=== PATIENT | female | born 1940 | race Caucasian/White ===

== ENCOUNTER 2016-10-06 08:49 | Emergency (ER) | payer OTHER ==
[~2016-10-06] VITALS: Ht 172.7 cm; Wt 73.7 kg
[~2016-10-06 08:49] MED LIST: ASPI81TA28 PO; ATEN-173 PO; BACL1TAB PO; CALC-354 PO; CLOP1TAB15 PO; EZET10TA47 PO; MULTCHW PO; PRAV40TA2 PO; PRLSR20 PO; RAMI5CAP PO
[2016-10-06 08:54] VITALS: TEMP 36.5; Ht 172.7 cm; Wt 73.7 kg
--- NOTE | 2016-10-06 09:29 | DIAGNOSTIC IMAGING REPORT ---
LEFT FOOT 3 VIEWS. HISTORY: left toe and foot pain a04b COMPARISON: None. FINDINGS: Transverse fracture through the proximal shaft of the proximal phalanx at the fourth toe. This demonstrates mild lateral angulation. Soft tissue swelling within the fourth toe. 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 No radiopaque foreign bodies. Plantar heel spur. Dorsal soft tissue swelling within the forefoot. IMPRESSION: Left fourth toe fracture. Electronically signed by: Ty William M.D. 10/06/2016 9:27 AM Dictated Date/Time: 10/06/2016 9:25 AM
[2016-10-06] MEDS ORDERED: CYCL10TA7 PO (09:39)
--- NOTE | 2016-10-06 10:00 | EMERGENCY ROOM VISIT NOTE ---
ED Visit Note First contact with patient: 09:26 CHIEF COMPLAINT: Left fourth toe pain HISTORY OF PRESENT ILLNESS: Patient is a 76-year-old white female who presents to the emergency department for evaluation of left fourth toe pain. She states that she was walking down the stairs in socks yesterday when her foot slipped. She states that she hit her foot on the post on the stairs and the post went between her third and her fourth toes, and she notes pain, swelling and bruising in her fourth toe. She applied ice last evening. She is able to bear weight keeping most of her weight back in her heel. She did not note any bleeding. She rates her discomfort a 6/10. REVIEW OF SYSTEMS: Review of systems as per HPI. All other systems reviewed were negative. At least 6 systems reviewed. PMH: Electronic medical records are reviewed and summarized as above/below. See Problem List. SOCIAL HISTORY: Patient lives at home. Smoker. PHYSICAL EXAM: Vital Signs: Reviewed Nurse's notes. There was some dried blood in the web space between the third and the fourth toe which was cleansed with saline, there was no obvious skin injury or laceration noted. The fourth toe is tender to palpation, swollen and slightly ecchymotic. Foot is neurovascularly intact. EMERGENCY DEPARTMENT COURSE: An X-Ray of the toe shows a fracture of the proximal phalanx of the left fourth toe. Patient was educated on chandler taping but does not feel comfortable to do that at this time. She is placed in a postoperative shoe. She declined prescription analgesia. Differential diagnosis includes fracture, dislocation, laceration, contusion, sprain, among others. ] LEFT FOOT 3 VIEWS. HISTORY: left toe and foot pain a04b COMPARISON: None. FINDINGS: Transverse fracture through the proximal shaft of the proximal phalanx at the fourth toe. This demonstrates mild lateral angulation. Soft tissue swelling within the fourth toe. 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 No radiopaque foreign bodies. Plantar heel spur. Dorsal soft tissue swelling within the forefoot. IMPRESSION: Left fourth toe fracture. Problem List Medical Problems: (1) Acute constipation Status: Resolved (2) Chronic Obstructive Pulmonary Disease, Unspecified Status: Chronic (3) Essential (Primary) Hypertension Status: Chronic (4) Gastro-Esophageal Reflux Disease Without Esophagitis Status: Chronic (5) Heart attack Status: Resolved (6) Pure Hypercholesterolemia Status: Chronic Surgical Problems: (1) H/O heart artery stent Status: Resolved (2) History of hysterectomy Status: Resolved (3) Presence Of Aortocoronary Bypass Graft Status: Resolved Current/Historical Medications Scheduled Aspirin (Aspirin Ec), 81 MG PO Q2D Atenolol (Tenormin), 12.5 MG PO BID Calcium Carbonate-Cholecalcife (Caltrate 600+D), 1 TAB PO QAM Clopidogrel (Plavix), 75 MG PO QAM Ezetimibe (Zetia), 10 MG PO DAILY AT 1200 Multiple Vitamins W/ Minerals (Centrum Silver), 1 TAB PO QAM Omeprazole (Prilosec), 20 MG PO QAM Pravastatin Sodium (Pravastatin Sodium), 40 MG PO HS Ramipril (Ramipril), 5 MG PO QAM Scheduled PRN Cyclobenzaprine HCl (Cyclobenzaprine HCl), 10 MG PO TID PRN for Muscle Spasms Allergies Coded Allergies: No Known Allergies (Verified , `, 10/06/16) Vital Signs Date Time Temp Pulse Resp B/P Pulse Ox O2 Delivery O2 Flow Rate FiO2 10/06/16 10:20 70 18 143/78 98 Room Air 10/06/16 08:54 36.5 62 16 145/73 95 Room Air Departure Information Impression Primary Impression: Toe fracture, left Referrals Jasson Denney M.D. (PCP) Patient Instructions My [facility] Additional Instructions Acetaminophen(Tylenol) may be used for fever or pain. Use 1000mg every six hours as needed. Avoid using more than 3000mg in a 24 hour period. This medication can be taken if you need to drive, work, or perform activities which may be dangerous when taking narcotic pain medication. Ice compresses for 20 minutes at a time four times daily for 2-3 days. Use the postoperative shoe as instructed. Rest and elevate your injury. Continue current medications. Return to the ER immediately for any numbness, tingling, severe pain, extreme swelling in the extremity or as needed. Follow-up with your primary care provider or with orthopedic surgery for further care and management if you to not feel that your symptoms are improving.
[2016-10-06 10:20] VITALS: BP 143/78; PULSE 70; O2SAT 98
--- NOTE | 2016-10-06 10:20 | EMERGENCY ROOM VISIT NOTE ---
ED Visit Note First contact with patient: 09:26 76-year-old female with pain in her left foot was fully evaluated by Nava Gomez PA-C. Please see her note. I also independently evaluated the patient.
== END 2016-10-06 10:20 | disposition home or self-care (01) ==
LOC: C.EDB 08:50 → C.EDA 10:20
DX: S92.512A Displaced fracture of proximal phalanx of left lesser toe(s), initial encounter for closed fracture (principal); W22.8XXA Striking against or struck by other objects, initial encounter; I10 Essential (primary) hypertension; E78.00 Pure hypercholesterolemia, unspecified; J44.9 Chronic obstructive pulmonary disease, unspecified; K21.9 Gastro-esophageal reflux disease without esophagitis; F17.200 Nicotine dependence, unspecified, uncomplicated; Z98.61 Coronary angioplasty status; Z95.1 Presence of aortocoronary bypass graft; Z90.710 Acquired absence of both cervix and uterus; Z79.82 Long term (current) use of aspirin; Z79.899 Other long term (current) drug therapy

== ENCOUNTER 2019-07-07 10:30 | Inpatient (IN) ==
[2019-07-07] MEDS ORDERED: ONDANSETRON INJ 2 MG/ML 2 ML VIAL IV STA (10:41)
[2019-07-07] MEDS ORDERED: MoRPHine SULFATE 4 MG/ML 1 ML CARP\\VIAL IV STA (10:41)
[2019-07-07 10:49] LABS: Basophils # (auto) 0.04 K/uL (0-0.2); Basophils % (auto) 0.4 %; Eosinophils # (auto) 0.29 K/uL (0-0.5); Eosinophils % (auto) 2.9 %; Hematocrit (blood only) 39.7 % (37-47); Hemoglobin 13.2 g/dL (12.0-16.0); Immature Granulocytes # (auto) 0.03 K/uL (0.00-0.02); Immature Granulocytes % (auto) 0.3 %; Lymphocytes # (auto) 1.67 K/uL (1.2-3.4); Lymphocytes % (auto) 16.7 %; Mean Corpuscular Hemoglobin 30.1 pg (25-34); Mean Corpuscular Hgb Conc 33.2 g/dL (32-36); Mean Corpuscular Volume 90.6 fL (80-100); Mean Platelet Volume 10.4 fL (7.4-10.4); Monocytes # (auto) 0.66 K/uL (0.11-0.59); Monocytes % (auto) 6.6 %; Neutrophils # (auto) 7.32 K/uL (1.4-6.5); Neutrophils % (auto) 73.1 %; Platelet Count 227 K/uL (130-400); RDW Coefficient of Variation 14.2 % (11.5-14.5); Red Blood Count 4.38 M/uL (4.2-5.4); White Blood Count 10.01 K/uL (4.8-10.8)
[2019-07-07 11:06] LABS: Albumin Level 3.7 gm/dl (3.4-5.0); BUN Creatinine Ratio 18.6 (10-20); Calcium 9.6 mg/dl (8.5-10.1); Creatinine Clr Calc Pharmacy 37.6 ml/min; Est GFR (African American) 50.8; Est GFR (Non-African American) 43.8; Potassium 4.2 mmol/L (3.5-5.1)
[2019-07-07 11:08] LABS: Bilirubin,Total 0.3 mg/dl (0.2-1); Globulin 3.8 gm/dl (2.5-4.0); Total Protein 7.5 gm/dl (6.4-8.2)
[2019-07-07] MEDS ORDERED: SODIUM CHLORIDE 0.9% 1000ML 1,000 ML IV ONE (11:09)
[2019-07-07] MEDS ORDERED: MoRPHine SULFATE 4 MG/ML 1 ML CARP\\VIAL IV PRN (11:09)
[2019-07-07] MEDS ORDERED: OPTIRAY 320 125ml IV PRN (11:50)
[2019-07-07] MEDS ORDERED: ESMOLOL / NSS 2,500 MG/250 ML BAG IV SCH (11:53)
[2019-07-07] MEDS ORDERED: SODIUM CHLORIDE 0.9% 250 ML IV PRN ×2 (12:01→12:09)
--- NOTE | 2019-07-07 12:10 | CT Scan Report ---
CT ANGIOGRAPHY CHEST WITHOUT AND WITH CONTRAST CLINICAL HISTORY: Chest and abdominal pain. Possible aortic dissection. COMPARISON STUDY: No previous studies for comparison. TECHNIQUE: Unenhanced images were obtained to the thorax. CT angiography was then performed a dynamic helical fashion during intravenous administration of 120 cc of Optiray 320. MIP images were acquired A dose lowering technique was utilized adhering to the principles of ALARA. CT DOSE: FINDINGS: Thyroid: Imaged portions of the thyroid gland are normal in appearance. Thoracic aorta: There is no evidence of acute thoracic aortic hematoma. There are no intimal flaps to indicate thoracic aortic dissection. Pulmonary vasculature: The pulmonary trunk is normal in caliber. There are no central filling defects identified to suggest pulmonary embolus. Note that this examination was not protocoled for the evalu ation of pulmonary emboli. HEART: There are coronary artery calcifications. There is no significant pericardial effusion. Lungs and pleural spaces: There is no evidence of pneumothorax. There is evidence for pulmonary emphy sema. There is minimal dependent atelectasis. There are no suspicious pulmonary masses. There are a f ew scattered pulmonary micronodules. In addition there is a solid 3 mm left lower lobe pulmonary nodu le. In a low-risk patient, no further follow-up is indicated Mediastinum: There is no evidence of mediastinal lymphadenopathy Evelin: There is no evidence of pathologic hilar adenopathy Axilla: There is no evidence of pathologic axillary lymphadenopathy Upper abdomen: There is a large left-sided retroperitoneal hemorrhage. This is secondary to a ruptur ed abdominal aortic aneurysm which will be discussed in a separate CT scan report of the abdomen and pelvis. Skeletal structures: There are no lytic or blastic osseous lesions. IMPRESSION: 1. Large left-sided retroperitoneal hematoma. This is secondary to a ruptured abdominal aortic aneury sm. This finding will be discussed in a separate CT scan report of the abdomen and pelvis. 2. No evidence of thoracic aortic aneurysm or dissection 3. Hiatal hernia 4. No evidence of acute pulmonary embolism. 5. Pulmonary emphysema ACT 112: Negative or not required by law. Electronically signed by: Santosh Myles M.D. 07/07/2019 12:09 PM
[2019-07-07] MEDS ORDERED: HEPARIN (PORCINE) 1000 UNIT/ML 10 ML (CATH LAB USE ONLY) ONE (12:15)
[2019-07-07] MEDS ORDERED: GELATIN SPONGE SZ 100 ONE (12:15)
[2019-07-07] MEDS ORDERED: THROMBIN 5000 UNITS KIT ONE (12:15)
[2019-07-07] MEDS ORDERED: CEFAZOLIN 250 MG/ML 1 GM VIAL ONE ×2 (12:15→13:16)
--- NOTE | 2019-07-07 12:16 | CT Scan Report ---
CT ANGIOGRAPHY OF THE ABDOMEN AND PELVIS CLINICAL HISTORY: pain L sided worse than R,+smoker, LA>3 COMPARISON STUDY: No previous studies for comparison. TECHNIQUE: Helical axial images of the abdomen and pelvis were obtained during arterial phase followi ng intravenous injection 120 cc Optiray 320 IV. Sagittal and coronal reconstructions were viewed as w ell as maximal intensity projections on an independent 3-D workstation. Automated exposure control wa s utilized for the study. A dose lowering technique was utilized adhering to the principles of ALARA . FINDINGS: Please note that the CTA of the chest will be reported separately. Note is made of a large bilobed infrarenal abdominal aortic aneurysm with rupture. The largest component of the aneurysm analisa ures 7.7 x 6.6 cm. Aneurysmal dilatation involves the near entirety of the infrarenal abdominal aorta and begins 8 mm distal to the takeoff of an accessory right renal artery. 2 right and 2 left renal a rteries are present. Extensive plaque at the origin of several renal arteries make evaluation for frantz nosis difficult. A large left retroperitoneal hematoma is noted. There is no active extravasation. Th e hematoma displaces the left kidney and extends from the hemidiaphragms to the upper pelvis. A linea r tract of contrast within the left posterolateral aspect of the aneurysm sac may reflect the site fo r leak. There is tortuosity of the infrarenal abdominal aorta just distal to the takeoff of the renal arteries. There is moderate bilateral iliac plaque without significant stenosis. The caliber of the bilateral common iliac arteries is normal. The bilateral common femoral arteries are patent. Arterial phase images of the liver, spleen, adrenal glands and pancreas are unremarkable although the left adrenal gland is displaced by hemorrhage. There is a 5 mm right renal calculus. Sigmoid diverti culosis is noted without evidence for acute diverticulitis. There are no suspicious osseous lesions. IMPRESSION: Ruptured infrarenal abdominal aortic aneurysm, measuring 7.7 x 6.6 cm, with extensive le ft retroperitoneal hemorrhage. Aneurysmal dilatation involves the near entirety of the infrarenal abd ominal aorta and begins 8 mm distal to the takeoff of an accessory right renal artery. Tortuosity of the abdominal aorta at this level. Urgent Vascular surgery consultation is recommended. Findings disc ussed with Dr. Corral at time of dictation. ACT 112: Negative or not required by law. Electronically signed by: Lyndon Shah M.D. 07/07/2019 12:15 PM
--- NOTE | 2019-07-07 12:23 | Anesthesiology Consultation ---
Date of Service July 07, 2019 Assessment & Plan ASA [id number] Proposed Anesthesia Anesthesia Type: General Anesthesia Line Insertion: Arterial line and Central Venous Catheter Additional Comments: emergency case. pt unconcious. no time to contact famiy History Surgery Operation Date: 07/07/19 11:55 Proposed Procedures p Endovascular Aneurysm Repair - Richard Cabrera MD Height/Weight Height: 5 ft 7 in Weight: 71.1 kg Allergies Allergy/AdvReac Type Severity Reaction Status Date / Time No Known Allergies Allergy Unknown ` Verified 07/07/19 10:57 Medications Home Medications Medication Instructions Recorded Confirmed Last Taken alendronate 70 mg PO DAMON 07/07/19 07/07/19 Unknown aspirin 81 mg PO DAILY 07/07/19 07/07/19 Unknown atenolol 12.5 mg PO BID 07/07/19 07/07/19 Unknown clopidogrel 75 mg PO DAILY 07/07/19 07/07/19 Unknown cyclobenzaprine 10 mg PO TID PRN 07/07/19 07/07/19 Unknown duloxetine 30 mg PO DAILY 07/07/19 07/07/19 Unknown ezetimibe 10 mg PO DAILY 07/07/19 07/07/19 Unknown hcganftzofqx-nxbw-ccelb acid 1 tab PO DAILY 07/07/19 07/07/19 Unknown [Centrum Women] pantoprazole 20 mg PO DAILY 07/07/19 07/07/19 Unknown pravastatin 40 mg PO HS 07/07/19 07/07/19 Unknown ramipril 5 mg PO DAILY 07/07/19 07/07/19 Unknown Active Medications Generic Name Dose Route Start Last Admin Trade Name Freq PRN Reason Stop Dose Admin Esmolol HCl 2,500 mg in 250 mls @ 0 mls/hr 07/07/19 11:53 07/07/19 12:15 Brevibloc IV 08/06/19 11:52 0 mcg/kg/min .Q0M LEON 0 mls/hr Titration Protocol 0 MCG/KG/MIN Ioversol 120 ml 07/07/19 11:50 07/07/19 11:50 Optiray 320 125ml IV 07/11/19 11:49 120 ml ONCE PRN Administration Interaction Checking Past Medical History Medical History Heart attack (Resolved) Past Surgical History Surgical History H/O heart artery stent (Resolved) History of hysterectomy (Resolved) Social History Smoking Status: Current every day smoker Review of Systems unable to obtain. emergency. pt unconcious Physical Exam Vital Signs Last Vital Signs Temp 36.2 C L 07/07/19 10:38 Pulse 67 07/07/19 11:31 Resp 16 07/07/19 11:31 BP 94/58 L 07/07/19 11:30 Pulse Ox 97 07/07/19 11:31 Constitutional + acute distress and + altered mental status ENMT Mouth: + dentures Mallampati Class: Other (Unable to assess) Respiratory + respiratory distress Cardiovascular Rate/Rhythm: regular rate Testing Laboratory Results 07/07/19 10:00 07/07/19 10:00
[2019-07-07] MEDS ORDERED: LIDOCAINE HCL 1% 20 ML VIAL ONE (12:27)
[2019-07-07] MEDS ORDERED: fentaNYL citrate 100 MCG/2 ML VIAL ONE ×2 (12:28→14:16)
[2019-07-07] MEDS ORDERED: MIDAZOLAM HCL 1 MG/ML 2ML VIAL ONE ×2 (12:34→14:51)
--- NOTE | 2019-07-07 12:48 | Emergency Department Note ---
Entered by Markell Mcallister acting as a scribe for Nael Corral MD History of Present Illness General Chief complaint: Flank Pain Time Seen by Provider: 07/07/19 10:33 Source: patient Limitations: no limitations History of Present Illness Onset (ago): hour(s) 4 Location: back Radiation: extremity (bilateral lower) Pain Consistency: + constant Maximum Pain Intensity: 10 Quality: + sharp Associated symptoms: + denies other symptoms (blood in urine, blood in stool, falls, trauma) and + diaphoresis; no fever/chills Treatments prior to arrival: none The patient is a 79 year-old white female w/ PMHx heart attack, s/p stent placement, s/p hysterectomy, who presents to the ED w/ CC of constant and sharp low back pain beginning 4 hours ago. The patient states the pain radiates to her legs. She states she has had back pain before but states it has never been this severe. She notes she produced a bowel movement this morning. She states she has been sweating. She notes she did not take any pain medications. The patient denies recent falls, trauma, urinary symptoms, blood in urine, blood in stool, fevers, and chills. She notes she smokes. She states she takes blood thinners. Home Medications Home Medications Medication Instructions Recorded Confirmed Type alendronate 70 mg PO DAMON 07/07/19 07/07/19 History aspirin 81 mg PO DAILY 07/07/19 07/07/19 History atenolol 12.5 mg PO BID 07/07/19 07/07/19 History clopidogrel 75 mg PO DAILY 07/07/19 07/07/19 History cyclobenzaprine 10 mg PO TID PRN 07/07/19 07/07/19 History duloxetine 30 mg PO DAILY 07/07/19 07/07/19 History ezetimibe 10 mg PO DAILY 07/07/19 07/07/19 History rzqikzujrxlr-efbg-fsvrf acid 1 tab PO DAILY 07/07/19 07/07/19 History [Centrum Women] pantoprazole 20 mg PO DAILY 07/07/19 07/07/19 History pravastatin 40 mg PO HS 07/07/19 07/07/19 History ramipril 5 mg PO DAILY 07/07/19 07/07/19 History Allergies Allergy/AdvReac Type Severity Reaction Status Date / Time No Known Allergies Allergy Unknown ` Verified 07/07/19 10:57 Past Med/Surg History Medical History Heart attack (Resolved) Surgical History H/O heart artery stent (Resolved) History of hysterectomy (Resolved) Social History Feels Safe at Home: Yes Smoking Status: Current every day smoker Review of Systems See HPI for pertinent positives & negatives. and A total of 10 systems reviewed and were otherwise negative Physical Exam Vital Signs Vital Signs - 24 hr 07/07/19 10:34 07/07/19 10:38 07/07/19 10:40 Temperature 36.2 C L Temperature Source Oral Pulse Rate 68 69 68 Pulse Rate [Apical] Pulse Rate from SpO2 Sensor 68 69 Respiratory Rate 18 18 17 Blood Pressure 140/82 140/82 Blood Pressure [Right Arm] Blood Pressure Mean 97 101 Blood Pressure Mean [Right Arm] Pulse Oximetry 100 98 100 Oxygen Delivery Method Room Air Room Air Room Air Oxygen Flow Rate Fraction of Inspired Oxygen SaO2/FiO2 Ratio Sepsis Recent Fever Within 48 Hours No Sepsis New/Unexplained Change in Mental Status No Sepsis Action Taken by Nursing No Action Required 07/07/19 10:47 07/07/19 11:00 07/07/19 11:01 Temperature Temperature Source Pulse Rate 71 71 Pulse Rate [Apical] Pulse Rate from SpO2 Sensor 71 Respiratory Rate 18 16 Blood Pressure 100/72 Blood Pressure [Right Arm] Blood Pressure Mean 77 Blood Pressure Mean [Right Arm] Pulse Oximetry 98 91 Oxygen Delivery Method Room Air Room Air Oxygen Flow Rate Fraction of Inspired Oxygen SaO2/FiO2 Ratio Sepsis Recent Fever Within 48 Hours Sepsis New/Unexplained Change in Mental Status Sepsis Action Taken by Nursing 07/07/19 11:29 07/07/19 11:30 07/07/19 11:31 Temperature Temperature Source Pulse Rate 72 73 67 Pulse Rate [Apical] Pulse Rate from SpO2 Sensor 77 73 66 Respiratory Rate 19 17 16 Blood Pressure 94/56 L 94/58 L Blood Pressure [Right Arm] Blood Pressure Mean 61 63 Blood Pressure Mean [Right Arm] Pulse Oximetry 91 96 97 Oxygen Delivery Method Room Air Room Air Room Air Oxygen Flow Rate Fraction of Inspired Oxygen SaO2/FiO2 Ratio Sepsis Recent Fever Within 48 Hours Sepsis New/Unexplained Change in Mental Status Sepsis Action Taken by Nursing 07/07/19 11:53 07/07/19 12:00 07/07/19 12:01 Temperature Temperature Source Pulse Rate 67 68 68 Pulse Rate [Apical] Pulse Rate from SpO2 Sensor 68 69 68 Respiratory Rate 13 16 18 Blood Pressure 128/65 139/67 Blood Pressure [Right Arm] Blood Pressure Mean 86 97 Blood Pressure Mean [Right Arm] Pulse Oximetry 99 99 99 Oxygen Delivery Method Nasal Cannula Nasal Cannula Nasal Cannula Oxygen Flow Rate 2 2 2 Fraction of Inspired Oxygen SaO2/FiO2 Ratio Sepsis Recent Fever Within 48 Hours Sepsis New/Unexplained Change in Mental Status Sepsis Action Taken by Nursing 07/07/19 12:09 07/07/19 12:15 07/07/19 12:16 Temperature Temperature Source Pulse Rate 70 68 70 Pulse Rate [Apical] Pulse Rate from SpO2 Sensor 68 Respiratory Rate 21 19 21 Blood Pressure 114/57 L 57/36 L 51/36 L Blood Pressure [Right Arm] Blood Pressure Mean 73 42 41 Blood Pressure Mean [Right Arm] Pulse Oximetry 96 99 Oxygen Delivery Method Nasal Cannula Nasal Cannula Oxygen Flow Rate 2 2 Fraction of Inspired Oxygen SaO2/FiO2 Ratio Sepsis Recent Fever Within 48 Hours Sepsis New/Unexplained Change in Mental Status Sepsis Action Taken by Nursing 07/07/19 12:17 07/07/19 15:20 Temperature 33.6 C L Temperature Source Rectal Pulse Rate 72 Pulse Rate [Apical] 78 Pulse Rate from SpO2 Sensor 71 Respiratory Rate 18 14 Blood Pressure 62/30 L Blood Pressure [Right Arm] 180/99 H Blood Pressure Mean 36 Blood Pressure Mean [Right Arm] 126 Pulse Oximetry 100 92 Oxygen Delivery Method Nasal Cannula Mechanical Vent Oxygen Flow Rate 2 Fraction of Inspired Oxygen 40 SaO2/FiO2 Ratio 230 Sepsis Recent Fever Within 48 Hours Sepsis New/Unexplained Change in Mental Status Sepsis Action Taken by Nursing GENERAL: Well nourished, Uncomfortable in appearance, and pain. Moderate distress. EYE EXAM: Normal conjunctiva. PERRL, no anisocoria and EOM's grossly intact w/o pain. OROPHARYNX: Moist mucous membranes. Normal dentition. NECK: Supple, no nuchal rigidity, no adenopathy, non-tender. no signs of meningismus. LUNGS: Clear to auscultation. Normal chest wall mechanics. HEART: NSR, no MRG. ABDOMEN: Abdomen soft, normo-active bowel sounds, no masses. Moderate diffuse abdominal pain. Mild guarding. No rebound. BACK: Left sided flank pain. SKIN: No rashes and no bruising. UPPER EXTREMITIES: Upper extremities are grossly normal. LOWER EXTREMITIES: No pitting edema. No calf pain. NEURO EXAM: Cranial nerves II-XII grossly intact, normal speech. Moves all 4 extremities on command w/o issue. Course Course 1042: The patient was evaluated in room A2, and a complete history and physical examination were performed. 1045: Continuous Cardiac Monitoring: An order was placed for continuous cardiac monitoring. The monitor shows a rate of 71 with a sinus rhythm. 1152: Dr. Shah - Radiology informed me the patient has a ruptured aneurysm. 1200: I spoke to Dr. Cabrera - vascular surgery. He states he can take the patient to the OR. 1204: I reevaluated the patient. She consented for blood. I talked to her about the urgency for the surgery. The patient will get two units blood now. Esmolol drip is getting started. 1241: The patient has gone to the OR. 1247: I discussed the patient's case with Pamela Timmons. Dr. Little - [facility] Hospitalist will evaluate the patient for further management. Administered Medications Esmolol HCl (Brevibloc) 2,500 mg in 250 mls @ 0 mls/hr IV .Q0M LEON; Protocol Stop: 08/06/19 11:52 Last Titration: 07/07/19 12:15 Dose: 0 mcg/kg/min, 0 mls/hr Documented by: [id number] Admin: 07/07/19 12:12 Dose: 50 mcg/kg/min, 21.3 mls/hr Documented by: [id number] Cosigned by: [id number] Propofol (Diprivan) 1,000 mg in 100 mls @ 2.133 mls/hr IV .Q24H LEON; Protocol Stop: 07/10/19 15:50 Last Admin: 07/07/19 16:18 Dose: 5 mcg/kg/min, 2.1 mls/hr Documented by: [id number] Cosigned by: [id number] Iodixanol (Visipaque) 260 ml IV UD PRN PRN Reason: Radiology Use Stop: 07/11/19 14:36 Last Admin: 07/07/19 14:38 Dose: 260 ml Documented by: [id number] Ioversol (Optiray 320 125ml) 120 ml IV ONCE PRN PRN Reason: Interaction Checking Stop: 07/11/19 11:49 Last Admin: 07/07/19 11:50 Dose: 120 ml Documented by: [id number] Morphine Sulfate (Morphine Sulfate) 1 - 4 mg IV Q2H PRN PRN Reason: Severe Pain Stop: 07/21/19 15:31 Last Admin: 07/07/19 16:23 Dose: 2 mg Documented by: [id number] Discontinued Medications Cefazolin Sodium (Ancef) Confirm Administered Dose 1,000 mg .ROUTE .STK-MED ONE Stop: 07/07/19 12:16 Last Admin: 07/07/19 15:01 Dose: 1,000 mg Documented by: [id number] Gelatin (Surgifoam Sponge 100 (Large)) Confirm Administered Dose 2 ea .ROUTE .STK-MED ONE Stop: 07/07/19 12:16 Last Admin: 07/07/19 15:02 Dose: Not Given Documented by: [id number] Heparin Sodium (Porcine) (Heparin Iv Bolus (Abrading Machine Tender Use Only)) Confirm Administered Dose 10,000 units .ROUTE .STK-MED ONE Stop: 07/07/19 12:16 Last Admin: 07/07/19 15:03 Dose: Not Given Documented by: [id number] Heparin Sodium/Sodium Chloride (Heparin/Nss 1000 Unit/500ml Flush Bag) Confirm Administered Dose 3,000 units IV .STK-MED ONE Stop: 07/07/19 13:50 Last Admin: 07/07/19 14:36 Dose: 200 units Documented by: [id number] Heparin Sodium/Sodium Chloride (Heparin/Nss 1000 Unit/500ml Flush Bag) Confirm Administered Dose 1,000 units IV .STK-MED ONE Stop: 07/07/19 15:00 Last Admin: 07/07/19 15:02 Dose: 1,000 units Documented by: [id number] Sodium Chloride (Nss 1000ml) 1,000 mls @ 999 mls/hr IV .Q1H1M ONE Stop: 07/07/19 12:09 Last Infusion: 07/07/19 16:19 Dose: 0 mls/hr Documented by: [id number] Admin: 07/07/19 11:33 Dose: 999 mls/hr Documented by: [id number] Morphine Sulfate (Morphine Sulfate) 4 mg IV NOW STA Stop: 07/07/19 10:42 Last Admin: 07/07/19 10:51 Dose: 4 mg Documented by: [id number] Ondansetron HCl (Zofran) 4 mg IV NOW STA Stop: 07/07/19 10:42 Last Admin: 07/07/19 10:51 Dose: 4 mg Documented by: [id number] Thrombin (Recothrom Kit) Confirm Administered Dose 10,000 units .ROUTE .STK-MED ONE Stop: 07/07/19 12:16 Last Admin: 07/07/19 15:02 Dose: Not Given Documented by: [id number] Critical Care Time Critical Care Time: Yes Total Critical Care Time: 95 I have personally spent 95 minutes of critical care time in the direct management of this patient. This includes bedside care, interpretation of diagnostic studies, and testing, discussion with consultants, patient, and family members, and other required patient management activities. This 95 minutes is in excess of all separately billable procedures. Medical Decision Making Differential Diagnosis Differential diagnoses includes but is not limited to gastritis, peptic ulcer disease, GERD, gallbladder disease, pancreatitis, small bowel obstruction, acute coronary syndrome, pericarditis, ischemic bowel, irritable bowel disease, irritable bowel syndrome, appendicitis, diverticulitis, malignancy, hernia, urinary tract infection, torsion, perforation, trauma, infectious. Medical Records Attestation: I reviewed the patient's medical records. Home Medications Current Medication List: was personally reviewed by me Laboratory Data Attestation: I reviewed the patient's lab results. Result diagrams: 07/07/19 15:57 07/07/19 15:57 Lab Results 07/07/19 07/07/19 07/07/19 Range/Units 10:00 10:00 10:00 WBC 10.01 (4.8-10.8) K/uL RBC 4.38 (4.2-5.4) M/uL Hgb 13.2 (12.0-16.0) g/dL POC Hgb (12.0-16.0) g/dl Hct 39.7 (37-47) % POC Hct (37-47) % MCV 90.6 (80-100) fL MCH 30.1 (25-34) pg MCHC 33.2 (32-36) g/dL RDW Std Deviation 47.0 H (36.4-46.3) fL RDW Coeff of Adalid 14.2 (11.5-14.5) % Plt Count 227 (130-400) K/uL MPV 10.4 (7.4-10.4) fL Immature Gran % (Auto) 0.3 % Neut % (Auto) 73.1 % Lymph % (Auto) 16.7 % [place] % (Auto) 6.6 % Eos % (Auto) 2.9 % Baso % (Auto) 0.4 % Immature Gran # (Auto) 0.03 H (0.00-0.02) K/uL Neut # (Auto) 7.32 H (1.4-6.5) K/uL Lymph # (Auto) 1.67 (1.2-3.4) K/uL [place] # (Auto) 0.66 H (0.11-0.59) K/uL Eos # (Auto) 0.29 (0-0.5) K/uL Baso # (Auto) 0.04 (0-0.2) K/uL POC pH (7.35-7.45) POC pCO2 (35-46) mmHg POC pO2 (80-95) mmHg POC HCO3 (19-24) vinod/L POC Total CO2 (24-31) mmol/L POC Base Excess (-9-1.8) vinod/L POC Sodium (135-144) mmol/L Sodium 141 (136-145) mmol/L POC Potassium (3.3-5.0) mmol/L Potassium 4.2 (3.5-5.1) mmol/L Chloride 111 H (98-107) mmol/L Carbon Dioxide 26 (21-32) mmol/L Anion Gap 4.0 (3-11) BUN 22 H (7-18) mg/dl Creatinine 1.18 (0.6-1.2) mg/dl Est Cr Clr Drug Dosing 37.6 ml/min Est GFR ( Amer) 50.8 Est GFR (Non-Af Amer) 43.8 BUN/Creatinine Ratio 18.6 (10-20) Glucose 179 H (70-99) mg/dl Lactate (0.4-2.0) mmol/L Calcium 9.6 (8.5-10.1) mg/dl Total Bilirubin 0.3 (0.2-1) mg/dl AST 14 L (15-37) U/L ALT 19 (12-78) U/L Alkaline Phosphatase 72 (45-117) U/L Troponin I < 0.015 (0-0.045) ng/ml Total Protein 7.5 (6.4-8.2) gm/dl Albumin 3.7 (3.4-5.0) gm/dl Globulin 3.8 (2.5-4.0) gm/dl Albumin/Globulin Ratio 1.0 (0.9-2) Lipase 152 (73-393) U/L Blood Type Blood Type Recheck Antibody Screen Crossmatch 07/07/19 07/07/19 07/07/19 Range/Units 10:52 12:24 12:55 WBC (4.8-10.8) K/uL RBC (4.2-5.4) M/uL Hgb (12.0-16.0) g/dL POC Hgb (12.0-16.0) g/dl Hct (37-47) % POC Hct (37-47) % MCV (80-100) fL MCH (25-34) pg MCHC (32-36) g/dL RDW Std Deviation (36.4-46.3) fL RDW Coeff of Adalid (11.5-14.5) % Plt Count (130-400) K/uL MPV (7.4-10.4) fL Immature Gran % (Auto) % Neut % (Auto) % Lymph % (Auto) % [place] % (Auto) % Eos % (Auto) % Baso % (Auto) % Immature Gran # (Auto) (0.00-0.02) K/uL Neut # (Auto) (1.4-6.5) K/uL Lymph # (Auto) (1.2-3.4) K/uL [place] # (Auto) (0.11-0.59) K/uL Eos # (Auto) (0-0.5) K/uL Baso # (Auto) (0-0.2) K/uL POC pH (7.35-7.45) POC pCO2 (35-46) mmHg POC pO2 (80-95) mmHg POC HCO3 (19-24) vinod/L POC Total CO2 (24-31) mmol/L POC Base Excess (-9-1.8) vinod/L POC Sodium (135-144) mmol/L Sodium (136-145) mmol/L POC Potassium (3.3-5.0) mmol/L Potassium (3.5-5.1) mmol/L Chloride (98-107) mmol/L Carbon Dioxide (21-32) mmol/L Anion Gap (3-11) BUN (7-18) mg/dl Creatinine (0.6-1.2) mg/dl Est Cr Clr Drug Dosing ml/min Est GFR ( Amer) Est GFR (Non-Af Amer) BUN/Creatinine Ratio (10-20) Glucose (70-99) mg/dl Lactate 3.3 H* (0.4-2.0) mmol/L Calcium (8.5-10.1) mg/dl Total Bilirubin (0.2-1) mg/dl AST (15-37) U/L ALT (12-78) U/L Alkaline Phosphatase (45-117) U/L Troponin I (0-0.045) ng/ml Total Protein (6.4-8.2) gm/dl Albumin (3.4-5.0) gm/dl Globulin (2.5-4.0) gm/dl Albumin/Globulin Ratio (0.9-2) Lipase (73-393) U/L Blood Type A Negative Blood Type Recheck A Negative Antibody Screen NEGATIVE Crossmatch See Detail 07/07/19 07/07/19 Range/Units 13:17 14:37 WBC (4.8-10.8) K/uL RBC (4.2-5.4) M/uL Hgb (12.0-16.0) g/dL POC Hgb 6.8 L* 8.8 L (12.0-16.0) g/dl Hct (37-47) % POC Hct 20 L* 26 L (37-47) % MCV (80-100) fL MCH (25-34) pg MCHC (32-36) g/dL RDW Std Deviation (36.4-46.3) fL RDW Coeff of Adalid (11.5-14.5) % Plt Count (130-400) K/uL MPV (7.4-10.4) fL Immature Gran % (Auto) % Neut % (Auto) % Lymph % (Auto) % [place] % (Auto) % Eos % (Auto) % Baso % (Auto) % Immature Gran # (Auto) (0.00-0.02) K/uL Neut # (Auto) (1.4-6.5) K/uL Lymph # (Auto) (1.2-3.4) K/uL [place] # (Auto) (0.11-0.59) K/uL Eos # (Auto) (0-0.5) K/uL Baso # (Auto) (0-0.2) K/uL POC pH 7.23 L 7.20 L (7.35-7.45) POC pCO2 45 53 H (35-46) mmHg POC pO2 > 420 H 401 H (80-95) mmHg POC HCO3 19 21 (19-24) vinod/L POC Total CO2 20 L 22 L (24-31) mmol/L POC Base Excess -9.0 -7.0 (-9-1.8) vinod/L POC Sodium 141 139 (135-144) mmol/L Sodium (136-145) mmol/L POC Potassium 3.8 4.4 (3.3-5.0) mmol/L Potassium (3.5-5.1) mmol/L Chloride (98-107) mmol/L Carbon Dioxide (21-32) mmol/L Anion Gap (3-11) BUN (7-18) mg/dl Creatinine (0.6-1.2) mg/dl Est Cr Clr Drug Dosing ml/min Est GFR ( Amer) Est GFR (Non-Af Amer) BUN/Creatinine Ratio (10-20) Glucose (70-99) mg/dl Lactate (0.4-2.0) mmol/L Calcium (8.5-10.1) mg/dl Total Bilirubin (0.2-1) mg/dl AST (15-37) U/L ALT (12-78) U/L Alkaline Phosphatase (45-117) U/L Troponin I (0-0.045) ng/ml Total Protein (6.4-8.2) gm/dl Albumin (3.4-5.0) gm/dl Globulin (2.5-4.0) gm/dl Albumin/Globulin Ratio (0.9-2) Lipase (73-393) U/L Blood Type Blood Type Recheck Antibody Screen Crossmatch Imaging Data Radiologist's Impression: Radiology results as stated below per my review and the radiologist's interpretation: CT ANGIOGRAPHY OF THE ABDOMEN AND PELVIS CLINICAL HISTORY: pain L sided worse than R,+smoker, LA>3 COMPARISON STUDY: No previous studies for comparison. TECHNIQUE: Helical axial images of the abdomen and pelvis were obtained during arterial phase following intravenous injection 120 cc Optiray 320 IV. Sagittal and coronal reconstructions were viewed as well as maximal intensity projections on an independent 3-D workstation. Automated exposure control was utilized for the study. A dose lowering technique was utilized adhering to the principles of ALARA. FINDINGS: Please note that the CTA of the chest will be reported separately. Note is made of a large bilobed infrarenal abdominal aortic aneurysm with rupture. The largest component of the aneurysm measures 7.7 x 6.6 cm. Aneurysmal dilatation involves the near entirety of the infrarenal abdominal aorta and begins 8 mm distal to the takeoff of an accessory right renal artery. 2 right and 2 left renal arteries are present. Extensive plaque at the origin of several renal arteries make evaluation for stenosis difficult. A large left retroperitoneal hematoma is noted. There is no active extravasation. The hematoma displaces the left kidney and extends from the hemidiaphragms to the upper pelvis. A linear tract of contrast within the left posterolateral aspect of the aneurysm sac may reflect the site for leak. There is tortuosity of the infrarenal abdominal aorta just distal to the takeoff of the renal arteries. There is moderate bilateral iliac plaque without significant stenosis. The caliber of the bilateral common iliac arteries is normal. The bilateral common femoral arteries are patent. Arterial phase images of the liver, spleen, adrenal glands and pancreas are unremarkable although the left adrenal gland is displaced by hemorrhage. There is a 5 mm right renal calculus. Sigmoid diverticulosis is noted without evidence for acute diverticulitis. There are no suspicious osseous lesions. IMPRESSION: Ruptured infrarenal abdominal aortic aneurysm, measuring 7.7 x 6.6 cm, with extensive left retroperitoneal hemorrhage. Aneurysmal dilatation involves the near entirety of the infrarenal abdominal aorta and begins 8 mm distal to the takeoff of an accessory right renal artery. Tortuosity of the abdominal aorta at this level. Urgent Vascular surgery consultation is shannon mmended. Findings discussed with Dr. Corral at time of dictation. ACT 112: Negative or not required by law. Electronically signed by: Lyndon Shah M.D. 07/07/2019 12:[address] ANGIOGRAPHY CHEST WITHOUT AND WITH CONTRAST CLINICAL HISTORY: Chest and abdominal pain. Possible aortic dissection. COMPARISON STUDY: No previous studies for comparison. TECHNIQUE: Unenhanced images were obtained to the thorax. CT angiography was then performed a dynamic helical fashion during intravenous administration of 120 cc of Optiray 320. MIP images were acquired A dose lowering technique was utilized adhering to the principles of ALARA. CT DOSE: FINDINGS: Thyroid: Imaged portions of the thyroid gland are normal in appearance. Thoracic aorta: There is no evidence of acute thoracic aortic hematoma. There are no intimal flaps to indicate thoracic aortic dissection. Pulmonary vasculature: The pulmonary trunk is normal in caliber. There are no central filling defects identified to suggest pulmonary embolus. Note that this examination was not protocoled for the evaluation of pulmonary emboli. HEART: There are coronary artery calcifications. There is no significant pericardial effusion. Lungs and pleural spaces: There is no evidence of pneumothorax. There is evidence for pulmonary emphysema. There is minimal dependent atelectasis. There are no suspicious pulmonary masses. There are a few scattered pulmonary micronodules. In addition there is a solid 3 mm left lower lobe pulmonary nodule. In a low-risk patient, no further follow-up is indicated Mediastinum: There is no evidence of mediastinal lymphadenopathy Evelin: There is no evidence of pathologic hilar adenopathy Axilla: There is no evidence of pathologic axillary lymphadenopathy Upper abdomen: There is a large left-sided retroperitoneal hemorrhage. This is secondary to a ruptured abdominal aortic aneurysm which will be discussed in a separate CT scan report of the abdomen and pelvis. Skeletal structures: There are no lytic or blastic osseous lesions. IMPRESSION: 1. Large left-sided retroperitoneal hematoma. This is secondary to a ruptured abdominal aortic aneurysm. This finding will be discussed in a separate CT scan report of the abdomen and pelvis. 2. No evidence of thoracic aortic aneurysm or dissection 3. Hiatal hernia 4. No evidence of acute pulmonary embolism. 5. Pulmonary emphysema ACT 112: Negative or not required by law. Electronically signed by: Santosh Myles M.D. 07/07/2019 12:09 PM ECG Data Attestation: I personally reviewed and interpreted this ECG as follows: Rate (beats per minute): 71 ECG Intervals/blocks: + Normal QRS, + Normal QT, + Normal [place] and + Normal QT-c ECG [place]: + Left axis deviation ECG ST segments: + ST depression (subtle depression in lateral leads) and + T- wave inversions (anterior and high lateral leads) Comparison ECG Date: no prior available Blood Pressure Blood Pressure Findings: Elevated blood pressure Blood Pressure Disposition: further management by hospitalist JOSE Narrative The patient is a 79 year-old white female w/ PMHx heart attack, s/p stent placement, s/p hysterectomy, who presents to the ED w/ CC of constant and sharp low back pain beginning 4 hours ago. Patient was seen and evaluated the bedside. The patient did present with concern for some left-sided abdominal flank pain. Began sudden onset this morning. The patient is a prior history of smoking. Given the patient's acute onset smoking history as well as her pain out of proportion to exam I was concerned about the possibility of dissection versus mesenteric ischemia. No prior history of A. fib. The patient is currently on aspirin and Plavix due to a prior history of CAD status post stents. The patient did have blood work completed which was fairly unremarkable with exception of an elevated lactate. The patient did have CT angiography of the chest abdomen pelvis. I was called with concern that the patient does have a left-sided retroperitoneal hematoma and associated with ruptured AAA. I did speak immediately with the charge nurse in order to get the patient blood as well as an esmolol drip as needed for blood pressure and heart rate control. Patient was consented for blood uncrossed to be given immediately and I did discuss the gravity of the situation with the p atient as well as the patient's family member and stated that if this was not repaired right now the patient it would likely not be survivable. They understood.I did speak with the on-call vascular surgeon who currently looked at the CT imaging and agreed to take the patient to the OR. I did update the patient and explained the severity of the patient's situation. They are agreeable to the current plan of care. The patient was emergently taken to the operating room pending repair of her ruptured AAA. I did speak the on-call hospitalist agreed to further evaluate treat the patient and the patient would be admitted. Impression & Plan AAA (abdominal aortic aneurysm, ruptured), Abdominal pain, Retroperitoneal hematoma, Acidosis, lactic Discharge Plan Visit Data *Final* Discharge Date/Time: 07/07/19 12:20 Chief Complaint: Flank Pain ED Provider: Nael oCrral Discharge Problem: AAA (abdominal aortic aneurysm, ruptured), Abdominal pain, Retroperitoneal hematoma, Acidosis, lactic Patient Disposition: Still a Patient Discharge Instructions Interventions: ED Discharge Assessment Last Done: 07/07/19 12:20 Discharge Problem: Abdominal pain Qualifiers: Abdominal location: unspecified location Qualified Code(s): R10.9 - Unspecified abdominal pain The scribe's documentation has been prepared under my direction and personally reviewed by me in its entirety. I confirm that the note above accurately refl ects all work, treatment, procedures, and medical decision making performed by me.
[2019-07-07] MEDS ORDERED: PROPOFOL IV EMULSION 10 MG/ML 20 ML VIAL IV ONE (13:03)
[2019-07-07] MEDS ORDERED: ROCURONIUM BROMIDE 10 MG/ML 5 ML VIAL ONE (13:03)
[2019-07-07] MEDS ORDERED: SUCCINYLCHOLINE CHLORIDE 20 MG/ML 10 ML VIAL ONE (13:03)
[2019-07-07] MEDS ORDERED: ePHEDrine sulfate 50 MG/ML SYR ONE (13:03)
[2019-07-07] MEDS ORDERED: PHENYLEPHRINE HCL 10 MG/ML VIAL ONE ×2 (13:04→15:24)
[2019-07-07] MEDS ORDERED: HEPARIN SOD (PORCINE) 1000 UNIT/ML 10 ML VIAL ONE (13:17)
[2019-07-07] MEDS ORDERED: CALCIUM CHLORIDE 10% 10 ML SYR IV ONE (13:20)
[2019-07-07] MEDS ORDERED: VISIPAQUE IV PRN (14:37)
[2019-07-07 14:52] LABS: iSTAT Arterial Blood Gas HCO3 19 meg/L (19-24); iSTAT Arterial Blood Gas pCO2 45 mmHg (35-46); iSTAT Arterial Blood Gas pH 7.23 (7.35-7.45); iSTAT Arterial Blood Gas pO2 > 420 mmHg (80-95); iSTAT Carbon Dioxide 20 mmol/L (24-31); iSTAT Hematocrit 20 % (37-47); iSTAT Hemoglobin 6.8 g/dl (12.0-16.0); iSTAT Potassium 3.8 mmol/L (3.3-5.0); iSTAT Sodium 141 mmol/L (135-144)
[2019-07-07 14:52] LABS: iSTAT Arterial Blood Gas HCO3 21 meg/L (19-24); iSTAT Arterial Blood Gas pCO2 53 mmHg (35-46); iSTAT Arterial Blood Gas pO2 401 mmHg (80-95); iSTAT Carbon Dioxide 22 mmol/L (24-31); iSTAT Hematocrit 26 % (37-47); iSTAT Hemoglobin 8.8 g/dl (12.0-16.0); iSTAT Potassium 4.4 mmol/L (3.3-5.0); iSTAT Sodium 139 mmol/L (135-144)
[2019-07-07] MEDS ORDERED: ePHEDrine sulfate 50 MG/ML AMP ONE (15:24)
--- NOTE | 2019-07-07 15:30 | Anesthesiology Progress Note ---
Date of Service July 07, 2019 Anesthesia Post Procedure Vital Signs Vital Signs: Temp Pulse Resp BP Pulse Ox 07/07/19 12:17 72 18 62/30 L 100 07/07/19 12:16 70 21 51/36 L 99 07/07/19 12:15 68 19 57/36 L 07/07/19 12:09 70 21 114/57 L 96 07/07/19 12:01 68 18 99 07/07/19 12:00 68 16 139/67 99 07/07/19 11:53 67 13 128/65 99 07/07/19 11:31 67 16 97 07/07/19 11:30 73 17 94/58 L 96 07/07/19 11:29 72 19 94/56 L 91 07/07/19 11:01 71 16 100/72 91 07/07/19 11:00 71 18 07/07/19 10:47 98 07/07/19 10:40 68 17 100 07/07/19 10:38 36.2 C L 69 18 140/82 98 07/07/19 10:34 68 18 140/82 100 Pain Intensity Left Flank: Pain Intensity: 8 Transfer of Care Handoff Completed per policy Notes Mental Status: alert / awake / arousable and participated in evaluation Patient Amnestic to Procedure: Yes Nausea / Vomiting: adequately controlled Pain: adequately controlled Airway Patency, RR, SpO2: stable & adequate BP & HR: stable & adequate Hydration State: stable & adequate Anesthetic Complications: no major complications apparent and Pt Satisfied with anesthetic care
--- NOTE | 2019-07-07 15:44 | Post Operative Brief Note ---
Immediate Post Op Note v1 Date of Surgery July 07, 2019 Pre & Post Diagnosis Operation Date: 07/07/19 11:55 Pre-Op Diagnosis: abdominal aortic aneurysm Post-Op Diagnosis: abdominal aortic aneurysm I identified the patient and participated in the time-out.: Yes Procedure Operation Date: 07/07/19 11:55 Actual Procedures p Endovascular Aneurysm Repair, Bilateral Cut Down(Bilateral) - Richard Cabrera MD Surgeon Richard Cabrera MD Supervisor Body Assembly MD Corazon Estimated Blood Loss 200 Findings Consistent with Post-Op Diagnosis Drains Malave Catheter Anesthesia Type General Complications none Disposition Accompanied Patient To Recovery: No Disposition: Surgical ICU
[2019-07-07] MEDS ORDERED: MIDAZOLAM HCL 1 MG/ML 2ML VIAL IV PRN (15:51)
--- NOTE | 2019-07-07 15:54 | History & Physical Report ---
Date of Service July 07, 2019 Assessment & Plan (1) AAA (abdominal aortic aneurysm, ruptured): Patient unresponsive. Discussed need of repair with son. I have discussed the risks options and benefits of the procedure with the patient. The patient understands the risks options and benefits and agrees to the procedure. Neck very angulated on CT. May not be an endocandidate. BP dropped to 60's. Patient taken directly to Room 12 in the OR Verbal consent was obtained from her son. History of Present Illness Chief Complaint: Back pain Primary Care Provider: Jasson Deneny MD Patient is a 79yo female who presented with acute flank and back pain today. Found to have a large ruptured AAA on CTA today. Allergies Allergy/AdvReac Type Severity Reaction Status Date / Time No Known Allergies Allergy Unknown ` Verified 07/07/19 10:57 Home Medications Home Medications Medication Instructions Recorded Confirmed Type alendronate 70 mg PO DAMON 07/07/19 07/07/19 History aspirin 81 mg PO DAILY 07/07/19 07/07/19 History atenolol 12.5 mg PO BID 07/07/19 07/07/19 History clopidogrel 75 mg PO DAILY 07/07/19 07/07/19 History cyclobenzaprine 10 mg PO TID PRN 07/07/19 07/07/19 History duloxetine 30 mg PO DAILY 07/07/19 07/07/19 History ezetimibe 10 mg PO DAILY 07/07/19 07/07/19 History mczgrguvrdgc-bcpx-umjab acid 1 tab PO DAILY 07/07/19 07/07/19 History [Centrum Women] pantoprazole 20 mg PO DAILY 07/07/19 07/07/19 History pravastatin 40 mg PO HS 07/07/19 07/07/19 History ramipril 5 mg PO DAILY 07/07/19 07/07/19 History Past Med/Surg History Medical History Heart attack (Resolved) Surgical History H/O heart artery stent (Resolved) History of hysterectomy (Resolved) Social History Feels Safe at Home: Yes Smoking Status: Current every day smoker Review of Systems unobtainable Physical Exam Constitutional: well nourished, + acute distress and + altered mental status Respiratory: + labored breathing Auscultation: + diminished lung sounds Cardiovascular: Rate/Rhythm: regular rate and regular rhythm Vessels: + femoral pulses abnormal, + posterior tibial pulses abnormal, + dorsalis pedis pulses abnormal and + radial pulses abnormal Gastrointestinal (Abdomen): Inspection/Auscultation: + abdomen distended; + abnormal bowel sounds Percussion/Palpation: + abdomen tender and + pulsatile mass Psychiatric: Orientation: + not alert and + not oriented x 3 Results & Data Vital Signs (Past 12 Hours) Vital Signs Temp Pulse Resp BP Pulse Ox 07/07/19 12:17 72 18 62/30 L 100 07/07/19 12:16 70 21 51/36 L 99 07/07/19 12:15 68 19 57/36 L 07/07/19 12:09 70 21 114/57 L 96 07/07/19 12:01 68 18 99 07/07/19 12:00 68 16 139/67 99 07/07/19 11:53 67 13 128/65 99 07/07/19 11:31 67 16 97 07/07/19 11:30 73 17 94/58 L 96 07/07/19 11:29 72 19 94/56 L 91 07/07/19 11:01 71 16 100/72 91 07/07/19 11:00 71 18 07/07/19 10:47 98 07/07/19 10:40 68 17 100 07/07/19 10:38 36.2 C L 69 18 140/82 98 07/07/19 10:34 68 18 140/82 100
[2019-07-07 16:18] LABS: Hematocrit (blood only) 40.6 % (37-47); Hemoglobin 13.4 g/dL (12.0-16.0); Mean Corpuscular Hemoglobin 29.3 pg (25-34); Mean Corpuscular Volume 88.8 fL (80-100); RDW Coefficient of Variation 14.6 % (11.5-14.5); RDW Standard Deviation 47.3 fL (36.4-46.3); Red Blood Count 4.57 M/uL (4.2-5.4); White Blood Count 10.23 K/uL (4.8-10.8)
[2019-07-07] MEDS: propofoL 1,000 MG/100 ML VIAL IV SCH (16:18)
[2019-07-07 16:19] LABS: INR 1.3 (0.9-1.1)
[2019-07-07] MEDS: MoRPHine SULFATE 4 MG/ML 1 ML CARP\\VIAL IV PRN (16:23)
[2019-07-07 16:30] LABS: BUN Creatinine Ratio 19.7 (10-20); Calcium 9.7 mg/dl (8.5-10.1); Creatinine Clr Calc Pharmacy 40.3 ml/min; Est GFR (African American) 55.3; Est GFR (Non-African American) 47.7; Magnesium 1.7 mg/dl (1.8-2.4); Potassium 4.6 mmol/L (3.5-5.1)
--- NOTE | 2019-07-07 16:30 | Procedure Note ---
Procedure Note Date of Service July 07, 2019 Note CENTRAL LINE PROCEDURE NOTE: Procedure: Central Line Placement Provider: Miguel Croft MD Indication: Central Drug Administration, Poor Venous Access, Multiple Lab Draws Necessary, etc. Anesthesia: xNone Site: Left internal jugular Procedure was emergent as the patient is intubated in the. No family immediately available. Patient unable to provide consent due to being on the ventilator A time-out was completed verifying correct patient, procedure, site, positioning, and implants(s) or special equipment if applicable. Patients left neck was cleansed and draped in the typical sterile fashion using Chloraprep. The Internal Jugular Vein and Carotid Artery were identified using ultrasound. The Internal Jugular vein was cannulated under direct ultrasound guidance using an introducer needle on a syringe. Good venous blood return was maintained prior to removal of syringe from introducer needle. Using Seldinger Technique, a guide wire was advanced through the introducer needle without resistance. The introducer needle was removed and ultrasound images were obtained of the guide wire within the Internal Jugular Vein and saved to the patients medical record. A small incision was made in penetrating fashion at the guide wire insertion site utilizing an 11 blade scalpel. The dilator was advanced to the vessel without resistance. The dilator was exchanged for the triple lumen catheter which was advanced into the vessel without resistance. The guide wire was removed intact from the catheter without issue. Claves were placed on each catheter tip with confirmation of good blood flow from each lumen. Each port was easily flushed with sterile saline. The catheter was placed at 20 cm and sutured in place. BioPatch was applied to the catheter and a sterile Tegaderm dressing was applied over the catheter with careful attention to sterility. Patient tolerated procedure well. No immediate complications were met. Post procedure x-ray is pending Images obtained are saved for permanent record Coding CPT Codes Tubes, Drains, and Vasc Access - Tubes, Drains, and Vasc Access: [id number] Place catheter in vein superior or inferior vena cava ([id number])
[2019-07-07 16:35] LABS: Troponin I 0.032 ng/ml (0-0.045)
[2019-07-07 16:36] LABS: Fibrinogen 162 mg/dl (184-400)
--- NOTE | 2019-07-07 16:39 | Critical Care Consultation ---
Date of Consultation July 07, 2019 Assessment & Plan (1) AAA (abdominal aortic aneurysm, ruptured): Impression: 79-year-old female with acute aortic aneurysm rupture status post emergent endovascular repair. She is intubated in the ICU and currently hemodynamics daily stable. Recommendations: 1. Ruptured aortic aneurysm: Endovascular repair. Management per vascular surgery. 2. Acidosis: Combined metabolic and respiratory with elevated lactate. Repeat blood gas is pending. Ventilator was adjusted for normalization of acid-base status. Await repeat blood gas and will adjust ventilator accordingly. Will trend lactate over time. 3. Hypothermia: Secondary to shock. Passive external warming currently in place. Trend temperature. 4. Hypoxemic and hypercarbic respiratory failure: Discussed with vascular surgery. Will keep intubated today due to the large potential for fluid shifts given massive transfusion. Chest x-ray pending. Will have repeat chest x-ray in the morning. If she remains hemodynamically stable, SBT and extubation may be appropriate. 5. Acute blood loss anemia: CBC appears to be improving. Await coagulation panel. The patient is at risk for coagulopathy associated with large volume transfusion. Acute lung injury related to massive transfusion also possible as well as transfusion associated circulatory overload. May require diuretics. Continue to follow closely. 6. Nutrition: N.p.o. for now. H2 kristin in place. Will reassess if unable to extubate in the next 12 hours. 7. Coronary artery disease with hypertension hyperlipidemia: May need to restart the patient's oral antihypertensive regimen at some point. Plavix will also need to be restarted. We will also restart oral lipid-lowering agents. 8. History depression. Hold duloxetine for now. Will reassess when taking oral. Patient remains critically ill at this point time with significant possibility of deterioration and complications related to her ruptured aneurysm. A total of 47 minutes critical care time exclusive of procedures was spent in evaluating managing and stabilizing this patient (2) Acidosis: (3) Hypothermia: (4) Acute blood loss anemia: History of Present Illness Attending Physician: Richard Cabrera MD History of Present Illness Asked by vascular surgery to assist with critical care management in patient status post emergent repair of a leaking infrarenal aortic aneurysm. Patient is intubated and sedated and unable to 3. No family is immediately available. Please refer to Dr. Cabrera's H&P for full details. Patient is a 79-year-old female with a history of coronary artery disease on Plavix status post stent placement. She apparently developed acute flank and back pain today. She was brought emergently to the emergency room. She was assessed there with a CT of the abdomen which was found to have an 8 cm ruptured aortic aneurysm. The patient was taken urgently to the OR by Dr. Cabrera. Endovascular repair was conducted. The patient received 6 units of packed cells in the emergency room. Central line and arterial lines were placed in an urgent fashion by the anesthesia team. She was brought back to the ICU hemodynamically stable off pressors. She had received paralytics. She was on minimal vent settings. She was not requiring vasopressor agents. Allergies Allergy/AdvReac Type Severity Reaction Status Date / Time No Known Allergies Allergy Unknown ` Verified 07/07/19 10:57 Home Medications Home Medications Medication Instructions Recorded Confirmed Type alendronate 70 mg PO DAMON 07/07/19 07/07/19 History aspirin 81 mg PO DAILY 07/07/19 07/07/19 History atenolol 12.5 mg PO BID 07/07/19 07/07/19 History clopidogrel 75 mg PO DAILY 07/07/19 07/07/19 History cyclobenzaprine 10 mg PO TID PRN 07/07/19 07/07/19 History duloxetine 30 mg PO DAILY 07/07/19 07/07/19 History ezetimibe 10 mg PO DAILY 07/07/19 07/07/19 History bindubjxztzo-uigq-pvjdp acid 1 tab PO DAILY 07/07/19 07/07/19 History [Centrum Women] pantoprazole 20 mg PO DAILY 07/07/19 07/07/19 History pravastatin 40 mg PO HS 07/07/19 07/07/19 History ramipril 5 mg PO DAILY 07/07/19 07/07/19 History Patient History Medical History Heart attack (Resolved) Surgical History H/O heart artery stent (Resolved) History of hysterectomy (Resolved) Social History Feels Safe at Home: Yes Smoking Status: Current every day smoker Results & Data Vital Signs (Past 12 Hours) Vital Signs Temp Pulse Pulse Resp BP BP BP 07/07/19 16:02 33.9 C L 80 20 158/65 H 136/87 07/07/19 15:50 33.8 C L 78 14 144/83 H 121/77 07/07/19 15:40 33.8 C L 76 14 151/82 H 07/07/19 15:30 33.7 C L 79 14 179/86 H 07/07/19 15:20 33.6 C L 78 14 180/99 H 07/07/19 12:17 72 18 62/30 L 07/07/19 12:16 70 21 51/36 L 07/07/19 12:15 68 19 57/36 L 07/07/19 12:09 70 21 114/57 L 07/07/19 12:01 68 18 07/07/19 12:00 68 16 139/67 07/07/19 11:53 67 13 128/65 07/07/19 11:31 67 16 07/07/19 11:30 73 17 94/58 L 07/07/19 11:29 72 19 94/56 L 07/07/19 11:01 71 16 100/72 07/07/19 11:00 71 18 07/07/19 10:47 07/07/19 10:40 68 17 07/07/19 10:38 36.2 C L 69 18 140/82 07/07/19 10:34 68 18 140/82 Pulse Ox 07/07/19 16:02 98 07/07/19 15:50 100 07/07/19 15:40 96 07/07/19 15:30 96 07/07/19 15:20 92 07/07/19 12:17 100 07/07/19 12:16 99 07/07/19 12:15 07/07/19 12:09 96 07/07/19 12:01 99 07/07/19 12:00 99 07/07/19 11:53 99 07/07/19 11:31 97 07/07/19 11:30 96 07/07/19 11:29 91 07/07/19 11:01 91 07/07/19 11:00 07/07/19 10:47 98 07/07/19 10:40 100 07/07/19 10:38 98 07/07/19 10:34 100 Laboratory Results 07/07/19 15:57 07/07/19 15:57 Updated labs including coagulation panel and fibrinogen currently pending Diagnostic Findings CT of the abdomen was independently reviewed with Dr. Cabrera. Demonstrates a large fusiform aneurysm with evidence of leak. A large amount of retroperitoneal blood. CTA of the chest was independently reviewed. The lung parenchyma is relatively unremarkable. No filling defects concerning for PE. Coding Level of Care Code Critical Care 1st 30-74 mins Diagnoses AAA (abdominal aortic aneurysm, ruptured) I71.3 Acidosis E87.2 Hypothermia T68.XXXA Acute blood loss anemia D62 Time Spent (min) 47 Comment 47 minutes critical care time exclusive of procedures
[2019-07-07] MEDS ORDERED: ICU ELECTROLYTE REPLACEMENT PROTOCOL PRN (16:44)
[2019-07-07] MEDS ORDERED: SODIUM BICARB 8.4% INJ 50 MEQ/50 ML SYR IV STA (16:44)
[2019-07-07] MEDS ORDERED: SODIUM BICARB 8.4% INJ 50 MEQ/50 ML SYR ONE (16:44)
[2019-07-07] MEDS: D5W AND 1/2NSS 1,000 ML IV SCH (16:48)
--- NOTE | 2019-07-07 16:49 | XRay Report ---
XR chest 1V portable CLINICAL HISTORY: intubation tube position COMPARISON STUDY: No previous studies for comparison. FINDINGS: Endotracheal tube positioned 3 cm above the lala. Lungs are grossly clear. Diaphragms are smooth. IMPRESSION: Endotracheal tube positioned 3 cm above the lala. Central catheter remains in superior vena cava. Endotracheal tube remains in the stomach. ACT 112: Negative or not required by law. The above report was generated using voice recognition software. It may contain grammatical, syntax or spelling errors. Electronically signed by: Roque Huynh M.D. 07/07/2019 4:48 PM
[2019-07-07 16:59] LABS: Platelet Count 109 K/uL (130-400)
[2019-07-07 17:00] LABS: Basophils # (auto) 0.02 K/uL (0-0.2); Basophils % (auto) 0.2 %; Echinocytes 2+; Eosinophils # (auto) 0.01 K/uL (0-0.5); Eosinophils % (auto) 0.1 %; Immature Granulocytes # (auto) 0.04 K/uL (0.00-0.02); Immature Granulocytes % (auto) 0.4 %; Lymphocytes # (auto) 0.62 K/uL (1.2-3.4); Lymphocytes % (auto) 6.1 %; Monocytes # (auto) 0.65 K/uL (0.11-0.59); Monocytes % (auto) 6.4 %; Neutrophils # (auto) 8.89 K/uL (1.4-6.5); Neutrophils % (auto) 86.8 %; Platelet Estimate Decreased (Normal)
--- NOTE | 2019-07-07 17:16 | Consultation ---
Date of Consultation July 07, 2019 Assessment & Plan (1) AAA (abdominal aortic aneurysm, ruptured): (2) Retroperitoneal hematoma: (3) Acute respiratory failure with hypoxia and hypercapnia: (4) Acidosis, lactic: (5) Hypothermia: (6) Acute blood loss anemia: 79 yr old F with AAA rupture Large infra renal 7.7 x 6.6cm with extensive L retroperitoneal hemorrhage s/p endovascular repair POD #[address] Cabrera. Pt currently intubated on mechanical ventilation in ICU and hemodynamically stable. Please refer to Manager Coding consultation regarding further assessment and plan per ICU team. (7) CAD (coronary artery disease): hx of stenting in past On ASA, Plavix, atenolol, statin, ramipril as outpatient Hold ASA and Plavix given ruptured AAA (8) HTN (hypertension): On atenolol and ramipril as outpatient Blood pressure management as per pastry cook (9) HLD (hyperlipidemia): On zetia and statin as outpt hold while NPO (10) Tobacco abuse: Patient with current tobacco abuse monitor (11) CKD (chronic kidney disease) stage 3, GFR 30-59 ml/min: Baseline creatinine 1.1 Monitor renal function (12) DVT prophylaxis: Per pastry cook Disposition: admitted to ICU Follow up: PCP Dr. Denney upon discharge Patient was seen and examined in collaboration with Dr. Little, please see addendum Thank you for this consultation. We will follow the patient with you during their hospital stay. You can reach a member of the [facility] Hospitalist Team 06/01 via pager @ [phone]. Supervising Physician Co-Signing Physician Notes 79-year-old female who has significant PMH of CAD, HTN, HLD, CKD stage III, prediabetes, tobacco use disorder, depression who presents to ED with left flank pain and abdominal pain. History and ROS unable to be obtained from patient as she is currently sedated and mechanically intubated in ICU Patient was reported to have presented to the ER with left-sided flank and abdominal pain. CT abdomen pelvis showed ruptured infrarenal abdominal aortic aneurysm with left retroperitoneal hemorrhage. Patient was taken to the OR and had endovascular aneurysm repair. On exam, General: Intubated and sedated Eyes: Conjunctivae normal, mild pallor , anicteric sclerae ENMT: External ear and nose normal, oropharynx normal, ETT in situ, central line on right side of neck in situ Respiratory: On ventilatory support, Equal air entry bilaterally Cardiovascular: Pulse is RRR. S1 S2. Faint pedal pulses noted on marked legs bilaterally Chest (Breasts): Chest: normal inspection of chest Gastrointestinal (Abdomen): Abdomen is not distended, soft, non-tender to palpation, no guarding, no palpable hepatosplenomegaly, normal bowel sounds, clean dressing over bilateral groin Musculoskeletal: No pedal edema Neurologic: Sedated and intubated Currently on propofol for sedation S/p endovascular aneurysm repair Monitor BP Antihypertensive management per Manager Coding Hold all antiplatelets for now History of Present Illness Requesting Physician: Dr. Cabrera Reason for Consultation: Post operative medical management Attending Physician: Richard Cabrera MD History of Present Illness This is a 79-year-old female who has significant PMH of CAD, HTN, HLD, CKD stage III, prediabetes, tobacco use disorder, depression who presents to ED with left flank pain and abdominal pain. History and ROS unable to be obtained from patient as she is currently sedated and mechanically intubated in ICU. History obtained from [facility] outpatient records, ED provider and critical care consultation. When patient presented to ER she was found to have significant left flank and abdominal pain. Revealed a large left-sided retroperitoneal hematoma secondary to ruptured abdominal aortic aneurysm, measuring 7.7 x 6.6 cm with aneurysmal dilatation involving the near entirety of infrarenal abdominal aorta. She underwent emergent percutaneous endovascular aneurysmal repair, bilateral cutdown by . She received 6 units of PRBCs preoperatively. Appropriate central and arterial lines have been placed. Currently she is admitted to the ICU on mechanical ventilation, hemodynamically stable off pressors. Allergies Allergy/AdvReac Type Severity Reaction Status Date / Time No Known Allergies Allergy Unknown ` Verified 07/07/19 10:57 Home Medications Home Medications Medication Instructions Recorded Confirmed Type alendronate 70 mg PO DAMON 07/07/19 07/07/19 History aspirin 81 mg PO DAILY 07/07/19 07/07/19 History atenolol 12.5 mg PO BID 07/07/19 07/07/19 History clopidogrel 75 mg PO DAILY 07/07/19 07/07/19 History cyclobenzaprine 10 mg PO TID PRN 07/07/19 07/07/19 History duloxetine 30 mg PO DAILY 07/07/19 07/07/19 History ezetimibe 10 mg PO DAILY 07/07/19 07/07/19 History nforbeflurrk-xfsy-qgsyk acid 1 tab PO DAILY 07/07/19 07/07/19 History [Centrum Women] pantoprazole 20 mg PO DAILY 07/07/19 07/07/19 History pravastatin 40 mg PO HS 07/07/19 07/07/19 History ramipril 5 mg PO DAILY 07/07/19 07/07/19 History Patient History Medical History CAD (coronary artery disease) CKD (chronic kidney disease) stage 3, GFR 30-59 ml/min COPD (chronic obstructive pulmonary disease) Depression Heart attack (Resolved) HLD (hyperlipidemia) HTN (hypertension) Prediabetes Tobacco abuse Surgical History H/O heart artery stent (Resolved) History of cataract removal with insertion of prosthetic lens History of hysterectomy (Resolved) Family History (Updated 07/07/19 @ 17:37 by Pamela Timmons PA-C) Mother CHF (congestive heart failure) Father Emphysema of lung Social History (Updated 07/07/19 @ 17:36 by Pamela Timmons PA-C) Communication Ability: Unable Smoking Status: Current every day smoker Review of Systems Review of Systems: Unobtainable due to endotracheal tube and Unobtainable due to reduced consciousness Physical Exam Physical Exam: Constitutional: Appears WD/WN, vitals as above, sedated, intubated on mechanical ventilation Head: Normocephalic, Atraumatic Eyes: PERRL, conjunctivae normal, anicteric sclerae ENMT: external ear and nose normal, oropharynx unable to assess due to ET tube, dry membranes Neck: normal visual inspection Respiratory: Positive ET tube, mechanical ventilation, normal respiratory effort, lungs clear to auscultation, no wheeze, rales, rhonchi. Normal insp/exp effort, no accessory muscle use Cardiovascular: RRR, no murmur, no edema, bilateral pedal PT pulses +1 and equal, bilateral inguinal dressing CDI, central line in place Chest: normal inspection of chest Abdomen: +BS, soft, nontender,ND Musculoskeletal: no cyanosis or clubbing, unable to assess mobility or strength Skin: no rashes, warm and dry mild turgor Neurologic: unable to assess Psychiatric: sedated : +Malave cath with yellow urine output Results & Data Vital Signs (Past 12 Hours) Vital Signs Temp Pulse Pulse Resp BP BP BP 07/07/19 16:02 33.9 C L 80 20 158/65 H 136/87 07/07/19 15:51 20 07/07/19 15:50 33.8 C L 78 14 144/83 H 121/77 07/07/19 15:40 33.8 C L 76 14 151/82 H 07/07/19 15:30 33.7 C L 79 14 179/86 H 07/07/19 15:20 33.6 C L 78 14 180/99 H 07/07/19 12:17 72 18 62/30 L 07/07/19 12:16 70 21 51/36 L 07/07/19 12:15 68 19 57/36 L 07/07/19 12:09 70 21 114/57 L 07/07/19 12:01 68 18 07/07/19 12:00 68 16 139/67 07/07/19 11:53 67 13 128/65 07/07/19 11:31 67 16 07/07/19 11:30 73 17 94/58 L 07/07/19 11:29 72 19 94/56 L 07/07/19 11:01 71 16 100/72 07/07/19 11:00 71 18 07/07/19 10:47 07/07/19 10:40 68 17 07/07/19 10:38 36.2 C L 69 18 140/82 07/07/19 10:34 68 18 140/82 Pulse Ox 07/07/19 16:02 98 07/07/19 15:51 07/07/19 15:50 100 07/07/19 15:40 96 07/07/19 15:30 96 07/07/19 15:20 92 07/07/19 12:17 100 07/07/19 12:16 99 07/07/19 12:15 07/07/19 12:09 96 07/07/19 12:01 99 07/07/19 12:00 99 07/07/19 11:53 99 07/07/19 11:31 97 07/07/19 11:30 96 07/07/19 11:29 91 07/07/19 11:01 91 07/07/19 11:00 07/07/19 10:47 98 07/07/19 10:40 100 07/07/19 10:38 98 07/07/19 10:34 100 Laboratory Results Short CBC 07/07/19 07/07/19 Range/Units 10:00 15:57 WBC 10.01 10.23 (4.8-10.8) K/uL Hgb 13.2 13.4 (12.0-16.0) g/dL Hct 39.7 40.6 (37-47) % Plt Count 227 109 L D (130-400) K/uL BMP 07/07/19 07/07/19 10:00 15:57 Sodium 141 143 Potassium 4.2 4.6 Chloride 111 H 115 H Carbon Dioxide 26 23 BUN 22 H 22 H Creatinine 1.18 1.10 Glucose 179 H 165 H Calcium 9.6 9.7 Cardiac Enzymes 07/07/19 07/07/19 Range/Units 10:00 15:57 Troponin I < 0.015 0.032 (0-0.045) ng/ml Liver Function 07/07/19 Range/Units 10:00 Total Bilirubin 0.3 (0.2-1) mg/dl AST 14 L (15-37) U/L ALT 19 (12-78) U/L Alkaline Phosphatase 72 (45-117) U/L Albumin 3.7 (3.4-5.0) gm/dl Diagnostic Findings Chest CTA: IMPRESSION: 1. Large left-sided retroperitoneal hematoma. This is secondary to a ruptured abdominal aortic aneurysm. This finding will be discussed in a separate CT scan report of the abdomen and pelvis. 2. No evidence of thoracic aortic aneurysm or dissection 3. Hiatal hernia 4. No evidence of acute pulmonary embolism. 5. Pulmonary emphysema Abd/Pelvis CT: IMPRESSION: Ruptured infrarenal abdominal aortic aneurysm, measuring 7.7 x 6.6 cm, with extensive left retroperitoneal hemorrhage. Aneurysmal dilatation involves the near entirety of the infrarenal abdominal aorta and begins 8 mm distal to the takeoff of an accessory right renal artery. Tortuosity of the abdominal aorta at this level. Urgent Vascular surgery consultation is recommended. Findings discussed with Dr. Corral at time of dictation. Medications Administered Esmolol HCl (Brevibloc) 2,500 mg in 250 mls @ 0 mls/hr IV .Q0M [facility]; Protocol Stop: 08/06/19 11:52 Last Titration: 07/07/19 16:50 Dose: 0 mcg/kg/min, 0 mls/hr Documented by: [id number] Titration: 07/07/19 12:15 Dose: 0 mcg/kg/min, 0 mls/hr Documented by: [id number] Admin: 07/07/19 12:12 Dose: 50 mcg/kg/min, 21.3 mls/hr Documented by: [id number] Cosigned by: [id number] Dextrose/Sodium Chloride (D5w And 1/2nss) 1,000 mls @ 125 mls/hr IV .Q8H [facility] Stop: 08/06/19 15:44 Last Admin: 07/07/19 16:48 Dose: 125 mls/hr Documented by: [id number] Propofol (Diprivan) 1,000 mg in 100 mls @ 2.133 mls/hr IV .Q24H [facility]; Protocol Stop: 07/10/19 15:50 Last Admin: 07/07/19 16:18 Dose: 5 mcg/kg/min, 2.1 mls/hr Documented by: [id number] Cosigned by: [id number] Iodixanol (Visipaque) 260 ml IV UD PRN PRN Reason: Radiology Use Stop: 07/11/19 14:36 Last Admin: 07/07/19 14:38 Dose: 260 ml Documented by: [id number] Ioversol (Optiray 320 125ml) 120 ml IV ONCE PRN PRN Reason: Interaction Checking Stop: 07/11/19 11:49 Last Admin: 07/07/19 11:50 Dose: 120 ml Documented by: [id number] Morphine Sulfate (Morphine Sulfate) 1 - 4 mg IV Q2H PRN PRN Reason: Severe Pain Stop: 07/21/19 15:31 Last Admin: 07/07/19 16:23 Dose: 2 mg Documented by: [id number] Discontinued Medications Cefazolin Sodium (Ancef) Confirm Administered Dose 1,000 mg .ROUTE .STK-MED ONE Stop: 07/07/19 12:16 Last Admin: 07/07/19 15:01 Dose: 1,000 mg Documented by: [id number] Gelatin (Surgifoam Sponge 100 (Large)) Confirm Administered Dose 2 ea .ROUTE .STK-MED ONE Stop: 07/07/19 12:16 Last Admin: 07/07/19 15:02 Dose: Not Given Documented by: [id number] Heparin Sodium (Porcine) (Heparin Iv Bolus (Tank Car Cleaner Use Only)) Confirm Administered Dose 10,000 units .ROUTE .STK-MED ONE Stop: 07/07/19 12:16 Last Admin: 07/07/19 15:03 Dose: Not Given Documented by: [id number] Heparin Sodium/Sodium Chloride (Heparin/Nss 1000 Unit/500ml Flush Bag) Confirm Administered Dose 3,000 units IV .STK-MED ONE Stop: 07/07/19 13:50 Last Admin: 07/07/19 14:36 Dose: 200 units Documented by: [id number] Heparin Sodium/Sodium Chloride (Heparin/Nss 1000 Unit/500ml Flush Bag) Confirm Administered Dose 1,000 units IV .STK-MED ONE Stop: 07/07/19 15:00 Last Admin: 07/07/19 15:02 Dose: 1,000 units Documented by: [id number] Sodium Chloride (Nss 1000ml) 1,000 mls @ 999 mls/hr IV .Q1H1M ONE Stop: 07/07/19 12:09 Last Infusion: 07/07/19 16:19 Dose: 0 mls/hr Documented by: [id number] Admin: 07/07/19 11:33 Dose: 999 mls/hr Documented by: [id number] Morphine Sulfate (Morphine Sulfate) 4 mg IV NOW STA Stop: 07/07/19 10:42 Last Admin: 07/07/19 10:51 Dose: 4 mg Documented by: [id number] Ondansetron HCl (Zofran) 4 mg IV NOW STA Stop: 07/07/19 10:42 Last Admin: 07/07/19 10:51 Dose: 4 mg Documented by: [id number] Sodium Bicarbonate (Sodium Bicarbonate 8.4%) Confirm Administered Dose 50 meq .ROUTE .STK-MED ONE Stop: 07/07/19 16:45 Last Admin: 07/07/19 16:46 Dose: 50 meq Documented by: [id number] Sodium Bicarbonate (Sodium Bicarbonate 8.4%) 50 meq IV NOW STA Stop: 07/07/19 16:45 Last Admin: 07/07/19 17:12 Dose: Not Given Documented by: [id number] Thrombin (Recothrom Kit) Confirm Administered Dose 10,000 units .ROUTE .K-MED ONE Stop: 07/07/19 12:16 Last Admin: 07/07/19 15:02 Dose: Not Given Documented by: [id number] ECG Rate (beats per minute): 71 Rhythm: normal sinus Findings: + nonspecific-ST abn and + PVC Additional Comments: Peaked T wave inferiorly with T wave inversion lead I, V2 and ST depression V5-6
[2019-07-07] MEDS: METOPROLOL TARTRATE 1 MG/ML VIAL IV SCH ×2 (17:49→23:07)
[2019-07-07] MEDS ORDERED: NOREPINEPHRINE BIT INJ 8 MG in DEXTROSE 5% 500 ML IV SCH (18:00)
[2019-07-07] MEDS ORDERED: LACTATED RINGER'S 500 ML IV ONE (18:47)
[2019-07-07] MEDS ORDERED: MAGNESIUM SULFATE / D5W 1 GM/100 ML BAG IV ONE (20:27)
[2019-07-07] MEDS: CEFAZOLIN 1000MG 1,000 MG/7.5 ML SYR IV SCH (20:28)
[2019-07-07] MEDS: FAMOTIDINE 20 MG in SYRINGE 3 ML IV SCH (20:28)
[2019-07-07 21:52] LABS: Hematocrit (blood only) 30.1 % (37-47); Hemoglobin 10.2 g/dL (12.0-16.0)
[2019-07-07 22:01] LABS: Base Excess ABG -3.9 mEq/L (-9-1.8); HCO3 ABG 21 mmol/L (19-24); Oxygen Saturation ABG 97.9 % (90-95); PCO2 ABG 34 mmHg (35-46); PO2 ABG 102 mmHg (80-95); pH ABG 7.39 (7.35-7.45)
[2019-07-07 22:03] LABS: Allen Test Pos (Pos)
[2019-07-07 22:13] LABS: Appearance Urine Clear (Clear); Bacteria Urine Automated Negative (Negative); Bilirubin Urine Negative (Negative); Blood Urine 2+ (Negative); Color Urine Yellow; Epithelial Cell Urine Auto >30 /lpf (0-5); Glucose Urine UA Negative (Negative); Ketones Urine Negative (Negative); Leukocyte Esterase Urine Negative (Negative); Nitrite Urine Negative (Negative); Protein Urine 1+ (Negative); RBC Urine Automated >30 /hpf (0-4); Urobilinogen Urine Negative (Negative)
[2019-07-07 22:14] LABS: Specific Gravity Urine > 1.035 (1.000-1.030)
[2019-07-07 22:25] LABS: Renal Epithelial Cells Urine 0-5 /lpf (0-5)
--- NOTE | 2019-07-07 23:36 | Electrocardiogram Report ---
Test Reason : Blood Pressure : / mmHG Vent. Rate : 071 BPM Atrial Rate : 071 BPM P-R Int : 138 ms QRS Dur : 082 ms QT Int : 420 ms P-R-T Axes : 074 035 021 degrees QTc Int : 456 ms Sinus rhythm with intermittent Idioventricular rhythm Possible Left atrial enlargement Nonspecific ST and T wave abnormality Abnormal ECG No previous ECGs available Confirmed by Pablo Townsend ([id number]) on 07/07/2019 11:35:56 PM Referred By: REFERRED SELF Confirmed By:Pablo Townsend
[2019-07-08] MEDS: NORMOSOL-R 1,000 ML IV SCH ×3 (00:04→23:59)
[2019-07-08] MEDS: D5W AND 1/2NSS 1,000 ML IV SCH (00:05)
[2019-07-08] MEDS ORDERED: SURGICEL FIBRILLAR HEMOSTAT 1 X 2IN TOP ONE (01:15)
[2019-07-08 01:36] LABS: Hematocrit (blood only) 30.1 % (37-47); Hemoglobin 10.4 g/dL (12.0-16.0); Mean Corpuscular Hemoglobin 29.5 pg (25-34); Mean Corpuscular Hgb Conc 34.6 g/dL (32-36); Mean Corpuscular Volume 85.5 fL (80-100); Mean Platelet Volume 9.2 fL (7.4-10.4); Platelet Count 107 K/uL (130-400); RDW Coefficient of Variation 14.8 % (11.5-14.5); RDW Standard Deviation 46.4 fL (36.4-46.3); Red Blood Count 3.52 M/uL (4.2-5.4); White Blood Count 9.96 K/uL (4.8-10.8)
[2019-07-08 01:47] LABS: INR 1.1 (0.9-1.1); Partial Thromboplastin Ratio 0.9; Partial Thromboplastin Time 24.8 Seconds (21.0-31.0)
[2019-07-08 01:54] LABS: BUN Creatinine Ratio 18.4 (10-20); Calcium 8.7 mg/dl (8.5-10.1); Creatinine Clr Calc Pharmacy 36.4 ml/min; Est GFR (African American) 48.8; Est GFR (Non-African American) 42.1; Magnesium 1.9 mg/dl (1.8-2.4); Phosphorus 4.7 mg/dl (2.5-4.9); Potassium 4.1 mmol/L (3.5-5.1)
[2019-07-08 01:55] LABS: Basophils # (auto) 0.01 K/uL (0-0.2); Basophils % (auto) 0.1 %; Eosinophils # (auto) 0.02 K/uL (0-0.5); Eosinophils % (auto) 0.2 %; Immature Granulocytes # (auto) 0.04 K/uL (0.00-0.02); Immature Granulocytes % (auto) 0.4 %; Lymphocytes # (auto) 1.08 K/uL (1.2-3.4); Lymphocytes % (auto) 10.8 %; Monocytes # (auto) 1.02 K/uL (0.11-0.59); Monocytes % (auto) 10.2 %; Neutrophils # (auto) 7.79 K/uL (1.4-6.5); Neutrophils % (auto) 78.3 %
[2019-07-08] MEDS ORDERED: METOPROLOL TARTRATE 1 MG/ML VIAL IV STA (01:58)
[2019-07-08] MEDS ORDERED: GELATIN SPONGE 12-7MM ONE (02:08)
[2019-07-08] MEDS: CEFAZOLIN 1000MG 1,000 MG/7.5 ML SYR IV SCH (03:47)
[2019-07-08] MEDS ORDERED: HydrALAZINE HCL 20 MG/ML VIAL IV ONE ×2 (04:37→05:31)
[2019-07-08] MEDS ORDERED: HydrALAZINE HCL 20 MG/ML VIAL ONE (04:50)
[2019-07-08 04:56] LABS: Base Excess ABG -0.8 mEq/L (-9-1.8); HCO3 ABG 23 mmol/L (19-24); PCO2 ABG 33 mmHg (35-46); PO2 ABG 73 mmHg (80-95); pH ABG 7.45 (7.35-7.45)
[2019-07-08 04:59] LABS: Allen Test POS (Pos)
[2019-07-08] MEDS: MoRPHine SULFATE 4 MG/ML 1 ML CARP\\VIAL IV PRN ×2 (05:28→07:57)
[2019-07-08] MEDS: METOPROLOL TARTRATE 1 MG/ML VIAL IV SCH (05:34)
[2019-07-08] MEDS: propofoL 1,000 MG/100 ML VIAL IV SCH (05:44)
[2019-07-08] MEDS ORDERED: LABETALOL HCL IV 5 MG/ML 20ML IV STA ×2 (06:31→07:07)
[2019-07-08] MEDS ORDERED: MAGNESIUM SULFATE / D5W 1 GM/100 ML BAG IV SCH (07:00)
--- NOTE | 2019-07-08 07:06 | XRay Report ---
XR chest 1V portable CLINICAL HISTORY: resp failure tube position COMPARISON STUDY: 07/07/2019 FINDINGS: Slight persistent prominence of pulmonary vasculature. Underlying emphysematous change. IMPRESSION: Endotracheal tube 3.5 cm above the lala. Lungs remain clear. Central catheter is in shields perior vena cava. ACT 112: Negative or not required by law. The above report was generated using voice recognition software. It may contain grammatical, syntax or spelling errors. Electronically signed by: Roque Huynh M.D. 07/08/2019 7:05 AM
--- NOTE | 2019-07-08 07:54 | Surgery Progress Note ---
Date of Service July 08, 2019 Assessment & Plan (1) AAA (abdominal aortic aneurysm, ruptured): This patient is 1 day after a endograft repair of a ruptured abdominal aortic aneurysm. She is doing extremely well. Plans by the sales marketing director to have her extubated this morning. We will closely continue to monitor her creatinine due to partially covering the right renal artery. Also closely monitor her hemoglobin. Would like to keep her blood pressures in the 140 range. Subjective This patient is intubated at this time. She is awake however and appears to be answering appropriately. Physical Exam Physical Exam: Patient's blood pressure 120/59. Abdominal exam shows slight distended abdomen but no pulsatile mass appreciated. She has good perfusion of the lower extremity with good Doppler signals. She is making good urine output. Her hemoglobin is stable in the low tens and her creatinine is 1.2 during the night. Groin dressings are intact. Constitutional: WD/WN, vitals as above Results & Data Vital Signs (Past 12 Hours) Vital Signs Temp Pulse Resp BP Pulse Ox 07/08/19 06:00 79 128/59 L 95 07/08/19 05:34 83 152/89 H 07/08/19 05:05 86 21 96 07/08/19 05:00 86 137/62 96 07/08/19 04:00 80 96 07/08/19 03:00 77 132/75 97 07/08/19 02:10 83 167/70 H 07/08/19 02:00 83 135/74 96 07/08/19 01:33 83 20 97 07/08/19 01:01 82 20 98 07/08/19 01:00 85 133/76 99 07/08/19 00:00 80 142/74 H 98 07/07/19 23:07 93 H 141/70 H 07/07/19 23:00 98 H 21 98 07/07/19 22:00 90 98 07/07/19 21:45 90 20 98 07/07/19 21:25 37.1 C 89 20 142/67 H 98 07/07/19 20:29 37 C 93 H 20 135/74 98 07/07/19 20:00 94 H 129/67 97 07/07/19 19:59 37 C 95 H 20 97
[2019-07-08] MEDS: FAMOTIDINE 20 MG in SYRINGE 3 ML IV SCH (07:57)
--- NOTE | 2019-07-08 08:35 | Critical Care Progress Note ---
Date of Service July 08, 2019 Assessment & Plan (1) AAA (abdominal aortic aneurysm, ruptured): Impression: 79-year-old female with acute aortic aneurysm rupture status post emergent endovascular repair. She is intubated in the ICU and currently hemodynamics daily stable. 24-hour events: The patient was brought to the ICU after going emergent endov ascular repair of her aortic aneurysm. Her central line which was placed under crash conditions was replaced with 1 placed under full barrier precautions. She remained hemodynamically stable but did have some episodes of hypertension requiring intermittent hydralazine and labetalol. She was put on SBT this morning and after discussion with vascular surgery extubated and is doing quite well clinically. Recommendations: 1. Ruptured aortic aneurysm: Endovascular repair. Management per vascular surgery. Try and maintain systolic blood pressure less than 140. Can restart oral atenolol. May need TRAY inhibitor restarted at some point 2. Acidosis: Resolved. 3. Hypothermia: Now resolved 4. Hypoxemic and hypercarbic respiratory failure: Doing well clinically off the ventilator right now. Incentive spirometry and out of bed to chair. Wean oxygen as tolerated. 5. Acute blood loss anemia with thrombocytopenia: CBC stable. No evidence of ongoing bleeding. Continue to trend serial hemoglobin hematocrit and platelet count. 6. Nutrition: N.p.o. for now. H2 kristin in place. If she does well extubated can likely advance diet to clears this afternoon 7. Coronary artery disease with hypertension hyperlipidemia: Restart Plavix when okay with vascular surgery. Lipid-lowering agent will also be reinitiated. 8. History depression. Hold duloxetine for now. Will reassess when taking oral. Patient is responding favorably to interventions. Out of bed up to a chair, discontinue her Malave, and get physical therapy and Occupational Therapy consul ts working with her today. Ultimate disposition deferred to vascular surgery. (2) Acidosis: (3) Hypothermia: (4) Acute blood loss anemia: Review of Systems Review of Systems: Unobtainable due to endotracheal tube Physical Exam Constitutional: WD/WN, vitals as above Neck: trachea midline, no thyromegaly Respiratory: normal respiratory effort, lungs clear to auscultation Cardiovascular: RRR, no murmur, no edema Gastrointestinal (Abdomen): normal bowel sounds, soft, nontender, no hepatosplenomegaly Musculoskeletal: Extremities: extremities normal to inspection Skin: no rashes, warm and dry Neurologic: Nonfocal exam Lymphatic: no cervical lymphadenopathy Results & Data Vital Signs (Past 12 Hours) Vital Signs Temp Pulse Resp BP Pulse Ox 07/08/19 07:56 85 24 125/64 94 07/08/19 07:26 86 127/60 92 07/08/19 07:18 84 15 97 07/08/19 06:00 79 128/59 L 95 07/08/19 05:34 83 152/89 H 07/08/19 05:05 86 21 96 07/08/19 05:00 86 137/62 96 07/08/19 04:00 80 96 07/08/19 03:00 77 132/75 97 07/08/19 02:10 83 167/70 H 07/08/19 02:00 83 135/74 96 07/08/19 01:33 83 20 97 07/08/19 01:01 82 20 98 07/08/19 01:00 85 133/76 99 07/08/19 00:00 80 142/74 H 98 07/07/19 23:07 93 H 141/70 H 07/07/19 23:00 98 H 21 98 07/07/19 22:00 90 98 07/07/19 21:45 90 20 98 07/07/19 21:25 37.1 C 89 20 142/67 H 98 07/07/19 20:29 37 C 93 H 20 135/74 98 Laboratory Results 07/08/19 01:24 07/08/19 01:24 Diagnostic Findings Chest x-ray from today was independently reviewed. The endotracheal tube is in good position. The lungs are free of infiltrate with the exception of a small degree of platelike atelectasis at the left lung base Coding Level of Care Code 26893 Subseq Hosp Care Lvl 3 Diagnoses AAA (abdominal aortic aneurysm, ruptured) I71.3 Acidosis E87.2 Hypothermia T68.XXXA Acute blood loss anemia D62 Time Spent (min) 36 Comment Discussed with ROLL CLEANER and Sr. Cabrera.
[2019-07-08 09:15] LABS: Hematocrit (blood only) 26.4 % (37-47); Hemoglobin 9.3 g/dL (12.0-16.0)
[2019-07-08 10:35] LABS: iSTAT Potassium 4.8 mmol/L (3.3-5.0); iSTAT Sodium 143 mmol/L (135-144)
[2019-07-08 10:36] LABS: iSTAT Art Bld Gas pCO2 Correct 35 mmHg (35-46); iSTAT Art Bld Gas pH Corrected 7.326 (7.35-7.45); iSTAT Arterial Blood Gas pCO2 40 mmHg (35-46); iSTAT Arterial Blood Gas pH 7.29 (7.35-7.45); iSTAT Hematocrit 37 % (37-47); iSTAT Hemoglobin 12.6 g/dl (12.0-16.0)
[2019-07-08 10:37] LABS: Patient Temperature 34.2; iSTAT Arterial Blood Gas HCO3 19 meg/L (19-24); iSTAT Arterial Blood Gas pO2 79 mmHg (80-95); iSTAT Arterial Blood Gas pO2 C 66; iSTAT Carbon Dioxide 20 mmol/L (24-31); iSTAT FiO2 40 %
[2019-07-08 10:38] LABS: iSTAT Sample Type Arterial; iSTAT Site Art Line
[2019-07-08 10:46] LABS: iSTAT SpO2 98
[2019-07-08] MEDS: METOPROLOL TARTRATE 25 MG TAB PO SCH ×3 (11:23→21:04)
[2019-07-08] MEDS: DULOXETINE HCL 30 MG CAP PO SCH (11:38)
--- NOTE | 2019-07-08 12:32 | Anesthesiology Progress Note ---
Date of Service July 08, 2019 Anesthesia Post Procedure Vital Signs Vital Signs: Temp Pulse Pulse Resp BP BP BP 07/08/19 07:56 85 24 125/64 07/08/19 07:26 86 127/60 07/08/19 07:18 84 15 07/08/19 06:00 79 128/59 L 07/08/19 05:34 83 152/89 H 07/08/19 05:05 86 21 07/08/19 05:00 86 137/62 07/08/19 04:00 80 07/08/19 03:00 77 132/75 07/08/19 02:10 83 167/70 H 07/08/19 02:00 83 135/74 07/08/19 01:33 83 20 07/08/19 01:01 82 20 07/08/19 01:00 85 133/76 07/08/19 00:00 80 142/74 H 07/07/19 23:07 93 H 141/70 H 07/07/19 23:00 98 H 21 07/07/19 22:00 90 07/07/19 21:45 90 20 07/07/19 21:25 37.1 C 89 20 142/67 H 07/07/19 21:15 90 20 150/72 H 07/07/19 20:29 37 C 93 H 20 135/74 07/07/19 20:00 94 H 129/67 07/07/19 19:59 37 C 95 H 20 07/07/19 19:44 36.9 C 96 H 20 110/60 07/07/19 19:14 36.5 C 92 H 20 112/56 L 07/07/19 19:00 36.5 C 82 20 110/55 L 07/07/19 18:59 36.5 C 20 115/64 07/07/19 18:29 36.0 C L 90 20 111/61 07/07/19 18:14 36.0 C L 91 H 20 93/58 L 07/07/19 18:07 20 07/07/19 17:58 35.1 C L 91 H 20 106/62 07/07/19 17:49 83 91/57 L 07/07/19 17:36 35.8 C L 81 20 91/57 L 07/07/19 17:34 81 91/57 L 07/07/19 17:17 36.4 C L 78 20 133/74 07/07/19 17:06 76 115/71 07/07/19 16:02 33.9 C L 80 20 158/65 H 136/87 07/07/19 15:51 20 07/07/19 15:50 33.8 C L 78 14 144/83 H 121/77 07/07/19 15:40 33.8 C L 76 14 151/82 H 07/07/19 15:30 33.7 C L 79 14 179/86 H 07/07/19 15:20 33.6 C L 78 14 180/99 H Pulse Ox 07/08/19 07:56 94 07/08/19 07:26 92 07/08/19 07:18 97 07/08/19 06:00 95 07/08/19 05:34 07/08/19 05:05 96 07/08/19 05:00 96 07/08/19 04:00 96 07/08/19 03:00 97 07/08/19 02:10 07/08/19 02:00 96 07/08/19 01:33 97 07/08/19 01:01 98 07/08/19 01:00 99 07/08/19 00:00 98 07/07/19 23:07 07/07/19 23:00 98 07/07/19 22:00 98 07/07/19 21:45 98 07/07/19 21:25 98 07/07/19 21:15 98 07/07/19 20:29 98 07/07/19 20:00 97 07/07/19 19:59 97 07/07/19 19:44 97 07/07/19 19:14 97 07/07/19 19:00 98 07/07/19 18:59 97 07/07/19 18:29 97 07/07/19 18:14 97 07/07/19 18:07 07/07/19 17:58 96 07/07/19 17:49 07/07/19 17:36 96 07/07/19 17:34 99 07/07/19 17:17 98 07/07/19 17:06 98 07/07/19 16:02 98 07/07/19 15:51 07/07/19 15:50 100 07/07/19 15:40 96 07/07/19 15:30 96 07/07/19 15:20 92 Pain Intensity Left Flank: Pain Intensity: 0 Notes Mental Status: alert / awake / arousable and participated in evaluation Patient Amnestic to Procedure: Yes Nausea / Vomiting: adequately controlled Pain: adequately controlled Airway Patency, RR, SpO2: stable & adequate BP & HR: stable & adequate Hydration State: stable & adequate Anesthetic Complications: no major complications apparent and Pt Satisfied with anesthetic care Notes: Patient looks very well this afternoon, was extubated this morning and VSS with O2 sats ~95-96% on 4LNC. Patient sitting up in bed and started on clear liquids. Patient amnestic to OR procedure, has no anesthesia related complaints and is in good spirits at this time.
[2019-07-08] MEDS: HydrALAZINE HCL 20 MG/ML VIAL IV PRN (12:35)
[2019-07-08] MEDS ORDERED: METOPROLOL TARTRATE 25 MG TAB PO STA (15:32)
[2019-07-08] MEDS: lisinopriL 5 MG TAB PO SCH (16:56)
[2019-07-08] MEDS: PRAVASTATIN SOD 40 MG TAB PO SCH (21:04)
--- NOTE | 2019-07-08 21:19 | Hospitalist Progress Note ---
Date of Service July 08, 2019 Assessment & Plan (1) AAA (abdominal aortic aneurysm, ruptured): Status post endovascular repair. Received 6 units of pRBC's as well as platelets, FFP, cryoprecipitate. (2) Acute blood loss anemia: Hgb as low as 6.8. Acute blood loss anemia secondary to ruptured AAA. Received 6 units pRBC's. Hgb today = 9.3. (3) CAD (coronary artery disease): No anginal symptoms. Resume aspirin and clopidogrel when deemed safe from vascular perspective. Beta kristin changed from atenolol to metoprolol. Continue statin. (4) HTN (hypertension): Receiving metoprolol and lisinopril. Follow and titrate Rx. (5) COPD (chronic obstructive pulmonary disease): Pulmonary status stable post extubation. Incentive spirometry. (6) CKD (chronic kidney disease) stage 3, GFR 30-59 ml/min: Creatinine stable at 1.22. (7) Prediabetes: FBS 111. (8) DVT prophylaxis: SCD's. Ambulate as able. (9) Discharge planning issues: To be determined. May need skilled care or inpt rehab. Family Medicine follow-up with Dr. Denney. Subjective Recheck for multiple problems. Patient seen in their room around 1910. Son visiting. Presented to ED yesterday with ruptured AAA. Endovascular repair performed emergently. Extubated this morning. Having some persistent lower abdominal/back pain. Review of Systems: Constitutional- no fever. Cardiac- no chest pain. Pulmonary- occasional cough; no SOB. GI- no nausea, vomiting, diarrhea, melena, hematochezia. - Malave cath. Otherwise, as noted above. Physical Exam Constitutional: no acute distress Respiratory: no respiratory distress Auscultation: lungs clear to auscultation bilaterally Cardiovascular: Rate/Rhythm: regular rate and regular rhythm Heart Sounds: no gallop Vessels: no JVD Extremities: + edema (trace pretibial); no calf tenderness Gastrointestinal (Abdomen): Inspection/Auscultation: + abdomen distended Percussion/Palpation: + abdomen tender and abdomen soft Musculoskeletal: SCD's appliet Skin: no rashes, warm and dry Psychiatric: Orientation: alert and oriented x 3 Genitourinary: + bladder abnormality (Malave cath) Results & Data Vital Signs (Past 12 Hours) Vital Signs Pulse Pulse Resp BP Pulse Ox 01/23/20 18:40 88 29 H 120/71 94 07/08/19 17:41 88 27 H 106/72 96 07/08/19 16:41 90 07/08/19 16:27 90 35 H 131/86 96 07/08/19 16:00 87 07/08/19 15:48 87 22 137/43 L 98 07/08/19 15:26 90 25 H 137/43 L 96 07/08/19 14:58 89 27 H 119/56 L 07/08/19 14:26 87 22 145/59 H 100 07/08/19 14:00 88 24 100 07/08/19 13:56 88 23 141/63 H 100 07/08/19 13:26 92 H 24 123/62 93 07/08/19 12:56 88 29 H 130/59 L 99 07/08/19 12:26 82 25 H 142/74 H 97 07/08/19 11:56 89 28 H 124/65 97 07/08/19 11:26 91 H 30 H 133/65 96 07/08/19 10:56 87 23 154/71 H 97 07/08/19 10:26 87 23 152/72 H 96 07/08/19 09:56 88 21 145/70 H 93 07/08/19 09:26 86 24 142/66 H 94 Laboratory Results 07/08/19 09:06 07/08/19 01:24
[2019-07-09 04:09] LABS: Basophils # (auto) 0.01 K/uL (0-0.2); Basophils % (auto) 0.1 %; Eosinophils # (auto) 0.11 K/uL (0-0.5); Immature Granulocytes # (auto) 0.02 K/uL (0.00-0.02); Immature Granulocytes % (auto) 0.2 %; Lymphocytes # (auto) 0.85 K/uL (1.2-3.4); Lymphocytes % (auto) 7.5 %; Mean Corpuscular Hemoglobin 29.4 pg (25-34); Mean Corpuscular Hgb Conc 33.3 g/dL (32-36); Mean Corpuscular Volume 88.2 fL (80-100); Monocytes # (auto) 1.27 K/uL (0.11-0.59); Monocytes % (auto) 11.2 %; Neutrophils # (auto) 9.07 K/uL (1.4-6.5); Platelet Count 115 K/uL (130-400); RDW Coefficient of Variation 15.1 % (11.5-14.5); RDW Standard Deviation 48.7 fL (36.4-46.3); Red Blood Count 2.72 M/uL (4.2-5.4); White Blood Count 11.33 K/uL (4.8-10.8)
[2019-07-09 04:27] LABS: BUN Creatinine Ratio 22.3 (10-20); Calcium 7.9 mg/dl (8.5-10.1); Creatinine Clr Calc Pharmacy 51.2 ml/min; Est GFR (African American) 54.7; Est GFR (Non-African American) 47.2; Magnesium 2.1 mg/dl (1.8-2.4); Potassium 3.8 mmol/L (3.5-5.1)
[2019-07-09 04:34] LABS: Phosphorus 2.7 mg/dl (2.5-4.9)
[2019-07-09] MEDS: POTASSIUM CHLORIDE / WTR 20 MEQ/100 ML PLCT IV SCH ×2 (06:07→07:56)
[2019-07-09] MEDS ORDERED: SODIUM CHLORIDE 0.9% 250 ML IV PRN (06:12)
[2019-07-09] MEDS: FAMOTIDINE 20 MG TAB PO SCH (07:58)
[2019-07-09] MEDS: METOPROLOL TARTRATE 25 MG TAB PO SCH (07:58)
[2019-07-09] MEDS: lisinopriL 5 MG TAB PO SCH (07:58)
[2019-07-09] MEDS: DULOXETINE HCL 30 MG CAP PO SCH (07:58)
--- NOTE | 2019-07-09 09:09 | Critical Care Progress Note ---
Date of Service July 09, 2019 Assessment & Plan (1) AAA (abdominal aortic aneurysm, ruptured): Impression: 79-year-old female with acute aortic aneurysm rupture status post emergent endovascular repair. 24-hour events: Patient extubated yesterday morning. She is tolerating clear liquid diet. Pain control is adequate. Blood pressure has been adequately maintained. No acute events overnight Recommendations: 1. Ruptured aortic aneurysm: Endovascular repair. Management per vascular surgery. Try and maintain systolic blood pressure less than 140. Restarted TRAY inhibitor and beta-kristin 2. Acidosis: Resolved. 3. Hypothermia: Now resolved 4. Hypoxemic and hypercarbic respiratory failure: Wean oxygen as tolerated. Incentive spirometry and out of bed to chair. 5. Acute blood loss anemia with thrombocytopenia. Significant retroperitoneal hematoma: Transfusing 2 units packed cells today per vascular surgery. Platelet count is recovering. 6. Nutrition: Clear liquids. H2 kristin in place. Diet per vascular surgery 7. Coronary artery disease with hypertension hyperlipidemia: Restart Plavix wh en okay with vascular surgery. Lipid-lowering agent restarted 8. History depression. Restarted duloxetine Remove Malave catheter. Continue to advance activity as tolerated. Disposition per vascular surgery. Okay to go to the floor from a critical care perspective (2) Acidosis: (3) Hypothermia: (4) Acute blood loss anemia: Subjective Patient seen and examined. EMR reviewed. She is been extubated and doing well. Her pain is adequately controlled billiard she is at been out of bed. Blood pressure has been adequately controlled. No acute events overnight Review of Systems Review of Systems: Unchanged from prior Physical Exam Constitutional: WD/WN, vitals as above Neck: trachea midline, no thyromegaly Respiratory: normal respiratory effort, lungs clear to auscultation Cardiovascular: RRR, no murmur, no edema Gastrointestinal (Abdomen): normal bowel sounds, soft, nontender, no hepatosplenomegaly Musculoskeletal: Extremities: extremities normal to inspection Skin: no rashes, warm and dry Lymphatic: no cervical lymphadenopathy Results & Data Vital Signs (Past 12 Hours) Vital Signs Temp Pulse Pulse Resp BP BP Pulse Ox 07/09/19 08:24 36.9 C 89 31 H 142/58 H 95 07/09/19 08:15 92 H 28 H 94 07/09/19 08:08 36.9 C 94 H 38 H 138/62 94 07/09/19 08:07 36.9 C 94 H 38 H 138/62 94 07/09/19 08:00 89 07/09/19 07:50 36.9 C 91 H 36 H 139/66 94 07/09/19 06:00 86 24 133/64 93 07/09/19 04:00 37.4 C 85 24 123/54 L 94 07/09/19 02:00 84 24 139/63 95 07/09/19 01:00 86 24 141/56 H 96 07/09/19 00:00 37.5 C 85 24 127/53 L 95 07/08/19 23:00 84 24 122/51 L 94 07/08/19 22:00 86 20 126/64 95 Laboratory Results 07/09/19 03:46 07/09/19 03:46 Diagnostic Findings No new films Coding Level of Care Code 55375 Subseq Hosp Care Lvl 3 Diagnoses AAA (abdominal aortic aneurysm, ruptured) I71.3 Acidosis E87.2 Hypothermia T68.XXXA Acute blood loss anemia D62
[2019-07-09] MEDS ORDERED: FUROSEMIDE 20 MG in SYRINGE 0 ML IV ONE (09:59)
[2019-07-09] MEDS ORDERED: FUROSEMIDE 40 MG/4 ML VIAL IV ONE (10:15)
--- NOTE | 2019-07-09 10:39 | Surgery Progress Note ---
Date of Service July 09, 2019 Assessment & Plan (1) AAA (abdominal aortic aneurysm, ruptured): This patient is POD#2 after a endograft repair of a ruptured abdominal aortic aneurysm. She is doing extremely well. We will closely continue to monitor her creatinine due to partially covering the right renal artery. Also closely monitor her hemoglobin, getting 2 U PRBC today, as hgb was 8.0 this AM. Would like to keep her blood pressures in the 140 range. Subjective 79 yo F admitted after EVAR with BL groin cutdown after acute AAA rupture, seen in f/u today. Pt currenlty undergoing administration of 2 U PRBC. Pt states she is fatigued, and having some back pain, but is controlled with medication. No BM yet, but is passing flatus. Taking CLD without problems. Denies leg/foot pain or other concerns. Review of Systems Review of Systems: All systems reviewed & are unremarkable except as noted in HPI & below Physical Exam Constitutional: WD/WN, vitals as above no acute distress Respiratory: normal respiratory effort, lungs clear to auscultation Cardiovascular: RRR, no murmur, no edema Gastrointestinal (Abdomen): Inspection/Auscultation: + abdomen distended (mildly) Percussion/Palpation: abdomen nontender Musculoskeletal: no cyanosis or clubbing, extremities motor strength 5/5 Skin: + incision (BL groin incisions C/D/I with urvashi. +local tender) Neurologic: moves all extremities; no focal motor deficits Psychiatric: A+Ox3, euthymic affect Results & Data Vital Signs (Past 12 Hours) Vital Signs Temp Pulse Pulse Resp BP BP Pulse Ox 07/09/19 09:53 36.9 C 78 28 H 137/75 96 07/09/19 08:53 36.7 C 83 30 H 129/66 93 07/09/19 08:24 36.9 C 89 31 H 142/58 H 95 07/09/19 08:15 92 H 28 H 94 07/09/19 08:08 36.9 C 94 H 38 H 138/62 94 07/09/19 08:07 36.9 C 94 H 38 H 138/62 94 07/09/19 08:00 89 07/09/19 07:50 36.9 C 91 H 36 H 139/66 94 07/09/19 06:00 86 24 133/64 93 07/09/19 04:00 37.4 C 85 24 123/54 L 94 07/09/19 02:00 84 24 139/63 95 07/09/19 01:00 86 24 141/56 H 96 07/09/19 00:00 37.5 C 85 24 127/53 L 95 07/08/19 23:00 84 24 122/51 L 94
[2019-07-09] MEDS: HydrALAZINE HCL 20 MG/ML VIAL IV PRN ×2 (12:10→23:30)
[2019-07-09 13:55] LABS: Hematocrit (blood only) 29.6 % (37-47); Hemoglobin 9.9 g/dL (12.0-16.0)
[2019-07-09] MEDS: METOPROLOL TARTRATE 50 MG TAB PO SCH ×2 (14:18→20:12)
[2019-07-09] MEDS: PRAVASTATIN SOD 40 MG TAB PO SCH (20:12)
--- NOTE | 2019-07-09 21:50 | Hospitalist Progress Note ---
Date of Service July 09, 2019 Assessment & Plan (1) AAA (abdominal aortic aneurysm, ruptured): Status post endovascular repair, POD # 2. Received 6 units of pRBC's as well as platelets, FFP, cryoprecipitate. Hgb 8.0 this morning. Additional pRBC's ordered. (2) Hypovolemic shock: BP as low as 51/36. Hypovolemic / hemorrhagic shock secondary to ruptured AAA. Hemodynamics improved with fluid / blood resuscitation. (3) Acute blood loss anemia: Hgb as low as 6.8. Acute blood loss anemia secondary to ruptured AAA. Received 6 units pRBC's. Hgb 8.0 this morning. Additional pRBC's ordered. (4) CAD (coronary artery disease): No anginal symptoms. Resume aspirin and clopidogrel when deemed safe from vascular perspective. Beta kristin changed from atenolol to metoprolol. Continue statin. (5) HTN (hypertension): Receiving metoprolol and lisinopril. Follow and titrate Rx. (6) COPD (chronic obstructive pulmonary disease): Pulmonary status stable post extubation. Incentive spirometry. (7) CKD (chronic kidney disease) stage 3, GFR 30-59 ml/min: Creatinine stable at 1.11. (8) Prediabetes: FBS 117. (9) DVT prophylaxis: SCD's. Ambulate as able. (10) Discharge planning issues: To be determined. May need skilled care or inpt rehab. Family Medicine follow-up with Dr. Denney. Subjective Recheck for multiple problems. Patient seen in their room around 0850. Doing fairly well. No significant problems last night. Still having some persistent lower abdominal/back pain. Receiving another unit of pRBC's this morning. Review of Systems: Constitutional- no fever. Cardiac- no chest pain. Pulmonary- occasional cough; no SOB. GI- no nausea, vomiting, diarrhea, melena, hematochezia. - Malave cath. Otherwise, as noted above. Physical Exam Constitutional: no acute distress Respiratory: no respiratory distress Auscultation: lungs clear to auscultation bilaterally Cardiovascular: Rate/Rhythm: regular rate and regular rhythm Heart Sounds: no gallop Vessels: no JVD Extremities: + edema (trace pretibial); no calf tenderness Gastrointestinal (Abdomen): Inspection/Auscultation: + abdomen distended Percussion/Palpation: + abdomen tender and abdomen soft Skin: no rashes, warm and dry Psychiatric: Orientation: alert and oriented x 3 Genitourinary: + bladder abnormality (Malave cath) Results & Data Vital Signs (Past 12 Hours) Vital Signs Temp Pulse Pulse Resp BP BP Pulse Ox 07/09/19 21:00 78 27 H 129/54 L 93 07/09/19 20:00 36.8 C 88 19 102/66 90 07/09/19 19:00 82 20 120/60 90 07/09/19 17:01 84 28 H 117/60 91 07/09/19 16:30 81 31 H 92 07/09/19 16:01 79 27 H 133/67 95 07/09/19 16:00 36.8 C 79 79 32 H 133/67 94 07/09/19 15:30 83 27 H 07/09/19 14:16 84 37 H 138/70 90 07/09/19 14:00 86 30 H 92 07/09/19 13:38 86 31 H 135/58 L 90 07/09/19 13:16 91 H 07/09/19 13:13 36.8 C 89 27 H 139/64 91 07/09/19 13:07 89 30 H 138/81 92 07/09/19 12:49 36.7 C 89 28 H 139/93 92 07/09/19 12:09 36.6 C 84 24 150/63 H 93 07/09/19 12:00 85 21 90 07/09/19 11:46 36.6 C 85 32 H 155/75 H 91 07/09/19 11:02 36.8 C 83 32 H 142/74 H 93 07/09/19 11:00 84 30 H 94 07/09/19 10:46 36.9 C 83 19 152/63 H 96 07/09/19 10:37 36.9 C 81 27 H 152/63 H 94 07/09/19 09:53 36.9 C 78 28 H 137/75 96 Laboratory Results Laboratory Results - last 24 hr 07/07/19 07/08/19 07/09/19 12:24 21:53 03:46 WBC RBC Hgb Hct MCV MCH MCHC RDW Std Deviation RDW Coeff of Adalid Plt Count MPV Immature Gran % (Auto) Neut % (Auto) Lymph % (Auto) Branch % (Auto) Eos % (Auto) Baso % (Auto) Immature Gran # (Auto) Neut # (Auto) Lymph # (Auto) Branch # (Auto) Eos # (Auto) Baso # (Auto) Sodium 143 Potassium 3.8 Chloride 111 H Carbon Dioxide 28 Anion Gap 4.0 BUN 25 H Creatinine 1.11 Est Cr Clr Drug Dosing 51.2 Est GFR ( Amer) 54.7 Est GFR (Non-Af Amer) 47.2 BUN/Creatinine Ratio 22.3 H Glucose 117 H POC Glucose 126 H Calcium 7.9 L Phosphorus 2.7 D Magnesium 2.1 Blood Type A Negative Antibody Screen NEGATIVE Crossmatch See Detail 07/09/19 07/09/19 03:46 13:48 WBC 11.33 H RBC 2.72 L Hgb 8.0 L 9.9 L Hct 24.0 L 29.6 L MCV 88.2 MCH 29.4 MCHC 33.3 RDW Std Deviation 48.7 H RDW Coeff of Adalid 15.1 H Plt Count 115 L MPV 10.0 Immature Gran % (Auto) 0.2 Neut % (Auto) 80.0 Lymph % (Auto) 7.5 Branch % (Auto) 11.2 Eos % (Auto) 1.0 Baso % (Auto) 0.1 Immature Gran # (Auto) 0.02 Neut # (Auto) 9.07 H Lymph # (Auto) 0.85 L Branch # (Auto) 1.27 H Eos # (Auto) 0.11 Baso # (Auto) 0.01 Sodium Potassium Chloride Carbon Dioxide Anion Gap BUN Creatinine Est Cr Clr Drug Dosing Est GFR ( Amer) Est GFR (Non-Af Amer) BUN/Creatinine Ratio Glucose POC Glucose Calcium Phosphorus Magnesium Blood Type Antibody Screen Crossmatch
[2019-07-09] MEDS ORDERED: ALBUT/IPRATROP 3MG/0.5MG NEB 3 ML VIAL NEB PRN (23:25)
[2019-07-10 00:38] LABS: Hematocrit (blood only) 29.1 % (37-47); Hemoglobin 10.3 g/dL (12.0-16.0)
[2019-07-10] MEDS ORDERED: FUROSEMIDE 20 MG in SYRINGE 0 ML IV ONE (02:33)
[2019-07-10] MEDS ORDERED: methylPREDNISolone 40 MG in SYRINGE 0 ML IV SCH (03:00)
[2019-07-10 04:47] LABS: Hematocrit (blood only) 28.4 % (37-47); Hemoglobin 9.8 g/dL (12.0-16.0); Mean Corpuscular Hemoglobin 30.2 pg (25-34); Mean Corpuscular Hgb Conc 34.5 g/dL (32-36); Mean Corpuscular Volume 87.7 fL (80-100); RDW Coefficient of Variation 14.7 % (11.5-14.5); RDW Standard Deviation 47.6 fL (36.4-46.3); Red Blood Count 3.24 M/uL (4.2-5.4); White Blood Count 11.14 K/uL (4.8-10.8)
[2019-07-10 05:05] LABS: BUN Creatinine Ratio 21.8 (10-20); Calcium 8.3 mg/dl (8.5-10.1); Est GFR (African American) 54.7; Est GFR (Non-African American) 47.2; Magnesium 1.9 mg/dl (1.8-2.4); Potassium 3.9 mmol/L (3.5-5.1)
[2019-07-10 05:23] LABS: Phosphorus 0.8 mg/dl (2.5-4.9)
[2019-07-10] MEDS ORDERED: POTASSIUM PHOS 3 MMOL/1 ML INFUSION IV STA (05:31)
[2019-07-10 06:02] LABS: Mean Platelet Volume 9.7 fL (7.4-10.4); Platelet Count 92 K/uL (130-400)
[2019-07-10 06:03] LABS: Basophils # (auto) 0.01 K/uL (0-0.2); Basophils % (auto) 0.1 %; Eosinophils # (auto) 0.05 K/uL (0-0.5); Eosinophils % (auto) 0.4 %; Immature Granulocytes # (auto) 0.04 K/uL (0.00-0.02); Immature Granulocytes % (auto) 0.4 %; Lymphocytes # (auto) 0.56 K/uL (1.2-3.4); Monocytes # (auto) 0.78 K/uL (0.11-0.59); Neutrophils % (auto) 87.1 %; Platelet Estimate Decreased (Normal)
[2019-07-10] MEDS: POTASSIUM PHOSPHATE 21 MMOL in SODIUM CHLORIDE 0.9% 500 ML IV ONE ×2 (06:33→06:39)
[2019-07-10] MEDS: FAMOTIDINE 20 MG TAB PO SCH (07:17)
[2019-07-10] MEDS: METOPROLOL TARTRATE 50 MG TAB PO SCH (07:17)
[2019-07-10] MEDS: DULOXETINE HCL 30 MG CAP PO SCH (07:18)
[2019-07-10] MEDS: lisinopriL 5 MG TAB PO SCH (07:18)
--- NOTE | 2019-07-10 07:56 | Hospitalist Progress Note ---
Date of Service July 10, 2019 Assessment & Plan (1) AAA (abdominal aortic aneurysm, ruptured): Status post endovascular repair, POD # 3. Received 8 units of pRBC's as well as platelets, FFP, cryoprecipitate. Hgb 9.8 this morning. (2) Hypovolemic shock: BP as low as 51/36 day of admission. Hypovolemic / hemorrhagic shock secondary to ruptured AAA. Hemodynamics improved with fluid / blood resuscitation. (3) Acute blood loss anemia: Hgb as low as 6.8. Acute blood loss anemia secondary to ruptured AAA. Received 8 units pRBC's. Hgb 9.8 this morning. (4) CAD (coronary artery disease): No anginal symptoms. Resume aspirin and clopidogrel when deemed safe from vascular perspective. Beta kristin changed from atenolol to metoprolol. Continue statin. (5) HTN (hypertension): Receiving metoprolol and lisinopril. Follow and titrate Rx. (6) COPD (chronic obstructive pulmonary disease): Pulmonary status stable post extubation. Incentive spirometry. (7) CKD (chronic kidney disease) stage 3, GFR 30-59 ml/min: Creatinine stable at 1.11. (8) Hypophosphatemia: Serum phosphorus 0.8. Replace. Follow. (9) Prediabetes: FBS 116. (10) DVT prophylaxis: SCD's. Ambulate as able. (11) Discharge planning issues: To be determined. May need skilled care or inpt rehab. Family Medicine follow-up with Dr. Denney. Subjective Recheck for multiple problems. Patient seen in their room around 0730. Doing fairly well. Upset about hospitalization and associated aggravations. Didn't sleep well last night. Restless, wants to get out of bed. Received IV furosemide last night for fluid overload with good diuresis. Abdominal / back pain improved. Declined chest x-ray this morning. Review of Systems: Constitutional- no fever. Cardiac- no chest pain. Pulmonary- occasional cough; no SOB. GI- no nausea, vomiting, diarrhea, melena, hematochezia. - Malave cath removed. Otherwise, as noted above. Physical Exam Constitutional: no acute distress Respiratory: no respiratory distress Auscultation: lungs clear to auscultation bilaterally Cardiovascular: Rate/Rhythm: regular rate and regular rhythm Heart Sounds: no gallop Vessels: no JVD Extremities: + edema (trace pretibial); no calf tenderness Gastrointestinal (Abdomen): Inspection/Auscultation: + abdomen distended Percussion/Palpation: abdomen soft; abdomen nontender Skin: no rashes, warm and dry Psychiatric: Orientation: alert and oriented x 3 (can name current, but not past, president) Results & Data Vital Signs (Past 12 Hours) Vital Signs Temp Pulse Pulse Resp BP Pulse Ox 07/10/19 07:02 81 07/10/19 06:00 83 26 H 141/84 H 91 07/10/19 05:00 78 24 127/91 91 07/10/19 04:00 68 24 141/53 H 92 07/10/19 03:00 74 29 H 152/59 H 91 07/10/19 02:00 66 23 137/61 92 07/10/19 01:00 67 26 H 119/56 L 92 07/10/19 00:00 77 31 H 121/56 L 91 07/09/19 23:48 76 28 H 130/58 L 94 07/09/19 23:46 76 24 91 07/09/19 23:22 76 33 H 151/70 H 91 07/09/19 23:03 78 42 H 147/86 H 92 07/09/19 22:04 79 24 131/60 91 07/09/19 21:00 78 27 H 129/54 L 93 07/09/19 20:00 36.8 C 88 19 102/66 90 Laboratory Results 07/10/19 04:38 07/10/19 04:38
--- NOTE | 2019-07-10 08:17 | Critical Care Progress Note ---
Date of Service July 10, 2019 Assessment & Plan (1) AAA (abdominal aortic aneurysm, ruptured): Impression: 79-year-old female with acute aortic aneurysm rupture status post emergent endovascular repair. 24-hour events: Blood pressure acceptable without need for parenteral agents. Recommendations: 1. Ruptured aortic aneurysm: Endovascular repair. Management per vascular surgery. Try and maintain systolic blood pressure less than 140. Increase TRAY inhibitor and beta-kristin. Add Norvasc 2. Acidosis: Resolved. 3. Hypothermia: Now resolved 4. Possible COPD: Patient with extensive history of tobacco abuse. Will place on a trial of Anoro and continue duo nebs as needed. No indication for steroids. Diuretics given mild fluid congestion on x-ray. 5. Acute blood loss anemia with thrombocytopenia. Significant retroperitoneal hematoma: Transfusing 2 units packed cells today per vascular surgery. Platelet count is recovering. 6. Nutrition: Clear liquids. H2 kristin in place. Diet per vascular surgery 7. Coronary artery disease with hypertension hyperlipidemia: Restart Plavix when okay with vascular surgery. Lipid-lowering agent restarted 8. History depression. Restarted duloxetine 9. Delirium: Suspect multifactorial etiology including sundowning, sleep-wake cycle disruption, and medications. Try and keep awake today. Up and around as tolerated. Transfer out of ICU to the regular floor if okay with vascular surgery. Low-dose antipsychotics should the patient develop agitated delirium Continue to advance activity as tolerated. Disposition per vascular surgery. Okay to go to the floor from a critical care perspective. Will sign off once patient leaves ICU (2) Acidosis: (3) Hypothermia: (4) Acute blood loss anemia: Subjective No complaints this morning. Per nursing did have some agitation and delirium overnight. Review of Systems Review of Systems: All systems reviewed & are unremarkable except as noted in HPI & below Physical Exam Constitutional: WD/WN, vitals as above Neck: trachea midline, no thyromegaly Respiratory: normal respiratory effort, lungs clear to auscultation Cardiovascular: RRR, no murmur, no edema Gastrointestinal (Abdomen): normal bowel sounds, soft, nontender, no hepatosplenomegaly Musculoskeletal: Extremities: extremities normal to inspection Skin: no rashes, warm and dry Lymphatic: no cervical lymphadenopathy Results & Data Vital Signs (Past 12 Hours) Vital Signs Pulse Pulse Resp BP Pulse Ox 07/10/19 07:02 81 07/10/19 06:00 83 26 H 141/84 H 91 01/25/20 05:00 78 24 127/91 91 07/10/19 04:00 68 24 141/53 H 92 07/10/19 03:00 74 29 H 152/59 H 91 07/10/19 02:00 66 23 137/61 92 07/10/19 01:00 67 26 H 119/56 L 92 07/10/19 00:00 77 31 H 121/56 L 91 07/09/19 23:48 76 28 H 130/58 L 94 07/09/19 23:46 76 24 91 07/09/19 23:22 76 33 H 151/70 H 91 07/09/19 23:03 78 42 H 147/86 H 92 07/09/19 22:04 79 24 131/60 91 07/09/19 21:00 78 27 H 129/54 L 93 Laboratory Results 07/10/19 04:38 07/10/19 04:38 Diagnostic Findings No new films Coding Level of Care Code 23602 Subseq Hosp Care Lvl 3 Diagnoses AAA (abdominal aortic aneurysm, ruptured) I71.3 Acidosis E87.2 Hypothermia T68.XXXA Acute blood loss anemia D62
[2019-07-10] MEDS ORDERED: Nursing to Pharmacy Communication ONE (08:56)
[2019-07-10] MEDS ORDERED: AMLODIPINE BESYLATE 5 MG TAB PO SCH (09:00)
[2019-07-10] MEDS ORDERED: lisinopriL 10 MG TAB PO SCH (09:00)
[2019-07-10] MEDS ORDERED: POTASSIUM PHOSPHATE 21 MMOL in SODIUM CHLORIDE 0.9% 500 ML IV ONE (09:15)
[2019-07-10] MEDS: FUROSEMIDE 20 MG TAB PO SCH (09:18)
[2019-07-10] MEDS: UMECLIDINIUM/VILANTEROL 62.5/25MCG 7 PUFFS/INHALER INH SCH (09:18)
--- NOTE | 2019-07-10 09:43 | Surgery Progress Note ---
Date of Service July 10, 2019 Assessment & Plan (1) AAA (abdominal aortic aneurysm, ruptured): This patient is POD#3 after a endograft repair of a ruptured abdominal aortic aneurysm. She is doing extremely well. Will transfer to floor today. She did have acute blood loss anemia from her surgery which responded to transfusions. No active bleeding at this time. Subjective No complaints this morning. Per nursing did have some agitation and delirium overnight. Fairly clear this am. Does have mild back discomfort Physical Exam Constitutional: WD/WN, vitals as above Respiratory: Auscultation: + diminished lung sounds Cardiovascular: Rate/Rhythm: regular rate and regular rhythm Vessels: femoral pulses present, posterior tibial pulses present, dorsalis pedis pulses present and radial pulses present Gastrointestinal (Abdomen): Inspection/Auscultation: abdomen normal to inspection Percussion/Palpation: abdomen nontender and no pulsatile mass Psychiatric: Orientation: alert and oriented x 3 Genitourinary: good urine output Results & Data Vital Signs (Past 12 Hours) Vital Signs Temp Pulse Pulse Resp BP Pulse Ox 07/10/19 08:54 75 25 H 123/57 L 93 07/10/19 08:08 36.9 C 73 35 H 150/63 H 94 07/10/19 07:08 76 35 H 153/73 H 07/10/19 07:02 81 07/10/19 06:00 83 26 H 141/84 H 91 07/10/19 05:00 78 24 127/91 91 07/10/19 04:00 68 24 141/53 H 92 07/10/19 03:00 74 29 H 152/59 H 91 07/10/19 02:00 66 23 137/61 92 07/10/19 01:00 67 26 H 119/56 L 92 07/10/19 00:00 77 31 H 121/56 L 91 07/09/19 23:48 76 28 H 130/58 L 94 07/09/19 23:46 76 24 91 07/09/19 23:22 76 33 H 151/70 H 91 07/09/19 23:03 78 42 H 147/86 H 92 07/09/19 22:04 79 24 131/60 91
--- NOTE | 2019-07-10 12:10 | XRay Report ---
SINGLE VIEW CHEST CLINICAL HISTORY: Dyspnea and wheezing. FINDINGS: An AP, portable, upright chest radiograph is compared to study dated 07/08/2019. Correlation is made with chest CT dated 07/07/2019. An endotracheal tube, and enteric tube, and a left internal j ugular central venous catheter have been removed. The heart is mildly enlarged noting atherosclerotic calcification of the thoracic aorta. There is pulmonary vascular congestion. There are small pleural effusions with left basilar consolidation. No pneumothorax is seen. The skeletal structures are oste openic. The bony thorax is grossly intact. IMPRESSION: 1. Lines and tubes have been removed as above. 2. The heart is mildly enlarged, and mild pulmonary vascular congestion is new from yesterday. 3. Small pleural effusions and left basilar consolidation. ACT 112: Negative or not required by law. Electronically signed by: Jacques Lugo M.D. 07/10/2019 12:09 PM
[2019-07-10] MEDS ORDERED: ACETAMINOPHEN 500 MG TAB PO PRN (17:34)
[2019-07-10] MEDS: DOCUSATE SODIUM 100 MG CAP PO SCH (20:01)
[2019-07-10] MEDS: PRAVASTATIN SOD 40 MG TAB PO SCH (20:01)
[2019-07-10] MEDS: ATENOLOL 25 MG TABLET PO SCH (20:02)
[2019-07-11] MEDS ORDERED: ALENDRONATE SODIUM 70 MG TAB PO SCH (06:30)
[2019-07-11] MEDS: CLOPIDOGREL BISULFATE 75 MG TAB PO SCH (08:02)
[2019-07-11] MEDS: PANTOprazole 40 MG TAB PO SCH (08:02)
[2019-07-11] MEDS: ASPIRIN 81 MG ECTAB PO SCH (08:02)
[2019-07-11] MEDS: DULOXETINE HCL 30 MG CAP PO SCH (08:02)
[2019-07-11] MEDS: CEROVITE ADV FORMULA TAB PO SCH (08:02)
[2019-07-11] MEDS: DOCUSATE SODIUM 100 MG CAP PO SCH ×2 (08:02→20:22)
[2019-07-11] MEDS: FUROSEMIDE 20 MG TAB PO SCH (08:02)
[2019-07-11] MEDS: ATENOLOL 25 MG TABLET PO SCH ×2 (08:03→20:23)
[2019-07-11] MEDS: ENALAPRIL MALEATE 5 MG TAB PO SCH (08:04)
[2019-07-11] MEDS: EZETIMIBE 10 MG TABLET PO SCH (08:04)
[2019-07-11] MEDS: UMECLIDINIUM/VILANTEROL 62.5/25MCG 7 PUFFS/INHALER INH SCH (08:05)
[2019-07-11] MEDS: FAMOTIDINE 20 MG TAB PO SCH (08:06)
[2019-07-11 08:10] LABS: Eosinophils # (auto) 0.08 K/uL (0-0.5); Eosinophils % (auto) 0.7 %; Hematocrit (blood only) 28.4 % (37-47); Hemoglobin 9.5 g/dL (12.0-16.0); Immature Granulocytes # (auto) 0.03 K/uL (0.00-0.02); Immature Granulocytes % (auto) 0.3 %; Lymphocytes # (auto) 1.12 K/uL (1.2-3.4); Lymphocytes % (auto) 10.1 %; Mean Corpuscular Hemoglobin 29.9 pg (25-34); Mean Corpuscular Hgb Conc 33.5 g/dL (32-36); Mean Corpuscular Volume 89.3 fL (80-100); Mean Platelet Volume 10.6 fL (7.4-10.4); Monocytes # (auto) 1.21 K/uL (0.11-0.59); Monocytes % (auto) 10.9 %; Neutrophils # (auto) 8.62 K/uL (1.4-6.5); Platelet Count 132 K/uL (130-400); RDW Coefficient of Variation 14.8 % (11.5-14.5); RDW Standard Deviation 48.6 fL (36.4-46.3); Red Blood Count 3.18 M/uL (4.2-5.4); White Blood Count 11.06 K/uL (4.8-10.8)
[2019-07-11] MEDS ORDERED: DULOXETINE HCL 30 MG CAP PO SCH (09:00)
[2019-07-11 09:11] LABS: BUN Creatinine Ratio 30.6 (10-20); Calcium 8.3 mg/dl (8.5-10.1); Creatinine Clr Calc Pharmacy 55.1 ml/min; Est GFR (African American) 72.4; Est GFR (Non-African American) 62.5; Magnesium 1.9 mg/dl (1.8-2.4); Potassium 4.3 mmol/L (3.5-5.1)
[2019-07-11 09:26] LABS: Phosphorus 1.4 mg/dl (2.5-4.9)
--- NOTE | 2019-07-11 09:47 | Surgery Progress Note ---
Date of Service July 11, 2019 Assessment & Plan (1) AAA (abdominal aortic aneurysm, ruptured): This patient is POD#4 after a endograft repair of a ruptured abdominal aortic aneurysm. She is doing extremely well. We will start physical therapy occupational therapy. If she does well lalitha saran hopefully we get her home by Friday or Friday of this week. Subjective No complaints this morning. Her only complaint from her incisions is some burning pain in the medial thigh. She has no pain in her feet. She has no abdominal discomfort. She is tolerating a regular diet. Physical Exam Constitutional: WD/WN, vitals as above well nourished, + acute distress and + altered mental status Respiratory: normal respiratory effort Auscultation: lungs clear to auscultation bilaterally Cardiovascular: Rate/Rhythm: regular rate and regular rhythm Vessels: femoral pulses present, posterior tibial pulses present, dorsalis pedis pulses present and radial pulses present Gastrointestinal (Abdomen): Inspection/Auscultation: abdomen normal to inspection Percussion/Palpation: abdomen nontender and no pulsatile mass Psychiatric: Orientation: alert and oriented x 3 Results & Data Vital Signs (Past 12 Hours) Vital Signs Temp Pulse Resp BP Pulse Ox 07/11/19 07:47 36.4 C L 72 18 176/75 H 91 07/10/19 23:35 37.4 C 66 20 124/66 94
[2019-07-11] MEDS: POT PHOSPHATE MONOBASIC W/ SOD TAB PO SCH ×3 (13:32→20:22)
--- NOTE | 2019-07-11 17:18 | Hospitalist Progress Note ---
Date of Service July 11, 2019 Assessment & Plan (1) AAA (abdominal aortic aneurysm, ruptured): Status post endovascular repair, POD # 4. Received 8 units of pRBC's as well as 1 bag platelets, 3 units FFP, cryoprecipitate. Hgb 9.5 this morning. (2) Hypovolemic shock: BP as low as 51/36 day of admission. Hypovolemic / hemorrhagic shock secondary to ruptured AAA. Hemodynamics improved with fluid / blood resuscitation. (3) Acute blood loss anemia: Hgb as low as 6.8. Acute blood loss anemia secondary to ruptured AAA. Received 8 units pRBC's. Hgb 9.5 this morning. (4) CAD (coronary artery disease): No anginal symptoms. Resume aspirin and clopidogrel when deemed safe from vascular perspective. Beta kristin changed from atenolol to metoprolol. Continue statin. (5) HTN (hypertension): Receiving metoprolol and lisinopril. Follow and titrate Rx. (6) COPD (chronic obstructive pulmonary disease): Pulmonary status stable post extubation. Incentive spirometry. (7) CKD (chronic kidney disease) stage 3, GFR 30-59 ml/min: Creatinine stable at 0.88. (8) Hypophosphatemia: Serum phosphorus as low as 0.8. Replace. Phos today = 1.4. Follow. (9) Prediabetes: FBS 98. (10) DVT prophylaxis: SCD's. Ambulate as able. (11) Discharge planning issues: Spoke with son. He is hoping that pt can be discharged to his home during her recovery period rather than go to another facility. Family Medicine follow-up with Dr. Denney. Subjective Recheck for multiple problems. Patient seen in their room around 1200. Son visiting. Doing fairly well. Confusion improved. Occasional cough. Intermittent lower abdominal pain. No bowel movements yet. Review of Systems: Constitutional- no fever. Cardiac- no chest pain. Pulmonary- occasional cough; no SOB. GI- no nausea, vomiting, diarrhea, melena, hematochezia. - Malave cath removed. Otherwise, as noted above. Physical Exam Constitutional: no acute distress Respiratory: no respiratory distress Auscultation: lungs clear to auscultation bilaterally Cardiovascular: Rate/Rhythm: regular rate and regular rhythm Heart Sounds: no gallop Vessels: no JVD Extremities: + edema (trace pretibial); no calf tenderness Gastrointestinal (Abdomen): Inspection/Auscultation: + abdomen distended Percussion/Palpation: abdomen soft; abdomen nontender Skin: no rashes, warm and dry Psychiatric: Orientation: alert and oriented x 3 (can name current, but not past, president) Genitourinary: + bladder abnormality (Malave cath) Results & Data Vital Signs (Past 12 Hours) Vital Signs Temp Pulse Resp BP Pulse Ox Pulse Ox Pulse Ox 07/11/19 15:42 37 C 72 16 165/75 H 91 07/11/19 12:47 97 91 07/11/19 11:31 93 07/11/19 10:55 16 93 07/11/19 09:47 16 96 07/11/19 07:47 36.4 C L 72 18 176/75 H 91 Pulse Ox 07/11/19 15:42 07/11/19 12:47 92 07/11/19 11:31 07/11/19 10:55 07/11/19 09:47 07/11/19 07:47 Laboratory Results Laboratory Results - last 24 hr 07/11/19 07/11/19 05:21 08:34 WBC 11.06 H RBC 3.18 L Hgb 9.5 L Hct 28.4 L MCV 89.3 MCH 29.9 MCHC 33.5 RDW Std Deviation 48.6 H RDW Coeff of Adalid 14.8 H Plt Count 132 MPV 10.6 H Immature Gran % (Auto) 0.3 Neut % (Auto) 78.0 Lymph % (Auto) 10.1 Gregory % (Auto) 10.9 Eos % (Auto) 0.7 Baso % (Auto) 0.0 Immature Gran # (Auto) 0.03 H Neut # (Auto) 8.62 H Lymph # (Auto) 1.12 L Gregory # (Auto) 1.21 H Eos # (Auto) 0.08 Baso # (Auto) 0.00 Sodium 141 Potassium 4.3 Chloride 110 H Carbon Dioxide 27 Anion Gap 3.0 BUN 27 H Creatinine 0.88 Est Cr Clr Drug Dosing 55.1 Est GFR ( Amer) 72.4 Est GFR (Non-Af Amer) 62.5 BUN/Creatinine Ratio 30.6 H Glucose 98 Calcium 8.3 L Phosphorus 1.4 L* Magnesium 1.9
[2019-07-11] MEDS ORDERED: bisacodyL 5 MG TABEC PO ONE (19:39)
[2019-07-11] MEDS: PRAVASTATIN SOD 40 MG TAB PO SCH (20:22)
[2019-07-11 23:31] VITALS: O2SAT 92
[2019-07-12 06:07] LABS: BUN Creatinine Ratio 24.4 (10-20); Calcium 8.4 mg/dl (8.5-10.1); Creatinine Clr Calc Pharmacy 57.7 ml/min; Est GFR (African American) 76.6; Est GFR (Non-African American) 66.1
[2019-07-12 08:05] VITALS: BP 171/70; TEMP 99.5
[2019-07-12] MEDS: UMECLIDINIUM/VILANTEROL 62.5/25MCG 7 PUFFS/INHALER INH SCH (08:26)
[2019-07-12] MEDS: DOCUSATE SODIUM 100 MG CAP PO SCH (08:27)
[2019-07-12] MEDS: FUROSEMIDE 20 MG TAB PO SCH (08:27)
[2019-07-12] MEDS: DULOXETINE HCL 30 MG CAP PO SCH (08:27)
[2019-07-12] MEDS: ASPIRIN 81 MG ECTAB PO SCH (08:28)
[2019-07-12] MEDS: CEROVITE ADV FORMULA TAB PO SCH (08:28)
[2019-07-12] MEDS: PANTOprazole 40 MG TAB PO SCH (08:29)
[2019-07-12] MEDS: CLOPIDOGREL BISULFATE 75 MG TAB PO SCH (08:29)
[2019-07-12] MEDS: POT PHOSPHATE MONOBASIC W/ SOD TAB PO SCH (08:29)
[2019-07-12] MEDS: ATENOLOL 25 MG TABLET PO SCH (08:30)
[2019-07-12] MEDS: ENALAPRIL MALEATE 5 MG TAB PO SCH (08:30)
[2019-07-12] MEDS: EZETIMIBE 10 MG TABLET PO SCH (08:30)
[2019-07-12] MEDS: FAMOTIDINE 20 MG TAB PO SCH (09:28)
--- NOTE | 2019-07-12 09:39 | Surgery Progress Note ---
Date of Service July 12, 2019 Assessment & Plan (1) AAA (abdominal aortic aneurysm, ruptured): This patient is POD#5 after a endograft repair of a ruptured abdominal aortic aneurysm. She is doing extremely well. Pt discussed with Dr Cabrera, pt ok for d/c to home with her family. PLans to stay with her son for a few days/week. Present on Admission?: Yes Subjective 79 yo f POD #5 after emergent EVAR d/t ruptured AAA, seen in f/u today. Pt doing very well. Ambulating without assistance. Has had BM, mild occasional abd pain. Denies dizziness, chest pain, SOB, N/V, other concerns. States she plans to live with her son for a few days at least. Review of Systems Review of Systems: All systems reviewed & are unremarkable except as noted in HPI & below Physical Exam Constitutional: WD/WN, vitals as above no acute distress Respiratory: normal respiratory effort, lungs clear to auscultation Cardiovascular: RRR, no murmur, no edema Gastrointestinal (Abdomen): Inspection/Auscultation: + abdomen distended (mildly) Percussion/Palpation: abdomen nontender Musculoskeletal: no cyanosis or clubbing, extremities motor strength 5/5 Skin: + incision (BL groin incisions C/D/I with urvashi. +local tender) Neurologic: moves all extremities; no focal motor deficits Psychiatric: A+Ox3, euthymic affect Results & Data Vital Signs (Past 12 Hours) Vital Signs Temp Pulse Resp BP BP Pulse Ox 07/12/19 07:37 37.5 C 85 18 170/99 H 171/70 H 92 07/11/19 22:55 37.4 C 80 18 166/73 H 92
[2019-07-12 09:43] VITALS: PULSE 73
--- NOTE | 2019-07-12 11:01 | Discharge Summary ---
Date of Service July 12, 2019 Admission HPI Per Admitting Provider Patient is a 79yo female who presented with acute flank and back pain today. Found to have a large ruptured AAA on CTA today. Admission Exam Per Admitting Provider Constitutional: well nourished, + acute distress and + altered mental status Respiratory: + labored breathing Auscultation: + diminished lung sounds Cardiovascular: Rate/Rhythm: regular rate and regular rhythm Vessels: + femoral pulses abnormal, + posterior tibial pulses abnormal, + dorsalis pedis pulses abnormal and + radial pulses abnormal Gastrointestinal (Abdomen): Inspection/Auscultation: + abdomen distended; + abnormal bowel sounds Percussion/Palpation: + abdomen tender and + pulsatile mass Psychiatric: Orientation: + not alert and + not oriented x 3 Principal Diagnosis 1. s/p Emergent EVAR with BL groin cutdown 2. Ruptured AAA Discharge Exam Constitutional WD/WN, vitals as above no acute distress Respiratory normal respiratory effort, lungs clear to auscultation Cardiovascular RRR, no murmur, no edema Gastrointestinal (Abdomen) Inspection/Auscultation: + abdomen distended (mildly) Percussion/Palpation: abdomen nontender Musculoskeletal no cyanosis or clubbing, extremities motor strength 5/5 Skin + incision (BL groin incisions C/D/I with urvashi. +local tender) Neurologic moves all extremities; no focal motor deficits Psychiatric A+Ox3, euthymic affect Discharge Data Allergies Allergy/AdvReac Type Severity Reaction Status Date / Time No Known Allergies Allergy Unknown ` Verified 07/07/19 10:57 Consultations 07/07/19 12:48 ED Decision to Admit Stat 07/07/19 15:30 Consult Filling Layer Up Routine Procedures Performed Operation Date: 07/07/19 11:55 Actual Procedures p Endovascular Aneurysm Repair, Bilateral Cut Down(Bilateral) - Richard Cabrera MD Ordered Studies 07/07/19 11:28 CT angio abdomen pelvis w con Stat 07/07/19 11:41 CT angio chest dissec wo/w con Stat 07/07/19 12:22 EV aneurysm iliac rupture Stat US guide vascular access Stat 07/07/19 15:49 US point of care ultrasound Stat Hospital Course (1) AAA (abdominal aortic aneurysm, ruptured): This patient is POD#5 after a endograft repair of a ruptured abdominal aortic aneurysm. She is doing extremely well. Pt discussed with Dr Cabrera, pt ok for d/c to home with her family. PLans to stay with her son for a few days/week. Total Time Total Time Spent Total Time Spent (In Minutes): 0 Discharge Plan Discharge Items Patient Disposition: Home - Self-Care Reason For Visit: RUPTURED AAA Discharge Diagnosis: 1. s/p Emergent Endovascular Abdominal Aortic Aneurysm Repair with Bilateral Groin Cutdowns 2. Ruptured AAA Condition on Discharge: Good Activity: Per Instructions section Non-emergency contact: Primary Care Provider and Surgeon Call non-emergency contact if: you have any medication questions, your pain is not controlled, your pain is concerning for you, your temperature is above 101, your wound has increased redness and your wound has increased drainage Follow-up/Referrals: Jasson Denney MD [Primary Care Provider] - Richard Cabrera MD [Physician] - (Follow up Appt in [address] Cabrera or Paty Gonzales PA-C) Diet: Heart Healthy Addtl Attending Provider Instructions: 1. May shower, cleanse wounds gently, and dry thoroughly. 2. No lifting more than 15 lbs 3. No driving x 2 weeks 4. No dressings required to groins. 5. You need a follow up appt with Dr Cabrera or Paty Gonzales PA-C, in 2 weeks. Call [phone] for appt and if you have any other questions. Pending Studies at Discharge: No Stand-Alone Forms: My [facility], Smoking Cessation Medications and DC Order Prescriptions: New docusate sodium 100 mg Capsule 100 mg PO BID PRN (Reason: Constipation) Qty: 60 RF: 0 Anoro Ellipta 62.5-25 mcg/actuation Blister With Device 1 puff inhalation DAILY Qty: 1 RF: 0 oxycodone-acetaminophen [Percocet] 5-325 mg tablet 1 tab PO TID PRN (Reason: pain) Qty: 20 RF: 0 Continued cyclobenzaprine 10 mg Tablet 10 mg PO TID PRN (Reason: Muscle Spasm) RF: 0 pravastatin 40 mg tablet 40 mg PO HS RF: 0 alendronate 70 mg tablet 70 mg PO DAMON RF: 0 atenolol 25 mg tablet 12.5 mg PO BID RF: 0 clopidogrel 75 mg tablet 75 mg PO DAILY RF: 0 aspirin 81 mg Tablet,Delayed Release (Dr/Ec) 81 mg PO DAILY RF: 0 pantoprazole 20 mg tablet,delayed release (DR/EC) 20 mg PO DAILY RF: 0 ramipril 5 mg capsule 5 mg PO DAILY RF: 0 ezetimibe 10 mg tablet 10 mg PO DAILY RF: 0 duloxetine 30 mg capsule,delayed release(DR/EC) 30 mg PO DAILY RF: 0 Centrum Women 18-400 mg-mcg Tablet 1 tab PO DAILY RF: 0 Discharge Orders: Discharge Order (Routine); Ordered 07/12/19 Ordered By: Paty Gonzales Admission Data Admit Date/Time: 07/07/19 15:29 Attending Provider: Richard Cabrera Admit Provider: Richard Cabrera Primary Care Provider: Jasson Denney Other Providers: Sarmad Valladares ; Veniec Little I. ; Jacques Wahl ; Eben Javier Seth D. ; Moses Martinez ; Spencer Thompson ; Miguel Croft ; Jd Pope Other Interventions: Discharge Summary Assessment (RN) Last Done: 07/12/19 10:03
--- NOTE | 2019-07-12 12:24 | Hospitalist Progress Note ---
Date of Service July 12, 2019 Results & Data Vital Signs (Past 12 Hours) Vital Signs Temp Pulse Pulse Resp BP BP Pulse Ox 07/12/19 10:03 37.5 C 73 85 18 170/99 H 171/70 H 92 07/12/19 09:41 37.5 C 73 85 18 171/70 H 92 07/12/19 07:37 37.5 C 85 18 170/99 H 171/70 H 92
--- NOTE | 2019-07-12 12:44 | Hospitalist Progress Note ---
Date of Service July 12, 2019 Assessment & Plan (1) AAA (abdominal aortic aneurysm, ruptured): Status post endovascular repair, POD # 5. Received 8 units of pRBC's as well as 1 bag platelets, 3 units FFP, cryoprecipitate. Hgb 9.5 07/11. (2) Hypovolemic shock: BP as low as 51/36 day of admission. Hypovolemic / hemorrhagic shock secondary to ruptured AAA. Hemodynamics improved with fluid / blood resuscitation. (3) Acute blood loss anemia: Hgb as low as 6.8. Acute blood loss anemia secondary to ruptured AAA. Received 8 units pRBC's. Hgb 9.5 07/11. (4) CAD (coronary artery disease): No anginal symptoms. Resume aspirin and clopidogrel when deemed safe from vascular perspective. Beta kristin changed from atenolol to metoprolol. Continue statin. (5) HTN (hypertension): Receiving metoprolol and lisinopril. Follow and titrate Rx. (6) COPD (chronic obstructive pulmonary disease): Pulmonary status stable post extubation. Incentive spirometry. (7) CKD (chronic kidney disease) stage 3, GFR 30-59 ml/min: Creatinine stable at 0.84. (8) Hypophosphatemia: Serum phosphorus as low as 0.8. Replaced. Phos today = 2.0. Follow. (9) Prediabetes: FBS 102. (10) DVT prophylaxis: SCD's. Ambulate as able. (11) Discharge planning issues: Discharge today to son's home. Family Medicine follow-up with Dr. Denney. Subjective Recheck for multiple problems. Patient seen in their room around 0950. Son visiting. Excited to be going home today. Abdominal / back pain much better. Passing flatus and stool. Review of Systems: Constitutional- no fever. Cardiac- no chest pain. Pulmonary- no cough; no SOB. GI- no nausea, vomiting, diarrhea, melena, hematochezia. - voiding without difficulty. Otherwise, as noted above. Physical Exam Constitutional: no acute distress Respiratory: no respiratory distress Auscultation: lungs clear to auscultation bilaterally Cardiovascular: Rate/Rhythm: regular rate and regular rhythm Heart Sounds: no gallop Vessels: no JVD Extremities: no calf tenderness and no edema Gastrointestinal (Abdomen): Inspection/Auscultation: + abdomen distended Percussion/Palpation: abdomen soft; abdomen nontender Skin: no rashes, warm and dry Psychiatric: Orientation: alert and oriented x 3 Results & Data Vital Signs (Past 12 Hours) Vital Signs Temp Pulse Pulse Resp BP BP Pulse Ox 07/12/19 10:03 37.5 C 73 85 18 170/99 H 171/70 H 92 07/12/19 09:41 37.5 C 73 85 18 171/70 H 92 07/12/19 07:37 37.5 C 85 18 170/99 H 171/70 H 92
--- NOTE | 2019-07-15 15:20 | Operative Report ---
Post Operative Report Pre & Post Diagnosis Operation Date: 07/07/19 11:55 Pre-Op Diagnosis: abdominal aortic aneurysm,ruptured Post-Op Diagnosis: abdominal aortic aneurysm, ruptured I identified the patient and participated in the time-out.: Yes Procedure Operation Date: 07/07/19 11:55 Actual Procedures p Endovascular Aneurysm Repair, Bilateral Cut Down(Bilateral) - Richard Cabrera MD Surgeon Richard Cabrera MD Farmworker Animal MD Corazon Estimated Blood Loss 200 Findings Consistent with Post-Op Diagnosis Specimens none Anesthesia Type General Complications none Disposition Accompanied Patient To Recovery: No Disposition: Surgical ICU Indications Patient is a 79yo female who presented to the ED with flank pain. CT scan showed a rupture of a large 8cm AAA. When seen in the ED she had a BP in the 60's and markedly lethargic. Surgery was quickly discussed with her family and she was taken directly to the operating room. Description of Procedure Patient was taken to the operating room and placed in the supine position. No timeout was done due to patients condition. The abdomen and groins were prepped and draped in the usual fashion. A right groin cutdown was down while lines were being placed and the patient intubated. the right femoral artery was identified. It was puntured and an 8FR sheath inserted. Using an 035 guidewire and a Kumpe catheter the supra renal aorta was wired. The glidewire was then exchanged to a lunderquist wire. The 8FR sheath was then exchanged to an 18FR dry seal sheath. An occlusion balloon was inserted and inflated in the suprarenal aorta. This was kept up for approximately 5 minutes while anesthesia resuscitated her with fluids and blood. During this time the left femoral artery was exposed. This was then cannulated again with an 8 Fr sheath. Using the kumpe catheter and an 035 glidewire the supra renal aorta was cannulated. this wire was also exchanged for a lunderquist wire. the sheath was then exchanged to a 16 Fr dry seal sheath. We were able to deflate the balloon at this time and she remained stable. A 26x14.5x16 mainbody excluder was insertd up the left femoral artery. A chandler wire was inserted up the left side with a pigtail and placed in the suprarenal aorta. An aortogram was then done and the graft placed just below the renals. due to the extensive tortuosity of the aorta exact placement was difficult. We the deployed the graft. Arteriography showed the graft just below the renals. The restraining wire was then removed after pulling the pigtail into the anuerysm sac. We attempted to cannulae the gate but this could not be done. I then deployed the ipsi limb of the graft. Using a de luna's hook catheter we were able to pass a wire out the contralat eral gate and snare it from the left groin. Kumpke catheters were then inserted from both groins on this wire and the wire removed when the catheters were above the main body. The stiff wires were reinserted. A marking pig tail was placed up the left side. the sheath was pulled down into the pelvis and an arteriogram was done. It was decided to use a 18x11.5 contralateral limb. A stiff wire was reinserted and the pig removed. The 16 Fr dilator was reinserted and the sheath passed into the gate. The dilator was removed and the contralateral limb inserted to the appropriate overlap. The sheath was then pulled back and the limb deployed. This landed short of the left iliac bifurcation so we then inserted an 18x9.5 extension to bring it to the iliac bifurcation. We then did a hand injection of the right which showed the right limb into the right iliac only a short distance. We then used a 20x11.5 extension in the right iliac to bring the endograft to the right iliac bifurcation. All overlaps and apposition points were dilated with the Q50 balloon. Once this was done we reinserted the pigtail and did an aortogram. This showed patency of the graft but did have a Type I leak proximally. A 28.5x3.3 cuff was then used to cuff the proximal attachment site and ballooned. Due to the severe angulation of the aorta, I believe the extension piece did partially cover the right renal artery. On arteriography, there was no more Type I leak, left renal artery filled nicely, the right renal had delay fill but did have a quick nephrogram effect. The sheaths in the groins werer then pulled and the common femoral arteries repaired with 5--0 prolene sutures. the incisions were closed with 2-0 vicryl for the femoral sheath, 3-0 Vicryl for the subcutaneous tissue and urvashi for the skin. The patient left the operation room in critical condition but tolerated the procedure well and was stable on her transfer to the ICU. All needle and sponge counts were correct at the end of the procedure. I attest to the content of the Intraoperative Record and any orders documented therein. Any exceptions are noted below.
== END 2019-07-12 11:50 | disposition home or self-care (01) | DRG 268 ==
LOC: ED 10:30 → ASU 12:20 → 1E 15:29 → 3N 07-10 10:49
PROC: EV.EVAR (2019-07-07 11:55)

== ENCOUNTER 2020-11-09 11:49 | Observation (INO) ==
[2020-11-09] MEDS ORDERED: ASPIRIN CHEW 324 MG PO STA (12:12)
[2020-11-09 12:25] LABS: Basophils # (auto) 0.02 K/uL (0-0.2); Basophils % (auto) 0.3 %; Eosinophils # (auto) 0.21 K/uL (0-0.5); Eosinophils % (auto) 3.2 %; Hematocrit (blood only) 36.3 % (37-47); Hemoglobin 12.2 g/dL (12.0-16.0); Immature Granulocytes # (auto) 0.01 K/uL (0.00-0.02); Immature Granulocytes % (auto) 0.2 %; Lymphocytes # (auto) 0.94 K/uL (1.2-3.4); Lymphocytes % (auto) 14.4 %; Mean Corpuscular Hgb Conc 33.6 g/dL (32-36); Mean Corpuscular Volume 89.2 fL (80-100); Mean Platelet Volume 9.6 fL (7.4-10.4); Monocytes # (auto) 0.69 K/uL (0.11-0.59); Monocytes % (auto) 10.5 %; Neutrophils # (auto) 4.68 K/uL (1.4-6.5); Neutrophils % (auto) 71.4 %; Platelet Count 201 K/uL (130-400); RDW Coefficient of Variation 14.2 % (11.5-14.5); RDW Standard Deviation 46.5 fL (36.4-46.3); Red Blood Count 4.07 M/uL (4.2-5.4); White Blood Count 6.55 K/uL (4.8-10.8)
[2020-11-09 12:33] LABS: Partial Thromboplastin Time 25.8 Seconds (21.0-31.0); Prothrombin Time 10.1 Seconds (9.0-12.0)
[2020-11-09 12:35] LABS: iSTAT Creatinine 1.4 mg/dl (0.6-1.3); iSTAT Hemoglobin 11.9 g/dl (12.0-16.0); iSTAT Ionized Calcium 1.35 mmol/l (1.12-1.32); iSTAT Potassium 4.1 mmol/L (3.3-5.0)
[2020-11-09 12:42] LABS: Albumin Level 3.6 gm/dl (3.4-5.0); Aspartate Aminotransferase 11 U/L (15-37); Blood Urea Nitrogen 23 mg/dl (7-18); Calcium 9.8 mg/dl (8.5-10.1); Carbon Dioxide 26 mmol/L (21-32); Chloride 109 mmol/L (98-107); Est GFR (African American) 45.3 ml/min; Est GFR (Non-African American) 39.1 ml/min; Glucose 107 mg/dl (70-99); Lipase 163 U/L (73-393); Sodium 139 mmol/L (136-145)
[2020-11-09 12:46] LABS: D Dimer 2570 ug/L FEU (0-500)
[2020-11-09 12:48] LABS: Alanine Aminotransferase 16 U/L (12-78); Albumin Globulin Ratio 0.9 (0.9-2); Alkaline Phosphatase 78 U/L (45-117); Bilirubin,Total 0.4 mg/dl (0.2-1); Globulin 3.9 gm/dl (2.5-4.0); Total Protein 7.5 gm/dl (6.4-8.2); Troponin I < 0.015 ng/ml (0-0.045)
--- NOTE | 2020-11-09 13:20 | XRay Report ---
XR chest 2V PA/lateral HISTORY: Atypical Chest Pain COMPARISON: Chest 07/09/2019. FINDINGS: The lungs are hyperexpanded with mild apical predominant emphysematous changes. The heart r emains mildly enlarged. Retrocardiac density likely represents a moderate hiatus hernia. Partially vi sualized aortobiiliac stent graft is noted. There are few left basilar linear densities suggestive of scarring or atelectasis. No new focal lung consolidations to suggest pneumonia. No evidence for pulm onary edema. Dextroscoliosis of the thoracolumbar spine. No pleural effusions. No pneumothorax. IMPRESSION: 1. No acute process within the chest. 2. Stable mild cardiomegaly. 3. Emphysema. 4. Moderate hiatus hernia. ACT 112: Negative or not required by law. Electronically signed by: Ty William M.D. 11/09/2020 1:18 PM
[2020-11-09] MEDS ORDERED: OPTIRAY 350 500ml IV ONE (14:00)
--- NOTE | 2020-11-09 14:18 | CT Scan Report ---
CT ANGIOGRAM OF THE CHEST CLINICAL HISTORY: Chest pain and shortness of breath. Left leg pain. Possible acute pulmonary embolis m COMPARISON STUDY: CT scan dated 07/07/2019 TECHNIQUE: Following the IV administration of 105 mL of Optiray, CT angiogram of the thorax was perfo rmed from the thoracic inlet to the lung bases utilizing the pulmonary embolus protocol. Images are r eviewed in the axial, sagittal, and coronal planes. IV contrast was administered without complication . MIP imaging was performed. A dose lowering technique was utilized adhering to the principles of AL KRISTIN. CT DOSE: 465.82 mGycm FINDINGS: No pathologically enlarged axillary mediastinal or hilar lymph nodes were visualized. There was no evidence of thoracic aortic dilatation. There were no pulmonary artery filling defects to indicate acute pulmonary embolism. No pleural effusions are visualized. There is mild basilar atelectasis. There is no focal pulmonary consolidation. There is mild pulmonary emphysema. There is no pneumothorax. There is a 2.5 mm right upper lobe pulmonary nodule. This remai ns unchanged. In addition there are a few scattered pulmonary micronodules. In an average risk patien t, no further follow-up is indicated. There is a hiatal hernia. IMPRESSION: 1. No evidence of acute pulmonary embolism 2. No evidence of acute parenchymal consolidation 3. Mild emphysema 4. Dependent atelectasis 5. Persistent hiatal hernia ACT 112: Negative or not required by law. Electronically signed by: Santosh Myles M.D. 11/09/2020 2:17 PM
--- NOTE | 2020-11-09 14:29 | Ultrasound Report ---
LEFT LOWER EXTREMITY VENOUS DOPPLER HISTORY: Left calf discomfort. COMPARISON STUDY: None. FINDINGS: There is normal compressibility, flow, and augmentation within the left lower extremity maya p venous system. Complex cyst within the posterior/medial knee extending into the proximal calf which measures 9.3 x 6.3 x 2.4 cm. This favors a complex popliteal cyst. This contains internal echoes and septations. No associated color flow to suggest a soft tissue lesion. IMPRESSION: No DVT within the left lower extremity. Complex left popliteal cyst. ACT 112: Negative or not required by law. Electronically signed by: Ty William M.D. 11/09/2020 2:27 PM
--- NOTE | 2020-11-09 14:53 | History & Physical Report ---
Date of Service November 09, 2020 Assessment & Plan (1) Chest pain: This is a 80-year-old female who has significant past medical history of CAD, HTN, HLD, COPD, CKD stage III baseline creatinine 1.5, depression, history of ruptured AAA status post endovascular repair who presents to ED secondary to chest pain x 3 days. She had chest pain for the past 2-3 days. Atypical Chest Pain in setting of risk factors of prior CAD with stenting, HTN, HLD, Pre DM CP currently absent, stated it improved with belching and tums/pepcid. She is already on pantoprazole. Chest pain is not reproducible. CTA negative for PE/pneumonia. admit to [employer] [facility] [employer] [facility] obtain echo consult cardiology ? stress in a.m. Continue PPI - will start pepcid bid monitor BP had lipid panel/a1c done recently, as documented below npo after midnight (2) CAD (coronary artery disease): History of UT with stenting in 2001 in 2002 Follows with cardiology in [place] Dr. Lau on asa, statin, plavix, ramipril and atenolol plan as above (3) HTN (hypertension): Pt modestly hypertensive in ED on atenolol and ramipril as outpt monitor (4) HLD (hyperlipidemia): Continue statin and zetia Fasting lipid panel on 11/01/2020 total cholesterol 170, LDL 74, HDL 65, triglyceride 153 (5) COPD (chronic obstructive pulmonary disease): No acute exacerbation Continue Anoro (6) CKD (chronic kidney disease) stage 3, GFR 30-59 ml/min: Baseline creatinine 1.5 BUN/creatinine 23 and 1.29 today Monitor renal function avoid nephrotoxic agents (7) Prediabetes: A1c 6.1 on 11/01/2020 Diet controlled (8) DVT prophylaxis: SQ Heparin Dispo: [employer] PCP: Dr. Denney FULL CODE Pt was seen and examined in collaboration with Dr. Mclain, please see addendum History of Present Illness Chief Complaint: Chest pain of and on x 3 days. Primary Care Provider: Jasson Denney MD This is a 80-year-old female who has significant past medical history of CAD, HTN, HLD, COPD, CKD stage III baseline creatinine 1.5, depression, history of ruptured AAA status post endovascular repair who presents to ED secondary to chest pain x 3 days. She had chest pain for the past 2-3 days. She was seen in clinic today by department store door greeter who recommended she come to ED for evaluation. Her department store door greeter is Dr. Lau. She has hx of UT in past requiring 2 stents. She has been compliant with her meds. She also c/o L calf pain. Her chest pain is substernal and radiates to back. Pain is rated as a 7/10. She denies radiation to neck and arm. She has never had similar chest pain before. Pain is described as, "ache." She tried pepcid AC and tums. She had belching which eased the pain and pain finally went away. She feels burping for 10 minutes helped. She does take a PPI daily. She is unsure if any food triggered her yesterday as only thing she ate was a bowl or cereal. Pain started yesterday at lunch time and she was watching tv. It lasted approx 30 min and left. She also had this pain a few days ago. Pain is off and on. She does have chronic SOB from COPD but her baseline. She denies any associated nausea or diaphoresis with sx. She denies f/c/s, dizziness, lightheaded, fall, palpitations, n/v/d, abdominal pain, change in bowel or urinary habits. Allergies Allergy/AdvReac Type Severity Reaction Status Date / Time No Known Allergies Allergy Unknown ` Verified 11/09/20 14:17 Home Medications Medication Instructions Recorded Confirmed Type Centrum Women 1 tab PO QAM 07/07/19 11/09/20 History aspirin 81 mg PO Q2D 07/07/19 11/09/20 History atenolol 12.5 mg PO PM 07/07/19 11/09/20 History clopidogrel 75 mg PO QAM 07/07/19 11/09/20 History cyclobenzaprine 10 mg PO TID PRN 07/07/19 11/09/20 History duloxetine 30 mg PO QAM 07/07/19 11/09/20 History ezetimibe 10 mg PO DAILY@1200 07/07/19 11/09/20 History pantoprazole 20 mg PO QAM 07/07/19 11/09/20 History pravastatin 40 mg PO HS 07/07/19 11/09/20 History meclizine 25 mg PO TID PRN #21 tab 11/27/19 11/09/20 Rx ramipril 10 mg capsule 5 mg PO DAILY 02/22/20 11/09/20 History albuterol sulfate [Ventolin HFA] 2 puff INHALATION Q4H PRN 11/09/20 11/09/20 History calcium carbonate-vitamin D3 1 tab PO DAILY 11/09/20 11/09/20 History [Os-Parvez 500 + D3] docusate sodium [Colace] 100 mg PO BID 11/09/20 11/09/20 History polyethylene glycol 3350 17 g PO DAILY 11/09/20 11/09/20 History umeclidinium-vilanterol 1 inh INHALATION DAILY 11/09/20 11/09/20 History Past Med/Surg History Medical History CAD (coronary artery disease) CKD (chronic kidney disease) stage 3, GFR 30-59 ml/min COPD (chronic obstructive pulmonary disease) Depression Heart attack HLD (hyperlipidemia) HTN (hypertension) Prediabetes Retroperitoneal bleed Tobacco abuse Surgical History H/O heart artery stent History of cataract removal with insertion of prosthetic lens History of hysterectomy 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 stent graft Family History Mother CHF (congestive heart failure) Father Emphysema of lung Sister Brain tumor Social History Smoking Status: Former smoker Tobacco Type: Cigarettes Smoking End Date: 07/07/2019; Second Hand Exposure: No; Do You Dip or Chew Tobacco: No; Tobacco Cessation Education Requested by Patient: No Hx Alcohol Use: Yes Alcohol type: wine Hx Substance Use: No Preferred Language: Citizen Of [place] Communication Ability: Effective Corporate Tax Preparer Required: No Beliefs That Will Affect Care: None marital status: / Current Living Situation: Alone current occupational status: retired Other Information That Helps Us Care for You: No Feels Safe at Home: Yes Safety Concerns: Feels Safe At This Time Assistive Devices: None Review of Systems Review of Systems: All systems reviewed & are unremarkable except as noted in HPI & below Physical Exam Physical Exam: Constitutional: WD/WN, F, vitals as above, NAD, sitting up in bed, pleasant, conversing easily Head: Normocephalic, Atraumatic Eyes: PERRL, conjunctivae normal, anicteric sclerae ENMT: external ear and nose normal, oropharynx normal Neck: trachea midline, no thyromegaly normal visual inspection Respiratory: normal respiratory effort, lungs clear to auscultation, no wheeze, rales, rhonchi. Normal insp/exp effort, no accessory muscle use Cardiovascular: RRR, no murmur, LLE Edema, L popliteal cyst noted, no erythema, negative homans Vessels: no JVD or carotid bruit Chest: normal inspection of chest Abdomen: normal bowel sounds, soft, nontender, no hepatosplenomegaly Musculoskeletal: no cyanosis or clubbing, extremities motor strength 5/5 Skin: no rashes, warm and dry normal turgor Neurologic: PERRL, EOMI, accommodation nl, no face palsy, no dysarthria CN's II-XI intact bilaterally and moves all extremities Psychiatric: A+Ox3, euthymic affect : deferred Results & Data Results & Data ([facility]) Vital Signs (Past 12 Hours) Vital Signs Temp Pulse Resp BP Pulse Ox 11/09/20 12:50 68 23 94 11/09/20 12:45 69 20 150/78 H 94 11/09/20 12:40 72 23 93 11/09/20 12:31 71 17 95 11/09/20 12:30 70 13 143/68 H 93 11/09/20 12:21 74 17 94 11/09/20 12:20 73 21 133/97 94 11/09/20 12:11 72 22 96 11/09/20 12:07 72 18 155/71 H 95 11/09/20 11:52 36.5 C 88 20 165/80 H 93 Diagnostic Findings Chest X-Ray 11/09/20 12:12 XR chest 2V PA/lateral HISTORY: Atypical Chest Pain COMPARISON: Chest 07/09/2019. FINDINGS: The lungs are hyperexpanded with mild apical predominant emphysematous changes. The heart remains mildly enlarged. Retrocardiac density likely represents a moderate hiatus hernia. Partially visualized aortobiiliac stent graft is noted. There are few left basilar linear densities suggestive of scarring or atelectasis. No new focal lung consolidations to suggest pneumonia. No evidence for pulmonary edema. Dextroscoliosis of the thoracolumbar spine. No pleural effusions. No pneumothorax. IMPRESSION: 1. No acute process within the chest. 2. Stable mild cardiomegaly. 3. Emphysema. 4. Moderate hiatus hernia. ACT 112: Negative or not required by law. Electronically signed by: Ty William M.D. 11/09/2020 1:18 PM Venous Doppler Study 11/09/20 12:26 LEFT LOWER EXTREMITY VENOUS DOPPLER HISTORY: Left calf discomfort. COMPARISON STUDY: None. FINDINGS: There is normal compressibility, flow, and augmentation within the left lower extremity deep venous system. Complex cyst within the posterior/medial knee extending into the proximal calf which measures 9.3 x 6.3 x 2.4 cm. This favors a complex popliteal cyst. This contains internal echoes and septations. No associated color flow to suggest a soft tissue lesion. IMPRESSION: No DVT within the left lower extremity. Complex left popliteal cyst. ACT 112: Negative or not required by law. Electronically signed by: Ty William M.D. 11/09/2020 2:27 PM Chest CTA 11/09/20 13:35 CT ANGIOGRAM OF THE CHEST CLINICAL HISTORY: Chest pain and shortness of breath. Left leg pain. Possible acute pulmonary embolism COMPARISON STUDY: CT scan dated 07/07/2019 TECHNIQUE: Following the IV administration of 105 mL of Optiray, CT angiogram of the thorax was performed from the thoracic inlet to the lung bases utilizing the pulmonary embolus protocol. Images are reviewed in the axial, sagittal, and coronal planes. IV contrast was administered without complication. MIP imaging was performed. A dose lowering technique was utilized adhering to the principles of ALARA. CT DOSE: 465.82 mGycm FINDINGS: No pathologically enlarged axillary mediastinal or hilar lymph nodes were visualized. There was no evidence of thoracic aortic dilatation. There were no pulmonary artery filling defects to indicate acute pulmonary embolism. No pleural effusions are visualized. There is mild basilar atelectasis. There is no focal pulmonary consolidation. There is mild pulmonary emphysema. There is no pneumothorax. There is a 2.5 mm right upper lobe pulmonary nodule. This remains unchanged. In addition there are a few scattered pulmonary micronodules. In an average risk patient, no further follow-up is indicated. There is a hiatal hernia. IMPRESSION: 1. No evidence of acute pulmonary embolism 2. No evidence of acute parenchymal consolidation 3. Mild emphysema 4. Dependent atelectasis 5. Persistent hiatal hernia ACT 112: Negative or not required by law. Electronically signed by: Santosh Myles M.D. 11/09/2020 2:17 PM Medications Administered Medication List Discontinued Medications Aspirin (Aspirin Chew 324 Mg) 324 mg PO NOW STA Stop: 11/09/20 12:13 Last Admin: 11/09/20 12:17 Dose: 324 mg Documented by: [id number] Ioversol (Optiray 350 500ml) 105 ml IV ONCE ONE Stop: 11/09/20 14:01 Last Admin: 11/09/20 14:00 Dose: 105 ml Documented by: [id number] ECG Rate (beats per minute): 73 Comparison ECG Date: from (11/27/19) Change: the following changes noted Additional Comments: inferior inverted T waves COVID-19 Results Results COVID-19 Adm Lab Results: RBC 4.07 M/uL (4.2-5.4) L 11/09/20 WBC 6.55 K/uL (4.8-10.8) 11/09/20 Hgb 12.2 g/dL (12.0-16.0) 11/09/20 Hct 36.3 % (37-47) L 11/09/20 Plt Count 201 K/uL (130-400) 11/09/20 Neutrophils (%) (Auto) 71.4 % 11/09/20 Lymphocytes (%) (Auto) 14.4 % 11/09/20 Monocytes # (Auto) 0.69 K/uL (0.11-0.59) H 11/09/20 Eosinophils # (Auto) 0.21 K/uL (0-0.5) 11/09/20 Immature Granulocyte % (Auto) 0.2 % 11/09/20 Neutrophils # (Auto) 4.68 K/uL (1.4-6.5) 11/09/20 Lymphocytes # (Auto) 0.94 K/uL (1.2-3.4) L 11/09/20 Monocytes # (Auto) 0.69 K/uL (0.11-0.59) H 11/09/20 Eosinophils # (Auto) 0.21 K/uL (0-0.5) 11/09/20 Basophils # (Auto) 0.02 K/uL (0-0.2) 11/09/20 Immature Granulocyte # (Auto) 0.01 K/uL (0.00-0.02) 11/09/20 Na 139 mmol/L (136-145) 11/09/20 K 4.0 mmol/L (3.5-5.1) 11/09/20 Cl 109 mmol/L (98-107) H 11/09/20 CO2 26 mmol/L (21-32) 11/09/20 Anion Gap 4.0 (3-11) 11/09/20 BUN 23 mg/dl (7-18) H 11/09/20 Creatinine 1.29 mg/dl (0.6-1.2) H 11/09/20 BUN/Creatinine Ratio 18.0 (10-20) 11/09/20 Glucose Level 107 mg/dl (70-99) H 11/09/20 Ca 9.8 mg/dl (8.5-10.1) 11/09/20 Total Bilirubin 0.4 mg/dl (0.2-1) 11/09/20 AST/SGOT 11 U/L (15-37) L 11/09/20 ALT/SGPT 16 U/L (12-78) 11/09/20 Alkaline Phosphatase 78 U/L (45-117) 11/09/20 Total Protein 7.5 gm/dl (6.4-8.2) 11/09/20 Albumin 3.6 gm/dl (3.4-5.0) 11/09/20 Globulin 3.9 gm/dl (2.5-4.0) 11/09/20 Albumin/Globulin Ratio 0.9 (0.9-2) 11/09/20 Troponin I < 0.015 ng/ml (0-0.045) 11/09/20 D-Dimer 2570 ug/L FEU (0-500) H* 11/09/20 PTT 25.8 Seconds (21.0-31.0) 11/09/20 INR 1.0 (0.9-1.1) 11/09/20 COVID-19 PCR NEGATIVE (Negative) 11/09/20 Chest X-Ray 11/09/20 Code Status & VTE Plan Code Status Full Code VTE Prophylaxis Plan VTE Prophylaxis will be ordered: Yes Supervising Physician Co-Signing Physician Notes Patient is an 80-year-old female with multiple comorbidities presents with history of retrosternal chest pain since 3 days duration. She admits to having chest pain radiating to her back which lasted for approximately 30 minutes. Chest pain is associated with multiple episodes of burping. Patient was evaluated by her primary department store door greeter today who recommended to be evaluated in ED. Please review HPI for complete details of presentation. Her initial troponin is negative. EKG showed inverted T waves in the inferior leads. On exam patient is moderately built and nourished, no apparent distress, normocephalic atraumatic, lungs-normal breath sounds, clear to auscultation, S1- S2, no murmur, +B/L LE edema left greater than right, abdomen soft, nontender, normal bowel sounds, alert, awake, oriented, grossly no focal deficits. Patient is admitted for management of atypical chest pain, rule out ACS. Given history of CAD with prior stenting, will consult cardiology for further evaluation. Will trend cardiac enzymes, check resting echo and repeat EKG in the morning. CTA showed no evidence of acute pulmonary embolism, consolidation. Continue a spirin, atenolol, Plavix, statin. I personally reviewed the record. Patient is interviewed and examined at bedside. Patient's care is coordinated with Pamela Timmons PA-C. Please refer to the documentation above for details of patient's presentation and for discussion of other issues.
--- NOTE | 2020-11-09 15:48 | Electrocardiogram Report ---
Test Reason : Blood Pressure : / mmHG Vent. Rate : 073 BPM Atrial Rate : 073 BPM P-R Int : 162 ms QRS Dur : 080 ms QT Int : 402 ms P-R-T Axes : 059 005 -05 degrees QTc Int : 442 ms Normal sinus rhythm Abnormal ECG When compared with ECG of 27-NOV-2019 12:51, Inverted T waves have replaced nonspecific T wave abnormality in Inferior leads Confirmed by Connor Solares ([id number]) on 11/09/2020 3:47:54 PM Referred By: REFERRED SELF Confirmed By:Connor Solares
--- NOTE | 2020-11-09 17:20 | Emergency Department Note ---
History of Present Illness General Chief Complaint: Chest Pain Stated Complaint: CHEST PAIN,LEFT LEG SWELLING Time Seen by Provider: 11/09/20 12:09 History of Present Illness Provider Complaint: chest pain Onset (ago): day(s) 2 Duration: intermittent and improved Onset: during rest Pain Location: substernal Pain Radiation: none Severity: mild Quality: + dull Relieved By: + nothing Exacerbated By: + nothing Context: no recent illness, no recent surgery, no recent travel and no trauma/injury Associated symptoms: + leg swelling; no nausea, no vomiting, no diaphoresis, no dyspnea, no syncope, no palpitations, no fever and no cough Sent in by outpatient cardiology Home Medications Medication Instructions Recorded Confirmed Type Centrum Women 1 tab PO QAM 07/07/19 11/09/20 History aspirin 81 mg PO Q2D 07/07/19 11/09/20 History atenolol 12.5 mg PO PM 07/07/19 11/09/20 History clopidogrel 75 mg PO QAM 07/07/19 11/09/20 History cyclobenzaprine 10 mg PO TID PRN 07/07/19 11/09/20 History duloxetine 30 mg PO QAM 07/07/19 11/09/20 History ezetimibe 10 mg PO DAILY@1200 07/07/19 11/09/20 History pantoprazole 20 mg PO QAM 07/07/19 11/09/20 History pravastatin 40 mg PO HS 07/07/19 11/09/20 History meclizine 25 mg PO TID PRN #21 tab 11/27/19 11/09/20 Rx ramipril 10 mg capsule 5 mg PO DAILY 02/22/20 11/09/20 History albuterol sulfate [Ventolin HFA] 2 puff INHALATION Q4H PRN 11/09/20 11/09/20 History calcium carbonate-vitamin D3 1 tab PO DAILY 11/09/20 11/09/20 History [Os-Parvez 500 + D3] docusate sodium [Colace] 100 mg PO BID 11/09/20 11/09/20 History polyethylene glycol 3350 17 g PO DAILY 11/09/20 11/09/20 History umeclidinium-vilanterol 1 inh INHALATION DAILY 11/09/20 11/09/20 History Allergies Allergy/AdvReac Type Severity Reaction Status Date / Time No Known Allergies Allergy Unknown ` Verified 11/09/20 14:17 Past Med/Surg History Medical History CAD (coronary artery disease) CKD (chronic kidney disease) stage 3, GFR 30-59 ml/min COPD (chronic obstructive pulmonary disease) Depression Heart attack HLD (hyperlipidemia) HTN (hypertension) Prediabetes Retroperitoneal bleed Tobacco abuse Surgical History H/O heart artery stent History of cataract removal with insertion of prosthetic lens History of hysterectomy 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 stent graft Family History Mother CHF (congestive heart failure) Father Emphysema of lung Sister Brain tumor Social History Smoking Status: Former smoker Tobacco Type: Cigarettes Smoking End Date: 07/07/2019; Hx Alcohol Use: Yes Hx Substance Use: No Preferred Language: Moroccan Communication Ability: Effective marital status: / Current Living Situation: Spouse current occupational status: retired Feels Safe at Home: Yes Assistive Devices: None Review of Systems A total of 10 systems reviewed and were otherwise negative Physical Exam Vital Signs Vital Signs - 24 hr 11/09/20 11:52 11/09/20 12:07 11/09/20 12:11 Temperature 36.5 C Temperature Source Skin Pulse Rate 88 72 72 Pulse Rate from SpO2 Sensor 73 75 Pulse Rhythm Respiratory Rate 20 18 22 Respiratory Effort / Characteristics Non-Labored Spontaneous Respiratory Depth Normal Respiratory Pattern Regular Blood Pressure 165/80 H 155/71 H Blood Pressure Mean 108 99 Pulse Oximetry 93 95 96 Oxygen Delivery Method Room Air Sepsis Recent Fever Within 48 Hours No Sepsis New/Unexplained Change in Mental Status N/A Sepsis Action Taken by Nursing No Action Required 11/09/20 12:18 11/09/20 12:20 11/09/20 12:21 Temperature Temperature Source Pulse Rate 73 74 Pulse Rate from SpO2 Sensor 74 73 Pulse Rhythm Regular Respiratory Rate 21 17 Respiratory Effort / Characteristics Respiratory Depth Respiratory Pattern Blood Pressure 133/97 Blood Pressure Mean 109 Pulse Oximetry 94 94 Oxygen Delivery Method Sepsis Recent Fever Within 48 Hours Sepsis New/Unexplained Change in Mental Status Sepsis Action Taken by Nursing 11/09/20 12:30 11/09/20 12:31 11/09/20 12:40 Temperature Temperature Source Pulse Rate 70 71 72 Pulse Rate from SpO2 Sensor 70 70 72 Pulse Rhythm Respiratory Rate 13 17 23 Respiratory Effort / Characteristics Respiratory Depth Respiratory Pattern Blood Pressure 143/68 H Blood Pressure Mean 93 Pulse Oximetry 93 95 93 Oxygen Delivery Method Sepsis Recent Fever Within 48 Hours Sepsis New/Unexplained Change in Mental Status Sepsis Action Taken by Nursing 11/09/20 12:45 11/09/20 12:50 11/09/20 13:59 Temperature Temperature Source Pulse Rate 69 68 75 Pulse Rate from SpO2 Sensor 69 69 Pulse Rhythm Respiratory Rate 20 23 15 Respiratory Effort / Characteristics Respiratory Depth Respiratory Pattern Blood Pressure 150/78 H Blood Pressure Mean 102 Pulse Oximetry 94 94 Oxygen Delivery Method Sepsis Recent Fever Within 48 Hours Sepsis New/Unexplained Change in Mental Status Sepsis Action Taken by Nursing 11/09/20 14:00 11/09/20 14:43 11/09/20 14:46 Temperature Temperature Source Pulse Rate 75 73 73 Pulse Rate from SpO2 Sensor 74 Pulse Rhythm Respiratory Rate 19 22 25 H Respiratory Effort / Characteristics Respiratory Depth Respiratory Pattern Blood Pressure 128/94 Blood Pressure Mean 105 Pulse Oximetry 96 Oxygen Delivery Method Sepsis Recent Fever Within 48 Hours Sepsis New/Unexplained Change in Mental Status Sepsis Action Taken by Nursing 11/09/20 14:50 11/09/20 15:00 11/09/20 15:05 Temperature Temperature Source Pulse Rate 74 74 76 Pulse Rate from SpO2 Sensor 73 75 74 Pulse Rhythm Respiratory Rate 21 17 26 H Respiratory Effort / Characteristics Respiratory Depth Respiratory Pattern Blood Pressure 153/125 H 160/85 H Blood Pressure Mean 134 110 Pulse Oximetry 97 94 96 Oxygen Delivery Method Sepsis Recent Fever Within 48 Hours Sepsis New/Unexplained Change in Mental Status Sepsis Action Taken by Nursing 11/09/20 15:10 11/09/20 15:15 11/09/20 15:20 Temperature Temperature Source Pulse Rate 73 71 73 Pulse Rate from SpO2 Sensor 72 72 Pulse Rhythm Respiratory Rate 20 16 18 Respiratory Effort / Characteristics Respiratory Depth Respiratory Pattern Blood Pressure 167/100 H Blood Pressure Mean 122 Pulse Oximetry 96 95 Oxygen Delivery Method Sepsis Recent Fever Within 48 Hours Sepsis New/Unexplained Change in Mental Status Sepsis Action Taken by Nursing 11/09/20 15:30 11/09/20 15:40 11/09/20 15:45 Temperature Temperature Source Pulse Rate 76 73 77 Pulse Rate from SpO2 Sensor 75 73 78 Pulse Rhythm Respiratory Rate 21 24 17 Respiratory Effort / Characteristics Respiratory Depth Respiratory Pattern Blood Pressure 180/64 H 173/89 H Blood Pressure Mean 102 117 Pulse Oximetry 96 95 97 Oxygen Delivery Method Sepsis Recent Fever Within 48 Hours Sepsis New/Unexplained Change in Mental Status Sepsis Action Taken by Nursing 11/09/20 15:50 11/09/20 16:00 11/09/20 16:01 Temperature Temperature Source Pulse Rate 72 73 73 Pulse Rate from SpO2 Sensor 72 73 75 Pulse Rhythm Respiratory Rate 25 H 32 H 27 H Respiratory Effort / Characteristics Respiratory Depth Respiratory Pattern Blood Pressure 174/104 H Blood Pressure Mean 127 Pulse Oximetry 95 94 95 Oxygen Delivery Method Sepsis Recent Fever Within 48 Hours Sepsis New/Unexplained Change in Mental Status Sepsis Action Taken by Nursing 11/09/20 16:10 11/09/20 16:15 11/09/20 16:20 Temperature Temperature Source Pulse Rate 72 71 72 Pulse Rate from SpO2 Sensor 72 71 74 Pulse Rhythm Respiratory Rate 22 16 28 H Respiratory Effort / Characteristics Respiratory Depth Respiratory Pattern Blood Pressure 165/91 H Blood Pressure Mean 115 Pulse Oximetry 94 96 94 Oxygen Delivery Method Sepsis Recent Fever Within 48 Hours Sepsis New/Unexplained Change in Mental Status Sepsis Action Taken by Nursing 11/09/20 16:30 11/09/20 16:31 11/09/20 16:40 Temperature Temperature Source Pulse Rate 74 71 77 Pulse Rate from SpO2 Sensor 75 71 75 Pulse Rhythm Respiratory Rate 23 20 21 Respiratory Effort / Characteristics Respiratory Depth Respiratory Pattern Blood Pressure 151/113 H Blood Pressure Mean 125 Pulse Oximetry 94 95 96 Oxygen Delivery Method Sepsis Recent Fever Within 48 Hours Sepsis New/Unexplained Change in Mental Status Sepsis Action Taken by Nursing 11/09/20 16:46 11/09/20 16:50 11/09/20 17:00 Temperature Temperature Source Pulse Rate 68 74 73 Pulse Rate from SpO2 Sensor 70 75 73 Pulse Rhythm Respiratory Rate 21 25 H 16 Respiratory Effort / Characteristics Respiratory Depth Respiratory Pattern Blood Pressure 165/84 H 176/76 H Blood Pressure Mean 111 109 Pulse Oximetry 96 96 96 Oxygen Delivery Method Sepsis Recent Fever Within 48 Hours Sepsis New/Unexplained Change in Mental Status Sepsis Action Taken by Nursing 11/09/20 17:01 Temperature Temperature Source Pulse Rate 73 Pulse Rate from SpO2 Sensor 73 Pulse Rhythm Respiratory Rate 15 Respiratory Effort / Characteristics Respiratory Depth Respiratory Pattern Blood Pressure Blood Pressure Mean Pulse Oximetry 97 Oxygen Delivery Method Sepsis Recent Fever Within 48 Hours Sepsis New/Unexplained Change in Mental Status Sepsis Action Taken by Nursing Physical Exam GENERAL: She is oriented to person, place, and time. She appears well-developed and well-nourished. She does not appear distressed. HENT: Exam performed. -Head: Normocephalic and atraumatic. -Right Ear: External ear normal. No mastoid tenderness. -Left Ear: External ear normal. No mastoid tenderness. -Mouth/Throat: The oropharynx is clear and moist. No trismus in the jaw. No dental abscesses or uvula swelling. No oropharyngeal exudate or tonsillar abscesses. EYES: Conjunctivae and EOM are normal. Pupils are equal, round, and reactive to light. Right eye exhibits no discharge. Left eye exhibits no discharge. No scleral icterus. NECK: Normal range of motion. Neck supple. No JVD present. No spinous process tenderness present. No carotid bruit present. No rigidity. No tracheal deviation and normal range of motion present. No Brudzinski's sign and no Kernig's sign noted. CV: Normal rate, regular rhythm, normal heart sounds and intact distal pulses. There is no peripheral edema. Palpable radial pulses bue. PULM/CHEST: Effort normal and breath sounds normal. No respiratory distress. No stridor. She has no wheezes. She has no rales. -Chest Wall: She exhibits no tenderness. ABD: The abdomen is soft. Bowel sounds are normal. She has no distension. No mass is present. There is no tenderness. There is no rebound, no guarding, no Bazzi's sign and no tenderness at McBurney's point. Rovsig negative MUSC/SKEL: Normal range of motion. There is no peripheral edema, tenderness or deformity. LYMPH: No cervical adenopathy. NEURO: She is alert and oriented to person, place, and time. She has normal strength. No cranial nerve deficit or sensory deficit. Coordination and gait normal. GCS eye subscore is 4. GCS verbal subscore is 5. GCS motor subscore is 6. Cerebellar tests wnl. SKIN: Skin is warm and dry. She is not diaphoretic. PSYCH: She has a normal mood and affect. Behavior is normal. Judgment and thought content normal. Course Course 1209: The patient was evaluated in room B7. A complete history and physical exam was performed Cardiac monitoring: An order was placed for continuous cardiac monitoring. The monitor shows a rate of 80 with paced rhythm 1445: Vital signs stable. Labs within normal limits with exception of elevated D-dimer. Imaging within normal limits. Patient has a moderate to high heart score, patient will be admitted to the [facility] hospitalist team Dr. Mills service notified. Administered Medications Discontinued Medications Aspirin (Aspirin Chew 324 Mg) 324 mg PO NOW STA Stop: 11/09/20 12:13 Last Admin: 11/09/20 12:17 Dose: 324 mg Documented by: [id number] Ioversol (Optiray 350 500ml) 105 ml IV ONCE ONE Stop: 11/09/20 14:01 Last Admin: 11/09/20 14:00 Dose: 105 ml Documented by: [id number] Medical Decision Making Laboratory Data Result diagrams: 11/09/20 12:10 11/09/20 12:10 Labs: Lab Results 11/09/20 11/09/20 11/09/20 Range/Units 12:10 12:10 12:10 WBC 6.55 (4.8-10.8) K/uL RBC 4.07 L (4.2-5.4) M/uL Hgb 12.2 (12.0-16.0) g/dL POC Hgb (12.0-16.0) g/dl Hct 36.3 L (37-47) % POC Hct (37-47) % MCV 89.2 (80-100) fL MCH 30.0 (25-34) pg MCHC 33.6 (32-36) g/dL RDW Std Deviation 46.5 H (36.4-46.3) fL RDW Coeff of Adalid 14.2 (11.5-14.5) % Plt Count 201 (130-400) K/uL MPV 9.6 (7.4-10.4) fL Immature Gran % (Auto) 0.2 % Neut % (Auto) 71.4 % Lymph % (Auto) 14.4 % Spencer % (Auto) 10.5 % Eos % (Auto) 3.2 % Baso % (Auto) 0.3 % Neut # (Auto) 4.68 (1.4-6.5) K/uL Lymph # (Auto) 0.94 L (1.2-3.4) K/uL Spencer # (Auto) 0.69 H (0.11-0.59) K/uL Eos # (Auto) 0.21 (0-0.5) K/uL Baso # (Auto) 0.02 (0-0.2) K/uL Immature Gran # (Auto) 0.01 (0.00-0.02) K/uL PT 10.1 (9.0-12.0) Seconds INR 1.0 (0.9-1.1) APTT 25.8 (21.0-31.0) Seconds PTT Ratio 1.0 D-Dimer (0-500) ug/L FEU POC Sodium (135-144) mmol/L Sodium 139 (136-145) mmol/L POC Potassium (3.3-5.0) mmol/L Potassium 4.0 (3.5-5.1) mmol/L POC Chloride (101-112) mmol/L Chloride 109 H (98-107) mmol/L Carbon Dioxide 26 (21-32) mmol/L POC Total CO2 (24-31) mmol/L Anion Gap 4.0 (3-11) POC Anion Gap (16-25) mmol/L POC BUN (7-18) mg/dl BUN 23 H (7-18) mg/dl Creatinine 1.29 H (0.6-1.2) mg/dl POC Creatinine (0.6-1.3) mg/dl Est Cr Clr Drug Dosing 38.0 ml/min Est GFR ( Amer) 45.3 ml/min Est GFR (Non-Af Amer) 39.1 ml/min BUN/Creatinine Ratio 18.0 (10-20) Glucose 107 H (70-99) mg/dl POC Glucose (other) (70-99) mg/dl Calcium 9.8 (8.5-10.1) mg/dl POC Ioniz Calcium Jett (1.12-1.32) mmol/l Total Bilirubin 0.4 (0.2-1) mg/dl AST 11 L (15-37) U/L ALT 16 (12-78) U/L Alkaline Phosphatase 78 (45-117) U/L Troponin I < 0.015 (0-0.045) ng/ml Total Protein 7.5 (6.4-8.2) gm/dl Albumin 3.6 (3.4-5.0) gm/dl Globulin 3.9 (2.5-4.0) gm/dl Albumin/Globulin Ratio 0.9 (0.9-2) Lipase 163 (73-393) U/L COVID-19 Eval Order SARS-CoV-2 (PCR) (Negative) 11/09/20 11/09/20 11/09/20 Range/Units 12:10 12:22 14:48 WBC (4.8-10.8) K/uL RBC (4.2-5.4) M/uL Hgb (12.0-16.0) g/dL POC Hgb 11.9 L (12.0-16.0) g/dl Hct (37-47) % POC Hct 35 L (37-47) % MCV (80-100) fL MCH (25-34) pg MCHC (32-36) g/dL RDW Std Deviation (36.4-46.3) fL RDW Coeff of Adalid (11.5-14.5) % Plt Count (130-400) K/uL MPV (7.4-10.4) fL Immature Gran % (Auto) % Neut % (Auto) % Lymph % (Auto) % Spencer % (Auto) % Eos % (Auto) % Baso % (Auto) % Neut # (Auto) (1.4-6.5) K/uL Lymph # (Auto) (1.2-3.4) K/uL Spencer # (Auto) (0.11-0.59) K/uL Eos # (Auto) (0-0.5) K/uL Baso # (Auto) (0-0.2) K/uL Immature Gran # (Auto) (0.00-0.02) K/uL PT (9.0-12.0) Seconds INR (0.9-1.1) APTT (21.0-31.0) Seconds PTT Ratio D-Dimer 2570 H* (0-500) ug/L FEU POC Sodium 141 (135-144) mmol/L Sodium (136-145) mmol/L POC Potassium 4.1 (3.3-5.0) mmol/L Potassium (3.5-5.1) mmol/L POC Chloride 105 (101-112) mmol/L Chloride (98-107) mmol/L Carbon Dioxide (21-32) mmol/L POC Total CO2 27 (24-31) mmol/L Anion Gap (3-11) POC Anion Gap 13.0 L (16-25) mmol/L POC BUN 23 H (7-18) mg/dl BUN (7-18) mg/dl Creatinine (0.6-1.2) mg/dl POC Creatinine 1.4 H (0.6-1.3) mg/dl Est Cr Clr Drug Dosing ml/min Est GFR ( Amer) ml/min Est GFR (Non-Af Amer) ml/min BUN/Creatinine Ratio (10-20) Glucose (70-99) mg/dl POC Glucose (other) 106 H (70-99) mg/dl Calcium (8.5-10.1) mg/dl POC Ioniz Calcium Jett 1.35 H (1.12-1.32) mmol/l Total Bilirubin (0.2-1) mg/dl AST (15-37) U/L ALT (12-78) U/L Alkaline Phosphatase (45-117) U/L Troponin I (0-0.045) ng/ml Total Protein (6.4-8.2) gm/dl Albumin (3.4-5.0) gm/dl Globulin (2.5-4.0) gm/dl Albumin/Globulin Ratio (0.9-2) Lipase (73-393) U/L COVID-19 Eval Order Covid19 at [facility] SARS-CoV-2 (PCR) (Negative) 11/09/20 Range/Units 14:48 WBC (4.8-10.8) K/uL RBC (4.2-5.4) M/uL Hgb (12.0-16.0) g/dL POC Hgb (12.0-16.0) g/dl Hct (37-47) % POC Hct (37-47) % MCV (80-100) fL MCH (25-34) pg MCHC (32-36) g/dL RDW Std Deviation (36.4-46.3) fL RDW Coeff of Adalid (11.5-14.5) % Plt Count (130-400) K/uL MPV (7.4-10.4) fL Immature Gran % (Auto) % Neut % (Auto) % Lymph % (Auto) % Spencer % (Auto) % Eos % (Auto) % Baso % (Auto) % Neut # (Auto) (1.4-6.5) K/uL Lymph # (Auto) (1.2-3.4) K/uL Spencer # (Auto) (0.11-0.59) K/uL Eos # (Auto) (0-0.5) K/uL Baso # (Auto) (0-0.2) K/uL Immature Gran # (Auto) (0.00-0.02) K/uL PT (9.0-12.0) Seconds INR (0.9-1.1) APTT (21.0-31.0) Seconds PTT Ratio D-Dimer (0-500) ug/L FEU POC Sodium (135-144) mmol/L Sodium (136-145) mmol/L POC Potassium (3.3-5.0) mmol/L Potassium (3.5-5.1) mmol/L POC Chloride (101-112) mmol/L Chloride (98-107) mmol/L Carbon Dioxide (21-32) mmol/L POC Total CO2 (24-31) mmol/L Anion Gap (3-11) POC Anion Gap (16-25) mmol/L POC BUN (7-18) mg/dl BUN (7-18) mg/dl Creatinine (0.6-1.2) mg/dl POC Creatinine (0.6-1.3) mg/dl Est Cr Clr Drug Dosing ml/min Est GFR ( Amer) ml/min Est GFR (Non-Af Amer) ml/min BUN/Creatinine Ratio (10-20) Glucose (70-99) mg/dl POC Glucose (other) (70-99) mg/dl Calcium (8.5-10.1) mg/dl POC Ioniz Calcium Jett (1.12-1.32) mmol/l Total Bilirubin (0.2-1) mg/dl AST (15-37) U/L ALT (12-78) U/L Alkaline Phosphatase (45-117) U/L Troponin I (0-0.045) ng/ml Total Protein (6.4-8.2) gm/dl Albumin (3.4-5.0) gm/dl Globulin (2.5-4.0) gm/dl Albumin/Globulin Ratio (0.9-2) Lipase (73-393) U/L COVID-19 Eval Order SARS-CoV-2 (PCR) NEGATIVE (Negative) Imaging Data Chest x-ray: Radiologist's impression: XR chest 2V PA/lateral HISTORY: Atypical Chest Pain COMPARISON: Chest 07/09/2019. FINDINGS: The lungs are hyperexpanded with mild apical predominant emphysematous changes. The heart remains mildly enlarged. Retrocardiac density likely represents a moderate hiatus hernia. Partially visualized aortobiiliac stent graft is noted. There are few left basilar linear densities suggestive of scarring or atelectasis. No new focal lung consolidations to suggest pneumonia. No evidence for pulmonary edema. Dextroscoliosis of the thoracolumbar spine. No pleural effusions. No pneumothorax. IMPRESSION: 1. No acute process within the chest. 2. Stable mild cardiomegaly. 3. Emphysema. 4. Moderate hiatus hernia. ACT 112: Negative or not required by law. Electronically signed by: Ty William M.D. 11/09/2020 1:18 PM Dictated: 11/09/20 1317 Transcribed: 11/09/[address] scan - chest: Radiologist's impression: CT ANGIOGRAM OF THE CHEST CLINICAL HISTORY: Chest pain and shortness of breath. Left leg pain. Possible acute pulmonary embolism COMPARISON STUDY: CT scan dated 07/07/2019 TECHNIQUE: Following the IV administration of 105 mL of Optiray, CT angiogram of the thorax was performed from the thoracic inlet to the lung bases utilizing the pulmonary embolus protocol. Images are reviewed in the axial, sagittal, and coronal planes. IV contrast was administered without complication. MIP imaging was performed. A dose lowering technique was utilized adhering to the principles of ALARA. CT DOSE: 465.82 mGycm FINDINGS: No pathologically enlarged axillary mediastinal or hilar lymph nodes were visualized. There was no evidence of thoracic aortic dilatation. There were no pulmonary artery filling defects to indicate acute pulmonary embolism. No pleural effusions are visualized. There is mild basilar atelectasis. There is no focal pulmonary consolidation. There is mild pulmonary emphysema. There is no pneumothorax. There is a 2.5 mm right upper lobe pulmonary nodule. This remains unchanged. In addition there are a few scattered pulmonary micronodules. In an average risk patient, no further follow-up is indicated. There is a hiatal hernia. IMPRESSION: 1. No evidence of acute pulmonary embolism 2. No evidence of acute parenchymal consolidation 3. Mild emphysema 4. Dependent atelectasis 5. Persistent hiatal hernia ACT 112: Negative or not required by law. Electronically signed by: Santosh Myles M.D. 11/09/2020 2:17 PM Dictated: 11/09/20 1404 Transcribed: 11/09/20 1411 Venous US: Radiologist's impression: LEFT LOWER EXTREMITY VENOUS DOPPLER HISTORY: Left calf discomfort. COMPARISON STUDY: None. FINDINGS: There is normal compressibility, flow, and augmentation within the left lower extremity deep venous system. Complex cyst within the posterior/medial knee extending into the proximal calf which measures 9.3 x 6.3 x 2.4 cm. This favors a complex popliteal cyst. This contains internal echoes and septations. No associated color flow to suggest a soft tissue lesion. IMPRESSION: No DVT within the left lower extremity. Complex left popliteal cyst. ACT 112: Negative or not required by law. Electronically signed by: Ty William M.D. 11/09/2020 2:27 PM Dictated: 11/09/20 1426 Transcribed: 11/09/20 1426 ECG Data Additional Comments: Paced rhythm with a rate of 76. CT QRS and QTc intervals within normal limits. No ST elevation or ST depression. MDM Narrative Vital signs stable. Labs within normal limits with exception of elevated D- dimer. Imaging within normal limits. Patient has a moderate to high heart score, patient will be admitted to the [facility] hospitalist team Dr. Mills service notified. Impression & Plan Chest pain Discharge Plan Visit Data Chief Complaint: Chest Pain Stated Complaint: CHEST PAIN,LEFT LEG SWELLING ED Provider: Laureano Marrero Discharge Problem: Chest pain Patient Disposition: Being Evaluated by Hospitalist Forms Stand Alone Forms: [facility] [employer] Prescriptions Prescriptions: No Action ramipril 10 mg capsule 5 mg PO DAILY RF: 0 cyclobenzaprine 10 mg Tablet 10 mg PO TID PRN (Reason: Muscle Spasm) RF: 0 pravastatin 40 mg tablet 40 mg PO HS RF: 0 atenolol 25 mg tablet 12.5 mg PO PM RF: 0 clopidogrel 75 mg tablet 75 mg PO QAM RF: 0 aspirin 81 mg Tablet,Delayed Release (Dr/Ec) 81 mg PO Q2D RF: 0 pantoprazole 20 mg tablet,delayed release (DR/EC) 20 mg PO QAM RF: 0 ezetimibe 10 mg tablet 10 mg PO DAILY@1200 RF: 0 duloxetine 30 mg capsule,delayed release(DR/EC) 30 mg PO QAM RF: 0 Centrum Women 18-400 mg-mcg Tablet 1 tab PO QAM RF: 0 meclizine 25 mg tablet 25 mg PO TID PRN (Reason: dizziness) Qty: 21 RF: 0 polyethylene glycol 3350 17 gram Powder In Packet 17 g PO DAILY RF: 0 docusate sodium [Colace] 100 mg Capsule 100 mg PO BID RF: 0 albuterol sulfate [Ventolin HFA] 90 mcg/actuation Hfa Aerosol Inhaler 2 puff INHALATION Q4H PRN (Reason: Cough) RF: 0 calcium carbonate-vitamin D3 [Os-Parvez 500 + D3] 500 mg(1,250mg) -200 unit Tablet 1 tab PO DAILY RF: 0 umeclidinium-vilanterol 62.5-25 mcg/actuation Blister With Device 1 inh INHALATION DAILY RF: 0 Referrals Referrals: Jasson Denney MD [Primary Care Provider] - Discharge Problem: Chest pain Qualifiers: Chest pain type: unspecified Qualified Code(s): R07.9 - Chest pain, unspecified
[2020-11-09] MEDS ORDERED: MAGNESIUM HYDROXIDE SUSP 30 ML UDC PO PRN (18:19)
[2020-11-09] MEDS ORDERED: ALUMINUM/MAGNESIUM SUSP 30 ML UDC PO PRN (18:19)
[2020-11-09] MEDS ORDERED: NITROGLYCERIN SL 0.4 MG/TAB TAB SL PRN (18:19)
[2020-11-09] MEDS ORDERED: POLYETHYLENE (MIRALAX) 17 GM PACK PO PRN (18:19)
[2020-11-09] MEDS ORDERED: ONDANSETRON INJ 2 MG/ML 2 ML VIAL IV PRN (18:19)
[2020-11-09] MEDS ORDERED: ACETAMINOPHEN 325 MG TAB PO PRN (18:19)
[2020-11-09] MEDS ORDERED: ALBUTEROL HFA 8 GM INHALER INH PRN (18:19)
[2020-11-09] MEDS ORDERED: CYCLOBENZAPRINE HCL 10 MG TAB PO PRN (18:54)
[2020-11-09] MEDS ORDERED: MECLIZINE HCL 25 MG TAB PO PRN (18:55)
[2020-11-09] MEDS: DOCUSATE SODIUM 100 MG CAP PO SCH (20:19)
[2020-11-09] MEDS: FAMOTIDINE 10 MG TABLET PO SCH (20:19)
[2020-11-09] MEDS: HEPARIN SOD 5,000 UNIT/0.5 ML VIAL SQ SCH (20:22)
[2020-11-09] MEDS ORDERED: ATENOLOL 25 MG TABLET PO SCH (21:00)
[2020-11-09] MEDS ORDERED: PRAVASTATIN SOD 40 MG TAB PO SCH (21:00)
[2020-11-10] MEDS: HEPARIN SOD 5,000 UNIT/0.5 ML VIAL SQ SCH ×2 (05:52→13:51)
[2020-11-10 07:15] LABS: Hematocrit (blood only) 38.5 % (37-47); Hemoglobin 12.7 g/dL (12.0-16.0); Mean Corpuscular Volume 90.8 fL (80-100); Platelet Count 245 K/uL (130-400); RDW Coefficient of Variation 14.3 % (11.5-14.5); Red Blood Count 4.24 M/uL (4.2-5.4); White Blood Count 6.24 K/uL (4.8-10.8)
[2020-11-10 07:40] LABS: BUN Creatinine Ratio 16.7 (10-20); Calcium 9.3 mg/dl (8.5-10.1); Est GFR (Non-African American) 35.4 ml/min; Magnesium 2.3 mg/dl (1.8-2.4); Potassium 4.2 mmol/L (3.5-5.1)
[2020-11-10] MEDS: DOCUSATE SODIUM 100 MG CAP PO SCH (08:37)
[2020-11-10] MEDS: FAMOTIDINE 10 MG TABLET PO SCH (08:39)
[2020-11-10] MEDS ORDERED: ENALAPRIL MALEATE 10 MG TAB PO SCH (09:00)
[2020-11-10] MEDS ORDERED: CLOPIDOGREL BISULFATE 75 MG TAB PO SCH (09:00)
[2020-11-10] MEDS ORDERED: UMECLIDINIUM/VILANTEROL 62.5/25MCG 7 PUFFS/INHALER INH SCH (09:00)
[2020-11-10] MEDS ORDERED: PANTOprazole 40 MG TAB PO SCH (09:00)
[2020-11-10] MEDS ORDERED: DULoxetine HCL 30 MG CAP PO SCH (09:00)
[2020-11-10] MEDS ORDERED: CEROVITE ADV FORMULA TAB PO SCH (09:00)
[2020-11-10] MEDS ORDERED: POLYETHYLENE (MIRALAX) 17 GM PACK PO SCH (09:00)
[2020-11-10] MEDS ORDERED: CALCIUM 600MG + VIT D 400 IU TAB PO SCH (09:00)
[2020-11-10 09:05] LABS: Estimated Average Glucose 128 mg/dl; Hemoglobin A1C 6.1 % (4.5-5.6)
--- NOTE | 2020-11-10 09:15 | Hospitalist Progress Note ---
Date of Service November 10, 2020 Assessment & Plan (1) Chest pain: This is a 80-year-old female who has significant past medical history of CAD, HTN, HLD, COPD, CKD stage III baseline creatinine 1.5, depression, history of ruptured AAA status post endovascular repair who presents to ED secondary to chest pain x 3 days. She had chest pain for the past 2-3 days. Atypical Chest Pain in setting of risk factors of prior CAD with stenting, HTN, HLD, Pre DM CP currently absent, stated it improved with belching and tums/pepcid. She is already on pantoprazole. Chest pain is not reproducible. CTA negative for PE/pneumonia. trops negative echo cardiology DC later today if cards w/u negative Continue PPI - will start pepcid bid monitor BP had lipid panel/a1c done recently, as documented below (2) CAD (coronary artery disease): History of GA with stenting in 2001 in 2002 Follows with cardiology in [place] Dr. Lau on asa, statin, plavix, ramipril and atenolol plan as above (3) HTN (hypertension): Pt modestly hypertensive in ED on atenolol and ramipril as outpt monitor (4) HLD (hyperlipidemia): Continue statin and zetia Fasting lipid panel on 11/01/2020 total cholesterol 170, LDL 74, HDL 65, triglyceride 153 (5) COPD (chronic obstructive pulmonary disease): No acute exacerbation Continue Anoro (6) CKD (chronic kidney disease) stage 3, GFR 30-59 ml/min: Baseline creatinine 1.5 BUN/creatinine 23 and 1.29 today Monitor renal function avoid nephrotoxic agents (7) Prediabetes: A1c 6.1 on 11/01/2020 Diet controlled (8) DVT prophylaxis: SQ Heparin Dispo: Med tele PCP: Dr. Denney FULL CODE Labs checked ROS-No Headache, No Visual Changes, No Nausea, No Vomiting, No Fever, No Chills, No Neck Pain or Stiffness, No Chest Pain, No Palpitations, No SOB, No KRUGER, No Cough, No Sputum, No Wheezing, No Abdominal Pain, No Diarrhea, No Hematemesis, No Hemoptysis, No Unexpected Weight Loss, No Flank pain, No Melena, No Hematochezia, No Frequency, No Urgency, No Burning, No Hematuria, No Rashes, No Diaphoresis. Appetite is Normal Physical Exam Gen-AAO x 3, NAD, Afebrile Head-NCAT, EOMI, PERRLA, Anicteric Sclera, No Posterior Pharyngeal Erythema Neck-Supple, No JVD, No Thyromegaly, No Masses, No LAD, No Bruits Lungs-Clear to Auscultation Bilaterally, No Rales, No Rhonchi, No Wheezing, No Crepitus Chest-No S4, +S1, +S2, No S3, No Murmurs, No Rubs, No Gallops, No Ectopy Abdomen-Soft, Bowel Sounds Present, Non Tender, Non Distended, No Hepatomegaly, No Splenomegaly, No Palpable Masses, No Rebound, No Rigidity, No Guarding Musculoskeletal-Full Range of Motion Bilaterally, No CVAT Extremities-No Cyanosis, No Clubbing, No Edema Nuero-Cranial Nerves II-XII grossly intact, Motor WNL, DTRs WNL, Strength WNL, Non Focal Psych-Normal Mood Admission and Anticipated Discharge Date Admission Date: November 09, 2020 Results & Data Results & Data ([facility]) Vital Signs (Past 12 Hours) Vital Signs Temp Pulse Pulse Resp BP Pulse Ox 11/10/20 08:10 36.8 C 66 13 160/96 H 93 11/10/20 03:57 37.1 C 68 16 164/76 H 95 11/10/20 03:17 71 11/09/20 22:40 36.9 C 68 18 154/78 H 93
--- NOTE | 2020-11-10 09:18 | Cardiology Consultation ---
Date of Consultation November 10, 2020 Assessment & Plan (1) Chest pain: (2) CAD (coronary artery disease): (3) HTN (hypertension): (4) Abnormal EKG: Patient admitted after 2 episodes of chest pain earlier this week. She has history of CAD s/p remote stent to the LAD in 2001 and remote stent to RCA in 2002 per review of records. Initial EKG demonstrated possible ischemic changes to the inferior leads, resolved on repeat EKG. Her troponin has been negative x3. D.dimer was elevated, but negative work up for PE/DVT. Recommend proceeding with dobutamine stress echo to r/o inducible ischemia prior to discharge. Patient is agreeable. Due to orthopedic limitations, she will not be able to ambulate on a treadmill. Her BP has been elevated since admission, improving after AM meds. She reports elevated readings at home and at recent office visits. Pending stress test results, consider addition of amlodipine 2.5 mg on discharge. Case discussed with Dr. Arrington. Supervising Physician Co-Signing Physician Notes Patient seen and examined with Inge Garcia PA-C. Agree with findings and assessment as above. Patient without further discomfort overnight. Stress testing was equivocal with no inducible wall motion abnormalities on imaging but dynamic ST segment depressions and reproduction of chest discomfort at peak heart rate. Discussed cardiac catheterization versus medical management and shayne avendañomaura states that she would prefer to avoid catheterization at all cost right now. To that end, I will start her on Imdur 30 mg daily and amlodipine 2.5 mg daily. Would also consider changing beta-kristin to metoprolol in the near future. Patient will follow up with her primary property administrator next week. She is return to the emergency room with any recurrence of chest discomfort. She is in agreement with the above plan. History of Present Illness Reason for Consultation: Chest pain; History of CAD; Abnormal EKG Requesting Physician: Ms. Shanelle PA-C Attending Physician: Dr. Arrington History of Present Illness Patient is an 80-year-old female who follows with property administrator, Dr. Lau for history of coronary artery disease status post WI in 2001 with coronary intervention to the LAD at that time. She reports repeat catheterization in 2002 with additional stent to the RCA per review of outpatient records. She denies repeat cardiac catheterization since that time. She has undergone several outpatient stress test including a nuclear stress test in 2017 which was negative for inducible ischemia, per records. Patient believes she had a nuclear stress test last year which was also negative for inducible ischemia. Last echo on file in 2016 revealed normal LV systolic function with mild aortic sclerosis without stenosis, and MAC with mild MR. Other history includes hypertension, dyslipidemia, chronic kidney disease, COPD with prior tobacco abuse, and history of abdominal aortic aneurysm with rupture status post repair in June 2019. Patient reports an episode of chest pain on Friday of this week described as a substernal burning sensation. Symptoms occurred while watching TV. Symptoms lasted approximately 30 minutes. She did not try sublingual nitro. No radiation. No associated symptoms of shortness of breath, diaphoresis, nausea, palpitations. She had a recurrent episode on Friday, similar in nature. Symptoms were nonexertional. Patient admits to poor functional capacity due to orthopedic limitations. She saw her primary property administrator, Dr. Lau on and reported these 2 episodes of chest pain. she was referred to ER for evaluation. We do not have these outpatient records from her property administrator. Upon arrival to ER, she was chest pain free, EKG demonstrated T wave inversions in inferior leads, new compared to prior EKG several years ago. Troponin negative x3. chest xray was unremrakable. She was found to have an elevated D- dimer and underwent chest CT which was negative for acute PE, venous duplex was also negative. Her blood pressure has been elevated since admission. She reports elevated blood pressure readings at home as well. She reports compliance with all medications. Repeat EKG this morning demonstrated normal sinus rhythm with improved T wave inversions in the inferior leads. At time of consult, patient was resting comfortably in bed. She denies recurrent chest pain since admission. No unusual shortness of breath. She is anxious to go home. She admits to left lower extremity edema which is chronic. She has a left popliteal cyst. Blood pressure trending down this morning but remains borderline elevated. She denies headache or vision changes. No dizziness, lightheadedness, syncope or near syncope. No orthopnea, PND. No fever, cough, chills Allergies Allergy/AdvReac Type Severity Reaction Status Date / Time No Known Allergies Allergy Unknown ` Verified 11/09/20 14:17 Home Medications Medication Instructions Recorded Confirmed Type Centrum Women 1 tab PO QAM 07/07/19 11/09/20 History aspirin 81 mg PO Q2D 07/07/19 11/09/20 History atenolol 12.5 mg PO PM 07/07/19 11/09/20 History clopidogrel 75 mg PO QAM 07/07/19 11/09/20 History cyclobenzaprine 10 mg PO TID PRN 07/07/19 11/09/20 History duloxetine 30 mg PO QAM 07/07/19 11/09/20 History ezetimibe 10 mg PO DAILY@1200 07/07/19 11/09/20 History pantoprazole 20 mg PO QAM 07/07/19 11/09/20 History pravastatin 40 mg PO HS 07/07/19 11/09/20 History meclizine 25 mg PO TID PRN #21 tab 11/27/19 11/09/20 Rx ramipril 10 mg capsule 5 mg PO DAILY 02/22/20 11/09/20 History albuterol sulfate [Ventolin HFA] 2 puff INHALATION Q4H PRN 11/09/20 11/09/20 History calcium carbonate-vitamin D3 1 tab PO DAILY 11/09/20 11/09/20 History [Os-Parvez 500 + D3] docusate sodium [Colace] 100 mg PO BID 11/09/20 11/09/20 History polyethylene glycol 3350 17 g PO DAILY 11/09/20 11/09/20 History umeclidinium-vilanterol 1 inh INHALATION DAILY 11/09/20 11/09/20 History amlodipine [Norvasc] 2.5 mg PO QAM #30 tab 11/10/20 Rx enalapril maleate 20 mg PO DAILY #30 tab 11/10/20 Rx isosorbide mononitrate 30 mg PO QAM #30 tab 11/10/20 Rx nitroglycerin [Nitrostat] 0.4 mg SUBLINGUAL UD PRN #30 tab 11/10/20 Rx Patient History Medical History CAD (coronary artery disease) CKD (chronic kidney disease) stage 3, GFR 30-59 ml/min COPD (chronic obstructive pulmonary disease) Depression Heart attack HLD (hyperlipidemia) HTN (hypertension) Prediabetes Retroperitoneal bleed Tobacco abuse Surgical History H/O heart artery stent History of cataract removal with insertion of prosthetic lens History of hysterectomy 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 stent graft Family History Mother CHF (congestive heart failure) Father Emphysema of lung Sister Brain tumor Social History Smoking Status: Former smoker Tobacco Type: Cigarettes Smoking End Date: 07/07/2019; Second Hand Exposure: No; Do You Dip or Chew Tobacco: No; Tobacco Cessation Education Requested by Patient: No Hx Alcohol Use: Yes Alcohol type: wine Hx Substance Use: No Preferred Language: [place]ankan Communication Ability: Effective Plant Anatomy Teacher Required: No Beliefs That Will Affect Care: None marital status: / Current Living Situation: Alone current occupational status: retired Other Information That Helps Us Care for You: No Feels Safe at Home: Yes Safety Concerns: Feels Safe At This Time Assistive Devices: Denture - Upper, Denture - Lower, Glasses and Walker Review of Systems Review of Systems: All systems reviewed & are unremarkable except as noted in HPI & below Physical Exam Constitutional: WD/WN, vitals as above well developed and well nourished; no acute distress Eyes: PERRL, conjunctivae normal, anicteric sclerae ENMT: external ear and nose normal, oropharynx normal Neck: trachea midline, no thyromegaly normal visual inspection Respiratory: normal respiratory effort, lungs clear to auscultation Cardiovascular: Rate/Rhythm: regular rate and regular rhythm Heart Sounds: normal S1 and normal S2; no murmur Vessels: no JVD Extremities: + edema (1+ left lower extremity edema) Gastrointestinal (Abdomen): normal bowel sounds, soft, nontender, no hepatosplenomegaly Musculoskeletal: no cyanosis or clubbing, extremities motor strength 5/5 Neurologic: PERRL, EOMI, accommodation nl, no face palsy, no dysarthria Psychiatric: A+Ox3, euthymic affect Results & Data ([facility]) Vital Signs (Past 12 Hours) Vital Signs Temp Pulse Pulse Resp BP Pulse Ox 11/10/20 08:10 36.8 C 66 13 160/96 H 93 11/10/20 03:57 37.1 C 68 16 164/76 H 95 11/10/20 03:17 71 11/09/20 22:40 36.9 C 68 18 154/78 H 93 Laboratory Results 11/10/20 11/10/20 11/10/20 Range/Units 06:40 06:40 06:40 WBC 6.24 (4.8-10.8) K/uL RBC 4.24 (4.2-5.4) M/uL Hgb 12.7 (12.0-16.0) g/dL POC Hgb (12.0-16.0) g/dl Hct 38.5 (37-47) % POC Hct (37-47) % MCV 90.8 (80-100) fL MCH 30.0 (25-34) pg MCHC 33.0 (32-36) g/dL RDW Std Deviation 48.0 H (36.4-46.3) fL RDW Coeff of Adalid 14.3 (11.5-14.5) % Plt Count 245 (130-400) K/uL MPV 10.0 (7.4-10.4) fL Immature Gran % (Auto) % Neut % (Auto) % Lymph % (Auto) % Vilas % (Auto) % Eos % (Auto) % Baso % (Auto) % Neut # (Auto) (1.4-6.5) K/uL Lymph # (Auto) (1.2-3.4) K/uL Vilas # (Auto) (0.11-0.59) K/uL Eos # (Auto) (0-0.5) K/uL Baso # (Auto) (0-0.2) K/uL Immature Gran # (Auto) (0.00-0.02) K/uL PT (9.0-12.0) Seconds INR (0.9-1.1) APTT (21.0-31.0) Seconds PTT Ratio D-Dimer (0-500) ug/L FEU POC Sodium (135-144) mmol/L Sodium 141 (136-145) mmol/L POC Potassium (3.3-5.0) mmol/L Potassium 4.2 (3.5-5.1) mmol/L POC Chloride (101-112) mmol/L Chloride 111 H (98-107) mmol/L Carbon Dioxide 28 (21-32) mmol/L POC Total CO2 (24-31) mmol/L Anion Gap 2.0 L (3-11) POC Anion Gap (16-25) mmol/L POC BUN (7-18) mg/dl BUN 23 H (7-18) mg/dl Creatinine 1.40 H (0.6-1.2) mg/dl POC Creatinine (0.6-1.3) mg/dl Est Cr Clr Drug Dosing 35.0 ml/min Est GFR ( Amer) 41.0 ml/min Est GFR (Non-Af Amer) 35.4 ml/min BUN/Creatinine Ratio 16.7 (10-20) Glucose 99 (70-99) mg/dl POC Glucose (other) (70-99) mg/dl Estimat Average Glucose 128 mg/dl Hemoglobin A1c 6.1 H (4.5-5.6) % Calcium 9.3 (8.5-10.1) mg/dl POC Ioniz Calcium Jett (1.12-1.32) mmol/l Magnesium 2.3 (1.8-2.4) mg/dl Total Bilirubin (0.2-1) mg/dl AST (15-37) U/L ALT (12-78) U/L Alkaline Phosphatase (45-117) U/L Troponin I (0-0.045) ng/ml Total Protein (6.4-8.2) gm/dl Albumin (3.4-5.0) gm/dl Globulin (2.5-4.0) gm/dl Albumin/Globulin Ratio (0.9-2) Lipase (73-393) U/L COVID-19 Eval Order SARS-CoV-2 (PCR) (Negative) 11/10/20 11/09/20 11/09/20 Range/Units 00:28 19:03 14:48 WBC (4.8-10.8) K/uL RBC (4.2-5.4) M/uL Hgb (12.0-16.0) g/dL POC Hgb (12.0-16.0) g/dl Hct (37-47) % POC Hct (37-47) % MCV (80-100) fL MCH (25-34) pg MCHC (32-36) g/dL RDW Std Deviation (36.4-46.3) fL RDW Coeff of Adalid (11.5-14.5) % Plt Count (130-400) K/uL MPV (7.4-10.4) fL Immature Gran % (Auto) % Neut % (Auto) % Lymph % (Auto) % Vilas % (Auto) % Eos % (Auto) % Baso % (Auto) % Neut # (Auto) (1.4-6.5) K/uL Lymph # (Auto) (1.2-3.4) K/uL Vilas # (Auto) (0.11-0.59) K/uL Eos # (Auto) (0-0.5) K/uL Baso # (Auto) (0-0.2) K/uL Immature Gran # (Auto) (0.00-0.02) K/uL PT (9.0-12.0) Seconds INR (0.9-1.1) APTT (21.0-31.0) Seconds PTT Ratio D-Dimer (0-500) ug/L FEU POC Sodium (135-144) mmol/L Sodium (136-145) mmol/L POC Potassium (3.3-5.0) mmol/L Potassium (3.5-5.1) mmol/L POC Chloride (101-112) mmol/L Chloride (98-107) mmol/L Carbon Dioxide (21-32) mmol/L POC Total CO2 (24-31) mmol/L Anion Gap (3-11) POC Anion Gap (16-25) mmol/L POC BUN (7-18) mg/dl BUN (7-18) mg/dl Creatinine (0.6-1.2) mg/dl POC Creatinine (0.6-1.3) mg/dl Est Cr Clr Drug Dosing ml/min Est GFR ( Amer) ml/min Est GFR (Non-Af Amer) ml/min BUN/Creatinine Ratio (10-20) Glucose (70-99) mg/dl POC Glucose (other) (70-99) mg/dl Estimat Average Glucose mg/dl Hemoglobin A1c (4.5-5.6) % Calcium (8.5-10.1) mg/dl POC Ioniz Calcium Jett (1.12-1.32) mmol/l Magnesium (1.8-2.4) mg/dl Total Bilirubin (0.2-1) mg/dl AST (15-37) U/L ALT (12-78) U/L Alkaline Phosphatase (45-117) U/L Troponin I < 0.015 < 0.015 (0-0.045) ng/ml Total Protein (6.4-8.2) gm/dl Albumin (3.4-5.0) gm/dl Globulin (2.5-4.0) gm/dl Albumin/Globulin Ratio (0.9-2) Lipase (73-393) U/L COVID-19 Eval Order SARS-CoV-2 (PCR) NEGATIVE (Negative) 11/09/20 11/09/20 11/09/20 Range/Units 14:48 12:22 12:10 WBC (4.8-10.8) K/uL RBC (4.2-5.4) M/uL Hgb (12.0-16.0) g/dL POC Hgb 11.9 L (12.0-16.0) g/dl Hct (37-47) % POC Hct 35 L (37-47) % MCV (80-100) fL MCH (25-34) pg MCHC (32-36) g/dL RDW Std Deviation (36.4-46.3) fL RDW Coeff of Adalid (11.5-14.5) % Plt Count (130-400) K/uL MPV (7.4-10.4) fL Immature Gran % (Auto) % Neut % (Auto) % Lymph % (Auto) % Vilas % (Auto) % Eos % (Auto) % Baso % (Auto) % Neut # (Auto) (1.4-6.5) K/uL Lymph # (Auto) (1.2-3.4) K/uL Vilas # (Auto) (0.11-0.59) K/uL Eos # (Auto) (0-0.5) K/uL Baso # (Auto) (0-0.2) K/uL Immature Gran # (Auto) (0.00-0.02) K/uL PT (9.0-12.0) Seconds INR (0.9-1.1) APTT (21.0-31.0) Seconds PTT Ratio D-Dimer 2570 H* (0-500) ug/L FEU POC Sodium 141 (135-144) mmol/L Sodium (136-145) mmol/L POC Potassium 4.1 (3.3-5.0) mmol/L Potassium (3.5-5.1) mmol/L POC Chloride 105 (101-112) mmol/L Chloride (98-107) mmol/L Carbon Dioxide (21-32) mmol/L POC Total CO2 27 (24-31) mmol/L Anion Gap (3-11) POC Anion Gap 13.0 L (16-25) mmol/L POC BUN 23 H (7-18) mg/dl BUN (7-18) mg/dl Creatinine (0.6-1.2) mg/dl POC Creatinine 1.4 H (0.6-1.3) mg/dl Est Cr Clr Drug Dosing ml/min Est GFR ( Amer) ml/min Est GFR (Non-Af Amer) ml/min BUN/Creatinine Ratio (10-20) Glucose (70-99) mg/dl POC Glucose (other) 106 H (70-99) mg/dl Estimat Average Glucose mg/dl Hemoglobin A1c (4.5-5.6) % Calcium (8.5-10.1) mg/dl POC Ioniz Calcium Jett 1.35 H (1.12-1.32) mmol/l Magnesium (1.8-2.4) mg/dl Total Bilirubin (0.2-1) mg/dl AST (15-37) U/L ALT (12-78) U/L Alkaline Phosphatase (45-117) U/L Troponin I (0-0.045) ng/ml Total Protein (6.4-8.2) gm/dl Albumin (3.4-5.0) gm/dl Globulin (2.5-4.0) gm/dl Albumin/Globulin Ratio (0.9-2) Lipase (73-393) U/L COVID-19 Eval Order Covid19 at [facility] SARS-CoV-2 (PCR) (Negative) 11/09/20 11/09/20 11/09/20 Range/Units 12:10 12:10 12:10 WBC 6.55 (4.8-10.8) K/uL RBC 4.07 L (4.2-5.4) M/uL Hgb 12.2 (12.0-16.0) g/dL POC Hgb (12.0-16.0) g/dl Hct 36.3 L (37-47) % POC Hct (37-47) % MCV 89.2 (80-100) fL MCH 30.0 (25-34) pg MCHC 33.6 (32-36) g/dL RDW Std Deviation 46.5 H (36.4-46.3) fL RDW Coeff of Adalid 14.2 (11.5-14.5) % Plt Count 201 (130-400) K/uL MPV 9.6 (7.4-10.4) fL Immature Gran % (Auto) 0.2 % Neut % (Auto) 71.4 % Lymph % (Auto) 14.4 % Vilas % (Auto) 10.5 % Eos % (Auto) 3.2 % Baso % (Auto) 0.3 % Neut # (Auto) 4.68 (1.4-6.5) K/uL Lymph # (Auto) 0.94 L (1.2-3.4) K/uL Vilas # (Auto) 0.69 H (0.11-0.59) K/uL Eos # (Auto) 0.21 (0-0.5) K/uL Baso # (Auto) 0.02 (0-0.2) K/uL Immature Gran # (Auto) 0.01 (0.00-0.02) K/uL PT 10.1 (9.0-12.0) Seconds INR 1.0 (0.9-1.1) APTT 25.8 (21.0-31.0) Seconds PTT Ratio 1.0 D-Dimer (0-500) ug/L FEU POC Sodium (135-144) mmol/L Sodium 139 (136-145) mmol/L POC Potassium (3.3-5.0) mmol/L Potassium 4.0 (3.5-5.1) mmol/L POC Chloride (101-112) mmol/L Chloride 109 H (98-107) mmol/L Carbon Dioxide 26 (21-32) mmol/L POC Total CO2 (24-31) mmol/L Anion Gap 4.0 (3-11) POC Anion Gap (16-25) mmol/L POC BUN (7-18) mg/dl BUN 23 H (7-18) mg/dl Creatinine 1.29 H (0.6-1.2) mg/dl POC Creatinine (0.6-1.3) mg/dl Est Cr Clr Drug Dosing 38.0 ml/min Est GFR ( Amer) 45.3 ml/min Est GFR (Non-Af Amer) 39.1 ml/min BUN/Creatinine Ratio 18.0 (10-20) Glucose 107 H (70-99) mg/dl POC Glucose (other) (70-99) mg/dl Estimat Average Glucose mg/dl Hemoglobin A1c (4.5-5.6) % Calcium 9.8 (8.5-10.1) mg/dl POC Ioniz Calcium Jett (1.12-1.32) mmol/l Magnesium (1.8-2.4) mg/dl Total Bilirubin 0.4 (0.2-1) mg/dl AST 11 L (15-37) U/L ALT 16 (12-78) U/L Alkaline Phosphatase 78 (45-117) U/L Troponin I < 0.015 (0-0.045) ng/ml Total Protein 7.5 (6.4-8.2) gm/dl Albumin 3.6 (3.4-5.0) gm/dl Globulin 3.9 (2.5-4.0) gm/dl Albumin/Globulin Ratio 0.9 (0.9-2) Lipase 163 (73-393) U/L COVID-19 Eval Order SARS-CoV-2 (PCR) (Negative) Diagnostic Findings Repeat EKG this morning, 11/10 reviewed: Normal sinus rhythm Inferior T wave inversions have improved from prior EKG EKG on 11/[address] & T wave abnormality, consider inferior ischemia Inverted T waves have replaced nonspecific T wave abnormality in Inferior leads engine monitor reviewed - NSR, no arrhythmias Chest CTA on admission, report reviewed: IMPRESSION: 1. No evidence of acute pulmonary embolism 2. No evidence of acute parenchymal consolidation 3. Mild emphysema 4. Dependent atelectasis 5. Persistent hiatal hernia Venous duplex report reviewed on admission: IMPRESSION: No DVT within the left lower extremity. Complex left popliteal Chest xray on admission: IMPRESSION: 1. No acute process within the chest. 2. Stable mild cardiomegaly. 3. Emphysema. 4. Moderate hiatus hernia. (1) Chest pain Chest pain type: unspecified Qualified Code(s): R07.9 - Chest pain, unspecified
[2020-11-10] MEDS ORDERED: EZETIMIBE 10 MG TABLET PO SCH (12:00)
[2020-11-10] MEDS ORDERED: DOBUTamine HCL 12.5 MG/ML 20 ML VIAL IV ONE (12:20)
[2020-11-10] MEDS ORDERED: METOPROLOL TARTRATE 1 MG/ML VIAL IV ONE (12:20)
[2020-11-10] MEDS ORDERED: ATROPINE SULFATE 0.1 MG/ML 10ML SYR IV ONE (12:20)
[2020-11-10] MEDS ORDERED: ISOSORBIDE MONO EXTENDED REL 30 MG TABCR PO SCH (15:15)
[2020-11-10] MEDS ORDERED: ISOSORBIDE MONO EXTENDED REL 30 MG TABCR PO ONE (15:15)
[2020-11-10] MEDS ORDERED: amLODIPine BESYLATE 5 MG TAB PO ONE (15:15)
--- NOTE | 2020-11-10 15:30 | Discharge Summary ---
Date of Service November 10, 2020 Admission HPI Per Admitting Provider This is a 80-year-old female who has significant past medical history of CAD, HTN, HLD, COPD, CKD stage III baseline creatinine 1.5, depression, history of ruptured AAA status post endovascular repair who presents to ED secondary to chest pain x 3 days. She had chest pain for the past 2-3 days. She was seen in clinic today by quality systems specialist who recommended she come to ED for evaluation. Her quality systems specialist is Dr. Lau. She has hx of VA in past requiring 2 stents. She has been compliant with her meds. She also c/o L calf pain. Her chest pain is substernal and radiates to back. Pain is rated as a 7/10. She denies radiation to neck and arm. She has never had similar chest pain before. Pain is described as, "ache." She tried pepcid AC and tums. She had belching which eased the pain and pain finally went away. She feels burping for 10 minutes helped. She does take a PPI daily. She is unsure if any food triggered her yesterday as only thing she ate was a bowl or cereal. Pain started yesterday at lunch time and she was watching tv. It lasted approx 30 min and left. She also had this pain a few days ago. Pain is off and on. She does have chronic SOB from COPD but her baseline. She denies any associated nausea or diaphoresis with sx. She denies f/c/s, dizziness, lightheaded, fall, palpitations, n/v/d, abdominal pain, change in bowel or urinary habits. Admission Exam Per Admitting Provider Constitutional: WD/WN, F, vitals as above, NAD, sitting up in bed, pleasant, conversing easily Head: Normocephalic, Atraumatic Eyes: PERRL, conjunctivae normal, anicteric sclerae ENMT: external ear and nose normal, oropharynx normal Neck: trachea midline, no thyromegaly normal visual inspection Respiratory: normal respiratory effort, lungs clear to auscultation, no wheeze, rales, rhonchi. Normal insp/exp effort, no accessory muscle use Cardiovascular: RRR, no murmur, LLE Edema, L popliteal cyst noted, no erythema, negative homans Vessels: no JVD or carotid bruit Chest: normal inspection of chest Abdomen: normal bowel sounds, soft, nontender, no hepatosplenomegaly Musculoskeletal: no cyanosis or clubbing, extremities motor strength 5/5 Skin: no rashes, warm and dry normal turgor Neurologic: PERRL, EOMI, accommodation nl, no face palsy, no dysarthria CN's II-XI intact bilaterally and moves all extremities Psychiatric: A+Ox3, euthymic affect : deferred Principal Diagnosis (1) Chest pain: (2) CAD (coronary artery disease): (3) HTN (hypertension): (4) HLD (hyperlipidemia): (5) COPD (chronic obstructive pulmonary disease): (6) CKD (chronic kidney disease) stage 3, GFR 30-59 ml/min: (7) Prediabetes: Discharge Exam ROS-No Headache, No Visual Changes, No Nausea, No Vomiting, No Fever, No Chills, No Neck Pain or Stiffness, No Chest Pain, No Palpitations, No SOB, No KRUGER, No Cough, No Sputum, No Wheezing, No Abdominal Pain, No Diarrhea, No Hematemesis, No Hemoptysis, No Unexpected Weight Loss, No Flank pain, No Melena, No Hematochezia, No Frequency, No Urgency, No Burning, No Hematuria, No Rashes, No Diaphoresis. Appetite is Normal Physical Exam Gen-AAO x 3, NAD, Afebrile Head-NCAT, EOMI, PERRLA, Anicteric Sclera, No Posterior Pharyngeal Erythema Neck-Supple, No JVD, No Thyromegaly, No Masses, No LAD, No Bruits Lungs-Clear to Auscultation Bilaterally, No Rales, No Rhonchi, No Wheezing, No Crepitus Chest-No S4, +S1, +S2, No S3, No Murmurs, No Rubs, No Gallops, No Ectopy Abdomen-Soft, Bowel Sounds Present, Non Tender, Non Distended, No Hepatomegaly, No Splenomegaly, No Palpable Masses, No Rebound, No Rigidity, No Guarding Musculoskeletal-Full Range of Motion Bilaterally, No CVAT Extremities-No Cyanosis, No Clubbing, No Edema Nuero-Cranial Nerves II-XII grossly intact, Motor WNL, DTRs WNL, Strength WNL, Non Focal Psych-Normal Mood Discharge Data Allergies Allergy/AdvReac Type Severity Reaction Status Date / Time No Known Allergies Allergy Unknown ` Verified 11/09/20 14:17 Consultations 11/09/20 14:44 ED Decision to Admit Stat 11/09/20 14:51 Consult Cardiology Routine Ordered Studies 11/09/20 12:26 US venous doppler LE LT Stat 11/09/20 13:35 CT angio chest PE protocol Stat Sress test equivocal-elects for medical management Hospital Course (1) Chest pain: This is a 80-year-old female who has significant past medical history of CAD, HTN, HLD, COPD, CKD stage III baseline creatinine 1.5, depression, history of ruptured AAA status post endovascular repair who presents to ED secondary to chest pain x 3 days. She had chest pain for the past 2-3 days. Atypical Chest Pain in setting of risk factors of prior CAD with stenting, HTN, HLD, Pre DM CP currently absent, stated it improved with belching and tums/pepcid. She is already on pantoprazole. Chest pain is not reproducible. CTA negative for PE/pneumonia. trops negative Stress test equivocal cardiology DC today Imdur and Norvasc monitor BP (2) CAD (coronary artery disease): History of VA with stenting in 2001 in 2002 Follows with cardiology in [place] Dr. Lau on asa, statin, plavix, ramipril and atenolol plan as above (3) HTN (hypertension): Pt modestly hypertensive in ED on atenolol and ramipril as outpt monitor (4) HLD (hyperlipidemia): Continue statin and zetia Fasting lipid panel on 11/01/2020 total cholesterol 170, LDL 74, HDL 65, triglyceride 153 (5) COPD (chronic obstructive pulmonary disease): No acute exacerbation Continue Anoro (6) CKD (chronic kidney disease) stage 3, GFR 30-59 ml/min: Baseline creatinine 1.5 BUN/creatinine 23 and 1.29 today Monitor renal function avoid nephrotoxic agents (7) Prediabetes: A1c 6.1 on 11/01/2020 Diet controlled (8) DVT prophylaxis: SQ Heparin Dispo: DC home PCP: Dr. Denney FULL CODE Labs checked Total Time Total Time Spent Total Time Spent (In Minutes): 45 mins Total Time Includes: Examination of the Patient, Discharge Planning, Medication Reconciliation and Communication With Other Providers Discharge Plan Discharge Items Patient Disposition: Home - Self-Care Reason For Visit: CHEST PAIN Discharge Diagnosis: (1) Chest pain: (2) CAD (coronary artery disease): (3) HTN (hypertension): (4) HLD (hyperlipidemia): (5) COPD (chronic obstructive pulmonary disease): (6) CKD (chronic kidney disease) stage 3, GFR 30-59 ml/min: (7) Prediabetes: Condition on Discharge: Good Activity: Resume your previous activity Lifting: Gradually increase as tolerated Bathing: No limitations Sexual Activity: When tolerated Exercise/Sports: Gradually increase as tolerated Driving/Machine Use: No limitations Weightbearing: Full weightbearing Non-emergency contact: Primary Care Provider Call non-emergency contact if: you have any medication questions Follow-up/Referrals: Jasson Denney MD [Primary Care Provider] - (Date & Time 11/15/2020 10:00 AM Provider Kerry Lam MD Department Family Medicine [facility] ) Diet: Carb Consistent or DM2 and Heart Healthy Addtl Attending Provider Instructions: none Pending Studies at Discharge: No Stand-Alone Forms: [employer], Smoking Cessation Medications and DC Order Prescriptions: New enalapril maleate 10 mg Tablet 20 mg PO DAILY Qty: 30 RF: 0 amlodipine [Norvasc] 5 mg Tablet 2.5 mg PO QAM Qty: 30 RF: 0 isosorbide mononitrate 30 mg Tablet Extended Release 24 Hr 30 mg PO QAM Qty: 30 RF: 0 nitroglycerin [Nitrostat] 0.4 mg Tablet, Sublingual 0.4 mg sublingual UD PRN (Reason: chest pain) Qty: 30 RF: 0 Continued ramipril 10 mg capsule 5 mg PO DAILY RF: 0 cyclobenzaprine 10 mg Tablet 10 mg PO TID PRN (Reason: Muscle Spasm) RF: 0 pravastatin 40 mg tablet 40 mg PO HS RF: 0 atenolol 25 mg tablet 12.5 mg PO PM RF: 0 clopidogrel 75 mg tablet 75 mg PO QAM RF: 0 aspirin 81 mg Tablet,Delayed Release (Dr/Ec) 81 mg PO Q2D RF: 0 pantoprazole 20 mg tablet,delayed release (DR/EC) 20 mg PO QAM RF: 0 ezetimibe 10 mg tablet 10 mg PO DAILY@1200 RF: 0 duloxetine 30 mg capsule,delayed release(DR/EC) 30 mg PO QAM RF: 0 Centrum Women 18-400 mg-mcg Tablet 1 tab PO QAM RF: 0 meclizine 25 mg tablet 25 mg PO TID PRN (Reason: dizziness) Qty: 21 RF: 0 polyethylene glycol 3350 17 gram Powder In Packet 17 g PO DAILY RF: 0 docusate sodium [Colace] 100 mg Capsule 100 mg PO BID RF: 0 albuterol sulfate [Ventolin HFA] 90 mcg/actuation Hfa Aerosol Inhaler 2 puff INHALATION Q4H PRN (Reason: Cough) RF: 0 calcium carbonate-vitamin D3 [Os-Parvez 500 + D3] 500 mg(1,250mg) -200 unit Tablet 1 tab PO DAILY RF: 0 umeclidinium-vilanterol 62.5-25 mcg/actuation Blister With Device 1 inh INHALATION DAILY RF: 0 Discharge Orders: Discharge Order (Routine); Ordered 11/10/20 Ordered By: Balta Mckinnon/Other Patient Handouts: A1C Admission Data Admit Date/Time: 11/09/20 14:51 Attending Provider: Balta Hough Admit Provider: Abraham Mclain Primary Care Provider: Jasson Denney Other Providers: Abraham Mclain ; Dilan Arrington
--- NOTE | 2020-11-10 15:41 | Electrocardiogram Report ---
Test Reason : Blood Pressure : / mmHG Vent. Rate : 062 BPM Atrial Rate : 062 BPM P-R Int : 176 ms QRS Dur : 080 ms QT Int : 438 ms P-R-T Axes : 064 033 025 degrees QTc Int : 444 ms Normal sinus rhythm Normal ECG When compared with ECG of 09-NOV-2020 12:01, No significant change was found Confirmed by Connor Solaers ([id number]) on 11/10/2020 3:40:52 PM Referred By: REFERRED SELF Confirmed By:Connor Solares
[2020-11-11] MEDS ORDERED: ASPIRIN 81 MG ECTAB PO SCH (09:00)
[2020-11-11] MEDS ORDERED: amLODIPine BESYLATE 5 MG TAB PO SCH (09:00)
== END 2020-11-10 17:49 | disposition home or self-care (01) ==
LOC: 2W 11:49 → ED 11:49 → SUATTDRO 14:51 → 2W 18:01

== ENCOUNTER 2022-06-06 15:37 | Inpatient (IN) ==
--- NOTE | 2022-06-06 15:53 | Emergency Department Note ---
History of Present Illness General Chief complaint: Fall Stated complaint: FALLS, DIZZINESS Time Seen by Provider: 06/06/22 15:40 History of Present Illness 82-year-old female presents via EMS reportedly had fallen multiple times today. Patient was complaining of dizziness. Patient was seen recently and was di agnosed with herpes zoster on her abdomen. She did fall last evening striking her head. She is currently on aspirin and Plavix. Patient denies headache slurred speech blurred vision denies nausea vomiting denies specific abdominal pain currently does state a skin rash in the abdomen. Patient denies chest pain or shortness of breath. Reportedly the patient's blood pressure per EMS was 90 and they gave 750 mL of saline prior to hospital arrival. Patient has no other complaints. No rectal bleeding. No vomiting no blood no decreased p.o. intake. Home Medications Medication Instructions Recorded Confirmed Type Oscal 500/200 D3 1 tab PO DAILY 06/06/22 06/06/22 History acetaminophen 325 mg tablet 650 mg PO Q6 PRN Pain 06/06/22 06/06/22 History (Tylenol) albuterol sulfate 90 mcg/actuation 2 puff inhalation Q4 PRN Shortness 06/06/22 06/06/22 History aerosol inhaler (Ventolin HFA) Of Breath Or Wheezing amlodipine 2.5 mg tablet 2.5 mg PO QAM 06/06/22 06/06/22 History aspirin 81 mg tablet,delayed 81 mg PO Q OTHER DAY 06/06/22 06/06/22 History release atenolol 25 mg tablet 25 mg PO DAILY 06/06/22 06/06/22 History clopidogrel 75 mg tablet 75 mg PO DAILY 06/06/22 06/06/22 History cocoa butter-shark liver oil 1 supp MI DIRECTED PRN 06/06/22 06/06/22 History rectal suppository Hemorrhoids cyclobenzaprine 10 mg tablet 10 mg PO TID PRN Muscle Pain 06/06/22 06/06/22 History docusate sodium 100 mg capsule 100 mg PO HS 06/06/22 06/06/22 History duloxetine 30 mg capsule,delayed 30 mg PO DAILY 06/06/22 06/06/22 History release enalapril maleate 10 mg tablet 20 mg PO DAILY 06/06/22 06/06/22 History ezetimibe 10 mg tablet 10 mg PO DAILY 06/06/22 06/06/22 History isosorbide mononitrate 30 mg 30 mg PO DAILY 06/06/22 06/06/22 History tablet,extended release 24 hr hxkmepqhsaxo-owisqbju-grccjt tablet 1 tab PO DAILY 06/06/22 06/06/22 History nitroglycerin 0.4 mg sublingual 0.4 mg sublingual DIRECTED PRN 06/06/22 06/06/22 History tablet (Nitrostat) Chest Pain pantoprazole 20 mg tablet,delayed 20 mg PO DAILY 06/06/22 06/06/22 History release polyethylene glycol 3350 17 gram 17 g PO DAILY 06/06/22 06/06/22 History oral powder packet (Miralax) rosuvastatin 20 mg tablet 20 mg PO QPM 06/06/22 06/06/22 History Allergies Allergy/AdvReac Type Severity Reaction Status Date / Time adhesive tape Allergy rash/itchy Verified 06/06/22 16:52 latex Allergy rash/itchy Verified 06/06/22 16:52 Past Med/Surg History Medical History CAD (coronary artery disease) CKD (chronic kidney disease) stage 3, GFR 30-59 ml/min COPD (chronic obstructive pulmonary disease) Depression Heart attack HLD (hyperlipidemia) HTN (hypertension) Prediabetes Retroperitoneal bleed Tobacco abuse Surgical History H/O heart artery stent History of cataract removal with insertion of prosthetic lens History of hysterectomy 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 stent graft Family History Mother CHF (congestive heart failure) Father Emphysema of lung Sister Brain tumor Social History Smoking Status: Never smoker Tobacco Type: Cigarettes Second Hand Exposure: No; Hx Alcohol Use: Yes Alcohol type: wine Hx Substance Use: No Preferred Language: [place]an Communication Ability: Effective Dough Mixer Required: No Beliefs That Will Affect Care: None marital status: / Current Living Situation: Alone current occupational status: retired Feels Safe at Home: Yes Assistive Devices: Denture - Upper, Denture - Lower, Glasses and Walker Review of Systems A total of 10 systems reviewed and were otherwise negative Constitutional: no fever Ear, Nose, Mouth, Throat: no ear pain Respiratory: no cough Cardiovascular: no chest pain Gastrointestinal: no abdominal pain Neurologic: + dizziness Physical Exam Vital Signs Vital Signs - 24 hr 06/06/22 15:15 06/06/22 15:45 Temperature 36.8 C Temperature Source Oral Pulse Rate 86 Respiratory Rate 15 Respiratory Effort / Characteristics Non-Labored Respiratory Depth Normal Respiratory Pattern Regular Blood Pressure 146/85 H Blood Pressure Mean 105 Blood Pressure Position Lying Pulse Oximetry 98 Oxygen Delivery Method Room Air Room Air Sepsis Recent Fever Within 48 Hours No Sepsis New/Unexplained Change in Mental Status No Sepsis Action Taken by Nursing No Action Required GENERAL: Patient is awake alert in no acute distress patient is resting comfortably and showing no signs of anxiety EYES: The conjunctivae are clear. The pupils are round and reactive. Patient has periorbital ecchymosis present of the right orbit there is no obvious proptosis there is no subconjunctival hemorrhage EARS, NOSE, MOUTH AND THROAT: The nose is without any evidence of any deformity. Mucous membranes are moist. Tongue is midline. Head exam reveals no obvious contusions or hematomas NECK: The neck is nontender and supple. RESPIRATORY: Normal respiratory effort is noted there is no evidence of wheezing rhonchi or rales CARDIOVASCULAR: Regular rate and rhythm noted there no murmurs rubs or gallops normal S1 normal S2. GASTROINTESTINAL: The abdomen is soft. Abdomen is nontender. There is a zoster rash present along a dermatome in the left abdomen PELVIS: The Pelvis is stable. No tenderness to palpation is noted. BACK: No midline tenderness or or step-off noted range of motion in flexion extension as well as rotation no signs of muscle spasm noted MUSCULOSKELETAL/EXTREMITIES: There is no evidence of gross deformity full range of motion is noted in the hips and shoulders. Patient does have mild tenderness with no obvious ecchymosis or deformity to the left shoulder. Patient is neurovascularly intact distally. SKIN: There is no obvious evidence of any rash. There are no petechiae, pallor or cyanosis noted. NEUROLOGIC: Patient is awake alert and oriented x3 strength is symmetric; GCS of 15, NIH is 0 Medical Decision Making Medical Records Attestation: I reviewed the patient's medical records. Home Medications Current Medication List: was personally reviewed by me Laboratory Data Attestation: I reviewed the patient's lab results. Result diagrams: 06/06/22 Unknown 06/06/22 Unknown Lab Results 06/06/22 06/06/22 06/06/22 Range/Units Unknown Unknown Unknown WBC 11.76 H (4.8-10.8) K/ul RBC 3.77 L (3.93-5.22) M/uL Hgb 10.3 L (12.0-16.0) g/dl Hct 31.7 L (34.1-44.9) % MCV 84.1 (80.0-100.0) fL MCH 27.3 (25.0-34.0) pg MCHC 32.5 (32.0-36.0) g/dL RDW Std Deviation 49.9 H (36.4-46.3) fL RDW Coeff of Adalid 16.2 H (11.5-14.5) % Plt Count 247 (130-400) K/uL MPV 9.8 (9.4-12.3) fL Immature Gran % (Auto) 0.4 % Neut % (Auto) 78.2 % Lymph % (Auto) 10.2 % [place] % (Auto) 10.3 % Eos % (Auto) 0.5 % Baso % (Auto) 0.4 % Neut # (Auto) 9.19 H (1.4-6.5) K/uL Lymph # (Auto) 1.20 (1.2-3.4) K/uL [place] # (Auto) 1.21 H (0.24-0.82) K/uL Eos # (Auto) 0.06 (0-0.50) K/uL Baso # (Auto) 0.05 (0-0.2) K/uL Immature Gran # (Auto) 0.05 H (0.00-0.02) K/uL PT 11.1 (9.0-12.0) Seconds INR 1.0 (0.9-1.1) APTT 25.1 (21.0-31.0) Seconds PTT Ratio 0.9 Sodium 139 (136-145) mmol/L Potassium 4.5 (3.5-5.1) mmol/L Chloride 108 H (98-107) mmol/L Carbon Dioxide 25 (21-32) mmol/L Anion Gap 6 (3-11) BUN 34 H (6-23) mg/dl Creatinine 1.86 H (0.6-1.2) mg/dl Est Cr Clr Drug Dosing 24.3 ml/min Est GFR ( Amer) 28.7 ml/min Est GFR (Non-Af Amer) 24.8 ml/min BUN/Creatinine Ratio 18.3 (10-20) Glucose 90 (70-99(Fasting)) mg/dl Calcium 8.5 (8.5-10.1) mg/dl Magnesium 1.8 (1.7-2.4) mg/dl Total Bilirubin 0.4 (0.2-1.0) mg/dl AST 12 L (13-39) U/L ALT 11 (7-52) U/L Alkaline Phosphatase 56 (34-104) U/L Troponin I High Sens 10.0 (0-14) pg/ml Total Protein 6.7 (6.0-8.3) gm/dl Albumin 3.8 (3.4-5.0) gm/dl Globulin 2.9 (2.5-4.0) gm/dl Albumin/Globulin Ratio 1.3 (0.9-2) SARS-CoV-2, RNA, NAAT (NEGATIVE) 06/06/22 Range/Units Unknown WBC (4.8-10.8) K/ul RBC (3.93-5.22) M/uL Hgb (12.0-16.0) g/dl Hct (34.1-44.9) % MCV (80.0-100.0) fL MCH (25.0-34.0) pg MCHC (32.0-36.0) g/dL RDW Std Deviation (36.4-46.3) fL RDW Coeff of Adalid (11.5-14.5) % Plt Count (130-400) K/uL MPV (9.4-12.3) fL Immature Gran % (Auto) % Neut % (Auto) % Lymph % (Auto) % [place] % (Auto) % Eos % (Auto) % Baso % (Auto) % Neut # (Auto) (1.4-6.5) K/uL Lymph # (Auto) (1.2-3.4) K/uL [place] # (Auto) (0.24-0.82) K/uL Eos # (Auto) (0-0.50) K/uL Baso # (Auto) (0-0.2) K/uL Immature Gran # (Auto) (0.00-0.02) K/uL PT (9.0-12.0) Seconds INR (0.9-1.1) APTT (21.0-31.0) Seconds PTT Ratio Sodium (136-145) mmol/L Potassium (3.5-5.1) mmol/L Chloride (98-107) mmol/L Carbon Dioxide (21-32) mmol/L Anion Gap (3-11) BUN (6-23) mg/dl Creatinine (0.6-1.2) mg/dl Est Cr Clr Drug Dosing ml/min Est GFR ( Amer) ml/min Est GFR (Non-Af Amer) ml/min BUN/Creatinine Ratio (10-20) Glucose (70-99(Fasting)) mg/dl Calcium (8.5-10.1) mg/dl Magnesium (1.7-2.4) mg/dl Total Bilirubin (0.2-1.0) mg/dl AST (13-39) U/L ALT (7-52) U/L Alkaline Phosphatase (34-104) U/L Troponin I High Sens (0-14) pg/ml Total Protein (6.0-8.3) gm/dl Albumin (3.4-5.0) gm/dl Globulin (2.5-4.0) gm/dl Albumin/Globulin Ratio (0.9-2) SARS-CoV-2, RNA, NAAT NEGATIVE (NEGATIVE) Imaging Data Radiologist's Impression: Cervical Spine CT 06/06/22 15:45 CT cervical spine wo con CLINICAL HISTORY: trauma after fall TECHNIQUE: Multidetector row helical CT of the cervical spine was performed without administration of intravenous contrast. Coronal and sagittal reforma tions were obtained. Automated dose lowering techniques and/or adjustment according to patient size were utilized for this exam. Comparison: None available at the time of this dictation. FINDINGS: No acute fractures or subluxations are identified. Degenerative changes are seen in the visualized spine. The alignment is normal. Soft tissues are unremarkable. IMPRESSION: Degenerative changes without evidence of acute bony injury. ACT 112: Negative or not required by law. Electronically signed by: Wilfredo Ramos M.D. 06/06/2022 4:[address] 06/06/22 15:[address] DOSE: HISTORY: Fall. syncope TECHNIQUE: Multiaxial CT images of the head were performed without the use of intravenous contrast. Automated exposure control was utilized for this study. A dose lowering technique was utilized adhering to the principles of ALARA. Comparison: Head CT 11/27/2019. Findings: A few partially opacified right ethmoid air cells. The calvarium and skull base are intact. The ventricles and sulci are within normal limits. There is no mass, hematoma, midline shift, or acute infarct. The mastoid air cells are clear. Impression: No acute intracranial abnormality. ACT 112: Negative or not required by law. Electronically signed by: Ty William M.D. 06/06/2022 4:[address] 06/06/22 15:45 CT orbit BI wo con CLINICAL HISTORY: fall trauma TECHNIQUE: Multidetector axial CT images through the orbits were obtained. Coronal and sagittal reformations were also obtained. Automated dose lowering techniques and/or adjustment according to patient size were utilized for this examination. This exam was performed without intravenous contrast. Comparison: None available at the time of this dictation. FINDINGS: The globes are normal and symmetric, without proptosis, obvious disruption or lens dislocation. There is no orbital radiopaque foreign body. The orbital josue are intact. Retrobulbar fat is normal, without hematoma. Extraocular muscles are normal and symmetric. Optic nerve sheath complexes are normal in course and caliber. The visualized osseous structures appear intact. Soft tissue swelling is seen about the right orbit. IMPRESSION: Soft tissue swelling without evidence of underlying bony abnor mality. ACT 112: Negative or not required by law. Electronically signed by: Wilfredo Ramos M.D. 06/06/2022 4:34 PM Shoulder X-Ray 06/06/22 15:45 XR shoulder LT min 2V routine CLINICAL HISTORY: pain TECHNIQUE: 3 views of the left shoulder were obtained. Comparison: Comparison is made to CT chest 08/02/2021 FINDINGS: There is no evidence of an acute fracture. Degenerative changes are seen in the glenohumeral joint. There is elevation of the humerus above the glenoid. The overlying soft tissues are unremarkable. The visualized portions of the lungs are clear. IMPRESSION: Degenerative changes without evidence of acute abnormality. Elevation of the humerus with the glenoid which can be seen in rotator cuff injury. ACT 112: Negative or not required by law. Electronically signed by: Wilfredo Ramos M.D. 06/06/2022 4:00 PM ECG Data Attestation: I personally reviewed and interpreted this ECG as follows: Additional Comments: EKG interpreted by me normal sinus rhythm poor baseline rate of 82 occasional PVC versus poor baseline nonspecific T abnormality no obvious ST segment elevation normal axis normal intervals MDM Narrative Medical decision making differential diagnosis includes closed head injury intracranial hemorrhage subdural hemorrhage skull fracture, orbital fracture cervical spine injury, left shoulder injury, near syncope, cardiac dysrhythmia, dehydration. Plan is to check labs, EKG, CTs, observe Evaluated for closed head injury multiple falls likely dehydration. Patient does not have any intracranial hemorrhage or fracture. Patient's creatinine is elevated she does have a history of CKD I suspect that she could be dehydrated. Patient responded nicely to IV saline. The case was discussed with the [facility] hospitalist for admission Impression & Plan Fall, Acute dehydration, Contusion of eyeball and orbital tissues, right eye, initial encounter Discharge Plan Visit Data Chief Complaint: Fall Stated Complaint: FALLS, DIZZINESS ED Provider: Dilan Henley Discharge Problem: Fall, Acute dehydration, Contusion of eyeball and orbital tissues, right eye, initial encounter Patient Disposition: Admitted As Inpatient Forms Stand Alone Forms: My [facility] Prescriptions Prescriptions: No Action cyclobenzaprine 10 mg Tablet 10 mg PO TID PRN (Reason: Muscle Pain) acetaminophen [Tylenol] 325 mg Tablet 650 mg PO Q6 PRN (Reason: Pain) enalapril maleate 10 mg tablet 20 mg PO DAILY polyethylene glycol 3350 [Miralax] 17 gram Powder In Packet 17 g PO DAILY isosorbide mononitrate 30 mg tablet extended release 24 hr 30 mg PO DAILY atenolol 25 mg tablet 25 mg PO DAILY amlodipine 2.5 mg tablet 2.5 mg PO QAM clopidogrel 75 mg tablet 75 mg PO DAILY aspirin [Aspir-Low] 81 mg Tablet,Delayed Release (Dr/Ec) 81 mg PO Q OTHER DAY pantoprazole 20 mg tablet,delayed release (DR/EC) 20 mg PO DAILY nitroglycerin [Nitrostat] 0.4 mg Tablet, Sublingual 0.4 mg sublingual DIRECTED PRN (Reason: Chest Pain) docusate sodium 100 mg Capsule 100 mg PO HS Preparation H Suppository 1 supp MI DIRECTED PRN (Reason: Hemorrhoids) albuterol sulfate [Ventolin HFA] 90 mcg/actuation Hfa Aerosol Inhaler 2 puff INHALATION Q4 PRN (Reason: Shortness Of Breath Or Wheezing) Centrum Silver Tablet 1 tab PO DAILY ezetimibe 10 mg tablet 10 mg PO DAILY rosuvastatin 20 mg tablet 20 mg PO QPM duloxetine 30 mg capsule,delayed release(DR/EC) 30 mg PO DAILY Oscal 500/200 D3 1 tab PO DAILY Referrals Referrals: Jasson Denney MD [Primary Care Provider] -
--- NOTE | 2022-06-06 16:02 | XRay Report ---
XR shoulder LT min 2V routine CLINICAL HISTORY: pain TECHNIQUE: 3 views of the left shoulder were obtained. Comparison: Comparison is made to CT chest 08/02/2021 FINDINGS: There is no evidence of an acute fracture. Degenerative changes are seen in the glenohumeral joint. T here is elevation of the humerus above the glenoid. The overlying soft tissues are unremarkable. The visualized portions of the lungs are clear. IMPRESSION: Degenerative changes without evidence of acute abnormality. Elevation of the humerus with the glenoid which can be seen in rotator cuff injury. ACT 112: Negative or not required by law. Electronically signed by: Wilfredo Ramos M.D. 06/06/2022 4:00 PM
[2022-06-06 16:05] LABS: Basophils # (auto) 0.05 K/uL (0-0.2); Basophils % (auto) 0.4 %; Eosinophils # (auto) 0.06 K/uL (0-0.50); Eosinophils % (auto) 0.5 %; Hematocrit (blood only) 31.7 % (34.1-44.9); Hemoglobin 10.3 g/dl (12.0-16.0); Immature Granulocytes # (auto) 0.05 K/uL (0.00-0.02); Immature Granulocytes % (auto) 0.4 %; Lymphocytes % (auto) 10.2 %; Mean Corpuscular Hemoglobin 27.3 pg (25.0-34.0); Mean Corpuscular Hgb Conc 32.5 g/dL (32.0-36.0); Mean Corpuscular Volume 84.1 fL (80.0-100.0); Mean Platelet Volume 9.8 fL (9.4-12.3); Monocytes # (auto) 1.21 K/uL (0.24-0.82); Monocytes % (auto) 10.3 %; Neutrophils # (auto) 9.19 K/uL (1.4-6.5); Neutrophils % (auto) 78.2 %; Platelet Count 247 K/uL (130-400); RDW Coefficient of Variation 16.2 % (11.5-14.5); RDW Standard Deviation 49.9 fL (36.4-46.3); Red Blood Count 3.77 M/uL (3.93-5.22); White Blood Count 11.76 K/ul (4.8-10.8)
[2022-06-06 16:36] LABS: Partial Thromboplastin Ratio 0.9; Partial Thromboplastin Time 25.1 Seconds (21.0-31.0); Prothrombin Time 11.1 Seconds (9.0-12.0)
--- NOTE | 2022-06-06 16:36 | CT Scan Report ---
HEAD CT NONCONTRAST CT DOSE: HISTORY: Fall. syncope TECHNIQUE: Multiaxial CT images of the head were performed without the use of intravenous contrast. A utomated exposure control was utilized for this study. A dose lowering technique was utilized adheri ng to the principles of ALARA. Comparison: Head CT 11/27/2019. Findings: A few partially opacified right ethmoid air cells. The calvarium and skull base are intact. The ventricles and sulci are within normal limits. There is no mass, hematoma, midline shift, or acu te infarct. The mastoid air cells are clear. Impression: No acute intracranial abnormality. ACT 112: Negative or not required by law. Electronically signed by: yT William M.D. 06/06/2022 4:34 PM
--- NOTE | 2022-06-06 16:36 | CT Scan Report ---
CT orbit BI wo con CLINICAL HISTORY: fall trauma TECHNIQUE: Multidetector axial CT images through the orbits were obtained. Coronal and sagittal refor mations were also obtained. Automated dose lowering techniques and/or adjustment according to patient size were utilized for this examination. This exam was performed without intravenous contrast. Comparison: None available at the time of this dictation. FINDINGS: The globes are normal and symmetric, without proptosis, obvious disruption or lens dislocation. There is no orbital radiopaque foreign body. The orbital josue are intact. Retrobulbar fat is normal, with out hematoma. Extraocular muscles are normal and symmetric. Optic nerve sheath complexes are normal i n course and caliber. The visualized osseous structures appear intact. Soft tissue swelling is seen about the right orbit. IMPRESSION: Soft tissue swelling without evidence of underlying bony abnormality. ACT 112: Negative or not required by law. Electronically signed by: Wilfredo Ramos M.D. 06/06/2022 4:34 PM
[2022-06-06 16:39] LABS: Albumin Globulin Ratio 1.3 (0.9-2); Albumin Level 3.8 gm/dl (3.4-5.0); BUN Creatinine Ratio 18.3 (10-20); Bilirubin,Total 0.4 mg/dl (0.2-1.0); Calcium 8.5 mg/dl (8.5-10.1); Creatinine Clr Calc Pharmacy 24.3 ml/min; Est GFR (African American) 28.7 ml/min; Est GFR (Non-African American) 24.8 ml/min; Globulin 2.9 gm/dl (2.5-4.0); Magnesium 1.8 mg/dl (1.7-2.4); Potassium 4.5 mmol/L (3.5-5.1); Total Protein 6.7 gm/dl (6.0-8.3)
--- NOTE | 2022-06-06 16:40 | CT Scan Report ---
CT cervical spine wo con CLINICAL HISTORY: trauma after fall TECHNIQUE: Multidetector row helical CT of the cervical spine was performed without administration of intravenous contrast. Coronal and sagittal reformations were obtained. Automated dose lowering techn iques and/or adjustment according to patient size were utilized for this exam. Comparison: None available at the time of this dictation. FINDINGS: No acute fractures or subluxations are identified. Degenerative changes are seen in the visualized sp ine. The alignment is normal. Soft tissues are unremarkable. IMPRESSION: Degenerative changes without evidence of acute bony injury. ACT 112: Negative or not required by law. Electronically signed by: Wilfredo Ramos M.D. 06/06/2022 4:39 PM
--- NOTE | 2022-06-06 17:42 | History & Physical Report ---
Date of Service June 06, 2022 Assessment & Plan (1) Lightheadedness: Plan: Lightheadedness may be precipitated by ongoing herpes zoster infection over the last 3 weeks with poor oral intake from low appetite versus medication side effect versus abnormal blood pressure with reports of BP low of 90 systolic versus high of 200 systolic over 3 days time. Continue to monitor blood pressure regularly over night on telemetry. (2) Fall: Plan: PT/OT evaluation. (3) HTN (hypertension): Plan: Fluctuation of blood pressure over the last 3 to 4 days. It is unclear why this is the case. She was taking atenolol 25 which was reduced to 12.5 by her hand winder of while ago. Blood pressure has recently been elevated, possible zoster infection affect? And she was placed on 2 additional agents including Imdur 30 mg daily and enalapril at 20 mg daily. She had hypotension prior to arrival. For now will stop indoor and continue with enalapril per her PCP recommendation. Also will continue atenolol at 25 daily and Norvasc 2.5 daily. (4) Herpes zoster: Plan: Rash still present in the left mid abdominal dermatomes. She reports her symptoms are improving. No Valtrex indicated giving timing of infection. Cover rash and placed on isolation precautions. (5) CKD (chronic kidney disease) stage 3, GFR 30-59 ml/min: Plan: Chronic with a baseline creatinine around 1.5. She is monitored by nephrology as outpatient. Her creatinine today is 1.86 reflective of possible dehydration which may be contributing to symptoms above. Continue to monitor BMP in a.m. oral rehydration recommended. (6) Hiatal hernia: Plan: Hiatal hernia found on imaging and she was given an increase Protonix to 40 mg daily. Continue this. Conservative management. (7) Depression: Plan: Chronic, stable. Continue Cymbalta per home regimen. (8) CAD (coronary artery disease): Plan: Chronic, stable. We will hold aspirin and Plavix for now given the recent head injury and reports of dizziness. There is no evidence of intracranial bleed on imaging and she clinically is improved. May probably restart tomorrow or the next day. Continue rosuvastatin. DVT prophylaxis-SCDs for now given trauma to the head and holding dual antiplatelet therapy. Full code as discussed with patient and her son on admission Disposition-to home in next 1 to 2 days pending PT/OT evaluations and clinical improvement. Nita Hurt DO [facility] Hospitalist History of Present Illness Chief Complaint: dizziness, multiple falls Primary Care Provider: Jasson Denney MD 82-year-old female presents to the ER with dizziness after multiple falls today. She was reporting dizziness. She was recently diagnosed with herpes zoster on her abdomen, but did not take Valtrex as this was already healing. She is on aspirin and Plavix. She denies any headache, slurred speech, blurred vision, nausea, or vomiting. Prehospital her blood pressure was 90 systolic per EMS and she received 750 mL of saline prior to arrival. Current blood pressure is 146/85. Her creatinine today is elevated to 1.86. Per records review she has a baseline creatinine of 1.5-1.8. She was recently seen in the ER for abdominal pain 4-5 days ago and creatinine at that time was 1.52. A CT scan revealed an incidental breast lesion which follow-up was recommended. GI outpatient follow-up was recommended for a hiatal hernia. Patient reported at that time she did not ever wish to undergo surgery for this. They doubled her pantoprazole from 20 to 40 mg daily. Since Friday ER visit, she has had significant reported fluctuations in blood pressure at home, and has had orthostatic symptoms with changes in a position. This has precipitated her multiple falls over the past 3 days. She saw her PCP this am who put her on Imdur 30mg daily and enalapril 20mg daily which she took both this am. She continues on atenolol and amlodipine from before per her report. +constipation, no respiratory symptoms, no cough or runny nose, reports taking laxatives. +severe back pain and legs ache when she walks-chronic, no changes. Uses Aspercreme, Icy Hot. Takes Tylenol every night because of her back. Can't sleep. +diaphoresis episode this morning, weight loss (+10lb) reported but she hasn't been feeling well or eating. 2.5 weeks she started not eating well--appetite went down. +Left shoulder pain and difficulty moving it since the fall. XR did not reveal a fracture. At the bedside orthostatics are negative and she did not become symptomatic with standing up. 150/74 75 (lying) 146/75 81 (sitting) 132/68 84 (standing) Allergies Allergy/AdvReac Type Severity Reaction Status Date / Time adhesive tape Allergy rash/itchy Verified 06/06/22 16:52 latex Allergy rash/itchy Verified 06/06/22 16:52 Home Medications Medication Instructions Recorded Confirmed Type Oscal 500/200 D3 1 tab PO DAILY 06/06/22 06/06/22 History acetaminophen 325 mg tablet 650 mg PO Q6 PRN Pain 06/06/22 06/06/22 History (Tylenol) albuterol sulfate 90 mcg/actuation 2 puff inhalation Q4 PRN Shortness 06/06/22 06/06/22 History aerosol inhaler (Ventolin HFA) Of Breath Or Wheezing aspirin 81 mg tablet,delayed 81 mg PO Q OTHER DAY 06/06/22 06/06/22 History release atenolol 25 mg tablet 25 mg PO DAILY 06/06/22 06/06/22 History clopidogrel 75 mg tablet 75 mg PO DAILY 06/06/22 06/06/22 History docusate sodium 100 mg capsule 100 mg PO HS 06/06/22 06/06/22 History duloxetine 30 mg capsule,delayed 30 mg PO DAILY 06/06/22 06/06/22 History release enalapril maleate 10 mg tablet 20 mg PO DAILY 06/06/22 06/06/22 History ezetimibe 10 mg tablet 10 mg PO DAILY 06/06/22 06/06/22 History isosorbide mononitrate 30 mg 30 mg PO DAILY 06/06/22 06/06/22 History tablet,extended release 24 hr knzhewibghml-oruuuipp-xgtcea tablet 1 tab PO DAILY 06/06/22 06/06/22 History nitroglycerin 0.4 mg sublingual 0.4 mg sublingual DIRECTED PRN 06/06/22 06/06/22 History tablet (Nitrostat) Chest Pain pantoprazole 20 mg tablet,delayed 40 mg PO DAILY 06/06/22 06/06/22 History release polyethylene glycol 3350 17 gram 17 g PO DAILY PRN Constipation 06/06/22 06/06/22 History oral powder packet (Miralax) rosuvastatin 20 mg tablet 20 mg PO QPM 06/06/22 06/06/22 History Past Med/Surg History Medical History CAD (coronary artery disease) CKD (chronic kidney disease) stage 3, GFR 30-59 ml/min COPD (chronic obstructive pulmonary disease) Depression Heart attack HLD (hyperlipidemia) HTN (hypertension) Prediabetes Retroperitoneal bleed Tobacco abuse Surgical History H/O heart artery stent History of cataract removal with insertion of prosthetic lens History of hysterectomy 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 stent graft Family History Mother CHF (congestive heart failure) Father Emphysema of lung Sister Brain tumor Social History Smoking Status: Never smoker Tobacco Type: Cigarettes Smoking End Date: 3 yrs ago; Second Hand Exposure: No; Hx Alcohol Use: No Hx Substance Use: No Preferred Language: Portuguese Communication Ability: Effective Religious Ritual Slaughterer Required: No Beliefs That Will Affect Care: None marital status: / Current Living Situation: Alone current occupational status: retired Other Information That Helps Us Care for You: No Feels Safe at Home: No Is there a partner from a previous relationship who is making you feel unsafe now?: No Any Concerns about Your Family Situation: No Would You Like to Speak to Someone About Your Situation: No Safety Concerns: Afraid for Self Assistive Devices: Cane Review of Systems Review of Systems: All systems were reviewed and negative except as indicated on HPI above. Physical Exam Physical Exam: CONSTITUTIONAL: WNWD, vitals as above, generally well- appearing, NAD EYES: EOMI bilaterally, PERRL, normal conjunctivae, no scleral icterus, no funduscopic abnormalitym she has some medial periorbital eccymosis around her right eye from trauma of falling. ENT: external ear and nose normal, oropharynx clear, MMM NECK: trachea midline RESPIRATORY: clear to auscultation bilaterally, no crackles, rales or wheezes, normal respiratory effort CARDIOVASCULAR: regular rate and rhythm, S1 and 2 heard without murmurs, gallops or rubs, no JVD, no peripheral edema CHEST: inspection of chest was normal GASTROINTESTINAL: soft, nontender, ND, no guarding MUSCULOSKELETAL: strength 5/5 throughout except she has very restricted ROM in the right shoulder. SKIN: warm and dry with a large shingles rash along mid abdominal dermatome that extends from mid-back and around to the front. Blisters are crusting over and there is still significant redness. NEUROLOGIC: CN 2-12 grossly intact, no sensory deficit, normal cognition, normal speech, no tremor PSYCHIATRIC: alert cooperative and oriented to person, place and time. Euthymic mood, makes good eye contact, language grossly intact, recent and remote memory grossly intact. Results & Data Results & Data ([facility]) Vital Signs (Past 12 Hours) Vital Signs Temp Pulse Resp BP Pulse Ox O2 Del Method 06/06/22 15:45 Room Air 06/06/22 15:15 36.8 C 86 15 146/85 H 98 Room Air Laboratory Results Short CBC 06/06/22 Range/Units Unknown WBC 11.76 H (4.8-10.8) K/ul Hgb 10.3 L (12.0-16.0) g/dl Hct 31.7 L (34.1-44.9) % Plt Count 247 (130-400) K/uL BMP 06/06/22 Unknown Sodium 139 Potassium 4.5 Chloride 108 H Carbon Dioxide 25 BUN 34 H Creatinine 1.86 H Glucose 90 Calcium 8.5 Liver Function 06/06/22 Range/Units Unknown Total Bilirubin 0.4 (0.2-1.0) mg/dl AST 12 L (13-39) U/L ALT 11 (7-52) U/L Alkaline Phosphatase 56 (34-104) U/L Albumin 3.8 (3.4-5.0) gm/dl Diagnostic Findings Cervical Spine CT 06/06/22 15:45 CT cervical spine wo con CLINICAL HISTORY: trauma after fall TECHNIQUE: Multidetector row helical CT of the cervical spine was performed wit hout administration of intravenous contrast. Coronal and sagittal reformations were obtained. Automated dose lowering techniques and/or adjustment according to patient size were utilized for this exam. Comparison: None available at the time of this dictation. FINDINGS: No acute fractures or subluxations are identified. Degenerative changes are seen in the visualized spine. The alignment is normal. Soft tissues are unremarkable. IMPRESSION: Degenerative changes without evidence of acute bony injury. ACT 112: Negative or not required by law. Electronically signed by: Wilfredo Ramos M.D. 06/06/2022 4:[address] 06/06/22 15:[address] DOSE: HISTORY: Fall. syncope TECHNIQUE: Multiaxial CT images of the head were performed without the use of intravenous contrast. Automated exposure control was utilized for this study. A dose lowering technique was utilized adhering to the principles of ALARA. Comparison: Head CT 11/27/2019. Findings: A few partially opacified right ethmoid air cells. The calvarium and skull base are intact. The ventricles and sulci are within normal limits. There is no mass, hematoma, midline shift, or acute infarct. The mastoid air cells are clear. Impression: No acute intracranial abnormality. ACT 112: Negative or not required by law. Electronically signed by: Ty William M.D. 06/06/2022 4:[address] 06/06/22 15:45 CT orbit BI wo con CLINICAL HISTORY: fall trauma TECHNIQUE: Multidetector axial CT images through the orbits were obtained. Coronal and sagittal reformations were also obtained. Automated dose lowering techniques and/or adjustment according to patient size were utilized for this examination. This exam was performed without intravenous contrast. Comparison: None available at the time of this dictation. FINDINGS: The globes are normal and symmetric, without proptosis, obvious disruption or lens dislocation. There is no orbital radiopaque foreign body. The orbital josue are intact. Retrobulbar fat is normal, without hematoma. Extraocular muscles are normal and symmetric. Optic nerve sheath complexes are normal in course and caliber. The visualized osseous structures appear intact. Soft tissue swelling is seen about the right orbit. IMPRESSION: Soft tissue swelling without evidence of underlying bony abnormality. ACT 112: Negative or not required by law. Electronically signed by: Wilfredo Ramos M.D. 06/06/2022 4:34 PM Shoulder X-Ray 06/06/22 15:45 XR shoulder LT min 2V routine CLINICAL HISTORY: pain TECHNIQUE: 3 views of the left shoulder were obtained. Comparison: Comparison is made to CT chest 08/02/2021 FINDINGS: There is no evidence of an acute fracture. Degenerative changes are seen in the glenohumeral joint. There is elevation of the humerus above the glenoid. The overlying soft tissues are unremarkable. The visualized portions of the lungs are clear. IMPRESSION: Degenerative changes without evidence of acute abnormality. Elevation of the humerus with the glenoid which can be seen in rotator cuff injury. ACT 112: Negative or not required by law. Electronically signed by: Wilfredo Ramos M.D. 06/06/2022 4:00 PM Code Status & VTE Plan VTE Prophylaxis Plan VTE Prophylaxis will be ordered: Yes
[2022-06-06] MEDS ORDERED: ACETAMINOPHEN 500 MG TAB PO STA (18:36)
[2022-06-06] MEDS ORDERED: POLYETHYLENE (MIRALAX) 17 GM PACK PO PRN ×2 (20:47)
[2022-06-06] MEDS: DOCUSATE SODIUM 100 MG CAP PO SCH (21:18)
[2022-06-07] MEDS: ROSUVASTATIN CALCIUM 20 MG TAB PO SCH ×2 (03:51→19:36)
[2022-06-07] MEDS: ACETAMINOPHEN 325 MG TAB PO PRN (06:02)
[2022-06-07 06:54] LABS: Hematocrit (blood only) 31.7 % (34.1-44.9); Hemoglobin 10.2 g/dl (12.0-16.0); Mean Corpuscular Hemoglobin 26.8 pg (25.0-34.0); Mean Corpuscular Hgb Conc 32.2 g/dL (32.0-36.0); Mean Corpuscular Volume 83.4 fL (80.0-100.0); Mean Platelet Volume 9.8 fL (9.4-12.3); Platelet Count 222 K/uL (130-400); RDW Standard Deviation 48.7 fL (36.4-46.3)
[2022-06-07 07:17] LABS: Calcium 8.7 mg/dl (8.5-10.1); Creatinine Clr Calc Pharmacy 30.1 ml/min; Est GFR (African American) 37.2 ml/min; Est GFR (Non-African American) 32.1 ml/min; Magnesium 1.7 mg/dl (1.7-2.4); Phosphorus 2.9 mg/dl (2.5-4.9); Potassium 3.9 mmol/L (3.5-5.1)
--- NOTE | 2022-06-07 09:41 | Hospitalist Progress Note ---
Date of Service June 07, 2022 Assessment & Plan (1) Lightheadedness: Plan: Lightheadedness may be precipitated by ongoing herpes zoster infection over the last 3 weeks with poor oral intake from low appetite versus medication side effect versus abnormal blood pressure with reports of BP low of 90 systolic versus high of 200 systolic over 3 days time. Continue to monitor blood pressure regularly on telemetry. (2) Fall: Plan: PT/OT evaluation. (3) HTN (hypertension): Plan: Fluctuation of blood pressure over the last 3 to 4 days. It is unclear why this is the case. She was taking atenolol 25 which was reduced to 12.5 by her keno writer/runner of while ago. Blood pressure has recently been elevated, possible zoster infection affect? And she was placed on 2 additional agents including Imdur 30 mg daily and enalapril at 20 mg daily. She had hypotension prior to arrival. For now stop Imdur and continue with raquel lapril per her PCP recommendation. Also will continue atenolol at 25 daily - and possibly Norvasc 2.5 daily. (4) Herpes zoster: Plan: Rash still present in the left mid abdominal dermatomes. However mostly crusted over. She reports her symptoms are improving. No Valtrex indicated giving timing of infection. Cover rash and placed on isolation precautions. (5) CKD (chronic kidney disease) stage 3, GFR 30-59 ml/min: Plan: Chronic with a baseline creatinine around 1.5. She is monitored by nephrology as outpatient. Her creatinine on admission 1.86 reflective of possible dehydration which may be contributing to symptoms above. Current Cr back to 1.5 oral rehydration recommended. (6) Hiatal hernia: Plan: Hiatal hernia found on imaging and she was given an increase Protonix to 40 mg daily. Continue this. Conservative management. (7) Depression: Plan: Chronic, stable. Continue Cymbalta per home regimen. (8) CAD (coronary artery disease): Plan: Chronic, stable. We will hold aspirin and Plavix for now given the recent head injury and reports of dizziness. There is no evidence of intracranial bleed on imaging and she clinically is improved. May probably restart tomorrow or the next day. Continue rosuvastatin. DVT prophylaxis-SCDs for now given trauma to the head and holding dual antiplatelet therapy. Full code as discussed with patient and her son on admission Disposition-to home in next 1 to 2 days pending PT/OT evaluations and clinical improvement. Admission and Anticipated Discharge Date Admission Date: June 06, 2022 Subjective Pt seen in follow up of fall Currently patient is feeling well, and is eager to go home She says she is no longer dizzy or lightheaded Reports she has been ambulating in the room without any difficulty Also denies any fevers chills chest pain shortness of breath palpitations Update: when preparing for Dc pt dizzy again - will continue to monitor pt Review of Systems Review of Systems: All systems reviewed & are unremarkable except as noted in Subjective Physical Exam Physical Exam: CONSTITUTIONAL: WNWD, generally well-appearing, NAD EYES: EOMI, PERRL, normal conjunctivae, no scleral icterus, + medial periorbital ecchymosis around her right eye ENT: external ear and nose normal, oropharynx clear, MMM NECK: supple RESPIRATORY: clear to auscultation bilaterally, no crackles, rales or wheezes, normal respiratory effort CARDIOVASCULAR: regular rate and rhythm, S1 and 2 heard CHEST: inspection of chest was normal GASTROINTESTINAL: soft, nontender, ND, no guarding MUSCULOSKELETAL: moves extremities SKIN: warm and dry with a large shingles rash (mostly dry and crusted over) along mid abdominal dermatome that extends from mid-back and around to the front. NEURO/PSYCH: alert cooperative and oriented to person, place and time. Euthymic mood, normal speech, moves extremities Results & Data Results & Data ([facility]) Vital Signs (Past 12 Hours) Vital Signs Pulse Resp BP Pulse Ox O2 Del Method 06/07/22 04:00 79 16 94 Room Air 06/07/22 04:00 185/89 H 06/07/22 04:57 Room Air 06/07/22 03:00 72 23 167/71 H 06/07/22 02:00 68 18 142/65 H 06/07/22 01:00 68 17 129/68 96 06/07/22 00:00 76 18 135/64 95 06/06/22 23:00 74 22 131/59 L 95 06/06/22 22:00 71 17 155/83 H 95 06/06/22 22:00 155/83 H Laboratory Results 06/07/22 06/07/22 06/06/22 Range/Units 06:27 06:27 Unknown WBC 9.10 (4.8-10.8) K/ul RBC 3.80 L (3.93-5.22) M/uL Hgb 10.2 L (12.0-16.0) g/dl Hct 31.7 L (34.1-44.9) % MCV 83.4 (80.0-100.0) fL MCH 26.8 (25.0-34.0) pg MCHC 32.2 (32.0-36.0) g/dL RDW Std Deviation 48.7 H (36.4-46.3) fL RDW Coeff of Adalid 16.0 H (11.5-14.5) % Plt Count 222 (130-400) K/uL MPV 9.8 (9.4-12.3) fL Immature Gran % (Auto) % Neut % (Auto) % Lymph % (Auto) % [place] % (Auto) % Eos % (Auto) % Baso % (Auto) % Neut # (Auto) (1.4-6.5) K/uL Lymph # (Auto) (1.2-3.4) K/uL [place] # (Auto) (0.24-0.82) K/uL Eos # (Auto) (0-0.50) K/uL Baso # (Auto) (0-0.2) K/uL Immature Gran # (Auto) (0.00-0.02) K/uL PT (9.0-12.0) Seconds INR (0.9-1.1) APTT (21.0-31.0) Seconds PTT Ratio Sodium 140 (136-145) mmol/L Potassium 3.9 (3.5-5.1) mmol/L Chloride 108 H (98-107) mmol/L Carbon Dioxide 25 (21-32) mmol/L Anion Gap 7 (3-11) BUN 33 H (6-23) mg/dl Creatinine 1.50 H D (0.6-1.2) mg/dl Est Cr Clr Drug Dosing 30.1 ml/min Est GFR ( Amer) 37.2 ml/min Est GFR (Non-Af Amer) 32.1 ml/min BUN/Creatinine Ratio 22.0 H (10-20) Glucose 99 (70-99(Fasting)) mg/dl Calcium 8.7 (8.5-10.1) mg/dl Phosphorus 2.9 (2.5-4.9) mg/dl Magnesium 1.7 (1.7-2.4) mg/dl Total Bilirubin (0.2-1.0) mg/dl AST (13-39) U/L ALT (7-52) U/L Alkaline Phosphatase (34-104) U/L Troponin I High Sens (0-14) pg/ml Total Protein (6.0-8.3) gm/dl Albumin (3.4-5.0) gm/dl Globulin (2.5-4.0) gm/dl Albumin/Globulin Ratio (0.9-2) SARS-CoV-2, RNA, NAAT NEGATIVE (NEGATIVE) 06/06/22 06/06/22 06/06/22 Range/Units Unknown Unknown Unknown WBC 11.76 H (4.8-10.8) K/ul RBC 3.77 L (3.93-5.22) M/uL Hgb 10.3 L (12.0-16.0) g/dl Hct 31.7 L (34.1-44.9) % MCV 84.1 (80.0-100.0) fL MCH 27.3 (25.0-34.0) pg MCHC 32.5 (32.0-36.0) g/dL RDW Std Deviation 49.9 H (36.4-46.3) fL RDW Coeff of Adalid 16.2 H (11.5-14.5) % Plt Count 247 (130-400) K/uL MPV 9.8 (9.4-12.3) fL Immature Gran % (Auto) 0.4 % Neut % (Auto) 78.2 % Lymph % (Auto) 10.2 % [place] % (Auto) 10.3 % Eos % (Auto) 0.5 % Baso % (Auto) 0.4 % Neut # (Auto) 9.19 H (1.4-6.5) K/uL Lymph # (Auto) 1.20 (1.2-3.4) K/uL [place] # (Auto) 1.21 H (0.24-0.82) K/uL Eos # (Auto) 0.06 (0-0.50) K/uL Baso # (Auto) 0.05 (0-0.2) K/uL Immature Gran # (Auto) 0.05 H (0.00-0.02) K/uL PT 11.1 (9.0-12.0) Seconds INR 1.0 (0.9-1.1) APTT 25.1 (21.0-31.0) Seconds PTT Ratio 0.9 Sodium 139 (136-145) mmol/L Potassium 4.5 (3.5-5.1) mmol/L Chloride 108 H (98-107) mmol/L Carbon Dioxide 25 (21-32) mmol/L Anion Gap 6 (3-11) BUN 34 H (6-23) mg/dl Creatinine 1.86 H (0.6-1.2) mg/dl Est Cr Clr Drug Dosing 24.3 ml/min Est GFR ( Amer) 28.7 ml/min Est GFR (Non-Af Amer) 24.8 ml/min BUN/Creatinine Ratio 18.3 (10-20) Glucose 90 (70-99(Fasting)) mg/dl Calcium 8.5 (8.5-10.1) mg/dl Phosphorus (2.5-4.9) mg/dl Magnesium 1.8 (1.7-2.4) mg/dl Total Bilirubin 0.4 (0.2-1.0) mg/dl AST 12 L (13-39) U/L ALT 11 (7-52) U/L Alkaline Phosphatase 56 (34-104) U/L Troponin I High Sens 10.0 (0-14) pg/ml Total Protein 6.7 (6.0-8.3) gm/dl Albumin 3.8 (3.4-5.0) gm/dl Globulin 2.9 (2.5-4.0) gm/dl Albumin/Globulin Ratio 1.3 (0.9-2) SARS-CoV-2, RNA, NAAT (NEGATIVE) Medications Administered Current Inpatient Medications Acetaminophen (Acetaminophen 325 Mg Tab) 650 mg PO Q4H PRN PRN Reason: Pain or Fever Stop: 07/06/22 20:46 Last Admin: 06/07/22 06:02 Dose: 650 mg Atenolol (Atenolol 25 Mg Tablet) 25 mg PO DAILY [facility] Stop: 07/07/22 08:59 Docusate Sodium (Docusate Sodium 100 Mg Cap) 100 mg PO HS [facility] Stop: 07/06/22 20:59 Last Admin: 06/06/22 21:18 Dose: 100 mg Duloxetine HCl (Duloxetine Hcl 30 Mg Cap) 30 mg PO DAILY [facility] Stop: 07/07/22 08:59 Ezetimibe (Ezetimibe 10 Mg Tablet) 10 mg PO DAILY [facility] Stop: 07/07/22 08:59 Enalapril Maleate (Enalapril Maleate 10 Mg Tab) 20 mg PO DAILY [facility] Stop: 07/07/22 08:59 Pantoprazole Sodium (Pantoprazole 40 Mg Tab) 40 mg PO DAILY [facility] Stop: 07/07/22 08:59 Polyethylene Glycol (Polyethylene (Miralax) 17 Gm Pack) 17 gm PO DAILY PRN PRN Reason: Constipation Stop: 07/06/22 20:46 Polyethylene Glycol (Polyethylene (Miralax) 17 Gm Pack) 17 gm PO DAILY PRN PRN Reason: Constipation Stop: 07/06/22 20:46 Rosuvastatin Calcium (Rosuvastatin Calcium 20 Mg Tab) 20 mg PO QPM [facility] Stop: 07/06/22 20:59 Last Admin: 06/07/22 03:51 Dose: Not Given
[2022-06-07] MEDS: DULoxetine HCL 30 MG CAP PO SCH (10:23)
[2022-06-07] MEDS: ATENOLOL 25 MG TABLET PO SCH (10:23)
[2022-06-07] MEDS: ENALAPRIL MALEATE 10 MG TAB PO SCH (10:24)
[2022-06-07] MEDS: EZETIMIBE 10 MG TABLET PO SCH (10:24)
[2022-06-07] MEDS: PANTOprazole 40 MG TAB PO SCH (10:24)
[2022-06-07 10:57] LABS: Appearance Urine Clear (Clear); Bacteria Urine Automated Negative (Negative); Bilirubin Urine Negative (Negative); Blood Urine Negative (Negative); Cast Urine Automated 0 /lpf (0-5); Color Urine Yellow; Epithelial Cell Urine Auto 20-30 /lpf (0-5); Glucose Urine UA Negative (Negative); Ketones Urine Negative (Negative); Leukocyte Esterase Urine 1+ (Negative); Nitrite Urine Negative (Negative); Protein Urine Negative (Negative); RBC Urine Automated 0-4 /hpf (0-4); Specific Gravity Urine 1.014 (1.000-1.030); Urobilinogen Urine Negative (Negative); pH Urine 5.5 (4.5-7.5)
[2022-06-07] MEDS ORDERED: amLODIPine BESYLATE 5 MG TAB PO ONE (17:31)
[2022-06-07] MEDS: DOCUSATE SODIUM 100 MG CAP PO SCH (19:36)
[2022-06-08] MEDS: ACETAMINOPHEN 325 MG TAB PO PRN (03:42)
[2022-06-08] MEDS ORDERED: hydrALAZINE HCL 20 MG/ML VIAL IV STA (04:08)
--- NOTE | 2022-06-08 06:31 | Electrocardiogram Report ---
Test Reason : Blood Pressure : / mmHG Vent. Rate : 073 BPM Atrial Rate : 073 BPM P-R Int : 188 ms QRS Dur : 082 ms QT Int : 430 ms P-R-T Axes : 065 013 -17 degrees QTc Int : 473 ms Poor data quality, interpretation may be adversely affected Normal sinus rhythm T wave abnormality, consider inferior ischemia T wave abnormality, consider anterolateral ischemia Abnormal ECG When compared with ECG of 01-JUN-2022 12:36, T wave inversion more evident in Inferior leads T wave inversion now evident in Anterolateral leads Confirmed by Pablo Townsend ([id number] on 06/08/2022 6:30:28 AM Referred By: REFERRED SELF Confirmed By:Pablo Townsend
[2022-06-08 07:47] LABS: Hemoglobin 11.9 g/dl (12.0-16.0); Mean Corpuscular Hemoglobin 27.7 pg (25.0-34.0); Mean Corpuscular Hgb Conc 33.1 g/dL (32.0-36.0); Mean Corpuscular Volume 83.7 fL (80.0-100.0); Platelet Count 275 K/uL (130-400); RDW Standard Deviation 49.1 fL (36.4-46.3); White Blood Count 8.36 K/ul (4.8-10.8)
[2022-06-08] MEDS: EZETIMIBE 10 MG TABLET PO SCH (08:06)
[2022-06-08] MEDS: ATENOLOL 25 MG TABLET PO SCH (08:06)
[2022-06-08] MEDS: DULoxetine HCL 30 MG CAP PO SCH (08:06)
[2022-06-08] MEDS: PANTOprazole 40 MG TAB PO SCH (08:06)
[2022-06-08] MEDS: ENALAPRIL MALEATE 10 MG TAB PO SCH (08:06)
[2022-06-08 08:18] LABS: Anion Gap 9 (3-11); BUN Creatinine Ratio 20.6 (10-20); Blood Urea Nitrogen 26 mg/dl (6-23); Calcium 9.4 mg/dl (8.5-10.1); Carbon Dioxide 25 mmol/L (21-32); Chloride 105 mmol/L (98-107); Creatinine Clr Calc Pharmacy 35.4 ml/min; Est GFR (African American) 45.9 ml/min; Est GFR (Non-African American) 39.6 ml/min; Glucose 124 mg/dl (70-99(Fasting)); Magnesium 1.6 mg/dl (1.7-2.4); Phosphorus 2.6 mg/dl (2.5-4.9); Sodium 139 mmol/L (136-145)
[2022-06-08] MEDS ORDERED: MAGNESIUM SULFATE / D5W 1 GM/100 ML BAG IV ONE (08:29)
--- NOTE | 2022-06-08 08:30 | Hospitalist Progress Note ---
Date of Service June 08, 2022 Assessment & Plan (1) Lightheadedness: Plan: Lightheadedness may be precipitated by ongoing herpes zoster infection over the last 3 weeks with poor oral intake from low appetite versus medication side effect versus abnormal blood pressure with reports of BP low of 90 systolic versus high of 200 systolic over 3 days time. Continued to monitor blood pressure regularly on telemetry. Blood pressure checked several times today, and much improved. No more dizziness or lightheadedness. Patient also worked with PT, and it was recommended that patient can return home (2) Fall: Plan: PT/OT evaluation. PT recommends return home. (3) HTN (hypertension): Plan: Fluctuation of blood pressure over the last 3 to 4 days. It is unclear why this is the case. She was taking atenolol 25 which was reduced to 12.5 by her contact lens fitter a while ago. Blood pressure has recently been elevated, possible zoster infection affect? And she was placed on 2 additional agents including Imdur 30 mg daily and enalapril at 20 mg daily. She had hypotension prior to arrival. For now stop Imdur and continue with enalapril per her PCP recommendation. Also will continue atenolol at 25 daily. Discussed with the patient to monitor blood pressure at home. Blood pressure in the hospital much improved. Stopped Imdur. Patient to continue with atenolol and enalapril and follow-up closely with PCP. (4) Herpes zoster: Plan: Rash still present in the left mid abdominal dermatomes. However mostly crusted over. She reports her symptoms are improving. No Valtrex indicated giving timing of infection. Covered rash and placed on isolation precautions while in hospital. (5) CKD (chronic kidney disease) stage 3, GFR 30-59 ml/min: Plan: Chronic with a baseline creatinine around 1.5. She is monitored by nephrology as outpatient. Her creatinine on admission 1.86 reflective of possible dehydration which may be contributing to symptoms above. Current Cr down to 1.3 oral rehydration recommended. (6) Hiatal hernia: Plan: Hiatal hernia found on imaging and she was given an increase Protonix to 40 mg daily. Continue this. Conservative management. (7) Depression: Plan: Chronic, stable. Continue Cymbalta per home regimen. (8) CAD (coronary artery disease): Plan: Chronic, stable. We will hold aspirin and Plavix for now given the recent head injury and reports of dizziness. There is no evidence of intracranial bleed on imaging and she clinically is improved. May restart on discharge. Continue rosuvastatin. DVT prophylaxis-SCDs Full code as discussed with patient and her son on admission Disposition-plan to discharge home with her son. Admission and Anticipated Discharge Date Admission Date: June 06, 2022 Subjective Pt seen in follow up of fall, hypotension, dizziness Currently patient is feeling well, and is eager to go home She says she is no longer dizzy or lightheaded Reports she has been ambulating in the room without any difficulty Also denies any fevers chills chest pain shortness of breath palpitations Patient also seen by PT today, and PT recommends return home, patient had no issues with PT evaluation Discussed with patient's RN, report no issues with blood pressure or dizziness Checked blood pressure more frequently today, and blood pressures been mostly normal Son present at the bedside, and so we had a long discussion about how to monitor blood pressure at home, and close follow-up with PCP. The son and patient feel comfortable with discharge. Son reports that patient has blood pressure cuff at home and she can monitor her blood pressure at home. They understand that they will need close follow-up with PCP and medication regiment may be adjusted depending on her numbers. They plan for the patient to stay with the son for next several days to make sure that patient feels well and prevent any falls. Patient lives alone. Also discussed adequate p.o. intake, and especially fluid intake. Review of Systems Review of Systems: All systems reviewed & are unremarkable except as noted in Subjective Physical Exam Physical Exam: CONSTITUTIONAL: WNWD, generally well-appearing, NAD EYES: EOMI, PERRL, normal conjunctivae, no scleral icterus, + medial periorbital ecchymosis around her right eye ENT: external ear and nose normal, oropharynx clear, MMM NECK: supple RESPIRATORY: clear to auscultation bilaterally, no crackles, rales or wheezes, normal respiratory effort CARDIOVASCULAR: regular rate and rhythm, S1 and 2 heard CHEST: inspection of chest was normal GASTROINTESTINAL: soft, nontender, ND, no guarding MUSCULOSKELETAL: moves extremities SKIN: warm and dry with a large shingles rash (mostly dry and crusted over) along mid abdominal dermatome that extends from mid-back and around to the front. NEURO/PSYCH: alert cooperative and oriented to person, place and time. Euthymic mood, normal speech, moves extremities Results & Data Results & Data ([facility]) Vital Signs (Past 12 Hours) Vital Signs Temp Pulse Pulse Resp BP BP Pulse Ox 06/08/22 07:55 36.5 C 85 18 193/95 H 186/75 H 97 06/08/22 07:50 78 06/08/22 06:44 36.7 C 82 16 177/74 H 97 06/08/22 03:42 36.8 C 81 18 214/98 H 96 06/08/22 01:43 67 06/07/22 23:35 76 18 160/72 H 95 O2 Del Method 06/08/22 07:55 Room Air 06/08/22 07:50 06/08/22 06:44 Room Air 06/08/22 03:42 Room Air 06/08/22 01:43 06/07/22 23:35 Room Air Laboratory Results 06/08/22 06/08/22 06/07/22 Range/Units 07:13 07:13 10:30 WBC 8.36 (4.8-10.8) K/ul RBC 4.30 (3.93-5.22) M/uL Hgb 11.9 L (12.0-16.0) g/dl Hct 36.0 (34.1-44.9) % MCV 83.7 (80.0-100.0) fL MCH 27.7 (25.0-34.0) pg MCHC 33.1 (32.0-36.0) g/dL RDW Std Deviation 49.1 H (36.4-46.3) fL RDW Coeff of Adalid 16.0 H (11.5-14.5) % Plt Count 275 (130-400) K/uL MPV 10.0 (9.4-12.3) fL Sodium 139 (136-145) mmol/L Potassium TNP Chloride 105 (98-107) mmol/L Carbon Dioxide 25 (21-32) mmol/L Anion Gap 9 (3-11) BUN 26 H (6-23) mg/dl Creatinine 1.26 H (0.6-1.2) mg/dl Est Cr Clr Drug Dosing 35.4 ml/min Est GFR ( Amer) 45.9 ml/min Est GFR (Non-Af Amer) 39.6 ml/min BUN/Creatinine Ratio 20.6 H (10-20) Glucose 124 H (70-99(Fasting)) mg/dl Calcium 9.4 (8.5-10.1) mg/dl Phosphorus 2.6 (2.5-4.9) mg/dl Magnesium 1.6 L (1.7-2.4) mg/dl Urine Color Yellow Urine Appearance Clear (Clear) Urine pH 5.5 (4.5-7.5) Ur Specific [place] 1.014 (1.000-1.030) Urine Protein Negative (Negative) Urine Glucose (UA) Negative (Negative) Urine Ketones Negative (Negative) Urine Blood Negative (Negative) Urine Nitrite Negative (Negative) Urine Bilirubin Negative (Negative) Urine Urobilinogen Negative (Negative) Ur Leukocyte Esterase 1+ H (Negative) Urine WBC (Auto) 10-30 H (0-5) /hpf Urine RBC (Auto) 0-4 (0-4) /hpf U Hyaline Cast (Auto) 0 (0-5) /lpf U Epithel Cells (Auto) 20-30 H (0-5) /lpf Urine Bacteria (Auto) Negative (Negative) Medications Administered Current Inpatient Medications Acetaminophen (Acetaminophen 325 Mg Tab) 650 mg PO Q4H PRN PRN Reason: Pain or Fever Stop: 07/06/22 20:46 Last Admin: 06/08/22 03:42 Dose: 650 mg Atenolol (Atenolol 25 Mg Tablet) 25 mg PO DAILY [facility] Stop: 07/07/22 08:59 Last Admin: 06/08/22 08:06 Dose: 25 mg Docusate Sodium (Docusate Sodium 100 Mg Cap) 100 mg PO [facility] Stop: 07/06/22 20:59 Last Admin: 06/07/22 19:36 Dose: 100 mg Duloxetine HCl (Duloxetine Hcl 30 Mg Cap) 30 mg PO DAILY [facility] Stop: 07/07/22 08:59 Last Admin: 06/08/22 08:06 Dose: 30 mg Ezetimibe (Ezetimibe 10 Mg Tablet) 10 mg PO DAILY [facility] Stop: 07/07/22 08:59 Last Admin: 06/08/22 08:06 Dose: 10 mg Enalapril Maleate (Enalapril Maleate 10 Mg Tab) 20 mg PO DAILY [facility] Stop: 07/07/22 08:59 Last Admin: 06/08/22 08:06 Dose: 20 mg Magnesium Sulfate/Dextrose (Magnesium Sulfate / D5w) 1 gm in 100 mls @ 50 mls/hr IV ONE ONE Stop: 06/08/22 10:28 Pantoprazole Sodium (Pantoprazole 40 Mg Tab) 40 mg PO DAILY [facility] Stop: 07/07/22 08:59 Last Admin: 06/08/22 08:06 Dose: 40 mg Polyethylene Glycol (Polyethylene (Miralax) 17 Gm Pack) 17 gm PO DAILY PRN PRN Reason: Constipation Stop: 07/06/22 20:46 Polyethylene Glycol (Polyethylene (Miralax) 17 Gm Pack) 17 gm PO DAILY PRN PRN Reason: Constipation Stop: 07/06/22 20:46 Rosuvastatin Calcium (Rosuvastatin Calcium 20 Mg Tab) 20 mg PO QPM [facility] Stop: 07/06/22 20:59 Last Admin: 06/07/22 19:36 Dose: 20 mg
--- NOTE | 2022-06-08 11:02 | Electrocardiogram Report ---
Test Reason : Blood Pressure : / mmHG Vent. Rate : 082 BPM Atrial Rate : 082 BPM P-R Int : 166 ms QRS Dur : 082 ms QT Int : 400 ms P-R-T Axes : 075 049 -02 degrees QTc Int : 467 ms Normal sinus rhythm Abnormal ECG When compared with ECG of 06-JUN-2022 15:42, (unconfirmed) T wave inversion no longer evident in Anterolateral leads ST depression is worse in the anterolateral leads Confirmed by Luis Angel Meza ([id number]) on 06/08/2022 11:02:10 AM Referred By: REFERRED SELF Confirmed By:Luis Angel Meza
--- NOTE | 2022-06-08 17:43 | Discharge Summary ---
Date of Service June 08, 2022 Admission HPI Per Admitting Provider 82-year-old female presents to the ER with dizziness after multiple falls today. She was reporting dizziness. She was recently diagnosed with herpes zoster on her abdomen, but did not take Valtrex as this was already healing. She is on aspirin and Plavix. She denies any headache, slurred speech, blurred vision, nausea, or vomiting. Prehospital her blood pressure was 90 systolic per EMS and she received 750 mL of saline prior to arrival. Current blood pressure is 146/85. Her creatinine today is elevated to 1.86. Per records review she has a baseline creatinine of 1.5-1.8. She was recently seen in the ER for abdominal pain 4-5 days ago and creatinine at that time was 1.52. A CT scan revealed an incidental breast lesion which follow-up was recommended. GI outpatient follow-up was recommended for a hiatal hernia. Patient reported at that time she did not ever wish to undergo surgery for this. They doubled her pantoprazole from 20 to 40 mg daily. Since Friday ER visit, she has had significant reported fluctuations in blood pressure at home, and has had orthostatic symptoms with changes in a position. This has precipitated her multiple falls over the past 3 days. She saw her PCP this am who put her on Imdur 30mg daily and enalapril 20mg daily which she took both this am. She continues on atenolol and amlodipine from before per her report. +constipation, no respiratory symptoms, no cough or runny nose, reports taking laxatives. +severe back pain and legs ache when she walks-chronic, no changes. Uses Aspercreme, Icy Hot. Takes Tylenol every night because of her back. Can't sleep. +diaphoresis episode this morning, weight loss (+10lb) reported but she hasn't been feeling well or eating. 2.5 weeks she started not eating well--appetite went down. +Left shoulder pain and difficulty moving it since the fall. XR did not reveal a fracture. At the bedside orthostatics are negative and she did not become symptomatic with standing up. 150/74 75 (lying) 146/75 81 (sitting) 132/68 84 (standing) Admission Exam Per Admitting Provider CONSTITUTIONAL: WNWD, vitals as above, generally well-appearing, NAD EYES: EOMI bilaterally, PERRL, normal conjunctivae, no scleral icterus, no funduscopic abnormalitym she has some medial periorbital eccymosis around her right eye from trauma of falling. ENT: external ear and nose normal, oropharynx clear, MMM NECK: trachea midline RESPIRATORY: clear to auscultation bilaterally, no crackles, rales or wheezes, normal respiratory effort CARDIOVASCULAR: regular rate and rhythm, S1 and 2 heard without murmurs, gallops or rubs, no JVD, no peripheral edema CHEST: inspection of chest was normal GASTROINTESTINAL: soft, nontender, ND, no guarding MUSCULOSKELETAL: strength 5/5 throughout except she has very restricted ROM in the right shoulder. SKIN: warm and dry with a large shingles rash along mid abdominal dermatome that extends from mid-back and around to the front. Blisters are crusting over and there is still significant redness. NEUROLOGIC: CN 2-12 grossly intact, no sensory deficit, normal cognition, normal speech, no tremor PSYCHIATRIC: alert cooperative and oriented to person, place and time. Euthymic mood, makes good eye contact, language grossly intact, recent and remote memory grossly intact. Principal Diagnosis Fall hypotension Discharge Exam CONSTITUTIONAL: WNWD, generally well-appearing, NAD EYES: EOMI, PERRL, normal conjunctivae, no scleral icterus, + medial periorbital ecchymosis around her right eye ENT: external ear and nose normal, oropharynx clear, MMM NECK: supple RESPIRATORY: clear to auscultation bilaterally, no crackles, rales or wheezes, normal respiratory effort CARDIOVASCULAR: regular rate and rhythm, S1 and 2 heard CHEST: inspection of chest was normal GASTROINTESTINAL: soft, nontender, ND, no guarding MUSCULOSKELETAL: moves extremities SKIN: warm and dry with a large shingles rash (mostly dry and crusted over) along mid abdominal dermatome that extends from mid-back and around to the front. NEURO/PSYCH: alert cooperative and oriented to person, place and time. Euthymic mood, normal speech, moves extremities Discharge Data Allergies Allergy/AdvReac Type Severity Reaction Status Date / Time adhesive tape Allergy rash/itchy Verified 06/06/22 16:52 latex Allergy rash/itchy Verified 06/06/22 16:52 Consultations 06/06/22 17:02 ED Decision to Admit Stat Ordered Studies 06/06/22 15:45 CT cervical spine wo con Stat FINDINGS: No acute fractures or subluxations are identified. Degenerative changes are seen in the visualized spine. The alignment is normal. Soft tissues are unremarkable. IMPRESSION: Degenerative changes without evidence of acute bony injury. CT head/brain wo con Stat Findings: A few partially opacified right ethmoid air cells. The calvarium and skull base are intact. The ventricles and sulci are within normal limits. There is no mass, hematoma, midline shift, or acute infarct. The mastoid air cells are clear. Impression: No acute intracranial abnormality. CT orbit BI wo con Stat FINDINGS: The globes are normal and symmetric, without proptosis, obvious disruption or lens dislocation. There is no orbital radiopaque foreign body. The orbital josue are intact. Retrobulbar fat is normal, without hematoma. Extraocular muscles are normal and symmetric. Optic nerve sheath complexes are normal in course and caliber. The visualized osseous structures appear intact. Soft tissue swelling is seen about the right orbit. IMPRESSION: Soft tissue swelling without evidence of underlying bony abnormality. Hospital Course (1) Lightheadedness: Lightheadedness may be precipitated by ongoing herpes zoster infection over the last 3 weeks with poor oral intake from low appetite versus medication side effect versus abnormal blood pressure with reports of BP low of 90 systolic versus high of 200 systolic over 3 days time. Continued to monitor blood pressure regularly on telemetry. Blood pressure checked several times today, and much improved. No more dizziness or lightheadedness. Patient also worked with PT, and it was recommended that patient can return home (2) Fall: PT/OT evaluation. PT recommends return home. (3) HTN (hypertension): Fluctuation of blood pressure over the last 3 to 4 days. It is unclear why this is the case. She was taking atenolol 25 which was reduced to 12.5 by her polysomnograph tech a while ago. Blood pressure has recently been elevated, possible zoster infection affect? And she was placed on 2 additional agents including Imdur 30 mg daily and enalapril at 20 mg daily. She had hypotension prior to arrival. For now stop Imdur and continue with enalapril per her PCP recommendation. Also will continue atenolol at 25 daily. Discussed with the patient to monitor blood pressure at home. Blood pressure in the hospital much improved. Stopped Imdur. Patient to continue with atenolol and enalapril and follow-up closely with PCP. (4) Herpes zoster: Rash still present in the left mid abdominal dermatomes. However mostly crusted over. She reports her symptoms are improving. No Valtrex indicated giving timing of infection. Covered rash and placed on isolation precautions while in hospital. (5) CKD (chronic kidney disease) stage 3, GFR 30-59 ml/min: Chronic with a baseline creatinine around 1.5. She is monitored by nephrology as outpatient. Her creatinine on admission 1.86 reflective of possible dehydration which may be contributing to symptoms above. Current Cr down to 1.3 oral rehydration recommended. (6) Hiatal hernia: Hiatal hernia found on imaging and she was given an increase Protonix to 40 mg daily. Continue this. Conservative management. (7) Depression: Chronic, stable. Continue Cymbalta per home regimen. (8) CAD (coronary artery disease): Chronic, stable. Held aspirin and Plavix for given the recent head injury and reports of dizziness. There is no evidence of intracranial bleed on imaging and she clinically is improved. May restart on discharge. Continue rosuvastatin. Total Time Total Time Spent Total Time Spent (In Minutes): 40 Discharge Plan Discharge Items Patient Disposition: Home - Self-Care Reason For Visit: DIZZINESS, HYPOTENSION Discharge Diagnosis: Fall hypotension Activity: Per Instructions section Non-emergency contact: Primary Care Provider Call non-emergency contact if: you have any medication questions and your symptoms worsen Follow-up/Referrals: Jasson Denney MD [Primary Care Provider] - Diet: Heart Healthy Addtl Attending Provider Instructions: Follow-up with your primary care doctor within 1 week. Monitor your blood pressure at home and write down your numbers. Discuss your numbers with your primary care provider at your next appointment. For now, do not take Imdur (isosorbide mononitrate). Discuss further with your primary care doctor or polysomnograph tech, what blood pressure medications you should be on. Take atenolol 25 mg daily and enalapril 20 mg daily. Make sure you are eating well, and drinking plenty of fluids at home as well. Pending Studies at Discharge: No Stand-Alone Forms: [facility] [place], Smoking Cessation Medications and DC Order Prescriptions: Continued acetaminophen [Tylenol] 325 mg Tablet 650 mg PO Q6 PRN (Reason: Pain) enalapril maleate 10 mg tablet 20 mg PO DAILY polyethylene glycol 3350 [Miralax] 17 gram Powder In Packet 17 g PO DAILY PRN (Reason: Constipation) atenolol 25 mg tablet 25 mg PO DAILY clopidogrel 75 mg tablet 75 mg PO DAILY aspirin 81 mg Tablet,Delayed Release (Dr/Ec) 81 mg PO Q OTHER DAY pantoprazole 20 mg tablet,delayed release (DR/EC) 40 mg PO DAILY nitroglycerin [Nitrostat] 0.4 mg Tablet, Sublingual 0.4 mg sublingual DIRECTED PRN (Reason: Chest Pain) docusate sodium 100 mg Capsule 100 mg PO HS albuterol sulfate [Ventolin HFA] 90 mcg/actuation Hfa Aerosol Inhaler 2 puff INHALATION Q4 PRN (Reason: Shortness Of Breath Or Wheezing) [id number] Tablet 1 tab PO DAILY ezetimibe 10 mg tablet 10 mg PO DAILY rosuvastatin 20 mg tablet 20 mg PO QPM duloxetine 30 mg capsule,delayed release(DR/EC) 30 mg PO DAILY Oscal 500/200 D3 1 tab PO DAILY Discontinued isosorbide mononitrate 30 mg tablet extended release 24 hr 30 mg PO DAILY Discharge Orders: Discharge Order (Routine); Ordered 06/08/22 Ordered By: Trevon Stahl Admission Data Admit Date/Time: 06/06/22 17:39 Attending Provider: Trevon Stahl Admit Provider: Nita Hurt Primary Care Provider: Jasson Denney Other Providers: Nita Hurt Other Interventions: Discharge Summary Assessment (RN) Last Done: 06/08/22 16:20
== END 2022-06-08 16:41 | disposition home or self-care (01) | DRG 866 ==
LOC: ED 15:37 → SUATTDRO 17:39 → EDINP 17:39 → 2W 23:00
DX: Z79.02 Long term (current) use of antithrombotics/antiplatelets; K44.9 Diaphragmatic hernia without obstruction or gangrene; W19.XXXA Unspecified fall, initial encounter; Z79.82 Long term (current) use of aspirin; S05.11XA Contusion of eyeball and orbital tissues, right eye, initial encounter; Z79.1 Long term (current) use of non-steroidal anti-inflammatories (NSAID); Z95.5 Presence of coronary angioplasty implant and graft; N18.30 Chronic kidney disease, stage 3 unspecified; E86.0 Dehydration; I95.89 Other hypotension; F32.9 Major depressive disorder, single episode, unspecified; I25.10 Atherosclerotic heart disease of native coronary artery without angina pectoris; B02.8 Zoster with other complications; Z91.040 Latex allergy status; K59.00 Constipation, unspecified; Z91.048 Other nonmedicinal substance allergy status; M25.512 Pain in left shoulder; R29.6 Repeated falls; I12.9 Hypertensive chronic kidney disease with stage 1 through stage 4 chronic kidney disease, or unspecified chronic kidney disease; Z79.899 Other long term (current) drug therapy

== ENCOUNTER 2023-06-24 05:22 | Inpatient (IN) ==
--- OUTSIDE RECORDS SUMMARY | 2023-06-24 05:39 | External Medical Summary | Summary of Care ---
Author Name Unknown Organization [facility] Address [address] [address] Phone [phone] Care Team Providers Care Furnace Attendant Name Role Phone Jasson Denney MD Primary Care Provide r Reason for Visit * Reason Comments Suture Removal Pt presents today fo r 3 week recheck s/p Mohs surgery on L dorsal hand. Pt has no concerns at this time Encounter Details Date Type Department Care Team (Late st Contact Info) Description 04/28/2023 11:30 AM EST Office Visit [facility] [address] [place] [address] Walter Sr MD [address] [place] [address] Visit for wound check* Allergies Active Allergy Reactions Criticality Noted Date Comments Adhesive Tape 04/11/2006 Latex 06/06/2022 Other reaction(s): rash/itchy documented as of this encounter (statuses as of 04/28/2023) Medications Medication Sig Dispensed Refills Start Date End Date Status OSCAL 500/200 D-3 500-200 MG-UNIT PO TABS Take 1 Tablet by mouth in the morning. 0 08/11/2007 Active CENTRUM SILVER PO TABS one a day 0 08/11/2007 Active Polyethylene Glycol 3350 17 GM/SCOOP Oral Powder Take 17 g by mouth daily as needed for Constipation. 0 Active cyclobenzaprine (FLEXERIL) 10 MG TabletIndications:S pasm of back muscles Take 1 Tab by mouth 3 times a day as needed for Muscle spasms. 30 Tab 1 09/30/2017 Active VENTOLIN HFA 108 (90 Base) MCG/ACT inhaler INHALE 2 PUFFS BY MOUTH EVERY 4 HOURS NEEDED FOR COUGH, SHORTNESS OF BREATH OR WHEEZING. 36 g 1 03/25/2018 Active Acetaminophen 325 MG Oral Tablet Take 2 Tablets by mouth every 6 hours as needed for Pain. 0 Active docusate sodium (COLACE) 100 MG Capsule Take 1 Capsule by mouth every night at bedtime. 0 07/12/2019 Active Phenylephrine-[place] Butter 0.25-88.44 % Rectal Suppository Administer into the rectum as needed for Hemorrhoids. 0 Active Nitroglycerin 0.4 MG Sublingual Tablet Sublingual (Nitrostat) Place 1 Tablet under the tongue as needed. 0 11/10/2020 Active Atenolol 25 MG Oral Tablet (Tenormin)Indicatio ns:HTN, goal below 140/90 TAKE 1 TABLET BY MOUTH DAILY IN AM 90 Tablet 2 06/06/2022 Active Rosuvastatin Calcium 20 MG Oral Tablet (Crestor)Indication s:Dyslipidemia, goal LDL below 100 TAKE 1 TABLET BY MOUTH DAILY 90 Tablet 3 07/22/2022 Active Isosorbide Mononitrate ER 30 MG Oral Tablet Extended Release 24 Hour (Imdur)Indications: Coronary artery disease involving confederated coos coronary artery of confederated coos heart without angina pectoris TAKE 1 TABLET BY MOUTH EVERY DAY IN THE MORNING 90 Tablet 1 11/26/2022 Active Ezetimibe 10 MG Oral Tablet (Zetia)Indications: Dyslipidemia, goal to be determined TAKE 1 TABLET BY MOUTH DAILY 90 Tablet 1 12/27/2022 Active Enalapril Maleate 10 MG Oral Tablet (Vasotec) TAKE 2 TABLETS BY MOUTH EVERY DAY 180 Tablet 1 01/20/2023 Active DULoxetine HCl 30 MG Oral Capsule Delayed Release Particles (Cymbalta)Indicatio ns:Moderate episode of recurrent major depressive disorder (HCC),Chronic bilateral low back pain without sciatica TAKE 1 CAPSULE BY MOUTH EVERY DAY 90 Capsule 1 01/31/2023 Active Pantoprazole Sodium 20 MG Oral Tablet Delayed Release (Protonix) TAKE 1 TABLET BY MOUTH DAILY 1/2 HOUR BEFORE THE FIRST MEAL OF THE DAY. DO NOT CRUSH, SPLIT OR CHEW THE TABLET 90 Tablet 1 2023 Active Gabapentin 100 MG Oral Capsule (Neurontin)Indicati ons:Chronic bilateral low back pain with bilateral sciatica Take 1 Capsule by mouth in the morning and 1 Capsule before bedtime. 180 Capsule 1 03/20/2023 Active Clopidogrel Bisulfate 75 MG Oral Tablet (pLAVix)Indications :HTN, goal below 140/90 TAKE 1 TABLET BY MOUTH DAILY 90 Tablet 1 04/02/2023 Active documented as of this encounter (statuses as of 04/28/2023) Active Problems Problem Noted Date Diagnosed Date Encounter for antineoplastic chemotherapy 2022 Malignant neoplasm of left b reast in female, estrogen receptor positive 06/28/2022 Postherpetic neuralgia 06/28/2022 Hiatal hernia 08/07/2021 Schatzki's ring 08/07/2021 S/P angioplasty with stent 11/15/2020 Coronary artery disease invo lving confederated coos heart without angina pectoris 11/15/2020 Cardiac murmur 11/15/2020 Chronic kidney disease, stage 3b 10/24/2020 Overview: Per CKD protocol Hypertensive kidney disease with stage 3b chronic kidney disease 04/24/2020 Overview: Per CKD protocol S/P AAA repair 10/21/2019 Prediabetes 05/24/2019 Overview: Per Prediabetes protocol Moderate episode of recurrent major depressive d isorder 07/14/2018 COPD, mild 12/30/2017 Postmenopausal atrophic vaginitis 03/03/2017 Hx of nonmelanoma skin cancer 10/28/2016 Overview: 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 HTN, goal below 130/80 04/21/2009 Overview: Modified per HTN Taxonomy. Chronic ischemic heart disease Overview: with 2 stents documented as of this encounter (statuses as of 04/28/2023) Resolved Problems Problem Noted Date Diagnosed Date Resolved Date AAA (abdominal aortic aneurysm) 09/01/2019 04/25/2020 Overview: S/p repair Hypertensive kidney disease with chronic kidney disease stage III 01/07/2019 04/27/2020 Overview: Per CKD protocol Kidney disease, chronic, sta ge III (GFR 30-59 ml/min) 11/23/2018 01/28/2019 Overview: Per CKD protocol Major depressive disorder Overview: ICD-10 update of inactive term Dyslipidemia, goal to be determined 05/25/2009 Overview: Per Lipid Taxonomy. HTN, goal below 140/90 04/21 Overview: Modified per HTN Taxonomy. Solitary cyst of breast 12/14 Overview: Breast Cyst Impaired glucose tolerance 0 07/19/2019 documented as of this encounter (statuses as of 04/28/2023) Immunizations Name Administration Dates Next Due COVID-19 mRNA, LNP-s, No Pre serve, 2-Dose Series ([employer]) 08/11/2020,07/21/2020 COVID-19, LNP-s, No Preserve , Dusty-sucrose, Ages 12+ (Pfizer) 02/05/2022,08/07/2021 Covid-19, Mrna, Lnp-s, Pf, B ivalent, 30 Mcg, IM, 12 yrs and above (Pfizer) 06/11/2022 Pneumococcal Conjugate Vacc, 13 Valent (Prevnar) 08/19/2016 Pneumococcal Polysaccharide PPV23 (Pneumovax) 07/18/2015,04/11/2006 SEASONAL INFLUENZA, PF, 6 M & Above, IM , (FLULAVAL or FLUZONE) 03/18/2018 Season Influenza, Quad, PF, Adjuvanted, 65+ Yrs, IM (FLUAD) 04/06/2020 Seasonal Influenza Virus Vac cine, Unspecified Formulation 04/06/2020,03/25/2019,03/18/2018,03/03,03/22/2016,04/09/2007,04/11/2006 Seasonal Influenza, Quadriva lent Hd (Fluzone Hd) 03/20/2023,04/04/2022,03/19/2021 Seasonal Influenza, Quadriva lent, No Preserve, IM 03/03/2017,03/22/2016 Seasonal Influenza, Split, I IV3, With Preserve, Inj 03/28/2014,04/09/2007,04/11/2006 Seasonal Influenza, Trivalen t, Adjuvanted, 65+ yrs 03/25/2019 documented as of this encounter Social History Tobacco Use Types Packs/Day Years Used Date Smoking Tobacco: Former Cigarettes 0.5 40 Smokeless Tobacco: Never Alcohol Use Standard Drinks/Week Comments Yes 0 (1 standard drink = 0.6 oz pur e alcohol) a glass or wine on holidays PHQ-2 Answer Date Recorded PHQ Adult Total Score 0 08/07/2021 Hunger Vital Sign Answer Date Recorded Within the past 12 months, y ou worried that your food would run out before you got the money to buy more. Never true 04/25/20 20 Within the past 12 months, t he food you bought just didn't last and you didn't have money to get more. Never true 04/25/2020 Sex and Gender Information Value Date Recorded Sex Assigned at Not on file Gender Identity Not on file Sexual Orientation Not on file Job Start Date Occupation Industry Not on file Not on file Not on file documented as of this encounter Progress Notes * Walter Sr MD - 04/28/2023 11:57 AM EST Patient returns 3 weeks after Mohs for recheck on healing. Denies drainage, pain, infection, difficulty healing. Otherwise is well. Exam: Limited examination preformed today to left hand. Well healed surgical site.. Plan: Vicryl suture removed No further wound care needed Chase Sr MD documented in this encounter Nursing Notes * Laquita Hein LPN - 04/28/2023 11:25 AM EST Chief Complaint Patient presents with Suture Removal Pt presents today for 3 week recheck s/p Mohs surgery on L dorsal hand. Pt has no concerns at this time documented in this encounter Plan of Treatment Upcoming Encounters Date Type Department Care Team (Late st Contact Info) Description 05/13/2023 2:00 PM EST Office Visit Nephrology [address] [place] [address] Valery Urena PA-C [address] [place] [address] 06/06/2023 11:30 AM EST Office Visit Cardiology, [facility] [address] [facility] [place] [address] Guillermo Mejia DO [address] [facility] [place] [address] 06/12/2023 1:00 PM EST Imaging Radiology [facility] [address] [facility] [place] [address] 06/12/2023 1:30 PM EST Imaging Radiology [facility] [address] [facility] [place] [address] 07/07/2023 11:00 AM EST Laboratory Laboratory [address] [place] [phone] [place] [address] 07/14/2023 2:30 PM EST Office Visit Hematology/Oncology [employer] [address] [place] [address] Gay Lu MD [address] [place] [address] 08/04/2023 1:00 PM EST Imaging Radiology [facility] [place] [address] [place] [address] 08/12/2023 1:40 PM EST Office Visit Family Medicine [address] [place] [phone] Jasson Denney MD [address] [place] [address] [place] [address] 04/05/2024 1:20 PM EDT Office Visit Dermatology [address] [place] [address] Melanie Frank PA-C [address] [place] [address] [place] [phone] Health Maintenance Due Date Last Done Comments Alpha-1 Antitrypsin 1958 DTaP,Tdap,and Td Vaccines (1 - Tdap) 1959 Zoster Vaccines (1 of 2) 1990 *COPD SEVERITY VERIFIED BY PFT 01/02/2018 Depression Screening 08/07/2022 08/07/2021 COVID-19 Vaccine ( season) 2023 06/11/2022, 02/05/2022, 08/07/2021, Additional history exists Albumin/Creatinine Ratio 07/25/2023 023, 08/07/2021, 01/12/2021, Additional history exists CKD PHOS USE SMARTSET 73342 07/25/2023 02/02/2023, 01/10/2022, 01/11/2021, Additional history exists O2 ASSESSMENT COMPLETED IN PAST YEAR FOR COPD 08/15/2023 08/14/2022 GFR 09/19/2023 03/20/2023, 11/14, 11/04/2022, Additional history exists CKD HGB USE SMARTSET 08332 03/20/202403/20, 03/20/2023, 11/25/2022, Additional history exists HbA1c 03/20/2024 03/20/2023, 100 10/2021, 11/01/2020, Additional history exists DXA Scan 05/31/2026 05/31/2019, 12/09/2006 Pneumococcal Vaccine: 65+ Years Completed 08/19/2016, 07/18/2015, 04/11/2006 Influenza Vaccine (FLU shot) Completed 10/2022, 04/04/2022, 03/19/2021, Additional history exists GARDASIL-HPV IMMUNIZATION SERIES Aged Out No longer eligible based on patient's age to complete this topic Hepatitis B Aged Out No longer eligi ble based on patient's age to complete this topic MENINGOCOCCAL (MENACTRA/MENVEO) Aged Out No longer eligible based on patient's age to complete this topic documented as of this encounter Medical Devices Implanted Type Area Front Desk Clerk Device Identifier Shelf Expiration Date Model / Serial / Lot Reyno Excluder Aaa [employer]opro[employer] System-07/07/2019 Implanted:07/07/19 20 (Quantity not on file) Graft Description:Multiple implant s from system on same day [id number] Cordis Bx Velocity Cardiac Stent-06/02/2002 Implanted:06/02/20 02 (Quantity not on file) Stent CORDIS LEXA BX VELOCITY [id number] / / [id number] Cordis Bx Velocity Cardiac Stent-01/03/2003 Implanted:01/04/20 03 (Quantity not on file) Stent CORDIS LEXA VELOCITY [id number] / / [id number] documented as of this encounter Visit Diagnoses Diagnosis Visit for wound check- Primary Encounter for other specified aftercare documented in this encounter Advance Directives Latest Code Status on File Code Status Date Activated Date Inactivated Comments Full Code 08/14/2022 7:04 AM 08/14/2022 5:34 PM This or kt reflects the patients wishes and were consensually agreed upon. Question Answer Comments Discussion of Advance Directives occurred with: Patient Does the patient have a Living Will? No Does the patient have Health Care Power of Rn Hedis? No Healthcare Agents on File Name Relationship Healthcare Agent Relationship Communication Gus Roesnbaum Jr. Adult Child Health Care R epresentative (appointed verbally by patient or by statute hierarchy) Care Teams Furnace Attendant Relationship Specialty Start Date End Date Jasson Denney MD [address] [place] [address] [place] [phone] PCP - General Family Medicine 03/22/16 documented as of this encounter
--- OUTSIDE RECORDS SUMMARY | 2023-06-24 05:39 | External Medical Summary | Summary of Care ---
Author Name Unknown Organization [facility] Address [address] [facility] [place] [address] Phone [phone] Care Team Providers Care Oracle Developer Name Role Phone Jasson Denney MD Primary Care Provide r Reason for Visit * Reason Comments Follow Up Encounter Details Date Type Department Care Team (Late st Contact Info) Description 06/06/2023 11:30 AM EST Office Visit Cardiology, [facility] [address] [place] [address] Guillermo Mejia DO [address] [place] [address] S/P angioplasty with stent*; Chronic ischemic heart disease; S/P AAA repair Allergies Active Allergy Reactions Criticality Noted Date Comments Adhesive Tape 04/11/2006 Latex 06/06/2022 Other reaction(s): rash/itchy documented as of this encounter (statuses as of 06/06/2023) Medications Medication Sig Dispensed Refills Start Date End Date Status OSCAL 500/200 D-3 500-200 MG-UNIT PO TABS Take 1 Tablet by mouth in the morning. 0 08/11/2007 Active CENTRUM SILVER PO TABS one a day 0 08/11/2007 Active Polyethylene Glycol 3350 17 GM/SCOOP Oral Powder Take 17 g by mouth daily as needed for Constipation. 0 Active cyclobenzaprine (FLEXERIL) 10 MG TabletIndications: Spasm of back muscles Take 1 Tab by [...] every night at bedtime. 0 07/12/2019 Active Phenylephrine-Parvin a Butter 0.25-88.44 % Rectal Suppository Administer into the rectum as needed for Hemorrhoids. 0 Active Nitroglycerin 0.4 MG Sublingual Tablet Sublingual (Nitrostat) Place 1 Tablet under the tongue as needed. 0 11/10/2020 Active Rosuvastatin Calcium 20 MG Oral Tablet (Crestor)Indicatio ns:Dyslipidemia, goal LDL below 100 TAKE 1 TABLET BY MOUTH DAILY 90 Tablet 3 07/22/2022 Active Ezetimibe 10 MG Oral Tablet (Zetia)Indications :Dyslipidemia, goal to be determined TAKE 1 TABLET BY MOUTH DAILY 90 Tablet 1 12/27/2022 Active Enalapril Maleate 10 MG Oral Tablet (Vasotec) TAKE 2 TABLETS BY MOUTH EVERY DAY 180 Tablet 1 01/20/2023 Active DULoxetine HCl 30 MG Oral Capsule Delayed Release Particles (Cymbalta)Indicati ons:Moderate episode of recurrent major depressive disorder (HCC),Chronic [...] 2023 Active Gabapentin 100 MG Oral Capsule (Neurontin)Indicat ions:Chronic bilateral low back pain with bilateral sciatica Take 1 Capsule by mouth in the morning and 1 Capsule before bedtime. 180 Capsule 1 03/20/2023 Active Additional Information Patient not taking.Reported on 06/06/2023 Clopidogrel Bisulfate 75 MG Oral Tablet (pLAVix)Indication s:HTN, goal below 140/90 TAKE 1 TABLET BY MOUTH DAILY 90 Tablet 1 04/02/2023 Active Isosorbide Mononitrate ER 30 MG Oral Tablet Extended Release 24 Hour (Imdur)Indications :Coronary artery disease involving [place]ene coronary artery of [place] heart without angina pectoris TAKE 1 TABLET BY MOUTH EVERY DAY IN THE MORNING 90 Tablet 1 05/30/2023 Active Atenolol 25 MG Oral Tablet (Tenormin)Indicati ons:HTN, goal below 140/90 TAKE 1 TABLET BY MOUTH DAILY IN THE MORNING 90 Tablet 1 05/30/2023 Active documented as of this encounter (statuses as of 06/06/2023) Active Problems Problem Noted Date Diagnosed Date Encounter for antineoplastic chemotherapy 2022 Malignant neoplasm of left b reast in female, estrogen receptor positive 06/28/2022 Postherpetic neuralgia 06/28/2022 Hiatal hernia 08/07/2021 Schatzki's ring 08/07/2021 S/P angioplasty with stent 11/15/2020 Coronary artery disease invo lving [place] heart without angina pectoris 11/15/2020 Cardiac murmur [...] as of this encounter (statuses as of 06/06/2023) Resolved Problems Problem Noted Date Diagnosed Date [...] as of this encounter (statuses as of 06/06/2023) Immunizations Name Administration Dates Next Due COVID-19 mRNA, LNP-s, No Pre serve, 2-Dose Series (BenchPrep) 08/11/2020,07/21/2020 COVID-19, LNP-s, No Preserve , Dusty-sucrose, Ages 12+ (BenchPrep) 02/05/2022,08/07/2021 COVID-19, MRNA-LNP, 23-24, P F, 30 MCG/0.3 mL, 12 YRS AND ABOVE, IM (Spotplex-Comirnaty) 05/13/2023 Covid-19, Mrna, Lnp-s, Pf, B ivalent, 30 Mcg, IM, 12 yrs and above (BenchPrep) 06/11/2022 Pneumococcal Conjugate Vacc, 13 Valent (Prevnar) 08/19/2016 Pneumococcal Polysaccharide PPV23 (Pneumovax) 07/18/2015,04/11/2006 Season Influenza, Quad, PF, Adjuvanted, 65+ Yrs, IM (FLUAD) 04/06/2020 Seasonal Influenza Virus Vac cine, Unspecified Formulation 04/06/2020,03/25/2019,03/18/2018,03/03,03/22/2016,04/09/2007,04/11/2006 Seasonal Influenza, PF, 6 M & above, IM , (FluLaval or Fluzone) 03/18/2018 Seasonal Influenza, Quadriva lent Hd (Fluzone Hd) [...] the money to buy more. Never true 06/11/20 22 Within the past 12 months, t he food you bought just didn't last and you didn't have money to get more. Never true 06/11/2022 Sex and Gender Information Value Date Recorded Sex Assigned at Not on file Gender Identity Not on file Sexual Orientation Not on file Job Start Date Occupation Industry Not on file Not on file Not on file documented as of this encounter Last Filed Vital Signs Vital Sign Reading Time Taken Comments Blood Pressure 126/64 06/06/2023 11:29 AM EST Pulse 66 06/06/2023 11:29 AM EST Temperature - - Respiratory Rate - - Oxygen Saturation - - Inhaled Oxygen Concentration - - Weight 73.9 kg (163 lb) 06/06/2023 11:29 AM EST Height - - Body Mass Index 26.31 03/20/2023 11:24 AM EDT documented in this encounter Progress Notes * Guillermo Mejia, DO - 06/06/2023 12:14 PM EST Cardiology Outpatient Follow-up Afua Rosenbaum is a 83 year old female who is seen for follow-up of coronary artery disease. HPI: This is an 83-year-old female who has a history of coronary stents placed in the LAD in 2001 and right coronary artery in 2002. In 2019 she had abdominal aortic aneurysm rupture was taken emergently to the OR received an endovascular stent. She had a prolonged hospital stay but was eventually able to recover. She was a dedicated smoker until that event and then she stopped. More recently, the olvin ent has been treated for breast cancer and underwent surgery and has completed 4 rounds of chemotherapy. She has an upcoming follow-up appointment with her oncologist in the near future. The patient has no ongoing cardiac complaints today. Past Medical History: Diagnosis Date Chronic ischemic heart disease 2001,2002 with 2 stents Depressive disorder, not elsewhere classified Dyslipidemia, goal to be determined HTN, goal below 140/90 Impaired glucose tolerance Other constipation Solitary cyst of breast Breast Cyst Patient Active Problem List Diagnosis Code Chronic ischemic heart disease I25.9 HTN, goal below 130/80 I10 Dyslipidemia, goal LDL below 70 E78.5 Hemorrhoids, external without complications K64.4 Venous insufficiency I87.2 History of tobacco use Z87.891 Hx of nonmelanoma skin cancer Z85.828 Postmenopausal atrophic vaginitis N95.2 COPD, mild (HCC) J44.9 Moderate episode of recurrent major depressive disorder (HCC) F33.1 Prediabetes R73.03 S/P AAA repair Z98.890, Z86.79 Hypertensive kidney disease with stage 3b chronic kidney disease I12.9, N18.32 Chronic kidney disease, stage 3b (HCC) N18.32 S/P angioplasty with stent Z95.820 Coronary artery disease involving [place] heart without angina pectoris I25.10 Cardiac murmur R01.1 Hiatal hernia K44.9 Schatzki's ring K22.2 Malignant neoplasm of left breast in female, estrogen receptor positive C50.912, Z17.0 Postherpetic neuralgia B02.29 Encounter for antineoplastic chemotherapy Z51.11 Past Surgical History: Procedure Laterality Date BX LYMPH NODE DEEP AXIL Left 08/14/2022 BIOPSY LYMPH NODE DEEP AXILLARY OPEN performed by Yasmine Austin MD at OR [facility] COLONOSCOPY 07/17/2008 patient states she had a polyp removed and internal hemorrhoids COLONOSCOPY, DIAGNOSTIC (RECTUM) 07/11/2015 hyperplastic polyp, diverticulosis/[facility] EGD, FLEXIBLE, DIAGNOSTIC 07/11/2015 reflux esophagitis, Schatzki ring, HH/[facility] IDENTIFY SENTINEL NODE, RADIOACTIVE TRACER Left 08/14/2022 INJECTION PROCEDURE FOR IDENTIFICATION SENTINEL NODE performed by Yasmine Austin MD at OR [facility] INSERTION OF LENS PROSTHESIS 05/03/2015 right INSERTION OF LENS PROSTHESIS 04/19/2015 left MASTECTOMY, SIMPLE, COMPLETE Left 08/14/2022 MASTECTOMY SIMPLE COMPLETE performed by Yasmine Austin MD at [facility] MISCELLANEOUS ORDER (HS ONLY) May 2002 and December 2002 heart stents TOTAL ABD HYSTERECTOMY W/WO REMOVAL OF TUBE(S) US GUIDED BREAST BIOPSY BILATERAL around 2010 benign US GUIDED BREAST BIOPSY LEFT Left 06/20/2022 VENOUS PTCA-TECH ONLY Family History Problem Relation Age of Onset Other (Cancer liver) Grandfather (Maternal) Breast Cancer Niece Cancer Niece Social History Tobacco Use Smoking status: Former Packs/day: 0.50 Years: 40.00 Additional pack years: 0.00 Total pack years: 20.00 Types: Cigarettes Smokeless tobacco: Never Vaping Use Vaping Use: Never used Substance Use Topics Alcohol use: Yes Comment: a glass or wine on holidays Drug use: No Review of patient's allergies indicates: Allergen Reactions Adhesive Tape Latex Other reaction(s): rash/itchy Current Outpatient Medications Medication Sig Dispense Refill OSCAL 500/200 D-3 500-200 MG-UNIT PO TABS Take 1 Tablet by mouth in the morning. 0 CENTRUM SILVER PO TABS one a day 0 Polyethylene Glycol 3350 17 GM/SCOOP Oral Powder Take 17 g by mouth daily as needed for Constipation. Acetaminophen 325 MG Oral Tablet Take 2 Tablets by mouth every 6 hours as needed for Pain. docusate sodium (COLACE) 100 MG Capsule Take 1 Capsule by mouth every night at bedtime. Rosuvastatin Calcium 20 MG Oral Tablet (Crestor) TAKE 1 TABLET BY MOUTH DAILY 90 Tablet 3 Ezetimibe 10 MG Oral Tablet (Zetia) TAKE 1 TABLET BY MOUTH DAILY 90 Tablet 1 Enalapril Maleate 10 MG Oral Tablet (Vasotec) TAKE 2 TABLETS BY MOUTH EVERY DAY 180 Tablet 1 DULoxetine HCl 30 MG Oral Capsule Delayed Release Particles (Cymbalta) TAKE 1 CAPSULE BY MOUTH EVERY DAY 90 Capsule 1 Pantoprazole Sodium 20 MG Oral Tablet Delayed Release (Protonix) TAKE 1 TABLET BY MOUTH DAILY 1/2 HOUR BEFORE THE FIRST MEAL OF THE DAY. DO NOT CRUSH, SPLIT OR CHEW THE TABLET 90 Tablet 1 Clopidogrel Bisulfate 75 MG Oral Tablet (pLAVix) TAKE 1 TABLET BY MOUTH DAILY 90 Tablet 1 Isosorbide Mononitrate ER 30 MG Oral Tablet Extended Release 24 Hour (Imdur) TAKE 1 TABLET BY MOUTHEVERY DAY IN THE MORNING 90 Tablet 1 Atenolol 25 MG Oral Tablet (Tenormin) TAKE 1 TABLET BY MOUTH DAILY IN THE MORNING 90 Tablet 1 cyclobenzaprine (FLEXERIL) 10 MG Tablet Take 1 Tab by mouth 3 times a day as needed for Muscle spasms. 30 Tab 1 VENTOLIN HFA 108 (90 Base) MCG/ACT inhaler INHALE 2 PUFFS BY MOUTH EVERY 4 HOURS NEEDED FOR COUGH, SHORTNESS OF BREATH OR WHEEZING. 36 g 1 Phenylephrine-[place]th[place] Butter 0.25-88.44 % Rectal Suppository Administer into the rectum as needed forHemorrhoids. (Patient not taking: Reported on 06/06/2023) Nitroglycerin 0.4 MG Sublingual Tablet Sublingual (Nitrostat) Place 1 Tablet under the tongue as needed. (Patient not taking: Reported on 06/06/2023) Gabapentin 100 MG Oral Capsule (Neurontin) Take 1 Capsule by mouth in the morning and 1 Capsule before bedtime. (Patient not taking: Reported on 06/06/2023) 180 Capsule 1 No current facility-administered medications for this visit. ROS: Review of Systems: See HPI for pertinent positives. All other review of systems is negative. PHYSICAL EXAMINATION BP 126/64 | Pulse 66 | Wt 73.9 kg (163 lb) | BMI 26.31 kg/m | BSA 1.85 m Body mass index is 26.31 kg/m. General: no acute distress and stated age Head: normocephalic, no masses, lesions, tenderness or abnormalities Eyes: conjunctiva are pink and non-injected, sclera clear Neck: supple, no adenopathy, no bruits, normal jugular venous pulse, no hepatojugular reflux Chest: normal shape and normal respiratory effort Lungs: clear to auscultation and percussion Cardiac Exam: - regular rate & rhythm, no murmurs gallops or rubs - normal S1, normal S2 Pulses: 2(+) throughout Abdomen: abdomen soft, non-tender, no abnormal masses and no hepatosplenomegaly Musculoskeletal: no gait disturbance, no joint inflammation, no deforming arthritis Extremities: no edema and no cyanosis Neuro: grossly normal exam Laboratory Data Review: EKG today reveals a sinus rhythm and is within normal limits. Impression: 1. Stable coronary artery disease with prior LAD stents in 2001 and right coronary stents in 2002 2. Peripheral vascular disease with a ruptured abdominal aortic aneurysm June 2019 with an endovascular stent 3. Probable claudication due to PVD 4. Cigarette smoker until June 2019 5. Breast cancer status post left mastectomy Plan: As mentioned above, the patient has completed chemotherapy and will have follow- up with her oncologist for breast cancer. From a cardiac standpoint she is stable. Of note, is that she would like to have knee and hip replacement surgery completed by Orthopedics due to severe degenerative joint disease. She has not seen a surgeon yet. I recommended that when she sees surgeon and and surgery is definite then she should see us prior to that procedure for preoperative evaluation. Otherwise we will see her again in 6 months. This chart was completed in part utilizing 2C2P Speech Voice Recognition Software. Grammatical errors, random word insertions, prounoun errors, and incomplete sentences are an occasional consequence of this system due to software limitations, ambient noise, and hardware issues. Any formal questions or concerns about the content, text, or information contained within the body of this dictation should be directly addressed to the provider for clarification. I spent a total of 30-39 minutes (exact time 38 mins) on the date of service in preparation, delivery, and documentation of the care provided to Afua Rosenbaum excluding any time spent in the performance of separately billed services. Guillermo Mejia DO Cardiology, [address] [address] 06/06/2023 documented in this encounter Nursing Notes * Miguel Acuna, RN - 06/06/2023 11:28 AM EST Examination Room: room 17 Name: Afua Rosenbaum Date of : (1940). Reason for Visit: for follow up Interim Hospitalization(s): denies Problems/Concerns: denies Chest Pain/SOB: denies [facility] Discussed: Not applicable [facility] is a way you can talk to your provider online through e-mail. Would you like to sign up? I can activate it for you? NO INTERNET ACCESS Patient was instructed to not get up on the exam table until directed and assisted by their provider; patient is to remain seated in the chair/ wheelchair/ exam table for fall prevention and safety reasons. Patient is aware to have assistance to step down off exam table with personnel. Patient voiced full comprehension of instructions. documented in this encounter Plan of Treatment Upcoming Encounters Date Type Department Care Team (Late st Contact Info) Description 06/12/2023 1:00 PM EST [address] [address] 06/12/2023 1:30 PM EST Imaging Radiology [address] [place] [address] 07/07/2023 11:00 AM EST Laboratory Laboratory [address] [place] [phone] [place] [address] 07/14/2023 2:30 PM EST Office Visit Hematology/Oncology [facility] Vickey Brandt [address] [place] [address] Gay Lu MD [address] [place] [address] 08/04/2023 1:00 PM EST Imaging Radiology [address] [place] [address] 08/12/2023 1:40 PM EST Office Visit Family Medicine [address] [place] [phone] Jasson Denney MD [address] [place] [address] [place] [address] 03/31/2024 3:00 PM EDT Office Visit Nephrology [address] [place] [address] Maritza Parrish MD [address] [place] [address] 04/05/2024 1:20 PM EDT Office Visit Dermatology [address] [place] [address] Melanie Frank PA-C [address] [place] [address] [place] [address] Scheduled Orders Name Type Priority Associated Diagnoses Orde r Schedule EKG COMPLETE (TRACING AND INTERP) EKG Routine S/P angioplasty with stent Chronic ischemic heart disease S/P AAA repair Ordered: 06/06/2023 Health Maintenance Due Date Last Done Comments Alpha-1 Antitrypsin 1958 DTaP,Tdap,and Td Vaccines (1 - Tdap) 1959 Zoster Vaccines (1 of 2) 1990 *COPD SEVERITY VERIFIED BY PFT 01/02/2018 Depression Screening 08/07/2022 08/07/2021 Albumin/Creatinine Ratio 07/25/2023 023, 08/07/2021, 01/12/2021, Additional history exists CKD PHOS USE SMARTSET 68260 07/25/2023 02/0 02/2023, 01/10/2022, 01/11/2021, Additional history exists O2 ASSESSMENT COMPLETED IN PAST YEAR FOR COPD 08/15/2023 08/14/2022 GFR 09/19/2023 03/20/2023, 11/14, 11/04/2022, Additional history exists CKD HGB USE SMARTSET 98319 03/20/202403/20, 03/20/2023, 11/25/2022, Additional history exists HbA1c 03/20/2024 03/20/2023, 1010/2021, 11/01/2020, Additional history exists DXA Scan 05/31/2026 05/31/2019, 12/09/2006 Pneumococcal Vaccine: 65+ Years Completed 08/19/2016, 07/18/2015, 04/11/2006 Influenza Vaccine (FLU shot) Completed 10/2022, 04/04/2022, 03/19/2021, Additional history exists COVID-19 Vaccine Completed 05/13/2023, , 02/05/2022, Additional history exists GARDASIL-HPV IMMUNIZATION SERIES Aged Out No longer eligible based on patient's age to complete this topic Hepatitis B Aged Out No longer eligi ble based on patient's age to complete this topic MENINGOCOCCAL (MENACTRA/MENVEO) Aged Out No longer eligible based on patient's age to complete this topic documented as of this encounter Medical Devices Implanted Type Area Public Health Physician Device Identifier Shelf Expiration Date Model / Serial / Lot [place] Excluder Aaa Endoprothesis System-07/07/2019 Implanted:07/07/19 20 (Quantity not on file) Graft Description:Multiple implant s from system on same day [id number] Cordis Bx Velocity Cardiac Stent-06/02/2002 Implanted:06/02/20 02 (Quantity not on file) Stent CORDIS LEXA BX VELOCITY [id number] / / [id number] Cordis Bx Velocity Cardiac Stent-01/03/2003 Implanted:01/04/20 03 (Quantity not on file) Stent CORDIS LEXA VELOCITY [id number] / / [id number] documented as of this encounter Visit Diagnoses Diagnosis S/P angioplasty with stent- Primary Postsurgical percutaneous transluminal coronary angioplasty status Chronic ischemic heart disease Chronic ischemic heart disease, unspecified S/P AAA repair Other postprocedural status documented in this encounter Advance Directives Latest [...] the patient have Health Care Power of Carton Stenciler? No Healthcare Agents on File Name Relationship Healthcare Agent Relationship Communication Gus Rosenbaum Jr. Adult Child Health Care R epresentative (appointed verbally by patient or by statute hierarchy) Care Teams Oracle Developer Relationship Specialty Start Date End Date Jasson Denney MD [address] [place] [address] [place] [address] PCP - General Family Medicine 03/22/16 documented as of this encounter"
--- OUTSIDE RECORDS SUMMARY | 2023-06-24 05:39 | External Medical Summary | Summary of Care ---
Author Name Unknown Organization [facility] Address [address] [place] [facility] [place] [place] [address] Phone [phone] Care Team Providers Care Inspector Type Name Role Phone Jonathan Valdivia MD Primary Care Provide r Reason for Visit * Reason Comments eRx-Medication Refill Encounter Details Date Type Department Care Team Description 04/02/2023 Refill Family Medicine [address] [phone] Jonathan Valdivia MD [address] [place] [address] [place] [id number] HTN, goal below 140/90 Allergies Active Allergy Reactions Severity Noted Date Comments Adhesive Tape 04/11/2006 Latex 06/06/2022 Other reaction(s): rash/itchy documented as of this encounter (statuses as of 04/02/2023) Medications Medication Sig Dispensed Refills Start Date End Date Status OSCAL 500/200 D-3 500-200 MG-UNIT PO TABS Take 1 Tablet by mouth in the morning. 0 08/11/2007 Active CENTRUM SILVER PO TABS one a day 0 08/11/2007 Active Polyethylene Glycol 3350 17 GM/SCOOP Oral Powder Take 17 g by mouth daily as needed for Constipation. 0 Active cyclobenzaprine (FLEXERIL) 10 MG TabletIndication s:Spasm of back muscles Take 1 Tab by [...] every night at bedtime. 0 07/12/2019 Active Phenylephrine-Co coa Butter 0.25-88.44 % Rectal Suppository Administer into the rectum as needed for Hemorrhoids. 0 Active Nitroglycerin 0.4 MG Sublingual Tablet Sublingual (Nitrostat) Place 1 Tablet under the tongue as needed. 0 11/10/2020 Active Atenolol 25 MG Oral Tablet (Tenormin)Indica tions:HTN, goal below 140/90 TAKE 1 TABLET BY MOUTH DAILY IN AM 90 Tablet 2 06/06/2022 Active Rosuvastatin Calcium 20 MG Oral Tablet (Crestor)Indicat ions:Dyslipidemi a, goal LDL below 100 TAKE 1 TABLET BY MOUTH DAILY 90 Tablet 3 07/22/2022 Active Isosorbide Mononitrate ER 30 MG Oral Tablet Extended Release 24 Hour (Imdur)Indicatio ns:Coronary artery disease involving havasupai coronary artery of havasupai heart without angina pectoris TAKE 1 TABLET BY MOUTH EVERY DAY IN THE MORNING 90 Tablet 1 11/26/2022 Active Ezetimibe 10 MG Oral Tablet (Zetia)Indicatio ns:Dyslipidemia, goal to be determined TAKE 1 TABLET BY MOUTH DAILY 90 Tablet 1 12/27/2022 Active Enalapril Maleate 10 MG Oral Tablet (Vasotec) TAKE 2 TABLETS BY MOUTH EVERY DAY 180 Tablet 1 01/20/2023 Active DULoxetine HCl 30 MG Oral Capsule Delayed Release Particles (Cymbalta)Indica tions:Moderate episode of recurrent major depressive disorder (HCC),Chronic [...] 2023 Active Gabapentin 100 MG Oral Capsule (Neurontin)Indic ations:Chronic bilateral low back pain with bilateral sciatica Take 1 Capsule by mouth in the morning and 1 Capsule before bedtime. 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, estrogen receptor positive 06/28/2022 Postherpetic neuralgia 06/28/2022 Hiatal hernia 08/07/2021 Schatzki's ring 08/07/2021 S/P angioplasty with stent 11/15/2020 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 11/15/2020 Cardiac murmur 11/15/2020 Chronic kidney disease, stage 3b 021 Overview: Per CKD protocol Hypertensive kidney disease with stage 3 b chronic kidney disease 04/24/2020 Overview: Per CKD protocol S/P AAA repair 10/21/2019 Prediabetes 05/24/2019 Overview: Per Prediabetes protocol Moderate episode of recurrent major depr essive disorder 07/14/2018 COPD, mild 12/30/2017 Postmenopausal atrophic vaginitis 2016 Hx of nonmelanoma skin cancer 10/28/2016 Overview: squamous cell carcinoma (L dorsal hand 03/08), basal cell carcinoma (R infraorbital region 2017, 09/2018), nonmelanoma skin cancer-names unknown (on central chest and chin, was many years ago) Hemorrhoids, external without complicati ons 02/05/2016 Venous insufficiency 02/05/2016 History of tobacco use 02/05/2016 Overview: 2019 Dyslipidemia, goal LDL below 70 05/25/20 09 Overview: Per Lipid Taxonomy. HTN, goal below 130/80 04/21/2009 Overview: Modified per HTN Taxonomy. Chronic ischemic heart disease Overview: with 2 stents documented as of this encounter (statuses as of 04/02/2023) Resolved Problems Problem Noted Date Resolved Date AAA (abdominal aortic aneurysm) 09/01/2019 04/25/2020 Overview: S/p repair Hypertensive kidney disease with chronic kidney disease stage III 01/07/2019 04/27/2020 Overview: Per CKD protocol Kidney disease, chronic, stage III (GFR 30-59 ml /min) 11/23/2018 01/28/2019 Overview: Per CKD protocol Major depressive disorder 2019 Overview: ICD-10 update of inactive term Dyslipidemia, goal to be determined 05/25/2009 Overview: Per Lipid Taxonomy. HTN, goal below 140/90 9 Overview: Modified per HTN Taxonomy. Solitary cyst of breast 12/31/19 18 Overview: Breast Cyst Impaired glucose tolerance 07/19 documented as of this encounter (statuses as of 04/02/2023) Immunizations Name Administration Dates Next Due COVID-19 mRNA, LNP-s, No Pre serve, 2-Dose Series (Welocalize) 08/11/2020,07/21/2020 COVID-19, LNP-s, No Preserve , Dusty-sucrose, Ages 12+ (Welocalize) 02/05/2022,08/07/2021 Covid-19, Mrna, Lnp-s, Pf, B ivalent, 30 Mcg, IM, 12 yrs and above (Welocalize) 06/11/2022 Pneumococcal Conjugate Vacc, 13 Valent (Prevnar) [...] alcohol) a glass or wine on holidays Food Insecurity Answer Date Recorded Within the past 12 months, y ou worried that your food would run out before you got money to buy more. Never true 04/25/2020 Within the past 12 months, t he food you bought just didn't last and you didn't have money to get more. Never true 04/25/2020 Sex Assigned at Date Recorded Not on file Job Start Date Occupation Industry Not on file Not on file Not on file documented as of this encounter Miscellaneous Notes * Telephone Encounter - Guillermo Bronson RPh - 04/02/2023 3:27 PM EDTSigned Prescriptions: Disp Refills Clopidogrel Bisulfate 75 MG Oral Tablet (p*90 Tab*1 Sig: TAKE 1 TABLET BY MOUTH DAILYAuthorizing Provider: JONATHAN VALDIVIA User: GUILLERMO ALVARADO-- documented in this encounter Plan of Treatment Upcoming Encounters Date Type Specialty Care Team Description 04/07/2023 Office Visit Dermatology Walter Sr [place] [address] [place] [address] 05/07/2023 Office Visit Nephrology Valery Urena PA-C [address] [place] [address] 06/06/2023 Office Visit Cardiology Guillermo Mejia DO [address] [place] [address] 06/12/2023 Imaging Radiology 06/12/2023 Imaging Radiology 07/07/2023 Laboratory Laboratory [address] [place] [address] 07/14/2023 Office Visit Hematology Oncology Gay Lu MD [address] [place] [address] 08/04/2023 Imaging Radiology 08/12/2023 Office Visit Family Medicine Jonathan Valdivia MD [address] [place] [address] [place] [address] 04/05/2024 Office Visit Dermatology Melanie Frank PA-C [address] [place] [address] [place] [address] Health Maintenance Due Date Last Done Comments Alpha-1 Antitrypsin 1958 DTaP,Tdap,and Td Vaccines (1 - Tdap) 1959 Zoster Vaccines (1 of 2) 1990 *COPD SEVERITY VERIFIED BY PFT 01/02/2018 Depression Screening 08/07/2022 08/07/2021 COVID-19 Vaccine (2022- season) 2023 06/11/2022, 02/05/2022, 08/07/2021, Additional history exists Albumin/Creatinine Ratio 07/25/2023 023, 08/07/2021, 01/12/2021, Additional history exists CKD PHOS USE SMARTSET 25397 07/25/2023 02/0 02/2023, 01/10/2022, 01/11/2021, Additional history exists O2 ASSESSMENT COMPLETED IN PAST YEAR FOR COPD 08/15/2023 08/14/2022 GFR 09/19/2023 03/20/2023, 11/14, 11/04/2022, Additional history exists CKD HGB USE SMARTSET 09368 03/20/202403/20, 03/20/2023, 11/25/2022, Additional history exists HbA1c 03/20/2024 03/20/2023, 10/2021, 11/01/2020, Additional history exists DXA Scan [...] this encounter Medical Devices Implanted Type Area Hoister Device Identifier Shelf Expiration Date Model / Serial / Lot [place] Excluder Aaa Endoprothesis System-07/07/2019 Implanted:07/07/19 20 (Quantity not on file) Graft Description:Multiple implant s from system on same day [id number] Cordis Bx Velocity Cardiac Stent-06/02/2002 Implanted:06/02/20 02 (Quantity not on file) Stent Inception SciencesIS LEXA BX VELOCITY [id number] / / [id number] Cordis Bx Velocity Cardiac Stent-01/03/2003 Implanted:01/04/20 03 (Quantity not on file) Stent CORDIS LEXA VELOCITY [id number] / / [id number] documented as of this encounter Visit Diagnoses Diagnosis HTN, goal below 140/90 Unspecified essential hypertension documented in this encounter Advance Directives Latest [...] the patient have Health Care Power of Billet Assembler? No Healthcare Agents on File Name Relationship Healthcare Agent Relationship Communication Gus Rosenbaum Jr. Adult Child Health Care R epresentative (appointed verbally by patient or by statute hierarchy) Care Teams Inspector Type Relationship Specialty Start Date End Date Jonathan Valdivia MD [address] [place] [address] [place] Ramachandran [phone] PCP - General Family Medicine 03/22/16 documented as of this encounter
--- OUTSIDE RECORDS SUMMARY | 2023-06-24 05:39 | External Medical Summary | Summary of Care ---
Author Name Unknown Organization [facility] Address [address] [facility] [place] [address] Phone [phone] Care Team Providers Care Ward Attendant Name Role Phone Jasson Denney MD Primary Care Provide r Reason for Visit * Reason Comments Mohs Surgery Patient here for moh s on left dorsal hand. * Evaluate & Treat - Unlimited Visits (Within 10 days (routine)) - Closed Specialty Diagnoses / Procedures Referred By Radha romero Referred To Contact Dermatology Diagnoses Squamous cell cancer of skin of left hand Melanie Frank PA-C [address] [place] [address] [place] [address] Referral ID Status Reason Start Date Expiration Date V isits Requested Visits Authorized [id number] Closed Specialty Services Required 03/18/2023 1 1 Encounter Details Date Type Department Care Team (Late st Contact Info) Description 04/07/2023 1:00 PM EDT Office Visit [facility] Surgery [address] [address] Walter Sr MD [address] [place] [phone] Squamous cell cancer of skin of left hand* Allergies Active Allergy Reactions Criticality Noted Date Comments Adhesive Tape 04/11/2006 Latex 06/06/2022 Other reaction(s): rash/itchy documented as of this encounter (statuses as of 04/07/2023) Medications Medication Sig Dispensed Refills Start Date [...] every night at bedtime. 0 07/12/2019 Active Phenylephrine-Cougar Butter 0.25-88.44 % Rectal Suppository Administer into [...] 24 Hour (Imdur)Indications: Coronary artery disease involving habematolel coronary artery of habematolel heart without angina pectoris TAKE 1 TABLET [...] as of this encounter (statuses as of 04/07/2023) Active Problems Problem Noted Date Diagnosed Date Encounter for antineoplastic chemotherapy 2022 Malignant neoplasm of left b reast in female, estrogen receptor positive 06/28/2022 Postherpetic neuralgia 06/28/2022 Hiatal hernia 08/07/2021 Schatzki's ring 08/07/2021 S/P angioplasty with stent 11/15/2020 Coronary artery disease invo lving habematolel heart without angina pectoris 11/15/2020 Cardiac murmur [...] 02/05/2016 History of tobacco use 02/05/2016 Overview: Quit 2019 Dyslipidemia, goal LDL below 70 05/25/2009 Overview: Per Lipid Taxonomy. HTN, goal below 130/80 04/21/2009 Overview: Modified per HTN Taxonomy. Chronic ischemic heart disease Overview: with 2 stents documented as of this encounter (statuses as of 04/07/2023) Resolved Problems Problem Noted Date Diagnosed Date [...] as of this encounter (statuses as of 04/07/2023) Immunizations Name Administration Dates Next Due COVID-19 mRNA, LNP-s, No Pre serve, 2-Dose Series (Earth [employer]) 08/11/2020,07/21/2020 COVID-19, LNP-s, No Preserve , Dusty-sucrose, Ages 12+ (Earth [employer]) 02/05/2022,08/07/2021 Covid-19, Mrna, Lnp-s, Pf, B ivalent, [...] Progress Notes * Walter Sr MD - 04/07/2023 1:35 PM EDT History: Afua Rosenbaum is a 83 year old year old patient seen at the request for consultation by PAUL Junior for evaluation and management of SCC, left dorsal hand. . This lesion has been present for several months--was not healing. She has a pink plaque on her left 5th knuckle-- present x years. She feels it is some sort of eczema. Outpatient Medications Marked as Taking for the 04/07/23 encounter (Office Visit) with Walter Sr MD Medication Sig Clopidogrel Bisulfate 75 MG Oral Tablet (pLAVix) TAKE 1 TABLET BY MOUTH DAILY Gabapentin 100 MG Oral Capsule (Neurontin) Take 1 Capsule by mouth in the morning and 1 Capsule before bedtime. Pantoprazole Sodium 20 MG Oral Tablet Delayed Release (Protonix) TAKE 1 TABLET BY MOUTH DAILY 1/2 HOUR BEFORE THE FIRST MEAL OF THE DAY. DO NOT CRUSH, SPLIT OR CHEW THE TABLET DULoxetine HCl 30 MG Oral Capsule Delayed Release Particles (Cymbalta) TAKE 1 CAPSULE BY MOUTH EVERY DAY Enalapril Maleate 10 MG Oral Tablet (Vasotec) TAKE 2 TABLETS BY MOUTH EVERY DAY Ezetimibe 10 MG Oral Tablet (Zetia) TAKE 1 TABLET BY MOUTH DAILY Isosorbide Mononitrate ER 30 MG Oral Tablet Extended Release 24 Hour (Imdur) TAKE 1 TABLET BY MOUTHEVERY DAY IN THE MORNING Rosuvastatin Calcium 20 MG Oral Tablet (Crestor) TAKE 1 TABLET BY MOUTH DAILY Atenolol 25 MG Oral Tablet (Tenormin) TAKE 1 TABLET BY MOUTH DAILY IN AM Nitroglycerin 0.4 MG Sublingual Tablet Sublingual (Nitrostat) Place 1 Tablet under the tongue as needed. Acetaminophen 325 MG Oral Tablet Take 2 Tablets by mouth every 6 hours as needed for Pain. docusate sodium (COLACE) 100 MG Capsule Take 1 Capsule by mouth every night at bedtime. Phenylephrine-Cougar Butter 0.25-88.44 % Rectal Suppository Administer into the rectum as needed forHemorrhoids. VENTOLIN HFA 108 (90 Base) MCG/ACT inhaler INHALE 2 PUFFS BY MOUTH EVERY 4 HOURS NEEDED FOR COUGH, SHORTNESS OF BREATH OR WHEEZING. cyclobenzaprine (FLEXERIL) 10 MG Tablet Take 1 Tab by mouth 3 times a day as needed for Muscle spasms. Polyethylene Glycol 3350 17 GM/SCOOP Oral Powder Take 17 g by mouth daily as needed for Constipation. CENTRUM SILVER PO TABS one a day OSCAL 500/200 D-3 500-200 MG-UNIT PO TABS Take 1 Tablet by mouth in the morning. Review of patient's allergies indicates: Allergen Reactions Adhesive Tape Latex Other reaction(s): rash/itchy ROS: The patient feels generally well and has no other skin complaints. Exam: Patient is alert, oriented and in no distress. Exam is of the skin and mucosa of left hand. The patient is alert and oriented and appears generally well. The patient's skin is remarkable for an atrophic healing biopsy site measuring 1.5 cm. (siteconfirmed with photo taken at time of biopsy). Mentor plaque, left 5th knuckle. Impression: 1. SCC, left dorsal hand 2. 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 Plan for Mohs surgery today. Risks, benefits and alternatives discussed with patient. Risks suchas (but not limited to) scar, infection, bleeding, hematoma, and recurrence disussed. Questions answered. Informed consent form discussed and signed. Photograph obtained of lesion for medical record. Patient identified, procedure verified, site identified and verified. Time out completed. Surgical removal of the lesion discussed with the patient (risks and benefits, including possibility of scarring, infection, recurrence or potential for further treatment). I have specifically identified the site with the patient. I have discussed the fact that the patient will have a scar after the procedure regardless of granulation or repair with sutures. I have discussed that the repair options can range from granulation in some cases to linear or curvilinear closures to larger flaps or grafts. There are sometimes flaps or grafts used that require multiple stages of surgery and will not be completed today , rather be completed over a series of appointments. I have discussed that occasionally due to location , size or depth of the lesion I may recommend consultation with and transfer of care for further removal or the the reconstruction to another provider such as ophthalmology surgery , plastic surgery, ENT surgery or surgical oncology. There are cases in which other testing such as imaging with MRI or CT scan or testing of lymph nodes is recommended because of the nature/ depth/ location of tumor seen during the removal. There is a risk of injury tonerves causing temporary or permanent numbness or the inability to move muscles fully such as the inability to lift eyebrows. Questions answered and verbal and written consent was obtained. Mohs resection today. Tumor cleared in 1 stage . Repaired with purse string and granulation. See operative report for complete details. 2. Patient declines biopsy or treatment. Photo obtained, Chase Sr MD Associate, Department of Dermatology documented in this encounter Nursing Notes * Pamela Padilla LPN - 04/07/2023 12:55 PM EDT Chief Complaint Patient presents with Mohs Surgery Patient here for mohs on left dorsal hand. Referral Doctor: Zac Hypertension History: Yes, refer to medication information for treatment. Diabetes History: No Thyroid History: No Bleeding Tendency: Yes, refer to medication information for treatment. Artificial Valve or Joint: No Pacemaker: no Defibrillator: no Hepatitis/HIV Exposure: No Smoking: no Consent signed yes documented in this encounter Plan of Treatment Upcoming Encounters Date Type Department Care Team (Late st Contact Info) Description 04/28/2023 11:30 AM EST Office Visit [facility] Surgery [facility] [address] [place] [address] Walter Sr MD [address] [place] [address] 06/06/2023 11:30 AM EST Office Visit Cardiology, [facility] [address] [facility] [place] [address] Guillermo Mejia, [address] [facility] [place] [address] 06/12/2023 1:00 PM EST Imaging Radiology [facility] [address] [facility] [address] [place] [address] 06/12/2023 1:30 PM EST Imaging Radiology [address] [place] [address] 07/07/2023 11:00 AM EST Laboratory Laboratory [address] [place] [phone] [place] [address] 07/14/2023 2:30 PM EST Office Visit Hematology/Oncology [facility] [address] [place] [address] Gay Lu MD [address] [place] [address] 08/04/2023 1:00 PM EST Imaging Radiology [address] [place] [address] 08/12/2023 1:40 PM EST Office Visit Family Medicine [address] [place] [phone] Jasson Denney MD [address] [place] [address] [place] [address] 04/05/2024 1:20 PM EDT Office Visit Dermatology [address] [place] [address] Melanie Frank PA-C [address] [place] [address] [place] [address] Scheduled Referrals Name Type Priority Associated Diagnoses Orde r Schedule [facility] SURGERY REFERRAL OP Referral Within 10 days (routine) Squamous cell cancer of skin of left hand Ordered: 03/18/2023 Health Maintenance Due Date Last Done Comments Alpha-1 Antitrypsin 1958 DTaP,Tdap,and Td Vaccines (1 - Tdap) 1959 Zoster Vaccines (1 of 2) 1990 *COPD SEVERITY VERIFIED BY PFT 01/02/2018 Depression Screening 08/07/2022 08/07/2021 COVID-19 Vaccine (24 season) 2023 06/11/2022, 02/05/2022, 08/07/2021, Additional history exists Albumin/Creatinine Ratio 07/25/2023 023, 08/07/2021, 01/12/2021, Additional history exists CKD PHOS USE SMARTSET 20427 07/25/202302/2023, 01/10/2022, 01/11/2021, Additional history exists O2 ASSESSMENT COMPLETED IN PAST YEAR FOR COPD 08/15/2023 08/14/2022 GFR 09/19/2023 03/20/2023, 11/14, 11/04/2022, Additional history exists CKD HGB USE SMARTSET 48230 03/20/202403/20, 03/20/2023, 11/25/2022, Additional history exists HbA1c [...] this encounter Medical Devices Implanted Type Area Driving Instructor Device Identifier Shelf Expiration Date Model / Serial / Lot [place] Excluder Aaa Endoprothesis System-07/07/2019 Implanted:07/07/19 20 (Quantity not on file) Graft Description:Multiple implant s from system on same day [id number] Cordis Bx Velocity Cardiac Stent-06/02/2002 Implanted:06/02/20 02 (Quantity not on file) Stent CORDIS LEXA BX VELOCITY [id number] / / [id number] Cordis Bx Velocity Cardiac Stent-01/03/2003 Implanted:01/04/20 03 (Quantity not on file) Stent CORDIS LEXA VELOCITY [id number] / / [id number] documented as of this encounter Visit Diagnoses Diagnosis Squamous cell cancer of skin of left hand- Primary documented in this encounter Advance Directives Latest [...] the patient have Health Care Power of Tractor Mechanic Helper? No Healthcare Agents on File Name Relationship Healthcare Agent Relationship Communication Gus Rosenbaum Jr. Adult Child Health Care R epresentative (appointed verbally by patient or by statute hierarchy) Care Teams Ward Attendant Relationship Specialty Start Date End Date Jasson Denney MD [address] [place] [address] [place] [address] PCP - General Family Medicine 03/22/16 documented as of this encounter
--- OUTSIDE RECORDS SUMMARY | 2023-06-24 05:39 | External Medical Summary | Summary of Care ---
Author Name Unknown Organization [facility] [address] [facility] [address] Phone [phone] Care Team Providers Care Event Coordinator Name Role Phone Jonathan Denney MD Primary Care Provide r Reason for Visit * Reason Comments eRx-Medication Refill Encounter Details Date Type Department Care Team (Late st Contact Info) Description 06/16/2023 Refill Family Medicine [address] [phone] Jonathan Denney MD [address] [place] [address] [place] [address] Dyslipidemia, goal to be determined Allergies Active Allergy Reactions Criticality Noted Date Comments Adhesive Tape 04/11/2006 Latex 06/06/2022 Other reaction(s): rash/itchy documented as of this encounter (statuses as of 06/17/2023) Medications Medication Sig Dispensed Refills Start Date [...] MOUTH DAILY 90 Tablet 3 07/22/2022 Active Enalapril Maleate 10 MG Oral Tablet [...] 06/06/2023 Clopidogrel Bisulfate 75 MG Oral Tablet (pLAVix)Indicati ons:HTN, goal below 140/90 TAKE 1 TABLET BY MOUTH DAILY 90 Tablet 1 04/02/2023 Active Isosorbide Mononitrate ER 30 MG Oral Tablet Extended Release 24 Hour (Imdur)Indicatio ns: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 TAKE 1 TABLET BY MOUTH EVERY DAY IN THE MORNING 90 Tablet 1 05/30/2023 Active Atenolol 25 MG Oral Tablet (Tenormin)Indica tions:HTN, goal below 140/90 TAKE 1 TABLET BY MOUTH DAILY IN THE MORNING 90 Tablet 1 05/30/2023 Active Ezetimibe 10 MG Oral Tablet (Zetia)Indicatio ns:Dyslipidemia, goal to be determined TAKE 1 TABLET BY MOUTH DAILY 90 Tablet 0 06/17/2023 Active Ezetimibe 10 MG Oral Tablet (Zetia)Indicatio ns:Dyslipidemia, goal to be determined TAKE 1 TABLET BY MOUTH DAILY 90 Tablet 1 12/27/2022 06/17/19 24 Discontinued documented as of this encounter (statuses as of 06/17/2023) Active Problems Problem Noted Date Diagnosed Date Encounter for antineoplastic chemotherapy 2022 Malignant neoplasm of left b reast in female, estrogen receptor positive 06/28/2022 Postherpetic neuralgia 06/28/2022 Hiatal hernia 08/07/2021 Schatzki's ring 08/07/2021 S/P angioplasty with stent 11/15/2020 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 11/15/2020 Cardiac murmur [...] as of this encounter (statuses as of 06/17/2023) Resolved Problems Problem Noted Date Diagnosed Date [...] as of this encounter (statuses as of 06/17/2023) Immunizations Name Administration Dates Next Due COVID-19 mRNA, LNP-s, No Pre serve, 2-Dose Series (How do you roll?) 08/11/2020,07/21/2020 COVID-19, LNP-s, No Preserve , Dusty-sucrose, Ages 12+ (How do you roll?) 02/05/2022,08/07/2021 COVID-19, MRNA-LNP, 23-24, P F, 30 MCG/0.3 mL, 12 YRS AND ABOVE, IM ([facility]) 05/13/2023 Covid-19, Mrna, Lnp-s, Pf, B ivalent, [...] encounter Miscellaneous Notes * Telephone Encounter - David Saucedo, [facility] - 06/17/2023 2:44 PM ESTSigned Prescriptions: Disp Refills Ezetimibe 10 MG Oral Tablet (Zetia) 90 Tab*0 Sig: TAKE 1 TABLET BY MOUTH DAILYAuthorizing Provider: JONATHAN DENNEYOrderuzair User: DAVID SAUCEDO------ * Telephone Encounter - David Saucedo [facility] - 06/17/2023 2:43 PM EST RX authorized. Zero refills given until upcoming lab appointment. Thank you, David Saucedo, PharmD Clinical Pharmacist [facility] (Former[facility]) [phone] 06/17/2023, 2:44 PM documented in this encounter Plan of Treatment Upcoming Encounters Date Type Department Care Team (Late st Contact Info) Description 07/07/2023 11:00 AM EST Laboratory Laboratory [address] [place] [phone] [place] [address] 07/14/2023 2:30 PM EST Office Visit Hematology/Oncology [facility] [place] [address] Gya Lu MD 200 [facility] [place] [address] 08/04/2023 1:00 PM EST Imaging Radiology [address], [place] 132 [facility] [place] [address] 08/12/2023 1:40 PM EST Office Visit Family Medicine [address] [place] [phone] Jonathan Denney MD [address] [place] [address] [place] [address] 03/31/2024 3:00 PM EDT Office Visit Nephrology [address] [place] [address] Maritza Parrish MD 200 [place] [address] 04/05/2024 1:20 PM EDT Office Visit Dermatology [address] [place] [address] Melanie Frank PA-C [address] [place] [address] [place] [address] Scheduled Orders Name Type Priority Associated Diagnoses Orde r Schedule LIPID PANEL WITH DIRECT LDL IF TG IS HIGH Lab Routine Dyslipidemia, goal to be determined Expected: 06/17/2023 (Approximate), Expires: 06/17/2024 Health Maintenance Due Date Last Done Comments Alpha-1 Antitrypsin 1958 DTaP,Tdap,and Td Vaccines (1 - Tdap) 1959 Zoster Vaccines (1 of 2) 1990 *COPD SEVERITY VERIFIED BY PFT 01/02/2018 Depression Screening 08/07/2022 08/07/2021 Albumin/Creatinine Ratio 07/25/2023 023, 08/07/2021, 01/12/2021, Additional history exists CKD PHOS USE SMARTSET 86261 07/25/2023 02/0 02/2023, 01/10/2022, 01/11/2021, Additional history exists O2 ASSESSMENT COMPLETED IN PAST YEAR FOR COPD 08/15/2023 08/14/2022 GFR 09/19/2023 03/20/2023, 11/14, 11/04/2022, Additional history exists CKD HGB USE SMARTSET 51841 03/20/202403/20, 03/20/2023, 11/25/2022, Additional history exists HbA1c [...] this encounter Medical Devices Implanted Type Area Transferrer Device Identifier Shelf Expiration Date Model / Serial / Lot [place] Excluder Aaa Endoprothesis System-07/07/2019 Implanted:07/07/19 20 (Quantity not on file) Graft Description:Multiple implant s from system on same day [id number] Cordis Bx Velocity Cardiac Stent-06/02/2002 Implanted:06/02/20 02 (Quantity not on file) Stent CORDIS LEXA BX VELOCITY [id number] / / [id number] Cordis Bx Velocity Cardiac Stent-01/03/2003 Implanted:01/04/20 03 (Quantity not on file) Stent CORDIS LEXA VELOCITY [id number] / / [id number] documented as of this encounter Visit Diagnoses Diagnosis Dyslipidemia, goal to be determined Other and unspecified hyperlipidemia documented in this encounter Advance Directives Latest [...] the patient have Health Care Power of Workers' Compensation Mediator? No Healthcare Agents on File Name Relationship Healthcare Agent Relationship Communication Gus Rosenbaum Jr. Adult Child Health Care R epresentative (appointed verbally by patient or by statute hierarchy) Care Teams Event Coordinator Relationship Specialty Start Date End Date Jonathan Denney MD [address] [place] [address] [place] [address] PCP - General Family Medicine 03/22/16 documented as of this encounter
--- OUTSIDE RECORDS SUMMARY | 2023-06-24 05:39 | External Medical Summary | Summary of Care ---
Author Name Unknown Organization [facility] Address [address] [facility] [place] [address] Phone [phone] Care Team Providers Care Supply Technician Name Role Phone Jasson Denney MD Primary Care Provide r Reason for Visit * Reason Comments eRx-Medication Refill Encounter Details Date Type Department Care Team (Late st Contact Info) Description 06/16/2023 Refill Cardiology [address] [place] [address] Guillermo Mejia, DO [address] [place] [address] Dyslipidemia, goal LDL below 100 Allergies Active Allergy Reactions Criticality Noted Date Comments Adhesive Tape 04/11/2006 Latex 06/06/2022 Other reaction(s): rash/itchy documented as of this encounter (statuses as of 06/19/2023) Medications Medication Sig Dispensed Refills Start Date [...] the tongue as needed. 0 11/10/2020 Active Enalapril Maleate 10 MG Oral Tablet [...] 24 Hour (Imdur)Indicatio ns:Coronary artery disease involving hoonah coronary artery of hoonah heart without angina pectoris TAKE 1 TABLET BY MOUTH EVERY DAY IN THE MORNING 90 Tablet 1 05/30/2023 Active Atenolol 25 MG Oral Tablet (Tenormin)Indica tions:HTN, goal below 140/90 TAKE 1 TABLET BY MOUTH DAILY IN THE MORNING 90 Tablet 1 05/30/2023 Active Rosuvastatin Calcium 20 MG Oral Tablet (Crestor)Indicat ions:Dyslipidemi a, goal LDL below 100 TAKE 1 TABLET BY MOUTH DAILY 90 Tablet 3 06/19/2023 Active Ezetimibe 10 MG Oral Tablet (Zetia)Indicatio ns:Dyslipidemia, goal to be determined TAKE 1 TABLET BY MOUTH DAILY 90 Tablet 0 06/17/2023 Active Rosuvastatin Calcium 20 MG Oral Tablet (Crestor)Indicat ions:Dyslipidemi a, goal LDL below 100 TAKE 1 TABLET BY MOUTH DAILY 90 Tablet 3 07/22/2022 06/19/19 24 Discontinued documented as of this encounter (statuses as of 06/19/2023) Active Problems Problem Noted Date Diagnosed Date Encounter for antineoplastic chemotherapy 2022 Malignant neoplasm of left b reast in female, estrogen receptor positive 06/28/2022 Postherpetic neuralgia 06/28/2022 Hiatal hernia 08/07/2021 Schatzki's ring 08/07/2021 S/P angioplasty with stent 11/15/2020 Coronary artery disease invo lving hoonah heart without angina pectoris 11/15/2020 Cardiac murmur [...] as of this encounter (statuses as of 06/19/2023) Resolved Problems Problem Noted Date Diagnosed Date [...] as of this encounter (statuses as of 06/19/2023) Immunizations Name Administration Dates Next Due COVID-19 mRNA, LNP-s, No Pre serve, 2-Dose Series ([employer]) 08/11/2020,07/21/2020 COVID-19, LNP-s, No Preserve , Dusty-sucrose, Ages 12+ ([employer]) 02/05/2022,08/07/2021 COVID-19, MRNA-LNP, 23-24, P F, 30 MCG/0.3 mL, 12 YRS AND ABOVE, IM ([facility]) 05/13/2023 Covid-19, Mrna, Lnp-s, Pf, B [...] Miscellaneous Notes * Telephone Encounter - Guillermo Mejia DO - 06/19/2023 9:43 AM ESTSigned Prescriptions: Disp Refills Rosuvastatin Calcium 20 MG Oral Tablet (Cr*90 Tab*3 Sig: TAKE 1 TABLET BY MOUTH DAILY Authorizing Provider: GUILLERMO MEJIA * Telephone Encounter - Josselin Mai LPN - 06/18/2023 10:27 AM ESTPending Prescriptions: Disp Refills Rosuvastatin Calcium 20 MG Oral Tablet 90 Tab*3 Sig: TAKE 1 TABLET BY MOUTH DAILY * Telephone Encounter - Josselin Mai LPN - 06/18/2023 10:27 AM EST Pending Prescriptions: Disp Refills Rosuvastatin Calcium 20 MG Oral Tablet (C*90 Tab*3 Sig: TAKE 1 TABLET BY MOUTH DAILY * Telephone Encounter - Interface, [facility] Inbound - 06/18/2023 6:30 AM EST Pending Prescriptions: Disp Refills Rosuvastatin Calcium 20 MG Oral Tablet 90 Tab*3 Sig: TAKE 1 TABLET BY MOUTH DAILY documented in this encounter Plan of Treatment Upcoming Encounters Date Type Department Care Team (Late st Contact Info) Description 07/07/2023 11:00 AM EST Laboratory Laboratory [address] [place] [phone] [address] [place] [address] 07/14/2023 2:30 PM EST Office Visit Hematology/Oncology [facility] 200 [facility] [place] [address] Gay Lu MD [address] [place] [address] 08/04/2023 1:00 PM EST Imaging Radiology [address] 132 [facility] [place] [address] 08/12/2023 1:40 PM EST Office Visit Family Medicine [address] [place] [phone] Jasson Denney MD [address] [place] [address] [place] [address] 03/31/2024 3:00 PM EDT Office Visit Nephrology [address] [place] [address] Maritza Parrish MD 200 [facility] [place] [address] 04/05/2024 1:20 PM EDT Office Visit Dermatology [address] [place] [address] Melanie Frank PA-C [address] [place] [address] [place] [address] Health Maintenance Due Date Last Done Comments Alpha-1 Antitrypsin 1958 DTaP,Tdap,and Td Vaccines (1 - Tdap) 1959 Zoster Vaccines (1 of 2) 1990 *COPD SEVERITY VERIFIED BY PFT 01/02/2018 Depression Screening 08/07/2022 08/07/2021 Albumin/Creatinine Ratio 07/25/2023 023, 08/07/2021, 01/12/2021, Additional history exists CKD PHOS USE SMARTSET 51318 07/25/2023 02/0 02/2023, 01/10/2022, 01/11/2021, Additional history exists O2 ASSESSMENT COMPLETED IN PAST YEAR FOR COPD 08/15/2023 08/14/2022 GFR 09/19/2023 03/20/2023, 11/14, 11/04/2022, Additional history exists CKD HGB USE SMARTSET 08426 03/20/202403/20, 03/20/2023, 11/25/2022, Additional history exists HbA1c [...] this encounter Medical Devices Implanted Type Area Cracking Machine Operator Device Identifier Shelf Expiration Date Model / Serial / Lot [place] Excluder Aaa Endoprothesis System-07/07/2019 Implanted:07/07/19 20 (Quantity not on file) Graft Description:Multiple implant s from system on same day [id number] CordLogi-Serve Bx Velocity Cardiac Stent-06/02/2002 Implanted:06/02/20 02 (Quantity not on file) Stent CORDIS LEXA BX VELOCITY [id number] / / [id number] Cordis Bx Velocity Cardiac Stent-01/03/2003 Implanted:01/04/20 03 (Quantity not on file) Stent CORDIS LEXA VELOCITY [id number] / / [id number] documented as of this encounter Visit Diagnoses Diagnosis Dyslipidemia, goal LDL below 100 Other and unspecified hyperlipidemia documented in this [...] the patient have Health Care Power of Decker Operator? No Healthcare Agents on File Name Relationship Healthcare Agent Relationship Communication Gus Rosenbaum Jr. Adult Child Health Care R epresentative (appointed verbally by patient or by statute hierarchy) Care Teams Supply Technician Relationship Specialty Start Date End Date Jasson Denney MD [address] [place] [address] [place] [address] PCP - General Family Medicine 03/22/16 documented as of this encounter
--- OUTSIDE RECORDS SUMMARY | 2023-06-24 05:39 | External Medical Summary | Summary of Care ---
Author Name Unknown Organization [facility] Address [address] [facility] [place] [address] Phone [phone] Care Team Providers Care Director Of Professional Services Name Role Phone Jasson Denney MD Primary Care Provide r Reason for Visit * Reason Comments Chronic Kidney Disease (CKD) Encounter Details Date Type Department Care Team (Late st Contact Info) Description 05/13/2023 2:00 PM EST Office Visit Nephrology [address] [place] [address] ZeValery kurtz PA-C [address] [place] [address] Stage 3b chronic kidney disease (HCC)*; HTN, goal below 130/80 Allergies Active Allergy Reactions Criticality Noted Date Comments Adhesive Tape 04/11/2006 Latex 06/06/2022 Other reaction(s): rash/itchy documented as of this encounter (statuses as of 05/14/2023) Medications Medication Sig Dispensed Refills Start Date [...] every night at bedtime. 0 07/12/2019 Active Phenylephrine-[place] Butter 0.25-88.44 % Rectal Suppository Administer into [...] 24 Hour (Imdur)Indications: Coronary artery disease involving [place] coronary artery of [place] heart without angina pectoris TAKE 1 TABLET [...] as of this encounter (statuses as of 05/14/2023) Active Problems Problem Noted Date Diagnosed Date Encounter for antineoplastic chemotherapy 2022 Malignant neoplasm of left b reast in female, estrogen receptor positive 06/28/2022 Postherpetic neuralgia 06/28/2022 Hiatal hernia 08/07/2021 Schatzki's ring 08/07/2021 S/P angioplasty with stent 11/15/2020 Coronary artery disease invo lving [place] heart without angina pectoris 11/15/2020 Cardiac murmur [...] as of this encounter (statuses as of 05/14/2023) Resolved Problems Problem Noted Date Diagnosed Date [...] as of this encounter (statuses as of 05/14/2023) Immunizations Name Administration Dates Next Due COVID-19 mRNA, LNP-s, No Pre serve, 2-Dose Series (vidCoin) 08/11/2020,07/21/2020 COVID-19, LNP-s, No Preserve , Dusty-sucrose, Ages 12+ (Pfizer) 02/05/2022,08/07/2021 COVID-19, MRNA-LNP, 23-24, P F, 30 MCG/0.3 mL, 12 YRS AND ABOVE, IM (Eltechs-Comirnaty) 05/13/2023 Covid-19, Mrna, Lnp-s, Pf, B ivalent, [...] Former Cigarettes 0.5 40 Smokeless Tobacco: Never Tobacco Cessation:Counseling Given: Not Answered Alcohol Use Standard Drinks/Week Comments Yes 0 [...] Sign Reading Time Taken Comments Blood Pressure 124/52 05/13/2023 1:50 PM EST Pulse 70 05/13/2023 1:50 PM EST Temperature 35.6 C (96 F) 05/13/2023 1:50 PM EST Respiratory Rate 18 05/13/2023 1:50 PM EST Oxygen Saturation 98% 05/13/2023 1:50 PM EST Inhaled Oxygen Concentration - - Weight 74.4 kg (164 lb) 05/13/2023 1:50 PM EST Height - - Body Mass Index 26.47 03/20/2023 11:24 AM EDT documented in this encounter Progress Notes * Valery Urena PA-C - 05/13/2023 2:00 PM EST NEPHROLOGY CLINIC NOTE Nephrology [address] [place] [address] Patient Name: Afua Rosenbaum Patient Active Problem List Diagnosis Code Chronic [...] with stent Z95.820 Coronary artery disease involving [place] heart without angina pectoris I25.10 Cardiac murmur R01.1 Hiatal hernia K44.9 Schatzki's ring K22.2 Malignant neoplasm of left breast in female, estrogen receptor positive C50.912, Z17.0 Postherpetic neuralgia B02.29 Encounter for antineoplastic chemotherapy Z51.11 BACKGROUND: 83 year old female presents for f/u of non proteinuric CKD STAGE 3b worse since 2019 inthe [facility] of care for ruptured AAA. Past Medical history includes CAD s/p CABG and 2 stents 2001, COPD, reformed tobacco abuse since AAA rupture early 2019, osteoporosis, HTN, HL, depression. Long hx of back problems/leg aches she attributes to statin, present since 2002-- uses cane out of house d/t this. Pt had ruptured AAA 07/05/19 s/p emergent endovascular repair [facility] and w/ L retroperitoneal hemorrhage and moderate L hydronephrosis, proximal hydroureter on 08/13 u/s. She needed 2 units pRBC that admission. D/c creatinine 1.0 on 07/16. Her baseline creatinine had been 0.9 in 2017, then 1.0 in 2018. 04/2019 creat was 1.1. Then mid 1.5 w/ peak at 1.8 08/09 and ; down to 1.5 on 08/22. History of R side chest pains intermittently that radiates to her back between her shoulder blades - pain is similar to what she had w/ LA in 2001 in past; Pain can be relieved by pepcid. Admits she often does not tell providers about her symptoms like those above. States was checked many years ago for PAD by Dr Lau and was negative. 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 Left sided Masectomy 08/14/22. Walking also limited by back and knee pain. Using back patches. No nsaids w/ this Home blood pressure checks: yes with cuff NSAID use: No Herbals/supplements: MV, Calcium/Vit D History of stones: No Family history of CKD or ESRD: No Today 05/13/23 Denies any recent hospitalizations, or infections. Reports skin cancer removed from the left hand few wks ago. No longer with chemo tx had 4 sessions last session- November 26 . Continues fu with oncology appt in upcoming month Reports taking gabapentin which she reports has been helpful when inc to twice daily no improvementso went back to once daily. Reports ongoing back pain and is restricting movement and results in her sitting more Patient reports drinking 18 oz of water daily. Does drink some juice throughout the day REVIEW OF SYSTEMS General: + fatigue, Respiratory: No cough,No wheezing, + shortness of breath Cardiovascular:No chest pain, No palpitations, and No syncope, No falls Gastrointestinal: No nausea, vomiting, diarrhea + occasion constipation No blood in stools Urinary: No dysuira, No hematuria. No flank pain Musculoskeletal: + muscle/joint pains-back and leg pain, + left leg edema Skin: No itching All other systems were reviewed and were negative. Current Outpatient Medications Medication Sig Dispense Refill OSCAL 500/200 D-3 500-200 MG-UNIT PO TABS Take 1 Tablet by mouth in the morning. 0 CENTRUM SILVER PO TABS one a day 0 Polyethylene Glycol 3350 17 GM/SCOOP Oral Powder Take 17 g by mouth daily as needed for Constipation. cyclobenzaprine (FLEXERIL) 10 MG Tablet Take 1 Tab by mouth 3 times a day as needed for Muscle spasms. 30 Tab 1 VENTOLIN HFA 108 (90 Base) MCG/ACT inhaler INHALE 2 PUFFS BY MOUTH EVERY 4 HOURS NEEDED FOR COUGH, SHORTNESS OF BREATH OR WHEEZING. 36 g 1 Acetaminophen 325 MG Oral Tablet Take 2 Tablets by mouth every 6 hours as needed for Pain. docusate sodium (COLACE) 100 MG Capsule Take 1 Capsule by mouth every night at bedtime. Phenylephrine-Jackson Butter 0.25-88.44 % Rectal Suppository Administer into the rectum as needed forHemorrhoids. Atenolol 25 MG Oral Tablet (Tenormin) TAKE 1 TABLET BY MOUTH DAILY IN AM 90 Tablet 2 Rosuvastatin Calcium 20 MG Oral Tablet (Crestor) TAKE 1 TABLET BY MOUTH DAILY 90 Tablet 3 Isosorbide Mononitrate ER 30 MG Oral Tablet Extended Release 24 Hour (Imdur) TAKE 1 TABLET BY MOUTHEVERY DAY IN THE MORNING 90 Tablet 1 Ezetimibe 10 MG Oral Tablet (Zetia) TAKE [...] OR CHEW THE TABLET 90 Tablet 1 Gabapentin 100 MG Oral Capsule (Neurontin) Take 1 Capsule by mouth in the morning and 1 Capsule before bedtime. 180 Capsule 1 Clopidogrel Bisulfate 75 MG Oral Tablet (pLAVix) TAKE 1 TABLET BY MOUTH DAILY 90 Tablet 1 Nitroglycerin 0.4 MG Sublingual Tablet Sublingual (Nitrostat) Place 1 Tablet under the tongue as needed. No current facility-administered medications for this visit. PHYSICAL EXAMINATION Last 4 BP Readings: BP Readings from Last 4 Encounters: 05/13/23 124/52 03/31/23 106/55 03/20/23 112/62 02/18/23 106/54 Last 3 Weights: Wt Readings from Last 3 Encounters: 05/13/23 74.4 kg (164 lb) 03/31/23 73.6 kg (162 lb 3.2 oz) 03/20/23 73.5 kg (162 lb) BP 124/52 (BP Site: Right Arm, BP Position: Sitting, BP Cuff Size: Regular) | Pulse 70 | Temp 35.6 C (96 F) | Resp 18 | Wt 74.4 kg (164 lb) | SpO2 98% | BMI 26.47 kg/m | BSA 1.86 m Wt Readings from Last 1 Encounters: 05/13/23 74.4 kg (164 lb) General appearance: alert, no apparent distress. Ambulatory without assistance HEAD: Normocephalic, No masses, lesions, tenderness Respiratory: clear to auscultation, no rhonchi, no wheezes, and no crackles Heart: regular rate and regular rhythm Abdomen: abdomen soft, non-tender, and no CVA tenderness EXTREMITIES: No edema, No cyanosis or clubbing Skin: skin color, texture, turgor are normal NEURO: alert & oriented x 3 with fluent speech, no focal motor/sensory deficits No tremor Patient is a reliable historian of events LABS: Latest Reference Range & Units 09/16/22 13:35 09/23/22 09:25 10/14/22 10:48 11/04/22 11:13 11/25/22 12:20 03/20/23 12:02 Sodium 135 - 146 mmol/L 140 143 143 141 141 143 Potassium 3.5 - 5.1 mmol/L 4.4 4.8 4.4 4.9 4.8 4.6 Chloride 98 - 107 mmol/L 105 107 105 106 106 106 CO2 22 - 32 mmol/L 25 25 26 24 23 27 BUN 6 - 20 mg/dL 23 (H) 20 23 (H) 24 (H) 20 24 (H) Creatinine 0.5 - 1.0 mg/dL 1.4 (H) 1.5 (H) 1.3 (H) 1.4 (H) 1.3 (H) 1.6 (H) Estimated Glomerular Filtration Rate >=60 mL/min 38 (L) 36 (L) 40 (L) 37 (L) 42 (L) 32 (L) Anion Gap 7 - 15 mmol/L 10 11 12 11 12 10 Glucose 70 - 120 mg/dL 121 (H) 135 (H) 134 (H) 131 (H) 156 (H) 94 Calcium 8.4 - 10.2 mg/dL 10.3 (H) 9.5 9.9 10.0 9.2 9.6 Magnesium 1.5 - 2.6 mg/dL 2.1 (H): Data is abnormally high (L): Data is abnormally low Latest Reference Range & Units 08/07/21 08:47 01/10/22 13:13 07/25/22 15:53 Albumin / Creatinine Ratio, Urine <30 mg/g Creat 11 8 ALBUMIN / CREATININE RATIO, URINE Rpt Rpt Protein/ Creatinine Ratio, Urine <150 mg/g 83 66 92 Rpt: View report in Results Review for more information ASSESSMENT/PLAN: The patient's most recent labs (from 1 months ago) were reviewed and the assessment/plan is as follows: Ckd 3B w/ acceptable chemistries and volume status. Renal function with recent decline- no longer with chemo tx- will need to monitor closely Stage 3b chronic kidney disease (HCC) (Primary) - BASIC METABOLIC PANEL; Future; Expected date: 05/13/2023 - URINALYSIS WITH MICROSCOPIC EXAM; Future; Expected date: 05/13/2023 - ALBUMIN / CREATININE RATIO, URINE; Future; Expected date: 05/13/2023 HTN, goal below 130/80 At goal - On acei cont with current dosage Labs placed to repeat renal function given dec range No changes to meds Stressed need to push fluids Avoid medicines like aleve, advil, ibuprofen, aspirin more than 81 mg daily and other NSAIDS which are not good for kidney patients. Take only tylenol (acetaminophen) up to 2000 mg daily as needed for pain or as directed by your primary care provider. Reviewed previous status of kidney function and goals of care. All questions were answered. Check-out note: Fu with With Shivani in 4months Valery Urena PA-C Nephrology [address] [place] [address] documented in this encounter Nursing Notes * Charity Bearden RN - 05/13/2023 1:52 PM EST Follow up visit today. Has finished Chemo for breast CA in November 2022. States she is feeling well but is having a lot of back and leg pain. No recent illness or hospital stays. documented in this encounter Plan of Treatment Upcoming Encounters Date Type Department Care Team (Late st Contact Info) Description 06/06/2023 11:30 AM EST Office Visit Cardiology, [facility] [address] [facility] [place] [address] Guillermo Mejia, [address] [place] [address] 06/12/2023 1:00 PM EST Imaging Radiology [facility] 1st Floor, [place] [address] [place] [address] 06/12/2023 1:30 PM EST Imaging Radiology [facility] [address] [facility] [place] [address] 07/07/2023 11:00 AM EST Laboratory Laboratory [address] [place] [phone] [place] [address] 07/14/2023 2:30 PM EST Office Visit Hematology/Oncology [facility] [address] [facility] [place] [address] Gay Lu MD [address] [place] [address] 08/04/2023 1:00 PM EST Imaging Radiology [address], [place] [address] [place] [address] 08/12/2023 1:40 PM EST Office Visit Family Medicine [address] [place] [phone] Jasson Denney MD [address] [place] [address] [place] [address] 03/31/2024 3:00 PM EDT Office Visit Nephrology [address] [place] [address] Maritza Parrish MD [address] [place] [address] 04/05/2024 1:20 PM EDT Office Visit Dermatology [address] [place] [address] Melanie Frank PA-C [address] [place] [address] [place] [address] Scheduled Orders Name Type Priority Associated Diagnoses Orde r Schedule BASIC METABOLIC PANEL Lab Routine Stage 3b chronic kidney disease (HCC) Expected: 05/13/2023, Expires: 05/13/2024 URINALYSIS WITH MICROSCOPIC EXAM Lab Routine Stage 3b chronic kidney disease (HCC) Expected: 05/13/2023, Expires: 05/13/2024 ALBUMIN / CREATININE RATIO, URINE Lab Routine Stage 3b chronic kidney disease (HCC) Expected: 05/13/2023, Expires: 05/13/2024 Health Maintenance Due Date Last Done Comments Alpha-1 Antitrypsin 1958 DTaP,Tdap,and Td Vaccines (1 - Tdap) 1959 Zoster Vaccines (1 of 2) 1990 *COPD SEVERITY VERIFIED BY PFT 01/02/2018 Depression Screening 08/07/2022 08/07/2021 Albumin/Creatinine Ratio 07/25/2023 023, 08/07/2021, 01/12/2021, Additional history exists CKD PHOS USE SMARTSET 68097 07/25/2023 02/0 02/2023, 01/10/2022, 01/11/2021, Additional history exists O2 ASSESSMENT COMPLETED IN PAST YEAR FOR COPD 08/15/2023 08/14/2022 GFR 09/19/2023 03/20/2023, 11/14, 11/04/2022, Additional history exists CKD HGB USE SMARTSET 21207 03/20/202403/20, 03/20/2023, 11/25/2022, Additional history exists HbA1c [...] this encounter Medical Devices Implanted Type Area Finance Manager Device Identifier Shelf Expiration Date Model / Serial / Lot [place] Excluder Aaa Endoprothesis System-07/07/2019 Implanted:07/07/19 (Quantity not on file) Graft Description:Multiple implant s from system on same day [id number] Cordis Bx Velocity Cardiac Stent-06/02/2002 Implanted:06/02/20 02 (Quantity not on file) Stent Intelomed BX VELOCITY [id number] / / [id number] Cordis Bx Velocity Cardiac Stent-01/03/2003 Implanted:01/04/20 03 (Quantity not on file) Stent CORDIS LEXA VELOCITY [id number] / / [id number] documented as of this encounter Visit Diagnoses Diagnosis Stage 3b chronic kidney disease (HCC)- Primary HTN, goal below 130/80 Unspecified essential hypertension documented in this encounter [...] the patient have Health Care Power of Handbag Operator? No Healthcare Agents on File Name Relationship Healthcare Agent Relationship Communication Gus Rosenbaum Jr. Adult Child Health Care R epresentative (appointed verbally by patient or by statute hierarchy) Care Teams Director Of Professional Services Relationship Specialty Start Date End Date Jasson Denney MD [address] [place] [address] [place] [phone] PCP - General Family Medicine 03/22/16 documented as of this encounter"
--- OUTSIDE RECORDS SUMMARY | 2023-06-24 05:39 | External Medical Summary | Summary of Care ---
Author Name Unknown Organization [facility] Address [address] [facility] [place] [address] Phone [phone] Care Team Providers Care Chain Repairer Name Role Phone Jasson Denney MD Primary Care Provide r Encounter Details Date Type Department Care Team (Late st Contact Info) Description 05/13/2023 3:10 PM EST Immunization Ancillary [place] [place] [address] [facility] Covid19 Vaccine [address] [place] [address] Arrived Allergies Active Allergy Reactions Criticality Noted Date Comments Adhesive Tape 04/11/2006 Latex 06/06/2022 Other reaction(s): rash/itchy documented as of this encounter (statuses as of 05/13/2023) Medications Medication Sig Dispensed Refills Start Date [...] every night at bedtime. 0 07/12/2019 Active Phenylephrine-[place] Butter 0.25-88.44 % Rectal Suppository Administer into [...] 24 Hour (Imdur)Indications: Coronary artery disease involving [place] coronary artery [...] as of this encounter (statuses as of 05/13/2023) Active Problems Problem Noted Date Diagnosed Date [...] as of this encounter (statuses as of 05/13/2023) Resolved Problems Problem Noted Date Diagnosed Date [...] as of this encounter (statuses as of 05/13/2023) Immunizations Name Administration Dates Next Due COVID-19 mRNA, LNP-s, No Pre serve, 2-Dose Series ([employer] Interaction) 08/11/2020,07/21/2020 COVID-19, LNP-s, No Preserve , Dusty-sucrose, Ages 12+ (Pfizer) 02/05/2022,08/07/2021 COVID-19, MRNA-LNP, 23-24, P F, 30 MCG/0.3 mL, 12 YRS AND ABOVE, IM ([facility]) 05/13/2023 Covid-19, Mrna, Lnp-s, Pf, B ivalent, 30 Mcg, IM, 12 yrs and above (Network Game Interaction) 06/11/2022 Pneumococcal Conjugate Vacc, 13 Valent (Prevnar) [...] on file documented as of this encounter Plan of Treatment Upcoming Encounters Date Type Department Care Team (Late st Contact Info) Description 06/06/2023 11:30 AM EST Office Visit Cardiology, [facility] [address] [place] [address] Guillermo Mejia, [address] [place] [address] 06/12/2023 1:00 PM EST Imaging Radiology [facility] 1st [facility] [address] [place] [address] 06/12/2023 1:30 PM EST Imaging Radiology [facility] [address] [facility] [place] [address] 07/07/2023 11:00 AM EST Laboratory Laboratory [address] [place] [phone] [address] [place] [address] 07/14/2023 2:30 PM EST Office Visit Hematology/Oncology [facility] [address] [place] [address] Gay Lu MD [address] [place] [address] 08/04/2023 1:00 PM EST Imaging Radiology [facility]st [facility] [address] [place] [address] 08/12/2023 1:40 PM EST Office Visit Family Medicine [address] [place] [phone] Jasson Denney MD [address] [place] [address] [place] [address] 03/31/2024 3:00 PM EDT Office Visit Nephrology [address] [place] [address] Maritza Parrish MD [address] [place] [address] 04/05/2024 1:20 PM EDT Office Visit Dermatology [address] [place] [address] Melanie Frank PA-C [address] [place] [address] [place] [address] Health Maintenance Due Date Last Done Comments Alpha-1 Antitrypsin 1958 DTaP,Tdap,and Td Vaccines (1 - Tdap) 1959 Zoster Vaccines (1 of 2) 1990 *COPD SEVERITY VERIFIED BY PFT 01/02/2018 Depression Screening 08/07/2022 08/07/2021 Albumin/Creatinine Ratio 07/25/2023 023, 08/07/2021, 01/12/2021, Additional history exists CKD PHOS USE SMARTSET 32566 07/25/20230 02/2023, 01/10/2022, 01/11/2021, Additional history exists O2 ASSESSMENT COMPLETED IN PAST YEAR FOR COPD 08/15/2023 08/14/2022 GFR 09/19/2023 03/20/2023, 11/14, 11/04/2022, Additional history exists CKD HGB USE SMARTSET 54005 03/20/202403/20, 03/20/2023, 11/25/2022, Additional history exists HbA1c [...] this encounter Medical Devices Implanted Type Area Lung Gun Operator Device Identifier Shelf Expiration Date Model / Serial / Lot [place] Excluder Aaa Endoprothesis System-07/07/2019 Implanted:07/07/19 20 (Quantity not on file) Graft Description:Multiple implant s from system on same day [id number] Cordis Bx Velocity Cardiac Stent-06/02/2002 Implanted:06/02/20 02 (Quantity not on file) Stent CORDIS LEXA BX VELOCITY [id number] / / [id number] Cordis Bx Velocity Cardiac Stent-01/03/2003 Implanted:01/04/20 03 (Quantity not on file) Stent CORDIS LEXA VELOCITY [id number] / / [id number] documented as of this encounter Advance Directives Latest Code Status on File Code Status Date Activated Date Inactivated Comments Full Code 08/14/2022 7:04 AM 08/14/2022 5:34 PM This or kt reflects the patients wishes and were consensually agreed upon. Question Answer Comments Discussion of Advance Directives occurred with: Patient Does the patient have a Living Will? No Does the patient have Health Care Power of Handle Bender? No Healthcare Agents on File Name Relationship Healthcare Agent Relationship Communication Gus Rosenbaum Jr. Adult Child Health Care R epresentative (appointed verbally by patient or by statute hierarchy) Care Teams Chain Repairer Relationship Specialty Start Date End Date Jasson Denney MD [address] [place] [address] [place] [phone] PCP - General Family Medicine 03/22/16 documented as of this encounter
--- OUTSIDE RECORDS SUMMARY | 2023-06-24 05:39 | External Medical Summary | Summary of Care ---
Author Name Unknown Organization [facility] Address [address] [facility] [place] [place] [address] Phone [phone] Care Team Providers Care Senior Teller Name Role Phone Jonathan Denney MD Primary Care Provide r Reason for Visit * Reason Comments eRx-Medication Refill Encounter Details Date Type Department Care Team (Late st Contact Info) Description 05/30/2023 Refill Family Medicine [address] [phone] Jonathan Denney MD [address] [place] [address] [place] [address] Coronary artery disease involving [place] coronary artery of [place] heart without angina pectoris; Moderate episode of recurrent major depressive disorder (HCC); Chronic bilateral low back pain without sciatica; HTN, goal below 140/90 Allergies Active Allergy Reactions Criticality Noted Date Comments Adhesive Tape 04/11/2006 Latex 06/06/2022 Other reaction(s): rash/itchy documented as of this encounter (statuses as of 05/30/2023) Medications Medication Sig Dispensed Refills Start Date [...] 07/22/2022 Active Ezetimibe 10 MG Oral Tablet (Zetia)Indicatio [...] 24 Hour (Imdur)Indicatio ns:Coronary artery disease involving [place] coronary artery of [place] heart without angina pectoris TAKE 1 TABLET [...] DAILY IN AM 90 Tablet 2 06/06/2022 3 Discontinued Isosorbide Mononitrate ER 30 MG Oral Tablet Extended Release 24 Hour (Imdur)Indicatio ns:Coronary artery disease involving [place] coronary artery of [place] heart without angina pectoris TAKE 1 TABLET BY MOUTH EVERY DAY IN THE MORNING 90 Tablet 1 11/26/2022 3 Discontinued documented as of this encounter (statuses as of 05/30/2023) Active Problems Problem Noted Date Diagnosed Date Encounter for antineoplastic chemotherapy 2022 Malignant neoplasm of left b reast in female, estrogen receptor positive 06/28/2022 Postherpetic neuralgia 06/28/2022 Hiatal hernia 08/07/2021 Schatzki's ring 08/07/2021 S/P angioplasty with stent 11/15/2020 Coronary artery disease invo lving [place] heart without angina pectoris 11/15/2020 Cardiac murmur [...] as of this encounter (statuses as of 05/30/2023) Resolved Problems Problem Noted Date Diagnosed Date [...] as of this encounter (statuses as of 05/30/2023) Immunizations Name Administration Dates Next Due COVID-19 mRNA, LNP-s, No Pre serve, 2-Dose Series (Trovix) 08/11/2020,07/21/2020 COVID-19, LNP-s, No Preserve , Dusty-sucrose, Ages 12+ (Pfizer) 02/05/2022,08/07/2021 COVID-19, MRNA-LNP, 23-24, P F, 30 MCG/0.3 mL, 12 YRS AND ABOVE, IM (PFIZER-Comirnaty) 05/13/2023 Covid-19, Mrna, Lnp-s, Pf, B ivalent, [...] encounter Miscellaneous Notes * Telephone Encounter - Eben Albright RPh - 05/30/2023 3:19 PM ESTSigned Prescriptions: Disp Refills Isosorbide Mononitrate ER 30 MG Oral Table*90 Tab*1 Sig: TAKE 1 TABLET BY MOUTH EVERY DAY IN THE MORNINGAuthorizing Provider: JONATHAN DENNEY User:EBEN ALBRIGHT Atenolol 25 MG Oral Tablet (Tenormin) 90 Tab*1 Sig: TAKE 1 TABLET BY MOUTH DAILYIN THE MORNINGAuthorizing Provider: JONATHAN DENNEY User: EBEN ALBRIGHT Prescriptions: Disp Refills DULoxetine HCl 30 MG Oral Capsule Delayed *90 Cap*1 Sig: TAKE 1 CAPSULE BY MOUTH EVERY DAYRefused By: EBEN ALBRIGHT for Refusal: Too soon Enalapril Maleate 10 MG Oral Tablet (Vasot*180 Ta*1 Sig: TAKE 2 TABLETS BY MOUTH EVERY DAYRefused By: Russ ALBRIGHT for Refusal: Too soon documented in this encounter Plan of Treatment Upcoming Encounters Date Type Department Care Team (Late st Contact Info) Description 06/06/2023 11:30 AM EST Office Visit Cardiology, [facility] [address] [facility] [place] [address] Guillermo Mejia [address] [place] [address] 06/12/2023 1:00 PM EST Imaging Radiology [address] [place] [address] 06/12/2023 1:30 PM EST Imaging Radiology [address] [place] [address] 07/07/2023 11:00 AM EST Laboratory Laboratory [address] [place] [phone] [place], Lab [address] [place] [address] 07/14/2023 2:30 PM EST Office Visit Hematology/Oncology [facility] [address] [place] [address] Gay Lu MD [address] [place] [address] 08/04/2023 1:00 PM EST Imaging Radiology [address] [place] [address] 08/12/2023 1:40 PM EST Office Visit Family Medicine [address] [place] [phone] Jonathan Denney MD [address] [place] [address] [place] [address] 03/31/2024 3:00 PM EDT Office Visit Nephrology [address] [place] [address] Maritza Parrish MD [address] [place] [address] 04/05/2024 1:20 PM EDT Office Visit Dermatology [address] [place] [address] Melanie Frank PA-C [address] [place] [address] [place] [address] Health Maintenance Due Date Last Done Comments Alpha-1 Antitrypsin 1958 DTaP,Tdap,and Td Vaccines (1 - Tdap) 1959 Zoster Vaccines (1 of 2) 1990 *COPD SEVERITY VERIFIED BY PFT 01/02/2018 Depression Screening 08/07/2022 08/07/2021 Albumin/Creatinine Ratio 07/25/2023 023, 08/07/2021, 01/12/2021, Additional history exists CKD PHOS USE SMARTSET 98648 07/25/2023 02/0 02/2023, 01/10/2022, 01/11/2021, Additional history exists O2 ASSESSMENT COMPLETED IN PAST YEAR FOR COPD 08/15/2023 08/14/2022 GFR 09/19/2023 03/20/2023, 11/14, 11/04/2022, Additional history exists CKD HGB USE SMARTSET 41930 03/20/202403/20, 03/20/2023, 11/25/2022, Additional history exists HbA1c [...] this encounter Medical Devices Implanted Type Area Rn Sane Device Identifier Shelf Expiration Date Model / Serial / Lot [place] Excluder Aaa Endoprothesis System-07/07/2019 Implanted:07/07/19 20 (Quantity not on file) Graft Description:Multiple implant s from system on same day [id number] Cordis Bx Velocity Cardiac Stent-06/02/2002 Implanted:06/02/20 02 (Quantity not on file) Stent CORDIS LEXA BX VELOCITY [id number] / / [id number] Cordis Bx Velocity Cardiac Stent-01/03/2003 Implanted:01/04/20 03 (Quantity not on file) Stent CORDIS LEXA VELOCITY [id number] / / [id number] documented as of this encounter Visit Diagnoses Diagnosis 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 No Healthcare Agents on File Name Relationship Healthcare Agent Relationship Communication Gus Rosenbaum Jr. Adult Child Health Care R epresentative (appointed verbally by patient or by statute hierarchy) Care Teams Senior Teller Relationship Specialty Start Date End Date Jonathan Denney MD [address] [place] [address] [place] [address] PCP - General Family Medicine 03/22/16 documented as of this encounter
--- OUTSIDE RECORDS SUMMARY | 2023-06-24 05:39 | External Medical Summary | Summary of Care ---
Author Name Unknown Organization [facility] Address [address] [facility] [place] [address] Phone [phone] Care Team Providers Care Materials Management Manager Name Role Phone Jasson Denney MD Primary Care Provide r Reason for Visit * Reason Comments eRx-Medication Refill Encounter Details Date Type Department Care Team (Late st Contact Info) Description 02/21/2023 Telephone Hematology/Oncology [facility] DE[facility]OS[facility] - 04/29/23 [facility] [place] [address] Gay Lu MD [address] [facility] [place] [address] eRx-Medication Refill Allergies Active Allergy Reactions Criticality Noted Date Comments Adhesive Tape 04/11/2006 Latex 06/06/2022 Other reaction(s): rash/itchy documented as of this encounter (statuses as of 05/23/2023) Medications Medication Sig Dispensed Refills Start Date End Date Status OSCAL 500/200 D-3 500-200 MG-UNIT PO TABS Take 1 Tablet by mouth in the morning. 0 8 Active CENTRUM SILVER PO TABS one a day 0 8 Active Polyethylene Glycol 3350 17 GM/SCOOP Oral Powder Take 17 g by mouth daily as needed for Constipation. 0 Active cyclobenzaprine (FLEXERIL) 10 MG TabletIndication s:Spasm of back muscles Take 1 Tab by mouth 3 times a day as needed for Muscle spasms. 30 Tab 1 8 Active VENTOLIN HFA 108 (90 Base) MCG/ACT inhaler INHALE 2 PUFFS BY MOUTH EVERY 4 HOURS NEEDED FOR COUGH, SHORTNESS OF BREATH OR WHEEZING. 36 g 1 8 Active Acetaminophen 325 MG Oral Tablet Take 2 Tablets by mouth every 6 hours as needed for Pain. 0 Active docusate sodium (COLACE) 100 MG Capsule Take 1 Capsule by mouth every night at bedtime. 0 0 Active Phenylephrine-[place] Butter 0.25-88.44 % Rectal Suppository Administer into the rectum as needed for Hemorrhoids. 0 Active Nitroglycerin 0.4 MG Sublingual Tablet Sublingual (Nitrostat) Place 1 Tablet under the tongue as needed. 0 1 Active Atenolol 25 MG Oral Tablet (Tenormin)Indica tions:HTN, goal below 140/90 TAKE 1 TABLET BY MOUTH DAILY IN AM 90 Tablet 2 2 Active Rosuvastatin Calcium 20 MG Oral Tablet (Crestor)Indicat ions:Dyslipidemi a, goal LDL below 100 TAKE 1 TABLET BY MOUTH DAILY 90 Tablet 3 3 Active Isosorbide Mononitrate ER 30 MG Oral Tablet Extended Release 24 Hour (Imdur)Indicatio ns:Coronary artery disease involving [place] coronary artery of [place] heart without angina pectoris TAKE 1 TABLET BY MOUTH EVERY DAY IN THE MORNING 90 Tablet 1 3 Active Ezetimibe 10 MG Oral Tablet (Zetia)Indicatio ns:Dyslipidemia, goal to be determined TAKE 1 TABLET BY MOUTH DAILY 90 Tablet 1 3 Active Enalapril Maleate 10 MG Oral Tablet (Vasotec) TAKE 2 TABLETS BY MOUTH EVERY DAY 180 Tablet 1 3 Active DULoxetine HCl 30 MG Oral Capsule Delayed Release Particles (Cymbalta)Indica tions:Moderate episode of recurrent major depressive disorder (HCC),Chronic bilateral low back pain without sciatica TAKE 1 CAPSULE BY MOUTH EVERY DAY 90 Capsule 1 3 Active Pantoprazole Sodium 20 MG Oral Tablet Delayed Release (Protonix) TAKE 1 TABLET BY MOUTH DAILY 1/2 HOUR BEFORE THE FIRST MEAL OF THE DAY. DO NOT CRUSH, SPLIT OR CHEW THE TABLET 90 Tablet 2 3 03/11/20 23 Discontinued Clopidogrel Bisulfate 75 MG Oral Tablet (pLAVix)Indicati ons:HTN, goal below 140/90 TAKE 1 TABLET BY MOUTH DAILY 90 Tablet 2 3 04/02/20 23 Discontinued Dexamethasone 4 MG Oral TabletIndication s:Malignant neoplasm of left breast in female, estrogen receptor positive, unspecified site of breast Take 8 mg (2 tablets) twice for 3 days (starting day before, on the day and day after chemo) 72 Tablet 0 3 03/20/20 23 Discontinued Gabapentin 100 MG Oral Capsule (Neurontin) Take 1 Capsule by mouth at bedtime. 30 Capsule 1 3 03/04/20 23 Discontinued(Ref ill) Azithromycin 250 MG Oral Tablet (Zithromax) Take 2 tabs by mouth on the first day, then 1 tab daily on days two through five 6 Tablet 0 3 02/26/20 23 documented as of this encounter (statuses as of 05/23/2023) Active Problems Problem Noted Date Diagnosed Date Encounter for antineoplastic chemotherapy 2022 Malignant neoplasm of left b reast in female, estrogen receptor positive 06/28/2022 Postherpetic neuralgia 06/28/2022 Hiatal hernia 08/07/2021 Schatzki's ring 08/07/2021 S/P angioplasty with stent 11/15/2020 Coronary artery disease invo lving [place] heart without angina pectoris 11/15/2020 Cardiac murmur [...] as of this encounter (statuses as of 05/23/2023) Resolved Problems Problem Noted Date Diagnosed Date [...] as of this encounter (statuses as of 05/23/2023) Immunizations Name Administration Dates Next Due COVID-19 mRNA, LNP-s, No Pre serve, 2-Dose Series (Fitbit) 08/11/2020,07/21/2020 COVID-19, LNP-s, No Preserve , Dusty-sucrose, Ages 12+ (Fitbit) 02/05/2022,08/07/2021 Covid-19, Mrna, Lnp-s, Pf, B ivalent, [...] Seasonal Influenza, Quadriva lent Hd (Fluzone Hd) 04/04/2022,03/19/2021 Seasonal Influenza, Quadriva lent, No Preserve, IM [...] encounter Miscellaneous Notes * Telephone Encounter - Pranay Peng RN - 02/24/2023 2:21 PM EDTRefused Prescriptions: Disp Refills Dexamethasone 4 MG Oral Tablet (Decadron) 72 Tab*0 Sig: TAKE 2 TABLETS (8MG) BY MOUTH TWICE DAILY FOR 2 DAYS. START THE DAY BEFORE CHEMO AND STOP DAY AFTER Refused By: PRANAY PENG Reason for Refusal: Not indicated * Telephone Encounter - Pranay Peng RN - 02/24/2023 2:20 PM EDT Patient is not on chemotherapy. She does not require decadron at this time. * Telephone Encounter - Maren Davis LPN - 02/24/2023 10:[address] Lu: No remaining days for chemotherapy, you next see patient on 03/31/23. Please advise, kasiawe not refill at this time. documented in this encounter Plan of Treatment Upcoming Encounters Date Type Department Care Team (Late st Contact Info) Description 06/06/2023 11:30 AM EST Office Visit Cardiology, [facility] [address] [facility] [place] [address] Guillermo Mejia, [address] [place] [address] 06/12/2023 1:00 PM EST Imaging Radiology [place] [address] [address] [place] [address] 06/12/2023 1:30 PM EST Imaging Radiology [address] [place] [address] 07/07/2023 11:00 AM EST Laboratory Laboratory [address] [place] [phone] [place], [address] [place] [address] 07/14/2023 2:30 PM EST Office Visit Hematology/Oncology [facility] [address] [facility] [place] [address] Gay Lu MD [address] [place] [address] 08/04/2023 1:00 PM EST Imaging Radiology [address] [place] [address] 08/12/2023 1:40 PM EST Office Visit Family Medicine [address] [place] [phone] Jasson Denney MD [address] [place] [address] [place] [address] 03/31/2024 3:00 PM EDT Office Visit Nephrology [address] [place] [address] Maritza Parrish MD [address] [facility] [place] [address] 04/05/2024 1:20 PM EDT Office Visit Dermatology [address] [place] [address] Melanie Frank PA-C [address] [place] [address] [place] [address] Health Maintenance Due Date Last Done Comments Alpha-1 Antitrypsin 1958 DTaP,Tdap,and Td Vaccines (1 - Tdap) 1959 Zoster Vaccines (1 of 2) 1990 *COPD SEVERITY VERIFIED BY PFT 01/02/2018 Depression Screening 08/07/2022 08/07/2021 Albumin/Creatinine Ratio 07/25/2023 023, 08/07/2021, 01/12/2021, Additional history exists CKD PHOS USE SMARTSET 22042 07/25/2023 020 02/2023, 01/10/2022, 01/11/2021, Additional history exists O2 ASSESSMENT COMPLETED IN PAST YEAR FOR COPD 08/15/2023 08/14/2022 GFR 09/19/2023 03/20/2023, 11/14, 11/04/2022, Additional history exists CKD HGB USE SMARTSET 58565 03/20/202403/20, 03/20/2023, 11/25/2022, Additional history exists HbA1c [...] this encounter Medical Devices Implanted Type Area Computer Hardware Technician Device Identifier Shelf Expiration Date Model / Serial / Lot [place] Excluder Aaa Endoprothesis System-07/07/2019 Implanted:07/07/19 20 (Quantity not on file) Graft Description:Multiple implant s from system on same day [id number] Cordis Bx Velocity Cardiac Stent-06/02/2002 Implanted:06/02/20 02 (Quantity not on file) Stent CORDIS LEXA BX VELOCITY [id number] / / [id number] Cordis Bx Velocity Cardiac Stent-01/03/2003 Implanted:01/04/20 03 (Quantity not on file) Stent CORDIS LEXA VELOCITY [id number] / / [id number] documented as of this encounter Visit Diagnoses Diagnosis Malignant neoplasm of left breast in female, estrogen receptor positive, unspecified site of breast documented in this encounter Advance Directives Latest [...] the patient have Health Care Power of Switchbox Assembler? No Healthcare Agents on File Name Relationship Healthcare Agent Relationship Communication Gus Rosenbaum Jr. Adult Child Health Care R epresentative (appointed verbally by patient or by statute hierarchy) Care Teams Materials Management Manager Relationship Specialty Start Date End Date Jasson Denney MD [address] [place] [address] [place] [phone] PCP - General Family Medicine 03/22/16 documented as of this encounter
--- OUTSIDE RECORDS SUMMARY | 2023-06-24 05:40 | External Medical Summary ---
Author Name Unknown Address Unknown Organization K01:[facility] - [address] [place] [address] Laboratory Report Ordering Provider Test Date Status LYNN VELIZ 03/20/2023 12:02:32 Final Observation Date Value Abnormality Reference (Units ) Status Vitamin B12 03/20/2023 12:02:32 [phone] (pg/mL) Final Performing Location [facility] - [address] [place] [address]
--- OUTSIDE RECORDS SUMMARY | 2023-06-24 05:40 | External Medical Summary | Summary of Care ---
Author Name Unknown Organization [facility] Address [address] [facility] [place] [address] Phone [phone] Care Team Providers Care Forder Operator Name Role Phone Jasson Denney MD Primary Care Provide r Reason for Referral * Evaluate & Treat - Unlimited Visits (Within 10 days (routine)) - Authorized Specialty Diagnoses / Procedures Referred By Radha romero Referred To Contact Dermatology Diagnoses Squamous cell cancer of skin of left hand Melanie Frank PA-C [address] [place] [address] [place] [address] Referral ID Status Reason Start Date Expiration Date Visits Requested Visits Authorized [id number] Authorized Specialty Services Required 03/18/2023 1 1 Question Answer Referral Priority Within 10 days (routine) Are you referring the patient for Mohs Surgery and have a current positive skin cancer biopsy result? Yes Type of Procedure MOHS Surgery Comments A. Skin, L dorsal hand, shave: Invasive well-differentiated squamous cell carcinoma Reason for Visit * Reason Onset Date Comments Appointment 03/18/2023 Encounter Details Date Type Department Care Team Description 03/18/2023 Telephone Dermatology Yair Garcia [address] [place] [address] [place] [address] Melanie Frank PA-C [address] [place] [address] [place] [address] Appointment Allergies Active Allergy Reactions Severity Noted Date Comments Adhesive Tape 04/11/2006 Latex 06/06/2022 Other reaction(s): rash/itchy documented as of this encounter (statuses as of 03/18/2023) Medications Medication Sig Dispensed Refills Start Date [...] every night at bedtime. 0 07/12/2019 Active Phenylephrine-[place] Butter 0.25-88.44 % Rectal Suppository Administer into [...] MOUTH DAILY 90 Tablet 3 07/22/2022 Active Clopidogrel Bisulfate 75 MG Oral Tablet (pLAVix)Indications :HTN, goal below 140/90 TAKE 1 TABLET BY MOUTH DAILY 90 Tablet 2 07/22/2022 Active Dexamethasone 4 MG Oral TabletIndications:M alignant neoplasm of left breast in female, estrogen receptor positive, unspecified site of breast Take 8 mg (2 tablets) twice for 3 days (starting day before, on the day and day after chemo) 72 Tablet 0 09/09/2022 Active Isosorbide Mononitrate ER 30 MG Oral Tablet Extended Release 24 Hour (Imdur)Indications: Coronary artery disease involving [place] coronary artery of [place] heart without angina pectoris TAKE 1 TABLET [...] EVERY DAY 90 Capsule 1 01/31/2023 Active Gabapentin 100 MG Oral Capsule (Neurontin) Take 1 Capsule by mouth at bedtime. 90 Capsule 1 03/04/2023 Active Pantoprazole Sodium 20 MG Oral Tablet Delayed Release (Protonix) TAKE 1 TABLET BY MOUTH DAILY 1/2 HOUR BEFORE THE FIRST MEAL OF THE DAY. DO NOT CRUSH, SPLIT OR CHEW THE TABLET 90 Tablet 1 2023 Active documented as of this encounter (statuses as of 03/18/2023) Active Problems Problem Noted Date Encounter for antineoplastic chemotherap y 09/10/2022 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, estrogen receptor positive 06/28/2022 Postherpetic neuralgia 06/28/2022 Hiatal hernia 08/07/2021 Schatzki's ring 08/07/2021 S/P angioplasty with stent 11/15/2020 Coronary artery disease involving [place] heart without angina pectoris 11/15/2020 Cardiac murmur [...] Quit 2019 Dyslipidemia, goal LDL below 70 05/25/20 09 Overview: Per Lipid Taxonomy. HTN, goal below 130/80 04/21/2009 Overview: Modified per HTN Taxonomy. 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 Solitary cyst of breast 12/31/19 Overview: Breast Cyst Impaired glucose tolerance 07/19 documented as of this encounter (statuses as of 03/18/2023) Immunizations Name Administration Dates Next Due COVID-19 mRNA, LNP-s, No Pre serve, 2-Dose Series (Kromatid) 08/11/2020,07/21/2020 COVID-19, LNP-s, No Preserve , Dusty-sucrose, [...] encounter Miscellaneous Notes * Telephone Encounter - Melanie Frank PA-C - 03/18/2023 12:15 PM EDT Spoke to pt regarding bx result. SCC, plan on Mohs in [place]. Pt is aware she will be calledto schedule the appt. Melanie Frank S, SURAJ A. Skin, L dorsal hand, shave: Invasive well-differentiated squamous cell carcinoma documented in this encounter Plan of Treatment Upcoming Encounters Date Type Specialty Care Team Description 03/20/2023 Office Visit Family Medicine Imani Hart PA-C [address] [place] [address] [place] [address] 03/31/2023 Office Visit Hematology Oncology Gay Lu MD [address] [place] [address] 04/29/2023 Office Visit Cardiology Guillermo Mejia, [address] [place] [address] 05/07/2023 Office Visit Nephrology Valery Urena PA-C [address] [place] [address] 06/12/2023 Imaging Radiology 08/04/2023 Imaging Radiology 08/12/2023 Office Visit Family Medicine Jasson Denney MD [address] [place] [address] [place] [address] 04/05/2024 Office Visit Dermatology Melanie Frank PA-C [address] [place] [address] [place] [address] Scheduled Referrals Name Type Priority Associated Diagnoses [...] 2023 06/11/2022, 02/05/2022, 08/07/2021, Additional history exists Influenza Vaccine (FLU shot) (#1) 2023 04/04/2022, 03/19/2021, 04/06/2020, Additional history exists HbA1c 03/20/2023 03/20/2022, 10/14, 05/02/2020, Additional history exists GFR 05/27/2023 11/25/2022, 10/15, 10/14/2022, Additional history exists Albumin/Creatinine Ratio 07/25/2023 023, 08/07/2021, 01/12/2021, Additional history exists CKD PHOS USE SMARTSET 23693 07/25/2023 02/0 02/2023, 01/10/2022, 01/11/2021, Additional history exists O2 ASSESSMENT COMPLETED IN PAST YEAR FOR COPD 08/15/2023 08/14/2022 CKD HGB USE SMARTSET 60083 11/26/202311/25, 11/25/2022, 11/04/2022, Additional history exists DXA Scan 05/31/2026 05/31/2019, 12/09/2006 Pneumococcal Vaccine: 65+ Years Completed 08/19/2016, 07/18/2015, 04/11/2006 GARDASIL-HPV IMMUNIZATION SERIES Aged Out No longer eligible based on patient's age to complete this topic Hepatitis B Aged Out No longer eligi ble based on patient's age to complete this topic MENINGOCOCCAL (MENACTRA/MENVEO) Aged Out No longer eligible based on patient's age to complete this topic documented as of this encounter Medical Devices Implanted Type Area Receiving Associate Device Identifier Shelf Expiration Date Model / Serial / Lot [place] Excluder Aaa Endoprothesis System-07/07/2019 Implanted:07/07/19 20 (Quantity not on file) Graft Description:Multiple implant s from system on same day [id number] Cordis Bx Velocity Cardiac Stent-06/02/2002 Implanted:06/02/20 02 (Quantity not on file) Stent CORDIS LEXA BX VELOCITY [id number] / / [id number] Cordis Bx Velocity Cardiac Stent-01/03/2003 Implanted:01/04/20 03 (Quantity not on file) Stent CORDIS LEXA VELOCITY [id number] / / [id number] documented as of this encounter Visit Diagnoses [...] the patient have Health Care Power of Master Printer? No Healthcare Agents on File Name Relationship Healthcare Agent Relationship Communication Gus Rosenbaum Jr. Adult Child Health Care R epresentative (appointed verbally by patient or by statute hierarchy) Care Teams Forder Operator Relationship Specialty Start Date End Date Jasson Denney MD [address] [place] [address] [place] [address] PCP - General Family Medicine 03/22/16 documented as of this encounter
--- OUTSIDE RECORDS SUMMARY | 2023-06-24 05:40 | External Medical Summary | Summary of Care ---
Author Name Unknown Organization [facility] Address [address] [facility] [place] [address] Phone [phone] Care Team Providers Care Surgical Aide Name Role Phone Jasson Denney MD Primary Care Provide r Reason for Visit * Reason Comments Follow Up Lesion left hand x m onths, denies pain Encounter Details Date Type Department Care Team Description 03/12/2023 Office Visit Dermatology [address] [place] [id number] Melanie Frank PA-C [address] [place] [address] [place] [address] Hx of nonmelanoma skin cancer*; Neoplasm of uncertain behavior of skin Allergies Active Allergy Reactions Severity Noted Date Comments Adhesive Tape 04/11/2006 Latex 06/06/2022 Other reaction(s): rash/itchy documented as of this encounter (statuses as of 03/13/2023) Medications Medication Sig Dispensed Refills Start Date [...] every night at bedtime. 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 HTN, goal below 130/80 04/21/2009 Overview: Modified per HTN Taxonomy. Chronic ischemic heart disease Overview: with 2 stents documented as of this encounter (statuses as of 03/13/2023) Resolved Problems Problem Noted Date Resolved Date [...] as of this encounter (statuses as of 03/13/2023) Immunizations Name Administration Dates Next Due COVID-19 mRNA, LNP-s, No Pre serve, 2-Dose Series (Osmopure) 08/11/2020,07/21/2020 COVID-19, LNP-s, No Preserve , Dusty-sucrose, Ages 12+ (Pfizer) 02/05/2022,08/07/2021 Covid-19, Mrna, Lnp-s, Pf, B ivalent, 30 Mcg, IM, 12 yrs and above (Osmopure) 06/11/2022 Pneumococcal Conjugate Vacc, 13 Valent (Prevnar) 08/19/2016 Pneumococcal Polysaccharide PPV23 (Pneumovax) 07/18/2015,04/11/2006 Season Influenza, Quad, PF, Adjuvanted, 65+ Yrs, IM (FLUAD) 04/06/2020 Seasonal Influenza Virus Vac cine, Unspecified Formulation 04/06/2020,03/25/2019,03/18/2018,03/03,03/22/2016,04/09/2007,04/11/2006 Seasonal Influenza, PF, 6 mo ns & Above, IM , (Flulaval) 03/18/2018 Seasonal Influenza, Quadriva lent Hd (Fluzone [...] on file documented as of this encounter Patient Instructions * Patient Instructions* Melanie Frank PA-C - 03/12/2023 1:41 PM EDT SUNSCREEN USE AND SUN PROTECTION: 1. The best protection is sun avoidance. Seek shade if you can, especially between 10am to 4pm (peak sun hours). 2. Use sunscreen with an SPF (Sun Protection Factor - the number on most sunscreen bottles) of 30 or more that protects from Ultraviolet A (UVA) and Ultraviolet B (UVB) wavelength light (strongly recommend SPF 50). This is referred to as broad spectrum sun protection because it protects from most wa velengths in both spectrums of UVA and UVB light. Unfortunately, even though the protection is broad it is not complete, therefore making sun avoidance the best protection. UVB and UVA have both beenimplicated in causing skin cancers. Older sunscreens only protected from UVB and sunscreens with added UVA protection should contain Titanium dioxide, Zinc oxide, or Avobenzone. Other oil free, non-comedogenic lotion with SPF 30 or greater is fine. 3. Use sun protection if outside for 15 minutes or more. Apply 20-30 minutes before going out and reapply every 1-2 hours. No sunscreen is truly water ''proof'' and it will wash away with sweat, swimming and rubbing. 4. Wear tightly woven, loose fitting (cooler) long sleeved clothing, UV-blocking sun glasses (eyes need protection as well) and wide-brimmed hatwear (no straw hats with holes because light still getsthrough). Strongly recommended *Neutrogena Pure and Free Baby SPF 60 (have separate face and body lotions) orCeraVe AM facial lotion (with SPF 30). If looking for non toxic alternatives-look for non-hollie particle zinc. Product examples; Think sport, Think baby, Boy, [employer], Viveve, [place] baby. "Baby" products can be used for all ages. documented in this encounter Progress Notes * David Hoffman MD - 03/13/2023 3:37 PM EDT I have seen and examined the patient via teledermatology review of chart note and photos with Melanie Frank PA-C. I have reviewed and agree with the assessment and plan. * Melanie Frank PA-C - 03/12/2023 1:39 PM EDT SUBJECTIVE: History of Present Illness: Afua Rosenbaum is a 83 year old female seen today for follow up of lesion. Previous office visit: 03/20/2022 Last attempted treatments include: NONE Lesion on L hand, present for months. Seems to be improving, not painful anymore. Initially it was red and there was purulent drainage expressed after picking central scab off. REVIEW OF SYSTEMS: SKIN: No other new or changing moles. HEME/LYMPH: No new or enlarging lumps or bumps. CONSTITUTIONAL: No nausea, vomiting, fevers, chills, diarrhea. No recent unintended weight loss, night sweats, appetite or malaise. RESP: negative MSK/EXT: Negative or as per HPI GI: negative CV: Negative or as per HPI Rest of systems are negative or as per HPI SKIN CANCER HX: basal cell carcinoma (R infraorbital region 09/2018), nonmelanoma skin cancer-names unknown (on central chest and chin, was many years ago) Reviewed, same day as visit, 0 [facility] Dermatology lab work(s)/pathology report(s) as well as those sent by referring provider prior to seeing pt. MEDICA TIONS: Current Outpatient Medications Medication Sig Dispense Refill [...] Capsule by mouth every night at bedtime. Phenylephrine-Agency Butter 0.25-88.44 % Rectal Suppository Administer into the rectum as needed forHemorrhoids. Nitroglycerin 0.4 MG Sublingual Tablet Sublingual (Nitrostat) Place 1 Tablet under the tongue as needed. Atenolol 25 MG Oral Tablet (Tenormin) TAKE 1 TABLET BY MOUTH DAILY IN AM 90 Tablet 2 Rosuvastatin Calcium 20 MG Oral Tablet (Crestor) TAKE 1 TABLET BY MOUTH DAILY 90 Tablet 3 Clopidogrel Bisulfate 75 MG Oral Tablet (pLAVix) TAKE 1 TABLET BY MOUTH DAILY 90 Tablet 2 Dexamethasone 4 MG Oral Tablet Take 8 mg (2 tablets) twice for 3 days (starting day before, on the day and day after chemo) 72 Tablet 0 Isosorbide Mononitrate ER 30 MG Oral Tablet [...] BY MOUTH EVERY DAY 90 Capsule 1 Gabapentin 100 MG Oral Capsule (Neurontin) Take 1 Capsule by mouth at bedtime. 90 Capsule 1 Pantoprazole Sodium 20 MG Oral Tablet Delayed Release (Protonix) TAKE 1 TABLET BY MOUTH DAILY 1/2 HOUR BEFORE THE FIRST MEAL OF THE DAY. DO NOT CRUSH, SPLIT OR CHEW THE TABLET 90 Tablet 1 No current facility-administered medications for this visit. ALLERG IES: Adhesive tape and Latex OBJECT VIKASH: GEN: alert, no distress, appears oriented, pleasant, and cooperative. SKIN: Detailed exam of bilateral hand and fingernails completed: 1A. L dorsal hand-1.4x1.0cm pink firm centrally depressed nodular plaque. ASSESS MENT/PLAN: 1A. KA on L dorsal hand-Tangential biopsy of the lesion noted above to confirm diagnosis. The procedure, risks (to include but not limited to pain, bleeding, infection and scarring), benefits, alternatives and expected outcomes were discussed with the patient and verbal consent was obtained. Time out called. Patient identified, procedure verified, site identified and verified. Patient and staff present in agreement. Area prepped with alcohol and anesthetized using 3cc of Ropivicaine 0.2% concentration. Tangential biopsy of lesion performed. 20% AlCl and bandaging applied. Specimen sent to pathology. Patient instructed in routine post-op care and given a wound care pamphlet. Patient alone today. Photo(s) of #1 taken, pt verbally consented to having photo(s) taken. Follow-up: 04/08 for full skin exam Contact patient at home Ok to leave results on message: Yes Able to speak to none Patient Phone Numbers Applicable photos (if any) and chart reviewed by Dr. David Hoffman. Presumed diagnoses, expected natural histories, and management options discussed with the patient at length. Questions were addressed and anticipatory guidance provided. They were instructed to contact me if additional questions, concerns, or problems develop in the interim. -There were no barriers to learning and no other pain was related to today's visit. The patient and/or person accompanying patient demonstrates understanding of the visit and treatment. Melanie Frank PA-C 03/12/2023 1:39 PM Ref: IMANI BAILEY[[id number]] [address] [place] [address] [place] [address] (office) [phone] (fax) PCP: JASSON DENNEY [address] [place] [address] [place] [address] [phone] documented in this encounter Nursing Notes * Sondra Silva LPN - 03/12/2023 1:38 PM EDT Patient identified by full name and date of . Chief Complaint Patient presents with Follow Up Lesion left hand x months, denies pain documented in this encounter Plan of Treatment Upcoming Encounters Date Type Specialty Care Team Description 03/20/2023 Office Visit Family Medicine Imani Bailey PA-C [address] [place] [address] [place] [phone] 03/31/2023 Office Visit Hematology Oncology Gay Lu MD [address] [place] [address] 04/29/2023 Office Visit Cardiology Guillermo Mejia, [address] [place] [address] 05/07/2023 Office Visit Nephrology Valery Urena PA-C [address] [place] [address] 06/12/2023 Imaging Radiology 08/04/2023 Imaging Radiology 08/12/2023 Office Visit Family Medicine Jasson Denney MD [address] [place] [address] [place] [address] 04/05/2024 Office Visit Dermatology Melanie Frank PA-C [address] [place] [address] [place] [address] Pending Results Name Type Priority Associated Diagnoses Date /Time SURGICAL PATHOLOGY Pathology Routine Neoplasm of uncertain behavior of skin 03/12/2023 1:46 PM EDT Health Maintenance Due Date Last Done Comments Alpha-1 Antitrypsin 1958 DTaP,Tdap,and Td Vaccines (1 - Tdap) 1959 Zoster Vaccines (1 of 2) 1990 *COPD SEVERITY VERIFIED BY PFT 01/02/2018 Depression Screening 08/07/2022 08/07/2021 Influenza Vaccine (FLU shot) (#1) 2023 04/04/2022, 03/19/2021, 04/06/2020, Additional history exists HbA1c 03/20/2023 03/20/2022, 10/14, 05/02/2020, Additional history exists GFR 05/27/2023 11/25/2022, 10/15, 10/14/2022, Additional history exists Albumin/Creatinine Ratio 07/25/2023 023, 08/07/2021, 01/12/2021, Additional history exists CKD PHOS USE SMARTSET 58124 07/25/2023 02/0 02/2023, 01/10/2022, 01/11/2021, Additional history exists O2 ASSESSMENT COMPLETED IN PAST YEAR FOR COPD 08/15/2023 08/14/2022 CKD HGB USE SMARTSET 04818 11/26/202311/25, 11/25/2022, 11/04/2022, Additional history exists DXA Scan 05/31/2026 05/31/2019, 12/09/2006 Pneumococcal Vaccine: 65+ Years Completed 08/19/2016, 07/18/2015, 04/11/2006 COVID-19 Vaccine Completed 06/11/2022, , 08/07/2021, Additional history exists GARDASIL-HPV IMMUNIZATION SERIES Aged Out No longer eligible based on patient's age to complete this topic Hepatitis B Aged Out No longer eligi ble based on patient's age to complete this topic MENINGOCOCCAL (MENACTRA/MENVEO) Aged Out No longer eligible based on patient's age to complete this topic documented as of this encounter Medical Devices Implanted Type Area Quality Control Industrial Engineer Device Identifier Shelf Expiration Date Model / Serial / Lot [place] Excluder Aaa Endoprothesis System-07/07/2019 Implanted:07/07/19 20 (Quantity not on file) Graft Description:Multiple implant s from system on same day [id number] Cordis Bx Velocity Cardiac Stent-06/02/2002 Implanted:06/02/20 02 (Quantity not on file) Stent CORDIS LEXA BX VELOCITY [id number] / / [id number] Cordis Bx Velocity Cardiac Stent-01/03/2003 Implanted:01/04/20 03 (Quantity not on file) Stent CORDIS LEXA VELOCITY [id number] / / [id number] documented as of this encounter Procedures Procedure Name Priority Date/Time Associated Diagnosis Comments DERM IMAGE (SITE) Routine 03/12/2023 Hx of nonmelanoma skin cancer Neoplasm of uncertain behavior of skin documented in this encounter Results * DERM IMAGE (SITE) (03/12/2023) 03/12/2023 Melanie Frank PA-C DIGITAL PHOTOG ANAND documented in this encounter Visit Diagnoses Diagnosis Hx of nonmelanoma skin cancer- Primary Personal history of other malignant neoplasm of skin Neoplasm of uncertain behavior of skin documented in this encounter Advance Directives Latest [...] the patient have Health Care Power of Physical Fitness Teacher? No Healthcare Agents on File Name Relationship Healthcare Agent Relationship Communication Gus Rosenbaum Jr. Adult Child Health Care R epresentative (appointed verbally by patient or by statute hierarchy) Care Teams Surgical Aide Relationship Specialty Start Date End Date Jasson Denney MD [address] [place] [address] [place] [id number] PCP - General Family Medicine 03/22/16 documented as of this encounter
--- OUTSIDE RECORDS SUMMARY | 2023-06-24 05:40 | External Medical Summary | Summary of Care ---
Author Name Unknown Organization [facility] Address [address] [facility] [place] [address] Phone [phone] Care Team Providers Care Juice Bar Team Member Name Role Phone Jasson Denney MD Primary Care Provide r Reason for Visit * Reason Onset Date Comments Re-Check Medication Administration 03/20/2023 Flu an d/or Pneumo Inj Encounter Details Date Type Department Care Team Description 03/20/2023 Office Visit Family Medicine [address] [phone] Imani Hart PA-C [address] [place] [address] [place] [address] Chronic bilateral low back pain with bilateral sciatica*; Need for prophylactic vaccination and inoculation against influenza; Prediabetes; Encounter for long-term (current) use of medications Allergies Active Allergy Reactions Severity Noted Date Comments Adhesive Tape 04/11/2006 Latex 06/06/2022 Other reaction(s): rash/itchy documented as of this encounter (statuses as of 03/20/2023) Medications Medication Sig Dispensed Refills Start Date [...] MOUTH DAILY 90 Tablet 3 3 Active Clopidogrel Bisulfate 75 MG Oral Tablet (pLAVix)Indicati ons:HTN, goal below 140/90 TAKE 1 TABLET BY MOUTH DAILY 90 Tablet 2 3 Active Isosorbide Mononitrate ER 30 MG Oral Tablet Extended Release 24 Hour (Imdur)Indicatio ns:Coronary artery disease involving [place] coronary artery of [place] heart without angina pectoris TAKE 1 TABLET [...] OR CHEW THE TABLET 90 Tablet 1 3 Active Gabapentin 100 MG Oral Capsule (Neurontin)Indic ations:Chronic bilateral low back pain with bilateral sciatica Take 1 Capsule by mouth in the morning and 1 Capsule before bedtime. 180 Capsule 1 3 Active Dexamethasone 4 MG Oral TabletIndication s:Malignant neoplasm of left breast in female, estrogen receptor positive, unspecified site of breast Take 8 mg (2 tablets) twice for 3 days (starting day before, on the day and day after chemo) 72 Tablet 0 3 03/20/20 23 Discontinued Gabapentin 100 MG Oral Capsule (Neurontin) Take 1 Capsule by mouth at bedtime. 90 Capsule 1 3 03/20/20 23 Discontinued(Med ication/Dose Changed) documented as of this encounter (statuses as of 03/20/2023) Active Problems Problem Noted Date Encounter for antineoplastic chemotherap y 09/10/2022 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, estrogen receptor positive 06/28/2022 Postherpetic neuralgia 06/28/2022 Hiatal hernia 08/07/2021 Schatzki's ring 08/07/2021 S/P angioplasty with stent 11/15/2020 Coronary artery disease involving [place] heart without angina pectoris 11/15/2020 Cardiac murmur [...] as of this encounter (statuses as of 03/20/2023) Resolved Problems Problem Noted Date Resolved Date [...] as of this encounter (statuses as of 03/20/2023) Immunizations Name Administration Dates Next Due COVID-19 mRNA, LNP-s, No Pre serve, 2-Dose Series ([employer]) 08/11/2020,07/21/2020 COVID-19, LNP-s, No Preserve , Dusty-sucrose, Ages 12+ (Our[employer]) 02/05/2022,08/07/2021 Covid-19, Mrna, Lnp-s, Pf, B ivalent, [...] Sign Reading Time Taken Comments Blood Pressure 112/62 03/20/2023 11:24 AM EDT Pulse 73 03/20/2023 11:24 AM EDT Temperature 36.1 C (97 F) 03/20/2023 11:24 AM EDT Respiratory Rate - - Oxygen Saturation 95% 03/20/2023 11:24 AM EDT Inhaled Oxygen Concentration - - Weight 73.5 kg (162 lb) 03/20/2023 11:24 AM EDT Height 167.6 cm (5' 6") 03/20/2023 11:24 AM EDT Body Mass Index 26.15 03/20/2023 11:24 AM EDT documented in this encounter Progress Notes * Imani Hart PA-C - 03/20/2023 11:33 AM EDT Images from the original note were not included. History of Present Illness Afua Rosenbaum is a 83 year old female that presents for Re-Check and Medication Administration (Flu and/or Pneumo Inj) Nursing Notes: Pamela Gann LPN 03/20/23 1128 Signed Recheck of Gabapentin- was working for the first 2 weeks Now doesn't help so much anymore. HPI: Afua Rosenbaum is a 83 year old female presenting to the office today for recheck on gabapentin. She was feeling really well initially on the gabapentin. She was cutting grass and baking cookies. She has had some increased pain again with her back and standing for a long time. She doesn't feel as bad as previously, but not as good as the initial couple weeks. She has not had any side effects. She has lots of follow up appointment coming up otherwise. Current Outpatient Medications Medication Instructions Acetaminophen (TYLENOL) 650 mg, Oral, Q6H PRN Atenolol 25 MG Oral Tablet (Tenormin) TAKE 1 TABLET BY MOUTH DAILY IN AM CENTRUM SILVER PO TABS one a day Clopidogrel Bisulfate 75 MG Oral Tablet (pLAVix) TAKE 1 TABLET BY MOUTH DAILY cyclobenzaprine (FLEXERIL) 10 mg, Oral, TID PRN Docusate Sodium (COLACE) 100 mg, Oral, QHS DULoxetine HCl 30 MG Oral Capsule Delayed Release Particles (Cymbalta) TAKE 1 CAPSULE BY MOUTH EVERY DAY Enalapril Maleate 10 MG Oral Tablet (Vasotec) TAKE 2 TABLETS BY MOUTH EVERY DAY Ezetimibe 10 MG Oral Tablet (Zetia) TAKE 1 TABLET BY MOUTH DAILY Gabapentin (NEURONTIN) 100 mg, Oral, HS Isosorbide Mononitrate ER 30 MG Oral Tablet Extended Release 24 Hour (Imdur) TAKE 1 TABLET BY MOUTHEVERY DAY IN THE MORNING Nitroglycerin (NITROSTAT) 0.4 mg, Sublingual, PRN OSCAL 500/200 D-3 500-200 MG-UNIT PO TABS Take 1 Tablet by mouth in the morning. Pantoprazole Sodium 20 MG Oral Tablet Delayed Release (Protonix) TAKE 1 TABLET BY MOUTH DAILY 1/2 HOUR BEFORE THE FIRST MEAL OF THE DAY. DO NOT CRUSH, SPLIT OR CHEW THE TABLET Phenylephrine-Tilly Butter 0.25-88.44 % Rectal Suppository Rectal, PRN Polyethylene Glycol 3350 (MIRALAX) 17 g, Oral, DAILY PRN rosuvastatin (CRESTOR) 20 mg, Oral, Daily(AM) VENTOLIN HFA 108 (90 Base) MCG/ACT inhaler INHALE 2 PUFFS BY MOUTH EVERY 4 HOURS NEEDED FOR COUGH, SHORTNESS OF BREATH OR WHEEZING. Med list reviewed by me today. Physical Exam Vitals: 03/20/23 1124 Temp: 36.1 C (97 F) Pulse: 73 SpO2: 95% BP: 112/62 BMI: 26.16 BP Readings from Last 3 Encounters: 03/20/23 112/62 02/18/23 106/54 12/11/22 109/61 Physical exam: General: Well-Developed. Well appearing. No acute distress. HENT: Normocephalic. Atraumatic. Hearing normal. Psych: Mood and affect normal. I have reviewed the following results: CMP, Lipid Panel, and CBC Assessment and Plan Chronic bilateral low back pain with bilateral sciatica Increase to twice daily, but if she becomes tired, can switch both capsules to bedtime. She agreed. - Gabapentin 100 MG Oral Capsule (Neurontin); Take 1 Capsule by mouth in the morning and 1 Capsule before bedtime. Need for prophylactic vaccination and inoculation against influenza - INFLUENZA VACC, QUAD, HIGH DOSE (FLUZONE HD) Prediabetes - HEMOGLOBIN A1C; Future Encounter for long-term (current) use of medications - VITAMIN B12; Future Wrap-Up F/U as scheduled or sooner PRN documented in this encounter Nursing Notes * Pamela Gann LPN - 03/20/2023 11:24 AM EDT Recheck of Gabapentin- was working for the first 2 weeks Now doesn't help so much anymore. documented in this encounter Plan of Treatment Upcoming Encounters Date Type Specialty Care Team Description 03/31/2023 Office Visit Hematology Oncology Gay Lu MD [address] [place] [address] 04/07/2023 Office Visit Dermatology Walter Sr MD [address] [place] [address] 04/29/2023 Office Visit Cardiology Guillermo Mejia, DO [address] [place] [address] 05/07/2023 Office Visit Nephrology Valery Urena PA-C [address] [place] [address] 06/12/2023 Imaging Radiology 06/12/2023 Imaging Radiology 08/04/2023 Imaging Radiology 08/12/2023 Office Visit Family Medicine Jasson Denney MD [address] [place] [address] [place] [address] 04/05/2024 Office Visit Dermatology Melanie Frank PA-C [address] [place] [address] [place] [address] Pending Results Name Type Priority Associated Diagnoses Date /Time HEMOGLOBIN A1C Lab Routine Prediabetes 03/20/2023 12:02 PM EDT VITAMIN B12 Lab Routine Encounter for long-term (current) use of medications 03/20/2023 12:02 PM EDT Scheduled Orders Name Type Priority Associated Diagnoses Orde r Schedule HEMOGLOBIN A1C Lab Routine Prediabetes Expected: 03/20/2023 (Approximate), Expires: 03/19/2024 VITAMIN B12 Lab Routine Encounter for long-term (current) use of medications Expected: 03/20/2023 (Approximate), Expires: 03/19/2024 Health Maintenance Due Date Last Done Comments Alpha-1 Antitrypsin 1958 DTaP,Tdap,and Td Vaccines (1 - Tdap) 1959 Zoster Vaccines (1 of 2) 1990 *COPD SEVERITY VERIFIED BY PFT 01/02/2018 Depression Screening 08/07/2022 08/07/2021 COVID-19 Vaccine ( season) 2023 06/11/2022, 02/05/2022, 08/07/2021, Additional history exists HbA1c 03/20/2023 03/20/2022, 10/14, 05/02/2020, Additional history exists GFR 05/27/2023 11/25/2022, 10/15, 10/14/2022, Additional history exists Albumin/Creatinine Ratio 07/25/2023 023, 08/07/2021, 01/12/2021, Additional history exists CKD PHOS USE SMARTSET 93023 07/25/2023 02/0 02/2023, 01/10/2022, 01/11/2021, Additional history exists O2 ASSESSMENT COMPLETED IN PAST YEAR FOR COPD 08/15/2023 08/14/2022 CKD HGB USE SMARTSET 95968 11/26/202311/25, 11/25/2022, 11/04/2022, Additional history exists DXA [...] this encounter Medical Devices Implanted Type Area Church Musician Device Identifier Shelf Expiration Date Model / Serial / Lot [place] Excluder Aaa Endoprothesis System-07/07/2019 Implanted:07/07/19 20 (Quantity not on file) Graft Description:Multiple implant s from system on same day [id number] Cordis Bx Velocity Cardiac Stent-06/02/2002 Implanted:06/02/20 02 (Quantity not on file) Stent CORDIS LEXA BX VELOCITY [id number] / / [id number] Cordis Bx Velocity Cardiac Stent-01/03/2003 Implanted:01/04/20 03 (Quantity not on file) Stent CORDIS LEXA VELOCITY [id number] / / [id number] documented as of this encounter Visit Diagnoses Diagnosis Chronic bilateral low back pain with bilateral sciatica- Primary Need for prophylactic vaccination and inoculation against influenza Prediabetes Other abnormal glucose Encounter for long-term (current) use of medications Encounter for long-term (current) use of other medications documented in this encounter Advance Directives Latest [...] the patient have Health Care Power of Robotics Testing Technician? No Healthcare Agents on File Name Relationship Healthcare Agent Relationship Communication Gus Rosenbaum Jr. Adult Child Health Care R epresentative (appointed verbally by patient or by statute hierarchy) Care Teams Juice Bar Team Member Relationship Specialty Start Date End Date Jasson Denney MD [address] [place] [address] [place] [address] PCP - General Family Medicine 03/22/16 documented as of this encounter
--- OUTSIDE RECORDS SUMMARY | 2023-06-24 05:40 | External Medical Summary | Summary of Care ---
Author Name Unknown Organization [facility] Address [address] [place] [facility] [place] [address] Phone [phone] Care Team Providers Care Medical Information Specialist Name Role Phone Jasson Denney MD Primary Care Provide r Reason for Visit * Reason Comments eRx-Medication Refill Encounter Details Date Type Department Care Team Description 03/10/2023 Refill Family Medicine [address] [phone] Jasson Denney MD [address] [place], [place] [address] [address] Encounter for long-term (current) use of medications* Allergies Active Allergy Reactions Severity Noted Date Comments Adhesive Tape 04/11/2006 Latex 06/06/2022 Other reaction(s): rash/itchy documented as of this encounter (statuses as of 2023) Medications Medication Sig Dispensed Refills Start Date End Date Status OSCAL 500/200 D-3 500-200 MG-UNIT PO TABS Take 1 Tablet by mouth in the morning. 0 08/11/2007 Active CENTRUM SILVER PO TABS one a day 0 08/11/2007 Active Polyethylene Glycol 3350 17 GM/SCOOP Oral Powder Take 17 g by mouth daily as needed for Constipation. 0 Active cyclobenzaprine (FLEXERIL) 10 MG TabletIndications :Spasm of back muscles Take 1 Tab by [...] every night at bedtime. 0 07/12/2019 Active Phenylephrine-Martinez oa Butter 0.25-88.44 % Rectal Suppository Administer into the rectum as needed for Hemorrhoids. 0 Active Nitroglycerin 0.4 MG Sublingual Tablet Sublingual (Nitrostat) Place 1 Tablet under the tongue as needed. 0 11/10/2020 Active Atenolol 25 MG Oral Tablet (Tenormin)Indicat ions:HTN, goal below 140/90 TAKE 1 TABLET BY MOUTH DAILY IN AM 90 Tablet 2 06/06/2022 Active Rosuvastatin Calcium 20 MG Oral Tablet (Crestor)Indicati ons:Dyslipidemia, goal LDL below 100 TAKE 1 TABLET BY MOUTH DAILY 90 Tablet 3 07/22/2022 Active Clopidogrel Bisulfate 75 MG Oral Tablet (pLAVix)Indicatio ns:HTN, goal below 140/90 TAKE 1 TABLET BY MOUTH DAILY 90 Tablet 2 07/22/2022 Active Dexamethasone 4 MG Oral TabletIndications :Malignant neoplasm of left breast in female, estrogen receptor positive, unspecified site of breast Take 8 mg (2 tablets) twice for 3 days (starting day before, on the day and day after chemo) 72 Tablet 0 09/09/2022 Active Isosorbide Mononitrate ER 30 MG Oral Tablet Extended Release 24 Hour (Imdur)Indication s:Coronary artery disease involving [place] coronary artery of [place] heart without angina pectoris TAKE 1 TABLET BY MOUTH EVERY DAY IN THE MORNING 90 Tablet 1 11/26/2022 Active Ezetimibe 10 MG Oral Tablet (Zetia)Indication s:Dyslipidemia, goal to be determined TAKE 1 TABLET BY MOUTH DAILY 90 Tablet 1 12/27/2022 Active Enalapril Maleate 10 MG Oral Tablet (Vasotec) TAKE 2 TABLETS BY MOUTH EVERY DAY 180 Tablet 1 01/20/2023 Active DULoxetine HCl 30 MG Oral Capsule Delayed Release Particles (Cymbalta)Indicat ions:Moderate episode of recurrent major depressive disorder (HCC),Chronic [...] THE TABLET 90 Tablet 1 2023 Active Pantoprazole Sodium 20 MG Oral Tablet Delayed Release (Protonix) TAKE 1 TABLET BY MOUTH DAILY 1/2 HOUR BEFORE THE FIRST MEAL OF THE DAY. 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, estrogen receptor positive 06/28/2022 Postherpetic neuralgia 06/28/2022 Hiatal hernia 08/07/2021 Schatzki's ring 08/07/2021 S/P angioplasty with stent 11/15/2020 Coronary artery disease involving [place] heart without angina pectoris 11/15/2020 Cardiac murmur [...] as of this encounter (statuses as of 2023) Resolved Problems Problem Noted Date Resolved Date [...] as of this encounter (statuses as of 2023) Immunizations Name Administration Dates Next Due COVID-19 mRNA, LNP-s, No Pre serve, 2-Dose Series ([employer]) 08/11/2020,07/21/2020 COVID-19, LNP-s, No Preserve , Dusty-sucrose, Ages 12+ (Pfizer) 02/05/2022,08/07/2021 Covid-19, Mrna, Lnp-s, Pf, B ivalent, 30 Mcg, IM, 12 yrs and above ([employer]) 06/11/2022 Pneumococcal Conjugate Vacc, 13 Valent (Prevnar) [...] Miscellaneous Notes * Telephone Encounter - Pranay Nicolas [facility] - 2023 5:18 AM EDTSigned Prescriptions: Disp Refills Pantoprazole Sodium 20 MG Oral Tablet Jesica*90 Tab*1 Sig: TAKE 1 TABLET BY MOUTH DAILY 1/2 HOUR BEFORE THE FIRST MEAL OF THE DAY. DO NOT CRUSH, SPLIT OR CHEW THE TABLETAuthorizing Provider: JASSON DENNEY User: PRANAY NICOLAS * Telephone Encounter - Pranay Nicolas RPh - 2023 5:17 AM EDT Per refill protocol patient needs magnesium lab on file within the past 2 years while using PPIs. Lab work ordered. Patient may obtain with next routine labs. Thanks, Pranay Nicolas Clinical Pharmacist [facility] ([facility]) (Formerly [facility]) [phone] 2023, 5:17 AM documented in this encounter Plan of Treatment Upcoming Encounters Date Type Specialty Care Team Description 03/12/2023 Office Visit Dermatology Melanie Frank PA-C [address] [place] [address] [place] [address] 03/20/2023 Office Visit Family Medicine Imani Hart PA-C [address] [place] [address] [place] [address] 03/31/2023 Office Visit Hematology Oncology Gay Lu MD [address] [facility] [place] [address] 04/29/2023 Office Visit Cardiology Guillermo Mejia, [address] [place] [address] 05/07/2023 Office Visit Nephrology Valery Urena PA-C [address] [facility] [place] [address] 06/12/2023 Imaging Radiology 08/04/2023 Imaging Radiology 08/12/2023 Office Visit Family Medicine Jasson Denney MD [address] [place] [address] [place] [address] Scheduled Orders Name Type Priority Associated Diagnoses Orde r Schedule MAGNESIUM Lab Routine Encounter for long-term (current) use of medications Expected: 03/18/2023 (Approximate), Expires: 2024 Health Maintenance Due Date Last Done Comments [...] Additional history exists CKD PHOS USE SMARTSET 19356 07/25/2023 02/0 02/2023, 01/10/2022, 01/11/2021, Additional history exists O2 ASSESSMENT COMPLETED IN PAST YEAR FOR COPD 08/15/2023 08/14/2022 CKD HGB USE SMARTSET 67625 11/26/202311/25, 11/25/2022, 11/04/2022, Additional history exists DXA [...] this encounter Medical Devices Implanted Type Area Vice President Of Advertising Device Identifier Shelf Expiration Date Model / Serial / Lot [place] Excluder Aaa Endoprothesis System-07/07/2019 Implanted:07/07/19 20 (Quantity not on file) Graft Description:Multiple implant s from system on same day [id number] Cordis Bx Velocity Cardiac Stent-06/02/2002 Implanted:06/02/20 02 (Quantity not on file) Stent CORDIS LEXA BX VELOCITY [id number] / / [id number] Cordis Bx Velocity Cardiac Stent-01/03/2003 Implanted:01/04/20 03 (Quantity not on file) Stent CORDIS LEXA VELOCITY [id number] / / [id number] documented as of this encounter Visit Diagnoses Diagnosis Encounter for long-term (current) use of medications- Primary Encounter for long-term (current) use of other [...] the patient have Health Care Power of Summons Server? No Healthcare Agents on File Name Relationship Healthcare Agent Relationship Communication Gus Rosenbaum Jr. Adult Child Health Care R epresentative (appointed verbally by patient or by statute hierarchy) Care Teams Medical Information Specialist Relationship Specialty Start Date End Date Jasson Denney MD [address] [place] [address] [place] [address] PCP - General Family Medicine 03/22/16 documented as of this encounter
--- OUTSIDE RECORDS SUMMARY | 2023-06-24 05:40 | External Medical Summary | Summary of Care ---
Author Name Unknown Organization [facility] Address [address] [facility] [address] Phone [phone] Care Team Providers Care Hooker Machine Tender Name Role Phone Jasson Denney MD Primary Care Provide r Reason for Referral * Evaluate & Treat - Unlimited Visits (Within 10 days (routine)) - Authorized Specialty Diagnoses / Procedures Referred By Radha romero Referred To Contact Dermatology Diagnoses Squamous cell cancer of skin of left hand Melanie Frank PA-C [address] [place] [address] [place] [phone] Referral ID Status Reason Start Date Expiration Date Visits Requested Visits Authorized [id number] Authorized Specialty Services Required 03/18/2023 1 1 [...] Team Description 03/18/2023 Telephone Dermatology Yair Garcia [address] [place] [address] [place] [phone] Melanie Frank PA-C [address] [place] [address] [place] [address] Appointment Allergies Active Allergy Reactions Severity Noted Date Comments Adhesive Tape 04/11/2006 Latex 06/06/2022 Other reaction(s): rash/itchy documented as of this encounter (statuses as of 03/19/2023) Medications Medication Sig Dispensed Refills Start Date [...] every night at bedtime. 0 07/12/2019 Active Phenylephrine-[place] Butter 0.25-88.44 % Rectal Suppository Administer into [...] 24 Hour (Imdur)Indications: Coronary artery disease involving [place] coronary artery of [place] heart without angina pectoris TAKE 1 TABLET [...] as of this encounter (statuses as of 03/19/2023) Active Problems Problem Noted Date Encounter for antineoplastic chemotherap y 09/10/2022 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, estrogen receptor positive 06/28/2022 Postherpetic neuralgia 06/28/2022 Hiatal hernia 08/07/2021 Schatzki's ring 08/07/2021 S/P angioplasty with stent 11/15/2020 Coronary artery disease involving [place] heart without angina pectoris 11/15/2020 Cardiac murmur [...] as of this encounter (statuses as of 03/19/2023) Resolved Problems Problem Noted Date Resolved Date [...] as of this encounter (statuses as of 03/19/2023) Immunizations Name Administration Dates Next Due COVID-19 mRNA, LNP-s, No Pre serve, 2-Dose Series ([employer]) 08/11/2020,07/21/2020 COVID-19, LNP-s, No Preserve , Dusty-sucrose, [...] encounter Miscellaneous Notes * Telephone Encounter - CORY Garcia - 03/19/2023 8:14 AM EDT 03/19 Ubaldo Sr/Baldev- please review photo, to large for a 1pm mohs spot? * Telephone Encounter - Melanie Frank PA-C - 03/18/2023 12:15 PM EDT Spoke to pt regarding bx result. SCC, plan on Mohs in [place]. Pt is aware she will be calledto schedule the appt. Melanie Frank SSURAJ. Skin, L dorsal hand, shave: Invasive well-differentiated squamous cell carcinoma documented in this encounter Plan of Treatment Upcoming Encounters Date Type Specialty Care Team Description 03/20/2023 Office Visit Family Medicine Imani Hart PA-C [address] [place] [address] [place] [address] 03/31/2023 Office Visit Hematology Oncology Gay Lu MD [address] [place] [address] 04/29/2023 Office Visit Cardiology Guillermo Mejia, [address] [place] [address] 05/07/2023 Office Visit Nephrology Valery Urena PA-C [address] [place] [address] 06/12/2023 Imaging Radiology 08/04/2023 Imaging Radiology 08/12/2023 Office Visit Family Medicine Jasson Denney MD [address] [place] [address] [place] [address] 04/05/2024 Office Visit Dermatology Melanie Frank PA-C [address] [place] [address] [place] [address] Scheduled Referrals Name Type Priority Associated Diagnoses [...] Additional history exists CKD PHOS USE SMARTSET 64937 07/25/2023 02/0 02/2023, 01/10/2022, 01/11/2021, Additional history exists O2 ASSESSMENT COMPLETED IN PAST YEAR FOR COPD 08/15/2023 08/14/2022 CKD HGB USE SMARTSET 98553 11/26/202311/25, 11/25/2022, 11/04/2022, Additional history exists DXA [...] this encounter Medical Devices Implanted Type Area Kelp Or Seagrass Gatherer Device Identifier Shelf Expiration Date Model / Serial / Lot [place] Excluder Aaa Endoprothesis System-07/07/2019 Implanted:07/07/19 20 (Quantity not on file) Graft Description:Multiple implant s from system on same day [id number] Cordis Bx Velocity Cardiac Stent-06/02/2002 Implanted:06/02/20 02 (Quantity not on file) Stent CORDIS LEXA BX VELOCITY [id number] / / [id number] Cordis Bx Velocity Cardiac Stent-01/03/2003 Implanted:01/04/20 03 (Quantity not on file) Stent CORDIS LEXA VELOCITY [id number] / / [id number] documented as of this encounter Visit Diagnoses [...] the patient have Health Care Power of Catheter Finisher And Inspector? No Healthcare Agents on File Name Relationship Healthcare Agent Relationship Communication Gus Rosenbaum Jr. Adult Child Health Care R epresentative (appointed verbally by patient or by statute hierarchy) Care Teams Hooker Machine Tender Relationship Specialty Start Date End Date Jasson Denney MD [address] [place] [address] [place] [address] PCP - General Family Medicine 03/22/16 documented as of this encounter
--- OUTSIDE RECORDS SUMMARY | 2023-06-24 05:40 | External Medical Summary ---
Author Name Unknown Address Unknown Organization K01:[facility] [place] [address] [place] [address] Laboratory Report Ordering Provider Test Date Status MARIAN DAVIS 03/20/2023 12:02:32 Final Observation Date Value Abnormality Reference (Units ) Status WBC, Total 03/20/2023 12:02:32 7.60 4.00-10.80 (K/uL) Final RBC 03/20/2023 12:02:32 3.88 3.85-5.15 (M/uL) Final Hemoglobin 03/20/2023 12:02:32 11.1 Below low normal 12.0-15.3 (g/dL) Final HCT 03/20/2023 12:02:32 35.7 Below low normal 36.0-45.2 (%) Final MCV 03/20/2023 12:02:32 92.0 81.5-97.5 (fL) Final MCH 03/20/2023 12:02:32 28.6 27.0-34.0 (pg) Final MCHC 03/20/2023 12:02:32 31.1 32.0-36.0 (g/dL) Final RDW 03/20/2023 12:02:32 14.4 11.5-15.5 (%) Final Platelets 03/20/2023 12:02:32 197 140-400 (K/uL) Final MPV 03/20/2023 12:02:32 10.2 6.6-11.1 (fL) Final Nucleated erythrocytes/100 leukocytes [Ratio] in Blood by Automated count 03/20/2023 12:02:32 0 <=0 (/100 WBCs) Final Performing Location [facility] [place] - [address] [place] [address]
--- OUTSIDE RECORDS SUMMARY | 2023-06-24 05:40 | External Medical Summary | Summary of Care ---
Author Name Unknown Organization [facility] Address [address] [facility] [place] [address] Phone [phone] Care Team Providers Care Train Planner Name Role Phone Jasson Denney MD Primary Care Provide r Reason for Visit * Reason Comments Outpatient Testing Encounter Details Date Type Department Care Team Description 03/20/2023 Laboratory Laboratory [address] [place] [id number] [place] [address] Malignant neoplasm of left breast in female, estrogen receptor positive, unspecified site of breast ; Encounter for long-term (current) use of medications; Prediabetes Allergies Active Allergy Reactions Severity Noted Date [...] every night at bedtime. 0 07/12/2019 Active Phenylephrine-[place] Butter 0.25-88.44 % Rectal Suppository Administer into [...] MOUTH DAILY 90 Tablet 2 07/22/2022 Active Isosorbide Mononitrate ER 30 MG Oral Tablet Extended Release 24 Hour (Imdur)Indications: Coronary artery disease involving circle coronary artery of circle heart without angina pectoris TAKE 1 TABLET [...] before bedtime. 180 Capsule 1 03/20/2023 Active documented as of this encounter (statuses as of 03/20/2023) Active Problems Problem Noted Date Encounter for antineoplastic chemotherap y 09/10/2022 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, estrogen receptor positive 06/28/2022 Postherpetic neuralgia 06/28/2022 Hiatal hernia 08/07/2021 Schatzki's ring 08/07/2021 S/P angioplasty with stent 11/15/2020 Coronary artery disease involving circle heart without angina pectoris 11/15/2020 Cardiac murmur [...] mRNA, LNP-s, No Pre serve, 2-Dose Series ([employer]) 08/11/2020,07/21/2020 COVID-19, LNP-s, No Preserve , Dusty-sucrose, [...] Visit Hematology Oncology Gay Lu MD [address] [place] [address] [address] 04/07/2023 Office Visit Dermatology Walter Sr MD [address] [place] [address] [address] 04/29/2023 Office Visit Cardiology Guillermo Mejia DO [address] [place] [address] 05/07/2023 Office Visit Nephrology Valery Urena PA-C [address] [place] [address] [address] 06/12/2023 Imaging Radiology 06/12/2023 Imaging Radiology 08/04/2023 Imaging Radiology 08/12/2023 Office Visit Family Medicine Jasson Denney MD [address] [place] [address] [place] [address] 04/05/2024 Office Visit Dermatology Melanie Frank PA-C [address] [place] [address] [place] [id number] Pending Results Name Type Priority Associated Diagnoses Date /Time CBC WITH WBC DIFFERENTIAL Lab Routine Malignant neoplasm of left breast in female, estrogen receptor positive, unspecified site of breast 03/20/2023 12:02 PM EDT COMPREHENSIVE METABOLIC PANEL Lab Routine Malignant neoplasm of left breast in female, estrogen receptor positive, unspecified site of breast 03/20/2023 12:02 PM EDT MAGNESIUM Lab Routine Encounter for long-term (current) use of medications 03/20/2023 12:02 PM EDT HEMOGLOBIN A1C Lab Routine Prediabetes 03/20/2023 12:02 PM EDT VITAMIN B12 Lab Routine Encounter for long-term (current) use of medications 03/20/2023 12:02 PM EDT CBC Lab Routine Malignant neoplasm of left breast in female, estrogen receptor positive, unspecified site of breast 03/20/2023 12:02 PM EDT DIFFERENTIAL, AUTOMATED Lab Routine Malignant neoplasm of left breast in female, estrogen receptor positive, unspecified site of breast 03/20/2023 12:02 PM EDT Health Maintenance Due Date Last [...] Additional history exists CKD PHOS USE SMARTSET 41198 07/25/2023 02/0 02/2023, 01/10/2022, 01/11/2021, Additional history exists O2 ASSESSMENT COMPLETED IN PAST YEAR FOR COPD 08/15/2023 08/14/2022 CKD HGB USE SMARTSET 04910 11/26/202311/25, 11/25/2022, 11/04/2022, Additional history exists DXA [...] this encounter Medical Devices Implanted Type Area Chemical Processing Laborer Device Identifier Shelf Expiration Date Model / Serial / Lot Mills Excluder Aaa Endoprothesis System-07/07/2019 Implanted:07/07/19 20 (Quantity not on file) Graft Description:Multiple implant s from system on same day [id number] Cordis Bx Velocity Cardiac Stent-06/02/2002 Implanted:06/02/20 02 (Quantity not on file) Stent CORDIS LEXA BX VELOCITY [id number] / / [id number] Cordis Bx Velocity Cardiac Stent-01/03/2003 Implanted:01/04/20 03 (Quantity not on file) Stent CORDIS LEXA VELOCITY [id number] / / [id number] documented as of this encounter Visit Diagnoses Diagnosis Malignant neoplasm of left breast in female, estrogen receptor positive, unspecified site of breast Encounter for long-term (current) use of medications Encounter for long-term (current) use of other medications Prediabetes Other abnormal glucose documented in this encounter Advance Directives Latest [...] the patient have Health Care Power of Body Painter? No Healthcare Agents on File Name Relationship Healthcare Agent Relationship Communication Gus Rosenbaum Jr. Adult Child Health Care R epresentative (appointed verbally by patient or by statute hierarchy) Care Teams Train Planner Relationship Specialty Start Date End Date Jasson Denney MD [address] [place] [address] [place] [address] PCP - General Family Medicine 03/22/16 documented as of this encounter
--- OUTSIDE RECORDS SUMMARY | 2023-06-24 05:40 | External Medical Summary | Summary of Care ---
Author Name Unknown Organization [facility] Address [address] [facility] [place] [address] Phone [phone] Care Team Providers Care Cissp Name Role Phone Jasson Denney MD Primary Care Provide r Reason for Visit * Reason Comments Follow Up Lesion left hand x m onths, denies pain Encounter Details Date Type Department Care Team Description 03/12/2023 Office Visit Dermatology [address] [place] [address] Melanie Frank PA-C [address] [place] [address] [place] [address] Hx of nonmelanoma skin cancer*; Neoplasm of uncertain behavior of skin Allergies Active Allergy Reactions Severity Noted Date Comments Adhesive Tape 04/11/2006 Latex 06/06/2022 Other reaction(s): rash/itchy documented as of this encounter (statuses as of 03/12/2023) Medications Medication Sig Dispensed Refills Start Date [...] every night at bedtime. 0 07/12/2019 Active Phenylephrine-[place] Butter 0.25-88.44 % Rectal Suppository Administer into [...] 24 Hour (Imdur)Indications: Coronary artery disease involving [place] coronary artery of [place] heart without angina pectoris TAKE 1 TABLET [...] as of this encounter (statuses as of 03/12/2023) Active Problems Problem Noted Date Encounter for antineoplastic chemotherap y 09/10/2022 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, estrogen receptor positive 06/28/2022 Postherpetic neuralgia 06/28/2022 Hiatal hernia 08/07/2021 Schatzki's ring 08/07/2021 S/P angioplasty with stent 11/15/2020 Coronary artery disease involving [place] heart without angina pectoris 11/15/2020 Cardiac murmur [...] as of this encounter (statuses as of 03/12/2023) Resolved Problems Problem Noted Date Resolved Date [...] as of this encounter (statuses as of 03/12/2023) Immunizations Name Administration Dates Next Due COVID-19 mRNA, LNP-s, No Pre serve, 2-Dose Series ([facility]) 08/11/2020,07/21/2020 COVID-19, LNP-s, No Preserve , Dusty-sucrose, Ages 12+ (Pfizer) 02/05/2022,08/07/2021 Covid-19, Mrna, Lnp-s, Pf, B ivalent, 30 Mcg, IM, 12 yrs and above ([facility]) 06/11/2022 Pneumococcal Conjugate Vacc, 13 Valent (Prevnar) [...] Product examples; Think sport, Think baby, Boy, [employer], [employer], [place] baby. "Baby" products can be used for all ages. documented in this encounter Progress Notes * Melanie Frank PA-C - 03/12/2023 1:39 [...] ago) Reviewed, same day as visit, 0 [facility] Dermatology lab work(s)/pathology report(s) as well as [...] Capsule by mouth every night at bedtime. Phenylephrine-[place] Butter 0.25-88.44 % Rectal Suppository Administer into [...] Frank PA-C 03/12/2023 1:39 PM Ref: IMANI BAILEY[[id number]] [address] [place] [address] [place] [address] (office) [phone] (fax) PCP: JASSON DENNEY [address] [place] [address] [place] [address] [phone] documented in this encounter Nursing Notes * Sondra Silva LPN - 03/12/2023 1:38 PM EDT Patient identified by full name and date of . Chief Complaint Patient presents with Follow Up Lesion left hand x months, denies pain documented in this encounter Plan of Treatment Upcoming Encounters Date Type Specialty Care Team Description 03/20/2023 Office Visit Family Medicine Imani Bailey PA-C [address] [place] [address] [place] [address] 03/31/2023 Office Visit Hematology Oncology Gay Lu MD [address] [place] [address] 04/29/2023 Office Visit Cardiology Guillermo Mejia, DO [address] [place] [address] 05/07/2023 Office Visit Nephrology Valery Urena PA-C [address] [place] [address] 06/12/2023 Imaging Radiology 08/04/2023 Imaging Radiology 08/12/2023 Office Visit Family Medicine Jasson Denney MD [address] [place] [address] [place] [address] 04/05/2024 Office Visit Dermatology Melanie Frank PA-C [address] [place] [address] [place] [address] Pending Results Name Type Priority Associated Diagnoses [...] Additional history exists CKD PHOS USE SMARTSET 15615 07/25/2023 02/0 02/2023, 01/10/2022, 01/11/2021, Additional history exists O2 ASSESSMENT COMPLETED IN PAST YEAR FOR COPD 08/15/2023 08/14/2022 CKD HGB USE SMARTSET 68847 11/26/202311/25, 11/25/2022, 11/04/2022, Additional history exists DXA [...] this encounter Medical Devices Implanted Type Area Assistant Film Editor Device Identifier Shelf Expiration Date Model / Serial / Lot [place] Excluder Aaa Endoprothesis System-07/07/2019 Implanted:07/07/19 20 (Quantity not on file) Graft Description:Multiple implant s from system on same day [id number] Cordis Bx Velocity Cardiac Stent-06/02/2002 Implanted:06/02/20 02 (Quantity not on file) Stent CORDIS LEXA BX VELOCITY [id number] / / [id number] Cordis Bx Velocity Cardiac Stent-01/03/2003 Implanted:01/04/20 03 (Quantity not on file) Stent CORDIS LEXA VELOCITY [id number] / / [id number] documented as of this encounter Visit Diagnoses Diagnosis Hx of [...] the patient have Health Care Power of Labeling Specialist? No Healthcare Agents on File Name Relationship Healthcare Agent Relationship Communication Gus Rosenbaum Jr. Adult Child Health Care R epresentative (appointed verbally by patient or by statute hierarchy) Care Teams Cissp Relationship Specialty Start Date End Date Jasson Denney MD [address] [place] [address] [place] [phone] PCP - General Family Medicine 03/22/16 documented as of this encounter
--- OUTSIDE RECORDS SUMMARY | 2023-06-24 05:40 | External Medical Summary | Summary of Care ---
Author Name Unknown Organization [facility] Address [address] [facility] [place] [address] Phone [phone] Care Team Providers Care Correctional Cook Name Role Phone Jasson Denney MD Primary Care Provide r Reason for Visit * Reason Comments Follow Up 3m Encounter Details Date Type Department Care Team Description 03/31/2023 Office Visit [facility]ology[facility] [address] [facility] [place] [address] Gay Lu MD [address] [facility] [place] [address] Malignant neoplasm of left breast in female, estrogen receptor positive, unspecified site of breast * Allergies Active Allergy Reactions Severity Noted Date Comments Adhesive Tape 04/11/2006 Latex 06/06/2022 Other reaction(s): rash/itchy documented as of this encounter (statuses as of 03/31/2023) Medications Medication Sig Dispensed Refills Start Date [...] every night at bedtime. 0 07/12/2019 Active Phenylephrine-Lawndale Butter 0.25-88.44 % Rectal Suppository Administer into [...] 24 Hour (Imdur)Indications: Coronary artery disease involving tonkawa coronary artery of tonkawa heart without angina pectoris TAKE 1 TABLET [...] as of this encounter (statuses as of 03/31/2023) Active Problems Problem Noted Date Encounter for antineoplastic chemotherap y 09/10/2022 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, estrogen receptor positive 06/28/2022 Postherpetic neuralgia 06/28/2022 Hiatal hernia 08/07/2021 Schatzki's ring 08/07/2021 S/P angioplasty with stent 11/15/2020 Coronary artery disease involving tonkawa heart without angina pectoris 11/15/2020 Cardiac murmur [...] as of this encounter (statuses as of 03/31/2023) Resolved Problems Problem Noted Date Resolved Date [...] as of this encounter (statuses as of 03/31/2023) Immunizations Name Administration Dates Next Due COVID-19 mRNA, LNP-s, No Pre serve, 2-Dose Series ([employer]) 08/11/2020,07/21/2020 COVID-19, LNP-s, No Preserve , Dusty-sucrose, [...] Sign Reading Time Taken Comments Blood Pressure 106/55 03/31/2023 2:09 PM EDT Pulse 71 03/31/2023 2:09 PM EDT Temperature - - Respiratory Rate 16 03/31/2023 2:09 PM EDT Oxygen Saturation 90% 03/31/2023 2:09 PM EDT Inhaled Oxygen Concentration - - Weight 73.6 kg (162 lb 3.2 oz) 03/31/2023 2:09 P M EDT Height - - Body Mass Index 26.18 03/20/2023 11:24 AM EDT documented in this encounter Progress Notes * Gay Lu MD - 03/31/2023 2:34 PM EDT Images from the original note were not included. Outpatient Consult Note Data Source: Patient, [facility] record. Data Source: Patient, Epic record. 03/31/2023 2:34 PM Afua Rosenbaum [id number] 83 year old Patient Encounter: HEMATOLOGY/ONCOLOGY [facility] Cancer Diagnosis: Left breast cancer, ER low positive with 5% nuclear positivity and WY/HER2 Ludivina negative. She is stage pT2 pN0 disease. Oncotype DX score is 58 Current Treatment: She received 4 cycles of adjuvant chemotherapy including combination of docetaxel and cyclophosphamide, 09/24/22 to 11/26/2022 Previous Treatment: Status post left mastectomy Oncologic History : 82-year-old female with a past medical history significant for coronary artery disease s/p CABG and2 stents 2001, COPD, HTN, HL, depression, long history of back problems/leg aches, ruptured AAA 07/05/19 s/p emergent endovascular repair [facility] and w/ L retroperitoneal hemorrhage and moderate L hydronephrosis was recently diagnosed of left breast cancer which was initially found on the CT scan of the chest which was done on 06/01/2022 when she presented with chest pain. The CT scan revealed 1.7 cmenhancing mass in the left breast. Subsequently she had diagnostic mammogram and US which revealed a 1.2 x 2.0 x 1.2 cm lobulated taller than wide hypoechoic solid mass at 2/3 o'clock 3 cm from nipple correlate to nodule seen on recent CT chest 06/01/2022 from outside facility. Also noted is an adjacent 5 x 3 x 4 mm hypoechoic solid mass. Core biopsy of the mass was done on 06/20/2022 and pathology is consistent with invasive ductal carcinoma, grade 3 with necrosis, ER low positive with 5% nuclear positivity, cancer in this sample hasa low level (1%-10%) of ER expression by IHC, WY/HER2 Ludivina were negative. Final Diagnosis A. Breast, Left, 2-3:00 3cm FN, core biopsy: Invasive ductal carcinoma, grade 3 with necrosis. Estrogen Receptor (ER) protein expression is LOW POSITIVE 5% nuclear positivity 1+ average intensity score (range 0 to 3+) COMMENT: The cancer in this sample has a low level (1%-10%) of ER expression by IHC Progesterone Receptor (WY) protein expression is NEGATIVE HER2 oncoprotein expression is NEGATIVE She is scheduled for the surgery on 08/14/2022. She is complaining of generalized weakness. She denies smoking or drinking. Family history significant for sister was diagnosed of brain tumor. Maternal grandfather was diagnosed of stomach cancer. She underwent left mastectomy on 08/14/2022 with sentinel lymph biopsy. Pathology was consistent with to focus of invasive mammary carcinoma of no special type, grade 3, the size of the 1 tumor was 22 mm in greatest dimension. There was also high-grade ductal carcinoma in Situ. Surgical margin of the lymph nodes were negative. . Breast, left, simple mastectomy: Multifocal invasive mammary carcinoma of no special type (ductal), grade 3, 22 mm in greatest dimension. Ductal carcinoma in situ (DCIS), high-grade. Biopsy site changes and biopsy clip identified. Surgical margins negative. Pathologic stage (AJCC 8th edition): mpT2 Comment: There are two foci of invasive carcinoma (22 mm and 6 mm in greatest dimension, respectively) located in the outer breast at approximately the 4:00 position. Ductal carcinoma in situ (DCIS) involves the upper inner and upper outer quadrants. B. Lymph node, left sentinel node #1-count 592, excision: One benign lymph node, negative for metastatic carcinoma (0/1). An immunostain for CK-AE1/AE3 is negative. C. Lymph node, left sentinel node #2-count 137, excision: One benign lymph node, negative for metastatic carcinoma (0/1). Immunostains for CK-AE1/AE3 are negative. D. Lymph node, left sentinel node #3-count 361, excision: One benign lymph node, negative for metastatic carcinoma (0/1). An immunostain for CK-AE1/AE3 is negative. TNM Descriptors m (multiple foci of invasive carcinoma) pT Category pT2 Regional Lymph Nodes Modifier (sn): Dunbar node(s) evaluated. pN Category pN0 Size (Extent) of DCIS Estimated size (extent) of DCIS is at least (Millimeters): 80 mm Architectural Patterns Comedo Solid Nuclear Grade Grade III (high) Necrosis Present, central (expansive "comedo" necrosis) Oncotype DX score is 58. ER/WY also negative on DCIS component of the tumor. ER/WY This addendum is being issued to report the results of ER/WY testing on the DCIS component, per request of Dr. Lu. Estrogen Receptor (ER) protein expression is NEGATIVE <1% nuclear positivity COMMENT: Assay internal and external control immunoreactivity is appropriate. Progesterone Receptor (WY) protein expression is NEGATIVE <1% nuclear positivity Interval History: She continues to have issues with chronic back pain for last 50 years. Otherwise clinically she is doing well without any other new symptoms. She is in excellent performance status. Patient denies any headache, dizziness, blurred vision, chest pain, shortness breath palpitation abdominal pain or distention, bleeding, bruising, nausea, vomiting, fever, night sweats, weight loss, hematuria, hematochezia. Her weight is stable LABS/IMAGING: Results for orders placed or performed in visit on 03/20/23 COMPREHENSIVE METABOLIC PANEL Result Value Ref Range BUN 24 (H) 6 - 20 mg/dL Creatinine 1.6 (H) 0.5 - 1.0 mg/dL Estimated Glomerular Filtration Rate 32 (L) >=60 mL/min Sodium 143 135 - 146 mmol/L Potassium 4.6 3.5 - 5.1 mmol/L Chloride 106 98 - 107 mmol/L CO2 27 22 - 32 mmol/L Anion Gap 10 7 - 15 mmol/L Glucose 94 70 - 120 mg/dL Albumin 4.2 3.8 - 5.0 g/dL AST 21 10 - 35 U/L Alkaline Phosphatase 70 35 - 130 U/L Bilirubin, Total 0.2 <=1.2 mg/dL Calcium 9.6 8.4 - 10.2 mg/dL Protein 6.3 6.0 - 8.3 g/dL ALT 15 10 - 35 U/L MAGNESIUM Result Value Ref Range Magnesium 2.1 1.5 - 2.6 mg/dL HEMOGLOBIN A1C Result Value Ref Range Hemoglobin A1C 6.1 (H) 4.0 - 5.6 % Estimated Average Glucose 128 (H) <126 mg/dL VITAMIN B12 Result Value Ref Range Vitamin B12 880 232 - 1,245 pg/mL CBC Result Value Ref Range WBC 7.60 4.00 - 10.80 K/uL RBC 3.88 3.85 - 5.15 M/uL HGB 11.1 (L) 12.0 - 15.3 g/dL HCT 35.7 (L) 36.0 - 45.2 % MCV 92.0 81.5 - 97.5 fL MCH 28.6 27.0 - 34.0 pg MCHC 31.1 32.0 - 36.0 g/dL RDW 14.4 11.5 - 15.5 % PLT 197 140 - 400 K/uL MPV 10.2 6.6 - 11.1 fL nRBCs 0 <=0 /100 WBCs DIFFERENTIAL, AUTOMATED Result Value Ref Range WBC 7.60 4.00 - 10.80 K/uL Neutrophils % 75.7 (H) 40.0 - 75.0 % Lymphocytes % 10.8 (L) 18.0 - 42.0 % Monocytes % 8.4 1.0 - 11.0 % Eosinophils % 3.9 0.0 - 6.0 % Basophils % 0.8 0.0 - 2.0 % Immature Granulocytes % 0.4 0.0 - 2.0 % Absolute Neutrophils 5.75 1.80 - 7.70 K/uL Absolute Lymphocytes 0.82 (L) 1.00 - 4.80 K/ul Absolute Monocytes 0.64 0.00 - 1.10 K/uL Absolute Eosinophils 0.30 0.00 - 0.70 K/uL Absolute Basophils 0.06 0.00 - 0.20 K/uL Absolute Immature Granulocytes 0.03 0.00 - 0.20 K/uL Creatinine and hemoglobin stable and the rest of the blood tests are in acceptable range. REVIEW OF SYSTEMS: General: No Fever, chills, night sweats, or weight loss. HEENT: No change in visual acuity, blurred or double vision. No epistaxis, facial pain, nasal discharge or change in hearing. Denies dysphagia, no muscosal ulceration, or sores noted. Cardiovascular: No chest pain, KRUGER, or palpitations Respiratory: No shortness of breath, cough, hemoptysis, or pleuritic chest pain Gastrointestinal: No abdominal pain, nausea, vomiting, diarrhea, rectal pain or bleeding Genitourinary: Denies Hematuria or dysuria Musculoskeletal: Chronic back pain Skin: No skin rash or lesions noted Neurologic: No numbness, weakness, neuropathic pain or change in cognitive function Psychiatric: No vegetative signs of depression Endocrine: No symptoms of hypothyroidism or hyperglycemia Hematologic: No bleeding or lymph nodes noted As mentioned above, all of the systems were reviewed in full and are unremarkable. Past Medical History: Diagnosis Date Chronic ischemic heart disease 2001,2002 with 2 stents Depressive disorder, not elsewhere classified Dyslipidemia, goal to be determined HTN, goal below 140/90 Impaired glucose tolerance Other constipation Solitary cyst of breast Breast Cyst Current Outpatient Medications Medication Sig Dispense Refill [...] Capsule by mouth every night at bedtime. Phenylephrine-Lawndale Butter 0.25-88.44 % Rectal Suppository Administer into [...] TABLET BY MOUTH DAILY 90 Tablet 2 Isosorbide Mononitrate ER 30 MG Oral Tablet [...] 1 Capsule before bedtime. 180 Capsule 1 No current facility-administered medications for this visit. Social History Tobacco Use Smoking status: Former Packs/day: 0.50 Years: 40.00 Pack years: 20.00 Types: Cigarettes Smokeless tobacco: Never Vaping Use Vaping Use: Never used Substance Use Topics Alcohol use: Yes Comment: a glass or wine on holidays Drug use: No Review of patient's allergies indicates: Allergen Reactions Adhesive Tape Latex Other reaction(s): rash/itchy PHYSICAL EXAMINATION: General Appearance: Healthy appearing patient in no acute distress BP 106/55 (BP Site: Right Arm, BP Position: Sitting, BP Cuff Size: Regular) | Pulse 71 | Resp 16 | Wt 73.6 kg (162 lb 3.2 oz) | SpO2 90% | BMI 26.18 kg/m | BSA 1.85 m Vitals reviewed. HEENT: No oral or pharyngeal masses, ulceration or thrush noted, no sinus tenderness. Neck is supple with no thyromegaly or JVD noted. Lymph Nodes: No lymphadenopathy noted in the occipital, pre and post auricular, cervical, supra andinfraclavicular, axillary, epitrochlear, inguinal, and popliteal region. Lungs/Thorax: Clear to auscultation, no accessory muscles of respiration being used. Heart: Regular rate and rhythm, normal S1, S2 Abdomen: Soft, nontender, bowel sounds present, no appreciable hepatosplenomegaly, no palpable masses Extremeties: Good pulses bilaterally, no peripheral edema. Skin: Normal skin tone with no rash, petechiae, ecchymosis noted. Musculoskeletal: No pain on palpation over bony prominence, no edema, no evidence of gout, no jointor bony deformity ASSESSMENT: 83-year-old female with a past medical history significant for coronary artery disease s/p CABG and2 stents 2001, COPD, HTN, HL, depression, long history of back problems/leg aches, ruptured AAA 07/05/19 s/p emergent endovascular repair [facility] and w/ L retroperitoneal hemorrhage and moderate L hydronephrosis was recently diagnosed of left breast cancer which was found initially on the CT scan. Mammogram revealed 1.2 x 2 x 1.2 centimeter lobulated hypoechoic mass in the left breast. Biopsies consistent with invasive ductal carcinoma, grade 3 low ER positivity and negative for progesterone receptor and HER2 Ludivina. She underwent mastectomy and sentinel lymph biopsy. She had multifocal disease in the largest was 2.2 cm and the other lesion was 6 mm with negative lymph nodes. Histopathology is consistent with invasive mammary carcinoma of no special type, grade 3. ER was weakly positive (5%). She also has high-grade DCIS She had bone density scan done in 2019 and shows risk of fracture was high. There is significant controversy in using the hormone treatment in the low/week positive ER or WY. Oncotype DX score is 58. ER/WY on DCIS is also negative. ER/WY/HER2 Lduivina were negative on the Oncotype DX result also. She received 4 cycles of adjuvant chemotherapy including docetaxel and cyclophosphamide and received last last cycle on 11/26/2022. Clinically she is doing well without any new symptoms and physical examination is unremarkable. Allher blood tests are in acceptable range. Discussed with the patient and son about diagnosis reviewed all the available blood test result with them. PLAN: Return to clinic in 3 months with CBC and CMP. The patient voiced understanding of all of the above. All questions and concerns were addressed in an apparently satisfactory manner. Gay Lu MD (This note was completed using the dictation program Fluency Direct. As such, there may be misspellings, word substitutions, or other variations that should not change the essence of the clinical content of this encounter note. If there is need for further clarification, please direct questions to me.) documented in this encounter Nursing Notes * Clara Cardenas CMA - 03/31/2023 2:10 PM EDT Patient identifed by name and birthdate Do you have any concerns about pain management for today's visit? No Living Will or Advance Directive for Health Care as noted on the problem list. [facility] is a way you can talk to your provider on line through e-mail. Would you like to sign up? I can activate it for you? NO Filed Vitals: 03/31/23 1409 BP: 106/55 Pulse: 71 Resp: 16 SpO2: 90% Weight: 73.6 kg (162 lb 3.2 oz) Patient was instructed to not get up on the exam table/exam chair until directed and assisted by their provider; patient is to remain seated in the chair/ wheelchair/ exam table/ exam chair for fall prevention and safety reasons. Patient is aware to have assistance to step down off exam table/exam chair with personnel. Patient voiced full comprehension of instructions. documented in this encounter Plan of Treatment Upcoming Encounters Date Type Specialty Care Team Description 04/07/2023 Office Visit Dermatology Walter Sr MD [address] [place] [id number] 05/07/2023 Office Visit Nephrology Valery Urena PA-C [address] [place] [address] 06/06/2023 Office Visit Cardiology Guillermo Mejia DO [address] [place] [address] 06/12/2023 Imaging Radiology 06/12/2023 Imaging Radiology 07/07/2023 Laboratory Laboratory [address] [place] [address] 07/14/2023 Office Visit Hematology Oncology Gay Lu MD [address] [place] [address] 08/04/2023 Imaging Radiology 08/12/2023 Office Visit Family Medicine Jasson Denney MD [address] [place] [address] [place] [id number] 04/05/2024 Office Visit Dermatology Melanie Frank PA-C [address] [place] [address] [place] [id number] Scheduled Orders Name Type Priority Associated Diagnoses Orde r Schedule CBC WITH WBC DIFFERENTIAL Lab Routine Malignant neoplasm of left breast in female, estrogen receptor positive, unspecified site of breast Expected: 06/30/2023, Expires: 12/01/2023 COMPREHENSIVE METABOLIC PANEL Lab Routine Malignant neoplasm of left breast in female, estrogen receptor positive, unspecified site of breast Expected: 06/30/2023, Expires: 12/01/2023 Health Maintenance Due Date Last Done Comments Alpha-1 Antitrypsin 1958 DTaP,Tdap,and Td Vaccines (1 - Tdap) 1959 Zoster Vaccines (1 of 2) 1990 *COPD SEVERITY VERIFIED BY PFT 01/02/2018 Depression Screening 08/07/2022 08/07/2021 COVID-19 Vaccine ( season) 2023 06/11/2022, 02/05/2022, 08/07/2021, Additional history exists Albumin/Creatinine Ratio 07/25/2023 023, 08/07/2021, 01/12/2021, Additional history exists CKD PHOS USE SMARTSET 00293 07/25/202302/2023, 01/10/2022, 01/11/2021, Additional history exists O2 ASSESSMENT COMPLETED IN PAST YEAR FOR COPD 08/15/2023 08/14/2022 GFR 09/19/2023 03/20/2023, 11/14, 11/04/2022, Additional history exists CKD HGB USE SMARTSET 62515 03/20/202403/20, 03/20/2023, 11/25/2022, Additional history exists HbA1c [...] this encounter Medical Devices Implanted Type Area Sales Department Clerk Device Identifier Shelf Expiration Date Model / Serial / Lot Anderson Excluder Aaa Endoprothesis System-07/07/2019 Implanted:07/07/19 20 (Quantity not on file) Graft Description:Multiple implant s from system on same day [id number] Cordis Bx Velocity Cardiac Stent-06/02/2002 Implanted:06/02/20 02 (Quantity not on file) Stent CORDIS LEXA BX VELOCITY [id number] / / [id number] Cordis Bx Velocity Cardiac Stent-01/03/2003 Implanted:01/04/20 03 (Quantity not on file) Stent CORDIS LEXA VELOCITY [id number] / / [id number] documented as of this encounter Visit Diagnoses Diagnosis Malignant neoplasm of left breast in female, estrogen receptor positive, unspecified site of breast- Primary documented in this encounter Advance Directives [...] the patient have Health Care Power of Advertising Campaign Manager? No Healthcare Agents on File Name Relationship Healthcare Agent Relationship Communication Gus Rosenbaum Jr. Adult Child Health Care R epresentative (appointed verbally by patient or by statute hierarchy) Care Teams Correctional Cook Relationship Specialty Start Date End Date Jasson Denney MD [address] [place] [address] [place] [id number] PCP - General Family Medicine 03/22/16 documented as of this encounter
--- OUTSIDE RECORDS SUMMARY | 2023-06-24 05:40 | External Medical Summary | Summary of Care ---
Author Name Unknown Organization [facility] Address [address] [facility] [address] Phone [phone] Care Team Providers Care Defect Repairer Glassware Name Role Phone Jasson Denney MD Primary Care Provide r Reason for Visit * Reason Onset Date Comments Nurse Documentation 03/04/2023 Encounter Details Date Type Department Care Team Description 03/04/2023 Scheduled Telephone Ancillary Ronnie Garcia[address] [place] [address] Nurse Felipe Follow Up Phone Call Schedule [address] [place] [address] Arrived Allergies Active Allergy Reactions Severity Noted Date Comments Adhesive Tape 04/11/2006 Latex 06/06/2022 Other reaction(s): rash/itchy documented as of this encounter (statuses as of 03/04/2023) Medications Medication Sig Dispensed Refills Start Date [...] every night at bedtime. 0 07/12/2019 Active Phenylephrine-[place] Butter 0.25-88.44 % Rectal Suppository Administer into [...] MOUTH DAILY 90 Tablet 3 07/22/2022 Active Pantoprazole Sodium 20 MG Oral Tablet Delayed Release (Protonix) TAKE 1 TABLET BY MOUTH DAILY 1/2 HOUR BEFORE THE FIRST MEAL OF THE DAY. DO NOT CRUSH, SPLIT OR CHEW THE TABLET 90 Tablet 2 07/22/2022 Active Clopidogrel Bisulfate 75 MG Oral Tablet (pLAVix)Indications :HTN, goal below 140/90 TAKE 1 TABLET BY MOUTH DAILY 90 Tablet 2 07/22/2022 Active Dexamethasone 4 MG Oral TabletIndications:M alignant neoplasm of left breast in female, estrogen receptor positive, unspecified site of breast (HCC) Take 8 mg (2 tablets) twice for 3 days (starting day before, on the day and day after chemo) 72 Tablet 0 09/09/2022 Active Isosorbide Mononitrate ER 30 MG Oral Tablet Extended Release 24 Hour (Imdur)Indications: Coronary artery disease involving [place] coronary artery of [place] heart without angina pectoris TAKE 1 TABLET [...] by mouth at bedtime. 30 Capsule 1 02/18/2023 Active documented as of this encounter (statuses as of 03/04/2023) Active Problems Problem Noted Date Encounter for antineoplastic chemotherap y 09/10/2022 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, estrogen receptor positive 06/28/2022 Postherpetic neuralgia 06/28/2022 Hiatal hernia 08/07/2021 Schatzki's ring 08/07/2021 S/P angioplasty with stent 11/15/2020 Coronary artery disease involving [place] heart without angina pectoris 11/15/2020 Cardiac murmur [...] as of this encounter (statuses as of 03/04/2023) Resolved Problems Problem Noted Date Resolved Date [...] as of this encounter (statuses as of 03/04/2023) Immunizations Name Administration Dates Next Due COVID-19 mRNA, LNP-s, No Pre serve, 2-Dose Series (Trans[employer]is) 08/11/2020,07/21/2020 COVID-19, LNP-s, No Preserve , Dusty-sucrose, [...] encounter Miscellaneous Notes * Telephone Encounter - Ankita Cardenas LPN - 03/04/2023 11:08 AM EDT Nurse phone call in 2 weeks to check on gabapentin ? Helping Pt states she does think the gabapentin is helping with her back pain, she states she was even ableto cut grass the other day. documented in this encounter Plan of Treatment Upcoming Encounters Date Type Specialty Care Team Description 03/12/2023 Office Visit Dermatology Melanie Frank PA-C [address] [place] [address] [place] [phone] 03/20/2023 Office Visit Family Medicine Imani Hart PA-C [address] [place] [place] [address] [place] [address] 03/31/2023 Office Visit Hematology Oncology Gay Lu MD [address] [place] [address] 04/24/2023 Office Visit Cardiology Guillermo Mejia, DO [address] [place] [address] 05/07/2023 Office Visit Nephrology Valery Urena PA-C [address] [place] [address] 06/12/2023 Imaging Radiology 08/04/2023 Imaging Radiology 08/12/2023 Office Visit Family Medicine Jasson Denney MD [address] [place] [address] [place] [address] Health Maintenance Due Date Last Done Comments [...] Additional history exists CKD PHOS USE SMARTSET 97525 07/25/2023 02/0 02/2023, 01/10/2022, 01/11/2021, Additional history exists O2 ASSESSMENT COMPLETED IN PAST YEAR FOR COPD 08/15/2023 08/14/2022 CKD HGB USE SMARTSET 83070 11/26/202311/25, 11/25/2022, 11/04/2022, Additional history exists DXA [...] this encounter Medical Devices Implanted Type Area Manager Care Device Identifier Shelf Expiration Date Model / Serial / Lot Center Cross Excluder Aaa Endoprothesis System-07/07/2019 Implanted:07/07/19 20 (Quantity not on file) Graft Description:Multiple implant s from system on same day [id number] Cordis Bx Velocity Cardiac Stent-06/02/2002 Implanted:06/02/20 02 (Quantity not on file) Stent CORDIS LEXA BX VELOCITY [id number] / / [id number] Cordis Bx Velocity Cardiac Stent-01/03/2003 Implanted:01/04/20 03 (Quantity not on file) Stent CORDIS LEXA VELOCITY [id number] / / [id number] documented as of this encounter Advance Directives [...] the patient have Health Care Power of Supervisor Crack Off? No Healthcare Agents on File Name Relationship Healthcare Agent Relationship Communication Gus Rosenbaum Jr. Adult Child Health Care R epresentative (appointed verbally by patient or by statute hierarchy) Care Teams Defect Repairer Glassware Relationship Specialty Start Date End Date Jasson Denney MD [address] [place] [address] [place] [address] PCP - General Family Medicine 03/22/16 documented as of this encounter
--- OUTSIDE RECORDS SUMMARY | 2023-06-24 05:40 | External Medical Summary ---
Author Name Unknown Address Unknown Organization K01:LABORATORY [facility] [place] - [address] [facility] [address] Laboratory Report Ordering Provider Test Date Status JOSE ALFREDOLYNN 03/20/2023 12:02:32 Final Observation Date Value Abnormality Reference (Units ) Status HbA1C 03/20/2023 12:02:32 6.1 Above high normal 4. 0-5.6 (%) Final The use of HbA1c to monitor glycemic status is based on normal hemoglobin and HbA composition. This test should not be used in patients with abnormal hemoglobin that affects the half life of the red blood cell or the in vivo glycation rates. Glucose, estimated average 03/20/2023 12:02:32 128 Above high normal <126 (mg/dL) Fritz zhang Performing Location LABORATORY [facility] [place] - [address] [facility] [address]
--- OUTSIDE RECORDS SUMMARY | 2023-06-24 05:40 | External Medical Summary ---
Author Name Unknown Address Unknown Organization K01[place] [place] [address] [place] [address] Laboratory Report Ordering Provider Test Date Status MARIAN DAVIS 03/20/2023 12:02:32 Final Observation Date Value Abnormality Reference (Units ) Status BUN 03/20/2023 12:02:32 24 Above high normal 6-20 (mg/dL) Final Creatinine 03/20/2023 12:02:32 1.6 Above high normal 0.5-1.0 (mg/dL) Final Glomerular filtration rate/1.73 sq M.predicted [Volume Rate/Area] in Serum, Plasma or Blood by Creatinine-based formula (CKD-EPI) 03/20/2023 12:02:32 32 Below low normal >=60 (mL/min) Final eGFR is calculated based on the CKD-EPI 2020 equation SODIUM 03/20/2023 12:02:32 143 135-146 (m mol/L) Final Potassium 03/20/2023 12:02:32 4.6 3.5-5.1 (m mol/L) Final Cl 03/20/2023 12:02:32 106 98-107 (mm ol/L) Final CO2 03/20/2023 12:02:32 27 22-32 (mmo l/L) Final Anion gap 03/20/2023 12:02:32 10 7-15 (mmol /L) Final Glucose 03/20/2023 12:02:32 94 70-120 (mg /dL) Final Albumin 03/20/2023 12:02:32 4.2 3.8-5.0 (g /dL) Final AST (Aspartate aminotransferase) 03/20/2023 12:02:32 21 10-35 (U/L) Final Alk Phos 03/20/2023 12:02:32 70 35-130 (U/ L) Final Bilirubin, Total 03/20/2023 12:02:32 0.2 <=1 .2 (mg/dL) Final Calcium 03/20/2023 12:02:32 9.6 8.4-10.2 ( mg/dL) Final Protein 03/20/2023 12:02:32 6.3 6.0-8.3 (g /dL) Final ALT (Alanine aminotransferase) 03/20/2023 12:02:32 15 10-35 (U/L) Final Performing Location [facility] [place] [address] [facility] [address]
--- OUTSIDE RECORDS SUMMARY | 2023-06-24 05:40 | External Medical Summary ---
Author Name Unknown Address Unknown Organization K01:LABORATORY [facility] [place] - [address] [facility] [place] [address] Laboratory Report Ordering Provider Test Date Status MARIAN DAVIS 03/20/2023 12:02:32 Final Observation Date Value Abnormality Reference (Units ) Status SYNC LEUKOCYTES IN BLOOD BY AUTOMATED COUNT 03/20/2023 12:02:32 7.60 4.00-10.80 (K/uL) Final Segs 03/20/2023 12:02:32 75.7 Above high normal 40.0-75.0 (%) Final Lymphs % 03/20/2023 12:02:32 10.8 Below low normal 18.0-42.0 (%) Final Monos 03/20/2023 12:02:32 8.4 1.0-11.0 (%) Final Eosinophils 03/20/2023 12:02:32 3.9 0.0-6.0 (%) Final Basos 03/20/2023 12:02:32 0.8 0.0-2.0 (%) Final Immature Granulocyte, Percent 03/20/2023 12:02:32 0.4 0.0-2.0 (%) Final Absolute Segs 03/20/2023 12:02:32 5.75 1.80-7.70 (K/uL) Final Lymphs, absolute 03/20/2023 12:02:32 0.82 Below low normal 1.00-4.80 (K/ul) Final Monos, Abs 03/20/2023 12:02:32 0.64 0.00-1.10 (K/uL) Final Eos, Abs 03/20/2023 12:02:32 0.30 0.00-0.70 (K/uL) Final Basos, Abs 03/20/2023 12:02:32 0.06 0.00-0.20 (K/uL) Final Immature Granulocytes, Number 03/20/2023 12:02:32 0.03 0.00-0.20 (K/uL) Final Performing Location LAB[facility]ATORY [facility] [place] - [facility] [address] [facility] [address]
--- OUTSIDE RECORDS SUMMARY | 2023-06-24 05:40 | External Medical Summary ---
Author Name Unknown Address Unknown Organization K01:[facility]ATORY [facility] - [address] [place] [address] Laboratory Report Ordering Provider Test Date Status KING PIRES 03/20/2023 12:02:32 Final Observation Date Value Abnormality Reference (Units ) Status Magnesium 03/20/2023 12:02:32 2.1 1.5-2.6 (m g/dL) Final Performing Location LABORATORY [facility] - [address] [place] [address]
--- OUTSIDE RECORDS SUMMARY | 2023-06-24 05:40 | External Medical Summary | Summary of Care ---
Author Name Unknown Organization [facility] Address [address] [facility] [place] [address] Phone [phone] Care Team Providers Care Cotton Ball Machine Tender Name Role Phone Jasson Denney MD Primary Care Provide r Reason for Referral * Evaluate & Treat - Unlimited Visits (Within 10 days (routine)) - Authorized Specialty Diagnoses / Procedures Referred By Radha romero Referred To Contact Dermatology Diagnoses Squamous cell cancer of skin of left hand Melanie Frank PA-C [address] [place] [address] [place] [id number] Referral ID Status Reason Start Date Expiration Date Visits Requested Visits Authorized [id number] Authorized Specialty Services Required 03/18/2023 1 1 [...] Team Description 03/18/2023 Telephone Dermatology Yair Garcia [address] [place] [address] [place] [phone] Melanie Frank PA-C [address] [place] [address] [place] [address] Appointment Allergies Active Allergy Reactions Severity Noted [...] every night at bedtime. 0 07/12/2019 Active Phenylephrine-[place] Butter 0.25-88.44 % Rectal Suppository Administer into [...] 24 Hour (Imdur)Indications: Coronary artery disease involving [place] coronary artery of [place] heart without angina pectoris TAKE 1 TABLET [...] with stent 11/15/2020 Coronary artery disease involving [place] heart without angina pectoris 11/15/2020 Cardiac murmur [...] mRNA, LNP-s, No Pre serve, 2-Dose Series ([employer]) 08/11/2020,07/21/2020 COVID-19, LNP-s, No Preserve , Dusty-sucrose, [...] Telephone Encounter - CORY Garcia - 03/19/2023 11:33 AM EDT Spoke to patient and scheduled for mohs with DR Sr for 04/07 at 1pm. Will mail a mohs packet * Telephone Encounter - CORY Garcia - 03/19/2023 8:14 AM EDT 03/19 Ubaldo Sr/Baldev- please review photo, to large for a 1pm mohs spot? * Telephone Encounter - Melanie Frank PA-C - 03/18/2023 12:15 PM EDT Spoke to pt regarding bx result. SCC, plan on Mohs in [place]. Pt is aware she will be calledto schedule the appt. Melanie Frank S, SURAJ A. Skin, L dorsal hand, shave: Invasive well-differentiated squamous cell carcinoma documented in this encounter Plan of Treatment Upcoming Encounters Date Type Specialty Care Team Description 03/20/2023 Office Visit Family Medicine Imani Hart PA-C [address] [place] [address] [place] [address] 03/31/2023 Office Visit Hematology Oncology Gay Lu MD [address] [place] [address] 04/07/2023 Office Visit Dermatology Walter Sr MD [address] [place] [address] 04/29/2023 Office Visit Cardiology Guillermo Mejia, DO [address] [place] [address] 05/07/2023 Office Visit Nephrology Valery Urena PA-C [address] [place] [address] 06/12/2023 Imaging Radiology 08/04/2023 Imaging Radiology 08/12/2023 Office Visit Family Medicine Jasson Denney MD [address] [place] [address] [place] [address] 04/05/2024 Office Visit Dermatology Melanie Frank PA-C [address] [place] [address] [place] [address] Scheduled Referrals Name Type Priority Associated Diagnoses [...] Additional history exists CKD PHOS USE SMARTSET 74476 07/25/2023 02/0 02/2023, 01/10/2022, 01/11/2021, Additional history exists O2 ASSESSMENT COMPLETED IN PAST YEAR FOR COPD 08/15/2023 08/14/2022 CKD HGB USE SMARTSET 49889 11/26/202311/25, 11/25/2022, 11/04/2022, Additional history exists DXA [...] this encounter Medical Devices Implanted Type Area Turfgrass Technician Device Identifier Shelf Expiration Date Model / Serial / Lot Hye Excluder Aaa Endoprothesis System-07/07/2019 Implanted:07/07/19 20 (Quantity not on file) Graft Description:Multiple implant s from system on same day [id number] Cordis Bx Velocity Cardiac Stent-06/02/2002 Implanted:06/02/20 02 (Quantity not on file) Stent CORDIS LEXA BX VELOCITY [id number] / / [id number] Cordis Bx Velocity Cardiac Stent-01/03/2003 Implanted:01/04/20 03 (Quantity not on file) Stent CORDIS LEXA VELOCITY [id number] / / [id number] documented as of this encounter Visit Diagnoses [...] the patient have Health Care Power of Turner Machine Operator? No Healthcare Agents on File Name Relationship Healthcare Agent Relationship Communication Gus Rosenbaum Jr. Adult Child Health Care R epresentative (appointed verbally by patient or by statute hierarchy) Care Teams Cotton Ball Machine Tender Relationship Specialty Start Date End Date Jasson Denney MD [address] [place] [address] [place] [address] PCP - General Family Medicine 03/22/16 documented as of this encounter
--- OUTSIDE RECORDS SUMMARY | 2023-06-24 05:40 | External Medical Summary | Summary of Care ---
Author Name Unknown Organization [facility] Address [address] [facility] [address] Phone [phone] Care Team Providers Care Senior Software Engineer Name Role Phone Jasson Denney MD Primary Care Provide r Reason for Visit * Reason Onset Date Comments Nurse Documentation 03/04/2023 Encounter Details Date Type Department Care Team Description 03/04/2023 Scheduled Telephone Ancillary Ronnie Garcia[address] [place] [address] Nurse Felipe Follow Up Phone Call Schedule [address] [place] [address] Arrived Allergies Active Allergy Reactions Severity Noted [...] 24 Hour (Imdur)Indication s:Coronary artery disease involving [place] coronary artery of [place] heart without angina pectoris TAKE 1 TABLET [...] at bedtime. 90 Capsule 1 03/04/2023 Active Gabapentin 100 MG Oral Capsule (Neurontin) Take 1 Capsule by mouth at bedtime. 30 Capsule 1 02/18/2023 3 Discontinue d(Refill) documented as of this encounter (statuses as of 03/04/2023) Active Problems Problem Noted Date Encounter for antineoplastic chemotherap y 09/10/2022 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, estrogen receptor positive 06/28/2022 Postherpetic neuralgia 06/28/2022 Hiatal hernia 08/07/2021 Schatzki's ring 08/07/2021 S/P angioplasty with stent 11/15/2020 Coronary artery disease involving [place] heart without angina pectoris 11/15/2020 Cardiac murmur [...] mRNA, LNP-s, No Pre serve, 2-Dose Series (Bib [employer]uck) 08/11/2020,07/21/2020 COVID-19, LNP-s, No Preserve , Dusty-sucrose, Ages 12+ (Bib + Tuck) 02/05/2022,08/07/2021 Covid-19, Mrna, Lnp-s, Pf, B ivalent, 30 Mcg, IM, 12 yrs and above (Bib + Tuck) 06/11/2022 Pneumococcal Conjugate Vacc, 13 Valent (Prevnar) [...] as of this encounter Miscellaneous Notes * Addendum Note - Imani Bailey PA-C - 03/04/2023 12:11 PM EDTAddended by: IMANI BAILEY on: 03/04/2023 12:11 PM Modules accepted: Orders * Telephone Encounter - Imani Bailey PA-C - 03/04/2023 12:11 PM EDT Wonderful. Continue same * Telephone Encounter - Ankita Cardenas LPN [...] 03/12/2023 Office Visit Dermatology Melanie Frank PA-C [address] [place] [address] [place] [address] 03/20/2023 Office Visit Family Medicine Imani Bailey PA-C [address] [place] [address] [place] [address] 03/31/2023 Office Visit Hematology Oncology Gay Lu MD [address] [place] [address] 04/24/2023 Office Visit Cardiology Guillermo Mejia, [address] [place] [address] 05/07/2023 Office Visit Nephrology Valery Urena PA-C [address] [place] [address] 06/12/2023 Imaging Radiology 08/04/2023 Imaging Radiology 08/12/2023 Office Visit Family Medicine Jasson Denney MD [address] [place] [address] [place] [address] Health Maintenance Due Date Last Done Comments [...] Additional history exists CKD PHOS USE SMARTSET 87418 07/25/2023 0202/2023, 01/10/2022, 01/11/2021, Additional history exists O2 ASSESSMENT COMPLETED IN PAST YEAR FOR COPD 08/15/2023 08/14/2022 CKD HGB USE SMARTSET 54152 11/26/202311/25, 11/25/2022, 11/04/2022, Additional history exists DXA [...] this encounter Medical Devices Implanted Type Area Intraoperative Neuro Tech Device Identifier Shelf Expiration Date Model / Serial / Lot [place] Excluder Aaa Endoprothesis System-07/07/2019 Implanted:07/07/19 20 (Quantity not on file) Graft Description:Multiple implant s from system on same day [id number] Cordis Bx Velocity Cardiac Stent-06/02/2002 Implanted:06/02/20 02 (Quantity not on file) Stent apomio BX VELOCITY [id number] / / [id number] Cordis Bx Velocity Cardiac Stent-01/03/2003 Implanted:01/04/20 03 (Quantity not on file) Stent CORDIS LEXA VELOCITY [id number] / / [id number] documented as of this encounter Advance Directives [...] the patient have Health Care Power of Bar Pilot? No Healthcare Agents on File Name Relationship Healthcare Agent Relationship Communication Gus Rosenbaum Jr. Adult Child Health Care R epresentative (appointed verbally by patient or by statute hierarchy) Care Teams Senior Software Engineer Relationship Specialty Start Date End Date Jasson Denney MD [address] [place] [address] [place] [address] PCP - General Family Medicine 03/22/16 documented as of this encounter
--- OUTSIDE RECORDS SUMMARY | 2023-06-24 05:41 | External Medical Summary | Summary of Care ---
Author Name Unknown Organization [facility] [address] [facility] [address] Phone [phone] Care Team Providers Care Tilt Tray Driver Name Role Phone Jasson Denney MD Primary Care Provide r Reason for Visit * Reason Onset Date Comments Test Results 02/24/2023 Encounter Details Date Type Department Care Team Description 02/24/2023 Telephone Family Medicine [address] [phone] Jasson Denney MD [address] [place] [address] [place] [phone] Test Results Allergies Active Allergy Reactions Severity Noted Date Comments Adhesive Tape 04/11/2006 Latex 06/06/2022 Other reaction(s): rash/itchy documented as of this encounter (statuses as of 02/26/2023) Medications Medication Sig Dispensed Refills Start Date [...] every night at bedtime. 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, estrogen receptor positive 06/28/2022 Postherpetic neuralgia 06/28/2022 Hiatal hernia 08/07/2021 Schatzki's ring 08/07/2021 S/P angioplasty with stent 11/15/2020 Coronary artery disease involving inupiat heart without angina pectoris 11/15/2020 Cardiac murmur [...] as of this encounter (statuses as of 02/26/2023) Resolved Problems Problem Noted Date Resolved Date [...] as of this encounter (statuses as of 02/26/2023) Immunizations Name Administration Dates Next Due COVID-19 mRNA, LNP-s, No Pre serve, 2-Dose Series ([employer]) 08/11/2020,07/21/2020 COVID-19, LNP-s, No Preserve , Dusty-sucrose, Ages 12+ (Pfizer) 02/05/2022,08/07/2021 Covid-19, Mrna, Lnp-s, Pf, B ivalent, 30 Mcg, IM, 12 yrs and above ([employer]) 06/11/2022 Pneumococcal Conjugate Vacc, 13 Valent (Prevnar) [...] Miscellaneous Notes * Telephone Encounter - CORY Mckoy - 02/26/2023 3:54 PM EDT Patient has been notified of the message. Patient stated that she would like to discuss her optionsin more detail at her next appt with Imani Hart on 03/20/23. * Telephone Encounter - Tameka Johnson RN - 02/26/2023 3:17 PM EDT Images from the original note were not included. Left message for pt to call us back, does she want an MRI? Reading Physician Reading Date Result Priority Jared Boswell MD [phone] 02/20/2023 Narrative & Impression EXAM XR L SPINE AP AND LATERAL-02/18/2023 3:18 pm HISTORY Low back pain, radiculopathy B/L LE TECHNIQUE Three views of the lumbar spine COMPARISON None. FINDINGS Dextroconvex curvature of the lower thoracic spine and moderate levoscoliosis of the lumbar spine. Minimal anterolisthesis of L4 on L5, slight retrolisthesis of L3 on L4, moderate retrolisthesis of L2 on L3 and mild retrolisthesis of L1 on L2. Degenerative changes of the lumbar spine which are fairly severe at upper lumbar levels with marked disc space loss and osteophytes. There is significant posterior facet disease at mid to lower lumbar levels, also with degenerative change seen some of thespinous processes. Vascular stents are present at the aortoiliac regions. Vascular calcifications. IMPRESSION IMPRESSION Scoliotic curvature of the thoracolumbar spine with multilevel listhesis and severe degenerative changes. Recommend MRI if no contraindication for substantially improved assessment. 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 They recommended considering MRI if she would be willing and is interested in something like injections. We could also have her see Dr. Horton (interventional pain) first if she'd like Thanks documented in this encounter Plan of Treatment Upcoming Encounters Date Type Specialty Care Team Description 03/04/2023 Scheduled Telephone [place], Nurse Follow Up Phone Call Schedule [address] [place] [phone] 03/12/2023 Office Visit Dermatology Melanie Frank PA-C [address] [place] [address] [place] [phone] 03/20/2023 Office Visit Family Medicine Imani Hart PA-C [address] [place] [address] [place] [phone] 03/31/2023 Office Visit Hematology Oncology Gay Lu MD [address] [place] [address] 04/24/2023 Office Visit Cardiology Guillermo Mejia, DO [address] [place] [address] 05/07/2023 Office Visit Nephrology Valery Urena PA-C [address] [place] [address] 06/12/2023 Imaging Radiology 08/04/2023 Imaging Radiology 08/12/2023 Office Visit Family Medicine Jasson Denney MD [address] [place] [address] [place] [phone] Health Maintenance Due Date Last Done Comments [...] Additional history exists CKD PHOS USE SMARTSET 76853 07/25/2023 02/02/2023, 01/10/2022, 01/11/2021, Additional history exists O2 ASSESSMENT COMPLETED IN PAST YEAR FOR COPD 08/15/2023 08/14/2022 CKD HGB USE SMARTSET 81249 11/26/202311/25, 11/25/2022, 11/04/2022, Additional history exists DXA [...] this encounter Medical Devices Implanted Type Area Glass Bender Device Identifier Shelf Expiration Date Model / Serial / Lot [place] Excluder Aaa Endoprothesis System-07/07/2019 Implanted:07/07/19 20 (Quantity not on file) Graft Description:Multiple implant s from system on same day [id number] Cordis Bx Velocity Cardiac Stent-06/02/2002 Implanted:06/02/20 02 (Quantity not on file) Stent CORDIS LEXA BX VELOCITY [id number] / / [id number] Cordis Bx Velocity Cardiac Stent-01/03/2003 Implanted:01/04/20 03 (Quantity not on file) Stent CORDIS LEXA VELOCITY [id number] / / [id number] documented as of this encounter Advance Directives [...] the patient have Health Care Power of Chlorine Cell Tender? No Healthcare Agents on File Name Relationship Healthcare Agent Relationship Communication Gus Rosenbaum Jr. Adult Child Health Care R epresentative (appointed verbally by patient or by statute hierarchy) Care Teams Tilt Tray Driver Relationship Specialty Start Date End Date Jasson Denney MD [address] [place] [address] [place] [phone] PCP - General Family Medicine 03/22/16 documented as of this encounter
--- OUTSIDE RECORDS SUMMARY | 2023-06-24 05:41 | External Medical Summary | Summary of Care ---
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; Dyslipidemia, goal LDL below 70; COPD, mild ([facility]); Chronic kidney disease, stage 3b ([facility]); Hypertensive kidney disease with stage 3b chronic kidney disease; Malignant neoplasm of left breast in female, estrogen receptor positive, unspecified site of breast ([facility]); Moderate episode of recurrent major depressive disorder ([facility]); Skin lesion Allergies Active Allergy Reactions Severity Noted Date Comments Adhesive Tape 04/11/2006 Latex 06/06/2022 Other reaction(s): rash/itchy documented as of this encounter (statuses as of 02/18/2023) Medications Medication Sig Dispensed Refills Start Date [...] 24 Hour (Imdur)Indication s: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 30 Capsule 1 02/18/2023 Active Lidocaine 5 % External Patch (Lidoderm)Indicat ions:Postherpetic neuralgia Place 1 Patch topically on the skin daily. 30 Patch 0 06/24/2022 3 Discontinue d(Medicatio n List Clean Up) Ondansetron HCl 8 MG Oral TabletIndications :Malignant neoplasm of left breast in female, estrogen receptor positive, unspecified site of breast (HCC) Take 1 Tablet by mouth every 8 hours as needed for Nausea. 30 Tablet 0 09/09/2022 3 Discontinue d(Medicatio n List Clean Up) Prochlorperazine Maleate 10 MG Oral Tablet (Compazine)Indica tions:Malignant neoplasm of left breast in female, estrogen receptor positive, unspecified site of breast (HCC) Take 1 Tablet by mouth every 6 hours as needed for Nausea. 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 11/15/2020 Cardiac murmur [...] as of this encounter (statuses as of 02/18/2023) Resolved Problems Problem Noted Date Resolved Date [...] as of this encounter (statuses as of 02/18/2023) Immunizations Name Administration Dates Next Due COVID-19 mRNA, LNP-s, No Pre serve, 2-Dose Series ([employer]) 08/11/2020,07/21/2020 COVID-19, LNP-s, No Preserve , Dusty-sucrose, Ages 12+ (Pfizer) 02/05/2022,08/07/2021 Covid-19, Mrna, Lnp-s, Pf, B ivalent, 30 Mcg, IM, 12 yrs and above ([employer]) 06/11/2022 Pneumococcal Conjugate Vacc, 13 Valent (Prevnar) [...] Sign Reading Time Taken Comments Blood Pressure 106/54 02/18/2023 1:40 PM EDT Pulse 70 02/18/2023 1:40 PM EDT Temperature 35.6 C (96 F) 02/18/2023 1:40 PM EDT Respiratory Rate - - Oxygen Saturation 94% 02/18/2023 1:40 PM EDT Inhaled Oxygen Concentration - - Weight 73 kg (160 lb 14.4 oz) 02/18/2023 1:40 PM EDT Height - - Body Mass Index 25.4 08/14/2022 7:10 AM EST documented in this encounter Progress Notes * Imani Hart PA-C - 02/18/2023 1:46 PM EDT Images from the original note were not included. History of Present Illness Afua Rosenbaum is a 82 year old female that presents for Re-Check Nursing Notes: Maren Lee, MAICO 02/18/23 1339 Sign at exiting of workspace She is here for a regular recheck today. She wants to talk about her back and leg pain. Brief Clinical History Ms. Rosenbaum is an 82 year old woman last seen in Family Medicine 6 months ago (08-12-22). She has h/obreast, prostate, or other cancer, Chronic kidney disease, stage 3b (HCC), CKD stage 3, COPD, COPD,mild (HCC), depression, Hypertensive kidney disease with stage 3b chronic kidney disease (HCC), Malignant neoplasm of left breast in female, estrogen receptor positive (HCC), and Moderate episode of recurrent major depressive disorder (HCC). HPI: Afua Rosenbaum is a 82 year old female presenting to the office today for routine recheck. She has pain in the B/L low back and into her hips that goes down her legs. She isn't interested in surgery, but she would like other options. She tries lidocaine patches without much improvement. She has done PT in the past that didn't help, but it was years ago. She can't stand very long because her back starts to hurt and wants to give out. Her knees also seem to hurt around the same time. Her legs feel 'sore' and she gets burning in both legs. Both legs are equally painful. The pain in her back is 'just pain' but no burning. She does have some pain into the right side of her spine as well. She has been having some fine itchy rash on her arms. She isn't seeing Derm until next year again in follow up. She has a lesion on the posterior left hand which is raised and crusted. It isn't healing. She had some pus from the area a week or 2 ago, but now it doesn't hurt as much. She has been evaluated in the past for left knee surgery, but that was postponed because of her AAARupture. That was back in 2019. She doesn't feel that her knee hurts as much as her hips/back. Reviewed record/notes including: Derm, Oncology, MRI breast, XRay knee. Current Outpatient Medications Medication Instructions Acetaminophen (TYLENOL) 650 mg, Oral, Q6H PRN Atenolol 25 MG Oral Tablet (Tenormin) TAKE 1 TABLET BY MOUTH DAILY IN AM CENTRUM SILVER PO TABS one a day Clopidogrel Bisulfate 75 MG Oral Tablet (pLAVix) TAKE 1 TABLET BY MOUTH DAILY cyclobenzaprine (FLEXERIL) 10 mg, Oral, TID PRN Dexamethasone 4 MG Oral Tablet Take 8 mg (2 tablets) twice for 3 days (starting day before, on the day and day after chemo) Docusate Sodium (COLACE) 100 mg, Oral, QHS [...] TABLET BY MOUTHEVERY DAY IN THE MORNING Lidocaine 5 % External Patch (Lidoderm) 1 Patch, Transdermal, Q24H Nitroglycerin (NITROSTAT) 0.4 mg, Sublingual, PRN ondansetron (ZOFRAN) 8 mg, Oral, Q8H PRN OSCAL 500/200 D-3 500-200 MG-UNIT PO TABS Take 1 Tablet by mouth in the morning. Pantoprazole Sodium 20 MG Oral Tablet Delayed Release (Protonix) TAKE 1 TABLET BY MOUTH DAILY 1/2 HOUR BEFORE THE FIRST MEAL OF THE DAY. DO NOT CRUSH, SPLIT OR CHEW THE TABLET Phenylephrine-[place] Butter 0.25-88.44 % Rectal Suppository Rectal, PRN Polyethylene Glycol 3350 (MIRALAX) 17 g, Oral, DAILY PRN prochlorperazine (COMPAZINE) 10 mg, Oral, Q6H PRN rosuvastatin (CRESTOR) 20 mg, Oral, Daily(AM) VENTOLIN HFA 108 (90 Base) MCG/ACT inhaler INHALE 2 PUFFS BY MOUTH EVERY 4 HOURS NEEDED FOR COUGH, SHORTNESS OF BREATH OR WHEEZING. Med list reviewed by me today. Physical Exam Vitals: 02/18/23 1340 Temp: 35.6 C (96 F) Pulse: 70 SpO2: 94% BP: 106/54 BP Readings from Last 3 Encounters: 02/18/23 106/54 12/11/22 109/61 11/26/22 126/63 Physical exam: General: Well-Developed. Well appearing. No acute distress. HENT: Normocephalic. Atraumatic. Hearing normal. Neck: No tracheal deviation. ROM intact. Cardiovascular: RRR. Normal S1/S2 noted. No murmur, rub or gallop appreciated. Pulmonary: No respiratory distress. No accessory muscle use. Faint rales in the LLL. Musculoskeletal: ROM intact and appears normal. No gait disturbance. No edema or cyanosis. No calf tenderness. Neurologic: Alert. Oriented x 3. Appears stated age. CN 2-12 grossly intact. Skin: Warm and dry. Note skin lesion on the left posterior hand. Raised borders. Crusted center. Psych: Mood and affect normal. I have reviewed the following results: CMP, Lipid Panel, and CBC Assessment and Plan Chronic bilateral low back pain with bilateral sciatica Recommend trial of gabapentin. Consider PT. She agreed. Side effects explained in detail. Xrays today - XR L SPINE AP AND LATERAL SOB (shortness of breath) Lung crackles With faint rales, recommend XR of the chest to assess. - XR CHEST 2 VIEWS HTN, goal below 130/80 Stable. Continue the same. 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 COPD, mild (HCC) Overall stable though she has some mild SOB x 3-4 weeks. CXR as above Chronic kidney disease, stage 3b (HCC) Hypertensive kidney disease with stage 3b chronic kidney disease Keep f/u with Nephrology Malignant neoplasm of left breast in female, estrogen receptor positive, unspecified site of breast(HCC) Continue f/u with Hematology/Oncology Moderate episode of recurrent major depressive disorder (HCC) Continue duloxetine. Skin Lesion Recommended that I will reach out to Derm. Likely needs appt for bx. Feel that this may be keratoacanthoma, SCC, or similar. No signs of infection today. Wrap-Up Check-out note: Nurse phone call in 2 weeks to check on gabapentin ? Helping 1 month with me Time: I spent a total of 40-54 minutes (exact time 45 mins) on the date of service in preparation, delivery, and documentation of the care provided to Afua Rosenbaum excluding any time spent in the performance of separately billed services. documented in this encounter Nursing Notes * Maren Lee CMA - 02/18/2023 1:38 PM EDT She is here for a regular recheck today. She wants to talk about her back and leg pain. documented in this encounter Plan of Treatment Upcoming Encounters Date Type Specialty Care Team Description 03/31/2023 Office Visit Hematology Oncology Tabitha, Gay Vitale MD [address] [place] [address] 04/24/2023 Office Visit Cardiology Guillermo Mejia, [address] [place] [address] 05/07/2023 Office Visit Nephrology Valery Urena PA-C [address] [place] [address] 06/12/2023 Imaging Radiology 08/04/2023 Imaging Radiology 08/12/2023 Office Visit Family Medicine JumanaJasson clayton MD [address] [place] [address] [place] [phone] Pending Results Name Type Priority Associated Diagnoses Date /Time XR L SPINE AP AND LATERAL Medical Imaging Routine Chronic bilateral low back pain with bilateral sciatica 02/18/2023 2:41 PM EDT XR CHEST 2 VIEWS Medical Imaging Routine SOB (shortness of breath) Lung crackles 02/18/2023 2:41 PM EDT Health Maintenance Due Date Last Done Comments Alpha-1 Antitrypsin 1958 DTaP,Tdap,and Td Vaccines (1 - Tdap) 1959 Zoster Vaccines (1 of 2) 1990 *COPD SEVERITY VERIFIED BY PFT 01/02/2018 Depression Screening, Annual for Pts 12 and Over 08/07/2022 08/07/2021 Influenza Vaccine (FLU shot) (#1) 2023 04/04/2022, 03/19/2021, 04/06/2020, Additional history exists HbA1c 03/20/2023 03/20/2022, 10/14, 05/02/2020, Additional history exists GFR 05/27/2023 11/25/2022, 10/15, 10/14/2022, Additional history exists Albumin/Creatinine Ratio 07/25/2023 023, 08/07/2021, 01/12/2021, Additional history exists CKD PHOS USE SMARTSET 89515 07/25/2023 02/0 02/2023, 01/10/2022, 01/11/2021, Additional history exists O2 ASSESSMENT COMPLETED IN PAST YEAR FOR COPD 08/15/2023 08/14/2022 CKD HGB USE SMARTSET 29357 11/26/202311/25, 11/25/2022, 11/04/2022, Additional history exists DXA [...] this encounter Medical Devices Implanted Type Area Train Operations Manager Device Identifier Shelf Expiration Date Model / Serial / Lot [place] Excluder Aaa Endoprothesis System-07/07/2019 Implanted:07/07/19 20 (Quantity not on file) Graft Description:Multiple implant s from system on same day [id number] Cordis Bx Velocity Cardiac Stent-06/02/2002 Implanted:06/02/20 02 (Quantity not on file) Stent CORDIS LEXA BX VELOCITY [id number] / / [id number] Cordis Bx Velocity Cardiac Stent-01/03/2003 Implanted:01/04/20 03 (Quantity not on file) Stent CORDIS LEXA VELOCITY [id number] / / [id number] documented as of this encounter Visit Diagnoses Diagnosis Chronic bilateral low back pain with bilateral sciatica- Primary SOB (shortness of breath) Shortness of breath Lung crackles Abnormal chest sounds HTN, goal below 130/80 Unspecified essential hypertension 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 No Healthcare Agents on File Name Relationship Healthcare Agent Relationship Communication Gus Rosenbaum Jr. Adult Child Health Care R epresentative (appointed verbally by patient or by statute hierarchy) Care Teams Battery Container Tester Aluminum Relationship Specialty Start Date End Date Jasson Denney MD [address] [place] [address] [place] [id number] PCP - General Family Medicine 03/22/16 documented as of this encounter
--- OUTSIDE RECORDS SUMMARY | 2023-06-24 05:41 | External Medical Summary | Summary of Care ---
Author Name Unknown Organization [facility] Address [address] [facility] [address] Phone [phone] Care Team Providers Care Scrum Coach Name Role Phone Jasson Denney MD Primary Care Provide r Reason for Visit * Reason Onset Date Comments Advice 01/31/2023 Encounter Details Date Type Department Care Team Description 01/31/2023 Telephone General Surgery, [facility] [address] [place] [address] Yasmine Austin MD [address] [place] [address] Advice Allergies Active Allergy Reactions Severity Noted Date Comments Adhesive Tape 04/11/2006 Latex 06/06/2022 Other reaction(s): rash/itchy documented as of this encounter (statuses as of 01/31/2023) Medications Medication Sig Dispensed Refills Start Date [...] every night at bedtime. 0 07/12/2019 Active Phenylephrine-[place] Butter 0.25-88.44 % Rectal Suppository Administer into the rectum as needed for Hemorrhoids. 0 Active Nitroglycerin 0.4 MG Sublingual Tablet Sublingual (Nitrostat) Place 1 Tablet under the tongue as needed. 0 11/10/2020 Active Atenolol 25 MG Oral Tablet (Tenormin)Indicatio ns:HTN, goal below 140/90 TAKE 1 TABLET BY MOUTH DAILY IN AM 90 Tablet 2 06/06/2022 Active Lidocaine 5 % External Patch (Lidoderm)Indicatio ns:Postherpetic neuralgia Place 1 Patch topically on the skin daily. 30 Patch 0 06/24/2022 Active Rosuvastatin Calcium 20 MG Oral Tablet [...] MOUTH DAILY 90 Tablet 2 07/22/2022 Active Ondansetron HCl 8 MG Oral TabletIndications:M alignant neoplasm of left breast in female, estrogen receptor positive, unspecified site of breast (HCC) Take 1 Tablet by mouth every 8 hours as needed for Nausea. 30 Tablet 0 09/09/2022 Active Additional Information Patient not taking.Reported on 12/11/2022 Prochlorperazine Maleate 10 MG Oral Tablet (Compazine)Indicati ons:Malignant neoplasm of left breast in female, estrogen receptor positive, unspecified site of breast (HCC) Take 1 Tablet by mouth every 6 hours as needed for Nausea. 30 Tablet 0 09/09/2022 Active Additional Information Patient not taking.Reported on 12/11/2022 Dexamethasone 4 MG Oral TabletIndications:M alignant neoplasm of left breast in female, estrogen receptor positive, unspecified site of breast (HCC) Take 8 mg (2 tablets) twice for 3 days (starting day before, on the day and day after chemo) 72 Tablet 0 09/09/2022 Active Isosorbide Mononitrate ER 30 MG Oral Tablet Extended Release 24 Hour (Imdur)Indications: Coronary artery disease involving [place] coronary artery of [place] heart without angina pectoris TAKE 1 TABLET [...] EVERY DAY 90 Capsule 1 01/31/2023 Active documented as of this encounter (statuses as of 01/31/2023) Active Problems Problem Noted Date Encounter for antineoplastic chemotherap y 09/10/2022 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, estrogen receptor positive 06/28/2022 Postherpetic neuralgia 06/28/2022 Hiatal hernia 08/07/2021 Schatzki's ring 08/07/2021 S/P angioplasty with stent 11/15/2020 Coronary artery disease involving [place] heart without angina pectoris 11/15/2020 Cardiac murmur [...] of tobacco use 02/05/2016 Overview: Quit 2019 DYSLIPIDEMIA, GOAL LDL BELOW 100 009 Overview: Per Lipid Taxonomy. HTN, goal below 130/80 04/21/2009 Overview: Modified per HTN Taxonomy. Chronic ischemic heart disease Overview: with 2 stents documented as of this encounter (statuses as of 01/31/2023) Resolved Problems Problem Noted Date Resolved Date [...] as of this encounter (statuses as of 01/31/2023) Immunizations Name Administration Dates Next Due COVID-19 mRNA, LNP-s, No Pre serve, 2-Dose Series (Sorbisense) 08/11/2020,07/21/2020 COVID-19, LNP-s, No Preserve , Dusty-sucrose, [...] Encounters Date Type Specialty Care Team Description 02/18/2023 Office Visit Family Medicine Imani Hart PA-C [address] [place] [address] [place] [address] 03/31/2023 Office Visit Hematology Oncology Gay Lu MD [address] [place] [address] 04/24/2023 Office Visit Cardiology Guillermo Mejia, [address] [place] [address] 05/07/2023 Office Visit Nephrology Valery Urena PA-C [address] [place] [address] 06/12/2023 Imaging Radiology 08/04/2023 Imaging Radiology 08/12/2023 Office Visit Family Medicine Jasson Denney MD [address] [place] [address] [place] [address] Health Maintenance Due Date Last Done Comments [...] Additional history exists CKD PHOS USE SMARTSET 36985 07/25/2023 02/0 02/2023, 01/10/2022, 01/11/2021, Additional history exists O2 ASSESSMENT COMPLETED IN PAST YEAR FOR COPD 08/15/2023 08/14/2022 CKD HGB USE SMARTSET 89785 11/26/202311/25, 11/25/2022, 11/04/2022, Additional history exists DXA [...] this encounter Medical Devices Implanted Type Area Director Of Strategic Marketing Device Identifier Shelf Expiration Date Model / Serial / Lot [place] Excluder Aaa Endoprothesis System-07/07/2019 Implanted:07/07/19 20 (Quantity not on file) Graft Description:Multiple implant s from system on same day [id number] Cordis Bx Velocity Cardiac Stent-06/02/2002 Implanted:06/02/20 02 (Quantity not on file) Stent CORDIS LEXA BX VELOCITY [id number] / / [id number] Cordis Bx Velocity Cardiac Stent-01/03/2003 Implanted:01/04/20 03 (Quantity not on file) Stent CORDIS LEXA VELOCITY [id number] / / [id number] documented as of this encounter Advance Directives [...] the patient have Health Care Power of Asset Management Lead? No Healthcare Agents on File Name Relationship Healthcare Agent Relationship Communication Gus Rosenbaum Jr. Adult Child Health Care R epresentative (appointed verbally by patient or by statute hierarchy) Care Teams Scrum Coach Relationship Specialty Start Date End Date Jasson Denney MD [address] [place] [address] [place] [address] PCP - General Family Medicine 03/22/16 documented as of this encounter
--- OUTSIDE RECORDS SUMMARY | 2023-06-24 05:41 | External Medical Summary | Summary of Care ---
Author Name Unknown Organization [facility] Address [address] [place] [facility] [place] [address] Phone [phone] Care Team Providers Care Litigation Legal Assistant Name Role Phone Jonathan Denney MD Primary Care Provide r Reason for Visit * Reason Comments eRx-Medication Refill Encounter Details Date Type Department Care Team Description 12/26/2022 Refill Family Medicine [address] [phone] Jonathan Denney MD [address] [place] [address] [place] [address] HTN, goal below 140/90; Dyslipidemia, goal to be determined Allergies Active Allergy Reactions Severity Noted Date Comments Adhesive Tape 04/11/2006 Latex 06/06/2022 Other reaction(s): rash/itchy documented as of this encounter (statuses as of 12/27/2022) Medications Medication Sig Dispensed Refills Start Date [...] the tongue as needed. 0 11/10/2020 Active DULoxetine HCl 30 MG Oral Capsule Delayed Release Particles (Cymbalta)Indica tions:Moderate episode of recurrent major depressive disorder (HCC),Chronic bilateral low back pain without sciatica TAKE 1 CAPSULE BY MOUTH EVERY DAY 90 Capsule 3 02/07/2022 Active Enalapril Maleate 10 MG Oral Tablet (Vasotec) TAKE 2 TABLETS BY MOUTH EVERY DAY 180 Tablet 2 04/29/2022 Active Atenolol 25 MG Oral Tablet (Tenormin)Indica tions:HTN, goal below 140/90 TAKE 1 TABLET BY MOUTH DAILY IN AM 90 Tablet 2 06/06/2022 Active Lidocaine 5 % External Patch (Lidoderm)Indica tions:Postherpet ic neuralgia Place 1 Patch topically on the [...] 07/22/2022 Active Ondansetron HCl 8 MG Oral TabletIndication s:Malignant neoplasm of left breast in female, estrogen receptor positive, unspecified site of breast (HCC) Take 1 Tablet by mouth every 8 hours as needed for Nausea. 30 Tablet 0 09/09/2022 Active Additional Information Patient not taking.Reported on 12/11/2022 Prochlorperazine Maleate 10 MG Oral Tablet (Compazine)Indic ations:Malignant neoplasm of left breast in female, estrogen receptor positive, unspecified site of breast (HCC) Take 1 Tablet by mouth every 6 hours as needed for Nausea. 30 Tablet 0 09/09/2022 Active Additional Information Patient not taking.Reported on 12/11/2022 Dexamethasone 4 MG Oral TabletIndication s:Malignant neoplasm of left breast in female, estrogen receptor positive, unspecified site of breast (HCC) Take 8 mg (2 tablets) twice for 3 days (starting day before, on the day and day after chemo) 72 Tablet 0 09/09/2022 Active Isosorbide Mononitrate ER 30 MG Oral Tablet Extended Release 24 Hour (Imdur)Indicatio ns:Coronary artery disease involving [place] coronary artery of [place] heart without angina pectoris TAKE 1 TABLET BY MOUTH EVERY DAY IN THE MORNING 90 Tablet 1 11/26/2022 Active Ezetimibe 10 MG Oral Tablet (Zetia)Indicatio ns:Dyslipidemia, goal to be determined TAKE 1 TABLET BY MOUTH DAILY 90 Tablet 1 12/27/2022 Active Ezetimibe 10 MG Oral Tablet (Zetia)Indicatio ns:Dyslipidemia, goal to be determined TAKE 1 TABLET BY MOUTH DAILY 90 Tablet 1 07/22/2022 3 Discontinued documented as of this encounter (statuses as of 12/27/2022) Active Problems Problem Noted Date Encounter for antineoplastic chemotherap y 09/10/2022 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, estrogen receptor positive 06/28/2022 Postherpetic neuralgia 06/28/2022 Hiatal hernia 08/07/2021 Schatzki's ring 08/07/2021 S/P angioplasty with stent 11/15/2020 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 pectoris 11/15/2020 Cardiac murmur [...] as of this encounter (statuses as of 12/27/2022) Resolved Problems Problem Noted Date Resolved Date [...] as of this encounter (statuses as of 12/27/2022) Immunizations Name Administration Dates Next Due COVID-19 mRNA, LNP-s, No Pre serve, 2-Dose Series (Intelipost) 08/11/2020,07/21/2020 COVID-19, LNP-s, No Preserve , Dusty-sucrose, Ages 12+ (Intelipost) 02/05/2022,08/07/2021 Covid-19, Mrna, Lnp-s, Pf, B ivalent, 30 Mcg, IM, 12 yrs and above (Intelipost) 06/11/2022 Pneumococcal Conjugate Vacc, 13 Valent (Prevnar) 08/19/2016 Pneumococcal Polysaccharide PPV23 (Pneumovax) 07/18/2015,04/11/2006 Seasonal Influenza Virus Vac cine, Unspecified Formulation 04/06/2020,03/25/2019,03/18/2018,03/03,03/22/2016,04/09/2007,04/11/2006 Seasonal Influenza, Quadriva lent Hd (Fluzone Hd) 04/04/2022,03/19/2021 Seasonal Influenza, Quadriva lent, No Preserve, 6 Mons & Above, IM 03/18/2018 Seasonal Influenza, Quadriva lent, No Preserve, Adjuvanted, 65+ Yrs, IM 04/06/2020 Seasonal Influenza, Quadriva lent, No Preserve, IM [...] encounter Miscellaneous Notes * Telephone Encounter - Lloyd Trujillo [facility] - 12/27/2022 9:00 PM EDT Signed Prescriptions: Disp Refills Ezetimibe 10 MG Oral Tablet (Zetia) 90 Tab*1 Sig: TAKE 1 TABLETBY MOUTH DAILYAuthorizing Provider: JONATHAN DENNEY User: LLOYD TRUJILLO Prescriptions: Disp Refills Atenolol 25 MG Oral Tablet (Tenormin) 90 Tab*2 Sig: TAKE 1 TABLET BY MOUTH DAILY IN THE MORNINGRefused By: LLOYD TRUJILLO forRefusal: Too soon documented in this encounter Plan of Treatment Upcoming Encounters Date Type Specialty Care Team Description 01/30/2023 Imaging Radiology 02/11/2023 Office Visit Family Medicine Imani Hart PA-C [address] [place] [address] [place] [phone] 03/31/2023 Office Visit Hematology Oncology Gay Lu MD [address] [place] [address] 04/24/2023 Office Visit Cardiology Guillermo Mejia DO [address] [place] [address] 05/07/2023 Office Visit Nephrology Valery Urena PA-C [address] [place] [address] 06/12/2023 Imaging Radiology 08/12/2023 Office Visit Family Medicine [facility], Jonathan Singh MD [address] [place] [address] [place] [address] Health Maintenance Due Date Last Done Comments AAA ULTRASOUND YEARLY 1958 Alpha-1 Antitrypsin 1958 DTaP,Tdap,and Td Vaccines (1 [...] Additional history exists CKD PHOS USE SMARTSET 13185 07/25/2023 02/02/2023, 01/10/2022, 01/11/2021, Additional history exists O2 ASSESSMENT COMPLETED IN PAST YEAR FOR COPD 08/15/2023 08/14/2022 CKD HGB USE SMARTSET 26166 11/26/202311/25, 11/25/2022, 11/04/2022, Additional history exists DXA [...] encounter Medical Devices Implanted Type Area Director Cpg Device Identifier Shelf Expiration Date Model / Serial / Lot [place] Excluder Aaa Endoprothesis System-07/07/2019 Implanted:07/07/19 20 (Quantity not on file) Graft Description:Multiple implant s from system on same day [id number] Cordis Bx Velocity Cardiac Stent-06/02/2002 Implanted:06/02/20 02 (Quantity not on file) Stent CORDIS LEXA BX VELOCITY [id number] / / [id number] Cordis Bx Velocity Cardiac Stent-01/03/2003 Implanted:01/04/20 03 (Quantity not on file) Stent CORDIS LEXA VELOCITY [id number] / / [id number] documented as of this encounter Visit Diagnoses Diagnosis HTN, goal below 140/90 Unspecified essential hypertension Dyslipidemia, goal to be determined Other and [...] the patient have Health Care Power of Human Machine Interface Engineer? No Healthcare Agents on File Name Relationship Healthcare Agent Relationship Communication Gus Rosenbaum Jr. Adult Child Health Care R epresentative (appointed verbally by patient or by statute hierarchy) Care Teams Litigation Legal Assistant Relationship Specialty Start Date End Date Jonathan Denney MD [address] [place] [address] [place] [phone] PCP - General Family Medicine 03/22/16 documented as of this encounter
--- OUTSIDE RECORDS SUMMARY | 2023-06-24 05:41 | External Medical Summary | Summary of Care ---
Author Name Unknown Organization [facility] Address [address] [facility] [address] Phone [phone] Care Team Providers Care Telephone Installer Name Role Phone Jasson Denney MD Primary Care Provide r Reason for Referral * Precert (Within 10 days (routine)) - Authorized Specialty Diagnoses / Procedures Referred By Contac t Referred To Contact Radiology Diagnoses Abnormal MRI, breast Procedures MRI BREAST BILATERAL W WO CONTRAST Yasmine Austin MD [address] [place] [address] Referral ID Status Reason Start Date Expiration Date V isits Requested Visits Authorized [id number] Authorized 08/03/2023 999 999 Encounter Details Date Type Department Care Team Description 01/31/2023 Telephone General Surgery, [facility] [address] [place] [address] Yasmine Austin MD [address] [place] [address] Allergies Active Allergy Reactions Severity Noted Date [...] 24 Hour (Imdur)Indicatio ns:Coronary artery disease involving three affiliated coronary artery of three affiliated heart without angina pectoris TAKE 1 TABLET [...] MOUTH EVERY DAY 90 Capsule 3 02/07/2022 3 Discontinued documented as of this encounter (statuses as of 01/31/2023) Active Problems Problem Noted Date Encounter for antineoplastic chemotherap y 09/10/2022 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, estrogen receptor positive 06/28/2022 Postherpetic neuralgia 06/28/2022 Hiatal hernia 08/07/2021 Schatzki's ring 08/07/2021 S/P angioplasty with stent 11/15/2020 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 Phone call transferred to nurse to give information about her results. * Telephone Encounter - Yasmine Autsin MD - 01/31/2023 11:06 AM EDT MRI scan is back. Message left asking pt to call back. If calls back, OK to read the following to her: MRI scan overall looks OK. The area seen on the right side looks less prominent so they just want to keep an eye on it with another MRI in 6 months. MRI for 6 months ordered - could you help her schedule please? FINDINGS There is scattered fibroglandular tissue. There is mild background parenchymal enhancement within the right breast. Left:Interval left mastectomy peer Right:Prior questioned middle depth central 5 x 8 mm enhancing mass just above the nipple plane nowresolves to 2 adjacent less than 5 mm enhancing foci. Prior anterior depth retroareolar enhancing focus is unchanged. Additional scattered enhancing foci are present in the breast. No unique enhancing lesion is seen. No lymphadenopathy. No skin thickening or nipple retraction. Extramammary findings: Tiny right pleural effusion. IMPRESSION IMPRESSION Left: Left mastectomy changes. No lymphadenopathy. No MRI evidence of recurrent malignancy. Right: Prior enhancing middle depth central mass is no longer discretely masslike. Scattered enhancing foci are present without unique suspicious lesion appreciated. No lymphadenopathy. An additionalsix-month follow-up is suggested. BI-RADS 3. Overall:BI-RADS 3. documented in this encounter Plan of Treatment Upcoming Encounters Date Type Specialty Care Team Description 02/18/2023 Office Visit Family Medicine Imani Hart PA-C [address] [place] [address] [place] [address] 03/31/2023 Office Visit Hematology Oncology Gay Lu MD [address] [place] [address] 04/24/2023 Office Visit Cardiology Guillermo Mejia, DO [address] [place] [address] 05/07/2023 Office Visit Nephrology Valery Urena PA-C [address] [place] [address] 06/12/2023 Imaging Radiology 08/04/2023 Imaging Radiology 08/12/2023 Office Visit Family Medicine Jasson Denney MD [address] [place] [address] [place] [address] Scheduled Orders Name Type Priority Associated Diagnoses Orde r Schedule MRI BREAST BILATERAL W WO CONTRAST Medical Imaging Routine Abnormal MRI, breast Expected: 08/03/2023 (Approximate), Expires: 03/03/2024 Health Maintenance Due Date Last Done Comments [...] Additional history exists CKD PHOS USE SMARTSET 28784 07/25/2023 02/0 02/2023, 01/10/2022, 01/11/2021, Additional history exists O2 ASSESSMENT COMPLETED IN PAST YEAR FOR COPD 08/15/2023 08/14/2022 CKD HGB USE SMARTSET 53490 11/26/202311/25, 11/25/2022, 11/04/2022, Additional history exists DXA [...] this encounter Medical Devices Implanted Type Area Commodities Clerk Device Identifier Shelf Expiration Date Model / Serial / Lot [place] Excluder Aaa Endoprothesis System-07/07/2019 Implanted:07/07/19 20 (Quantity not on file) Graft Description:Multiple implant s from system on same day [id number] Cordis Bx Velocity Cardiac Stent-06/02/2002 Implanted:06/02/20 02 (Quantity not on file) Stent CORDIS LEXA BX VELOCITY [id number] / / [id number] Cordis Bx Velocity Cardiac Stent-01/03/2003 Implanted:01/04/20 03 (Quantity not on file) Stent CORDIS LEXA VELOCITY [id number] / / [id number] documented as of this encounter Visit Diagnoses Diagnosis Abnormal MRI, breast- Primary Other (abnormal) findings on radiological examination of breast documented in this encounter Advance [...] the patient have Health Care Power of [place] Stocker? No Healthcare Agents on File Name Relationship Healthcare Agent Relationship Communication Gus Rosenbaum Jr. Adult Child Health Care R epresentative (appointed verbally by patient or by statute hierarchy) Care Teams Telephone Installer Relationship Specialty Start Date End Date Jasson Denney MD [address] [place] [address] [place] [address] PCP - General Family Medicine 03/22/16 documented as of this encounter
--- OUTSIDE RECORDS SUMMARY | 2023-06-24 05:41 | External Medical Summary | Summary of Care ---
Author Name Unknown Organization [facility] Address [address] [facility] [place] [address] Phone [phone] Care Team Providers Care Repatcher Name Role Phone Jasson Denney MD Primary Care Provide r Reason for Referral * Precert (Within 10 days (routine)) - Authorized Specialty Diagnoses / Procedures Referred By Contac t Referred To Contact Radiology Diagnoses Abnormal MRI, breast Procedures MRI BREAST BILATERAL W WO CONTRAST Yasmine Austin MD [address] [place] [address] Referral ID Status Reason Start Date Expiration Date V isits Requested Visits Authorized [id number] Authorized 08/03/2023 999 999 Encounter Details Date Type Department Care Team Description 01/31/2023 Telephone General Surgery, [facility] [address] [place] [address] Yasmine Austin MD [address] [place] [address] Allergies Active Allergy Reactions Severity Noted Date [...] 24 Hour (Imdur)Indicatio ns:Coronary artery disease involving [place] coronary artery of [place] heart without angina pectoris TAKE 1 TABLET [...] with stent 11/15/2020 Coronary artery disease involving [place] heart without angina pectoris 11/15/2020 Cardiac murmur [...] mRNA, LNP-s, No Pre serve, 2-Dose Series (Mobile Experience) 08/11/2020,07/21/2020 COVID-19, LNP-s, No Preserve , Dusty-sucrose, [...] her results. * Telephone Encounter - Yasmine Austin MD - 01/31/2023 11:06 AM EDT MRI [...] Office Visit Family Medicine Imani Hart PA-C [address] [place] [address] [place] [address] 03/31/2023 Office Visit Hematology Oncology Gay Lu MD [address] [place] [address] 04/24/2023 Office Visit Cardiology Guillermo Mejia, DO [address] [place] [address] 05/07/2023 Office Visit Nephrology Valery Urena PA-C [address] [place] [address] 06/12/2023 Imaging Radiology 08/04/2023 Imaging Radiology 08/12/2023 Office Visit Family Medicine Jasson Denney MD [address] [place] [address] [place] [address] Scheduled Orders Name Type Priority Associated Diagnoses [...] Additional history exists CKD PHOS USE SMARTSET 90732 07/25/2023 02/0 02/2023, 01/10/2022, 01/11/2021, Additional history exists O2 ASSESSMENT COMPLETED IN PAST YEAR FOR COPD 08/15/2023 08/14/2022 CKD HGB USE SMARTSET 99617 11/26/202311/25, 11/25/2022, 11/04/2022, Additional history exists DXA [...] this encounter Medical Devices Implanted Type Area Cotton Ball Machine Tender Device Identifier Shelf Expiration Date Model / Serial / Lot [place] Excluder Aaa Endoprothesis System-07/07/2019 Implanted:07/07/19 20 (Quantity not on file) Graft Description:Multiple implant s from system on same day [id number] Cordis Bx Velocity Cardiac Stent-06/02/2002 Implanted:06/02/20 02 (Quantity not on file) Stent CORDIS LEXA BX VELOCITY [id number] / / [id number] Cordis Bx Velocity Cardiac Stent-01/03/2003 Implanted:01/04/20 03 (Quantity not on file) Stent CORDIS LEXA VELOCITY [id number] / / [id number] documented as of this encounter Visit Diagnoses [...] the patient have Health Care Power of Broom Stitcher? No Healthcare Agents on File Name Relationship Healthcare Agent Relationship Communication Gus Rosenbaum Jr. Adult Child Health Care R epresentative (appointed verbally by patient or by statute hierarchy) Care Teams Repatcher Relationship Specialty Start Date End Date Jasson Denney MD [address] [place] [address] [place] [address] PCP - General Family Medicine 03/22/16 documented as of this encounter
--- OUTSIDE RECORDS SUMMARY | 2023-06-24 05:41 | External Medical Summary | Summary of Care ---
Author Name Unknown Organization [facility] Address [address] [facility] [place] [address] Phone [phone] Care Team Providers Care Booking Prizer Name Role Phone Jonathan Denney MD Primary Care Provide r Reason for Visit * Reason Comments eRx-Medication Refill Encounter Details Date Type Department Care Team Description 01/31/2023 Refill Family Medicine [address] [address] Jonathan Denney MD [address] [place] [address] [place] [address] Moderate episode of recurrent major depressive disorder (HCC); Chronic bilateral low back pain without sciatica Allergies Active Allergy Reactions Severity Noted Date [...] 24 Hour (Imdur)Indicatio ns:Coronary artery disease involving [place] coronary artery of [place] heart without angina pectoris TAKE 1 TABLET [...] EVERY DAY 90 Capsule 1 01/31/2023 Active DULoxetine HCl 30 MG Oral Capsule [...] with stent 11/15/2020 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 angina pectoris 11/15/2020 Cardiac murmur [...] mRNA, LNP-s, No Pre serve, 2-Dose Series ([facility]) 08/11/2020,07/21/2020 COVID-19, LNP-s, No Preserve , Dusty-sucrose, [...] encounter Miscellaneous Notes * Telephone Encounter - Allan Franco RPh - 01/31/2023 12:14 PM EDT Signed Prescriptions: Disp Refills DULoxetine HCl 30 MG Oral Capsule Delayed *90 Cap*1 Sig: TAKE 1 CAPSULE BY MOUTH EVERY DAYAuthorizing Provider: JONATHAN DENNEYOrderuzair User: ALLAN FRANCO documented in this encounter Plan of Treatment Upcoming Encounters Date Type Specialty Care Team Description 02/18/2023 Office Visit Family Medicine Imani Hart PA-C [address] [place] [address] [place] [address] 03/31/2023 Office Visit Hematology Oncology Gay Lu MD [address] [place] [address] 04/24/2023 Office Visit Cardiology Guillermo Mejia, [address] [place] [address] 05/07/2023 Office Visit Nephrology Valery Urena PA-C [address] [place] [address] 06/12/2023 Imaging Radiology 08/12/2023 Office Visit Family Medicine Jonathan Denney MD [address] [place] [address] [place] [address] Health Maintenance Due Date Last Done Comments [...] Additional history exists CKD PHOS USE SMARTSET 60443 07/25/2023 02/0 02/2023, 01/10/2022, 01/11/2021, Additional history exists O2 ASSESSMENT COMPLETED IN PAST YEAR FOR COPD 08/15/2023 08/14/2022 CKD HGB USE SMARTSET 18320 11/26/202311/25, 11/25/2022, 11/04/2022, Additional history exists DXA [...] this encounter Medical Devices Implanted Type Area Historian Dramatic Arts Device Identifier Shelf Expiration Date Model / Serial / Lot [place] Excluder Aaa Endoprothesis System-07/07/2019 Implanted:07/07/19 20 (Quantity not on file) Graft Description:Multiple implant s from system on same day [id number] Cordis Bx Velocity Cardiac Stent-06/02/2002 Implanted:06/02/20 02 (Quantity not on file) Stent CORDIS LEXA BX VELOCITY [id number] / / [id number] Cordis Bx Velocity Cardiac Stent-01/03/2003 Implanted:01/04/20 03 (Quantity not on file) Stent CORDIS LEXA VELOCITY [id number] / / [id number] documented as of this encounter Visit Diagnoses Diagnosis Moderate episode of recurrent major depressive disorder (HCC) Chronic bilateral low back pain without sciatica documented in this encounter Advance Directives Latest [...] the patient have Health Care Power of Cardiopulmonary Technologist? No Healthcare Agents on File Name Relationship Healthcare Agent Relationship Communication Gus Rosenbaum Jr. Adult Child Health Care R epresentative (appointed verbally by patient or by statute hierarchy) Care Teams Booking Prizer Relationship Specialty Start Date End Date Jonathan Denney MD [address] [place] [address] [place] [address] PCP - General Family Medicine 03/22/16 documented as of this encounter
--- OUTSIDE RECORDS SUMMARY | 2023-06-24 05:41 | External Medical Summary | Summary of Care ---
Author Name Unknown Organization [facility] Address [address] [facility] [address] Phone [phone] Care Team Providers Care Membership Assistant Name Role Phone Jasson Denney MD Primary Care Provide r Reason for Visit * Reason Onset Date Comments Appointment 01/25/2023 Encounter Details Date Type Department Care Team Description 01/25/2023 Telephone Rad[address] [place] [address] Linda Moreno TECH Appointment Allergies Active Allergy Reactions Severity Noted Date Comments Adhesive Tape 04/11/2006 Latex 06/06/2022 Other reaction(s): rash/itchy documented as of this encounter (statuses as of 01/25/2023) Medications Medication Sig Dispensed Refills Start Date [...] every night at bedtime. 0 07/12/2019 Active Phenylephrine-[place] Butter 0.25-88.44 % Rectal Suppository Administer into [...] EVERY DAY 90 Capsule 3 02/07/2022 Active Atenolol 25 MG Oral Tablet (Tenormin)Indicatio [...] 24 Hour (Imdur)Indications: Coronary artery disease involving [place] coronary artery of [place] heart without angina pectoris TAKE 1 TABLET BY MOUTH EVERY DAY IN THE MORNING 90 Tablet 1 11/26/2022 Active Ezetimibe 10 MG Oral Tablet (Zetia)Indications: Dyslipidemia, goal to be determined TAKE 1 TABLET BY MOUTH DAILY 90 Tablet 1 12/27/2022 Active Enalapril Maleate 10 MG Oral Tablet (Vasotec) TAKE 2 TABLETS BY MOUTH EVERY DAY 180 Tablet 1 01/20/2023 Active documented as of this encounter (statuses as of 01/25/2023) Active Problems Problem Noted Date Encounter for antineoplastic chemotherap y 09/10/2022 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, estrogen receptor positive 06/28/2022 Postherpetic neuralgia 06/28/2022 Hiatal hernia 08/07/2021 Schatzki's ring 08/07/2021 S/P angioplasty with stent 11/15/2020 Coronary artery disease involving [place] heart without angina pectoris 11/15/2020 Cardiac murmur [...] Overview: basal cell carcinoma (R infraorbital region 2018, 09/2018), nonmelanoma skin cancer-names unknown (on central [...] as of this encounter (statuses as of 01/25/2023) Resolved Problems Problem Noted Date Resolved Date [...] as of this encounter (statuses as of 01/25/2023) Immunizations Name Administration Dates Next Due COVID-19 mRNA, LNP-s, No Pre serve, 2-Dose Series ([facility]) 08/11/2020,07/21/2020 COVID-19, LNP-s, No Preserve , Dusty-sucrose, Ages 12+ ([facility]) 02/05/2022,08/07/2021 Covid-19, Mrna, Lnp-s, Pf, B ivalent, [...] encounter Miscellaneous Notes * Telephone Encounter - RAKAN Evans - 01/25/2023 4:25 PM EDT Name: Afua Rosenbaum Do you have any of the following: Pacemaker, stents, heart valves, aneurysm clips? No Have you ever worked with metal or have you ever gotten metal in your eyes? No Have you had a colonoscopy in the last 30 days? No On dialysis? No Do you have any dermals or body piercing's? No or ? Do you wear an insulin pump or diabetic monitor? no RAKAN Evans documented in this encounter Plan of Treatment Upcoming Encounters Date Type Specialty Care Team Description 01/30/2023 Imaging Radiology 02/18/2023 Office Visit Family Medicine Imani Hart PA-C [address] [place] [address] [place] [address] 03/31/2023 Office Visit Hematology Oncology Gay Lu MD [address] [place] [address] 04/24/2023 Office Visit Cardiology Guillermo Mejia, [address] [place] [address] 05/07/2023 Office Visit Nephrology Valery Urena PA-C [address] [place] [address] 06/12/2023 Imaging Radiology 08/12/2023 Office Visit Family Medicine Jasson Denney MD [address] [place] [address] [place] [address] Health Maintenance Due Date Last Done Comments [...] Additional history exists CKD PHOS USE SMARTSET 62973 07/25/2023 02/0 02/2023, 01/10/2022, 01/11/2021, Additional history exists O2 ASSESSMENT COMPLETED IN PAST YEAR FOR COPD 08/15/2023 08/14/2022 CKD HGB USE SMARTSET 12257 11/26/202311/25, 11/25/2022, 11/04/2022, Additional history exists DXA [...] this encounter Medical Devices Implanted Type Area Design Tech Device Identifier Shelf Expiration Date Model / Serial / Lot [place] Excluder Aaa Endoprothesis System-07/07/2019 Implanted:07/07/19 20 (Quantity not on file) Graft Description:Multiple implant s from system on same day [id number] Cordis Bx Velocity Cardiac Stent-06/02/2002 Implanted:06/02/20 02 (Quantity not on file) Stent CORDIS LEXA BX VELOCITY [id number] / / [id number] Cordis Bx Velocity Cardiac Stent-01/03/2003 Implanted:01/04/20 03 (Quantity not on file) Stent CORDIS LEXA VELOCITY [id number] / / [id number] documented as of this encounter Advance Directives [...] the patient have Health Care Power of Salt Grinder? No Healthcare Agents on File Name Relationship Healthcare Agent Relationship Communication Gus Rosenbaum Jr. Adult Child Health Care R epresentative (appointed verbally by patient or by statute hierarchy) Care Teams Membership Assistant Relationship Specialty Start Date End Date Jasson Denney MD [address] [place] [address] [place] [address] PCP - General Family Medicine 03/22/16 documented as of this encounter
--- OUTSIDE RECORDS SUMMARY | 2023-06-24 05:41 | External Medical Summary | Summary of Care ---
Author Name Unknown Organization [facility] Address [address] [facility] [address] Phone [phone] Care Team Providers Care Sales Forecast Analyst Name Role Phone Jasson Denney MD Primary Care Provide r Reason for Referral * Precert (Within 10 days (routine)) - Authorized Specialty Diagnoses / Procedures Referred By Contac t Referred To Contact Radiology Diagnoses Abnormal MRI, breast Procedures MRI BREAST BILATERAL W WO CONTRAST Yasmine Austin MD [address] [facility] [place] [address] Referral ID Status Reason Start Date Expiration Date V isits Requested Visits Authorized [id number] Authorized 08/03/2023 999 999 Reason for Visit * Reason Onset Date Comments Advice 01/31/2023 Encounter Details Date Type Department Care Team Description 01/31/2023 Telephone General Surgery, [facility] [address] [place] [address] Yasmine Austin MD [address] [facility] [place] [address] Advice Allergies Active Allergy Reactions Severity Noted [...] 24 Hour (Imdur)Indicatio ns:Coronary artery disease involving [place] coronary artery of [place] heart without angina pectoris TAKE 1 TABLET [...] with stent 11/15/2020 Coronary artery disease involving [place] heart without angina pectoris 11/15/2020 Cardiac murmur [...] mRNA, LNP-s, No Pre serve, 2-Dose Series ([facility]) 08/11/2020,07/21/2020 COVID-19, LNP-s, No Preserve , Dusty-sucrose, Ages 12+ ([facility]) 02/05/2022,08/07/2021 Covid-19, Mrna, Lnp-s, Pf, B ivalent, 30 Mcg, IM, 12 yrs and above ([facility]) 06/11/2022 Pneumococcal Conjugate Vacc, 13 Valent (Prevnar) [...] encounter Miscellaneous Notes * Telephone Encounter - Sushila Gimenez LPN - 01/31/2023 1:09 PM EDT Patient called back and told her MRI results and she is scheduled for next MRI * Telephone Encounter - CORY Leiva - [...] Visit Family Medicine Imani Hart PA-C [address] [place] [address] [place] [address] 03/31/2023 Office Visit Hematology Oncology Gay Lu MD [address] [place] [address] 04/24/2023 Office Visit Cardiology Guillermo Mejia, DO [address] [place] [address] 05/07/2023 Office Visit Nephrology Valery Uerna PA-C [address] [place] [address] 06/12/2023 Imaging Radiology 08/04/2023 Imaging Radiology 08/12/2023 Office Visit Family Medicine Jasson Denney MD [address] [place] [address] [place] [address] Scheduled Orders Name Type Priority Associated Diagnoses [...] Additional history exists CKD PHOS USE SMARTSET 88532 07/25/2023 02/02/2023, 01/10/2022, 01/11/2021, Additional history exists O2 ASSESSMENT COMPLETED IN PAST YEAR FOR COPD 08/15/2023 08/14/2022 CKD HGB USE SMARTSET 18003 11/26/202311/25, 11/25/2022, 11/04/2022, Additional history exists DXA [...] this encounter Medical Devices Implanted Type Area Retail Parts Pro Device Identifier Shelf Expiration Date Model / Serial / Lot [place] Excluder Aaa Endoprothesis System-07/07/2019 Implanted:07/07/19 20 (Quantity not on file) Graft Description:Multiple implant s from system on same day [id number] Cordis Bx Velocity Cardiac Stent-06/02/2002 Implanted:06/02/20 02 (Quantity not on file) Stent CORDIS LEXA BX VELOCITY [id number] / / [id number] Cordis Bx Velocity Cardiac Stent-01/03/2003 Implanted:01/04/20 03 (Quantity not on file) Stent CORDIS LEXA VELOCITY [id number] / / [id number] documented as of this encounter Visit Diagnoses [...] the patient have Health Care Power of Car Sales Representative? No Healthcare Agents on File Name Relationship Healthcare Agent Relationship Communication Gus Rosenbaum Jr. Adult Child Health Care R epresentative (appointed verbally by patient or by statute hierarchy) Care Teams Sales Forecast Analyst Relationship Specialty Start Date End Date Jasson Denney MD [address] [place] [address] [place] [phone] PCP - General Family Medicine 03/22/16 documented as of this encounter
--- OUTSIDE RECORDS SUMMARY | 2023-06-24 05:41 | External Medical Summary | Summary of Care ---
Author Name Unknown Organization [facility] Address [address] [facility] [address] Phone [phone] Care Team Providers Care Ict Analyst Name Role Phone Jasson Denney MD Primary Care Provide r Reason for Visit * Reason Comments Re-Check Encounter Details Date Type Department Care Team Description 02/18/2023 Office Visit Family Medicine [address] [address] Imani Bailey PA-C [address] [place] [address] [place] [phone] Chronic bilateral low back pain with bilateral sciatica*; SOB (shortness of breath); Lung crackles; HTN, goal below 130/80; Coronary artery disease involving [place] coronary artery of [place] heart without angina pectoris; Dyslipidemia, goal LDL below 70; COPD, mild ([facility]); Chronic kidney disease, stage 3b ([facility]); Hypertensive kidney disease with stage 3b chronic kidney disease; Malignant neoplasm of left breast in female, estrogen receptor positive, unspecified site of breast ([facility]); Moderate episode of recurrent major depressive disorder ([facility]); Skin lesion Allergies Active Allergy Reactions Severity Noted Date Comments Adhesive Tape 04/11/2006 Latex 06/06/2022 Other reaction(s): rash/itchy documented as of this encounter (statuses as of 02/20/2023) Medications Medication Sig Dispensed Refills Start Date [...] 24 Hour (Imdur)Indication s:Coronary artery disease involving [place] coronary artery of [...] at bedtime. 30 Capsule 1 02/18/2023 Active Azithromycin 250 MG Oral Tablet (Zithromax) Take 2 tabs by mouth on the first day, then 1 tab daily on days two through five 6 Tablet 0 02/20/2023 3 Active Lidocaine 5 % External Patch (Lidoderm)Indicat [...] as of this encounter (statuses as of 02/20/2023) Active Problems Problem Noted Date Encounter for [...] as of this encounter (statuses as of 02/20/2023) Resolved Problems Problem Noted Date Resolved Date [...] as of this encounter (statuses as of 02/20/2023) Immunizations Name Administration Dates Next Due COVID-19 mRNA, LNP-s, No Pre serve, 2-Dose Series ([facility]) 08/11/2020,07/21/2020 COVID-19, LNP-s, No Preserve , Dusty-sucrose, [...] kg (160 lb 14.4 oz) 02/18/2023 1:40 P M EDT Height - - Body Mass Index 25.4 08/14/2022 7:10 AM EST documented in this encounter Progress Notes * Imani Bailey PA-C - 02/18/2023 1:46 PM EDT Images from the original note were not included. History of Present Illness Afua Rosenbaum is a 82 year old female that presents for Re-Check Nursing Notes: Maren Lee, DISTRIBUTION SYSTEM OPERATOR 02/18/23 1339 Sign at exiting of workspace [...] NOT CRUSH, SPLIT OR CHEW THE TABLET Phenylephrine-[place] Butter 0.25-88.44 % Rectal Suppository Rectal, PRN [...] Continue the same. Coronary artery disease involving [place] coronary artery of [place] heart without angina pectoris Continue f/u with [...] and leg pain. documented in this encounter Miscellaneous Notes * Addendum Note - Imani Bailey PA-C - 02/20/2023 7:09 AM EDTAddended by: IMANI BAILEY on: 02/20/2023 07:09 AM Modules accepted: Orders * Result Encounter Note - Imani Bailey PA-C - 02/20/2023 7:08 AM EDT Please let patient know: She does have a little bit of haziness on her XRay where I am hearing crackles. I'd like to treat her with antibiotics to see if this is a walking pneumonia developing. Thanks documented in this encounter Plan of Treatment Upcoming Encounters Date Type Specialty Care Team Description 03/04/2023 Scheduled Telephone [place], Nurse Follow Up Phone Call Schedule [address] [place] [address] 03/20/2023 Office Visit Family Medicine Imani Bailey PA-C [address] [place] [address] [place] [address] 03/31/2023 Office Visit Hematology Oncology Gay Lu MD [address] [place] [address] 04/24/2023 Office Visit Cardiology Guillermo Mejia, DO [address] [place] [address] 05/07/2023 Office Visit Nephrology Valery Urena PA-C [address] [place] [address] 06/12/2023 Imaging Radiology 08/04/2023 Imaging Radiology 08/12/2023 Office Visit Family Medicine Jasson Denney MD [address] [place] [address] [place] [address] Pending Results Name Type Priority Associated Diagnoses Date /Time XR L SPINE AP AND LATERAL Medical Imaging Routine Chronic bilateral low back pain with bilateral sciatica 02/18/2023 3:18 PM EDT Health Maintenance Due Date Last [...] Additional history exists CKD PHOS USE SMARTSET 34186 07/25/2023 02/0 02/2023, 01/10/2022, 01/11/2021, Additional history exists O2 ASSESSMENT COMPLETED IN PAST YEAR FOR COPD 08/15/2023 08/14/2022 CKD HGB USE SMARTSET 44408 11/26/202311/25, 11/25/2022, 11/04/2022, Additional history exists DXA [...] this encounter Medical Devices Implanted Type Area Vehicle Glass Technician Device Identifier Shelf Expiration Date Model / Serial / Lot [place] Excluder Aaa Endoprothesis System-07/07/2019 Implanted:07/07/19 20 (Quantity not on file) Graft Description:Multiple implant s from system on same day [id number] Cordis Bx Velocity Cardiac Stent-06/02/2002 Implanted:06/02/20 02 (Quantity not on file) Stent CORDIS LEXA BX VELOCITY [id number] / / [id number] Cordis Bx Velocity Cardiac Stent-01/03/2003 Implanted:01/04/20 03 (Quantity not on file) Stent CORDIS LEXA VELOCITY [id number] / / [id number] documented as of this encounter Procedures Procedure Name Priority Date/Time Associated Diagnosis Comments XR CHEST 2 VIEWS Routine 02/18/2023 3:18 PM EDT SOB (shortness of breath) Lung crackles documented in this encounter Results * XR CHEST 2 VIEWS (02/18/2023 3:18 PM EDT) Anatomical Region Laterality Modality Chest Computed Radiogr aphy 02/19/2023 12:2 0 PM EDT Impressions 02/19/2023 12:17 PM EDT IMPRESSION 1. Minimal left basilar atelectasis. Narrative 02/19/2023 12:17 PM EDT EXAM XR CHEST 2 VIEWS-02/18/2023 3:18 pm HISTORY SOB, LLL rales faint COMPARISON 04/06/2020 x-ray. TECHNIQUE Frontal and lateral chest radiographs obtained. FINDINGS The heart size is within normal limits. Moderate hiatal hernia. No focal consolidation. Minimal left basilar atelectasis. No pleural effusions or pneumothorax. Degenerative osseous changes. Scoliosis. Procedure Note Stone Soto MD - 02/19/2023 EXAM XR CHEST 2 VIEWS-02/18/2023 3:18 pm HISTORY SOB, LLL rales faint COMPARISON 04/06/2020 x-ray. TECHNIQUE Frontal and lateral chest radiographs obtained. FINDINGS The heart size is within normal limits. Moderate hiatal hernia. No focal consolidation. Minimal left basilar atelectasis. No pleural effusions or pneumothorax. Degenerative osseous changes. Scoliosis. IMPRESSION IMPRESSION 1. Minimal left basilar atelectasis. Imani Bailey PA-C RADIOLOGY ([facility]) documented in this encounter Visit Diagnoses Diagnosis Chronic bilateral low back pain with bilateral sciatica- Primary SOB (shortness of breath) Shortness of breath Lung crackles Abnormal chest sounds HTN, goal below 130/80 Unspecified essential hypertension Coronary artery disease involving [place] coronary artery of [place] heart without angina pectoris Dyslipidemia, goal LDL [...] the patient have Health Care Power of Stockroom Attendant? No Healthcare Agents on File Name Relationship Healthcare Agent Relationship Communication Gus Rosenbaum Jr. Adult Child Health Care R epresentative (appointed verbally by patient or by statute hierarchy) Care Teams Ict Analyst Relationship Specialty Start Date End Date Jasson Denney MD [address] [place] [address] [place] [address] PCP - General Family Medicine 03/22/16 documented as of this encounter
--- OUTSIDE RECORDS SUMMARY | 2023-06-24 05:41 | External Medical Summary | Summary of Care ---
Author Name Unknown Organization [facility] Address [address] [facility] [place] [address] Phone [phone] Care Team Providers Care Program Eligibility Specialist Name Role Phone Jasson Denney MD Primary Care Provide r Reason for Visit * Reason Onset Date Comments Test Results 02/21/2023 Encounter Details Date Type Department Care Team Description 02/21/2023 Telephone Family Medicine [address] [phone] Jasson Denney MD [address] [place] [address] [place] [id number] Test Results Allergies Active Allergy Reactions Severity Noted Date Comments Adhesive Tape 04/11/2006 Latex 06/06/2022 Other reaction(s): rash/itchy documented as of this encounter (statuses as of 02/21/2023) Medications Medication Sig Dispensed Refills Start Date [...] 11/10/2020 Active Atenolol 25 MG Oral Tablet (Tenormin)Indicati [...] Active Clopidogrel Bisulfate 75 MG Oral Tablet (pLAVix)Indication s:HTN, goal below 140/90 TAKE 1 TABLET BY MOUTH DAILY 90 Tablet 2 07/22/2022 Active Dexamethasone 4 MG Oral TabletIndications: Malignant neoplasm of left breast in female, estrogen receptor positive, unspecified site of breast (HCC) Take 8 mg (2 tablets) twice for 3 days (starting day before, on the day and day after chemo) 72 Tablet 0 09/09/2022 Active Isosorbide Mononitrate ER 30 MG Oral Tablet Extended Release 24 Hour (Imdur)Indications :Coronary artery disease involving [place] coronary artery of [place] heart without angina pectoris TAKE 1 TABLET BY MOUTH EVERY DAY IN THE MORNING 90 Tablet 1 11/26/2022 Active Ezetimibe 10 MG Oral Tablet (Zetia)Indications [...] two through five 6 Tablet 0 02/20/2023 02/25/2023 Active documented as of this encounter (statuses as of 02/21/2023) Active Problems Problem Noted Date Encounter for antineoplastic chemotherap y 09/10/2022 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 HTN, goal below 130/80 04/21/2009 Overview: Modified per HTN Taxonomy. Chronic ischemic heart disease Overview: with 2 stents documented as of this encounter (statuses as of 02/21/2023) Resolved Problems Problem Noted Date Resolved Date [...] as of this encounter (statuses as of 02/21/2023) Immunizations Name Administration Dates Next Due COVID-19 mRNA, LNP-s, No Pre serve, 2-Dose Series (4Blox) 08/11/2020,07/21/2020 COVID-19, LNP-s, No Preserve , Dusty-sucrose, Ages 12+ (4Blox) 02/05/2022,08/07/2021 Covid-19, Mrna, Lnp-s, Pf, B ivalent, 30 Mcg, IM, 12 yrs and above (4Blox) 06/11/2022 Pneumococcal Conjugate Vacc, 13 Valent (Prevnar) [...] encounter Miscellaneous Notes * Telephone Encounter - Yolanda Nguyen LPN - 02/21/2023 3:03 PM EDT Pt informed of message below and verbalized understanding Provider to address: N/A Reason for Call: Test Results Contact: Telephone Call Contact Type: Test Results Outcome: see above Total Time including non face to face (minutes): 10 * Telephone Encounter - Yolanda Nguyen LPN - 02/21/2023 3:00 PM EDT ----- Message from Imani Hart PA-C sent at 02/20/2023 7:08 AM EDT ----- Please let patient know: [...] [place], Nurse Follow Up Phone Call Schedule [address] [place] [phone] 03/12/2023 Office Visit Dermatology Melanie Frank PA-C [address] [place] [address] [place] [address] 03/20/2023 Office Visit Family Medicine Imani Hart PA-C [address] [place] [address] [place] [address] 03/31/2023 Office Visit Hematology Oncology Gay Lu MD [address] [place] [address] 04/24/2023 Office Visit Cardiology Guillermo Mejia, DO [address] [place] [address] 05/07/2023 Office Visit Nephrology Valery Urena PA-C [address] [place] [address] 06/12/2023 Imaging Radiology 08/04/2023 Imaging Radiology 08/12/2023 Office Visit Family Medicine Jasson Denney MD [address] [place] [address] [place] [phone] Health Maintenance Due Date Last Done Comments [...] Additional history exists CKD PHOS USE SMARTSET 68485 07/25/2023 02/0 02/2023, 01/10/2022, 01/11/2021, Additional history exists O2 ASSESSMENT COMPLETED IN PAST YEAR FOR COPD 08/15/2023 08/14/2022 CKD HGB USE SMARTSET 91268 11/26/202311/25, 11/25/2022, 11/04/2022, Additional history exists DXA [...] this encounter Medical Devices Implanted Type Area Technical Translator Device Identifier Shelf Expiration Date Model / Serial / Lot [place] Excluder Aaa Endoprothesis System-07/07/2019 Implanted:07/07/19 20 (Quantity not on file) Graft Description:Multiple implant s from system on same day [id number] Cordis Bx Velocity Cardiac Stent-06/02/2002 Implanted:06/02/20 02 (Quantity not on file) Stent CORDIS LEXA BX VELOCITY [id number] / / [id number] Cordis Bx Velocity Cardiac Stent-01/03/2003 Implanted:01/04/20 03 (Quantity not on file) Stent CORDIS LEXA VELOCITY [id number] / / [id number] documented as of this encounter Advance Directives [...] the patient have Health Care Power of Monorail Helper? No Healthcare Agents on File Name Relationship Healthcare Agent Relationship Communication Gus Rosenbaum Jr. Adult Child Health Care R epresentative (appointed verbally by patient or by statute hierarchy) Care Teams Program Eligibility Specialist Relationship Specialty Start Date End Date Jasson Denney MD [address] [place] [address] [place] [address] PCP - General Family Medicine 03/22/16 documented as of this encounter
--- OUTSIDE RECORDS SUMMARY | 2023-06-24 05:41 | External Medical Summary | Summary of Care ---
Author Name Unknown Organization [facility] [address] [facility] [address] Phone [phone] Care Team Providers Care Quilter Fixer Name Role Phone Jasson Denney MD Primary Care Provide r Reason for Referral * Precert (Within 10 days (routine)) - Authorized Specialty Diagnoses / Procedures Referred By Contac t Referred To Contact Radiology Diagnoses Abnormal MRI, breast Procedures MRI BREAST BILATERAL W WO CONTRAST Yasmine Austin MD [address] [place] [address] Referral ID Status Reason Start Date Expiration Date V isits Requested Visits Authorized [id number] Authorized 08/03/2023 999 999 Encounter Details Date Type Department Care Team Description 01/31/2023 Telephone General Surgery, [facility] [address] [place] [address] Yasmine Austin MD [address] [place] [address] Allergies Active Allergy Reactions Severity Noted Date [...] every night at bedtime. 0 07/12/2019 Active Phenylephrine-[place] Butter 0.25-88.44 % Rectal Suppository Administer into [...] 24 Hour (Imdur)Indications: Coronary artery disease involving [place] coronary artery of [place] heart without angina pectoris TAKE 1 TABLET [...] with stent 11/15/2020 Coronary artery disease involving [place] heart without angina pectoris 11/15/2020 Cardiac murmur [...] mRNA, LNP-s, No Pre serve, 2-Dose Series (Level Chef) 08/11/2020,07/21/2020 COVID-19, LNP-s, No Preserve , Dusty-sucrose, [...] encounter Miscellaneous Notes * Telephone Encounter - Yasmine Austin MD [...] Office Visit Family Medicine Imani Hart PA-C [address] [place] [address] [place] [address] 03/31/2023 Office Visit Hematology Oncology Gay Lu MD [address] [facility] [place] [address] 04/24/2023 Office Visit Cardiology Guillermo Mejia, [address] [place] [address] 05/07/2023 Office Visit Nephrology Valery Urena PA-C [address] [place] [address] 06/12/2023 Imaging Radiology 08/12/2023 Office Visit Family Medicine Jasson Denney MD [address] [place] [address] [place] [address] Scheduled Orders Name Type Priority Associated Diagnoses [...] Additional history exists CKD PHOS USE SMARTSET 48106 07/25/2023 02/0 02/2023, 01/10/2022, 01/11/2021, Additional history exists O2 ASSESSMENT COMPLETED IN PAST YEAR FOR COPD 08/15/2023 08/14/2022 CKD HGB USE SMARTSET 90737 11/26/202311/25, 11/25/2022, 11/04/2022, Additional history exists DXA [...] this encounter Medical Devices Implanted Type Area Campground Attendant Device Identifier Shelf Expiration Date Model / Serial / Lot [place] Excluder Aaa Endoprothesis System-07/07/2019 Implanted:07/07/19 20 (Quantity not on file) Graft Description:Multiple implant s from system on same day [id number] Cordis Bx Velocity Cardiac Stent-06/02/2002 Implanted:06/02/20 02 (Quantity not on file) Stent CORDIS LEXA BX VELOCITY [id number] / / [id number] Cordis Bx Velocity Cardiac Stent-01/03/2003 Implanted:01/04/20 03 (Quantity not on file) Stent CORDIS LEXA VELOCITY [id number] / / [id number] documented as of this encounter Visit Diagnoses [...] the patient have Health Care Power of Cytology Teacher? No Healthcare Agents on File Name Relationship Healthcare Agent Relationship Communication Gus Rosenbaum Jr. Adult Child Health Care R epresentative (appointed verbally by patient or by statute hierarchy) Care Teams Quilter Fixer Relationship Specialty Start Date End Date Jasson Denney MD [address] [place] [address] [place] [address] PCP - General Family Medicine 03/22/16 documented as of this encounter
[2023-06-24 05:58] LABS: Basophils # (auto) 0.04 K/uL (0.00-0.20); Basophils % (auto) 0.6 %; Eosinophils # (auto) 0.22 K/uL (0.00-0.50); Eosinophils % (auto) 3.5 %; Hematocrit (blood only) 30.5 % (37.0-47.0); Hemoglobin 9.6 g/dl (12.0-16.0); Immature Granulocytes # (auto) 0.04 K/uL (0.01-0.20); Immature Granulocytes % (auto) 0.6 %; Lymphocytes # (auto) 0.88 K/uL (1.20-3.40); Mean Corpuscular Hemoglobin 27.5 pg (25.0-34.0); Mean Corpuscular Hgb Conc 31.5 g/dL (32.0-36.0); Mean Corpuscular Volume 87.4 fL (80.0-100.0); Mean Platelet Volume 9.5 fL (9.4-12.4); Neutrophils # (auto) 4.59 K/uL (1.40-6.50); Neutrophils % (auto) 73.3 %; Platelet Count 211 K/uL (130-400); RDW Coefficient of Variation 15.3 % (11.5-14.5); RDW Standard Deviation 49.1 fL (36.4-46.3); Red Blood Count 3.49 M/uL (4.20-5.40); White Blood Count 6.27 K/ul (4.8-10.8)
[2023-06-24] MEDS ORDERED: MECLIZINE HCL 25 MG TAB PO STA (06:01)
[2023-06-24] MEDS ORDERED: ONDANSETRON INJ 2 MG/ML 2 ML VIAL IV STA (06:01)
[2023-06-24 06:12] LABS: Albumin Globulin Ratio 1.3 (0.9-2); Albumin Level 3.9 gm/dl (3.4-5.0); BUN Creatinine Ratio 20.9 (10-20); Bilirubin,Total 0.3 mg/dl (0.2-1.0); Calcium 9.6 mg/dl (8.6-10.3); Creatinine Clr Calc Pharmacy 31.4 ml/min; Est GFR (African American) 37.6 ml/min; Est GFR (Non-African American) 32.4 ml/min; Globulin 2.9 gm/dl (2.5-4.0); Potassium 4.2 mmol/L (3.5-5.1); Total Protein 6.8 gm/dl (6.0-8.3)
[2023-06-24 06:32] LABS: Partial Thromboplastin Ratio 0.9; Partial Thromboplastin Time 25 Seconds (21-31); Prothrombin Time 10.5 Seconds (9.0-12.0)
[2023-06-24 06:38] LABS: Troponin I High Sensitivity 20.5 pg/ml (0-14)
[2023-06-24] MEDS ORDERED: SODIUM CHLORIDE 0.9% 500 ML IV ONE (06:39)
--- NOTE | 2023-06-24 06:44 | CT Scan Report ---
HEAD CT NONCONTRAST CT DOSE: 547.75 mGy.cm HISTORY: vertiginous symptoms TECHNIQUE: Multiaxial CT images of the head were performed without the use of intravenous contrast. A utomated exposure control was utilized for this study. A dose lowering technique was utilized adheri ng to the principles of ALARA. Comparison: Head CT 06/06/2022. Findings: The paranasal sinuses and mastoid air cells are clear. The calvarium and skull base are int act. The ventricles and sulci are within normal limits. There is no mass, hematoma, midline shift, or acute infarct. Impression: No acute intracranial abnormality. ACT 112: Negative or not required by law. Electronically signed by: Ty William M.D. 06/24/2023 6:41 AM
--- NOTE | 2023-06-24 06:47 | Emergency Department Note ---
Impression & Plan Dizziness, HTN (hypertension) ED Provider Note Provider: Jaime Nguyen MD DATE OF SERVICE: 06/24/2023 CHIEF COMPLAINT: Dizziness, nausea HISTORY OF PRESENT ILLNESS: Patient is a 83-year-old female history of hypertension, CAD, CKD, and COPD presenting here today reporting onset of dizziness and nausea when she woke this morning. Went to bed last evening around 10 PM. Was fine at that time and states that she has been well. No recent medication changes. Use of the bathroom generally a time or 2 overnight and woke around 4 AM and states she needed to do this. States she felt dizzy and nauseous. This was even while laying in bed. Was able to get up and feel her way down the stairs with her phone in her house. Lives by herself. Did not fall. Vomited. No abdominal pain or headache. Called son. EMS activated and brought here for evaluation. Symptoms not that much different with movement or position change. Denies again recent illness or URI symptoms. Denies respiratory symptoms. Denies abdominal pain. Denies urinary symptoms. Denies numbness or tingling or speech issues currently. Denies feeling things are moving. PAST MEDICAL HISTORY: As noted above MEDICATIONS: Reviewed home medication SOCIAL HISTORY: Lives by herself at home PHYSICAL EXAM: GENERAL: alert and oriented in no acute distress on stretcher Head: normocephalic and atraumatic EYES: No injection, discharge or icterus. PERRL, EOMI. NECK: Trachea midline. Supple. ENT: Mucous membranes pink and slightly moist. Pharynx without erythema or exudate. TMs clear bilaterally LUNGS: Airway patent. No retractions. Breath sounds clear with good air entry bilaterally. HEART: Regular bradycardic rate and rhythm. No chest wall tenderness ABDOMEN: Soft and non-tender, without guarding or rebound. SKIN: Acyanotic, warm, dry, without rashes EXTREMITIES: Without swelling, tenderness or deformity NEUROLOGICAL: No focal deficits. No aphasia. No facial droop or slurred speech. Tongue midline. Normal strength and tone in the extremities. Sensation to gross touch normal. EK bpm sinus bradycardia. No PVC or PAC. No acute ST segment elevation or depression with a QTc of 455. CONTINUOUS CARDIAC MONITORING: was ordered and showed a heart rate of 50s to 60s bpm in sinus bradycardia to normal sinus rhythm Patient's laboratory studies and imaging reviewed. Differential includes Benign positional vertigo, dehydration, hypovolemia, anemia, tumor, infection, hypoglycemia, electrolyte abnormalities, cardiac sources, intracerebral event, toxicologic, neurologic, as well as other pathologies. IMPRESSION/MEDICAL DECISION MAKING: Patient did receive Zofran and meclizine with slight improvement of nausea may be a little improvement of dizziness. Not only provoked by movement. No other speech issues or numbness or weakness or facial droop appreciated on exam. No headache. CT of the head completed without significant acute intracranial abnormality noted by my review. EKG without significant arrhythmia and patient denies palpitations. Denies URI symptoms however bio fire was completed. UA ordered. Will attempt ambulation and see how this goes. Benign abdomen doubt acute intracranial abnormality. No fever. No leukocytosis. 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 Basic blood work is obtained here again without leukocytosis with mild anemia 9.6 not that far off baseline in the tens however. No bleeding reported. No severe electrolyte abnormalities with what appears to be baseline CKD. Little bit dry given a small IV fluid bolus. No evidence of significant concerning findings for hepatitis. Is not consistent with pancreatitis and again with a benign abdomen doubt feel we need abdominal imaging. CKD precludes CT angiograms at this time and she is outside the window for thrombolytics and I doubt this represents large vessel occlusion although stroke is maintained on the differential. High sensitive troponin minimally elevated 20.5 from previous but not having active chest pain. EKG without acute evidence of ST segment elevation or depression. Is somewhat hypertensive here. I doubt this represents acute ACS/DE. Do question if she may have had an occult CVA. Persistent with dizziness symptoms. Given this discussed with her staying for further evaluation and does have significant difficulty with ambulation. Lives by herself in a believe is a fall risk at the current time. Difficulty with trial of ambulation at bedside. Quite unsteady on her feet. Patient is maintained already on aspirin and Plavix. DIAGNOSIS: Dizziness, hypertension DISPOSITION: Hospitalist will evaluate Patient was agreeable with this plan. Past Med/Surg History Medical History CAD (coronary artery disease) CKD (chronic kidney disease) stage 3, GFR 30-59 ml/min COPD (chronic obstructive pulmonary disease) Depression Heart attack HLD (hyperlipidemia) HTN (hypertension) Prediabetes Retroperitoneal bleed Tobacco abuse Surgical History H/O heart artery stent History of cataract removal with insertion of prosthetic lens History of hysterectomy 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 stent graft Family History Mother CHF (congestive heart failure) Father Emphysema of lung Sister Brain tumor Social History Smoking Status: Former smoker Tobacco Type: Cigarettes Second Hand Exposure: No; Do You Dip or Chew Tobacco: No; Hx Alcohol Use: No Hx Substance Use: No Preferred Language: Chinese Communication Ability: Effective Communication Ability Comment: unable to assess since patient is intubated Portrait 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 Photographer Required: No Beliefs That Will Affect Care: None marital status: / Current Living Situation: Alone current occupational status: retired Feels Safe at Home: Yes Assistive Devices: Cane Allergies Allergies Allergy/AdvReac Type Severity Reaction Status Date / Time adhesive tape Allergy rash/itchy Verified 06/06/22 16:52 latex Allergy rash/itchy Verified 06/06/22 16:52 Home Meds Home Medications Medication Instructions Recorded Confirmed Oscal 500/200 D3 1 tab PO DAILY 06/06/22 06/24/23 acetaminophen 325 mg tablet 650 mg PO Q6 PRN Pain 06/06/22 06/24/23 (Tylenol) albuterol sulfate 90 mcg/actuation 2 puff inhalation Q4 PRN Shortness 06/06/22 06/24/23 aerosol inhaler (Ventolin HFA) Of Breath Or Wheezing atenolol 25 mg tablet 25 mg PO DAILY 06/06/22 06/24/23 clopidogrel 75 mg tablet 75 mg PO DAILY 06/06/22 06/24/23 docusate sodium 100 mg capsule 100 mg PO HS 06/06/22 06/24/23 duloxetine 30 mg capsule,delayed 30 mg PO DAILY 06/06/22 06/24/23 release enalapril maleate 10 mg tablet 20 mg PO DAILY 06/06/22 06/24/23 ezetimibe 10 mg tablet 10 mg PO DAILY 06/06/22 06/24/23 nwpkhfjrpsnj-ijlugxkn-egvibx tablet 1 tab PO DAILY 06/06/22 06/24/23 nitroglycerin 0.4 mg sublingual 0.4 mg sublingual DIRECTED PRN 06/06/22 06/24/23 tablet (Nitrostat) Chest Pain pantoprazole 20 mg tablet,delayed 40 mg PO DAILY 06/06/22 06/24/23 release polyethylene glycol 3350 17 gram 17 g PO DAILY PRN Constipation 06/06/22 06/24/23 oral powder packet (Miralax) rosuvastatin 20 mg tablet 20 mg PO QPM 06/06/22 06/24/23 isosorbide mononitrate 30 mg 30 mg PO QAM 06/24/23 06/24/23 tablet,extended release 24 hr Results & Data (ED) Vital Signs Vital Signs - 24 hr 06/24/23 05:26 06/24/23 05:28 06/24/23 05:30 Temperature 36.7 C Temperature Source Oral Pulse Rate 58 L 58 L 56 L Pulse Rate [Apical] Pulse Rate from SpO2 Sensor 58 L Pulse Rhythm Regular Pulse Rhythm [Apical] Pulse Strength Normal Pulse Strength [Apical] Respiratory Rate 13 16 Respiratory Effort / Characteristics Non-Labored Spontaneous Respiratory Depth Normal Respiratory Pattern Regular Blood Pressure 171/85 H Blood Pressure [Right Arm] Blood Pressure Mean 113 Blood Pressure Mean [Right Arm] Blood Pressure Position Lying Blood Pressure Position [Right Arm] Pulse Oximetry 95 95 Oxygen Delivery Method Room Air Sepsis Recent Fever Within 48 Hours No Sepsis New/Unexplained Change in Mental Status No Sepsis Action Taken by Nursing No Action Required 06/24/23 05:31 06/24/23 05:40 06/24/23 06:00 Temperature Temperature Source Pulse Rate 60 59 L Pulse Rate [Apical] 56 L Pulse Rate from SpO2 Sensor 60 58 L Pulse Rhythm Pulse Rhythm [Apical] Regular Pulse Strength Pulse Strength [Apical] Normal Respiratory Rate 14 20 18 Respiratory Effort / Characteristics Non-Labored Spontaneous Respiratory Depth Normal Respiratory Pattern Regular Blood Pressure Blood Pressure [Right Arm] 174/81 H Blood Pressure Mean Blood Pressure Mean [Right Arm] 112 Blood Pressure Position Blood Pressure Position [Right Arm] Semi-fowlers Pulse Oximetry 97 98 99 Oxygen Delivery Method Room Air Sepsis Recent Fever Within 48 Hours Sepsis New/Unexplained Change in Mental Status Sepsis Action Taken by Nursing 06/24/23 06:00 06/24/23 06:00 06/24/23 06:10 Temperature Temperature Source Pulse Rate 58 L 59 L Pulse Rate [Apical] Pulse Rate from SpO2 Sensor 57 L 59 L Pulse Rhythm Pulse Rhythm [Apical] Pulse Strength Pulse Strength [Apical] Respiratory Rate 16 24 Respiratory Effort / Characteristics Respiratory Depth Respiratory Pattern Blood Pressure 174/81 H Blood Pressure [Right Arm] Blood Pressure Mean 121 Blood Pressure Mean [Right Arm] Blood Pressure Position Blood Pressure Position [Right Arm] Pulse Oximetry 98 97 Oxygen Delivery Method Sepsis Recent Fever Within 48 Hours Sepsis New/Unexplained Change in Mental Status Sepsis Action Taken by Nursing 06/24/23 06:20 06/24/23 06:30 06/24/23 06:30 Temperature Temperature Source Pulse Rate 56 L 57 L Pulse Rate [Apical] Pulse Rate from SpO2 Sensor 56 L 58 L Pulse Rhythm Pulse Rhythm [Apical] Pulse Strength Pulse Strength [Apical] Respiratory Rate 21 13 Respiratory Effort / Characteristics Respiratory Depth Respiratory Pattern Blood Pressure 168/78 H Blood Pressure [Right Arm] Blood Pressure Mean 113 Blood Pressure Mean [Right Arm] Blood Pressure Position Blood Pressure Position [Right Arm] Pulse Oximetry 97 96 Oxygen Delivery Method Sepsis Recent Fever Within 48 Hours Sepsis New/Unexplained Change in Mental Status Sepsis Action Taken by Nursing 06/24/23 06:40 06/24/23 06:50 06/24/23 07:00 Temperature Temperature Source Pulse Rate 60 63 Pulse Rate [Apical] Pulse Rate from SpO2 Sensor 60 64 Pulse Rhythm Pulse Rhythm [Apical] Pulse Strength Pulse Strength [Apical] Respiratory Rate 17 17 Respiratory Effort / Characteristics Respiratory Depth Respiratory Pattern Blood Pressure 185/88 H Blood Pressure [Right Arm] Blood Pressure Mean 108 Blood Pressure Mean [Right Arm] Blood Pressure Position Blood Pressure Position [Right Arm] Pulse Oximetry 97 87 L Oxygen Delivery Method Sepsis Recent Fever Within 48 Hours Sepsis New/Unexplained Change in Mental Status Sepsis Action Taken by Nursing 06/24/23 07:00 06/24/23 07:10 06/24/23 07:20 Temperature Temperature Source Pulse Rate 65 67 63 Pulse Rate [Apical] Pulse Rate from SpO2 Sensor 65 66 63 Pulse Rhythm Pulse Rhythm [Apical] Pulse Strength Pulse Strength [Apical] Respiratory Rate 17 20 16 Respiratory Effort / Characteristics Respiratory Depth Respiratory Pattern Blood Pressure Blood Pressure [Right Arm] Blood Pressure Mean Blood Pressure Mean [Right Arm] Blood Pressure Position Blood Pressure Position [Right Arm] Pulse Oximetry 93 92 99 Oxygen Delivery Method Sepsis Recent Fever Within 48 Hours Sepsis New/Unexplained Change in Mental Status Sepsis Action Taken by Nursing 06/24/23 07:30 06/24/23 07:30 06/24/23 07:40 Temperature Temperature Source Pulse Rate 66 68 Pulse Rate [Apical] Pulse Rate from SpO2 Sensor 67 69 Pulse Rhythm Pulse Rhythm [Apical] Pulse Strength Pulse Strength [Apical] Respiratory Rate 13 17 Respiratory Effort / Characteristics Respiratory Depth Respiratory Pattern Blood Pressure 172/81 H Blood Pressure [Right Arm] Blood Pressure Mean 110 Blood Pressure Mean [Right Arm] Blood Pressure Position Blood Pressure Position [Right Arm] Pulse Oximetry 95 95 Oxygen Delivery Method Sepsis Recent Fever Within 48 Hours Sepsis New/Unexplained Change in Mental Status Sepsis Action Taken by Nursing 06/24/23 07:50 06/24/23 08:00 06/24/23 08:00 Temperature Temperature Source Pulse Rate 69 68 Pulse Rate [Apical] Pulse Rate from SpO2 Sensor 69 Pulse Rhythm Pulse Rhythm [Apical] Pulse Strength Pulse Strength [Apical] Respiratory Rate 20 15 Respiratory Effort / Characteristics Respiratory Depth Respiratory Pattern Blood Pressure 178/84 H Blood Pressure [Right Arm] Blood Pressure Mean 131 Blood Pressure Mean [Right Arm] Blood Pressure Position Blood Pressure Position [Right Arm] Pulse Oximetry 92 Oxygen Delivery Method Sepsis Recent Fever Within 48 Hours Sepsis New/Unexplained Change in Mental Status Sepsis Action Taken by Nursing 06/24/23 08:10 06/24/23 08:20 06/24/23 08:30 Temperature Temperature Source Pulse Rate 66 68 Pulse Rate [Apical] Pulse Rate from SpO2 Sensor Pulse Rhythm Pulse Rhythm [Apical] Pulse Strength Pulse Strength [Apical] Respiratory Rate 16 19 Respiratory Effort / Characteristics Respiratory Depth Respiratory Pattern Blood Pressure 180/86 H Blood Pressure [Right Arm] Blood Pressure Mean 129 Blood Pressure Mean [Right Arm] Blood Pressure Position Blood Pressure Position [Right Arm] Pulse Oximetry Oxygen Delivery Method Sepsis Recent Fever Within 48 Hours Sepsis New/Unexplained Change in Mental Status Sepsis Action Taken by Nursing 06/24/23 08:30 06/24/23 08:40 06/24/23 08:50 Temperature Temperature Source Pulse Rate 69 68 67 Pulse Rate [Apical] Pulse Rate from SpO2 Sensor Pulse Rhythm Pulse Rhythm [Apical] Pulse Strength Pulse Strength [Apical] Respiratory Rate 18 22 15 Respiratory Effort / Characteristics Respiratory Depth Respiratory Pattern Blood Pressure Blood Pressure [Right Arm] Blood Pressure Mean Blood Pressure Mean [Right Arm] Blood Pressure Position Blood Pressure Position [Right Arm] Pulse Oximetry Oxygen Delivery Method Sepsis Recent Fever Within 48 Hours Sepsis New/Unexplained Change in Mental Status Sepsis Action Taken by Nursing 06/24/23 09:00 06/24/23 09:00 Temperature Temperature Source Pulse Rate 74 Pulse Rate [Apical] Pulse Rate from SpO2 Sensor Pulse Rhythm Pulse Rhythm [Apical] Pulse Strength Pulse Strength [Apical] Respiratory Rate 26 H Respiratory Effort / Characteristics Respiratory Depth Respiratory Pattern Blood Pressure 179/81 H Blood Pressure [Right Arm] Blood Pressure Mean 129 Blood Pressure Mean [Right Arm] Blood Pressure Position Blood Pressure Position [Right Arm] Pulse Oximetry Oxygen Delivery Method Sepsis Recent Fever Within 48 Hours Sepsis New/Unexplained Change in Mental Status Sepsis Action Taken by Nursing Laboratory Data 06/24/23 05:37 06/24/23 05:37 Lab Results 06/24/23 Range/Units 05:37 WBC 6.27 (4.8-10.8) K/ul RBC 3.49 L (4.20-5.40) M/uL Hgb 9.6 L (12.0-16.0) g/dl Hct 30.5 L (37.0-47.0) % MCV 87.4 (80.0-100.0) fL MCH 27.5 (25.0-34.0) pg MCHC 31.5 L (32.0-36.0) g/dL RDW Std Deviation 49.1 H (36.4-46.3) fL RDW Coeff of Adalid 15.3 H (11.5-14.5) % Plt Count 211 (130-400) K/uL MPV 9.5 (9.4-12.4) fL Immature Gran % (Auto) 0.6 % Neut % (Auto) 73.3 % Lymph % (Auto) 14.0 % [place] % (Auto) 8.0 % Eos % (Auto) 3.5 % Baso % (Auto) 0.6 % Neut # (Auto) 4.59 (1.40-6.50) K/uL Lymph # (Auto) 0.88 L (1.20-3.40) K/uL [place] # (Auto) 0.50 (0.11-0.59) K/uL Eos # (Auto) 0.22 (0.00-0.50) K/uL Baso # (Auto) 0.04 (0.00-0.20) K/uL Immature Gran # (Auto) 0.04 (0.01-0.20) K/uL PT 10.5 (9.0-12.0) Seconds INR 1.0 (0.9-1.1) APTT 25 (21-31) Seconds PTT Ratio 0.9 Sodium 140 (136-145) mmol/L Potassium 4.2 (3.5-5.1) mmol/L Chloride 108 H (98-107) mmol/L Carbon Dioxide 23 (21-32) mmol/L Anion Gap 9 (3-11) BUN 31 H (6-23) mg/dl Creatinine 1.48 H (0.6-1.2) mg/dl Est Cr Clr Drug Dosing 31.4 ml/min Est GFR ( Amer) 37.6 ml/min Est GFR (Non-Af Amer) 32.4 ml/min BUN/Creatinine Ratio 20.9 H (10-20) Glucose 139 H (70-99(Fasting)) mg/dl Calcium 9.6 (8.6-10.3) mg/dl Magnesium 2.0 (1.7-2.4) mg/dl Total Bilirubin 0.3 (0.2-1.0) mg/dl AST 14 (13-39) U/L ALT 10 (7-52) U/L Alkaline Phosphatase 58 (34-104) U/L Troponin I High Sens 20.5 H (0-14) pg/ml Total Protein 6.8 (6.0-8.3) gm/dl Albumin 3.9 (3.4-5.0) gm/dl Globulin 2.9 (2.5-4.0) gm/dl Albumin/Globulin Ratio 1.3 (0.9-2) Adenovirus (PCR) Not Detected (NotDetected) B. pertussis DNA (PCR) Not Detected (NotDetected) B.parapertussis DNA PCR Not Detected (NotDetected) C. pneumoniae DNA (PCR) Not Detected (NotDetected) Coronavirus OC43 (PCR) Not Detected (NotDetected) Coronavirus HKU1 (PCR) Not Detected (NotDetected) Coronavirus 229E (PCR) Not Detected (NotDetected) SARS-CoV-2 (PCR) Not Detected (NotDetected) Coronavirus NL63 (PCR) Not Detected (NotDetected) Human Metapneumovir PCR Not Detected (NotDetected) Influenza Type A (PCR) Not Detected (NotDetected) Influenza Type B (PCR) Not Detected (NotDetected) M. pneumoniae (PCR) Not Detected (NotDetected) Parainfluenza 1 (PCR) Not Detected (NotDetected) Parainfluenza 2 (PCR) Not Detected (NotDetected) Parainfluenza 3 (PCR) Not Detected (NotDetected) Parainfluenza 4 (PCR) Not Detected (NotDetected) RSV (PCR) Not Detected (NotDetected) Entero/Rhino (PCR) Not Detected (NotDetected) Administered Medications Aspirin (Aspirin 81 Mg Ectab) 81 mg PO Q2D@0900 LEON Stop: 07/24/23 10:29 Last Admin: 06/24/23 11:00 Dose: 81 mg Documented By: ANNAMARIA Atenolol (Atenolol 25 Mg Tablet) 25 mg PO DAILY LEON Stop: 07/24/23 10:11 Last Admin: 06/24/23 10:59 Dose: 25 mg Documented By: ANNAMARIA Clopidogrel Bisulfate (Clopidogrel Bisulfate 75 Mg Tab) 75 mg PO DAILY [facility] Stop: 07/24/23 10:29 Last Admin: 06/24/23 11:00 Dose: 75 mg Documented By: ANNAMARIA Duloxetine HCl (Duloxetine Hcl 30 Mg Cap) 30 mg PO DAILY LEON Stop: 07/24/23 10:29 Last Admin: 06/24/23 10:59 Dose: 30 mg Documented By: ANNAMARIA Ezetimibe (Ezetimibe 10 Mg Tab) 10 mg PO DAILY LEON Stop: 07/24/23 10:29 Last Admin: 06/24/23 10:59 Dose: 10 mg Documented By: ANNAMARIA Enalapril Maleate (Enalapril Maleate 10 Mg Tab) 20 mg PO DAILY [facility] Stop: 07/24/23 10:29 Last Admin: 06/24/23 10:59 Dose: 20 mg Documented By: ANNAMARIA Sodium Chloride (Nss) 1,000 mls @ 80 mls/hr IV .[id number] LEON Stop: 06/24/23 22:41 Last Admin: 06/24/23 11:03 Dose: 80 mls/hr Documented By: ANNAMARIA Discontinued Medications Sodium Chloride (Nss) 500 mls @ 999 mls/hr IV .Q31M ONE Stop: 06/24/23 07:09 Last Infusion: 06/24/23 08:01 Dose: Infused Documented By: Admin: 06/24/23 07:21 Dose: 999 mls/hr Documented By: DESTINY Meclizine HCl (Meclizine Hcl 25 Mg Tab) 25 mg PO NOW STA Stop: 06/24/23 06:02 Last Admin: 06/24/23 06:09 Dose: 25 mg Documented By: KELLY Ondansetron HCl (Ondansetron Inj 2 Mg/Ml 2 Ml Vial) 4 mg IV NOW STA Stop: 06/24/23 06:02 Last Admin: 06/24/23 06:10 Dose: 4 mg Documented By: KELLY Imaging Data Radiologist's Impression: Chest X-Ray 06/24/23 05:34 SINGLE VIEW CHEST CLINICAL HISTORY: Dizziness FINDINGS: An AP, portable, upright chest radiograph is compared to study dated 11/09/2020 and correlated with chest CT dated 06/01/2022. A hiatal hernia is noted. The heart is enlarged noting atherosclerotic calcification of the thoracic aorta. The pulmonary vasculature is noncongested. The mitral annulus is densely calcified. Emphysema and chronic interstitial thickening is similar to previous. There is bibasilar scarring/atelectasis. The lungs and pleural spaces are otherwise clear. No pneumothorax is seen. The skeletal structures are osteopenic. The bony thorax is grossly intact. IMPRESSION: Cardiomegaly and emphysema with no active disease in the chest. ACT 112: Negative or not required by law. Electronically signed by: Jacques Lugo M.D. 06/24/2023 7:[address] 06/24/23 05:[address] DOSE: 547.75 mGy.cm HISTORY: vertiginous symptoms TECHNIQUE: Multiaxial CT images of the head were performed without the use of intravenous contrast. Automated exposure control was utilized for this study. A dose lowering technique was utilized adhering to the principles of ALARA. Comparison: Head CT 06/06/2022. Findings: The paranasal sinuses and mastoid air cells are clear. The calvarium and skull base are intact. The ventricles and sulci are within normal limits. There is no mass, hematoma, midline shift, or acute infarct. Impression: No acute intracranial abnormality. ACT 112: Negative or not required by law. Electronically signed by: Ty William M.D. 06/24/2023 6:41 AM Discharge Plan Visit Data Chief Complaint: Illness Stated Complaint: GENERALIZED ILLNESS, DIZZY, N/V ED Provider: Jaime Nguyen Discharge Problem: Dizziness, HTN (hypertension) Patient Disposition: Admitted As Inpatient Discharge Instructions Interventions: ED Discharge Assessment Last Done: 06/24/23 10:11
[2023-06-24 07:04] LABS: Adenovirus PCR Not Detected (NotDetected); Bordetella parapertussis PCR Not Detected (NotDetected); Bordetella pertussis PCR Not Detected (NotDetected); Chlamydia pneumoniae PCR Not Detected (NotDetected); Coronavirus 229E PCR Not Detected (NotDetected); Coronavirus CoV-2 (COVID19)PCR Not Detected (NotDetected); Coronavirus HKU1 PCR Not Detected (NotDetected); Coronavirus NL63 PCR Not Detected (NotDetected); Coronavirus OC43PCR Not Detected (NotDetected); Human Metapneumovirus PCR Not Detected (NotDetected); Influenza A PCR Not Detected (NotDetected); Influenza B PCR Not Detected (NotDetected); Mycoplasma pneumoniae PCR Not Detected (NotDetected); Parainfluenza Virus 1 PCR Not Detected (NotDetected); Parainfluenza Virus 2 PCR Not Detected (NotDetected); Parainfluenza Virus 3 PCR Not Detected (NotDetected); Parainfluenza Virus 4 PCR Not Detected (NotDetected); Respiratory Syncytial VirusPCR Not Detected (NotDetected); Rhinovirus/Enterovirus PCR Not Detected (NotDetected)
--- NOTE | 2023-06-24 07:49 | XRay Report ---
SINGLE VIEW CHEST CLINICAL HISTORY: Dizziness FINDINGS: An AP, portable, upright chest radiograph is compared to study dated 11/09/2020 and correlat ed with chest CT dated 06/01/2022. A hiatal hernia is noted. The heart is enlarged noting atheroscler otic calcification of the thoracic aorta. The pulmonary vasculature is noncongested. The mitral annul us is densely calcified. Emphysema and chronic interstitial thickening is similar to previous. There is bibasilar scarring/atelectasis. The lungs and pleural spaces are otherwise clear. No pneumothorax is seen. The skeletal structures are osteopenic. The bony thorax is grossly intact. IMPRESSION: Cardiomegaly and emphysema with no active disease in the chest. ACT 112: Negative or not required by law. Electronically signed by: Jacques Lugo M.D. 06/24/2023 7:46 AM
--- NOTE | 2023-06-24 08:24 | Electrocardiogram Report ---
Test Reason : Blood Pressure : / mmHG Vent. Rate : 057 BPM Atrial Rate : 057 BPM P-R Int : 188 ms QRS Dur : 084 ms QT Int : 468 ms P-R-T Axes : 070 033 023 degrees QTc Int : 455 ms Sinus bradycardia Otherwise normal ECG When compared with ECG of 08-JUN-2022 05:42, ST depression in Lateral leads no longer present Confirmed by Ralph Martinez ([id number]) on 06/24/2023 8:23:40 AM Referred By: Confirmed By:Ralph Martinez
--- NOTE | 2023-06-24 08:54 | History & Physical Report ---
Date of Service June 24, 2023 Assessment & Plan (1) Dizziness: Plan: -Admit to [facility] with telemetry -CT of the head is negative for any acute findings -MRI of the brain to rule out acute small CVA -Control nausea with Zofran as needed -Was given dose of meclizine in the ER which may possibly be helping -Sodium is okay, other electrolytes are within normal range -PT/OT consults, lives at home alone -No recent sick contacts, no infectious etiology, negative white count, afebrile (2) HTN (hypertension): Plan: -BP is noted to be 180 systolically upon admission, continue morning medications including atenolol 25 mg, enalapril 20 mg -Continue Plavix, patient is no longer on baby aspirin (3) CKD (chronic kidney disease) stage 3, GFR 30-59 ml/min: Plan: -CKD stage III is chronic -CR. 1.48, BUN 31 on admission -NS x 1 more bag and monitor (4) CAD (coronary artery disease): Plan: - History of such, continue Plavix, rosuvastatin - Check A1c and lipids with a.m. labs for completeness (5) HLD (hyperlipidemia): Plan: -Chronic, stable -Cont statin therapy DVT PPx: teds, scds Lines: 2 PIV FEN/GI: Allow heart healthy diet CODE: Full code Dispo: From home, likely to remain in the hospital x 1-2 days History of Present Illness Chief Complaint: Dizziness, nausea and vomiting Primary Care Provider: Jasson Denney MD This is an 83-year-old female with PMHx of HTN, CAD, HLD, COPD, CKD stage III, prediabetes with history of lightheadedness and dizziness who presents to the hospital with similar. She states that she had awoken last night around 4 AM to go to the bathroom as she normally does, but experienced dizziness and felt very unsteady, holding onto furniture and the josue that she mated to the bathroom. This morning when she woke up she mated down 1 flight of steps, still with persistent dizziness, developed nausea and vomited clear bilious fluid. She reports feeling in her normal state of health yesterday, no recent known sick contacts or upper respiratory illnesses, 8 well yesterday, denies any issues with tolerating fluids, and denies any recent medication changes or titrations. She denies any falls, loss of consciousness, presyncopal symptoms. Negative flu, COVID, RSV here. Negative CT head. Her blood pressure is elevated in the 170s upon presentation. She received dose of Zofran and meclizine here in the ER with minimal symptom improvement. She lives at home by herself, and due to this there is concern about falling, and we will monitor here in the hospital. Her son, Santos is present at bedside and supports the history. Allergies Allergy/AdvReac Type Severity Reaction Status Date / Time adhesive tape Allergy rash/itchy Verified 06/06/22 16:52 latex Allergy rash/itchy Verified 06/06/22 16:52 Home Medications Medication Instructions Recorded Confirmed Type Oscal 500/200 D3 1 tab PO DAILY 06/06/22 06/24/23 History acetaminophen 325 mg tablet 650 mg PO Q6 PRN Pain 06/06/22 06/24/23 History (Tylenol) albuterol sulfate 90 mcg/actuation 2 puff inhalation Q4 PRN Shortness 06/06/22 06/24/23 History aerosol inhaler (Ventolin HFA) Of Breath Or Wheezing atenolol 25 mg tablet 25 mg PO DAILY 06/06/22 06/24/23 History clopidogrel 75 mg tablet 75 mg PO DAILY 06/06/22 06/24/23 History docusate sodium 100 mg capsule 100 mg PO HS 06/06/22 06/24/23 History duloxetine 30 mg capsule,delayed 30 mg PO DAILY 06/06/22 06/24/23 History release enalapril maleate 10 mg tablet 20 mg PO DAILY 06/06/22 06/24/23 History ezetimibe 10 mg tablet 10 mg PO DAILY 06/06/22 06/24/23 History hazhmxepgzug-hmpappkq-skbdst tablet 1 tab PO DAILY 06/06/22 06/24/23 History nitroglycerin 0.4 mg sublingual 0.4 mg sublingual DIRECTED PRN 06/06/22 06/24/23 History tablet (Nitrostat) Chest Pain pantoprazole 20 mg tablet,delayed 40 mg PO DAILY 06/06/22 06/24/23 History release polyethylene glycol 3350 17 gram 17 g PO DAILY PRN Constipation 06/06/22 06/24/23 History oral powder packet (Miralax) rosuvastatin 20 mg tablet 20 mg PO QPM 06/06/22 06/24/23 History isosorbide mononitrate 30 mg 30 mg PO QAM 06/24/23 06/24/23 History tablet,extended release 24 hr Past Med/Surg History Medical History CAD (coronary artery disease) CKD (chronic kidney disease) stage 3, GFR 30-59 ml/min COPD (chronic obstructive pulmonary disease) Depression Heart attack HLD (hyperlipidemia) HTN (hypertension) Prediabetes Retroperitoneal bleed Tobacco abuse Surgical History H/O heart artery stent History of cataract removal with insertion of prosthetic lens History of hysterectomy 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 stent graft Family History Mother CHF (congestive heart failure) Father Emphysema of lung Sister Brain tumor Social History Smoking Status: Former smoker Tobacco Type: Cigarettes Second Hand Exposure: No; Do You Dip or Chew Tobacco: No; Tobacco Cessation Education Requested by Patient: No Hx Alcohol Use: No Hx Substance Use: No Preferred Language: Chilean Communication Ability: Effective Communication Ability Comment: unable to assess since patient is intubated Network Applications Specialist Required: No Beliefs That Will Affect Care: None marital status: / Current Living Situation: Alone current occupational status: retired Other Information That Helps Us Care for You: No Feels Safe at Home: Yes Safety Concerns: Feels Safe At This Time Assistive Devices: Cane Review of Systems Review of Systems: Constitutional: No fever, sweats or chills Eyes: No diplopia, no worsening or blurred vision ENT: normal hearing, no trouble swallowing Respiratory: No cough, sputum, dyspnea at rest or on exertion Cardiovascular: No chest pain, tightness or palpitations Abdomen: No pain, + nausea, + vomiting, no issues with diarrhea or constipation, reports internal and external hemorrhoids, occasional bright red blood on toilet paper, no increase in bleeding denies black tarry stools, no hematemesis no coffee-ground emesis Musculoskeletal: + Chronic back pain and uses Tylenol as needed, left knee joint pain, no calf pain, no swelling Neurologic: No weakness, numbness/tingling, or balance problems Psychiatric: No anxiety or depression Skin: No rash or itch Physical Exam Physical Exam: General: awake, alert, no apparent distress, + elderly white female Head: Normocephalic, atraumatic ENT: PERRL, EOMI, no pharyngeal exudate, mucous membranes moist Chest: Clear to auscultation, on room air, no adventitious breath sounds Cardiac: Regular rate and rhythm, + soft systolic murmur, no JVD, normal peripheral pulses, good capillary refill Abdominal: NABS x 4 quadrants, soft, nondistended, nontender to palpation, no rebound or guarding Extremities: Normal inspection, no peripheral edema or erythema, calfs nontender to palpation Psych: Normal mood and affect Neuro: AAO x 3, strength intact bilaterally and rated 5/5, no motor deficits, speech is clear, no peripheral sensory deficits Results & Data Results & Data Vital Signs (Past 12 Hours) Vital Signs Temp Pulse Pulse Resp BP BP Pulse Ox 06/24/23 06:00 56 L 18 174/81 H 99 06/24/23 05:30 56 L 06/24/23 05:28 36.7 C 58 L 16 171/85 H 95 O2 Del Method 06/24/23 06:00 Room Air 06/24/23 05:30 06/24/23 05:28 Room Air Laboratory Results 06/24/23 05:37 WBC 6.27 RBC 3.49 L Hgb 9.6 L Hct 30.5 L MCV 87.4 MCH 27.5 MCHC 31.5 L RDW Std Deviation 49.1 H RDW Coeff of Adalid 15.3 H Plt Count 211 MPV 9.5 Immature Gran % (Auto) 0.6 Neut % (Auto) 73.3 Lymph % (Auto) 14.0 Bracken % (Auto) 8.0 Eos % (Auto) 3.5 Baso % (Auto) 0.6 Neut # (Auto) 4.59 Lymph # (Auto) 0.88 L Bracken # (Auto) 0.50 Eos # (Auto) 0.22 Baso # (Auto) 0.04 Immature Gran # (Auto) 0.04 PT 10.5 INR 1.0 APTT 25 PTT Ratio 0.9 Sodium 140 Potassium 4.2 Chloride 108 H Carbon Dioxide 23 Anion Gap 9 BUN 31 H Creatinine 1.48 H Est Cr Clr Drug Dosing 31.4 Est GFR ( Amer) 37.6 Est GFR (Non-Af Amer) 32.4 BUN/Creatinine Ratio 20.9 H Glucose 139 H Calcium 9.6 Magnesium 2.0 Total Bilirubin 0.3 AST 14 ALT 10 Alkaline Phosphatase 58 Troponin I High Sens 20.5 H Total Protein 6.8 Albumin 3.9 Globulin 2.9 Albumin/Globulin Ratio 1.3 Adenovirus (PCR) Not Detected B. pertussis DNA (PCR) Not Detected B.parapertussis DNA PCR Not Detected C. pneumoniae DNA (PCR) Not Detected Coronavirus OC43 (PCR) Not Detected Coronavirus HKU1 (PCR) Not Detected Coronavirus 229E (PCR) Not Detected SARS-CoV-2 (PCR) Not Detected Coronavirus NL63 (PCR) Not Detected Human Metapneumovir PCR Not Detected Influenza Type A (PCR) Not Detected Influenza Type B (PCR) Not Detected M. pneumoniae (PCR) Not Detected Parainfluenza 1 (PCR) Not Detected Parainfluenza 2 (PCR) Not Detected Parainfluenza 3 (PCR) Not Detected Parainfluenza 4 (PCR) Not Detected RSV (PCR) Not Detected Entero/Rhino (PCR) Not Detected Diagnostic Findings Chest X-Ray 06/24/23 05:34 SINGLE VIEW CHEST CLINICAL HISTORY: Dizziness FINDINGS: An AP, portable, upright chest radiograph is compared to study dated 11/09/2020 and correlated with chest CT dated 06/01/2022. A hiatal hernia is noted. The heart is enlarged noting atherosclerotic calcification of the thoracic aorta. The pulmonary vasculature is noncongested. The mitral annulus is densely calcified. Emphysema and chronic interstitial thickening is similar to previous. There is bibasilar scarring/atelectasis. The lungs and pleural spaces are otherwise clear. No pneumothorax is seen. The skeletal structures are osteopenic. The bony thorax is grossly intact. IMPRESSION: Cardiomegaly and emphysema with no active disease in the chest. ACT 112: Negative or not required by law. Electronically signed by: Jacques Lugo M.D. 06/24/2023 7:[address] 06/24/23 05:[address] DOSE: 547.75 mGy.cm HISTORY: vertiginous symptoms TECHNIQUE: Multiaxial CT images of the head were performed without the use of intravenous contrast. Automated exposure control was utilized for this study. A dose lowering technique was utilized adhering to the principles of ALARA. Comparison: Head CT 06/06/2022. Findings: The paranasal sinuses and mastoid air cells are clear. The calvarium and skull base are intact. The ventricles and sulci are within normal limits. There is no mass, hematoma, midline shift, or acute infarct. Impression: No acute intracranial abnormality. ACT 112: Negative or not required by law. Electronically signed by: Ty William M.D. 06/24/2023 6:41 AM Code Status & VTE Plan Code Status Full code-discussed with patient and her son at bedside Supervising Physician Co-Signing Physician Notes Pt seen and examined by myself, Rae Reina MD on the day of service. Care was coordinated with Vale Kemp PA-C. 83yoF with PMHx significant for CAD on Plavix and aspirin presenting with severe episode of dizziness with ED requesting admission for concern for stroke. Notes that she woke up with the dizziness this morning, was very unsteady on her feet and associated with an episode of emesis. Son at bedside. States that at the time of exam, symptoms had improved but were still persistent. Notes that the gait unsteadiness was most worrisome. CT head with no acute changes. RRR Neuro exam with no gross abnormalities, CN II-XII grossly intact. Generalized decrease in strength bilaterally in lower extremities. MRI Brain, Neuro consult, PT/OT/speech and further stroke workup as detailed above. Continue Plavix and aspirin, statin. Otherwise as above.
[2023-06-24] MEDS ORDERED: ONDANSETRON INJ 2 MG/ML 2 ML VIAL IV PRN (10:12)
[2023-06-24] MEDS ORDERED: ACETAMINOPHEN 325 MG TAB PO PRN (10:12)
[2023-06-24] MEDS ORDERED: SODIUM CHLORIDE 0.9% 1,000 ML IV SCH (10:12)
[2023-06-24] MEDS: DULoxetine HCL 30 MG CAP PO SCH (10:59)
[2023-06-24] MEDS: ENALAPRIL MALEATE 10 MG TAB PO SCH (10:59)
[2023-06-24] MEDS: EZETIMIBE 10 MG TAB PO SCH (10:59)
[2023-06-24] MEDS: ATENOLOL 25 MG TABLET PO SCH (10:59)
[2023-06-24] MEDS: ASPIRIN 81 MG ECTAB PO SCH (11:00)
[2023-06-24] MEDS: CLOPIDOGREL BISULFATE 75 MG TAB PO SCH (11:00)
--- NOTE | 2023-06-24 12:27 | Magnetic Resonance Report ---
Brain MRI WITHOUT CONTRAST HISTORY: Dizziness. Eval for CVA TECHNIQUE: Multiplanar multisequence MRI of the brain was performed without the use of contrast. COMPARISON STUDY: Head CT 06/24/2023. FINDINGS: There is no mass, hematoma, midline shift, or acute infarct. The paranasal sinuses are jessica r. The mastoid air cells are clear. The ventricles and sulci demonstrate mild age-related involutiona l changes. Scattered foci of T2 hyperintensity seen within the periventricular and subcortical white matter are nonspecific but suggestive of mild microvascular ischemic changes. The major vascular flow voids at the skull base are well-maintained. IMPRESSION: No acute intracranial abnormality. ACT 112: Negative or not required by law. Electronically signed by: Ty William M.D. 06/24/2023 12:25 PM
[2023-06-24 16:02] LABS: Appearance Urine Clear (Clear); Bilirubin Urine Negative (Negative); Blood Urine Negative (Negative); Color Urine Yellow; Glucose Urine UA Negative (Negative); Ketones Urine Negative (Negative); Leukocyte Esterase Urine Negative (Negative); Nitrite Urine Negative (Negative); Protein Urine Negative (Negative); Specific Gravity Urine 1.011 (1.000-1.030); Urobilinogen Urine Negative (Negative)
[2023-06-24] MEDS: ROSUVASTATIN CALCIUM 20 MG TAB PO SCH (20:07)
[2023-06-25] MEDS ORDERED: MECLIZINE HCL 25 MG TAB PO PRN (00:56)
[2023-06-25 04:31] LABS: Albumin Globulin Ratio 1.4 (0.9-2); Albumin Level 3.6 gm/dl (3.4-5.0); BUN Creatinine Ratio 19.1 (10-20); Bilirubin,Total 0.3 mg/dl (0.2-1.0); Calcium 8.9 mg/dl (8.6-10.3); Chol HDL Ratio 1.8 (0-5); Creatinine Clr Calc Pharmacy 32.9 ml/min; Est GFR (African American) 39.8 ml/min; Est GFR (Non-African American) 34.4 ml/min; Globulin 2.6 gm/dl (2.5-4.0); Potassium 4.6 mmol/L (3.5-5.1); Total Protein 6.2 gm/dl (6.0-8.3)
[2023-06-25 07:38] LABS: Estimated Average Glucose 126 mg/dl
[2023-06-25] MEDS: ENALAPRIL MALEATE 10 MG TAB PO SCH (08:01)
[2023-06-25] MEDS: EZETIMIBE 10 MG TAB PO SCH (08:01)
[2023-06-25] MEDS: DULoxetine HCL 30 MG CAP PO SCH (08:01)
[2023-06-25] MEDS: CLOPIDOGREL BISULFATE 75 MG TAB PO SCH (08:02)
[2023-06-25] MEDS: ATENOLOL 25 MG TABLET PO SCH (08:02)
--- NOTE | 2023-06-25 08:02 | Neurology Consultation ---
Date of Consultation June 25, 2023 Assessment & Plan (1) Vertigo: 83F with a PMH of HTN, HLD and CAD who presents with acute onset vertigo and headache. Her exam is currently normal but she does report still feeling slightly unsteady. MRI was negative for stroke. The cause of the vertigo is most likely vestibulits but she is feeling considerably better today so i don't recommend steroids. A secondary reaction to the HTN or migraine with aura are also considerations (2) Dizziness: Plan - no further neurologic work up in patient - continue Plavix - PT evaluation Telehealth Consultation Telehealth Information Telehealth Information: I performed this visit using a real-time telehealth connection between my location and the patients location ([facility]). After connecting through interactive tele-video, patient was identified by name and date of and/or wristband check.Patient (or authorized healthcare guest experience representative) was informed that this was a telemedicine visit and it was being conducted confidentially over secure lines. My office door was closed and no one else was present in the room with me.Patient (or authorized healthcare guest experience representative) provided consent to proceed with the visit, expressed an understanding of privacy and security of the telemedicine visit, and gave permission to have a hospital guest experience representative in the room in order to assist with the visit and to conduct portions of the visit, as needed. I informed the patient (or authorized healthcare guest experience representative) that I reviewed their record and presented the opportunity for them to ask any questions regarding the visit today. The patient agreed to participate. History of Present Illness Reason for Consultation: Dizziness Requesting Physician: Dr Reina Attending Physician: Rae Reina MD History of Present Illness She reports that she was in bed and had to get up to go to the bathroom and when she rolled over in bed she felt very dizzy. Then when she went to get up she felt very dizzy and vomited . Currently she continues to feel dizzy. She describes the dizziness as a terrible headache and then she loses her balance. She says that she is still concerned about walking because she is intermittently dizzy. She has had symptoms like this before and has a history of migraine with aura. She continues to have migraine with aura and this occurs about once a month. She denies hearing changes She does endorse intermittent SOB. She denies, weakness, headache, chest pain, numbness, vision loss, fevers, Allergies Allergy/AdvReac Type Severity Reaction Status Date / Time adhesive tape Allergy rash/itchy Verified 06/06/22 16:52 latex Allergy rash/itchy Verified 06/06/22 16:52 Home Medications Medication Instructions Recorded Confirmed Type Oscal 500/200 D3 1 tab PO DAILY 06/06/22 06/24/23 History acetaminophen 325 mg tablet 650 mg PO Q6 PRN Pain 06/06/22 06/24/23 History (Tylenol) albuterol sulfate 90 mcg/actuation 2 puff inhalation Q4 PRN Shortness 06/06/22 06/24/23 History aerosol inhaler (Ventolin HFA) Of Breath Or Wheezing atenolol 25 mg tablet 25 mg PO DAILY 06/06/22 06/24/23 History clopidogrel 75 mg tablet 75 mg PO DAILY 06/06/22 06/24/23 History docusate sodium 100 mg capsule 100 mg PO HS 06/06/22 06/24/23 History duloxetine 30 mg capsule,delayed 30 mg PO DAILY 06/06/22 06/24/23 History release enalapril maleate 10 mg tablet 20 mg PO DAILY 06/06/22 06/24/23 History ezetimibe 10 mg tablet 10 mg PO DAILY 06/06/22 06/24/23 History llcbyitkjmie-fbulbdrv-pwgcua tablet 1 tab PO DAILY 06/06/22 06/24/23 History nitroglycerin 0.4 mg sublingual 0.4 mg sublingual DIRECTED PRN 06/06/22 06/24/23 History tablet (Nitrostat) Chest Pain pantoprazole 20 mg tablet,delayed 40 mg PO DAILY 06/06/22 06/24/23 History release polyethylene glycol 3350 17 gram 17 g PO DAILY PRN Constipation 06/06/22 06/24/23 History oral powder packet (Miralax) rosuvastatin 20 mg tablet 20 mg PO QPM 06/06/22 06/24/23 History isosorbide mononitrate 30 mg 30 mg PO QAM 06/24/23 06/24/23 History tablet,extended release 24 hr Patient History Medical History CAD (coronary artery disease) CKD (chronic kidney disease) stage 3, GFR 30-59 ml/min COPD (chronic obstructive pulmonary disease) Depression Heart attack HLD (hyperlipidemia) HTN (hypertension) Prediabetes Retroperitoneal bleed Tobacco abuse Surgical History H/O heart artery stent History of cataract removal with insertion of prosthetic lens History of hysterectomy 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 stent graft Family History Mother CHF (congestive heart failure) Father Emphysema of lung Sister Brain tumor Social History Smoking Status: Former smoker Tobacco Type: Cigarettes Second Hand Exposure: No; Do You Dip or Chew Tobacco: No; Tobacco Cessation Education Requested by Patient: No Hx Alcohol Use: No Hx Substance Use: No Preferred Language: Mexican Communication Ability: Effective Communication Ability Comment: unable to assess since patient is intubated Stem Maker Required: No Beliefs That Will Affect Care: None marital status: / Current Living Situation: Alone current occupational status: retired Other Information That Helps Us Care for You: No Feels Safe at Home: Yes Safety Concerns: Feels Safe At This Time Assistive Devices: Cane Physical Exam Exam: Constitutional: Appearance normally developed Head and face: normocephalic and atraumatic Eyes: no ptosis, no anisocoria, and no dysconjugate gaze Respiratory: normal effort Cardiovascular: regular rhythm and regular rate Abdomen: non distended Skin: no rashes, lesions, or ulcers noted Psychiatric: normal judgement and insight, normal mood, and normal affect NEUROLOGIC EXAMINATION: Mental Status:alert, oriented to time, place, person, normal recent memory, normal remote memory, normal attention span, normal concentration, normal language, and normal fund of knowledge Cranial Nerves: CN 2 - no visual defect on confrontation and pupils round, equal, reactive to light CN 3, 4, 6 - extra-ocular movements intact and no nystagmus CN 5 - facial sensation intact CN 7 - no facial asymmetry CN 8 - intact hearing CN 9, 10 - palate symmetric, normal gag CN 11 - good shoulder shrug CN 12 - tongue midline MOTOR: Strength was at least antigravity throughout, Pronator drift was absent, and There were no abnormal movements SENSATION: intact to light touch GAIT: COORDINATION: no ataxia with finger to nose testing and heel to lora testing REFLEXES: cannot assess over telemedicine Results & Data Vital Signs (Past 12 Hours) Vital Signs Temp Pulse Pulse Resp BP Pulse Ox Pulse Ox 06/25/23 07:04 63 06/25/23 04:00 65 22 145/70 H 90 06/25/23 00:00 67 17 134/74 94 06/25/23 00:00 98 06/24/23 23:36 70 06/24/23 20:08 36.9 C 68 16 94 O2 Del Method O2 Del Method 06/25/23 07:04 06/25/23 04:00 Room Air 06/25/23 00:00 Room Air 06/25/23 00:00 Room Air 06/24/23 23:36 06/24/23 20:08 Room Air Laboratory Results Abnormal Lab Results 06/24/23 06/24/23 06/24/23 09:09 12:18 15:35 Sodium Potassium Chloride Carbon Dioxide Anion Gap BUN Creatinine Est Cr Clr Drug Dosing Est GFR ( Amer) Est GFR (Non-Af Amer) BUN/Creatinine Ratio Glucose Estimat Average Glucose Hemoglobin A1c Calcium Total Bilirubin AST ALT Alkaline Phosphatase Troponin I High Sens 16.5 H D 19.1 H Total Protein Albumin Globulin Albumin/Globulin Ratio Triglycerides Cholesterol LDL Cholesterol, Calc VLDL Cholesterol, Calc HDL Cholesterol Cholesterol/HDL Ratio Urine Color Yellow Urine Appearance Clear Urine pH 6.0 Ur Specific [place] 1.011 Urine Protein Negative Urine Glucose (UA) Negative Urine Ketones Negative Urine Blood Negative Urine Nitrite Negative Urine Bilirubin Negative Urine Urobilinogen Negative Ur Leukocyte Esterase Negative 06/24/23 06/25/23 17:26 03:16 Sodium 141 Potassium 4.6 Chloride 112 H Carbon Dioxide 23 Anion Gap 6 BUN 27 H Creatinine 1.41 H Est Cr Clr Drug Dosing 32.9 Est GFR ( Amer) 39.8 Est GFR (Non-Af Amer) 34.4 BUN/Creatinine Ratio 19.1 Glucose 83 Estimat Average Glucose 126 Hemoglobin A1c 6.0 H Calcium 8.9 Total Bilirubin 0.3 AST 13 ALT 9 Alkaline Phosphatase 53 Troponin I High Sens 20.6 H Total Protein 6.2 Albumin 3.6 Globulin 2.6 Albumin/Globulin Ratio 1.4 Triglycerides 86 Cholesterol 109 LDL Cholesterol, Calc 31 VLDL Cholesterol, Calc 17 HDL Cholesterol 61 Cholesterol/HDL Ratio 1.8 Urine Color Urine Appearance Urine pH Ur Specific [place] Urine Protein Urine Glucose (UA) Urine Ketones Urine Blood Urine Nitrite Urine Bilirubin Urine Urobilinogen Ur Leukocyte Esterase Diagnostic Findings Brain MRI 06/24/23 09:20 Brain MRI WITHOUT CONTRAST HISTORY: Dizziness. Eval for CVA TECHNIQUE: Multiplanar multisequence MRI of the brain was performed without the use of contrast. COMPARISON STUDY: Head CT 06/24/2023. FINDINGS: There is no mass, hematoma, midline shift, or acute infarct. The paranasal sinuses are clear. The mastoid air cells are clear. The ventricles and sulci demonstrate mild age-related involutional changes. Scattered foci of T2 hyperintensity seen within the periventricular and subcortical white matter are nonspecific but suggestive of mild microvascular ischemic changes. The major vascular flow voids at the skull base are well-maintained. IMPRESSION: No acute intracranial abnormality. ACT 112: Negative or not required by law. Electronically signed by: Ty William M.D. 06/24/2023 12:25 PM
--- NOTE | 2023-06-25 19:33 | Hospitalist Progress Note ---
Date of Service June 25, 2023 Assessment & Plan (1) Dizziness: Plan: -CT of the head is negative for any acute findings -MRI of the brain negative -Control nausea with Zofran as needed Neurology consult- vestibulitis, no steroids at this time, f/u with PT -PT/OT lives at home alone- recommending rehab -pt initially did not want to go -now asking for more info (2) HTN (hypertension): Plan: -BP is noted to be 180 systolically upon admission continue medications including atenolol 25 mg, enalapril 20 mg (3) CKD (chronic kidney disease) stage 3, GFR 30-59 ml/min: Plan: -CKD stage III is chronic -CR. 1.48, BUN 31 on admission Stable (4) CAD (coronary artery disease): Plan: - History of such, continue Plavix, rosuvastatin, aspirin (5) HLD (hyperlipidemia): Plan: -Chronic, stable -Cont statin therapy dvt prophylaxis: scds in setting of hgb of 9 FEN/GI: heart healthy diet CODE: Full code Admission and Anticipated Discharge Date Admission Date: June 24, 2023 Subjective Pt seen multiple times. States that she has does not want to go to rehab. Asking about going home. Dizziness still present, just not as severe. Review of Systems Review of Systems: All systems reviewed & are unremarkable except as noted in Subjective Physical Exam Physical Exam: General: Alert, oriented. No acute distress Skin: No noted rashes or bruises Psych: Appropriate mood and affect Neuro: No gross deficits while laying in the bed HEENT: NC/AT Chest: Nontender to palpation. CV: RRR Resp: Breath sounds clear bilaterally, no increased effort of breathing. Abdomen: Soft, nontender, nondistended. Extremities: No edema in lower extremities bilaterally. Results & Data Results & Data Vital Signs (Past 12 Hours) Vital Signs Pulse Pulse Resp BP Pulse Ox Pulse Ox O2 Del Method 06/25/23 08:00 66 18 163/73 H 95 Room Air 06/25/23 07:04 63 06/25/23 04:00 65 22 145/70 H 90 Room Air 06/25/23 00:00 67 17 134/74 94 Room Air 06/25/23 00:00 98 06/24/23 23:36 70 O2 Del Method 06/25/23 08:00 06/25/23 07:04 06/25/23 04:00 06/25/23 00:00 06/25/23 00:00 Room Air 06/24/23 23:36
[2023-06-25] MEDS: ROSUVASTATIN CALCIUM 20 MG TAB PO SCH (21:07)
[2023-06-26 06:17] LABS: BUN Creatinine Ratio 22.9 (10-20); Calcium 9.3 mg/dl (8.6-10.3); Creatinine Clr Calc Pharmacy 33.1 ml/min; Est GFR (African American) 40.2 ml/min; Est GFR (Non-African American) 34.7 ml/min; Magnesium 1.8 mg/dl (1.7-2.4); Phosphorus 3.7 mg/dl (2.5-4.9); Potassium 4.5 mmol/L (3.5-5.1)
[2023-06-26 06:18] LABS: Hematocrit (blood only) 30.6 % (37.0-47.0); Hemoglobin 9.5 g/dl (12.0-16.0); Mean Corpuscular Hemoglobin 27.1 pg (25.0-34.0); Mean Corpuscular Volume 87.4 fL (80.0-100.0); Platelet Count 206 K/uL (130-400); RDW Coefficient of Variation 15.1 % (11.5-14.5); RDW Standard Deviation 48.3 fL (36.4-46.3); White Blood Count 6.44 K/ul (4.8-10.8)
[2023-06-26] MEDS: EZETIMIBE 10 MG TAB PO SCH (09:24)
[2023-06-26] MEDS: DULoxetine HCL 30 MG CAP PO SCH (09:24)
[2023-06-26] MEDS: CLOPIDOGREL BISULFATE 75 MG TAB PO SCH (09:24)
[2023-06-26] MEDS: ATENOLOL 25 MG TABLET PO SCH (09:24)
[2023-06-26] MEDS: ENALAPRIL MALEATE 10 MG TAB PO SCH (09:24)
[2023-06-26] MEDS: ASPIRIN 81 MG ECTAB PO SCH (09:24)
[2023-06-26] MEDS ORDERED: PANTOprazole 40 MG TAB PO SCH (10:15)
--- NOTE | 2023-06-26 13:42 | Discharge Summary ---
Discharge Summary Date of Service June 26, 2023 Notes For Next Care Provider Please ensure pt follows up with home health services- declined rehab placement Medication Changes From Visit None Admission HPI Per Admitting Provider This is an 83-year-old female with PMHx of HTN, CAD, HLD, COPD, CKD stage III, prediabetes with history of lightheadedness and dizziness who presents to the hospital with similar. She states that she had awoken last night around 4 AM to go to the bathroom as she normally does, but experienced dizziness and felt very unsteady, holding onto furniture and the josue that she mated to the bathroom. This morning when she woke up she mated down 1 flight of steps, still with persistent dizziness, developed nausea and vomited clear bilious fluid. She reports feeling in her normal state of health yesterday, no recent known sick contacts or upper respiratory illnesses, 8 well yesterday, denies any issues with tolerating fluids, and denies any recent medication changes or titrations. She denies any falls, loss of consciousness, presyncopal symptoms. Negative flu, COVID, RSV here. Negative CT head. Her blood pressure is elevated in the 170s upon presentation. She received dose of Zofran and meclizine here in the ER with minimal symptom improvement. She lives at home by herself, and due to this there is concern about falling, and we will monitor here in the hospital. Her son, Santos is present at bedside and supports the history. Admission Exam Per Admitting Provider General: awake, alert, no apparent distress, + elderly white female Head: Normocephalic, atraumatic ENT: PERRL, EOMI, no pharyngeal exudate, mucous membranes moist Chest: Clear to auscultation, on room air, no adventitious breath sounds Cardiac: Regular rate and rhythm, + soft systolic murmur, no JVD, normal peripheral pulses, good capillary refill Abdominal: NABS x 4 quadrants, soft, nondistended, nontender to palpation, no rebound or guarding Extremities: Normal inspection, no peripheral edema or erythema, calfs nontender to palpation Psych: Normal mood and affect Neuro: AAO x 3, strength intact bilaterally and rated 5/5, no motor deficits, speech is clear, no peripheral sensory deficits Principal Dx & Hospital Course #1 = Principal Diagnosis (1) Labyrinthine vestibulitis: (2) Vertigo: (3) Dizziness: (4) HTN (hypertension): (5) Lightheadedness: (6) Fall: Plan Pt is an 83yoF with PMHx of HTN, CAD, HLD, COPD, CKD stage III, prediabetes presenting with episode of N/V and severe dizziness with concern for occult stroke. CT of the head was negative for any acute findings Follow up brain MRI was negative. Of note pt is on plavix and aspirin at home used in the setting of her known coronary artery disease. Neurology was consulted and thought that her symptoms were likely related to Vestibulitis. However since her symptoms had improved at the time she was seen, no steroid treatment was recommended. Her N/V was controlled with zofran and she was seen by physical therapy who recommended inpatient rehab. She declined inpatient rehab instead opting to go home with home health services. Pt lives alone but states she will be staying with her son for some time after discharge. Close PCP follow up after discharge. Discharge Exam General: Alert, oriented. No acute distress Skin: No noted rashes or bruises Psych: Appropriate mood and affect Neuro: difficulty with movements on her own HEENT: NC/AT Chest: Nontender to palpation. CV: RRR Resp: Breath sounds clear bilaterally, no increased effort of breathing. Abdomen: Soft, nontender, nondistended. Extremities: No edema in lower extremities bilaterally Updated Medication List Medication Instructions Recorded Confirmed Type Oscal 500/200 D3 1 tab PO DAILY 06/06/22 06/24/23 History acetaminophen 325 mg tablet 650 mg PO Q6 PRN Pain 06/06/22 06/24/23 History (Tylenol) albuterol sulfate 90 mcg/actuation 2 puff inhalation Q4 PRN Shortness 06/06/22 06/24/23 History aerosol inhaler (Ventolin HFA) Of Breath Or Wheezing atenolol 25 mg tablet 25 mg PO DAILY 06/06/22 06/24/23 History clopidogrel 75 mg tablet 75 mg PO DAILY 06/06/22 06/24/23 History docusate sodium 100 mg capsule 100 mg PO HS 06/06/22 06/24/23 History duloxetine 30 mg capsule,delayed 30 mg PO DAILY 06/06/22 06/24/23 History release enalapril maleate 10 mg tablet 20 mg PO DAILY 06/06/22 06/24/23 History ezetimibe 10 mg tablet 10 mg PO DAILY 06/06/22 06/24/23 History hlliynepvkft-qyiwvdin-vwzjce tablet 1 tab PO DAILY 06/06/22 06/24/23 History nitroglycerin 0.4 mg sublingual 0.4 mg sublingual DIRECTED PRN 06/06/22 06/24/23 History tablet (Nitrostat) Chest Pain pantoprazole 20 mg tablet,delayed 40 mg PO DAILY 06/06/22 06/24/23 History release polyethylene glycol 3350 17 gram 17 g PO DAILY PRN Constipation 06/06/22 06/24/23 History oral powder packet (Miralax) rosuvastatin 20 mg tablet 20 mg PO QPM 06/06/22 06/24/23 History isosorbide mononitrate 30 mg 30 mg PO QAM 06/24/23 06/24/23 History tablet,extended release 24 hr Hospital Stay Data Consultations 06/24/23 08:48 ED Decision to Admit Stat 06/24/23 17:59 Consult Neurology Routine Diagnostic Imagining Performed 06/24/23 05:44 CT head/brain wo con Stat 06/24/23 09:20 MRI Brain [MR brain wo con] Stat Chest X-Ray 06/24/23 05:34 SINGLE VIEW CHEST CLINICAL HISTORY: Dizziness FINDINGS: An AP, portable, upright chest radiograph is compared to study dated 11/09/2020 and correlated with chest CT dated 06/01/2022. A hiatal hernia is noted. The heart is enlarged noting atherosclerotic calcification of the thoracic aorta. The pulmonary vasculature is noncongested. The mitral annulus is densely calcified. Emphysema and chronic interstitial thickening is similar to previous. There is bibasilar scarring/atelectasis. The lungs and pleural spaces are otherwise clear. No pneumothorax is seen. The skeletal structures are osteopenic. The bony thorax is grossly intact. IMPRESSION: Cardiomegaly and emphysema with no active disease in the chest. ACT 112: Negative or not required by law. Electronically signed by: Jacques Lugo M.D. 06/24/2023 7:[address] 06/24/23 05:[address] DOSE: 547.75 mGy.cm HISTORY: vertiginous symptoms TECHNIQUE: Multiaxial CT images of the head were performed without the use of intravenous contrast. Automated exposure control was utilized for this study. A dose lowering technique was utilized adhering to the principles of ALARA. Comparison: Head CT 06/06/2022. Findings: The paranasal sinuses and mastoid air cells are clear. The calvarium and skull base are intact. The ventricles and sulci are within normal limits. There is no mass, hematoma, midline shift, or acute infarct. Impression: No acute intracranial abnormality. ACT 112: Negative or not required by law. Electronically signed by: Ty William M.D. 06/24/2023 6:41 AM Brain MRI 06/24/23 09:20 Brain MRI WITHOUT CONTRAST HISTORY: Dizziness. Eval for CVA TECHNIQUE: Multiplanar multisequence MRI of the brain was performed without the use of contrast. COMPARISON STUDY: Head CT 06/24/2023. FINDINGS: There is no mass, hematoma, midline shift, or acute infarct. The paranasal sinuses are clear. The mastoid air cells are clear. The ventricles and sulci demonstrate mild age-related involutional changes. Scattered foci of T2 hyperintensity seen within the periventricular and subcortical white matter are nonspecific but suggestive of mild microvascular ischemic changes. The major vascular flow voids at the skull base are well-maintained. IMPRESSION: No acute intracranial abnormality. ACT 112: Negative or not required by law. Electronically signed by: Ty William M.D. 06/24/2023 12:25 PM Discharge Instructions Given to Patient (Per Discharging Provider) Ms. Rosenbaum, Jamey were admitted with dizziness and concern that you were having an occult stroke. We ran tests and did imaging and determined that this was not the case. We had you follow up with a Neurologist who thought that your symptoms were related to a condition called Vestibulitis. He recommended that you follow up with physical therapy, which you did. Our physical therapists here thought that you would be a candidate for inpatient rehab but you declined. You instead opted to go home with home health services. Case Management has set that up for you and the home health service you selected will contact you to start services. You stated on the day of discharge that your dizziness had resolved. Please keep close follow up with your primary care provider after discharge. It was a pleasure taking care of you while you were here. Total Time Total Time Spent Total Time Spent (In Minutes): > 30 minutes Home Health Attestation I certify that this patient is under my care and that I, or a physicians assistant professor of dietetics working with me, had a face to-face encounter that meets the home health [id number] encounter requirements with this patient. The encounter with the patient was in whole, or in part, for the following medical condition, which is the primary reason for home health care (list medical condition): intractable dizziness; ambulatory dysfunction I certify that, based on my findings, the following services are medically necessary home health services: My clinical findings support the need for the above services because: Home Safety Assessment OT Assess ADL Status and Restore Function w ADLs PT Assessment for Endurance / Balance / Strength PT Eval for Safety and Mobility PT Eval for Safety, Gait Training, Assistive Devices PT Gait and Balance Training, Strengthening and Safety Vital Signs Further, I certify that my clinical findings support that this patient is homebound (i.e. absences from home require considerable and taxing effort and are for medical reasons or yarsanism services or infrequently or of short duration when for other reasons) because: Transportation Assistance/Unable to Leave Home Unassisted Certification for Home Health Services: Based on the above findings, I certify that this patient is confined to the home and needs intermittent long-term care, physical therapy and/or speech therapy or continues to need occupational therapy. The patient is under my care, and I have initiated the establishment of the plan of care. This patient will be followed by a physician who will periodically review the plan of care.
== END 2023-06-26 15:40 | disposition home health service (06) | DRG 149 ==
LOC: ED 05:22 → EDINP 09:01 → 2N 06-25 10:11

== ENCOUNTER 2023-12-22 05:41 | Inpatient (IN) ==
--- NOTE | 2023-12-12 12:26 | Anesthesiology Consultation ---
Date of Service December 12, 2023 Assessment & Plan (1) Encounter for pre-operative examination: Plan - check BMP STAT am DOS. Fluid orders to anesthesiologist review of BMP am DOS. - left arm restriction. - Per program services assistant on 12/12/23: No known infectious disease contacts, current infectious disease symptoms in past 10 days or COVID positive test result in the past 30 days. Chart Review Chart Review: Acceptable Risk for Surgery and Patient NOT seen in Pre Admission Testing History Surgery Operation Date: 12/22/23 10:05 Proposed Procedures p Laparoscopic Possible Open Extended Right Hemicolectomy - Pedro Peace MD Height/Weight Height: 5 ft 7 in Weight: 68.492 kg Allergies Allergy/AdvReac Type Severity Reaction Status Date / Time adhesive tape Allergy rash/itchy Verified 12/12/23 11:07 latex Allergy rash/itchy Verified 12/12/23 11:07 Medications Home Medications Medication Instructions Recorded Confirmed Last Taken acetaminophen 325 mg tablet 650 mg PO Q6H PRN Pain 06/06/22 12/12/23 Unknown (Tylenol) albuterol sulfate 90 mcg/actuation 2 puff inhalation Q4 PRN Shortness 06/06/22 12/12/23 Unknown aerosol inhaler (Ventolin HFA) Of Breath Or Wheezing clopidogrel 75 mg tablet 75 mg PO QAM 06/06/22 12/12/23 06/23/23 docusate sodium 100 mg capsule 100 mg PO HS 06/06/22 12/12/23 06/23/23 enalapril maleate 10 mg tablet 10 mg PO QAM 06/06/22 12/12/23 06/23/23 ezetimibe 10 mg tablet 10 mg PO QAM 06/06/22 12/12/23 06/23/23 xjeaorukgxti-mqittjvt-lbutqv tablet 1 tab PO DAILY 06/06/22 12/12/23 06/23/23 nitroglycerin 0.4 mg sublingual 0.4 mg sublingual DIRECTED PRN 06/06/22 12/12/23 Unknown tablet (Nitrostat) Chest Pain pantoprazole 20 mg tablet,delayed 20 mg PO QAM 06/06/22 12/12/23 06/06/22 09:00 release polyethylene glycol 3350 17 gram 17 g PO DAILY PRN Constipation 06/06/22 12/12/23 Unknown oral powder packet (Miralax) rosuvastatin 20 mg tablet 20 mg PO QPM 06/06/22 12/12/23 06/23/23 isosorbide mononitrate 30 mg 30 mg PO QAM 06/24/23 12/12/23 06/23/23 tablet,extended release 24 hr duloxetine 60 mg capsule,delayed 60 mg PO QAM 12/12/23 12/12/23 Unknown release sprinkle iron,carbonyl 65 mg-vitamin C 125 1 tab PO Q2D 12/12/23 12/12/23 Unknown mg tablet,delayed release (Vitron-C) metoprolol tartrate 25 mg tablet 25 mg PO QAM 12/12/23 12/12/23 Unknown metronidazole 500 mg tablet 500 mg PO BID 12/12/23 12/12/23 Unknown neomycin 500 mg tablet 500 mg PO UD 12/12/23 12/12/23 Unknown ondansetron 8 mg disintegrating 8 mg PO UD 12/12/23 12/12/23 Unknown tablet Past Medical History Medical History (Updated 12/12/23 @ 12:27 by Nisha Ballard PA-C) 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 shields, [facility] COPD (chronic obstructive pulmonary disease) "used to be heavy smoker, quit in 2019" Depression Heart attack 05/31/2002 History of colon cancer dx early october 2023 History of degenerative joint disease left knee History of skin cancer Hx of breast cancer dx 2022, sx and chemo Hx of iron deficiency anemia has had iron infusions Hx of migraines Hyperlipidemia Hypertension Limb alert care status left arm Prediabetes diet SOB (shortness of breath) on exertion ongoing due to her COPD Tobacco abuse hx Vertigo occasionally Past Family History Family History Mother CHF (congestive heart failure) Father Emphysema of lung Sister Brain tumor Past Surgical History Surgical History H/O heart artery stent 06/02/02, [facility] [place], x1 stent ([facility]) 01/03/03, "routine procedure that they knew would need to be done," [facility] in [place], x1 stent (Cordis); f/u trice brown History of cataract removal with insertion of prosthetic lens right/left History of esophagogastroduodenoscopy (EGD) History of hysterectomy 1983 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 stent graft 07/05/19, [facility], "thinks it had actually ruptured right when she got to the hospital"; excluder clips placed x6; has been monitored by dr. pope since this occurred. Hx of cardiac cath 06/02/02, [facility], [facility] in [place], x1 stent 12/2002, "routine procedure that they knew would need to be done," [facility] [place], x1 stent; f/u trice brown Hx of colonoscopy Hx of left mastectomy Hx of local excision of skin lesion skin cancer Social History Smoking Status: Former smoker Do You Dip or Chew Tobacco: No Smoking End Date: 06/2019 Hx Alcohol Use: Yes Alcohol type: wine alcohol intake frequency: holidays/special occasions only Hx Substance Use: No substance use type: does not use Testing Laboratory Results 12/01/23 WBC: 6.1 H/H: PLATELETS: 298,000 Electrocardiogram Date: 12/11/23 Sinus bradycardia, rate 58 bpm Possible LA enlargement Chest X-Ray Date: 06/24/23 *1view* Cardiomegaly and emphysema with no active disease in the chest. Echocardiogram Date: 11/10/20 EF 60-65% No segmental LV wall motion abnormalities Grade I diastolic dysfunction Aortic valve sclerosis moderate without significant aortic valvular stenosis Severe mitral annular calcifications with calcified mitral leaflets. Mild mitral regurgitation Mild tricuspid regurgitation Moderate aortic root dilatation Ascending aorta of normal dimension Stress Test Date: 11/10/20 Equivocal dobutamine stress echo No inducible wall motion abnormalities Dynamic ST segment depressions at peak HR with reproduction of her chest discomfort MPHR 90% Other Testing Brain MRI 06/24/23 No acute intracranial abnormality. Head CT 06/24/23 No acute intracranial abnormality.
--- OUTSIDE RECORDS SUMMARY | 2023-12-22 05:47 | External Medical Summary | Summary of Care ---
Author Name Unknown Organization [facility] Address [address] [facility] [place] [address] Phone [phone] Care Team Providers Care Aerial Crop Duster Name Role Phone Jasson Denney MD Primary Care Provide r Reason for Visit * Reason Onset Date Comments Test Results Imaging Study 12/12/2023 Encounter Details Date Type Department Care Team (Late st Contact Info) Description 12/12/2023 Telephone Gastroenterology, [facility] [address] [place] [address] Nitin Austin DO [address] [place] [address] Test Results Imaging Study Allergies Active Allergy Reactions Criticality Noted Date Comments Adhesive Tape 04/11/2006 Latex 06/06/2022 Other reaction(s): rash/itchy documented as of this encounter (statuses as of 12/12/2023) Medications Medication Sig Dispensed Refills Start Date End Date Status CENTRUM SILVER PO TABS one a day 0 08/11/2007 Active Polyethylene Glycol 3350 17 GM/SCOOP Oral Powder Take 17 g by mouth daily as needed for Constipation. Active cyclobenzaprine (FLEXERIL) 10 MG TabletIndications:S pasm of back muscles Take 1 Tab by mouth 3 times a day as needed for Muscle spasms. 30 Tab 1 09/30/2017 Active Additional Information Patient not taking.Reported on 09/24/2023 VENTOLIN HFA 108 (90 Base) MCG/ACT inhaler INHALE 2 PUFFS BY MOUTH EVERY 4 HOURS NEEDED FOR COUGH, SHORTNESS OF BREATH OR WHEEZING. 36 g 1 03/25/2018 Active Acetaminophen 325 MG Oral Tablet Take 2 Tablets by mouth every 6 hours as needed for Pain. Active docusate sodium (COLACE) 100 MG Capsule Take 1 Capsule by mouth every night at bedtime. 07/12/2019 Active Phenylephrine-[place] Butter 0.25-88.44 % Rectal Suppository Administer into the rectum as needed for Hemorrhoids. Active Nitroglycerin 0.4 MG Sublingual Tablet Sublingual (Nitrostat) Place 1 Tablet under the tongue as needed. 11/10/2020 Active Rosuvastatin Calcium 20 MG Oral Tablet (Crestor)Indication s:Dyslipidemia, goal LDL below 100 TAKE 1 TABLET BY MOUTH DAILY 90 Tablet 3 06/19/2023 Active Additional Information Patient taking differently:20 mg Oral Daily(AM), Takes at night, Reported on 11/18/2023 Iron-Vitamin C 65-125 MG Oral Tablet (Vitron C)Indications:Iron deficiency anemia, unspecified iron deficiency anemia type Take 1 Tablet by mouth in the morning. 90 Tablet 1 07/21/2023 Active Ezetimibe 10 MG Oral Tablet (Zetia)Indications: Dyslipidemia, goal to be determined TAKE 1 TABLET BY MOUTH DAILY 90 Tablet 3 09/04/2023 Active Clopidogrel Bisulfate 75 MG Oral Tablet (pLAVix)Indications :HTN, goal below 140/90 TAKE 1 TABLET BY MOUTH DAILY 90 Tablet 3 09/04/2023 Active DULoxetine HCl 60 MG Oral Capsule Delayed Release Particles (Cymbalta)Indicatio ns:Moderate episode of recurrent major depressive disorder (HCC),Chronic bilateral low back pain without sciatica Take 1 Capsule by mouth in the morning. 90 Capsule 1 09/30/2023 Active Metoprolol Tartrate 25 MG Oral Tablet (Lopressor) Take 1 Tablet by mouth in the morning and 1 Tablet before bedtime. 60 Tablet 5 10/13/2023 Active Pantoprazole Sodium 20 MG Oral Tablet Delayed Release (Protonix) Take 1 Tablet by mouth in the morning. 30 minutes before the first meal of the day. Do not crush, split or chew the tablet. 90 Tablet 3 10/14/2023 Active Isosorbide Mononitrate ER 30 MG Oral Tablet Extended Release 24 Hour (Imdur)Indications: Coronary artery disease involving [place] coronary artery of [place] heart without angina pectoris TAKE 1 TABLET BY MOUTH EVERY DAY IN THE MORNING 90 Tablet 1 11/13/2023 Active Enalapril Maleate 10 MG Oral Tablet (Vasotec) TAKE 2 TABLETS BY MOUTH EVERY DAY 180 Tablet 1 12/11/2023 Active Neomycin Sulfate 500 MG Oral Tablet (Neomycin Sulfate) Take 2 tabs at 4:00 p.m., 2 tabs at 5:00 p.m., and 2 tabs at 11:00 p.m. the day prior to surgery 6 Tablet 12/11/2023 Active metroNIDAZOLE 500 MG Oral Tablet (Flagyl) Take 2 tabs at 4:00 p.m., 2 tabs at 5:00 p.m., and 2 tabs at 11:00 p.m. the day prior to surgery 6 Tablet 12/11/2023 Active Ondansetron HCl 8 MG Oral Tablet (Zofran) Take 1 tab at 11:00 a.m. the day before surgery 5 Tablet 12/11/2023 Active documented as of this encounter (statuses as of 12/12/2023) Active Problems Problem Noted Date Diagnosed Date Colonic mass 11/25/2023 Iron deficiency anemia 08/12/2023 Encounter for antineoplastic chemotherapy 2022 Malignant neoplasm of left b reast in female, estrogen receptor positive 06/28/2022 Postherpetic neuralgia 06/28/2022 Hiatal hernia 08/07/2021 Schatzki's ring 08/07/2021 S/P angioplasty with stent 11/15/2020 Coronary artery disease invo lving [place] heart without angina pectoris 11/15/2020 Cardiac murmur [...] as of this encounter (statuses as of 12/12/2023) Resolved Problems Problem Noted Date Diagnosed Date [...] as of this encounter (statuses as of 12/12/2023) Immunizations Name Administration Dates Next Due COVID-19 mRNA, LNP-s, No Pre serve, 2-Dose Series ([employer]) 08/11/2020,07/21/2020 COVID-19, LNP-s, No Preserve , Dusty-sucrose, [...] the money to buy more. Never true 08/18/19 24 Within the past 12 months, t he food you bought just didn't last and you didn't have money to get more. Never true 08/18/2023 Childcare Answer Date Recorded Do you feel overwhelmed with taking care of a child, family member or friend? No 08/18/2023 Does your family need help f inding childcare? (Household - for ages 0-17 years) Not on file 08/18/2023 Clothing Answer Date Recorded Have you been unable to get clothing when it was really needed? No 08/18/2023 Is your family able to get c lothes or diapers when needed? (Household - for ages 0-17 years) Not on file 08/18/2023 Personal Safety Answer Date Recorded Do you feel unsafe or have concerns for your saf ety? No 08/18/2023 Do you have concerns for you r family's safety? (Household - for ages 0-17 years) Not on file 08/18/2023 Utilities Answer Date Recorded Do you have trouble paying y our heating, water, or electric bill? No 08/18/2023 Is your family able to pay t he heat, water, or electric bill? (Household - for ages 0-17 years) Not on file 08/18/2023 Does your family have access to good internet? (Household - for ages 0-17 years) Not on file 08/18/2023 Employment Status Answer Date Recorded Are you unemployed or without regular income? No 08/18/2023 Does the household have a re gular source of income? (Household - for ages 0-17 years) Not on file 08/18/2023 Social Connections Answer Date Recorded How often do you feel lonely or isolated from th ose around you? Never 08/18/2023 Financial Resource Strain Answer Date R ecorded Do you have any trouble payi ng for your medications, or do you think you might in the future? No 08/18/2023 Does your family have troubl e paying for medicine? (Household - for ages 0-17 years) Not on file 08/18/2023 Transportation Needs Answer Date Record ed READ ONLY Do you have troubl e getting a ride to medical visits or work? Never True 08/18/2023 Does your family have a hard time getting a ride to doctors visits? (Household - for ages 0-17 years) Not on file 08/18/2023 Has lack of transportation k ept you from medical appointments, meetings, work, or from getting things needed for daily living? Check all that apply. (Adult - for ages 18 years and over) Not on file 08/18/2023 Do you (or your family) have trouble finding or paying for a ride (transportation)? (Household - for ages 0-17 years) Not on file 08/18/2023 Housing Stability Answer Date Recorded Do you currently live in a s helter or have no steady place to sleep at night? No 08/18/2023 READ ONLY Do you think you a re at risk of becoming homeless? No 08/18/2023 Does your family worry about paying for your home or becoming homeless? (Household - for ages 0-17 years) Not on file 0 08/18/2023 Are you homeless or worried that you might be in the future? (Adult - for ages 18 years and over) Not on file Are you (or your family) stefan eless or worried that you might be in the future? (Household - for ages 0-17 years) Not on file Food Insecurity Answer Date Recorded Do you need food for this week? No 08/18/2023 Are you able to get enough f ood for your family? (Household - for ages 0-17 years) Not on file 08/18/2023 Does your family need food t his week? (Household - for ages 0-17 years) Not on file 08/18/2023 Do you always have enough fo od for your family? (Household - for ages 0-17 years) Not on file 08/18/2023 Sex and Gender Information Value Date Recorded Sex Assigned at Not on file Gender Identity Not on file Sexual Orientation Not on file Job Start Date Occupation Industry Not on file Not on file Not on file documented as of this encounter Miscellaneous Notes * Telephone Encounter - Nitin Austin DO - 12/12/2023 12:43 PM EDT I was able to contact the patient to review the CT results with her. The CT does confirm the presence of the mass that was identified during your recent colonoscopy. She was also found to have a enlarged lymph node in the local region. This will likely be part of the resection bed. The patient is being followed by Dr. Peace with our General Surgery Service who is planning to do a colon resection in the next few weeks. The patient will likely need to be seen by medical Oncology as well as an outpatient documented in this encounter Plan of Treatment Upcoming Encounters Date Type Department Care Team (Late st Contact Info) Description 12/22/2023 7:30 AM EDT Office Visit Non [facility], Operating Room, [facility] [address] [facility], [place] [address] Pdero Peace MD [address] [place] [address] 12/31/2023 1:00 PM EDT Office Visit Hematology/Oncology [facility] [address] [place] [phone] Gay Lu MD [address] [place] [address] 01/02/2024 9:30 AM EDT Office Visit General Surgery, [facility] [address] [place] [address] Pedro Peace MD [address] [place] [address] 02/10/2024 1:00 PM EDT Office Visit Family Medicine [address] [place] [phone] Kahlil Mooney CRNP [address] [place] [address] [place] [address] 04/05/2024 1:20 PM EDT Office Visit Dermatology [address] [place] [address] Melanie Frank PA-C [address] [place] [address] [place] [address] 07/23/2024 3:30 PM EST Office Visit Nephrology [address] [place] [address] Valery Urena PA-C [address] [place] [address] 08/17/2024 1:40 PM EST Office Visit Family Medicine [address] [place] [phone] Jasson Denney MD [address] [place] [address] [place] [address] Scheduled Procedures Name Priority Associated Diagnoses Date/Ti me COLONOSCOPY FLEXIBLE PROXIMAL DIAGNOSTIC Recall Colon cancer (HCC) Health Maintenance Due Date Last Done Comments Alpha-1 Antitrypsin 1958 DTaP,Tdap,and Td Vaccines (1 - Tdap) 1959 Zoster Vaccines (1 of 2) 1990 *COPD SEVERITY VERIFIED BY PFT 01/02/2018 Depression Monitoring 08/07/2022 08/07/2021 COVID-19 Vaccine ( season) 2023 05/13/2023, 06/11/2022, 02/05/2022, Additional history exists HbA1c 03/20/2024 03/20/2023, 100 10/2021, 11/01/2020, Additional history exists GFR 03/31/2024 09/30/2023, 02/0 06/2023, 06/30/2023, Additional history exists CKD PHOS USE SMARTSET 23031 09/29/2024 04/1 11/2023, 09/01/2023, 07/25/2022, Additional history exists Albumin/Creatinine Ratio 09/30/20242 024, 06/30/2023, 07/25/2022, Additional history exists O2 ASSESSMENT COMPLETED IN PAST YEAR FOR COPD 11/24/2024 11/25/2023 CKD HGB USE SMARTSET 67025 11/30/202411/30, 12/01/2023, 10/13/2023, Additional history exists DXA Scan 05/31/2026 05/31/2019, [...] this encounter Medical Devices Implanted Type Area Mechanical Engineering Draftsperson Device Identifier Shelf Expiration Date Model / Serial / Lot [place] Excluder Aaa Endoprothesis System-07/07/2019 Implanted:07/07/19 20 (Quantity not on file) Graft Description:Multiple implant s from system on same day [id number] Cordis Bx Velocity Cardiac Stent-06/02/2002 Implanted:06/02/20 02 (Quantity not on file) Stent CORDIS LEXA BX VELOCITY [id number] / / [id number] Cordis Bx Velocity Cardiac Stent-01/03/2003 Implanted:01/04/20 03 (Quantity not on file) Stent CORDIS LEXA VELOCITY [id number] / / [id number] documented as of this encounter Advance Directives * Full Code (Latest Code Status on File) Date Activated Date Inactivated Comments 08/14/2022 7:04 AM 08/14/2022 5:34 PM This order ref lects the patients wishes and were consensually agreed upon. Question Answer Comments Discussion of Advance Directives occurred with: Patient Does the patient have a Living Will? No Does the patient have Health Care Power of Attor maureen? No Healthcare Agents on File Name Relationship Healthcare Agent Relationship Communication Gus Rosenbaum Jr. Adult Child Health Care R epresentative (appointed verbally by patient or by statute hierarchy) Care Teams Aerial Crop Duster Relationship Specialty Start Date End Date Jasson Denney MD NPI: [id number] [place] [address] [place] [address] PCP - General Family Medicine 03/22/16 documented as of this encounter
--- OUTSIDE RECORDS SUMMARY | 2023-12-22 05:47 | External Medical Summary ---
Author Name Unknown Address Unknown Organization K01:[facility] - [address] [place] [address] Laboratory Report Ordering Provider Test Date Status CALEB VALERA 12/01/2023 11:09:01 Final Observation Date Value Abnormality Reference (Units ) Status CEA 12/01/2023 11:09:01 2.2 <=5.2 (ng/ mL) Final Performing Location [facility] - [address] [place] [address]
--- OUTSIDE RECORDS SUMMARY | 2023-12-22 05:47 | External Medical Summary ---
Author Name Unknown Address Unknown Organization K01:[facility] - [address] [place] [address] Laboratory Report Ordering Provider Test Date Status LIONEL GILL 12/01/2023 11:09:01 Final Observation Date Value Abnormality Reference (Units ) Status Iron 12/01/2023 11:09:01 35 33-151 (ug/dL) Final Iron-binding capacity 12/01/2023 11:09:01 211 Below low normal 250-425 (ug/dL) Final Transferrin Sat % 12/01/2023 11:09:01 17 15-55 (%) Final Performing Location [facility] - [address] [place] [address]
--- OUTSIDE RECORDS SUMMARY | 2023-12-22 05:47 | External Medical Summary | Summary of Care ---
Author Name Unknown Organization [facility] Address [address] [facility] [place] [address] Phone [phone] Care Team Providers Care Barrel Endshaker Adjuster Name Role Phone Jasson Denney MD Primary Care Provide r Reason for Visit * Reason Onset Date Comments Advice 12/17/2023 Jose Encounter Details Date Type Department Care Team (Late st Contact Info) Description 12/17/2023 Telephone Cardiology, [facility] [address] [place] [address] Inge Garcia PA-C [address] [place] [address] Advice (Jose) Allergies Active Allergy Reactions Criticality Noted Date Comments Adhesive Tape 04/11/2006 Latex 06/06/2022 Other reaction(s): rash/itchy documented as of this encounter (statuses as of 12/19/2023) Medications Medication Sig Dispensed Refills Start Date [...] mouth every night at bedtime. 07/12/2019 Active Phenylephrine-[place] Butter 0.25-88.44 % Rectal Suppository Administer into [...] 24 Hour (Imdur)Indications: Coronary artery disease involving [place] coronary artery of [place] heart without angina pectoris TAKE 1 TABLET [...] prior to surgery 6 Tablet 12/11/2023 Active Additional Information Patient not taking.Reported on 12/16/2023 metroNIDAZOLE 500 MG Oral Tablet (Flagyl) Take 2 tabs at 4:00 p.m., 2 tabs at 5:00 p.m., and 2 tabs at 11:00 p.m. the day prior to surgery 6 Tablet 12/11/2023 Active Additional Information Patient not taking.Reported on 12/16/2023 Ondansetron HCl 8 MG Oral Tablet (Zofran) Take 1 tab at 11:00 a.m. the day before surgery 5 Tablet 12/11/2023 Active Additional Information Patient not taking.Reported on 12/16/2023 documented as of this encounter (statuses as of 12/19/2023) Active Problems Problem Noted Date Diagnosed Date Colonic mass 11/25/2023 Iron deficiency anemia 08/12/2023 Encounter for antineoplastic chemotherapy 2022 Malignant neoplasm of left b reast in female, estrogen receptor positive 06/28/2022 Postherpetic neuralgia 06/28/2022 Hiatal hernia 08/07/2021 Schatzki's ring 08/07/2021 S/P angioplasty with stent 11/15/2020 Coronary artery disease invo lving picayune heart without angina pectoris 11/15/2020 Cardiac murmur [...] as of this encounter (statuses as of 12/19/2023) Resolved Problems Problem Noted Date Diagnosed Date [...] as of this encounter (statuses as of 12/19/2023) Immunizations Name Administration Dates Next Due COVID-19 mRNA, LNP-s, No Pre serve, 2-Dose Series (Armetheon) 08/11/2020,07/21/2020 COVID-19, LNP-s, No Preserve , Dusty-sucrose, Ages 12+ (Armetheon) 02/05/2022,08/07/2021 COVID-19, MRNA-LNP, 23-24, P F, 30 MCG/0.3 mL, 12 YRS AND ABOVE, IM (ubigrate-[facility]) 05/13/2023 Covid-19, Mrna, Lnp-s, Pf, B ivalent, 30 Mcg, IM, 12 yrs and above (Armetheon) 06/11/2022 Pneumococcal Conjugate Vacc, 13 Valent (Prevnar) [...] No 08/18/2023 Does the household have a [facility] source of income? (Household - for ages [...] encounter Miscellaneous Notes * Telephone Encounter - Dayna Lagunas CMA - 12/19/2023 2:42 PM EDT Faxed to [facility] * Telephone Encounter - Inge Garcia PA-C - 12/19/2023 9:36 AM EDT Note is complete/signed. * Telephone Encounter - Ty Carlin OSA - 12/19/2023 9:15 AM EDT Surgery called and is requesting the clearance be signed-off for patients surgery on Friday, .Thank you. * Telephone Encounter - Ankita Cardenas OSA - 12/17/2023 11:13 AM EDT Person calling: [facility] Relationship to patient: provider Number to return call: [phone] Reason for call(brief): pre op clearance Pharmacy: Provider Name:Jose Detailed message to office:Lizbeth is calling for cardiac clearance for pt. She was seen yesterday byInge. Surgery is Friday. Please advise at your earliest convenience. Thank you documented in this encounter Plan of Treatment Upcoming Encounters Date Type Department Care Team (Late st Contact Info) Description 12/22/2023 7:30 AM EDT Office Visit [facility], Operating Room, [facility] [address] [place] [address] Pedro Peace MD [address] [place] [address] 12/31/2023 1:00 PM EDT Office Visit Hematology/Oncology [facility] [address] [place] [phone] Gay Lu MD [address] [place] [address] 01/02/2024 9:30 AM EDT Office Visit General Surgery, [facility] [address] [place] [address] Pedro Peace MD [address] [place] [address] 02/10/2024 1:00 PM EDT Office Visit Family Medicine [address] [place] [phone] Kahlil Mooney CRNP [address] [place] [address] [place] [address] 04/05/2024 1:20 PM EDT Office Visit Dermatology [address] [place] [address] Melanie Frank PA-C [address] [place] [address] [place] [address] 06/17/2024 3:30 PM EST Office Visit Cardiology [address] [place] [address] Inge Garcia PA-C [address] [place] [address] 07/23/2024 3:30 PM EST Office Visit Nephrology [address] [place] [address] Valery Urena PA-C [address] [place] [address] 08/17/2024 1:40 PM EST Office Visit Family Medicine [address] [place] [phone] Jasson Denney MD [address] [place] [address] [place] [address] Scheduled Procedures Name Priority Associated Diagnoses Date/Ti me COLONOSCOPY FLEXIBLE PROXIMAL DIAGNOSTIC Recall Colon cancer (HCC) Health Maintenance Due Date Last Done Comments Alpha-1 Antitrypsin 1958 DTaP,Tdap,and Td Vaccines (1 - Tdap) 1959 Zoster Vaccines (1 of 2) 1990 *COPD SEVERITY VERIFIED BY PFT 01/02/2018 Depression Monitoring 08/07/2022 08/07/2021 COVID-19 Vaccine ( season) 2023 05/13/2023, 06/11/2022, 02/05/2022, Additional history exists Influenza Vaccine (FLU shot) (#1) 2024 03/20/2023, 04/04/2022, 03/19/2021, Additional history exists HbA1c 03/20/2024 03/20/2023, 100 10/2021, 11/01/2020, Additional history exists GFR 03/31/2024 09/30/2023, 020 06/2023, 06/30/2023, Additional history exists CKD PHOS USE SMARTSET 44803 09/29/202409/14, 09/01/2023, 07/25/2022, Additional history exists Albumin/Creatinine Ratio 09/30/202409/30/2 024, 06/30/2023, 07/25/2022, Additional history exists O2 ASSESSMENT COMPLETED IN PAST YEAR FOR COPD 11/24/2024 11/25/2023 CKD HGB USE SMARTSET 76429 11/30/202411/30, 12/01/2023, 10/13/2023, Additional history exists DXA Scan 05/31/2026 05/31/2019, 12/09/2006 Pneumococcal Vaccine: 65+ Years Completed 08/19/2016, 07/18/2015, 04/11/2006 HPV (Gardasil) Vaccine Aged Out No lo nger eligible based on patient's age to complete this topic Hepatitis B Vaccine Aged Out No longe r eligible based on patient's age to complete this topic MENINGOCOCCAL (MENACTRA/MENVEO) Aged Out No longer eligible based on patient's age to complete this topic documented as of this encounter Medical Devices Implanted Type Area Childbirth Educator Device Identifier Shelf Expiration Date Model / Serial / Lot [place] Excluder Aaa Endoprothesis System-07/07/2019 Implanted:07/07/19 20 (Quantity not on file) Graft Description:Multiple implant s from system on same day [id number] Cordis Bx Velocity Cardiac Stent-06/02/2002 Implanted:06/02/20 02 (Quantity not on file) Stent CORDIS LEXA BX VELOCITY [id number] / / [id number] Cordis Bx Velocity Cardiac Stent-01/03/2003 Implanted:01/04/20 03 (Quantity not on file) Stent CORDIS LEXA VELOCITY [id number] / / [id number] documented as of this encounter Advance Directives [...] patient or by statute hierarchy) Care Teams Barrel Endshaker Adjuster Relationship Specialty Start Date End Date Jasson Denney MD [address] [place] [address] [place] [address] PCP - General Family Medicine 03/22/16 documented as of this encounter
--- OUTSIDE RECORDS SUMMARY | 2023-12-22 05:47 | External Medical Summary | Summary of Care ---
Author Name Unknown Organization [facility] Address [address] [facility] [place] [address] Phone [phone] Care Team Providers Care Business Analysis Professional Name Role Phone Jasson Denney MD Primary Care Provide r Reason for Visit * Reason Comments Outpatient Testing Encounter Details Date Type Department Care Team (Late st Contact Info) Description 12/01/2023 11:10 AM EDT Laboratory Laboratory [address] [place] [phone] [facility] [address] [place] [address] Iron deficiency anemia, unspecified iron deficiency anemia type; Colonic mass; Malignant neoplasm of ascending colon (HCC) Allergies Active Allergy Reactions Criticality Noted Date Comments Adhesive Tape 04/11/2006 Latex 06/06/2022 Other reaction(s): rash/itchy documented as of this encounter (statuses as of 12/01/2023) Medications Medication Sig Dispensed Refills Start Date [...] mouth every night at bedtime. 07/12/2019 Active Phenylephrine-Longs Butter 0.25-88.44 % Rectal Suppository Administer into [...] the morning. 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 TAKE 1 TABLET BY MOUTH EVERY DAY IN THE MORNING 90 Tablet 1 11/13/2023 Active documented as of this encounter (statuses as of 12/01/2023) Active Problems Problem Noted Date Diagnosed Date Colonic mass 11/25/2023 Iron deficiency anemia 08/12/2023 Encounter for antineoplastic chemotherapy 2022 Malignant neoplasm of left b reast in female, estrogen receptor positive 06/28/2022 Postherpetic neuralgia 06/28/2022 Hiatal hernia 08/07/2021 Schatzki's ring 08/07/2021 S/P angioplasty with stent 11/15/2020 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 11/15/2020 Cardiac murmur [...] as of this encounter (statuses as of 12/01/2023) Resolved Problems Problem Noted Date Diagnosed Date [...] as of this encounter (statuses as of 12/01/2023) Immunizations Name Administration Dates Next Due COVID-19 mRNA, LNP-s, No Pre serve, 2-Dose Series (Molecular Detection) 08/11/2020,07/21/2020 COVID-19, LNP-s, No Preserve , Dusty-sucrose, Ages 12+ (Molecular Detection) 02/05/2022,08/07/2021 COVID-19, MRNA-LNP, 23-24, P F, 30 MCG/0.3 mL, 12 YRS AND ABOVE, IM ([employer]) 05/13/2023 Covid-19, Mrna, Lnp-s, Pf, B ivalent, 30 Mcg, IM, 12 yrs and above (Molecular Detection) 06/11/2022 Pneumococcal Conjugate Vacc, 13 Valent (Prevnar) [...] money to get more. Never true 08/18/2023 Sex and Gender Information Value Date Recorded Sex Assigned at Not on file Gender Identity Not on file Sexual Orientation Not on file Job Start Date Occupation Industry Not on file Not on file Not on file documented as of this encounter Plan of Treatment Upcoming Encounters Date Type Department Care Team (Late st Contact Info) Description 12/05/2023 11:00 AM EDT Office Visit Hematology/Oncology [place] Vickey Brandt [address] [place] [phone] Abena Xiong CRNP [address] [place] [address] [place] [address] 12/11/2023 9:00 AM EDT Office Visit General Surgery, [facility] [address] [place] [address] Pedro Peace MD [address] [place] [address] 02/10/2024 1:00 PM EDT Office Visit Family Medicine [address] [place] [phone] Kahlil Mooney [address] [place] [address] 04/05/2024 1:20 PM EDT Office Visit Dermatology [address] [place] [address] Melanie Frank PA-C [address] [place] [address] [place] [address] 07/23/2024 3:30 PM EST Office Visit Nephrology [address] [place] [address] Valery Urena PA-C [address] [place] [address] 08/17/2024 1:40 PM EST Office Visit Family Medicine [address] [place] [phone] Jasson Denney MD [address] [place] [address] [place] [phone] Pending Results Name Type Priority Associated Diagnoses Date /Time CBC WITH WBC DIFFERENTIAL Lab STAT Iron deficiency anemia, unspecified iron deficiency anemia type 12/01/2023 11:09 AM EDT FERRITIN Lab STAT Iron deficiency anemia, unspecified iron deficiency anemia type 12/01/2023 11:09 AM EDT IRON SCREEN, INCLUDING TIBC Lab STAT Iron deficiency anemia, unspecified iron deficiency anemia type 12/01/2023 11:09 AM EDT CEA Lab Routine Colonic mass Malignant neoplasm of ascending colon (HCC) 12/01/2023 11:09 AM EDT CBC Lab STAT Iron deficiency anemia, unspecified iron deficiency anemia type 12/01/2023 11:09 AM EDT DIFFERENTIAL, AUTOMATED Lab STAT Iron deficiency anemia, unspecified iron deficiency anemia type 12/01/2023 11:09 AM EDT Health Maintenance Due Date Last Done [...] Additional history exists CKD PHOS USE SMARTSET 86001 09/29/202409/14, 09/01/2023, 07/25/2022, Additional history exists Albumin/Creatinine Ratio 09/30/202409/30/2 024, 06/30/2023, 07/25/2022, Additional history exists CKD HGB USE SMARTSET 56349 10/12/202410/12, 09/30/2023, 09/30/2023, Additional history exists O2 ASSESSMENT COMPLETED IN PAST YEAR FOR COPD 11/24/2024 11/25/2023 DXA Scan 05/31/2026 05/31/2019, 12/09/2006 Pneumococcal Vaccine: [...] this encounter Medical Devices Implanted Type Area [employer] Device Identifier Shelf Expiration Date Model / Serial / Lot [place] Excluder [employer]aa [employer] System-07/07/2019 Implanted:07/07/19 20 (Quantity not on file) Graft Description:Multiple implant s from system on same day [id number] Cordis Bx Velocity Cardiac Stent-06/02/2002 Implanted:06/02/20 02 (Quantity not on file) Stent CORDIS LEXA BX VELOCITY [id number] / / [id number] Cordis Bx Velocity Cardiac Stent-01/03/2003 Implanted:01/04/20 03 (Quantity not on file) Stent CORDIS LEXA VELOCITY [id number] / / [id number] documented as of this encounter Visit Diagnoses Diagnosis Iron deficiency anemia, unspecified iron deficiency anemia type Colonic mass Other specified disorder of intestines Malignant neoplasm of ascending colon (HCC) Malignant neoplasm of ascending colon documented in this encounter Advance Directives * Full Code [...] patient or by statute hierarchy) Care Teams Business Analysis Professional Relationship Specialty Start Date End Date Jasson Denney MD [address] [place] [address] [place] [id number] PCP - General Family Medicine 03/22/16 documented as of this encounter
--- OUTSIDE RECORDS SUMMARY | 2023-12-22 05:47 | External Medical Summary | Summary of Care ---
Author Name Unknown Organization [facility] Address [address] [place] [address] Phone [phone] Care Team Providers Care Tipple Mechanic Name Role Phone Jasson Denney MD Primary Care Provide r Reason for Referral * Evaluate & Treat - Unlimited Visits (Within 10 days (routine)) - Authorized Specialty Diagnoses / Procedures Referred By Contac t Referred To Contact Hematology/Oncology / Hematology Oncology Diagnoses Malignant neoplasm of hepatic flexure (HCC) Abena Xiong CRNP [address] [place] [address] Referral ID Status Reason Start Date Expiration Date Visits Requested Visits Authorized [id number] Authorized Specialty Services Required 12/05/[phone] Question Answer Referral Priority Within 10 days (routine) Where should this appointment be scheduled? ising Reason for Referral Malignant Oncology (Solid Organ Cancer) Comments Colonoscopy 11/25/23 significant for right sided colon mass 1 in the cecum and 1 in the hepatic flexure. Biopsy showing Invasive adenocarcinoma, moderately differentiated. CT A/P ordered Scheduled with Dr. Peace 12/11/23. Reason for Visit * Reason Comments Follow Up Return Encounter Details Date Type Department Care Team (Late st Contact Info) Description 12/05/2023 11:00 AM EDT Office Visit Hematology/Oncology [facility]t [address] [place] [phone] Abena Xiong CRNP [address] [place] [address] Malignant neoplasm of hepatic flexure (HCC)*; Iron deficiency anemia, unspecified iron deficiency anemia type; History of breast cancer Allergies Active Allergy Reactions Criticality Noted Date Comments Adhesive Tape 04/11/2006 Latex 06/06/2022 Other reaction(s): rash/itchy documented as of this encounter (statuses as of 12/16/2023) Medications Medication Sig Dispensed Refills Start Date End Date Status CENTRUM SILVER PO TABS one a day 0 08/11/2007 Active Polyethylene Glycol 3350 17 GM/SCOOP Oral Powder Take 17 g by mouth daily as needed for Constipation. Active cyclobenzaprine (FLEXERIL) 10 MG TabletIndication s:Spasm [...] mouth every night at bedtime. 07/12/2019 Active Phenylephrine-[place] Butter 0.25-88.44 % [...] Iron-Vitamin C 65-125 MG Oral Tablet (Vitron C)Indications:Ir on deficiency anemia, unspecified iron deficiency anemia type Take 1 Tablet by mouth in the morning. 90 Tablet 1 07/21/2023 Active Ezetimibe 10 MG Oral Tablet (Zetia)Indicatio ns:Dyslipidemia, goal to be determined TAKE 1 TABLET BY MOUTH DAILY 90 Tablet 3 09/04/2023 Active Clopidogrel Bisulfate 75 MG Oral Tablet (pLAVix)Indicati ons:HTN, goal below 140/90 TAKE 1 TABLET BY MOUTH DAILY 90 Tablet 3 09/04/2023 Active DULoxetine HCl 60 MG Oral Capsule Delayed Release Particles (Cymbalta)Indica [...] 24 Hour (Imdur)Indicatio ns:Coronary artery disease involving [place] coronary artery of guid[place] heart without angina pectoris TAKE 1 TABLET BY MOUTH EVERY DAY IN THE MORNING 90 Tablet 1 11/13/2023 Active Enalapril Maleate 10 MG Oral Tablet (Vasotec) TAKE 2 TABLETS BY MOUTH EVERY DAY 180 Tablet 1 09/01/2023 Discontinued documented as of this encounter (statuses as of 12/16/2023) Active Problems Problem Noted Date Diagnosed Date Colonic mass 11/25/2023 Iron deficiency anemia 08/12/2023 Encounter for antineoplastic chemotherapy 2022 Malignant neoplasm of left b reast in female, estrogen receptor positive 06/28/2022 Postherpetic neuralgia 06/28/2022 Hiatal hernia 08/07/2021 Schatzki's ring 08/07/2021 S/P angioplasty with stent 11/15/2020 Coronary artery disease invo lving guidiville heart without angina pectoris 11/15/2020 Cardiac murmur [...] as of this encounter (statuses as of 12/16/2023) Resolved Problems Problem Noted Date Diagnosed Date [...] as of this encounter (statuses as of 12/16/2023) Immunizations Name Administration Dates Next Due COVID-19 mRNA, LNP-s, No Pre serve, 2-Dose Series ([employer]) 08/11/2020,07/21/2020 COVID-19, LNP-s, No Preserve , Dusty-sucrose, Ages 12+ ([employer]) 02/05/2022,08/07/2021 COVID-19, MRNA-LNP, 23-24, P F, 30 MCG/0.3 mL, 12 YRS AND ABOVE, IM ([employer]) 05/13/2023 Covid-19, Mrna, Lnp-s, Pf, B ivalent, 30 Mcg, IM, 12 yrs and above ([employer]) 06/11/2022 Pneumococcal Conjugate Vacc, 13 Valent (Prevnar) [...] Sign Reading Time Taken Comments Blood Pressure 104/48 12/05/2023 11:01 AM EDT Pulse 77 12/05/2023 11:01 AM EDT Temperature 36.6 C (97.9 F) 12/05/2023 11:01 AM E DT Respiratory Rate - - Oxygen Saturation 90% 12/05/2023 11:01 AM EDT Inhaled Oxygen Concentration - - Weight 69.2 kg (152 lb 8 oz) 12/05/2023 11:01 AM EDT Height - - Body Mass Index 23.88 11/25/2023 11:17 AM EDT documented in this encounter Progress Notes * Abena Xiong CRNP - 12/05/2023 11:07 AM EDT Images from the original note were not included. Hematology/Oncology Outpatient Clinic note [address] [place] [address] Name: Afua Rosenbaum Date: 12/05/2023 CHIEF COMPLAINT: Afua Rosenbaum is a 83 year old female patient of Dr. Rashid Tabitha here today for f/u visit today. From Patient chart confirmed with patient. HEMATOLOGY/ONCOLOGY DIAGNOSIS: Left breast cancer, ER low positive with 5% nuclear positivity and ID/HER2 Ludivina negative. Cancer Staging stage pT2 pN0 disease. 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 The CT scan revealed 1.7 cm enhancing mass in the left breast. Subsequently she [...] level (1%-10%) of ER expression by IHC, ID/HER2 Ludivina were negative. Final Diagnosis A. Breast, Left, 2-3:00 3cm FN, core biopsy: Invasive ductal carcinoma, grade 3 with necrosis. Estrogen Receptor (ER) protein expression is LOW POSITIVE 5% nuclear positivity 1+ average intensity score (range 0 to 3+) COMMENT: The cancer in this sample has a low level (1%-10%) of ER expression by IHC Progesterone Receptor (ID) protein expression is NEGATIVE HER2 oncoprotein expression [...] Category pT2 Regional Lymph Nodes Modifier (sn): [place] node(s) evaluated. pN Category pN0 Size (Extent) of DCIS Estimated size (extent) of DCIS is at least (Millimeters): 80 mm Architectural Patterns [place] Solid Nuclear Grade Grade III (high) Necrosis Present, central (expansive "comedo" necrosis) Clinically she is doing well without any new symptoms of complain. Oncotype DX score is 58. ER/ID also negative on DCIS component of the tumor. ER/ID This addendum is being issued to report the results of ER/ID testing on the DCIS component, per request of Dr. Lu. Estrogen Receptor (ER) protein expression is NEGATIVE <1% nuclear positivity COMMENT: Assay internal and external control immunoreactivity is appropriate. Progesterone Receptor (ID) protein expression is NEGATIVE <1% nuclear positivity Interval History: Colonoscopy 11/25/23: Impression: - Hemorrhoids found on perianal exam. - Internal hemorrhoids. - Moderate diverticulosis in the sigmoid colon and in the descending colon. - Likely malignant partially obstructing tumor in the cecum. Biopsied. Tattooed. - Likely malignant partially obstructing tumor at the hepatic flexure. Biopsied. Tattooed. - One 5 mm polyp in the descending colon, removed with a cold snare. Resected and retrieved. Recommendation: - The patient will be observed post-procedure, until all discharge criteria are met. - Advance diet as tolerated today. - Await pathology results. - Perform CT scan (computed tomography) of the abdomen with contrast at appointment to be scheduled. - Refer to a surgeon at appointment to be scheduled. Pathology results A. Duodenum, random, biopsy: Duodenal mucosa with no significant pathologic abnormalities B. Stomach, random, biopsy: Oxyntic type mucosa with no significant pathologic abnormalities C. Cecum, mass, biopsy: Invasive adenocarcinoma, moderately differentiated. See Comment D. Hepatic flexure, mass, biopsy: Invasive adenocarcinoma, well to moderately differentiated. See comment E. Colon, descending, polyp, polypectomy: Two fragments of tubular adenoma Separate fragments of adenocarcinoma, likely contamination/carryover HISTORY OF PRESENT ILLNESS: Afua Rosenbaum is a 83 year old female with a history as outlined above. Currently here for f/u visit today. Patient not feeling much improved yet since receiving iron infusions. Has chronic issueswith lower back and leg pain. Lower extremities feels weak. Ambulates with cane. Does report SOB with exertion such as walking to her mailbox and back. Denies melena or hematochezia or other forms ofabnormal bleeding. Does have hemorrhoids but these do not bleed often. Denies changes in bowel habits. Has lost a little weight. Past Medical History: Diagnosis Date Breast cancer (HCC) 06/2022 left breast Chronic ischemic heart disease 2001,2002 with 2 stents Depressive disorder, not elsewhere classified Dyslipidemia, goal to be determined HTN, goal below 140/90 Impaired glucose tolerance Other constipation Solitary cyst of breast Breast Cyst Past Surgical History: Procedure Laterality Date BX LYMPH NODE DEEP AXIL Left 08/14/2022 BIOPSY LYMPH NODE DEEP AXILLARY OPEN performed by Yasmine Austin MD at OR [facility] COLONOSCOPY 07/17/2008 patient states she had a polyp removed and internal hemorrhoids COLONOSCOPY, DIAGNOSTIC (RECTUM) 07/11/2015 hyperplastic polyp, diverticulosis/[facility] COLONOSCOPY, DIAGNOSTIC (RECTUM) 11/25/2023 COLONOSCOPY FLEXIBLE PROXIMAL DIAGNOSTIC performed by Nitin Austin DO at ENDOSCOPY [facility] EGD, FLEXIBLE, DIAGNOSTIC 07/11/2015 reflux esophagitis, Schatzki ring, HH/[facility] EGD, FLEXIBLE, DIAGNOSTIC 11/25/2023 ESOPHAGOGASTRODUODENOSCOPY (EGD), FLEXIBLE, TRANSORAL, DIAGNOSTIC performed by Nitin Austin DOat ENDOSCOPY [facility] IDENTIFY SENTINEL NODE, RADIOACTIVE TRACER Left 08/14/2022 INJECTION PROCEDURE FOR IDENTIFICATION SENTINEL NODE performed by Yasmine Austin MD at OR [facility] INSERTION OF LENS PROSTHESIS 05/03/2015 right INSERTION OF LENS PROSTHESIS 04/19/2015 left MASTECTOMY, SIMPLE, COMPLETE Left 08/14/2022 MASTECTOMY SIMPLE COMPLETE performed by Yasmine Austin MD at OR [facility] MISCELLANEOUS ORDER ([facility] ONLY) May 2002 and December 2002 heart stents TOTAL ABD HYSTERECTOMY W/WO REMOVAL OF TUBE(S) US GUIDED BREAST BIOPSY BILATERAL around 2010 benign US GUIDED BREAST BIOPSY LEFT Left 06/20/2022 Invasive ductal carcinoma, grade 3 with necrosis VENOUS PTCA-TECH ONLY Social History Socioeconomic History Marital status: Spouse name: Not on file Number of children: Not on file Years of education: Not on file Highest education level: Not on file Occupational History Not on file Tobacco Use Smoking status: Former Current packs/day: 0.50 Average packs/day: 0.5 packs/day for 40.0 years (20.0 ttl pk-yrs) Types: Cigarettes Smokeless tobacco: Never Vaping Use Vaping status: Never Used Substance and Sexual Activity Alcohol use: Yes Comment: a glass or wine on holidays Drug use: No Sexual activity: Not on file Other Topics Concern Not on file Social History Narrative Not on file Social Determinants of Health Financial Resource Strain: Low Risk (08/18/2023) Financial Resource Strain Do you have any trouble paying for your medications, or do you think you might in the future? (Adult - for ages 18 years and over): No Does your family have trouble paying for medicine? (Household - for ages 0-17 years): Not on file Food Insecurity: No Food Insecurity (08/18/2023) Food Insecurity Do you need food for this week? (Adult - for ages 18 years and over): No Are you able to get enough food for your family? (Household - for ages 0-17 years): Not on file Does your family need food this week? (Household - for ages 0-17 years): Not on file Do you always have enough food for your family? (Household - for ages 0-17 years): Not on file Transportation Needs: No Transportation Needs (08/18/2023) Transportation Needs Do you have trouble getting a ride to medical visits or work? (Adult - for ages 18 years and over):Never True Does your family have a hard time getting a ride to doctors visits? (Household - for ages 0-17 years): Not on file Has lack of transportation kept you from medical appointments, meetings, work, or from getting things needed for daily living? Check all that apply. (Adult - for ages 18 years and over): Not on file Do you (or your family) have trouble finding or paying for a ride (transportation)? (Household - for ages 0-17 years): Not on file Social Connections: Socially Integrated (08/18/2023) Social Connections How often do you feel lonely or isolated from those around you? (Adult - for ages 18 years and over): Never Housing Stability: Low Risk (08/18/2023) Housing Stability Do you currently live in a half-way or have no steady place to sleep at night? (Adult - for ages 18 years and over): No Do you think you are at risk of becoming homeless? (Adult - for ages 18 years and over): No Does your family worry about paying for your home or becoming homeless? (Household - for ages 0-17 years): Not on file Are you homeless or worried that you might be in the future? (Adult - for ages 18 years and over): Not on file Are you (or your family) homeless or worried that you might be in the future? (Household - for ages0-17 years): Not on file Review of patient's allergies indicates: Allergen Reactions Adhesive Tape Latex Other reaction(s): rash/itchy Current Outpatient Medications Medication Sig Dispense Refill CENTRUM SILVER PO TABS one a day 0 Polyethylene Glycol 3350 17 GM/SCOOP Oral Powder Take 17 g by mouth daily as needed for Constipation. cyclobenzaprine (FLEXERIL) 10 MG Tablet Take 1 Tab by mouth 3 times a day as needed for Muscle spasms. (Patient not taking: Reported on 09/24/2023) 30 Tab 1 VENTOLIN HFA 108 (90 Base) MCG/ACT inhaler INHALE 2 PUFFS BY MOUTH EVERY 4 HOURS NEEDED FOR COUGH, SHORTNESS OF BREATH OR WHEEZING. 36 g 1 Acetaminophen 325 MG Oral Tablet Take 2 Tablets by mouth every 6 hours as needed for Pain. docusate sodium (COLACE) 100 MG Capsule Take 1 Capsule by mouth every night at bedtime. Phenylephrine-[place] Butter 0.25-88.44 % Rectal Suppository Administer into the rectum as needed forHemorrhoids. Nitroglycerin 0.4 MG Sublingual Tablet Sublingual (Nitrostat) Place 1 Tablet under the tongue as needed. (Patient not taking: Reported on 11/18/2023) Rosuvastatin Calcium 20 MG Oral Tablet (Crestor) TAKE 1 TABLET BY MOUTH DAILY (Patient taking differently: Take 1 Tablet by mouth in the morning. Takes at night .) 90 Tablet 3 Iron-Vitamin C 65-125 MG Oral Tablet (Vitron C) Take 1 Tablet by mouth in the morning. 90 Tablet 1 Enalapril Maleate 10 MG Oral Tablet (Vasotec) TAKE 2 TABLETS BY MOUTH EVERY DAY 180 Tablet 1 Ezetimibe 10 MG Oral Tablet (Zetia) TAKE 1 TABLET BY MOUTH DAILY 90 Tablet 3 Clopidogrel Bisulfate 75 MG Oral Tablet (pLAVix) TAKE 1 TABLET BY MOUTH DAILY 90 Tablet 3 DULoxetine HCl 60 MG Oral Capsule Delayed Release Particles (Cymbalta) Take 1 Capsule by mouth in the morning. 90 Capsule 1 Metoprolol Tartrate 25 MG Oral Tablet (Lopressor) Take 1 Tablet by mouth in the morning and 1 Tablet before bedtime. 60 Tablet 5 Pantoprazole Sodium 20 MG Oral Tablet Delayed Release (Protonix) Take 1 Tablet by mouth in the morning. 30 minutes before the first meal of the day. Do not crush, split or chew the tablet. 90 Tablet 3 Isosorbide Mononitrate ER 30 MG Oral Tablet Extended Release 24 Hour (Imdur) TAKE 1 TABLET BY MOUTHEVERY DAY IN THE MORNING 90 Tablet 1 No current facility-administered medications for this visit. REVIEW OF SYSTEMS: See HPI - otherwise negative OBJECTIVE: Filed Vitals: 12/05/23 1101 BP: 104/48 Pulse: 77 Temp: 36.6 C (97.9 F) TempSrc: Tympanic SpO2: 90% Weight: 69.2 kg (152 lb 8 oz) Wt Readings from Last 5 Encounters: 12/05/23 69.2 kg (152 lb 8 oz) 11/25/23 72.6 kg (160 lb) 10/13/23 71.5 kg (157 lb 11.2 oz) 08/12/23 73.5 kg (162 lb) 07/24/23 73.7 kg (162 lb 8 oz) PHYSICAL EXAM: ECOG: Performance Status 1 = 80-90% Symptoms but nearly ambulatory General Appearance: No acute distress Lymph Nodes: Normal - No palpable lymph nodes in the neck, supraclavicular or axillary areas Lungs/Thorax: Normal - Clear to auscultation Heart: Normal - Regular rate and rhythm, normal S1, S2, no appreciable murmurs Pulses/Extremities: Normal - 2+ throughout and symmetrical, no edema Neurologic: Normal - Grossly intact LABS: Results for orders placed or performed in visit on 12/01/23 FERRITIN Result Value Ref Range Ferritin 350 (H) 13 - 150 ng/mL IRON SCREEN, INCLUDING TIBC Result Value Ref Range Iron 35 33 - 151 ug/dL Iron Binding Capacity 211 (L) 250 - 425 ug/dL Transferrin Saturation Percent 17 15 - 55 % CEA Result Value Ref Range CEA 2.2 <=5.2 ng/mL CBC Result Value Ref Range WBC 6.17 4.00 - 10.80 K/uL RBC 3.51 3.85 - 5.15 M/uL HGB 9.4 (L) 12.0 - 15.3 g/dL HCT 31.4 (L) 36.0 - 45.2 % MCV 89.5 81.5 - 97.5 fL MCH 26.8 27.0 - 34.0 pg MCHC 29.9 32.0 - 36.0 g/dL RDW 16.4 11.5 - 15.5 % PLT 298 140 - 400 K/uL MPV 9.3 6.6 - 11.1 fL nRBCs 0 <=0 /100 WBCs DIFFERENTIAL, AUTOMATED Result Value Ref Range WBC 6.17 4.00 - 10.80 K/uL Neutrophils % 72.3 40.0 - 75.0 % Lymphocytes % 11.8 (L) 18.0 - 42.0 % Monocytes % 10.4 1.0 - 11.0 % Eosinophils % 4.1 0.0 - 6.0 % Basophils % 0.8 0.0 - 2.0 % Immature Granulocytes % 0.6 0.0 - 2.0 % Absolute Neutrophils 4.46 1.80 - 7.70 K/uL Absolute Lymphocytes 0.73 (L) 1.00 - 4.80 K/ul Absolute Monocytes 0.64 0.00 - 1.10 K/uL Absolute Eosinophils 0.25 0.00 - 0.70 K/uL Absolute Basophils 0.05 0.00 - 0.20 K/uL Absolute Immature Granulocytes 0.04 0.00 - 0.20 K/uL IMPRESSION/PLAN: Colon adenocarcinoma Iron deficiency anemia Patient had colonoscopy completed 11/25/23 for further evaluation of iron deficiency anemia. Unfortunately it revealed a right sided colon mass 1 in the cecum and 1 in the hepatic flexure. Pathology consistent with adenocarcinoma. This was reviewed with patient who verbalized understanding. Patient was referred to general surgery, apt scheduled 12/11/23. CT A/P also ordered. Will assist with scheduling. Referral placed today for patient to return with physician as a new Oncology patient. Patient completed IV Venofer 300 mg x 4 doses 10/29/23 Lab results reviewed with patient: Hgb has improved slightly to 9.4 Iron studies improved with ferritin 350 and TSAT 17% CEA is not elevated D/T adverse GI side effects ok to discontinue oral iron supplement or decrease frequency to every other day All questions answered to patient's satisfaction History of left breast cancer Under observation since November 2022 Mammogram annually - next due May 2024 Right breast MRI next due July 2024 RTC with physician as new oncology patient MING Cisneros documented in this encounter Nursing Notes * Hansa Marcial, MED ASSIST - 12/05/2023 11:02 AM EDT Patient identifed by name and birthdate Do you have any concerns about pain management for today's visit? Yes. Patient instructed to discuss pain concerns with provider during the visit today Living Will or Advance Directive for Health Care as noted on the problem list. [facility] is a way you can talk to your provider on line through e-mail. Would you like to sign up? I can activate it for you? NO Filed Vitals: 12/05/23 1101 BP: 104/48 Pulse: 77 Temp: 36.6 C (97.9 F) TempSrc: Tympanic SpO2: 90% Weight: 69.2 kg (152 lb 8 oz) Patient was instructed to not get [...] Office Visit Non [facility], Operating Room, [facility] [address] [facility] [place] [address] Pedro Peace MD [address] [place] [address] 12/31/2023 1:00 PM EDT Office Visit Hematology/Oncology [facility] [address] [facility] [place] [phone] Gay Lu MD [address] [facility] [place] [address] 01/02/2024 9:30 AM EDT Office Visit General Surgery, [facility] [address] [place] [address] Pedro Peace MD [address] [place] [id number] 02/10/2024 1:00 PM EDT Office Visit Family Medicine [address] [place] [phone] Kahlil Mooney CRNP [address] [place] [address] [place] [address] 04/05/2024 1:20 PM EDT Office Visit Dermatology [address] [place] [address] Melanie Frank PA-C [address] [place] [address] [place] [address] 07/23/2024 3:30 PM EST Office Visit Nephrology [address] [place] [address] Valery Urena PA-C [address] [place] [address] 08/17/2024 1:40 PM EST Office Visit Family Medicine [address] [place] [phone] Jasson Denney MD [address] [place] [address] [place] [address] Scheduled Procedures Name Priority Associated Diagnoses Date/Ti me COLONOSCOPY FLEXIBLE PROXIMAL DIAGNOSTIC Recall Colon cancer (HCC) Scheduled Referrals Name Type Priority Associated Diagnoses Orde r Schedule HEMATOLOGY/ONCOLOGY REFERRAL OP Referral Within 10 days (routine) Malignant neoplasm of hepatic flexure (HCC) Ordered: 12/05/2023 Health Maintenance Due Date Last Done Comments Alpha-1 Antitrypsin 1958 DTaP,Tdap,and Td Vaccines (1 - Tdap) 1959 Zoster Vaccines (1 of 2) 1990 *COPD SEVERITY VERIFIED BY PFT 01/02/2018 Depression Monitoring 08/07/2022 08/07/2021 COVID-19 Vaccine ( season) 2023 05/13/2023, 06/11/2022, 02/05/2022, Additional history exists Influenza Vaccine (FLU shot) (#1) 2024 03/20/2023, 04/04/2022, 03/19/2021, Additional history exists HbA1c 03/20/2024 03/20/2023, 10/2021, 11/01/2020, Additional history exists GFR 03/31/2024 09/30/2023, 06/2023, 06/30/2023, Additional history exists CKD PHOS USE SMARTSET 69105 09/29/202409/14, 09/01/2023, 07/25/2022, Additional history exists Albumin/Creatinine Ratio 09/30/2024 024, 06/30/2023, 07/25/2022, Additional history exists O2 ASSESSMENT COMPLETED IN PAST YEAR FOR COPD 11/24/2024 11/25/2023 CKD HGB USE SMARTSET 69687 11/30/202411/30, 12/01/2023, 10/13/2023, Additional history exists DXA [...] this encounter Medical Devices Implanted Type Area French Teacher Device Identifier Shelf Expiration Date Model / Serial / Lot [employer]ning Excluder Aaa Endoprothesis System-07/07/2019 Implanted:07/07/19 20 (Quantity not on file) Graft Description:Multiple implant s from system on same day [id number] Cordis Bx Velocity Cardiac Stent-06/02/2002 Implanted:06/02/20 02 (Quantity not on file) Stent CORDIS LEXA BX VELOCITY [id number] / / [id number] Cordis Bx Velocity Cardiac Stent-01/03/2003 Implanted:01/04/20 03 (Quantity not on file) Stent CORDIS LEXA VELOCITY [id number] / / [id number] documented as of this encounter Visit Diagnoses Diagnosis Malignant neoplasm of hepatic flexure (HCC)- Primary Malignant neoplasm of hepatic flexure Iron deficiency anemia, unspecified iron deficiency anemia type History of breast cancer Personal history of malignant neoplasm of breast documented in this encounter Advance Directives * [...] Name Relationship Healthcare Agent Relationship Communication Gus Rsoenbaum Jr. Adult Child Health Care R epresentative (appointed verbally by patient or by statute hierarchy) Care Teams Tipple Mechanic Relationship Specialty Start Date End Date Jasson Denney MD [address] [place] [address] [place] [id number] PCP - General Family Medicine 03/22/16 documented as of this encounter
--- OUTSIDE RECORDS SUMMARY | 2023-12-22 05:47 | External Medical Summary | Summary of Care ---
Author Name Unknown Organization [facility] Address [address] [facility] [address] Phone [phone] Care Team Providers Care Seasoner Name Role Phone Jasson Denney MD Primary Care Provide r Reason for Visit * Reason Comments NEW PATIENT Pt had a colonoscopy on 11/24 and they discovered a colon mass- 1 in cecum and 1 in hepatic flexure. * Evaluate & Treat - Unlimited Visits (Within 10 days (routine)) - Authorized Specialty Diagnoses / Procedures Referred By Radha romero Referred To Contact Colon and Rectal Surgery / General Surgery Diagnoses Colonic mass Nitin Austin DO [address] [place] [address] Referral ID Status Reason Start Date Expiration Date Visits Requested Visits Authorized [id number] Authorized Specialty Services Required 11/25/[phone] Encounter Details Date Type Department Care Team (Late st Contact Info) Description 12/11/2023 9:00 AM EDT Office Visit General Surgery, [facility] [address] [place] [address] Pedro Peace MD [address] [place] [address] Pre-op testing*; Overlapping malignant neoplasm of colon (HCC) Allergies Active Allergy Reactions Criticality Noted Date Comments Adhesive Tape 04/11/2006 Latex 06/06/2022 Other reaction(s): rash/itchy documented as of this encounter (statuses as of 12/11/2023) Medications Medication Sig Dispensed Refills Start Date [...] mouth every night at bedtime. 07/12/2019 Active Phenylephrine-[place] Butter 0.25-88.44 % Rectal Suppository Administer into [...] 24 Hour (Imdur)Indications: Coronary artery disease involving [place] coronary artery of [place] heart without angina pectoris TAKE 1 TABLET [...] as of this encounter (statuses as of 12/11/2023) Active Problems Problem Noted Date Diagnosed Date Colonic mass 11/25/2023 Iron deficiency anemia 08/12/2023 Encounter for antineoplastic chemotherapy 2022 Malignant neoplasm of left b reast in female, estrogen receptor positive 06/28/2022 Postherpetic neuralgia 06/28/2022 Hiatal hernia 08/07/2021 Schatzki's ring 08/07/2021 S/P angioplasty with stent 11/15/2020 Coronary artery disease invo lving [place] heart without angina pectoris 11/15/2020 Cardiac murmur [...] as of this encounter (statuses as of 12/11/2023) Resolved Problems Problem Noted Date Diagnosed Date [...] as of this encounter (statuses as of 12/11/2023) Immunizations Name Administration Dates Next Due COVID-19 mRNA, LNP-s, No Pre serve, 2-Dose Series ([employer]) 08/11/2020,07/21/2020 COVID-19, LNP-s, No Preserve , Dusty-sucrose, Ages 12+ ([employer]) 02/05/2022,08/07/2021 COVID-19, MRNA-LNP, 23-24, P F, 30 MCG/0.3 mL, 12 YRS AND ABOVE, IM ([facility]) 05/13/2023 Covid-19, Mrna, Lnp-s, Pf, B ivalent, 30 Mcg, IM, 12 yrs and above ([employer]) 06/11/2022 Pneumococcal Conjugate Vacc, 13 Valent (Prevnar) [...] Sign Reading Time Taken Comments Blood Pressure 94/45 12/11/2023 8:49 AM EDT Pulse 73 12/11/2023 8:49 AM EDT Temperature 36.5 C (97.7 F) 12/11/2023 8:49 AM ED T Respiratory Rate - - Oxygen Saturation - - Inhaled Oxygen Concentration - - Weight 68.5 kg (151 lb) 12/11/2023 8:49 AM EDT Height - - Body Mass Index 23.65 11/25/2023 11:17 AM EDT documented in this encounter Progress Notes * Pedro Peace MD - 12/11/2023 11:31 AM EDT SUBJECTIVE: Afua Rosenbaum is a 83 year old female. Chief Complaint Patient presents with NEW PATIENT Pt had a colonoscopy on 11/24 and they discovered a colon mass- 1 in cecum and 1 in hepatic flexure. HPI: 83-year-old woman presents after colonoscopy. She was having abdominal pain and hemorrhoidal bleeding. She was also having anemia. Colonoscopy demonstrated 2 separate sites of colon cancer 1 in the cecum and 1 at the hepatic flexure. These were circumferentially nearly obstructing masses. Theywere biopsied and noted to be adenocarcinoma. She is CT pending today. She does endorse some abdominal pain. She denies fevers or chills. She is having normal bowel movements. She denies nausea or vomiting. She has a history of breast cancer. 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 She has an extensive cardiac history. She has had a hysterectomy. Past Medical History: Diagnosis Date Breast cancer [...] COLONOSCOPY, DIAGNOSTIC (RECTUM) 07/11/2015 hyperplastic polyp, diverticulosis/[facility] COLONOSCOPY, DIAGNOSTIC (RECTUM) 11/25/2023 COLONOSCOPY FLEXIBLE PROXIMAL DIAGNOSTIC performed by Nitin Austin DO at ENDOSCOPY [facility] EGD, FLEXIBLE, DIAGNOSTIC 07/11/2015 reflux esophagitis, Schatzki ring, HH/[facility] EGD, FLEXIBLE, DIAGNOSTIC 11/25/2023 ESOPHAGOGASTRODUODENOSCOPY (EGD), FLEXIBLE, TRANSORAL, DIAGNOSTIC performed by Nitin Austin DOat ENDOSCOPY [facility] IDENTIFY SENTINEL NODE, RADIOACTIVE TRACER Left 08/14/2022 INJECTION PROCEDURE FOR IDENTIFICATION SENTINEL NODE performed by Yasmine Austin MD at OR [facility] INSERTION OF LENS PROSTHESIS 05/03/2015 right INSERTION OF LENS PROSTHESIS 04/19/2015 left MASTECTOMY, SIMPLE, COMPLETE Left 08/14/2022 MASTECTOMY SIMPLE COMPLETE performed by Yasmine Austin MD at [facility] MISCELLANEOUS ORDER ([facility] ONLY) May 2002 and December 2002 heart stents TOTAL ABD HYSTERECTOMY W/WO REMOVAL OF TUBE(S) US GUIDED BREAST BIOPSY BILATERAL around 2010 benign US GUIDED BREAST BIOPSY LEFT Left 06/20/2022 Invasive ductal carcinoma, grade 3 with necrosis VENOUS PTCA-TECH ONLY Current Outpatient Medications Medication Sig Dispense Refill CENTRUM SILVER PO TABS one a day 0 Polyethylene Glycol 3350 17 GM/SCOOP Oral Powder Take 17 g by mouth daily as needed for Constipation. VENTOLIN HFA 108 (90 Base) MCG/ACT inhaler INHALE 2 PUFFS BY MOUTH EVERY 4 HOURS NEEDED FOR COUGH, SHORTNESS OF BREATH OR WHEEZING. 36 g 1 Acetaminophen 325 MG Oral Tablet Take 2 Tablets by mouth every 6 hours as needed for Pain. docusate sodium (COLACE) 100 MG Capsule Take 1 Capsule by mouth every night at bedtime. Phenylephrine-[place] Butter 0.25-88.44 % Rectal Suppository Administer into the rectum as needed forHemorrhoids. Rosuvastatin Calcium 20 MG Oral Tablet (Crestor) TAKE 1 TABLET BY MOUTH DAILY (Patient taking differently: Take 1 Tablet by mouth in the morning. Takes at night .) 90 Tablet 3 Iron-Vitamin C 65-125 MG Oral Tablet (Vitron C) Take 1 Tablet by mouth in the morning. 90 Tablet 1 Ezetimibe 10 MG Oral [...] DAY IN THE MORNING 90 Tablet 1 Enalapril Maleate 10 MG Oral Tablet (Vasotec) TAKE 2 TABLETS BY MOUTH EVERY DAY 180 Tablet 1 cyclobenzaprine (FLEXERIL) 10 MG Tablet Take 1 Tab by mouth 3 times a day as needed for Muscle spasms. (Patient not taking: Reported on 09/24/2023) 30 Tab 1 Nitroglycerin 0.4 MG Sublingual Tablet Sublingual (Nitrostat) Place 1 Tablet under the tongue as needed. (Patient not taking: Reported on 11/18/2023) No current facility-administered medications for this visit. Review of patient's allergies indicates: Allergen Reactions Adhesive Tape Latex Other reaction(s): rash/itchy Social History: Social History Tobacco Use Smoking status: Former Current packs/day: 0.50 Average packs/day: 0.5 packs/day for 40.0 years (20.0 ttl pk-yrs) Types: Cigarettes Smokeless tobacco: Never Substance Use Topics Alcohol use: Yes Comment: a glass or wine on holidays Vaping/E-Cigarette Use Vaping/E-Cigarette Use Never User Vaping/E-Cigarette Substances Vaping/E-Cigarette Devices ROS As per HPI, otherwise negative OBJECTIVE: PHYSICAL EXAM: BP 94/45 | Pulse 73 | Temp 36.5 C (97.7 F) | Wt 68.5 kg (151 lb) | BMI 23.65 kg/m | BSA 1.8 m General: alert, healthy, and no distress Head: Normocephalic, No masses, lesions, tenderness or abnormalities Eye Exam: conjunctiva are pink and non-injected, sclera clear Neck: supple, no adenopathy, no bruits Heart: regular rate & rhythm, no murmur, and no gallops Lungs: chest symmetric with normal AP diameter, no chest deformities noted, lungs clear to auscultation Abdomen: abdomen soft, no masses or organomegaly, and tenderness to palpation lower abdomen Extremities: no edema, no skin discoloration, no clubbing, no cyanosis Skin: skin color, texture, turgor are normal, no rashes or significant lesions ASSESSMENT: Z01.818 Pre-op testing (primary encounter diagnosis) C18.8 Overlapping malignant neoplasm of colon (HCC) PLAN: 83-year-old woman presents with colon cancer of 2 sites the cecum and the hepatic flexure. Both of these have been tattooed endoscopically. She has a CT pending for metastatic disease. I had a long discussion with her concerning surgery for colon cancer. We discussed the need for an extended right h emicolectomy. I discussed laparoscopic, possible open extended right hemicolectomy, risks, benefits, postoperative course and restrictions. She has a prior history of endograft for a ruptured aortic aneurysm and has an extensive cardiac history. We will have her undergo cardiac clearance prior to surgery. All her questions were answered, and she has agreeable with the plan. We will schedule her at the hospital at the earliest convenience. Consent has been obtained. I spent a total of 40-54 minutes (exact time 45 mins) on the date of service in preparation, delivery, and documentation of the care provided to Afua Rosenbaum excluding any time spent in the performance of separately billed services. Pedro Peace MD 12/11/2023 * Justina Root LPN - 12/11/2023 9:50 AM EDT Patient identified by name and date of . Chief Complaint Patient presents with NEW PATIENT Pt had a colonoscopy on 11/24 and they discovered a colon mass- 1 in cecum and 1 in hepatic flexure. Patient scheduled at [facility] for dr peace with 12/22/2023 for a lap possible open extended right hemicolectomy . Date of Test12/22/2023 Medications reviewed. EKG obtained today Labs: not obtained, pt has a cbc on file from 12/01/2023 but does need a Cmp done Permit signed. Patient verbalizes understanding of pre- and post op instructions. Written instructions given for review at later date. Justina Root LPN 12/11/2023 documented in this encounter Nursing Notes * Justina Root LPN - 12/11/2023 8:49 AM EDT Patient identified by name and date of . Chief Complaint Patient presents with NEW PATIENT Pt had a colonoscopy on 11/24 and they discovered a colon mass- 1 in cecum and 1 in hepatic flexure. Pt stating that this was scheduled colonoscopy due to having her left breast removed due to cancer,they were trying to see if it has metastasized and trying to see why her iron was so low. Pt stating that she keeps losing weight - unintentionally. Denies night sweats fever or chills, presents heretoday with her son, deepak. Pt does also have back and occasional lower abdomen pain. documented in this encounter Plan of Treatment Upcoming Encounters Date Type Department Care Team (Late st Contact Info) Description 12/31/2023 1:00 PM EDT Office Visit Hematology/Oncology [facility] [address] [facility] [place] [place] [phone] Gay Lu MD [address] [facility] [place] [address] 01/02/2024 9:30 AM EDT Office Visit General Surgery, [facility] [address] [address] Pedro Peace MD [address] [place] [address] 02/10/2024 1:00 PM EDT Office Visit [place] Medicine [place] [phone] Kahlil Mooney CRNP [address] [place] [address] [place] [address] 04/05/2024 1:20 PM EDT Office Visit Dermatology [address] [place] [address] Melanie Frank PA-C [address] [place] [address] [place] [address] 07/23/2024 3:30 PM EST Office Visit Nephrology [address] [place] [address] Valery Urena PA-C [address] [place] [address] 08/17/2024 1:40 PM EST Office Visit Family Medicine [address] [place] [phone] Jasson Denney MD [address] [place] [address] [place] [id number] Scheduled Orders Name Type Priority Associated Diagnoses Orde r Schedule COMPREHENSIVE METABOLIC PANEL Lab Routine Pre-op testing Expected: 12/11/2023, Expires: 12/10/2024 Scheduled Procedures Name Priority Associated Diagnoses Date/Ti me COLONOSCOPY FLEXIBLE PROXIMAL DIAGNOSTIC Recall Colon cancer (HCC) Health Maintenance Due Date Last Done Comments Alpha-1 Antitrypsin 1958 DTaP,Tdap,and Td Vaccines (1 - Tdap) 1959 Zoster Vaccines (1 of 2) 1990 *COPD SEVERITY VERIFIED BY PFT 01/02/2018 Depression Monitoring 08/07/2022 08/07/2021 COVID-19 Vaccine ( season) 2023 05/13/2023, 06/11/2022, 02/05/2022, Additional history exists HbA1c 03/20/2024 03/20/2023, 10/2021, 11/01/2020, Additional history exists GFR 03/31/2024 09/30/2023, 06/2023, 06/30/2023, Additional history exists CKD PHOS USE SMARTSET 56962 09/29/202409/14, 09/01/2023, 07/25/2022, Additional history exists Albumin/Creatinine Ratio 09/30/2024 024, 06/30/2023, 07/25/2022, Additional history exists O2 ASSESSMENT COMPLETED IN PAST YEAR FOR COPD 11/24/2024 11/25/2023 CKD HGB USE SMARTSET 15437 11/30/202411/30, 12/01/2023, 10/13/2023, Additional history exists DXA [...] this encounter Medical Devices Implanted Type Area Parking Lot Signaler Device Identifier Shelf Expiration Date Model / Serial / Lot [place] Excluder [employer] System-07/07/2019 Implanted:07/07/19 20 (Quantity not on file) Graft Description:Multiple implant s from system on same day [id number] Cordis Bx Velocity Cardiac Stent-06/02/2002 Implanted:06/02/20 02 (Quantity not on file) Stent CORDIS LEXA BX VELOCITY [id number] / / [id number] Cordis Bx Velocity Cardiac Stent-01/03/2003 Implanted:01/04/20 03 (Quantity not on file) Stent CORDIS [place]EXA VELOCITY [id number] / / [id number] documented as of this encounter Results * EKG (12/11/2023 9:51 AM EDT) 12/11/2023 9:51 AM EDT Narrative Procedure Note Esteban Salcedo MD - 12/11/2023 9:51 AM EDT REASON FOR STUDY: pre op;pre op CONCLUSIONS: Sinus bradycardia Possible Left atrial enlargement Borderline ECG No significant change Prior study of June 06, 2023 Ventricular Rate: 58 Atrial Rate: 58 FL Interval: 170 QRS Duration: 84 QT/QTc: 452/443 ms P-R-T [place]: 60 : 42 : 30 degrees Pedro Peace MD EKG [facility] documented in this encounter Visit Diagnoses Diagnosis Pre-op testing- Primary Preoperative examination, unspecified Overlapping malignant neoplasm of colon (HCC) Pre-op testing Preoperative examination, unspecified documented in this encounter Advance Directives * [...] patient or by statute hierarchy) Care Teams Seasoner Relationship Specialty Start Date End Date Jasson Denney MD [address] [place] [address] [place] [address] PCP - General Family Medicine 03/22/16 documented as of this encounter"
--- OUTSIDE RECORDS SUMMARY | 2023-12-22 05:47 | External Medical Summary | Summary of Care ---
Author Name Unknown Organization [facility] Address [address] [facility] [address] Phone [phone] Care Team Providers Care Wax Pourer Name Role Phone Jasson Denney MD Primary [...] Nitin Austin DO [address] [place] [address] Referral ID Status Reason Start Date Expiration Date Visits Requested Visits Authorized [id number] Authorized Specialty Services Required 11/25/[phone] Encounter Details Date Type Department Care Team (Late st Contact Info) Description 12/11/2023 9:00 AM EDT Office Visit General Surgery, [facility] [address] [place] [address] Pedro Peace MD [address] [place] [address] Pre-op testing*; Overlapping malignant neoplasm of colon [...] mouth every night at bedtime. 07/12/2019 Active Phenylephrine-[place] Butter 0.25-88.44 % Rectal Suppository Administer into [...] 24 Hour (Imdur)Indications: Coronary artery disease involving [place] coronary artery of [place] heart without angina pectoris TAKE 1 TABLET [...] stent 11/15/2020 Coronary artery disease invo lving [place] heart without angina pectoris 11/15/2020 Cardiac murmur [...] mRNA, LNP-s, No Pre serve, 2-Dose Series ([employer]) 08/11/2020,07/21/2020 COVID-19, LNP-s, No Preserve , Dusty-sucrose, Ages 12+ ([employer]) 02/05/2022,08/07/2021 COVID-19, MRNA-LNP, 23-24, P F, 30 MCG/0.3 mL, 12 YRS AND ABOVE, IM ([facility]) 05/13/2023 Covid-19, Mrna, Lnp-s, Pf, B ivalent, 30 Mcg, IM, 12 yrs and above ([employer]) 06/11/2022 Pneumococcal Conjugate Vacc, 13 Valent (Prevnar) [...] performed by Yasmine Austin MD at OR [facility] COLONOSCOPY 07/17/2008 patient states she had a polyp removed and internal hemorrhoids COLONOSCOPY, DIAGNOSTIC (RECTUM) 07/11/2015 hyperplastic polyp, diverticulosis/[facility] COLONOSCOPY, DIAGNOSTIC (RECTUM) 11/25/2023 COLONOSCOPY FLEXIBLE PROXIMAL DIAGNOSTIC performed by Nitin Austin DO at ENDOSCOPY [facility] EGD, FLEXIBLE, DIAGNOSTIC 07/11/2015 reflux esophagitis, Schatzki ring, HH/[facility] EGD, FLEXIBLE, DIAGNOSTIC 11/25/2023 ESOPHAGOGASTRODUODENOSCOPY (EGD), FLEXIBLE, TRANSORAL, DIAGNOSTIC performed by Nitin Austin DOat ENDOSCOPY [facility] IDENTIFY SENTINEL NODE, RADIOACTIVE TRACER Left 08/14/2022 INJECTION PROCEDURE FOR IDENTIFICATION SENTINEL NODE performed by Yasmine Austin MD at OR [facility] INSERTION OF LENS PROSTHESIS 05/03/2015 right INSERTION OF LENS PROSTHESIS 04/19/2015 left MASTECTOMY, SIMPLE, COMPLETE Left 08/14/2022 MASTECTOMY SIMPLE COMPLETE performed by Yasmine Austin MD at [facility] MISCELLANEOUS ORDER ([facility] ONLY) May 2002 [...] Capsule by mouth every night at bedtime. Phenylephrine-[place] Butter 0.25-88.44 % Rectal Suppository Administer into [...] 1 in hepatic flexure. Patient scheduled at [facility] for dr peace with 12/22/2023 for a [...] 12/31/2023 1:00 PM EDT Office Visit Hematology/Oncology [facility] [address] [facility] [address] [place] [phone] Gay Lu MD [address] [facility] [place] [address] 01/02/2024 9:30 AM EDT Office Visit General Surgery, [facility] [address] [address] Pedro Peace MD [address] [place] [address] 02/10/2024 1:00 PM EDT Office Visit Family Medicine [place] [phone] Kahlil Mooney CRNP [address] [place] [address] [place] [address] 04/05/2024 1:20 PM EDT Office Visit Dermatology [address] [place] [address] Melanie Frank PA-C [address] [place] [address] [place] [address] 07/23/2024 3:30 PM EST Office Visit Nephrology [address] [place] [address] Valery Urena PA-C [address] [place] [address] 08/17/2024 1:40 PM EST Office Visit Family Medicine [address] [place] [phone] Jasson Denney MD [address] [place] [address] [place] [address] Scheduled Orders Name Type Priority Associated Diagnoses [...] Additional history exists CKD PHOS USE SMARTSET 47582 09/29/202409/14, 09/01/2023, 07/25/2022, Additional history exists Albumin/Creatinine Ratio 09/30/2024 024, 06/30/2023, 07/25/2022, Additional history exists O2 ASSESSMENT COMPLETED IN PAST YEAR FOR COPD 11/24/2024 11/25/2023 CKD HGB USE SMARTSET 37432 11/30/202411/30, 12/01/2023, 10/13/2023, Additional history exists DXA [...] this encounter Medical Devices Implanted Type Area Plastic Bubble Packer Device Identifier Shelf Expiration Date Model / Serial / Lot [place] Excluder [employer] Endoprothe[employer] System-07/07/2019 Implanted:07/07/19 20 (Quantity not on file) Graft Description:Multiple implant s from system on same day [id number] Cordis Bx Velocity Cardiac Stent-06/02/2002 Implanted:06/02/20 02 (Quantity not on file) Stent CORDIS [place] BX VELOCITY [id number] / / [id number] Cordis Bx Velocity Cardiac Stent-01/03/2003 Implanted:01/04/20 03 (Quantity not on file) Stent CORDIS [place] VELOCITY [id number] / / [id number] documented as of this encounter Results * EKG (12/11/2023 9:51 AM EDT) 12/11/2023 9:51 AM EDT Narrative Procedure Note Esteban Salcedo MD - 12/11/2023 9:51 AM EDT REASON FOR STUDY: pre op;pre op CONCLUSIONS: Sinus bradycardia Possible Left atrial enlargement Borderline ECG No significant change Prior study of June 06, 2023 Ventricular Rate: 58 Atrial Rate: 58 [place] Interval: 170 QRS Duration: 84 QT/QTc: 452/443 ms P-R-T [place]: 60 : 42 : 30 degrees Pedro Peace MD EKG [facility] documented in this encounter Visit [...] patient or by statute hierarchy) Care Teams Wax Pourer Relationship Specialty Start Date End Date Jasson Denney MD [address] [place] [address] [place] [address] PCP - General Family Medicine 03/22/16 documented as of this encounter"
--- OUTSIDE RECORDS SUMMARY | 2023-12-22 05:47 | External Medical Summary | Summary of Care ---
Author Name Unknown Organization [facility] Address [address] [facility] [place] [address] Phone [phone] Care Team Providers Care Lead Developer Name Role Phone Jasson Denney MD Primary Care Provide r Reason for Visit * Reason Comments Pre-op Clearance Hemicolectomy with Anthony Peace at [facility] December 21. SOB ongoing but no worse then prior. Denies chest pain, palpitations, dizziness and edema. Encounter Details Date Type Department Care Team (Latest Contact Info) Description 12/16/2023 3:00 PM EDT Office Visit Cardiology, [facility] [address] [place] [address] Inge Garcia PA-C [address] [place] [address] Preoperative cardiovascular examination*; S/P AAA repair; Coronary artery disease involving [place] coronary artery of [place] heart without angina pectoris; S/P angioplasty with stent; Chronic ischemic heart disease; Dyslipidemia, goal LDL below 70 Allergies Active Allergy Reactions Criticality Noted Date [...] mouth every night at bedtime. 07/12/2019 Active Phenylephrine-[place] Butter 0.25-88.44 % Rectal Suppository Administer into [...] 24 Hour (Imdur)Indications: Coronary artery disease involving [place] coronary artery of [place] heart without angina pectoris TAKE 1 TABLET [...] stent 11/15/2020 Coronary artery disease invo lving [place] heart without angina pectoris 11/15/2020 Cardiac murmur [...] mRNA, LNP-s, No Pre serve, 2-Dose Series ([employer]) 08/11/2020,07/21/2020 COVID-19, LNP-s, No Preserve , Dusty-sucrose, Ages 12+ ([employer]) 02/05/2022,08/07/2021 COVID-19, MRNA-LNP, 23-24, P F, 30 MCG/0.3 mL, 12 YRS AND ABOVE, IM ([facility]) 05/13/2023 Covid-19, Mrna, Lnp-s, Pf, B ivalent, 30 Mcg, IM, 12 yrs and above ([employer]) 06/11/2022 Pneumococcal Conjugate Vacc, 13 Valent (Prevnar) [...] Sign Reading Time Taken Comments Blood Pressure 128/64 12/16/2023 2:57 PM EDT Pulse 72 12/16/2023 2:57 PM EDT Temperature - - Respiratory Rate 16 12/16/2023 2:57 PM EDT Oxygen Saturation - - Inhaled Oxygen Concentration - - Weight 69.6 kg (153 lb 8 oz) 12/16/2023 2:57 PM EDT Height - - Body Mass Index 24.04 11/25/2023 11:17 AM EDT documented in this encounter Patient Instructions * Patient Instructions* Inge Garcia PA-C - 12/16/2023 3:20 PM EDT Take Aspirin 81 mg - 1 tablet daily while holding the plavix. After surgery, when acceptable to resume Plavix, stop the Aspirin 81 mg and restart Plavix (clopidogrel) 75 mg - 1 tablet daily documented in this encounter Progress Notes * Inge Garcia PA-C - 12/16/2023 3:01 PM EDT Cardiology Preop Evaluation and Risk Assessment: HPI: The patient is an 83-year-old female here today for preoperative cardiology evaluation and risk assessment prior to undergoing colon resection at [facility] due to recent diagnosis of colon mass scheduled with Dr. Peace on December 22, 2023 Last clinic evaluation approximately [address] Mejia. 1. coronary artery disease with prior LAD stents in 2001 and right coronary stents in 2002 2. Peripheral vascular disease with a ruptured abdominal aortic aneurysm June 2019 with an endovascular stent - followed yearly by [facility] vascular in [place]. 3. Cigarette smoker until June 2019 4. History of Breast cancer status post left mastectomy 5. Hypertension 6. Dyslipidemia 7. Dilated aortic root. Normal sized ascending aorta. Patient presents today feeling fairly well from a cardiac standpoint. She is anxious for her upcoming surgery. Her blood pressure has been well controlled. She notes chronic stable shortness of breath with exertion. No recent exertional chest pain. No need for sublingual nitro. She held Plavix for 7 days last week due to colonoscopy. She resumed therapy but needs to stop once again for her upcoming surgery. No palpitations, dizziness, syncope or near syncope. No orthopnea, PND, or increased lower extremity edema. No fever, chills, cough, hematochezia, melena, or hemoptysis. No prior issues with anesthesia or other surgical procedures in the past. Review of Systems: See HPI for pertinent positives. All others negative, other than those noted in HPI. Patient Active Problem List Diagnosis Chronic ischemic heart disease HTN, goal below 130/80 Dyslipidemia, goal LDL below 70 Hemorrhoids, external without complications Venous insufficiency History of tobacco use Hx of nonmelanoma skin cancer Postmenopausal atrophic vaginitis COPD, mild (HCC) Moderate episode of recurrent major depressive disorder (HCC) Prediabetes S/P AAA repair Hypertensive kidney disease with stage 3b chronic kidney disease Chronic kidney disease, stage 3b (HCC) S/P angioplasty with stent Coronary artery disease involving [place] heart without angina pectoris Cardiac murmur Hiatal hernia Schatzki's ring Malignant neoplasm of left breast in female, estrogen receptor positive (HCC) Postherpetic neuralgia Encounter for antineoplastic chemotherapy Iron deficiency anemia Colonic mass Past Surgical History: Procedure Laterality Date BX LYMPH NODE DEEP AXIL Left 08/14/2022 BIOPSY LYMPH NODE DEEP AXILLARY OPEN performed by Yasmine Austin MD at OR [facility] COLONOSCOPY 07/17/2008 patient states she had a polyp removed and internal hemorrhoids COLONOSCOPY, DIAGNOSTIC (RECTUM) 07/11/2015 hyperplastic polyp, diverticulosis/[facility] COLONOSCOPY, DIAGNOSTIC (RECTUM) 11/25/2023 COLONOSCOPY FLEXIBLE PROXIMAL DIAGNOSTIC performed by Nitin Austin DO at ENDOSCOPY [facility] EGD, FLEXIBLE, DIAGNOSTIC 07/11/2015 reflux esophagitis, Schatzki ring, HH/[facility] EGD, FLEXIBLE, DIAGNOSTIC 11/25/2023 ESOPHAGOGASTRODUODENOSCOPY (EGD), FLEXIBLE, TRANSORAL, DIAGNOSTIC performed by Nitin Austin DOat ENDOSCOPY [facility] IDENTIFY SENTINEL NODE, RADIOACTIVE TRACER Left 08/14/2022 INJECTION PROCEDURE FOR IDENTIFICATION SENTINEL NODE performed by Yasmine Austin MD at [facility] INSERTION OF LENS PROSTHESIS 05/03/2015 right INSERTION OF LENS PROSTHESIS 04/19/2015 left MASTECTOMY, SIMPLE, COMPLETE Left 08/14/2022 MASTECTOMY SIMPLE COMPLETE performed by Yasmine Austin MD at [facility] MISCELLANEOUS ORDER ([facility] ONLY) May 2002 and December 2002 heart stents TOTAL ABD HYSTERECTOMY W/WO REMOVAL OF TUBE(S) US GUIDED BREAST BIOPSY BILATERAL around 2010 benign US GUIDED BREAST BIOPSY LEFT Left 06/20/2022 Invasive ductal carcinoma, grade 3 with necrosis VENOUS PTCA-TECH ONLY Family History Problem Relation Name Age of Onset Other (Cancer liver) Grandfather (Maternal) Breast Cancer Niece Cancer Niece Social History Tobacco Use Smoking status: Former Current packs/day: 0.50 Average packs/day: 0.5 packs/day for 40.0 years (20.0 ttl pk-yrs) Types: Cigarettes Smokeless tobacco: Never Vaping Use Vaping status: Never Used Substance Use Topics Alcohol use: Yes Comment: [...] OF BREATH OR WHEEZING. 36 g 1 Phenylephrine-[place] Butter 0.25-88.44 % Rectal Suppository Administer into the rectum as needed forHemorrhoids. Nitroglycerin 0.4 MG Sublingual Tablet Sublingual (Nitrostat) Place 1 Tablet under the tongue as needed. (Patient not taking: Reported on 11/18/2023) Neomycin Sulfate 500 MG Oral Tablet (Neomycin Sulfate) Take 2 tabs at 4:00 p.m., 2 tabs at 5:00 p.m., and 2 tabs at 11:00 p.m. the day prior to surgery (Patient not taking: Reported on 12/16/2023) 6 Tablet 0 metroNIDAZOLE 500 MG Oral Tablet (Flagyl) Take 2 tabs at 4:00 p.m., 2 tabs at 5:00 p.m., and 2 tabsat 11:00 p.m. the day prior to surgery (Patient not taking: Reported on 12/16/2023) 6 Tablet 0 Ondansetron HCl 8 MG Oral Tablet (Zofran) Take 1 tab at 11:00 a.m. the day before surgery (Patient not taking: Reported on 12/16/2023) 5 Tablet 0 No current facility-administered medications for this visit. PHYSICAL EXAMINATION BP 128/64 | Pulse 72 | Resp 16 | Wt 69.6 kg (153 lb 8 oz) | BMI 24.04 kg/m | BSA 1.81 m Body mass index is 24.04 kg/m. General: no acute distress and stated [...] and no cyanosis Neuro: grossly normal exam Cardiac studies/labs: EKG reviewed from 12/11/23: Sinus bradycardia Possible Left atrial enlargement Borderline ECG No significant change Prior study of June 06, 2023 Nuclear stress test report reviewed from Feb 2021: Interpretation Summary Lexiscan nuclear cardiac stress test negative for ischemia. Gated SPECT images reveals normal myocardial thickening and wall motion. The LV ejection fraction is calculated at >70%. Echo report reviewed from October 2020 at [facility]: Normal LVEF at 60-65% No wall motion abnormalities Grade I diastolic dysfunction Aortic valve sclerosis without stenosis Mitral calcification. No mitral stenosis. mild MR Mild TR Moderate aortic root dilatation at 4.5 cm normal sized ascending aorta Assessment: 83 year old female ICD-10-CM 1. Preoperative cardiovascular examination Z01.810 2. S/P AAA repair Z98.890 Z86.79 3. Coronary artery disease involving [place] coronary artery of [place] heart without angina xioiuftiR20.10 4. S/P angioplasty with stent Z95.820 5. Chronic ischemic heart disease I25.9 6. Dyslipidemia, goal LDL below 70 E78.5 PLAN: Patient to undergo colon resection next week due to recently diagnosed colon mass, concerning for colon CA. She is currently stable from a cardiac perspective without recent decompensation. No CHF symptoms. No crescendo anginal symptoms. EKG with stable findings last week. Her cardiac status has been controlled and optimized for quite some time. She is on chronic plavix therapy and I'm uncertain if this is due to past remote coronary stents, or she has been maintained on plavix due to her endovascular repair AAA graft. Will need to clarify with vascular. Her recent scan 1 year ago was stable and she has f/u later this summer with vascular. Either way, plavix needs held prior to surgery, but I'm concerned with her being off all antiplatelet therapy for prolonged periods of time. Will hold plavix for 5 days prior to surgery and while holding plavix she must take ASA 81 mg daily. She is in agreement. After surgery, she may stop ASA and resume plavix. In the future, should she not need the plavix from a vascular standpoint, we may be able to transition her to only ASA 81 mg daily from cardiac and vascular standpoint. Otherwise, we discussed her cardiovascular risks in the perioperative period. Given her history, she is considered moderate risk for cardiac complications. She is understanding of these risks and surgery is necessary. Further cardiac testing is not warranted at this time. Instructions provided to the patient. The patient is to continue all current medications as listed above. No changes were made at today'is. Patient is being evaluated in the cardiology office for ongoing care/risk management for CAD; HTN; dyslipidemia; AAA repair. I spent a total of 45 minutes on the date of service in preparation, delivery, and documentation ofthe care provided to Afua Rosenbaum excluding any time spent in the performance of separately billed services. The patient agrees to the above plan and will call with additional questions or concerns. ER with all emergencies advised. Follow-up: Return in about 6 months (around 06/17/2024). | Check-out note: 6 month here with (previously cecilia patient) OR me in [place] Inge Garcia PA-C Department of Cardiology This chart was completed in part utilizing [employer] Speech Voice Recognition Software. Grammatical errors, random word insertions, prounoun errors, and incomplete sentences are an occasional consequence of this system due to software limitations, ambient noise, and hardware issues. Any formal questions or concerns about the content, text, or information contained within the body of this dictation should be directly addressed to the provider for clarification. documented in this encounter Nursing Notes * Jared Shanks LPN - 12/16/2023 2:55 PM EDT Patient identified by full name and date of Chief Complaint Patient presents with Pre-op Clearance Hemicolectomy with Dr. Peace at [facility] December 21. SOB ongoing but no worse then prior. Denies chest pain, palpitations, dizziness and edema. Examination Room: 6 Name: Afua Rosenbaum Date of : (1940). Reason for Visit: Pre-Op Interim Hospitalization(s): Denies Problems/Concerns: See chief complaint Chest Pain/SOB: See chief complaint [facility] Discussed: Not applicable [facility] is a way you can talk to your provider online through e-mail. Would you like to sign up? I can activate it for you? DECLINES Patient was instructed to not get up on the exam table until directed and assisted by their provider; patient is to remain seated in the chair/ wheelchair/ exam table for fall prevention and safety reasons. Patient is aware to have assistance to step down off exam table with personnel. Patient voiced full comprehension of instructions. 6 documented in this encounter Plan of Treatment Upcoming Encounters Date Type Department Care Team (Late st Contact Info) Description 12/22/2023 7:30 AM EDT Office Visit [facility], Operating Room, [facility] [address] [place] [address] Pedro Peace MD [address] [place] [address] 12/31/2023 1:00 PM EDT Office Visit Hematology/Oncology [facility] [address] [facility] [place] [phone] Gay Lu MD [address] [facility] [address] 01/02/2024 9:30 AM EDT Office Visit General Surgery, [facility] [address] [place] [address] Pedro Peace MD [address] [place] [address] 02/10/2024 1:00 PM EDT Office Visit Family Medicine [address] [phone] Kahlil Mooney CRNP [address] [place] [address] [place] [address] 04/05/2024 1:20 PM EDT Office Visit Dermatology [address] [place] [address] Melanie Frank PA-C [address] [place] [address] [place] [address] 06/17/2024 3:30 PM EST Office Visit Cardiology [address] [place] [address] Inge Garcia PA-C [address] [place] [address] 07/23/2024 3:30 PM EST Office Visit Nephrology [address] [place] [address] ZemaitisValery PA-C [address] [facility] [address] 08/17/2024 1:40 PM EST Office Visit Family Medicine [address] [place] [phone] Jasson Denney MD [address] [place] [address] [place] [address] Scheduled Procedures Name Priority Associated Diagnoses Date/Ti [...] Additional history exists CKD PHOS USE SMARTSET 58236 09/29/202409/14, 09/01/2023, 07/25/2022, Additional history exists Albumin/Creatinine Ratio 09/30/2024 024, 06/30/2023, 07/25/2022, Additional history exists O2 ASSESSMENT COMPLETED IN PAST YEAR FOR COPD 11/24/2024 11/25/2023 CKD HGB USE SMARTSET 20880 11/30/202411/30, 12/01/2023, 10/13/2023, Additional history exists DXA [...] this encounter Medical Devices Implanted Type Area Ship/Rec/Doc Control Device Identifier Shelf Expiration Date Model / Serial / Lot [place] Excluder Aaa Endoprothesis System-07/07/2019 Implanted:07/07/19 20 (Quantity not on file) Graft Description:Multiple implant s from system on same day [id number] Cordis Bx Velocity Cardiac Stent-06/02/2002 Implanted:06/02/20 02 (Quantity not on file) Stent [employer] LEXA BX VELOCITY [id number] / / [id number] Cordis Bx Velocity Cardiac Stent-01/03/2003 Implanted:01/04/20 03 (Quantity not on file) Stent CORDIS LEXA VELOCITY [id number] / / [id number] documented as of this encounter Visit Diagnoses Diagnosis Preoperative cardiovascular examination- Primary Pre-operative cardiovascular examination S/P AAA repair Other postprocedural status Coronary artery disease involving [place] coronary artery of [place] heart without angina pectoris S/P angioplasty with stent Postsurgical percutaneous transluminal coronary angioplasty status Chronic ischemic heart disease Chronic ischemic heart disease, unspecified Dyslipidemia, goal LDL below 70 Other and unspecified hyperlipidemia documented in this encounter Advance Directives * [...] patient or by statute hierarchy) Care Teams Lead Developer Relationship Specialty Start Date End Date Jasson Denney MD [address] [place] [address] [place] [address] PCP - General Family Medicine 03/22/16 documented as of this encounter"
--- OUTSIDE RECORDS SUMMARY | 2023-12-22 05:47 | External Medical Summary ---
Author Name Unknown Address Unknown Organization K01:[facility] [place] - [address] [place] [address] Laboratory Report Ordering Provider Test Date Status LIONEL GILL 12/01/2023 11:09:01 Final Observation Date Value Abnormality Reference (Units ) Status Ferritin 12/01/2023 11:09:01 350 Above high normal 13 -150 (ng/mL) Final Postmenopausal women have hi gher ferritin levels than pre-menopausal women. The above reference interval is based on pre-menopausal women. Performing Location LAB[facility]AT[facility] - [address] [place] [address]
--- OUTSIDE RECORDS SUMMARY | 2023-12-22 05:47 | External Medical Summary | Summary of Care ---
Author Name Unknown Organization [facility] Address [address] [facility] [place] [address] Phone [phone] Care Team Providers Care Hostess Host Name Role Phone Jasson Denney MD Primary Care Provide r Reason for Visit * Reason Onset Date Comments Test Results Biopsy 12/08/2023 Encounter Details Date Type Department Care Team (Late st Contact Info) Description 12/08/2023 Telephone Gastroenterology, [facility] [address] [place] [address] Nitin Austin DO [address] [place] [address] Test Results Biopsy Allergies Active Allergy Reactions Criticality Noted Date Comments Adhesive Tape 04/11/2006 Latex 06/06/2022 Other reaction(s): rash/itchy documented as of this encounter (statuses as of 12/09/2023) Medications Medication Sig Dispensed Refills Start Date [...] mouth every night at bedtime. 07/12/2019 Active Phenylephrine-[place] Butter 0.25-88.44 % Rectal Suppository Administer into [...] 24 Hour (Imdur)Indications: Coronary artery disease involving [place] coronary artery of [place] heart without angina pectoris TAKE 1 TABLET BY MOUTH EVERY DAY IN THE MORNING 90 Tablet 1 11/13/2023 Active documented as of this encounter (statuses as of 12/09/2023) Active Problems Problem Noted Date Diagnosed Date Colonic mass 11/25/2023 Iron deficiency anemia 08/12/2023 Encounter for antineoplastic chemotherapy 2022 Malignant neoplasm of left b reast in female, estrogen receptor positive 06/28/2022 Postherpetic neuralgia 06/28/2022 Hiatal hernia 08/07/2021 Schatzki's ring 08/07/2021 S/P angioplasty with stent 11/15/2020 Coronary artery disease invo lving [place] heart without angina pectoris 11/15/2020 Cardiac murmur [...] as of this encounter (statuses as of 12/09/2023) Resolved Problems Problem Noted Date Diagnosed Date [...] as of this encounter (statuses as of 12/09/2023) Immunizations Name Administration Dates Next Due COVID-19 mRNA, LNP-s, No Pre serve, 2-Dose Series ([employer]) 08/11/2020,07/21/2020 COVID-19, LNP-s, No Preserve , Dusty-sucrose, Ages 12+ ([employer]) 02/05/2022,08/07/2021 COVID-19, MRNA-LNP, 23-24, P F, 30 MCG/0.3 mL, 12 YRS AND ABOVE, IM ([facility]) 05/13/2023 Covid-19, Mrna, Lnp-s, Pf, B ivalent, 30 Mcg, IM, 12 yrs and above ([employer]) 06/11/2022 Pneumococcal Conjugate Vacc, 13 Valent (Prevnar) [...] encounter Miscellaneous Notes * Telephone Encounter - Sofía Ovalle OSA - 12/09/2023 9:27 AM EDT Pt placed on 1 year recall. Appts with Surgery and Medical Oncology zoe'd. * Telephone Encounter - Nitin Austin DO - 12/08/2023 10:52 AM EDT I called the patient with her pathology results this morning. 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 Plan Surgical input pending Medical oncology referral needed CT Pending Repeat colonoscopy in 1 year Pathology results A. Duodenum, random, biopsy: Duodenal [...] adenoma Separate fragments of adenocarcinoma, likely contamination/carryover documented in this encounter Plan of Treatment Upcoming Encounters Date Type Department Care Team (Late st Contact Info) Description 12/11/2023 9:00 AM EDT Office Visit General Surgery, [facility] [address] [place] [address] Pedro Peace MD [address] [place] [address] 12/31/2023 1:00 PM EDT Office Visit Hematology/Oncology [facility] [place] [address] [place] [phone] Gay Lu MD [address] [facility] [place] [address] 02/10/2024 1:00 PM EDT Office Visit Family Medicine [address] [place] [phone] Kahlil Mooney [address] [place] [address] 04/05/2024 1:20 PM EDT Office Visit Dermatology [address] [place] [address] Melanie Frank PA-C [address] [place] [address] [place] [address] 07/23/2024 3:30 PM EST Office Visit Nephrology [address] [place] [address] Valery Urena PA-C [address] [facility] [place] [address] 08/17/2024 1:40 PM EST Office Visit Family Medicine [address] [place] [phone] Jasson Denney MD [address] [place] [address] [place] [address] Scheduled Procedures Name Priority Associated Diagnoses Date/Ti [...] Additional history exists CKD PHOS USE SMARTSET 36256 09/29/202409/14, 09/01/2023, 07/25/2022, Additional history exists Albumin/Creatinine Ratio 09/30/2024 024, 06/30/2023, 07/25/2022, Additional history exists O2 ASSESSMENT COMPLETED IN PAST YEAR FOR COPD 11/24/2024 11/25/2023 CKD HGB USE SMARTSET 29315 11/30/202411/30, 12/01/2023, 10/13/2023, Additional history exists DXA [...] this encounter Medical Devices Implanted Type Area Indian Blanket Weaver Device Identifier Shelf Expiration Date Model / Serial / Lot [place] Excluder Aaa Endoprothesis System-07/07/2019 Implanted:07/07/19 20 (Quantity not on file) Graft Description:Multiple implant s from system on same day [id number] Cordis Bx Velocity Cardiac Stent-06/02/2002 Implanted:06/02/20 02 (Quantity not on file) Stent CORDIS LEXA BX VELOCITY [id number] / / [id number] Cordis Bx Velocity Cardiac Stent-01/03/2003 Implanted:01/04/20 03 (Quantity not on file) Stent CORDIS LEXA VELOCITY [id number] / / [id number] documented as of this encounter Advance Directives [...] patient or by statute hierarchy) Care Teams Hostess Host Relationship Specialty Start Date End Date Jasson Denney MD [address] [place] [address] [place] [address] PCP - General Family Medicine 03/22/16 documented as of this encounter
--- OUTSIDE RECORDS SUMMARY | 2023-12-22 05:47 | External Medical Summary | Summary of Care ---
Author Name Unknown Organization [facility] Address [address] [place] [address] Phone [phone] Care Team Providers Care Automatic Fancy Machine Operator Name Role Phone Jonathan Denney MD Primary Care Provide r Reason for Visit * Reason Comments eRx-Medication Refill Encounter Details Date Type Department Care Team (Late st Contact Info) Description 12/10/2023 Refill Family Medicine [address] [phone] Jonathan Denney MD [address] [place] [address] [place] [address] Allergies Active Allergy Reactions Criticality Noted Date [...] 24 Hour (Imdur)Indicatio ns:Coronary artery disease involving [place] coronary artery of [place] heart without angina pectoris TAKE 1 TABLET BY MOUTH EVERY DAY IN THE MORNING 90 Tablet 1 11/13/2023 Active Enalapril Maleate 10 MG Oral Tablet (Vasotec) TAKE 2 TABLETS BY MOUTH EVERY DAY 180 Tablet 1 12/11/2023 Active Enalapril Maleate 10 MG Oral Tablet [...] stent 11/15/2020 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 (Household - for ages [...] Notes * Telephone Encounter - Guillermo Bronson [facility] - 12/11/2023 8:09 AM EDTSigned Prescriptions: Disp Refills Enalapril Maleate 10 MG Oral Tablet (Vasot*180 Ta*1 Sig: TAKE 2 TABLETS BY MOUTH EVERY DAYAuthorizing Provider: JONATHAN DENNEY User: GUILLERMO ALVARADO documented in this encounter Plan of Treatment Upcoming Encounters Date Type Department Care Team (Late st Contact Info) Description 12/11/2023 9:00 AM EDT Office Visit General Surgery, [facility] [address] [place] [address] Pedro Peace MD [address] [place] [address] 12/31/2023 1:00 PM EDT Office Visit [facility] [address] [place] [phone] Gay Lu MD [address] [place] [address] 02/10/2024 1:00 PM EDT Office Visit Family Medicine [address] [place] [phone] Kahlil Mooney [address] [place] [address] 04/05/2024 1:20 PM EDT Office Visit Dermatology [address] [place] [address] Melanie Frank PA-C [address] [place] [address] [place] [address] 07/23/2024 3:30 PM EST Office Visit Nephrology [address] [place] [address] ZeValery kurtz PA-C 200 [facility] [place] [address] 08/17/2024 1:40 PM EST Office Visit Family Medicine [address] [place] [phone] Jonathan Denney MD [address] [place] [address] [place] [address] Scheduled Procedures Name Priority Associated Diagnoses Date/Ti [...] Additional history exists CKD PHOS USE SMARTSET 76323 09/29/202409/14, 09/01/2023, 07/25/2022, Additional history exists Albumin/Creatinine Ratio 09/30/20242 024, 06/30/2023, 07/25/2022, Additional history exists O2 ASSESSMENT COMPLETED IN PAST YEAR FOR COPD 11/24/2024 11/25/2023 CKD HGB USE SMARTSET 57135 11/30/202411/30, 12/01/2023, 10/13/2023, Additional history exists DXA [...] this encounter Medical Devices Implanted Type Area [place]ver Installer Device Identifier Shelf Expiration Date Model / Serial / Lot [place] Excluder Aaa Endoprothesis System-07/07/2019 Implanted:07/07/19 20 (Quantity not on file) Graft Description:Multiple implant s from system on same day [id number] Cordis Bx Velocity Cardiac Stent-06/02/2002 Implanted:06/02/20 02 (Quantity not on file) Stent CORDIS LEXA BX VELOCITY [id number] / / [id number] Cordis Bx Velocity Cardiac Stent-01/03/2003 Implanted:01/04/20 03 (Quantity not on file) Stent CORDIS LEXA VELOCITY [id number] / / [id number] documented as of this encounter Advance Directives [...] patient or by statute hierarchy) Care Teams Automatic Fancy Machine Operator Relationship Specialty Start Date End Date Jonathan Denney MD [address] [place] [address] [place] [address] PCP - General Family Medicine 03/22/16 documented as of this encounter
--- OUTSIDE RECORDS SUMMARY | 2023-12-22 05:47 | External Medical Summary ---
Author Name Unknown Address Unknown Organization K01:[facility] [place] [facility] [address] [facility] [address] [place] [address] Laboratory Report Ordering Provider Test Date Status LIONEL GILL 12/01/2023 11:09:01 Final Observation Date Value Abnormality Reference (Units ) Status WBC, Total 12/01/2023 11:09:01 6.17 4.00-10.80 (K/uL) Final RBC 12/01/2023 11:09:01 3.51 3.85-5.15 (M/uL) Final Hemoglobin 12/01/2023 11:09:01 9.4 Below low normal 12.0-15.3 (g/dL) Final HCT 12/01/2023 11:09:01 31.4 Below low normal 36.0-45.2 (%) Final MCV 12/01/2023 11:09:01 89.5 81.5-97.5 (fL) Final MCH 12/01/2023 11:09:01 26.8 27.0-34.0 (pg) Final MCHC 12/01/2023 11:09:01 29.9 32.0-36.0 (g/dL) Final RDW 12/01/2023 11:09:01 16.4 11.5-15.5 (%) Final Platelets 12/01/2023 11:09:01 298 140-400 (K/uL) Final MPV 12/01/2023 11:09:01 9.3 6.6-11.1 (fL) Final Nucleated erythrocytes/100 leukocytes [Ratio] in Blood by Automated count 12/01/2023 11:09:01 0 <=0 (/100 WBCs) Final Performing Location [facility] [place] [address] [place] [address]
--- OUTSIDE RECORDS SUMMARY | 2023-12-22 05:48 | External Medical Summary | Summary of Care ---
Author Name Unknown Organization [facility] Address [address] [facility] [place] [address] Phone [phone] Care Team Providers Care Senior Manager Asset Protection Name Role Phone Jasson Denney MD Primary Care Provide r Reason for Visit * Reason Comments IV Therapy Venofer. Encounter Details Date Type Department Care Team (Latest Contact Info) Description 10/23/2023 2:30 PM EDT Hem/Onc Treatment Hematology/Oncology Treatment, [address] [phone] Daria, Chair [address] Hem On[address] [place] [address] Iron deficiency anemia, unspecified iron deficiency anemia type* Allergies Active Allergy Reactions Criticality Noted Date Comments Adhesive Tape 04/11/2006 Latex 06/06/2022 Other reaction(s): rash/itchy documented as of this encounter (statuses as of 10/23/2023) Medications Medication Sig Dispensed Refills Start Date [...] every night at bedtime. 0 07/12/2019 Active Phenylephrine-[place] Butter 0.25-88.44 % Rectal Suppository Administer into the rectum as needed for Hemorrhoids. 0 Active Nitroglycerin 0.4 MG Sublingual Tablet Sublingual (Nitrostat) Place 1 Tablet under the tongue as needed. 0 11/10/2020 Active Isosorbide Mononitrate ER 30 MG Oral Tablet Extended Release 24 Hour (Imdur)Indications: Coronary artery disease involving [place] coronary artery of [place] heart without angina pectoris TAKE 1 TABLET BY MOUTH EVERY DAY IN THE MORNING 90 Tablet 1 05/30/2023 Active Rosuvastatin Calcium 20 MG Oral Tablet (Crestor)Indication s:Dyslipidemia, goal LDL below 100 TAKE 1 TABLET BY MOUTH DAILY 90 Tablet 3 06/19/2023 Active Iron-Vitamin C 65-125 MG Oral Tablet (Vitron [...] the tablet. 90 Tablet 3 10/14/2023 Active documented as of this encounter (statuses as of 10/23/2023) Active Problems Problem Noted Date Diagnosed Date Iron deficiency anemia 08/12/2023 Encounter for antineoplastic chemotherapy 2022 Malignant neoplasm of left b reast in female, estrogen receptor positive 06/28/2022 Postherpetic neuralgia 06/28/2022 Hiatal hernia 08/07/2021 Schatzki's ring 08/07/2021 S/P angioplasty with stent 11/15/2020 Coronary artery disease invo lving [place] heart without angina pectoris 11/15/2020 Cardiac murmur [...] as of this encounter (statuses as of 10/23/2023) Resolved Problems Problem Noted Date Diagnosed Date [...] as of this encounter (statuses as of 10/23/2023) Immunizations Name Administration Dates Next Due COVID-19 mRNA, LNP-s, No Pre serve, 2-Dose Series ([employer]) 08/11/2020,07/21/2020 COVID-19, LNP-s, No Preserve , Dusty-sucrose, [...] Sign Reading Time Taken Comments Blood Pressure 96/56 10/23/2023 2:30 PM EDT Pulse 66 10/23/2023 2:30 PM EDT Temperature 36.9 C (98.4 F) 10/23/2023 2:30 PM ED T Respiratory Rate 18 10/23/2023 2:30 PM EDT Oxygen Saturation 92% 10/23/2023 2:30 PM EDT Inhaled Oxygen Concentration - - Weight - - Height - - Body Mass Index - - documented in this encounter Nursing Notes * Kim Freedman RN - 10/23/2023 4:26 PM EDT Goals: Patient will remain free from injury. Possible barriers to meeting goals: ambulating with IV pole Stability of the patient: Moderately stable - low risk of patient condition declining or worsening Summary regarding today's goals: Met: pt remained free of harm today Patient tolerated treatment well without any acute issues or problems. Patient left facility in stable condition and denied any further needs. * Ana Byrnes RN - 10/23/2023 2:48 PM EDT Chair 11. Patient arrived for 3/ venofer infusion with no acute complaints. PIV established. Safety and Risk for Injury Patient will remain free from injury. Ensure appropriate safety devices are available. Provide and maintain safe environment. documented in this encounter Plan of Treatment Upcoming Encounters Date Type Department Care Team (Latest Contact Info) Description 10/30/2023 2:30 PM EDT Hem/Onc Treatment Hematology/Oncolog y Treatment, [place] [address] [place], [place] [phone] 11/25/2023 2:15 PM EDT Hospital Encounter ENDO OSSC, Endoscopy Room [facility] [address] [place] [phone] Nitin Austin, [address] [place] [address] 11/25/2023 2:15 PM EDT - 11/25/2023 3:00 PM EDT Surgery ENDO OSSC, Endoscopy Room [facility] [address] [place] [phone] Nitin Austin, [address] [place] [address] COLONOSCOPY FLEXIBLE PROXIMAL DIAGNOSTIC 11/26/2023 2:00 PM EDT Telemedicine Interventional Pain Center, [facility] [address] [place] [address] Sarah Richardson PA-C [address] [place] [address] 12/01/2023 11:10 AM EDT Laboratory Laboratory [address] [place] [phone] [facility] [address] [place] [address] 12/05/2023 11:00 AM EDT Office Visit Hematology/Oncolog y [facility] [place] [address] [place] [phone] Abena Xiong [address] [place] [address] 02/10/2024 1:00 PM EDT Office Visit Family Medicine [address] [place] [phone] Kahlil Mooney [address] [place] [address] 04/05/2024 1:20 PM EDT Office Visit Dermatology [address] [place] [address] Melanie Frank PA-C [address] [place] [address] [place] [address] 07/23/2024 3:30 PM EST Office Visit Nephrology [address] [place] [address] Valery Urena PA-C 200 [facility] [place] [address] 08/17/2024 1:40 PM EST Office Visit Family Medicine [address] [place] [phone] Jasson Denney MD [address] [place] [address] [place] [address] Scheduled Procedures Name Priority Associated Diagnoses Date/Ti me COLONOSCOPY FLEXIBLE PROXIMA L DIAGNOSTIC Iron deficiency anemia 11/25/2023 2:15 PM EDT ESOPHAGOGASTRODUODENOSCOPY ( EGD), FLEXIBLE, TRANSORAL, DIAGNOSTIC Iron deficiency anemia 11/25/2023 2:15 PM EDT Health Maintenance Due Date Last Done Comments Alpha-1 Antitrypsin 1958 DTaP,Tdap,and Td Vaccines (1 - Tdap) 1959 Zoster Vaccines (1 of 2) 1990 *COPD SEVERITY VERIFIED BY PFT 01/02/2018 HbA1c 03/20/2024 03/20/2023, 10/2021, 11/01/2020, Additional history exists GFR 03/31/2024 09/30/2023, 06/2023, 06/30/2023, Additional history exists CKD PHOS USE SMARTSET 38144 09/29/202409/14, 09/01/2023, 07/25/2022, Additional history exists Albumin/Creatinine Ratio 09/30/202409/30/2 024, 06/30/2023, 07/25/2022, Additional history exists CKD HGB USE SMARTSET 63651 10/12/202410/12, 09/30/2023, 09/30/2023, Additional history exists O2 ASSESSMENT COMPLETED IN PAST YEAR FOR COPD 10/22/2024 10/23/2023 DXA Scan 05/31/2026 05/31/2019, 12/09/2006 Pneumococcal Vaccine: [...] this encounter Medical Devices Implanted Type Area Plater Barrel Device Identifier Shelf Expiration Date Model / Serial / Lot [place] Excluder Aaa Endoprothesis System-07/07/2019 Implanted:07/07/19 20 (Quantity not on file) Graft Description:Multiple implant s from system on same day [id number] Cordis Bx Velocity Cardiac Stent-06/02/2002 Implanted:06/02/20 02 (Quantity not on file) Stent CORDIS LEXA BX VELOCITY [id number] / / [id number] Cordis Bx Velocity Cardiac Stent-01/03/2003 Implanted:01/04/20 03 (Quantity not on file) Stent CORDIS LEXA VELOCITY [id number] / / [id number] documented as of this encounter Visit Diagnoses Diagnosis Iron deficiency anemia, unspecified iron deficiency anemia type- Primary Iron deficiency anemia Iron deficiency anemia, unspecified documented in this encounter Administered Medications Active Administered Medications - up to 3 most recent administrations Medication Order MAR Action Action Date Dose Rate Site diphenhydrAMINE (Benadryl) inj 50 mg 50 mg, IV Push, ONCE PRN Other, Hypersensitivity Reaction, Starting on Fri10/23/23 at 1431, Until Fri10/24/23 at 1430, For 24 hours EPINEPHrine 1 MG/ML inj 0.3 mg 0.3 mg, Intramuscular, ONCE PRN Other, Hypersensitivity Reaction or Anaphylaxis, Starting on Fri10/23/23 at 1431, Until Fri10/24/23 at 1430, For 24 hours hEParin 100 UNIT/ML Lock Flush inj 500 Units 500 Units (5 mL), IV Lock, PRN Other, IV Flush, Starting on Fri10/23/23 at 1431, Until Fri10/24/23 at 1430, For 24 hours, Do not flush if lock, PICC, or central line not in place; IV infusing or unable to flush. Hydrocortisone Sod Suc (PF) (Solu-Cortef) inj 100 mg 100 mg, IV Push, ONCE PRN Other, Hypersensitivity Reaction, Starting on Fri10/23/23 at 1431, Until Fri10/24/23 at 1430, For 24 hours NSS infusion 500 mL, Intravenous, at 50 mL/hr, CONTINUOUS, Starting on Fri10/23/23 at 1545, Until Fri10/24/23 at 0144 Start Infusion 10/23/2023 2:40 PM EDT 500 mL 50 mL/hr oxygen GAS Inhalation, OXYGEN, First dose on Radha 10/23/23 at 1600, Until Discontinued, Device/Managed by: Low Flow Device, Goal SPO2 (%): 91-95, Starting Device: Nasal Cannula, Initial Flow Rate (LPM): 2, Lowest Support: Nasal Cannula: Flow 0-6 LPM. Titrate up/down by 1 LPM., Higher Support: Non-Rebreather (NRB) Mask: Minimum of 10 LPM. Titrate to maintain bag inflation., Titration Interval: Q2 minutes and as needed., Notify Provider: For sudden DECREASE in resting SPO2 to less than 85% and when escalating delivery device., Wean patient off Oxygen when the oxygen saturation is greater than or equal to 93% sodium chloride 0.9 % flush central line 10 mL 10 mL, IV Push, PRN Other, IV Flush, Starting on Fri10/23/23 at 1431, Until Fri10/24/23 at 1430, For 24 hours, Do not flush if lock, PICC, or central line not in place; IV infusing or unable to flush. Inactive Administered Medications - up to 3 most recent administrations Medication Order MAR Action Action Date Dose Rate Site Iron Sucrose (Venofer) 300 mg in NSS 250 mL ivpb 300 mg, IV Piggyback, ONCE, 1 dose, On Fri10/23/23 at 1615, Administer over 90 Minutes Start Infusion 10/23/2023 2:40 PM EDT 300 mg 193.33 mL/hr documented in this encounter Advance Directives Latest [...] the patient have Health Care Power of Sealer Operator? No Healthcare Agents on File Name Relationship Healthcare Agent Relationship Communication Gus Rosenbaum Jr. Adult Child Health Care R epresentative (appointed verbally by patient or by statute hierarchy) Care Teams Senior Manager Asset Protection Relationship Specialty Start Date End Date Jasson Denney MD [address] [place] [address] [place] [address] PCP - General Family Medicine 03/22/16 documented as of this encounter
--- OUTSIDE RECORDS SUMMARY | 2023-12-22 05:48 | External Medical Summary | Summary of Care ---
Author Name Unknown Organization [facility] Address [address] [place] [facility] [place] [place] [address] Phone [phone] Care Team Providers Care Machine Farmworker Name Role Phone Jasson Denney MD Primary Care Provide r Reason for Visit * Reason Comments IV Therapy Venofer 06/19 Encounter Details Date Type Department Care Team (Latest Contact Info) Description 10/09/2023 2:30 PM EDT Hem/Onc Treatment Hematology/Oncology Treatment, [place] [address] [place] [address] Iron deficiency anemia, unspecified iron deficiency anemia type* Allergies Active Allergy Reactions Criticality Noted Date Comments Adhesive Tape 04/11/2006 Latex 06/06/2022 Other reaction(s): rash/itchy documented as of this encounter (statuses as of 10/24/2023) Medications Medication Sig Dispensed Refills Start Date [...] 24 Hour (Imdur)Indicatio ns:Coronary artery disease involving [place] coronary artery of [place] heart without angina pectoris TAKE 1 TABLET [...] 09/01/2023 Active Ezetimibe 10 MG Oral Tablet (Zetia)Indicatio [...] the morning. 90 Capsule 1 09/30/2023 Active Atenolol 25 MG Oral Tablet (Tenormin)Indica tions:HTN, goal below 140/90 TAKE 1 TABLET BY MOUTH DAILY IN THE MORNING 90 Tablet 1 05/30/2023 4 Discontinued documented as of this encounter (statuses as of 10/24/2023) Active Problems Problem Noted Date Diagnosed Date Iron deficiency anemia 08/12/2023 Encounter for antineoplastic chemotherapy 2022 Malignant neoplasm of left b reast in female, estrogen receptor positive 06/28/2022 Postherpetic neuralgia 06/28/2022 Hiatal hernia 08/07/2021 Schatzki's ring 08/07/2021 S/P angioplasty with stent 11/15/2020 Coronary artery disease invo lving [place] heart without angina pectoris 11/15/2020 Cardiac murmur [...] as of this encounter (statuses as of 10/24/2023) Resolved Problems Problem Noted Date Diagnosed Date [...] as of this encounter (statuses as of 10/24/2023) Immunizations Name Administration Dates Next Due COVID-19 mRNA, LNP-s, No Pre serve, 2-Dose Series ([employer]) 08/11/2020,07/21/2020 COVID-19, LNP-s, No Preserve , Dusty-sucrose, Ages 12+ ([employer]) 02/05/2022,08/07/2021 COVID-19, MRNA-LNP, 23-24, P F, 30 MCG/0.3 mL, 12 YRS AND ABOVE, IM (Oligasis-Comirnat) 05/13/2023 Covid-19, Mrna, Lnp-s, Pf, B ivalent, 30 Mcg, IM, 12 yrs and above ([employer]) 06/11/2022 Pneumococcal Conjugate Vacc, 13 Valent (Prevnar) [...] Sign Reading Time Taken Comments Blood Pressure 93/47 10/09/2023 2:30 PM EDT Pulse 62 10/09/2023 2:30 PM EDT Temperature 36.3 C (97.3 F) 10/09/2023 2:30 PM ED T Respiratory Rate 16 10/09/2023 2:30 PM EDT Oxygen Saturation 94% 10/09/2023 2:30 PM EDT Inhaled Oxygen Concentration - - Weight - - Height - - Body Mass Index - - documented in this encounter Nursing Notes * Kim Freedman RN - 10/09/2023 4:10 PM EDT Goals: Patient will remain free [...] condition and denied any further needs. * Kim Freedman RN - 10/09/2023 2:49 PM EDT Chair 6. IV inserted. Patient here today for IV Venofer. She has never had IV iron before. Patient educated about infusion and process of receiving infusion here at facility. She has been here before for chemo treatment which she completed. Her son brought her in today and will return after infusion is completed to drive her back home. Patient is comfortable and denies further needs at this time. Safety and Risk for Injury Patient will remain free from injury. Ensure appropriate safety devices are available. Provide and maintain safe environment. documented in this encounter Plan of Treatment Upcoming Encounters Date Type Department Care Team (Latest Contact Info) Description 10/30/2023 2:30 PM EDT Hem/Onc Treatment Hematology/Oncolog y Treatment, [place] [address] [place] [phone] 11/25/2023 2:15 PM EDT Hospital Encounter ENDO OSSC, Endoscopy Room [facility] [address] [place] [address] Nitin Austin, [address] [place] [address] 11/25/2023 2:15 PM EDT - 11/25/2023 3:00 PM EDT Surgery ENDO OSSC, Endoscopy Room [facility] [address] [place] [phone] Nitin Austin, [address] [place] [address] COLONOSCOPY FLEXIBLE PROXIMAL DIAGNOSTIC 11/26/2023 2:00 PM EDT Telemedicine Interventional Pain Center, [facility] [address] [place] [address] Sarah Richardson PA-C [address] [place] [address] 12/01/2023 11:10 AM EDT Laboratory Laboratory [address] [place] [phone] [facility] [address] [place] [address] 12/05/2023 11:00 AM EDT Office Visit Hematology/Oncolog y [facility] [place] [address] [place] [phone] Abena Xiong CRNP [address] [facility] [place] [address] 02/10/2024 1:00 PM EDT Office Visit Family Medicine [address] [place] [phone] Kahlil Mooney CRNP [address] [place] [address] [place] [address] 04/05/2024 1:20 PM EDT Office Visit Dermatology [address] [place] [address] Melanie Frank PA-C [address] [place] [address] [place] [address] 07/23/2024 3:30 PM EST Office Visit Nephrology [address] [place] [address] Valery Urena PA-C [address] [place] [address] 08/17/2024 1:40 PM EST Office Visit Family Medicine [address] [place] [phone] Jasson Denney MD [address] [place] [address] [place] [address] Scheduled Procedures Name Priority [...] Additional history exists CKD PHOS USE SMARTSET 12802 09/29/202409/14, 09/01/2023, 07/25/2022, Additional history exists Albumin/Creatinine Ratio 09/30/2024 024, 06/30/2023, 07/25/2022, Additional history exists CKD HGB USE SMARTSET 81950 10/12/202410/12, 09/30/2023, 09/30/2023, Additional history exists O2 [...] this encounter Medical Devices Implanted Type Area Compound Filler Device Identifier Shelf Expiration Date Model / Serial / Lot [place] Excluder Aaa Endoprothesis System-07/07/2019 Implanted:07/07/19 20 (Quantity not on file) Graft Description:Multiple implant s from system on same day [id number] Cordis Bx Velocity Cardiac Stent-06/02/2002 Implanted:06/02/20 02 (Quantity not on file) Stent CORDIS LEXA BX VELOCITY [id number] / / [id number] Cordis Bx Velocity Cardiac Stent-01/03/2003 Implanted:01/04/20 03 (Quantity not on file) Stent CORDIS LEXA VELOCITY [id number] / / [id number] documented as of this encounter Visit Diagnoses Diagnosis Iron deficiency anemia, unspecified iron deficiency anemia type- Primary Iron deficiency anemia Iron deficiency anemia, unspecified documented in this encounter Administered Medications Inactive Administered Medications - up to 3 most recent administrations Medication Order MAR Action Action Date Dose Rate Site Iron Sucrose (Venofer) 300 mg in NSS 250 mL ivpb 300 mg, IV Piggyback, ONCE, 1 dose, On Radha 10/09/23 at 1615, Administer over 90 Minutes Start Infusion 10/09/2023 2:38 PM EDT 300 mg 193.33 mL/hr NSS infusion 500 mL, Intravenous, at 50 mL/hr, CONTINUOUS, Starting on Radha 10/09/23 at 1545, Until Radha 10/09/23 at 2010 Start Infusion 10/09/2023 2:38 PM EDT 500 mL 50 mL/hr documented in this encounter Advance Directives [...] the patient have Health Care Power of Refurbish Technician? No Healthcare Agents on File Name Relationship Healthcare Agent Relationship Communication Gus Rosenbaum Jr. Adult Child Health Care R epresentative (appointed verbally by patient or by statute hierarchy) Care Teams Machine Farmworker Relationship Specialty Start Date End Date Jasson Denney MD [address] [place] [address] [place] [address] PCP - General Family Medicine 03/22/16 documented as of this encounter
--- OUTSIDE RECORDS SUMMARY | 2023-12-22 05:48 | External Medical Summary | Summary of Care ---
Author Name Unknown Organization [facility] Address [address] [place] [facility] [place] [address] Phone [phone] Care Team Providers Care Net Development Manager Name Role Phone Jasson Denney MD Primary Care Provide r Reason for Visit * Reason Comments IV Therapy Venofer Encounter Details Date Type Department Care Team (Latest Contact Info) Description 10/29/2023 1:00 PM EDT Hem/Onc Treatment Hematology/Oncology Treatment, [address] [phone] [place], Chair [address] Hem Onc Scen[address] [place] [address] Iron deficiency anemia, unspecified iron deficiency anemia type* Allergies Active Allergy Reactions Criticality Noted Date Comments Adhesive Tape 04/11/2006 Latex 06/06/2022 Other reaction(s): rash/itchy documented as of this encounter (statuses as of 11/22/2023) Medications Medication Sig Dispensed Refills Start Date [...] 24 Hour (Imdur)Indicatio ns: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 TAKE 1 TABLET BY MOUTH EVERY DAY IN THE MORNING 90 Tablet 1 05/30/2023 4 Discontinued documented as of this encounter (statuses as of 11/22/2023) Active Problems Problem Noted Date Diagnosed Date Iron deficiency anemia 08/12/2023 Encounter for antineoplastic chemotherapy 2022 Malignant neoplasm of left b reast in female, estrogen receptor positive 06/28/2022 Postherpetic neuralgia 06/28/2022 Hiatal hernia 08/07/2021 Schatzki's ring 08/07/2021 S/P angioplasty with stent 11/15/2020 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 11/15/2020 Cardiac murmur [...] as of this encounter (statuses as of 11/22/2023) Resolved Problems Problem Noted Date Diagnosed Date [...] as of this encounter (statuses as of 11/22/2023) Immunizations Name Administration Dates Next Due COVID-19 mRNA, LNP-s, No Pre serve, 2-Dose Series ([employer]) 08/11/2020,07/21/2020 COVID-19, LNP-s, No Preserve , Dusty-sucrose, Ages 12+ (Pfizer) 02/05/2022,08/07/2021 COVID-19, MRNA-LNP, 23-24, P F, 30 MCG/0.3 mL, 12 YRS AND ABOVE, IM ([employer]) 05/13/2023 Covid-19, Mrna, Lnp-s, Pf, B ivalent, [...] Sign Reading Time Taken Comments Blood Pressure 102/44 10/29/2023 1:17 PM EDT Pulse 74 10/29/2023 1:17 PM EDT Temperature 36.3 C (97.4 F) 10/29/2023 1:17 PM ED T Respiratory Rate 16 10/29/2023 1:17 PM EDT Oxygen Saturation 92% 10/29/2023 1:17 PM EDT Inhaled Oxygen Concentration - - Weight - - Height - - Body Mass Index - - documented in this encounter Nursing Notes * Clara Cardenas LPN - 10/29/2023 3:01 PM EDT Patient completed IV therapy Venofer. IV access disconnected; site cleaned and bandaged. Patient will have labs 11/30. Patient discharged in stable condition. * Clara Cardenas LPN - 10/29/2023 1:17 PM EDT Patient arrived Chair 4 for IV therapy Venofer. Vital signs are stable. IV access successful at theright forearm vein. IV line flushed with ease, IV fluids hydrating. Call tanner within reach. documented in this encounter Plan of Treatment Upcoming Encounters Date Type Department Care Team (Latest Contact Info) Description 11/25/2023 2:00 PM EDT Hospital Encounter ENDO [facility], Endoscopy Room [facility] [address] [place] [address] Nitin Austin, [address] [place] [address] 11/25/2023 2:00 PM EDT - 11/25/2023 3:00 PM EDT Surgery ENDO [facility], Endoscopy Room [facility] [address] [place] [address] Nitin Austin DO [address] [place] [address] COLONOSCOPY FLEXIBLE PROXIMAL DIAGNOSTIC 11/26/2023 2:00 PM EDT Telemedicine Interventional Pain Center, [facility] [address] [place] [address] Sarah Richardson PA-C [address] [place] [address] 12/01/2023 11:10 AM EDT Laboratory Laboratory [address] [place] [phone] [place], Lab [address] [place] [address] 12/05/2023 11:00 AM EDT Office Visit Hematology/Oncolog y [facility] [place] [address] [facility] [address] [place] [phone] Abena Xiong CRNP [address] [place] [address] 02/10/2024 1:00 PM EDT Office Visit Family Medicine [address] [place] [phone] Kahlil Mooney CRNP [address] [place] [address] [place] [address] 04/05/2024 1:20 PM EDT Office Visit Dermatology [address] [place] [address] Melanie Frank PA-C [address] [place] [address] [place] [address] 07/23/2024 3:30 PM EST Office Visit Nephrology [address] [place] [address] ZeValery kurtz PA-C [address] [facility] [address] 08/17/2024 1:40 PM EST Office Visit Family Medicine [address] [place] [phone] Jasson Denney MD [address] [place] [address] [place] [address] Scheduled Procedures Name Priority Associated Diagnoses Date/Ti me COLONOSCOPY FLEXIBLE PROXIMA L DIAGNOSTIC Iron deficiency anemia 11/25/2023 2:00 PM EDT ESOPHAGOGASTRODUODENOSCOPY ( EGD), FLEXIBLE, TRANSORAL, DIAGNOSTIC Iron deficiency anemia 11/25/2023 2:00 PM EDT Health Maintenance Due Date Last Done Comments Alpha-1 Antitrypsin 1958 DTaP,Tdap,and Td Vaccines (1 - Tdap) 1959 Zoster Vaccines (1 of 2) 1990 *COPD SEVERITY VERIFIED BY PFT 01/02/2018 COVID-19 Vaccine ( season) 2023 05/13/2023, 06/11/2022, 02/05/2022, Additional history exists HbA1c 03/20/2024 03/20/2023, 10/2021, 11/01/2020, Additional history exists GFR 03/31/2024 09/30/2023, 06/2023, 06/30/2023, Additional history exists CKD PHOS USE SMARTSET 64298 09/29/202409/14, 09/01/2023, 07/25/2022, Additional history exists Albumin/Creatinine Ratio 09/30/202409/30/ 024, 06/30/2023, 07/25/2022, Additional history exists CKD HGB USE SMARTSET 70364 10/12/202410/12, 09/30/2023, 09/30/2023, Additional history exists O2 ASSESSMENT COMPLETED IN PAST YEAR FOR COPD 10/28/2024 10/29/2023 DXA Scan 05/31/2026 05/31/2019, 12/09/2006 Pneumococcal Vaccine: [...] this encounter Medical Devices Implanted Type Area Photoengraving Proofer Device Identifier Shelf Expiration Date Model / Serial / Lot [place] Excluder Aaa Endoprothesis System-07/07/2019 Implanted:07/07/19 20 (Quantity not on file) Graft Description:Multiple implant s from system on same day [id number] Cordis Bx Velocity Cardiac Stent-06/02/2002 Implanted:06/02/20 02 (Quantity not on file) Stent CORDIS LEXA BX VELOCITY [id number] / / [id number] Cordis Bx Velocity Cardiac Stent-01/03/2003 Implanted:01/04/20 03 (Quantity not on file) Stent CORDIS LEXA VELOCITY [id number] / / [id number] documented as of this encounter Visit Diagnoses [...] mg, IV Piggyback, ONCE, 1 dose, On Fri10/29/23 at 1445, Administer over 90 Minutes Start Infusion 10/29/2023 1:09 PM EDT 300 mg 193.33 mL/hr NSS infusion 500 mL, Intravenous, at 50 mL/hr, CONTINUOUS, Starting on Fri10/29/23 at 1415, Until Fri10/29/23 at 1903 Start Infusion 10/29/2023 1:09 PM EDT 500 mL 50 mL/hr documented in this encounter Advance Directives * [...] patient or by statute hierarchy) Care Teams Net Development Manager Relationship Specialty Start Date End Date Jumana, Doriann Singh, MD [address] [place] [address] [place] [phone] PCP - General Family Medicine 03/22/16 documented as of this encounter
--- OUTSIDE RECORDS SUMMARY | 2023-12-22 05:48 | External Medical Summary | Summary of Care ---
Author Name Unknown Organization [facility] Address [address] [facility] [address] Phone [phone] Care Team Providers Care Chucking Machine Set Up Operator Name Role Phone Jasson Denney MD Primary Care Provide r Reason for Referral * Evaluate & Treat - Unlimited Visits (Within 10 days (routine)) - Authorized Specialty Diagnoses / Procedures Referred By Contac t Referred To Contact Colon and Rectal Surgery / General Surgery Diagnoses Colonic mass Nitin Austin DO [address] [place] [address] Referral ID Status Reason Start Date Expiration Date Visits Requested Visits Authorized [id number] Authorized Specialty Services Required 11/25/2023 999 999 Question Answer What condition is the patient being seen for? Cancer Referral Priority Within 10 days (routine) Where should this appointment be scheduled? [facility] Comments Patient with a cecal and a mass at the hepatic flexure. Evaluation for colon resection * Precert (Within 10 days (routine)) - Authorized Specialty Diagnoses / Procedures Referred By Contac t Referred To Contact Radiology Diagnoses Colonic mass Procedures CT ABD/PELVIS WO IV CONTRAST - W ORAL CONTRAST Nitin Austin DO [address] [place] [address] Referral ID Status Reason Start Date Expiration Date V isits Requested Visits Authorized [id number] Authorized 11/25/2023 999 999 Reason for Visit * Reason Onset Date Comments Follow Up 11/25/2023 Encounter Details Date Type Department Care Team (Late st Contact Info) Description 11/25/2023 Telephone Gastroenterology, [facility] [address] [place] [address] Nitin Austin DO [address] [place] [address] Follow Up Allergies Active Allergy Reactions Criticality Noted Date Comments Adhesive Tape 04/11/2006 Latex 06/06/2022 Other reaction(s): rash/itchy documented as of this encounter (statuses as of 11/26/2023) Medications Medication Sig Dispensed Refills Start Date [...] mouth every night at bedtime. 07/12/2019 Active Phenylephrine-Ector Butter 0.25-88.44 % Rectal Suppository Administer into [...] Hour (Imdur)Indications: Coronary artery disease involving [place] coronary artery of [place] heart without angina pectoris TAKE 1 TABLET BY MOUTH EVERY DAY IN THE MORNING 90 Tablet 1 11/13/2023 Active documented as of this encounter (statuses as of 11/26/2023) Active Problems Problem Noted Date Diagnosed Date Colonic mass 11/25/2023 Iron deficiency anemia 08/12/2023 Encounter for antineoplastic chemotherapy 2022 Malignant neoplasm of left b reast in female, estrogen receptor positive 06/28/2022 Postherpetic neuralgia 06/28/2022 Hiatal hernia 08/07/2021 Schatzki's ring 08/07/2021 S/P angioplasty with stent 11/15/2020 Coronary artery disease invo lving [place] heart without angina pectoris 11/15/2020 Cardiac murmur [...] as of this encounter (statuses as of 11/26/2023) Resolved Problems Problem Noted Date Diagnosed Date [...] as of this encounter (statuses as of 11/26/2023) Immunizations Name Administration Dates Next Due COVID-19 mRNA, LNP-s, No Pre serve, 2-Dose Series ([facility]) 08/11/2020,07/21/2020 COVID-19, LNP-s, No Preserve , Dusty-sucrose, Ages 12+ ([facility]) 02/05/2022,08/07/2021 COVID-19, MRNA-LNP, 23-24, P F, 30 MCG/0.3 mL, 12 YRS AND ABOVE, IM ([facility]) 05/13/2023 Covid-19, Mrna, Lnp-s, Pf, B ivalent, 30 Mcg, IM, 12 yrs and above ([facility]) 06/11/2022 Pneumococcal Conjugate Vacc, 13 Valent (Prevnar) [...] encounter Miscellaneous Notes * Telephone Encounter - Marla Middleton OSA - 11/26/2023 1:17 PM EDT Lmm to get CT scan zoe'd. * Telephone Encounter - Carleen Kendall CMA - 11/25/2023 2:15 PM EDT Attempted to call pt to f/u from Dr Austin's post procedure note and let pt know if she would like to schedule her CT she can call [facility] at [phone], if not they will reach out to her to schedule and if she don't hear from colorectal in a few days to please let us know. MAICO Durant * Telephone Encounter - Nitin Austin DO - 11/25/2023 12:25 PM EDT Patient with a right sided colon mass 1 in the cecum and 1 in the hepatic flexure, patient will need to see Colorectal surgery to discuss treatment options. I placed an order for a noncontrast CT of the abdomen and pelvis due to the patient's history of renal insufficiency. Plan CEA ordered CT abd/pelvis Colorectal surgery referral. documented in this encounter Plan of Treatment Upcoming Encounters Date Type Department Care Team (Late st Contact Info) Description 12/01/2023 11:10 AM EDT Laboratory Laboratory [address] [place] [phone] [place] [address] 12/05/2023 11:00 AM EDT Office Visit Hematology/Oncology [facility] [phone] Abena Xiong CRNP [address] [facility] [place] [address] 12/11/2023 9:00 AM EDT Office Visit General Surgery, [facility] [address] [place] [address] Pedro Peace MD [address] [place] [address] 02/10/2024 1:00 PM EDT Office Visit Family Medicine [address] [place] [phone] Kahlil Mooney CRNP [address] [place] [address] [place] [address] 04/05/2024 1:20 PM EDT Office Visit Dermatology [address] [place] [address] Melanie Frank PA-C [address] [place] [address] [place] [address] 07/23/2024 3:30 PM EST Office Visit Nephrology [address] [place] [address] Valery Urena PA-C [address] [place] [address] 08/17/2024 1:40 PM EST Office Visit Family Medicine [address] [place] [phone] Jasson Denney MD [address] [place] [address] [place] [address] Scheduled Orders Name Type Priority Associated Diagnoses Orde r Schedule CEA Lab Routine Colonic mass Malignant neoplasm of ascending colon (HCC) Expected: 11/25/2023, Expires: 11/24/2024 CT ABD/PELVIS WO IV CONTRAST - W ORAL CONTRAST Medical Imaging Routine Colonic mass Expected: 11/25/2023, Expires: 12/24/2024 Scheduled Referrals Name Type Priority Associated Diagnoses Orde r Schedule COLORECTAL SURGERY REFERRAL OP Referral Within 10 days (routine) Colonic mass Ordered: 11/25/2023 Health Maintenance Due Date Last Done Comments [...] Additional history exists CKD PHOS USE SMARTSET 79872 09/29/2024 04/1 11/2023, 09/01/2023, 07/25/2022, Additional history exists Albumin/Creatinine Ratio 09/30/202409/30/2 024, 06/30/2023, 07/25/2022, Additional history exists CKD HGB USE SMARTSET 43315 10/12/202410/12, 09/30/2023, 09/30/2023, Additional history exists O2 [...] encounter Medical Devices Implanted Type Area Technical Project Manager Device Identifier Shelf Expiration Date Model / Serial / Lot [place] Excluder Aaa Endoprothesis System-07/07/2019 Implanted:07/07/19 20 (Quantity not on file) Graft Description:Multiple implant s from system on same day [id number] Cordis Bx Velocity Cardiac Stent-06/02/2002 Implanted:06/02/20 02 (Quantity not on file) Stent CORDIS LEXA BX VELOCITY [id number] / / [id number] Cordis Bx Velocity Cardiac Stent-01/03/2003 Implanted:01/04/20 03 (Quantity not on file) Stent CORDIS LEXA VELOCITY [id number] / / [id number] documented as of this encounter Visit Diagnoses Diagnosis Colonic mass- Primary Other specified disorder of intestines Malignant neoplasm [...] patient or by statute hierarchy) Care Teams Chucking Machine Set Up Operator Relationship Specialty Start Date End Date Jasson Denney MD [address] [place] [address] [place] [phone] PCP - General Family Medicine 03/22/16 documented as of this encounter
--- OUTSIDE RECORDS SUMMARY | 2023-12-22 05:48 | External Medical Summary | Summary of Care ---
Author Name Unknown Organization [facility] Address [address] [facility] [address] Phone [phone] Care Team Providers Care Secretarial Stenographer Name Role Phone Jasson Denney MD Primary Care Provide r Reason for Referral * Evaluate & Treat - Unlimited Visits (Within 10 days (routine)) - Authorized Specialty Diagnoses / Procedures Referred By Contac t Referred To Contact Colon and Rectal Surgery / General Surgery Diagnoses Colonic mass Nitin Austin DO [address] [place] [address] Referral ID Status Reason Start Date Expiration Date Visits Requested Visits Authorized [id number] Authorized Specialty Services Required 11/25/2023 999 999 [...] Austin DO [address] [place] [address] Referral ID Status Reason Start Date Expiration Date V isits Requested Visits Authorized [id number] Authorized 11/25/2023 999 999 Reason for Visit * Reason Onset Date Comments Follow Up 11/25/2023 Encounter Details Date Type Department Care Team (Late st Contact Info) Description 11/25/2023 Telephone Gastroenterology, [facility] [address] [place] [address] Nitin Austin DO [address] [place] [address] Follow Up Allergies Active Allergy Reactions Criticality Noted Date Comments Adhesive Tape 04/11/2006 Latex 06/06/2022 Other reaction(s): rash/itchy documented as of this encounter (statuses as of 11/25/2023) Medications Medication Sig Dispensed Refills Start Date [...] mouth every night at bedtime. 07/12/2019 Active Phenylephrine-Leon Butter 0.25-88.44 % Rectal Suppository Administer into [...] 24 Hour (Imdur)Indications: Coronary artery disease involving [place] coronary artery of [place] heart without angina pectoris TAKE 1 TABLET BY MOUTH EVERY DAY IN THE MORNING 90 Tablet 1 11/13/2023 Active documented as of this encounter (statuses as of 11/25/2023) Active Problems Problem Noted Date Diagnosed Date Colonic mass 11/25/2023 Iron deficiency anemia 08/12/2023 Encounter for antineoplastic chemotherapy 2022 Malignant neoplasm of left b reast in female, estrogen receptor positive 06/28/2022 Postherpetic neuralgia 06/28/2022 Hiatal hernia 08/07/2021 Schatzki's ring 08/07/2021 S/P angioplasty with stent 11/15/2020 Coronary artery disease invo lving [place] heart without angina pectoris 11/15/2020 Cardiac murmur [...] as of this encounter (statuses as of 11/25/2023) Resolved Problems Problem Noted Date Diagnosed Date [...] as of this encounter (statuses as of 11/25/2023) Immunizations Name Administration Dates Next Due COVID-19 mRNA, LNP-s, No Pre serve, 2-Dose Series ([facility]) 08/11/2020,07/21/2020 COVID-19, LNP-s, No Preserve , Dusty-sucrose, Ages 12+ ([facility]) 02/05/2022,08/07/2021 COVID-19, MRNA-LNP, 23-24, P F, 30 MCG/0.3 mL, 12 YRS AND ABOVE, IM ([facility]) 05/13/2023 Covid-19, Mrna, Lnp-s, Pf, B ivalent, 30 Mcg, IM, 12 yrs and above ([facility]) 06/11/2022 Pneumococcal Conjugate Vacc, 13 Valent (Prevnar) [...] encounter Miscellaneous Notes * Telephone Encounter - Carleen Kendall CMA - 11/25/2023 2:15 PM EDT Attempted to call pt to f/u from Dr Austin's post procedure note and let pt know if she would like to schedule her CT she can call [facility] at [phone], if not they will reach out to [...] Care Team (Late st Contact Info) Description 11/26/2023 2:00 PM EDT Telemedicine Interventional Pain Center, [facility] [address] [place] [address] Sraah Richardson PA-C [address] [place] [address] 12/01/2023 11:10 AM EDT Laboratory Laboratory [address] [place] [phone] [address] [place] [address] 12/05/2023 11:00 AM EDT Office Visit Hematology/Oncology [facility] [address] [facility] [place] [phone] Abena Xiong [address] [place] [address] 02/10/2024 1:00 PM EDT Office Visit Family Medicine [address] [place] [phone] Kahlil Mooney [address] [place] [address] 04/05/2024 1:20 PM EDT Office Visit Dermatology [address] [place] [address] Melanie Frank PA-C [address] [place] [address] [place] [address] 07/23/2024 3:30 PM EST Office Visit Nephrology [address] [place] [address] Valery Urena PA-C [address] [place] [address] 08/17/2024 1:40 PM EST Office Visit Family Medicine [address] [place] [phone] Jasson Denney MD [address] [place] [address] [place] [address] Scheduled Orders Name Type Priority Associated Diagnoses Orde r Schedule CEA Lab Routine Colonic mass Malignant neoplasm of ascending colon (HCC) Expected: 11/25/2023, Expires: 11/24/2024 CT ABD/PELVIS WO IV CONTRAST - W ORAL CONTRAST Medical Imaging Routine Colonic mass Expected: 11/25/2023, Expires: 12/24/2024 Scheduled Procedures Name Priority Associated Diagnoses Date/Ti me COLONOSCOPY FLEXIBLE PROXIMA L DIAGNOSTIC Iron deficiency anemia 11/25/2023 11:28 AM EDT ESOPHAGOGASTRODUODENOSCOPY ( EGD), FLEXIBLE, TRANSORAL, DIAGNOSTIC Iron deficiency anemia 11/25/2023 11:28 AM EDT Scheduled Referrals Name Type Priority Associated Diagnoses [...] Additional history exists CKD PHOS USE SMARTSET 91329 09/29/202409/14, 09/01/2023, 07/25/2022, Additional history exists Albumin/Creatinine Ratio 09/30/202409/30/2 024, 06/30/2023, 07/25/2022, Additional history exists CKD HGB USE SMARTSET 94082 10/12/202410/12, 09/30/2023, 09/30/2023, Additional history exists O2 [...] this encounter Medical Devices Implanted Type Area Shale Planer Operator Helper Device Identifier Shelf Expiration Date Model / Serial / Lot [place] Excluder Aaa Endoprothesis System-07/07/2019 Implanted:07/07/19 20 (Quantity not on file) Graft Description:Multiple implant s from system on same day [id number] Cordis Bx Velocity Cardiac Stent-06/02/2002 Implanted:06/02/20 02 (Quantity not on file) Stent CORDIS LEXA BX VELOCITY [id number] / / [id number] Cordis Bx Velocity Cardiac Stent-01/03/2003 Implanted:01/04/20 03 (Quantity not on file) Stent CORDIS LEXA VELOCITY [id number] / / [id number] documented as of this encounter Visit Diagnoses [...] patient or by statute hierarchy) Care Teams Secretarial Stenographer Relationship Specialty Start Date End Date Jasson Denney MD [address] [place] [address] [place] [phone] PCP - General Family Medicine 03/22/16 documented as of this encounter
--- OUTSIDE RECORDS SUMMARY | 2023-12-22 05:48 | External Medical Summary | Summary of Care ---
Author Name Unknown Organization [facility] Address [address] [place] [address] Phone [phone] Care Team Providers Care Therapy Manager Name Role Phone Jasson Denney MD Primary Care Provide r Reason for Referral * Evaluate & Treat - Unlimited Visits (Within 10 days (routine)) - Authorized Specialty Diagnoses / Procedures Referred By Contac t Referred To Contact Colon and Rectal Surgery / General Surgery Diagnoses Colonic mass Nitin Austin DO [address] [place] [address] Referral ID Status Reason Start Date Expiration Date Visits Requested Visits Authorized [id number] Authorized Specialty Services Required 11/25/2023 999 999 Question Answer What condition is the patient being seen for? Cancer Referral Priority Within 10 days (routine) Where should this appointment be scheduled? [facility] Comments Patient with a cecal and a mass at the hepatic flexure. Evaluation for colon resection * Precert (Within 10 days (routine)) - Authorized Specialty Diagnoses / Procedures Referred By Contac t Referred To Contact Radiology Diagnoses Colonic mass Procedures CT ABD/PELVIS WO IV CONTRAST - W ORAL CONTRAST Nitin Austin DO [address] [place] [address] Referral ID Status Reason Start Date Expiration Date V isits Requested Visits Authorized [id number] Authorized 11/25/2023 999 999 Encounter Details Date Type Department Care Team (Late st Contact Info) Description 11/25/2023 Telephone Gastroenterology, [facility] [address] [place] [address] Nitin Austin DO [address] [place] [address] Allergies Active Allergy Reactions Criticality Noted Date Comments Adhesive Tape 04/11/2006 Latex 06/06/2022 Other reaction(s): rash/itchy documented as of this encounter (statuses as of 11/25/2023) Medications Medication Sig Dispensed Refills Start Date End Date Status CENTRUM SILVER PO TABS one a day 0 08/11/2007 Suspended Polyethylene Glycol 3350 17 GM/SCOOP Oral Powder Take 17 g by mouth daily as needed for Constipation. Suspended cyclobenzaprine (FLEXERIL) 10 MG TabletIndications :Spasm of back muscles Take 1 Tab by mouth 3 times a day as needed for Muscle spasms. 30 Tab 1 09/30/2017 Suspended Additional Information Patient not taking.Reported on 09/24/2023 VENTOLIN HFA 108 (90 Base) MCG/ACT inhaler INHALE 2 PUFFS BY MOUTH EVERY 4 HOURS NEEDED FOR COUGH, SHORTNESS OF BREATH OR WHEEZING. 36 g 1 03/25/2018 Suspended Additional Information Acetaminophen 325 MG Oral Tablet Take 2 Tablets by mouth every 6 hours as needed for Pain. Suspended docusate sodium (COLACE) 100 MG Capsule Take 1 Capsule by mouth every night at bedtime. 07/12/2019 Suspended Phenylephrine-Martinez oa Butter 0.25-88.44 % Rectal Suppository Administer into the rectum as needed for Hemorrhoids. Suspended Nitroglycerin 0.4 MG Sublingual Tablet Sublingual (Nitrostat) Place 1 Tablet under the tongue as needed. 11/10/2020 Suspended Rosuvastatin Calcium 20 MG Oral Tablet (Crestor)Indicati ons:Dyslipidemia, goal LDL below 100 TAKE 1 TABLET BY MOUTH DAILY 90 Tablet 3 06/19/2023 Suspended Additional Information Patient taking differently:20 mg Oral Daily(AM), Takes at night, Reported on 11/18/2023 Iron-Vitamin C 65-125 MG Oral Tablet (Vitron C)Indications:Iro n deficiency anemia, unspecified iron deficiency anemia type Take 1 Tablet by mouth in the morning. 90 Tablet 1 07/21/2023 Suspended Additional Information Enalapril Maleate 10 MG Oral Tablet (Vasotec) TAKE 2 TABLETS BY MOUTH EVERY DAY 180 Tablet 1 09/01/2023 Suspended Additional Information Ezetimibe 10 MG Oral Tablet (Zetia)Indication s:Dyslipidemia, goal to be determined TAKE 1 TABLET BY MOUTH DAILY 90 Tablet 3 09/04/2023 Suspended Additional Information Clopidogrel Bisulfate 75 MG Oral Tablet (pLAVix)Indicatio ns:HTN, goal below 140/90 TAKE 1 TABLET BY MOUTH DAILY 90 Tablet 3 09/04/2023 Suspended Additional Information DULoxetine HCl 60 MG Oral Capsule Delayed Release Particles (Cymbalta)Indicat ions:Moderate episode of recurrent major depressive disorder (HCC),Chronic bilateral low back pain without sciatica Take 1 Capsule by mouth in the morning. 90 Capsule 1 09/30/2023 Suspended Additional Information Metoprolol Tartrate 25 MG Oral Tablet (Lopressor) Take 1 Tablet by mouth in the morning and 1 Tablet before bedtime. 60 Tablet 5 10/13/2023 Suspended Additional Information Pantoprazole Sodium 20 MG Oral Tablet Delayed Release (Protonix) Take 1 Tablet by mouth in the morning. 30 minutes before the first meal of the day. Do not crush, split or chew the tablet. 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 TAKE 1 TABLET BY MOUTH EVERY DAY IN THE MORNING 90 Tablet 1 11/13/2023 Suspended Additional Information documented as of this encounter (statuses as of 11/25/2023) Active Problems Problem Noted Date Diagnosed Date Colonic mass 11/25/2023 Iron deficiency anemia 08/12/2023 Encounter for antineoplastic chemotherapy 2022 Malignant neoplasm of left b reast in female, estrogen receptor positive 06/28/2022 Postherpetic neuralgia 06/28/2022 Hiatal hernia 08/07/2021 Schatzki's ring 08/07/2021 S/P angioplasty with stent 11/15/2020 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 11/15/2020 Cardiac murmur [...] mRNA, LNP-s, No Pre serve, 2-Dose Series ([employer]) 08/11/2020,07/21/2020 COVID-19, LNP-s, No Preserve , Dusty-sucrose, Ages 12+ (Pfizer) 02/05/2022,08/07/2021 COVID-19, MRNA-LNP, 23-24, P F, 30 MCG/0.3 mL, 12 YRS AND ABOVE, IM ([employer]) 05/13/2023 Covid-19, Mrna, Lnp-s, Pf, B ivalent, 30 Mcg, IM, 12 yrs and above ([employer]) 06/11/2022 Pneumococcal Conjugate Vacc, 13 Valent (Prevnar) [...] 2:00 PM EDT Telemedicine Interventional Pain Center, [facility] [address] [place] [address] [address] Sarah Richardson PA-C [address] [place] [address] 12/01/2023 11:10 AM EDT Laboratory Laboratory [facility]og[facility] Wang [address] [place] [phone] [place] [address] 12/05/2023 11:00 AM EDT [facility] [address] [place] [phone] Abena Xiong CRNP [address] [place] [address] 02/10/2024 1:00 PM EDT Office Visit Family Medicine [address] [place] [phone] Kahlil Mooney [address] [place] [address] 04/05/2024 1:20 PM EDT Office Visit Dermatology [address] [place] [address] Melanie Frank PA-C [address] [place] [address] [place] [address] 07/23/2024 3:30 PM EST Office Visit Nephrology [address] [place] [address] ZemaitisValery PA-C [address] [facility] [place] [address] 08/17/2024 1:40 PM EST Office Visit Family Medicine [address] [place] [phone] Jasson Denney MD [address] [place] [address] [place] [address] Scheduled Orders Name Type Priority Associated Diagnoses [...] 02/05/2022, Additional history exists HbA1c 03/20/2024 03/20/2023, 1010/2021, 11/01/2020, Additional history exists GFR 03/31/2024 09/30/2023, 020 06/2023, 06/30/2023, Additional history exists CKD PHOS USE SMARTSET 01764 09/29/2024 04/11/2023, 09/01/2023, 07/25/2022, Additional history exists Albumin/Creatinine Ratio 09/30/20242 024, 06/30/2023, 07/25/2022, Additional history exists CKD HGB USE SMARTSET 82754 10/12/202410/12, 09/30/2023, 09/30/2023, Additional history exists O2 [...] this encounter Medical Devices Implanted Type Area Home Supervisor Device Identifier Shelf Expiration Date Model / Serial / Lot [place] Excluder Aaa Endoprothesis System-07/07/2019 Implanted:07/07/19 20 (Quantity not on file) Graft Description:Multiple implant s from system on same day [id number] Cordis Bx Velocity Cardiac Stent-06/02/2002 Implanted:06/02/20 02 (Quantity not on file) Stent CORDIS [employer] BX VELOCITY [id number] / / [id number] Cordis Bx Velocity Cardiac Stent-01/03/2003 Implanted:01/04/20 03 (Quantity not on file) Stent CORDIS [employer] VELOCITY [id number] / / [id number] documented as of this encounter Visit Diagnoses [...] patient or by statute hierarchy) Care Teams Therapy Manager Relationship Specialty Start Date End Date Jasson Denney MD [address] [place] [address] [place] [address] PCP - General Family Medicine 03/22/16 documented as of this encounter
--- OUTSIDE RECORDS SUMMARY | 2023-12-22 05:48 | External Medical Summary | Summary of Care ---
Author Name Unknown Organization [facility] [address] [address] Phone [phone] Care Team Providers Care Monogram Machine Operator Name Role Phone Jasson Denney MD Primary Care Provide r Reason for Visit * Auth/Cert Specialty Diagnoses / Procedures Referred By Radha t Referred To Contact Diagnoses Iron deficiency anemia Iron deficiency anemia [D50.9] Procedures COLONOSCOPY, DIAGNOSTIC (RECTUM) EGD, FLEXIBLE, DIAGNOSTIC COLONOSCOPY FLEXIBLE PROXIMAL DIAGNOSTIC ESOPHAGOGASTRODUODENOSCOPY (EGD), FLEXIBLE, TRANSORAL, DIAGNOSTIC Nitin Austin DO [address] [place] [address] [facility] [address] [place] [phone] Referral ID Status Reason Start Date Expiration Date Visits Re quested Visits Authorized [id number] Encounter Details Date Type Department Care Team (Latest Contact Info) Description 11/25/2023 10:44 AM EDT - 11/25/2023 1:11 PM EDT Hospital Encounter [facility], Endoscopy [facility] [address] [place] [phone] Nitin Austin DO [address] [place] [address] Various: GICOLON,UGI Discharge Disposition: Home - Self Care Allergies Active Allergy Reactions Criticality Noted Date [...] mouth every night at bedtime. 07/12/2019 Active Phenylephrine-[place] Butter 0.25-88.44 % Rectal Suppository Administer into [...] 24 Hour (Imdur)Indications: Coronary artery disease involving lower el[place]a coronary artery of lower [place]a heart without angina pectoris TAKE 1 TABLET [...] stent 11/15/2020 Coronary artery disease invo lving lower [place]a heart without angina pectoris 11/15/2020 Cardiac murmur [...] mRNA, LNP-s, No Pre serve, 2-Dose Series (SOLEM Electronique) 08/11/2020,07/21/2020 COVID-19, LNP-s, No Preserve , Dusty-sucrose, Ages 12+ (Pfizer) 02/05/2022,08/07/2021 COVID-19, MRNA-LNP, 23-24, P F, 30 MCG/0.3 mL, 12 YRS AND ABOVE, IM ([facility]) 05/13/2023 Covid-19, Mrna, Lnp-s, Pf, B ivalent, [...] Sign Reading Time Taken Comments Blood Pressure 128/61 11/25/2023 12:23 PM EDT Pulse 78 11/25/2023 12:23 PM EDT Temperature 36.1 C (97 F) 11/25/2023 12:23 PM EDT Respiratory Rate 16 11/25/2023 12:23 PM EDT Oxygen Saturation 95% 11/25/2023 12:08 PM EDT Inhaled Oxygen Concentration - - Weight 72.6 kg (160 lb) 11/25/2023 11:17 AM EDT Height 170.2 cm (5' 7") 11/25/2023 11:17 AM EDT Body Mass Index 25.06 11/25/2023 11:17 AM EDT documented in this encounter H&P Notes * Nitin Austin, - 11/25/2023 11:09 AM EDT Endoscopy Pre-Procedure Assessment Name: Afua Rosenbaum Date: 11/25/2023 Time: 11:09 AM Procedure(s): Colonoscopy; with Indication(s) of evaluation of GI blood loss or iron- deficiency anemia Upper GI Endoscopy; with Indication(s) of evaluation and management of GI bleeding and/or iron-deficiency anemia Endoscopy Pre-Procedure Assessment: Prior to the procedure, the patient is identified. The patient's history, medications and allergieshave been reviewed. The patient is competent. The risks and benefits of the proposed procedure and the planned sedation have been discussed with the patient. All questions have been answered and informed consent for the procedure has been obtained. Prior to Admission medications Medication Sig Last Dose Discont. Isosorbide Mononitrate ER 30 MG Oral Tablet Extended Release 24 Hour (Imdur) TAKE 1 TABLET BY MOUTHEVERY DAY IN THE MORNING Past Week Pantoprazole Sodium 20 MG Oral Tablet Delayed Release (Protonix) Take 1 Tablet by mouth in the morning. 30 minutes before the first meal of the day. Do not crush, split or chew the tablet. 11/24/2023 Metoprolol Tartrate 25 MG Oral Tablet (Lopressor) Take 1 Tablet by mouth in the morning and 1 Tablet before bedtime. 11/24/2023 DULoxetine HCl 60 MG Oral Capsule Delayed Release Particles (Cymbalta) Take 1 Capsule by mouth in the morning. Past Week Clopidogrel Bisulfate 75 MG Oral Tablet (pLAVix) TAKE 1 TABLET BY MOUTH DAILY Past Week Ezetimibe 10 MG Oral Tablet (Zetia) TAKE 1 TABLET BY MOUTH DAILY Past Week Enalapril Maleate 10 MG Oral Tablet (Vasotec) TAKE 2 TABLETS BY MOUTH EVERY DAY 11/24/2023 Iron-Vitamin C 65-125 MG Oral Tablet (Vitron C) Take 1 Tablet by mouth in the morning. Past Month Rosuvastatin Calcium 20 MG Oral Tablet (Crestor) TAKE 1 TABLET BY MOUTH DAILY Patient taking differently: Take 1 Tablet by mouth in the morning. Takes at night . 11/24/2023 Acetaminophen 325 MG Oral Tablet Take 2 Tablets by mouth every 6 hours as needed for Pain. Past Week docusate sodium (COLACE) 100 MG Capsule Take 1 Capsule by mouth every night at bedtime. Past Week CENTRUM SILVER PO TABS one a day Past Week Nitroglycerin 0.4 MG Sublingual Tablet Sublingual (Nitrostat) Place 1 Tablet under the tongue as needed. Patient not taking: Reported on 11/18/2023 Not Taking Phenylephrine-[place]im[place]um Butter 0.25-88.44 % Rectal Suppository Administer into the rectum as needed forHemorrhoids. Over 30 Days VENTOLIN HFA 108 (90 Base) MCG/ACT inhaler INHALE 2 PUFFS BY MOUTH EVERY 4 HOURS NEEDED FOR COUGH, SHORTNESS OF BREATH OR WHEEZING. Over 30 Days cyclobenzaprine (FLEXERIL) 10 MG Tablet Take 1 Tab by mouth 3 times a day as needed for Muscle spasms. Patient not taking: Reported on 09/24/2023 Not Taking Polyethylene Glycol 3350 17 GM/SCOOP Oral Powder Take 17 g by mouth daily as needed for Constipation. Review of patient's allergies indicates: Allergen Reactions Adhesive Tape Latex Other reaction(s): rash/itchy Ht 1.702 m (5' 7") | Wt 72.6 kg (160 lb) | BMI 25.06 kg/m | BSA 1.85 m Physical Exam: Mental Status Examination: alert and oriented. Airway Examination: normal oropharyngeal airway and neck mobility. Respiratory Examination: clear to auscultation. CV Examination: systolic murmur. ASA Grade: III - A patient with severe systemic disease. Abdomen: soft Latest Reference Range & Units 09/30/23 09:59 Sodium 135 - 146 mmol/L 141 Potassium 3.5 - 5.1 mmol/L 4.5 Chloride 98 - 107 mmol/L 105 CO2 22 - 32 mmol/L 23 BUN 6 - 20 mg/dL 17 Creatinine 0.5 - 1.0 mg/dL 1.4 (H) Estimated Glomerular Filtration Rate >=60 mL/min 38 (L) Anion Gap 7 - 15 mmol/L 13 Glucose 70 - 120 mg/dL 124 (H) Calcium 8.4 - 10.2 mg/dL 9.5 Phosphorus 2.5 - 4.8 mg/dL 3.3 PTH 15 - 65 pg/mL 74 (H) PTH Rpt ! 25-Hydroxy Vitamin D >19 ng/mL 40 25-HYDROXY VITAMIN D Rpt CBC Rpt ! WBC 4.00 - 10.80 K/uL 7.04 RBC 3.85 - 5.15 M/uL 3.09 HGB 12.0 - 15.3 g/dL 8.5 (L) HCT 36.0 - 45.2 % 29.0 (L) MCV 81.5 - 97.5 fL 93.9 MCH 27.0 - 34.0 pg 27.5 MCHC 32.0 - 36.0 g/dL 29.3 RDW 11.5 - 15.5 % 16.4 PLT 140 - 400 K/uL 375 MPV 6.6 - 11.1 fL 9.8 CBC WITH WBC DIFFERENTIAL Rpt ! Absolute Neutrophils 1.80 - 7.70 K/uL 5.74 Absolute Lymphocytes 1.00 - 4.80 K/ul 0.66 (L) Absolute Monocytes 0.00 - 1.10 K/uL 0.34 Absolute Eosinophils 0.00 - 0.70 K/uL 0.21 Absolute Basophils 0.00 - 0.20 K/uL 0.06 IRON SCREEN, INCLUDING TIBC Rpt ! Iron 33 - 151 ug/dL 23 (L) Iron Binding Capacity 250 - 425 ug/dL 286 Transferrin Saturation Percent 15 - 55 % 8 (L) Ferritin 13 - 150 ng/mL 41 (H): Data is abnormally high (L): Data is abnormally low !: Data is abnormal Rpt: View report in Results Review for more information This patient has undergone a preprocedural evaluation. A determination has been made to proceed with the planned procedure under [facility] procedural guidelines and the [facility] Non-Emergent, Elective Medical Services and Treatment Recommendations (published on 09-21-19). The community and hospital prevalence of COVID-19 has been discussed as well as this patient's specific risks associated with SARS-CoV-19 infection. Based upon the clinical acuity and patient-specific care considerations, this procedure is deemed a Tier II - Intermediate acuity treatment or service with either progression or the threat of progressive disease related to the delay in treatment. Not providing the service has the potential for increasing morbidity or mortality. After reviewing the risks and benefits, the patient is deemed in satisfactory condition to undergo the procedure. The anesthesia plan is to use general anesthesia. We have discussed the risks and benefits of upper endoscopy to include bleeding, infection, perforation, discomfort, aspiration and need for follow-up studies. I have discussed the risks of colonoscopy to include bleeding, infection, perforation, pain, missedpolyps, and need for follow-up studies. Nitin Austin DO 11/25/2023 documented in this encounter Procedure Notes * Jasson Denney MD - 11/25/2023 11:17 AM EDTAssociated Order(s): UPPER GI ENDOSCOPY [facility] Patient Name: Afua Rosenbaum Procedure Date: 11/25/2023 11:17 AM Date of : 1940 Admit Type: Outpatient Note Status: Finalized Date of : 1940 Admit Type: Outpatient Age: 83 Room: Advanced Endo Gender: Female Note Status: Finalized Procedure: Upper GI endoscopy Indications: Iron deficiency anemia Providers: Nitin Austin DO (Doctor) Referring MD: Jasson Denney MD (Referring MD) Medicines: General Anesthesia Complications: No immediate complications. Estimated blood loss: Minimal. Procedure: Pre-Anesthesia Assessment: - Prior to the procedure, a History and Physical was performed, and patient medications, allergies and sensitivities were reviewed. The patient's tolerance of previous anesthesia was reviewed. - The risks and benefits of the procedure and the sedation options and risks were discussed with the patient. All questions were answered and informed consent was obtained. - Patient identification and proposed procedure were verified prior to the procedure by the physician, the nurse and the software engineer. The procedure was verified in the pre-procedure area in the procedure room. - Pre-procedure physical examination revealed no contraindications to sedation. - ASA Grade Assessment: III - A patient with severe systemic disease. - After reviewing the risks and benefits, the patient was deemed in satisfactory condition to undergo the procedure. - The anesthesia plan was to use general anesthesia. - Immediately prior to administration of medications, the patient was re- assessed for adequacy to receive sedatives. - The heart rate, respiratory rate, oxygen saturations, blood pressure, adequacy of pulmonary ventilation, and response to care were monitored throughout the procedure. - The physical status of the patient was re-assessed after the procedure. After obtaining informed consent, the endoscope was passed under direct vision. All instruments were visually inspected immediately before and after removal from the patient to ensure they are fully intact. Throughout the procedure, the patient's blood pressure, pulse, and oxygen saturations were monitored continuously. The [id number] Colonoscope ([id number]) was introduced through the mouth, and advanced to the third part of duodenum. The upper GI endoscopy was accomplished without difficulty. The patient tolerated the procedure well. Findings & Specimens: The lower third of the esophagus was moderately tortuous. A large hiatal hernia was found. The proximal extent of the gastric folds (end of tubular esophagus) was 31 cm from the incisors. The hiatal narrowing was 38 cm from the incisors. The Z-line was 31 cm from the incisors. Diffuse mild inflammation characterized by erythema and granularity was found in the entire examined stomach. Biopsies were taken with a cold forceps for histology. The pathology specimen was placed into Bottle Number 2. Estimated blood loss was minimal. The examined duodenum was normal. Biopsies were taken with a cold forceps for histology. The pathology specimen was placed into Bottle Number 1. Estimated blood loss was minimal. Impression: - Tortuous esophagus. - Large hiatal hernia. - Gastritis. Biopsied. - Normal examined duodenum. Biopsied. Recommendation: - Perform a colonoscopy today. - Await pathology results. Nitin Austin DO 11/25/2023 12:15:22 PM This report has been signed electronically. * Jasson Denney MD - 11/25/2023 11:15 AM EDTAssociated Order(s): COLONOSCOPY [facility] Patient Name: Afua Rosenbaum Procedure Date: 11/25/2023 11:15 AM Date of : 1940 Admit Type: Outpatient Note Status: Finalized Date of : 1940 Admit Type: Outpatient Age: 83 Room: Advanced [facility] Gender: Female Note Status: Finalized Procedure: Colonoscopy Indications: High risk colon cancer surveillance: Personal history of colonic polyps Providers: Nitin Austin DO (Doctor) Referring MD: Jasson Denney MD (Referring MD) Medicines: General Anesthesia Complications: No immediate complications. Estimated blood loss: Minimal. Procedure: Pre-Anesthesia Assessment: - Prior to the procedure, a History and Physical was performed, and patient medications, allergies and sensitivities were reviewed. The patient's tolerance of previous anesthesia was reviewed. - The risks and benefits of the procedure and the sedation options and risks were discussed with the patient. All questions were answered and informed consent was obtained. - Patient identification and proposed procedure were verified prior to the procedure by the physician, the nurse and the software engineer. The procedure was verified in the pre-procedure area in the procedure room. - Pre-procedure physical examination revealed no contraindications to sedation. - ASA Grade Assessment: III - A patient with severe systemic disease. - After reviewing the risks and benefits, the patient was deemed in satisfactory condition to undergo the procedure. - The anesthesia plan was to use general anesthesia. - Immediately prior to administration of medications, the patient was re- assessed for adequacy to receive sedatives. - The heart rate, respiratory rate, oxygen saturations, blood pressure, adequacy of pulmonary ventilation, and response to care were monitored throughout the procedure. - The physical status of the patient was re-assessed after the procedure. After I obtained informed consent, the scope was passed under direct vision. All instruments were visually inspected immediately before and after removal from the patient to ensure they are fully intact. Throughout the procedure, the patient's blood pressure, pulse, and oxygen saturations were monitored continuously. The patient tolerated the procedure well. The quality of the bowel preparation was good. The Colonoscope was introduced through the anus and advanced to the cecum, identified by palpation. The colonoscopy was extremely difficult due to multiple diverticula in the colon, significant looping, a tortuous colon and the patient's body habitus. Successful completion of the procedure was aided by using manual pressure, withdrawing and reinserting the scope and withdrawing the scope and replacing with the pediatric colonoscope. Findings & Specimens: Hemorrhoids were found on perianal exam. Internal hemorrhoids were found during retroflexion. The hemorrhoids were large. Multiple small and large-mouthed diverticula were found in the sigmoid colon and descending colon. A frond-like/villous and infiltrative partially obstructing large mass was found in the cecum. The mass was circumferential and the size diffcult to estimate (likely 5 cm). Biopsies were taken with a cold forceps for histology. The pathology specimen was placed into Bottle Number 3. Estimated blood losswas minimal. Area was tattooed with an injection of 3 mL of Spot (carbon black). An ulcerated partially obstructing large mass was found at the hepatic flexure (3 to 4 cm). The mass was circumferential. The mass measured three cm in length. No bleeding was present. Biopsies were taken with a cold forceps for histology. The pathology specimen was placed into Bottle Number 4. Area was tattooed with an injection of 3 mL of Alena ink. A 5 mm polyp was found in the descending colon. The polyp was sessile. The polyp was removed with a cold snare. Resection and retrieval were complete. The pathology specimen was placed into Bottle Number 5. Estimated blood loss was minimal. Impression: - Hemorrhoids found on perianal exam. [...] a surgeon at appointment to be scheduled. Nitin Austin DO 11/25/2023 12:13:21 PM This report has been signed electronically. documented in this encounter Nursing Notes * Ruma Miranda RN - 11/25/2023 12:40 PM EDT D/c criteria met, pt/son in post endo room waiting to speak to Dr. Austin. * Ruma Miranda RN - 11/25/2023 12:08 PM EDT Patient transferred to post endo s/p egd/colonoscopy. Patient awake/drowsy Respirations are even and unlabored on room air. NSR in the 70s on the monitor. Abdomen soft and non distended. Vital signs stable. * David Richard RN - 11/25/2023 12:07 PM EDT See anesthesia record for medication administered during procedure. David Richard RN Specimen(s) and location(s) verified with physician post procedure 12:07 PM David Richard RN Pre cleaning of scope at the bedside started by robotics technician. Mid abdominal pressure given per Dr. Nitin Austin to assist with scope advancement. Pt tolerated well * Elizabeth Hua RN - 11/25/2023 11:20 AM EDT Patient prepped and ready for procedure. Call tanner in reach. * Elizabeth Hua RN - 11/25/2023 10:48 AM EDT The following pt discharge instructions reviewed with pt prior to prodedure: No driving today. No alcohol today. No signing of legal documents. Rest as much as possible today and can return to normal activities tomorrow. No operating any heavy equipment today. Diet as tolerated. Pt verbalized understanding. documented in this encounter Plan of Treatment Upcoming Encounters Date Type Department Care Team (Late st Contact Info) Description 11/26/2023 2:00 PM EDT Telemedicine [facility] [address] [place] [phone] Sarah Richardson PA-C [address] [place] [address] 12/01/2023 11:10 AM EDT Laboratory Laboratory [address] [place] [phone] [place] [address] 12/05/2023 11:00 AM EDT Office Visit Hematology/Oncology [facility] [address] [facility] [address] [place] [phone] Abena Xiong CRNP [address] [place], [place] [address] [address] 02/10/2024 1:00 PM EDT Office Visit Family Medicine [address] [place] [phone] Kahlil Mooney CRNP [address] [place] [address] [place] [address] 04/05/2024 1:20 PM EDT Office Visit Dermatology [address] [place] [address] Melanie Frank PA-C [address] [place] [address] [place] [address] 07/23/2024 3:30 PM EST Office Visit Nephrology [address] [place] [address] Valery Urena PA-C [address] [place] [address] 08/17/2024 1:40 PM EST Office Visit Family Medicine [address] [place] [phone] Jasson Denney MD [address] [place] [address] [place] [phone] Pending Results Name Type Priority Associated Diagnoses Date /Time SURGICAL PATHOLOGY Pathology Routine Iron deficiency anemia 11/25/2023 12:08 PM EDT Scheduled Orders Name Type Priority Associated Diagnoses Orde r Schedule SURGICAL PATHOLOGY Pathology Routine Iron deficiency anemia Release Upon Ordering for 1 Occurrences starting 11/25/2023, 1 completed Health Maintenance Due Date Last Done Comments [...] Additional history exists CKD PHOS USE SMARTSET 17503 09/29/202409/14, 09/01/2023, 07/25/2022, Additional history exists Albumin/Creatinine Ratio 09/30/20242 024, 06/30/2023, 07/25/2022, Additional history exists CKD HGB USE SMARTSET 77090 10/12/202410/12, 09/30/2023, 09/30/2023, Additional history exists O2 [...] this encounter Medical Devices Implanted Type Area Wastewater Treatment Plant Operator Device Identifier Shelf Expiration Date Model / Serial / Lot Ariton Excluder Aaa Endoprothesis System-07/07/2019 Implanted:07/07/19 20 (Quantity not on file) Graft Description:Multiple implant s from system on same day [id number] Cordis Bx Velocity Cardiac Stent-06/02/2002 Implanted:06/02/20 02 (Quantity not on file) Stent CORDIS LEXA BX VELOCITY [id number] / / [id number] Cordis Bx Velocity Cardiac Stent-01/03/2003 Implanted:01/04/20 03 (Quantity not on file) Stent CORDIS LEXA VELOCITY [id number] / / [id number] documented as of this encounter Procedures Procedure Name Priority Date/Time Associated Diagnosis Comments UPPER GI ENDOSCOPY 11/25/2023 11 :17 AM EDT COLONOSCOPY 11/25/2023 11:15 AM EDT documented in this encounter Results * UPPER GI ENDOSCOPY (11/25/2023 11:17 AM EDT) 11/25/2023 11:1 7 AM EDT Narrative Procedure Note Jasson Denney MD - 11/25/2023 11:17 AM EDT [facility] Patient Name: Afua Rosenbaum Procedure Date: 11/25/2023 11:17 AM Date of : 1940 Admit Type: Outpatient Note Status:Finalized Date of : 1940 Admit Type: Outpatient Age: 83 Room: Advanced Endo Gender: Female Note Status: Finalized Procedure: Upper GI endoscopy Indications: Iron deficiency anemia Providers: Nitin Austin DO (Doctor) Referring MD: Jasson Denney MD (Referring MD) Medicines: General Anesthesia Complications: No immediate complications. Estimated blood loss:Minimal. Procedure: Pre-Anesthesia Assessment: - Prior to the procedure, a History and Physicalwas performed, and patient medications, allergies and sensitivities werereviewed. The patient's tolerance of previous anesthesia was reviewed. - The risks and benefits of the procedure and thesedation options and risks were discussed with the patient. All questions wereanswered and informed consent was obtained. - Patient identification and proposed procedurewere verified prior to the procedure by the physician, the nurse and the software engineer.The procedure was verified in the pre-procedure area in the procedure room. - Pre-procedure physical examination revealed nocontraindications to sedation. - ASA Grade Assessment: III - A patient with severesystemic disease. - After reviewing the risks and benefits, thepatient was deemed in satisfactory condition to undergo the procedure. - The anesthesia plan was to use generalanesthesia. - Immediately prior to administration ofmedications, the patient was re-assessed for adequacy to receive sedatives. - The heart rate, respiratory rate, oxygensaturations, blood pressure, adequacy of pulmonary ventilation, and response to care weremonitored throughout the procedure. - The physical status of the patient wasre-assessed after the procedure. After obtaining informed consent, the endoscope waspassed under direct vision. All instruments were visually inspected immediatelybefore and after removal from the patient to ensure they are fully intact. Throughout the procedure, the patient's bloodpressure, pulse, and oxygen saturations were monitored continuously. The [facility]-[id number] ([id number]) was introduced through the mouth, and advanced to the third partof duodenum. The upper GI endoscopy was accomplished without difficulty. The patienttolerated the procedure well. Findings & Specimens: The lower third of the esophagus was moderately tortuous. A large hiatal hernia was found. The proximal extent of the gastricfolds (end of tubular esophagus) was 31 cm from the incisors. The hiatal narrowing was 38 cm from theincisors. The Z-line was 31 cm from the incisors. Diffuse mild inflammation characterized by erythema and granularitywas found in the entire examined stomach. Biopsies were taken with a cold forceps for histology. Thepathology specimen was placed into Bottle Number 2. Estimated blood loss was minimal. The examined duodenum was normal. Biopsies were taken with a coldforceps for histology. The pathology specimen was placed into Bottle Number 1. Estimated blood loss wasminimal. Impression: - Tortuous esophagus. - Large hiatal hernia. - Gastritis. Biopsied. - Normal examined duodenum. Biopsied. Recommendation: - Perform a colonoscopy today. - Await pathology results. Nitin Austin DO 11/25/2023 12:15:22 PM This report has been signed electronically. Jasson Denney MD GASTRO UPPER * COLONOSCOPY (11/25/2023 11:15 AM EDT) 11/25/2023 11:1 5 AM EDT Narrative Procedure Note Jasson Denney MD - 11/25/2023 11:15 AM EDT [facility] Patient Name: Afua Rosenbaum Procedure Date: 11/25/2023 11:15 AM Date of : 1940 Admit Type: Outpatient Note Status:Finalized Date of : 1940 Admit Type: Outpatient Age: 83 Room: Advanced Endo Gender: Female Note Status: Finalized Procedure: Colonoscopy Indications: High risk colon cancer surveillance: Personalhistory of colonic polyps Providers: Nitin Austin DO (Doctor) Referring MD: Jasson Denney MD (Referring MD) Medicines: General Anesthesia Complications: No immediate complications. Estimated blood loss:Minimal. Procedure: Pre-Anesthesia Assessment: - Prior to the procedure, a History and Physicalwas performed, and patient medications, allergies and sensitivities werereviewed. The patient's tolerance of previous anesthesia was reviewed. - The risks and benefits of the procedure and thesedation options and risks were discussed with the patient. All questions wereanswered and informed consent was obtained. - Patient identification and proposed procedurewere verified prior to the procedure by the physician, the nurse and the software engineer.The procedure was verified in the pre-procedure area in the procedure room. - Pre-procedure physical examination revealed nocontraindications to sedation. - ASA Grade Assessment: III - A patient with severesystemic disease. - After reviewing the risks and benefits, thepatient was deemed in satisfactory condition to undergo the procedure. - The anesthesia plan was to use generalanesthesia. - Immediately prior to administration ofmedications, the patient was re-assessed for adequacy to receive sedatives. - The heart rate, respiratory rate, oxygensaturations, blood pressure, adequacy of pulmonary ventilation, and response to care weremonitored throughout the procedure. - The physical status of the patient wasre-assessed after the procedure. After I obtained informed consent, the scope waspassed under direct vision. All instruments were visually inspected immediatelybefore and after removal from the patient to ensure they are fully intact. Throughout the procedure, the patient's bloodpressure, pulse, and oxygen saturations were monitored continuously. The patient toleratedthe procedure well. The quality of the bowel preparation was good. The Colonoscope wasintroduced through the anus and advanced to the cecum, identified by palpation. Thecolonoscopy was extremely difficult due to multiple diverticula in the colon,significant looping, a tortuous colon and the patient's body habitus. Successfulcompletion of the procedure was aided by using manual pressure, withdrawing andreinserting the scope and withdrawing the scope and replacing with the pediatriccolonoscope. Findings & Specimens: Hemorrhoids were found on perianal exam. Internal hemorrhoids were found during retroflexion. The hemorrhoidswere large. Multiple small and large-mouthed diverticula were found in thesigmoid colon and descending colon. A frond-like/villous and infiltrative partially obstructing largemass was found in the cecum. The mass was circumferential and the size diffcult to estimate (likely 5 cm).Biopsies were taken with a cold forceps for histology. The pathology specimen was placed into BottleNumber 3. Estimated blood loss was minimal. Area was tattooed with an injection of 3 mL of Spot (carbonblack). An ulcerated partially obstructing large mass was found at thehepatic flexure (3 to 4 cm). The mass was circumferential. The mass measured three cm in length. Nobleeding was present. Biopsies were taken with a cold forceps for histology. The pathology specimen was placedinto Bottle Number 4. Area was tattooed with an injection of 3 mL of Alena ink. A 5 mm polyp was found in the descending colon. The polyp wassessile. The polyp was removed with a cold snare. Resection and retrieval were complete. The pathologyspecimen was placed into Bottle Number 5. Estimated blood loss was minimal. Impression: - Hemorrhoids found on perianal exam. - Internal hemorrhoids. - Moderate diverticulosis in the sigmoid colon andin the descending colon. 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 Biopsied. Tattooed. - Likely malignant partially obstructing tumor atthe hepatic flexure. Biopsied. Tattooed. - One 5 mm polyp in the descending colon, removedwith a cold snare. Resected and retrieved. Recommendation: - The patient will be observed post-procedure,until all discharge criteria are met. - Advance diet as tolerated today. - Await pathology results. - Perform CT scan (computed tomography) of theabdomen with contrast at appointment to be scheduled. - Refer to a surgeon at appointment to bescheduled. Nitin Austin DO 11/25/2023 12:13:21 PM This report has been signed electronically. Jasson Denney MD GASTRO LOWER documented in this encounter Visit Diagnoses Diagnosis Iron deficiency anemia Iron deficiency anemia, unspecified documented in this encounter Administered Medications Inactive Administered Medications - up to 3 most recent administrations Medication Order MAR Action Action Date Dose Rate Site Acetaminophen (Tylenol) tab 650 mg 650 mg, Oral, PRN Pain, Mild, Starting on Fri11/25/23 at 1216, Until Fri11/25/23 at 1711, For 1 dose, Maximum of 4 grams (4000 mg) per day., Post-op isolyte-S pH 7.4 infusion Intravenous, at 100 mL/hr, Plasma-LYTE 148, isolyte-S, and isolyte-S pH 7.4 are considered equivalent - including for MAR barcode scanning., CONTINUOUS, Starting on Fri11/25/23 at 1130, Until Fri11/25/23 at 1711, Pre-Op Continue from Pre-Op 11/25/2023 12:06 PM EDT documented in this encounter Active and Recently Administered Medications Times are shown in EDT. Continuous Medication Order 11/23/2023 11/24/2023 11/25/2023 isolyte-S pH 7.4 infusion Intravenous, at 100 mL/hr, Plasma-LYTE 148, isolyte-S, and isolyte-S pH 7.4 are considered equivalent - including for MAR barcode scanning., CONTINUOUS, Starting on Fri11/25/23 at 1130, Until Fri11/25/23 at 1711, Pre-Op 1119 (Incomplete - P rovider: Elizabeth Hua RN)1206 (Continue from Pre-Op - Provider: Abena Laughlin CRNA) PRN Medication Order 11/23/2023 11/24/2023 11/25/2023 Acetaminophen (Tylenol) tab 650 mg 650 mg, Oral, PRN Pain, Mild, Starting on Fri11/25/23 at 1216, Until Fri11/25/23 at 1711, For 1 dose, Maximum of 4 grams (4000 mg) per day., Post-op documented in this encounter Advance Directives * [...] patient or by statute hierarchy) Care Teams Monogram Machine Operator Relationship Specialty Start Date End Date Jasson Denney MD [address] [place] [address] [place] [phone] PCP - General Family Medicine 03/22/16 documented as of this encounter
--- OUTSIDE RECORDS SUMMARY | 2023-12-22 05:48 | External Medical Summary | Summary of Care ---
Author Name Unknown Organization [facility] Address [address] [facility] [address] Phone [phone] Care Team Providers Care Delinquent Tax Collector Name Role Phone Jasson Denney MD Primary Care Provide r Reason for Visit * Reason Comments IV Therapy Venofer. 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 TAKE 1 TABLET BY MOUTH EVERY DAY IN THE MORNING 90 Tablet 1 05/30/2023 4 Discontinued documented as of this encounter (statuses as of 11/23/2023) Active Problems Problem Noted Date Diagnosed Date Iron deficiency anemia 08/12/2023 Encounter for antineoplastic chemotherapy 2022 Malignant neoplasm of left b reast in female, estrogen receptor positive 06/28/2022 Postherpetic neuralgia 06/28/2022 Hiatal hernia 08/07/2021 Schatzki's ring 08/07/2021 S/P angioplasty with stent 11/15/2020 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 Patient arrived for 3/4 venofer infusion with no acute complaints. PIV established. Safety and Risk for Injury Patient will remain free from injury. Ensure appropriate safety devices are available. Provide and maintain safe environment. documented in this encounter Plan of Treatment Upcoming Encounters Date Type Department Care Team (Latest Contact Info) Description 11/25/2023 2:00 PM EDT Hospital Encounter ENDO [facility], Endoscopy Room [facility] [address] [place] [phone] Nitin Austin, [address] [place] [address] 11/25/2023 2:00 PM EDT - 11/25/2023 3:00 PM EDT Surgery ENDO [facility], Endoscopy Room [facility] [address] [place] [phone] Nitin Austin, [address] [place] [address] COLONOSCOPY FLEXIBLE PROXIMAL DIAGNOSTIC 11/26/2023 2:00 PM EDT Telemedicine Interventional Pain Center, [facility] [address] [place] [address] Sarah Richardson PA-C [address] [place] [address] 12/01/2023 11:10 AM EDT Laboratory Laboratory [address] [place] [phone] [facility] [address] [place] [address] 12/05/2023 11:00 AM EDT Office Visit Hematology/Oncolog y [facility] Daria [place] [place] [phone] Abena Xiong CRNP [address] [facility] [place] [address] 02/10/2024 1:00 PM EDT Office Visit Family Medicine [address] [place] [phone] Kahlil Mooney CRNP [address] [place] [address] [place] [address] 04/05/2024 1:20 PM EDT Office Visit Dermatology [address] [place] [address] Melanie Frank PA-C [address] [place] [address] [place] [address] 07/23/2024 3:30 PM EST Office Visit Nephrology [address] [place] [address] Valery Urena PA-C [address] [place] [address] 08/17/2024 1:40 PM EST Office Visit Family Medicine [address] [place] [phone] Jasson Denney MD [address] [place] [address] [place] [address] Scheduled Procedures Name Priority Associated Diagnoses Date/Ti [...] Additional history exists CKD PHOS USE SMARTSET 17584 09/29/202409/14, 09/01/2023, 07/25/2022, Additional history exists Albumin/Creatinine Ratio 09/30/202409/30/2 024, 06/30/2023, 07/25/2022, Additional history exists CKD HGB USE SMARTSET 24593 10/12/202410/12, 09/30/2023, 09/30/2023, Additional history exists O2 [...] this encounter Medical Devices Implanted Type Area Box Stacker Device Identifier Shelf Expiration Date Model / Serial / Lot [place] Excluder Aaa Endoprothesis System-07/07/2019 Implanted:07/07/19 20 (Quantity not on file) Graft Description:Multiple implant s from system on same day [id number] Cordis Bx Velocity Cardiac Stent-06/02/2002 Implanted:06/02/20 02 (Quantity not on file) Stent CORDIS LEXA BX VELOCITY [id number] / / [id number] Cordis Bx Velocity Cardiac Stent-01/03/2003 Implanted:01/04/20 03 (Quantity not on file) Stent CORDIS LEXA VELOCITY [id number] / / [id number] documented as of this encounter Visit Diagnoses [...] IV Piggyback, ONCE, 1 dose, On Radha 10/23/23 at 1615, Administer over 90 Minutes Start Infusion 10/23/2023 2:40 PM EDT 300 mg 193.33 mL/hr NSS infusion 500 mL, Intravenous, at 50 mL/hr, CONTINUOUS, Starting on Radha 10/23/23 at 1545, Until Radha 10/23/23 at 2027 Start Infusion 10/23/2023 2:40 PM EDT 500 mL 50 mL/hr documented [...] patient or by statute hierarchy) Care Teams Delinquent Tax Collector Relationship Specialty Start Date End Date Jasson Denney MD [address] [place] [address] [place] [address] PCP - General Family Medicine 03/22/16 documented as of this encounter
--- OUTSIDE RECORDS SUMMARY | 2023-12-22 05:48 | External Medical Summary | Summary of Care ---
Author Name Unknown Organization [facility] Address [address] [facility] [address] Phone [phone] Care Team Providers Care Medical Assembly Name Role Phone Jasson Denney MD Primary Care Provide r Reason for Visit * Reason Comments IV Therapy Venofer Encounter Details Date Type Department Care Team (Latest Contact Info) Description 10/29/2023 1:00 PM EDT Hem/Onc Treatment Hematology/Oncology Treatment, [address] [phone] Daria, Chair [address] [place] [address] Iron deficiency anemia, unspecified iron deficiency anemia type* Allergies Active Allergy Reactions Criticality Noted Date Comments Adhesive Tape 04/11/2006 Latex 06/06/2022 Other reaction(s): rash/itchy documented as of this encounter (statuses as of 10/29/2023) Medications Medication Sig Dispensed Refills Start Date [...] every night at bedtime. 0 07/12/2019 Active Phenylephrine-Browns Butter 0.25-88.44 % Rectal Suppository Administer into the rectum as needed for Hemorrhoids. 0 Active Nitroglycerin 0.4 MG Sublingual Tablet Sublingual (Nitrostat) Place 1 Tablet under the tongue as needed. 0 11/10/2020 Active Isosorbide Mononitrate ER 30 MG Oral Tablet Extended Release 24 Hour (Imdur)Indications: Coronary artery disease involving nikolski coronary artery of nikolski heart without angina pectoris TAKE 1 TABLET [...] as of this encounter (statuses as of 10/29/2023) Active Problems Problem Noted Date Diagnosed Date Iron deficiency anemia 08/12/2023 Encounter for antineoplastic chemotherapy 2022 Malignant neoplasm of left b reast in female, estrogen receptor positive 06/28/2022 Postherpetic neuralgia 06/28/2022 Hiatal hernia 08/07/2021 Schatzki's ring 08/07/2021 S/P angioplasty with stent 11/15/2020 Coronary artery disease invo lving nikolski heart without angina pectoris 11/15/2020 Cardiac murmur [...] as of this encounter (statuses as of 10/29/2023) Resolved Problems Problem Noted Date Diagnosed Date [...] as of this encounter (statuses as of 10/29/2023) Immunizations Name Administration Dates Next Due COVID-19 mRNA, LNP-s, No Pre serve, 2-Dose Series ([place]asuni) 08/11/2020,07/21/2020 COVID-19, LNP-s, No Preserve , Dusty-sucrose, [...] Care Team (Latest Contact Info) Description 11/25/2023 2:15 PM EDT Hospital Encounter ENDO [facility], Endoscopy Room [facility] [address] [place] [phone] Nitin Austin, DO [address] [place] [address] 11/25/2023 2:15 PM EDT - 11/25/2023 3:00 PM EDT Surgery ENDO [facility], Endoscopy Room [facility] [address] [place] [phone] Nitin Austin DO [address] [place] [address] COLONOSCOPY FLEXIBLE PROXIMAL DIAGNOSTIC 11/26/2023 2:00 PM EDT Telemedicine Interventional Pain Center, [facility] [address] [place] [address] Sarah Richardson PA-C [address] [place] [address] 12/01/2023 11:10 AM EDT Laboratory Laboratory [address] [place] [phone] [facility] [address] [place] [address] 12/05/2023 11:00 AM EDT Office Visit Hematology/Oncolog y [facility] [place] [address] [facility] [place] [phone] Abena Xiong [address] [place] [address] 02/10/2024 1:00 PM EDT Office Visit Family Medicine [address] [place] [phone] Kahlil Mooney [address] [place] [address] 04/05/2024 1:20 PM EDT Office Visit Dermatology [address] [place] [address] Melanie Frank PA-C [address] [place] [address] [place] [address] 07/23/2024 3:30 PM EST Office Visit Nephrology [address] [place] [address] ZemaValery sanchez PA-C [address] [facility] [place] [address] 08/17/2024 1:40 PM EST Office Visit Family Medicine [address] [place] [phone] Jasson Denney MD [address] [place] [address] [place] [address] Scheduled Procedures Name Priority Associated Diagnoses Date/Ti [...] Additional history exists CKD PHOS USE SMARTSET 55828 09/29/202409/14, 09/01/2023, 07/25/2022, Additional history exists Albumin/Creatinine Ratio 09/30/2024 024, 06/30/2023, 07/25/2022, Additional history exists CKD HGB USE SMARTSET 61561 10/12/202410/12, 09/30/2023, 09/30/2023, Additional history exists O2 [...] this encounter Medical Devices Implanted Type Area Certified Forklift Operator Device Identifier Shelf Expiration Date Model / Serial / Lot [place] Excluder Aaa Endoprothesis System-07/07/2019 Implanted:07/07/19 20 (Quantity not on file) Graft Description:Multiple implant s from system on same day [id number] Cordis Bx Velocity Cardiac Stent-06/02/2002 Implanted:06/02/20 02 (Quantity not on file) Stent CORDIS LEXA BX VELOCITY [id number] / / [id number] Cordis Bx Velocity Cardiac Stent-01/03/2003 Implanted:01/04/20 03 (Quantity not on file) Stent CORDIS LEXA VELOCITY [id number] / / [id number] documented as of this encounter Visit Diagnoses [...] ONCE PRN Other, Hypersensitivity Reaction, Starting on Fri10/29/23 at 1308, Until Radha 10/30/23 at 1307, For 24 hours EPINEPHrine 1 MG/ML inj 0.3 mg 0.3 mg, Intramuscular, ONCE PRN Other, Hypersensitivity Reaction or Anaphylaxis, Starting on Fri10/29/23 at 1308, Until Radha 10/30/23 at 1307, For 24 hours hEParin 100 UNIT/ML Lock Flush inj 500 Units 500 Units (5 mL), IV Lock, PRN Other, IV Flush, Starting on Fri10/29/23 at 1308, Until Radha 10/30/23 at 1307, For 24 hours, Do not flush if lock, PICC, or central line not in place; IV infusing or unable to flush. Hydrocortisone Sod Suc (PF) (Solu-Cortef) inj 100 mg 100 mg, IV Push, ONCE PRN Other, Hypersensitivity Reaction, Starting on Fri10/29/23 at 1308, Until Radha 10/30/23 at 1307, For 24 hours NSS infusion 500 mL, Intravenous, at 50 mL/hr, CONTINUOUS, Starting on Fri10/29/23 at 1415, Until Radha 10/30/23 at 0014 Start Infusion 10/29/2023 1:09 PM EDT 500 mL 50 mL/hr oxygen GAS Inhalation, OXYGEN, First dose on Fri10/29/23 at 1600, Until Discontinued, Device/Managed by: Low [...] Push, PRN Other, IV Flush, Starting on Fri10/29/23 at 1308, Until Radha 10/30/23 at 1307, For 24 hours, Do not flush if [...] 1:09 PM EDT 300 mg 193.33 mL/hr documented [...] the patient have Health Care Power of Patient Information Coordinator? No Healthcare Agents on File Name Relationship Healthcare Agent Relationship Communication Gus Rosenbaum Jr. Adult Child Health Care R epresentative (appointed verbally by patient or by statute hierarchy) Care Teams Medical Assembly Relationship Specialty Start Date End Date Jasson Denney MD [address] [place] [address] [place] [address] PCP - General Family Medicine 03/22/16 documented as of this encounter
--- OUTSIDE RECORDS SUMMARY | 2023-12-22 05:48 | External Medical Summary | Summary of Care ---
Author Name Unknown Organization [facility] Address [address] [facility] [place] [address] Phone [phone] Care Team Providers Care Nurse Supervisor Name Role Phone Jasson Denney MD Primary Care Provide r Reason for Visit * Reason Comments Infusion Venofer 07/20 Encounter Details Date Type Department Care Team (Latest Contact Info) Description 10/16/2023 1:30 PM EDT Hem/Onc Treatment Hematology/Oncology Treatment, [address] [phone] Daria, Chair 8 Hem Onc Scene [address] [place] [address] Iron deficiency anemia, unspecified iron deficiency anemia type* Allergies Active Allergy Reactions Criticality Noted Date Comments Adhesive Tape 04/11/2006 Latex 06/06/2022 Other reaction(s): rash/itchy documented as of this encounter (statuses as of 10/16/2023) Medications Medication Sig Dispensed Refills Start Date [...] every night at bedtime. 0 07/12/2019 Active Phenylephrine-[place] Butter 0.25-88.44 % Rectal Suppository Administer into the rectum as needed for Hemorrhoids. 0 Active Nitroglycerin 0.4 MG Sublingual Tablet Sublingual (Nitrostat) Place 1 Tablet under the tongue as needed. 0 11/10/2020 Active Isosorbide Mononitrate ER 30 MG Oral Tablet Extended Release 24 Hour (Imdur)Indications: Coronary artery disease involving [place] coronary artery of [place] heart without angina pectoris TAKE 1 TABLET [...] as of this encounter (statuses as of 10/16/2023) Active Problems Problem Noted Date Diagnosed Date Iron deficiency anemia 08/12/2023 Encounter for antineoplastic chemotherapy 2022 Malignant neoplasm of left b reast in female, estrogen receptor positive 06/28/2022 Postherpetic neuralgia 06/28/2022 Hiatal hernia 08/07/2021 Schatzki's ring 08/07/2021 S/P angioplasty with stent 11/15/2020 Coronary artery disease invo lving [place] heart without angina pectoris 11/15/2020 Cardiac murmur [...] as of this encounter (statuses as of 10/16/2023) Resolved Problems Problem Noted Date Diagnosed Date [...] as of this encounter (statuses as of 10/16/2023) Immunizations Name Administration Dates Next Due COVID-19 mRNA, LNP-s, No Pre serve, 2-Dose Series ([email or web address]) 08/11/2020,07/21/2020 COVID-19, LNP-s, No Preserve , Dusty-sucrose, Ages 12+ (Pfizer) 02/05/2022,08/07/2021 COVID-19, MRNA-LNP, 23-24, P F, 30 MCG/0.3 mL, 12 YRS AND ABOVE, IM ([employer]-Comirnaty) 05/13/2023 Covid-19, Mrna, Lnp-s, Pf, B ivalent, [...] Sign Reading Time Taken Comments Blood Pressure 118/52 10/16/2023 1:03 PM EDT Pulse 72 10/16/2023 1:03 PM EDT Temperature 36.6 C (97.9 F) 10/16/2023 1:03 PM ED T Respiratory Rate 18 10/16/2023 1:03 PM EDT Oxygen Saturation 94% 10/16/2023 1:03 PM EDT Inhaled Oxygen Concentration - - Weight - - Height - - Body Mass Index - - documented in this encounter Nursing Notes * Clara Cardenas LPN - 10/16/2023 2:46 PM EDT Patient completed IV therapy. IV access was disconnected, site was cleaned and bandaged. Patient was discharged in stable condition. * Lynnette Joaquin LPN - 10/16/2023 1:04 PM EDT 1240: Pt arrived for Venofer 07/20. PIV in RFA. Pt tolerated well. VSS. No complaints at this time. documented in this encounter Plan of Treatment Upcoming Encounters Date Type Department Care Team (Latest Contact Info) Description 10/23/2023 2:30 PM EDT Hem/Onc Treatment Hematology/Oncolog y Treatment, [address] [place] [phone] Daria, Chair [address] [place] [address] 10/30/2023 2:30 PM EDT Hem/Onc Treatment Hematology/Oncolog y Treatment, [address] [place] [phone] 11/25/2023 2:15 PM EDT Hospital Encounter ENDO [facility], Endoscopy Room [facility] [address] [place] [phone] Nitin Austin, DO [address] [place] [address] 11/25/2023 2:15 PM EDT - 11/25/2023 3:00 PM EDT Surgery ENDO [facility], Endoscopy Room [facility] [address] [place] [phone] Nitin Austin, DO [address] [place] [address] COLONOSCOPY FLEXIBLE PROXIMAL DIAGNOSTIC 11/26/2023 2:00 PM EDT Telemedicine Interventional Pain Center, [facility] [address] [place] [address] Sarah Richardson PA-C [address] [place] [address] 12/01/2023 11:10 AM EDT Laboratory Laboratory [address] [place] [phone] [facility] [address] [place] [address] 12/05/2023 11:00 AM EDT Office Visit Hematology/Oncolog y [facility] [place] [address] [place] [phone] Abena Xiong CRNP [address] [place] [address] [place] [address] 02/10/2024 1:00 PM EDT Office Visit Family Medicine [address] [place] [phone] Kahlil Mooney [address] [place] [address] 04/05/2024 1:20 PM EDT Office Visit Dermatology [address] [place] [address] Melanie Frank PA-C [address] [place] [address] [place] [address] 07/23/2024 3:30 PM EST Office Visit Nephrology [address] [place] [address] Valery Urena PA-C [address] [place] [address] 08/17/2024 1:40 PM EST Office Visit Family [address] [place] [phone] Jasson Denney MD [address] [place] [address] [place] [address] Scheduled Procedures Name Priority Associated Diagnoses Date/Ti [...] VERIFIED BY PFT 01/02/2018 HbA1c 03/20/2024 03/20/2023, 1010/2021, 11/01/2020, Additional history exists GFR 03/31/2024 09/30/2023, 020 06/2023, 06/30/2023, Additional history exists CKD PHOS USE SMARTSET 63860 09/29/202409/14, 09/01/2023, 07/25/2022, Additional history exists Albumin/Creatinine Ratio 09/30/202409/30/2 024, 06/30/2023, 07/25/2022, Additional history exists CKD HGB USE SMARTSET 62604 10/12/202410/12, 09/30/2023, 09/30/2023, Additional history exists O2 ASSESSMENT COMPLETED IN PAST YEAR FOR COPD 10/12/2024 10/13/2023 DXA Scan 05/31/2026 05/31/2019, 12/09/2006 Pneumococcal Vaccine: [...] encounter Medical Devices Implanted Type Area Certified Pest Control Technician Device Identifier Shelf Expiration Date Model / Serial / Lot [place] Excluder Aaa Endoprothesis System-07/07/2019 Implanted:07/07/19 20 (Quantity not on file) Graft Description:Multiple implant s from system on same day [id number] Cordis Bx Velocity Cardiac Stent-06/02/2002 Implanted:06/02/20 02 (Quantity not on file) Stent CORDIS LEXA BX VELOCITY [id number] / / [id number] Cordis Bx Velocity Cardiac Stent-01/03/2003 Implanted:01/04/20 03 (Quantity not on file) Stent CORDIS LEXA VELOCITY [id number] / / [id number] documented as of this encounter Visit Diagnoses [...] ONCE PRN Other, Hypersensitivity Reaction, Starting on Radha 10/16/23 at 1246, Until Fri10/17/23 at 1245, For 24 hours EPINEPHrine 1 MG/ML inj 0.3 mg 0.3 mg, Intramuscular, ONCE PRN Other, Hypersensitivity Reaction or Anaphylaxis, Starting on Radha 10/16/23 at 1246, Until Fri10/17/23 at 1245, For 24 hours hEParin 100 UNIT/ML Lock Flush inj 500 Units 500 Units (5 mL), IV Lock, PRN Other, IV Flush, Starting on Radha 10/16/23 at 1246, Until Fri10/17/23 at 1245, For 24 hours, Do not flush if lock, PICC, or central line not in place; IV infusing or unable to flush. Hydrocortisone Sod Suc (PF) (Solu-Cortef) inj 100 mg 100 mg, IV Push, ONCE PRN Other, Hypersensitivity Reaction, Starting on Fri10/16/23 at 1246, Until Fri10/17/23 at 1245, For 24 hours NSS infusion 500 mL, Intravenous, at 50 mL/hr, CONTINUOUS, Starting on Radha 10/16/23 at 1400, Until Fri10/16/23 at 2359 Start Infusion 10/16/2023 12:46 PM EDT 500 mL 50 mL/hr oxygen GAS Inhalation, OXYGEN, First dose on Radha 10/16/23 at 1600, Until Discontinued, Device/Managed by: Low [...] Push, PRN Other, IV Flush, Starting on Fri10/16/23 at 1246, Until Fri10/17/23 at 1245, For 24 hours, Do not flush if lock, PICC, or central line not in place; IV infusing or unable to flush. Inactive Administered Medications - up to 3 most recent administrations Medication Order MAR Action Action Date Dose Rate Site Iron Sucrose (Venofer) 300 mg in NSS 250 mL ivpb 300 mg, IV Piggyback, ONCE, 1 dose, On Fri10/16/23 at 1430, Administer over 90 Minutes Start Infusion 10/16/2023 12:46 PM EDT 300 mg 193.33 mL/hr documented [...] the patient have Health Care Power of Bevel Gear Generator Operator? No Healthcare Agents on File Name Relationship Healthcare Agent Relationship Communication Gus Rosenbaum Jr. Adult Child Health Care R epresentative (appointed verbally by patient or by statute hierarchy) Care Teams Nurse Supervisor Relationship Specialty Start Date End Date Jasson Denney MD [address] [place] [address] [place] [id number] PCP - General Family Medicine 03/22/16 documented as of this encounter
--- OUTSIDE RECORDS SUMMARY | 2023-12-22 05:48 | External Medical Summary | Summary of Care ---
Author Name Unknown Organization [facility] Address [address] [facility] [address] Phone [phone] Care Team Providers Care Railway Traction Line Worker Name Role Phone Jasson Denney MD Primary Care Provide r Reason for Visit * Reason Comments Infusion Venofer 07/20 Encounter Details Date Type Department Care Team (Latest Contact Info) Description 10/16/2023 1:30 PM EDT Hem/Onc Treatment Hematology/Oncology Treatment, [address] [phone] Daria, Chair 8 Hem Onc Scene [address] [place] [address] Iron deficiency anemia, unspecified iron deficiency anemia type* Allergies Active Allergy Reactions Criticality Noted Date Comments Adhesive Tape 04/11/2006 Latex 06/06/2022 Other reaction(s): rash/itchy documented as of this encounter (statuses as of 11/24/2023) Medications Medication Sig Dispensed Refills Start Date [...] 24 Hour (Imdur)Indicatio ns:Coronary artery disease involving ven[place] ira coronary artery of [place] heart without angina pectoris TAKE 1 TABLET BY MOUTH EVERY DAY IN THE MORNING 90 Tablet 1 05/30/2023 4 Discontinued documented as of this encounter (statuses as of 11/24/2023) Active Problems Problem Noted Date Diagnosed Date Iron deficiency anemia 08/12/2023 Encounter for antineoplastic chemotherapy 2022 Malignant neoplasm of left b reast in female, estrogen receptor positive 06/28/2022 Postherpetic neuralgia 06/28/2022 Hiatal hernia 08/07/2021 Schatzki's ring 08/07/2021 S/P angioplasty with stent 11/15/2020 Coronary artery disease invo lving venetie ira heart without angina pectoris 11/15/2020 Cardiac [...] as of this encounter (statuses as of 11/24/2023) Resolved Problems Problem Noted Date Diagnosed Date [...] as of this encounter (statuses as of 11/24/2023) Immunizations Name Administration Dates Next Due COVID-19 mRNA, LNP-s, No Pre serve, 2-Dose Series ([employer]) 08/11/2020,07/21/2020 COVID-19, LNP-s, No Preserve , Dusty-sucrose, Ages 12+ (Pfizer) 02/05/2022,08/07/2021 COVID-19, MRNA-LNP, 23-24, P F, 30 MCG/0.3 mL, 12 YRS AND ABOVE, IM ([employer]-Comirnaty) 05/13/2023 Covid-19, Mrna, Lnp-s, Pf, B ivalent, [...] EDT Hospital Encounter ENDO [facility], Endoscopy Room [facility] [address] [address] [place] [phone] Nitin Austin, DO [address] [place] [address] 11/25/2023 2:00 PM EDT - 11/25/2023 3:00 PM EDT Surgery ENDO OSS, Endoscopy Room [facility] [address] [address] [place] [phone] Nitin Austin, DO [address] [place] [address] COLONOSCOPY FLEXIBLE PROXIMAL DIAGNOSTIC 11/26/2023 2:00 PM EDT Telemedicine Interventional Pain Center, [facility] [address] [place] [address] Sarah Richardson PA-C [address] [place] [address] 12/01/2023 11:10 AM EDT Laboratory Laboratory [address] [place] [phone] [facility] [address] [place] [address] 12/05/2023 11:00 AM EDT [facility] [employer] [facility] [address] [facility] [place] [phone] Abena Xiong CRNP [address] [place] [address] [place] [address] 02/10/2024 1:00 PM EDT Office Visit Family Medicine [address] [place] [phone] Kahlil Mooney [address] [place] [address] 04/05/2024 1:20 PM EDT Office Visit Dermatology [address] [place] [address] Melanie Frank PA-C [address] [place] [address] [place] [address] 07/23/2024 3:30 PM EST Office Visit Nephrology [address] [place] [address] ZemaValery sanchez PA-C [address] [facility] [place] [address] 08/17/2024 1:40 PM EST Office Visit Family [address] [place] [phone] Jasson Denney MD [address] [place] [address] [place] [address] Scheduled Procedures Name Priority Associated Diagnoses Date/Ti [...] Additional history exists CKD PHOS USE SMARTSET 90655 09/29/202409/14, 09/01/2023, 07/25/2022, Additional history exists Albumin/Creatinine Ratio 09/30/20242 024, 06/30/2023, 07/25/2022, Additional history exists CKD HGB USE SMARTSET 21592 10/12/202410/12, 09/30/2023, 09/30/2023, Additional history exists O2 [...] this encounter Medical Devices Implanted Type Area Target Man Device Identifier Shelf Expiration Date Model / Serial / Lot [place] Excluder Aaa Endoprothesis System-07/07/2019 Implanted:07/07/19 20 (Quantity not on file) Graft Description:Multiple implant s from system on same day [id number] Cordis Bx Velocity Cardiac Stent-06/02/2002 Implanted:06/02/20 02 (Quantity not on file) Stent CORDIS LEXA BX VELOCITY [id number] / / [id number] Cordis Bx Velocity Cardiac Stent-01/03/2003 Implanted:01/04/20 03 (Quantity not on file) Stent CORDIS LEXA VELOCITY [id number] / / [id number] documented as of this encounter Visit Diagnoses [...] IV Piggyback, ONCE, 1 dose, On Radha 10/16/23 at 1430, Administer over 90 Minutes Start Infusion 10/16/2023 12:46 PM EDT 300 mg 193.33 mL/hr NSS infusion 500 mL, Intravenous, at 50 mL/hr, CONTINUOUS, Starting on Radha 10/16/23 at 1400, Until Radha 10/16/23 at 1847 Start Infusion 10/16/2023 12:46 PM EDT 500 mL 50 mL/hr documented [...] patient or by statute hierarchy) Care Teams Railway Traction Line Worker Relationship Specialty Start Date End Date Jasson Denney MD [address] [place] [address] [place] [address] PCP - General Family Medicine 03/22/16 documented as of this encounter
--- OUTSIDE RECORDS SUMMARY | 2023-12-22 05:48 | External Medical Summary | Summary of Care ---
Author Name Unknown Organization [facility] Address [address] [facility] [place] [address] Phone [phone] Care Team Providers Care Application Operations Engineer Name Role Phone Jasson Denney MD Primary Care Provide r Reason for Visit * Reason Comments eRx-Medication Refill Encounter Details Date Type Department Care Team (Late st Contact Info) Description 11/11/2023 Refill Family Medicine [address] [phone] Jasson Denney MD [address] [place] [address] [place] [phone] Coronary artery disease involving mary's igloo coronary artery of mary's ig[place] heart without angina pectoris Allergies Active Allergy Reactions Criticality Noted Date Comments Adhesive Tape 04/11/2006 Latex 06/06/2022 Other reaction(s): rash/itchy documented as of this encounter (statuses as of 11/13/2023) Medications Medication Sig Dispensed Refills Start Date [...] 24 Hour (Imdur)Indicatio ns:Coronary artery disease involving [place]ary[place] coronary artery of mary[place] heart without angina pectoris TAKE 1 TABLET BY MOUTH EVERY DAY IN THE MORNING 90 Tablet 1 11/13/2023 Active Isosorbide Mononitrate ER 30 MG Oral Tablet Extended Release 24 Hour (Imdur)Indicatio ns:Coronary artery disease involving mary[place] ig[place] coronary artery of mary[place] ig[place] heart without angina pectoris TAKE 1 TABLET BY MOUTH EVERY DAY IN THE MORNING 90 Tablet 1 05/30/2023 4 Discontinued documented as of this encounter (statuses as of 11/13/2023) Active Problems Problem Noted Date Diagnosed Date Iron deficiency anemia 08/12/2023 Encounter for antineoplastic chemotherapy 2022 Malignant neoplasm of left b reast in female, estrogen receptor positive 06/28/2022 Postherpetic neuralgia 06/28/2022 Hiatal hernia 08/07/2021 Schatzki's ring 08/07/2021 S/P angioplasty with stent 11/15/2020 Coronary artery disease invo lving mary's igloo heart without angina pectoris 11/15/2020 Cardiac murmur [...] Quit 2020 Dyslipidemia, goal LDL below 70 05/25/2009 Overview: Per Lipid Taxonomy. HTN, goal below 130/80 04/21/2009 Overview: Modified per HTN Taxonomy. Chronic ischemic heart disease Overview: with 2 stents documented as of this encounter (statuses as of 11/13/2023) Resolved Problems Problem Noted Date Diagnosed Date [...] as of this encounter (statuses as of 11/13/2023) Immunizations Name Administration Dates Next Due COVID-19 mRNA, LNP-s, No Pre serve, 2-Dose Series ([employer]) 08/11/2020,07/21/2020 COVID-19, LNP-s, No Preserve , Dusty-sucrose, Ages 12+ ([employer]) 02/05/2022,08/07/2021 COVID-19, MRNA-LNP, 23-24, P F, 30 MCG/0.3 mL, 12 YRS AND ABOVE, IM ([facility]) 05/13/2023 Covid-19, Mrna, Lnp-s, Pf, B ivalent, 30 Mcg, IM, 12 yrs and above ([employer] Group) 06/11/2022 Pneumococcal Conjugate Vacc, 13 Valent (Prevnar) [...] encounter Miscellaneous Notes * Telephone Encounter - Esperanza Ha, [facility] - 11/13/2023 7:42 AM EDTSigned Prescriptions: Disp Refills Isosorbide Mononitrate ER 30 MG Oral Table*90 Tab*1 Sig: TAKE 1 TABLET BY MOUTH EVERY DAY IN THE MORNINGAuthorizing Provider: JASSON DENNEY User:ESPERANZA HA documented in this encounter Plan of Treatment Upcoming Encounters Date Type Department Care Team (Latest Contact Info) Description 11/25/2023 2:00 PM EDT Hospital Encounter ENDO [facility], Endoscopy Room [facility] [address] [place] [phone] Nitin Austin, DO [address] [place] [address] 11/25/2023 2:00 PM EDT - 11/25/2023 3:00 PM EDT Surgery ENDO [facility], Endoscopy Room [facility] [address] [place] [phone] Nitin Austin, DO [address] [place] [address] COLONOSCOPY FLEXIBLE PROXIMAL DIAGNOSTIC 11/26/2023 2:00 PM EDT Telemedicine Interventional Pain Center, [facility] [address] [place] [address] Sarah Richardson PA-C [address] [place] [address] 12/01/2023 11:10 AM EDT Laboratory Laboratory [address] [place] [phone] [address] [place] [address] 12/05/2023 11:00 AM EDT Office Visit Hematology/Oncolog y [facility] [place] [address] [place] [phone] Abena Xiong CRNP [address] [place] [address] 02/10/2024 1:00 PM EDT Office Visit Family Medicine [address] [place] [phone] Kahlil Mooney CRNP [address] [place] [address] [place] [address] 04/05/2024 1:20 PM EDT Office Visit Dermatology [address] [place] [address] Melanie Frank PA-C [address] [place] [address] [place] [address] 07/23/2024 3:30 PM EST Office Visit Nephrology [address] [place] [address] ZemaValery sanchez PA-C [address] [place] [address] 08/17/2024 1:40 PM EST Office Visit Family Medicine [address] [place] [phone] Jasson Denney MD [address] [place] [address] [place] [address] Scheduled Procedures Name Priority Associated Diagnoses Date/Ti [...] Additional history exists CKD PHOS USE SMARTSET 83844 09/29/202409/14, 09/01/2023, 07/25/2022, Additional history exists Albumin/Creatinine Ratio 09/30/2024 024, 06/30/2023, 07/25/2022, Additional history exists CKD HGB USE SMARTSET 55420 10/12/202410/12, 09/30/2023, 09/30/2023, Additional history exists O2 [...] this encounter Medical Devices Implanted Type Area [place] Device Identifier Shelf Expiration Date Model / Serial / Lot [place] Excluder Aaa Endoprothesis System-07/07/2019 Implanted:07/07/19 20 (Quantity not on file) Graft Description:Multiple implant s from system on same day [id number] Cordis Bx Velocity Cardiac Stent-06/02/2002 Implanted:06/02/20 02 (Quantity not on file) Stent CORDIS LEXA BX VELOCITY [id number] / / [id number] Cordis Bx Velocity Cardiac Stent-01/03/2003 Implanted:01/04/20 03 (Quantity not on file) Stent CORDIS LEXA VELOCITY [id number] / / [id number] documented as of this encounter Visit Diagnoses Diagnosis Coronary artery disease involving mary's igloo coronary artery of mary's igloo heart without angina pectoris Iron deficiency anemia Iron deficiency anemia, unspecified documented in this encounter Advance Directives [...] patient or by statute hierarchy) Care Teams Application Operations Engineer Relationship Specialty Start Date End Date Jasson Denney MD [address] [place] [address] [place] [address] PCP - General Family Medicine 03/22/16 documented as of this encounter
--- OUTSIDE RECORDS SUMMARY | 2023-12-22 05:49 | External Medical Summary | Summary of Care ---
Author Name Unknown Organization [facility] Address [address] [facility] [address] Phone [phone] Care Team Providers Care Revenue Cycle Analyst Name Role Phone Jasson Denney MD Primary Care Provide r Reason for Visit * Reason Onset Date Comments Test Results Lab 10/01/2023 Encounter Details Date Type Department Care Team (Late st Contact Info) Description 10/01/2023 Telephone Hematology/Oncology [facility] [place] [address] [facility] [address] Abena Xiong CRNP [address] [place] [address] Test Results Lab Allergies Active Allergy Reactions Criticality Noted Date Comments Adhesive Tape 04/11/2006 Latex 06/06/2022 Other reaction(s): rash/itchy documented as of this encounter (statuses as of 10/01/2023) Medications Medication Sig Dispensed Refills Start Date [...] every night at bedtime. 0 07/12/2019 Active Phenylephrine-[place] Butter 0.25-88.44 % Rectal Suppository Administer into the rectum as needed for Hemorrhoids. 0 Active Nitroglycerin 0.4 MG Sublingual Tablet Sublingual (Nitrostat) Place 1 Tablet under the tongue as needed. 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 11/15/2020 Cardiac murmur [...] as of this encounter (statuses as of 10/01/2023) Resolved Problems Problem Noted Date Diagnosed Date [...] as of this encounter (statuses as of 10/01/2023) Immunizations Name Administration Dates Next Due COVID-19 mRNA, LNP-s, No Pre serve, 2-Dose Series (Phybridge) 08/11/2020,07/21/2020 COVID-19, LNP-s, No Preserve , Dusty-sucrose, Ages 12+ (Phybridge) 02/05/2022,08/07/2021 COVID-19, MRNA-LNP, 23-24, P F, 30 MCG/0.3 mL, 12 YRS AND ABOVE, IM ([facility]) 05/13/2023 Covid-19, Mrna, Lnp-s, Pf, B ivalent, 30 Mcg, IM, 12 yrs and above (Phybridge) 06/11/2022 Pneumococcal Conjugate Vacc, 13 Valent (Prevnar) [...] encounter Miscellaneous Notes * Addendum Note - Abena Xiong CRNP - 10/01/2023 2:47 PM EDTAddended by: ABENA XIONG on: 10/01/2023 02:47 PM Modules accepted: Orders * Telephone Encounter - Abena Xiong CRNP - 10/01/2023 2:47 PM EDT SCP placed for Venofer. Colonoscopy currently scheduled 11/25/23. * Telephone Encounter - Ty Alonso RN - 10/01/2023 9:23 AM EDT I called and spoke with the patient, she isn't thrilled by the idea but is willing to have the infusions if she must. She states that she has bright red blood in her toilette after having a bowel movement, states thisis intermittent and does have a history of internal/external hemorrhoids. Abena- please advise/place orders. * Telephone Encounter - Abena Xiong CRNP - 10/01/2023 8:48 AM EDT Results for orders placed or performed in visit on 09/30/23 IRON SCREEN, INCLUDING TIBC Result Value Ref Range Iron 23 (L) 33 - 151 ug/dL Iron Binding Capacity 286 250 - 425 ug/dL Transferrin Saturation Percent 8 (L) 15 - 55 % FERRITIN Result Value Ref Range Ferritin 41 13 - 150 ng/mL 25-HYDROXY VITAMIN D Result Value Ref Range 25-Hydroxy Vitamin D 40 >19 ng/mL PTH Result Value Ref Range PTH 74 (H) 15 - 65 pg/mL RENAL FUNCTION PANEL Result Value Ref Range BUN 17 6 - 20 mg/dL Creatinine 1.4 (H) 0.5 - 1.0 mg/dL Estimated Glomerular Filtration Rate 38 (L) >=60 mL/min Sodium 141 135 - 146 mmol/L Potassium 4.5 3.5 - 5.1 mmol/L Chloride 105 98 - 107 mmol/L CO2 23 22 - 32 mmol/L Anion Gap 13 7 - 15 mmol/L Glucose 124 (H) 70 - 120 mg/dL Calcium 9.5 8.4 - 10.2 mg/dL Albumin 3.7 (L) 3.8 - 5.0 g/dL Phosphorus 3.3 2.5 - 4.8 mg/dL CBC Result Value Ref Range WBC 7.04 4.00 - 10.80 K/uL RBC 3.09 3.85 - 5.15 M/uL HGB 8.5 (L) 12.0 - 15.3 g/dL HCT 29.0 (L) 36.0 - 45.2 % MCV 93.9 81.5 - 97.5 fL MCH 27.5 27.0 - 34.0 pg MCHC 29.3 32.0 - 36.0 g/dL RDW 16.4 11.5 - 15.5 % PLT 375 140 - 400 K/uL MPV 9.8 6.6 - 11.1 fL nRBCs 0 <=0 /100 WBCs DIFFERENTIAL, AUTOMATED Result Value Ref Range WBC 7.04 4.00 - 10.80 K/uL Neutrophils % 81.5 (H) 40.0 - 75.0 % Lymphocytes % 9.4 (L) 18.0 - 42.0 % Monocytes % 4.8 1.0 - 11.0 % Eosinophils % 3.0 0.0 - 6.0 % Basophils % 0.9 0.0 - 2.0 % Immature Granulocytes % 0.4 0.0 - 2.0 % Absolute Neutrophils 5.74 1.80 - 7.70 K/uL Absolute Lymphocytes 0.66 (L) 1.00 - 4.80 K/ul Absolute Monocytes 0.34 0.00 - 1.10 K/uL Absolute Eosinophils 0.21 0.00 - 0.70 K/uL Absolute Basophils 0.06 0.00 - 0.20 K/uL Absolute Immature Granulocytes 0.03 0.00 - 0.20 K/uL Hgb has declined to 8.5 despite oral iron therapy. Would highly recommend moving forward with IV iron therapy at this point. Please discuss with patient. If agreeable will place order. documented in this encounter Plan of Treatment Upcoming Encounters Date Type Department Care Team (Latest Contact Info) Description 10/13/2023 2:20 PM EDT Office Visit Nephrology [address] [place] [address] Maritza Parrish MD [address] [place] [address] 10/16/2023 11:00 AM EDT Imaging Radiology [address] [place] [address] 10/16/2023 3:30 PM EDT Office Visit Hematology/Oncolog y State Vickey Brandt [address] [place] [address] Abena Xiong CRNP [address] [place] [address] 11/25/2023 2:15 PM EDT Hospital Encounter ENDO [facility], Endoscopy Room [facility] [address] [place], [place] [address] Nitin Austin, DO [address] [place] [address] 11/25/2023 2:15 PM EDT - 11/25/2023 3:00 PM EDT Surgery ENDO [facility], Endoscopy Room [facility] [address] [place] [address] Nitin Austin, DO [address] [place] [address] COLONOSCOPY FLEXIBLE PROXIMAL DIAGNOSTIC 11/26/2023 2:00 PM EDT Telemedicine Interventional Pain Center, [facility] [address] [place] [address] Sarah Richardson PA-C [address] [place] [address] 02/10/2024 1:00 PM EDT Office Visit Family Medicine [address] [place] [phone] Kahlil Mooney CRNP [address] [place] [address] [place] [address] 04/05/2024 1:20 PM EDT Office Visit Dermatology [address] [place] [address] Melanie Frank PA-C [address] [place] [address] [place] [address] 08/17/2024 1:40 PM EST Office Visit Family Medicine [address] [place] [phone] Jasson Denney MD [address] [place] [address] [place] [address] Scheduled Procedures Name Priority Associated Diagnoses Date/Ti [...] 03/31/2024 09/30/2023, 06/2023, 06/30/2023, Additional history exists Albumin/Creatinine Ratio 06/30/2024 024, 07/25/2022, 08/07/2021, Additional history exists O2 ASSESSMENT COMPLETED IN PAST YEAR FOR COPD 08/12/2024 08/12/2023 CKD HGB USE SMARTSET 19034 09/29/202409/29, 09/30/2023, 09/01/2023, Additional history exists CKD PHOS USE SMARTSET 79237 09/29/2024 0411/2023, 09/01/2023, 07/25/2022, Additional history exists DXA Scan 05/31/2026 05/31/2019, [...] this encounter Medical Devices Implanted Type Area Squad Leader Device Identifier Shelf Expiration Date Model / Serial / Lot [place] Excluder Aaa Endoprothesis System-07/07/2019 Implanted:07/07/19 20 (Quantity not on file) Graft Description:Multiple implant s from system on same day [id number] Cordis Bx Velocity Cardiac Stent-06/02/2002 Implanted:06/02/20 02 (Quantity not on file) Stent CORDIS [place]EXA BX VELOCITY [id number] / / [id number] Cordis Bx Velocity Cardiac Stent-01/03/2003 Implanted:01/04/20 03 (Quantity not on file) Stent CORDIS [place]EXA VELOCITY [id number] / / [id number] documented as of this encounter Visit Diagnoses Diagnosis Iron deficiency anemia, unspecified iron deficiency anemia type- Primary Iron deficiency anemia Iron deficiency anemia, unspecified documented in this encounter Advance Directives Latest [...] the patient have Health Care Power of Leather Tooler? No Healthcare Agents on File Name Relationship Healthcare Agent Relationship Communication Gus Rosenbaum Jr. Adult Child Health Care R epresentative (appointed verbally by patient or by statute hierarchy) Care Teams Revenue Cycle Analyst Relationship Specialty Start Date End Date Jasson Denney MD [address] [place] [address] [place] [address] PCP - General Family Medicine 03/22/16 documented as of this encounter
--- OUTSIDE RECORDS SUMMARY | 2023-12-22 05:49 | External Medical Summary | Summary of Care ---
Author Name Unknown Organization [facility] Address [address] [facility] [place] [address] Phone [phone] Care Team Providers Care Mold Maker Name Role Phone Jasson Denney MD Primary Care Provide r Encounter Details Date Type Department Care Team (Late st Contact Info) Description 10/01/2023 Telephone Hematology/Oncology [facility] [place] [address] [facility] [address] Abena [facility]iong [facility] [address] [facility] [place] [address] Allergies Active Allergy Reactions Criticality Noted Date [...] every night at bedtime. 0 07/12/2019 Active Phenylephrine-[place] Butter 0.25-88.44 % Rectal Suppository Administer into the rectum as needed for Hemorrhoids. 0 Active Nitroglycerin 0.4 MG Sublingual Tablet Sublingual (Nitrostat) Place 1 Tablet under the tongue as needed. 0 11/10/2020 Active Isosorbide Mononitrate ER 30 MG Oral Tablet Extended Release 24 Hour (Imdur)Indications: Coronary artery disease involving oneida coronary artery of oneida heart without angina pectoris TAKE 1 TABLET [...] stent 11/15/2020 Coronary artery disease invo lving [place]ida heart without angina pectoris 11/15/2020 Cardiac murmur [...] mRNA, LNP-s, No Pre serve, 2-Dose Series (Get In) 08/11/2020,07/21/2020 COVID-19, LNP-s, No Preserve , Dusty-sucrose, Ages 12+ (Get In) 02/05/2022,08/07/2021 COVID-19, MRNA-LNP, 23-24, P F, 30 MCG/0.3 mL, 12 YRS AND ABOVE, IM ([employer]-Comirnaty) 05/13/2023 Covid-19, Mrna, Lnp-s, Pf, B ivalent, 30 Mcg, IM, 12 yrs and above (Get In) 06/11/2022 Pneumococcal Conjugate Vacc, 13 Valent (Prevnar) [...] encounter Miscellaneous Notes * Telephone Encounter - Tyrese Abena MING Newman - 10/01/2023 8:48 AM EDT Results for [...] 10/13/2023 2:20 PM EDT Office Visit Nephrology [address] [place] [address] Maritza Parrish MD [address] [place] [address] 10/16/2023 11:00 AM EDT Imaging Radiology [address] [place] [address] 10/16/2023 3:30 PM EDT Office Visit Hematology/Oncolog y [facility] [address] [place] [phone] Abena Xiong CRNP [address] [place] [address] 11/25/2023 2:15 PM EDT Hospital Encounter [facility]O [facility], Endoscopy Room [facility] [address] [place] [phone] Nitin Austin, DO [address] [place] [address] 11/25/2023 2:15 PM EDT - 11/25/2023 3:00 PM EDT Surgery [facility]O [facility], Endoscopy Room [facility] [address] [place] [address] Nitin Austin, DO [address] [place] [address] COLONOSCOPY FLEXIBLE PROXIMAL DIAGNOSTIC 11/26/2023 2:00 PM EDT Telemedicine Interventional Pain Center, [facility] [address] [place] [address] Sarah Richardosn PA-C [address] [place] [address] 02/10/2024 1:00 PM EDT Office Visit [address] [place] [phone] Kahlil Mooney CRNP [address] [place] [address] [place] [address] 04/05/2024 1:20 PM EDT Office Visit Dermatology [address] [place] [address] Melanie Frank PA-C [address] [place] [address] [place] [address] 08/17/2024 1:40 PM EST Office Visit [address] [place] [phone] Jasson Denney MD [address] [place] [address] [place] [address] Scheduled Procedures Name Priority Associated Diagnoses Date/Ti [...] 06/2023, 06/30/2023, Additional history exists Albumin/Creatinine Ratio 06/30/20242 024, 07/25/2022, 08/07/2021, Additional history exists O2 ASSESSMENT COMPLETED IN PAST YEAR FOR COPD 08/12/2024 08/12/2023 CKD HGB USE SMARTSET 93934 09/29/202409/29, 09/30/2023, 09/01/2023, Additional history exists CKD PHOS USE SMARTSET 64560 09/29/202409/14, 09/01/2023, 07/25/2022, Additional history exists DXA Scan [...] this encounter Medical Devices Implanted Type Area Lobby Attendant Device Identifier Shelf Expiration Date Model / Serial / Lot [place] Excluder Aaa Endoprothesis System-07/07/2019 Implanted:07/07/19 20 (Quantity not on file) Graft Description:Multiple implant s from system on same day [id number] Cordis Bx Velocity Cardiac Stent-06/02/2002 Implanted:06/02/20 02 (Quantity not on file) Stent CORDIS [place]EXA BX VELOCITY [id number] / / [id number] Cordis Bx Velocity Cardiac Stent-01/03/2003 Implanted:01/04/20 03 (Quantity not on file) Stent CORDIS [place]EX[place] VELOCITY [id number] / / [id number] documented as of this encounter Advance Directives [...] the patient have Health Care Power of Screening Representative? No Healthcare Agents on File Name Relationship Healthcare Agent Relationship Communication Gus Rosenbaum Jr. Adult Child Health Care R epresentative (appointed verbally by patient or by statute hierarchy) Care Teams Mold Maker Relationship Specialty Start Date End Date Jasson Denney MD [address] [place] [address] [place] [phone] PCP - General Family Medicine 03/22/16 documented as of this encounter
--- OUTSIDE RECORDS SUMMARY | 2023-12-22 05:49 | External Medical Summary | Summary of Care ---
Author Name Unknown Organization [facility] Address [address] [place] [address] Phone [phone] Care Team Providers Care Button Tufting Machine Operator Name Role Phone Jasson Denney MD Primary Care Provide r Encounter Details Date Type Department Care Team (Late st Contact Info) Description 10/01/2023 Orders Only Hematology/Oncology Treatment, [place] [address] [place] [address] Abena Xiong CRNP [address] [place] [address] Allergies Active Allergy Reactions Criticality Noted [...] every night at bedtime. 0 07/12/2019 Active Phenylephrine-[place] Butter 0.25-88.44 % Rectal Suppository Administer into the rectum as needed for Hemorrhoids. 0 Active Nitroglycerin 0.4 MG Sublingual Tablet Sublingual (Nitrostat) Place 1 Tablet under the tongue as needed. 0 11/10/2020 Active Isosorbide Mononitrate ER 30 MG Oral Tablet Extended Release 24 Hour (Imdur)Indications: Coronary artery disease involving paiute-shoshone coronary artery of paiute-shoshone heart without angina pectoris TAKE 1 TABLET BY MOUTH EVERY DAY IN THE MORNING 90 Tablet 1 05/30/2023 Active Atenolol 25 MG Oral Tablet (Tenormin)Jyotitio ns:HTN, goal below 140/90 TAKE 1 TABLET [...] stent 11/15/2020 Coronary artery disease invo lving paiute-shoshone heart without angina pectoris 11/15/2020 Cardiac murmur [...] mRNA, LNP-s, No Pre serve, 2-Dose Series (G[employer]) 08/11/2020,07/21/2020 COVID-19, LNP-s, No Preserve , Dusty-sucrose, Ages 12+ (Gimado) 02/05/2022,08/07/2021 COVID-19, MRNA-LNP, 23-24, P F, 30 MCG/0.3 mL, 12 YRS AND ABOVE, IM ([employer]-Comirnat) 05/13/2023 Covid-19, Mrna, Lnp-s, Pf, B ivalent, 30 Mcg, IM, 12 yrs and above (Gimado) 06/11/2022 Pneumococcal Conjugate Vacc, 13 Valent (Prevnar) [...] 10/13/2023 2:20 PM EDT Office Visit Nephrology [address] [place] [address] Maritza Parrish MD [address] [facility] [place] [address] 10/16/2023 11:00 AM EDT Imaging Radiology [address] [place] [address] 10/16/2023 3:30 PM EDT Office Visit Hematology/Oncolog y State Vickey Brandt [address] [place] [address] Abena Xiong CRNP [address] [place] [address] [place] [address] 11/25/2023 2:15 PM EDT Hospital Encounter [facility]O [facility], Endoscopy Room [facility] [address] [place] [phone] Nitin Austin, DO [address] [place] [address] 11/25/2023 2:15 PM EDT - 11/25/2023 3:00 PM EDT Surgery ENDO [facility], Endoscopy Room [facility] [address] [place] [phone] Nitin Austin, DO [address] [place] [address] COLONOSCOPY FLEXIBLE PROXIMAL DIAGNOSTIC 11/26/2023 2:00 PM EDT Telemedicine Interventional Pain Center, [facility] [address] [place] [address] Sarah Richardson PA-C [address] [place] [address] 02/10/2024 1:00 PM EDT Office Visit Family [address] [place] [phone] Kahlil Mooney [address] [place] [address] 04/05/2024 1:20 PM EDT Office Visit Dermatology [address] [place] [address] Melanie Frank PA-C [address] [place] [address] [place] [address] 08/17/2024 1:40 PM EST Office Visit Family [address] [place] [phone] Jasson Denney MD [address] [place] [address] [place] [address] Scheduled Procedures Name Priority [...] COPD 08/12/2024 08/12/2023 CKD HGB USE SMARTSET 64730 09/29/202409/29, 09/30/2023, 09/01/2023, Additional history exists CKD PHOS USE SMARTSET 36172 09/29/202409/14, 09/01/2023, 07/25/2022, Additional history exists DXA [...] this encounter Medical Devices Implanted Type Area Facility Maintenance Helper Device Identifier Shelf Expiration Date Model / Serial / Lot [place] Excluder Aaa Endoprothesis System-07/07/2019 Implanted:07/07/19 20 (Quantity not on file) Graft Description:Multiple implant s from system on same day [id number] Cordis Bx Velocity Cardiac Stent-06/02/2002 Implanted:06/02/20 02 (Quantity not on file) Stent CORDIS [place]EX[place] BX VELOCITY [id number] / / [id number] Cordis Bx Velocity Cardiac Stent-01/03/2003 Implanted:01/04/20 03 (Quantity not on file) Stent CORDIS [place]EX[place] VELOCITY [id number] / / [id number] documented as of this encounter Advance Directives [...] the patient have Health Care Power of Client Manager Large Law? No Healthcare Agents on File Name Relationship Healthcare Agent Relationship Communication Gus Rosenbaum Jr. Adult Child Health Care R epresentative (appointed verbally by patient or by statute hierarchy) Care Teams Button Tufting Machine Operator Relationship Specialty Start Date End Date Jasson Denney MD [address] [place] [address] [place] [phone] PCP - General Family Medicine 03/22/16 documented as of this encounter
--- OUTSIDE RECORDS SUMMARY | 2023-12-22 05:49 | External Medical Summary | Summary of Care ---
Author Name Unknown Organization [facility] Address [address] [facility] [place] [address] Phone [phone] Care Team Providers Care Client Application Support Engineer Name Role Phone Jasson Denney MD Primary Care Provide r Reason for Visit * Reason Comments Outpatient Testing Encounter Details Date Type Department Care Team (Late st Contact Info) Description 10/01/2023 1:00 PM EDT Laboratory Laboratory [address] [place] [phone] , Specimen Drop Off [address] [place] [address] Arrived Allergies Active Allergy Reactions Criticality Noted [...] every night at bedtime. 0 07/12/2019 Active Phenylephrine-[place] Butter 0.25-88.44 % Rectal Suppository Administer into the rectum as needed for Hemorrhoids. 0 Active Nitroglycerin 0.4 MG Sublingual Tablet Sublingual (Nitrostat) Place 1 Tablet under the tongue as needed. 0 11/10/2020 Active Isosorbide Mononitrate ER 30 MG Oral Tablet Extended Release 24 Hour (Imdur)Indications: Coronary artery disease involving ambler coronary artery of ambler heart without angina pectoris TAKE 1 TABLET [...] stent 11/15/2020 Coronary artery disease invo lving ambler heart without angina pectoris 11/15/2020 Cardiac murmur [...] mRNA, LNP-s, No Pre serve, 2-Dose Series ([place] [employer]) 08/11/2020,07/21/2020 COVID-19, LNP-s, No Preserve , Dusty-sucrose, Ages 12+ ([place]) 02/05/2022,08/07/2021 COVID-19, MRNA-LNP, 23-24, P F, 30 MCG/0.3 mL, 12 YRS AND ABOVE, IM ([facility]) 05/13/2023 Covid-19, Mrna, Lnp-s, Pf, B ivalent, 30 Mcg, IM, 12 yrs and above ([place]) 06/11/2022 Pneumococcal Conjugate Vacc, 13 Valent (Prevnar) [...] 10/13/2023 2:20 PM EDT Office Visit Nephrology [address] [place] [address] Maritza Parrish MD [address] [place] [address] 10/16/2023 11:00 AM EDT Imaging Radiology [address] [place] [address] 10/16/2023 3:30 PM EDT Office Visit Hematology/Oncolog y [place] Vickey Brandt [address] [place] [address] Abena Xiong CRNP [address] [place] [address] [place] [address] 11/25/2023 2:15 PM EDT Hospital Encounter ENDO [facility], Endoscopy Room [facility] [address] [place] [address] Nitin Austin, DO [address] [place] [address] 11/25/2023 2:15 PM EDT - 11/25/2023 3:00 PM EDT Surgery ENDO [facility], Endoscopy Room [facility] [address] [place] [phone] Nitin Austin, DO [address] [place] [address] COLONOSCOPY FLEXIBLE PROXIMAL DIAGNOSTIC 11/26/2023 2:00 PM EDT Telemedicine Interventional Pain Center, [facility] [address] [place] [address] Sarah Richardson PA-C [address] [place] [address] 02/10/2024 1:00 PM EDT [address] [phone] Kahlil Mooney CRNP [address] [place] [address] [place] [address] 04/05/2024 1:20 PM EDT Office Visit Dermatology [address] [place] [address] Melanie Frank PA-C [address] [place] [address] [place] [address] 08/17/2024 1:40 PM EST Office Visit Family [address] [place] [phone] Jasson Denney MD [address] [place] [address] [place] [address] Scheduled Procedures Name Priority Associated Diagnoses Date/Ti [...] COPD 08/12/2024 08/12/2023 CKD HGB USE SMARTSET 04766 09/29/202409/29, 09/30/2023, 09/01/2023, Additional history exists CKD PHOS USE SMARTSET 00884 09/29/202409/14, 09/01/2023, 07/25/2022, Additional history exists DXA [...] this encounter Medical Devices Implanted Type Area Account Development Associate Device Identifier Shelf Expiration Date Model / Serial / Lot [place] Excluder Aaa Endoprothesis System-07/07/2019 Implanted:07/07/19 20 (Quantity not on file) Graft Description:Multiple implant s from system on same day [id number] Cordis Bx Velocity Cardiac Stent-06/02/2002 Implanted:06/02/20 02 (Quantity not on file) Stent CORDIS LEXA BX VELOCITY [id number] / / [id number] Cordis Bx Velocity Cardiac Stent-01/03/2003 Implanted:01/04/20 03 (Quantity not on file) Stent CORDIS [place]EXA VELOCITY [id number] / / [id number] documented as of this encounter Advance Directives [...] the patient have Health Care Power of Poem Writer? No Healthcare Agents on File Name Relationship Healthcare Agent Relationship Communication Gus Rosenbaum Jr. Adult Child Health Care R epresentative (appointed verbally by patient or by statute hierarchy) Care Teams Client Application Support Engineer Relationship Specialty Start Date End Date Jasson Denney MD [address] [place] [address] [place] [phone] PCP - General Family Medicine 03/22/16 documented as of this encounter
--- OUTSIDE RECORDS SUMMARY | 2023-12-22 05:49 | External Medical Summary | Summary of Care ---
Author Name Unknown Organization [facility] Address [address] [place] [address] Phone [phone] Care Team Providers Care Chemical Inspector Name Role Phone Jasson Denney MD Primary Care Provide r Reason for Visit * Reason Onset Date Comments Scheduling 10/01/2023 Venofer Encounter Details Date Type Department Care Team (Late st Contact Info) Description 10/01/2023 Telephone Hematology/Oncology Treatment, [place] [address] [place] [address] Abena Xiong CRNP [address] [place] [address] Scheduling (Venofer) Allergies Active Allergy Reactions Criticality Noted Date Comments Adhesive Tape 04/11/2006 Latex 06/06/2022 Other reaction(s): rash/itchy documented as of this encounter (statuses as of 10/02/2023) Medications Medication Sig Dispensed Refills Start Date [...] every night at bedtime. 0 07/12/2019 Active Phenylephrine-[place] Butter 0.25-88.44 % Rectal Suppository Administer into the rectum as needed for Hemorrhoids. 0 Active Nitroglycerin 0.4 MG Sublingual Tablet Sublingual (Nitrostat) Place 1 Tablet under the tongue as needed. 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 TAKE 1 TABLET [...] as of this encounter (statuses as of 10/02/2023) Active Problems Problem Noted Date Diagnosed Date Iron deficiency anemia 08/12/2023 Encounter for antineoplastic chemotherapy 2022 Malignant neoplasm of left b reast in female, estrogen receptor positive 06/28/2022 Postherpetic neuralgia 06/28/2022 Hiatal hernia 08/07/2021 Schatzki's ring 08/07/2021 S/P angioplasty with stent 11/15/2020 Coronary artery disease invo lving inaja heart without angina pectoris 11/15/2020 Cardiac murmur [...] as of this encounter (statuses as of 10/02/2023) Resolved Problems Problem Noted Date Diagnosed Date [...] as of this encounter (statuses as of 10/02/2023) Immunizations Name Administration Dates Next Due COVID-19 mRNA, LNP-s, No Pre serve, 2-Dose Series (Satarii) 08/11/2020,07/21/2020 COVID-19, LNP-s, No Preserve , Dusty-sucrose, Ages 12+ (Pfizer) 02/05/2022,08/07/2021 COVID-19, MRNA-LNP, 23-24, P F, 30 MCG/0.3 mL, 12 YRS AND ABOVE, [facility] 05/13/2023 Covid-19, Mrna, Lnp-s, Pf, B ivalent, 30 Mcg, IM, 12 yrs and above (Satarii) 06/11/2022 Pneumococcal Conjugate Vacc, 13 Valent (Prevnar) [...] encounter Miscellaneous Notes * Telephone Encounter - Leni Salazar OSA - 10/02/2023 9:11 AM EDT Called pt and scheduled appts all 4 along with labs and it is aware * Telephone Encounter - Kriss Montalvo LPN - 10/01/2023 3:34 PM EDT Please schedule Venofer - 2 hour Weekly x 4 MING Altman please repeat cbc/diff, iron screen and ferritin one month after last infusion documented in this encounter Plan of Treatment Upcoming Encounters Date Type Department Care Team (Latest Contact Info) Description 10/09/2023 2:30 PM EDT Hem/Onc Treatment Hematology/Oncolog y Treatment, [place] [address] [facility] [place] [phone] 10/13/2023 2:20 PM EDT Office Visit Nephrology [address] [place] [address] Maritza Parrish MD 200 [facility] [place] [address] 10/16/2023 11:00 AM EDT Imaging Radiology [address] [place] [address] 10/16/2023 1:30 PM EDT Hem/Onc Treatment Hematology/Oncolog y Treatment, [address] [place] [phone] Daria, Chair 8 Hem Onc Scenery 200 [facility] [place] [address] 10/16/2023 3:30 PM EDT Office Visit Hematology/Oncolog y [place] Vickey Huff 200 [facility] [place] [phone] Abena Xiong, SITE FOREMAN [facility] [place] [address] 10/23/2023 2:30 PM EDT Hem/Onc Treatment Hematology/Oncolog y Treatment, [address] [place] [phone] Daria, Chair 2 Hem Onc Scenery [facility] [place] [address] 10/30/2023 2:30 PM EDT Hem/Onc Treatment Hematology/Oncolog y Treatment, [place] 200 [facility] [place] [phone] Daria, Chair 7 Hem Onc Scenery [address] [place] [address] 11/25/2023 2:15 PM EDT Hospital Encounter ENDO OSSC, Endoscopy Room [facility] [address] [place] [phone] Nitin Austin, DO [address] [place] [address] 11/25/2023 2:15 PM EDT - 11/25/2023 3:00 PM EDT Surgery ENDO OSSC, Endoscopy Room [facility] [address] [place] [phone] Nitin Austin, DO [address] [place] [address] COLONOSCOPY FLEXIBLE PROXIMAL DIAGNOSTIC 11/26/2023 2:00 PM EDT [facility] [address] [place] [address] Sarah Richardson PA-C [address] [place] [address] 12/01/2023 10:00 AM EDT Laboratory Laboratory [address] [place] [phone] [place], Lab [address] [place] [address] 02/10/2024 1:00 PM EDT Office Visit Family Medicine [address] [place] [phone] Kahlil Mooney CRNP [address] [place] [address] [place] [address] 04/05/2024 1:20 PM EDT Office Visit Dermatology [address] [place] [address] Melanie Frank PA-C [address] [place] [address] [place] [address] 08/17/2024 1:40 PM EST Office Visit Family Medicine [address] [place] [phone] Jasson Denney MD [address] [place] [address] [place] [address] Scheduled Orders Name Type Priority Associated Diagnoses Orde r Schedule CBC WITH WBC DIFFERENTIAL Lab STAT Iron deficiency anemia, unspecified iron deficiency anemia type Expected: 12/03/2023 (Approximate), Expires: 09/30/2024 FERRITIN Lab STAT Iron deficiency anemia, unspecified iron deficiency anemia type Expected: 12/03/2023 (Approximate), Expires: 09/30/2024 IRON SCREEN, INCLUDING TIBC Lab STAT Iron deficiency anemia, unspecified iron deficiency anemia type Expected: 12/03/2023 (Approximate), Expires: 09/30/2024 Scheduled Procedures Name Priority Associated Diagnoses Date/Ti [...] 03/31/2024 09/30/2023, 06/2023, 06/30/2023, Additional history exists O2 ASSESSMENT COMPLETED IN PAST YEAR FOR COPD 08/12/2024 08/12/2023 CKD HGB USE SMARTSET 50503 09/29/202409/29, 09/30/2023, 09/01/2023, Additional history exists CKD PHOS USE SMARTSET 26876 09/29/202409/14, 09/01/2023, 07/25/2022, Additional history exists Albumin/Creatinine Ratio 09/30/2024 024, 06/30/2023, 07/25/2022, Additional history exists DXA Scan 05/31/2026 [...] this encounter Medical Devices Implanted Type Area Kiss Mixer Device Identifier Shelf Expiration Date Model / Serial / Lot [place] Excluder Aaa Endoprothesis System-07/07/2019 Implanted:07/07/19 20 (Quantity not on file) Graft Description:Multiple implant s from system on same day [id number] Cordis Bx Velocity Cardiac Stent-06/02/2002 Implanted:06/02/20 02 (Quantity not on file) Stent CORDIS LEXA BX VELOCITY [id number] / / [id number] Cordis Bx Velocity Cardiac Stent-01/03/2003 Implanted:01/04/20 03 (Quantity not on file) Stent CORDIS LEXA VELOCITY [id number] / / [id number] documented as of this encounter Visit Diagnoses [...] the patient have Health Care Power of Health Management Consultant? No Healthcare Agents on File Name Relationship Healthcare Agent Relationship Communication Gus Rosenbaum Jr. Adult Child Health Care R epresentative (appointed verbally by patient or by statute hierarchy) Care Teams Chemical Inspector Relationship Specialty Start Date End Date Jasson Denney MD [address] [place] [address] [place] [phone] PCP - General Family Medicine 03/22/16 documented as of this encounter
--- OUTSIDE RECORDS SUMMARY | 2023-12-22 05:49 | External Medical Summary | Summary of Care ---
Author Name Unknown Organization [facility] [address] [facility] [address] Phone [phone] Care Team Providers Care Journey Lineman Name Role Phone Jasson Denney MD Primary Care Provide r Reason for Visit * Reason Comments Outpatient Testing Encounter Details Date Type Department Care Team (Late st Contact Info) Description 10/13/2023 3:40 PM EDT Laboratory Laboratory [address] [place] [phone] [place] [address] Arrived Allergies Active Allergy Reactions Criticality Noted Date Comments Adhesive Tape 04/11/2006 Latex 06/06/2022 Other reaction(s): rash/itchy documented as of this encounter (statuses as of 10/13/2023) Medications Medication Sig Dispensed Refills Start Date [...] every night at bedtime. 0 07/12/2019 Active Phenylephrine-[place] Butter 0.25-88.44 % Rectal Suppository Administer into the rectum as needed for Hemorrhoids. 0 Active Nitroglycerin 0.4 MG Sublingual Tablet Sublingual (Nitrostat) Place 1 Tablet under the tongue as needed. 0 11/10/2020 Active Isosorbide Mononitrate ER 30 MG Oral Tablet Extended Release 24 Hour (Imdur)Indications: Coronary artery disease involving kaibab coronary artery of kaibab heart without angina pectoris TAKE 1 TABLET [...] before bedtime. 60 Tablet 5 10/13/2023 Active documented as of this encounter (statuses as of 10/13/2023) Active Problems Problem Noted Date Diagnosed Date Iron deficiency anemia 08/12/2023 Encounter for antineoplastic chemotherapy 2022 Malignant neoplasm of left b reast in female, estrogen receptor positive 06/28/2022 Postherpetic neuralgia 06/28/2022 Hiatal hernia 08/07/2021 Schatzki's ring 08/07/2021 S/P angioplasty with stent 11/15/2020 Coronary artery disease invo lving kaibab heart without angina pectoris 11/15/2020 Cardiac murmur [...] as of this encounter (statuses as of 10/13/2023) Resolved Problems Problem Noted Date Diagnosed Date [...] as of this encounter (statuses as of 10/13/2023) Immunizations Name Administration Dates Next Due COVID-19 mRNA, LNP-s, No Pre serve, 2-Dose Series (Serveron) 08/11/2020,07/21/2020 COVID-19, LNP-s, No Preserve , Dusty-sucrose, Ages 12+ (Serveron) 02/05/2022,08/07/2021 COVID-19, MRNA-LNP, 23-24, P F, 30 MCG/0.3 mL, 12 YRS AND ABOVE, IM ([facility]) 05/13/2023 Covid-19, Mrna, Lnp-s, Pf, B ivalent, 30 Mcg, IM, 12 yrs and above (Serveron) 06/11/2022 Pneumococcal Conjugate Vacc, 13 Valent (Prevnar) [...] Care Team (Latest Contact Info) Description 10/16/2023 11:00 AM EDT Imaging Radiology [address] [place] [address] 10/16/2023 1:30 PM EDT Hem/Onc Treatment Hematology/Oncolog y Treatment, [place] [address] [place] [phone] Daria, Chair 8 Hem Onc Scene [address] [place] [address] 10/16/2023 3:30 PM EDT Office Visit Hematology/Oncolog y [place] Vickey Huff [address] [place] [phone] Abena Xiong CRNP [address] [place] [address] 10/23/2023 2:30 PM EDT Hem/Onc Treatment Hematology/Oncolog y Treatment, [place] 200 [facility] [place] [phone] Park, Chair 1 Hem Onc Scenery [facility] [place] [address] 10/30/2023 2:30 PM EDT Hem/Onc Treatment Hematology/Oncolog y Treatment, [place] 200 [facility], [place] [phone] 11/25/2023 2:15 PM EDT Hospital Encounter ENDO OSSC, Endoscopy Room [facility] [address] [place] [phone] Nitin Austin, DO [address] [place] [address] 11/25/2023 2:15 PM EDT - 11/25/2023 3:00 PM EDT Surgery ENDO OSSC, Endoscopy Room [facility] [address] [place] [phone] Nitin Austin, DO [address] [place] [address] COLONOSCOPY FLEXIBLE PROXIMAL DIAGNOSTIC 11/26/2023 2:00 PM EDT Telemedicine Interventional Pain Center, [facility] [address] [place] [address] Sarah Richardson PA-C [address] [place] [address] 12/01/2023 10:00 AM EDT Laboratory Laboratory [address] [place] [phone] [address] [place] [address] 02/10/2024 1:00 PM EDT Office Visit Family Medicine [address] [place] [phone] Kahlil Mooney CRNP [address] [place] [address] [place] [address] 04/05/2024 1:20 PM EDT Office Visit Dermatology [address] [place] [address] Melanie Frank PA-C [address] [place] [address] [place] [address] 07/23/2024 3:30 PM EST Office Visit Nephrology [address] [place] [address] ZemaValery sanchez PA-C [address] [facility] [address] 08/17/2024 1:40 PM EST Office Visit Family Medicine [address] [place] [phone] Jasson Denney MD [address] [place] [address] [place] [address] Scheduled Procedures Name Priority Associated Diagnoses Date/Ti [...] VERIFIED BY PFT 01/02/2018 HbA1c 03/20/2024 03/20/2023, 10/0 10/2021, 11/01/2020, Additional history exists GFR 03/31/2024 09/30/2023, 02/0 06/2023, 06/30/2023, Additional history exists CKD HGB USE SMARTSET 92181 09/29/202409/29, 09/30/2023, 09/01/2023, Additional history exists CKD PHOS USE SMARTSET 36700 09/29/2024 04/1 11/2023, 09/01/2023, 07/25/2022, Additional history [...] this encounter Medical Devices Implanted Type Area Cardiac Rehabilitation Specialist Device Identifier Shelf Expiration Date Model / Serial / Lot [place] Excluder Aaa Endoprothesis System-07/07/2019 Implanted:07/07/19 20 (Quantity not on file) Graft Description:Multiple implant s from system on same day [id number] Cordis Bx Velocity Cardiac Stent-06/02/2002 Implanted:06/02/20 02 (Quantity not on file) Stent CORDIS LEXA BX VELOCITY [id number] / / [id number] Cordis Bx Velocity Cardiac Stent-01/03/2003 Implanted:01/04/20 03 (Quantity not on file) Stent CORDIS LEXA VELOCITY [id number] / / [id number] documented as of this encounter Advance Directives [...] the patient have Health Care Power of Delicatessen Manager? No Healthcare Agents on File Name Relationship Healthcare Agent Relationship Communication Gus Rosenbaum Jr. Adult Child Health Care R epresentative (appointed verbally by patient or by statute hierarchy) Care Teams Journey Lineman Relationship Specialty Start Date End Date Jasson Denney MD [address] [place] [address] [place] [id number] PCP - General Family Medicine 03/22/16 documented as of this encounter
--- OUTSIDE RECORDS SUMMARY | 2023-12-22 05:49 | External Medical Summary | Summary of Care ---
Author Name Unknown Organization [facility] Address [address] [facility] [place] [address] Phone [phone] Care Team Providers Care Sports Coordinator Name Role Phone Jasson Denney MD Primary Care Provide r Reason for Visit * Reason Onset Date Comments Test Results 10/02/2023 Encounter Details Date Type Department Care Team (Late st Contact Info) Description 10/02/2023 Telephone NephrologyEdy 200 [place] [address] Maritza Parrish MD 200 [facility] [place] [place] [address] Test Results (/) Allergies Active Allergy Reactions Criticality Noted Date [...] every night at bedtime. 0 07/12/2019 Active Phenylephrine-Zirconia Butter 0.25-88.44 % Rectal Suppository Administer into the rectum as needed for Hemorrhoids. 0 Active Nitroglycerin 0.4 MG Sublingual Tablet Sublingual (Nitrostat) Place 1 Tablet under the tongue as needed. 0 11/10/2020 Active Isosorbide Mononitrate ER 30 MG Oral Tablet Extended Release 24 Hour (Imdur)Indications: Coronary artery disease involving [place] coronary artery of [place] heart without angina pectoris TAKE 1 TABLET [...] stent 11/15/2020 Coronary artery disease invo lving [place] heart without angina pectoris 11/15/2020 Cardiac murmur [...] mRNA, LNP-s, No Pre serve, 2-Dose Series (Nexgence) 08/11/2020,07/21/2020 COVID-19, LNP-s, No Preserve , Dusty-sucrose, Ages 12+ (Nexgence) 02/05/2022,08/07/2021 COVID-19, MRNA-LNP, 23-24, P F, 30 MCG/0.3 mL, 12 YRS AND ABOVE, [facility] 05/13/2023 Covid-19, Mrna, Lnp-s, Pf, B ivalent, 30 Mcg, IM, 12 yrs and above (Nexgence) 06/11/2022 Pneumococcal Conjugate Vacc, 13 Valent (Prevnar) [...] encounter Miscellaneous Notes * Telephone Encounter - Charity Bearden RN - 10/02/2023 11:06 AM EDT TE with pt regarding lab results. She is scheduled for Iron transfusions at Hem/Onc clinic . Will have follow up appointment with them on 10/16/23. * Telephone Encounter - Charity Bearden RN - 10/02/2023 11:04 AM EDT ----- Message from Maritza Parrish MD sent at 10/01/2023 4:27 PM EDT ----- Kidney labs stable; Other labs show iron-deficiency anemia which is a bit worse than 1 month back: She still on chemotherapy? If so defer to Hematology-Oncology to manage iron- deficiency anemia. If not recommend consideration of anemia Clinic so please let me know documented in this encounter Plan of Treatment Upcoming Encounters Date Type Department Care Team (Latest Contact Info) Description 10/09/2023 2:30 PM EDT Hem/Onc Treatment Hematology/Oncolog y Treatment, [address] [place] [phone] 10/13/2023 2:20 PM EDT Office Visit Nephrology [address] [place] [address] Maritza Parrish MD 200 [facility] [place] [address] 10/16/2023 11:00 AM EDT Imaging Radiology [address] [place] [address] 10/16/2023 1:30 PM EDT Hem/Onc Treatment Hematology/Oncolog y Treatment, [address] [phone] Daria, Chair [address] [place] [address] 10/16/2023 3:30 PM EDT Office Visit Hematology/Oncolog y [facility] Daria [place] [address] [place] [address] [place] [phone] Abena Xiong CRNP 400 [facility] [place] [address] 10/23/2023 2:30 PM EDT Hem/Onc Treatment Hematology/Oncolog y Treatment, [address] [place] [phone] Daria, Chair [address] [facility] [address] [place] [address] [place] [address] 10/30/2023 2:30 PM EDT Hem/Onc Treatment Hematology/Oncolog y Treatment, [place] [address] [place] [phone] Daria, Chair 7 Hem Onc Scenery [address] [place] [address] 11/25/2023 2:15 PM EDT Hospital Encounter ENDO OSSC, Endoscopy Room [facility] [address] [place] [phone] Nitin Austin, DO [address] [place] [address] 11/25/2023 2:15 PM EDT - 11/25/2023 3:00 PM EDT Surgery ENDO OSSC, Endoscopy Room [facility] [address] [place] [phone] Nitin Austin, DO [address] [place] [address] COLONOSCOPY FLEXIBLE PROXIMAL DIAGNOSTIC 11/26/2023 2:00 PM EDT Telemedicine Interventional Pain Center, [facility] [address] [place] [address] Sarah Richardson PA-C [address] [place] [address] 12/01/2023 10:00 AM EDT Laboratory Laboratory [address] [place] [phone] [place], Lab [address] [place] [address] 02/10/2024 1:00 PM EDT Office Visit Family Medicine [address] [place] [phone] Kahlil Mooney [address] [place] [address] 04/05/2024 1:20 PM EDT Office Visit Dermatology [address] [place] [address] Melanie Frank PA-C [address] [place] [address] [place] [address] 08/17/2024 1:40 PM EST Office Visit Family Medicine [address] [place] [phone] Jasson Denney MD [address] [place] [address] [place] [address] Scheduled Procedures Name Priority Associated Diagnoses Date/Ti [...] COPD 08/12/2024 08/12/2023 CKD HGB USE SMARTSET 97821 09/29/202409/29, 09/30/2023, 09/01/2023, Additional history exists CKD PHOS USE SMARTSET 67875 09/29/202409/14, 09/01/2023, 07/25/2022, Additional history exists Albumin/Creatinine Ratio 09/30/202409/30/2 024, 06/30/2023, 07/25/2022, Additional history exists DXA [...] Medical Devices Implanted Type Area Director Of Event Management Device Identifier Shelf Expiration Date Model / Serial / Lot [place] Excluder Aaa Endoprothesis System-07/07/2019 Implanted:07/07/19 20 (Quantity not on file) Graft Description:Multiple implant s from system on same day [id number] Cordis Bx Velocity Cardiac Stent-06/02/2002 Implanted:06/02/20 02 (Quantity not on file) Stent CORDIS LEXA BX VELOCITY [id number] / / [id number] Cordis Bx Velocity Cardiac Stent-01/03/2003 Implanted:01/04/20 03 (Quantity not on file) Stent CORDIS LEXA VELOCITY [id number] / / [id number] documented as of this encounter Advance Directives [...] the patient have Health Care Power of Floral Designer? No Healthcare Agents on File Name Relationship Healthcare Agent Relationship Communication Gus Rosenbaum Jr. Adult Child Health Care R epresentative (appointed verbally by patient or by statute hierarchy) Care Teams Sports Coordinator Relationship Specialty Start Date End Date Jasson Denney MD [address] [place] [address] [place] [address] PCP - General Family Medicine 03/22/16 documented as of this encounter
--- OUTSIDE RECORDS SUMMARY | 2023-12-22 05:49 | External Medical Summary | Summary of Care ---
Author Name Unknown Organization [facility] Address [address] [facility] [place] [address] Phone [phone] Care Team Providers Care Cap Cutter Name Role Phone Jasson Denney MD Primary Care Provide r Reason for Visit * Reason Onset Date Comments Test Results 10/15/2023 Encounter Details Date Type Department Care Team (Late st Contact Info) Description 10/15/2023 Telephone NephrologyEdy [address] [place] [address] Maritza Parrish MD [address] [facility] [place] [address] Test Results Allergies Active Allergy Reactions Criticality Noted Date Comments Adhesive Tape 04/11/2006 Latex 06/06/2022 Other reaction(s): rash/itchy documented as of this encounter (statuses as of 10/15/2023) Medications Medication Sig Dispensed Refills Start Date [...] every night at bedtime. 0 07/12/2019 Active Phenylephrine-[place] Butter 0.25-88.44 % Rectal Suppository Administer into the rectum as needed for Hemorrhoids. 0 Active Nitroglycerin 0.4 MG Sublingual Tablet Sublingual (Nitrostat) Place 1 Tablet under the tongue as needed. 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 TAKE 1 TABLET [...] as of this encounter (statuses as of 10/15/2023) Active Problems Problem Noted Date Diagnosed Date Iron deficiency anemia 08/12/2023 Encounter for antineoplastic chemotherapy 2022 Malignant neoplasm of left b reast in female, estrogen receptor positive 06/28/2022 Postherpetic neuralgia 06/28/2022 Hiatal hernia 08/07/2021 Schatzki's ring 08/07/2021 S/P angioplasty with stent 11/15/2020 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 11/15/2020 Cardiac murmur [...] as of this encounter (statuses as of 10/15/2023) Resolved Problems Problem Noted Date Diagnosed Date [...] as of this encounter (statuses as of 10/15/2023) Immunizations Name Administration Dates Next Due COVID-19 mRNA, LNP-s, No Pre serve, 2-Dose Series ([employer]) 08/11/2020,07/21/2020 COVID-19, LNP-s, No Preserve , Dusty-sucrose, Ages 12+ (Pfizer) 02/05/2022,08/07/2021 COVID-19, MRNA-LNP, 23-24, P F, 30 MCG/0.3 mL, 12 YRS AND ABOVE, IM ([employer]) 05/13/2023 Covid-19, Mrna, Lnp-s, Pf, B ivalent, 30 Mcg, IM, 12 yrs and above ([employer]) 06/11/2022 Pneumococcal Conjugate Vacc, 13 Valent [...] Telephone Encounter - Charity Bearden RN - 10/15/2023 3:08 PM EDT Te with pt regarding Cxr and lab results. She is aware that her low blood count is contributing to her feeling fatigued. Note was sent to hematology and she will see them tomorrow. * Telephone Encounter - Charity Bearden RN - 10/15/2023 3:07 PM EDT ----- Message from Maritza Parrish MD sent at 10/15/2023 12:29 PM EDT ----- No sudden changes to her CXR to explain her worsened fatigue and sob which I thnk are coming from slowly worsening anemia. See separate message on lab results. Renal nurse pls also check on how she's feeling >> if unable to do ADL's if new/worse sx as reviewed in my OV note, needs ER eval Copying heme whom she sees tomorrow >> pls see my 10/12 note * Telephone Encounter - Charity Bearden RN - 10/15/2023 3:04 PM EDT ----- Message from Maritza Parrish MD sent at 10/15/2023 12:31 PM EDT ----- Slow decline in her hgb, likely a bit part along w/ low bp in why so tired and OOBreath. Made med changes at OV that should help w/ low BP; defer to heme on next steps w/ slowly worsening anemia Plsupdate pt; see separate CXR note Copying heme onc documented in this encounter Plan of Treatment Upcoming Encounters Date Type Department Care Team (Latest Contact Info) Description 10/16/2023 11:00 AM EDT Imaging Radiology [address] [place] [address] 10/16/2023 1:30 PM EDT Hem/Onc Treatment Hematology/Oncolog y Treatment, [place] [address] [place] [phone] Daria, Chair 8 Hem Onc [facility] [address] [facility] [place] [address] 10/16/2023 3:30 PM EDT Office Visit Hematology/Oncolog y [facility] [place] [address] [place] [phone] Abena Xiong CRNP [address] [place] [address] 10/23/2023 2:30 PM EDT Hem/Onc Treatment Hematology/Oncolog y Treatment, [place] [address] [facility], [place] [phone] Park, Chair 1 [facility] [address] 10/30/2023 2:30 PM EDT Hem/Onc Treatment Hematology/Oncolog y Treatment, [place] [address] [facility], [place] [phone] 11/25/2023 2:15 PM EDT Hospital Encounter ENDO [facility], Endoscopy Room [facility] [address] [place] [phone] Nitin Austin, DO [address] [place] [address] 11/25/2023 2:15 PM EDT - 11/25/2023 3:00 PM EDT Surgery ENDO [facility], Endoscopy Room [facility] [address] [place] [phone] Nitin Austin, DO [address] [place] [address] COLONOSCOPY FLEXIBLE PROXIMAL DIAGNOSTIC 11/26/2023 2:00 PM EDT Telemedicine Interventional Pain Center, [facility] [address] [place] [address] Sarah Richardson PA-C [address] [place] [address] 12/01/2023 10:00 AM EDT Laboratory Laboratory [address] [place] [phone] [place] [address] 02/10/2024 1:00 PM EDT Office Visit Family Medicine [address] [place] [phone] Kahlil Mooney [address] [place] [address] 04/05/2024 1:20 PM EDT Office Visit Dermatology [address] [place] [address] Melanie Frank PA-C [address] [place] [address] [place] [address] 07/23/2024 3:30 PM EST Office Visit Nephrology [address] [place] [address] ZemaValery sanchez PA-C [address] [facility] [address] 08/17/2024 1:40 PM EST Office Visit Family Medicine [address] [place] [phone] Jasson Denney MD [address] [place] [address] [place] [address] Scheduled Procedures Name Priority Associated Diagnoses Date/Ti [...] Additional history exists CKD PHOS USE SMARTSET 66079 09/29/2024 04/1 11/2023, 09/01/2023, 07/25/2022, Additional history exists Albumin/Creatinine Ratio 09/30/202409/30/2 024, 06/30/2023, 07/25/2022, Additional history exists CKD HGB USE SMARTSET 07659 10/12/202410/12, 09/30/2023, 09/30/2023, Additional history exists O2 [...] this encounter Medical Devices Implanted Type Area Grooming Salon Manager Device Identifier Shelf Expiration Date Model / Serial / Lot [place] Excluder Aaa Endoprothesis System-07/07/2019 Implanted:07/07/19 20 (Quantity not on file) Graft Description:Multiple implant s from system on same day [id number] Cordis Bx Velocity Cardiac Stent-06/02/2002 Implanted:06/02/20 02 (Quantity not on file) Stent CORDIS [employer]EXA BX VELOCITY [id number] / / [id number] Cordis Bx Velocity Cardiac Stent-01/03/2003 Implanted:01/04/20 03 (Quantity not on file) Stent CORDIS [place] VELOCITY [id number] / / [id number] documented as of this encounter Advance Directives [...] the patient have Health Care Power of Drama Teacher? No Healthcare Agents on File Name Relationship Healthcare Agent Relationship Communication Gus Rosenbaum Jr. Adult Child Health Care R epresentative (appointed verbally by patient or by statute hierarchy) Care Teams Cap Cutter Relationship Specialty Start Date End Date Jasson Denney MD [address] [place] [address] [place] [address] PCP - General Family Medicine 03/22/16 documented as of this encounter
--- OUTSIDE RECORDS SUMMARY | 2023-12-22 05:49 | External Medical Summary ---
Author Name Unknown Address Unknown Organization K01:[facility] [place] [address] [place] [address] Laboratory Report Ordering Provider Test Date Status JACKIE ERICKSON 10/13/2023 15:49:51 Final Observation Date Value Abnormality Reference (Units ) Status Hemoglobin 10/13/2023 15:49:51 8.3 Below low normal 12 .0-15.3 (g/dL) Final Performing Location [facility] - [address] [place] [address]
--- OUTSIDE RECORDS SUMMARY | 2023-12-22 05:49 | External Medical Summary | Summary of Care ---
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 Designer Name Role Phone Jasson Denney MD Primary Care Provide r Reason for Visit * Reason Comments Chronic Kidney Disease (CKD) Encounter Details Date Type Department Care Team (Late st Contact Info) Description 10/13/2023 2:20 PM EDT Office Visit Nephrology [address] [place] [address] Maritza Parrish MD [address] [facility] [place] [address] Stage 3b chronic kidney disease (HCC)*; HTN, goal below 130/80; Anemia due to stage 3b chronic kidney disease (HCC); Hypotension, unspecified hypotension type; Shortness of breath Allergies Active Allergy Reactions Criticality Noted Date [...] 24 Hour (Imdur)Indicatio ns: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 60 Tablet 5 10/13/2023 Active Atenolol 25 MG Oral Tablet (Tenormin)Indica [...] stent 11/15/2020 Coronary artery disease invo lving miami heart without angina pectoris 11/15/2020 Cardiac murmur [...] mRNA, LNP-s, No Pre serve, 2-Dose Series (Jobspot) 08/11/2020,07/21/2020 COVID-19, LNP-s, No Preserve , Dusty-sucrose, Ages 12+ (Jobspot) 02/05/2022,08/07/2021 COVID-19, MRNA-LNP, 23-24, P F, 30 MCG/0.3 mL, 12 YRS AND ABOVE, IM (Scifiniti-Comirnaty) 05/13/2023 Covid-19, Mrna, Lnp-s, Pf, B ivalent, 30 Mcg, IM, 12 yrs and above (Jobspot) 06/11/2022 Pneumococcal Conjugate Vacc, 13 Valent (Prevnar) [...] Sign Reading Time Taken Comments Blood Pressure 99/42 10/13/2023 3:43 PM EDT Pulse 71 10/13/2023 3:43 PM EDT Temperature 36.7 C (98 F) 10/13/2023 2:24 PM EDT Respiratory Rate 18 10/13/2023 2:24 PM EDT Oxygen Saturation 95% 10/13/2023 2:24 PM EDT Inhaled Oxygen Concentration - - Weight 71.5 kg (157 lb 11.2 oz) 10/13/2023 2:24 PM EDT Height - - Body Mass Index 25.45 03/20/2023 11:24 AM EDT documented in this encounter Patient Instructions * Patient Instructions* Maritza Parrish MD - 10/13/2023 3:15 PM EDT -stop atenolol -start metoprolol 25 mg twice daily instead -check Xray and blood test today -no change to other meds -after about a week on new medicine, do a 3 day BP log >> 2X in AM, 2X in PM 3 days in a row and send results to us -avoid medicines like aleve, advil, ibuprofen, aspirin more than 81 mg daily and other NSAIDS whichare not good for kidney patients. Take only tylenol (acetaminophen) up to 2000 mg daily as needed for pain or as directed by your primary care provider. -recheck labs as per oncology -avoid medicines like aleve, advil, ibuprofen, aspirin more than 81 mg daily and other NSAIDS whichare not good for kidney patients. Take only tylenol (acetaminophen) up to 2000 mg daily as needed for pain or as directed by your primary care provider. documented in this encounter Progress Notes * Maritza Parrish MD - 10/13/2023 2:58 PM EDT NEPHROLOGY CLINIC NOTE Nephrology [address] [place] [address] 10/13/2023, 2:58 PM Patient Name: Afua Rosenbaum BACKGROUND: 83 year old female presents for [...] AAA 07/05/19 s/p emergent endovascular repair [facility] and w/ L retroperitoneal hemorrhage and moderate L hydronephrosis, proximal hydroureter on 08/13 u/s. She needed 2 units pRBC that admission. D/c creatinine 1.0 on 07/16. Follows w/ Dr Cabrera for vascula rissues. Her baseline creatinine had been 0.9 in 2017, then 1.0 in 2018. 04/2019 creat was 1.1. Then mid 1.5 w/ peak at 1.8 08/09 and ; down to 1.5 on 08/22. History of R side chest pains intermittently that radiates to her back between her shoulder blades - pain is similar to what she had w/ CA in 2001 in past; Pain can be relieved by pepcid. Admits she often does not tell providers about her symptoms like those above. States was checked many years ago for PAD by Dr Lau and was negative. 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 Left sided Masectomy 08/14/22. Ended CTX in 11/2022. Walking also limited by back and knee pain. Using back patches. No nsaids w/ this Home blood pressure checks: yes with cuff NSAID use: No Herbals/supplements: MV, Calcium/Vit D History of stones: No Family history of CKD or ESRD: No Patient reports Apr 2023 drinking 18 oz of water daily. Does drink some juice throughout the day TODAY 10/13/2023: Not feeling good, not eating well. Cymbalta upped to hlep w/ pain > helps some but very sleepy/tired. For upcoming MRI for back which is "my biggest problem." Really struggles to get up and move in AM w/ this. Working w/ pain mgt Taking IV iron x 4; anemia has worsened >> hgb last one in 8s from 9s. Hgb was already declining in Jul when she last saw onc > attrib to CKD and sees them back later week; also has EGD/colo set up for November. Feeling really wiped out and tired. No chest pain or palpitations. Does get some heartburn. Gets up and goes from LR to kitchen and back and is exhausted and w/ legs burning; got a chair liftfor stairs BP at home other day was 121/65; hasn't taken bp much lately b/c feeling ok. Lost a few lb since last visit > about 5. Minimal LLE edema other day. REVIEW OF SYSTEMS General: + fatigue which is significant. Wt loss+ Respiratory: No cough,No wheezing, + shortness of breath Cardiovascular:No chest pain, No palpitations, and No syncope, No falls Gastrointestinal: No nausea, vomiting, occasional diarrhea + occasion constipation No blood in stools Urinary: No dysuira, No hematuria. No flank pain Musculoskeletal: + muscle/joint pains-back and leg pain, + left leg edema Skin: No itching No presyncopal or orthostatic symptoms; no falls Current Outpatient Medications Medication Sig Dispense Refill [...] Capsule by mouth every night at bedtime. Phenylephrine-[place] Butter 0.25-88.44 % Rectal Suppository Administer into the rectum as needed forHemorrhoids. Isosorbide Mononitrate ER 30 MG Oral Tablet Extended Release 24 Hour (Imdur) TAKE 1 TABLET BY MOUTHEVERY DAY IN THE MORNING 90 Tablet 1 Rosuvastatin Calcium 20 MG Oral Tablet (Crestor) TAKE 1 TABLET BY MOUTH DAILY 90 Tablet 3 Iron-Vitamin C 65-125 MG [...] 1 Tablet before bedtime. 60 Tablet 5 cyclobenzaprine (FLEXERIL) 10 MG Tablet Take 1 Tab by mouth 3 times a day as needed for Muscle spasms. (Patient not taking: Reported on 09/24/2023) 30 Tab 1 Nitroglycerin 0.4 MG Sublingual Tablet Sublingual (Nitrostat) Place 1 Tablet under the tongue as needed. Pantoprazole Sodium 20 MG Oral Tablet Delayed Release (Protonix) Take 1 Tablet by mouth in the morning. 30 minutes before the first meal of the day. Do not crush, split or chew the tablet. 90 Tablet 3 No current facility-administered medications for this visit. Review of patient's allergies indicates: Allergen Reactions Adhesive Tape Latex Other reaction(s): rash/itchy PHYSICAL EXAMINATION: BP Readings from Last 6 Encounters: 10/13/23 99/42 10/09/23 93/47 08/12/23 124/48 07/24/23 128/50 07/17/23 130/64 06/06/23 126/64 Wt Readings from Last 6 Encounters: 10/13/23 71.5 kg (157 lb 11.2 oz) 08/12/23 73.5 kg (162 lb) 07/24/23 73.7 kg (162 lb 8 oz) 07/17/23 73.3 kg (161 lb 8 oz) 06/06/23 73.9 kg (163 lb) 05/13/23 74.4 kg (164 lb) Pulse Readings from Last 6 Encounters: 10/13/23 71 10/09/23 62 08/12/23 82 07/24/23 69 07/17/23 68 06/06/23 66 10/13/2023 10/13/2023 10/13/2023 BP: 99/42 92/37 109/42 BP Site: Right Arm Right Arm Right Arm BP Position: Standing Sitting Sitting BP Cuff Size: Regular Regular Regular Pulse: 71 65 64 Resp: -- -- 18 Temp: -- -- 36.7 C (98 F) SpO2: -- -- 95 % Weight: -- -- 71.5 kg (157 lb 11.2 oz) NAD, oriented x 3, ambulatory w/ cane, does appear tired Normocephalic, atraumatic, eomi nonicteric sclerae Dry MM Supple neck RRR w/o m/g/r; no edema Bibasilar Crackles NT abd, +BS, soft No cyanosis or clubbing No rash; slight pallor No tremor, focal or global weakness; fluent speech, good historian LABS: Recent Labs Units 09/30/23 0959 07/17/23 1511 06/30/23 1106 03/20/23 1202 SODIUM - [facility] mmol/L 141 142 139 143 POTASSIUM - [facility] mmol/L 4.5 5.0 4.3 4.6 CHLORIDE - [facility] mmol/L 105 107 108* 106 CO2 - [facility] mmol/L 23 23 21* 27 BUN - [facility] mg/dL 17 23* 30* 24* CREATININE - [facility] mg/dL 1.4* 1.4* 1.6* 1.6* ESTIMATED GLOMERULAR FILTRATION RATE - [facility] mL/min 38* 38* 32* 32* Recent Labs Units 10/13/23 1549 09/30/23 0959 09/01/23 0917 07/17/23 1511 HGB g/dL 8.3* 8.5* 9.2* 9.2* FERRITIN - [facility] ng/mL -- 41 33 24 TRANSFERRIN SATURATION PERCENT - [facility] % -- 8* 9* 10* Recent Labs Units 09/30/23 0959 09/01/23 0917 07/17/23 1511 06/30/23 1106 03/20/23 1202 09/16/22 1335 07/25/22 1553 01/10/22 1313 CALCIUM - [facility] mg/dL 9.5 -- 10.2 9.7 9.6 < > 10.0 9.7 PHOSPHORUS - [facility] mg/dL 3.3 3.7 -- -- -- -- 3.5 2.9 25-HYDROXY VITAMIN D - [facility] ng/mL 40 -- -- -- -- -- 47 46 PTH - [facility] pg/mL 74* -- -- -- -- -- 46 60 < > = values in this interval not displayed. Recent Labs Units 03/20/23 1202 03/20/22 1339 HEMOGLOBIN A1C - [facility] % 6.1* 6.0* Recent Labs Units 10/01/23 1256 06/30/23 1106 07/25/22 1553 01/10/22 1313 ALBUMIN / CREATININE RATIO, URINE - [facility] mg/g Creat 32* 29 8 -- PROTEIN/ CREATININE RATIO, URINE - [facility] mg/g -- -- 92 66 Recent Labs Units 06/30/23 1106 07/25/22 1553 02/05/22 0951 01/10/22 1313 CLARITY, URINE - [facility] Slightly Cloudy* Clear Clear Clear GLUCOSE, URINE - [facility] mg/dL 100* Negative Negative Negative BILIRUBIN, URINE - [facility] Negative Negative Negative Negative KETONE, URINE - [facility] mg/dL Negative Negative Negative Negative SPECIFIC GRAVITY, URINE - [facility] 1.028 1.027 1.015 1.027 BLOOD, URINE - [facility] Negative Negative Negative Negative PH, URINE - [facility] Units 5.5 6.0 6.0 5.5 PROTEIN, URINE - [facility] mg/dL 100* Trace* Trace* Trace* PROTEIN, RANDOM URINE - [facility] mg/dL -- 17 -- 13 UROBILINOGEN, URINE - [facility] mg/dL 0.2 Normal Normal Normal NITRITE, URINE - [facility] Negative Negative Negative Negative ESTERASE, URINE - [facility] Negative Negative Negative Moderate* BACTERIA, URINE - [facility] /HPF 26-50* 0-25 -- 26-50* WBC, URINE - [facility] /HPF 3-5* 3-5* -- 10-19* RBC, URINE - [facility] /HPF 0-2 0-2 -- 0-2 Cxr feb 2023 The heart size is within normal limits. Moderate hiatal hernia. No focal consolidation. Minimal left basilar atelectasis. No pleural effusions or pneumothorax. Degenerative osseous changes. Scoliosis. IMPRESSION 1. Minimal left basilar atelectasis. ASSESSMENT AND PLAN: Stage 3b chronic kidney disease (HCC) (Primary) HTN, goal below 130/80 - 3 POSITIONAL BLOOD PRESSURE Anemia due to stage 3b chronic kidney disease (HCC) - HGB Hypotension, unspecified hypotension type - 3 POSITIONAL BLOOD PRESSURE - XR CHEST 2 VIEWS Shortness of breath - XR CHEST 2 VIEWS - HGB Other orders - Metoprolol Tartrate 25 MG Oral Tablet (Lopressor); Take 1 Tablet by mouth in the morning and 1 Tablet before bedtime. Follow Up: Return in about 3 months (around 01/12/2024) for clinic visit w/ , clinic visit w/ [place]. | For: clinic visit w/ , clinic visit w/ [place] | Check-out note: waitlist Hypotensive today in clinc and w/ severe fatigue, mild sob > could be from anemia, from low BP, from other, or multifactorial. 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 w/ lower BP and/or ER visit; she declines; did review alarm sx to prompt ER eval such as marli bleeding, worsening dyspnea, inability to complete ADLs, chest pain, focal numbness/weakness, fall, other worrisome sx Bp controlled/too low today -cont enalapril, change BB as below -f/u bp log Anemia has been slowly progressive w/ last hgb down to 8's from 2021 through 03/2023 then Jun-August 2023 in 9's Follows closely w/ heme onc and w/ upcoming appt -labs as above; defer to them to manage given active CA dx' past 12 mos; will eval for need for urgent trnasfusion CKD 3B w/ no albuminuria -cont acei; monitor for need to lower dose Patient Instructions -stop atenolol -start metoprolol 25 mg twice daily instead -check Xray and blood test today -no change to other meds -after about a week on new medicine, do a 3 day BP log >> 2X in AM, 2X in PM 3 days in a row and send results to us -avoid medicines like aleve, advil, ibuprofen, aspirin more than 81 mg daily and other NSAIDS whichare not good for kidney patients. Take only tylenol (acetaminophen) up to 2000 mg daily as needed for pain or as directed by your primary care provider. -recheck labs as per oncology -avoid medicines like aleve, advil, ibuprofen, aspirin more than 81 mg daily and other NSAIDS whichare not good for kidney patients. Take only tylenol (acetaminophen) up to 2000 mg daily as needed for pain or as directed by your primary care provider. High risk patient w/ complex medical decision making as above. Maritza Parrish MD Nephrology [address] [place] [address] CC: Ref: SELF[[id number]] NO STREET ADDRESS AVAILABLE None (office) None (fax) PCP: JASSON DENNEY [address] [place] [address] [place] [address] [phone] This chart was completed in part utilizing NCR Speech Voice Recognition Software. Randomword insertions, pronoun errors, and incomplete sentences are an occasional consequence of this system due to software limitations, and ambient noise. Any questions or concerns about the content, text, or information contained within the body of this dictation should be directly addressed to the provider for clarification. documented in this encounter Nursing Notes * Charity Bearden RN - 10/13/2023 2:26 PM EDT Follow up visit today. Monitors bps at home at times but states they have been good. States she hasbeen having some diarrhea off and on. Scheduled for Colonoscpoy/EGD in November. States her appetite isnot the best. documented in this encounter Miscellaneous Notes * Result Encounter Note - Maritza Parrish MD - 10/15/2023 12:31 PM EDT Slow decline in her hgb, likely a bit part along w/ low bp in why so tired and OOBreath. Made med changes at that should help w/ low BP; defer to heme on next steps w/ slowly worsening anemia Plsupdate pt; see separate CXR note Copying heme onc * Result Encounter Note - Maritza Parrish MD - 10/15/2023 12:29 PM EDT No sudden changes to her CXR to [...] tomorrow >> pls see my 10/12 note documented in this encounter Plan of Treatment Upcoming Encounters Date Type Department Care Team (Latest Contact Info) Description 10/16/2023 11:00 AM EDT Imaging Radiology [address] [place] [address] 10/16/2023 1:30 PM EDT Hem/Onc Treatment Hematology/Oncolog y [address] [phone] Daria, Chair 8 Hem Onc [address] [place] [address] 10/16/2023 3:30 PM EDT Office Visit Hematology/Oncolog y [facility] [place] [address] [place] [phone] Abena Xiong CRNP [address] [place], [place] [address] [address] 10/23/2023 2:30 PM EDT Hem/Onc Treatment Hematology/Oncolog y [facility], [address] [phone] Daria, Chair 1 Hem Onc [address] [place] [address] 10/30/2023 2:30 PM EDT Hem/Onc Treatment Hematology/Oncolog y Treatment, [place] [address] [place] [phone] 11/25/2023 2:15 PM EDT Hospital Encounter ENDO [facility], Endoscopy Room [facility] [address] [place] [phone] Nitin Austin, DO [address] [place] [address] 11/25/2023 2:15 PM EDT - 11/25/2023 3:00 PM EDT Surgery ENDO [facility], Endoscopy Room [facility] [address] [place] [phone] Nitin Austin, DO [address] [place] [address] COLONOSCOPY FLEXIBLE PROXIMAL DIAGNOSTIC 11/26/2023 2:00 PM EDT Telemedicine Interventional [facility], [facility] [address] [place] [address] Sarah Richardson PA-C [address] [place] [address] 12/01/2023 10:00 AM EDT Laboratory Laboratory [address] [place] [phone] [place], Lab [address] [place] [address] 02/10/2024 1:00 PM EDT Office Visit Family Medicine [address] [place] [phone] [place] [address] 04/05/2024 1:20 PM EDT Office Visit Dermatology [address] [place] [address] Melanie Frank PA-C [address] [place] [address] [place] [address] 07/23/2024 3:30 PM EST Office Visit Nephrology [address] [place] [address] ZeValery kurtz PA-C [address] [place] [address] 08/17/2024 1:40 PM EST Office Visit Family Medicine [address] [place] [phone] Jasson Denney MD [address] [place] [address] [place] [address] Scheduled Orders Name Type Priority Associated Diagnoses Orde r Schedule 3 POSITIONAL BLOOD PRESSURE Procedures Routine HTN, goal below 130/80 Hypotension, unspecified hypotension type Ordered: 10/13/2023 Scheduled Procedures Name Priority Associated Diagnoses Date/Ti [...] Additional history exists CKD PHOS USE SMARTSET 06456 09/29/202409/14, 09/01/2023, 07/25/2022, Additional history exists Albumin/Creatinine Ratio 09/30/2024 024, 06/30/2023, 07/25/2022, Additional history exists CKD HGB USE SMARTSET 10615 10/12/202410/12, 09/30/2023, 09/30/2023, Additional history exists O2 [...] this encounter Medical Devices Implanted Type Area Donor Services Manager Device Identifier Shelf Expiration Date Model / Serial / Lot Timpson Excluder Aaa Endoprothesis System-07/07/2019 Implanted:07/07/19 20 (Quantity not on file) Graft Description:Multiple implant s from system on same day [id number] Cordis Bx Velocity Cardiac Stent-06/02/2002 Implanted:06/02/20 02 (Quantity not on file) Stent CORDIS LEXA BX VELOCITY [id number] / / [id number] Cordis Bx Velocity Cardiac Stent-01/03/2003 Implanted:01/04/20 03 (Quantity not on file) Stent CORDIS LEXA VELOCITY [id number] / / [id number] documented as of this encounter Procedures Procedure Name Priority Date/Time Associated Diagnosis Comments HGB Routine 10/13/2023 3:49 PM EDT Anemia due to stage 3b chronic kidney disease (HCC) Shortness of breath XR CHEST 2 VIEWS Routine 10/13/2023 3:47 PM EDT Hypotension, unspecified hypotension type Shortness of breath documented in this encounter Results * (ABNORMAL) HGB (10/13/2023 3:49 PM EDT) HGB 8.3(L) 12.0 - 15.3 g/dL 10/14/2023 12:04 AM EDT LAB[facility]ATORY [facility] Blood Venous blood specimen / Unknown Venipuncture / Unknown 10/13/2023 3:49 PM EDT 10/13/2023 3:49 PM EDT Maritza Parrish MD LAB BLOOD ORDERAB LES LAB[facility]ATORY [facility] [address] [place] [address] * XR CHEST 2 VIEWS (10/13/2023 3:47 PM EDT) Anatomical Region Laterality Modality Chest Computed Radiogr aphy 10/14/2023 7:55 AM EDT Impressions 10/14/2023 7:53 AM EDT IMPRESSION 1. No evidence of acute cardiopulmonary disease. 2. Large hiatal hernia. Narrative 10/14/2023 7:53 AM EDT EXAM XR CHEST 2 VIEWS-10/13/2023 3:47 pm HISTORY low BP, shortness of breath, crackles bibasilar COMPARISON Chest radiographs 02/18/2023. TECHNIQUE PA and lateral views of the chest are examined. FINDINGS The cardiomediastinal silhouette is unchanged. Large hiatal hernia. Normal vascularity. Minimal left basilar atelectasis. No focal consolidation, pleural effusion, or pneumothorax. Scoliosis and degenerative changes in the spine. Partially imaged aortic stent graft. Procedure Note Keven Walter DO - 10/14/2023 EXAM XR CHEST 2 VIEWS-10/13/2023 3:47 pm HISTORY low BP, shortness of breath, crackles bibasilar COMPARISON Chest radiographs 02/18/2023. TECHNIQUE PA and lateral views of the chest are examined. FINDINGS The cardiomediastinal silhouette is unchanged. Large hiatal hernia.Normal vascularity. Minimal left basilar atelectasis. No focalconsolidation, pleural effusion, or pneumothorax. Scoliosis anddegenerative changes in the spine. Partially imaged aortic stent graft. IMPRESSION IMPRESSION 1. No evidence of acute cardiopulmonary disease. 2. Large hiatal hernia. Maritza Parrish MD RADIOLOGY (RAD [facility]) documented in this encounter Visit Diagnoses Diagnosis Stage 3b chronic kidney disease (HCC)- Primary HTN, goal below 130/80 Unspecified essential hypertension Anemia due to stage 3b chronic kidney disease (HCC) Hypotension, unspecified hypotension type Shortness of breath Iron deficiency anemia Iron deficiency anemia, unspecified [...] the patient have Health Care Power of Cluster Bore Operator? No Healthcare Agents on File Name Relationship Healthcare Agent Relationship Communication Gus Rosenbaum Jr. Adult Child Health Care R epresentative (appointed verbally by patient or by statute hierarchy) Care Teams Ornamental Metalwork Designer Relationship Specialty Start Date End Date Jasson Denney MD [address] [place] [address] [place] [address] PCP - General Family Medicine 03/22/16 documented as of this encounter
--- OUTSIDE RECORDS SUMMARY | 2023-12-22 05:49 | External Medical Summary ---
Author Name Unknown Address Unknown Organization K01:LABORATORY [facility] - [address] [place] [address] Laboratory Report Ordering Provider Test Date Status LIONEL GILL 10/01/2023 12:56:48 Final Normal: <30 mg/g creatinine< br/>High: 30-300 mg/g creatinine
Very High: >300 mg/g creatinine
Nephrotic: >2200 mg/g creatinine Observation Date Value Abnormality Reference (Units ) Status Albumin, Urine 10/01/2023 12:56:48 8.47 (mg/dL) Final Creatinine, Urine 10/01/2023 12:56:48 266 (mg/dL) Final Albumin/Creatinine [Mass Ratio] in Urine 10/01/2023 12:56:48 32 Above high normal <30 (mg/g Creat) Final Performing Location LABORATORY [facility] - [address] [place] [address]
--- OUTSIDE RECORDS SUMMARY | 2023-12-22 05:49 | External Medical Summary | Summary of Care ---
Author Name Unknown Organization [facility] Address [address] [place] [place] [address] Phone [phone] Care Team Providers Care Sewing Machine Bobbin Winder Name Role Phone Jasson Denney MD Primary Care Provide r Reason for Visit * Reason Onset Date Comments Test Results Lab 10/01/2023 Encounter Details Date Type Department Care Team (Late st Contact Info) Description 10/01/2023 Telephone Hematology/Oncology [facility] [address] Abena Xiong CRNP [address] [place] [address] Test Results Lab Allergies Active [...] every night at bedtime. 0 07/12/2019 Active Phenylephrine-[place] Butter 0.25-88.44 % Rectal Suppository Administer into the rectum as needed for Hemorrhoids. 0 Active Nitroglycerin 0.4 MG Sublingual Tablet Sublingual (Nitrostat) Place 1 Tablet under the tongue as needed. 0 11/10/2020 Active Isosorbide Mononitrate ER 30 MG Oral Tablet Extended Release 24 Hour (Imdur)Indications: Coronary artery disease involving [place] coronary artery of [place] heart without angina pectoris TAKE 1 TABLET [...] stent 11/15/2020 Coronary artery disease invo lving [place] heart without angina pectoris 11/15/2020 Cardiac murmur [...] mRNA, LNP-s, No Pre serve, 2-Dose Series ([employer]) 08/11/2020,07/21/2020 COVID-19, LNP-s, No Preserve , Dusty-sucrose, Ages 12+ ([employer]) 02/05/2022,08/07/2021 COVID-19, MRNA-LNP, 23-24, P F, 30 MCG/0.3 mL, 12 YRS AND ABOVE, IM ([facility]) 05/13/2023 Covid-19, Mrna, Lnp-s, Pf, B ivalent, 30 Mcg, IM, 12 yrs and above ([employer]) 06/11/2022 Pneumococcal Conjugate Vacc, 13 Valent (Prevnar) [...] encounter Miscellaneous Notes * Telephone Encounter - Ty Alonso RN [...] 10/13/2023 2:20 PM EDT Office Visit Nephrology [address] [place] [address] Maritza Parrish MD [address] [facility] [place] [address] 10/16/2023 11:00 AM EDT Imaging Radiology [address] [place] [address] 10/16/2023 3:30 PM EDT Office Visit Hematology/Oncolog y [facility] Muse [address] [facility] [place] [phone] Abena Xiong CRNP [address] [place] [address] [place] [address] 11/25/2023 2:15 PM EDT Hospital Encounter ENDO [facility], Endoscopy Room [facility] [address] [place] [address] Nitin Austin DO [address] [place] [address] 11/25/2023 2:15 PM EDT - 11/25/2023 3:00 PM EDT Surgery ENDO [facility], Endoscopy Room [facility] [address] [place] [address] Nitin Austin DO [address] [place] [address] COLONOSCOPY FLEXIBLE PROXIMAL DIAGNOSTIC 11/26/2023 2:00 PM EDT Telemedicine Interventional [facility] Center, [facility] [address] [place] [address] Sarah Richardson PA-C [address] [place] [address] 02/10/2024 1:00 PM EDT Office Visit Family [address] [place] [phone] Kahlil Mooney CRNP [address] [place] [address] [place] [address] 04/05/2024 1:20 PM EDT Office Visit Dermatology [address] [place] [address] Melanie Frank PA-C [address] [place] [address] [place] [address] 08/17/2024 1:40 PM EST Office Visit [address] [place] [phone] Jasson Denney MD [address] [place] [address] [place] [address] Scheduled Procedures Name Priority Associated Diagnoses Date/Ti [...] COPD 08/12/2024 08/12/2023 CKD HGB USE SMARTSET 70254 09/29/202409/29, 09/30/2023, 09/01/2023, Additional history exists CKD PHOS USE SMARTSET 64025 09/29/202409/14, 09/01/2023, 07/25/2022, Additional history exists DXA [...] this encounter Medical Devices Implanted Type Area Derrick Helper Device Identifier Shelf Expiration Date Model / Serial / Lot [place] Excluder Aaa Endoprothesis System-07/07/2019 Implanted:07/07/19 20 (Quantity not on file) Graft Description:Multiple implant s from system on same day [id number] Cordis Bx Velocity Cardiac Stent-06/02/2002 Implanted:06/02/20 02 (Quantity not on file) Stent CORDIS LEXA BX VELOCITY [id number] / / [id number] Cordis Bx Velocity Cardiac Stent-01/03/2003 Implanted:01/04/20 03 (Quantity not on file) Stent CORDIS LEXA VELOCITY [id number] / / [id number] documented as of this encounter Advance Directives [...] the patient have Health Care Power of Analysis Consultant? No Healthcare Agents on File Name Relationship Healthcare Agent Relationship Communication Gus Rosenbaum Jr. Adult Child Health Care R epresentative (appointed verbally by patient or by statute hierarchy) Care Teams Sewing Machine Bobbin Winder Relationship Specialty Start Date End Date Jasson Denney MD [address] [place] [address] [place] [address] PCP - General Family Medicine 03/22/16 documented as of this encounter
--- OUTSIDE RECORDS SUMMARY | 2023-12-22 05:49 | External Medical Summary | Summary of Care ---
Author Name Unknown Organization [facility] Address [address] [facility] [place] [address] Phone [phone] Care Team Providers Care Hospital Fellow Name Role Phone Jasson Denney MD Primary Care Provide r Reason for Visit * Reason Comments Outpatient Testing Encounter Details Date Type Department Care Team (Late st Contact Info) Description 09/30/2023 10:00 AM EDT Laboratory Laboratory [address] [place] [phone] [facility] [address] [place] [address] Iron deficiency anemia, unspecified iron deficiency anemia type; Chronic kidney disease, stage 3b (HCC); Vitamin D deficiency Allergies Active Allergy Reactions Criticality Noted Date Comments Adhesive Tape 04/11/2006 Latex 06/06/2022 Other reaction(s): rash/itchy documented as of this encounter (statuses as of 09/30/2023) Medications Medication Sig Dispensed Refills Start Date [...] every night at bedtime. 0 07/12/2019 Active Phenylephrine-[place] Butter 0.25-88.44 % Rectal Suppository Administer into the rectum as needed for Hemorrhoids. 0 Active Nitroglycerin 0.4 MG Sublingual Tablet Sublingual (Nitrostat) Place 1 Tablet under the tongue as needed. 0 11/10/2020 Active Isosorbide Mononitrate ER 30 MG Oral Tablet Extended Release 24 Hour (Imdur)Indications: Coronary artery disease involving [place] coronary artery of [place] heart without angina pectoris TAKE 1 TABLET [...] EVERY DAY 180 Tablet 1 09/01/2023 Active DULoxetine HCl 30 MG Oral Capsule Delayed Release Particles (Cymbalta)Indicatio ns:Moderate episode of recurrent major depressive disorder (HCC),Chronic bilateral low back pain without sciatica TAKE 1 CAPSULE BY MOUTH EVERY DAY 90 Capsule 1 09/01/2023 Active Ezetimibe 10 MG Oral Tablet (Zetia)Indications: Dyslipidemia, goal to be determined TAKE 1 TABLET BY MOUTH DAILY 90 Tablet 3 09/04/2023 Active Clopidogrel Bisulfate 75 MG Oral Tablet (pLAVix)Indications :HTN, goal below 140/90 TAKE 1 TABLET BY MOUTH DAILY 90 Tablet 3 09/04/2023 Active documented as of this encounter (statuses as of 09/30/2023) Active Problems Problem Noted Date Diagnosed Date Iron deficiency anemia 08/12/2023 Encounter for antineoplastic chemotherapy 2022 Malignant neoplasm of left b reast in female, estrogen receptor positive 06/28/2022 Postherpetic neuralgia 06/28/2022 Hiatal hernia 08/07/2021 Schatzki's ring 08/07/2021 S/P angioplasty with stent 11/15/2020 Coronary artery disease invo lving [place] heart without angina pectoris 11/15/2020 Cardiac murmur [...] as of this encounter (statuses as of 09/30/2023) Resolved Problems Problem Noted Date Diagnosed Date [...] as of this encounter (statuses as of 09/30/2023) Immunizations Name Administration Dates Next Due COVID-19 mRNA, LNP-s, No Pre serve, 2-Dose Series ([employer]) 08/11/2020,07/21/2020 COVID-19, LNP-s, No Preserve , Dusty-sucrose, Ages 12+ ([employer]) 02/05/2022,08/07/2021 COVID-19, MRNA-LNP, 23-24, P F, 30 MCG/0.3 mL, 12 YRS AND ABOVE, IM ([facility]) 05/13/2023 Covid-19, Mrna, Lnp-s, Pf, B ivalent, 30 Mcg, IM, 12 yrs and above ([employer]) 06/11/2022 Pneumococcal Conjugate Vacc, 13 Valent (Prevnar) [...] 10/13/2023 2:20 PM EDT Office Visit Nephrology [address] [place] [address] Maritza Parrish MD [address] [place] [address] 10/16/2023 11:00 AM EDT Imaging Radiology [address] [place] [address] 10/16/2023 3:30 PM EDT Office Visit Hematology/Oncolog y [facility] [place] [address] [place] [phone] Abena Xiong CRNP [address] [place] [address] 11/25/2023 2:15 PM EDT Hospital Encounter ENDO [facility], Endoscopy Room [facility] [address] [place] [address] Nitin Austin, DO [address] [place] [address] 11/25/2023 2:15 PM EDT - 11/25/2023 3:00 PM EDT Surgery ENDO [facility], Endoscopy Room [facility] [address] [place] [phone] Nitin Austin, DO [address] [place] [address] COLONOSCOPY FLEXIBLE PROXIMAL DIAGNOSTIC 11/26/2023 2:00 PM EDT Telemedicine Interventional Pain Center, [facility] [address] [place] [address] Sarah Richardson PA-C [address] [place] [address] 02/10/2024 1:00 PM EDT Office Visit Family Medicine [address] [place] [phone] Kahlil Mooney CRNP [address] [place] [address] [place] [address] 04/05/2024 1:20 PM EDT Office Visit Dermatology [address] [place] [address] Melanie Frank PA-C [address] [place] [address] [place] [address] 08/17/2024 1:40 PM EST Office Visit Family Medicine [address] [place] [phone] Jasson Denney MD [address] [place] [address] [place] [address] Pending Results Name Type Priority Associated Diagnoses Date /Time CBC WITH WBC DIFFERENTIAL Lab STAT Iron deficiency anemia, unspecified iron deficiency anemia type 09/30/2023 9:59 AM EDT IRON SCREEN, INCLUDING TIBC Lab STAT Iron deficiency anemia, unspecified iron deficiency anemia type 09/30/2023 9:59 AM EDT FERRITIN Lab STAT Iron deficiency anemia, unspecified iron deficiency anemia type 09/30/2023 9:59 AM EDT 25-HYDROXY VITAMIN D Lab STAT Chronic kidney disease, stage 3b (HCC) Vitamin D deficiency 09/30/2023 9:59 AM EDT PTH Lab STAT Chronic kidney disease, stage 3b (HCC) 09/30/2023 9:59 AM EDT RENAL FUNCTION PANEL Lab STAT Chronic kidney disease, stage 3b (HCC) 09/30/2023 9:59 AM EDT CBC Lab STAT Iron deficiency anemia, unspecified iron deficiency anemia type 09/30/2023 9:59 AM EDT DIFFERENTIAL, AUTOMATED Lab STAT Iron deficiency anemia, unspecified iron deficiency anemia type 09/30/2023 9:59 AM EDT Scheduled Procedures Name Priority Associated Diagnoses Date/Ti me COLONOSCOPY FLEXIBLE PROXIMA L DIAGNOSTIC Iron deficiency anemia 11/25/2023 2:15 PM EDT ESOPHAGOGASTRODUODENOSCOPY ( EGD), FLEXIBLE, TRANSORAL, DIAGNOSTIC Iron deficiency anemia 11/25/2023 2:15 PM EDT Health Maintenance Due Date Last Done Comments Alpha-1 Antitrypsin 1958 DTaP,Tdap,and Td Vaccines (1 - Tdap) 1959 Zoster Vaccines (1 of 2) 1990 *COPD SEVERITY VERIFIED BY PFT 01/02/2018 GFR 01/15/2024 07/17/2023, 06/16, 03/20/2023, Additional history exists HbA1c 03/20/2024 03/20/2023, 10/2021, 11/01/2020, Additional history exists Albumin/Creatinine Ratio 06/30/2024 024, 07/25/2022, 08/07/2021, Additional history exists O2 ASSESSMENT COMPLETED IN PAST YEAR FOR COPD 08/12/2024 08/12/2023 CKD HGB USE SMARTSET 38270 08/31/202408/31, 09/01/2023, 07/17/2023, Additional history exists CKD PHOS USE SMARTSET 46831 08/31/202408/14, 07/25/2022, 01/10/2022, Additional history exists DXA Scan 05/31/2026 05/31/2019, [...] this encounter Medical Devices Implanted Type Area Provider Relations Rep Device Identifier Shelf Expiration Date Model / Serial / Lot [place] Excluder Aaa Endoprothesis System-07/07/2019 Implanted:07/07/19 20 (Quantity not on file) Graft Description:Multiple implant s from system on same day [id number] Cordis Bx Velocity Cardiac Stent-06/02/2002 Implanted:06/02/20 02 (Quantity not on file) Stent CORDIS LEXA BX VELOCITY [id number] / / [id number] Cordis Bx Velocity Cardiac Stent-01/03/2003 Implanted:01/04/20 03 (Quantity not on file) Stent CORDIS LEXA VELOCITY [id number] / / [id number] documented as of this encounter Visit Diagnoses Diagnosis Iron deficiency anemia, unspecified iron deficiency anemia type Chronic kidney disease, stage 3b (HCC) Vitamin D deficiency Unspecified vitamin D deficiency Iron deficiency anemia Iron deficiency anemia, unspecified [...] the patient have Health Care Power of Performance Test Engineer? No Healthcare Agents on File Name Relationship Healthcare Agent Relationship Communication Gus Rosenbaum Jr. Adult Child Health Care R epresentative (appointed verbally by patient or by statute hierarchy) Care Teams Hospital Fellow Relationship Specialty Start Date End Date Jasson Denney MD [address] [place] [address] [place] [address] PCP - General Family Medicine 03/22/16 documented as of this encounter
--- OUTSIDE RECORDS SUMMARY | 2023-12-22 05:49 | External Medical Summary | Summary of Care ---
Author Name Unknown Organization [facility] Address [address] [place] [place] [address] Phone [phone] Care Team Providers Care Lunchroom Worker Name Role Phone Jasson Denney MD Primary Care Provide r Reason for Visit * Reason Comments IV Therapy Venofer 06/19 Encounter Details Date Type Department Care Team (Latest Contact Info) Description 10/09/2023 2:30 PM EDT Hem/Onc Treatment Hematology/Oncology Treatment, [facility] [address] [place] [address] Iron deficiency anemia, unspecified iron deficiency anemia type* Allergies Active Allergy Reactions Criticality Noted Date Comments Adhesive Tape 04/11/2006 Latex 06/06/2022 Other reaction(s): rash/itchy documented as of this encounter (statuses as of 10/09/2023) Medications Medication Sig Dispensed Refills Start Date [...] every night at bedtime. 0 07/12/2019 Active Phenylephrine-[place] Butter 0.25-88.44 % Rectal Suppository Administer into the rectum as needed for Hemorrhoids. 0 Active Nitroglycerin 0.4 MG Sublingual Tablet Sublingual (Nitrostat) Place 1 Tablet under the tongue as needed. 0 11/10/2020 Active Isosorbide Mononitrate ER 30 MG Oral Tablet Extended Release 24 Hour (Imdur)Indications: Coronary artery disease involving [place] coronary artery of [place] heart without angina pectoris TAKE 1 TABLET [...] as of this encounter (statuses as of 10/09/2023) Active Problems Problem Noted Date Diagnosed Date Iron deficiency anemia 08/12/2023 Encounter for antineoplastic chemotherapy 2022 Malignant neoplasm of left b reast in female, estrogen receptor positive 06/28/2022 Postherpetic neuralgia 06/28/2022 Hiatal hernia 08/07/2021 Schatzki's ring 08/07/2021 S/P angioplasty with stent 11/15/2020 Coronary artery disease invo lving [place] heart without angina pectoris 11/15/2020 Cardiac murmur [...] as of this encounter (statuses as of 10/09/2023) Resolved Problems Problem Noted Date Diagnosed Date [...] as of this encounter (statuses as of 10/09/2023) Immunizations Name Administration Dates Next Due COVID-19 mRNA, LNP-s, No Pre serve, 2-Dose Series ([employer]) 08/11/2020,07/21/2020 COVID-19, LNP-s, No Preserve , Dusty-sucrose, Ages 12+ ([employer]) 02/05/2022,08/07/2021 COVID-19, MRNA-LNP, 23-24, P F, 30 MCG/0.3 mL, 12 YRS AND ABOVE, IM ([employer]) 05/13/2023 Covid-19, Mrna, Lnp-s, Pf, B ivalent, 30 Mcg, IM, 12 yrs and above ([employer]) 06/11/2022 Pneumococcal Conjugate Vacc, 13 Valent [...] 10/13/2023 2:20 PM EDT Office Visit Nephrology [address] [place] [address] Maritza Parrish MD [address] [facility] [place] [address] 10/16/2023 11:00 AM EDT Imaging Radiology [address] [place] [address] 10/16/2023 1:30 PM EDT Hem/Onc Treatment Hematology/Oncolog y Treatment, [facility] [address] [facility] [address] [place] [phone] Daria, Chair 8 Hem Onc [facility] [address] [facility] [place] [address] 10/16/2023 3:30 PM EDT Office Visit Hematology/Oncolog y [facility] [address] [facility] [place] [phone] Abena Xiong CRNP [address] [place] [address] [place] [address] 10/23/2023 2:30 PM EDT Hem/Onc Treatment Hematology/Oncolog y Treatment, [facility] 200 [facility], [place] [phone] Daria, Chair 2 Hem Onc [facility] [address] [facility] [place] [address] 10/30/2023 2:30 PM EDT Hem/Onc Treatment Hematology/Oncolog y Treatment, [facility] [place] [phone] 11/25/2023 2:15 PM EDT Hospital Encounter [facility]O [facility], Endoscopy Room [facility] [address] [place] [phone] Nitin Austin, [address] [place] [address] 11/25/2023 2:15 PM EDT - 11/25/2023 3:00 PM EDT Surgery [facility]O [facility], Endoscopy Room [facility] [address] [place] [phone] Nitin Austin, [address] [place] [address] COLONOSCOPY FLEXIBLE PROXIMAL DIAGNOSTIC 11/26/2023 2:00 PM EDT Telemedicine Interventional Pain Center, [facility] [address] [place] [address] Sarah Richardson PA-C [address] [place] [address] 12/01/2023 10:00 AM EDT Laboratory Laboratory [address] [place] [phone] [address] [place] [address] 02/10/2024 1:00 PM EDT [address] [phone] Kahlil Mooney CRNP [address] [place] [address] [place] [address] 04/05/2024 1:20 PM EDT Office Visit Dermatology [address] [place] [address] Melanie Frank PA-C [address] [place] [address] [place] [address] 08/17/2024 1:40 PM EST Office Visit [address] [place] [phone] Jasson Denney MD [address] [place] [address] [place] [address] Scheduled Procedures Name Priority Associated Diagnoses Date/Ti [...] COPD 08/12/2024 08/12/2023 CKD HGB USE SMARTSET 45111 09/29/202409/29, 09/30/2023, 09/01/2023, Additional history exists CKD PHOS USE SMARTSET 22005 09/29/202409/14, 09/01/2023, 07/25/2022, Additional history exists Albumin/Creatinine [...] this encounter Medical Devices Implanted Type Area Medical Office Supervisor Device Identifier Shelf Expiration Date Model / Serial / Lot [place] Excluder Aaa Endoprothesis System-07/07/2019 Implanted:07/07/19 20 (Quantity not on file) Graft Description:Multiple implant s from system on same day [id number] Cordis Bx Velocity Cardiac Stent-06/02/2002 Implanted:06/02/20 02 (Quantity not on file) Stent CORDIS LEXA BX VELOCITY [id number] / / [id number] Cordis Bx Velocity Cardiac Stent-01/03/2003 Implanted:01/04/20 03 (Quantity not on file) Stent CORDIS LEXA VELOCITY [id number] / / [id number] documented as of this encounter Visit Diagnoses [...] ONCE PRN Other, Hypersensitivity Reaction, Starting on Fri10/09/23 at 1441, Until Fri10/10/23 at 1440, For 24 hours EPINEPHrine 1 MG/ML inj 0.3 mg 0.3 mg, Intramuscular, ONCE PRN Other, Hypersensitivity Reaction or Anaphylaxis, Starting on Fri10/09/23 at 1441, Until Fri10/10/23 at 1440, For 24 hours hEParin 100 UNIT/ML Lock Flush inj 500 Units 500 Units (5 mL), IV Lock, PRN Other, IV Flush, Starting on Fri10/09/23 at 1441, Until Fri10/10/23 at 1440, For 24 hours, Do not flush if lock, PICC, or central line not in place; IV infusing or unable to flush. Hydrocortisone Sod Suc (PF) (Solu-Cortef) inj 100 mg 100 mg, IV Push, ONCE PRN Other, Hypersensitivity Reaction, Starting on Fri10/09/23 at 1441, Until Fri10/10/23 at 1440, For 24 hours NSS infusion 500 mL, Intravenous, at 50 mL/hr, CONTINUOUS, Starting on Fri10/09/23 at 1545, Until Fri10/10/23 at 0144 Start Infusion 10/09/2023 2:38 PM EDT 500 mL 50 mL/hr oxygen GAS Inhalation, OXYGEN, First dose on Fri10/09/23 at 1600, Until Discontinued, Device/Managed by: Low [...] Push, PRN Other, IV Flush, Starting on Fri10/09/23 at 1441, Until Fri10/10/23 at 1440, For 24 hours, Do not flush if [...] 2:38 PM EDT 300 mg 193.33 mL/hr documented [...] the patient have Health Care Power of Assurance Services Manager Health Care? No Healthcare Agents on File Name Relationship Healthcare Agent Relationship Communication Gus Rosenbaum Jr. Adult Child Health Care R epresentative (appointed verbally by patient or by statute hierarchy) Care Teams Lunchroom Worker Relationship Specialty Start Date End Date Jasson Denney MD [address] [place] [address] [place] [address] PCP - General Family Medicine 03/22/16 documented as of this encounter
--- OUTSIDE RECORDS SUMMARY | 2023-12-22 05:50 | External Medical Summary | Summary of Care ---
Author Name Unknown Organization [facility] Address [address] [facility] [place] [address] Phone [phone] Care Team Providers Care Peer Counselor Name Role Phone Jasson Denney MD Primary Care Provide r Reason for Visit * Reason Comments Outpatient Testing Encounter Details Date Type Department Care Team (Late st Contact Info) Description 09/30/2023 10:00 AM EDT Laboratory Laboratory [address] [place] [phone] [facility] [address] [place] [address] Iron deficiency anemia, unspecified iron deficiency anemia [...] every night at bedtime. 0 07/12/2019 Active Phenylephrine-[place] Butter 0.25-88.44 % Rectal Suppository Administer into the rectum as needed for Hemorrhoids. 0 Active Nitroglycerin 0.4 MG Sublingual Tablet Sublingual (Nitrostat) Place 1 Tablet under the tongue as needed. 0 11/10/2020 Active Isosorbide Mononitrate ER 30 MG Oral Tablet Extended Release 24 Hour (Imdur)Indications: Coronary artery disease involving enterprise coronary artery of enterprise heart without angina pectoris TAKE 1 TABLET [...] stent 11/15/2020 Coronary artery disease invo lving enterprise heart without angina pectoris 11/15/2020 Cardiac murmur [...] mRNA, LNP-s, No Pre serve, 2-Dose Series ([employer]) 08/11/2020,07/21/2020 COVID-19, LNP-s, No Preserve , Dusty-sucrose, Ages 12+ (Pfizer) 02/05/2022,08/07/2021 COVID-19, MRNA-LNP, 23-24, P F, 30 MCG/0.3 mL, 12 YRS AND ABOVE, IM ([employer]) 05/13/2023 Covid-19, Mrna, Lnp-s, Pf, B ivalent, 30 Mcg, IM, 12 yrs and above ([employer]) 06/11/2022 Pneumococcal Conjugate Vacc, 13 Valent (Prevnar) [...] 2:20 PM EDT Office Visit Nephrology [address] [place] [address] Maritza Parrish MD [address] [place] [address] 10/16/2023 11:00 AM EDT Imaging Radiology [address] [place] [address] 10/16/2023 3:30 PM EDT Office Visit Hematology/Oncolog y [place] Vickey [place] [address] [place] [phone] Abena Xiong CRNP [address] [place] [address] 11/25/2023 2:15 PM EDT Hospital Encounter ENDO [facility], Endoscopy Room [facility] [address] [place] [address] Nitin Austin, DO [address] [place] [address] 11/25/2023 2:15 PM EDT - 11/25/2023 3:00 PM EDT Surgery ENDO [facility], Endoscopy Room [facility] [address] [place] [address] Nitin Austin, DO [address] [place] [address] COLONOSCOPY FLEXIBLE PROXIMAL DIAGNOSTIC 11/26/2023 2:00 PM EDT Telemedicine Interventional Pain Center, [facility] [address] [place] [address] Sarah Richardson PA-C [address] [place] [address] 02/10/2024 1:00 PM EDT Office Visit Family Medicine [address] [place] [phone] Kahlil Mooney CRNP [address] [place] [address] [place] [address] 04/05/2024 1:20 PM EDT Office Visit Dermatology [address] [place] [address] Melanie Frank PA-C [address] [place] [address] [place] [address] 08/17/2024 1:40 PM EST Office Visit Family Medicine [address] [place] [phone] Jasson Denney MD [address] [place] [address] [place] [address] Pending Results Name Type Priority Associated Diagnoses [...] COPD 08/12/2024 08/12/2023 CKD HGB USE SMARTSET 64090 08/31/202408/31, 09/01/2023, 07/17/2023, Additional history exists CKD PHOS USE SMARTSET 87653 08/31/202408/14, 07/25/2022, 01/10/2022, Additional history exists DXA [...] this encounter Medical Devices Implanted Type Area Repair Operator Device Identifier Shelf Expiration Date Model / Serial / Lot [place] Excluder Aaa Endoprothesis System-07/07/2019 Implanted:07/07/19 20 (Quantity not on file) Graft Description:Multiple implant s from system on same day [id number] Cordis Bx Velocity Cardiac Stent-06/02/2002 Implanted:06/02/20 02 (Quantity not on file) Stent CORDIS LEXA BX VELOCITY [id number] / / [id number] Cordis Bx Velocity Cardiac Stent-01/03/2003 Implanted:01/04/20 03 (Quantity not on file) Stent CORDIS LEXA VELOCITY [id number] / / [id number] documented as of this encounter Visit Diagnoses [...] the patient have Health Care Power of Broadcast Field Supervisor? No Healthcare Agents on File Name Relationship Healthcare Agent Relationship Communication Gus Rosenbaum Jr. Adult Child Health Care R epresentative (appointed verbally by patient or by statute hierarchy) Care Teams Peer Counselor Relationship Specialty Start Date End Date Jasson Denney MD [address] [place] [address] [place] [address] PCP - General Family Medicine 03/22/16 documented as of this encounter
--- OUTSIDE RECORDS SUMMARY | 2023-12-22 05:50 | External Medical Summary ---
Author Name Unknown Address Unknown Organization K01:[facility] [place] [address] [place] [address] Laboratory Report Ordering Provider Test Date Status LIONEL GILL 09/30/2023 09:59:41 Final Observation Date Value Abnormality Reference (Units ) Status Parathyrin.intact [Mass/volume] in Serum or Plasma 09/30/2023 09:59:41 74 Above high normal 15-65 (pg/mL) Final Performing Location [facility] [place] [address] [place] [address]
--- OUTSIDE RECORDS SUMMARY | 2023-12-22 05:50 | External Medical Summary | Summary of Care ---
Author Name Unknown Organization [facility] Address [address] [facility] [place] [address] Phone [phone] Care Team Providers Care Neurodiagnostic Technician Name Role Phone Jasson Denney MD Primary Care Provide r Reason for Visit * Reason Onset Date Comments Follow Up 09/09/2023 Encounter Details Date Type Department Care Team (Late st Contact Info) Description 09/09/2023 Telephone Hematology/Oncology [facility] [place] [facility] [phone] Abena Xiong CRNP [address] [place] [address] Follow Up Allergies Active Allergy Reactions Criticality Noted Date Comments Adhesive Tape 04/11/2006 Latex 06/06/2022 Other reaction(s): rash/itchy documented as of this encounter (statuses as of 09/12/2023) Medications Medication Sig Dispensed Refills Start Date [...] every night at bedtime. 0 07/12/2019 Active Phenylephrine-[place] Butter 0.25-88.44 % Rectal Suppository Administer into the rectum as needed for Hemorrhoids. 0 Active Nitroglycerin 0.4 MG Sublingual Tablet Sublingual (Nitrostat) Place 1 Tablet under the tongue as needed. 0 11/10/2020 Active Isosorbide Mononitrate ER 30 MG Oral Tablet Extended Release 24 Hour (Imdur)Indications: Coronary artery disease involving shoshone-bannock coronary artery of shoshone-bannock heart without angina pectoris TAKE 1 TABLET [...] as of this encounter (statuses as of 09/12/2023) Active Problems Problem Noted Date Diagnosed Date Iron deficiency anemia 08/12/2023 Encounter for antineoplastic chemotherapy 2022 Malignant neoplasm of left b reast in female, estrogen receptor positive 06/28/2022 Postherpetic neuralgia 06/28/2022 Hiatal hernia 08/07/2021 Schatzki's ring 08/07/2021 S/P angioplasty with stent 11/15/2020 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 11/15/2020 Cardiac murmur [...] as of this encounter (statuses as of 09/12/2023) Resolved Problems Problem Noted Date Diagnosed Date [...] as of this encounter (statuses as of 09/12/2023) Immunizations Name Administration Dates Next Due COVID-19 mRNA, LNP-s, No Pre serve, 2-Dose Series ([employer] [place]) 08/11/2020,07/21/2020 COVID-19, LNP-s, No Preserve , Dusty-sucrose, Ages 12+ ([employer] [place]) 02/05/2022,08/07/2021 COVID-19, MRNA-LNP, 23-24, P F, 30 MCG/0.3 mL, 12 YRS AND ABOVE, IM ([employer]) 05/13/2023 Covid-19, Mrna, Lnp-s, Pf, B ivalent, 30 Mcg, IM, 12 yrs and above ([employer] [place]) 06/11/2022 Pneumococcal Conjugate Vacc, 13 Valent (Prevnar) [...] encounter Miscellaneous Notes * Addendum Note - Charity Guallpa RN - 09/12/2023 9:54 AM EDTAddended by: CHARITY GUALLPA on: 09/12/2023 09:54 AM Modules accepted: Orders * Telephone Encounter - Charity Guallpa RN - 09/12/2023 9:53 AM EDT Ckd labs ordered and will be done on 09/30/23 with Hem/onc labs as ordered. * Telephone Encounter - Leni Salazar OSA - 09/09/2023 10:16 AM EDT Scheduled the labs per note below * Telephone Encounter - Ty Alonso RN - 09/09/2023 9:48 AM EDT Called patient, she is aware. Scheduling- please add lab appt on 09/29 @ [facility] "Ferritin, Iron, CBCD" Dr. Parrish- Patient has lab work scheduled for you on 10/12, ok to do this lab work when patient does her labs with us? Can add CMP to current schedule. Thanks. * Telephone Encounter - Ty Alonso RN - 09/09/2023 8:59 AM EDT Called patient to follow up in regards to oral iron. She is tolerating this better, is taking medications to help with her bowels which is working well and has been taking it around meal time to helpdecrease stomach discomfort. Abena- deandra, when would you like her to re-check labs? She has been taking Vitron C daily x 1 week. documented in this encounter Plan of Treatment Upcoming Encounters Date Type Department Care Team (Latest Contact Info) Description 09/24/2023 2:30 PM EDT Office Visit Interventional Pain Center, [facility] [address] [place] [address] Sarah Richardson PA-C [address] [place] [address] 09/30/2023 10:00 AM EDT Laboratory Laboratory [address] [place] [phone] [address] [place] [address] 10/13/2023 2:20 PM EDT Office Visit Nephrology [address] [place] [address] Maritza Parrish MD [address] [place] [address] 10/16/2023 3:30 PM EDT Office [facility] [employer] [address] [place], [place] [phone] Abnea Xiong CRNP [address] [place] [address] 11/25/2023 2:15 PM EDT Hospital Encounter ENDO [facility], Endoscopy Room [facility] [address] [place] [phone] Nitin Austin, DO [address] [place] [address] 11/25/2023 2:15 PM EDT - 11/25/2023 3:00 PM EDT Surgery ENDO [facility], Endoscopy Room [facility] [address] [place] [phone] Nitin Austin, DO [address] [place] [address] COLONOSCOPY FLEXIBLE PROXIMAL DIAGNOSTIC 02/10/2024 1:00 PM EDT Office Visit Family Medicine [address] [place] [phone] Kahlil Mooney CRNP [address] [place] [address] [place] [address] 04/05/2024 1:20 PM EDT Office Visit Dermatology [address] [place] [address] Melanie Frank PA-C [address] [place] [address] [place] [address] 08/17/2024 1:40 PM EST Office Visit Family Medicine [address] [place] [phone] Jasson Denney MD [address] [place] [address] [place] [address] Scheduled Orders Name Type Priority Associated Diagnoses Orde r Schedule 25-HYDROXY VITAMIN D Lab STAT Chronic kidney disease, stage 3b (HCC) Vitamin D deficiency Expected: 09/12/2023, Expires: 09/11/2024 ALBUMIN / CREATININE RATIO, URINE Lab STAT Chronic kidney disease, stage 3b (HCC) Expected: 09/12/2023, Expires: 09/11/2024 PTH Lab STAT Chronic kidney disease, stage 3b (HCC) Expected: 09/12/2023, Expires: 09/11/2024 RENAL FUNCTION PANEL Lab STAT Chronic kidney disease, stage 3b (HCC) Expected: 09/12/2023, Expires: 09/11/2024 Scheduled Procedures Name Priority Associated Diagnoses Date/Ti [...] BY PFT 01/02/2018 Depression Screening 08/07/2022 08/07/2021 GFR 01/15/2024 07/17/2023, 06/16, 03/20/2023, Additional history exists HbA1c 03/20/2024 03/20/2023, 10/2021, 11/01/2020, Additional history exists Albumin/Creatinine Ratio 06/30/2024 024, 07/25/2022, 08/07/2021, Additional history exists O2 ASSESSMENT COMPLETED IN PAST YEAR FOR COPD 08/12/2024 08/12/2023 CKD HGB USE SMARTSET 45462 08/31/202408/31, 09/01/2023, 07/17/2023, Additional history exists CKD PHOS USE SMARTSET 07246 08/31/202408/14, 07/25/2022, 01/10/2022, Additional history exists DXA [...] this encounter Medical Devices Implanted Type Area Stripper Preliminary Device Identifier Shelf Expiration Date Model / Serial / Lot [place] Excluder Aaa Endoprothesis System-07/07/2019 Implanted:07/07/19 20 (Quantity not on file) Graft Description:Multiple implant s from system on same day [id number] Cordis Bx Velocity Cardiac Stent-06/02/2002 Implanted:06/02/20 02 (Quantity not on file) Stent CORDIS LEXA BX VELOCITY [id number] / / [id number] Cordis Bx Velocity Cardiac Stent-01/03/2003 Implanted:01/04/20 03 (Quantity not on file) Stent CORDIS LEXA VELOCITY [id number] / / [id number] documented as of this encounter Visit Diagnoses Diagnosis Chronic kidney disease, stage 3b (HCC)- Primary Vitamin D deficiency Unspecified vitamin D deficiency [...] the patient have Health Care Power of Microwave Engineer? No Healthcare Agents on File Name Relationship Healthcare Agent Relationship Communication Gus Rosenbaum Jr. Adult Child Health Care R epresentative (appointed verbally by patient or by statute hierarchy) Care Teams Neurodiagnostic Technician Relationship Specialty Start Date End Date Jasson Denney MD [address] [place] [address] [place] [address] PCP - General Family Medicine 03/22/16 documented as of this encounter
--- OUTSIDE RECORDS SUMMARY | 2023-12-22 05:50 | External Medical Summary | Summary of Care ---
Author Name Unknown Organization [facility] Address [address] [place] [address] Phone [phone] Care Team Providers Care [employer] Principal Name Role Phone Jasson Denney MD Primary Care Provide r Reason for Visit * Reason Onset Date Comments case management 08/04/2023 Encounter Details Date Type Department Care Team (Late st Contact Info) Description 08/04/2023 Telephone Care Coordination and Integration [address], [place] [phone] Leigh Gmoez RN [address], [place] [phone] case management Allergies Active Allergy Reactions Criticality Noted Date Comments Adhesive Tape 04/11/2006 Latex 06/06/2022 Other reaction(s): rash/itchy documented as of this encounter (statuses as of 09/29/2023) Medications Medication Sig Dispensed Refills Start Date [...] every night at bedtime. 0 07/12/2019 Active Phenylephrine-[place] Butter 0.25-88.44 % Rectal Suppository Administer into the rectum as needed for Hemorrhoids. 0 Active Nitroglycerin 0.4 MG Sublingual Tablet Sublingual (Nitrostat) Place 1 Tablet under the tongue as needed. 0 11/10/2020 Active Isosorbide Mononitrate ER 30 MG Oral Tablet Extended Release 24 Hour (Imdur)Indications: Coronary artery disease involving [place] coronary artery of [place] heart without angina pectoris TAKE 1 TABLET [...] the morning. 90 Tablet 1 07/21/2023 Active documented as of this encounter (statuses as of 09/29/2023) Active Problems Problem Noted Date Diagnosed Date Iron deficiency anemia 08/12/2023 Encounter for antineoplastic chemotherapy 2022 Malignant neoplasm of left b reast in female, estrogen receptor positive 06/28/2022 Postherpetic neuralgia 06/28/2022 Hiatal hernia 08/07/2021 Schatzki's ring 08/07/2021 S/P angioplasty with stent 11/15/2020 Coronary artery disease invo lving [place] heart without angina pectoris 11/15/2020 Cardiac murmur [...] as of this encounter (statuses as of 09/29/2023) Resolved Problems Problem Noted Date Diagnosed Date [...] as of this encounter (statuses as of 09/29/2023) Immunizations Name Administration Dates Next Due COVID-19 mRNA, LNP-s, No Pre serve, 2-Dose Series ([employer]) 08/11/2020,07/21/2020 COVID-19, LNP-s, No Preserve , Dusty-sucrose, Ages 12+ ([employer]) 02/05/2022,08/07/2021 COVID-19, MRNA-LNP, 23-24, P F, 30 MCG/0.3 mL, 12 YRS AND ABOVE, IM ([employer]) 05/13/2023 Covid-19, Mrna, Lnp-s, Pf, B ivalent, 30 Mcg, IM, 12 yrs and above ([employer]) 06/11/2022 Pneumococcal Conjugate Vacc, 13 Valent (Prevnar) [...] encounter Miscellaneous Notes * Telephone Encounter - Leigh Gomez RN - 08/04/2023 7:43 AM EST Please discharge the patient from [facility] ([facility] Device(s)/IVR to be discontinued: 08/03/23 due to ROMY period being over. Thank you. documented in this encounter Plan of Treatment Upcoming Encounters Date Type Department Care Team (Latest Contact Info) Description 09/30/2023 10:00 AM EDT Laboratory Laboratory [address] [place] [phone] [place] [address] 10/13/2023 2:20 PM EDT Office Visit Nephrology [address] [place] [address] Maritza Parrish MD [address] [place] [address] 10/16/2023 11:00 AM EDT Imaging Radiology [address] [place] [address] 10/16/2023 3:30 PM EDT Office Visit Hematology/Oncolog y [place] Vickey Brandt [address] [place] [phone] Abena Xiong CRNP [address] [place] [address] 11/25/2023 2:15 PM EDT Hospital Encounter ENDO [facility], Endoscopy Room [facility] [address] [place], [place] [phone] Nitin Austin, DO [address] [place] [address] 11/25/2023 2:15 PM EDT - 11/25/2023 3:00 PM EDT Surgery [facility]O [facility], Endoscopy Room [facility] [address] [place] [address] Nitin Austin, DO [address] [place] [address] COLONOSCOPY FLEXIBLE PROXIMAL DIAGNOSTIC 11/26/2023 2:00 PM EDT Telemedicine Interventional Pain Center, [facility] [address] [place] [address] Sarah Richardson PA-C [address] [place] [address] 02/10/2024 1:00 PM EDT Office Visit Family Medicine [address] [place] [phone] Kahlil Mooney CRNP [address] [place] [address] [place] [address] 04/05/2024 1:20 PM EDT Office Visit Dermatology [address] [place] [address] Melanie Frank PA-C [address] [place] [address] [place] [address] 08/17/2024 1:40 PM EST Office Visit Family Medicine [address] [place] [phone] Jasson Denney MD [address] [place] [address] [place] [address] Scheduled Procedures Name Priority Associated Diagnoses Date/Ti [...] COPD 08/12/2024 08/12/2023 CKD HGB USE SMARTSET 48887 08/31/202408/31, 09/01/2023, 07/17/2023, Additional history exists CKD PHOS USE SMARTSET 15512 08/31/202408/14, 07/25/2022, 01/10/2022, Additional history exists DXA [...] this encounter Medical Devices Implanted Type Area Crm Functional Analyst Device Identifier Shelf Expiration Date Model / Serial / Lot [place] Excluder Aaa Endoprothesis System-07/07/2019 Implanted:07/07/19 20 (Quantity not on file) Graft Description:Multiple implant s from system on same day [id number] Cordis Bx Velocity Cardiac Stent-06/02/2002 Implanted:06/02/20 02 (Quantity not on file) Stent CORDIS LEXA BX VELOCITY [id number] / / [id number] Cordis Bx Velocity Cardiac Stent-01/03/2003 Implanted:01/04/20 03 (Quantity not on file) Stent CORDIS LEXA VELOCITY [id number] / / [id number] documented as of this encounter Advance Directives [...] the patient have Health Care Power of Transfusion Nurse? No Healthcare Agents on File Name Relationship Healthcare Agent Relationship Communication Gus Rosenbaum Jr. Adult Child Health Care R epresentative (appointed verbally by patient or by statute hierarchy) Care Teams High School Principal Relationship Specialty Start Date End Date Jasson Denney MD [address] [place] [address] [place] [address] PCP - General Family Medicine 03/22/16 documented as of this encounter
--- OUTSIDE RECORDS SUMMARY | 2023-12-22 05:50 | External Medical Summary ---
Author Name Unknown Address Unknown Organization K01:[facility] [place] [address] [place] [address] Laboratory Report Ordering Provider Test Date Status LIONEL GILL 09/30/2023 09:59:41 Final Observation Date Value Abnormality Reference (Units ) Status WBC, Total 09/30/2023 09:59:41 7.04 4.00-10.80 (K/uL) Final RBC 09/30/2023 09:59:41 3.09 3.85-5.15 (M/uL) Final Hemoglobin 09/30/2023 09:59:41 8.5 Below low normal 12.0-15.3 (g/dL) Final HCT 09/30/2023 09:59:41 29.0 Below low normal 36.0-45.2 (%) Final MCV 09/30/2023 09:59:41 93.9 81.5-97.5 (fL) Final MCH 09/30/2023 09:59:41 27.5 27.0-34.0 (pg) Final MCHC 09/30/2023 09:59:41 29.3 32.0-36.0 (g/dL) Final RDW 09/30/2023 09:59:41 16.4 11.5-15.5 (%) Final Platelets 09/30/2023 09:59:41 375 140-400 (K/uL) Final MPV 09/30/2023 09:59:41 9.8 6.6-11.1 (fL) Final Nucleated erythrocytes/100 leukocytes [Ratio] in Blood by Automated count 09/30/2023 09:59:41 0 <=0 (/100 WBCs) Final Performing Location [facility] [place] [address] [place] [address]
--- OUTSIDE RECORDS SUMMARY | 2023-12-22 05:50 | External Medical Summary ---
Author Name Unknown Address Unknown Organization K01:[facility] [place] [address] [facility] [place] [address] Laboratory Report Ordering Provider Test Date Status LIONEL GILL 09/30/2023 09:59:41 Final Observation Date Value Abnormality Reference (Units ) Status SYNC LEUKOCYTES IN BLOOD BY AUTOMATED COUNT 09/30/2023 09:59:41 7.04 4.00-10.80 (K/uL) Final Segs 09/30/2023 09:59:41 81.5 Above high normal 40.0-75.0 (%) Final Lymphs % 09/30/2023 09:59:41 9.4 Below low normal 18.0-42.0 (%) Final Monos 09/30/2023 09:59:41 4.8 1.0-11.0 (%) Final Eosinophils 09/30/2023 09:59:41 3.0 0.0-6.0 (%) Final Basos 09/30/2023 09:59:41 0.9 0.0-2.0 (%) Final Immature Granulocyte, Percent 09/30/2023 09:59:41 0.4 0.0-2.0 (%) Final Absolute Segs 09/30/2023 09:59:41 5.74 1.80-7.70 (K/uL) Final Lymphs, absolute 09/30/2023 09:59:41 0.66 Below low normal 1.00-4.80 (K/ul) Final Monos, Abs 09/30/2023 09:59:41 0.34 0.00-1.10 (K/uL) Final Eos, Abs 09/30/2023 09:59:41 0.21 0.00-0.70 (K/uL) Final Basos, Abs 09/30/2023 09:59:41 0.06 0.00-0.20 (K/uL) Final Immature Granulocytes, Number 09/30/2023 09:59:41 0.03 0.00-0.20 (K/uL) Final Performing Location [facility] [place] [facility] [place] [address]
--- OUTSIDE RECORDS SUMMARY | 2023-12-22 05:50 | External Medical Summary | Summary of Care ---
Author Name Unknown Organization [facility] Address [address] [place] [facility] [place] [address] Phone [phone] Care Team Providers Care Service Station Cashier Name Role Phone Jasson Denney MD Primary Care Provide r Reason for Visit * Reason Onset Date Comments Follow Up 09/09/2023 Encounter Details Date Type Department Care Team (Late st Contact Info) Description 09/09/2023 Telephone Hematology/Oncology [facility] [place] [address] [facility] [phone] Abena Xiong CRNP [address] [place] [address] Follow Up Allergies Active Allergy Reactions [...] every night at bedtime. 0 07/12/2019 Active Phenylephrine-[place] Butter 0.25-88.44 % Rectal Suppository Administer into the rectum as needed for Hemorrhoids. 0 Active Nitroglycerin 0.4 MG Sublingual Tablet Sublingual (Nitrostat) Place 1 Tablet under the tongue as needed. 0 11/10/2020 Active Isosorbide Mononitrate ER 30 MG Oral Tablet Extended Release 24 Hour (Imdur)Indications: Coronary artery disease involving sioux coronary artery of sioux heart without angina pectoris TAKE 1 TABLET [...] stent 11/15/2020 Coronary artery disease invo lving sioux heart without angina pectoris 11/15/2020 Cardiac murmur [...] mRNA, LNP-s, No Pre serve, 2-Dose Series ([employer]) 08/11/2020,07/21/2020 COVID-19, LNP-s, No Preserve , Dusty-sucrose, Ages 12+ ([employer]iragiu) 02/05/2022,08/07/2021 COVID-19, MRNA-LNP, 23-24, P F, 30 MCG/0.3 mL, 12 YRS AND ABOVE, IM (Diabetes America-Comirnat) 05/13/2023 Covid-19, Mrna, Lnp-s, Pf, B ivalent, 30 Mcg, IM, 12 yrs and above ([employer]iragiu) 06/11/2022 Pneumococcal Conjugate Vacc, 13 Valent (Prevnar) [...] please add lab appt on 09/29 @ [facility] "Ferritin, Iron, CBCD" Dr. Parrish- Patient [...] PM EDT Office Visit Interventional Pain Center, [facility] [address] [place] [address] Sarah Richardson PA-C [address] [place] [address] 09/30/2023 10:00 AM EDT Laboratory Laboratory [address] [place] [phone] [address] [place] [address] 10/13/2023 2:20 PM EDT Office Visit Nephrology [address] [place] [address] Maritza Parrish MD 200 [facility] [place] [address] 10/16/2023 3:30 PM EDT Office Visit Hematology/Oncolog y [facility] [place] 200 [facility] [place] [phone] Abena Xiong CRNP [address] [place] [address] 11/25/2023 2:15 PM EDT Hospital Encounter ENDO [facility], Endoscopy Room [facility] [address] [place], [place] [phone] Nitin Austin, DO [address] [place], [place] [address] 11/25/2023 2:15 PM EDT - 11/25/2023 3:00 PM EDT Surgery ENDO [facility], Endoscopy Room [facility] [address] [place], [place] [phone] Nitin Austin, DO [address] [place], [place] [address] COLONOSCOPY FLEXIBLE PROXIMAL DIAGNOSTIC 02/10/2024 1:00 PM EDT [address] [phone] Kahlil Mooney CRNP [address] [place] [address] [place] [address] 04/05/2024 1:20 PM EDT Office Visit Dermatology [address] [place] [address] Melanie Frank PA-C [address] [place] [address] [place] [address] 08/17/2024 1:40 PM EST Office Visit [address] [place] [phone] Jasson Denney MD [address] [place] [address] [place] [address] Scheduled Procedures Name Priority Associated Diagnoses Date/Ti [...] COPD 08/12/2024 08/12/2023 CKD HGB USE SMARTSET 18446 08/31/202408/31, 09/01/2023, 07/17/2023, Additional history exists CKD PHOS USE SMARTSET 16224 08/31/202408/14, 07/25/2022, 01/10/2022, Additional history exists DXA [...] this encounter Medical Devices Implanted Type Area Realtime Reporter Device Identifier Shelf Expiration Date Model / Serial / Lot [place] Excluder Aaa Endoprothesis System-07/07/2019 Implanted:07/07/19 20 (Quantity not on file) Graft Description:Multiple implant s from system on same day [id number] Cordis Bx Velocity Cardiac Stent-06/02/2002 Implanted:06/02/20 02 (Quantity not on file) Stent CORDIS LEXA BX VELOCITY [id number] / / [id number] Cordis Bx Velocity Cardiac Stent-01/03/2003 Implanted:01/04/20 03 (Quantity not on file) Stent CORDIS LEXA VELOCITY [id number] / / [id number] documented as of this encounter Advance Directives [...] the patient have Health Care Power of Filling Separator? No Healthcare Agents on File Name Relationship Healthcare Agent Relationship Communication Gus Rosenbaum Jr. Adult Child Health Care R epresentative (appointed verbally by patient or by statute hierarchy) Care Teams Service Station Cashier Relationship Specialty Start Date End Date Jasson Denney MD [address] [place] [address] [place] [address] PCP - General Family Medicine 03/22/16 documented as of this encounter
--- OUTSIDE RECORDS SUMMARY | 2023-12-22 05:50 | External Medical Summary ---
Author Name Unknown Address Unknown Organization K01:[facility] [place] [address] [place] [address] Laboratory Report Ordering Provider Test Date Status LIONEL GILL 09/30/2023 09:59:41 Final Observation Date Value Abnormality Reference (Units ) Status Iron 09/30/2023 09:59:41 23 Below low normal 33-151 (ug/dL) Final Iron-binding capacity 09/30/2023 09:59:41 286 250-425 (ug/dL) Final Transferrin Sat % 09/30/2023 09:59:41 8 Below low normal 15-55 (%) Final Performing Location LAB[facility]ATORY [facility] - [address] [place] [address]
--- OUTSIDE RECORDS SUMMARY | 2023-12-22 05:50 | External Medical Summary ---
Author Name Unknown Address Unknown Organization K01:[facility] [place] - [address] [facility] [address] [place] [address] Laboratory Report Ordering Provider Test Date Status LIONEL GILL 09/30/2023 09:59:41 Final Observation Date Value Abnormality Reference (Units ) Status Ferritin 09/30/2023 09:59:41 41 13-150 (ng /mL) Final Postmenopausal women have hi gher ferritin levels than pre-menopausal women. The above reference interval is based on pre-menopausal women. Performing Location LAB[facility]ATORY [facility] - [address] [place] [address]
--- OUTSIDE RECORDS SUMMARY | 2023-12-22 05:50 | External Medical Summary | Summary of Care ---
Author Name Unknown Organization [facility] Address [address] [facility] [place] [address] Phone [phone] Care Team Providers Care Mechanical Shovel Operator Name Role Phone Jasson Denney MD Primary Care Provide r Reason for Visit * Reason Onset Date Comments Follow Up 09/29/2023 Encounter Details Date Type Department Care Team (Late st Contact Info) Description 09/29/2023 Telephone Interventional Pain Center, [facility] [address] [place] [address] Sarah Richardson PA-C [address] [place] [address] Follow Up Allergies Active Allergy Reactions Criticality [...] every night at bedtime. 0 07/12/2019 Active Phenylephrine-[place] Butter 0.25-88.44 % Rectal Suppository Administer into the rectum as needed for Hemorrhoids. 0 Active Nitroglycerin 0.4 MG Sublingual Tablet Sublingual (Nitrostat) Place 1 Tablet under the tongue as needed. 0 11/10/2020 Active Isosorbide Mononitrate ER 30 MG Oral Tablet Extended Release 24 Hour (Imdur)Indications: Coronary artery disease involving [place] coronary artery of [place] heart without angina pectoris TAKE 1 TABLET [...] stent 11/15/2020 Coronary artery disease invo lving [place] heart without angina pectoris 11/15/2020 Cardiac murmur [...] mRNA, LNP-s, No Pre serve, 2-Dose Series ([employer]) 08/11/2020,07/21/2020 COVID-19, LNP-s, No Preserve , Dusty-sucrose, Ages 12+ (Pfizer) 02/05/2022,08/07/2021 COVID-19, MRNA-LNP, 23-24, P F, 30 MCG/0.3 mL, 12 YRS AND ABOVE, IM ([facility]) 05/13/2023 Covid-19, Mrna, Lnp-s, Pf, B ivalent, 30 Mcg, IM, 12 yrs and above ([employer]) 06/11/2022 Pneumococcal Conjugate Vacc, 13 Valent (Prevnar) [...] encounter Miscellaneous Notes * Telephone Encounter - Sarah Richardson PA-C - 09/29/2023 8:18 AM EDT Cardiology has approved of possible plavix hold for GARRISON. Will await MRI results. Can discuss possible GARRISON including risks/benefits during follow up 11/25. * Telephone Encounter - Sarah Richardson PA-C - 09/29/2023 8:17 AM EDT ----- Message from Guillermo Mejia DO sent at 09/29/2023 7:00 AM EDT ----- Sarah: It's always a risk vs benefit. The patient's vascular disease has been stable for serial years. I think if she really needs the injection for pain relief and quality of life then it's ok to stop her Plavix. Dr. Mejia ----- Message ----- From: Sarah Richardson PA-C Sent: 09/25/2023 7:48 AM EDT To: Guillermo Mejia, DO Morning Dr. Mejia, Seeking your opinion regarding appropriateness of possible seven day plavix hold prior to epidural steroid injection. yo know, this patient holds significant hx CAD with cardiac stents, peripheralvascular disease. Last evaluated by cardiology May 2023. Sarah Evans documented in this encounter Plan of Treatment Upcoming Encounters Date Type Department Care Team (Latest Contact Info) Description 09/30/2023 10:00 AM EDT Laboratory Laboratory [address] [place] [phone] [place] [address] 10/13/2023 2:20 PM EDT Office Visit Nephrology [address] [place] [address] Maritza Parrish MD [address] [place] [address] 10/16/2023 11:00 AM EDT Imaging Radiology [address] [place] [address] 10/16/2023 3:30 PM EDT Office Visit Hematology/Oncolog y [facility] [place] [address] [place] [phone] Abena Xiong CRNP [address] [place] [address] 11/25/2023 2:15 PM EDT Hospital Encounter ENDO [facility], Endoscopy Room [facility] [address] [facility] [place] [phone] Nitin Austin, DO [address] [place] [address] 11/25/2023 2:15 PM EDT - 11/25/2023 3:00 PM EDT Surgery ENDO [facility], Endoscopy Room [facility] [address] [place] [phone] Nitin Austin, DO [address] [place] [address] COLONOSCOPY FLEXIBLE PROXIMAL DIAGNOSTIC 11/26/2023 2:00 PM EDT Telemedicine Interventional Pain Center, [facility] [address] [place] [address] Sarah Richardson PA-C [address] [place] [address] 02/10/2024 1:00 PM EDT Office [address] [phone] Kahlil oMoney [address] [place] [address] 04/05/2024 1:20 PM EDT Office Visit Dermatology [address] [place] [address] Melanie Frank PA-C [address] [place] [address] [place] [address] 08/17/2024 1:40 PM EST Office Visit Family Medicine [address] [place] [phone] Jasson Denney MD [address] [place] [address] [place] [address] Scheduled Procedures Name Priority Associated Diagnoses Date/Ti [...] COPD 08/12/2024 08/12/2023 CKD HGB USE SMARTSET 85892 08/31/202408/31, 09/01/2023, 07/17/2023, Additional history exists CKD PHOS USE SMARTSET 25649 08/31/202408/14, 07/25/2022, 01/10/2022, Additional history exists DXA [...] this encounter Medical Devices Implanted Type Area Film And Video Editor Device Identifier Shelf Expiration Date Model / Serial / Lot [place] Excluder Aaa Endoprothesis System-07/07/2019 Implanted:07/07/19 20 (Quantity not on file) Graft Description:Multiple implant s from system on same day [id number] Cordis Bx Velocity Cardiac Stent-06/02/2002 Implanted:06/02/20 02 (Quantity not on file) Stent CORDIS [place]EXA BX VELOCITY [id number] / / [id number] Cordis Bx Velocity Cardiac Stent-01/03/2003 Implanted:01/04/20 03 (Quantity not on file) Stent CORDIS [place]EX[place] VELOCITY [id number] / / [id number] documented as of this encounter Advance Directives [...] the patient have Health Care Power of Multi Media Specialist? No Healthcare Agents on File Name Relationship Healthcare Agent Relationship Communication Gus Rosenbaum Jr. Adult Child Health Care R epresentative (appointed verbally by patient or by statute hierarchy) Care Teams Mechanical Shovel Operator Relationship Specialty Start Date End Date Jasson Denney MD [address] [place] [address] [place] [phone] PCP - General Family Medicine 03/22/16 documented as of this encounter
--- OUTSIDE RECORDS SUMMARY | 2023-12-22 05:50 | External Medical Summary | Summary of Care ---
Author Name Unknown Organization [facility] Address [address] [address] Phone [phone] Care Team Providers Care Climatology Professor Name Role Phone Jasson Denney MD Primary Care Provide r Reason for Referral * Precert (Within 10 days (routine)) - Authorized Specialty Diagnoses / Procedures Referred By Contac t Referred To Contact Radiology Diagnoses Lumbar radicular pain Spinal stenosis of lumbar region with neurogenic claudication Procedures MRI L SPINE WO CONTRAST Sarah Richardson PA-C [address] [place] [address] Referral ID Status Reason Start Date Expiration Date V isits Requested Visits Authorized [id number] Authorized 10/01/2023 999 999 Reason for Visit * Reason Comments Back Pain * Evaluate & Treat - Unlimited Visits (Within 10 days (routine)) - Authorized Specialty Diagnoses / Procedures Referred By Contac t Referred To Contact Pain Management / Pain Medicine Diagnoses DDD (degenerative disc disease), lumbar Jasson Denney MD [address] [place] [address] [place] [id number] Referral ID Status Reason Start Date Expiration Date Visits Requested Visits Authorized [id number] Authorized Specialty Services Required 08/12/2023 999 999 Encounter Details Date Type Department Care Team (Late st Contact Info) Description 09/24/2023 2:30 PM EDT Office Visit Interventional Pain Center, [facility] [address] [facility] [place] [address] Sarah Richardson PA-C [address] [place] [address] Lumbar radicular pain*; Spinal stenosis of lumbar region with neurogenic claudication Allergies Active Allergy Reactions Criticality Noted Date Comments Adhesive Tape 04/11/2006 Latex 06/06/2022 Other reaction(s): rash/itchy documented as of this encounter (statuses as of 09/25/2023) Medications Medication Sig Dispensed Refills Start Date [...] every night at bedtime. 0 07/12/2019 Active Phenylephrine-M[place]on Butter 0.25-88.44 % Rectal Suppository Administer into the rectum as needed for Hemorrhoids. 0 Active Nitroglycerin 0.4 MG Sublingual Tablet Sublingual (Nitrostat) Place 1 Tablet under the tongue as needed. 0 11/10/2020 Active Isosorbide Mononitrate ER 30 MG Oral Tablet Extended Release 24 Hour (Imdur)Indications: Coronary artery disease involving elem coronary artery of elem heart without angina pectoris TAKE 1 TABLET [...] as of this encounter (statuses as of 09/25/2023) Active Problems Problem Noted Date Diagnosed Date Iron deficiency anemia 08/12/2023 Encounter for antineoplastic chemotherapy 2022 Malignant neoplasm of left b reast in female, estrogen receptor positive 06/28/2022 Postherpetic neuralgia 06/28/2022 Hiatal hernia 08/07/2021 Schatzki's ring 08/07/2021 S/P angioplasty with stent 11/15/2020 Coronary artery disease invo lving elem heart without angina pectoris 11/15/2020 Cardiac murmur [...] as of this encounter (statuses as of 09/25/2023) Resolved Problems Problem Noted Date Diagnosed Date [...] as of this encounter (statuses as of 09/25/2023) Immunizations Name Administration Dates Next Due COVID-19 mRNA, LNP-s, No Pre serve, 2-Dose Series (Punchh) 08/11/2020,07/21/2020 COVID-19, LNP-s, No Preserve , Dusty-sucrose, Ages 12+ (Pfizer) 02/05/2022,08/07/2021 COVID-19, MRNA-LNP, 23-24, P F, 30 MCG/0.3 mL, 12 YRS AND ABOVE, IM ([facility]) 05/13/2023 Covid-19, Mrna, Lnp-s, Pf, B ivalent, 30 Mcg, IM, 12 yrs and above (Punchh) 06/11/2022 Pneumococcal Conjugate Vacc, 13 Valent (Prevnar) [...] as of this encounter Progress Notes * Sarah Richardson PA-C - 09/24/2023 2:22 PM EDT GENERAL HISTORY & PHYSICAL EXAMINATION - Anesthesia and Pain Service Name: Afua Rosenbaum Location: [facility], [facility] REFERRING PHYSICIAN: Jasson Denney MD Thank you for referring Afua Rosenbaum. CHIEF COMPLAINT: Low back and LE pain HPI: Afua Rosenbaum is a 83 year old female who complains of low back pain that radiates to B LE,anterior thigh and calf to foot, R = L. Low back pain started number of years ago without distinct injury but does remember a few mechanical falls. Progressively worse in the past year, no affecting her ability to ambulate. Evaluated by PCP 08/12, recommending consideration of injection. Reviewed L spine xray 02/18/23 - levoscoliosis, listhesis L4/5, diffuse facet arthropathy, severe DDD lower lumbar region with osteophytes, no acute compression change. Minimal relief with conservative care including physical therapy (in home therapy, twice weekly for two weeks then one weekly for three weeks,)daily home stretching based on PT, medication management. Symptoms occur daily. Describes pain as aching, burning. Pain is constant, rated 6/10. Aggravating factors include: walking, standing, transitional movement. Unable to provide alleviating factors. Admits associated LE weakness, using cane to ambulate - notes balance changes but also has pain in hips and knees. +++ shopping cart sign. Denies LE paresthesia. Denies groin pain bilaterally. Denies bowel or bladder incontinence. Denies hx spine surgery or injections. Significant past medical hx includes: breast CA, COPD, HTN, depression, CKD, CAD with angioplasty. Current medications used for pain: cymbalta, tylenol Past medications used for pain: flexeril, gabapentin, topical lidocaine, lidocaine patch. Anticoagulation therapy: plavix Diabetic: no Presents with son. 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 Depressive disorder, not elsewhere classified Dyslipidemia, goal to be determined HTN, goal below 140/90 Impaired glucose tolerance Other constipation Solitary cyst of breast Breast Cyst Past Medical History - Pertinent Findings: (-) clotting disorder PAST SURGICAL HISTORY: Past Surgical History: Procedure Laterality Date BX LYMPH NODE DEEP AXIL Left 08/14/2022 BIOPSY LYMPH NODE DEEP AXILLARY OPEN performed by Yasmine Austin MD at OR [facility] COLONOSCOPY 07/17/2008 patient states she had a polyp removed and internal hemorrhoids COLONOSCOPY, DIAGNOSTIC (RECTUM) 07/11/2015 hyperplastic polyp, diverticulosis/[facility] EGD, FLEXIBLE, DIAGNOSTIC 07/11/2015 reflux esophagitis, Schatzki ring, HH/[facility] IDENTIFY SENTINEL NODE, RADIOACTIVE TRACER Left 08/14/2022 INJECTION PROCEDURE FOR IDENTIFICATION SENTINEL NODE performed by Yasmine Austin MD at OR [facility] INSERTION OF LENS PROSTHESIS 05/03/2015 right INSERTION OF LENS PROSTHESIS 04/19/2015 left MASTECTOMY, SIMPLE, COMPLETE Left 08/14/2022 MASTECTOMY SIMPLE COMPLETE performed by Yasmine Austin MD at [facility] MISCELLANEOUS ORDER (HS ONLY) May 2002 and December 2002 heart stents TOTAL ABD HYSTERECTOMY W/WO REMOVAL OF TUBE(S) US GUIDED BREAST BIOPSY BILATERAL around 2010 benign US GUIDED BREAST BIOPSY LEFT Left 06/20/2022 Invasive ductal carcinoma, grade 3 with necrosis VENOUS PTCA-TECH ONLY FAMILY HISTORY: Family History Problem Relation Age of Onset Other (Cancer liver) Grandfather (Maternal) Breast Cancer Niece Cancer Niece Family History - Pertinent Findings: (-) clotting disorder SOCIAL HISTORY: Social History Tobacco Use Smoking status: Former Current packs/day: 0.50 Average packs/day: 0.5 packs/day for 40.0 years (20.0 ttl pk-yrs) Types: Cigarettes Smokeless tobacco: Never Vaping Use Vaping Use: Never used Substance Use Topics Alcohol use: Yes Comment: a glass or wine on holidays Drug use: No CURRENT MEDICATIONS: Note that discontinued and completed medications (per the MAR) continue to display for 24 hours. Ordered medications to be given in the future also display. Current Outpatient Medications Medication Sig Dispense Refill [...] Capsule by mouth every night at bedtime. Phenylephrine-Mendon Butter 0.25-88.44 % Rectal Suppository Administer into the rectum as needed forHemorrhoids. Nitroglycerin 0.4 MG Sublingual Tablet Sublingual (Nitrostat) Place 1 Tablet under the tongue as needed. Isosorbide Mononitrate ER 30 MG Oral Tablet Extended Release 24 Hour (Imdur) TAKE 1 TABLET BY MOUTHEVERY DAY IN THE MORNING 90 Tablet 1 Atenolol 25 MG Oral Tablet (Tenormin) TAKE 1 TABLET BY MOUTH DAILY IN THE MORNING 90 Tablet 1 Rosuvastatin [...] BY MOUTH EVERY DAY 90 Capsule 1 Ezetimibe 10 MG Oral Tablet (Zetia) TAKE 1 TABLET BY MOUTH DAILY 90 Tablet 3 Clopidogrel Bisulfate 75 MG Oral Tablet (pLAVix) TAKE 1 TABLET BY MOUTH DAILY 90 Tablet 3 No current facility-administered medications for this visit. ALLERGIES: Adhesive tape and Latex ROS: Constitutional: Negative for fatigue, fever, appetite change, unexplained weight loss. ENT: Negative for hearing loss, sore throat. Respiratory: Negative for cough, shortness of breath, dyspnea. Musculoskeletal: Negative for neck, mid-back pain. + low back and LE pain - see HPI Neurological: Negative for headaches, seizures. Genitourinary: Negative for dysuria, urinary frequency, hematuria. Hematologic/ Lymphatic: Negative for easy bleeding, bruising, lymphadenopathy. Gastrointestinal: Negative for abdominal pain, nausea, vomiting, constipation, diarrhea. Cardiovascular: Negative for chest pain, palpitations, ankle swelling, orthopnea. PHYSICAL EXAMINATION: Most Recent Vital Signs: There were no vitals filed for this visit. General Appearance: Patient appears to be about stated age, pleasant and cooperative with normal affect. HEENT: head normocephalic, pupils equal round and reactive to light and accommodation, EOMI, hearing intact and equal bilaterally, and nose clear, throat normal Chest: No gross abnormality. Nonlabored breathing. Lumbar Spine: Normal lumbar lordatic curvature is present. Skin is intact without gross abnormalities. No masses palpable. Midline and B paravertebral musculature nontender. B sacroiliac joint nontender. No evidence of myofascial trigger points. Limited active ROM with flexion and extension of the lumbar spine. Lower Extremity Strength: Hip Flexion 5/5 bilaterally. Hip Abductor 5/5 bilaterally. Hip Adductor 5/5 bilaterally. Extensor Hallicus Longus 5/5 bilaterally. Deep Tendon Reflex: Patellar: 2/4 bilaterally. Achilles: 1/4 bilaterally. Low Back Provocative Testing: LAUREN test: negative bilaterally. Straight Leg Raise Test: positive bilaterally. Lumbar Facet Loading: positive bilaterally. Sensation: Dermatomal sensation not formally tested. Grossly normal and symmetric unless otherwise specified. Gait: Intact, antalgic. Ambulates with assistance. IMAGING: XR L SPINE AP AND LATERAL 02/18/2023 3:18 pm Dextroconvex curvature of the lower thoracic spine [...] at the aortoiliac regions. Vascular calcifications. IMPRESSION Scoliotic curvature of the thoracolumbar spine with multilevel listhesis and severe degenerative changes. Recommend MRI if no contraindication for substantially improved assessment. ASSESSMENT: Chronic low back pain with radiculopathy ?spinal stenosis with neurogenic claudication PLAN: Chronic low back pain with progressive B LE pain and weakness. Describes significant neurogenic claudication. Mild relief with conservative care. Neurologically intact. Reviewed L spine xray 02/18/23 - levoscoliosis, listhesis L4/5, diffuse facet arthropathy, severe DDD lower lumbar region with osteo phytes. Discussed L spine MRI for further evaluation, suspect spinal stenosis. Consider GARRISON - will require seven day plavix holds - reviewed need to stop plavix prior to injection therapy to decreaserisk of bleeding or epidural hematoma. Reviewed increased risk of stroke or cardiac event while plavix is stopped. Patient stated understanding. Will contact cardiology in regards to D/C. Could consider further titration cymbalta, will leave to prescribing providers discretion. Follow up to review L spine MRI, discuss GARRISON (pending cardiology approval.) Sarah Richardson PA-C 09/24/2023 documented in this encounter Nursing Notes * Leni Boswell LPN - 09/24/2023 2:26 PM EDT Patient here for low back and b/l lower ext pain that's been worse the last few months-constant Not using flexeril as she doesn't have spasms Xray in chart from 2022, no MRI PT [id number] No hx of inj's/spine surgery Tylenol helps documented in this encounter Plan of Treatment Upcoming Encounters Date Type Department Care Team (Latest Contact Info) Description 09/30/2023 10:00 AM EDT Laboratory Laboratory [address] [place] [phone] [facility] Lab [address] [place] [address] 10/13/2023 2:20 PM EDT Office Visit Nephrology [address] [place] [address] Maritza Parrish MD [address] [place] [address] 10/16/2023 11:00 AM EDT Imaging Radiology [address] [place] [address] 10/16/2023 3:30 PM EDT Office Visit Hematology/Oncolog y [facility] [address] [place] [phone] Abena Xiong CRNP [address] [place] [address] 11/25/2023 2:15 PM EDT Hospital Encounter ENDO [facility], Endoscopy Room [facility] [address] [place] [phone] Nitin Austin, DO [address] [place] [address] 11/25/2023 2:15 PM EDT - 11/25/2023 3:00 PM EDT Surgery ENDO [facility], Endoscopy Room [facility] [address] [place] [phone] Nitin Austin, DO [address] [place] [address] COLONOSCOPY FLEXIBLE PROXIMAL DIAGNOSTIC 11/26/2023 2:00 PM EDT Telemedicine Interventional Pain Center, [facility] [address] [place] [address] Sarah Richardson PA-C [address] [place] [address] 02/10/2024 1:00 PM EDT Office Visit Family Medicine [address] [place] [phone] Kahlil Mooney CRNP [address] [place] [address] [place] [address] 04/05/2024 1:20 PM EDT Office Visit Dermatology [address] [place] [address] Melanie Frank PA-C [address] [place] [address] [place] [address] 08/17/2024 1:40 PM EST Office Visit Family Medicine [address] [place] [phone] Jasson Denney MD [address] [place] [address] [place] [address] Scheduled Orders Name Type Priority Associated Diagnoses Orde r Schedule MRI L SPINE WO CONTRAST Medical Imaging Routine Lumbar radicular pain Spinal stenosis of lumbar region with neurogenic claudication Expected: 10/01/2023, Expires: 10/23/2024 Scheduled Procedures Name Priority Associated Diagnoses Date/Ti [...] COPD 08/12/2024 08/12/2023 CKD HGB USE SMARTSET 16120 08/31/202408/31, 09/01/2023, 07/17/2023, Additional history exists CKD PHOS USE SMARTSET 36197 08/31/202408/14, 07/25/2022, 01/10/2022, Additional history exists DXA [...] this encounter Medical Devices Implanted Type Area Wood Casket Maker Device Identifier Shelf Expiration Date Model / Serial / Lot [place] Excluder Aaa Endoprothesis System-07/07/2019 Implanted:07/07/19 20 (Quantity not on file) Graft Description:Multiple implant s from system on same day [id number] Cordis Bx Velocity Cardiac Stent-06/02/2002 Implanted:06/02/20 02 (Quantity not on file) Stent CORDIS LEXA BX VELOCITY [id number] / / [id number] Cordis Bx Velocity Cardiac Stent-01/03/2003 Implanted:01/04/20 03 (Quantity not on file) Stent CORDIS LEXA VELOCITY [id number] / / [id number] documented as of this encounter Visit Diagnoses Diagnosis Lumbar radicular pain- Primary Thoracic or lumbosacral neuritis or radiculitis, unspecified Spinal stenosis of lumbar region with neurogenic claudication Spinal stenosis, lumbar region, with neurogenic claudication Iron deficiency anemia Iron deficiency anemia, unspecified documented in this encounter Advance Directives Latest Code Status on File Code Status Date Activated Date Inactivated Comments Full Code 08/14/2022 7:04 AM 08/14/2022 5:34 PM This o rder reflects the patients wishes and were consensually agreed upon. Question Answer Comments Discussion of Advance Directives occurred with: Patient Does the patient have a Living Will? No Does the patient have Health Care Power of Fourdrinier Machine Operator? No Healthcare Agents on File Name Relationship Healthcare Agent Relationship Communication Gus Rosenbaum Jr. Adult Child Health Care R epresentative (appointed verbally by patient or by statute hierarchy) Care Teams Climatology Professor Relationship Specialty Start Date End Date Jasson Denney MD [address] [place] [address] [place] [address] PCP - General Family Medicine 03/22/16 documented as of this encounter
--- OUTSIDE RECORDS SUMMARY | 2023-12-22 05:50 | External Medical Summary | Summary of Care ---
Author Name Unknown Organization [facility] Address [address] [place] [address] Phone [phone] Care Team Providers Care Pattern Chain Builder Name Role Phone Jasson Denney MD Primary Care Provide r Reason for Visit * Reason Onset Date Comments Follow Up 09/09/2023 Encounter Details Date Type Department Care Team (Late st Contact Info) Description 09/09/2023 Telephone Hematology/Oncology [facility] [place] [address] [facility] [phone] Abena Xiong CRNP 400 [place] [address] Follow Up Allergies Active Allergy Reactions Criticality Noted Date Comments Adhesive Tape 04/11/2006 Latex 06/06/2022 Other reaction(s): rash/itchy documented as of this encounter (statuses as of 09/11/2023) Medications Medication Sig Dispensed Refills Start Date [...] every night at bedtime. 0 07/12/2019 Active Phenylephrine-[place] Butter 0.25-88.44 % Rectal Suppository Administer into the rectum as needed for Hemorrhoids. 0 Active Nitroglycerin 0.4 MG Sublingual Tablet Sublingual (Nitrostat) Place 1 Tablet under the tongue as needed. 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 TAKE 1 TABLET [...] as of this encounter (statuses as of 09/11/2023) Active Problems Problem Noted Date Diagnosed Date Iron deficiency anemia 08/12/2023 Encounter for antineoplastic chemotherapy 2022 Malignant neoplasm of left b reast in female, estrogen receptor positive 06/28/2022 Postherpetic neuralgia 06/28/2022 Hiatal hernia 08/07/2021 Schatzki's ring 08/07/2021 S/P angioplasty with stent 11/15/2020 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 11/15/2020 Cardiac murmur [...] as of this encounter (statuses as of 09/11/2023) Resolved Problems Problem Noted Date Diagnosed Date [...] as of this encounter (statuses as of 09/11/2023) Immunizations Name Administration Dates Next Due COVID-19 mRNA, LNP-s, No Pre serve, 2-Dose Series (Tune) 08/11/2020,07/21/2020 COVID-19, LNP-s, No Preserve , Dusty-sucrose, Ages 12+ (Tune) 02/05/2022,08/07/2021 COVID-19, MRNA-LNP, 23-24, P F, 30 MCG/0.3 mL, 12 YRS AND ABOVE, IM ([employer]) 05/13/2023 Covid-19, Mrna, Lnp-s, Pf, B ivalent, 30 Mcg, IM, 12 yrs and above (Tune) 06/11/2022 Pneumococcal Conjugate Vacc, 13 Valent (Prevnar) [...] please add lab appt on 09/29 @ [facility] "Ferritin, Iron, CBCD" Dr. Parrish- Patient [...] PM EDT Office Visit Interventional Pain Center, [facility] [address] [place] [address] Sarah Richardson PA-C [address] [place] [address] 09/30/2023 10:00 AM EDT Laboratory Laboratory [address] [place] [phone] [address] [place] [address] 10/13/2023 2:20 PM EDT Office Visit Nephrology [address] [place] [address] Maritza Parrish MD [address] [facility] [place] [address] 10/16/2023 3:30 PM EDT Office Visit Hematology/Oncolog y [facility] [place] [address] [facility] [place] [phone] Abena Xiong CRNP [address] [place] [address] 11/25/2023 2:15 PM EDT Hospital Encounter ENDO [facility], Endoscopy Room [facility] [address] [place], [place] [phone] Nitin Austin, DO [address] [place], [place] [address] 11/25/2023 2:15 PM EDT - 11/25/2023 3:00 PM EDT Surgery ENDO [facility], Endoscopy Room [facility] [address] [place], [place] [phone] Nitin Austin, DO [address] [place], [place] [address] COLONOSCOPY FLEXIBLE PROXIMAL DIAGNOSTIC 02/10/2024 1:00 PM EDT [address] [phone] Kahlil Mooney CRNP [address] [place] [address] [place] [address] 04/05/2024 1:20 PM EDT Office Visit Dermatology [address] [place] [address] Melanie Frank PA-C [address] [place] [address] [place] [address] 08/17/2024 1:40 PM EST Office Visit [address] [place] [phone] Jasson Denney MD [address] [place] [address] [place] [address] Scheduled Procedures Name Priority Associated Diagnoses Date/Ti [...] COPD 08/12/2024 08/12/2023 CKD HGB USE SMARTSET 95993 08/31/202408/31, 09/01/2023, 07/17/2023, Additional history exists CKD PHOS USE SMARTSET 69571 08/31/202408/14, 07/25/2022, 01/10/2022, Additional history exists DXA [...] this encounter Medical Devices Implanted Type Area [facility] Worker Device Identifier Shelf Expiration Date Model / Serial / Lot [place] Excluder Aaa Endoprothesis System-07/07/2019 Implanted:07/07/19 20 (Quantity not on file) Graft Description:Multiple implant s from system on same day [id number] Cordis Bx Velocity Cardiac Stent-06/02/2002 Implanted:06/02/20 02 (Quantity not on file) Stent CORDIS LEXA BX VELOCITY [id number] / / [id number] Cordis Bx Velocity Cardiac Stent-01/03/2003 Implanted:01/04/20 03 (Quantity not on file) Stent CORDIS LEXA VELOCITY [id number] / / [id number] documented as of this encounter Advance Directives [...] the patient have Health Care Power of Automotive Fuel Systems Converter? No Healthcare Agents on File Name Relationship Healthcare Agent Relationship Communication Gus Rosenbaum Jr. Adult Child Health Care R epresentative (appointed verbally by patient or by statute hierarchy) Care Teams Pattern Chain Builder Relationship Specialty Start Date End Date Jasson Denney MD [address] [place] [address] [place] [address] PCP - General Family Medicine 03/22/16 documented as of this encounter
--- OUTSIDE RECORDS SUMMARY | 2023-12-22 05:50 | External Medical Summary | Summary of Care ---
Author Name Unknown Organization [facility] Address [address] [place] [place] [address] Phone [phone] Care Team Providers Care General Forecaster Name Role Phone Jasson Denney MD Primary Care Provide r Reason for Visit * Reason Onset Date Comments Follow Up 09/09/2023 Encounter Details Date Type Department Care Team (Late st Contact Info) Description 09/09/2023 Telephone Hematology/Oncology [facility] [place] [address] [facility] [phone] Abena Xiong CRNP [address] [place] [address] Follow Up Allergies Active Allergy Reactions [...] every night at bedtime. 0 07/12/2019 Active Phenylephrine-[place] Butter 0.25-88.44 % Rectal Suppository Administer into the rectum as needed for Hemorrhoids. 0 Active Nitroglycerin 0.4 MG Sublingual Tablet Sublingual (Nitrostat) Place 1 Tablet under the tongue as needed. 0 11/10/2020 Active Isosorbide Mononitrate ER 30 MG Oral Tablet Extended Release 24 Hour (Imdur)Indications: Coronary artery disease involving [place] coronary artery of [place] heart without angina pectoris TAKE 1 TABLET [...] stent 11/15/2020 Coronary artery disease invo lving [place] heart without angina pectoris 11/15/2020 Cardiac murmur [...] mRNA, LNP-s, No Pre serve, 2-Dose Series (Dot VN) 08/11/2020,07/21/2020 COVID-19, LNP-s, No Preserve , Dusty-sucrose, Ages 12+ (Dot VN) 02/05/2022,08/07/2021 COVID-19, MRNA-LNP, 23-24, P F, 30 MCG/0.3 mL, 12 YRS AND ABOVE, IM (Stockpulse-Comirnat) 05/13/2023 Covid-19, Mrna, Lnp-s, Pf, B ivalent, 30 Mcg, IM, 12 yrs and above (Dot VN) 06/11/2022 Pneumococcal Conjugate Vacc, 13 Valent (Prevnar) [...] please add lab appt on 09/29 @ [facility] "Ferritin, Iron, CBCD" Dr. Parrish- Patient has [...] PM EDT Office Visit Interventional Pain Center, [facility] [address] [place] [address] Sarah Richardson PA-C [address] [place] [address] 09/30/2023 10:00 AM EDT Laboratory Laboratory [address] [place] [phone] [address] [place] [address] 10/13/2023 2:20 PM EDT Office Visit Nephrology [address] [place] [address] Maritza Parrish MD [address] [place] [address] 10/16/2023 3:30 PM EDT [facility] [employer] [address] [place], [place] [phone] Abena Xiong CRNP [address] [place] [address] 11/25/2023 2:15 PM EDT Hospital Encounter ENDO OSSC, Endoscopy Room [facility] [address] [place] [phone] Nitin Austin, DO [address] [place] [address] 11/25/2023 2:15 PM EDT - 11/25/2023 3:00 PM EDT Surgery ENDO [facility], Endoscopy Room [facility] [address] [place] [phone] Nitin Austin, DO [address] [place] [address] COLONOSCOPY FLEXIBLE PROXIMAL DIAGNOSTIC 02/10/2024 1:00 PM EDT Office Visit Family Medicine [address] [place] [phone] Kahlil Mooney CRNP [address] [place] [address] [place] [address] 04/05/2024 1:20 PM EDT Office Visit Dermatology [address] [place] [address] Melanie Frank PA-C [address] [place] [address] [place] [address] 08/17/2024 1:40 PM EST Office Visit Family Medicine [address] [place] [phone] Jasson Denney MD [address] [place] [address] [place] [address] Scheduled Orders Name Type Priority Associated Diagnoses [...] COPD 08/12/2024 08/12/2023 CKD HGB USE SMARTSET 40375 08/31/202408/31, 09/01/2023, 07/17/2023, Additional history exists CKD PHOS USE SMARTSET 36860 08/31/202408/14, 07/25/2022, 01/10/2022, Additional history exists DXA [...] this encounter Medical Devices Implanted Type Area Road Sign Installer Device Identifier Shelf Expiration Date Model / Serial / Lot Melba Excluder Aaa Endoprothesis System-07/07/2019 Implanted:07/07/19 20 (Quantity not on file) Graft Description:Multiple implant s from system on same day [id number] Cordis Bx Velocity Cardiac Stent-06/02/2002 Implanted:06/02/20 02 (Quantity not on file) Stent CORDIS LEXA BX VELOCITY [id number] / / [id number] Cordis Bx Velocity Cardiac Stent-01/03/2003 Implanted:01/04/20 03 (Quantity not on file) Stent CORDIS LEXA VELOCITY [id number] / / [id number] documented as of this encounter Visit Diagnoses [...] the patient have Health Care Power of Science Editor? No Healthcare Agents on File Name Relationship Healthcare Agent Relationship Communication Gus Rosenbaum Jr. Adult Child Health Care R epresentative (appointed verbally by patient or by statute hierarchy) Care Teams General Forecaster Relationship Specialty Start Date End Date Jasson Denney MD [address] [place] [address] [place] [address] PCP - General Family Medicine 03/22/16 documented as of this encounter
--- OUTSIDE RECORDS SUMMARY | 2023-12-22 05:51 | External Medical Summary | Summary of Care ---
Author Name Unknown Organization [facility] Address [address] [facility] [place] [address] Phone [phone] Care Team Providers Care Logistics Project Manager Name Role Phone Jasson Denney MD Primary Care Provide r Reason for Visit * Reason Comments Outpatient Testing Encounter Details Date Type Department Care Team (Late st Contact Info) Description 09/01/2023 9:20 AM EDT Laboratory Laboratory [address] [place] [phone] [facility] [address] [place] [address] Iron deficiency anemia, unspecified iron deficiency anemia type Allergies Active Allergy Reactions Criticality Noted Date Comments Adhesive Tape 04/11/2006 Latex 06/06/2022 Other reaction(s): rash/itchy documented as of this encounter (statuses as of 09/01/2023) Medications Medication Sig Dispensed Refills Start Date [...] every night at bedtime. 0 07/12/2019 Active Phenylephrine-[place] Butter 0.25-88.44 % Rectal Suppository Administer into [...] EVERY DAY 90 Capsule 1 01/31/2023 Active Clopidogrel Bisulfate 75 MG Oral Tablet (pLAVix)Indications :HTN, goal below 140/90 TAKE 1 TABLET BY MOUTH DAILY 90 Tablet 1 04/02/2023 Active Isosorbide Mononitrate ER 30 MG Oral Tablet Extended Release 24 Hour (Imdur)Indications: Coronary artery disease involving [place] coronary artery of [place] heart without angina pectoris TAKE 1 TABLET [...] 06/19/2023 Active Ezetimibe 10 MG Oral Tablet (Zetia)Indications: Dyslipidemia, goal to be determined TAKE 1 TABLET BY MOUTH DAILY 90 Tablet 0 06/17/2023 Active Iron-Vitamin C 65-125 MG Oral Tablet (Vitron C)Indications:Iron deficiency anemia, unspecified iron deficiency anemia type Take 1 Tablet by mouth in the morning. 90 Tablet 1 07/21/2023 Active documented as of this encounter (statuses as of 09/01/2023) Active Problems Problem Noted Date Diagnosed Date Iron deficiency anemia 08/12/2023 Encounter for antineoplastic chemotherapy 2022 Malignant neoplasm of left b reast in female, estrogen receptor positive 06/28/2022 Postherpetic neuralgia 06/28/2022 Hiatal hernia 08/07/2021 Schatzki's ring 08/07/2021 S/P angioplasty with stent 11/15/2020 Coronary artery disease invo lving [place] heart without angina pectoris 11/15/2020 Cardiac murmur [...] as of this encounter (statuses as of 09/01/2023) Resolved Problems Problem Noted Date Diagnosed Date [...] as of this encounter (statuses as of 09/01/2023) Immunizations Name Administration Dates Next Due COVID-19 mRNA, LNP-s, No Pre serve, 2-Dose Series ([employer]) 08/11/2020,07/21/2020 COVID-19, LNP-s, No Preserve , Dusty-sucrose, Ages 12+ ([employer]) 02/05/2022,08/07/2021 COVID-19, MRNA-LNP, 23-24, P F, 30 MCG/0.3 mL, 12 YRS AND ABOVE, IM ([employer]-Comirnat) 05/13/2023 Covid-19, Mrna, Lnp-s, Pf, B ivalent, 30 Mcg, IM, 12 yrs and above ([employer]) 06/11/2022 Pneumococcal Conjugate Vacc, 13 Valent (Prevnar) [...] PM EDT Office Visit Interventional Pain Center, [facility] [address] [place] [address] Sarah Richardson PA-C [address] [place] [address] 10/13/2023 2:00 PM EDT Laboratory Laboratory [address] [place] [phone] [address] [place] [address] 10/13/2023 2:20 PM EDT Office Visit Nephrology [address] [place] [address] Maritza Parrish MD [address] [place] [address] 10/16/2023 3:30 PM EDT [facility] [employer] [address] [place] [phone] Abena Xiong CRNP [address] [place] [address] 11/25/2023 2:30 PM EDT Hospital Encounter ENDO OSSC, Endoscopy Room [facility] [address] [place] [phone] Nitin Austin, DO [address] [place] [address] 11/25/2023 2:30 PM EDT - 11/25/2023 3:00 PM EDT Surgery ENDO OSS[facility], Endoscopy Room [facility] [address] [place] [phone] Nitin Austin, DO [address] [place] [address] COLONOSCOPY FLEXIBLE PROXIMAL DIAGNOSTIC 02/10/2024 1:00 PM EDT Office Visit Family Medicine [address] [place] [phone] Kahlil Mooney CRNP [address] [place] [address] [place] [address] 04/05/2024 1:20 PM EDT Office Visit Dermatology [address] [place] [address] Melanie Frank PA-C [address] [place] [address] [place] [address] 08/17/2024 1:40 PM EST Office Visit Family Medicine [address] [place] [phone] Jasson Denney MD [address] [place] [address] [place] [address] Pending Results Name Type Priority Associated Diagnoses Date /Time CBC WITH WBC DIFFERENTIAL Lab STAT Iron deficiency anemia, unspecified iron deficiency anemia type 09/01/2023 9:17 AM EDT IRON SCREEN, INCLUDING TIBC Lab STAT Iron deficiency anemia, unspecified iron deficiency anemia type 09/01/2023 9:17 AM EDT FERRITIN Lab STAT Iron deficiency anemia, unspecified iron deficiency anemia type 09/01/2023 9:17 AM EDT CBC Lab STAT Iron deficiency anemia, unspecified iron deficiency anemia type 09/01/2023 9:17 AM EDT DIFFERENTIAL, AUTOMATED Lab STAT Iron deficiency anemia, unspecified iron deficiency anemia type 09/01/2023 9:17 AM EDT Scheduled Orders Name Type Priority Associated Diagnoses Orde r Schedule CBC Lab STAT Iron deficiency anemia, unspecified iron deficiency anemia type Ordered: 09/01/2023 DIFFERENTIAL, AUTOMATED Lab STAT Iron deficiency anemia, unspecified iron deficiency anemia type Ordered: 09/01/2023 Scheduled Procedures Name Priority Associated Diagnoses Date/Ti me COLONOSCOPY FLEXIBLE PROXIMAL DIAGNOSTIC Iron deficiency anemia 11/25/2023 2:30 PM EDT Health Maintenance Due Date Last Done Comments Alpha-1 Antitrypsin 1958 DTaP,Tdap,and Td Vaccines (1 - Tdap) 1959 Zoster Vaccines (1 of 2) 1990 *COPD SEVERITY VERIFIED BY PFT 01/02/2018 Depression Screening 08/07/2022 08/07/2021 CKD PHOS USE SMARTSET 89949 07/25/2023/02/2023, 01/10/2022, 01/11/2021, Additional history exists GFR 01/15/2024 07/17/2023, 06/16, 03/20/2023, Additional history exists HbA1c 03/20/2024 03/20/2023, 10/2021, 11/01/2020, Additional history exists Albumin/Creatinine Ratio 06/30/2024 024, 07/25/2022, 08/07/2021, Additional history exists CKD HGB USE SMARTSET 32781 07/17/202407/17, 07/17/2023, 06/30/2023, Additional history exists O2 ASSESSMENT COMPLETED IN PAST YEAR FOR COPD 08/12/2024 08/12/2023 DXA Scan 05/31/2026 05/31/2019, 12/09/2006 Pneumococcal Vaccine: [...] this encounter Medical Devices Implanted Type Area Surgical Consultant Device Identifier Shelf Expiration Date Model / Serial / Lot [place] Excluder Aaa Endoprothesis System-07/07/2019 Implanted:07/07/19 20 (Quantity not on file) Graft Description:Multiple implant s from system on same day [id number] Cordis Bx Velocity Cardiac Stent-06/02/2002 Implanted:06/02/20 02 (Quantity not on file) Stent CORDIS LEXA BX VELOCITY [id number] / / [id number] Cordis Bx Velocity Cardiac Stent-01/03/2003 Implanted:01/04/20 03 (Quantity not on file) Stent CORDIS LEXA VELOCITY [id number] / / [id number] documented as of this encounter Visit Diagnoses Diagnosis Iron deficiency anemia, unspecified iron deficiency anemia type Iron deficiency anemia Iron deficiency anemia, unspecified [...] patient have Health Care Power of Leather Production Artisan? No Healthcare Agents on File Name Relationship Healthcare Agent Relationship Communication Gus Rosenbaum Jr. Adult Child Health Care R epresentative (appointed verbally by patient or by statute hierarchy) Care Teams Logistics Project Manager Relationship Specialty Start Date End Date Jasson Denney MD [address] [place] [address] [place] [address] PCP - General Family Medicine 03/22/16 documented as of this encounter
--- OUTSIDE RECORDS SUMMARY | 2023-12-22 05:51 | External Medical Summary | Summary of Care ---
Author Name Unknown Organization [facility] Address [address] [facility] [place] [address] Phone [phone] Care Team Providers Care Medical Research Assistant Name Role Phone Jasson Denney MD Primary Care Provide r Reason for Visit * Reason Comments Outpatient Testing Encounter Details Date Type Department Care Team (Late st Contact Info) Description 09/01/2023 9:20 AM EDT Laboratory Laboratory [address] [place] [phone] [facility] [address] [place] [address] Iron deficiency anemia, unspecified iron deficiency anemia [...] every night at bedtime. 0 07/12/2019 Active Phenylephrine-[place] Butter 0.25-88.44 % Rectal Suppository Administer into [...] 24 Hour (Imdur)Indications: Coronary artery disease involving [place] coronary artery of [place] heart without angina pectoris TAKE 1 TABLET [...] stent 11/15/2020 Coronary artery disease invo lving [place] heart without angina pectoris 11/15/2020 Cardiac murmur [...] mRNA, LNP-s, No Pre serve, 2-Dose Series ([employer]) 08/11/2020,07/21/2020 COVID-19, LNP-s, No Preserve , Dusty-sucrose, Ages 12+ ([employer]) 02/05/2022,08/07/2021 COVID-19, MRNA-LNP, 23-24, P F, 30 MCG/0.3 mL, 12 YRS AND ABOVE, IM (Proxio-Comirnat) 05/13/2023 Covid-19, Mrna, Lnp-s, Pf, B ivalent, 30 Mcg, IM, 12 yrs and above ([employer]) 06/11/2022 Pneumococcal Conjugate Vacc, 13 Valent (Prevnar) [...] PM EDT Office Visit Interventional Pain Center, [facility] [address] [place] [address] Sarah Richardson PA-C [address] [place] [address] 10/13/2023 2:00 PM EDT Laboratory Laboratory [address] [place] [phone] [address] [place] [address] 10/13/2023 2:20 PM EDT Office Visit Nephrology [address] [place] [address] Maritza Parrish MD [address] [place] [address] 10/16/2023 3:30 PM EDT [facility] [employer] [address] [place] [phone] Abena Xiong CRNP [address] [place] [address] 11/25/2023 2:30 PM EDT Hospital Encounter ENDO OSSC, Endoscopy Room [facility] [address] [place] [phone] Nitin Austin, DO [address] [place] [address] 11/25/2023 2:30 PM EDT - 11/25/2023 3:00 PM EDT Surgery ENDO OSSC, Endoscopy Room [facility] [address] [place] [phone] Nitin Austin, DO [address] [place] [address] COLONOSCOPY FLEXIBLE PROXIMAL DIAGNOSTIC 02/10/2024 1:00 PM EDT Office Visit Family Medicine [address] [place] [phone] Kahlil Mooney CRNP [address] [place] [address] [place] [address] 04/05/2024 1:20 PM EDT Office Visit Dermatology [address] [place] [address] Melanie Frank PA-C [address] [place] [address] [place] [address] 08/17/2024 1:40 PM EST Office Visit Family Medicine [address] [place] [phone] Jasson Denney MD [address] [place] [address] [place] [address] Pending Results Name Type Priority Associated Diagnoses [...] Screening 08/07/2022 08/07/2021 CKD PHOS USE SMARTSET 85406 07/25/2023/02/2023, 01/10/2022, 01/11/2021, Additional history exists GFR 01/15/2024 07/17/2023, 06/16, 03/20/2023, Additional history exists HbA1c 03/20/2024 03/20/2023, 10/2021, 11/01/2020, Additional history exists Albumin/Creatinine Ratio 06/30/2024 024, 07/25/2022, 08/07/2021, Additional history exists CKD HGB USE SMARTSET 42891 07/17/202407/17, 07/17/2023, 06/30/2023, Additional history exists O2 [...] encounter Medical Devices Implanted Type Area Sales Operations Associate Device Identifier Shelf Expiration Date Model / Serial / Lot [place] Excluder Aaa Endoprothesis System-07/07/2019 Implanted:07/07/19 20 (Quantity not on file) Graft Description:Multiple implant s from system on same day [id number] Cordis Bx Velocity Cardiac Stent-06/02/2002 Implanted:06/02/20 02 (Quantity not on file) Stent CORDIS LEXA BX VELOCITY [id number] / / [id number] Cordis Bx Velocity Cardiac Stent-01/03/2003 Implanted:01/04/20 03 (Quantity not on file) Stent CORDIS LEXA VELOCITY [id number] / / [id number] documented as of this encounter Visit Diagnoses [...] the patient have Health Care Power of Procurement Agent? No Healthcare Agents on File Name Relationship Healthcare Agent Relationship Communication Gus Rosenbaum Jr. Adult Child Health Care R epresentative (appointed verbally by patient or by statute hierarchy) Care Teams Medical Research Assistant Relationship Specialty Start Date End Date Jasson Denney MD [address] [place] [address] [place] [address] PCP - General Family Medicine 03/22/16 documented as of this encounter
--- OUTSIDE RECORDS SUMMARY | 2023-12-22 05:51 | External Medical Summary ---
Author Name Unknown Address Unknown Organization K01:LABORATORY [facility] [address] [place] [address] Laboratory Report Ordering Provider Test Date Status SHEA CASTILLO 09/01/2023 09:17:03 Final Observation Date Value Abnormality Reference (Units ) Status Phosphate 09/01/2023 09:17:03 3.7 2.5-4.8 (m g/dL) Final Performing Location [facility] - [address] [place] [address]
--- OUTSIDE RECORDS SUMMARY | 2023-12-22 05:51 | External Medical Summary ---
Author Name Unknown Address Unknown Organization K01:[facility] [place] - [facility] [address] [place] [address] Laboratory Report Ordering Provider Test Date Status LIONEL GILL 09/01/2023 09:17:03 Final Observation Date Value Abnormality Reference (Units ) Status WBC, Total 09/01/2023 09:17:03 8.66 4.00-10.80 (K/uL) Final RBC 09/01/2023 09:17:03 3.28 3.85-5.15 (M/uL) Final Hemoglobin 09/01/2023 09:17:03 9.2 Below low normal 12.0-15.3 (g/dL) Final HCT 09/01/2023 09:17:03 30.5 Below low normal 36.0-45.2 (%) Final MCV 09/01/2023 09:17:03 93.0 81.5-97.5 (fL) Final MCH 09/01/2023 09:17:03 28.0 27.0-34.0 (pg) Final MCHC 09/01/2023 09:17:03 30.2 32.0-36.0 (g/dL) Final RDW 09/01/2023 09:17:03 15.9 11.5-15.5 (%) Final Platelets 09/01/2023 09:17:03 322 140-400 (K/uL) Final MPV 09/01/2023 09:17:03 9.8 6.6-11.1 (fL) Final Nucleated erythrocytes/100 leukocytes [Ratio] in Blood by Automated count 09/01/2023 09:17:03 0 <=0 (/100 WBCs) Final Performing Location LABORATORY [facility] [place] - [address] [place] [address]
--- OUTSIDE RECORDS SUMMARY | 2023-12-22 05:51 | External Medical Summary | Summary of Care ---
Author Name Unknown Organization [facility] Address [address] [place] [facility] [place] [address] Phone [phone] Care Team Providers Care Medical Services Coordinator Name Role Phone Jasson Denney MD Primary Care Provide r Reason for Visit * Reason Onset Date Comments Follow Up 09/09/2023 Encounter Details Date Type Department Care Team (Late st Contact Info) Description 09/09/2023 Telephone Hematology/Oncology [facility] [place] 200 [facility] [phone] Abena Xiong CRNP 400 [place] [address] Follow Up Allergies Active Allergy Reactions Criticality Noted Date Comments Adhesive Tape 04/11/2006 Latex 06/06/2022 Other reaction(s): rash/itchy documented as of this encounter (statuses as of 09/10/2023) Medications Medication Sig Dispensed Refills Start Date [...] every night at bedtime. 0 07/12/2019 Active Phenylephrine-[place] Butter 0.25-88.44 % Rectal Suppository Administer into the rectum as needed for Hemorrhoids. 0 Active Nitroglycerin 0.4 MG Sublingual Tablet Sublingual (Nitrostat) Place 1 Tablet under the tongue as needed. 0 11/10/2020 Active Isosorbide Mononitrate ER 30 MG Oral Tablet Extended Release 24 Hour (Imdur)Indications: Coronary artery disease involving [place] coronary artery of [place] heart without angina pectoris TAKE 1 TABLET [...] as of this encounter (statuses as of 09/10/2023) Active Problems Problem Noted Date Diagnosed Date Iron deficiency anemia 08/12/2023 Encounter for antineoplastic chemotherapy 2022 Malignant neoplasm of left b reast in female, estrogen receptor positive 06/28/2022 Postherpetic neuralgia 06/28/2022 Hiatal hernia 08/07/2021 Schatzki's ring 08/07/2021 S/P angioplasty with stent 11/15/2020 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 pectoris 11/15/2020 Cardiac murmur [...] as of this encounter (statuses as of 09/10/2023) Resolved Problems Problem Noted Date Diagnosed Date [...] as of this encounter (statuses as of 09/10/2023) Immunizations Name Administration Dates Next Due COVID-19 mRNA, LNP-s, No Pre serve, 2-Dose Series (Electron Database) 08/11/2020,07/21/2020 COVID-19, LNP-s, No Preserve , Dusty-sucrose, Ages 12+ (Electron Database) 02/05/2022,08/07/2021 COVID-19, MRNA-LNP, 23-24, P F, 30 MCG/0.3 mL, 12 YRS AND ABOVE, IM (Conversion Logic-Comirnat) 05/13/2023 Covid-19, Mrna, Lnp-s, Pf, B ivalent, 30 Mcg, IM, 12 yrs and above (Electron Database) 06/11/2022 Pneumococcal Conjugate Vacc, 13 Valent (Prevnar) [...] please add lab appt on 09/29 @ [facility] "Ferritin, Iron, CBCD" Dr. Parrish- Patient has [...] PM EDT Office Visit Interventional Pain Center, [facility] [address] [place] [address] Sarah Richardson PA-C [address] [place] [address] 09/30/2023 10:00 AM EDT Laboratory Laboratory [address] [place] [phone] [address] [place] [address] 10/13/2023 2:20 PM EDT Office Visit Nephrology [address] [place] [address] Maritza Parrish MD 200 [facility] [place] [address] 10/16/2023 3:30 PM EDT Office Visit Hematology/Oncolog y [facility] [place] 200 [facility] [place] [phone] Abena Xiong CRNP [address] [place] [address] 11/25/2023 2:30 PM EDT Hospital Encounter ENDO [facility], Endoscopy Room [facility] [address] [place], [place] [phone] Nitin Austin, DO [address] [place] [address] 11/25/2023 2:30 PM EDT - 11/25/2023 3:00 PM EDT Surgery ENDO [facility], Endoscopy Room [facility] [address] [place] [address] Nitin Austin, DO [address] [place] [address] COLONOSCOPY FLEXIBLE PROXIMAL DIAGNOSTIC 02/10/2024 1:00 PM EDT Office Visit [address] [place] [phone] Kahlil Mooney CRNP [address] [place] [address] [place] [address] 04/05/2024 1:20 PM EDT Office Visit Dermatology [address] [place] [address] Melanie Frank PA-C [address] [place] [address] [place] [address] 08/17/2024 1:40 PM EST Office Visit [address] [place] [phone] Jasson Denney MD [address] [place] [address] [place] [address] Scheduled Procedures Name Priority Associated Diagnoses Date/Ti [...] COPD 08/12/2024 08/12/2023 CKD HGB USE SMARTSET 78319 08/31/202408/31, 09/01/2023, 07/17/2023, Additional history exists CKD PHOS USE SMARTSET 61688 08/31/202408/14, 07/25/2022, 01/10/2022, Additional history exists DXA [...] this encounter Medical Devices Implanted Type Area Shipyard Painter Device Identifier Shelf Expiration Date Model / Serial / Lot [place] Excluder Aaa Endoprothesis System-07/07/2019 Implanted:07/07/19 20 (Quantity not on file) Graft Description:Multiple implant s from system on same day [id number] Cordis Bx Velocity Cardiac Stent-06/02/2002 Implanted:06/02/20 02 (Quantity not on file) Stent CORDIS LEXA BX VELOCITY [id number] / / [id number] Cordis Bx Velocity Cardiac Stent-01/03/2003 Implanted:01/04/20 03 (Quantity not on file) Stent CORDIS LEXA VELOCITY [id number] / / [id number] documented as of this encounter Advance Directives [...] the patient have Health Care Power of Tube Room Cashier? No Healthcare Agents on File Name Relationship Healthcare Agent Relationship Communication Gus Rosenbaum Jr. Adult Child Health Care R epresentative (appointed verbally by patient or by statute hierarchy) Care Teams Medical Services Coordinator Relationship Specialty Start Date End Date Jasson Denney MD [address] [place] [address] [place] [address] PCP - General Family Medicine 03/22/16 documented as of this encounter
--- OUTSIDE RECORDS SUMMARY | 2023-12-22 05:51 | External Medical Summary | Summary of Care ---
Author Name Unknown Organization [facility] Address [address] [place] [place] [place] [address] Phone [phone] Care Team Providers Care Road Passenger Firer Name Role Phone Jasson Denney MD Primary Care Provide r Encounter Details Date Type Department Care Team (Late st Contact Info) Description 09/02/2023 Telephone Hematology/Oncology [facility] [place] [address] [facility] [phone] Abena Xiong CRNP 400 [place] [address] Allergies Active Allergy Reactions Criticality Noted Date Comments Adhesive Tape 04/11/2006 Latex 06/06/2022 Other reaction(s): rash/itchy documented as of this encounter (statuses as of 09/02/2023) Medications Medication Sig Dispensed Refills Start Date [...] every night at bedtime. 0 07/12/2019 Active Phenylephrine-[place] Butter 0.25-88.44 % Rectal Suppository Administer into the rectum as needed for Hemorrhoids. 0 Active Nitroglycerin 0.4 MG Sublingual Tablet Sublingual (Nitrostat) Place 1 Tablet under the tongue as needed. 0 11/10/2020 Active Clopidogrel Bisulfate 75 MG Oral Tablet (pLAVix)Indications :HTN, goal below 140/90 TAKE 1 TABLET BY MOUTH DAILY 90 Tablet 1 04/02/2023 Active Isosorbide Mononitrate ER 30 MG Oral Tablet Extended Release 24 Hour (Imdur)Indications: Coronary artery disease involving [place] coronary artery of [...] EVERY DAY 90 Capsule 1 09/01/2023 Active documented as of this encounter (statuses as of 09/02/2023) Active Problems Problem Noted Date Diagnosed Date [...] as of this encounter (statuses as of 09/02/2023) Resolved Problems Problem Noted Date Diagnosed Date [...] as of this encounter (statuses as of 09/02/2023) Immunizations Name Administration Dates Next Due COVID-19 mRNA, LNP-s, No Pre serve, 2-Dose Series (ThingWorx) 08/11/2020,07/21/2020 COVID-19, LNP-s, No Preserve , Dusty-sucrose, Ages 12+ (ThingWorx) 02/05/2022,08/07/2021 COVID-19, MRNA-LNP, 23-24, P F, 30 MCG/0.3 mL, 12 YRS AND ABOVE, IM (Sighter-Comirnat) 05/13/2023 Covid-19, Mrna, Lnp-s, Pf, B ivalent, 30 Mcg, IM, 12 yrs and above (ThingWorx) 06/11/2022 Pneumococcal Conjugate Vacc, 13 Valent (Prevnar) [...] Telephone Encounter - Ty Alonso RN - 09/02/2023 2:54 PM EDT Pt states she had a lot of issues with stomach pain and constipation when she first started the medication. She switched to every other day, and has been taking either prior to lunch/dinner per Dr. Denney. Advised patient that we can try IV iron instead, she would like to try and do oral daily first. Spoke to ravindra Kraft with following up in 1 week to see how patient is tolerating daily iron, if not tolerating, can switch to IV iron. Called patient back, she is aware to take Vitron C daily x 1 week and we will call to follow up with her. * Telephone Encounter - Abena Xiong CRNP - 09/02/2023 2:27 PM EDT Results for orders placed or performed in visit on 09/01/23 IRON SCREEN, INCLUDING TIBC Result Value Ref Range Iron 28 (L) 33 - 151 ug/dL Iron Binding Capacity 317 250 - 425 ug/dL Transferrin Saturation Percent 9 (L) 15 - 55 % FERRITIN Result Value Ref Range Ferritin 33 13 - 150 ng/mL CBC Result Value Ref Range WBC 8.66 4.00 - 10.80 K/uL RBC 3.28 3.85 - 5.15 M/uL HGB 9.2 (L) 12.0 - 15.3 g/dL HCT 30.5 (L) 36.0 - 45.2 % MCV 93.0 81.5 - 97.5 fL MCH 28.0 27.0 - 34.0 pg MCHC 30.2 32.0 - 36.0 g/dL RDW 15.9 11.5 - 15.5 % PLT 322 140 - 400 K/uL MPV 9.8 6.6 - 11.1 fL nRBCs 0 <=0 /100 WBCs DIFFERENTIAL, AUTOMATED Result Value Ref Range WBC 8.66 4.00 - 10.80 K/uL Neutrophils % 75.9 (H) 40.0 - 75.0 % Lymphocytes % 10.0 (L) 18.0 - 42.0 % Monocytes % 8.8 1.0 - 11.0 % Eosinophils % 4.0 0.0 - 6.0 % Basophils % 0.7 0.0 - 2.0 % Immature Granulocytes % 0.6 0.0 - 2.0 % Absolute Neutrophils 6.57 1.80 - 7.70 K/uL Absolute Lymphocytes 0.87 (L) 1.00 - 4.80 K/ul Absolute Monocytes 0.76 0.00 - 1.10 K/uL Absolute Eosinophils 0.35 0.00 - 0.70 K/uL Absolute Basophils 0.06 0.00 - 0.20 K/uL Absolute Immature Granulocytes 0.05 0.00 - 0.20 K/uL No improvement in iron deficiency anemia after six weeks on Vitron C once daily. Please follow up with patient to see how she is tolerating Vitron C. May need to consider for IV iron therapy if unable to increase dose of oral iron. documented in this encounter Plan of Treatment Upcoming Encounters Date Type Department Care Team (Latest Contact Info) Description 09/24/2023 2:30 PM EDT Office Visit Interventional Pain Center, [facility] [address] [place] [address] Sarah Richardson PA-C [address] [place] [address] 10/13/2023 2:00 PM EDT Laboratory Laboratory [address] [place] [phone] [place] [address] 10/13/2023 2:20 PM EDT Office Visit Nephrology [address] [place] [address] Maritza Parrish MD [address] [place] [address] 10/16/2023 3:30 PM EDT Office Visit Hematology/Oncolog y [facility] [address] [place] [phone] Abena Xiong CRNP 400 [facility] [place] [id number] 11/25/2023 2:30 PM EDT Hospital Encounter ENDO [facility], Endoscopy Room [facility] [address] [place] [phone] Nitin Austin DO [address] [place] [address] 11/25/2023 2:30 PM EDT - 11/25/2023 3:00 PM EDT Surgery ENDO [facility], Endoscopy Room [facility] [address] [place] [address] Nitin Austin, DO [address] [place] [address] COLONOSCOPY FLEXIBLE PROXIMAL DIAGNOSTIC 02/10/2024 1:00 PM EDT Office Visit [address] [place] [phone] Kahlil Mooney CRNP [address] [place] [address] [place] [address] 04/05/2024 1:20 PM EDT Office Visit Dermatology [address] [place] [address] Melanie Frank PA-C [address] [place] [address] [place] [address] 08/17/2024 1:40 PM EST Office Visit [address] [place] [phone] Jasson Denney MD [address] [place] [address] [place] [address] Scheduled Procedures Name Priority Associated Diagnoses Date/Ti [...] 10/2021, 11/01/2020, Additional history exists Albumin/Creatinine Ratio 06/30/20242 024, 07/25/2022, 08/07/2021, Additional history exists O2 ASSESSMENT COMPLETED IN PAST YEAR FOR COPD 08/12/2024 08/12/2023 CKD HGB USE SMARTSET 87562 08/31/202408/31, 09/01/2023, 07/17/2023, Additional history exists CKD PHOS USE SMARTSET 92547 08/31/202408/14, 07/25/2022, 01/10/2022, Additional history exists DXA [...] this encounter Medical Devices Implanted Type Area Vp Analytics Device Identifier Shelf Expiration Date Model / Serial / Lot [place] Excluder Aaa Endoprothesis System-07/07/2019 Implanted:07/07/19 20 (Quantity not on file) Graft Description:Multiple implant s from system on same day [id number] Cordis Bx Velocity Cardiac Stent-06/02/2002 Implanted:06/02/20 02 (Quantity not on file) Stent CORDIS LEXA BX VELOCITY [id number] / / [id number] Cordis Bx Velocity Cardiac Stent-01/03/2003 Implanted:01/04/20 03 (Quantity not on file) Stent CORDIS LEXA VELOCITY [id number] / / [id number] documented as of this encounter Advance Directives [...] the patient have Health Care Power of Chief Operating Officer? No Healthcare Agents on File Name Relationship Healthcare Agent Relationship Communication Gus Rosenbaum Jr. Adult Child Health Care R epresentative (appointed verbally by patient or by statute hierarchy) Care Teams Road Passenger Firer Relationship Specialty Start Date End Date Jasson Denney MD [address] [place] [address] [place] [address] PCP - General Family Medicine 03/22/16 documented as of this encounter
--- OUTSIDE RECORDS SUMMARY | 2023-12-22 05:51 | External Medical Summary | Summary of Care ---
Author Name Unknown Organization [facility] Address [address] [facility] [place] [address] Phone [phone] Care Team Providers Care Palliative Care Nurse Practitioner Name Role Phone Jasson Denney MD Primary Care Provide r Reason for Visit * Reason Comments Outpatient Testing Encounter Details Date Type Department Care Team (Late st Contact Info) Description 09/01/2023 9:20 AM EDT Laboratory Laboratory [address] [place] [phone] [facility] [address] [place] [address] Iron deficiency anemia, unspecified iron deficiency anemia [...] every night at bedtime. 0 07/12/2019 Active Phenylephrine-[place] Butter 0.25-88.44 % Rectal Suppository Administer into [...] 24 Hour (Imdur)Indications: Coronary artery disease involving [place] coronary artery of [place] heart without angina pectoris TAKE 1 TABLET [...] stent 11/15/2020 Coronary artery disease invo lving [place] heart without angina pectoris 11/15/2020 Cardiac murmur [...] mRNA, LNP-s, No Pre serve, 2-Dose Series (Visible Technologies) 08/11/2020,07/21/2020 COVID-19, LNP-s, No Preserve , Dusty-sucrose, Ages 12+ (Visible Technologies) 02/05/2022,08/07/2021 COVID-19, MRNA-LNP, 23-24, P F, 30 MCG/0.3 mL, 12 YRS AND ABOVE, IM (GlassesGroupGlobal-Comirnat) 05/13/2023 Covid-19, Mrna, Lnp-s, Pf, B ivalent, 30 Mcg, IM, 12 yrs and above (Visible Technologies) 06/11/2022 Pneumococcal Conjugate Vacc, 13 Valent (Prevnar) [...] PM EDT Office Visit Interventional Pain Center, [facility] [address] [place] [address] Sarah Richardson PA-C [address] [place] [address] 10/13/2023 2:00 PM EDT Laboratory Laboratory [address] [place] [phone] [address] [place] [address] 10/13/2023 2:20 PM EDT Office Visit Nephrology [address] [place] [address] Maritza Parrish MD [address] [place] [address] 10/16/2023 3:30 PM EDT [facility] [employer] [address] [place] [phone] Abena Xiong CRNP [address] [place] [address] 11/25/2023 2:30 PM EDT Hospital Encounter ENDO [facility], Endoscopy Room [facility] [address] [place] [phone] Nitin Austin, DO [address] [place] [address] 11/25/2023 2:30 PM EDT - 11/25/2023 3:00 PM EDT Surgery ENDO [facility], Endoscopy Room [facility] [address] [place] [phone] Nitin Austin, DO [address] [place] [address] COLONOSCOPY FLEXIBLE PROXIMAL DIAGNOSTIC 02/10/2024 1:00 PM EDT Office Visit Family Medicine [address] [place] [phone] Kahlil Mooney CRNP [address] [place] [address] [place] [address] 04/05/2024 1:20 PM EDT Office Visit Dermatology [address] [place] [address] Melanie Frank PA-C [address] [place] [address] [place] [address] 08/17/2024 1:40 PM EST Office Visit Family Medicine [address] [place] [phone] Jasson Denney MD [address] [place] [address] [place] [address] Pending Results Name Type Priority Associated Diagnoses [...] anemia type 09/01/2023 9:17 AM EDT Scheduled Procedures Name Priority Associated Diagnoses Date/Ti me COLONOSCOPY FLEXIBLE PROXIMAL DIAGNOSTIC Iron deficiency anemia 11/25/2023 2:30 PM EDT Health Maintenance Due Date Last Done Comments Alpha-1 Antitrypsin 1958 DTaP,Tdap,and Td Vaccines (1 - Tdap) 1959 Zoster Vaccines (1 of 2) 1990 *COPD SEVERITY VERIFIED BY PFT 01/02/2018 Depression Screening 08/07/2022 08/07/2021 CKD PHOS USE SMARTSET 42843 07/25/2023 02/0 02/2023, 01/10/2022, 01/11/2021, Additional history exists GFR 01/15/2024 07/17/2023, 06/16, 03/20/2023, Additional history exists HbA1c 03/20/2024 03/20/2023, 10/2021, 11/01/2020, Additional history exists Albumin/Creatinine Ratio 06/30/2024 024, 07/25/2022, 08/07/2021, Additional history exists CKD HGB USE SMARTSET 68540 07/17/202407/17, 07/17/2023, 06/30/2023, Additional history exists O2 [...] this encounter Medical Devices Implanted Type Area Professor Of Literature Device Identifier Shelf Expiration Date Model / Serial / Lot [place] Excluder Aaa Endoprothesis System-07/07/2019 Implanted:07/07/19 20 (Quantity not on file) Graft Description:Multiple implant s from system on same day [id number] Cordis Bx Velocity Cardiac Stent-06/02/2002 Implanted:06/02/20 02 (Quantity not on file) Stent CORDIS LEXA BX VELOCITY [id number] / / [id number] Cordis Bx Velocity Cardiac Stent-01/03/2003 Implanted:01/04/20 03 (Quantity not on file) Stent CORDIS LEXA VELOCITY [id number] / / [id number] documented as of this encounter Visit Diagnoses [...] the patient have Health Care Power of Heavy Duty Press Operator? No Healthcare Agents on File Name Relationship Healthcare Agent Relationship Communication Gus Matier Jr. Adult Child Health Care R epresentative (appointed verbally by patient or by statute hierarchy) Care Teams Palliative Care Nurse Practitioner Relationship Specialty Start Date End Date Jasson Denney MD [address] [place] [address] [place] [address] PCP - General Family Medicine 03/22/16 documented as of this encounter
--- OUTSIDE RECORDS SUMMARY | 2023-12-22 05:51 | External Medical Summary ---
Author Name Unknown Address Unknown Organization K01:LABORATORY [facility] [place] - [address] [place] [address] Laboratory Report Ordering Provider Test Date Status LIONEL GILL 09/01/2023 09:17:03 Final Observation Date Value Abnormality Reference (Units ) Status Iron 09/01/2023 09:17:03 28 Below low normal 33-151 (ug/dL) Final Iron-binding capacity 09/01/2023 09:17:03 317 250-425 (ug/dL) Final Transferrin Sat % 09/01/2023 09:17:03 9 Below low normal 15-55 (%) Final Performing Location LABORATORY C - [address] [place] [address]
--- OUTSIDE RECORDS SUMMARY | 2023-12-22 05:51 | External Medical Summary ---
Author Name Unknown Address Unknown Organization K01:LABORATORY [facility] [place] - [address] [facility] [place] [address] Laboratory Report Ordering Provider Test Date Status LIONEL GILL 09/01/2023 09:17:03 Final Observation Date Value Abnormality Reference (Units ) Status SYNC LEUKOCYTES IN BLOOD BY AUTOMATED COUNT 09/01/2023 09:17:03 8.66 4.00-10.80 (K/uL) Final Segs 09/01/2023 09:17:03 75.9 Above high normal 40.0-75.0 (%) Final Lymphs % 09/01/2023 09:17:03 10.0 Below low normal 18.0-42.0 (%) Final Monos 09/01/2023 09:17:03 8.8 1.0-11.0 (%) Final Eosinophils 09/01/2023 09:17:03 4.0 0.0-6.0 (%) Final Basos 09/01/2023 09:17:03 0.7 0.0-2.0 (%) Final Immature Granulocyte, Percent 09/01/2023 09:17:03 0.6 0.0-2.0 (%) Final Absolute Segs 09/01/2023 09:17:03 6.57 1.80-7.70 (K/uL) Final Lymphs, absolute 09/01/2023 09:17:03 0.87 Below low normal 1.00-4.80 (K/ul) Final Monos, Abs 09/01/2023 09:17:03 0.76 0.00-1.10 (K/uL) Final Eos, Abs 09/01/2023 09:17:03 0.35 0.00-0.70 (K/uL) Final Basos, Abs 09/01/2023 09:17:03 0.06 0.00-0.20 (K/uL) Final Immature Granulocytes, Number 09/01/2023 09:17:03 0.05 0.00-0.20 (K/uL) Final Performing Location LABORATORY [facility] [place] - [facility] [place] [address]
--- OUTSIDE RECORDS SUMMARY | 2023-12-22 05:51 | External Medical Summary | Summary of Care ---
Author Name Unknown Organization [facility] Address [address] [place] [address] Phone [phone] Care Team Providers Care Customer Solutions Teammate Name Role Phone Jasson Denney MD Primary Care Provide r Reason for Visit * Reason Onset Date Comments Follow Up 09/09/2023 Encounter Details Date Type Department Care Team (Late st Contact Info) Description 09/09/2023 Telephone Hematology/Oncology [facility] [place] 200 [facility] [address] Abena Xiong CRNP 400 [place] [address] Follow Up Allergies Active Allergy Reactions Criticality Noted Date Comments Adhesive Tape 04/11/2006 Latex 06/06/2022 Other reaction(s): rash/itchy documented as of this encounter (statuses as of 09/09/2023) Medications Medication Sig Dispensed Refills Start Date [...] every night at bedtime. 0 07/12/2019 Active Phenylephrine-[place] Butter 0.25-88.44 % Rectal Suppository Administer into the rectum as needed for Hemorrhoids. 0 Active Nitroglycerin 0.4 MG Sublingual Tablet Sublingual (Nitrostat) Place 1 Tablet under the tongue as needed. 0 11/10/2020 Active Isosorbide Mononitrate ER 30 MG Oral Tablet Extended Release 24 Hour (Imdur)Indications: Coronary artery disease involving [place] coronary artery of [place] heart without angina pectoris TAKE 1 TABLET [...] as of this encounter (statuses as of 09/09/2023) Active Problems Problem Noted Date Diagnosed Date Iron deficiency anemia 08/12/2023 Encounter for antineoplastic chemotherapy 2022 Malignant neoplasm of left b reast in female, estrogen receptor positive 06/28/2022 Postherpetic neuralgia 06/28/2022 Hiatal hernia 08/07/2021 Schatzki's ring 08/07/2021 S/P angioplasty with stent 11/15/2020 Coronary artery disease invo lving [place] heart without angina pectoris 11/15/2020 Cardiac murmur [...] as of this encounter (statuses as of 09/09/2023) Resolved Problems Problem Noted Date Diagnosed Date [...] as of this encounter (statuses as of 09/09/2023) Immunizations Name Administration Dates Next Due COVID-19 mRNA, LNP-s, No Pre serve, 2-Dose Series ([employer]) 08/11/2020,07/21/2020 COVID-19, LNP-s, No Preserve , Dusty-sucrose, Ages 12+ ([employer]) 02/05/2022,08/07/2021 COVID-19, MRNA-LNP, 23-24, P F, 30 MCG/0.3 mL, 12 YRS AND ABOVE, IM ([employer] Sound-Comirnat) 05/13/2023 Covid-19, Mrna, Lnp-s, Pf, B ivalent, 30 Mcg, IM, 12 yrs and above ([employer]) 06/11/2022 Pneumococcal Conjugate Vacc, 13 Valent (Prevnar) [...] meal time to helpdecrease stomach discomfort. Abena- fyi, when would you like her to re-check labs? She has been taking Vitron C daily x 1 week. documented in this encounter Plan of Treatment Upcoming Encounters Date Type Department Care Team (Latest Contact Info) Description 09/24/2023 2:30 PM EDT Office Visit Interventional Pain Center, [facility] 132 [facility] [place] [address] Sarah Richardson PA-C [address] [place] [address] 10/13/2023 2:00 PM EDT Laboratory Laboratory [address] [place] [phone] [facility] [address] [place] [address] 10/13/2023 2:20 PM EDT Office Visit Nephrology [address] [place] [address] Maritza Parrish MD [address] [place] [address] 10/16/2023 3:30 PM EDT Office Visit Hematology/Oncolog y [facility] [place] [address] [place] [address] Abena Xiong CRNP 400 [facility] [place] [phone] 11/25/2023 2:30 PM EDT Hospital Encounter ENDO [facility], Endoscopy Room [facility] [address] [place] [phone] Nitin Austin, DO [address] [place] [address] 11/25/2023 2:30 PM EDT - 11/25/2023 3:00 PM EDT Surgery ENDO [facility], Endoscopy Room [facility] [address] [place] [phone] Nitin Austin, DO [address] [place] [address] COLONOSCOPY FLEXIBLE PROXIMAL DIAGNOSTIC 02/10/2024 1:00 PM EDT Office [address] [phone] Kahlil Mooney CRNP [address] [place] [address] [place] [address] 04/05/2024 1:20 PM EDT Office Visit Dermatology [address] [place] [address] Melanie Frank PA-C [address] [place] [address] [place] [address] 08/17/2024 1:40 PM EST Office Visit [address] [place] [phone] Jasson Denney MD [address] [place] [address] [place] [address] Scheduled Procedures Name Priority Associated Diagnoses Date/Ti [...] COPD 08/12/2024 08/12/2023 CKD HGB USE SMARTSET 52990 08/31/202408/31, 09/01/2023, 07/17/2023, Additional history exists CKD PHOS USE SMARTSET 36886 08/31/202408/14, 07/25/2022, 01/10/2022, Additional history exists DXA [...] this encounter Medical Devices Implanted Type Area Registry Nurse Device Identifier Shelf Expiration Date Model / Serial / Lot [place] Excluder Aaa Endoprothesis System-07/07/2019 Implanted:07/07/19 20 (Quantity not on file) Graft Description:Multiple implant s from system on same day [id number] Cordis Bx Velocity Cardiac Stent-06/02/2002 Implanted:06/02/20 02 (Quantity not on file) Stent CORDIS LEXA BX VELOCITY [id number] / / [id number] Cordis Bx Velocity Cardiac Stent-01/03/2003 Implanted:01/04/20 03 (Quantity not on file) Stent CORDIS LEXA VELOCITY [id number] / / [id number] documented as of this encounter Advance Directives [...] the patient have Health Care Power of Customer Solutions Teammate? No Healthcare Agents on File Name Relationship Healthcare Agent Relationship Communication Gus Rosenbaum Jr. Adult Child Health Care R epresentative (appointed verbally by patient or by statute hierarchy) Care Teams Customer Solutions Teammate Relationship Specialty Start Date End Date Jasson Denney MD [address] [place] [address] [place] [phone] PCP - General Family Medicine 03/22/16 documented as of this encounter
--- OUTSIDE RECORDS SUMMARY | 2023-12-22 05:51 | External Medical Summary | Summary of Care ---
Author Name Unknown Organization [facility] Address [address] [place] [address] Phone [phone] Care Team Providers Care Railway Engineer Name Role Phone Jasson Denney MD Primary Care Provide r Encounter Details Date Type Department Care Team (Late st Contact Info) Description 09/02/2023 Telephone Hematology/Oncology [facility] [place] [address] [facility] [address] Abena Xiong CRNP 400 [place] [address] Allergies Active Allergy Reactions Criticality Noted [...] 24 Hour (Imdur)Indications: Coronary artery disease involving tan[place] coronary artery of [place] heart without angina pectoris TAKE 1 TABLET [...] stent 11/15/2020 Coronary artery disease invo lving tanana heart without angina pectoris 11/15/2020 Cardiac murmur [...] mRNA, LNP-s, No Pre serve, 2-Dose Series ([employer]) 08/11/2020,07/21/2020 COVID-19, LNP-s, No Preserve , Dusty-sucrose, Ages 12+ ([employer]) 02/05/2022,08/07/2021 COVID-19, MRNA-LNP, 23-24, P F, 30 MCG/0.3 mL, 12 YRS AND ABOVE, IM ([employer]-Comirnat) 05/13/2023 Covid-19, Mrna, Lnp-s, Pf, B ivalent, 30 Mcg, IM, 12 yrs and above ([employer]) 06/11/2022 Pneumococcal Conjugate Vacc, 13 Valent (Prevnar) [...] encounter Miscellaneous Notes * Telephone Encounter - Abena Xiong CRNP [...] PM EDT Office Visit Interventional Pain Center, [facility] 132 [place] [address] Sarah Richardson PA-C [address] [address] 10/13/2023 2:00 PM EDT Laboratory Laboratory [address] [place] [phone] [address] [place] [address] 10/13/2023 2:20 PM EDT Office Visit Nephrology [address] [place] [address] Maritza Parrish MD [address] [place] [address] 10/16/2023 3:30 PM EDT Office Visit Hematology[facility]olog [facility] [address] [place] [phone] Abena Xiong CRNP [address] [place] [phone] 11/25/2023 2:30 PM EDT Hospital Encounter ENDO [facility], Endoscopy Room [facility] [address] [place] [phone] Nitin Austin, DO [address] [place] [address] 11/25/2023 2:30 PM EDT - 11/25/2023 3:00 PM EDT Surgery ENDO [facility], Endoscopy Room [facility] [address] [place] [phone] Nitin Austin, DO [address] [place] [address] COLONOSCOPY FLEXIBLE PROXIMAL DIAGNOSTIC 02/10/2024 1:00 PM EDT Office Visit Family Medicine [address] [place] [phone] Kahlil Mooney CRNP [address] [place] [address] [place] [address] 04/05/2024 1:20 PM EDT Office Visit Dermatology [address] [place] [address] Melanie Frank PA-C [address] [place] [address] [place] [address] 08/17/2024 1:40 PM EST Office Visit Family Medicine [address] [place] [phone] Jasson Denney MD [address] [place] [address] [place] [address] Scheduled Procedures Name Priority Associated Diagnoses Date/Ti me COLONOSCOPY FLEXIBLE PROXIMAL DIAGNOSTIC Iron deficiency anemia 11/25/2023 2:30 PM EDT Health Maintenance Due Date Last Done Comments Alpha-1 Antitrypsin 1958 DTaP,Tdap,and Td Vaccines (1 - Tdap) 1959 Zoster Vaccines (1 of 2) 1990 *COPD SEVERITY VERIFIED BY PFT 01/02/2018 Depression Screening 08/07/2022 08/07/2021 GFR 01/15/2024 07/17/2023, 06/16, 03/20/2023, Additional history exists HbA1c 03/20/2024 03/20/2023, 1010/2021, 11/01/2020, Additional history exists Albumin/Creatinine Ratio 06/30/2024 024, 07/25/2022, 08/07/2021, Additional history exists O2 ASSESSMENT COMPLETED IN PAST YEAR FOR COPD 08/12/2024 08/12/2023 CKD HGB USE SMARTSET 25695 08/31/202408/31, 09/01/2023, 07/17/2023, Additional history exists CKD PHOS USE SMARTSET 92225 08/31/202408/14, 07/25/2022, 01/10/2022, Additional history exists DXA [...] this encounter Medical Devices Implanted Type Area Mortgage Loan Counselor Device Identifier Shelf Expiration Date Model / Serial / Lot [place] Excluder Aaa Endoprothesis System-07/07/2019 Implanted:07/07/19 20 (Quantity not on file) Graft Description:Multiple implant s from system on same day [id number] Cordis Bx Velocity Cardiac Stent-06/02/2002 Implanted:06/02/20 02 (Quantity not on file) Stent CORDIS LEXA BX VELOCITY [id number] / / [id number] Cordis Bx Velocity Cardiac Stent-01/03/2003 Implanted:01/04/20 03 (Quantity not on file) Stent CORDIS LEXA VELOCITY [id number] / / [id number] documented as of this encounter Advance Directives [...] the patient have Health Care Power of Manufacturing Teacher? No Healthcare Agents on File Name Relationship Healthcare Agent Relationship Communication Gus Rosenbaum Jr. Adult Child Health Care R epresentative (appointed verbally by patient or by statute hierarchy) Care Teams Railway Engineer Relationship Specialty Start Date End Date Jasson Denney MD [address] [place] [address] [place] [address] PCP - General Family Medicine 03/22/16 documented as of this encounter
--- OUTSIDE RECORDS SUMMARY | 2023-12-22 05:51 | External Medical Summary ---
Author Name Unknown Address Unknown Organization K01:[facility] [place] - [address] [place] [address] [place] [address] Laboratory Report Ordering Provider Test Date Status LIONEL GILL 09/01/2023 09:17:03 Final Observation Date Value Abnormality Reference (Units ) Status Ferritin 09/01/2023 09:17:03 33 13-150 (ng /mL) Final Postmenopausal women have hi gher ferritin levels than pre-menopausal women. The above reference interval is based on pre-menopausal women. Performing Location [facility] - [address] [place] [address]
--- OUTSIDE RECORDS SUMMARY | 2023-12-22 05:51 | External Medical Summary | Summary of Care ---
Author Name Unknown Organization [facility] Address [address] [facility] [place] [place] [address] Phone [phone] Care Team Providers Care Database Marketing Specialist Name Role Phone Jasson Denney MD Primary Care Provide r Reason for Visit * Reason Comments eRx-Medication Refill Encounter Details Date Type Department Care Team (Late st Contact Info) Description 09/04/2023 Refill Family Medicine [address] [phone] Jasson Denney MD [address] [place] [address] [place] [address] Dyslipidemia, goal to be determined; HTN, goal below 140/90 Allergies Active Allergy Reactions Criticality Noted Date Comments Adhesive Tape 04/11/2006 Latex 06/06/2022 Other reaction(s): rash/itchy documented as of this encounter (statuses as of 09/04/2023) Medications Medication Sig Dispensed Refills Start Date [...] 24 Hour (Imdur)Indication s:Coronary artery disease involving [place] coronary artery of [place] heart without angina pectoris TAKE 1 TABLET BY MOUTH EVERY DAY IN THE MORNING 90 Tablet 1 05/30/2023 Active Atenolol 25 MG Oral Tablet (Tenormin)Indicat [...] 09/01/2023 Active Ezetimibe 10 MG Oral Tablet (Zetia)Indication [...] BY MOUTH DAILY 90 Tablet 1 04/02/2023 4 Discontinued Ezetimibe 10 MG Oral Tablet (Zetia)Indication s:Dyslipidemia, goal to be determined TAKE 1 TABLET BY MOUTH DAILY 90 Tablet 0 06/17/2023 4 Discontinued documented as of this encounter (statuses as of 09/04/2023) Active Problems Problem Noted Date Diagnosed Date Iron deficiency anemia 08/12/2023 Encounter for antineoplastic chemotherapy 2022 Malignant neoplasm of left b reast in female, estrogen receptor positive 06/28/2022 Postherpetic neuralgia 06/28/2022 Hiatal hernia 08/07/2021 Schatzki's ring 08/07/2021 S/P angioplasty with stent 11/15/2020 Coronary artery disease invo lving [place] heart without angina pectoris 11/15/2020 Cardiac [...] as of this encounter (statuses as of 09/04/2023) Resolved Problems Problem Noted Date Diagnosed Date [...] as of this encounter (statuses as of 09/04/2023) Immunizations Name Administration Dates Next Due COVID-19 mRNA, LNP-s, No Pre serve, 2-Dose Series ([employer] 08/11/2020,07/21/2020 COVID-19, LNP-s, No Preserve , Dusty-sucrose, Ages 12+ (Pfizer) 02/05/2022,08/07/2021 COVID-19, MRNA-LNP, 23-24, P F, 30 MCG/0.3 mL, 12 YRS AND ABOVE, IM ([facility] 05/13/2023 Covid-19, Mrna, Lnp-s, Pf, B ivalent, 30 Mcg, IM, 12 yrs and above ([employer] 06/11/2022 Pneumococcal Conjugate Vacc, 13 Valent (Prevnar) [...] encounter Miscellaneous Notes * Telephone Encounter - Selena Albright, [facility] - 09/04/2023 4:17 PM EDTSigned Prescriptions: Disp Refills Ezetimibe 10 MG Oral Tablet (Zetia) 90 Tab*3 Sig: TAKE 1 TABLET BY MOUTH DAILYAuthorizing Provider: JASSON DENNEYOrderuzair User: SELENA ALBRIGHT Clopidogrel Bisulfate 75 MG Oral Tablet (p*90 Tab*3 Sig: TAKE 1 TABLET BY MOUTH DAILYAuthorizing Provider: JASSON DENNEY User: SELENA ALBRIGHT documented in this encounter Plan of Treatment Upcoming Encounters Date Type Department Care Team (Latest Contact Info) Description 09/24/2023 2:30 PM EDT Office Visit Interventional Pain Center, [facility] [address] [place] [address] Sarah Richardson PA-C [address] [place] [address] 10/13/2023 2:00 PM EDT Laboratory Laboratory [address] [place] [phone] [place] [address] 10/13/2023 2:20 PM EDT Office Visit Nephrology [address] [place] [address] Maritza Parrish MD 200 [facility] [place] [address] 10/16/2023 3:30 PM EDT Office Visit Hematology/Oncolog y [facility] [place] 200 [facility] [place] [address] Abena Xiong CRNP 400 [facility] [place] [address] 11/25/2023 2:30 PM EDT Hospital Encounter ENDO [facility], Endoscopy Room [facility] [address] [place] [phone] Nitin Austin, DO [address] [place] [address] 11/25/2023 2:30 PM EDT - 11/25/2023 3:00 PM EDT Surgery ENDO [facility], Endoscopy Room [facility] [address] [place] [address] Nitin Austin, DO [address] [place] [address] COLONOSCOPY FLEXIBLE PROXIMAL DIAGNOSTIC 02/10/2024 1:00 PM EDT Office [address] [phone] Kahlil Mooney CRNP [address] [place] [address] [place] [address] 04/05/2024 1:20 PM EDT Office Visit Dermatology [address] [place] [address] Melanie Frank PA-C [address] [place] [address] [place] [address] 08/17/2024 1:40 PM EST Office Visit [address] [place] [phone] Jasson Denney MD [address] [place] [address] [place] [address] Scheduled Procedures Name Priority Associated Diagnoses Date/Ti [...] COPD 08/12/2024 08/12/2023 CKD HGB USE SMARTSET 71155 08/31/202408/31, 09/01/2023, 07/17/2023, Additional history exists CKD PHOS USE SMARTSET 49666 08/31/202408/14, 07/25/2022, 01/10/2022, Additional history exists DXA [...] this encounter Medical Devices Implanted Type Area Snow Removal/Plowing Device Identifier Shelf Expiration Date Model / Serial / Lot [place] Excluder Aaa Endoprothesis System-07/07/2019 Implanted:07/07/19 20 (Quantity not on file) Graft Description:Multiple implant s from system on same day [id number] Cordis Bx Velocity Cardiac Stent-06/02/2002 Implanted:06/02/20 02 (Quantity not on file) Stent CORDIS LEXA BX VELOCITY [id number] / / [id number] Cordis Bx Velocity Cardiac Stent-01/03/2003 Implanted:01/04/20 03 (Quantity not on file) Stent CORDIS LEXA VELOCITY [id number] / / [id number] documented as of this encounter Visit Diagnoses Diagnosis Dyslipidemia, goal to be determined Other and unspecified hyperlipidemia HTN, goal below 140/90 Unspecified essential hypertension Iron deficiency anemia Iron deficiency anemia, unspecified [...] the patient have Health Care Power of Consulting Systems Engineer? No Healthcare Agents on File Name Relationship Healthcare Agent Relationship Communication Gus Rosenbaum Jr. Adult Child Health Care R epresentative (appointed verbally by patient or by statute hierarchy) Care Teams Database Marketing Specialist Relationship Specialty Start Date End Date Jasson Denney MD [address] [place] [address] [place] [address] PCP - General Family Medicine 03/22/16 documented as of this encounter
--- OUTSIDE RECORDS SUMMARY | 2023-12-22 05:51 | External Medical Summary | Summary of Care ---
Author Name Unknown Organization [facility] Address [address] [place] [facility] [place] [address] Phone [phone] Care Team Providers Care Director Medicare Sales Name Role Phone Jasson Denney MD Primary Care Provide r Reason for Visit * Reason Onset Date Comments Follow Up 09/09/2023 Encounter Details Date Type Department Care Team (Late st Contact Info) Description 09/09/2023 Telephone Hematology/Oncology [facility] [place] 200 [facility] [phone] Abena Xiong CRNP 400 [place] [address] Follow Up Allergies Active Allergy Reactions [...] every night at bedtime. 0 07/12/2019 Active Phenylephrine-[place] Butter 0.25-88.44 % Rectal Suppository Administer into the rectum as needed for Hemorrhoids. 0 Active Nitroglycerin 0.4 MG Sublingual Tablet Sublingual (Nitrostat) Place 1 Tablet under the tongue as needed. 0 11/10/2020 Active Isosorbide Mononitrate ER 30 MG Oral Tablet Extended Release 24 Hour (Imdur)Indications: Coronary artery disease involving [place] coronary artery of [place] heart without angina pectoris TAKE 1 TABLET [...] stent 11/15/2020 Coronary artery disease invo lving [place] heart without angina pectoris 11/15/2020 Cardiac murmur [...] mRNA, LNP-s, No Pre serve, 2-Dose Series ([employer]) 08/11/2020,07/21/2020 COVID-19, LNP-s, No Preserve , Dusty-sucrose, Ages 12+ ([employer]) 02/05/2022,08/07/2021 COVID-19, MRNA-LNP, 23-24, P F, 30 MCG/0.3 mL, 12 YRS AND ABOVE, IM ([employer]-Comirnat) 05/13/2023 Covid-19, Mrna, Lnp-s, Pf, B ivalent, 30 Mcg, IM, 12 yrs and above ([employer]) 06/11/2022 Pneumococcal Conjugate Vacc, 13 Valent (Prevnar) [...] note below * Telephone Encounter - Ty Alnoso RN - 09/09/2023 9:48 AM EDT Called patient, she is aware. Scheduling- please add lab appt on 09/29 @ [facility] "Ferritin, Iron, CBCD" Dr. Parrish- [...] PM EDT Office Visit Interventional Pain Center, [facility] [address] [place] [address] Sarah Richardson PA-C [address] [place] [address] 09/30/2023 10:00 AM EDT Laboratory Laboratory [address] [place] [phone] [address] [place] [address] 10/13/2023 2:20 PM EDT Office Visit Nephrology [address] [place] [address] Maritza Parrish MD 200 [facility] [place] [address] 10/16/2023 3:30 PM EDT Office Visit Hematology/Oncolog y [facility] [place] 200 [facility] [place] [phone] Abena Xiong CRNP [address] [place] [address] 11/25/2023 2:30 PM EDT Hospital Encounter ENDO [facility], Endoscopy Room [facility] [address] [place], [place] [phone] Nitin Austin, DO [address] [place] [address] 11/25/2023 2:30 PM EDT - 11/25/2023 3:00 PM EDT Surgery ENDO [facility], Endoscopy Room [facility] [address] [place] [phone] Nitin Austin, DO [address] [place] [address] COLONOSCOPY FLEXIBLE PROXIMAL DIAGNOSTIC 02/10/2024 1:00 PM EDT Office Visit [address] [place] [phone] Kahlil Mooney CRNP [address] [place] [address] [place] [address] 04/05/2024 1:20 PM EDT Office Visit Dermatology [address] [place] [address] Melanie Frank PA-C [address] [place] [address] [place] [address] 08/17/2024 1:40 PM EST Office Visit [address] [place] [phone] Jasson Denney MD [address] [place] [address] [place] [address] Scheduled Procedures Name Priority Associated Diagnoses Date/Ti [...] COPD 08/12/2024 08/12/2023 CKD HGB USE SMARTSET 83577 08/31/202408/31, 09/01/2023, 07/17/2023, Additional history exists CKD PHOS USE SMARTSET 17341 08/31/202408/14, 07/25/2022, 01/10/2022, Additional history exists DXA [...] this encounter Medical Devices Implanted Type Area Pole Tester Device Identifier Shelf Expiration Date Model / Serial / Lot [place] Excluder Aaa Endoprothesis System-07/07/2019 Implanted:07/07/19 20 (Quantity not on file) Graft Description:Multiple implant s from system on same day [id number] Cordis Bx Velocity Cardiac Stent-06/02/2002 Implanted:06/02/20 02 (Quantity not on file) Stent CORDIS LEXA BX VELOCITY [id number] / / [id number] Cordis Bx Velocity Cardiac Stent-01/03/2003 Implanted:01/04/20 03 (Quantity not on file) Stent CORDIS LEXA VELOCITY [id number] / / [id number] documented as of this encounter Advance Directives [...] the patient have Health Care Power of Ice Cream Chef? No Healthcare Agents on File Name Relationship Healthcare Agent Relationship Communication Gus Rosenbaum Jr. Adult Child Health Care R epresentative (appointed verbally by patient or by statute hierarchy) Care Teams Director Medicare Sales Relationship Specialty Start Date End Date Jasson Denney MD [address] [place] [address] [place] [address] PCP - General Family Medicine 03/22/16 documented as of this encounter
--- OUTSIDE RECORDS SUMMARY | 2023-12-22 05:51 | External Medical Summary | Summary of Care ---
Author Name Unknown Organization [facility] [address] [facility] [facility] [address] Phone [phone] Care Team Providers Care Librarian Special Collections Name Role Phone Jasson Denney MD Primary Care Provide r Reason for Visit * Reason Comments eRx-Medication Refill Encounter Details Date Type Department Care Team (Late st Contact Info) Description 08/31/2023 Refill Family Medicine [address] [phone] Jasson Denney MD [address] [place] [address] [place] [id number] Moderate episode of recurrent major depressive disorder (HCC); Chronic bilateral low back pain without sciatica Allergies Active Allergy Reactions Criticality Noted Date [...] 24 Hour (Imdur)Indication s:Coronary artery disease involving lower [place] coronary artery [...] 06/19/2023 Active Ezetimibe 10 MG Oral Tablet (Zetia)Indication [...] EVERY DAY 90 Capsule 1 09/01/2023 Active Enalapril Maleate 10 MG Oral Tablet (Vasotec) TAKE 2 TABLETS BY MOUTH EVERY DAY 180 Tablet 1 01/20/2023 4 Discontinued DULoxetine HCl 30 MG Oral Capsule Delayed Release Particles (Cymbalta)Indicat ions:Moderate episode of recurrent major depressive disorder (HCC),Chronic bilateral low back pain without sciatica TAKE 1 CAPSULE BY MOUTH EVERY DAY 90 Capsule 1 01/31/2023 4 Discontinued documented as of this encounter [...] mRNA, LNP-s, No Pre serve, 2-Dose Series ([employer]) 08/11/2020,07/21/2020 COVID-19, LNP-s, No Preserve , Dusty-sucrose, Ages 12+ ([employer]) 02/05/2022,08/07/2021 COVID-19, MRNA-LNP, 23-24, P F, 30 MCG/0.3 mL, 12 YRS AND ABOVE, IM ([employer]-Comirnaty) 05/13/2023 Covid-19, Mrna, Lnp-s, Pf, B ivalent, 30 Mcg, IM, 12 yrs and above ([employer]) 06/11/2022 Pneumococcal Conjugate Vacc, 13 Valent (Prevnar) [...] encounter Miscellaneous Notes * Telephone Encounter - Viri Valverde, [facility] - 09/01/2023 4:56 PM EDT Signed Prescriptions: Disp Refills Enalapril Maleate 10 MG Oral Tablet (Vasot*180 Ta*1 Sig: TAKE 2TABLETS BY MOUTH EVERY DAYAuthorizing Provider: JASSON DENNEY User: VIRI VALVERDE DULoxetine HCl 30 MG Oral Capsule Delayed *90 Cap*1 Sig: TAKE 1 CAPSULE BY MOUTH EVERY DA YAuthorizing Provider: JASSON DENNEY User: VIRI VALVERDE documented in this encounter Plan of Treatment Upcoming Encounters Date Type Department Care Team (Latest Contact Info) Description 09/24/2023 2:30 PM EDT Office Visit [facility]ventional [facility], [facility] [place] [address] Sarah Richardson PA-C [address] [place] [address] 10/13/2023 2:00 PM EDT Laboratory Laboratory [address] [place] [phone] [place] [address] 10/13/2023 2:20 PM EDT Office Visit Nephrology [address] [place] [address] Maritza Parrish MD [address] [facility] [place], [place] [address] 10/16/2023 3:30 PM EDT Office Visit Hematology/Oncolog y [facility] [place] [address] [facility] [place] [phone] Abena Xiong CRNP [address] [facility] [place] [address] 11/25/2023 2:30 PM EDT Hospital Encounter ENDO [facility], Endoscopy Room [facility] [address] [place], [place] [phone] Nitin Austin, DO [address] [place] [address] 11/25/2023 2:30 PM EDT - 11/25/2023 3:00 PM EDT Surgery ENDO [facility], Endoscopy Room [facility] [address] [place] [phone] Nitin Austin, DO [address] [place] [address] COLONOSCOPY FLEXIBLE PROXIMAL DIAGNOSTIC 02/10/2024 1:00 PM EDT [address] [phone] Kahlil Mooney CRNP [address] [place] [address] [place] [address] 04/05/2024 1:20 PM EDT Office Visit Dermatology [address] [place] [address] Melanie Frank PA-C [address] [place] [address] [place] [address] 08/17/2024 1:40 PM EST Office Visit [address] [place] [phone] Jasson Denney MD [address] [place] [address] [place] [address] Scheduled Procedures Name Priority Associated Diagnoses Date/Ti me COLONOSCOPY FLEXIBLE PROXIMAL DIAGNOSTIC Iron deficiency anemia 11/25/2023 2:30 PM EDT Health Maintenance Due Date Last Done Comments Alpha-1 Antitrypsin 1958 DTaP,Tdap,and Td Vaccines (1 - Tdap) 1959 Zoster Vaccines (1 of 2) 1990 *COPD SEVERITY VERIFIED BY PFT 01/02/2018 Depression Screening 08/07/2022 08/07/2021 CKD PHOS USE SMARTSET 45933 07/25/2023 020 02/2023, 01/10/2022, 01/11/2021, Additional history exists GFR 01/15/2024 07/17/2023, 06/16, 03/20/2023, Additional history exists HbA1c 03/20/2024 03/20/2023, 10/2021, 11/01/2020, Additional history exists Albumin/Creatinine Ratio 06/30/2024 024, 07/25/2022, 08/07/2021, Additional history exists O2 ASSESSMENT COMPLETED IN PAST YEAR FOR COPD 08/12/2024 08/12/2023 CKD HGB USE SMARTSET 81375 08/31/202408/31, 09/01/2023, 07/17/2023, Additional history exists DXA Scan 05/31/2026 05/31/2019, [...] this encounter Medical Devices Implanted Type Area Embroidery Machine Operator Device Identifier Shelf Expiration Date Model / Serial / Lot [place] Excluder Aaa Endoprothesis System-07/07/2019 Implanted:07/07/19 20 (Quantity not on file) Graft Description:Multiple implant s from system on same day [id number] Cordis Bx Velocity Cardiac Stent-06/02/2002 Implanted:06/02/20 02 (Quantity not on file) Stent CORDIS LEXA BX VELOCITY [id number] / / [id number] Cordis Bx Velocity Cardiac Stent-01/03/2003 Implanted:01/04/20 03 (Quantity not on file) Stent CORDIS [place]EXA VELOCITY [id number] / / [id number] documented as of this encounter Visit Diagnoses Diagnosis Moderate episode of recurrent major depressive disorder (HCC) Chronic bilateral low back pain without sciatica Iron deficiency anemia Iron deficiency anemia, unspecified [...] the patient have Health Care Power of Truck Repair Supervisor? No Healthcare Agents on File Name Relationship Healthcare Agent Relationship Communication Gus Rosenbaum Jr. Adult Child Health Care R epresentative (appointed verbally by patient or by statute hierarchy) Care Teams Librarian Special Collections Relationship Specialty Start Date End Date Jasson Denney MD [address] [place] [address] [place] [phone] PCP - General Family Medicine 03/22/16 documented as of this encounter
--- OUTSIDE RECORDS SUMMARY | 2023-12-22 05:51 | External Medical Summary | Summary of Care ---
Author Name Unknown Organization [facility] Address [address] [place] [facility] [place] [place] [address] Phone [phone] Care Team Providers Care Android Developer Name Role Phone Jasson Denney MD Primary Care Provide r Reason for Visit * Reason Onset Date Comments Follow Up 09/09/2023 Encounter Details Date Type Department Care Team (Late st Contact Info) Description 09/09/2023 Telephone Hematology/Oncology [facility] [place] [facility] [phone] Abena Xiong CRNP [address] [place] [address] Follow Up Allergies Active Allergy Reactions [...] every night at bedtime. 0 07/12/2019 Active Phenylephrine-[place] Butter 0.25-88.44 % Rectal Suppository Administer into the rectum as needed for Hemorrhoids. 0 Active Nitroglycerin 0.4 MG Sublingual Tablet Sublingual (Nitrostat) Place 1 Tablet under the tongue as needed. 0 11/10/2020 Active Isosorbide Mononitrate ER 30 MG Oral Tablet Extended Release 24 Hour (Imdur)Indications: Coronary artery disease involving [place]ree coronary artery of [place]cree heart without angina pectoris TAKE 1 TABLET [...] stent 11/15/2020 Coronary artery disease invo lving [place]cree heart without angina pectoris 11/15/2020 Cardiac murmur [...] mRNA, LNP-s, No Pre serve, 2-Dose Series ([employer]) 08/11/2020,07/21/2020 COVID-19, LNP-s, No Preserve , Dusty-sucrose, Ages 12+ ([employer]) 02/05/2022,08/07/2021 COVID-19, MRNA-LNP, 23-24, P F, 30 MCG/0.3 mL, 12 YRS AND ABOVE, IM ([employer]Comirnat) 05/13/2023 Covid-19, Mrna, Lnp-s, Pf, B ivalent, 30 Mcg, IM, 12 yrs and above ([employer]) 06/11/2022 Pneumococcal Conjugate Vacc, 13 Valent (Prevnar) [...] please add lab appt on 09/29 @ [facility] "Ferritin, Iron, CBCD" Dr. Parrish- [...] around meal time to helpdecrease stomach discomfort. AbenaLia ellermoisés, when would you like her to re-check labs? She has been taking Vitron C daily x 1 week. documented in this encounter Plan of Treatment Upcoming Encounters Date Type Department Care Team (Latest Contact Info) Description 09/24/2023 2:30 PM EDT Office Visit Interventional Pain Center, [facility] [address] [place] [address] Sarah Richardson PA-C [address] [place] [address] 10/13/2023 2:00 PM EDT Laboratory Laboratory [address] [place] [phone] [facility] [address] [place] [address] 10/13/2023 2:20 PM EDT Office Visit Nephrology [address] [place] [address] Maritza Parrish MD [address] [place] [address] 10/16/2023 3:30 PM EDT Office Visit Hematology/Oncolog y [facility] [address] [place] [phone] Abena Xiong CRNP [address] [place] [address] 11/25/2023 2:30 PM EDT Hospital Encounter ENDO [facility], Endoscopy Room [facility] [address] [place] [phone] Nitin Austin DO [address] [place] [address] 11/25/2023 2:30 PM EDT - 11/25/2023 3:00 PM EDT Surgery [facility]O [facility], Endoscopy Room [facility] [address] [place] [phone] Nitin Austin DO [address] [place] [address] COLONOSCOPY FLEXIBLE PROXIMAL DIAGNOSTIC 02/10/2024 1:00 PM EDT [address] [phone] Kahlil Mooney CRNP [address] [place] [address] [place] [address] 04/05/2024 1:20 PM EDT Office Visit Dermatology [address] [place] [address] Melanie Frank PA-C [address] [place] [address] [place] [address] 08/17/2024 1:40 PM EST Office Visit [address] [place] [phone] Jasson Denney MD [address] [place] [address] [place] [address] Scheduled Procedures Name Priority Associated Diagnoses Date/Ti me COLONOSCOPY FLEXIBLE PROXIMAL DIAGNOSTIC Iron deficiency anemia 11/25/2023 2:30 PM EDT Health Maintenance Due Date Last Done Comments Alpha-1 Antitrypsin 1958 DTaP,Tdap,and Td Vaccines (1 - Tdap) 1959 Zoster Vaccines (1 of 2) 1990 *COPD SEVERITY VERIFIED BY PFT 01/02/2018 Depression Screening 08/07/2022 08/07/2021 GFR 01/15/2024 07/17/2023, 06/16, 03/20/2023, Additional history exists HbA1c 03/20/2024 03/20/2023, 10/0 10/2021, 11/01/2020, Additional history exists Albumin/Creatinine Ratio 06/30/2024 024, 07/25/2022, 08/07/2021, Additional history exists O2 ASSESSMENT COMPLETED IN PAST YEAR FOR COPD 08/12/2024 08/12/2023 CKD HGB USE SMARTSET 77016 08/31/202408/31, 09/01/2023, 07/17/2023, Additional history exists CKD PHOS USE SMARTSET 07721 08/31/202408/14, 07/25/2022, 01/10/2022, Additional history exists DXA [...] this encounter Medical Devices Implanted Type Area Rate Reviewer Device Identifier Shelf Expiration Date Model / Serial / Lot [place] Excluder Aaa Endoprothesis System-07/07/2019 Implanted:07/07/19 20 (Quantity not on file) Graft Description:Multiple implant s from system on same day [id number] Cordis Bx Velocity Cardiac Stent-06/02/2002 Implanted:06/02/20 02 (Quantity not on file) Stent CORDIS LEXA BX VELOCITY [id number] / / [id number] Cordis Bx Velocity Cardiac Stent-01/03/2003 Implanted:01/04/20 03 (Quantity not on file) Stent CORDIS LEXA VELOCITY [id number] / / [id number] documented as of this encounter Advance Directives [...] the patient have Health Care Power of Shingle Catcher? No Healthcare Agents on File Name Relationship Healthcare Agent Relationship Communication Gus Rosenbaum Jr. Adult Child Health Care R epresentative (appointed verbally by patient or by statute hierarchy) Care Teams Android Developer Relationship Specialty Start Date End Date Jasson Denney MD [address] [place] [address] [place] [address] PCP - General Family Medicine 03/22/16 documented as of this encounter
--- OUTSIDE RECORDS SUMMARY | 2023-12-22 05:52 | External Medical Summary | Summary of Care ---
Author Name Unknown Organization [facility] Address [address] [place] [address] Phone [phone] Care Team Providers Care Hardware Technician Name Role Phone Jasson Denney MD Primary Care Provide r Reason for Referral * Ancillary Services (Within 10 days (routine)) - Authorized Specialty Diagnoses / Procedures Referred By Contchristopher t Referred To Contact Gastroenterology Diagnoses Iron deficiency anemia, unspecified iron deficiency anemia type Jairo Flowers CRNP [address] [place] [address] Referral ID Status Reason Start Date Expiration Date Visits Requested Visits Authorized [id number] Authorized Ancillary Services Required 07/21/2023 999 999 Question Answer Referral Priority Within 10 days (routine) Where should this appointment be scheduled? Efraín Comments ALERT: Do not order for pediatric patients (18 years or younger). Cancel off screen and order PEDS GASTROENTEROLOGY CONSULT (Type: 1 visit only-Evaluate and Treat) The following Pt. Instructions are available: - Gastro Colonoscopy Prep Instructions [[id number]] - Gastro Colonoscopy Prep Instructions (Polish Version) [[id number]] Go to the Pt. Instructions section within the Visit Navigator to access. Colonoscopy ASGE Guidelines: Iron deficiency anemia ADDITIONAL INFORMATION 1. Is the patient on Coumadin? No 2. Is the patient on Pradaxa? No Reason for Visit * Reason Onset Date Comments Test Results Lab 07/20/2023 Encounter Details Date Type Department Care Team ([facility] st Contact Info) Description 07/20/2023 Telephone Hematology/Oncology [place] [address] [place], [place] [id number] [facility] [address] [facility] [address] Test Results Lab Allergies Active Allergy Reactions Criticality Noted Date Comments Adhesive Tape 04/11/2006 Latex 06/06/2022 Other reaction(s): rash/itchy documented as of this encounter (statuses as of 07/22/2023) Medications Medication Sig Dispensed Refills Start Date [...] 24 Hour (Imdur)Indications :Coronary artery disease involving otoe-missouria coronary artery of otoe-missouria heart without angina pectoris TAKE 1 TABLET [...] 06/19/2023 Active Ezetimibe 10 MG Oral Tablet (Zetia)Indications :Dyslipidemia, goal to be determined TAKE 1 TABLET BY MOUTH DAILY 90 Tablet 0 06/17/2023 Active Iron-Vitamin C 65-125 MG Oral Tablet (Vitron C)Indications:Iron deficiency anemia, unspecified iron deficiency anemia type Take 1 Tablet by mouth in the morning. 90 Tablet 1 07/21/2023 Active documented as of this encounter (statuses as of 07/22/2023) Active Problems Problem Noted Date Diagnosed Date Encounter for antineoplastic chemotherapy 2022 Malignant neoplasm of left b reast in female, estrogen receptor positive 06/28/2022 Postherpetic neuralgia 06/28/2022 Hiatal hernia 08/07/2021 Schatzki's ring 08/07/2021 S/P angioplasty with stent 11/15/2020 Coronary artery disease invo lving otoe-missouria heart without angina pectoris 11/15/2020 Cardiac murmur [...] as of this encounter (statuses as of 07/22/2023) Resolved Problems Problem Noted Date Diagnosed Date [...] as of this encounter (statuses as of 07/22/2023) Immunizations Name Administration Dates Next Due COVID-19 mRNA, LNP-s, No Pre serve, 2-Dose Series ([facility]) 08/11/2020,07/21/2020 COVID-19, LNP-s, No Preserve , Dusty-sucrose, Ages 12+ ([facility]) 02/05/2022,08/07/2021 COVID-19, MRNA-LNP, 23-24, P F, 30 MCG/0.3 mL, 12 YRS AND ABOVE, IM ([facility]) 05/13/2023 Covid-19, Mrna, Lnp-s, Pf, B ivalent, 30 Mcg, IM, 12 yrs and above ([facility]) 06/11/2022 Pneumococcal Conjugate Vacc, 13 Valent (Prevnar) [...] Telephone Encounter - Sofía Ovalle OSA - 07/22/2023 9:20 AM EST Spoke to pt, zoe'd colon 11/25/23. * Telephone Encounter - Leni Salazar OSA - 07/21/2023 10:51 AM EST Called and scheduled labs for 6wks pt is aware Gastro- Please contact pt to schedule referral for a colonoscopy * Addendum Note - Jairo Flowers CRNP - 07/21/2023 10:45 AM ESTAddended by: JAIRO FLOWERS on: 07/21/2023 10:45 AM Modules accepted: Orders * Telephone Encounter - Jairo Flowers CRNP - 07/21/2023 10:44 AM EST Prescription sent as requested. Order placed to repeat CBCd and iron studies in six weeks. Referralplaced for colonoscopy. * Telephone Encounter - Vonnie Herrera RN - 07/21/2023 9:35 AM EST Contacted [facility]. [facility] would like to proceed with the Vitron C. Would like the prescription sent to [facility] in [place]. Aware she cannot take her pantoprazole and Calcium supplements at the same time. Aware of the GI symptoms that can occur and voiced she will reach out should any of those symptoms occur. States she struggles with constipation at baseline. Also aware of the recommended colonoscopy in which she was agreeable to. * Telephone Encounter - Jairo Flowers CRNP - 07/20/2023 8:14 PM EST Results for orders placed or performed in visit on 07/17/23 COMPREHENSIVE METABOLIC PANEL Result Value Ref Range BUN 23 (H) 6 - 20 mg/dL Creatinine 1.4 (H) 0.5 - 1.0 mg/dL Estimated Glomerular Filtration Rate 38 (L) >=60 mL/min Sodium 142 135 - 146 mmol/L Potassium 5.0 3.5 - 5.1 mmol/L Chloride 107 98 - 107 mmol/L CO2 23 22 - 32 mmol/L Anion Gap 12 7 - 15 mmol/L Glucose 89 70 - 120 mg/dL Albumin 4.0 3.8 - 5.0 g/dL AST 14 10 - 35 U/L Alkaline Phosphatase 82 35 - 130 U/L Bilirubin, Total <0.2 <=1.2 mg/dL Calcium 10.2 8.4 - 10.2 mg/dL Protein 6.9 6.0 - 8.3 g/dL ALT 7 (L) 10 - 35 U/L FOLIC ACID Result Value Ref Range Folic Acid >20.0 >4.5 ng/mL LD Result Value Ref Range LD 167 <=250 U/L RETICULOCYTE PANEL Result Value Ref Range Reticulocyte Percent 1.90 0.80 - 1.90 % Absolute Reticulocyte 62.7 31.3 - 100.1 K/uL Immature Reticuloctye Fraction 25.1 (H) 2.5 - 20.6 % Reticulocyte Hemoglobin 26.2 (L) 29.7 - 37.4 pg HAPTOGLOBIN Result Value Ref Range Haptoglobin 306 (H) 30 - 200 mg/dL FERRITIN Result Value Ref Range Ferritin 24 13 - 150 ng/mL IRON SCREEN, INCLUDING TIBC Result Value Ref Range Iron 36 33 - 151 ug/dL Iron Binding Capacity 352 250 - 425 ug/dL Transferrin Saturation Percent 10 (L) 15 - 55 % CBC Result Value Ref Range WBC 8.90 4.00 - 10.80 K/uL RBC 3.40 3.85 - 5.15 M/uL HGB 9.2 (L) 12.0 - 15.3 g/dL HCT 30.4 (L) 36.0 - 45.2 % MCV 89.4 81.5 - 97.5 fL MCH 27.1 27.0 - 34.0 pg MCHC 30.3 32.0 - 36.0 g/dL RDW 15.3 11.5 - 15.5 % PLT 285 140 - 400 K/uL MPV 9.5 6.6 - 11.1 fL DIFFERENTIAL, AUTOMATED Result Value Ref Range WBC 8.90 4.00 - 10.80 K/uL Neutrophils % 76.0 (H) 40.0 - 75.0 % Lymphocytes % 11.1 (L) 18.0 - 42.0 % Monocytes % 9.9 1.0 - 11.0 % Eosinophils % 2.8 0.0 - 6.0 % Basophils % 0.2 0.0 - 2.0 % Absolute Neutrophils 6.76 1.80 - 7.70 K/uL Absolute Lymphocytes 0.99 (L) 1.00 - 4.80 K/ul Absolute Monocytes 0.88 0.00 - 1.10 K/uL Absolute Eosinophils 0.25 0.00 - 0.70 K/uL Absolute Basophils 0.02 0.00 - 0.20 K/uL Lab work consistent with iron deficiency anemia. Please follow up with patient. Please enquire if patient has ever taken an oral iron supplement. Would recommend starting with Vitron C one tablet daily and repeat lab work in six weeks. Please do not take at same time as pantoprazole or calcium supplement. Please review possible GI side effects with patient. If patient agreeable to starting oral iron supplement can send prescription and order repeat lab work. Also need to evaluate for cause of iron deficiency anemia. Would consider moving forward with colonoscopy. If patient agreeable will place referral. documented in this encounter Plan of Treatment Upcoming Encounters Date Type Department Care Team (Latest Contact Info) Description 07/24/2023 3:00 PM EST Office Visit Family [address] [place] [phone] Ruma Childers PA-C [address] [place] [address] [place] [address] 08/04/2023 1:00 PM EST Imaging Radiology [address] [facility] [place] [id number] 08/12/2023 1:40 PM EST Office Visit Family [address] [place] [phone] Jasson Denney MD [address] [place] [address] [place] [address] 09/01/2023 9:20 AM EDT Laboratory Laboratory [address] [place] [phone] [place] [address] 10/13/2023 2:00 PM EDT Laboratory Laboratory [address] [place] [phone] [place] [address] 10/13/2023 2:20 PM EDT Office Visit Nephrology [address] [place] [address] Maritza Parrish MD [address] [facility] [place] [address] 10/16/2023 3:30 PM EDT Office Visit [facility] [facility] [place] [address] [place] [address] Jairo Flowers CRNP [address] [place] [address] 11/25/2023 2:30 PM EDT Hospital Encounter ENDO [facility], Endoscopy Room [facility] [address] [place], [place] [phone] Nitin Austin, DO [address] [place] [address] 11/25/2023 2:30 PM EDT - 11/25/2023 3:00 PM EDT Surgery ENDO [facility], Endoscopy Room [facility] [address] [place] [phone] Nitin Austin, DO [address] [place], [place] [address] COLONOSCOPY FLEXIBLE PROXIMAL DIAGNOSTIC 04/05/2024 1:20 PM EDT Office Visit Dermatology [address] [place] [address] Melanie Frank PA-C [address] [place] [address] [place] [address] Scheduled Orders Name Type Priority Associated Diagnoses Orde r Schedule CBC WITH WBC DIFFERENTIAL Lab STAT Iron deficiency anemia, unspecified iron deficiency anemia type Every Month for 3 Occurrences starting 07/21/2023 until 01/19/2024 IRON SCREEN, INCLUDING TIBC Lab STAT Iron deficiency anemia, unspecified iron deficiency anemia type Every Month for 3 Occurrences starting 07/21/2023 until 01/19/2024 FERRITIN Lab STAT Iron deficiency anemia, unspecified iron deficiency anemia type Every Month for 3 Occurrences starting 07/21/2023 until 01/19/2024 Scheduled Procedures Name Priority Associated Diagnoses Date/Ti me COLONOSCOPY FLEXIBLE PROXIMAL DIAGNOSTIC Iron deficiency anemia 11/25/2023 2:30 PM EDT Scheduled Referrals Name Type Priority Associated Diagnoses Orde r Schedule COLONOSCOPY, GI REFERRAL OP Referral Within 10 days (routine) Iron deficiency anemia, unspecified iron deficiency anemia type Ordered: 07/21/2023 Health Maintenance Due Date Last Done Comments Alpha-1 Antitrypsin 1958 DTaP,Tdap,and Td Vaccines (1 - Tdap) 1959 Zoster Vaccines (1 of 2) 1990 *COPD SEVERITY VERIFIED BY PFT 01/02/2018 Depression Screening 08/07/2022 08/07/2021 CKD PHOS USE SMARTSET 50203 07/25/202302/2023, 01/10/2022, 01/11/2021, Additional history exists O2 ASSESSMENT COMPLETED IN PAST YEAR FOR COPD 08/15/2023 08/14/2022 GFR 01/15/2024 07/17/2023, 06/16, 03/20/2023, Additional history exists HbA1c 03/20/2024 03/20/2023, 10/2021, 11/01/2020, Additional history exists Albumin/Creatinine Ratio 06/30/2024 024, 07/25/2022, 08/07/2021, Additional history exists CKD HGB USE SMARTSET 04000 07/17/202407/17, 07/17/2023, 06/30/2023, Additional history exists DXA Scan 05/31/2026 05/31/2019, [...] this encounter Medical Devices Implanted Type Area Railroad Repairer Device Identifier Shelf Expiration Date Model / Serial / Lot [place] Excluder [employer]aa End[employer] System-07/07/2019 Implanted:07/07/19 20 (Quantity not on file) Graft Description:Multiple implant s from system on same day [id number] Cordis Bx Velocity Cardiac Stent-06/02/2002 Implanted:06/02/20 02 (Quantity not on file) Stent CORDIS LEXA BX VELOCITY [id number] / / [id number] Cordis Bx Velocity Cardiac Stent-01/03/2003 Implanted:01/04/20 03 (Quantity not on file) Stent CORDIS LEXA VELOCITY [id number] / / [id number] documented as of this encounter Visit Diagnoses [...] the patient have Health Care Power of Audiovisual Aids Technician? No Healthcare Agents on File Name Relationship Healthcare Agent Relationship Communication Gus Rosenbaum Jr. Adult Child Health Care R epresentative (appointed verbally by patient or by statute hierarchy) Care Teams Hardware Technician Relationship Specialty Start Date End Date Jasson Denney MD [address] [place] [address] [place] [address] PCP - General Family Medicine 03/22/16 documented as of this encounter
--- OUTSIDE RECORDS SUMMARY | 2023-12-22 05:52 | External Medical Summary | Summary of Care ---
Author Name Unknown Organization [facility] Address [address] [place] [address] Phone [phone] Care Team Providers Care Graduate Teaching Associate Name Role Phone Jasson Denney MD Primary Care Provide r Reason for Referral * Evaluate & Treat - Unlimited Visits (Within 10 days (routine)) - Authorized Specialty Diagnoses / Procedures Referred By Contac t Referred To Contact Pain Management / Pain Medicine Diagnoses DDD (degenerative disc disease), lumbar Jasson Denney MD [address] [place] [address] [place] [id number] Referral ID Status Reason Start Date Expiration Date Visits Requested Visits Authorized [id number] Authorized Specialty Services Required 08/12/2023 999 999 Question Answer Referral Priority Within 10 days (routine) Where should this appointment be scheduled? [facility] Reason for referral? Interventional Pain Management - (Injection) What condition is the patient being referred for? Lumbar Radiculopathy What is the preferred location to have this test performed? [facility] Comments Patient Name: Afua Rosenbaum Date of : 1940 Department Phone Number: MRI or CT (if unable to have a MRI) is recommended if any of the following apply: 1. Patient has neck or back pain with radiation to extremities. A previous MRI will be accepted if symptoms unchanged since prior MRI. 2. Spinal surgery since last MRI. If yes, order a MRI with and without contrast. 3. Hx or ongoing cancer treatment. Patient will need spine x-ray (Ap/Lat) for axial neck or back pain if not done previously. Fax No. [facility] [phone] or contact front desk specialist [phone] Fax No. [facility] [phone] or contact front desk specialist [phone] Fax No. 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; Prediabetes; Iron deficiency anemia, unspecified iron deficiency anemia type; COPD, mild (HCC); Moderate episode of recurrent major depressive disorder (HCC); Malignant neoplasm of left breast in female, estrogen receptor positive, unspecified site of breast (HCC); Stage 3b chronic kidney disease (HCC) Allergies Active Allergy Reactions Criticality Noted Date Comments Adhesive Tape 04/11/2006 Latex 06/06/2022 Other reaction(s): rash/itchy documented as of this encounter (statuses as of 08/12/2023) Medications Medication Sig Dispensed Refills Start Date [...] 24 Hour (Imdur)Indicatio ns:Coronary artery disease involving skull valley coronary artery [...] the morning. 90 Tablet 1 07/21/2023 Active Gabapentin 100 MG Oral Capsule (Neurontin)Indic ations:Chronic bilateral low back pain with bilateral sciatica Take 1 Capsule by mouth in the morning and 1 Capsule before bedtime. 180 Capsule 1 03/20/2023 4 Discontinued documented as of this encounter (statuses as of 08/12/2023) Active Problems Problem Noted Date Diagnosed Date [...] as of this encounter (statuses as of 08/12/2023) Resolved Problems Problem Noted Date Diagnosed Date [...] as of this encounter (statuses as of 08/12/2023) Immunizations Name Administration Dates Next Due COVID-19 mRNA, LNP-s, No Pre serve, 2-Dose Series (VertiFlex) 08/11/2020,07/21/2020 COVID-19, LNP-s, No Preserve , Dusty-sucrose, Ages 12+ (Pfizer) 02/05/2022,08/07/2021 COVID-19, MRNA-LNP, 23-24, P F, 30 MCG/0.3 mL, 12 YRS AND ABOVE, IM ([employer]-Comirnat) 05/13/2023 Covid-19, Mrna, Lnp-s, Pf, B ivalent, [...] Sign Reading Time Taken Comments Blood Pressure 124/48 08/12/2023 1:31 PM EST Pulse 82 08/12/2023 1:31 PM EST Temperature 36.4 C (97.5 F) 08/12/2023 1:31 PM ES T Respiratory Rate - - Oxygen Saturation 98% 08/12/2023 1:31 PM EST Inhaled Oxygen Concentration - - Weight 73.5 kg (162 lb) 08/12/2023 1:31 PM EST Height - - Body Mass Index 26.15 03/20/2023 11:24 AM EDT documented in this encounter Progress Notes * Jasson Denney MD - 08/12/2023 1:44 PM EST Subjective: Afua Rosenbaum is a 83 year old female. Chief Complaint Patient presents with Re-Check HPI: Brief Clinical History Ms. Rosenbaum is an 83 year old woman last seen in Family Medicine 2 weeks ago (07-24-23). She is due for eval of Malignant neoplasm of left breast in female, estrogen receptor positive (HCC). Following with hematology/oncology for the breast cancer and also anemia. Was found to be mildly iron deficient. Started on Vitron-C but it really upsets her stomach and causes a lot of stomach pain.Stopped Protonix briefly because was not to take them together but is now taking the Protonix and from when she takes the iron. Is taking it every other day right now because of how much it hurts her stomach. Makes her nauseated. Not really constipated because she takes Colace and Miralax as needed. Is scheduled for colonoscopy 11/25/23 for evaluation of iron deficiency. Is following with nephrology for stage 3b CKD. Had NARDA when she had a AAA rupture that was repairedemergently and never fully recovered. Just had breast MRI that was fine. To have repeat in 1 year and to have her right mammogram yearly. Gets short of breath if she gets up to do things but no changes at this time. Has home PT. Started for her balance but now is for strengthening and she thinks there will be another week or two left. Was in ED 06/24/23 with vertigo and vomiting felt to be labyrinthitis. Had extensive work up that wasnegative. Trying to drink more water. Is doing better than she was. Has been checking blood pressure. It was 120/64. Her therapist checked it and was 102/50. Has ongoing low back pain. Hurts all the time. Has a hard time walking very far or standing. Usually has to sit down when trying to do the dishes. Stopped taking gabapentin because it did not help. Is interested in injections. Had lumbar x-ray in February 2023. 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 Phenylephrine-[place] Butter 0.25-88.44 % Rectal Suppository Administer into the rectum as needed forHemorrhoids. Nitroglycerin 0.4 MG Sublingual Tablet Sublingual (Nitrostat) Place 1 Tablet under the tongue as needed. Enalapril Maleate 10 MG Oral Tablet (Vasotec) TAKE 2 TABLETS BY MOUTH EVERY DAY 180 Tablet 1 DULoxetine HCl 30 MG Oral Capsule Delayed Release Particles (Cymbalta) TAKE 1 CAPSULE BY MOUTH EVERY DAY 90 Capsule 1 Clopidogrel Bisulfate 75 MG Oral [...] TABLET BY MOUTH DAILY 90 Tablet 0 Iron-Vitamin C 65-125 MG Oral Tablet (Vitron C) Take 1 Tablet by mouth in the morning. 90 Tablet 1 No current facility-administered medications for this visit. Past Medical History: Diagnosis Date Breast cancer [...] OPEN performed by Yasmine Austin MD at [facility] COLONOSCOPY 07/17/2008 patient states she had a polyp removed and internal hemorrhoids COLONOSCOPY, DIAGNOSTIC (RECTUM) 07/11/2015 hyperplastic polyp, diverticulosis/[facility] EGD, FLEXIBLE, DIAGNOSTIC 07/11/2015 reflux esophagitis, Schatzki ring, HH/[facility] IDENTIFY SENTINEL NODE, RADIOACTIVE TRACER Left 08/14/2022 INJECTION PROCEDURE FOR IDENTIFICATION SENTINEL NODE performed by Yasmine Austin MD at OR [facility] INSERTION OF LENS PROSTHESIS 05/03/2015 right INSERTION OF LENS PROSTHESIS 04/19/2015 left MASTECTOMY, SIMPLE, COMPLETE Left 08/14/2022 MASTECTOMY SIMPLE COMPLETE performed by Yasmine Austin MD at [facility] MISCELLANEOUS ORDER ([facility] ONLY) May 2002 and [...] Vaping Use Vaping Use: Never used Substance and Sexual Activity Alcohol use: Yes Comment: a glass or wine on holidays Drug use: No Sexual activity: Not on file Other Topics Concern Not on file Social History Narrative Not on file Social Determinants of Health Financial Resource Strain: Not on file Food Insecurity: No Food Insecurity (06/11/2022) Hunger Vital Sign Worried About Running Out of Food in the Last Year: Never true Ran Out of Food in the Last Year: Never true Transportation Needs: Not on file Physical Activity: Not on file Stress: Not on file Social Connections: Not on file Intimate Partner Violence: Not on file Housing Stability: Not on file Review of patient's allergies indicates: Allergen Reactions Adhesive Tape Latex Other reaction(s): rash/itchy Objective: BP 124/48 | Pulse 82 | Temp 36.4 C (97.5 F) (Tympanic) | Wt 73.5 kg (162 lb) | SpO2 98% | BMI 26.15 kg/m | BSA 1.85 m Physical Exam: General: alert, healthy, no distress, well nourished, and well developed Head: Normocephalic, No masses, lesions, tenderness or abnormalities Eye Exam: PERRLA, extraocular movements intact, conjunctiva are pink and non- injected, sclera clear Ears: External ears normal, Canals clear, TM's Normal Nose: no mucosal erythema, no mucosal edema, no purulent discharge Oropharynx: no exudate, no erythema, lips, buccal mucosa, and tongue normal, and mucous membranes are moist Neck: supple, no adenopathy, no bruits Heart: regular rate & rhythm, no gallops, and systolic murmur Lungs: chest symmetric with normal AP diameter, no chest deformities noted, no chest wall tenderness, lungs clear to auscultation Extremities: no edema, no clubbing, no cyanosis Neuro Exam: alert & oriented x 3 with fluent speech, no focal motor/sensory deficits Extensive ROS Constitutional (f/c/wt/vision/hearing): Negative Resp (cough/sob/lewis): see above hpi CV (cp/palp/fluttering/diaphoresis/lewis/pnd):see above hpi GI (n/v/d/hrtburn): see above hpi Endo (hair/cold or heat intol/ 3 p's): Negative Neuro (shaking/weak/fatigu/parasthesi/): Negative Skin (rash/easy bruis/xerosis): Negative Psy (si/hi/halluc/): Negative (nocturia/hesit/drib/sexual review): Negative Lymph (swollen glands/b sx's/: Negative ASSESSMENT: Hypertensive kidney disease with stage 3b chronic kidney disease (Primary)--blood pressure well controlled with atenolol 25 mg daily and enalapril 20 mg daily. Follows with nephrology for CKD. - PHOSPHORUS DDD (degenerative disc disease), lumbar--Lumbar x-ray showed severe DDD and scoliosis. Refer to pain medicine for possible injections. Gabapentin did not help. Continue duloxetine. 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 Follows with cardiology. Continue Plavix 75 mg daily, rosuvastatin 20 mg daily, and Zetia 10 mg daily. Prediabetes--stable. Monitor A1C yearly. Iron deficiency anemia, unspecified iron deficiency anemia type--continue Vitron-C. Iron and ferritin low normal and hemoglobin running low 9-range. Iron is causing a lot of GI upset and taking it every other day. Check follow-up labs as ordered and follow-up with hematology. Scheduled for colonoscopy 11/25/23. COPD, mild (HCC)--stable. Continue albuterol PRN. Moderate episode of recurrent major depressive disorder (HCC)--continue duloxetine 30 mg daily. Malignant neoplasm of left breast in female, estrogen receptor positive, unspecified site of breast(HCC)--s/p left mastectomy and chemotherapy. Follow-up with hematology and surgery as scheduled. Just had breast MRI without concerning findings. Stage 3b chronic kidney disease (HCC)--as above. Following with nephrology. Follow Up: Return in about 6 months (around 02/10/2024) for Clinic Visit. | For: Clinic Visit PLAN: Continue present medication(s): Referral(s) to: Pain medicine for consideration of lumbar injections. Schedule labs: Phosphorus when she has her labs repeated for hematology to follow-up iron deficiency. Patient education: Not tolerating Vitron-C daily due to stomach pain and constipation. OK to changeto every day and have repeat labs in 6 weeks as ordered. Follow-up with hematology as scheduled. Isalso scheduled for colonoscopy 11/25/23 to evaluate the iron deficiency. Also likely has some element of CKD contributing to low hemoglobin. Follow-up with nephrology as scheduled. Discussed referral for injections. Follow up: in 6 month(s). Jasson Denney MD documented in this encounter Nursing Notes * Pamela Gann LPN - 08/12/2023 1:31 PM EST 6 month recheck Discuss Iron pill - makes sick to stomach, so only taking every other day now. Back issues documented in this encounter Plan of Treatment Upcoming Encounters Date Type Department Care Team (Latest Contact Info) Description 09/01/2023 9:20 AM EDT Laboratory Laboratory [address] [place] [phone] [address] [place] [address] 09/24/2023 2:30 PM EDT Office Visit Interventional Pain Center, [facility] [address] [place] [address] Sarah Richardson PA-C [address] [place] [address] 10/13/2023 2:00 PM EDT Laboratory Laboratory [address] [place] [phone] [place] [address] 10/13/2023 2:20 PM EDT Office Visit Nephrology [address] [place] [address] Maritza Parrish MD [address] [place] [address] 10/16/2023 3:30 PM EDT Office Visit Hematology/Oncolog y [facility] [place] [address] [place] [phone] Abena Xiong CRNP [address] [place] [address] [place] [address] 11/25/2023 2:30 PM EDT Hospital Encounter ENDO OSS[facility], Endoscopy Room [facility] [address] [place] [phone] Nitin Austin, DO [address] [place] [address] 11/25/2023 2:30 PM EDT - 11/25/2023 3:00 PM EDT Surgery ENDO [facility], Endoscopy Room [facility] [address] [place] [id number] Nitin Austin, DO [address] [place] [address] COLONOSCOPY FLEXIBLE PROXIMAL DIAGNOSTIC 02/10/2024 1:00 PM EDT Office Visit [address] [place] [phone] Kahlil Mooney CRNP [address] [place] [address] [place] [address] 04/05/2024 1:20 PM EDT Office Visit Dermatology [address] [place] [address] Melanie Frank PA-C [address] [place] [address] [place] [address] 08/17/2024 1:40 PM EST Office Visit [address] [place] [phone] Jasson Denney MD [address] [place] [address] [place] [address] Scheduled Orders Name Type Priority Associated Diagnoses Orde r Schedule PHOSPHORUS Lab Routine Hypertensive kidney disease with stage 3b chronic kidney disease Ordered: 08/12/2023 Scheduled Procedures Name Priority Associated Diagnoses Date/Ti me COLONOSCOPY FLEXIBLE PROXIMAL DIAGNOSTIC Iron deficiency anemia 11/25/2023 2:30 PM EDT Scheduled Referrals Name Type Priority Associated Diagnoses Orde r Schedule PAIN MEDICINE REFERRAL OP Referral Within 10 days (routine) DDD (degenerative disc disease), lumbar Ordered: 08/12/2023 Health Maintenance Due Date Last Done Comments Alpha-1 Antitrypsin 1958 DTaP,Tdap,and Td Vaccines (1 - Tdap) 1959 Zoster Vaccines (1 of 2) 1990 *COPD SEVERITY VERIFIED BY PFT 01/02/2018 Depression Screening 08/07/2022 08/07/2021 CKD PHOS USE SMARTSET [id number] 07/25/2023 02/0 02/2023, 01/10/2022, 01/11/2021, Additional history exists O2 ASSESSMENT COMPLETED IN PAST YEAR FOR COPD 08/15/2023 08/14/2022 GFR 01/15/2024 07/17/2023, 06/16, 03/20/2023, Additional history exists HbA1c 03/20/2024 03/20/2023, 10/2021, 11/01/2020, Additional history exists Albumin/Creatinine Ratio 06/30/2024 024, 07/25/2022, 08/07/2021, Additional history exists CKD HGB USE SMARTSET 55501 07/17/202407/17, 07/17/2023, 06/30/2023, Additional history exists DXA [...] encounter Medical Devices Implanted Type Area Certified Coder Device Identifier Shelf Expiration Date Model / Serial / Lot Bureau Excluder Aaa Endoprothesis System-07/07/2019 Implanted:07/07/19 20 (Quantity not on file) Graft Description:Multiple implant s from system on same day [id number] Cordis Bx Velocity Cardiac Stent-06/02/2002 Implanted:06/02/20 02 (Quantity not on file) Stent CORDIS LEXA BX VELOCITY [id number] / / [id number] Cordis Bx Velocity Cardiac Stent-01/03/2003 Implanted:01/04/20 03 (Quantity not on file) Stent CORDIS LEXA VELOCITY [id number] / / [id number] documented as of this encounter Visit Diagnoses Diagnosis Hypertensive kidney disease with stage 3b chronic kidney disease- Primary DDD (degenerative disc disease), lumbar Degeneration of lumbar or lumbosacral intervertebral disc HTN, goal below 130/80 Unspecified essential hypertension 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 No Healthcare Agents on File Name Relationship Healthcare Agent Relationship Communication Gus Rosenbaum Jr. Adult Child Health Care R epresentative (appointed verbally by patient or by statute hierarchy) Care Teams Graduate Teaching Associate Relationship Specialty Start Date End Date Jasson Denney MD [address] [place] [address] [place] [id number] PCP - General Family Medicine 03/22/16 documented as of this encounter"
--- OUTSIDE RECORDS SUMMARY | 2023-12-22 05:52 | External Medical Summary | Summary of Care ---
Author Name Unknown Organization [facility] Address [address] [facility] [place] [address] Phone [phone] Care Team Providers Care Pattern Chain Maker Supervisor Name Role Phone Jasson Denney MD Primary Care Provide r Reason for Visit * Reason Onset Date Comments Appointment 08/02/2023 Encounter Details Date Type Department Care Team (Late st Contact Info) Description 08/02/2023 Telephone Radiology [address] [place] [address] Francesca Sands, RT (R) Appointment Allergies Active Allergy Reactions Criticality Noted Date Comments Adhesive Tape 04/11/2006 Latex 06/06/2022 Other reaction(s): rash/itchy documented as of this encounter (statuses as of 08/02/2023) Medications Medication Sig Dispensed Refills Start Date [...] 01/31/2023 Active Gabapentin 100 MG Oral Capsule (Neurontin)Indicat [...] 24 Hour (Imdur)Indications :Coronary artery disease involving [place] coronary artery of [place] heart without angina pectoris TAKE 1 TABLET [...] as of this encounter (statuses as of 08/02/2023) Active Problems Problem Noted Date Diagnosed Date Encounter for antineoplastic chemotherapy 2022 Malignant neoplasm of left b reast in female, estrogen receptor positive 06/28/2022 Postherpetic neuralgia 06/28/2022 Hiatal hernia 08/07/2021 Schatzki's ring 08/07/2021 S/P angioplasty with stent 11/15/2020 Coronary artery disease invo lving [place] heart without angina pectoris 11/15/2020 Cardiac murmur [...] as of this encounter (statuses as of 08/02/2023) Resolved Problems Problem Noted Date Diagnosed Date [...] as of this encounter (statuses as of 08/02/2023) Immunizations Name Administration Dates Next Due COVID-19 mRNA, LNP-s, No Pre serve, 2-Dose Series ([employer]) 08/11/2020,07/21/2020 COVID-19, LNP-s, No Preserve , Dusty-sucrose, Ages 12+ ([employer]) 02/05/2022,08/07/2021 COVID-19, MRNA-LNP, 23-24, P F, 30 MCG/0.3 mL, 12 YRS AND ABOVE, IM ([employer]) 05/13/2023 Covid-19, Mrna, Lnp-s, Pf, B ivalent, 30 Mcg, IM, 12 yrs and above ([employer]) 06/11/2022 Pneumococcal Conjugate Vacc, 13 Valent (Prevnar) [...] encounter Miscellaneous Notes * Telephone Encounter - Francesca Sands RT (R) - 08/02/2023 12:03 PM EST Name: Afua Rosenbaum Do you have any [...] an insulin pump or diabetic monitor? no RT Yrn Luo) documented in this encounter Plan of Treatment Upcoming Encounters Date Type Department Care Team (Latest Contact Info) Description 08/04/2023 1:00 PM EST Imaging Radiology [address], [place] 132 [facility] [place] [address] 08/12/2023 1:40 PM EST Office Visit Family Medicine [address] [place] [phone] Jasson Denney MD [address] [place] [address] [place] [address] 09/01/2023 9:20 AM EDT Laboratory Laboratory [address] [place] [phone] [place] [address] 10/13/2023 2:00 PM EDT Laboratory Laboratory [address] [place] [phone] [place] [address] 10/13/2023 2:20 PM EDT Office Visit Nephrology [address] [place] [address] Maritza Parrish MD [address] [place] [address] 10/16/2023 3:30 PM EDT Office Visit Hematology/Oncolog y [facility] [place] [address] [place] [address] Abena Xiong CRNP [address] [place] [address] 11/25/2023 2:30 PM EDT Hospital Encounter ENDO [facility], Endoscopy Room [facility] [address] [place] [phone] Nitin Austin, DO [address] [place] [address] 11/25/2023 2:30 PM EDT - 11/25/2023 3:00 PM EDT Surgery ENDO [facility], Endoscopy Room [facility] [address] [place] [phone] Nitin Austin, DO [address] [place] [address] COLONOSCOPY FLEXIBLE PROXIMAL DIAGNOSTIC 04/05/2024 1:20 PM EDT Office Visit Dermatology [address] [place] [address] Melanie Frank PA-C [address] [place] [address] [place] [address] Scheduled Procedures Name Priority Associated Diagnoses Date/Ti me COLONOSCOPY FLEXIBLE PROXIMAL DIAGNOSTIC Iron deficiency anemia 11/25/2023 2:30 PM EDT Health Maintenance Due Date Last Done Comments Alpha-1 Antitrypsin 1958 DTaP,Tdap,and Td Vaccines (1 - Tdap) 1959 Zoster Vaccines (1 of 2) 1990 *COPD SEVERITY VERIFIED BY PFT 01/02/2018 Depression Screening 08/07/2022 08/07/2021 CKD PHOS USE SMARTSET 94638 07/25/202302/2023, 01/10/2022, 01/11/2021, Additional history exists O2 ASSESSMENT COMPLETED IN PAST YEAR FOR COPD 08/15/2023 08/14/2022 GFR 01/15/2024 07/17/2023, 06/16, 03/20/2023, Additional history exists HbA1c 03/20/2024 03/20/2023, 10/2021, 11/01/2020, Additional history exists Albumin/Creatinine Ratio 06/30/20242 024, 07/25/2022, 08/07/2021, Additional history exists CKD HGB USE SMARTSET 77456 07/17/202407/17, 07/17/2023, 06/30/2023, Additional history exists DXA [...] this encounter Medical Devices Implanted Type Area Inventory Administrator Device Identifier Shelf Expiration Date Model / Serial / Lot [place] Excluder Aaa Endoprothesis System-07/07/2019 Implanted:07/07/19 20 (Quantity not on file) Graft Description:Multiple implant s from system on same day [id number] Cordis Bx Velocity Cardiac Stent-06/02/2002 Implanted:06/02/20 02 (Quantity not on file) Stent CORDIS LEXA BX VELOCITY [id number] / / [id number] Cordis Bx Velocity Cardiac Stent-01/03/2003 Implanted:01/04/20 03 (Quantity not on file) Stent CORDIS LEXA VELOCITY [id number] / / [id number] documented as of this encounter Advance Directives [...] the patient have Health Care Power of Business Computers Teacher? No Healthcare Agents on File Name Relationship Healthcare Agent Relationship Communication Gus Rosenbaum Jr. Adult Child Health Care R epresentative (appointed verbally by patient or by statute hierarchy) Care Teams Pattern Chain Maker Supervisor Relationship Specialty Start Date End Date Jasson Denney MD [address] [place] [address] [place] [phone] PCP - General Family Medicine 03/22/16 documented as of this encounter
--- OUTSIDE RECORDS SUMMARY | 2023-12-22 05:52 | External Medical Summary | Summary of Care ---
Author Name Unknown Organization [facility] [address] [facility] [address] Phone [phone] Care Team Providers Care Plant Breeder Name Role Phone Jasson Denney MD Primary Care Provide r Encounter Details Date Type Department Care Team (Late st Contact Info) Description 08/07/2023 Telephone General Surgery, [facility] [address] [place] [address] Yasmine Austin MD [address] [place] [address] Allergies Active Allergy Reactions Criticality Noted Date Comments Adhesive Tape 04/11/2006 Latex 06/06/2022 Other reaction(s): rash/itchy documented as of this encounter (statuses as of 08/07/2023) Medications Medication Sig Dispensed Refills Start Date [...] 24 Hour (Imdur)Indications :Coronary artery disease involving [place] coronary artery of [...] as of this encounter (statuses as of 08/07/2023) Active Problems Problem Noted Date Diagnosed Date Encounter for antineoplastic chemotherapy 2022 Malignant neoplasm of left b reast in female, estrogen receptor positive 06/28/2022 Postherpetic neuralgia 06/28/2022 Hiatal hernia 08/07/2021 Schatzki's ring 08/07/2021 S/P angioplasty with stent 11/15/2020 Coronary artery disease invo lving [place] heart without angina pectoris 11/15/2020 Cardiac [...] as of this encounter (statuses as of 08/07/2023) Resolved Problems Problem Noted Date Diagnosed Date [...] as of this encounter (statuses as of 08/07/2023) Immunizations Name Administration Dates Next Due COVID-19 mRNA, LNP-s, No Pre serve, 2-Dose Series ([employer]) 08/11/2020,07/21/2020 COVID-19, LNP-s, No Preserve , Dusty-sucrose, Ages 12+ (Pfizer) 02/05/2022,08/07/2021 COVID-19, MRNA-LNP, 23-24, P F, 30 MCG/0.3 mL, 12 YRS AND ABOVE, IM ([employer]) 05/13/2023 Covid-19, Mrna, Lnp-s, Pf, B ivalent, 30 Mcg, IM, 12 yrs and above ([employer]) 06/11/2022 Pneumococcal Conjugate Vacc, 13 Valent (Prevnar) [...] Telephone Encounter - Sushila Gimenez LPN - 08/07/2023 1:56 PM EST Tried to call patient. No answer. * Telephone Encounter - Yasmine Austin MD - 08/07/2023 12:39 PM EST MRI scan looks OK. No answer at her number. Could you call her and read impression and recommendation below to her: MRI shows no changes, due for right mammogram in May. Thank you! Impression: Left: Prior mastectomy. No MRI evidence of recurrent malignancy. No lymphadenopathy. BI-RADS 2, benign finding. Right: No MRI evidence of malignancy. No lymphadenopathy. BI-RADS 2, benign finding. OVERALL BIRADS: 2, benign findings. Recommendation: Continue annual right mammogram due in May 2024 or sooner if warranted clinically. Bilateral screening breast MRI advised in 1 year. documented in this encounter Plan of Treatment Upcoming Encounters Date Type Department Care Team (Latest Contact Info) Description 08/12/2023 1:40 PM EST Office Visit Family Medicine [address] [place] [phone] Jasson Denney MD [address] [place] [address] [place] [address] 09/01/2023 9:20 AM EDT Laboratory Laboratory [address] [place] [phone] [place] [address] 10/13/2023 2:00 PM EDT Laboratory Laboratory [address] [place] [phone] [place] [address] 10/13/2023 2:20 PM EDT Office Visit Nephrology [address] [place] [address] Maritza Parrish MD [facility] [place] [address] 10/16/2023 3:30 PM EDT Office Visit Hematology/Oncolog y [facility] [place] [facility] [place] [phone] Abena Xiong CRNP [address] [place], [place] [address] [address] 11/25/2023 2:30 PM EDT Hospital Encounter ENDO [facility], Endoscopy Room [facility] [address] [place] [phone] Nitin Austin, DO [address] [place] [address] 11/25/2023 2:30 PM EDT - 11/25/2023 3:00 PM EDT [facility] [address] [place] [phone] Nitin Austin, DO [address] [place] [address] COLONOSCOPY FLEXIBLE PROXIMAL DIAGNOSTIC 04/05/2024 1:20 PM EDT Office Visit Dermatology [address] [place] [address] Melanie Frank PA-C [address] [place] [address] [place] [address] Scheduled Procedures Name Priority Associated Diagnoses Date/Ti me COLONOSCOPY FLEXIBLE PROXIMAL DIAGNOSTIC Iron deficiency anemia 11/25/2023 2:30 PM EDT Health Maintenance Due Date Last Done Comments Alpha-1 Antitrypsin 1958 DTaP,Tdap,and Td Vaccines (1 - Tdap) 1959 Zoster Vaccines (1 of 2) 1990 *COPD SEVERITY VERIFIED BY PFT 01/02/2018 Depression Screening 08/07/2022 08/07/2021 CKD PHOS USE SMARTSET 46041 07/25/202302/2023, 01/10/2022, 01/11/2021, Additional history exists O2 ASSESSMENT COMPLETED IN PAST YEAR FOR COPD 08/15/2023 08/14/2022 GFR 01/15/2024 07/17/2023, 06/16, 03/20/2023, Additional history exists HbA1c 03/20/2024 03/20/2023, 10/2021, 11/01/2020, Additional history exists Albumin/Creatinine Ratio 06/30/2024 024, 07/25/2022, 08/07/2021, Additional history exists CKD HGB USE SMARTSET 47700 07/17/202407/17, 07/17/2023, 06/30/2023, Additional history exists DXA [...] this encounter Medical Devices Implanted Type Area Client Solutions Manager Device Identifier Shelf Expiration Date Model / Serial / Lot [place] Excluder Aaa Endoprothesis System-07/07/2019 Implanted:07/07/19 20 (Quantity not on file) Graft Description:Multiple implant s from system on same day [id number] Cordis Bx Velocity Cardiac Stent-06/02/2002 Implanted:06/02/20 02 (Quantity not on file) Stent CORDIS LEXA BX VELOCITY [id number] / / [id number] Cordis Bx Velocity Cardiac Stent-01/03/2003 Implanted:01/04/20 03 (Quantity not on file) Stent CORDIS LEXA VELOCITY [id number] / / [id number] documented as of this encounter Advance Directives [...] the patient have Health Care Power of Photo Finish Photographer? No Healthcare Agents on File Name Relationship Healthcare Agent Relationship Communication Gus Rosenbaum Jr. Adult Child Health Care R epresentative (appointed verbally by patient or by statute hierarchy) Care Teams Plant Breeder Relationship Specialty Start Date End Date Jasson Denney MD [address] [place] [address] [place] [phone] PCP - General Family Medicine 03/22/16 documented as of this encounter
--- OUTSIDE RECORDS SUMMARY | 2023-12-22 05:52 | External Medical Summary | Summary of Care ---
Author Name Unknown Organization [facility] Address [address] [facility] [address] Phone [phone] Care Team Providers Care Tower Technician Name Role Phone Jasson Denney MD Primary Care Provide r Encounter Details Date Type Department Care Team (Late st Contact Info) Description 08/07/2023 Telephone General Surgery, [facility] [address] [place] [address] Yasmine Austin MD [address] [place] [address] Allergies Active Allergy Reactions Criticality Noted Date Comments Adhesive Tape 04/11/2006 Latex 06/06/2022 Other reaction(s): rash/itchy documented as of this encounter (statuses as of 08/11/2023) Medications Medication Sig Dispensed Refills Start Date [...] 24 Hour (Imdur)Indications :Coronary artery disease involving [place] coronary artery of [place] heart without angina pectoris TAKE 1 TABLET [...] as of this encounter (statuses as of 08/11/2023) Active Problems Problem Noted Date Diagnosed Date Encounter for antineoplastic chemotherapy 2022 Malignant neoplasm of left b reast in female, estrogen receptor positive 06/28/2022 Postherpetic neuralgia 06/28/2022 Hiatal hernia 08/07/2021 Schatzki's ring 08/07/2021 S/P angioplasty with stent 11/15/2020 Coronary artery disease invo lving [place] heart without angina pectoris 11/15/2020 Cardiac murmur [...] as of this encounter (statuses as of 08/11/2023) Resolved Problems Problem Noted Date Diagnosed Date [...] as of this encounter (statuses as of 08/11/2023) Immunizations Name Administration Dates Next Due COVID-19 mRNA, LNP-s, No Pre serve, 2-Dose Series ([employer]) 08/11/2020,07/21/2020 COVID-19, LNP-s, No Preserve , Dusty-sucrose, Ages 12+ (Pfizer) 02/05/2022,08/07/2021 COVID-19, MRNA-LNP, 23-24, P F, 30 MCG/0.3 mL, 12 YRS AND ABOVE, IM ([employer]) 05/13/2023 Covid-19, Mrna, Lnp-s, Pf, B ivalent, 30 Mcg, IM, 12 yrs and above ([employer]) 06/11/2022 Pneumococcal Conjugate Vacc, 13 Valent (Prevnar) [...] 1:40 PM EST Office Visit Family Medicine [address] [place] [phone] Jasson Denney MD [address] [place] [address] [place] [address] 09/01/2023 9:20 AM EDT Laboratory Laboratory [address] [place] [phone] [place] [address] 10/13/2023 2:00 PM EDT Laboratory Laboratory [address] [place] [phone] [place] [address] 10/13/2023 2:20 PM EDT Office Visit Nephrology [address] [place] [address] Maritza Parrish MD [address] [facility] [place] [address] 10/16/2023 3:30 PM EDT Office Visit Hematology/Oncolog y [facility] [place] [address] [facility] [place] [phone] Abena Xiong CRNP [address] [place], [place] [address] [address] 11/25/2023 2:30 PM EDT Hospital Encounter ENDO [facility], Endoscopy Room [facility] [address] [place] [phone] Nitin Austin, DO [address] [place] [address] 11/25/2023 2:30 PM EDT - 11/25/2023 3:00 PM EDT [facility] [address] [place] [phone] Nitin Austin, DO [address] [place] [address] COLONOSCOPY FLEXIBLE PROXIMAL DIAGNOSTIC 04/05/2024 1:20 PM EDT Office Visit Dermatology [address] [place] [address] Melanie Frank PA-C [address] [place] [address] [place] [address] Scheduled Procedures Name Priority Associated Diagnoses Date/Ti me COLONOSCOPY FLEXIBLE PROXIMAL DIAGNOSTIC Iron deficiency anemia 11/25/2023 2:30 PM EDT Health Maintenance Due Date Last Done Comments Alpha-1 Antitrypsin 1958 DTaP,Tdap,and Td Vaccines (1 - Tdap) 1959 Zoster Vaccines (1 of 2) 1990 *COPD SEVERITY VERIFIED BY PFT 01/02/2018 Depression Screening 08/07/2022 08/07/2021 CKD PHOS USE SMARTSET 97168 07/25/202302/2023, 01/10/2022, 01/11/2021, Additional history exists O2 ASSESSMENT COMPLETED IN PAST YEAR FOR COPD 08/15/2023 08/14/2022 GFR 01/15/2024 07/17/2023, 06/16, 03/20/2023, Additional history exists HbA1c 03/20/2024 03/20/2023, 10/2021, 11/01/2020, Additional history exists Albumin/Creatinine Ratio 06/30/2024 024, 07/25/2022, 08/07/2021, Additional history exists CKD HGB USE SMARTSET 72134 07/17/202407/17, 07/17/2023, 06/30/2023, Additional history exists DXA [...] this encounter Medical Devices Implanted Type Area Travel Journalist Device Identifier Shelf Expiration Date Model / Serial / Lot [place] Excluder Aaa Endoprothesis System-07/07/2019 Implanted:07/07/19 20 (Quantity not on file) Graft Description:Multiple implant s from system on same day [id number] Cordis Bx Velocity Cardiac Stent-06/02/2002 Implanted:06/02/20 02 (Quantity not on file) Stent CORDIS LEXA BX VELOCITY [id number] / / [id number] Cordis Bx Velocity Cardiac Stent-01/03/2003 Implanted:01/04/20 03 (Quantity not on file) Stent CORDIS LEXA VELOCITY [id number] / / [id number] documented as of this encounter Advance Directives [...] the patient have Health Care Power of Inspector Screen Printing? No Healthcare Agents on File Name Relationship Healthcare Agent Relationship Communication Gus Rosenbaum Jr. Adult Child Health Care R epresentative (appointed verbally by patient or by statute hierarchy) Care Teams Tower Technician Relationship Specialty Start Date End Date Jasson Denney MD [address] [place] [address] [place] [phone] PCP - General Family Medicine 03/22/16 documented as of this encounter
--- OUTSIDE RECORDS SUMMARY | 2023-12-22 05:52 | External Medical Summary | Summary of Care ---
Author Name Unknown Organization [facility] Address [address] [facility] [place] [address] Phone [phone] Care Team Providers Care Paper Bag Making Machinist Name Role Phone Jasson Denney MD Primary Care Provide r Reason for Visit * Reason Onset Date Comments Advice 08/07/2023 Encounter Details Date Type Department Care Team (Late st Contact Info) Description 08/07/2023 Telephone General Surgery, [facility] [address] [place] [address] Yasmine Austin MD [address] [place] [address] Advice Allergies Active Allergy Reactions Criticality Noted Date [...] 24 Hour (Imdur)Indications :Coronary artery disease involving [place] coronary artery of [place] heart without angina pectoris TAKE 1 TABLET [...] stent 11/15/2020 Coronary artery disease invo lving [place] heart without angina pectoris 11/15/2020 Cardiac murmur [...] mRNA, LNP-s, No Pre serve, 2-Dose Series ([employer]) 08/11/2020,07/21/2020 COVID-19, LNP-s, No Preserve , Dusty-sucrose, Ages 12+ (Pfizer) 02/05/2022,08/07/2021 COVID-19, MRNA-LNP, 23-24, P F, 30 MCG/0.3 mL, 12 YRS AND ABOVE, IM ([employer]) 05/13/2023 Covid-19, Mrna, Lnp-s, Pf, B ivalent, 30 Mcg, IM, 12 yrs and above ([employer]) 06/11/2022 Pneumococcal Conjugate Vacc, 13 Valent (Prevnar) [...] Telephone Encounter - Sushila Gimenez LPN - 08/11/2023 12:56 PM EST Called and told her the results. * Telephone Encounter - Sushila Gimenez LPN [...] PM EST Office Visit Family Medicine [address] [place] [phone] Jasson Denney MD [address] [place] [address] [place] [address] 09/01/2023 9:20 AM EDT Laboratory Laboratory [address] [place] [phone] [place] [address] 10/13/2023 2:00 PM EDT Laboratory Laboratory [address] [place] [phone] [place] [address] 10/13/2023 2:20 PM EDT Office Visit Nephrology [address] [place] [address] Maritza Parrish MD [address] [place] [address], [place] [address] 10/16/2023 3:30 PM EDT Office Visit Hematology/Oncolog y [facility] [place] [address] [place] [phone] Abena Xiong CRNP [address] [place] [address] 11/25/2023 2:30 PM EDT Hospital Encounter [facility], Endoscopy Room [facility] [address] [place] [phone] Nitin Austin, DO [address] [place] [address] 11/25/2023 2:30 PM EDT - 11/25/2023 3:00 PM EDT Surgery [facility], [facility] [address] [place] [phone] Nitin Austin, DO [address] [place] [address] COLONOSCOPY FLEXIBLE PROXIMAL DIAGNOSTIC 04/05/2024 1:20 PM EDT Office Visit Dermatology [address] [place] [address] Melanie Frank PA-C [address] [place] [address] [place] [address] Scheduled Procedures Name Priority Associated Diagnoses Date/Ti me COLONOSCOPY FLEXIBLE PROXIMAL DIAGNOSTIC Iron deficiency anemia 11/25/2023 2:30 PM EDT Health Maintenance Due Date Last Done Comments Alpha-1 Antitrypsin 1958 DTaP,Tdap,and Td Vaccines (1 - Tdap) 1959 Zoster Vaccines (1 of 2) 1990 *COPD SEVERITY VERIFIED BY PFT 01/02/2018 Depression Screening 08/07/2022 08/07/2021 CKD PHOS USE SMARTSET 88700 07/25/2023 02/0 02/2023, 01/10/2022, 01/11/2021, Additional history exists O2 ASSESSMENT COMPLETED IN PAST YEAR FOR COPD 08/15/2023 08/14/2022 GFR 01/15/2024 07/17/2023, 06/16, 03/20/2023, Additional history exists HbA1c 03/20/2024 03/20/2023, 10/2021, 11/01/2020, Additional history exists Albumin/Creatinine Ratio 06/30/2024 024, 07/25/2022, 08/07/2021, Additional history exists CKD HGB USE SMARTSET 91592 07/17/202407/17, 07/17/2023, 06/30/2023, Additional history exists DXA [...] this encounter Medical Devices Implanted Type Area Mental Health Nurse Practitioner Device Identifier Shelf Expiration Date Model / Serial / Lot [place] Excluder Aaa Endoprothesis System-07/07/2019 Implanted:07/07/19 20 (Quantity not on file) Graft Description:Multiple implant s from system on same day [id number] Cordis Bx Velocity Cardiac Stent-06/02/2002 Implanted:06/02/20 02 (Quantity not on file) Stent CORDIS LEXA BX VELOCITY [id number] / / [id number] Cordis Bx Velocity Cardiac Stent-01/03/2003 Implanted:01/04/20 03 (Quantity not on file) Stent CORDIS [place]EX[place] VELOCITY [id number] / / [id number] documented as of this encounter Advance Directives [...] the patient have Health Care Power of Engine Maintenance Mechanic? No Healthcare Agents on File Name Relationship Healthcare Agent Relationship Communication Gus Rosenbaum Jr. Adult Child Health Care R epresentative (appointed verbally by patient or by statute hierarchy) Care Teams Paper Bag Making Machinist Relationship Specialty Start Date End Date Jasson Denney MD [address] [place] [address] [place] [address] PCP - General Family Medicine 03/22/16 documented as of this encounter
--- OUTSIDE RECORDS SUMMARY | 2023-12-22 05:52 | External Medical Summary | Summary of Care ---
Author Name Unknown Organization [facility] Address [address] [place] [facility] [place] [address] Phone [phone] Care Team Providers Care Community Organization Worker Name Role Phone Jasson Denney MD Primary Care Provide r Encounter Details Date Type Department Care Team (Late st Contact Info) Description 07/20/2023 Telephone Hematology/Oncology [facility] Daria Sharon [address] [facility] [address] Abena Xiong CRNP [address] [place] [address] Allergies Active Allergy Reactions Criticality Noted Date Comments Adhesive Tape 04/11/2006 Latex 06/06/2022 Other reaction(s): rash/itchy documented as of this encounter (statuses as of 07/20/2023) Medications Medication Sig Dispensed Refills Start Date [...] 24 Hour (Imdur)Indications :Coronary artery disease involving [place] coronary artery of [place] heart without angina pectoris TAKE 1 TABLET [...] MOUTH DAILY 90 Tablet 0 06/17/2023 Active documented as of this encounter (statuses as of 07/20/2023) Active Problems Problem Noted Date Diagnosed Date Encounter for antineoplastic chemotherapy 2022 Malignant neoplasm of left b reast in female, estrogen receptor positive 06/28/2022 Postherpetic neuralgia 06/28/2022 Hiatal hernia 08/07/2021 Schatzki's ring 08/07/2021 S/P angioplasty with stent 11/15/2020 Coronary artery disease invo lving [place] heart without angina pectoris 11/15/2020 Cardiac murmur [...] as of this encounter (statuses as of 07/20/2023) Resolved Problems Problem Noted Date Diagnosed Date [...] as of this encounter (statuses as of 07/20/2023) Immunizations Name Administration Dates Next Due COVID-19 mRNA, LNP-s, No Pre serve, 2-Dose Series ([employer]) 08/11/2020,07/21/2020 COVID-19, LNP-s, No Preserve , Dusty-sucrose, Ages 12+ (Pfizer) 02/05/2022,08/07/2021 COVID-19, MRNA-LNP, 23-24, P F, 30 MCG/0.3 mL, 12 YRS AND ABOVE, IM (afterBOT-Comirnaty) 05/13/2023 Covid-19, Mrna, Lnp-s, Pf, B ivalent, [...] Telephone Encounter - Abena Xiong CRNP - 07/20/2023 8:14 PM EST Results [...] Care Team (Late st Contact Info) Description 07/24/2023 3:00 PM EST Office Visit Family [address] [place] [phone] Ruma Childers PA-C [address] [place] [address] [place] [address] 08/04/2023 1:00 PM EST Imaging Radiology [facility] 1st [facility], [address] [place] [address] 08/12/2023 1:40 PM EST Office Visit Family [address] [place] [phone] Jasson Denney MD [address] [place] [address] [place] [address] 10/13/2023 2:00 PM EDT Laboratory Laboratory [address] [place] [phone] [place] [address] 10/13/2023 2:20 PM EDT Office Visit Nephrology [address] [place] [address] Maritza Parrish MD 200 [facility] [place] [address] 10/16/2023 3:30 PM EDT Office Visit Hematology/Oncology [facility] 200 [facility] [place] [address] Abena Xiong CRNP 400 [facility] [place] [address] 04/05/2024 1:20 PM EDT Office Visit Dermatology [address] [place] [address] Melanie Frank PA-C [address] [place] [address] [place] [address] Health Maintenance Due Date Last Done Comments Alpha-1 Antitrypsin 1958 DTaP,Tdap,and Td Vaccines (1 - Tdap) 1959 Zoster Vaccines (1 of 2) 1990 *COPD SEVERITY VERIFIED BY PFT 01/02/2018 Depression Screening 08/07/2022 08/07/2021 CKD PHOS USE SMARTSET 23788 07/25/202302/2023, 01/10/2022, 01/11/2021, Additional history exists O2 ASSESSMENT COMPLETED IN PAST YEAR FOR COPD 08/15/2023 08/14/2022 GFR 01/15/2024 07/17/2023, 06/16, 03/20/2023, Additional history exists HbA1c 03/20/2024 03/20/2023, 10/2021, 11/01/2020, Additional history exists Albumin/Creatinine Ratio 06/30/2024 024, 07/25/2022, 08/07/2021, Additional history exists CKD HGB USE SMARTSET 48885 07/17/202407/17, 07/17/2023, 06/30/2023, Additional history exists DXA [...] this encounter Medical Devices Implanted Type Area Heel Slugger Device Identifier Shelf Expiration Date Model / Serial / Lot [place] Excluder Aaa Endoprothesis System-07/07/2019 Implanted:07/07/19 20 (Quantity not on file) Graft Description:Multiple implant s from system on same day [id number] Cordis Bx Velocity Cardiac Stent-06/02/2002 Implanted:06/02/20 02 (Quantity not on file) Stent CORDIS LEXA BX VELOCITY [id number] / / [id number] Cordis Bx Velocity Cardiac Stent-01/03/2003 Implanted:01/04/20 03 (Quantity not on file) Stent CORDIS LEXA VELOCITY [id number] / / [id number] documented as of this encounter Advance Directives [...] the patient have Health Care Power of Head Banquet Waitress? No Healthcare Agents on File Name Relationship Healthcare Agent Relationship Communication Gus Rosenbaum Jr. Adult Child Health Care R epresentative (appointed verbally by patient or by statute hierarchy) Care Teams Community Organization Worker Relationship Specialty Start Date End Date Jasson Denney MD [address] [place] [address] [place] [address] PCP - General Family Medicine 03/22/16 documented as of this encounter
--- OUTSIDE RECORDS SUMMARY | 2023-12-22 05:52 | External Medical Summary | Summary of Care ---
Author Name Unknown Organization [facility] Address [address] [facility] [address] Phone [phone] Care Team Providers Care Deckhand Clam Dredge Name Role Phone Jasson Denney MD Primary Care Provide r Reason for Visit * Reason Onset Date Comments Test Results Lab 07/20/2023 Encounter Details Date Type Department Care Team (Late st Contact Info) Description 07/20/2023 Telephone Hematology/Oncology [facility] 200 [facility] [place] [phone] Abena Xiong CRNP 400 [place] [address] Test Results Lab Allergies Active Allergy Reactions Criticality Noted Date Comments Adhesive Tape 04/11/2006 Latex 06/06/2022 Other reaction(s): rash/itchy documented as of this encounter (statuses as of 07/21/2023) Medications Medication Sig Dispensed Refills Start Date [...] 24 Hour (Imdur)Indications :Coronary artery disease involving [place] coronary artery of [place] heart without angina pectoris TAKE 1 TABLET [...] as of this encounter (statuses as of 07/21/2023) Active Problems Problem Noted Date Diagnosed Date Encounter for antineoplastic chemotherapy 2022 Malignant neoplasm of left b reast in female, estrogen receptor positive 06/28/2022 Postherpetic neuralgia 06/28/2022 Hiatal hernia 08/07/2021 Schatzki's ring 08/07/2021 S/P angioplasty with stent 11/15/2020 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 pectoris 11/15/2020 Cardiac murmur [...] as of this encounter (statuses as of 07/21/2023) Resolved Problems Problem Noted Date Diagnosed Date [...] as of this encounter (statuses as of 07/21/2023) Immunizations Name Administration Dates Next Due COVID-19 mRNA, LNP-s, No Pre serve, 2-Dose Series ([email or web address]) 08/11/2020,07/21/2020 COVID-19, LNP-s, No Preserve , Dusty-sucrose, Ages 12+ (Pfizer) 02/05/2022,08/07/2021 COVID-19, MRNA-LNP, 23-24, P F, 30 MCG/0.3 mL, 12 YRS AND ABOVE, IM (EmpowrNet-Comirnat) 05/13/2023 Covid-19, Mrna, Lnp-s, Pf, B ivalent, 30 Mcg, IM, 12 yrs and above ([email or web address].it) 06/11/2022 Pneumococcal Conjugate Vacc, 13 Valent (Prevnar) [...] encounter Miscellaneous Notes * Telephone Encounter - Vonnie Herrera RN - 07/21/2023 9:35 AM EST Contacted [facility]. [facility] would like to proceed with the Prabhjot C. Would like the prescription sent to [facility] in [place]. Aware she cannot take her pantoprazole and Calcium supplements at the same time. Aware of the GI symptoms that can occur and voiced she will reach out should any of those symptoms occur. States she struggles with constipation at baseline. Also aware of the recommended colonoscopy in which she was agreeable to. * Telephone Encounter - Abena Xiong, MING - 07/20/2023 8:14 PM EST Results for [...] 07/24/2023 3:00 PM EST Office Visit Family [address] [place] [phone] Ruma Childers PA-C [address] [place] [address] [place] [address] 08/04/2023 1:00 PM EST Imaging Radiology [facility] 1st [facility] [address] [facility] [place] [address] 08/12/2023 1:40 PM EST Office Visit Family Medicine [address] [place] [phone] Jasson Denney MD [address] [place] [address] [place] [address] 10/13/2023 2:00 PM EDT Laboratory Laboratory [address] [place] [phone] [place], Lab [address] [place] [address] 10/13/2023 2:20 PM EDT Office Visit Nephrology [address] [place] [address] Maritza Parrish MD 200 [facility] [place] [address] 10/16/2023 3:30 PM EDT Office Visit Hematology/Oncology [facility] 200 [facility] [place] [address] Abena Xiong CRNP [address] [place] [address] [place] [address] 04/05/2024 1:20 PM EDT Office Visit Dermatology [address] [place] [address] Melanie Frank PA-C [address] [place] [address] [place] [address] Health Maintenance Due Date Last Done Comments Alpha-1 Antitrypsin 1958 DTaP,Tdap,and Td Vaccines (1 - Tdap) 1959 Zoster Vaccines (1 of 2) 1990 *COPD SEVERITY VERIFIED BY PFT 01/02/2018 Depression Screening 08/07/2022 08/07/2021 CKD PHOS USE SMARTSET 95712 07/25/20230 02/2023, 01/10/2022, 01/11/2021, Additional history exists O2 ASSESSMENT COMPLETED IN PAST YEAR FOR COPD 08/15/2023 08/14/2022 GFR 01/15/2024 07/17/2023, 06/16, 03/20/2023, Additional history exists HbA1c 03/20/2024 03/20/2023, 10/2021, 11/01/2020, Additional history exists Albumin/Creatinine Ratio 06/30/2024 024, 07/25/2022, 08/07/2021, Additional history exists CKD HGB USE SMARTSET 58806 07/17/202407/17, 07/17/2023, 06/30/2023, Additional history exists DXA [...] this encounter Medical Devices Implanted Type Area Nuts And Bolts Assembler Device Identifier Shelf Expiration Date Model / Serial / Lot [place] Excluder Aaa Endoprothesis System-07/07/2019 Implanted:07/07/19 20 (Quantity not on file) Graft Description:Multiple implant s from system on same day [id number] Cordis Bx Velocity Cardiac Stent-06/02/2002 Implanted:06/02/20 02 (Quantity not on file) Stent CORDIS LEXA BX VELOCITY [id number] / / [id number] Cordis Bx Velocity Cardiac Stent-01/03/2003 Implanted:01/04/20 03 (Quantity not on file) Stent CORDIS LEXA VELOCITY [id number] / / [id number] documented as of this encounter Advance Directives [...] the patient have Health Care Power of Picking Table Worker? No Healthcare Agents on File Name Relationship Healthcare Agent Relationship Communication Gus Rosenbaum Jr. Adult Child Health Care R epresentative (appointed verbally by patient or by statute hierarchy) Care Teams Deckhand Clam Dredge Relationship Specialty Start Date End Date Jasson Denney MD [address] [place] [address] [place] [address] PCP - General Family Medicine 03/22/16 documented as of this encounter
--- OUTSIDE RECORDS SUMMARY | 2023-12-22 05:52 | External Medical Summary | Summary of Care ---
Author Name Unknown Organization [facility] Address [address] [facility] [address] Phone [phone] Care Team Providers Care Director Information Security Name Role Phone Jasson Denney MD Primary Care Provide r Reason for Visit * Reason Onset Date Comments Health Maintenance 08/12/2023 Encounter Details Date Type Department Care Team (Late st Contact Info) Description 08/12/2023 Telephone Family Medicine [address] [phone] Jasson Denney MD [address] [place] [address] [place] [address] Health Maintenance Allergies Active Allergy Reactions Criticality Noted Date [...] 24 Hour (Imdur)Indications :Coronary artery disease involving [place] coronary artery of [place] heart without angina pectoris TAKE 1 TABLET [...] stent 11/15/2020 Coronary artery disease invo lving [place] heart without angina pectoris 11/15/2020 Cardiac murmur [...] mRNA, LNP-s, No Pre serve, 2-Dose Series ([employer]) 08/11/2020,07/21/2020 COVID-19, LNP-s, No Preserve , Dusty-sucrose, Ages 12+ (Pfizer) 02/05/2022,08/07/2021 COVID-19, MRNA-LNP, 23-24, P F, 30 MCG/0.3 mL, 12 YRS AND ABOVE, IM (Zomazz-Comirnaty) 05/13/2023 Covid-19, Mrna, Lnp-s, Pf, B ivalent, 30 Mcg, IM, 12 yrs and above ([employer]) 06/11/2022 Pneumococcal Conjugate Vacc, 13 Valent (Prevnar) [...] encounter Miscellaneous Notes * Telephone Encounter - Pao Cesar CHARISSA - 08/12/2023 8:23 AM EST Care Gaps Comprehensive Care Outreach Last Office/Telemedicine Visit: 07/24/2023 (in office), Visit date not found (telemedicine) Next Office Visit: 08/12/2023 Hemoglobin AIC Results: Lab Results Component Value Date/Time HEMOGLOBIN A1C - [facility] 6.1 (H) 03/20/2023 12:02 PM HEMOGLOBIN A1C - [facility] 6.0 (H) 03/20/2022 01:39 PM HEMOGLOBIN A1C - [facility] 6.1 (H) 11/01/2020 08:04 AM HEMOGLOBIN A1C - [facility] 5.9 (H) 05/02/2020 08:25 AM HEMOGLOBIN A1C - [facility] 5.9 (H) 11/09/2019 08:42 AM HEMOGLOBIN A1C - [facility] 5.9 (H) 05/12/2019 07:56 AM BP Readings from Last 1 Encounters: 07/24/23 128/50 Reviewed Health Maintenance below: Health Maintenance Topic Date Due Alpha-1 Antitrypsin Never done DTaP,Tdap,and Td Vaccines (1 - Tdap) Never done Zoster Vaccines (1 of 2) Never done *COPD SEVERITY VERIFIED BY PFT Never done Depression Screening 08/07/2022 CKD PHOS USE SMARTSET 54411 07/25/2023 O2 ASSESSMENT COMPLETED IN PAST YEAR FOR COPD 08/15/2023 Pcp today Care Gap Outreach Action Taken: Outreach not indicated documented in this encounter Plan of Treatment Upcoming Encounters Date Type Department Care Team (Latest Contact Info) Description 08/12/2023 1:40 PM EST Office Visit Family Medicine [address] [place] [phone] Jasson Denney MD [address] [place] [address] [place] [address] 09/01/2023 9:20 AM EDT Laboratory Laboratory [address] [place] [phone] [place] [address] 10/13/2023 2:00 PM EDT Laboratory Laboratory [address] [place] [phone] [place] [address] 10/13/2023 2:20 PM EDT Office Visit Nephrology [address] [place] [address] Maritza Parrish MD [address] [place] [address] 10/16/2023 3:30 PM EDT Office Visit Hematology[facility]Oncolog [facility] [place] [address] [place], [place] [phone] Abena Xiong CRNP [address] [place] [address] 11/25/2023 2:30 PM EDT Hospital Encounter ENDO OSS[facility], Endoscopy Room [facility] [address] [place] [phone] Nitin Austin, DO [address] [place] [address] 11/25/2023 2:30 PM EDT - 11/25/2023 3:00 PM EDT Surgery ENDO OSSC, Endoscopy Room [facility] [address] [place] [phone] Nitin Austin, DO [address] [place] [address] COLONOSCOPY FLEXIBLE PROXIMAL DIAGNOSTIC 04/05/2024 1:20 PM EDT Office Visit Dermatology [address] [place] [address] Melanie Frank PA-C [address] [place] [address] [place] [address] Scheduled Procedures Name Priority Associated Diagnoses Date/Ti me COLONOSCOPY FLEXIBLE PROXIMAL DIAGNOSTIC Iron deficiency anemia 11/25/2023 2:30 PM EDT Health Maintenance Due Date Last Done Comments Alpha-1 Antitrypsin 1958 DTaP,Tdap,and Td Vaccines (1 - Tdap) 1959 Zoster Vaccines (1 of 2) 1990 *COPD SEVERITY VERIFIED BY PFT 01/02/2018 Depression Screening 08/07/2022 08/07/2021 CKD PHOS USE SMARTSET 13075 07/25/2023 020 02/2023, 01/10/2022, 01/11/2021, Additional history exists O2 ASSESSMENT COMPLETED IN PAST YEAR FOR COPD 08/15/2023 08/14/2022 GFR 01/15/2024 07/17/2023, 06/16, 03/20/2023, Additional history exists HbA1c 03/20/2024 03/20/2023, 10/2021, 11/01/2020, Additional history exists Albumin/Creatinine Ratio 06/30/2024 024, 07/25/2022, 08/07/2021, Additional history exists CKD HGB USE SMARTSET 00120 07/17/202407/17, 07/17/2023, 06/30/2023, Additional history exists DXA [...] this encounter Medical Devices Implanted Type Area Manufacturing Coordinator Device Identifier Shelf Expiration Date Model / Serial / Lot [place] Excluder Aaa Endoprothesis System-07/07/2019 Implanted:07/07/19 20 (Quantity not on file) Graft Description:Multiple implant s from system on same day [id number] Cordis Bx Velocity Cardiac Stent-06/02/2002 Implanted:06/02/20 02 (Quantity not on file) Stent Official[employer] LEXA BX VELOCITY [id number] / / [id number] Cordis Bx Velocity Cardiac Stent-01/03/2003 Implanted:01/04/20 03 (Quantity not on file) Stent CORDIS LEXA VELOCITY [id number] / / [id number] documented as of this encounter Advance Directives [...] the patient have Health Care Power of Lens Polisher Hand? No Healthcare Agents on File Name Relationship Healthcare Agent Relationship Communication Gus Rosenbaum Jr. Adult Child Health Care R epresentative (appointed verbally by patient or by statute hierarchy) Care Teams Director Information Security Relationship Specialty Start Date End Date Jasson Denney MD [address] [place] [address] [place] [address] PCP - General Family Medicine 03/22/16 documented as of this encounter
--- OUTSIDE RECORDS SUMMARY | 2023-12-22 05:52 | External Medical Summary | Summary of Care ---
Author Name Unknown Organization [facility] Address [address] [facility] [place] [address] Phone [phone] Care Team Providers Care Sample Distributor Name Role Phone Jasson Denney MD Primary Care Provide r Reason for Visit * Reason Comments Hospital Follow-Up Encounter Details Date Type Department Care Team (Late st Contact Info) Description 07/24/2023 3:00 PM EST Office Visit Family Medicine [address] [phone] Ruma Childers PA-C [address] [place] [address] [place] [address] Labyrinthitis, unspecified laterality* Allergies Active Allergy Reactions Criticality Noted Date Comments Adhesive Tape 04/11/2006 Latex 06/06/2022 Other reaction(s): rash/itchy documented as of this encounter (statuses as of 07/24/2023) Medications Medication Sig Dispensed Refills Start Date [...] 01/31/2023 Active Gabapentin 100 MG Oral Capsule (Neurontin)Indic [...] 24 Hour (Imdur)Indicatio ns:Coronary artery disease involving [place] coronary artery of [place] heart without angina pectoris TAKE 1 [...] the morning. 90 Tablet 1 07/21/2023 Active OSCAL 500/200 D-3 500-200 MG-UNIT PO TABS Take 1 Tablet by mouth in the morning. 0 08/11/2007 07/24/19 24 Discontinued Pantoprazole Sodium 20 MG Oral Tablet Delayed Release (Protonix) TAKE 1 TABLET BY MOUTH DAILY 1/2 HOUR BEFORE THE FIRST MEAL OF THE DAY. DO NOT CRUSH, SPLIT OR CHEW THE TABLET 90 Tablet 1 2023 07/24/19 24 Discontinued documented as of this encounter (statuses as of 07/24/2023) Active Problems Problem Noted Date Diagnosed Date Encounter for antineoplastic chemotherapy 2022 Malignant neoplasm of left b reast in female, estrogen receptor positive 06/28/2022 Postherpetic neuralgia 06/28/2022 Hiatal hernia 08/07/2021 Schatzki's ring 08/07/2021 S/P angioplasty with stent 11/15/2020 Coronary artery disease invo lving [place] heart without angina pectoris 11/15/2020 Cardiac [...] as of this encounter (statuses as of 07/24/2023) Resolved Problems Problem Noted Date Diagnosed Date [...] as of this encounter (statuses as of 07/24/2023) Immunizations Name Administration Dates Next Due COVID-19 mRNA, LNP-s, No Pre serve, 2-Dose Series (Get[employer]) 08/11/2020,07/21/2020 COVID-19, LNP-s, No Preserve , Dusty-sucrose, Ages 12+ (GetGlue) 02/05/2022,08/07/2021 COVID-19, MRNA-LNP, 23-24, P F, 30 MCG/0.3 mL, 12 YRS AND ABOVE, IM ([facility]) 05/13/2023 Covid-19, Mrna, Lnp-s, Pf, B [...] Sign Reading Time Taken Comments Blood Pressure 128/50 07/24/2023 2:45 PM EST Pulse 69 07/24/2023 2:45 PM EST Temperature 36.4 C (97.6 F) 07/24/2023 2:45 PM ES T Respiratory Rate - - Oxygen Saturation 98% 07/24/2023 2:45 PM EST Inhaled Oxygen Concentration - - Weight 73.7 kg (162 lb 8 oz) 07/24/2023 2:45 PM EST Height - - Body Mass Index 26.23 03/20/2023 11:24 AM EDT documented in this encounter Progress Notes * Ruma Childers PA-C - 07/24/2023 2:45 PM EST Nursing Notes: Jaydon Ring LPN 07/24/23 1451 Signed Chief Complaint Patient presents with Hospital Follow-Up [facility] ER follow up from 06/24/2023 Dx Dizziness She is getting PT (Brandon CAMPBELL) at home and they are working on Leg strengthening and vertigo The patient has been properly identified by confirmation of name and date of . Pt here today for ER FU on 06/24/23. Pt went to ER with dizziness. She had labs, CT, MRI - all ok. Neuro was consulted and thought sx were related to vestibulitis. PT was consulted and they rec inpt rehab but pt declined this and wanted to set up rehab through home health. Flu/covid all neg in ER. BPwas a little high in the ER. BP ok today. Looking back through chart, BP has always been ok. Pt is receiving home PT and it is really helping. Pt feels good. Has no issues at this time. Also follows with hematology for her anemia. Is scheduled for a colonoscopy. Review of patient's allergies indicates: Allergen Reactions [...] Capsule by mouth every night at bedtime. Enalapril Maleate 10 MG Oral Tablet (Vasotec) [...] mouth in the morning. 90 Tablet 1 Phenylephrine-[place] Butter 0.25-88.44 % Rectal Suppository Administer into [...] constipation Solitary cyst of breast Breast Cyst Social History Socioeconomic History Marital status: Spouse name: Not on file Number of children: Not on file Years of education: Not on file Highest education level: Not on file Occupational History Not on file Tobacco Use Smoking status: Former Packs/day: 0.50 [...] on file Housing Stability: Not on file O:Blood pressure 128/50, pulse 69, temperature 36.4 C (97.6 F), temperature source Tympanic, weight 73.7 kg (162 lb 8 oz), SpO2 98%. GENERAL: alert, healthy, and no distress HEART: regular rate & rhythm, no murmur, and no gallops LUNGS: chest symmetric with normal AP diameter, no chest deformities noted, no chest wall tenderness, lungs clear to auscultation A:Labyrinthitis, unspecified laterality (Primary) Continue PT. Has FU with PCP at the end of the month. Any questions/problems, please call. If anything changes, worsens, develops new sx, please call [facility]. Follow Up: Return if symptoms worsen or fail to improve. Ruma Childers PA-C documented in this encounter Nursing Notes * Jaydon Ring LPN - 07/24/2023 2:37 PM EST Chief Complaint Patient presents with Hospital Follow-Up [facility] ER follow up from 06/24/2023 Dx Dizziness She is getting PT (Brandon CAMPBELL) at home and they are working on Leg strengthening and vertigo The patient has been properly identified by confirmation of name and date of . documented in this encounter Plan of Treatment Upcoming Encounters Date Type Department Care Team (Latest Contact Info) Description 08/04/2023 1:00 PM EST Imaging Radiology [address] [place] [address] 08/12/2023 1:40 PM EST Office Visit Family Medicine [address] [place] [phone] Jasson Denney MD [address] [place] [address] [place] [address] 09/01/2023 9:20 AM EDT Laboratory Laboratory [address] [place] [phone] [place] [address] 10/13/2023 2:00 PM EDT Laboratory Laboratory [address] [place] [phone] [address] [place] [address] 10/13/2023 2:20 PM EDT Office Visit Nephrology [address] [place] [address] Maritza Parrish MD [address] [place] [address] 10/16/2023 3:30 PM EDT Office Visit Hematology/Oncolog y [facility] [address] [place], [place] [address] Abena Xiong CRNP [address] [place] [address] [place] [address] 11/25/2023 2:30 PM EDT Hospital Encounter ENDO [facility], Endoscopy Room [facility] [address] [place] [phone] Nitin Austin DO [address] [place] [address] 11/25/2023 2:30 PM EDT - 11/25/2023 3:00 PM EDT Surgery ENDO [facility], Endoscopy Room [facility] [address] [place] [phone] Nitin Austin, [address] [place] [address] COLONOSCOPY FLEXIBLE PROXIMAL DIAGNOSTIC 04/05/2024 1:20 PM EDT Office Visit Dermatology [address] [place] [address] Melanie Frank PA-C [address] [place] [address] [place] [address] Scheduled Procedures Name Priority Associated Diagnoses Date/Ti me COLONOSCOPY FLEXIBLE PROXIMAL DIAGNOSTIC Iron deficiency anemia 11/25/2023 2:30 PM EDT Health Maintenance Due Date Last Done Comments Alpha-1 Antitrypsin 1958 DTaP,Tdap,and Td Vaccines (1 - Tdap) 1959 Zoster Vaccines (1 of 2) 1990 *COPD SEVERITY VERIFIED BY PFT 01/02/2018 Depression Screening 08/07/2022 08/07/2021 CKD PHOS USE SMARTSET 12650 07/25/202302/2023, 01/10/2022, 01/11/2021, Additional history exists O2 ASSESSMENT COMPLETED IN PAST YEAR FOR COPD 08/15/2023 08/14/2022 GFR 01/15/2024 07/17/2023, 06/16, 03/20/2023, Additional history exists HbA1c 03/20/2024 03/20/2023, 10/2021, 11/01/2020, Additional history exists Albumin/Creatinine Ratio 06/30/2024 024, 07/25/2022, 08/07/2021, Additional history exists CKD HGB USE SMARTSET 57869 07/17/202407/17, 07/17/2023, 06/30/2023, Additional history exists DXA [...] encounter Medical Devices Implanted Type Area Director Medical Safety Device Identifier Shelf Expiration Date Model / Serial / Lot [place] Excluder Aaa Endoprothesis System-07/07/2019 Implanted:07/07/19 20 (Quantity not on file) Graft Description:Multiple implant s from system on same day [id number] Cordis Bx Velocity Cardiac Stent-06/02/2002 Implanted:06/02/20 02 (Quantity not on file) Stent CORDIS LEXA BX VELOCITY [id number] / / [id number] Cordis Bx Velocity Cardiac Stent-01/03/2003 Implanted:01/04/20 03 (Quantity not on file) Stent CORDIS LEXA VELOCITY [id number] / / [id number] documented as of this encounter Visit Diagnoses Diagnosis Labyrinthitis, unspecified laterality- Primary Iron deficiency anemia Iron deficiency anemia, [...] the patient have Health Care Power of Hr Operations Advisor? No Healthcare Agents on File Name Relationship Healthcare Agent Relationship Communication Gus Rosenbaum Jr. Adult Child Health Care R epresentative (appointed verbally by patient or by statute hierarchy) Care Teams Sample Distributor Relationship Specialty Start Date End Date Jasson Denney MD [address] [place] [address] [place] [address] PCP - General Family Medicine 03/22/16 documented as of this encounter
--- OUTSIDE RECORDS SUMMARY | 2023-12-22 05:52 | External Medical Summary | Summary of Care ---
Author Name Unknown Organization [facility] Address [address] [facility] [place] [address] Phone [phone] Care Team Providers Care Recovery Operator Name Role Phone Jasson Denney MD Primary Care Provide r Encounter Details Date Type Department Care Team (Late st Contact Info) Description 08/07/2023 Telephone General Surgery, [facility] [address] [place] [address] Yasmine Austin MD [address] [place] [address] Allergies Active Allergy Reactions Criticality Noted Date [...] 24 Hour (Imdur)Indications :Coronary artery disease involving [place] coronary artery of [place] heart without angina pectoris TAKE 1 TABLET [...] stent 11/15/2020 Coronary artery disease invo lving [place] heart without angina pectoris 11/15/2020 Cardiac murmur [...] mRNA, LNP-s, No Pre serve, 2-Dose Series ([employer]) 08/11/2020,07/21/2020 COVID-19, LNP-s, No Preserve , Dusty-sucrose, Ages 12+ (Pfizer) 02/05/2022,08/07/2021 COVID-19, MRNA-LNP, 23-24, P F, 30 MCG/0.3 mL, 12 YRS AND ABOVE, IM ([employer]) 05/13/2023 Covid-19, Mrna, Lnp-s, Pf, B ivalent, 30 Mcg, IM, 12 yrs and above ([employer]) 06/11/2022 Pneumococcal Conjugate Vacc, 13 Valent (Prevnar) [...] 1:40 PM EST Office Visit Family Medicine [address] [place] [phone] Jasson Denney MD [address] [place] [address] [place] [address] 09/01/2023 9:20 AM EDT Laboratory Laboratory [address] [place] [phone] [place] [address] 10/13/2023 2:00 PM EDT Laboratory Laboratory [address] [place] [phone] [place] [address] 10/13/2023 2:20 PM EDT Office Visit Nephrology [address] [place] [address] Maritza Parrish MD [address] [place] [address] 10/16/2023 3:30 PM EDT Office Visit Hematology/Oncolog y [facility] [place] [address] [place] [phone] Abena Xiong CRNP [address] [place] [address] Javier [place] [id number] 11/25/2023 2:30 PM EDT Hospital Encounter ENDO [facility], Endoscopy Room [facility] [address] [place] [phone] Nitin Austin DO [address] [place] [address] 11/25/2023 2:30 PM EDT - 11/25/2023 3:00 PM EDT Surgery ENDO [facility], Endoscopy Room [facility] [address] [place] [phone] Nitin Austin DO [address] [place] [address] COLONOSCOPY FLEXIBLE PROXIMAL DIAGNOSTIC 04/05/2024 1:20 PM EDT Office Visit Dermatology [address] [place] [address] Melanie Frank PA-C [address] [place] [address] [place] [address] Scheduled Procedures Name Priority Associated Diagnoses Date/Ti me COLONOSCOPY FLEXIBLE PROXIMAL DIAGNOSTIC Iron deficiency anemia 11/25/2023 2:30 PM EDT Health Maintenance Due Date Last Done Comments Alpha-1 Antitrypsin 1958 DTaP,Tdap,and Td Vaccines (1 - Tdap) 1959 Zoster Vaccines (1 of 2) 1990 *COPD SEVERITY VERIFIED BY PFT 01/02/2018 Depression Screening 08/07/2022 08/07/2021 CKD PHOS USE SMARTSET 48355 07/25/202302/2023, 01/10/2022, 01/11/2021, Additional history exists O2 ASSESSMENT COMPLETED IN PAST YEAR FOR COPD 08/15/2023 08/14/2022 GFR 01/15/2024 07/17/2023, 06/16, 03/20/2023, Additional history exists HbA1c 03/20/2024 03/20/2023, 10/2021, 11/01/2020, Additional history exists Albumin/Creatinine Ratio 06/30/20242 024, 07/25/2022, 08/07/2021, Additional history exists CKD HGB USE SMARTSET 32062 07/17/202407/17, 07/17/2023, 06/30/2023, Additional history exists DXA [...] this encounter Medical Devices Implanted Type Area Machine Cutter Device Identifier Shelf Expiration Date Model / Serial / Lot [place] Excluder Aaa Endoprothesis System-07/07/2019 Implanted:07/07/19 20 (Quantity not on file) Graft Description:Multiple implant s from system on same day [id number] Cordis Bx Velocity Cardiac Stent-06/02/2002 Implanted:06/02/20 02 (Quantity not on file) Stent CORDIS LEXA BX VELOCITY [id number] / / [id number] Cordis Bx Velocity Cardiac Stent-01/03/2003 Implanted:01/04/20 03 (Quantity not on file) Stent CORDIS LEXA VELOCITY [id number] / / [id number] documented as of this encounter Advance Directives [...] the patient have Health Care Power of Insurance Claims Analyst? No Healthcare Agents on File Name Relationship Healthcare Agent Relationship Communication Gus Rosenbaum Jr. Adult Child Health Care R epresentative (appointed verbally by patient or by statute hierarchy) Care Teams Recovery Operator Relationship Specialty Start Date End Date Jasson Denney MD [address] [place] [address] [place] [phone] PCP - General Family Medicine 03/22/16 documented as of this encounter
--- OUTSIDE RECORDS SUMMARY | 2023-12-22 05:52 | External Medical Summary | Summary of Care ---
Author Name Unknown Organization [facility] Address [address] [place] [address] Phone [phone] Care Team Providers Care Appliance Servicer Name Role Phone Jasson Denney MD Primary Care Provide r Reason for Referral * Ancillary Services (Within 10 days (routine)) - Authorized Specialty Diagnoses / Procedures Referred By Contchristopher t Referred To Contact Gastroenterology Diagnoses Iron deficiency anemia, unspecified iron deficiency anemia type Jairo Flowers CRNP [address] [place] [address] Referral ID Status Reason Start Date Expiration Date Visits Requested Visits Authorized [id number] Authorized Ancillary Services Required 07/21/2023 999 999 Question Answer Referral Priority Within 10 days (routine) Where should this appointment be scheduled? [facility] Comments ALERT: Do not order for pediatric patients (18 years or younger). Cancel off screen and order PEDS GASTROENTEROLOGY CONSULT (Type: 1 visit only-Evaluate and Treat) The following Pt. Instructions are available: - Gastro Colonoscopy Prep Instructions [84615] - Gastro Colonoscopy Prep Instructions (Armenian Version) [[id number]] Go to the Pt. Instructions section within the Visit Navigator to access. Colonoscopy ASGE Guidelines: Iron deficiency anemia ADDITIONAL INFORMATION 1. Is the patient on Coumadin? No 2. Is the patient on Pradaxa? No Reason for Visit * Reason Onset Date Comments Test Results Lab 07/20/2023 Encounter Details Date Type Department Care Team ([facility] st Contact Info) Description 07/20/2023 Telephone Hematology/Oncology [facility] [place] [address] [place], [place] [phone] Jairo Flowers CRNP [address] [facility] [place] [address] Test Results Lab Allergies Active [...] 24 Hour (Imdur)Indications :Coronary artery disease involving [place] coronary artery of [place] heart without angina pectoris TAKE 1 TABLET [...] stent 11/15/2020 Coronary artery disease invo lving [place] heart without angina pectoris 11/15/2020 Cardiac murmur [...] mRNA, LNP-s, No Pre serve, 2-Dose Series ([employer]) 08/11/2020,07/21/2020 COVID-19, LNP-s, No Preserve , Dusty-sucrose, Ages 12+ ([employer]) 02/05/2022,08/07/2021 COVID-19, MRNA-LNP, 23-24, P F, 30 MCG/0.3 mL, 12 YRS AND ABOVE, IM ([facility]) 05/13/2023 Covid-19, Mrna, Lnp-s, Pf, B ivalent, 30 Mcg, IM, 12 yrs and above (Aqua[employer]) 06/11/2022 Pneumococcal Conjugate Vacc, 13 Valent (Prevnar) [...] would like to proceed with the Prabhjot Engel Would like the prescription sent to [facility] in [place]. Aware she cannot take her pantoprazole and [...] 3:00 PM EST Office Visit Family Medicine [address] [place] [phone] Ruma Childers PA-C [address] [place] [address] [place] [address] 08/04/2023 1:00 PM EST Imaging Radiology [address] [facility] [place] [address] 08/12/2023 1:40 PM EST Office Visit Family Medicine [address] [place] [phone] Jasson Denney MD [address] [place] [address] [place] [address] 09/01/2023 9:20 AM EDT Laboratory Laboratory [address] [place] [phone] [place] [address] 10/13/2023 2:00 PM EDT Laboratory Laboratory [address] [place] [address] [place] [address] 10/13/2023 2:20 PM EDT Office Visit Nephrology [address] [place] [address] Maritza Parrish MD [address] [place] [address] 10/16/2023 3:30 PM EDT Office Visit Hematology/Oncology [facility] [address] [facility] [place] [address] Jairo Flowers CRNP [address] [place] [address] [place] [address] 04/05/2024 1:20 PM EDT Office Visit Dermatology [address] [place] [address] Melanie Frank PA-C [address] [place] [address] [place] [address] Scheduled Orders Name Type Priority Associated Diagnoses [...] 3 Occurrences starting 07/21/2023 until 01/19/2024 Scheduled Referrals Name Type Priority Associated Diagnoses [...] Screening 08/07/2022 08/07/2021 CKD PHOS USE SMARTSET 32062 07/25/202302/2023, 01/10/2022, 01/11/2021, Additional history exists O2 ASSESSMENT COMPLETED IN PAST YEAR FOR COPD 08/15/2023 08/14/2022 GFR 01/15/2024 07/17/2023, 06/16, 03/20/2023, Additional history exists HbA1c 03/20/2024 03/20/2023, 10/2021, 11/01/2020, Additional history exists Albumin/Creatinine Ratio 06/30/20242 024, 07/25/2022, 08/07/2021, Additional history exists CKD HGB USE SMARTSET 80679 07/17/202407/17, 07/17/2023, 06/30/2023, Additional history exists DXA [...] this encounter Medical Devices Implanted Type Area Automation Controls Expert Device Identifier Shelf Expiration Date Model / Serial / Lot [place] Excluder Aaa Endoprothesis System-07/07/2019 Implanted:07/07/19 20 (Quantity not on file) Graft Description:Multiple implant s from system on same day [id number] Cordis Bx Velocity Cardiac Stent-06/02/2002 Implanted:06/02/20 02 (Quantity not on file) Stent CORDIS LEXA BX VELOCITY [id number] / / [id number] Cordis Bx Velocity Cardiac Stent-01/03/2003 Implanted:01/04/20 03 (Quantity not on file) Stent CORDIS LEXA VELOCITY [id number] / / [id number] documented as of this encounter Visit Diagnoses Diagnosis Iron deficiency anemia, unspecified iron deficiency anemia type- Primary documented in this encounter Advance Directives [...] the patient have Health Care Power of Grain Manager? No Healthcare Agents on File Name Relationship Healthcare Agent Relationship Communication Gus Rosenbaum Jr. Adult Child Health Care R epresentative (appointed verbally by patient or by statute hierarchy) Care Teams Appliance Servicer Relationship Specialty Start Date End Date Jasson Denney MD [address] [place] [address] [place] [address] PCP - General Family Medicine 03/22/16 documented as of this encounter
--- OUTSIDE RECORDS SUMMARY | 2023-12-22 05:52 | External Medical Summary | Summary of Care ---
Author Name Unknown Organization [facility] Address [address] [place] [address] Phone [phone] Care Team Providers Care Justice Court Judge Name Role Phone Jasson Denney MD Primary Care Provide r Reason for Referral * Ancillary Services (Within 10 days (routine)) - Authorized Specialty Diagnoses / Procedures Referred By Contchristopher t Referred To Contact Gastroenterology Diagnoses Iron deficiency anemia, unspecified iron deficiency anemia type Jairo Flowers CRNP [address] [place] [address] Referral ID Status Reason Start Date Expiration Date Visits Requested Visits Authorized [id number] Authorized Ancillary Services Required 07/21/2023 999 999 Question Answer Referral Priority Within 10 days (routine) Where should this appointment be scheduled? Efraín Comments ALERT: Do not order for pediatric patients (18 years or younger). Cancel off screen and order PEDS GASTROENTEROLOGY CONSULT (Type: 1 visit only-Evaluate and Treat) The following Pt. Instructions are available: - Gastro Colonoscopy Prep Instructions [09653] - Gastro Colonoscopy Prep Instructions (Yi Version) [45156] Go to the Pt. Instructions section within the Visit Navigator to access. Colonoscopy ASGE Guidelines: Iron deficiency anemia ADDITIONAL INFORMATION 1. Is the patient on Coumadin? No 2. Is the patient on Pradaxa? No Reason for Visit * Reason Onset Date Comments Test Results Lab 07/20/2023 Encounter Details Date Type Department Care Team ([facility] st Contact Info) Description 07/20/2023 Telephone Hematology/Oncology [facility] [place] [address] [place], [place] [phone] [facility] [address] Test Results Lab [...] 24 Hour (Imdur)Indications :Coronary artery disease involving [place] coronary artery of [place] heart without angina pectoris TAKE 1 TABLET [...] stent 11/15/2020 Coronary artery disease invo lving [place] heart without angina pectoris 11/15/2020 Cardiac murmur [...] mRNA, LNP-s, No Pre serve, 2-Dose Series (GuardiCore) 08/11/2020,07/21/2020 COVID-19, LNP-s, No Preserve , Dusty-sucrose, Ages 12+ (GuardiCore) 02/05/2022,08/07/2021 COVID-19, MRNA-LNP, 23-24, P F, 30 MCG/0.3 mL, 12 YRS AND ABOVE, IM ([facility]) 05/13/2023 Covid-19, Mrna, Lnp-s, Pf, B ivalent, 30 Mcg, IM, 12 yrs and above (GuardiCore) 06/11/2022 Pneumococcal Conjugate Vacc, 13 Valent (Prevnar) [...] encounter Miscellaneous Notes * Addendum Note - Jairo Flowers CRNP [...] Engel Would like the prescription sent to [facility] in [place]. Aware she cannot take her pantoprazole and Calcium supplements at the same time. Aware of the GI symptoms that can occur and voiced she will reach out should any of those symptoms occur. States she struggles with constipation at baseline. Also aware of the recommended colonoscopy in which shewas agreeable to. * Telephone Encounter - Jairo FlowersMING - 07/20/2023 8:14 PM EST Results for [...] 07/24/2023 3:00 PM EST Office Visit Family [address] [place] [phone] Ruma Childers PA-C [address] [place] [address] [place] [address] 08/04/2023 1:00 PM EST Imaging Radiology [address] [place] [address] 08/12/2023 1:40 PM EST Office Visit Family Medicine [address] [place] [phone] Jasson Denney MD [address] [place] [address] [place] [address] 10/13/2023 2:00 PM EDT Laboratory Laboratory [address] [place] [phone] [facility] Lab [address] [place] [address] 10/13/2023 2:20 PM EDT Office Visit Nephrology [address] [place] [address] Maritza Parrish MD 200 [facility] [place] [address] 10/16/2023 3:30 PM EDT Office Visit Hematology/Oncology [facility] 200 [facility] [place] [address] Jairo Flowers CRNP 400 [facility] [place] [address] 04/05/2024 1:20 PM EDT Office Visit Dermatology [address] [place] [address] Melanie Frank PA-C [address] [place] [address] [place] [address] Scheduled Orders Name Type Priority Associated Diagnoses [...] Screening 08/07/2022 08/07/2021 CKD PHOS USE SMARTSET 24051 07/25/202302/2023, 01/10/2022, 01/11/2021, Additional history exists O2 ASSESSMENT COMPLETED IN PAST YEAR FOR COPD 08/15/2023 08/14/2022 GFR 01/15/2024 07/17/2023, 06/16, 03/20/2023, Additional history exists HbA1c 03/20/2024 03/20/2023, 10/2021, 11/01/2020, Additional history exists Albumin/Creatinine Ratio 06/30/2024 024, 07/25/2022, 08/07/2021, Additional history exists CKD HGB USE SMARTSET 43946 07/17/202407/17, 07/17/2023, 06/30/2023, Additional history exists DXA [...] this encounter Medical Devices Implanted Type Area Cryptoanalysis Teacher Device Identifier Shelf Expiration Date Model / Serial / Lot Grayson Excluder Aaa Endoprothesis System-07/07/2019 Implanted:07/07/19 20 (Quantity not on file) Graft Description:Multiple implant s from system on same day [id number] Cordis Bx Velocity Cardiac Stent-06/02/2002 Implanted:06/02/20 02 (Quantity not on file) Stent CORDIS LEXA BX VELOCITY [id number] / / [id number] Cordis Bx Velocity Cardiac Stent-01/03/2003 Implanted:01/04/20 03 (Quantity not on file) Stent CORDIS LEXA VELOCITY [id number] / / [id number] documented as of this encounter Visit Diagnoses [...] the patient have Health Care Power of Examination Proctor? No Healthcare Agents on File Name Relationship Healthcare Agent Relationship Communication Gus Rosenbaum Jr. Adult Child Health Care R epresentative (appointed verbally by patient or by statute hierarchy) Care Teams Justice Court Judge Relationship Specialty Start Date End Date Jasson Denney MD [address] [place] [address] [place] [phone] PCP - General Family Medicine 03/22/16 documented as of this encounter
--- OUTSIDE RECORDS SUMMARY | 2023-12-22 05:53 | External Medical Summary ---
Author Name Unknown Address Unknown Organization K01:[facility] [place] [facility] [address] [facility] [address] [place] [address] Laboratory Report Ordering Provider Test Date Status MARIAN DAVIS 06/30/2023 11:06:29 Final Observation Date Value Abnormality Reference (Units ) Status WBC, Total 06/30/2023 11:06:29 7.32 4.00-10.80 (K/uL) Final RBC 06/30/2023 11:06:29 3.27 3.85-5.15 (M/uL) Final Hemoglobin 06/30/2023 11:06:29 9.2 Below low normal 12.0-15.3 (g/dL) Final HCT 06/30/2023 11:06:29 30.6 Below low normal 36.0-45.2 (%) Final MCV 06/30/2023 11:06:29 93.6 81.5-97.5 (fL) Final MCH 06/30/2023 11:06:29 28.1 27.0-34.0 (pg) Final MCHC 06/30/2023 11:06:29 30.1 32.0-36.0 (g/dL) Final RDW 06/30/2023 11:06:29 15.2 11.5-15.5 (%) Final Platelets 06/30/2023 11:06:29 259 140-400 (K/uL) Final MPV 06/30/2023 11:06:29 10.3 6.6-11.1 (fL) Final Nucleated erythrocytes/100 leukocytes [Ratio] in Blood by Automated count 06/30/2023 11:06:29 0 <=0 (/100 WBCs) Final Performing Location [facility] [place] [address] [place] [address]
--- OUTSIDE RECORDS SUMMARY | 2023-12-22 05:53 | External Medical Summary | Summary of Care ---
Author Name Unknown Organization [facility] Address [address] [facility] [place] [address] Phone [phone] Care Team Providers Care Education Reporter Name Role Phone Jasson Denney MD Primary Care Provide r Reason for Visit * Reason Comments Follow Up F/U Encounter Details Date Type Department Care Team (Late st Contact Info) Description 07/17/2023 2:30 PM EST Office Visit Hematology/Oncology [facility] [place] 200 [facility] [place] [phone] Abena Xiong CRNP 400 [place] [address] History of breast cancer*; Anemia, unspecified type Allergies Active Allergy Reactions Criticality Noted [...] 24 Hour (Imdur)Indications :Coronary artery disease involving [place] coronary artery of [place] heart without angina pectoris TAKE 1 TABLET [...] Coronary artery disease invo lving [place] heart without angina pectoris 11/15/2020 Cardiac murmur [...] mRNA, LNP-s, No Pre serve, 2-Dose Series (Programmr) 08/11/2020,07/21/2020 COVID-19, LNP-s, No Preserve , Dusty-sucrose, Ages 12+ (Programmr) 02/05/2022,08/07/2021 COVID-19, MRNA-LNP, 23-24, P F, 30 MCG/0.3 mL, 12 YRS AND ABOVE, IM ([facility]) 05/13/2023 Covid-19, Mrna, Lnp-s, Pf, B ivalent, 30 Mcg, IM, 12 yrs and above (Programmr) 06/11/2022 Pneumococcal Conjugate Vacc, 13 Valent (Prevnar) [...] Sign Reading Time Taken Comments Blood Pressure 130/64 07/17/2023 2:27 PM EST Pulse 68 07/17/2023 2:25 PM EST Temperature 36.3 C (97.4 F) 07/17/2023 2:25 PM ES T Respiratory Rate 18 07/17/2023 2:25 PM EST Oxygen Saturation 95% 07/17/2023 2:25 PM EST Inhaled Oxygen Concentration - - Weight 73.3 kg (161 lb 8 oz) 07/17/2023 2:25 PM EST Height - - Body Mass Index 26.07 03/20/2023 11:24 AM EDT documented in this encounter Progress Notes * Tyrese Abena MING Newman - 07/17/2023 2:30 PM EST Images from the original note were not included. Hematology/Oncology Outpatient Clinic note [facility] [address] [place], [place] [address] Name: Afua Rosenbaum Date: 07/17/2023 CHIEF COMPLAINT: Afua Rosenbaum is a 83 year old female patient of Dr. Rashid Tabitha here today for f/u visit today. From Patient chart confirmed with patient. HEMATOLOGY/ONCOLOGY DIAGNOSIS: Left breast cancer, ER low positive with 5% nuclear positivity and WA/HER2 Ludivina negative. Cancer Staging stage pT2 pN0 disease. 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 Core biopsy of the mass was done on 06/20/2022 and pathology is consistent with invasive ductal carcinoma, grade 3 with necrosis, ER low positive with 5% nuclear positivity, cancer in this sample hasa low level (1%-10%) of ER expression by IHC, WA/HER2 Ludivina were negative. Final Diagnosis A. Breast, Left, 2-3:00 3cm FN, core biopsy: Invasive ductal carcinoma, grade 3 with necrosis. Estrogen Receptor (ER) protein expression is LOW POSITIVE 5% nuclear positivity 1+ average intensity score (range 0 to 3+) COMMENT: The cancer in this sample has a low level (1%-10%) of ER expression by IHC Progesterone Receptor (WA) protein expression is NEGATIVE HER2 oncoprotein expression [...] Category pT2 Regional Lymph Nodes Modifier (sn): [place] node(s) evaluated. pN Category pN0 Size (Extent) of DCIS Estimated size (extent) of DCIS is at least (Millimeters): 80 mm Architectural Patterns Comedo Solid Nuclear Grade Grade III (high) Necrosis Present, central (expansive "comedo" necrosis) Interval History: Clinically she is doing well without any new symptoms of complain. Oncotype DX score is 58. ER/WA also negative on DCIS component of the tumor. ER/WA This addendum is being issued to report the results of ER/WA testing on the DCIS component, per request of Dr. Lu. Estrogen Receptor (ER) protein expression is NEGATIVE <1% nuclear positivity COMMENT: Assay internal and external control immunoreactivity is appropriate. Progesterone Receptor (WA) protein expression is NEGATIVE <1% nuclear positivity HISTORY OF PRESENT ILLNESS: Afua Rosenbaum is a 83 year old female with a history as outlined above. Currently here for f/u visit today. Patient reporting increased dizziness for the last few months. BP has been running lowerthan normal for her. Has appointment with her PCP later this month. Has chronic issues with lower back and leg pain. Lower extremities feels weak. Currently doing PT. Denies falls. Ambulates with cane. Does report SOB with exertion such as walking to her mailbox and back. Denies melena or hematochezia or other forms of abnormal bleeding. Does have hemorrhoids but these do not bleed often. Denies changes in bowel habits. Weight is stable. Past Medical History: Diagnosis Date Breast cancer [...] performed by Yasmine Austin MD at [facility] COLONOSCOPY 07/17/2008 patient states she had a polyp removed and internal hemorrhoids COLONOSCOPY, DIAGNOSTIC (RECTUM) 07/11/2015 hyperplastic polyp, diverticulosis/[facility] EGD, FLEXIBLE, DIAGNOSTIC 07/11/2015 reflux esophagitis, Schatzki ring, HH/[facility] IDENTIFY SENTINEL NODE, RADIOACTIVE TRACER Left 08/14/2022 INJECTION PROCEDURE FOR IDENTIFICATION SENTINEL NODE performed by Yasmine Austin MD at [facility] INSERTION OF LENS PROSTHESIS 05/03/2015 right INSERTION OF LENS PROSTHESIS 04/19/2015 left MASTECTOMY, SIMPLE, COMPLETE Left 08/14/2022 MASTECTOMY SIMPLE COMPLETE performed by Yasmine Austin MD at [facility] MISCELLANEOUS ORDER ([facility] ONLY) May 2002 [...] Capsule by mouth every night at bedtime. Phenylephrine-[place] Butter 0.25-88.44 % Rectal Suppository Administer into the rectum as needed forHemorrhoids. (Patient not taking: Reported on 06/06/2023) Nitroglycerin 0.4 MG Sublingual Tablet Sublingual (Nitrostat) Place 1 Tablet under the tongue as needed. (Patient not taking: Reported on 06/06/2023) Enalapril Maleate 10 MG Oral Tablet (Vasotec) [...] taking: Reported on 06/06/2023) 180 Capsule 1 Clopidogrel Bisulfate 75 MG [...] TABLET BY MOUTH DAILY 90 Tablet 0 No current facility-administered medications for this visit. REVIEW OF SYSTEMS: See HPI - otherwise negative OBJECTIVE: Filed Vitals: 07/17/23 1425 07/17/23 1427 BP: 101/53 130/64 Pulse: 68 Resp: 18 Temp: 36.3 C (97.4 F) TempSrc: Tympanic SpO2: 95% Weight: 73.3 kg (161 lb 8 oz) Wt Readings from Last 5 Encounters: 07/17/23 73.3 kg (161 lb 8 oz) 06/06/23 73.9 kg (163 lb) 05/13/23 74.4 kg (164 lb) 03/31/23 73.6 kg (162 lb 3.2 oz) 03/20/23 73.5 kg (162 lb) PHYSICAL EXAM: ECOG: Performance Status 1 = [...] orders placed or performed in visit on 06/30/23 COMPREHENSIVE METABOLIC PANEL Result Value Ref Range BUN 30 (H) 6 - 20 mg/dL Creatinine 1.6 (H) 0.5 - 1.0 mg/dL Estimated Glomerular Filtration Rate 32 (L) >=60 mL/min Sodium 139 135 - 146 mmol/L Potassium 4.3 3.5 - 5.1 mmol/L Chloride 108 (H) 98 - 107 mmol/L CO2 21 (L) 22 - 32 mmol/L Anion Gap 10 7 - 15 mmol/L Glucose 115 70 - 120 mg/dL Albumin 4.0 3.8 - 5.0 g/dL AST 15 10 - 35 U/L Alkaline Phosphatase 72 35 - 130 U/L Bilirubin, Total 0.2 <=1.2 mg/dL Calcium 9.7 8.4 - 10.2 mg/dL Protein 6.3 6.0 - 8.3 g/dL ALT 20 10 - 35 U/L URINALYSIS WITH MICROSCOPIC EXAM Result Value Ref Range Color, Urine Yellow Light Yellow, Yellow, Dark Yellow Clarity, Urine Slightly Cloudy (A) Clear Glucose, Urine 100 (A) Negative mg/dL Bilirubin, Urine Negative Negative Ketone, Urine Negative Negative mg/dL Specific Dilley, Urine 1.028 1.003 - 1.030 Blood, Urine Negative Negative pH, Urine 5.5 5.0 - 7.5 Units Protein, Urine 100 (A) Negative mg/dL Urobilinogen, Urine 0.2 0.2, 1.0 mg/dL Nitrite, Urine Negative Negative Esterase, Urine Negative Negative RBC, Urine 0-2 0 - 2 /HPF WBC, Urine 3-5 (A) 0 - 2 /HPF Bacteria, Urine 26-50 (A) 0 - 25 /HPF Calcium Oxalate Crystal, Urine 20-29 (A) None /HPF Transitional Epithelial Cells, Urine 1-4 (A) None /HPF Comment, Urine ALBUMIN / CREATININE RATIO, URINE Result Value Ref Range Albumin, Random Urine 9.95 mg/dL Creatinine, Random Urine 349 mg/dL Albumin / Creatinine Ratio, Urine 29 <30 mg/g Creat LIPID PANEL WITH DIRECT LDL IF TG IS HIGH Result Value Ref Range Triglycerides 114 <=174 mg/dL Cholesterol 114 <200 mg/dL HDL Cholesterol 68 >49 mg/dL Non-HDL Cholesterol 46 <=159 mg/dL LDL Cholesterol 23 <=129 mg/dL CBC Result Value Ref Range WBC 7.32 4.00 - 10.80 K/uL RBC 3.27 3.85 - 5.15 M/uL HGB 9.2 (L) 12.0 - 15.3 g/dL HCT 30.6 (L) 36.0 - 45.2 % MCV 93.6 81.5 - 97.5 fL MCH 28.1 27.0 - 34.0 pg MCHC 30.1 32.0 - 36.0 g/dL RDW 15.2 11.5 - 15.5 % PLT 259 140 - 400 K/uL MPV 10.3 6.6 - 11.1 fL nRBCs 0 <=0 /100 WBCs DIFFERENTIAL, AUTOMATED Result Value Ref Range WBC 7.32 4.00 - 10.80 K/uL Neutrophils % 77.6 (H) 40.0 - 75.0 % Lymphocytes % 10.0 (L) 18.0 - 42.0 % Monocytes % 7.0 1.0 - 11.0 % Eosinophils % 3.0 0.0 - 6.0 % Basophils % 1.0 0.0 - 2.0 % Immature Granulocytes % 1.4 0.0 - 2.0 % Absolute Neutrophils 5.69 1.80 - 7.70 K/uL Absolute Lymphocytes 0.73 (L) 1.00 - 4.80 K/ul Absolute Monocytes 0.51 0.00 - 1.10 K/uL Absolute Eosinophils 0.22 0.00 - 0.70 K/uL Absolute Basophils 0.07 0.00 - 0.20 K/uL Absolute Immature Granulocytes 0.10 0.00 - 0.20 K/uL IMAGING: Right Mammogram 06/12/23: Findings The patient is status post left mastectomy. The right breast is heterogeneously dense, which may obscure small masses. There is no evidence of suspicious masses, calcifications, or other abnormal findings in the right breast. Impression No mammographic evidence of malignancy. BI-RADS Category: 2 - Benign. Recommendation Diagnostic mammogram in 1 year is recommended for the right breast. Follow up MRI as per report from 01/30/2023 due July 2023. IMPRESSION/PLAN: History of left breast cancer Acute on chronic anemia Disease Status: No Evidence of Disease (JOHN) Under observation since November 2022 Mammogram annually - next due May 2024 Right breast MRI scheduled 08/04/23 per general surgery Lab results reviewed: Hgb has declined to 9.2, normocytic indices Renal function stable with creatinine of 1.6 Patient with chronic mild anemia possibly related to renal insufficiency. Will have further lab work today as previously ordered by Dr. Lu to further evaluate acute worsening of anemia including iron screen, ferritin, retic panel, ldh, haptoglobin and folic acid. Will follow up with patient by telephone with results and further recommendations as indicated. RTC in three months with provider with cbc/diff and cmp MING Cisneros documented in this encounter Nursing Notes * Lynnette Joaquin LPN - 07/17/2023 2:28 PM EST Patient identifed by name and birthdate Do you have any concerns about pain management for today's visit? No Living Will or Advance Directive for Health Care as noted on the problem list. [facility] is a way you can talk to your provider on line through e-mail. Would you like to sign up? I can activate it for you? NO Filed Vitals: 07/17/23 1425 07/17/23 1427 BP: 101/53 130/64 Pulse: 68 Resp: 18 Temp: 36.3 C (97.4 F) TempSrc: Tympanic SpO2: 95% Weight: 73.3 kg (161 lb 8 oz) Patient was instructed to [...] 3:00 PM EST Office Visit Family Medicine [address] [phone] Ruma Childers PA-C [address] [place] [address] [place] [address] 08/04/2023 1:00 PM EST Imaging Radiology [address], [address] [place] [address] 08/12/2023 1:40 PM EST Office Visit Family Medicine [address] [place] [address] Jasson Denney MD [address] [place] [address] [place] [address] 10/13/2023 2:00 PM EDT Laboratory Laboratory [address] [place] [phone] [facility] [address] [place] [address] 10/13/2023 2:20 PM EDT Office Visit Nephrology [address] [place] [address] Maritza Parrish MD [address] [place] [address] 10/16/2023 3:30 PM EDT Office Visit Hematology/Oncology [facility] 200 [facility] [place] [address] Abena Xiong CRNP [address] [place] [address] 04/05/2024 1:20 PM EDT Office Visit Dermatology [address] [place] [address] Melanie Frank PA-C [address] [place] [address] [place] [address] Scheduled Orders Name Type Priority Associated Diagnoses Orde r Schedule CBC WITH WBC DIFFERENTIAL Lab STAT History of breast cancer Expected: 10/15/2023 (Approximate), Expires: 01/15/2024 COMPREHENSIVE METABOLIC PANEL Lab STAT History of breast cancer Expected: 10/15/2023 (Approximate), Expires: 01/15/2024 Health Maintenance Due Date Last Done Comments Alpha-1 Antitrypsin 1958 DTaP,Tdap,and Td Vaccines (1 - Tdap) 1959 Zoster Vaccines (1 of 2) 1990 *COPD SEVERITY VERIFIED BY PFT 01/02/2018 Depression Screening 08/07/2022 08/07/2021 CKD PHOS USE SMARTSET 06939 07/25/2023 02/0 02/2023, 01/10/2022, 01/11/2021, Additional history exists O2 ASSESSMENT COMPLETED IN PAST YEAR FOR COPD 08/15/2023 08/14/2022 GFR 01/15/2024 07/17/2023, 06/16, 03/20/2023, Additional history exists HbA1c 03/20/2024 03/20/2023, 100 10/2021, 11/01/2020, Additional history exists Albumin/Creatinine Ratio 06/30/2024 024, 07/25/2022, 08/07/2021, Additional history exists CKD HGB USE SMARTSET 84883 07/17/202407/17, 07/17/2023, 06/30/2023, Additional history exists DXA [...] this encounter Medical Devices Implanted Type Area Assisted Living Administrator Device Identifier Shelf Expiration Date Model / Serial / Lot Mclaughlin Excluder Aaa Endoprothesis System-07/07/2019 Implanted:07/07/19 20 (Quantity not on file) Graft Description:Multiple implant s from system on same day [id number] Cordis Bx Velocity Cardiac Stent-06/02/2002 Implanted:06/02/20 02 (Quantity not on file) Stent CORDIS LEXA BX VELOCITY [id number] / / [id number] Cordis Bx Velocity Cardiac Stent-01/03/2003 Implanted:01/04/20 03 (Quantity not on file) Stent CORDIS LEXA VELOCITY [id number] / / [id number] documented as of this encounter Visit Diagnoses Diagnosis History of breast cancer- Primary Personal history of malignant neoplasm of breast Anemia, unspecified type documented in this encounter Advance Directives Latest [...] the patient have Health Care Power of Planetarium Sky Show Technician? No Healthcare Agents on File Name Relationship Healthcare Agent Relationship Communication Gus Rosenbaum Jr. Adult Child Health Care R epresentative (appointed verbally by patient or by statute hierarchy) Care Teams Education Reporter Relationship Specialty Start Date End Date Jasson Denney MD [address] [place] [address] [place] [phone] PCP - General Family Medicine 03/22/16 documented as of this encounter
--- OUTSIDE RECORDS SUMMARY | 2023-12-22 05:53 | External Medical Summary ---
Author Name Unknown Address Unknown Organization K09:[facility] [place] [address] Laboratory Report Ordering Provider Test Date Status MARIAN DAVIS 07/17/2023 15:11:51 Final Observation Date Value Abnormality Reference (Units ) Status BUN 07/17/2023 15:11:51 23 Above high normal 6-20 (mg/dL) Final Creatinine 07/17/2023 15:11:51 1.4 Above high normal 0.5-1.0 (mg/dL) Final Glomerular filtration rate/1.73 sq M.predicted [Volume Rate/Area] in Serum, Plasma or Blood by Creatinine-based formula (CKD-EPI) 07/17/2023 15:11:51 38 Below low normal >=60 (mL/min) Final eGFR is calculated based on the CKD-EPI 2020 equation SODIUM 07/17/2023 15:11:51 142 135-146 (m mol/L) Final Potassium 07/17/2023 15:11:51 5.0 3.5-5.1 (m mol/L) Final Cl 07/17/2023 15:11:51 107 98-107 (mm ol/L) Final CO2 07/17/2023 15:11:51 23 22-32 (mmo l/L) Final Anion gap 07/17/2023 15:11:51 12 7-15 (mmol /L) Final Glucose 07/17/2023 15:11:51 89 70-120 (mg /dL) Final Albumin 07/17/2023 15:11:51 4.0 3.8-5.0 (g /dL) Final AST (Aspartate aminotransferase) 07/17/2023 15:11:51 14 10-35 (U/L) Fin al Alk Phos 07/17/2023 15:11:51 82 35-130 (U/ L) Final Bilirubin, Total 07/17/2023 15:11:51 <0.2 <=1 .2 (mg/dL) Final Calcium 07/17/2023 15:11:51 10.2 8.4-10.2 ( mg/dL) Final Protein 07/17/2023 15:11:51 6.9 6.0-8.3 (g /dL) Final ALT (Alanine aminotransferase) 07/17/2023 15:11:51 7 Below low normal 10-35 (U/L) Final Performing Location [facility] [address] [place] [address]
--- OUTSIDE RECORDS SUMMARY | 2023-12-22 05:53 | External Medical Summary ---
Author Name Unknown Address Unknown Organization [id number]:LAB[facility]ATORY [facility] [place] [address] [place] [address] Laboratory Report Ordering Provider Test Date Status MARIAN DAVIS 07/17/2023 15:11:51 Final Observation Date Value Abnormality Reference (Units ) Status Ferritin 07/17/2023 15:11:51 24 13-150 (ng /mL) Final Postmenopausal women have hi gher ferritin levels than pre-menopausal women. The above reference interval is based on pre-menopausal women. Performing Location LAB[facility]ATORY [facility] [place] - [address] [place] [address]
--- OUTSIDE RECORDS SUMMARY | 2023-12-22 05:53 | External Medical Summary ---
Author Name Unknown Address Unknown Organization [id number]:LAB[facility]ATORY [facility] [place] - [address] [place] [address] Laboratory Report Ordering Provider Test Date Status TYLER WRIGHT 06/30/2023 11:06:29 Final Normal: <30 mg/g creatinine< br/>High: 30-300 mg/g creatinine
Very High: >300 mg/g creatinine
Nephrotic: >2200 mg/g creatinine Observation Date Value Abnormality Reference (Units ) Status Albumin, Urine 06/30/2023 11:06:29 9.95 (mg/dL) Final Creatinine, Urine 06/30/2023 11:06:29 349 (mg/dL) Final Albumin/Creatinine [Mass Ratio] in Urine 06/30/2023 11:06:29 29 <30 (mg/g Creat) Final Performing Location LABORATORY [facility] [place] - [address] [place] [address]
--- OUTSIDE RECORDS SUMMARY | 2023-12-22 05:53 | External Medical Summary | Summary of Care ---
Author Name Unknown Organization [facility] Address [address] [place] [address] Phone [phone] Care Team Providers Care Checkout Supervisor Name Role Phone Jasson Denney MD Primary Care Provide r Reason for Visit * Reason Comments Outpatient Testing Encounter Details Date Type Department Care Team (Late st Contact Info) Description 07/17/2023 3:00 PM EST Laboratory Laboratory [facility] [address] [place] [phone] [facility] [place] [address] [place] [address] Malignant neoplasm of left breast in female, estrogen receptor positive (HCC); Anemia; Encounter for long-term (current) use of medications Allergies Active Allergy Reactions Criticality Noted Date Comments Adhesive Tape 04/11/2006 Latex 06/06/2022 Other reaction(s): rash/itchy documented as of this encounter (statuses as of 07/17/2023) Medications Medication Sig Dispensed Refills Start Date [...] 24 Hour (Imdur)Indications :Coronary artery disease involving [place] coronary artery of [place] heart without angina pectoris TAKE 1 TABLET [...] as of this encounter (statuses as of 07/17/2023) Active Problems Problem Noted Date Diagnosed Date Encounter for antineoplastic chemotherapy 2022 Malignant neoplasm of left b reast in female, estrogen receptor positive 06/28/2022 Postherpetic neuralgia 06/28/2022 Hiatal hernia 08/07/2021 Schatzki's ring 08/07/2021 S/P angioplasty with stent 11/15/2020 Coronary artery disease invo lving [place] heart without angina pectoris 11/15/2020 Cardiac murmur [...] as of this encounter (statuses as of 07/17/2023) Resolved Problems Problem Noted Date Diagnosed Date [...] as of this encounter (statuses as of 07/17/2023) Immunizations Name Administration Dates Next Due COVID-19 mRNA, LNP-s, No Pre serve, 2-Dose Series ([employer]) 08/11/2020,07/21/2020 COVID-19, LNP-s, No Preserve , Dusty-sucrose, Ages 12+ ([employer]) 02/05/2022,08/07/2021 COVID-19, MRNA-LNP, 23-24, P F, 30 MCG/0.3 mL, 12 YRS AND ABOVE, IM ([employer]-Comirnaty) 05/13/2023 Covid-19, Mrna, Lnp-s, Pf, B ivalent, 30 Mcg, IM, 12 yrs and above ([employer]) 06/11/2022 Pneumococcal Conjugate Vacc, 13 Valent (Prevnar) [...] 3:00 PM EST Office Visit Family Medicine [address] [place] [phone] Ruma Childers PA-C [address] [place] [address] [place] [address] 08/04/2023 1:00 PM EST Imaging Radiology [facility] [address] [place] [address] 08/12/2023 1:40 PM EST Office Visit Family Medicine [address] [place] [phone] Jasson Denney MD [address] [place] [address] [place] [address] 10/13/2023 2:00 PM EDT Laboratory Laboratory [address] [place] [phone] [place] [address] 10/13/2023 2:20 PM EDT Office Visit Nephrology [address] [place] [address] Maritza Parrish MD [address] [facility] [place] [address] 10/16/2023 3:30 PM EDT Office Visit Hematology/Oncology [facility] [address] [place] [address] Abena Xiong CRNP [address] [place] [address] [place] [address] 04/05/2024 1:20 PM EDT Office Visit Dermatology [address] [place] [address] Melanie Frank PA-C [address] [place] [address] [place] [address] Pending Results Name Type Priority Associated Diagnoses Date /Time COMPREHENSIVE METABOLIC PANEL Lab STAT Malignant neoplasm of left breast in female, estrogen receptor positive (HCC) 07/17/2023 3:11 PM EST FOLIC ACID Lab STAT Malignant neoplasm of left breast in female, estrogen receptor positive (HCC) Anemia Encounter for long-term (current) use of medications 07/17/2023 3:11 PM EST LD Lab STAT Malignant neoplasm of left breast in female, estrogen receptor positive (HCC) Anemia 07/17/2023 3:11 PM EST RETICULOCYTE PANEL Lab STAT Malignant neoplasm of left breast in female, estrogen receptor positive (HCC) Anemia 07/17/2023 3:11 PM EST HAPTOGLOBIN Lab STAT Malignant neoplasm of left breast in female, estrogen receptor positive (HCC) Anemia 07/17/2023 3:11 PM EST FERRITIN Lab STAT Malignant neoplasm of left breast in female, estrogen receptor positive (HCC) Anemia 07/17/2023 3:11 PM EST IRON SCREEN, INCLUDING TIBC Lab STAT Malignant neoplasm of left breast in female, estrogen receptor positive (HCC) Anemia 07/17/2023 3:11 PM EST Health Maintenance Due Date Last Done Comments Alpha-1 Antitrypsin 1958 DTaP,Tdap,and Td Vaccines (1 - Tdap) 1959 Zoster Vaccines (1 of 2) 1990 *COPD SEVERITY VERIFIED BY PFT 01/02/2018 Depression Screening 08/07/2022 08/07/2021 CKD PHOS USE SMARTSET 76188 07/25/2023 020 02/2023, 01/10/2022, 01/11/2021, Additional history exists O2 ASSESSMENT COMPLETED IN PAST YEAR FOR COPD 08/15/2023 08/14/2022 GFR 12/29/2023 06/30/2023, 100 10/2022, 11/25/2022, Additional history exists HbA1c 03/20/2024 03/20/2023, 10/0 10/2021, 11/01/2020, Additional history exists Albumin/Creatinine Ratio 06/30/2024 024, 07/25/2022, 08/07/2021, Additional history exists CKD HGB USE SMARTSET 40992 07/17/202407/17, 07/17/2023, 06/30/2023, Additional history exists DXA [...] this encounter Medical Devices Implanted Type Area Vocational Rehabilitation Supervisor Device Identifier Shelf Expiration Date Model / Serial / Lot [place] Excluder Aaa Endoprothesis System-07/07/2019 Implanted:07/07/19 20 (Quantity not on file) Graft Description:Multiple implant s from system on same day [id number] Cordis Bx Velocity Cardiac Stent-06/02/2002 Implanted:06/02/20 02 (Quantity not on file) Stent CORDIS LEXA BX VELOCITY [id number] / / [id number] Cordis Bx Velocity Cardiac Stent-01/03/2003 Implanted:01/04/20 03 (Quantity not on file) Stent CORDIS LEXA VELOCITY [id number] / / [id number] documented as of this encounter Procedures Procedure Name Priority Date/Time Associated Diagnosis Comments DIFFERENTIAL, AUTOMATED STAT 07/17/2023 3:11 PM EST Malignant neoplasm of left breast in female, estrogen receptor positive (HCC) CBC STAT 07/17/2023 3:11 PM EST Malignant neoplasm of left breast in female, estrogen receptor positive (HCC) CBC STAT 07/17/2023 3:11 PM EST Malignant neoplasm of left breast in female, estrogen receptor positive (HCC) documented in this encounter Results * (ABNORMAL) DIFFERENTIAL, AUTOMATED (07/17/2023 3:11 PM EST) WBC 8.90 4.00 - 10.80 K/uL 07/17/2023 3:20 PM EST [facility] [place] 56-02 Neutrophils % 76.0(H) 40.0 - 75.0 % 07/17/2023 3:20 PM EST [facility] 56-02 Lymphocytes % 11.1(L) 18.0 - 42.0 % 07/17/2023 3:20 PM EST [facility] 56-02 Monocytes % 9.9 1.0 - 11.0 % 07/17/2023 3:20 PM EST [facility] 56-02 Eosinophils % 2.8 0.0 - 6.0 % 07/17/2023 3:20 PM EST [facility] 56-02 Basophils % 0.2 0.0 - 2.0 % 07/17/2023 3:20 PM EST [facility] 56-02 Absolute Neutrophils 6.76 1.80 - 7.70 K/uL 07/17/2023 3:20 PM EST [facility] 56-02 Absolute Lymphocytes 0.99(L) 1.00 - 4.80 K/ul 07/17/2023 3:20 PM EST [facility] 56-02 Absolute Monocytes 0.88 0.00 - 1.10 K/uL 07/17/2023 3:20 PM EST [facility] 56-02 Absolute Eosinophils 0.25 0.00 - 0.70 K/uL 07/17/2023 3:20 PM EST [facility] 56-02 Absolute Basophils 0.02 0.00 - 0.20 K/uL 07/17/2023 3:20 PM [facility] 56-02 Blood Venous blood specimen / Unknown Venipuncture / Unknown 07/17/2023 3:11 PM EST 07/17/2023 3:11 PM EST Gay Lu MD LAB BLOOD ORDERA BLES [facility] 56-[address] [place] [address] * (ABNORMAL) CBC (07/17/2023 3:11 PM EST) [facility] WBC 8.90 4.00 - 10.80 K/uL 07/17/2023 3:20 PM EST [facility] 56-02 RBC 3.40 3.85 - 5.15 M/uL 07/17/2023 3:20 PM EST [facility] 56- HGB 9.2(L) 12.0 - 15.3 g/dL 07/17/2023 3:20 PM [facility] 56- HCT 30.4(L) 36.0 - 45.2 % 07/17/2023 3:20 PM [facility] 56- MCV 89.4 81.5 - 97.5 fL 07/17/2023 3:20 PM EST [facility] 56- MCH 27.1 27.0 - 34.0 pg 07/17/2023 3:20 PM EST [facility] 56- MCHC 30.3 32.0 - 36.0 g/dL 07/17/2023 3:20 PM [facility] 56- RDW 15.3 11.5 - 15.5 % 07/17/2023 3:20 PM [facility] 56- PLT 285 140 - 400 K/uL 07/17/2023 3:20 PM [facility] 56 MPV 9.5 6.6 - 11.1 fL 07/17/2023 3:20 PM [facility] 56- Blood Venous blood specimen / Unknown Venipuncture / Unknown 07/17/2023 3:11 PM EST 07/17/2023 3:11 PM EST Gay Lu MD LAB BLOOD ORDERA BLES [facility] [address] [place] [address] documented in this encounter Visit Diagnoses Diagnosis Malignant neoplasm of left breast in female, estrogen receptor positive (HCC) Anemia Anemia, unspecified Encounter for long-term (current) use of medications [...] the patient have Health Care Power of Medical Dermatologist? No Healthcare Agents on File Name Relationship Healthcare Agent Relationship Communication Gus Rosenbaum Jr. Adult Child Health Care R epresentative (appointed verbally by patient or by statute hierarchy) Care Teams Checkout Supervisor Relationship Specialty Start Date End Date Jasson Denney MD [address] [place] [address] [place] [phone] PCP - General Family Medicine 03/22/16 documented as of this encounter
--- OUTSIDE RECORDS SUMMARY | 2023-12-22 05:53 | External Medical Summary | Summary of Care ---
Author Name Unknown Organization [facility] Address [address] [facility] [address] Phone [phone] Care Team Providers Care Carpenter General Name Role Phone Jasson Denney MD Primary Care Provide r Reason for Visit * Reason Comments Outpatient Testing Encounter Details Date Type Department Care Team (Late st Contact Info) Description 06/30/2023 10:50 AM EST Laboratory Laboratory [address] [place] [phone] [place] [address] Stage 3b chronic kidney disease (HCC); Malignant neoplasm of left breast in female, estrogen receptor positive, unspecified site of breast ; Dyslipidemia, goal to be determined Allergies Active Allergy Reactions Criticality Noted Date Comments Adhesive Tape 04/11/2006 Latex 06/06/2022 Other reaction(s): rash/itchy documented as of this encounter (statuses as of 06/30/2023) Medications Medication Sig Dispensed Refills Start Date [...] 24 Hour (Imdur)Indications :Coronary artery disease involving [place] coronary artery of [...] as of this encounter (statuses as of 06/30/2023) Active Problems Problem Noted Date Diagnosed Date [...] as of this encounter (statuses as of 06/30/2023) Resolved Problems Problem Noted Date Diagnosed Date [...] as of this encounter (statuses as of 06/30/2023) Immunizations Name Administration Dates Next Due COVID-19 mRNA, LNP-s, No Pre serve, 2-Dose Series ([employer]) 08/11/2020,07/21/2020 COVID-19, LNP-s, No Preserve , Dusty-sucrose, Ages 12+ ([employer]) 02/05/2022,08/07/2021 COVID-19, MRNA-LNP, 23-24, P F, 30 MCG/0.3 mL, 12 YRS AND ABOVE, IM ([employer]-Comirnaty) 05/13/2023 Covid-19, Mrna, Lnp-s, Pf, B ivalent, 30 Mcg, IM, 12 yrs and above ([employer]) 06/11/2022 Pneumococcal Conjugate Vacc, 13 Valent (Prevnar) [...] Care Team (Late st Contact Info) Description 07/01/2023 1:00 PM EST Office Visit Family Medicine [address] [place] [phone] Ruma Childers PA-C [address] [place] [address] [place] [address] 07/07/2023 11:00 AM EST Laboratory Laboratory [address] [place] [phone] [address] [place] [address] 07/17/2023 2:30 PM EST Office Visit Hematology/Oncology [facility] 200 [facility] [place] [address] Abena Xiong CRNP 400 [facility] [place] [address] 08/04/2023 1:00 PM EST Imaging Radiology [address] 132 [facility] [place] [address] 08/12/2023 1:40 PM EST Office Visit Family Medicine [address] [place] [phone] Jasson Denney MD [address] [place] [address] [place] [address] 03/31/2024 3:00 PM EDT Office Visit Nephrology [address] [place] [address] Maritza Parrish MD 200 [facility] [place] [address] 04/05/2024 1:20 PM EDT Office Visit Dermatology [address] [place] [address] Melanie Frank PA-C [address] [place] [address] [place] [phone] Pending Results Name Type Priority Associated Diagnoses Date /Time CBC WITH WBC DIFFERENTIAL Lab Routine Malignant neoplasm of left breast in female, estrogen receptor positive, unspecified site of breast 06/30/2023 11:06 AM EST COMPREHENSIVE METABOLIC PANEL Lab Routine Malignant neoplasm of left breast in female, estrogen receptor positive, unspecified site of breast 06/30/2023 11:06 AM EST URINALYSIS WITH MICROSCOPIC EXAM Lab Routine Stage 3b chronic kidney disease (HCC) 06/30/2023 11:06 AM EST ALBUMIN / CREATININE RATIO, URINE Lab Routine Stage 3b chronic kidney disease (HCC) 06/30/2023 11:06 AM EST LIPID PANEL WITH DIRECT LDL IF TG IS HIGH Lab Routine Dyslipidemia, goal to be determined 06/30/2023 11:06 AM EST CBC Lab Routine Malignant neoplasm of left breast in female, estrogen receptor positive, unspecified site of breast 06/30/2023 11:06 AM EST DIFFERENTIAL, AUTOMATED Lab Routine Malignant neoplasm of left breast in female, estrogen receptor positive, unspecified site of breast 06/30/2023 11:06 AM EST Health Maintenance Due Date Last Done Comments Alpha-1 Antitrypsin 1958 DTaP,Tdap,and Td Vaccines (1 - Tdap) 1959 Zoster Vaccines (1 of 2) 1990 *COPD SEVERITY VERIFIED BY PFT 01/02/2018 Depression Screening 08/07/2022 08/07/2021 Albumin/Creatinine Ratio 07/25/2023 023, 08/07/2021, 01/12/2021, Additional history exists CKD PHOS USE SMARTSET 12759 07/25/202302/2023, 01/10/2022, 01/11/2021, Additional history exists O2 ASSESSMENT COMPLETED IN PAST YEAR FOR COPD 08/15/2023 08/14/2022 GFR 09/19/2023 03/20/2023, 11/14, 11/04/2022, Additional history exists CKD HGB USE SMARTSET 51097 03/20/202403/20, 03/20/2023, 11/25/2022, Additional history exists HbA1c [...] this encounter Medical Devices Implanted Type Area Data Entry Specialist Device Identifier Shelf Expiration Date Model / Serial / Lot [place] Excluder Aaa Endoprothesis System-07/07/2019 Implanted:07/07/19 20 (Quantity not on file) Graft Description:Multiple implant s from system on same day [id number] Cordis Bx Velocity Cardiac Stent-06/02/2002 Implanted:06/02/20 02 (Quantity not on file) Stent CORDIS LEXA BX VELOCITY [id number] / / [id number] Cordis Bx Velocity Cardiac Stent-01/03/2003 Implanted:01/04/20 03 (Quantity not on file) Stent CORDIS LEXA VELOCITY [id number] / / [id number] documented as of this encounter Visit Diagnoses Diagnosis Stage 3b chronic kidney disease (HCC) Malignant neoplasm of left breast in female, estrogen receptor positive, unspecified site of breast Dyslipidemia, goal to be determined Other and [...] the patient have Health Care Power of Explosive Ordnance Disposal Specialist? No Healthcare Agents on File Name Relationship Healthcare Agent Relationship Communication Gus Rosenbaum Jr. Adult Child Health Care R epresentative (appointed verbally by patient or by statute hierarchy) Care Teams Carpenter General Relationship Specialty Start Date End Date Jasson Denney MD [address] [place] [address] [place] [phone] PCP - General Family Medicine 03/22/16 documented as of this encounter
--- OUTSIDE RECORDS SUMMARY | 2023-12-22 05:53 | External Medical Summary | Summary of Care ---
Author Name Unknown Organization [facility] Address [address] [facility] [address] Phone [phone] Care Team Providers Care Irish Moss Gatherer Name Role Phone Jasson Denney MD Primary Care Provide r Reason for Visit * Reason Comments Outpatient Testing Encounter Details Date Type Department Care Team (Late st Contact Info) Description 06/30/2023 10:50 AM EST Laboratory Laboratory [address] [place] [phone] [place] [address] Stage 3b chronic kidney disease (HCC); Malignant [...] 24 Hour (Imdur)Indications :Coronary artery disease involving [place] coronary artery of [place] heart without angina pectoris TAKE 1 TABLET [...] stent 11/15/2020 Coronary artery disease invo lving [place] heart without angina pectoris 11/15/2020 Cardiac murmur [...] mRNA, LNP-s, No Pre serve, 2-Dose Series ([employer]) 08/11/2020,07/21/2020 COVID-19, LNP-s, No Preserve , Dusty-sucrose, Ages 12+ ([employer]) 02/05/2022,08/07/2021 COVID-19, MRNA-LNP, 23-24, P F, 30 MCG/0.3 mL, 12 YRS AND ABOVE, IM ([employer]-Comirnaty) 05/13/2023 Covid-19, Mrna, Lnp-s, Pf, B ivalent, 30 Mcg, IM, 12 yrs and above ([employer]) 06/11/2022 Pneumococcal Conjugate Vacc, 13 Valent (Prevnar) [...] 1:00 PM EST Office Visit Family Medicine [address] [place] [phone] Ruma Childers PA-C [address] [place] [address] [place] [address] 07/07/2023 11:00 AM EST Laboratory Laboratory [address] [place] [phone] [address] [place] [address] 07/17/2023 2:30 PM EST Office Visit Hematology/Oncology [facility] 200 [facility] [place] [address] Abena Xiong CRNP 400 [facility] [place] [address] 08/04/2023 1:00 PM EST Imaging Radiology [address] 132 [facility] [place] [address] 08/12/2023 1:40 PM EST Office Visit Family Medicine [address] [place] [phone] Jasson Denney MD [address] [place] [address] [place] [address] 03/31/2024 3:00 PM EDT Office Visit Nephrology [address] [place] [address] Maritza Parrish MD 200 [facility] [place] [address] 04/05/2024 1:20 PM EDT Office Visit Dermatology [address] [place] [address] Melanie Frank PA-C [address] [place] [address] [place] [phone] Pending Results Name Type Priority Associated Diagnoses [...] Additional history exists CKD PHOS USE SMARTSET 64258 07/25/202302/2023, 01/10/2022, 01/11/2021, Additional history exists O2 ASSESSMENT COMPLETED IN PAST YEAR FOR COPD 08/15/2023 08/14/2022 GFR 09/19/2023 03/20/2023, 11/14, 11/04/2022, Additional history exists CKD HGB USE SMARTSET 39260 03/20/202403/20, 03/20/2023, 11/25/2022, Additional history exists HbA1c [...] encounter Medical Devices Implanted Type Area Child Care Counselor Device Identifier Shelf Expiration Date Model / Serial / Lot [place] Excluder Aaa Endoprothesis System-07/07/2019 Implanted:07/07/19 20 (Quantity not on file) Graft Description:Multiple implant s from system on same day [id number] Cordis Bx Velocity Cardiac Stent-06/02/2002 Implanted:06/02/20 02 (Quantity not on file) Stent CORDIS LEXA BX VELOCITY [id number] / / [id number] Cordis Bx Velocity Cardiac Stent-01/03/2003 Implanted:01/04/20 03 (Quantity not on file) Stent CORDIS LEXA VELOCITY [id number] / / [id number] documented as of this encounter Visit Diagnoses [...] the patient have Health Care Power of Newswriter? No Healthcare Agents on File Name Relationship Healthcare Agent Relationship Communication Gus Rosenbaum Jr. Adult Child Health Care R epresentative (appointed verbally by patient or by statute hierarchy) Care Teams Irish Moss Gatherer Relationship Specialty Start Date End Date Jasson Denney MD [address] [place] [address] [place] [phone] PCP - General Family Medicine 03/22/16 documented as of this encounter
--- OUTSIDE RECORDS SUMMARY | 2023-12-22 05:53 | External Medical Summary | Summary of Care ---
Author Name Unknown Organization [facility] Address [address] [facility] [place] [address] Phone [phone] Care Team Providers Care Card Grinder Name Role Phone Jasson Denney MD Primary Care Provide r Reason for Visit * Reason Onset Date Comments Test Results 07/07/2023 Needs apppointme nt Encounter Details Date Type Department Care Team (Late st Contact Info) Description 07/07/2023 Telephone Nephrology, Edy [place] 200 [facility] [place] [address] ZemaitisValery PA-C [address] [facility] [place] [address] Test Results (Needs apppointment) Allergies Active Allergy Reactions Criticality Noted Date Comments Adhesive Tape 04/11/2006 Latex 06/06/2022 Other reaction(s): rash/itchy documented as of this encounter (statuses as of 07/07/2023) Medications Medication Sig Dispensed Refills Start Date [...] 24 Hour (Imdur)Indications :Coronary artery disease involving nez perce coronary artery of nez perce heart without angina pectoris TAKE 1 TABLET [...] as of this encounter (statuses as of 07/07/2023) Active Problems Problem Noted Date Diagnosed Date Encounter for antineoplastic chemotherapy 2022 Malignant neoplasm of left b reast in female, estrogen receptor positive 06/28/2022 Postherpetic neuralgia 06/28/2022 Hiatal hernia 08/07/2021 Schatzki's ring 08/07/2021 S/P angioplasty with stent 11/15/2020 Coronary artery disease invo lving nez perce heart without angina pectoris 11/15/2020 Cardiac murmur [...] as of this encounter (statuses as of 07/07/2023) Resolved Problems Problem Noted Date Diagnosed Date [...] as of this encounter (statuses as of 07/07/2023) Immunizations Name Administration Dates Next Due COVID-19 mRNA, LNP-s, No Pre serve, 2-Dose Series ([employer]) 08/11/2020,07/21/2020 COVID-19, LNP-s, No Preserve , Dusty-sucrose, Ages 12+ (Pfizer) 02/05/2022,08/07/2021 COVID-19, MRNA-LNP, 23-24, P F, 30 MCG/0.3 mL, 12 YRS AND ABOVE, IM (meets-Comirnat) 05/13/2023 Covid-19, Mrna, Lnp-s, Pf, B ivalent, 30 Mcg, IM, 12 yrs and above ([employer]) 06/11/2022 Pneumococcal Conjugate Vacc, 13 Valent (Prevnar) [...] Telephone Encounter - Charity Bearden RN - 07/07/2023 11:37 AM EST TE with pt regarding lab results. Keypunch Operator- please find follow up appointment with Dr Parrish at [facility] in August/September as requested by provider. Current appointment is scheduled for March. * Telephone Encounter - Charity Bearden RN - 07/07/2023 11:35 AM EST ----- Message from Valery Urena PA-C sent at 07/04/2023 12:23 PM EST ----- Renal function appears stable at 32. Albumin lvls normal but have tripled since last yr. Please assist patient with sooner appt -current appt set for 03/2024 and was advised 4 mon fu (approx August 2023) documented in this encounter Plan of Treatment Upcoming Encounters Date Type Department Care Team (Late st Contact Info) Description 07/17/2023 2:30 PM EST Office Visit Hematology/Oncology [facility] [address] [facility] [place] [address] Abena Xiong CRNP 400 [facility] [place] [address] 07/24/2023 3:00 PM EST Office Visit Family Medicine [address] [place] [phone] Ruma Childers PA-C [address] [place] [address] [place] [address] 08/04/2023 1:00 PM EST Imaging Radiology [address] 132 [facility] [place] [address] 08/12/2023 1:40 PM EST Office Visit Family Medicine [address] [place] [phone] Jasson Denney MD [address] [place] [address] [place] [address] 03/31/2024 3:00 PM EDT Office Visit Nephrology [address] [place] [address] Maritza Parrish MD [address] [place] [address] [place], [place] [address] 04/05/2024 1:20 PM EDT Office Visit Dermatology [address] [place] [address] Melanie Frank PA-C [address] [place] [address] [place] [address] Health Maintenance Due Date Last Done Comments Alpha-1 Antitrypsin 1958 DTaP,Tdap,and Td Vaccines (1 - Tdap) 1959 Zoster Vaccines (1 of 2) 1990 *COPD SEVERITY VERIFIED BY PFT 01/02/2018 Depression Screening 08/07/2022 08/07/2021 CKD PHOS USE SMARTSET 33825 07/25/202302/2023, 01/10/2022, 01/11/2021, Additional history exists O2 ASSESSMENT COMPLETED IN PAST YEAR FOR COPD 08/15/2023 08/14/2022 GFR 12/29/2023 06/30/2023, 10/2022, 11/25/2022, Additional history exists HbA1c 03/20/2024 03/20/2023, 10/2021, 11/01/2020, Additional history exists Albumin/Creatinine Ratio 06/30/2024 024, 07/25/2022, 08/07/2021, Additional history exists CKD HGB USE SMARTSET 32724 06/30/202406/30, 06/30/2023, 03/20/2023, Additional history exists DXA Scan 05/31/2026 05/31/2019, [...] this encounter Medical Devices Implanted Type Area Diagnostic Imaging Manager Device Identifier Shelf Expiration Date Model / Serial / Lot [place] Ari Excluder Aaa Endoprothesis System-07/07/2019 Implanted:07/07/19 20 (Quantity not on file) Graft Description:Multiple implant s from system on same day [id number] Cordis Bx Velocity Cardiac Stent-06/02/2002 Implanted:06/02/20 02 (Quantity not on file) Stent CORDIS LEXA BX VELOCITY [id number] / / [id number] Cordis Bx Velocity Cardiac Stent-01/03/2003 Implanted:01/04/20 03 (Quantity not on file) Stent CORDIS LEXA VELOCITY [id number] / / [id number] documented as of this encounter Advance Directives [...] the patient have Health Care Power of Electronics Repair Technician? No Healthcare Agents on File Name Relationship Healthcare Agent Relationship Communication Gus Rosenbaum Jr. Adult Child Health Care R epresentative (appointed verbally by patient or by statute hierarchy) Care Teams Card Grinder Relationship Specialty Start Date End Date Jasson Denney MD [address] [place] [address] [place] [phone] PCP - General Family Medicine 03/22/16 documented as of this encounter
--- OUTSIDE RECORDS SUMMARY | 2023-12-22 05:53 | External Medical Summary ---
Author Name Unknown Address Unknown Organization [id number]:LABORATORY [facility] [place] - [address] [place] [address] Laboratory Report Ordering Provider Test Date Status MARIAN DAVIS 07/17/2023 15:11:51 Final Observation Date Value Abnormality Reference (Units ) Status Iron 07/17/2023 15:11:51 36 33-151 (ug/dL) Final Iron-binding capacity 07/17/2023 15:11:51 352 250-425 (ug/dL) Final Transferrin Sat % 07/17/2023 15:11:51 10 Below low normal 15-55 (%) Final Performing Location LABORATORY C - [address] [place] [address]
--- OUTSIDE RECORDS SUMMARY | 2023-12-22 05:53 | External Medical Summary | Summary of Care ---
Author Name Unknown Organization [facility] Address [address] [place] [facility] [place] [place] [address] Phone [phone] Care Team Providers Care Corporate Account Executive Name Role Phone Jasson Denney MD Primary Care Provide r Reason for Visit * Reason Onset Date Comments Test Results Lab 07/03/2023 Encounter Details Date Type Department Care Team (Late st Contact Info) Description 07/03/2023 Telephone Hematology/Oncology Treatment, [address] [address] Gay Lu MD 200 [place] [address] Test Results Lab Allergies Active Allergy Reactions Criticality Noted Date Comments Adhesive Tape 04/11/2006 Latex 06/06/2022 Other reaction(s): rash/itchy documented as of this encounter (statuses as of 07/03/2023) Medications Medication Sig Dispensed Refills Start Date [...] 24 Hour (Imdur)Indications :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 TAKE 1 TABLET [...] as of this encounter (statuses as of 07/03/2023) Active Problems Problem Noted Date Diagnosed Date Encounter for antineoplastic chemotherapy 2022 Malignant neoplasm of left b reast in female, estrogen receptor positive 06/28/2022 Postherpetic neuralgia 06/28/2022 Hiatal hernia 08/07/2021 Schatzki's ring 08/07/2021 S/P angioplasty with stent 11/15/2020 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 11/15/2020 Cardiac murmur [...] as of this encounter (statuses as of 07/03/2023) Resolved Problems Problem Noted Date Diagnosed Date [...] as of this encounter (statuses as of 07/03/2023) Immunizations Name Administration Dates Next Due COVID-19 mRNA, LNP-s, No Pre serve, 2-Dose Series ([employer]) 08/11/2020,07/21/2020 COVID-19, LNP-s, No Preserve , Dusty-sucrose, Ages 12+ (Pfizer) 02/05/2022,08/07/2021 COVID-19, MRNA-LNP, 23-24, P F, 30 MCG/0.3 mL, 12 YRS AND ABOVE, IM ([employer]-Comirnaty) 05/13/2023 Covid-19, Mrna, Lnp-s, Pf, B ivalent, [...] encounter Miscellaneous Notes * Telephone Encounter - Hansa Marcial OSA - 07/03/2023 11:16 AM EST Updated appt note per nursing. Done. * Telephone Encounter - Reshma Bhat RN - 07/03/2023 11:09 AM EST Patient has lab appt 07/07. Lab orders placed. Scheduling: please update lab appt note 07/07 with lab work requested by Dr Lu in result note. Thanks! * Telephone Encounter - Reshma Bhat RN - 07/03/2023 11:09 AM EST ----- Message from Gay Lu MD sent at 07/01/2023 8:39 AM EST ----- She need anemia workup before next visit with Abena including CBCD, folic acid, retic count, LDH,ferritin iron screen and erythropoietin level. documented in this encounter Plan of Treatment Upcoming Encounters Date Type Department Care Team (Late st Contact Info) Description 07/07/2023 11:00 AM EST Laboratory Laboratory [address] [place] [phone] [place] [address] 07/17/2023 2:30 PM EST Office Visit Hematology/Oncology [facility] 200 [facility] [place] [address] Abena Xiong CRNP [address] [place] [address] [place] [address] 07/24/2023 3:00 PM EST Office Visit Family Medicine [address] [place] [phone] Ruma Childers PA-C [address] [place] [address] [place] [address] 08/04/2023 1:00 PM EST Imaging Radiology [address] 132 [facility] [place] [address] 08/12/2023 1:40 PM EST Office Visit Family Medicine [address] [place] [phone] Jasson Denney MD [address] [place] [address] [place] [address] 03/31/2024 3:00 PM EDT Office Visit Nephrology [address] [place] [address] Maritza Parrish MD 200 [facility] [place] [address] 04/05/2024 1:20 PM EDT Office Visit Dermatology [address] [place] [address] Melanie Frank PA-C [address] [place] [address] [place] [address] Scheduled Orders Name Type Priority Associated Diagnoses Orde r Schedule CBC WITH WBC DIFFERENTIAL Lab STAT Malignant neoplasm of left breast in female, estrogen receptor positive Anemia Expected: 07/08/2023 (Approximate), Expires: 07/03/2024 FOLIC ACID Lab STAT Malignant neoplasm of left breast in female, estrogen receptor positive Anemia Encounter for long-term (current) use of medications Expected: 07/08/2023 (Approximate), Expires: 07/03/2024 LD Lab STAT Malignant neoplasm of left breast in female, estrogen receptor positive Anemia Expected: 07/08/2023 (Approximate), Expires: 07/03/2024 RETICULOCYTE PANEL Lab STAT Malignant neoplasm of left breast in female, estrogen receptor positive Anemia Expected: 07/08/2023 (Approximate), Expires: 07/03/2024 HAPTOGLOBIN Lab STAT Malignant neoplasm of left breast in female, estrogen receptor positive Anemia Expected: 07/08/2023 (Approximate), Expires: 07/03/2024 FERRITIN Lab STAT Malignant neoplasm of left breast in female, estrogen receptor positive Anemia Expected: 07/08/2023 (Approximate), Expires: 07/03/2024 IRON SCREEN, INCLUDING TIBC Lab STAT Malignant neoplasm of left breast in female, estrogen receptor positive Anemia Expected: 07/08/2023 (Approximate), Expires: 07/03/2024 Health Maintenance Due Date Last Done Comments Alpha-1 Antitrypsin 1958 DTaP,Tdap,and Td Vaccines (1 - Tdap) 1959 Zoster Vaccines (1 of 2) 1990 *COPD SEVERITY VERIFIED BY PFT 01/02/2018 Depression Screening 08/07/2022 08/07/2021 CKD PHOS USE SMARTSET 37864 07/25/2023/0 02/2023, 01/10/2022, 01/11/2021, Additional history exists O2 ASSESSMENT COMPLETED IN PAST YEAR FOR COPD 08/15/2023 08/14/2022 GFR 12/29/2023 06/30/2023, 0 10/2022, 11/25/2022, Additional history exists HbA1c 03/20/2024 03/20/2023, 10/2021, 11/01/2020, Additional history exists Albumin/Creatinine Ratio 06/30/2024 024, 07/25/2022, 08/07/2021, Additional history exists CKD HGB USE SMARTSET 18040 06/30/202406/30, 06/30/2023, 03/20/2023, Additional history exists DXA [...] this encounter Medical Devices Implanted Type Area Sports Marketer Device Identifier Shelf Expiration Date Model / Serial / Lot [place] Excluder Aaa Endoprothesis System-07/07/2019 Implanted:07/07/19 20 (Quantity not on file) Graft Description:Multiple implant s from system on same day [id number] Cordis Bx Velocity Cardiac Stent-06/02/2002 Implanted:06/02/20 02 (Quantity not on file) Stent CORDIS LEXA BX VELOCITY [id number] / / [id number] Cordis Bx Velocity Cardiac Stent-01/03/2003 Implanted:01/04/20 03 (Quantity not on file) Stent CORDIS LEXA VELOCITY [id number] / / [id number] documented as of this encounter Visit Diagnoses Diagnosis Malignant neoplasm of left breast in female, estrogen receptor positive- Primary Anemia Anemia, unspecified Encounter for long-term (current) [...] the patient have Health Care Power of Radio Mechanic? No Healthcare Agents on File Name Relationship Healthcare Agent Relationship Communication Gus Rosenbaum Jr. Adult Child Health Care R epresentative (appointed verbally by patient or by statute hierarchy) Care Teams Corporate Account Executive Relationship Specialty Start Date End Date Jasson Denney MD [address] [place] [address] [place] [address] PCP - General Family Medicine 03/22/16 documented as of this encounter
--- OUTSIDE RECORDS SUMMARY | 2023-12-22 05:53 | External Medical Summary ---
Author Name Unknown Address Unknown Organization K01:LAB[facility]ATORY [facility] [place] - [address] [place] [address] Laboratory Report Ordering Provider Test Date Status MARIAN DAVIS 07/17/2023 15:11:51 Final Observation Date Value Abnormality Reference (Units ) Status Haptoglobin 07/17/2023 15:11:51 306 Above high normal 30-200 (mg/dL) Final Performing Location LABORATORY [facility] - [address] [place] [address]
--- OUTSIDE RECORDS SUMMARY | 2023-12-22 05:53 | External Medical Summary ---
Author Name Unknown Address Unknown Organization K01:LABORATORY [facility] [place] - [address] [facility] [place] [address] Laboratory Report Ordering Provider Test Date Status FRAN TYSON 06/30/2023 11:06:29 Final Observation Date Value Abnormality Reference (Units ) Status Triglyceride 06/30/2023 11:06:29 114 <=174 ( mg/dL) Final Triglyceride Reference Range s (mg/dL):
<150 Acceptable
150-174 Borderline high
175-499 High
>=500 Very high Cholesterol 06/30/2023 11:06:29 114 <200 (mg /dL) Final Total Cholesterol Reference Ranges (mg/dL):
<200 Desirable
200-239 Borderline high
>=240 High HDL 06/30/2023 11:06:29 68 >49 (mg/dL ) Final HDL Cholesterol Reference Ra nges (mg/dL):
>=60 High (Desirable)
<50 Low (Undesirable) For Females
<40 Low (Undesirable) For Males NON-HDL CHOLESTEROL 06/30/2023 11:06:29 46 <=159 (mg/dL) Final Non-HDL Cholesterol Referenc e Range (mg/dL):
<100 Target level for high risk ASCVD patient
<130 Optimal for general population
130-159 Near optimal for general population
160-189 Borderline High
190-219 High
>=220 Very High LDL, (calculated) 06/30/2023 11:06:29 23 <= 129 (mg/dL) Final LDL Cholesterol Reference Ra nges (mg/dL):
<70 Target level for high risk ASCVD patient
<100 Optimal for general population
100-129 Near optimal for general population
130-159 Borderline high
160-189 High
>=190 Very high Performing Location LABORATORY [facility] [place] - [address] [facility] [address]
--- OUTSIDE RECORDS SUMMARY | 2023-12-22 05:53 | External Medical Summary ---
Author Name Unknown Address Unknown Organization K01:[facility] [place] [address] [facility] [address] Laboratory Report Ordering Provider Test Date Status TYLER WRIGHT 06/30/2023 11:06:29 Final Observation Date Value Abnormality Reference (Units ) Status Color of Urine by Auto 06/30/2023 11:06:29 Yellow Light Yellow, Yellow, Dark Yellow Final Clarity, Urine 06/30/2023 11:06:29 Slightly Cloudy Abnormal Clear Final Glucose [Mass/volume] in Urine by Automated test strip 06/30/2023 11:06:29 100 Abnormal Negative (mg/dL) Final Bilirubin.total [Presence] in Urine by Automated test strip 06/30/2023 11:06:29 Negative Negative Final Ketones [Mass/volume] in Urine by Automated test strip 06/30/2023 11:06:29 Negative Negative (mg/dL) Final Specific gravity, Urine 06/30/2023 11:06:29 1.028 1.003-1.030 Final Hemoglobin [Presence] in Urine by Automated test strip 06/30/2023 11:06:29 Negative Negative Final pH, Urine 06/30/2023 11:06:29 5.5 5.0-7.5 (Units) Final Protein [Mass/volume] in Urine by Automated test strip 06/30/2023 11:06:29 100 Abnormal Negative (mg/dL) Final Urobilinogen [Mass/volume] in Urine by Automated test strip 06/30/2023 11:06:29 0.2 0.2, 1.0 (mg/dL) Final Nitrite [Presence] in Urine by Automated test strip 06/30/2023 11:06:29 Negative Negative Final Leukocyte esterase [Presence] in Urine by Automated test strip 06/30/2023 11:06:29 Negative Negative Final RBC, Urine 06/30/2023 11:06:29 0-2 0-2 (/HPF) Final WBC, Urine 06/30/2023 11:06:29 3-5 Abnormal 0-2 (/HPF) Final Bacteria [#/area] in Urine sediment by Microscopy high power field 06/30/2023 11:06:29 26-50 Abnormal 0-25 (/HPF) Final Calcium oxalate crystals [#/area] in Urine sediment by Microscopy high power field 06/30/2023 11:06:29 20-29 Abnormal None (/HPF) Final Transitional cells [#/area] in Urine sediment by Microscopy high power field 06/30/2023 11:06:29 1-4 Abnormal None (/HPF) Final Annotation Comment 06/30/2023 11:06:29 Final Microscopic results may be i naccurate due to inadequate urine volume.
Performing Location LAB[facility]ORY [facility] [place] [address] [facility] [address]
--- OUTSIDE RECORDS SUMMARY | 2023-12-22 05:53 | External Medical Summary ---
Author Name Unknown Address Unknown Organization K01:[facility]ATORY [facility] [place] - [address] [place] [address] Laboratory Report Ordering Provider Test Date Status MARIAN DAVIS 07/17/2023 15:11:51 Final Observation Date Value Abnormality Reference (Units ) Status Folic Acid 07/17/2023 15:11:51 >20.0 >4.5 (ng/ mL) Final Performing Location LABORATORY [facility] [place] - [address] [place] [address]
--- OUTSIDE RECORDS SUMMARY | 2023-12-22 05:53 | External Medical Summary ---
Author Name Unknown Address Unknown Organization K01:[place] [facility] [place] [facility] [address] [place] [address] Laboratory Report Ordering Provider Test Date Status MARIAN DAVIS 07/17/2023 15:11:51 Final Observation Date Value Abnormality Reference (Units ) Status Retic, % (auto) 07/17/2023 15:11:51 1.90 0.80-1.90 (%) Final Reticulocytes, Absolute 07/17/2023 15:11:51 62.7 31.3-100.1 (K/uL) Final Reticulocyte fraction, immature 07/17/2023 15:11:51 25.1 Above high normal 2.5-20.6 (%) Final Reticulocyte HGB 07/17/2023 15:11:51 26.2 Below low normal 29.7-37.4 (pg) Final Performing Location [place] [facility] [place] [facility] [place] [address]
--- OUTSIDE RECORDS SUMMARY | 2023-12-22 05:53 | External Medical Summary ---
Author Name Unknown Address Unknown Organization K01:[place] [facility] [place] [address] [facility] [place] [address] Laboratory Report Ordering Provider Test Date Status MARIAN DAVIS 06/30/2023 11:06:29 Final Observation Date Value Abnormality Reference (Units ) Status BUN 06/30/2023 11:06:29 30 Above high normal 6-20 (mg/dL) Final Creatinine 06/30/2023 11:06:29 1.6 Above high normal 0.5-1.0 (mg/dL) Final Glomerular filtration rate/1.73 sq M.predicted [Volume Rate/Area] in Serum, Plasma or Blood by Creatinine-based formula (CKD-EPI) 06/30/2023 11:06:29 32 Below low normal >=60 (mL/min) Final eGFR is calculated based on the CKD-EPI 2020 equation SODIUM 06/30/2023 11:06:29 139 135-146 (m mol/L) Final Potassium 06/30/2023 11:06:29 4.3 3.5-5.1 (m mol/L) Final Cl 06/30/2023 11:06:29 108 Above high normal 98 -107 (mmol/L) Final CO2 06/30/2023 11:06:29 21 Below low normal 22- 32 (mmol/L) Final Anion gap 06/30/2023 11:06:29 10 7-15 (mmol /L) Final Glucose 06/30/2023 11:06:29 115 70-120 (mg /dL) Final Albumin 06/30/2023 11:06:29 4.0 3.8-5.0 (g /dL) Final AST (Aspartate aminotransferase) 06/30/2023 11:06:29 15 10-35 (U/L) Fin al Alk Phos 06/30/2023 11:06:29 72 35-130 (U/ L) Final Bilirubin, Total 06/30/2023 11:06:29 0.2 <=1 .2 (mg/dL) Final Calcium 06/30/2023 11:06:29 9.7 8.4-10.2 ( mg/dL) Final Protein 06/30/2023 11:06:29 6.3 6.0-8.3 (g /dL) Final ALT (Alanine aminotransferase) 06/30/2023 11:06:29 20 10-35 (U/L) Fritz zhang Performing Location [facility] [facility] [place] [address] [facility] [address]
--- OUTSIDE RECORDS SUMMARY | 2023-12-22 05:53 | External Medical Summary | Summary of Care ---
Author Name Unknown Organization [facility] Address [address] [facility] [place] [address] Phone [phone] Care Team Providers Care Cpa Tax Name Role Phone Jasson Denney MD Primary Care Provide r Reason for Visit * Reason Onset Date Comments Test Results Lab 07/03/2023 Encounter Details Date Type Department Care Team (Late st Contact Info) Description 07/03/2023 Telephone Hematology/Oncology Treatment, [address] [address] Gay Lu MD [address] [place] [address] Test Results Lab Allergies Active Allergy Reactions [...] 24 Hour (Imdur)Indications :Coronary artery disease involving [place] coronary artery [...] mRNA, LNP-s, No Pre serve, 2-Dose Series (Greener Expressions) 08/11/2020,07/21/2020 COVID-19, LNP-s, No Preserve , Dusty-sucrose, Ages 12+ (Pfizer) 02/05/2022,08/07/2021 COVID-19, MRNA-LNP, 23-24, P F, 30 MCG/0.3 mL, 12 YRS AND ABOVE, IM (City Voice-Comirnaty) 05/13/2023 Covid-19, Mrna, Lnp-s, Pf, B ivalent, [...] Description 07/07/2023 11:00 AM EST Laboratory Laboratory [address] [place] [phone] [place] [address] 07/17/2023 2:30 PM EST Office Visit Hematology/Oncology [facility] [address] [facility] [place] [address] Abena Xiong CRNP [address] [place] [address] [place] [address] 07/24/2023 3:00 PM EST Office Visit Family Medicine [address] [place] [phone] Ruma Childers PA-C [address] [place] [address] [place] [address] 08/04/2023 1:00 PM EST Imaging Radiology [address] [facility] [place] [address] 08/12/2023 1:40 PM EST Office Visit Family Medicine [address] [place] [phone] Jasson Denney MD [address] [place] [address] [place] [address] 03/31/2024 3:00 PM EDT Office Visit Nephrology [address] [place] [address] Maritza Parrish MD 200 [facility] [place] [address] 04/05/2024 1:20 PM EDT Office Visit Dermatology [address] [place] [address] Melanie Frank PA-C [address] [place] [address] [place] [address] Scheduled Orders Name Type Priority Associated Diagnoses Orde r Schedule CBC WITH WBC DIFFERENTIAL Lab STAT Malignant neoplasm of left breast in female, estrogen receptor positive (HCC) Anemia Expected: 07/08/2023 (Approximate), Expires: 07/03/2024 FOLIC ACID Lab STAT Malignant neoplasm of left breast in female, estrogen receptor positive (HCC) Anemia Encounter for long-term (current) use of medications Expected: 07/08/2023 (Approximate), Expires: 07/03/2024 LD Lab STAT Malignant neoplasm of left breast in female, estrogen receptor positive (HCC) Anemia Expected: 07/08/2023 (Approximate), Expires: 07/03/2024 RETICULOCYTE PANEL Lab STAT Malignant neoplasm of left breast in female, estrogen receptor positive (HCC) Anemia Expected: 07/08/2023 (Approximate), Expires: 07/03/2024 HAPTOGLOBIN Lab STAT Malignant neoplasm of left breast in female, estrogen receptor positive (HCC) Anemia Expected: 07/08/2023 (Approximate), Expires: 07/03/2024 FERRITIN Lab STAT Malignant neoplasm of left breast in female, estrogen receptor positive (HCC) Anemia Expected: 07/08/2023 (Approximate), Expires: 07/03/2024 IRON SCREEN, INCLUDING TIBC Lab STAT Malignant neoplasm of left breast in female, estrogen receptor positive (HCC) Anemia Expected: 07/08/2023 (Approximate), Expires: 07/03/2024 Health Maintenance Due Date Last Done Comments Alpha-1 Antitrypsin 1958 DTaP,Tdap,and Td Vaccines (1 - Tdap) 1959 Zoster Vaccines (1 of 2) 1990 *COPD SEVERITY VERIFIED BY PFT 01/02/2018 Depression Screening 08/07/2022 08/07/2021 CKD PHOS USE SMARTSET 31113 07/25/2023 02/0 02/2023, 01/10/2022, 01/11/2021, Additional history exists O2 ASSESSMENT COMPLETED IN PAST YEAR FOR COPD 08/15/2023 08/14/2022 GFR 12/29/2023 06/30/2023, 100 10/2022, 11/25/2022, Additional history exists HbA1c 03/20/2024 03/20/2023, 100 10/2021, 11/01/2020, Additional history exists Albumin/Creatinine Ratio 06/30/2024 024, 07/25/2022, 08/07/2021, Additional history exists CKD HGB USE SMARTSET 33474 06/30/202406/30, 06/30/2023, 03/20/2023, Additional history exists DXA [...] this encounter Medical Devices Implanted Type Area Orchestra Leader Device Identifier Shelf Expiration Date Model / Serial / Lot [place] Excluder Aaa Endoprothesis System-07/07/2019 Implanted:07/07/19 20 (Quantity not on file) Graft Description:Multiple implant s from system on same day [id number] Cordis Bx Velocity Cardiac Stent-06/02/2002 Implanted:06/02/20 02 (Quantity not on file) Stent CORDIS LEXA BX VELOCITY [id number] / / [id number] Cordis Bx Velocity Cardiac Stent-01/03/2003 Implanted:01/04/20 03 (Quantity not on file) Stent CORDIS LEXA VELOCITY [id number] / / [id number] documented as of this encounter Visit Diagnoses Diagnosis Malignant neoplasm of left breast in female, estrogen receptor positive (HCC)- Primary Anemia Anemia, unspecified Encounter for long-term [...] the patient have Health Care Power of Program Mgr? No Healthcare Agents on File Name Relationship Healthcare Agent Relationship Communication Gus Rosenbaum Jr. Adult Child Health Care R epresentative (appointed verbally by patient or by statute hierarchy) Care Teams Cpa Tax Relationship Specialty Start Date End Date Jasson Denney MD [address] [place] [address] [place] [address] PCP - General Family Medicine 03/22/16 documented as of this encounter
--- OUTSIDE RECORDS SUMMARY | 2023-12-22 05:53 | External Medical Summary ---
Author Name Unknown Address Unknown Organization [id number][place] [facility] [place] [address] [facility] [place] [address] Laboratory Report Ordering Provider Test Date Status MARIAN DAVIS 06/30/2023 11:06:29 Final Observation Date Value Abnormality Reference (Units ) Status SYNC LEUKOCYTES IN BLOOD BY AUTOMATED COUNT 06/30/2023 11:06:29 7.32 4.00-10.80 (K/uL) Final Segs 06/30/2023 11:06:29 77.6 Above high normal 40.0-75.0 (%) Final Lymphs % 06/30/2023 11:06:29 10.0 Below low normal 18.0-42.0 (%) Final Monos 06/30/2023 11:06:29 7.0 1.0-11.0 (%) Final Eosinophils 06/30/2023 11:06:29 3.0 0.0-6.0 (%) Final Basos 06/30/2023 11:06:29 1.0 0.0-2.0 (%) Final Immature Granulocyte, Percent 06/30/2023 11:06:29 1.4 0.0-2.0 (%) Final Absolute Segs 06/30/2023 11:06:29 5.69 1.80-7.70 (K/uL) Final Lymphs, absolute 06/30/2023 11:06:29 0.73 Below low normal 1.00-4.80 (K/ul) Final Monos, Abs 06/30/2023 11:06:29 0.51 0.00-1.10 (K/uL) Final Eos, Abs 06/30/2023 11:06:29 0.22 0.00-0.70 (K/uL) Final Basos, Abs 06/30/2023 11:06:29 0.07 0.00-0.20 (K/uL) Final Immature Granulocytes, Number 06/30/2023 11:06:29 0.10 0.00-0.20 (K/uL) Final Performing Location [place] [facility] [facility] [address] [facility] [address]
--- OUTSIDE RECORDS SUMMARY | 2023-12-22 05:53 | External Medical Summary ---
Author Name Unknown Address Unknown Organization K01:LABORATORY [facility] - [address] [place] [address] Laboratory Report Ordering Provider Test Date Status MARIAN DAVIS 07/17/2023 15:11:51 Final Observation Date Value Abnormality Reference (Units ) Status LDH 07/17/2023 15:11:51 167 <=250 (U/L ) Final Performing Location LABORATORY [facility] - [address] [place] [address]
--- OUTSIDE RECORDS SUMMARY | 2023-12-22 05:53 | External Medical Summary ---
Author Name Unknown Address Unknown Organization K09:[facility]ATORY [facility] [place] [address] Laboratory Report Ordering Provider Test Date Status MARIAN DAVIS 07/17/2023 15:11:51 Final Observation Date Value Abnormality Reference (Units ) Status WBC, Total 07/17/2023 15:11:51 8.90 4.00-10.8 0 (K/uL) Final RBC 07/17/2023 15:11:51 3.40 3.85-5.15 (M/uL) Final Hemoglobin 07/17/2023 15:11:51 9.2 Below low normal 12 .0-15.3 (g/dL) Final HCT 07/17/2023 15:11:51 30.4 Below low normal 36. 0-45.2 (%) Final MCV 07/17/2023 15:11:51 89.4 81.5-97.5 (fL) Final MCH 07/17/2023 15:11:51 27.1 27.0-34.0 (pg) Final MCHC 07/17/2023 15:11:51 30.3 32.0-36.0 (g/dL) Final RDW 07/17/2023 15:11:51 15.3 11.5-15.5 (%) Final Platelets 07/17/2023 15:11:51 285 140-400 (K /uL) Final MPV 07/17/2023 15:11:51 9.5 6.6-11.1 ( fL) Final Performing Location [facility] [place] [address]
[2023-12-22] MEDS: LACTATED RINGER'S 1,000 ML IV SCH (06:27)
[2023-12-22] MEDS ORDERED: ROCURONIUM BROMIDE 10 MG/ML 5 ML VIAL IV ONE ×2 (06:28→08:26)
[2023-12-22] MEDS ORDERED: ONDANSETRON INJ 2 MG/ML 2 ML VIAL ONE (06:28)
[2023-12-22] MEDS ORDERED: fentaNYL citrate PF 100 MCG/2 ML VIAL ONE (06:28)
[2023-12-22] MEDS ORDERED: SUGAMMADEX SODIUM 200 MG/2 ML VIAL IV ONE (06:28)
[2023-12-22] MEDS ORDERED: DEXAMETHASONE SOD INJ 4 MG/ML VIAL ONE (06:28)
[2023-12-22] MEDS ORDERED: PROPOFOL IV EMULSION 10 MG/ML 20 ML VIAL IV ONE (06:28)
[2023-12-22 06:37] LABS: BUN Creatinine Ratio 8.7 (10-20); Creatinine Clr Calc Pharmacy 24.1 ml/min; Est GFR (African American) 31.3 ml/min; Potassium 3.7 mmol/L (3.5-5.1)
--- NOTE | 2023-12-22 06:55 | Anesthesiology Consultation ---
Date of Service December 22, 2023 History Surgery Operation Date: 12/22/23 07:15 Proposed Procedures p Laparoscopic Possible Open Extended Right Hemicolectomy - Pedro Peace MD Height/Weight Height: 5 ft 7 in Weight: 67.7 kg Allergies Allergy/AdvReac Type Severity Reaction Status Date / Time adhesive tape Allergy rash/itchy Verified 12/22/23 05:57 latex Allergy rash/itchy Verified 12/22/23 05:57 Medications Home Medications Medication Instructions Recorded Confirmed Last Taken acetaminophen 325 mg tablet 650 mg PO Q6H PRN Pain 06/06/22 12/22/23 Unknown (Tylenol) albuterol sulfate 90 mcg/actuation 2 puff inhalation Q4 PRN Shortness 06/06/22 12/22/23 Unknown aerosol inhaler (Ventolin HFA) Of Breath Or Wheezing clopidogrel 75 mg tablet 75 mg PO QAM 06/06/22 12/22/23 12/15/23 08:00 docusate sodium 100 mg capsule 100 mg PO HS 06/06/22 12/22/23 12/21/23 21:00 enalapril maleate 10 mg tablet 10 mg PO QAM 06/06/22 12/22/23 12/22/23 04:15 ezetimibe 10 mg tablet 10 mg PO QAM 06/06/22 12/22/23 12/22/23 04:15 jbytsjjojjcu-artjelfw-mmsgkv tablet 1 tab PO DAILY 06/06/22 12/22/23 12/21/23 08:00 nitroglycerin 0.4 mg sublingual 0.4 mg sublingual DIRECTED PRN 06/06/22 12/22/23 Unknown tablet (Nitrostat) Chest Pain pantoprazole 20 mg tablet,delayed 20 mg PO QAM 06/06/22 12/22/23 12/22/23 04:15 release polyethylene glycol 3350 17 gram 17 g PO DAILY PRN Constipation 06/06/22 12/22/23 12/21/23 08:00 oral powder packet (Miralax) rosuvastatin 20 mg tablet 20 mg PO QPM 06/06/22 12/22/23 12/21/23 21:00 isosorbide mononitrate 30 mg 30 mg PO QAM 06/24/23 12/22/23 12/21/23 08:00 tablet,extended release 24 hr duloxetine 60 mg capsule,delayed 60 mg PO QAM 12/12/23 12/22/23 12/21/23 08:00 release sprinkle iron,carbonyl 65 mg-vitamin C 125 1 tab PO Q2D 12/12/23 12/22/23 12/21/23 08:00 mg tablet,delayed release (Vitron-C) metoprolol tartrate 25 mg tablet 25 mg PO QAM 12/12/23 12/22/23 12/22/23 04:15 metronidazole 500 mg tablet 500 mg PO BID 12/12/23 12/22/23 12/22/23 04:15 neomycin 500 mg tablet 500 mg PO UD 12/12/23 12/22/23 12/21/23 08:00 ondansetron 8 mg disintegrating 8 mg PO UD 12/12/23 12/22/23 12/21/23 11:00 tablet Active Medications Generic Name Dose Route Start Last Admin Trade Name Freq PRN Reason Stop Dose Admin Lactated Ringer's 1,000 mls @ 15 mls/hr 12/22/23 05:30 12/22/23 06:27 Lr IV 01/21/24 05:29 15 mls/hr .Q24H LEON Administration NPO Date Last Intake of Fluids: 12/22/23 Time Last Intake of Fluids: 04:15 Date Last Intake of Solids: 12/20/23 Time Last Intake of Solids: 17:00 Past Medical History Medical History PVD (peripheral vascular disease) History of PVD with 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 shields, s CAD (coronary artery disease) stent in LAD in 2001 and RCA in 2002, follows with [facility]ology Tobacco abuse hx Heart attack 05/31/2002 Past Family History Family History Mother CHF (congestive heart failure) Father Emphysema of lung Sister Brain tumor Past Surgical History Surgical History Hx of left mastectomy History of esophagogastroduodenoscopy (EGD) Hx of colonoscopy Hx of local excision of skin lesion skin cancer Hx of cardiac cath 06/02/02, follmisbahg MD, [facility] in [place], x1 stent 12/2002, "routine procedure that they knew would need to be done," [facility] in [place], x1 stent; f/u dr. brooks, [facility] 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 stent graft 07/05/19, [facility], "thinks it had actually ruptured right when she got to the hospital"; excluder clips placed x6; has been monitored by dr. pope since this occurred. History of cataract removal with insertion of prosthetic lens right/left History of hysterectomy 1983 H/O heart artery stent 06/02/02, tyler MD, [facility] in [place], x1 stent (Cordis) 01/03/03, "routine procedure that they knew would need to be done," [facility] in [place], x1 stent (Cordis); f/u dr. brooks, [facility] Social History Smoking Status: Former smoker Do You Dip or Chew Tobacco: No Smoking End Date: 06/2019 Hx Alcohol Use: Yes Alcohol type: wine alcohol intake frequency: holidays/special occasions only Hx Substance Use: No substance use type: does not use Physical Exam Vital Signs Last Vital Signs Temp 36.7 C 12/22/23 06:06 Pulse 72 12/22/23 06:06 Resp 16 12/22/23 06:06 BP 110/55 L 12/22/23 06:06 Pulse Ox 96 12/22/23 06:06 O2 Del Method Room Air 12/22/23 06:06 Testing Laboratory Results 12/22/23 05:58 Electrocardiogram Date: 12/11/23 Sinus bradycardia, rate 58 bpm Possible LA enlargement Chest X-Ray Date: 06/24/23 *1view* Cardiomegaly and emphysema with no active disease in the chest. Echocardiogram Date: 11/10/20 EF 60-65% No segmental LV wall motion abnormalities Grade I diastolic dysfunction Aortic valve sclerosis moderate without significant aortic valvular stenosis Severe mitral annular calcifications with calcified mitral leaflets. Mild mitral regurgitation Mild tricuspid regurgitation Moderate aortic root dilatation Ascending aorta of normal dimension Stress Test Date: 11/10/20 Equivocal dobutamine stress echo No inducible wall motion abnormalities Dynamic ST segment depressions at peak HR with reproduction of her chest discomfort MPHR 90% Other Testing Brain MRI 06/24/23 No acute intracranial abnormality. Head CT 06/24/23 No acute intracranial abnormality.
--- NOTE | 2023-12-22 07:00 | History & Physical Bridge Note ---
Date of Service December 22, 2023 History & Physical Bridge Note I have examined the patient, reviewed the History & Physical and in the interval since the performance of the History & Physical I have noted the following changes of clinical significance: no changes noted
[2023-12-22] MEDS: cefOXitin 2,000 MG in DEXTROSE 5 % MINI-B 50 ML IV SCH (07:20)
[2023-12-22] MEDS: BUPIVACAINE 0.5 % 5 MG/1 ML MPF 30ML VIAL ONE (09:48)
--- NOTE | 2023-12-22 09:50 | Post Operative Brief Note ---
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
--- NOTE | 2023-12-22 09:58 | Operative Report ---
Post Operative Report Pre & Post Diagnosis Operation Date: 12/22/23 07:15 Pre-Op Diagnosis: Overlapping Malignant Neoplasm of Colon Post-Op Diagnosis: Overlapping Malignant Neoplasm of Colon I identified the patient and participated in the time-out.: Yes Procedure Operation Date: 12/22/23 07:15 Actual Procedures p Laparoscopic Extended Right Hemicolectomy(Right) - Pedro Peace MD Surgeon Pedro Peace MD Senior Business Process Analyst SURAJ Ledbetter assisted with tissue retraction, camera op, closure Estimated Blood Loss 20 Findings Consistent with Post-Op Diagnosis Specimens right and transverse colon including terminal ileum: Piece of omentum Drains none Anesthesia Type General Complications no immediate complication Description of Procedure patient was taken to the operating room, placed supine on the operating table. A timeout is performed, perioperative antibiotics were administered, SCD boots were placed. After adequate anesthesia and analgesia was obtained, a Malave catheter was placed, and she was prepped and draped in the normal sterile fashion. Incision was made with 15 blade scalpel in the midline above the umbilicus and carried down to the level of the fascia. The fascia was grasped with a Tracoe, and a Veress needle was used into the abdominal cavity. The abdomen was insufflated to pressure 15 mmHg, and a 12 mm trocars placed in the location. A 10 mm 30 degree laparoscope was placed in the abdominal cavity and the abdomen surveyed. We noted the tattoo ink in the cecum as well as in the surrounding tissues and the pelvic sidewall near the cecum. There appeared to be a darkish blue from underneath the omentum near the hepatic flexure. Two 5 mm trocars were placed under direct visualization in the right lower quadrant and left upper quadrant, and a 12 mm trocars placed in the left lower quadrant. The patient was placed in slight Trendelenburg and slightly to the left. the colon was elevated anteriorly and medially exposing the ileocolic vessel. In mobilizing the colon we noted that the second tattoo in the hepatic flexure was actually more distal than the hepatic flexure along the course of the transverse colon. We turned our attention to the ileocolic pedicle. The ileocolic pedicle was skeletonized with a harmonic scalpel. The ileocolic pedicle was then taken at the space with a vascular load of the Endo MARJAN stapler. Blunt dissection was then used to dissect the mesentery from underneath the colon. The duodenum was identified and swept down keeping it safe. This dissection was taken to the pelvic sidewall. At this point, we turned our attention to the lateral attachments of the colon. The colon was retracted medially exposing the white line of Toldt. This was taken down with the harmonic scalpel, completing the dissection of the mesentery. This was taken up into the hepatic flexure, and the hepatic flexure was taken down. The lesser sac was identified and entered along the transverse colon and the transverse colon was mobilized as well. Once this was completely mobilized, a small midline incision was made after the abdomen was desufflated. The incision was opened to its fullest extent and an Travis wound protector was placed. The right colon and transverse colon were then maneuvered out of the incision, bringing up the terminal ileum and the distal transverse colon past the level of the tumor. A few further mesenteric attachments were taken with the LigaSure were. Sites were selected on the terminal ileum and transverse colon distal to the second tumor. These areas were transected with the MARJAN stapler. The speci men, encompassing the terminal ileum, right colon, and proximal transverse colon, was sent off the field for specimen. A tail of omentum was then taken and sent off field with for specimen as well. A iike-no-oysr functional end-to-end anastomosis was created between the terminal ileum and the transverse colon with the MARJAN stapler. The common channel was then closed with a TA stapler. The base of the anastomosis was approximated with 3-0 silk suture. The mesenteric defect was then closed with a 2-0 Vicryl suture. Hemostasis was excellent. At this point the abdomen was copiously irrigated and suctioned free and again hemostasis was checked and attended to and was excellent. The fascia was closed with a running #1 looped PDS suture. The trocars were removed. The fascia and the 12 mm trocar site was closed with 0 Vicryl. The skin was closed with running 4-0 Monocryl subcuticular stitch. Dermabond was applied. Patient tolerated the procedure without complication, was transferred in stable condition to the PACU. All instrument, needle, and sponge counts were correct at the end of the case. My seed laboratory assistant was necessary throughout the procedure for tissue retraction, possible camera operation, and closure of the wounds. I understand that section 1842(b)(7)(D) of the Social Security act generally prohibits Medicare physician fee schedule payment for the services of assistants at surgery in teaching hospitals when qualified residents are available to furnish such services. I certify that the services for which payment is claimed were medically necessary and that no qualified resident was available to perform the services. I further understand that these services are subject to postpayment review by the Medicare carrier. I attest to the content of the Intraoperative Record and any orders documented therein. Any exceptions are noted below.
[2023-12-22] MEDS ORDERED: ePHEDrine sulfate 50 MG/ML AMP IV PRN (10:19)
[2023-12-22] MEDS ORDERED: ATROPINE SULFATE 0.1 MG/ML 10ML SYR IV PRN (10:19)
[2023-12-22] MEDS ORDERED: ONDANSETRON INJ 2 MG/ML 2 ML VIAL IV PRN ×2 (10:19→12:12)
[2023-12-22] MEDS: HYDROmorphone INJ 1 MG/ML SYRINGE IV PRN (10:27)
[2023-12-22] MEDS: ACETAMINOPHEN 1,000 MG/100 ML VIAL IV STA (10:41)
--- NOTE | 2023-12-22 11:29 | Anesthesiology Progress Note ---
Date of Service December 22, 2023 Anesthesia Post Procedure Vital Signs Vital Signs: Temp Pulse Pulse Resp BP Pulse Ox O2 Del Method 12/22/23 11:20 142/78 H 12/22/23 11:15 62 17 170/87 H 97 Nasal Cannula 12/22/23 11:11 163/88 H 12/22/23 11:05 63 21 168/86 H 95 Nasal Cannula 12/22/23 11:00 63 17 163/82 H 94 Nasal Cannula 12/22/23 10:55 63 15 180/90 H 93 Nasal Cannula 12/22/23 10:45 64 14 183/92 H 97 Oxymask 12/22/23 10:35 64 14 186/92 H 98 Oxymask 12/22/23 10:25 65 18 196/101 H 100 Oxymask 12/22/23 10:16 36.6 C 68 19 192/94 H 96 Oxymask 12/22/23 06:06 Room Air 12/22/23 06:06 36.7 C 72 16 110/55 L 96 Room Air O2 Flow Rate 12/22/23 11:20 12/22/23 11:15 2 12/22/23 11:11 12/22/23 11:05 2 12/22/23 11:00 2 12/22/23 10:55 2 12/22/23 10:45 4 12/22/23 10:35 4 12/22/23 10:25 13 12/22/23 10:16 13 12/22/23 06:06 12/22/23 06:06 Transfer of Care Handoff Completed per policy Notes Mental Status: alert / awake / arousable and participated in evaluation Nausea / Vomiting: adequately controlled Pain: adequately controlled Airway Patency, RR, SpO2: stable & adequate BP & HR: stable & adequate Hydration State: stable & adequate Anesthetic Complications: no major complications apparent and Pt Satisfied with anesthetic care
[2023-12-22] MEDS ORDERED: PROMETHAZINE HCL 12.5 MG in SODIUM CHLORIDE 0.9% 50 ML IV PRN (12:12)
[2023-12-22] MEDS ORDERED: MoRPHine SULFATE 2 MG/ML CARP IV PRN (12:12)
[2023-12-22] MEDS ORDERED: diphenhydrAMINE Capsule 25 MG CAP PO PRN (12:12)
[2023-12-22] MEDS: MoRPHine SULFATE 4 MG/ML 1 ML CARP\\VIAL IV PRN (12:28)
[2023-12-22] MEDS: SODIUM CHLORIDE 0.9% 1,000 ML IV SCH (12:39)
[2023-12-22] MEDS: ACETAMINOPHEN 1,000 MG/100 ML VIAL IV SCH (13:05)
--- NOTE | 2023-12-22 13:06 | Hospitalist Consultation ---
Date of Consultation December 22, 2023 Assessment & Plan (1) Status post right hemicolectomy: Recent diagnosis of adenocarcinoma of the colon following biopsy and colonoscopy on 11/25/2023 Underwent extended right hemicolectomy by Dr. Peace on 12/22/2023 Got cefoxitin preop Complains pain in the abdomen and has been getting intravenous and oral pain medications Has been getting intravenous fluid and also pain medications as mentioned Management will be as per surgeon (2) Adenocarcinoma of colon: As above (3) CAD (coronary artery disease): History of LAD and RCA stents in 2001 and 2002 Was medically cleared by the commuter pilot prior to surgery She has been on aspirin and Plavix-has been on hold except aspirin for the surgery Plan to discontinue aspirin after surgery and restart Plavix as soon as possible Patient remains free from any cardiac symptoms (4) HTN (hypertension): Blood pressure noted to be high following surgery In part due to the pain Will continue her current medications (5) COPD (chronic obstructive pulmonary disease): No acute exacerbation Has been on 2 L by nasal cannula to maintain saturation (6) CKD (chronic kidney disease) stage 3, GFR 30-59 ml/min: History of CKD stage III Creatinine is little bit up at 1.72 Has been getting cautious amount of intravenous fluid (7) HLD (hyperlipidemia): Will start rosuvastatin as soon as okay from the surgery Other medical conditions as documented in H&P remain stable DVT prophylaxis Has been started on Lovenox Plan to discontinue aspirin and start Plavix as per the commuter pilot CODE STATUS Full code History of Present Illness Reason for Consultation: Medical management following laparoscopic extended right hemicolectomy for colon cancer Requesting Physician: Dr. 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 She has had preop evaluation and cleared for surgery and underwent laparoscopic extended right hemicolectomy today at [facility]. The medicine service is consulted for medical management following the surgery. She remains reasonably stable following surgery and medical floor. Complains of pain in the abdomen and stomach area without nausea no vomiting. Denies any chest pain and/or palpitation and no shortness of breath at rest. Has been on 2 L nasal cannula to maintain saturation. She denies any numbness and or tingling in the extremities and she moves all the extremities. her blood pressure noted to be high at 174/91 Allergies Allergy/AdvReac Type Severity Reaction Status Date / Time adhesive tape Allergy rash/itchy Verified 12/22/23 05:57 latex Allergy rash/itchy Verified 12/22/23 05:57 Home Medications Medication Instructions Recorded Confirmed Type acetaminophen 325 mg tablet 650 mg PO Q6H PRN Pain 06/06/22 12/22/23 History (Tylenol) albuterol sulfate 90 mcg/actuation 2 puff inhalation Q4 PRN Shortness 06/06/22 12/22/23 History aerosol inhaler (Ventolin HFA) Of Breath Or Wheezing clopidogrel 75 mg tablet 75 mg PO QAM 06/06/22 12/22/23 History docusate sodium 100 mg capsule 100 mg PO HS 06/06/22 12/22/23 History enalapril maleate 10 mg tablet 10 mg PO QAM 06/06/22 12/22/23 History ezetimibe 10 mg tablet 10 mg PO QAM 06/06/22 12/22/23 History pluilmatwniy-zymtppvr-dsfkho tablet 1 tab PO DAILY 06/06/22 12/22/23 History nitroglycerin 0.4 mg sublingual 0.4 mg sublingual DIRECTED PRN 06/06/22 12/22/23 History tablet (Nitrostat) Chest Pain pantoprazole 20 mg tablet,delayed 20 mg PO QAM 06/06/22 12/22/23 History release polyethylene glycol 3350 17 gram 17 g PO DAILY PRN Constipation 06/06/22 12/22/23 History oral powder packet (Miralax) rosuvastatin 20 mg tablet 20 mg PO QPM 06/06/22 12/22/23 History isosorbide mononitrate 30 mg 30 mg PO QAM 06/24/23 12/22/23 History tablet,extended release 24 hr duloxetine 60 mg capsule,delayed 60 mg PO QAM 12/12/23 12/22/23 History release sprinkle iron,carbonyl 65 mg-vitamin C 125 1 tab PO Q2D 12/12/23 12/22/23 History mg tablet,delayed release (Vitron-C) metoprolol tartrate 25 mg tablet 25 mg PO QAM 12/12/23 12/22/23 History metronidazole 500 mg tablet 500 mg PO BID 12/12/23 12/22/23 History neomycin 500 mg tablet 500 mg PO UD 12/12/23 12/22/23 History ondansetron 8 mg disintegrating 8 mg PO UD 12/12/23 12/22/23 History tablet Patient History Medical History (Updated 12/22/23 @ 12:58 by Siobhan Rees MD) PVD (peripheral vascular disease) History of PVD with 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 shields, [facility] CAD (coronary artery disease) stent in LAD in 2001 and RCA in 2002, follows with [facility] cardiology Tobacco abuse hx Heart attack 05/31/2002 Surgical History (Updated 12/22/23 @ 12:58 by Siobhan Rees MD) Hx of left mastectomy History of esophagogastroduodenoscopy (EGD) Hx of colonoscopy Hx of local excision of skin lesion skin cancer Hx of cardiac cath 06/02/02, [facility] [place], x1 stent 12/2002, "routine procedure that they knew would need to be done," [facility] in [place], x1 stent; f/u dr. brooks, [facility] 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 stent graft 07/05/19, [facility], "thinks it had actually ruptured right when she got to the hospital"; excluder clips placed x6; has been monitored by dr. pope since this occurred. History of cataract removal with insertion of prosthetic lens right/left History of hysterectomy 1983 H/O heart artery stent 06/02/02, [place], [facility] in [place], x1 stent (Cordis) 01/03/03, "routine procedure that they knew would need to be done," [facility] in [place], x1 stent (Cordis); f/u dr. brooks [facility] Family History Mother CHF (congestive heart failure) Father Emphysema of lung Sister Brain tumor Social History Smoking Status: Former smoker Tobacco Type: Cigarettes Smoking End Date: 06/2019; Second Hand Exposure: Yes (hx as child); Do You Dip or Chew Tobacco: No; Tobacco Cessation Education Requested by Patient: No Hx Alcohol Use: Yes Alcohol type: wine Hx Substance Use: No Preferred Language: Greek Communication Ability: Effective Communication Ability Comment: unable to assess since patient is intubated Scaffolder Required: No Beliefs That Will Affect Care: None marital status: / Current Living Situation: Alone current occupational status: retired Other Information That Helps Us Care for You: No Feels Safe at Home: Yes Safety Concerns: Feels Safe At This Time Assistive Devices: Cane, Denture - Upper and Denture - Lower Review of Systems Review of Systems: All systems reviewed and are unremarkable except as noted below Physical Exam Physical Exam: Lying in bed with acute distress due to abdominal pain Constitutional: + ill appearing and average body habitus Eyes: PERRL, conjunctivae normal, anicteric sclerae ENMT: external ear and nose normal, oropharynx normal Neck: trachea midline, no thyromegaly Respiratory: no respiratory distress Auscultation: lungs clear to auscultation bilaterally Cardiovascular: Rate/Rhythm: regular rate and regular rhythm; not tachycardic Heart Sounds: normal S1 and normal S2; no murmur Extremities: no edema Gastrointestinal (Abdomen): Inspection/Auscultation: + abdomen distended and normal bowel sounds (Decreased) Percussion/Palpation: + abdomen tender (Tender all over status post right hemicolectomy) and abdomen soft Musculoskeletal: No acute arthritis involving any of the joint Neurologic: Alert and awake. Still under the influence of anesthetics and complains a lot of pain Lymphatic: no cervical or axillary lymphadenopathy Results & Data Results & Data Vital Signs (Past 12 Hours) Vital Signs Temp Pulse Pulse Resp BP Pulse Ox O2 Del Method 12/22/23 12:43 36.4 C L 65 20 174/91 H 98 Room Air, Nasal Cannula 12/22/23 12:12 35.9 C L 66 20 175/78 H 98 Nasal Cannula 12/22/23 11:45 64 20 169/90 H 98 Nasal Cannula 12/22/23 11:30 36.3 C L 61 21 170/81 H 97 Nasal Cannula 12/22/23 11:20 142/78 H 12/22/23 11:15 62 17 170/87 H 97 Nasal Cannula 12/22/23 11:11 163/88 H 12/22/23 11:05 63 21 168/86 H 95 Nasal Cannula 12/22/23 11:00 63 17 163/82 H 94 Nasal Cannula 12/22/23 10:55 63 15 180/90 H 93 Nasal Cannula 12/22/23 10:45 64 14 183/92 H 97 Oxymask 12/22/23 10:35 64 14 186/92 H 98 Oxymask 12/22/23 10:25 65 18 196/101 H 100 Oxymask 12/22/23 10:16 36.6 C 68 19 192/94 H 96 Oxymask 12/22/23 06:06 Room Air 12/22/23 06:06 36.7 C 72 16 110/55 L 96 Room Air O2 Flow Rate 12/22/23 12:43 2 12/22/23 12:12 2 12/22/23 11:45 2 12/22/23 11:30 2 12/22/23 11:20 12/22/23 11:15 2 12/22/23 11:11 12/22/23 11:05 2 12/22/23 11:00 2 12/22/23 10:55 2 12/22/23 10:45 4 12/22/23 10:35 4 12/22/23 10:25 13 12/22/23 10:16 13 12/22/23 06:06 12/22/23 06:06 Laboratory Results [facility] 12/22/23 05:58 Sodium 139 Potassium 3.7 Chloride 107 Carbon Dioxide 22 BUN 15 Creatinine 1.72 H Glucose 104 H Calcium 9.0 Medications Administered Current Inpatient Medications Atropine Sulfate (Atropine Sulfate 0.1 Mg/Ml 10ml Syr) 0.5 mg IV Q1M PRN PRN Reason: PACU Use-HR<40 &/or Bradycardi Stop: 12/22/23 18:19 Diphenhydramine HCl (Diphenhydramine Capsule 25 Mg Cap) 25 mg PO Q4H PRN PRN Reason: hives, itching or insomnia Stop: 01/21/24 12:11 Enoxaparin Sodium (Enoxaparin Inj 40 Mg/0.4 Ml Syr) 40 mg SQ Q24H LEON Stop: 01/22/24 08:59 Ephedrine Sulfate (Ephedrine Sulfate 50 Mg/Ml Amp) 5 mg IV Q5M PRN PRN Reason: PACU Use Only-SBP<90 mmHg Stop: 12/22/23 18:19 Hydromorphone HCl (Hydromorphone Inj 1 Mg/Ml Syringe) 0.25 mg IV Q5M PRN PRN Reason: PACU Use Only-Pain Stop: 12/22/23 18:19 Last Admin: 12/22/23 10:50 Dose: 0.25 mg Cefoxitin Sodium 2,000 mg/ (Dextrose) 50 mls @ 120 mls/hr IV PREOP LEON Stop: 12/22/23 18:00 Last Admin: 12/22/23 07:20 Dose: 120 mls/hr Lactated Ringer's (Lr) 1,000 mls @ 15 mls/hr IV .Q24H LEON Stop: 01/21/24 05:29 Last Infusion: 12/22/23 07:11 Dose: Infused Acetaminophen (Ofirmev) 1,000 mg in 100 mls @ 400 mls/hr IV Q8H LEON Stop: 12/25/23 12:11 Promethazine HCl 12.5 mg/ (Sodium Chloride) 50.5 mls @ 204 mls/hr IV Q6H PRN PRN Reason: Nausea And Vomiting Stop: 01/21/24 12:11 Sodium Chloride (Nss) 1,000 mls @ 75 mls/hr IV .[id number] LEON Stop: 01/21/24 12:11 Last Admin: 12/22/23 12:39 Dose: 75 mls/hr Morphine Sulfate (Morphine Sulfate 2 Mg/Ml Carp) 2 mg IV Q2H PRN PRN Reason: Pain (1,2,3,4,5) & Pre PT Stop: 01/05/24 12:11 Morphine Sulfate (Morphine Sulfate 4 Mg/Ml 1 Ml Carp\\Vial) 4 mg IV Q3H PRN PRN Reason: Pain (6,7,8,9,10) Stop: 01/05/24 12:11 Last Admin: 12/22/23 12:28 Dose: 4 mg Ondansetron HCl (Ondansetron Inj 2 Mg/Ml 2 Ml Vial) 4 mg IV ONCE PRN PRN Reason: PACU Use Only-Nausea/Vomiting Stop: 12/22/23 18:19 Ondansetron HCl (Ondansetron Inj 2 Mg/Ml 2 Ml Vial) 4 mg IV Q4H PRN PRN Reason: Nausea And Vomiting Stop: 01/21/24 12:11 Oxycodone HCl (Oxycodone Hcl Ir 5 Mg Tab (Immediate Release)) 5 mg PO Q4H PRN PRN Reason: MODERATE Pain (4,5,6) & Pre PT Stop: 01/05/24 12:11 Oxycodone HCl (Oxycodone Hcl Ir 5 Mg Tab (Immediate Release)) 10 mg PO Q4H PRN PRN Reason: SEVERE Pain (7,8,9,10) Stop: 01/05/24 12:11
[2023-12-22] MEDS ORDERED: NITROGLYCERIN SL 0.4 MG/TAB TAB SL PRN (13:10)
[2023-12-22] MEDS ORDERED: ALBUTEROL HFA 8 GM INHALER INH PRN (13:10)
[2023-12-22] MEDS: ACETAMINOPHEN 1000 MG/100 ML IV IV ONE (13:33)
[2023-12-22] MEDS: METOPROLOL TARTRATE 25 MG TAB PO SCH (13:47)
[2023-12-22] MEDS: NITROGLYCERIN 2% OINTMENT 30GM TUBE EXT STA (14:19)
[2023-12-22] MEDS: PANTOprazole 40 MG TAB PO SCH (14:21)
[2023-12-22] MEDS: oxyCODONE HCL IR 5 MG TAB (IMMEDIATE RELEASE) PO PRN (15:48)
[2023-12-23 08:01] LABS: Basophils # (auto) 0.04 K/uL (0.00-0.20); Basophils % (auto) 0.5 %; Eosinophils # (auto) 0.06 K/uL (0.00-0.50); Eosinophils % (auto) 0.7 %; Hematocrit (blood only) 23.8 % (37.0-47.0); Hemoglobin 7.2 g/dl (12.0-16.0); Immature Granulocytes # (auto) 0.04 K/uL (0.01-0.20); Immature Granulocytes % (auto) 0.5 %; Lymphocytes # (auto) 0.65 K/uL (1.20-3.40); Lymphocytes % (auto) 7.5 %; Mean Corpuscular Hemoglobin 26.1 pg (25.0-34.0); Mean Corpuscular Hgb Conc 30.3 g/dL (32.0-36.0); Mean Corpuscular Volume 86.2 fL (80.0-100.0); Mean Platelet Volume 9.3 fL (9.4-12.4); Monocytes # (auto) 0.77 K/uL (0.11-0.59); Monocytes % (auto) 8.9 %; Neutrophils # (auto) 7.13 K/uL (1.40-6.50); Neutrophils % (auto) 81.9 %; Platelet Count 245 K/uL (130-400); RDW Coefficient of Variation 16.9 % (11.5-14.5); RDW Standard Deviation 52.6 fL (36.4-46.3); Red Blood Count 2.76 M/uL (4.20-5.40); White Blood Count 8.69 K/ul (4.8-10.8)
[2023-12-23 08:28] LABS: BUN Creatinine Ratio 10.5 (10-20); Calcium 8.4 mg/dl (8.6-10.3); Creatinine Clr Calc Pharmacy 31.2 ml/min; Est GFR (African American) 42.7 ml/min; Est GFR (Non-African American) 36.9 ml/min; Magnesium 1.5 mg/dl (1.7-2.4); Phosphorus 3.4 mg/dl (2.5-4.9); Potassium 4.4 mmol/L (3.5-5.1)
[2023-12-23 08:30] LABS: Ovalocytes 1+; Polychromasia 1+
[2023-12-23] MEDS: DULoxetine HCL 60 MG CAP PO SCH (08:42)
[2023-12-23] MEDS: ISOSORBIDE MONO EXTENDED REL 30 MG TABCR PO SCH (08:42)
[2023-12-23] MEDS: ENOXAPARIN INJ 30 MG/0.3 ML SYR SQ SCH (08:43)
[2023-12-23] MEDS ORDERED: ENOXAPARIN INJ 40 MG/0.4 ML SYR SQ SCH (09:00)
--- NOTE | 2023-12-23 14:02 | Surgery Progress Note ---
Date of Service December 23, 2023 Assessment & Plan (1) Adenocarcinoma of colon: (2) Status post right hemicolectomy: Plan POD#1 s/p laparoscopic extended right hemicolectomy doing well continue clears OOB to chair and ambulate - PT/OT consult DVT prophylaxis - SCDs and Enoxaparin continue pain control recheck H/H tomorrow Admission and Anticipated Discharge Date Admission Date: December 22, 2023 Subjective POD#1 s/p laparoscopic extended right hemicolectomy doing fairly well; tolerating liquids without nausea; some overnight confusion; no fevers; no flatus yet. some pain in abdomen Physical Exam Physical Exam: NAD AFVSS NCAT Abd: soft; mild TTP incisions C/D/I with dermabond nondistended Results & Data Vital Signs (Past 12 Hours) Vital Signs Temp Pulse Resp BP Pulse Ox O2 Del Method O2 Flow Rate 12/23/23 09:46 94 Nasal Cannula 2 12/23/23 09:45 83 L Room Air 12/23/23 08:45 67 145/88 H 12/23/23 07:07 36.3 C L 69 16 163/77 H 95 Nasal Cannula 4 12/23/23 05:07 36.6 C 69 18 142/72 H 96 Nasal Cannula 2 12/23/23 02:00 36.4 C L 67 17 156/71 H 97 Nasal Cannula 2 Laboratory Results 12/23/23 Range/Units 06:55 WBC 8.69 (4.8-10.8) K/ul RBC 2.76 L (4.20-5.40) M/uL Hgb 7.2 L (12.0-16.0) g/dl Hct 23.8 L (37.0-47.0) % MCV 86.2 (80.0-100.0) fL MCH 26.1 (25.0-34.0) pg MCHC 30.3 L (32.0-36.0) g/dL RDW Std Deviation 52.6 H (36.4-46.3) fL RDW Coeff of Adalid 16.9 H (11.5-14.5) % Plt Count 245 (130-400) K/uL MPV 9.3 L (9.4-12.4) fL Immature Gran % (Auto) 0.5 % Neut % (Auto) 81.9 % Lymph % (Auto) 7.5 % Harnett % (Auto) 8.9 % Eos % (Auto) 0.7 % Baso % (Auto) 0.5 % Neut # (Auto) 7.13 H (1.40-6.50) K/uL Lymph # (Auto) 0.65 L (1.20-3.40) K/uL Harnett # (Auto) 0.77 H (0.11-0.59) K/uL Eos # (Auto) 0.06 (0.00-0.50) K/uL Baso # (Auto) 0.04 (0.00-0.20) K/uL Immature Gran # (Auto) 0.04 (0.01-0.20) K/uL Polychromasia 1+ Ovalocytes 1+ Sodium 138 (136-145) mmol/L Potassium 4.4 (3.5-5.1) mmol/L Chloride 108 H (98-107) mmol/L Carbon Dioxide 24 (21-32) mmol/L Anion Gap 6 (3-11) BUN 14 (6-23) mg/dl Creatinine 1.33 H D (0.6-1.2) mg/dl Est Cr Clr Drug Dosing 31.2 ml/min Est GFR ( Amer) 42.7 ml/min Est GFR (Non-Af Amer) 36.9 ml/min BUN/Creatinine Ratio 10.5 (10-20) Glucose 95 (70-99(Fasting)) mg/dl Calcium 8.4 L (8.6-10.3) mg/dl Phosphorus 3.4 (2.5-4.9) mg/dl Magnesium 1.5 L (1.7-2.4) mg/dl
[2023-12-23] MEDS: oxyCODONE HCL IR 5 MG TAB (IMMEDIATE RELEASE) PO PRN (15:50)
--- NOTE | 2023-12-23 15:51 | Hospitalist Progress Note ---
Date of Service December 23, 2023 Assessment & Plan (1) Status post right hemicolectomy: Plan: Recent diagnosis of adenocarcinoma of the colon following biopsy and colonoscopy on 11/25/2023 Underwent extended right hemicolectomy by Dr. Peace on 12/22/2023 on clear liquid diet Pain control Minimize IV fluids PT OT eval Started on Lovenox for DVT prophylaxis Acute blood loss anemia Hemoglobin dropped from 9.5-7.2 today; likely secondary to hemodilution/surgery Obtain CBC tomorrow a.m. Transfuse if hemoglobin is less than 7 (2) Adenocarcinoma of colon: Plan: As above (3) CAD (coronary artery disease): Plan: History of LAD and RCA stents in 2001 and 2002 Was medically cleared by the instructor of education prior to surgery She has been on aspirin and Plavix-has been on hold except aspirin for the surgery Plan to discontinue aspirin after surgery and restart Plavix as soon as possible Plavix ordered for tomorrow a.m. (4) HTN (hypertension): Plan: Blood pressure noted to be high following surgery In part due to the pain Will continue her home meds (5) COPD (chronic obstructive pulmonary disease): Plan: No acute exacerbation Has been on 2 L by nasal cannula to maintain saturation (6) CKD (chronic kidney disease) stage 3, GFR 30-59 ml/min: Plan: History of CKD stage III Creatinine at baseline Has been getting cautious amount of intravenous fluid (7) HLD (hyperlipidemia): Plan: on rosuvastatin, continue Other medical conditions as documented in H&P remain stable DVT prophylaxis Lovenox CODE STATUS Full code Time spent evaluating patient, direct bedside care, chart review, placing orders, interpretation of diagnostic studies, discussion with consultants, patient, and family members, as well as other required patient management activities is 50 minutes Please note the above document was generated using voice recognition software. It may contain grammatical, syntax or spelling errors. Any formal questions or concerns about the content, text or information contained within the body of this dictation should be directly addressed to the provider for clarification Admission and Anticipated Discharge Date Admission Date: December 22, 2023 Subjective Patient seen and examined at bedside. She out of the bed onto the chair; comfortable. Not in distress Reports pain is well-controlled on current medication Review of Systems Review of Systems: All systems reviewed & are unremarkable except as noted in Subjective Physical Exam Physical Exam: Constitutional: Alert oriented x 3; not in distress. Alert oriented x 3; not in distress. Respiratory: normal respiratory effort, lungs clear to auscultation, no wheeze, rales, rhonchi. Normal insp/exp effort, no accessory muscle use Cardiovascular: RRR, no murmur, no edema Vessels: no JVD or carotid bruit Chest: normal inspection of chest Abdomen: Dressing clean dry and intact; abdominal binder in place Musculoskeletal: no cyanosis or clubbing, extremities motor strength 5/5 Skin: no rashes, warm and dry normal turgor Neurologic: PERRL, EOMI, accommodation nl, no face palsy, no dysarthria CN's II- XI intact bilaterally and moves all extremities Psychiatric: A+Ox3, euthymic affect Results & Data Results & Data Vital Signs (Past 12 Hours) Vital Signs Temp Pulse Resp BP Pulse Ox O2 Del Method O2 Flow Rate 12/23/23 15:00 36.6 C 68 16 129/61 96 Room Air 12/23/23 09:46 94 Nasal Cannula 2 12/23/23 09:45 83 L Room Air 12/23/23 08:45 67 145/88 H 12/23/23 07:07 36.3 C L 69 16 163/77 H 95 Nasal Cannula 4 12/23/23 05:07 36.6 C 69 18 142/72 H 96 Nasal Cannula 2
[2023-12-23] MEDS: ROSUVASTATIN CALCIUM 20 MG TAB PO SCH (20:39)
[2023-12-24] MEDS: OLANZapine 10 MG/2.1 ML SDV IM STA ×2 (03:39→06:09)
[2023-12-24] MEDS: ENALAPRIL MALEATE 10 MG TAB PO SCH (08:10)
[2023-12-24] MEDS: EZETIMIBE 10 MG TAB PO SCH (08:11)
[2023-12-24 09:45] LABS: Hematocrit (blood only) 22.5 % (37.0-47.0); Hemoglobin 6.8 g/dl (12.0-16.0); Mean Corpuscular Hemoglobin 26.4 pg (25.0-34.0); Mean Corpuscular Hgb Conc 30.2 g/dL (32.0-36.0); Mean Corpuscular Volume 87.2 fL (80.0-100.0); Mean Platelet Volume 9.4 fL (9.4-12.4); Platelet Count 245 K/uL (130-400); RDW Coefficient of Variation 17.2 % (11.5-14.5); RDW Standard Deviation 53.4 fL (36.4-46.3); Red Blood Count 2.58 M/uL (4.20-5.40); White Blood Count 8.39 K/ul (4.8-10.8)
[2023-12-24 09:47] LABS: BUN Creatinine Ratio 9.3 (10-20); Calcium 8.4 mg/dl (8.6-10.3); Creatinine Clr Calc Pharmacy 38.7 ml/min; Est GFR (African American) 55.6 ml/min; Potassium 3.4 mmol/L (3.5-5.1)
[2023-12-24 09:49] LABS: Basophils # (auto) 0.04 K/uL (0.00-0.20); Basophils % (auto) 0.5 %; Eosinophils # (auto) 0.24 K/uL (0.00-0.50); Eosinophils % (auto) 2.9 %; Immature Granulocytes # (auto) 0.06 K/uL (0.01-0.20); Immature Granulocytes % (auto) 0.7 %; Monocytes % (auto) 7.2 %; Neutrophils # (auto) 6.95 K/uL (1.40-6.50); Neutrophils % (auto) 82.7 %; Poikilocytosis Present; Polychromasia 1+
[2023-12-24] MEDS: CLOPIDOGREL BISULFATE 75 MG TAB PO SCH (10:40)
[2023-12-24] MEDS: ENOXAPARIN INJ 40 MG/0.4 ML SYR SQ SCH (10:41)
[2023-12-24] MEDS ORDERED: ACETAMINOPHEN 325 MG TAB PO PRN (10:54)
[2023-12-24] MEDS ORDERED: SODIUM CHLORIDE 0.9% 250 ML IV PRN (10:59)
--- NOTE | 2023-12-24 11:05 | Hospitalist Progress Note ---
Date of Service December 24, 2023 Assessment & Plan (1) Status post right hemicolectomy: (2) Adenocarcinoma of colon: (3) Acute on chronic anemia: (4) Hypokalemia: (5) Acute hyperactive delirium due to another medical condition: (6) CKD (chronic kidney disease) stage 3, GFR 30-59 ml/min: (7) COPD (chronic obstructive pulmonary disease): (8) CAD (coronary artery disease): (9) HTN (hypertension): (10) HLD (hyperlipidemia): Plan Patient status post hemicolectomy with acute blood loss anemia on chronic anemia as expected postoperatively. No signs of acute active blood loss. Transfuse 1 unit PRBCs Replace potassium Patient with significant delirium postoperatively, suspect component of medications, anesthesia, hospital delirium. Discontinue narcotics, has been needing very few for pain control, discontinue Benadryl Tylenol as needed for pain control Encourage activity Trazodone at bedtime to help her get back on a better sleep-wake cycle. Suspect sleep deprivation as part of her confusion as well Advancing diet as recommended by surgery Updated son via phone, reports that patient can stay with him while she continues to recover after discharge Admission and Anticipated Discharge Date Admission Date: December 22, 2023 Subjective Patient extremely confused agitated overnight. Required Zyprexa. This morning on one-to-one. Sitting up in the chair. Has moved her bowels and diet is being advanced Physical Exam Physical Exam: Constitutional: Alert, confused, sitting in chair HEENT: Mucous membranes moist. Lungs: Clear to auscultation, decreased, no wheezes rales or rhonchi CV: S1-S2, regular Abdomen: Soft, mild incisional tenderness Extremities: No significant edema Neuro: No focal deficits Psych: Confused and labile Results & Data Results & Data Vital Signs (Past 12 Hours) Vital Signs Temp Pulse Resp BP Pulse Ox O2 Del Method O2 Flow Rate 12/24/23 08:10 77 181/77 H 94 Nasal Cannula 2 12/24/23 05:46 36.4 C L 82 17 135/64 94 Nasal Cannula 2 12/24/23 03:48 91 Nasal Cannula 2 12/24/23 03:45 85 L Room Air Diagnostic Findings Reviewed imaging, laboratory and diagnostic studies. Pertinent findings as below. Hemoglobin 6.8 Potassium 3.4
[2023-12-24] MEDS: OLANZapine 10 MG/2.1 ML SDV IM PRN (11:30)
[2023-12-24] MEDS: POTASSIUM CHLORIDE CRTAB 20 MEQ TABCR PO STA (12:20)
[2023-12-24] MEDS: LORazepam 1 MG in SYRINGE 0.5 ML IV STA (12:34)
--- NOTE | 2023-12-24 16:01 | Surgery Progress Note ---
Date of Service December 24, 2023 Assessment & Plan (1) Adenocarcinoma of colon: (2) Status post right hemicolectomy: Plan POD#2 s/p laparoscopic extended right hemicolectomy doing well continue advancing diet as tolerated OOB to chair and ambulate - PT/OT consult DVT prophylaxis - SCDs and Enoxaparin continue pain control awaiting H/H today Admission and Anticipated Discharge Date Admission Date: December 22, 2023 Subjective Patient extremely confused agitated overnight. Required Zyprexa. denies nausea. some pain. Has moved her bowels and diet is being advanced Physical Exam Physical Exam: NAD AFVSS NCAT Abd: soft; mild TTP incisions C/D/I with dermabond nondistended Results & Data Vital Signs (Past 12 Hours) Vital Signs Temp Pulse Pulse Resp BP BP Pulse Ox 12/24/23 14:13 37 C 92 H 20 188/66 H 93 12/24/23 13:46 37 C 87 20 188/66 H 93 12/24/23 13:21 36.5 C 86 18 173/77 H 94 12/24/23 12:46 36.7 C 83 18 183/76 H 89 L 12/24/23 12:16 36.9 C 76 20 176/76 H 93 12/24/23 12:00 36.4 C L 81 18 153/56 H 87 L 12/24/23 11:49 36.5 C 70 18 177/82 H 91 12/24/23 11:34 36.5 C 74 18 156/73 H 89 L 12/24/23 09:30 12/24/23 08:10 77 181/77 H 94 12/24/23 05:46 36.4 C L 82 17 135/64 94 O2 Del Method O2 Flow Rate 12/24/23 14:13 4.5 12/24/23 13:46 4.5 12/24/23 13:21 4.5 12/24/23 12:46 4 12/24/23 12:16 4 12/24/23 12:00 12/24/23 11:49 12/24/23 11:34 12/24/23 09:30 Nasal Cannula 1.5 12/24/23 08:10 Nasal Cannula 2 12/24/23 05:46 Nasal Cannula 2
[2023-12-24 17:03] LABS: Hematocrit (blood only) 29.3 % (37.0-47.0); Hemoglobin 8.9 g/dl (12.0-16.0)
[2023-12-24] MEDS: FUROSEMIDE 40 MG/4 ML VIAL IV ONE (17:40)
[2023-12-24 18:08] LABS: iSTAT Arterial Blood Gas HCO3 26 meg/L (19-24); iSTAT Arterial Blood Gas pCO2 101 mmHg (35-46); iSTAT Arterial Blood Gas pH 7.01 (7.35-7.45); iSTAT Arterial Blood Gas pO2 70 mmHg (80-95); iSTAT Carbon Dioxide 29 mmol/L (24-31); iSTAT Hematocrit 27 % (37-47); iSTAT Hemoglobin 9.2 g/dl (12.0-16.0); iSTAT Potassium 4.3 mmol/L (3.3-5.0); iSTAT Sodium 142 mmol/L (135-144)
--- NOTE | 2023-12-24 18:27 | Hospitalist Progress Note ---
Date of Service December 24, 2023 Assessment & Plan (1) Acute respiratory failure with hypoxia and hypercapnia: (2) Acute metabolic encephalopathy: (3) Acute heart failure with preserved ejection fraction: (4) Acute hyperactive delirium due to another medical condition: (5) Hypokalemia: (6) Adenocarcinoma of colon: (7) Status post right hemicolectomy: (8) COPD (chronic obstructive pulmonary disease): Plan Patient with acute hypoxic and hypercarbic respiratory failure in setting of COPD, medications including antipsychotics and benzodiazepines needed to control severe delirium and recent postoperative state. Stat ABG, chest x-ray ordered Patient started on BiPAP while still on the medical unit Patient is critically ill, transferred to the ICU Communication with event manager team Tomás and Dr. Javier-handoff performed at bedside IV Lasix x 1 for volume overload Sodium bicarb ordered for for stabilization until intubated Replace electrolytes as needed Patient intubated and placed on mechanical ventilation as per event manager team Phone call to patient's son, Santos, updated the patient being transferred to the unit and placed on the ventilator Follow ABG laboratory studies Patient chronically anemic, drop in hemoglobin expected postoperatively, may need to consider imaging of the abdomen to rule out more significant bleed Continue to coordinate and collaborate care with event manager team Admission and Anticipated Discharge Date Admission Date: December 22, 2023 Subjective Notified emergently by nursing this evening that patient is minimally responsive and hypoxic. Patient evaluated at the bedside immediately. Patient extremely lethargic and unarousable. Physical Exam Physical Exam: Constitutional: Somnolent and unarousable, moderate distress HEENT: Mucous membranes dry Neck: Soft, no adenopathy Lungs: Decreased breath sounds, coarse rhonchi, Rales at bases CV: S1-S2, tachycardic Abdomen: Soft, not distended, extensive bruising lower quadrants, surgical incision clean dry and intact Extremities: No significant edema Musculoskeletal: No swollen joints Neuro: Withdraws to vigorous stimulation Psych: Somnolent/lethargic/minimally responsive Results & Data Results & Data Vital Signs (Past 12 Hours) Vital Signs Temp Pulse Pulse Resp BP BP Pulse Ox 12/24/23 14:13 37 C 92 H 20 188/66 H 93 12/24/23 13:46 37 C 87 20 188/66 H 93 12/24/23 13:21 36.5 C 86 18 173/77 H 94 12/24/23 12:46 36.7 C 83 18 183/76 H 89 L 12/24/23 12:16 36.9 C 76 20 176/76 H 93 12/24/23 12:00 36.4 C L 81 18 153/56 H 87 L 12/24/23 11:49 36.5 C 70 18 177/82 H 91 12/24/23 11:34 36.5 C 74 18 156/73 H 89 L 12/24/23 09:30 12/24/23 08:10 77 181/77 H 94 O2 Del Method O2 Flow Rate 12/24/23 14:13 4.5 12/24/23 13:46 4.5 12/24/23 13:21 4.5 12/24/23 12:46 4 12/24/23 12:16 4 12/24/23 12:00 12/24/23 11:49 12/24/23 11:34 12/24/23 09:30 Nasal Cannula 1.5 12/24/23 08:10 Nasal Cannula 2 Diagnostic Findings Personally reviewed STAT chest x-ray, consistent with congestion, pulmonary edema Hemoglobin 8.9, posttransfusion ABG reviewed. pH 7.01, pCO2 101, pO2 70 Critical Care Time 69 minutes spent in bedside evaluation, immediate resuscitative services, coordination care, review of studies, communication with specialists, communication with family, transferring patient to higher level care
--- NOTE | 2023-12-24 18:37 | XRay Report ---
XR chest 1V portable HISTORY: 83 years-old Female low o2 acute hypoxia COMPARISON: 06/24/2023 TECHNIQUE: AP view of the chest FINDINGS: Cardiac silhouette is enlarged. Pulmonary vascular congestion. Interstitial coarsening with layering pleural effusions and mild bibasilar consolidation. No pneumothorax. Right paratracheal consolidative opacity measures 5 cm. Abdominal aortic endograft. Bones appear grossly intact. IMPRESSION: 1. Cardiomegaly with pulmonary edema and small pleural effusions. 2. 5 cm right paratracheal consolidative opacity is new from 06/24/2023 and favored to be artifactual. ACT 112: Negative or not required by law. The above report was generated using voice recognition software. It may contain grammatical, syntax o r spelling errors. Electronically signed by: Raúl Mcconnell M.D. 12/24/2023 6:36 PM
--- NOTE | 2023-12-24 18:37 | XRay Report ---
XR chest 1V portable HISTORY: 83 years-old Female intubation acute respiratory failure COMPARISON: Chest radiograph of same day TECHNIQUE: AP view of the chest FINDINGS: Cardiac silhouette is enlarged. Pulmonary vascular congestion with interstitial coarsening. Small ple ural effusions. No pneumothorax. The previously noted right paratracheal opacity is not seen. Endotra cheal tube overlies the midline, 3.4 cm superior to the lala. Enteric tube distal tip projects over the proximal stomach. A hiatal hernia. IMPRESSION: 1. Lines and tubes as above. 2. Cardiomegaly with pulmonary edema and small pleural effusions. 3. Previously noted right paratracheal opacity is not visualized, therefore was likely artifactual. ACT 112: Negative or not required by law. The above report was generated using voice recognition software. It may contain grammatical, syntax o r spelling errors. Electronically signed by: Raúl Mcconnell M.D. 12/24/2023 6:36 PM
[2023-12-24] MEDS ORDERED: STAT IV Infusion **Titration per Protocol STA (18:47)
--- NOTE | 2023-12-24 18:54 | Procedure Note ---
Procedure Note Date of Service December 24, 2023 Note ARTERIAL LINE PROCEDURE NOTE: Procedure: Arterial Line Placement Proceduralist: Jesus LAI ([facility] Attending: Dr. Javier Indication: Monitoring and frequent blood draws Anesthesia: Propofol infusion and IV fentanyl EMERGENT Consent was implied as patient is FULL CODE and just intubated for acute respiratory failure with severe respiratory acidosis. Frequent blood draws will be needed A time-out was completed verifying correct patient, procedure, site, positioning, and implant(s) or special equipment if applicable. Allens test was performed to ensure adequate perfusion. Patients RIOGHT wrist was prepped and draped in the usual sterile fashion. Under direct palpation, A 20g Arrow arterial line was introduced into the RIGHT RADIAL artery, brisk blood return was noted, the wire was advanced without resistance and the catheter was threaded. No immediate blood return noted, the catheter was then backed out until spurting blood was obtained, the wire was reintroduced without resistance and catheter was threaded. Appropriate blood return was noted and was connected to pressure tubing. Good waveform was observed. The patient tolerated the procedure well. The line was sutured in place and covered with steril dressing Blood Loss: Minimal Complications: None immediate Patient tolerated procedure: WELL Coding CPT Codes Tubes, Drains, and Vasc Access - Tubes, Drains, and Vasc Access: [id number] Arterial Cath/Cannulation Sampling/Monitoring/Transfusion ([id number]) [facility] [place] Procedure Codes (Charges) Tubes, Drains, and Vasc Access Procedure 1: Tubes, Drains, and Vasc Access: [id number] Arterial Cath/Cannulation Sampling/Monitoring/Transfusion
--- NOTE | 2023-12-24 18:54 | Critical Care Consultation ---
Date of Consultation December 24, 2023 Assessment & Plan (1) Acute metabolic encephalopathy: (2) Respiratory failure: (3) Required emergent intubation: (4) Acute hyperactive delirium due to another medical condition: (5) Adenocarcinoma of colon: (6) Status post right hemicolectomy: (7) COPD (chronic obstructive pulmonary disease): (8) CAD (coronary artery disease): Plan Reason Critically Ill: 83 YOF presents to the ICU emergently for hypercarbic respiratory failure resulting in stupor requiring emergent intubation. Neuro - Metabolic Encephalopathy, Sedation for mechanical ventilation CAM ICU: STEPHANY - Likely related at this time to elevation of CO2 > 100 and severe acidosis of 7.0 - Continue supportive care with correcting hypercarbia and acidosis - Propofol for sedation with goal DESHAUN -2 - Fentanyl PRN - Consider advanced imaging if no improvement or changes - Daily awakenings as well as SBT when appropriate Cardiac - CAD, HTN, HLD - chronic problems at this time with no acute needs - currently not requiring vasopressor agents Respiratory - Hypercarbic Respiratory failure requiring emergent intubation, COPD - At this time possibly related to sedative effects of medications- Trazadone, Narcotics, Zyprexa, Ativan - she is easy to ventilate and responding well to oxygen therapy so doubt PE at this time - Not overtly wheezing on exam so doubt COPD exacerbation- and CO2 rapidly corrected with mechanical ventilation - Mild pulmonary congestion- diurese following blood products- diurese - No opacities for infective cause and no evidence of TACO or TRALI - GI - S/p Colectomy - NPO for now - OGT placed to LIWS RENAL/LYTES - Respiratory acidosis, Hypokalemia - Acute respiratory acidosis as above - Replace electrolytes per ICU protocol - Malave placed while intubated and sedated ENDO - ICU hyperglycemia protocol HEME - Anemia, colon cancer - Anemia acute on chronic likely as normocytic/normochromic- OGT is without blood noted - Abdomen is soft and not distended- so doubt acute blood loss- HGB levels slowly trickled down over past few days- responded well to transfusion - Will trend HGB levels overnight consider imaging if trends back down or becomes hemodynamically unstable ID - No concern at this time for infectious etiology - follow pulmonary exam LINES/IV ACCESS - ETT, Arterial Line, Malave, OGT, Continue use of these lines DVT PROPHYLAXIS - SCDS, Lovenox DISPO: ICU while intubated and sedated I have personally spent 65f minutes of critical care time in the direct management of this patient. This is a life/limb threatening event. This includes time spent evaluating patient, direct bedside care, chart review, placing orders, interpretation of diagnostic studies, discussion with consultants, patient, and family members, as well as other required patient management activities. This time is exclusive of all separately billable procedures, and teaching time and separate from and in addition to any other critical care service time. Thank you for allowing us to participate in the care of this patient. Please refer to my attending physician's documentation for any further recommendations. History of Present Illness Reason for Consultation: Hypercarbic Respiratory Failure Requesting Physician: Artur Cunningham Attending Physician: Artur Cunningham DO History of Present Illness 83 YOF : with medical history of Breast cancer (left breast with mastectomy, CAD with 2 stents, Dpression, HLD, HTN. Patient presented to the hospital on December 21 for Laprascopic extended right hemicolectomy- secondary to overlapping malignant neoplasm. Per chart review appears she was recovering well, in regards to up out of bed as well as diet advancing. She however was experiencing delirium at night, for which she was receiving Zyprexa and received benzo today. At approx 1730 patient was found to be obtunded, requiring biPAP for support, she had an ABG performed that had PH at 7.01 and PaCO2 of 101. She was emergently brought down to the ICU, where she was immediately prepped for intubation as she remained somnolent and unarousable. She was with adequate HR, BP, and SPo2 with BiPAP support and appropriate Vt with head tilt and chin left. See separate procedure notes for intubation. Will place arterial line. CODE STATUS: FULL Allergies Allergy/AdvReac Type Severity Reaction Status Date / Time adhesive tape Allergy rash/itchy Verified 12/22/23 05:57 latex Allergy rash/itchy Verified 12/22/23 05:57 Home Medications Medication Instructions Recorded Confirmed Type acetaminophen 325 mg tablet 650 mg PO Q6H PRN Pain 06/06/22 12/22/23 History (Tylenol) albuterol sulfate 90 mcg/actuation 2 puff inhalation Q4 PRN Shortness 06/06/22 12/22/23 History aerosol inhaler (Ventolin HFA) Of Breath Or Wheezing clopidogrel 75 mg tablet 75 mg PO QAM 06/06/22 12/22/23 History docusate sodium 100 mg capsule 100 mg PO HS 06/06/22 12/22/23 History enalapril maleate 10 mg tablet 10 mg PO QAM 06/06/22 12/22/23 History ezetimibe 10 mg tablet 10 mg PO QAM 06/06/22 12/22/23 History bwegqtpsgubo-jcdenhjo-rarnnr tablet 1 tab PO DAILY 06/06/22 12/22/23 History nitroglycerin 0.4 mg sublingual 0.4 mg sublingual DIRECTED PRN 06/06/22 12/22/23 History tablet (Nitrostat) Chest Pain pantoprazole 20 mg tablet,delayed 20 mg PO QAM 06/06/22 12/22/23 History release polyethylene glycol 3350 17 gram 17 g PO DAILY PRN Constipation 06/06/22 12/22/23 History oral powder packet (Miralax) rosuvastatin 20 mg tablet 20 mg PO QPM 06/06/22 12/22/23 History isosorbide mononitrate 30 mg 30 mg PO QAM 06/24/23 12/22/23 History tablet,extended release 24 hr duloxetine 60 mg capsule,delayed 60 mg PO QAM 12/12/23 12/22/23 History release sprinkle iron,carbonyl 65 mg-vitamin C 125 1 tab PO Q2D 12/12/23 12/22/23 History mg tablet,delayed release (Vitron-C) metoprolol tartrate 25 mg tablet 25 mg PO QAM 12/12/23 12/22/23 History metronidazole 500 mg tablet 500 mg PO BID 12/12/23 12/22/23 History neomycin 500 mg tablet 500 mg PO UD 12/12/23 12/22/23 History ondansetron 8 mg disintegrating 8 mg PO UD 12/12/23 12/22/23 History tablet Patient History Medical History PVD (peripheral vascular disease) History of PVD with 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 shields, [facility] CAD (coronary artery disease) stent in LAD in 2001 and RCA in 2002, follows with [facility] cardiology Tobacco abuse hx Heart attack 05/31/2002 Surgical History Hx of left mastectomy History of esophagogastroduodenoscopy (EGD) Hx of colonoscopy Hx of local excision of skin lesion skin cancer Hx of cardiac cath 06/02/02, [facility], [facility] in [place], x1 stent 12/2002, "routine procedure that they knew would need to be done," [facility] in [place], x1 stent; f/u dr. brooks [facility] 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 stent graft 07/05/19, [facility], "thinks it had actually ruptured right when she got to the hospital"; excluder clips placed x6; has been monitored by dr. pope since this occurred. History of cataract removal with insertion of prosthetic lens right/left History of hysterectomy 1983 H/O heart artery stent 06/02/02, [facility] [place], [facility] in [place], x1 stent (Cordis) 01/03/03, "routine procedure that they knew would need to be done," [facility] in [place], x1 stent (Cordis); f/u dr. brooks [facility] Family History Mother CHF (congestive heart failure) Father Emphysema of lung Sister Brain tumor Social History Smoking Status: Former smoker Tobacco Type: Cigarettes Smoking End Date: 06/2019; Second Hand Exposure: Yes (hx as child); Do You Dip or Chew Tobacco: No; Tobacco Cessation Education Requested by Patient: No Hx Alcohol Use: Yes Alcohol type: wine Hx Substance Use: No Preferred Language: Cameroonian Communication Ability: Effective Communication Ability Comment: unable to assess since patient is intubated Artificial Limb Maker Required: No Beliefs That Will Affect Care: None marital status: / Current Living Situation: Alone current occupational status: retired Other Information That Helps Us Care for You: No Feels Safe at Home: Yes Safety Concerns: Feels Safe At This Time Assistive Devices: Cane Review of Systems Review of Systems: unable to be performed secondary to encephalopathy/stupor Physical Exam Physical Exam: PHYSICAL EXAM: General: stupor, not arousable to name, painful stimuli Head: Normocephalic, atraumatic ENT: PERRLA, EOMI, mucous membranes dry Neuro: AAO x 0, grimace to painful stimuli, no groaning or moaning, withdrawals to pain Chest: equal rise and fall of the chest, with accessory muscle use, riding the BiPAP backup rate, coarse breath sounds bilaterally Cardiac: Regular rate and rhythm, telemetry reviewed- NSR no ectopy, skin warm dry, cap refill <3 seconds, peripheral pulses +2 no JVD, no murmur, no JVD, no edema GI: NABS x 4 quadrants, soft, bruising noted to lower left quad and suprapubic as well as left flank- appears old and likely post surgical : Malave gravity placed Results & Data Results & Data Vital Signs (Past 12 Hours) Vital Signs Temp Pulse Pulse Resp BP BP Pulse Ox 12/24/23 18:10 115 H 20 97 12/24/23 17:45 189/102 H 83 L 12/24/23 17:45 95 H 20 85 L 12/24/23 17:40 185/93 H 85 L 12/24/23 17:30 143/65 H 40 L 12/24/23 14:13 37 C 92 H 20 188/66 H 93 12/24/23 13:46 37 C 87 20 188/66 H 93 12/24/23 13:21 36.5 C 86 18 173/77 H 94 12/24/23 12:46 36.7 C 83 18 183/76 H 89 L 12/24/23 12:16 36.9 C 76 20 176/76 H 93 12/24/23 12:00 36.4 C L 81 18 153/56 H 87 L 12/24/23 11:49 36.5 C 70 18 177/82 H 91 12/24/23 11:34 36.5 C 74 18 156/73 H 89 L 12/24/23 09:30 12/24/23 08:10 77 181/77 H 94 O2 Del Method O2 Flow Rate FiO2 12/24/23 18:10 100 12/24/23 17:45 Non-rebreather 15 12/24/23 17:45 100 12/24/23 17:40 Non-rebreather 15 12/24/23 17:30 Nasal Cannula 4.5 12/24/23 14:13 4.5 12/24/23 13:46 4.5 12/24/23 13:21 4.5 12/24/23 12:46 4 12/24/23 12:16 4 12/24/23 12:00 12/24/23 11:49 12/24/23 11:34 12/24/23 09:30 Nasal Cannula 1.5 12/24/23 08:10 Nasal Cannula 2 Laboratory Results Abnormal lab results 12/22/23 12/24/23 12/24/23 Range/Units 05:58 09:04 16:42 RBC 2.58 L (4.20-5.40) M/uL Hgb 6.8 L* 8.9 L (12.0-16.0) g/dl POC Hgb (12.0-16.0) g/dl Hct 22.5 L 29.3 L (37.0-47.0) % POC Hct (37-47) % MCHC 30.2 L (32.0-36.0) g/dL RDW Std Deviation 53.4 H (36.4-46.3) fL RDW Coeff of Adalid 17.2 H (11.5-14.5) % Neut # (Auto) 6.95 H (1.40-6.50) K/uL Lymph # (Auto) 0.50 L (1.20-3.40) K/uL Morrison # (Auto) 0.60 H (0.11-0.59) K/uL POC pH (7.35-7.45) POC pCO2 (35-46) mmHg POC pO2 (80-95) mmHg POC HCO3 (19-24) vinod/L POC ABG O2 Sat (90-95) % Potassium 3.4 L D (3.5-5.1) mmol/L Chloride 111 H (98-107) mmol/L BUN/Creatinine Ratio 9.3 L (10-20) Glucose 110 H (70-99(Fasting)) mg/dl Calcium 8.4 L (8.6-10.3) mg/dl Crossmatch See Detail 12/24/23 Range/Units 17:42 RBC (4.20-5.40) M/uL Hgb (12.0-16.0) g/dl POC Hgb 9.2 L (12.0-16.0) g/dl Hct (37.0-47.0) % POC Hct 27 L (37-47) % MCHC (32.0-36.0) g/dL RDW Std Deviation (36.4-46.3) fL RDW Coeff of Adalid (11.5-14.5) % Neut # (Auto) (1.40-6.50) K/uL Lymph # (Auto) (1.20-3.40) K/uL Morrison # (Auto) (0.11-0.59) K/uL POC pH 7.01 L* (7.35-7.45) POC pCO2 101 H (35-46) mmHg POC pO2 70 L (80-95) mmHg POC HCO3 26 H (19-24) vinod/L POC ABG O2 Sat 81.0 L (90-95) % Potassium (3.5-5.1) mmol/L Chloride (98-107) mmol/L BUN/Creatinine Ratio (10-20) Glucose (70-99(Fasting)) mg/dl Calcium (8.6-10.3) mg/dl Crossmatch Diagnostic Findings Chest X-Ray 12/24/23 17:33 XR chest 1V portable HISTORY: 83 years-old Female low o2 acute hypoxia COMPARISON: 06/24/2023 TECHNIQUE: AP view of the chest FINDINGS: Cardiac silhouette is enlarged. Pulmonary vascular congestion. Interstitial coarsening with layering pleural effusions and mild bibasilar consolidation. No pneumothorax. Right paratracheal consolidative opacity measures 5 cm. Abdominal aortic endograft. Bones appear grossly intact. IMPRESSION: 1. Cardiomegaly with pulmonary edema and small pleural effusions. 2. 5 cm right paratracheal consolidative opacity is new from 06/24/2023 and f avored to be artifactual. ACT 112: Negative or not required by law. The above report was generated using voice recognition software. It may contain grammatical, syntax or spelling errors. Electronically signed by: Raúl Mcconnell M.D. 12/24/2023 6:36 PM Chest X-Ray 12/24/23 18:09 XR chest 1V portable HISTORY: 83 years-old Female intubation acute respiratory failure COMPARISON: Chest radiograph of same day TECHNIQUE: AP view of the chest FINDINGS: Cardiac silhouette is enlarged. Pulmonary vascular congestion with interstitial coarsening. Small pleural effusions. No pneumothorax. The previously noted right paratracheal opacity is not seen. Endotracheal tube overlies the midline, 3.4 cm superior to the lala. Enteric tube distal tip projects over the proximal stomach. A hiatal hernia. IMPRESSION: 1. Lines and tubes as above. 2. Cardiomegaly with pulmonary edema and small pleural effusions. 3. Previously noted right paratracheal opacity is not visualized, therefore was likely artifactual. ACT 112: Negative or not required by law. The above report was generated using voice recognition software. It may contain grammatical, syntax or spelling errors. Electronically signed by: Raúl Mcconnell M.D. 12/24/2023 6:36 PM Coding Level of Care Code 01681 CRITICAL CARE 1ST 30-74M Diagnoses Acute metabolic encephalopathy G93.41 Respiratory failure J96.90 Required emergent intubation Z98.890 Acute hyperactive delirium due to another medical condition F05 Adenocarcinoma of colon C18.9 Status post right hemicolectomy Z90.49 COPD (chronic obstructive pulmonary disease) J44.9 CAD (coronary artery disease) I25.10
--- NOTE | 2023-12-24 18:54 | Procedure Note ---
Procedure Note Date of Service December 24, 2023 Note INTUBATION PROCEDURE NOTE: Proceduralist: Jesus LAI ([facility]) Attending: Dr. Javier Procedure was deemed emergent as patient was impending respiratory arrest and failing NIPPV Patient was evaluated and required intubation for Hypercarbic Respiratory failure, severe respiratory acidosis, and encephalopathy/sutpor Sedative agent used: Etomidate 20mg Paralysis agent used: Rocuronium 40mg Emergent consent was implied given patients rapidly declining clinical status and need for airway protection. The patient was prepared in the appropriate fashion. Sedation was achieved utilizing Etomidate and Rocuronium, per Dr. Pope's administration. The patient was easily ventilated using NIPVV, head tilt and chin lift. A 7.5 Setswana endotracheal tube was placed under 23 cm at the lip. The stylette was removed and balloon was inflated with 10mL of air. Appropriate Colorimetric change was appreciated. Bilateral breath sounds were heard without air sounds in the abdomen. Attempts x1 Dr. Pope was present for the entire procedure. Post Intubation Chest X-ray confirms placement without pneumothorax. Patient tolerated the procedure well and there were no immediate complications. Coding CPT Codes Resuscitation - Resuscitation: [id number] Endotracheal Intubation, emergency ([id number]) [facility] [place] Procedure Codes (Charges) Resuscitation Resuscitation: 84252 Endotracheal Intubation, emergency
[2023-12-24] MEDS: propofoL 1,000 MG/100 ML VIAL IV SCH (19:00)
[2023-12-24 19:31] LABS: iSTAT Art Bld Gas pCO2 Correct 43 mmHg (35-46); iSTAT Art Bld Gas pH Corrected 7.308 (7.35-7.45); iSTAT Arterial Blood Gas HCO3 22 meg/L (19-24); iSTAT Arterial Blood Gas pCO2 42 mmHg (35-46); iSTAT Arterial Blood Gas pH 7.31 (7.35-7.45); iSTAT Arterial Blood Gas pO2 123 mmHg (80-95); iSTAT Arterial Blood Gas pO2 C 125; iSTAT Carbon Dioxide 23 mmol/L (24-31); iSTAT FiO2 100 %; iSTAT Hematocrit 27 % (37-47); iSTAT Hemoglobin 9.2 g/dl (12.0-16.0); iSTAT Potassium 3.9 mmol/L (3.3-5.0); iSTAT Site Art Line; iSTAT Sodium 140 mmol/L (135-144)
[2023-12-24] MEDS: SODIUM BICARB 8.4% INJ 50 MEQ/50 ML SYR IV STA (19:38)
[2023-12-24 19:47] LABS: BUN Creatinine Ratio 9.7 (10-20); Calcium 9.1 mg/dl (8.6-10.3); Creatinine Clr Calc Pharmacy 40.2 ml/min; Est GFR (African American) 58.2 ml/min; Est GFR (Non-African American) 50.2 ml/min; Magnesium 1.4 mg/dl (1.7-2.4); Potassium 3.9 mmol/L (3.5-5.1)
[2023-12-24 19:56] LABS: Troponin I High Sensitivity 247.6 pg/ml (0-14)
[2023-12-24] MEDS: FUROSEMIDE INJ 20 MG/2 ML VIAL IV ONE (20:07)
[2023-12-24] MEDS: POTASSIUM CHLORIDE 20 MEQ/15 ML UDC PO STA (20:07)
[2023-12-24] MEDS: MAGNESIUM SULFATE / D5W 1 GM/100 ML BAG IV SCH (20:08)
[2023-12-24] MEDS ORDERED: traZODone HCL 50 MG TAB PO SCH (21:00)
[2023-12-24] MEDS: fentaNYL citrate PF 100 MCG/2 ML VIAL IV PRN (21:22)
[2023-12-24] MEDS: PROPOFOL BOLUS FROM BAG IV PRN (21:26)
[2023-12-24] MEDS ORDERED: ETOMIDATE 2 MG/ML 20 ML VIAL IV ONE (21:36)
[2023-12-24] MEDS ORDERED: fentaNYL citrate PF 100 MCG/2 ML VIAL IV ONE (21:36)
[2023-12-24] MEDS ORDERED: ROCURONIUM BROMIDE 10 MG/ML 5 ML VIAL IV ONE (21:36)
[2023-12-25 05:07] LABS: Basophils # (auto) 0.05 K/uL (0.00-0.20); Basophils % (auto) 0.6 %; Eosinophils # (auto) 0.14 K/uL (0.00-0.50); Eosinophils % (auto) 1.7 %; Hematocrit (blood only) 25.5 % (37.0-47.0); Hemoglobin 8.2 g/dl (12.0-16.0); Immature Granulocytes # (auto) 0.05 K/uL (0.01-0.20); Immature Granulocytes % (auto) 0.6 %; Lymphocytes % (auto) 11.2 %; Mean Corpuscular Hemoglobin 26.9 pg (25.0-34.0); Mean Corpuscular Hgb Conc 32.2 g/dL (32.0-36.0); Mean Corpuscular Volume 83.6 fL (80.0-100.0); Mean Platelet Volume 9.3 fL (9.4-12.4); Monocytes # (auto) 0.68 K/uL (0.11-0.59); Monocytes % (auto) 8.5 %; Neutrophils # (auto) 6.22 K/uL (1.40-6.50); Neutrophils % (auto) 77.4 %; Platelet Count 251 K/uL (130-400); RDW Coefficient of Variation 16.8 % (11.5-14.5); RDW Standard Deviation 51.3 fL (36.4-46.3); Red Blood Count 3.05 M/uL (4.20-5.40); White Blood Count 8.04 K/ul (4.8-10.8)
[2023-12-25 05:20] LABS: BUN Creatinine Ratio 8.8 (10-20); Calcium 8.7 mg/dl (8.6-10.3); Creatinine Clr Calc Pharmacy 36.7 ml/min; Est GFR (African American) 52.1 ml/min; Est GFR (Non-African American) 44.9 ml/min; Magnesium 2.2 mg/dl (1.7-2.4); Phosphorus 1.5 mg/dl (2.5-4.9); Potassium 3.7 mmol/L (3.5-5.1)
[2023-12-25] MEDS ORDERED: POTASSIUM PHOS 3 MMOL/1 ML INFUSION IV STA (05:40)
[2023-12-25] MEDS: ICU ELECTROLYTE REPLACEMENT PROTOCOL SCH (06:15)
[2023-12-25] MEDS: POTASSIUM PHOSPHATE 18 MMOL in SODIUM CHLORIDE 0.9% 500 ML IV ONE (06:16)
--- NOTE | 2023-12-25 07:27 | XRay Report ---
XR chest 1V portable HISTORY: 83 years-old Female eval lung machuca, ETT, OGT, acute respiratory failure COMPARISON: 12/24/2023 at 6:11 PM TECHNIQUE: AP view of the chest FINDINGS: Cardiac silhouette is enlarged. No pneumothorax. Trace right and small left pleural effusions with le ft basilar consolidation. Pulmonary vascular congestion with decreased interstitial coarsening. Endot jessie tube overlies the midline, 3.9 cm superior to the lala. An enteric tube distal tip projects over the stomach. Hiatal hernia. A vascular graft projects over the mid abdomen. IMPRESSION: 1. Lines and tubes as above. 2. Cardiomegaly with decreased pulmonary edema. 3. Left greater than right pleural effusions with left basilar consolidation. 4. Hiatal hernia. ACT 112: Negative or not required by law. The above report was generated using voice recognition software. It may contain grammatical, syntax o r spelling errors. Electronically signed by: Raúl Mcconnell M.D. 12/25/2023 7:25 AM
--- NOTE | 2023-12-25 07:53 | XRay Report ---
XR chest 1V portable HISTORY: 83 years-old Female eval lung machuca, ETT, OGT, acute respiratory failure COMPARISON: 12/24/2023 TECHNIQUE: AP view of the chest FINDINGS: Cardiac silhouette is enlarged. No pneumothorax. Trace right and small left pleural effusions with le ft basilar consolidation. Mild improved aeration of the left lung base. Pulmonary vascular congestion . Endotracheal tube overlies the midline, 3.9 cm superior to the lala. An enteric tube distal tip p rojects over the stomach. Hiatal hernia. A vascular graft projects over the mid abdomen. IMPRESSION: 1. Lines and tubes as above. 2. Mildly improved aeration of left lung base. 3. Trace pleural effusions. 4. Cardiomegaly with pulmonary vascular congestion. ACT 112: Negative or not required by law. The above report was generated using voice recognition software. It may contain grammatical, syntax o r spelling errors. Electronically signed by: Raúl Mcconnell M.D. 12/25/2023 7:52 AM
--- NOTE | 2023-12-25 08:08 | Communication Note ---
Date of Service: December 24, 2023 I was called by the nurse on the floor and approximately 5:15 December 24, 2023 and was informed that she was being sent to the ICU for respiratory distress. It went to see the patient at approximately 6:00 p.m. in the intensive care unit at which time she had been intubated. She had been found in her room asleep with a O2 saturation of 40%. She was emergently intubated and transferred to the ICU. At the time that I saw her, blood gas had normalized. Vitals were all stable and normal. Afebrile. Abdomen was soft and nondistended. I had discussion with her son and the ICU staff. She had received Ativan prior to the episode on the floor. Based on her clinical picture, her respiratory failure was most likely from a sedation due to the Ativan. We will keep her intubated in ventilated overnight an attempt to wean in the morning. In speaking with the son, all questions were answered. He has agreeable with the plan.
--- NOTE | 2023-12-25 08:10 | Surgery Progress Note ---
Date of Service December 25, 2023 Assessment & Plan (1) Respiratory failure: (2) Adenocarcinoma of colon: (3) Status post right hemicolectomy: Plan pod 3. S/p laparoscopic extended right hemicolectomy for colon cancer yesterday evening with respiratory distress requiring intubation. This was most likely from sedation due to Ativan for agitation. Attempt to wean vent this morning to switch her to pressure support if possible Replete electrolytes as necessary Continue monitoring hemoglobin and hematocrit ICU care appreciated Admission and Anticipated Discharge Date Admission Date: December 22, 2023 Subjective Intubated and sedated in the ICU. Afebrile. No apparent discomfort or pain. Physical Exam Physical Exam: Intubated and sedated No acute distress Abdomen: Soft, nondistended Incisions healing well without erythema or discharge Results & Data Vital Signs (Past 12 Hours) Vital Signs Temp Pulse Resp BP Pulse Ox O2 Del Method FiO2 12/25/23 07:48 37.4 C 76 19 96 Mechanical Vent 12/25/23 07:31 78 23 98 40 12/25/23 07:27 37.3 C 78 19 97 Mechanical Vent 12/25/23 07:00 37.2 C 78 19 99 Mechanical Vent 12/25/23 06:26 37.3 C 75 19 97 12/25/23 06:11 37.3 C 78 19 96 12/25/23 06:00 50 12/25/23 05:50 37.4 C 75 19 97 12/25/23 05:44 37.4 C 78 19 96 12/25/23 05:32 37.4 C 75 19 98 12/25/23 05:02 37.4 C 78 19 99 12/25/23 04:51 37.4 C 78 22 100 12/25/23 04:38 37.5 C 71 19 99 12/25/23 04:23 37.6 C H 76 19 98 12/25/23 04:00 37.6 C H 78 22 99 12/25/23 03:51 37.6 C H 72 22 99 12/25/23 03:21 37.6 C H 79 22 99 12/25/23 03:20 77 25 H 97 50 12/25/23 03:15 37.6 C H 81 22 100 12/25/23 02:51 37.7 C H 76 22 97 12/25/23 02:42 37.7 C H 77 22 97 12/25/23 02:36 50 12/25/23 02:30 37.8 C H 80 22 97 12/25/23 02:24 37.8 C H 83 22 97 12/25/23 02:12 37.8 C H 78 22 97 12/25/23 02:09 37.8 C H 80 22 97 12/25/23 01:54 37.9 C H 82 22 97 12/25/23 01:42 37.8 C H 77 22 99 12/25/23 01:33 37.9 C H 78 22 97 12/25/23 01:00 38.0 C H 86 22 96 12/25/23 00:54 38.0 C H 86 22 97 12/25/23 00:45 38.0 C H 78 22 98 12/25/23 00:30 38.0 C H 81 22 98 12/25/23 00:18 38.0 C H 79 22 96 12/25/23 00:00 38.1 C H 83 22 96 12/24/23 23:54 38.1 C H 79 22 97 12/24/23 23:45 38.1 C H 78 22 100 12/24/23 23:39 38.1 C H 80 22 93 12/24/23 23:03 38.0 C H 79 22 97 12/24/23 22:57 38.0 C H 79 22 95 12/24/23 22:45 38.0 C H 82 22 96 12/24/23 22:40 78 22 98 50 12/24/23 22:36 50 12/24/23 22:33 37.9 C H 78 22 99 12/24/23 22:33 137/72 12/24/23 22:33 137/72 12/24/23 22:25 185/104 H 12/24/23 22:21 38.0 C H 79 22 95 12/24/23 22:15 38.0 C H 77 22 98 12/24/23 22:00 37.9 C H 76 22 100 12/24/23 21:59 50 12/24/23 21:59 Mechanical Vent 12/24/23 21:51 38.0 C H 78 22 99 12/24/23 21:48 38.0 C H 74 22 97 12/24/23 21:21 37.9 C H 79 22 100 12/24/23 21:18 37.9 C H 84 22 99 12/24/23 21:00 37.7 C H 76 22 100 12/24/23 20:45 37.6 C H 74 22 100 12/24/23 20:33 37.6 C H 75 22 98 12/24/23 20:27 37.5 C 74 22 98 Laboratory Results 12/25/23 12/25/23 12/25/23 Range/Units 05:34 04:38 00:02 WBC 8.04 (4.8-10.8) K/ul RBC 3.05 L (4.20-5.40) M/uL Hgb 8.2 L (12.0-16.0) g/dl POC Hgb (12.0-16.0) g/dl Hct 25.5 L (37.0-47.0) % POC Hct (37-47) % MCV 83.6 (80.0-100.0) fL MCH 26.9 (25.0-34.0) pg MCHC 32.2 (32.0-36.0) g/dL RDW Std Deviation 51.3 H (36.4-46.3) fL RDW Coeff of Adalid 16.8 H (11.5-14.5) % Plt Count 251 (130-400) K/uL MPV 9.3 L (9.4-12.4) fL Immature Gran % (Auto) 0.6 % Neut % (Auto) 77.4 % Lymph % (Auto) 11.2 % [place] % (Auto) 8.5 % Eos % (Auto) 1.7 % Baso % (Auto) 0.6 % Neut # (Auto) 6.22 (1.40-6.50) K/uL Lymph # (Auto) 0.90 L (1.20-3.40) K/uL [place] # (Auto) 0.68 H (0.11-0.59) K/uL Eos # (Auto) 0.14 (0.00-0.50) K/uL Baso # (Auto) 0.05 (0.00-0.20) K/uL Immature Gran # (Auto) 0.05 (0.01-0.20) K/uL Polychromasia Poikilocytosis Sample Site POC pH (7.35-7.45) POC pCO2 (35-46) mmHg POC pO2 (80-95) mmHg POC HCO3 (19-24) vinod/L POC Total CO2 (24-31) mmol/L POC Base Excess (-9-1.8) vinod/L ABG pH (Temp Correct) (7.35-7.45) ABG pCO2 (Temp Corrct (35-46) mmHg POC ABG pO2 at Pt Temp POC ABG O2 Sat (90-95) % Jared Test O2 Delivery Device POC O2 Rate POC FiO2 % Tidal Volume PEEP POC Sodium (135-144) mmol/L Sodium 142 (136-145) mmol/L POC Potassium (3.3-5.0) mmol/L Potassium 3.7 (3.5-5.1) mmol/L Chloride 105 (98-107) mmol/L Carbon Dioxide 26 (21-32) mmol/L Anion Gap 11 (3-11) BUN 10 (6-23) mg/dl Creatinine 1.13 (0.6-1.2) mg/dl Est Cr Clr Drug Dosing 36.7 ml/min Est GFR ( Amer) 52.1 ml/min Est GFR (Non-Af Amer) 44.9 ml/min BUN/Creatinine Ratio 8.8 L (10-20) Glucose 84 (70-99(Fasting)) mg/dl POC Glucose 78 101 H (70-99) mg/dl Lactate (0.4-2.0) mmol/L Calcium 8.7 (8.6-10.3) mg/dl Phosphorus 1.5 L* D (2.5-4.9) mg/dl Magnesium 2.2 (1.7-2.4) mg/dl Troponin I High Sens (0-14) pg/ml Nasal Screen MRSA (PCR) (Negative) Blood Type Antibody Screen Crossmatch 12/24/23 12/24/23 12/24/23 Range/Units 20:15 19:18 19:06 WBC (4.8-10.8) K/ul RBC (4.20-5.40) M/uL Hgb (12.0-16.0) g/dl POC Hgb 9.2 L (12.0-16.0) g/dl Hct (37.0-47.0) % POC Hct 27 L (37-47) % MCV (80.0-100.0) fL MCH (25.0-34.0) pg MCHC (32.0-36.0) g/dL RDW Std Deviation (36.4-46.3) fL RDW Coeff of Adalid (11.5-14.5) % Plt Count (130-400) K/uL MPV (9.4-12.4) fL Immature Gran % (Auto) % Neut % (Auto) % Lymph % (Auto) % [place] % (Auto) % Eos % (Auto) % Baso % (Auto) % Neut # (Auto) (1.40-6.50) K/uL Lymph # (Auto) (1.20-3.40) K/uL [place] # (Auto) (0.11-0.59) K/uL Eos # (Auto) (0.00-0.50) K/uL Baso # (Auto) (0.00-0.20) K/uL Immature Gran # (Auto) (0.01-0.20) K/uL Polychromasia Poikilocytosis Sample Site Art Line POC pH 7.31 L (7.35-7.45) POC pCO2 42 (35-46) mmHg POC pO2 123 H (80-95) mmHg POC HCO3 22 (19-24) vinod/L POC Total CO2 23 L (24-31) mmol/L POC Base Excess -5.0 (-9-1.8) vinod/L ABG pH (Temp Correct) 7.308 L (7.35-7.45) ABG pCO2 (Temp Corrct 43 (35-46) mmHg POC ABG pO2 at Pt Temp 125 POC ABG O2 Sat 98.0 H (90-95) % Jared Test NA O2 Delivery Device Ventilator POC O2 Rate 22 POC FiO2 100 % Tidal Volume 380 PEEP 8 POC Sodium 140 (135-144) mmol/L Sodium 139 (136-145) mmol/L POC Potassium 3.9 (3.3-5.0) mmol/L Potassium 3.9 (3.5-5.1) mmol/L Chloride 109 H (98-107) mmol/L Carbon Dioxide 21 (21-32) mmol/L Anion Gap 9 (3-11) BUN 10 (6-23) mg/dl Creatinine 1.03 (0.6-1.2) mg/dl Est Cr Clr Drug Dosing 40.2 ml/min Est GFR ( Amer) 58.2 ml/min Est GFR (Non-Af Amer) 50.2 ml/min BUN/Creatinine Ratio 9.7 L (10-20) Glucose 144 H (70-99(Fasting)) mg/dl POC Glucose (70-99) mg/dl Lactate 0.8 (0.4-2.0) mmol/L Calcium 9.1 (8.6-10.3) mg/dl Phosphorus (2.5-4.9) mg/dl Magnesium 1.4 L (1.7-2.4) mg/dl Troponin I High Sens 247.6 H* (0-14) pg/ml Nasal Screen MRSA (PCR) Negative (Negative) Blood Type Antibody Screen Crossmatch 12/24/23 12/24/23 12/24/23 Range/Units 17:42 16:42 09:04 WBC 8.39 (4.8-10.8) K/ul RBC 2.58 L (4.20-5.40) M/uL Hgb 8.9 L 6.8 L* (12.0-16.0) g/dl POC Hgb 9.2 L (12.0-16.0) g/dl Hct 29.3 L 22.5 L (37.0-47.0) % POC Hct 27 L (37-47) % MCV 87.2 (80.0-100.0) fL MCH 26.4 (25.0-34.0) pg MCHC 30.2 L (32.0-36.0) g/dL RDW Std Deviation 53.4 H (36.4-46.3) fL RDW Coeff of Adalid 17.2 H (11.5-14.5) % Plt Count 245 (130-400) K/uL MPV 9.4 (9.4-12.4) fL Immature Gran % (Auto) 0.7 % Neut % (Auto) 82.7 % Lymph % (Auto) 6.0 % [place] % (Auto) 7.2 % Eos % (Auto) 2.9 % Baso % (Auto) 0.5 % Neut # (Auto) 6.95 H (1.40-6.50) K/uL Lymph # (Auto) 0.50 L (1.20-3.40) K/uL [place] # (Auto) 0.60 H (0.11-0.59) K/uL Eos # (Auto) 0.24 (0.00-0.50) K/uL Baso # (Auto) 0.04 (0.00-0.20) K/uL Immature Gran # (Auto) 0.06 (0.01-0.20) K/uL Polychromasia 1+ Poikilocytosis Present Sample Site POC pH 7.01 L* (7.35-7.45) POC pCO2 101 H (35-46) mmHg POC pO2 70 L (80-95) mmHg POC HCO3 26 H (19-24) vinod/L POC Total CO2 29 (24-31) mmol/L POC Base Excess -5.0 (-9-1.8) vinod/L ABG pH (Temp Correct) (7.35-7.45) ABG pCO2 (Temp Corrct (35-46) mmHg POC ABG pO2 at Pt Temp POC ABG O2 Sat 81.0 L (90-95) % Jared Test O2 Delivery Device POC O2 Rate POC FiO2 % Tidal Volume PEEP POC Sodium 142 (135-144) mmol/L Sodium 140 (136-145) mmol/L POC Potassium 4.3 (3.3-5.0) mmol/L Potassium 3.4 L D (3.5-5.1) mmol/L Chloride 111 H (98-107) mmol/L Carbon Dioxide 23 (21-32) mmol/L Anion Gap 6 (3-11) BUN 10 (6-23) mg/dl Creatinine 1.07 (0.6-1.2) mg/dl Est Cr Clr Drug Dosing 38.7 ml/min Est GFR ( Amer) 55.6 ml/min Est GFR (Non-Af Amer) 48.0 ml/min BUN/Creatinine Ratio 9.3 L (10-20) Glucose 110 H (70-99(Fasting)) mg/dl POC Glucose (70-99) mg/dl Lactate (0.4-2.0) mmol/L Calcium 8.4 L (8.6-10.3) mg/dl Phosphorus (2.5-4.9) mg/dl Magnesium (1.7-2.4) mg/dl Troponin I High Sens (0-14) pg/ml Nasal Screen MRSA (PCR) (Negative) Blood Type Antibody Screen Crossmatch 12/22/23 Range/Units 05:58 WBC (4.8-10.8) K/ul RBC (4.20-5.40) M/uL Hgb (12.0-16.0) g/dl POC Hgb (12.0-16.0) g/dl Hct (37.0-47.0) % POC Hct (37-47) % MCV (80.0-100.0) fL MCH (25.0-34.0) pg MCHC (32.0-36.0) g/dL RDW Std Deviation (36.4-46.3) fL RDW Coeff of Adalid (11.5-14.5) % Plt Count (130-400) K/uL MPV (9.4-12.4) fL Immature Gran % (Auto) % Neut % (Auto) % Lymph % (Auto) % [place] % (Auto) % Eos % (Auto) % Baso % (Auto) % Neut # (Auto) (1.40-6.50) K/uL Lymph # (Auto) (1.20-3.40) K/uL [place] # (Auto) (0.11-0.59) K/uL Eos # (Auto) (0.00-0.50) K/uL Baso # (Auto) (0.00-0.20) K/uL Immature Gran # (Auto) (0.01-0.20) K/uL Polychromasia Poikilocytosis Sample Site POC pH (7.35-7.45) POC pCO2 (35-46) mmHg POC pO2 (80-95) mmHg POC HCO3 (19-24) vinod/L POC Total CO2 (24-31) mmol/L POC Base Excess (-9-1.8) vinod/L ABG pH (Temp Correct) (7.35-7.45) ABG pCO2 (Temp Corrct (35-46) mmHg POC ABG pO2 at Pt Temp POC ABG O2 Sat (90-95) % Jared Test O2 Delivery Device POC O2 Rate POC FiO2 % Tidal Volume PEEP POC Sodium (135-144) mmol/L Sodium (136-145) mmol/L POC Potassium (3.3-5.0) mmol/L Potassium (3.5-5.1) mmol/L Chloride (98-107) mmol/L Carbon Dioxide (21-32) mmol/L Anion Gap (3-11) BUN (6-23) mg/dl Creatinine (0.6-1.2) mg/dl Est Cr Clr Drug Dosing ml/min Est GFR ( Amer) ml/min Est GFR (Non-Af Amer) ml/min BUN/Creatinine Ratio (10-20) Glucose (70-99(Fasting)) mg/dl POC Glucose (70-99) mg/dl Lactate (0.4-2.0) mmol/L Calcium (8.6-10.3) mg/dl Phosphorus (2.5-4.9) mg/dl Magnesium (1.7-2.4) mg/dl Troponin I High Sens (0-14) pg/ml Nasal Screen MRSA (PCR) (Negative) Blood Type A Negative Antibody Screen NEGATIVE Crossmatch See Detail
--- NOTE | 2023-12-25 09:51 | Critical Care Progress Note ---
Date of Service December 25, 2023 Assessment & Plan (1) Acute metabolic encephalopathy: (2) Respiratory failure: (3) Required emergent intubation: (4) Acute hyperactive delirium due to another medical condition: (5) Adenocarcinoma of colon: (6) Status post right hemicolectomy: (7) COPD (chronic obstructive pulmonary disease): (8) CAD (coronary artery disease): Plan Reason Critically Ill: 83 YOF presents to the ICU emergently for hypercarbic respiratory failure resulting in stupor requiring emergent intubation. Neuro - Metabolic Encephalopathy: Improved Cardiac - CAD, HTN, HLD - chronic problems at this time with no acute needs Respiratory - Hypercarbic Respiratory failure requiring emergent intubation, COPD -Suspect accumulation of medications and metabolites GI - S/p Colectomy - NPO for now - OGT placed to [facility] -nursing Malave protocol ENDO - ICU hyperglycemia protocol HEME - Anemia, colon cancer - Anemia acute on chronic likely as normocytic/normochromic- OGT is without blood noted -No indication for transfusion at this time ID - No concern at this time for infectious etiology LINES/IV ACCESS -discontinued arterial line and endotracheal tube DVT PROPHYLAXIS - SCDS, Lovenox DISPO: Stable for downgrade out of ICU Admission and Anticipated Discharge Date Admission Date: December 22, 2023 Subjective Patient liberated from ventilator. Minimal recollection of overnight events. Oriented to person place and self occasionally waxing and waning mental status Physical Exam Physical Exam: General: Alert. nontoxic. Skin: Warm, dry, Head: Atraumatic Ears, nose, mouth and throat: airway patent Cardiovascular: Normal peripheral perfusion Respiratory: no respiratory distress Gastrointestinal: Non distended Musculoskeletal: No deformity Results & Data Results & Data Vital Signs (Past 12 Hours) Vital Signs Temp Pulse Resp BP Pulse Ox O2 Del Method O2 Flow Rate 12/25/23 09:30 37.3 C 92 H 29 H 99 Oxymask 3 12/25/23 09:18 37.3 C 93 H 32 H 98 Oxymask 6 12/25/23 08:33 37.3 C 90 27 H 97 12/25/23 08:06 37.3 C 86 20 99 Mechanical Vent 12/25/23 08:04 151/71 H 12/25/23 08:04 151/71 H 12/25/23 07:57 37.3 C 76 17 97 Mechanical Vent 12/25/23 07:48 37.4 C 76 19 96 Mechanical Vent 12/25/23 07:31 78 23 98 12/25/23 07:27 37.3 C 78 19 97 Mechanical Vent 12/25/23 07:00 37.2 C 78 19 99 Mechanical Vent 12/25/23 06:26 37.3 C 75 19 97 12/25/23 06:11 37.3 C 78 19 96 12/25/23 06:00 12/25/23 05:50 37.4 C 75 19 97 12/25/23 05:44 37.4 C 78 19 96 12/25/23 05:32 37.4 C 75 19 98 12/25/23 05:02 37.4 C 78 19 99 12/25/23 04:51 37.4 C 78 22 100 12/25/23 04:38 37.5 C 71 19 99 12/25/23 04:23 37.6 C H 76 19 98 12/25/23 04:00 37.6 C H 78 22 99 12/25/23 03:51 37.6 C H 72 22 99 12/25/23 03:21 37.6 C H 79 22 99 12/25/23 03:20 77 25 H 97 12/25/23 03:15 37.6 C H 81 22 100 12/25/23 02:51 37.7 C H 76 22 97 12/25/23 02:42 37.7 C H 77 22 97 12/25/23 02:36 12/25/23 02:30 37.8 C H 80 22 97 12/25/23 02:24 37.8 C H 83 22 97 12/25/23 02:12 37.8 C H 78 22 97 12/25/23 02:09 37.8 C H 80 22 97 12/25/23 01:54 37.9 C H 82 22 97 12/25/23 01:42 37.8 C H 77 22 99 12/25/23 01:33 37.9 C H 78 22 97 12/25/23 01:00 38.0 C H 86 22 96 12/25/23 00:54 38.0 C H 86 22 97 12/25/23 00:45 38.0 C H 78 22 98 12/25/23 00:30 38.0 C H 81 22 98 12/25/23 00:18 38.0 C H 79 22 96 12/25/23 00:00 38.1 C H 83 22 96 12/24/23 23:54 38.1 C H 79 22 97 12/24/23 23:45 38.1 C H 78 22 100 12/24/23 23:39 38.1 C H 80 22 93 12/24/23 23:03 38.0 C H 79 22 97 12/24/23 22:57 38.0 C H 79 22 95 12/24/23 22:45 38.0 C H 82 22 96 12/24/23 22:40 78 22 98 12/24/23 22:36 12/24/23 22:33 37.9 C H 78 22 99 12/24/23 22:33 137/72 12/24/23 22:33 137/72 12/24/23 22:25 185/104 H 12/24/23 22:21 38.0 C H 79 22 95 12/24/23 22:15 38.0 C H 77 22 98 12/24/23 22:00 37.9 C H 76 22 100 12/24/23 21:59 12/24/23 21:59 Mechanical Vent 12/24/23 21:51 38.0 C H 78 22 99 FiO2 12/25/23 09:30 12/25/23 09:18 12/25/23 08:33 12/25/23 08:06 12/25/23 08:04 12/25/23 08:04 12/25/23 07:57 12/25/23 07:48 12/25/23 07:31 40 12/25/23 07:27 12/25/23 07:00 12/25/23 06:26 12/25/23 06:11 12/25/23 06:00 50 12/25/23 05:50 12/25/23 05:44 12/25/23 05:32 12/25/23 05:02 12/25/23 04:51 12/25/23 04:38 12/25/23 04:23 12/25/23 04:00 12/25/23 03:51 12/25/23 03:21 12/25/23 03:20 50 12/25/23 03:15 12/25/23 02:51 12/25/23 02:42 12/25/23 02:36 50 12/25/23 02:30 12/25/23 02:24 12/25/23 02:12 12/25/23 02:09 12/25/23 01:54 12/25/23 01:42 12/25/23 01:33 12/25/23 01:00 12/25/23 00:54 12/25/23 00:45 12/25/23 00:30 12/25/23 00:18 12/25/23 00:00 12/24/23 23:54 12/24/23 23:45 12/24/23 23:39 12/24/23 23:03 12/24/23 22:57 12/24/23 22:45 12/24/23 22:40 50 12/24/23 22:36 50 12/24/23 22:33 12/24/23 22:33 12/24/23 22:33 12/24/23 22:25 12/24/23 22:21 12/24/23 22:15 12/24/23 22:00 12/24/23 21:59 50 12/24/23 21:59 12/24/23 21:51 Critical Care Results & Data Vital Signs (Past 12 Hours) Vital Signs Temp Pulse Resp BP Pulse Ox O2 Del Method O2 Flow Rate 12/25/23 09:30 37.3 C 92 H 29 H 99 Oxymask 3 12/25/23 09:18 37.3 C 93 H 32 H 98 Oxymask 6 12/25/23 08:33 37.3 C 90 27 H 97 12/25/23 08:06 37.3 C 86 20 99 Mechanical Vent 12/25/23 08:04 151/71 H 12/25/23 08:04 151/71 H 12/25/23 07:57 37.3 C 76 17 97 Mechanical Vent 12/25/23 07:48 37.4 C 76 19 96 Mechanical Vent 12/25/23 07:31 78 23 98 12/25/23 07:27 37.3 C 78 19 97 Mechanical Vent 12/25/23 07:00 37.2 C 78 19 99 Mechanical Vent 12/25/23 06:26 37.3 C 75 19 97 12/25/23 06:11 37.3 C 78 19 96 12/25/23 06:00 12/25/23 05:50 37.4 C 75 19 97 12/25/23 05:44 37.4 C 78 19 96 12/25/23 05:32 37.4 C 75 19 98 12/25/23 05:02 37.4 C 78 19 99 12/25/23 04:51 37.4 C 78 22 100 12/25/23 04:38 37.5 C 71 19 99 12/25/23 04:23 37.6 C H 76 19 98 12/25/23 04:00 37.6 C H 78 22 99 12/25/23 03:51 37.6 C H 72 22 99 12/25/23 03:21 37.6 C H 79 22 99 12/25/23 03:20 77 25 H 97 12/25/23 03:15 37.6 C H 81 22 100 12/25/23 02:51 37.7 C H 76 22 97 12/25/23 02:42 37.7 C H 77 22 97 12/25/23 02:36 12/25/23 02:30 37.8 C H 80 22 97 12/25/23 02:24 37.8 C H 83 22 97 12/25/23 02:12 37.8 C H 78 22 97 12/25/23 02:09 37.8 C H 80 22 97 12/25/23 01:54 37.9 C H 82 22 97 12/25/23 01:42 37.8 C H 77 22 99 12/25/23 01:33 37.9 C H 78 22 97 12/25/23 01:00 38.0 C H 86 22 96 12/25/23 00:54 38.0 C H 86 22 97 12/25/23 00:45 38.0 C H 78 22 98 12/25/23 00:30 38.0 C H 81 22 98 12/25/23 00:18 38.0 C H 79 22 96 12/25/23 00:00 38.1 C H 83 22 96 12/24/23 23:54 38.1 C H 79 22 97 12/24/23 23:45 38.1 C H 78 22 100 12/24/23 23:39 38.1 C H 80 22 93 12/24/23 23:03 38.0 C H 79 22 97 12/24/23 22:57 38.0 C H 79 22 95 12/24/23 22:45 38.0 C H 82 22 96 12/24/23 22:40 78 22 98 12/24/23 22:36 12/24/23 22:33 37.9 C H 78 22 99 12/24/23 22:33 137/72 12/24/23 22:33 137/72 12/24/23 22:25 185/104 H 12/24/23 22:21 38.0 C H 79 22 95 12/24/23 22:15 38.0 C H 77 22 98 12/24/23 22:00 37.9 C H 76 22 100 12/24/23 21:59 12/24/23 21:59 Mechanical Vent 12/24/23 21:51 38.0 C H 78 22 99 FiO2 12/25/23 09:30 12/25/23 09:18 12/25/23 08:33 12/25/23 08:06 12/25/23 08:04 12/25/23 08:04 12/25/23 07:57 12/25/23 07:48 12/25/23 07:31 40 12/25/23 07:27 12/25/23 07:00 12/25/23 06:26 12/25/23 06:11 12/25/23 06:00 50 12/25/23 05:50 12/25/23 05:44 12/25/23 05:32 12/25/23 05:02 12/25/23 04:51 12/25/23 04:38 12/25/23 04:23 12/25/23 04:00 12/25/23 03:51 12/25/23 03:21 12/25/23 03:20 50 12/25/23 03:15 12/25/23 02:51 12/25/23 02:42 12/25/23 02:36 50 12/25/23 02:30 12/25/23 02:24 12/25/23 02:12 12/25/23 02:09 12/25/23 01:54 12/25/23 01:42 12/25/23 01:33 12/25/23 01:00 12/25/23 00:54 12/25/23 00:45 12/25/23 00:30 12/25/23 00:18 12/25/23 00:00 12/24/23 23:54 12/24/23 23:45 12/24/23 23:39 12/24/23 23:03 12/24/23 22:57 12/24/23 22:45 12/24/23 22:40 50 12/24/23 22:36 50 12/24/23 22:33 12/24/23 22:33 12/24/23 22:33 12/24/23 22:25 12/24/23 22:21 12/24/23 22:15 12/24/23 22:00 12/24/23 21:59 50 12/24/23 21:59 12/24/23 21:51 Lab & Micro Results (Past 24 Hours) RBC 3.05 M/uL (4.20-5.40) L 12/25/23 WBC 8.04 K/ul (4.8-10.8) 12/25/23 Hgb 8.2 g/dl (12.0-16.0) L 12/25/23 Hct 25.5 % (37.0-47.0) L 12/25/23 MCV 83.6 fL (80.0-100.0) 12/25/23 MCH 26.9 pg (25.0-34.0) 12/25/23 MCHC 32.2 g/dL (32.0-36.0) 12/25/23 RDW Standard Deviation 51.3 fL (36.4-46.3) H 12/25/23 RDW Coefficient of Variation 16.8 % (11.5-14.5) H 12/25/23 Plt Count 251 K/uL (130-400) 12/25/23 MPV 9.3 fL (9.4-12.4) L 12/25/23 Neutrophils (%) (Auto) 77.4 % 12/25/23 Lymphocytes (%) (Auto) 11.2 % 12/25/23 Monocytes # (Auto) 0.68 K/uL (0.11-0.59) H 12/25/23 Eosinophils # (Auto) 0.14 K/uL (0.00-0.50) 12/25/23 Immature Granulocyte % (Auto) 0.6 % 12/25/23 Neutrophils # (Auto) 6.22 K/uL (1.40-6.50) 12/25/23 Lymphocytes # (Auto) 0.90 K/uL (1.20-3.40) L 12/25/23 Monocytes # (Auto) 0.68 K/uL (0.11-0.59) H 12/25/23 Eosinophils # (Auto) 0.14 K/uL (0.00-0.50) 12/25/23 Basophils # (Auto) 0.05 K/uL (0.00-0.20) 12/25/23 Immature Granulocyte # (Auto) 0.05 K/uL (0.01-0.20) 4 Na 142 mmol/L (136-145) 12/25/23 K 3.7 mmol/L (3.5-5.1) 12/25/23 Cl 105 mmol/L (98-107) 12/25/23 CO2 26 mmol/L (21-32) 12/25/23 Anion Gap 11 (3-11) 12/25/23 BUN 10 mg/dl (6-23) 12/25/23 Creatinine 1.13 mg/dl (0.6-1.2) 12/25/23 Estimated GFR ( Amer) 52.1 ml/min 12/25/23 Estimated GFR (Non-Af Amer) 44.9 ml/min 12/25/23 BUN/Creatinine Ratio 8.8 (10-20) L 12/25/23 Glu 84 mg/dl (70-99(Fasting)) 12/25/23 Ca 8.7 mg/dl (8.6-10.3) 12/25/23 Phosphorus Level 1.5 mg/dl (2.5-4.9) L* 12/25/23 Mg 2.2 mg/dl (1.7-2.4) 12/25/23 04:38 Calcium Level 8.7 mg/dl (8.6-10.3) 12/25/23 04:38 Jared Test NA 12/24/23 19:18 Diagnostic Findings (Past 24 Hours) Chest X-Ray 12/24/23 17:33 XR chest 1V portable HISTORY: 83 years-old Female low o2 acute hypoxia COMPARISON: 06/24/2023 TECHNIQUE: AP view of the chest FINDINGS: Cardiac silhouette is enlarged. Pulmonary vascular congestion. Interstitial coarsening with layering pleural effusions and mild bibasilar consolidation. No pneumothorax. Right paratracheal consolidative opacity measures 5 cm. Abdominal aortic endograft. Bones appear grossly intact. IMPRESSION: 1. Cardiomegaly with pulmonary edema and small pleural effusions. 2. 5 cm right paratracheal consolidative opacity is new from 06/24/2023 and favored to be artifactual. ACT 112: Negative or not required by law. The above report was generated using voice recognition software. It may contain grammatical, syntax or spelling errors. Electronically signed by: Raúl Mcconnell M.D. 12/24/2023 6:36 PM Chest X-Ray 12/24/23 18:09 XR chest 1V portable HISTORY: 83 years-old Female intubation acute respiratory failure COMPARISON: Chest radiograph of same day TECHNIQUE: AP view of the chest FINDINGS: Cardiac silhouette is enlarged. Pulmonary vascular congestion with interstitial coarsening. Small pleural effusions. No pneumothorax. The previously noted right paratracheal opacity is not seen. Endotracheal tube overlies the midline, 3.4 cm superior to the lala. Enteric tube distal tip projects over the proximal stomach. A hiatal hernia. IMPRESSION: 1. Lines and tubes as above. 2. Cardiomegaly with pulmonary edema and small pleural effusions. 3. Previously noted right paratracheal opacity is not visualized, therefore was likely artifactual. ACT 112: Negative or not required by law. The above report was generated using voice recognition software. It may contain grammatical, syntax or spelling errors. Electronically signed by: Raúl Mcconnell M.D. 12/24/2023 6:36 PM Chest X-Ray 12/24/23 22:00 XR chest 1V portable HISTORY: 83 years-old Female eval lung machuca, ETT, OGT, acute respiratory failure COMPARISON: 12/24/2023 at 6:11 PM TECHNIQUE: AP view of the chest FINDINGS: Cardiac silhouette is enlarged. No pneumothorax. Trace right and small left pleural effusions with left basilar consolidation. Pulmonary vascular congestion with decreased interstitial coarsening. Endotracheal tube overlies the midline, 3.9 cm superior to the lala. An enteric tube distal tip projects over the stomach. Hiatal hernia. A vascular graft projects over the mid abdomen. IMPRESSION: 1. Lines and tubes as above. 2. Cardiomegaly with decreased pulmonary edema. 3. Left greater than right pleural effusions with left basilar consolidation. 4. Hiatal hernia. ACT 112: Negative or not required by law. The above report was generated using voice recognition software. It may contain grammatical, syntax or spelling errors. Electronically signed by: Raúl Mcconnell M.D. 12/25/2023 7:25 AM Chest X-Ray 12/25/23 22:00 XR chest 1V portable HISTORY: 83 years-old Female eval lung machuca, ETT, OGT, acute respiratory failure COMPARISON: 12/24/2023 TECHNIQUE: AP view of the chest FINDINGS: Cardiac silhouette is enlarged. No pneumothorax. Trace right and small left pleural effusions with left basilar consolidation. Mild improved aeration of the left lung base. Pulmonary vascular congestion. Endotracheal tube overlies the midline, 3.9 cm superior to the lala. An enteric tube distal tip projects over the stomach. Hiatal hernia. A vascular graft projects over the mid abdomen. IMPRESSION: 1. Lines and tubes as above. 2. Mildly improved aeration of left lung base. 3. Trace pleural effusions. 4. Cardiomegaly with pulmonary vascular congestion. ACT 112: Negative or not required by law. The above report was generated using voice recognition software. It may contain grammatical, syntax or spelling errors. Electronically signed by: Raúl Mcconnell M.D. 12/25/2023 7:52 AM I & O Totals 24 Hours 12/24/23 12/25/23 12/26/23 06:59 06:59 06:59 Intake Total 3400 / 3400 691.517 / 691.517 71.050 / 71.050 Output Total 451 / 451 2250 / 2250 175 / 175 Balance 2949 / 2949 -1558.483 / -1558.483 -103.950 / -103.950 Cumulative 12/12/23 09:03 thru 12/25/23 09:32 Intake Total 7045.900 Output Total 4056 Balance 2989.900 RT Ventilator Mngmt (Last Documented) Ventilator Ordered Settings Ventilator Support Mode Assist Control 12/25/23 07:31 Respiratory Rate 29 07/11/24 09:30 Ventilator Tidal Volume 380 12/25/23 07:31 Setting Minute Ventilation 8.3 12/25/23 07:31 Positive End Expiratory 5 12/25/23 0 7:31 Pressure Fraction of Inspired Oxygen 40 12/25/23 07:31 Ventilator - PT Measurements Respiratory Rate 29 Exhaled Tidal Volume 380 Minute Ventilation 8.3 Peak Inspiratory Airway 18 Pressure Plateau Pressure 13.8 Respiratory Cycle Inspiratory: 1:2.4 Expiratory Ratio Inspiratory Phase Time 0.8 End-Tidal CO2 25 Static Lung Compliance 43.18 Dynamic Lung Compliance 29.23 Normal Static Lung Compliance 47.00 Coding Level of Care Code 81882 SUB INP/OBS CARE 3/50MIN Diagnoses Acute metabolic encephalopathy G93.41 Respiratory failure J96.90 Required emergent intubation Z98.890 Acute hyperactive delirium due to another medical condition F05 Adenocarcinoma of colon C18.9 Status post right hemicolectomy Z90.49 COPD (chronic obstructive pulmonary disease) J44.9 CAD (coronary artery disease) I25.10
[2023-12-25] MEDS: PANTOprazole 40 MG in SYRINGE 0 ML IV SCH (11:12)
--- NOTE | 2023-12-25 13:34 | Electrocardiogram Report ---
Test Reason : Blood Pressure : / mmHG Vent. Rate : 105 BPM Atrial Rate : 105 BPM P-R Int : 170 ms QRS Dur : 094 ms QT Int : 344 ms P-R-T Axes : 068 021 000 degrees QTc Int : [address] depression, consider subendocardial injury Abnormal ECG When compared with ECG of 24-JUN-2023 05:28, Vent. rate has increased BY [address] now depressed in Anterolateral leads Nonspecific T wave abnormality no longer evident in Anterior leads Confirmed by Neymar Greenfield ([id number]) on 12/25/2023 1:34:15 PM Referred By: Pedro Peace Confirmed By:Evens Greenfield
--- NOTE | 2023-12-25 14:19 | Hospitalist Progress Note ---
Date of Service December 25, 2023 Assessment & Plan (1) Acute respiratory failure with hypoxia and hypercapnia: (2) Acute metabolic encephalopathy: (3) Acute heart failure with preserved ejection fraction: (4) Acute hyperactive delirium due to another medical condition: (5) Adenocarcinoma of colon: (6) Status post right hemicolectomy: (7) COPD (chronic obstructive pulmonary disease): Plan Extensive conversation with the grapple yarder operator team, will continue to monitor patient's respiratory status. Continue to try and manage patient's behaviors and confusions with non-medicine interventions. Replace phosphorus Phone conversation with patient's son, updated her to her condition 56 minutes in coordinating care, communication with specialist, communication with family, review of records Admission and Anticipated Discharge Date Admission Date: December 22, 2023 Subjective Patient did well overnight, extubated this morning. Still quite confused and ag itated at times. Physical Exam Physical Exam: Constitutional: Alert, confused HEENT: Mucous membranes moist. Lungs: Clear to auscultation, improved rales and rhonchi compared to yesterday CV: S1-S2, regular Abdomen: Soft, no distention, mild incisional tenderness Extremities: No significant edema Neuro: Confused, generalized weakness Psych: Cooperative, normal mood Results & Data Results & Data Vital Signs (Past 12 Hours) Vital Signs Temp Pulse Resp BP Pulse Ox O2 Del Method O2 Flow Rate 12/25/23 14:03 36.7 C 96 H 20 89 L 12/25/23 14:00 151/80 H 12/25/23 13:54 36.7 C 97 H 22 96 12/25/23 13:12 36.7 C 89 21 87 L 12/25/23 13:00 129/76 12/25/23 12:57 36.8 C 93 H 24 96 12/25/23 12:36 36.9 C 94 H 20 89 L 12/25/23 11:51 36.9 C 83 21 98 12/25/23 11:51 150/92 H 12/25/23 11:51 150/92 H 12/25/23 11:30 36.9 C 95 H 25 H 12/25/23 11:28 149/77 H 12/25/23 11:28 149/77 H 12/25/23 11:28 149/77 H 12/25/23 11:06 37.1 C 98 H 28 H 95 Oxymask 3 12/25/23 10:30 37.1 C 85 20 95 12/25/23 10:09 37.2 C 104 H 31 H 81 L 12/25/23 09:30 37.3 C 92 H 29 H 99 Oxymask 3 12/25/23 09:18 37.3 C 93 H 32 H 98 Oxymask 6 12/25/23 08:33 37.3 C 90 27 H 97 12/25/23 08:06 37.3 C 86 20 99 Mechanical Vent 12/25/23 08:04 151/71 H 12/25/23 08:04 151/71 H 12/25/23 07:57 37.3 C 76 17 97 Mechanical Vent 12/25/23 07:48 37.4 C 76 19 96 Mechanical Vent 12/25/23 07:31 78 23 98 12/25/23 07:27 37.3 C 78 19 97 Mechanical Vent 12/25/23 07:00 37.2 C 78 19 99 Mechanical Vent 12/25/23 06:26 37.3 C 75 19 97 12/25/23 06:11 37.3 C 78 19 96 12/25/23 06:00 12/25/23 05:50 37.4 C 75 19 97 12/25/23 05:44 37.4 C 78 19 96 12/25/23 05:32 37.4 C 75 19 98 12/25/23 05:02 37.4 C 78 19 99 12/25/23 04:51 37.4 C 78 22 100 12/25/23 04:38 37.5 C 71 19 99 12/25/23 04:23 37.6 C H 76 19 98 12/25/23 04:00 37.6 C H 78 22 99 12/25/23 03:51 37.6 C H 72 22 99 12/25/23 03:21 37.6 C H 79 22 99 12/25/23 03:20 77 25 H 97 12/25/23 03:15 37.6 C H 81 22 100 12/25/23 02:51 37.7 C H 76 22 97 12/25/23 02:42 37.7 C H 77 22 97 12/25/23 02:36 12/25/23 02:30 37.8 C H 80 22 97 12/25/23 02:24 37.8 C H 83 22 97 FiO2 12/25/23 14:03 12/25/23 14:00 12/25/23 13:54 12/25/23 13:12 12/25/23 13:00 12/25/23 12:57 12/25/23 12:36 12/25/23 11:51 12/25/23 11:51 12/25/23 11:51 12/25/23 11:30 12/25/23 11:28 12/25/23 11:28 12/25/23 11:28 12/25/23 11:06 12/25/23 10:30 12/25/23 10:09 12/25/23 09:30 12/25/23 09:18 12/25/23 08:33 12/25/23 08:06 12/25/23 08:04 12/25/23 08:04 12/25/23 07:57 12/25/23 07:48 12/25/23 07:31 40 12/25/23 07:27 12/25/23 07:00 12/25/23 06:26 12/25/23 06:11 12/25/23 06:00 50 12/25/23 05:50 12/25/23 05:44 12/25/23 05:32 12/25/23 05:02 12/25/23 04:51 12/25/23 04:38 12/25/23 04:23 12/25/23 04:00 12/25/23 03:51 12/25/23 03:21 12/25/23 03:20 50 12/25/23 03:15 12/25/23 02:51 12/25/23 02:42 12/25/23 02:36 50 12/25/23 02:30 12/25/23 02:24 Diagnostic Findings Reviewed imaging, laboratory and diagnostic studies. Pertinent findings as below. Personally reviewed chest x-ray, improved pulmonary edema when compared yesterday ABGs reviewed, acidosis improved Hemoglobin stable Phosphorus 1.5
[2023-12-26 04:52] LABS: Basophils # (auto) 0.07 K/uL (0.00-0.20); Basophils % (auto) 0.9 %; Eosinophils # (auto) 0.42 K/uL (0.00-0.50); Eosinophils % (auto) 5.2 %; Hematocrit (blood only) 30.1 % (37.0-47.0); Hemoglobin 9.4 g/dl (12.0-16.0); Immature Granulocytes # (auto) 0.05 K/uL (0.01-0.20); Immature Granulocytes % (auto) 0.6 %; Lymphocytes # (auto) 0.73 K/uL (1.20-3.40); Mean Corpuscular Hemoglobin 26.7 pg (25.0-34.0); Mean Corpuscular Hgb Conc 31.2 g/dL (32.0-36.0); Mean Corpuscular Volume 85.5 fL (80.0-100.0); Mean Platelet Volume 9.3 fL (9.4-12.4); Monocytes # (auto) 0.57 K/uL (0.11-0.59); Neutrophils # (auto) 6.28 K/uL (1.40-6.50); Neutrophils % (auto) 77.3 %; Platelet Count 277 K/uL (130-400); RDW Coefficient of Variation 17.2 % (11.5-14.5); RDW Standard Deviation 53.8 fL (36.4-46.3); Red Blood Count 3.52 M/uL (4.20-5.40); White Blood Count 8.12 K/ul (4.8-10.8)
[2023-12-26 05:14] LABS: BUN Creatinine Ratio 10.8 (10-20); Calcium 8.7 mg/dl (8.6-10.3); Creatinine Clr Calc Pharmacy 37.3 ml/min; Est GFR (African American) 53.2 ml/min; Est GFR (Non-African American) 45.9 ml/min; Magnesium 1.8 mg/dl (1.7-2.4); Phosphorus 2.6 mg/dl (2.5-4.9); Potassium 3.8 mmol/L (3.5-5.1)
[2023-12-26] MEDS: MAGNESIUM SULFATE / D5W 1 GM/100 ML BAG IV SCH (07:21)
[2023-12-26] MEDS: POTASSIUM CHLORIDE / WTR 10 MEQ/100 ML PLCT IV SCH (07:22)
--- NOTE | 2023-12-26 09:33 | Surgery Progress Note ---
Date of Service December 26, 2023 Assessment & Plan (1) Respiratory failure: (2) Adenocarcinoma of colon: (3) Status post right hemicolectomy: Plan pod 4. S/p laparoscopic extended right hemicolectomy for colon cancer extubated and doing well on nasal cannula clear liquid diet, advance as tolerated Replete electrolytes as necessary Continue monitoring hemoglobin and hematocrit ICU care appreciated Admission and Anticipated Discharge Date Admission Date: December 22, 2023 Subjective off ventilator. Still slightly confused. Minimal abdominal pain. No nausea or vomiting. Complaining of throat irritation. Physical Exam Physical Exam: Alert and oriented to person and place No acute distress Abdomen: Soft, nondistended Incisions healing well without erythema or discharge Results & Data Vital Signs (Past 12 Hours) Vital Signs Temp Pulse Resp BP BP Pulse Ox 12/26/23 06:29 155/71 H 12/26/23 06:15 37.1 C 84 30 H 87 L 12/26/23 05:06 37.2 C 86 23 96 12/26/23 05:00 131/68 12/26/23 05:00 131/68 12/26/23 04:57 37.2 C 88 30 H 100 12/26/23 04:00 37.1 C 83 31 H 97 12/26/23 03:00 37.1 C 81 29 H 100 12/26/23 03:00 142/73 H 12/26/23 02:15 37.1 C 83 22 12/26/23 02:00 129/77 12/26/23 01:30 37.2 C 90 27 H 97 12/26/23 01:00 128/69 12/26/23 01:00 37.3 C 82 29 H 99 12/26/23 00:09 37.2 C 79 29 H 93 12/26/23 00:00 142/70 H 12/25/23 23:57 37.2 C 79 29 H 90 12/25/23 23:00 144/73 H 12/25/23 22:03 37.6 C H 76 26 H 100 12/25/23 22:00 126/62 12/25/23 21:45 37.7 C H 82 20 94 Laboratory Results 12/26/23 12/26/23 12/25/23 Range/Units 06:15 04:27 23:50 WBC 8.12 (4.8-10.8) K/ul RBC 3.52 L (4.20-5.40) M/uL Hgb 9.4 L (12.0-16.0) g/dl Hct 30.1 L (37.0-47.0) % MCV 85.5 (80.0-100.0) fL MCH 26.7 (25.0-34.0) pg MCHC 31.2 L (32.0-36.0) g/dL RDW Std Deviation 53.8 H (36.4-46.3) fL RDW Coeff of Adalid 17.2 H (11.5-14.5) % Plt Count 277 (130-400) K/uL MPV 9.3 L (9.4-12.4) fL Immature Gran % (Auto) 0.6 % Neut % (Auto) 77.3 % Lymph % (Auto) 9.0 % [place] % (Auto) 7.0 % Eos % (Auto) 5.2 % Baso % (Auto) 0.9 % Neut # (Auto) 6.28 (1.40-6.50) K/uL Lymph # (Auto) 0.73 L (1.20-3.40) K/uL [place] # (Auto) 0.57 (0.11-0.59) K/uL Eos # (Auto) 0.42 (0.00-0.50) K/uL Baso # (Auto) 0.07 (0.00-0.20) K/uL Immature Gran # (Auto) 0.05 (0.01-0.20) K/uL Sodium 142 (136-145) mmol/L Potassium 3.8 (3.5-5.1) mmol/L Chloride 106 (98-107) mmol/L Carbon Dioxide 29 (21-32) mmol/L Anion Gap 7 (3-11) BUN 12 (6-23) mg/dl Creatinine 1.11 (0.6-1.2) mg/dl Est Cr Clr Drug Dosing 37.3 ml/min Est GFR ( Amer) 53.2 ml/min Est GFR (Non-Af Amer) 45.9 ml/min BUN/Creatinine Ratio 10.8 (10-20) Glucose 86 (70-99(Fasting)) mg/dl POC Glucose 77 90 (70-99) mg/dl Calcium 8.7 (8.6-10.3) mg/dl Phosphorus 2.6 D (2.5-4.9) mg/dl Magnesium 1.8 (1.7-2.4) mg/dl 12/25/23 12/25/23 Range/Units 18:30 14:10 WBC (4.8-10.8) K/ul RBC (4.20-5.40) M/uL Hgb (12.0-16.0) g/dl Hct (37.0-47.0) % MCV (80.0-100.0) fL MCH (25.0-34.0) pg MCHC (32.0-36.0) g/dL RDW Std Deviation (36.4-46.3) fL RDW Coeff of Adalid (11.5-14.5) % Plt Count (130-400) K/uL MPV (9.4-12.4) fL Immature Gran % (Auto) % Neut % (Auto) % Lymph % (Auto) % [place] % (Auto) % Eos % (Auto) % Baso % (Auto) % Neut # (Auto) (1.40-6.50) K/uL Lymph # (Auto) (1.20-3.40) K/uL [place] # (Auto) (0.11-0.59) K/uL Eos # (Auto) (0.00-0.50) K/uL Baso # (Auto) (0.00-0.20) K/uL Immature Gran # (Auto) (0.01-0.20) K/uL Sodium (136-145) mmol/L Potassium (3.5-5.1) mmol/L Chloride (98-107) mmol/L Carbon Dioxide (21-32) mmol/L Anion Gap (3-11) BUN (6-23) mg/dl Creatinine (0.6-1.2) mg/dl Est Cr Clr Drug Dosing ml/min Est GFR ( Amer) ml/min Est GFR (Non-Af Amer) ml/min BUN/Creatinine Ratio (10-20) Glucose (70-99(Fasting)) mg/dl POC Glucose 97 105 H (70-99) mg/dl Calcium (8.6-10.3) mg/dl Phosphorus (2.5-4.9) mg/dl Magnesium (1.7-2.4) mg/dl
--- NOTE | 2023-12-26 09:34 | Critical Care Progress Note ---
Date of Service December 26, 2023 Assessment & Plan (1) Acute metabolic encephalopathy: (2) Respiratory failure: (3) Required emergent intubation: (4) Acute hyperactive delirium due to another medical condition: (5) Adenocarcinoma of colon: (6) Status post right hemicolectomy: (7) COPD (chronic obstructive pulmonary disease): (8) CAD (coronary artery disease): Plan Reason Critically Ill: 83 YOF presents to the ICU emergently for hypercarbic respiratory failure resulting in stupor requiring emergent intubation. Neuro - Metabolic Encephalopathy: Resolved Cardiac - CAD, HTN, HLD - chronic problems at this time with no acute needs Respiratory - Hypercarbic Respiratory failure requiring emergent intubation, COPD -Suspect accumulation of medications and metabolites GI - S/p Colectomy -Progress diet as tolerated -nursing Malave protocol HEME - Anemia, colon cancer - Anemia acute on chronic likely as normocytic/normochromic- ID - No concern at this time for infectious etiology LINES/IV ACCESS -discontinued arterial line and endotracheal tube DVT PROPHYLAXIS - SCDS, Lovenox DISPO: Stable for downgrade out of ICU Admission and Anticipated Discharge Date Admission Date: December 22, 2023 Subjective Alert oriented clear insight and understanding. Abdominal pain described as soreness. Desires to get up and attempt walking. Physical Exam Physical Exam: General: Alert. nontoxic. Skin: Warm, dry, Head: Atraumatic Ears, nose, mouth and throat: airway patent Cardiovascular: Normal peripheral perfusion Respiratory: no respiratory distress Gastrointestinal: Non distended Musculoskeletal: No deformity Results & Data Results & Data Vital Signs (Past 12 Hours) Vital Signs Temp Pulse Resp BP BP Pulse Ox 12/26/23 06:29 155/71 H 12/26/23 06:15 37.1 C 84 30 H 87 L 12/26/23 05:06 37.2 C 86 23 96 12/26/23 05:00 131/68 12/26/23 05:00 131/68 12/26/23 04:57 37.2 C 88 30 H 100 12/26/23 04:00 37.1 C 83 31 H 97 12/26/23 03:00 37.1 C 81 29 H 100 12/26/23 03:00 142/73 H 12/26/23 02:15 37.1 C 83 22 12/26/23 02:00 129/77 12/26/23 01:30 37.2 C 90 27 H 97 12/26/23 01:00 128/69 12/26/23 01:00 37.3 C 82 29 H 99 12/26/23 00:09 37.2 C 79 29 H 93 12/26/23 00:00 142/70 H 12/25/23 23:57 37.2 C 79 29 H 90 12/25/23 23:00 144/73 H 12/25/23 22:03 37.6 C H 76 26 H 100 12/25/23 22:00 126/62 12/25/23 21:45 37.7 C H 82 20 94 Critical Care Results & Data Vital Signs (Past 12 Hours) Vital Signs Temp Pulse Resp BP BP Pulse Ox 12/26/23 06:29 155/71 H 12/26/23 06:15 37.1 C 84 30 H 87 L 12/26/23 05:06 37.2 C 86 23 96 12/26/23 05:00 131/68 12/26/23 05:00 131/68 12/26/23 04:57 37.2 C 88 30 H 100 12/26/23 04:00 37.1 C 83 31 H 97 12/26/23 03:00 37.1 C 81 29 H 100 12/26/23 03:00 142/73 H 12/26/23 02:15 37.1 C 83 22 12/26/23 02:00 129/77 12/26/23 01:30 37.2 C 90 27 H 97 12/26/23 01:00 128/69 12/26/23 01:00 37.3 C 82 29 H 99 12/26/23 00:09 37.2 C 79 29 H 93 12/26/23 00:00 142/70 H 12/25/23 23:57 37.2 C 79 29 H 90 12/25/23 23:00 144/73 H 12/25/23 22:03 37.6 C H 76 26 H 100 12/25/23 22:00 126/62 12/25/23 21:45 37.7 C H 82 20 94 Lab & Micro Results (Past 24 Hours) RBC 3.52 M/uL (4.20-5.40) L 12/26/23 WBC 8.12 K/ul (4.8-10.8) 12/26/23 Hgb 9.4 g/dl (12.0-16.0) L 12/26/23 Hct 30.1 % (37.0-47.0) L 12/26/23 MCV 85.5 fL (80.0-100.0) 12/26/23 MCH 26.7 pg (25.0-34.0) 12/26/23 MCHC 31.2 g/dL (32.0-36.0) L 12/26/23 RDW Standard Deviation 53.8 fL (36.4-46.3) H 12/26/23 RDW Coefficient of Variation 17.2 % (11.5-14.5) H 12/26/23 Plt Count 277 K/uL (130-400) 12/26/23 MPV 9.3 fL (9.4-12.4) L 12/26/23 Neutrophils (%) (Auto) 77.3 % 12/26/23 Lymphocytes (%) (Auto) 9.0 % 12/26/23 Monocytes # (Auto) 0.57 K/uL (0.11-0.59) 12/26/23 Eosinophils # (Auto) 0.42 K/uL (0.00-0.50) 12/26/23 Immature Granulocyte % (Auto) 0.6 % 12/26/23 Neutrophils # (Auto) 6.28 K/uL (1.40-6.50) 12/26/23 Lymphocytes # (Auto) 0.73 K/uL (1.20-3.40) L 12/26/23 Monocytes # (Auto) 0.57 K/uL (0.11-0.59) 12/26/23 Eosinophils # (Auto) 0.42 K/uL (0.00-0.50) 12/26/23 Basophils # (Auto) 0.07 K/uL (0.00-0.20) 12/26/23 Immature Granulocyte # (Auto) 0.05 K/uL (0.01-0.20) 4 Na 142 mmol/L (136-145) 12/26/23 K 3.8 mmol/L (3.5-5.1) 12/26/23 Cl 106 mmol/L (98-107) 12/26/23 CO2 29 mmol/L (21-32) 12/26/23 Anion Gap 7 (3-11) 12/26/23 BUN 12 mg/dl (6-23) 12/26/23 Creatinine 1.11 mg/dl (0.6-1.2) 12/26/23 Estimated GFR ( Amer) 53.2 ml/min 12/26/23 Estimated GFR (Non-Af Amer) 45.9 ml/min 12/26/23 BUN/Creatinine Ratio 10.8 (10-20) 12/26/23 Glu 86 mg/dl (70-99(Fasting)) 12/26/23 Ca 8.7 mg/dl (8.6-10.3) 12/26/23 Phosphorus Level 2.6 mg/dl (2.5-4.9) 12/26/23 Mg 1.8 mg/dl (1.7-2.4) 12/26/23 04:27 Calcium Level 8.7 mg/dl (8.6-10.3) 12/26/23 04:27 I & O Totals 24 Hours 12/25/23 12/26/23 12/27/23 06:59 06:59 06:59 Intake Total 691.517 / 691.517 651.360 / 651.360 286.666 / 286.666 Output Total 2250 / 2250 443 / 443 Balance -1558.483 / -1558.483 208.360 / 208.360 286.666 / 286.666 Cumulative 12/12/23 09:03 thru 12/26/23 09:19 Intake Total 7912.876 Output Total 4324 Balance 3588.876 RT Ventilator Mngmt (Last Documented) Ventilator Ordered Settings Ventilator Support Mode Assist Control 12/25/23 07:31 Respiratory Rate 30 12/26/23 06:15 Ventilator Tidal Volume 380 12/25/23 07:31 Setting Minute Ventilation 8.3 12/25/23 07:31 Positive End Expiratory 5 12/25/23 07:31 Pressure Fraction of Inspired Oxygen 40 12/25/23 07:31 Ventilator - PT Measurements Respiratory Rate 30 Exhaled Tidal Volume 380 Minute Ventilation 8.3 Peak Inspiratory Airway 18 Pressure Plateau Pressure 13.8 Respiratory Cycle Inspiratory: 1:2.4 Expiratory Ratio Inspiratory Phase Time 0.8 End-Tidal CO2 25 Static Lung Compliance 43.18 Dynamic Lung Compliance 29.23 Normal Static Lung Compliance 47.00 Coding Level of Care Code 89243 SUB INP/OBS CARE 2/35MIN Diagnoses Acute metabolic encephalopathy G93.41 Respiratory failure J96.90 Required emergent intubation Z98.890 Acute hyperactive delirium due to another medical condition F05 Adenocarcinoma of colon C18.9 Status post right hemicolectomy Z90.49 COPD (chronic obstructive pulmonary disease) J44.9 CAD (coronary artery disease) I25.10
--- NOTE | 2023-12-26 09:44 | XRay Report ---
XR chest 1V portable HISTORY: Resp failure COMPARISON: Chest 12/25/2023. FINDINGS: The lines and tubes have been removed. An abdominal aortic stent graft is again noted. Trac e bilateral pleural effusions, unchanged. Patchy left basilar densities persist. No evidence for pulm onary edema. The cardiac silhouette remains mildly enlarged. No acute fractures. IMPRESSION: 1. The lines and tubes have been removed. 2. Trace bilateral pleural effusions and a left basilar density persists. ACT 112: Negative or not required by law. Electronically signed by: Ty William M.D. 12/26/2023 9:43 AM
--- NOTE | 2023-12-26 10:53 | Hospitalist Progress Note ---
Date of Service December 26, 2023 Assessment & Plan (1) Acute hyperactive delirium due to another medical condition: (2) Acute metabolic encephalopathy: (3) Adenocarcinoma of colon: (4) Status post right hemicolectomy: (5) COPD (chronic obstructive pulmonary disease): (6) Acute heart failure with preserved ejection fraction: (7) Acute respiratory failure with hypoxia and hypercapnia: Plan Patient 83-year-old female status post hemicolectomy due to adenocarcinoma of the colon transferred to the ICU due to acute hypoxic and hypercarbic respiratory failure in the setting of acute delirium caused by her generalized medical condition. Patient's respiratory status is improved. Has been off the ventilator now for greater than 24 hours. Able to be transferred to the Med[facility] unit Continue to monitor laboratory studies Therapies Continue to treat delirium with non-medicine interventions. Avoid benzodiazepines and antipsychotics Continue other medications as ordered Anticipate will need rehabilitation/fci facility Advance diet as suggested by surgery Phone call to Santos [place], updated 43 minuts spent in coordination of care, communication with providers, family, review of record and examination the patient Admission and Anticipated Discharge Date Admission Date: December 22, 2023 Subjective Patient's behaviors have been labile throughout the last 24 hours. Has been managed by redirection and one-to-one observation. Avoiding's antipsychotics and benzodiazepines. Physical Exam Physical Exam: Constitutional: Alert, sitting up in bed HEENT: Mucous membranes moist. Lungs: Clear to auscultation, decreased, rales improved CV: S1-S2, regular Abdomen: Soft, nondistended, mild incisional tenderness Extremities: No significant edema Neuro: No focal deficits, confused Psych: Cooperative at this time. One-to-one sitter with patient. Behavior is labile Results & Data Results & Data Vital Signs (Past 12 Hours) Vital Signs Temp Pulse Resp BP BP Pulse Ox O2 Del Method 12/26/23 10:03 138/71 12/26/23 10:03 138/71 12/26/23 10:03 37.2 C 98 H 19 12/26/23 10:00 132/68 12/26/23 10:00 132/68 12/26/23 10:00 132/68 12/26/23 09:56 125/80 12/26/23 09:54 37.1 C 112 H 20 94 Room Air 12/26/23 09:53 106/70 12/26/23 09:51 37.1 C 100 H 21 96 Room Air 12/26/23 09:51 145/74 H 12/26/23 09:51 145/74 H 12/26/23 09:46 148/80 H 12/26/23 09:46 148/80 H 12/26/23 09:45 37.1 C 89 22 93 Room Air 12/26/23 09:09 37.0 C 84 21 93 Room Air 12/26/23 09:00 161/80 H 12/26/23 09:00 161/80 H 12/26/23 08:51 36.9 C 87 21 92 Room Air 12/26/23 08:03 37.0 C 86 23 94 Oxymask 12/26/23 08:00 147/79 H 12/26/23 07:48 37.1 C 84 25 H 94 Oxymask 12/26/23 07:15 37.1 C 85 18 94 Oxymask 12/26/23 07:00 144/66 H 12/26/23 07:00 144/66 H 12/26/23 06:36 37.0 C 88 27 H Oxymask 12/26/23 06:29 155/71 H 12/26/23 06:27 155/71 H 12/26/23 06:27 155/71 H 12/26/23 06:15 37.1 C 84 30 H 87 L 12/26/23 05:06 37.2 C 86 23 96 12/26/23 05:00 131/68 12/26/23 05:00 131/68 12/26/23 04:57 37.2 C 88 30 H 100 12/26/23 04:00 37.1 C 83 31 H 97 12/26/23 03:00 37.1 C 81 29 H 100 12/26/23 03:00 142/73 H 12/26/23 02:15 37.1 C 83 22 12/26/23 02:00 129/77 12/26/23 01:30 37.2 C 90 27 H 97 12/26/23 01:00 128/69 12/26/23 01:00 37.3 C 82 29 H 99 12/26/23 00:09 37.2 C 79 29 H 93 12/26/23 00:00 142/70 H 12/25/23 23:57 37.2 C 79 29 H 90 12/25/23 23:00 144/73 H O2 Flow Rate 12/26/23 10:03 12/26/23 10:03 12/26/23 10:03 12/26/23 10:00 12/26/23 10:00 12/26/23 10:00 12/26/23 09:56 12/26/23 09:54 12/26/23 09:53 12/26/23 09:51 12/26/23 09:51 12/26/23 09:51 12/26/23 09:46 12/26/23 09:46 12/26/23 09:45 12/26/23 09:09 12/26/23 09:00 12/26/23 09:00 12/26/23 08:51 12/26/23 08:03 1 12/26/23 08:00 12/26/23 07:48 3 12/26/23 07:15 3 12/26/23 07:00 12/26/23 07:00 12/26/23 06:36 3 12/26/23 06:29 12/26/23 06:27 12/26/23 06:27 12/26/23 06:15 12/26/23 05:06 12/26/23 05:00 12/26/23 05:00 12/26/23 04:57 12/26/23 04:00 12/26/23 03:00 12/26/23 03:00 12/26/23 02:15 12/26/23 02:00 12/26/23 01:30 12/26/23 01:00 12/26/23 01:00 12/26/23 00:09 12/26/23 00:00 12/25/23 23:57 12/25/23 23:00 Diagnostic Findings Reviewed imaging, laboratory and diagnostic studies. Pertinent findings as below. Hemoglobin 9.4, stable, improving Electrolytes improved, in normal ranges Creatinine 1.1 Personally reviewed chest x-ray images, pulmonary congestion significantly improved Reviewed echocardiogram report, ejection fraction 70%, no evidence of pulmonary hypertension
[2023-12-27] MEDS: HALOPERIDOL LACTATE 5 MG/ML 1 ML VIAL IM STA ×2 (00:52→01:26)
[2023-12-27] MEDS ORDERED: HALOPERIDOL LACTATE 5 MG/ML 1 ML VIAL IM PRN ×2 (01:16→22:42)
[2023-12-27 08:19] LABS: Basophils # (auto) 0.06 K/uL (0.00-0.20); Eosinophils # (auto) 0.32 K/uL (0.00-0.50); Eosinophils % (auto) 5.4 %; Hematocrit (blood only) 30.4 % (37.0-47.0); Hemoglobin 9.5 g/dl (12.0-16.0); Immature Granulocytes # (auto) 0.04 K/uL (0.01-0.20); Immature Granulocytes % (auto) 0.7 %; Lymphocytes # (auto) 0.72 K/uL (1.20-3.40); Lymphocytes % (auto) 12.2 %; Mean Corpuscular Hemoglobin 26.5 pg (25.0-34.0); Mean Corpuscular Hgb Conc 31.3 g/dL (32.0-36.0); Mean Corpuscular Volume 84.9 fL (80.0-100.0); Mean Platelet Volume 9.3 fL (9.4-12.4); Monocytes # (auto) 0.69 K/uL (0.11-0.59); Monocytes % (auto) 11.7 %; Neutrophils # (auto) 4.07 K/uL (1.40-6.50); Platelet Count 278 K/uL (130-400); RDW Coefficient of Variation 17.2 % (11.5-14.5); RDW Standard Deviation 53.1 fL (36.4-46.3); Red Blood Count 3.58 M/uL (4.20-5.40)
[2023-12-27 08:20] LABS: BUN Creatinine Ratio 12.4 (10-20); Calcium 8.6 mg/dl (8.6-10.3); Creatinine Clr Calc Pharmacy 36.7 ml/min; Est GFR (African American) 52.1 ml/min; Est GFR (Non-African American) 44.9 ml/min; Phosphorus 2.3 mg/dl (2.5-4.9); Potassium 3.8 mmol/L (3.5-5.1)
--- NOTE | 2023-12-27 10:16 | Surgery Progress Note ---
<Statement entered by Chay Sweet DO - 12/27/23 13:51> I seen and examined this patient with the surgical [employer]ANCE [employer]. Patient is doing well from surgical standpoint I agree with this plan Date of Service December 27, 2023 Assessment & Plan (1) H/O right hemicolectomy: Plan: POD [address] Peace increased confusion over night was placed in restrains from a surgical standpoint pt doing well, bowel are functioning tolerating reg diet H/H stable , on lovenox for DVT prevention incisions CDI dermabond , expected abd wall ecchymosis vss Admission and Anticipated Discharge Date Admission Date: December 22, 2023 Subjective pt denies abd pain having BMs Review of Systems Review of Systems: All systems reviewed & are unremarkable except as noted in HPI & below Physical Exam Constitutional: cooperative and comfortable; no acute distress Respiratory: normal respiratory effort; no respiratory distress Cardiovascular: Rate/Rhythm: regular rate Gastrointestinal (Abdomen): Inspection/Auscultation: + abdominal surgical incision (CDI dermabond no s/s infection noted ); abdomen not distended Percussion/Palpation: abdomen soft Psychiatric: Orientation: oriented to person Results & Data Vital Signs (Past 12 Hours) Vital Signs Temp Pulse Resp BP Pulse Ox O2 Del Method 12/27/23 08:12 97.3 F L 85 16 179/83 H 92 Room Air 12/27/23 00:43 93 Room Air Results CBC w Diff Results: RBC 3.58 M/uL (4.20-5.40) L 12/27/23 WBC 5.90 K/ul (4.8-10.8) 12/27/23 Hgb 9.5 g/dl (12.0-16.0) L 12/27/23 Hct 30.4 % (37.0-47.0) L 12/27/23 MCV 84.9 fL (80.0-100.0) 12/27/23 MCH 26.5 pg (25.0-34.0) 12/27/23 MCHC 31.3 g/dL (32.0-36.0) L 12/27/23 RDW Standard Deviation 53.1 fL (36.4-46.3) H 12/27/23 RDW Coefficient of Variation 17.2 % (11.5-14.5) H 12/27/23 Plt Count 278 K/uL (130-400) 12/27/23 MPV 9.3 fL (9.4-12.4) L 12/27/23 Neutrophils (%) (Auto) 69.0 % 12/27/23 Lymphocytes (%) (Auto) 12.2 % 12/27/23 Monocytes # (Auto) 0.69 K/uL (0.11-0.59) H 12/27/23 Eosinophils # (Auto) 0.32 K/uL (0.00-0.50) 12/27/23 Immature Granulocyte % (Auto) 0.7 % 12/27/23 Neutrophils # (Auto) 4.07 K/uL (1.40-6.50) 12/27/23 Lymphocytes # (Auto) 0.72 K/uL (1.20-3.40) L 12/27/23 Monocytes # (Auto) 0.69 K/uL (0.11-0.59) H 12/27/23 Eosinophils # (Auto) 0.32 K/uL (0.00-0.50) 12/27/23 Basophils # (Auto) 0.06 K/uL (0.00-0.20) 12/27/23 Immature Granulocyte # (Auto) 0.04 K/uL (0.01-0.20) 4 Polychromasia 1+ 12/24/23 Poikilocytosis Present 12/24/23 Echinocytes 2+ 07/07/19 Ovalocytes 1+ 12/23/23 PG Care Time/CCT Total # of Minutes Spent Total Time Spent with Patient: Total time spent is greater than 50% in coordination of care (as documented) at patient's floor/unit and/or counseling patient: Coding Level of Care Code 19105 Post Operative Follow-Up Diagnoses H/O right hemicolectomy Z90.49
[2023-12-27 12:38] LABS: HCO3 ABG 28 mmol/L (19-24); PCO2 ABG 47 mmHg (35-46); PO2 ABG 54 mmHg (80-95); pH ABG 7.38 (7.35-7.45)
[2023-12-27 12:49] LABS: Oxygen Saturation ABG 86.1 % (90-95)
[2023-12-27 12:50] LABS: Allen Test Pos (Pos)
--- NOTE | 2023-12-27 14:40 | Hospitalist Progress Note ---
Date of Service December 27, 2023 Assessment & Plan (1) Acute hyperactive delirium due to another medical condition: (2) Acute metabolic encephalopathy: (3) Adenocarcinoma of colon: (4) Status post right hemicolectomy: (5) COPD (chronic obstructive pulmonary disease): (6) Acute heart failure with preserved ejection fraction: (7) Acute respiratory failure with hypoxia and hypercapnia: Plan Patient with continued delirium status post right hemicolectomy surgery as well as respiratory failure due to hypercarbia. Patient a bit more drowsy later this morning. ABG performed, no evidence of hypercarbia, suspect due to the fact the patient not sleep well overnight Patient was moved out of ICU to a new room late last night, this may have exacerbated her delirium. Advance diet Continue to provide supportive measures for delirium Updated patient's son, Santos, via phone. Admission and Anticipated Discharge Date Admission Date: December 22, 2023 Subjective Patient was up through most the night. Physical Exam Physical Exam: Constitutional: Alert, confused HEENT: Mucous membranes moist. Lungs: Clear to auscultation, decreased, no wheezes rales or rhonchi CV: S1-S2, regular Abdomen: Soft, mild incisional tenderness Extremities: No significant edema Neuro: No focal deficits, delirium Psych: Cooperative, normal mood Results & Data Results & Data Vital Signs (Past 12 Hours) Vital Signs Temp Pulse Resp BP Pulse Ox O2 Del Method O2 Flow Rate 12/27/23 14:10 36.5 C 63 18 138/72 98 Nasal Cannula 2 12/27/23 08:12 36.3 C L 85 16 179/83 H 92 Room Air Diagnostic Findings Reviewed imaging, laboratory and diagnostic studies. Pertinent findings as below. CBC stable ABG reviewed, no significant hypercarbia
[2023-12-27 22:37] LABS: Allen Test Pos (Pos); Base Excess ABG 0.1 mEq/L (-9-1.8); HCO3 ABG 24 mmol/L (19-24); Oxygen Saturation ABG 97.7 % (90-95); PCO2 ABG 35 mmHg (35-46); PO2 ABG 80 mmHg (80-95); pH ABG 7.44 (7.35-7.45)
[2023-12-27 22:45] LABS: Appearance Urine Cloudy (Clear); Bacteria Urine Automated None Seen (None Seen); Bilirubin Urine Negative (Negative); Blood Urine 3+ (Negative); Color Urine Yellow; Epithelial Cell Urine Auto 0-2 /hpf (0-2); Glucose Urine UA Negative (Negative); Ketones Urine 1+ (Negative); Leukocyte Esterase Urine 1+ (Negative); Nitrite Urine Negative (Negative); Protein Urine Trace (Negative); RBC Urine Automated >20 /hpf (0-2); Specific Gravity Urine 1.014 (1.000-1.030); Urobilinogen Urine Negative (Negative); pH Urine 5.5 (4.5-7.5)
--- NOTE | 2023-12-27 22:58 | Communication Note ---
Date of Service: December 27, 2023 Patient with decreased responsiveness and episodic belly breathing. Patient denies chest pain, SOB, abdominal pain complaints. PPE Disoriented, ? Hard of hearing, no respiratory distress Chest x-ray as per my interpretation atelectasis EKG as per my interpretation : Rate 80, NSR, normal axis, nonspecific T wave abnormalities, PVCs pH 7.44 pCO2 35, pO2 80, Ammonia within normal limits UA cloudy, WBC esterase positive CT head No evidence of acute intracranial Pathology. AP Encephalopathy ? Complicated UTI Med/tele transfer for closer monitoring [Dr. Leon of (primary service) okay with transfer] Urine CS, Ceftriaxone
[2023-12-28] MEDS: cefTRIAXone SODIUM 2,000 MG/50 ML BAG IV SCH (02:25)
[2023-12-28] MEDS: ALBUMIN 25% 25 GM/100 ML VIAL IV ONE (02:55)
--- NOTE | 2023-12-28 02:59 | CT Scan Report ---
Exam(s): CT HEAD Without Contrast EXAM: CT Head Without Intravenous Contrast CLINICAL HISTORY: Reason for exam: ams. TECHNIQUE: Axial computed tomography images of the head/brain without intravenous contrast. CTDI is 35.65 mGy and DLP is 624.41 mGy-cm. Automated exposure control was utilized for the study. A dose lowering technique was utilized adhering to the principles of ALARA. COMPARISON: Comparison made to prior brain MRI from June 24, 2023. FINDINGS: Brain: Unremarkable. No hemorrhage. Mild nonspecific white matter changes. No edema. Ventricles: Mild ventriculomegaly. Bones/joints: Unremarkable. No acute fracture. Soft tissues: Unremarkable. Sinuses: Unremarkable as visualized. No acute sinusitis. Mastoid air cells: Unremarkable as visualized. No mastoid effusion. IMPRESSION: No evidence of acute intracranial Pathology. Electronically signed by: Josselin Hoffman MD 12/28/23 02:58 AM
[2023-12-28 07:13] LABS: Basophils # (auto) 0.03 K/uL (0.00-0.20); Basophils % (auto) 0.6 %; Eosinophils # (auto) 0.26 K/uL (0.00-0.50); Eosinophils % (auto) 5.5 %; Hematocrit (blood only) 26.8 % (37.0-47.0); Hemoglobin 8.2 g/dl (12.0-16.0); Immature Granulocytes # (auto) 0.01 K/uL (0.01-0.20); Immature Granulocytes % (auto) 0.2 %; Lymphocytes # (auto) 0.52 K/uL (1.20-3.40); Lymphocytes % (auto) 10.9 %; Mean Corpuscular Hemoglobin 26.4 pg (25.0-34.0); Mean Corpuscular Hgb Conc 30.6 g/dL (32.0-36.0); Mean Corpuscular Volume 86.2 fL (80.0-100.0); Mean Platelet Volume 9.5 fL (9.4-12.4); Monocytes # (auto) 0.55 K/uL (0.11-0.59); Monocytes % (auto) 11.6 %; Neutrophils # (auto) 3.39 K/uL (1.40-6.50); Neutrophils % (auto) 71.2 %; Platelet Count 244 K/uL (130-400); RDW Coefficient of Variation 17.2 % (11.5-14.5); RDW Standard Deviation 53.3 fL (36.4-46.3); Red Blood Count 3.11 M/uL (4.20-5.40); White Blood Count 4.76 K/ul (4.8-10.8)
[2023-12-28 07:58] LABS: BUN Creatinine Ratio 11.1 (10-20); Calcium 8.6 mg/dl (8.6-10.3); Creatinine Clr Calc Pharmacy 38.4 ml/min; Est GFR (Non-African American) 47.4 ml/min; Magnesium 1.8 mg/dl (1.7-2.4); Phosphorus 3.5 mg/dl (2.5-4.9); Potassium 3.9 mmol/L (3.5-5.1)
--- NOTE | 2023-12-28 08:41 | XRay Report ---
XR chest 1V portable HISTORY: belly breathing COMPARISON: Chest 12/26/2023. FINDINGS: No pneumothorax. Trace left pleural effusion and left basilar densities have improved. Mitr al anus calcifications again noted. The heart is top normal in size. The right lung is clear. No evid ence for pulmonary edema. Partially visualized abdominal aortic stent. IMPRESSION: Interval improvement in the trace left pleural effusion and left basilar densities. ACT 112: Negative or not required by law. Electronically signed by: Ty William M.D. 12/28/2023 8:40 AM
--- NOTE | 2023-12-28 10:52 | Surgery Progress Note ---
<Statement entered by Chay Sweet DO - 12/28/23 16:18> I have seen and examined this patient with the surgical PA, I agree with this plan. Patient looks great today. Her mental status seems recovered. She is sitting up in bed, answers questions appropriately is very alert and is tolerating her diet. Date of Service December 28, 2023 Assessment & Plan (1) H/O right hemicolectomy: Plan: POD#6 R hemicolectomy was transferred to [facility]tele overnight due to mental status. Head CT unremarkable. appears well this AM tolerating diet. pain controlled. + bowel functions incisions c/d/i medicine working up pt for possible sources of her change in mental status yesterday, UA + , culture pending. abx initiated Admission and Anticipated Discharge Date Admission Date: December 22, 2023 Subjective Pt feeling better. she is tolerating food, no nausea/vomiting. + BMs Physical Exam Physical Exam: awake, no distress Respiratory: normal respiratory effort Gastrointestinal (Abdomen): Inspection/Auscultation: + abdomen distended (mild lower abdominal bloat) and + abdominal surgical incision (c/d/i no signs of infection) Percussion/Palpation: abdomen soft; abdomen nontender Results & Data Vital Signs (Past 12 Hours) Vital Signs Temp Pulse Pulse Resp BP Pulse Ox O2 Del Method 12/28/23 09:44 83 92 Room Air 12/28/23 08:34 97 H 12/28/23 08:23 Room Air 12/28/23 07:42 98.2 F 97 H 16 179/92 H 98 Nasal Cannula 12/28/23 02:51 Nasal Cannula 12/28/23 01:47 89 12/28/23 01:34 97.6 F 92 H 20 144/72 H 96 Nasal Cannula O2 Flow Rate 12/28/23 09:44 12/28/23 08:34 12/28/23 08:23 12/28/23 07:42 1 12/28/23 02:51 1.5 12/28/23 01:47 12/28/23 01:34 1.5 PG Care Time/CCT Total # of Minutes Spent Total Time Spent with Patient: Total time spent is greater than 50% in coordination of care (as documented) at patient's floor/unit and/or counseling patient: Coding Level of Care Code 20876 SUB INP/OBS CARE 07/10MIN Diagnoses H/O right hemicolectomy Z90.49
--- NOTE | 2023-12-28 13:01 | Electrocardiogram Report ---
Test Reason : Blood Pressure : / mmHG Vent. Rate : 083 BPM Atrial Rate : 083 BPM P-R Int : 152 ms QRS Dur : 080 ms QT Int : 396 ms P-R-T Axes : 059 048 002 degrees QTc Int : 465 ms Sinus rhythm with occasional Premature ventricular complexes Nonspecific ST abnormality Abnormal ECG When compared with ECG of 24-DEC-2023 17:33, Premature ventricular complexes are now Present Confirmed by Connor Solares ([id number]) on 12/28/2023 1:00:54 PM Referred By: Pedro Peace Confirmed By:Connor Solares
--- NOTE | 2023-12-28 14:14 | Hospitalist Progress Note ---
Date of Service December 28, 2023 Assessment & Plan (1) Acute hyperactive delirium due to another medical condition: (2) Acute metabolic encephalopathy: (3) Adenocarcinoma of colon: (4) Status post right hemicolectomy: (5) COPD (chronic obstructive pulmonary disease): (6) Acute heart failure with preserved ejection fraction: (7) Acute respiratory failure with hypoxia and hypercapnia: (8) Suspected UTI: Plan Patient transferred to monitored unit last night due to decreased alertness. The night prior patient had been up all night and had been restless and agitated. Suspect patient was recovering from LOC of sleep the night before. Today patient is been pleasant and cooperative. Continue to monitor for delirium Discontinue Malave catheter Discontinue telemetry monitoring Empiric Rocephin for possible UTI, follow culture Continue therapies Anticipate will need placement. Admission and Anticipated Discharge Date Admission Date: December 22, 2023 Subjective Events of last evening noted. Today patient awake and pleasant and interactive Physical Exam Physical Exam: Constitutional: Alert HEENT: Mucous membranes moist. Lungs: Clear to auscultation, decreased, no wheezes rales or rhonchi CV: S1-S2, regular Abdomen: Soft, nontender, nondistended Extremities: No significant edema Neuro: No focal deficits generalized weakness, oriented to person, year, month, president. Disoriented to building Psych: Cooperative, normal mood Results & Data Results & Data Vital Signs (Past 12 Hours) Vital Signs Temp Pulse Pulse Resp BP Pulse Ox O2 Del Method 12/28/23 13:45 87 12/28/23 11:58 36.8 C 86 16 163/84 H 93 Room Air 12/28/23 09:44 83 92 Room Air 12/28/23 08:34 97 H 12/28/23 08:23 Room Air 12/28/23 07:42 36.8 C 97 H 16 179/92 H 98 Nasal Cannula 12/28/23 02:51 Nasal Cannula O2 Flow Rate 12/28/23 13:45 12/28/23 11:58 12/28/23 09:44 12/28/23 08:34 12/28/23 08:23 12/28/23 07:42 1 12/28/23 02:51 1.5 Diagnostic Findings Reviewed imaging, laboratory and diagnostic studies. Pertinent findings as below. Urine culture growing gram-positive cocci
--- NOTE | 2023-12-29 07:09 | Surgery Progress Note ---
Date of Service December 29, 2023 Assessment & Plan (1) Respiratory failure: (2) Adenocarcinoma of colon: (3) Status post right hemicolectomy: Plan pod 7. S/p laparoscopic extended right hemicolectomy for colon cancer significant improvement this morning advance to regular Replete electrolytes as necessary Continue monitoring hemoglobin and hematocrit possible discharge to home today if okay with PT/OT would be going home to stay with son Admission and Anticipated Discharge Date Admission Date: December 22, 2023 Subjective Doing well. Alert and oriented this morning. Minimal pain. Having multiple bowel movements. Off oxygen. Physical Exam Physical Exam: NAD, A&O x 3 No acute distress Abdomen: Soft, nondistended Incisions healing well without erythema or discharge Results & Data Vital Signs (Past 12 Hours) Vital Signs Temp Pulse Pulse Pulse Resp BP Pulse Ox 12/29/23 02:55 37.2 C 75 17 161/76 H 95 12/29/23 00:49 94 12/29/23 00:49 89 L 12/28/23 23:27 37.3 C 94 H 16 148/70 H 90 12/28/23 21:59 98 H 12/28/23 20:00 12/28/23 19:59 37 C 89 18 157/76 H 91 O2 Del Method O2 Flow Rate 12/29/23 02:55 Nasal Cannula 2 12/29/23 00:49 Nasal Cannula 1.5 12/29/23 00:49 Nasal Cannula 0 12/28/23 23:27 Room Air 12/28/23 21:59 12/28/23 20:00 Room Air 12/28/23 19:59 Room Air
[2023-12-29 07:32] LABS: BUN Creatinine Ratio 12.6 (10-20); Creatinine Clr Calc Pharmacy 37.3 ml/min; Est GFR (African American) 53.2 ml/min; Est GFR (Non-African American) 45.9 ml/min; Magnesium 1.5 mg/dl (1.7-2.4); Phosphorus 2.7 mg/dl (2.5-4.9); Potassium 3.8 mmol/L (3.5-5.1)
[2023-12-29 08:40] LABS: Basophils # (auto) 0.04 K/uL (0.00-0.20); Basophils % (auto) 0.7 %; Eosinophils # (auto) 0.28 K/uL (0.00-0.50); Eosinophils % (auto) 5.1 %; Hemoglobin 8.3 g/dl (12.0-16.0); Immature Granulocytes # (auto) 0.04 K/uL (0.01-0.20); Immature Granulocytes % (auto) 0.7 %; Lymphocytes # (auto) 0.58 K/uL (1.20-3.40); Lymphocytes % (auto) 10.6 %; Mean Corpuscular Hemoglobin 26.4 pg (25.0-34.0); Mean Corpuscular Hgb Conc 30.7 g/dL (32.0-36.0); Mean Platelet Volume 9.7 fL (9.4-12.4); Monocytes # (auto) 0.66 K/uL (0.11-0.59); Monocytes % (auto) 12.1 %; Neutrophils # (auto) 3.87 K/uL (1.40-6.50); Neutrophils % (auto) 70.8 %; Platelet Count 254 K/uL (130-400); RDW Coefficient of Variation 17.2 % (11.5-14.5); RDW Standard Deviation 53.3 fL (36.4-46.3); Red Blood Count 3.14 M/uL (4.20-5.40); White Blood Count 5.47 K/ul (4.8-10.8)
--- NOTE | 2023-12-29 11:15 | Discharge Summary ---
Discharge Summary Date of Service December 29, 2023 Principal Dx & Hospital Course #1 = Principal Diagnosis (1) Acute hyperactive delirium due to another medical condition: (2) Acute metabolic encephalopathy: (3) Adenocarcinoma of colon: (4) Status post right hemicolectomy: (5) COPD (chronic obstructive pulmonary disease): (6) Acute heart failure with preserved ejection fraction: (7) Acute respiratory failure with hypoxia and hypercapnia: (8) Suspected UTI: Plan Patient presented to the hospital with known colon cancer for planned hemicolectomy. Patient underwent uncomplicated operative course. However, postoperatively the patient is experienced some significant postoperative delirium. This initially managed with some benzodiazepines and antipsychotics. Subsequently she had his beer hypercarbic respiratory failure. Patient does have a history of hypoxic and hypercarbic respiratory failure in the setting of COPD. She was transferred to the ICU. She was intubated for approximately 24 hours. She was subsequently extubated and transition to eventually room air. However her delirium persisted. An additional history from the family it was discovered that the patient had some severe delirium after previous surgery several years ago. She was able to be transferred out of the ICU. Decision was made to avoid all benzodiazepines, avoid all antipsychotics and really just continue to redirect the patient and use nonmedicine means to manage her delirium. Over the course of the next several days her delirium slowly cleared. She was able to resume feeding quite easily after surgery she had no issues wit h ileus or nausea. Her activity was increased. On the day of discharge her vital signs are stable. Her mentation was significantly improved she remembered she had bills to pay if she remembered his postoperative outpatient appointments that had been arranged her need to follow-up with surgery and with oncology. She was ambulating without difficulty. Tolerating her diet without difficulty. Surgical incisions were healing well. And she can be discharged home with plans for her family to assist her in that transition. She will follow-up with her outpatient providers as scheduled. Phone call to patient's son. Aware of plan for discharge today Notes For Next Care Provider Medication Changes From Visit Preoperative antibiotics discontinued. Admission HPI Per Admitting Provider I refer you to the H&P Admission Exam Per Admitting Provider I refer you to the H&P Discharge Exam Constitutional: Alert HEENT: Mucous membranes moist. Lungs: Clear to auscultation, decreased, no wheezes rales or rhonchi CV: S1-S2, regular Abdomen: Soft, nontender, nondistended, surgical incisions clean dry and healing well Extremities: No significant edema Neuro: No focal deficits, oriented Psych: Cooperative, normal mood Updated Medication List Medication Instructions Recorded Confirmed Type acetaminophen 325 mg tablet 650 mg PO Q6H PRN Pain 06/06/22 12/22/23 History (Tylenol) albuterol sulfate 90 mcg/actuation 2 puff inhalation Q4 PRN Shortness 06/06/22 12/22/23 History aerosol inhaler (Ventolin HFA) Of Breath Or Wheezing clopidogrel 75 mg tablet 75 mg PO QAM 06/06/22 12/22/23 History docusate sodium 100 mg capsule 100 mg PO HS 06/06/22 12/22/23 History enalapril maleate 10 mg tablet 10 mg PO QAM 06/06/22 12/22/23 History ezetimibe 10 mg tablet 10 mg PO QAM 06/06/22 12/22/23 History wvujntvnpfmn-bqlkcmlc-gzhgfe tablet 1 tab PO DAILY 06/06/22 12/22/23 History nitroglycerin 0.4 mg sublingual 0.4 mg sublingual DIRECTED PRN 06/06/22 12/22/23 History tablet (Nitrostat) Chest Pain pantoprazole 20 mg tablet,delayed 20 mg PO QAM 06/06/22 12/22/23 History release polyethylene glycol 3350 17 gram 17 g PO DAILY PRN Constipation 06/06/22 12/22/23 History oral powder packet (Miralax) rosuvastatin 20 mg tablet 20 mg PO QPM 06/06/22 12/22/23 History isosorbide mononitrate 30 mg 30 mg PO QAM 06/24/23 12/22/23 History tablet,extended release 24 hr duloxetine 60 mg capsule,delayed 60 mg PO QAM 12/12/23 12/22/23 History release sprinkle iron,carbonyl 65 mg-vitamin C 125 1 tab PO Q2D 12/12/23 12/22/23 History mg tablet,delayed release (Vitron-C) metoprolol tartrate 25 mg tablet 25 mg PO QAM 12/12/23 12/22/23 History metronidazole 500 mg tablet 500 mg PO BID 12/12/23 12/22/23 History neomycin 500 mg tablet 500 mg PO UD 12/12/23 12/22/23 History ondansetron 8 mg disintegrating 8 mg PO UD 12/12/23 12/22/23 History tablet Hospital Stay Data Consultations 12/22/23 12:12 Consult Hospitalist Routine 12/24/23 17:57 Consult Steam Blocker Stat Procedures Performed Operation Date: 12/22/23 07:15 Actual Procedures p Laparoscopic Extended Right Hemicolectomy(Right) - Pedro Peace MD Diagnostic Imagining Performed 12/27/23 23:02 CT head/brain wo con Stat Reviewed imaging, laboratory and diagnostic studies. Pertinent findings as below. WBCs 5.4 Hemoglobin 8.3 Electrolytes all within normal range Creatinine 1.1 Glucose 97 Pathology pending Pending Results Patient Have Any Pending Studies at Discharge: No Discharge Instructions Given to Patient (Per Discharging Provider) Post-Surgical ~Discharge Instructions Activity Recommendations: - lifting limitation: (10 pounds for 4-6 weeks), - exercise/sex/sports limit: (nonstrenuous for 4-6 weeks), - driving or machine use limit: (none for 1 week or until pain free and no longer taking pain medication), - Shower/bathe limit: (may shower , no submerging incisions underwater for 1 week) Diet: - Resume previous diet SPECIAL CARE INSTRUCTIONS: - May shower. Let water run over area and pat dry. - Surgical glue will fall off on its own. Do not pick at it. - Call the surgeon's office with any questions or concerns - - (ex. temperature higher than 101 degrees F, excessive bleeding or pain). MEDICATIONS: - Resume previous medications unless instructed otherwise by your surgeon. - Ibuprofen 600 mg every 6 hours with food - Percocet 1 every 4 hours, as needed for pain FOLLOW UP VISIT: - If not already scheduled, please call the office to schedule a one week follow-up appointment. Office number Total Time Total Time Spent Total Time Spent (In Minutes): 39
== END 2023-12-29 18:09 | disposition home or self-care (01) | DRG 329 ==
LOC: ASU 05:41 → 3W 10:04 → SUATTDRO 10:04 → 1E 12-24 17:58 → 3W 12-26 20:05 → 2N 12-28 01:31

== ENCOUNTER 2024-01-16 14:48 | Inpatient (IN) ==
--- NOTE | 2024-01-16 15:34 | Emergency Department Note ---
History of Present Illness General Chief complaint: Referred by Doctor Stated complaint: DOCTOR REFERRED Time Seen by Provider: 01/16/24 15:16 Source: patient, RN notes reviewed and old records reviewed Mode of arrival: ambulatory Limitations: no limitations History of Present Illness This patient is a 83-year-old female who is currently receiving chemo for colon cancer comes in after having chest pain shortness of breath last evening she follow-up with her oncology group today and she told them that so they sent her to the ER. She is asymptomatic at present. She denies any fever or cough she had some nausea. She is on Plavix. No history of DVT she has not had a history of cardiac disease with stents in the past. No fall or trauma. Home Medications Medication Instructions Recorded Confirmed Type acetaminophen 325 mg tablet 650 mg PO Q6H PRN Pain 06/06/22 01/16/24 History (Tylenol) albuterol sulfate 90 mcg/actuation 2 puff inhalation Q4 PRN Shortness 06/06/22 01/16/24 History aerosol inhaler (Ventolin HFA) Of Breath Or Wheezing clopidogrel 75 mg tablet 75 mg PO QAM 06/06/22 01/16/24 History docusate sodium 100 mg capsule 100 mg PO HS 06/06/22 01/16/24 History enalapril maleate 10 mg tablet 20 mg PO QAM 06/06/22 01/16/24 History ezetimibe 10 mg tablet 10 mg PO QAM 06/06/22 01/16/24 History zhrgycltheha-tnmllrzj-tncddd tablet 1 tab PO QAM 06/06/22 01/16/24 History nitroglycerin 0.4 mg sublingual 0.4 mg sublingual DIRECTED PRN 06/06/22 01/16/24 History tablet (Nitrostat) Chest Pain pantoprazole 20 mg tablet,delayed 20 mg PO DAILYBB 06/06/22 01/16/24 History release polyethylene glycol 3350 17 gram 17 g PO DAILY PRN Constipation 06/06/22 01/16/24 History oral powder packet (Miralax) rosuvastatin 20 mg tablet 20 mg PO QPM 06/06/22 01/16/24 History isosorbide mononitrate 30 mg 30 mg PO QAM 06/24/23 01/16/24 History tablet,extended release 24 hr duloxetine 60 mg capsule,delayed 60 mg PO QAM 12/12/23 01/16/24 History release sprinkle iron,carbonyl 65 mg-vitamin C 125 1 tab PO DAILY 12/12/23 01/16/24 History mg tablet,delayed release (Vitron-C) metoprolol tartrate 25 mg tablet 25 mg PO BID 12/12/23 01/16/24 History aspirin 81 mg tablet,delayed 81 mg PO DAILY 01/16/24 01/16/24 History release lidocaine-prilocaine 2.5 %-2.5 % 1 applic topical DIRECTED PRN 01/16/24 01/16/24 History topical cream ACCESSING PORT ondansetron HCl 8 mg tablet 8 mg PO Q8H PRN NAUSEA/VOMITING 01/16/24 01/16/24 History phenylephrine 0.25 %-cocoa butter 1 supp NE DIRECTED PRN 01/16/24 01/16/24 History 88.44 % rectal suppository Hemorrhoids prochlorperazine maleate 10 mg 10 mg PO Q6H PRN NAUSEA/VOMITING 01/16/24 01/16/24 History tablet Allergies Allergy/AdvReac Type Severity Reaction Status Date / Time adhesive tape Allergy Intermediate rash/itchy Verified 01/16/24 17:41 latex Allergy Intermediate rash/itchy Verified 01/16/24 17:41 Past Med/Surg History Problem List Elevated troponin (Acute) Chest pain (Acute) Acute ST elevation myocardial infarction (STEMI) (Acute) Suspected UTI H/O right hemicolectomy Required emergent intubation Respiratory failure Acute heart failure with preserved ejection fraction Acute metabolic encephalopathy Acute hyperactive delirium due to another medical condition Hypokalemia Acute on chronic anemia Adenocarcinoma of colon (Acute) Status post right hemicolectomy Encounter for pre-operative examination Labyrinthine vestibulitis 06/26/23 Vertigo 06/25/23 Dizziness (Acute) 06/24/23 HTN (hypertension) (Acute) Lightheadedness 06/06/22 Contusion of eyeball and orbital tissues, right eye, initial encounter (Acute) 06/06/22 Acute dehydration (Acute) 06/06/22 Fall (Acute) 06/06/22 Abnormal EKG 10/31/20 Hydronephrosis 08/19/19 Prediabetes Depression CKD (chronic kidney disease) stage 3, GFR 30-59 ml/min COPD (chronic obstructive pulmonary disease) CAD (coronary artery disease) HLD (hyperlipidemia) Medical History Mitral valve annular calcification per 12/25/23 ECHO: Heavy focal calcification of posterior mitral valve annulus with mild restriction and posterior mitral valve leaflet mobility. No MS. Anemia chronic iron defic anemia (has received iron transfusions previously); pt also had acute blood loss anemia following R hemicolectomy 12/22/23 and was transfused 1 unit PRBCs 12/24/23 Hospitalization or health care facility admission within last 6 months [facility], [place] 12/22/23-12/29/23: delirium, metabolic encephalopathy, acute resp failure requring intubation, s/p R hemicolectomy; pt with significant delirium postoperatively initially managed with benzo and antipsychotics, subsequent resp failure, tx to ICU where she was intubated for 24hours; delirium persisted after extubation and transition to RA (*pt's family noted hx of delirium after anesthesia previously) Colon cancer dx 10/2023, recent hemicolectomy with lymph node excision (pt to start chemotherapy in near future due to x2 lymph nodes coming back positive) Hx of myocardial infarction (05/31/02) History of postoperative delirium significant post op delirium following R hemicolectomy [facility], [place] 12/22/23; pt tx to ICU and reintubated for 24 hours. patient was inpatient for 1 week after the surgery. pt doing well currently, but does state she is afraid to go back to sleep and has been staying with her son (significant delirium s/p R hemicolectomy under [place] 12/22/23 (pt's family also notes hx of delirium s/p anesthesia events in the past) PVD (peripheral vascular disease) History of PVD with 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 [facility] CAD (coronary artery disease) stent in LAD in 2001 and RCA in 2002, follows with [facility] cardiology Tobacco abuse hx Surgical History H/O right hemicolectomy 12/22/23: [place]: MAC#3, ETT#7.5, Gr View 2 Hx of left mastectomy with lymph node excision History of esophagogastroduodenoscopy (EGD) Hx of colonoscopy Hx of local excision of skin lesion skin cancer Hx of cardiac cath 06/02/02, [place], [facility] in [place], x1 stent 12/2002, "routine procedure that they knew would need to be done," [facility] in [place], x1 stent; f/u dr. [facility] 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 stent graft 07/05/19, [facility], [place], "thinks it had actually ruptured right when she got to the hospital"; excluder clips placed x6; has been monitored by dr. pope since this occurred. History of cataract removal with insertion of prosthetic lens right/left History of hysterectomy 1983 H/O heart artery stent 06/02/02, [place], [facility] in [place], x1 stent (Cordis) 01/03/03, "routine procedure that they knew would need to be done," [facility] in [place], x1 stent (Cordis); f/u 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 Beliefs That Will Affect Care: None marital status: / Current Living Situation: Alone current occupational status: retired Feels Safe at Home: Yes Assistive Devices: Cane, Denture - Upper and Denture - Lower Review of Systems A total of 10 systems reviewed and were otherwise negative Physical Exam Vital Signs Vital Signs - 24 hr 01/16/24 14:52 01/16/24 15:35 01/16/24 15:50 Temperature 36.2 C L Temperature Source Temporal Artery Scan Pulse Rate 78 74 Pulse Rate [Left Apical] 73 Pulse Rate from SpO2 Sensor Respiratory Rate 16 24 Respiratory Effort / Characteristics Non-Labored Spontaneous Non-Labored Spontaneous Respiratory Depth Normal Normal Respiratory Pattern Regular Regular Blood Pressure 94/56 L Blood Pressure [Right Arm] 122/73 Blood Pressure Mean 68 Blood Pressure Mean [Right Arm] 89 Pulse Oximetry 96 94 Oxygen Delivery Method Room Air Room Air Sepsis Recent Fever Within 48 Hours No Sepsis New/Unexplained Change in Mental Status N/A Sepsis Action Taken by Nursing No Action Required 01/16/24 16:00 01/16/24 16:12 01/16/24 16:21 Temperature Temperature Source Pulse Rate 73 74 77 Pulse Rate [Left Apical] Pulse Rate from SpO2 Sensor Respiratory Rate 19 25 H 18 Respiratory Effort / Characteristics Respiratory Depth Respiratory Pattern Blood Pressure 126/76 Blood Pressure [Right Arm] Blood Pressure Mean 92 Blood Pressure Mean [Right Arm] Pulse Oximetry 94 93 95 Oxygen Delivery Method Room Air Room Air Room Air Sepsis Recent Fever Within 48 Hours Sepsis New/Unexplained Change in Mental Status Sepsis Action Taken by Nursing 01/16/24 16:30 01/16/24 16:33 01/16/24 17:06 Temperature Temperature Source Pulse Rate 72 74 Pulse Rate [Left Apical] Pulse Rate from SpO2 Sensor Respiratory Rate 19 20 Respiratory Effort / Characteristics Respiratory Depth Respiratory Pattern Blood Pressure 130/79 Blood Pressure [Right Arm] Blood Pressure Mean 95 Blood Pressure Mean [Right Arm] Pulse Oximetry 94 96 Oxygen Delivery Method Room Air Room Air Sepsis Recent Fever Within 48 Hours Sepsis New/Unexplained Change in Mental Status Sepsis Action Taken by Nursing 01/16/24 17:12 01/16/24 17:21 01/16/24 17:24 Temperature Temperature Source Pulse Rate 76 77 76 Pulse Rate [Left Apical] Pulse Rate from SpO2 Sensor Respiratory Rate 20 21 21 Respiratory Effort / Characteristics Respiratory Depth Respiratory Pattern Blood Pressure Blood Pressure [Right Arm] Blood Pressure Mean Blood Pressure Mean [Right Arm] Pulse Oximetry 95 96 95 Oxygen Delivery Method Room Air Room Air Room Air Sepsis Recent Fever Within 48 Hours Sepsis New/Unexplained Change in Mental Status Sepsis Action Taken by Nursing 01/16/24 17:42 01/16/24 18:00 01/16/24 18:09 Temperature Temperature Source Pulse Rate 78 Pulse Rate [Left Apical] Pulse Rate from SpO2 Sensor 78 Respiratory Rate 20 Respiratory Effort / Characteristics Respiratory Depth Respiratory Pattern Blood Pressure 126/82 125/89 Blood Pressure [Right Arm] Blood Pressure Mean 103 114 Blood Pressure Mean [Right Arm] Pulse Oximetry 96 Oxygen Delivery Method Sepsis Recent Fever Within 48 Hours Sepsis New/Unexplained Change in Mental Status Sepsis Action Taken by Nursing 01/16/24 18:15 01/16/24 18:21 01/16/24 18:24 Temperature Temperature Source Pulse Rate 78 81 Pulse Rate [Left Apical] Pulse Rate from SpO2 Sensor 79 82 Respiratory Rate 21 22 Respiratory Effort / Characteristics Respiratory Depth Respiratory Pattern Blood Pressure 138/88 138/88 Blood Pressure [Right Arm] Blood Pressure Mean 104 107 Blood Pressure Mean [Right Arm] Pulse Oximetry 96 97 Oxygen Delivery Method Sepsis Recent Fever Within 48 Hours Sepsis New/Unexplained Change in Mental Status Sepsis Action Taken by Nursing 01/16/24 18:30 01/16/24 18:33 01/16/24 18:45 Temperature Temperature Source Pulse Rate 83 83 Pulse Rate [Left Apical] Pulse Rate from SpO2 Sensor Respiratory Rate 23 20 Respiratory Effort / Characteristics Respiratory Depth Respiratory Pattern Blood Pressure 124/89 Blood Pressure [Right Arm] Blood Pressure Mean 91 Blood Pressure Mean [Right Arm] Pulse Oximetry 92 96 Oxygen Delivery Method Room Air Room Air Sepsis Recent Fever Within 48 Hours Sepsis New/Unexplained Change in Mental Status Sepsis Action Taken by Nursing General: Well developed well nourished older female who appears in no acute distress, breathing comfortably on room air. Normal speech HEENT: Normal cephalic atraumatic. Pupils are equal round and reactive to light. Extraocular movements are intact. Oropharynx is pink with moist mucous membranes. No swelling of the mouth lips or tongue. Neck: Supple with a midline trachea. No meningeal signs or stiffness, no JVD or bruits. No Stridor. Chest: Clear to auscultation bilaterally. No wheezes or rhonchi. No increased work of breathing. Port in left chest. Heart: Regular rate and rhythm without murmurs or gallops. Abdomen: Soft nontender, nondistended without rebound guarding or rigidity. Extremities: No cyanosis clubbing or edema. No calf tenderness or assymetry. There is a IV in the right antecubital fossa Spine/Back. Non tender to palpation. No CVA tenderness Skin: Good turgor without rashes. Neurologic exam: Cranial nerves two through 12 are intact. Motor and sensation are intact and symmetrical throughout. Course Administered Medications Discontinued Medications Aspirin (Aspirin 81 Mg Chew) 324 mg PO NOW STA Stop: 01/16/24 18:17 Last Admin: 01/16/24 18:25 Dose: Not Given Documented By: WILLIAM Aspirin (Aspirin Chew 324 Mg) Confirm Administered Dose 324 mg .ROUTE .STK-MED ONE Stop: 01/16/24 18:22 Last Admin: 01/16/24 18:23 Dose: 324 mg Documented By: WILLIAM Heparin Sodium (Porcine) (Heparin (Porcine) 1000 Unit/Ml 10 Ml (Medical Transcription Editor Use Only)) Confirm Administered Dose 10,000 units .ROUTE .STK-MED ONE Stop: 01/16/24 18:43 Last Admin: 01/16/24 18:44 Dose: 5,000 units Documented By: KERON Heparin Sodium/Sodium Chloride (Heparin In Nss Infusion 1000 Unit/500 Ml (2 U/Ml) Bag) Confirm Administered Dose 3,000 units IV .STK-MED ONE Stop: 01/16/24 18:44 Last Admin: 01/16/24 19:06 Dose: 3,000 units Documented By: COLE Sodium Chloride (Nss) 500 mls @ 999 mls/hr IV .Q31M ONE Stop: 01/16/24 17:39 Last Admin: 01/16/24 17:27 Dose: 999 mls/hr Documented By: STEVE Ioversol (Optiray 320 125ml) 118 ml IV ONCE ONE Stop: 01/16/24 17:40 Last Admin: 01/16/24 17:39 Dose: 118 ml Documented By: JOURDAN Nicardipine HCl (Nicardipine Hcl Inj 2.5 Mg/Ml 10 Ml Amp) Confirm Administered Dose 25 mg .ROUTE .STK-MED ONE Stop: 01/16/24 18:44 Last Admin: 01/16/24 19:07 Dose: 25 mg Documented By: COLE Nitroglycerin (Nitroglycerin Sl 0.4 Mg/Tab Tab) Confirm Administered Dose 1.2 mg .ROUTE .STK-MED ONE Stop: 08/02/24 18:22 Last Admin: 01/16/24 18:25 Dose: 0.4 mg Documented By: WILLIAM Nitroglycerin (Nitroglycerin Sl 0.4 Mg/Tab Tab) 0.4 mg SL NOW STA Stop: 01/16/24 18:35 Last Admin: 01/16/24 18:35 Dose: Not Given Documented By: STEVE Nitroglycerin/Dextrose (Nitroglycerin/D5w 100mcg/Ml 20ml Syr) Confirm Administered Dose 2,000 mcg .ROUTE .STK-MED ONE Stop: 01/16/24 18:44 Last Admin: 01/16/24 19:07 Dose: 2,000 mcg Documented By: COLE Critical Care Time Critical Care Time: Yes Total Critical Care Time: 35 Due to concern for acute coronary syndrome, need to talk to multiple consultants, frequent reassessment and labs and ultimately the patient status changing and having new EKGs in the ER consistent with STEMI, I have personally spent greater than 35 minutes of critical care time in the direct management of this patient. This includes bedside care, interpretation of diagnostic studies, and testing, discussion with consultants, patient, and family members, and other required patient management activities. This 35 minutes is in excess of all separately billable procedures. Medical Decision Making Differential Diagnosis Acute coronary syndrome, arrhythmia, PE, electrolyte or metabolic abnormality, infection Medical Records Attestation: I reviewed the patient's medical records. Home Medications Current Medication List: was personally reviewed by me Laboratory Data Attestation: I reviewed the patient's lab results. 01/16/24 15:11 01/16/24 15:11 Lab Results 01/16/24 01/16/24 Range/Units 15:11 17:58 WBC 2.13 L (4.8-10.8) K/ul RBC 3.66 L (4.20-5.40) M/uL Hgb 9.7 L (12.0-16.0) g/dl Hct 31.2 L (37.0-47.0) % MCV 85.2 (80.0-100.0) fL MCH 26.5 (25.0-34.0) pg MCHC 31.1 L (32.0-36.0) g/dL RDW Std Deviation 57.1 H (36.4-46.3) fL RDW Coeff of Adalid 18.3 H (11.5-14.5) % Plt Count 217 (130-400) K/uL MPV 10.2 (9.4-12.4) fL Immature Gran % (Auto) 0.0 % Neut % (Auto) 60.5 % Lymph % (Auto) 32.9 % [place] % (Auto) 3.8 % Eos % (Auto) 0.9 % Baso % (Auto) 1.9 % Neut # (Auto) 1.29 L (1.40-6.50) K/uL Lymph # (Auto) 0.70 L (1.20-3.40) K/uL [place] # (Auto) 0.08 L (0.11-0.59) K/uL Eos # (Auto) 0.02 (0.00-0.50) K/uL Baso # (Auto) 0.04 (0.00-0.20) K/uL Immature Gran # (Auto) 0.00 L (0.01-0.20) K/uL PT 11.0 (9.0-12.0) Seconds INR 1.0 (0.9-1.1) APTT 24 (21-31) Seconds PTT Ratio 0.9 D-Dimer 2720 H* (0-500) ug/L FEU Sodium 141 (136-145) mmol/L Potassium 4.1 (3.5-5.1) mmol/L Chloride 108 H (98-107) mmol/L Carbon Dioxide 24 (21-32) mmol/L Anion Gap 9 (3-11) BUN 25 H (6-23) mg/dl Creatinine 1.35 H (0.6-1.2) mg/dl Est Cr Clr Drug Dosing 30.7 ml/min Est GFR ( Amer) 42.0 ml/min Est GFR (Non-Af Amer) 36.2 ml/min BUN/Creatinine Ratio 18.5 (10-20) Glucose 118 H (70-99(Fasting)) mg/dl Calcium 9.5 (8.6-10.3) mg/dl Total Bilirubin 0.2 (0.2-1.0) mg/dl AST 31 (13-39) U/L ALT 11 (7-52) U/L Alkaline Phosphatase 65 (34-104) U/L Troponin I High Sens 3004.8 H* 4291.4 H* D (0-14) pg/ml Total Protein 6.4 (6.0-8.3) gm/dl Albumin 4.0 (3.4-5.0) gm/dl Globulin 2.4 L (2.5-4.0) gm/dl Albumin/Globulin Ratio 1.7 (0.9-2) Imaging Data Attestation: I personally reviewed and interpreted this imaging study as follows: My Impression: Chest x-rayno acute infiltrate, failure, pneumothorax seen Radiologist's Impression: Chest X-Ray 01/16/24 15:17 XR chest 1V portable HISTORY: 83 years-old Female Chest pain, nonspecific COMPARISON: 01/08/2024 TECHNIQUE: AP view of the chest FINDINGS: Hiatal hernia. Cardiomegaly. Unchanged right subclavian catheter. No pneumothorax. Small left pleural effusion with mild bibasilar consolidation. Abdominal aortic stent. Bones appear grossly intact. IMPRESSION: 1. Cardiomegaly without acute process. 2. Small left pleural effusion with mild bibasilar consolidation. 3. Hiatal hernia. ACT 112: Negative or not required by law. The above report was generated using voice recognition software. It may contain grammatical, syntax or spelling errors. Electronically signed by: Raúl Mcconnell M.D. 01/16/2024 3:55 PM Chest CTA 01/16/24 17:09 CHEST CTA for PULMONARY ARTERIES CT DOSE: 430.9 mGy.cm HISTORY: Shortness of breath. TECHNIQUE: Multiaxial CT images of the chest were performed following the intravenous administration of contrast to evaluate the pulmonary arteries. 3D/Maximal intensity projection images were also obtained. Sagittal and coronal reformations were also reviewed. A dose lowering technique was utilized adhering to the principles of ALARA. COMPARISON STUDY: Chest CT 06/01/2022. FINDINGS: Normal caliber thoracic aorta with no evidence for dissection. There is mild calcified plaque within the thoracic aorta. The heart is mildly enlarged. No pericardial effusion. Trace bilateral pleural effusions. Severe coronary artery calcifications and mitral annulus calcifications are noted. No filling defects within the pulmonary arteries to suggest a pulmonary embolus. Normal thyroid gland. Prior left mastectomy. Limited views the upper abdomen demonstrate a normal liver, spleen, and adrenal glands. There is a partially visualized abdominal aortic stent. There is a large hiatus hernia containing the proximal stomach. This remains unchanged. No mediastinal or hilar lymphadenopathy. No suspicious lytic or blastic osseous lesions. A right subclavian Port-A-Cath terminates in the SVC. No pneumothorax. The central airways are patent. Mild emphysema. Mild biapical pleural-parenchymal scarring. Patchy groundglass densities within the lower lobes posteriorly favor mild dependent changes. A low-grade pneumonitis would be difficult to exclude by imaging. There is a 7 mm subpleural nodule within the right upper lobe on image 188. There is a 3 mm groundglass nodule within the right upper lobe on image 149. IMPRESSION: 1. No evidence for a pulmonary embolus. 2. Trace bilateral pleural effusions. 3. Patchy groundglass densities within the lower lobes posteriorly. These are nonspecific but favor dependent change/atelectasis. A low-grade pneumonitis would be difficult to exclude by imaging. 4. Large hiatus hernia, unchanged. 5. Mild cardiomegaly. 6. Mild emphysema. 7. A 7 mm indeterminate pulmonary nodule within the right upper lobe. Please refer to below summary of Fleischner criteria recommendations for follow- up of incidental CT nodules (Tyra Rios, Guidelines for management of small pulmonary nodules detected on CT scans: A statement from the Fleischner Society, Radiology 237: [phone].) SOLID NODULES Solitary nodule size: <6 mm * Low risk patients: no follow-up needed * high risk patients: optional CT at 12 months Solitary nodule size: 6-8 mm * Low risk patients: follow-up at 6-12 months, then consider further follow-up at 18-24 months * high risk patients: initial follow-up CT at 6-12 months and then at 18-24 months if no change Solitary nodule size: >8 mm * either low or high risk patients - consider follow-up CT at 3 months, and/or CT-PET, and/or biopsy Multiple nodules size: <6 mm * Low risk patients: no routine follow-up * high risk patients: optional CT at 12 months Multiple nodules size: 6-8 mm * Low risk patients: follow-up at 3-6 months, then consider further follow-up at 18-24 months * high risk patients: follow-up at 3-6 months, then at 18-24 months if no change Multiple nodules size: >8 mm * Low risk patients: follow-up at 3-6 months, then consider further follow-up at 18-24 months * high risk patients: follow-up at 3-6 months, then at 18-24 months if no change Note: newly detected indeterminate nodule in persons 35 years of age or older. * Low risk patients: minimal or absent history of smoking and/or other known risk factors * high risk patients: history of smoking or of other known risk factors (e.g. first degree relative with lung cancer, or exposure to asbestos, radon, uranium) * if a nodule up to 8 mm is partly solid or is ground glass further follow-up is required after 24 months to exclude possible slow growing adenocarcinoma ([place]) SUBSOLID NODULES Solitary pure ground-glass nodule * nodule size <6 mm - no CT follow-up required * nodule size >=6 mm - follow-up CT at 6-12 months, then every 2 years until 5 years Solitary part-solid nodule * nodule size <6 mm - no CT follow-up required * nodule size >=6 mm - follow-up CT at 3-6 months. If unchanged, and solid component remains <6 mm, then annual follow-up for 5 years Multiple subsolid nodules * nodule size <6 mm - follow-up CT at 3-6 months, consider further follow-up at 2 and 4 years if stable * nodule size >=6 mm - follow-up CT at 3-6 months, subsequent management based on the most suspicious nodule(s) ACT 112: Positive. There are findings on this exam that require communication between the performing entity and the patient following Patient Test Result Information Act ([place] Act 112) guidelines. Electronically signed by: Ty William M.D. 01/16/2024 6:02 PM ECG Data Attestation: I personally reviewed and interpreted this ECG as follows: Indication: + chest pain Rate (beats per minute): 74 Rhythm: + normal sinus ECG Intervals/blocks: + Normal QRS, + Normal QT and + Normal NE ECG [place]: + Normal ECG ST segments: + Normal ST segments and + T-wave inversions (Diffuse T wave inversions) ECG Findings: no PACs or no PVCs Comparison ECG Date: from (12/27/2023) Change: the following changes noted (T wave inversions are now present) Additional Comments: EKG #2: Normal sinus rhythm rate [address] segment elevations consistent with a lateral STEMI compared EKG #1 MDM Narrative This patient comes in as described above. He is presently asymptomatic. She comes in after having chest pain. She is on chemo. She feels fine at present she has no shortness of breath at present either. The nurse came and handed me her EKG it is abnormal she has T wave inversions laterally but also diffusely. She is certainly at risk for PE she also has a history of cardiac disease. Extensive workup was obtained chest x-ray shows no acute infiltrate, failure, pneumothorax. Her troponin came back significant elevated at 3000. Her dimer was also elevated. She is noticing of electrolyte or metabolic abnormalities. She is neutropenic but her platelets are in the 200,000 range. She has baseline anemia with a hemoglobin in the [address] angiography showed no evidence of PE. I did call and talk to the admitting team and they came and saw her in the meantime they asked if I talked to cardiology I talked with Dr. Salcedo who reviewed the EKG and given the patient was asymptomatic he agreed with admitting her but wanted me to talk to Dr. Winchester just in she had pain in the middle the night. I discussed the case with Dr. Winchester as well. I went to let the patient know was going on and the admitting team was in seeing the patient and the patient says she had some very vague chest discomfort which was just 2 out of 10 and it just started. Even though her symptoms are mild, they were new and she had concerning monitor changes to suggest STEMI. I repeated the EKG and she now had ST segment elevation, I did call the heart alert. She was given aspirin 324 mg chewable she tells me she is okay with this. She was given nitroglycerin sublingual. Heart alert was called and the patient will be taken to the [facility] emergently for acute STEMI. The [facility] team arrived promptly with the 1 nitroglycerin pain went back to 0 and she looks well . 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
--- NOTE | 2024-01-16 15:58 | XRay Report ---
XR chest 1V portable HISTORY: 83 years-old Female Chest pain, nonspecific COMPARISON: 01/08/2024 TECHNIQUE: AP view of the chest FINDINGS: Hiatal hernia. Cardiomegaly. Unchanged right subclavian catheter. No pneumothorax. Small left pleural effusion with mild bibasilar consolidation. Abdominal aortic stent. Bones appear grossly intact. IMPRESSION: 1. Cardiomegaly without acute process. 2. Small left pleural effusion with mild bibasilar consolidation. 3. Hiatal hernia. ACT 112: Negative or not required by law. The above report was generated using voice recognition software. It may contain grammatical, syntax o r spelling errors. Electronically signed by: Raúl Mcconnell M.D. 01/16/2024 3:55 PM
[2024-01-16 16:29] LABS: Basophils # (auto) 0.04 K/uL (0.00-0.20); Basophils % (auto) 1.9 %; Eosinophils # (auto) 0.02 K/uL (0.00-0.50); Eosinophils % (auto) 0.9 %; Hematocrit (blood only) 31.2 % (37.0-47.0); Hemoglobin 9.7 g/dl (12.0-16.0); Lymphocytes % (auto) 32.9 %; Mean Corpuscular Hemoglobin 26.5 pg (25.0-34.0); Mean Corpuscular Hgb Conc 31.1 g/dL (32.0-36.0); Mean Corpuscular Volume 85.2 fL (80.0-100.0); Mean Platelet Volume 10.2 fL (9.4-12.4); Monocytes # (auto) 0.08 K/uL (0.11-0.59); Monocytes % (auto) 3.8 %; Neutrophils # (auto) 1.29 K/uL (1.40-6.50); Neutrophils % (auto) 60.5 %; Platelet Count 217 K/uL (130-400); RDW Coefficient of Variation 18.3 % (11.5-14.5); RDW Standard Deviation 57.1 fL (36.4-46.3); Red Blood Count 3.66 M/uL (4.20-5.40); White Blood Count 2.13 K/ul (4.8-10.8)
[2024-01-16 16:46] LABS: Albumin Globulin Ratio 1.7 (0.9-2); BUN Creatinine Ratio 18.5 (10-20); Bilirubin,Total 0.2 mg/dl (0.2-1.0); Calcium 9.5 mg/dl (8.6-10.3); Creatinine Clr Calc Pharmacy 30.7 ml/min; Est GFR (Non-African American) 36.2 ml/min; Globulin 2.4 gm/dl (2.5-4.0); Potassium 4.1 mmol/L (3.5-5.1); Total Protein 6.4 gm/dl (6.0-8.3)
[2024-01-16 16:55] LABS: Troponin I High Sensitivity 3004.8 pg/ml (0-14)
[2024-01-16 17:01] LABS: Partial Thromboplastin Ratio 0.9; Partial Thromboplastin Time 24 Seconds (21-31)
[2024-01-16 17:18] LABS: D Dimer 2720 ug/L FEU (0-500)
[2024-01-16] MEDS: SODIUM CHLORIDE 0.9% 500 ML IV ONE (17:27)
[2024-01-16] MEDS: OPTIRAY 320 125ml IV ONE (17:39)
--- NOTE | 2024-01-16 17:57 | History & Physical Report ---
Date of Service January 16, 2024 Assessment & Plan (1) Acute ST elevation myocardial infarction (STEMI): (2) CAD (coronary artery disease): (3) Chest pain: (4) HTN (hypertension): (5) HLD (hyperlipidemia): (6) CKD (chronic kidney disease) stage 3, GFR 30-59 ml/min: (7) COPD (chronic obstructive pulmonary disease): (8) Adenocarcinoma of colon: Plan: Patient is 83 year old female with PMH HTN, dyslipidemia, COPD, CKD III, CAD s/p stent, prediabetes, history AAA repair, history left breast cancer s/p mastectomy, current colon cancer s/p hemicolectomy on 12/22/[address] Pedro Peace, currently receiving fluorouracil last received on 01/13/2024 presented to ER with c/o CP. Today Initially during ER presentation patient had denied any chest pain or shortness of breath. Was afebrile, Initial BP: 94/56 up to 126/82 with NSR. Initial EKG with diffuse T wave changes noted which is new from EKG on 12/27/2023 per my interpretation. Troponin: 3000. D-dimer: 2720(was 2570 11/09/20). CXR: cardiomegaly CTA Chest: No evidence for a pulmonary embolus. Trace bilateral pleural effusions. Patchy groundglass densities within the lower lobes posteriorly. These are nonspecific but favor dependent change/atelectasis. A low-grade pneumonitis would be difficult to exclude by imaging.Large hiatus hernia, unchanged. Mild cardiomegaly. Mild emphysema. A 7 mm indeterminate pulmonary nodule within the right upper lobe. During ER course patient complaining of some mild sternal chest discomfort and heartburn. New EKG obtained and ST elevation with anterior and lateral leads per my interpretation. ER physician at bedside and calls heart alert. Heart alert called. personal development educator aware. Patient was taken emergently to cardiac laboratory technical specialist Post cardiac cath was taken to ICU Patient examined in ICU and is A&O x 3 and denies any chest pain, Vitals stable with sinus rhythm rate in 70's, BP 178/82, R: 24, O2 sat 96%. radial band in place Cardiology ordered 81 mg aspirin daily, atorvastatin 40 daily, Plavix 75 daily, isosorbide 30 mg daily, metoprolol tartrate 25 mg twice daily, enalapril 10 mg twice daily Trend troponin Echo Further management per transactional paralegal Admit ICU Full Code as per discussion with pt Follows with Dr Denney for routine care Pt was seen and care coordinated with Dr Lopez. See addendum I spent a total of 76 minutes reviewing notes, outpatient records, labs, medication, coordinating, documenting and providing care for this patient excluding time spent in the performance of separately billed services. History of Present Illness Chief Complaint: CP Primary Care Provider: Jasson Denney MD Patient is 83 year old female with PMH HTN, dyslipidemia, COPD, CKD III, CAD s/p stent, prediabetes, history AAA repair, history left breast cancer s/p mastectomy, current colon cancer s/p hemicolectomy on 12/22/[address] Pedro Peace, currently receiving fluorouracil last received on 01/13/2024 presented to ER with c/o CP. History obtained from patient, patient's son and inpatient and outpatient chart review. Recent hospitalization [facility] 12/22/2023-12/29/2023, had presented for planned hemicolectomy for known colon cancer. Postoperatively patient developed significant delirium initially treated with benzodiazepines, antipsychotics and subsequently had hypercarbic respiratory failure, requiring ICU and intubation for approximately 24 hours. Was extubated and transition to room air however her delirium persisted. Benzos and antipsychotics were held and eventually patient's delirium slowly cleared and was discharged home with family assistance. Outpatient note reviewed and was at oncology clinic 01/15/2024 received NSS, Zofran as was having decreased appetite, dizziness, lightheadedness with standing and nausea and vomiting after receiving chemo on 01/13/24. Patient states went to bed last night while in bed had sudden onset of left chest pain with radiation to left shoulder with associated shortness of breath. Patient describes pain as aching and heaviness. She reports pain persisted the entire night into this morning around 8 or 9:00 AM. Initially reports thought may be indigestion and tried Pepcid without relief. Patient states was unable to sleep secondary to pain. Denies taking aspirin or nitro today. Denies palpitations, diaphoresis. Patient called oncology clinic today and reported had chest pain last night and was directed to present to ER today. States still lightheaded with walking today. Reports overall her nausea has improved and hasn't had further vomiting. Having "mushy" BMs since surgery and intermittently uses Imodium with stool firming up. Denies abdominal pain, melena, hematochezia, hematemesis. Denies fever/chills, diaphoresis, vision changes, neck pain, cough, sore throat, rhinorrhea, extremity weakness, extremity edema, rashes, urinary symptoms. Today Initially during ER presentation patient had denied any chest pain or shortness of breath. Initial EKG with diffuse T wave changes noted which is new from EKG on 12/27/2023 per my interpretation. During ER course patient complaining of some mild sternal chest discomfort and heartburn. New EKG obtained and ST elevation with anterior and lateral leads. Heart alert called. Per chart review: 12/25/2023 echo: EF greater than 70%, moderate concentric LVH, normal LV wall motion, grade 1 diastolic dysfunction, moderate aortic valve sclerosis without significant stenosis, heavy focal calcification posterior mitral valve annulus with mild restriction and posterior mitral valve leaflet mobility, no mitral stenosis, trace MR, trace TR 01/05/24: Per review of outpatient notes cardiology had recommended that patient could stop Plavix and continue aspirin 81 mg from cardiac standpoint. Patient states had held Plavix for surgeries and port placement. States that she resumed Plavix 01/10/24 and is not taking aspirin. Allergies Allergy/AdvReac Type Severity Reaction Status Date / Time adhesive tape Allergy Intermediate rash/itchy Verified 01/16/24 17:41 latex Allergy Intermediate rash/itchy Verified 01/16/24 17:41 Home Medications Medication Instructions Recorded Confirmed Type acetaminophen 325 mg tablet 650 mg PO Q6H PRN Pain 06/06/22 01/16/24 History (Tylenol) albuterol sulfate 90 mcg/actuation 2 puff inhalation Q4 PRN Shortness 06/06/22 01/16/24 History aerosol inhaler (Ventolin HFA) Of Breath Or Wheezing clopidogrel 75 mg tablet 75 mg PO QAM 06/06/22 01/16/24 History docusate sodium 100 mg capsule 100 mg PO HS 06/06/22 01/16/24 History enalapril maleate 10 mg tablet 20 mg PO QAM 06/06/22 01/16/24 History ezetimibe 10 mg tablet 10 mg PO QAM 06/06/22 01/16/24 History qhsbybchfatt-beajgzef-sfdkmc tablet 1 tab PO QAM 06/06/22 01/16/24 History nitroglycerin 0.4 mg sublingual 0.4 mg sublingual DIRECTED PRN 06/06/22 01/16/24 History tablet (Nitrostat) Chest Pain pantoprazole 20 mg tablet,delayed 20 mg PO DAILYBB 06/06/22 01/16/24 History release polyethylene glycol 3350 17 gram 17 g PO DAILY PRN Constipation 06/06/22 01/16/24 History oral powder packet (Miralax) rosuvastatin 20 mg tablet 20 mg PO QPM 06/06/22 01/16/24 History isosorbide mononitrate 30 mg 30 mg PO QAM 06/24/23 01/16/24 History tablet,extended release 24 hr duloxetine 60 mg capsule,delayed 60 mg PO QAM 12/12/23 01/16/24 History release sprinkle iron,carbonyl 65 mg-vitamin C 125 1 tab PO DAILY 12/12/23 01/16/24 History mg tablet,delayed release (Vitron-C) metoprolol tartrate 25 mg tablet 25 mg PO BID 12/12/23 01/16/24 History aspirin 81 mg tablet,delayed 81 mg PO DAILY 01/16/24 01/16/24 History release lidocaine-prilocaine 2.5 %-2.5 % 1 applic topical DIRECTED PRN 01/16/24 01/16/24 History topical cream ACCESSING PORT ondansetron HCl 8 mg tablet 8 mg PO Q8H PRN NAUSEA/VOMITING 01/16/24 01/16/24 History phenylephrine 0.25 %-cocoa butter 1 supp [place] DIRECTED PRN 01/16/24 01/16/24 History 88.44 % rectal suppository Hemorrhoids prochlorperazine maleate 10 mg 10 mg PO Q6H PRN NAUSEA/VOMITING 01/16/24 01/16/24 History tablet Past Med/Surg History Problem List Elevated troponin (Acute) Chest pain (Acute) Acute ST elevation myocardial infarction (STEMI) (Acute) Suspected UTI H/O right hemicolectomy Required emergent intubation Respiratory failure Acute heart failure with preserved ejection fraction Acute metabolic encephalopathy Acute hyperactive delirium due to another medical condition Hypokalemia Acute on chronic anemia Adenocarcinoma of colon (Acute) Status post right hemicolectomy Encounter for pre-operative examination Labyrinthine vestibulitis 06/26/23 Vertigo 06/25/23 Dizziness (Acute) 06/24/23 HTN (hypertension) (Acute) Lightheadedness 06/06/22 Contusion of eyeball and orbital tissues, right eye, initial encounter (Acute) 06/06/22 Acute dehydration (Acute) 06/06/22 Fall (Acute) 06/06/22 Abnormal EKG 10/31/20 Hydronephrosis 08/19/19 Prediabetes Depression CKD (chronic kidney disease) stage 3, GFR 30-59 ml/min COPD (chronic obstructive pulmonary disease) CAD (coronary artery disease) HLD (hyperlipidemia) Medical History Mitral valve annular calcification per 12/25/23 ECHO: Heavy focal calcification of posterior mitral valve annulus with mild restriction and posterior mitral valve leaflet mobility. No MS. Anemia chronic iron defic anemia (has received iron transfusions previously); pt also had acute blood loss anemia following R hemicolectomy 12/22/23 and was transfused 1 unit PRBCs 12/24/23 Hospitalization or health care facility admission within last 6 months [facility] 12/22/23-12/29/23: delirium, metabolic encephalopathy, acute resp failure requring intubation, s/p R hemicolectomy; pt with significant delirium postoperatively initially managed with benzo and antipsychotics, subsequent resp failure, tx to ICU where she was intubated for 24hours; delirium persisted after extubation and transition to RA (*pt's family noted hx of delirium after anesthesia previously) Colon cancer dx 10/2023, recent hemicolectomy with lymph node excision (pt to start chemotherapy in near future due to x2 lymph nodes coming back positive) Hx of myocardial infarction (05/31/02) History of postoperative delirium significant post op delirium following R hemicolectomy [facility] 12/22/23; pt tx to ICU and reintubated for 24 hours. patient was inpatient for 1 week after the surgery. pt doing well currently, but does state she is afraid to go back to sleep and has been staying with her son (significant delirium s/p R hemicolectomy under [facility] 12/22/23 (pt's family also notes hx of delirium s/p anesthesia events in the past) PVD (peripheral vascular disease) History of PVD with 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 shields, [facility] CAD (coronary artery disease) stent in LAD in 2001 and RCA in 2002, follows with [facility] cardiology Tobacco abuse hx Surgical History H/O right hemicolectomy 12/22/23: [place]: MAC#3, ETT#7.5, Gr View 2 Hx of left mastectomy with lymph node excision History of esophagogastroduodenoscopy (EGD) Hx of colonoscopy Hx of local excision of skin lesion skin cancer Hx of cardiac cath 06/02/02, [facility], [facility] in [place], x1 stent 12/2002, "routine procedure that they knew would need to be done," [facility] in [place], x1 stent; f/u dr. brooks, [facility] 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 stent graft 07/05/19, [facility], "thinks it had actually ruptured right when she got to the hospital"; excluder clips placed x6; has been monitored by dr. pope since this occurred. History of cataract removal with insertion of prosthetic lens right/left History of hysterectomy 1983 H/O heart artery stent 06/02/02, [facility], [facility] in [place], x1 stent (Cordis) 01/03/03, "routine procedure that they knew would need to be done," [facility] in [place], x1 stent (Cordis); f/u dr. brooks, [facility] Family History Mother CHF (congestive heart failure) Father Emphysema of lung Sister Brain tumor Other No family history of adverse response to anesthesia Social History Smoking Status: Never smoker Tobacco Type: Cigarettes Second Hand Exposure: Yes (hx as child); Do You Dip or Chew Tobacco: No; Hx Alcohol Use: No Hx Substance Use: No Preferred Language: Pakistani Communication Ability: Effective Ip Litigation Associate Required: No Beliefs That Will Affect Care: None marital status: / Current Living Situation: Alone Current Living Situation Comment: lives at home alone current occupational status: retired Feels Safe at Home: Yes Assistive Devices: None Review of Systems Review of Systems: All systems reviewed & are unremarkable except as noted in HPI & below Physical Exam Physical Exam: Patient examined in ER General: no apparent distress, Now complaining of sternal chest discomfort, no diaphoresis, current vitals are stable. WDWN Head: normocephalic, atraumatic Eyes: PERRL, EOM's intact, conjunctiva non-injected, anicteric ENT: normal inspection external ears, nose, mucous membranes moist Neck: supple, trachea midline, non-tender Lungs: no respiratory distress, +rales bilateral bases, no rhonchi or wheezing noted Chest wall: non-tender to palpation CV: RRR, no pretibial edema Abd: normal BS, soft, non-tender to palpation Ext: no cyanosis, no calf tenderness Neuro: A&O x 3, no focal deficits noted, normal affect Skin: warm, dry Results & Data Results & Data Vital Signs (Past 12 Hours) Vital Signs Temp Pulse Pulse Resp BP BP Pulse Ox 01/16/24 17:42 126/82 01/16/24 17:24 76 21 95 01/16/24 17:21 77 21 96 01/16/24 17:12 76 20 95 01/16/24 17:06 74 20 96 01/16/24 16:33 72 19 94 01/16/24 16:30 130/79 01/16/24 16:21 77 18 95 01/16/24 16:12 74 25 H 93 01/16/24 16:00 73 19 126/76 94 01/16/24 15:50 74 01/16/24 15:35 73 24 122/73 94 01/16/24 14:52 36.2 C L 78 16 94/56 L 96 O2 Del Method 01/16/24 17:42 01/16/24 17:24 Room Air 01/16/24 17:21 Room Air 01/16/24 17:12 Room Air 01/16/24 17:06 Room Air 01/16/24 16:33 Room Air 01/16/24 16:30 01/16/24 16:21 Room Air 01/16/24 16:12 Room Air 01/16/24 16:00 Room Air 01/16/24 15:50 01/16/24 15:35 Room Air 01/16/24 14:52 Room Air Laboratory Results Short CBC 01/16/24 Range/Units 15:11 WBC 2.13 L (4.8-10.8) K/ul Hgb 9.7 L (12.0-16.0) g/dl Hct 31.2 L (37.0-47.0) % Plt Count 217 (130-400) K/uL BMP 01/16/24 15:11 Sodium 141 Potassium 4.1 Chloride 108 H Carbon Dioxide 24 BUN 25 H Creatinine 1.35 H Glucose 118 H Calcium 9.5 Liver Function 01/16/24 Range/Units 15:11 Total Bilirubin 0.2 (0.2-1.0) mg/dl AST 31 (13-39) U/L ALT 11 (7-52) U/L Alkaline Phosphatase 65 (34-104) U/L Albumin 4.0 (3.4-5.0) gm/dl Diagnostic Findings Chest X-Ray 01/16/24 15:17 XR chest 1V portable HISTORY: 83 years-old Female Chest pain, nonspecific COMPARISON: 01/08/2024 TECHNIQUE: AP view of the chest FINDINGS: Hiatal hernia. Cardiomegaly. Unchanged right subclavian catheter. No pneumothorax. Small left pleural effusion with mild bibasilar consolidation. Abdominal aortic stent. Bones appear grossly intact. IMPRESSION: 1. Cardiomegaly without acute process. 2. Small left pleural effusion with mild bibasilar consolidation. 3. Hiatal hernia. ACT 112: Negative or not required by law. The above report was generated using voice recognition software. It may contain grammatical, syntax or spelling errors. Electronically signed by: Raúl Mcconnell M.D. 01/16/2024 3:55 PM Chest CTA 01/16/24 17:09 CHEST CTA for PULMONARY ARTERIES CT DOSE: 430.9 mGy.cm HISTORY: Shortness of breath. TECHNIQUE: Multiaxial CT images of the chest were performed following the intravenous administration of contrast to evaluate the pulmonary arteries. 3D/Maximal intensity projection images were also obtained. Sagittal and coronal reformations were also reviewed. A dose lowering technique was utilized adhering to the principles of ALARA. COMPARISON STUDY: Chest CT 06/01/2022. FINDINGS: Normal caliber thoracic aorta with no evidence for dissection. There is mild calcified plaque within the thoracic aorta. The heart is mildly enlarged. No pericardial effusion. Trace bilateral pleural effusions. Severe coronary artery calcifications and mitral annulus calcifications are noted. No filling defects within the pulmonary arteries to suggest a pulmonary embolus. Normal thyroid gland. Prior left mastectomy. Limited views the upper abdomen demonstrate a normal liver, spleen, and adrenal glands. There is a partially visualized abdominal aortic stent. There is a large hiatus hernia containing the proximal stomach. This remains unchanged. No mediastinal or hilar lymphadenopathy. No suspicious lytic or blastic osseous lesions. A right subclavian Port-A-Cath terminates in the SVC. No pneumothorax. The central airways are patent. Mild emphysema. Mild biapical pleural-parenchymal scarring. Patchy groundglass densities within the lower lobes posteriorly favor mild dependent changes. A low-grade pneumonitis would be difficult to exclude by imaging. There is a 7 mm subpleural nodule within the right upper lobe on image 188. There is a 3 mm groundglass nodule within the right upper lobe on image 149. IMPRESSION: 1. No evidence for a pulmonary embolus. 2. Trace bilateral pleural effusions. 3. Patchy groundglass densities within the lower lobes posteriorly. These are nonspecific but favor dependent change/atelectasis. A low-grade pneumonitis would be difficult to exclude by imaging. 4. Large hiatus hernia, unchanged. 5. Mild cardiomegaly. 6. Mild emphysema. 7. A 7 mm indeterminate pulmonary nodule within the right upper lobe. Please refer to below summary of Fleischner criteria recommendations for follow- up of incidental CT nodules (Tyra Rios, Guidelines for management of small pulmonary nodules detected on CT scans: A statement from the Fleischner Society, Radiology 237: [phone].) SOLID NODULES Solitary nodule size: <6 mm * Low risk patients: no follow-up needed * high risk patients: optional CT at 12 months Solitary nodule size: 6-8 mm * Low risk patients: follow-up at 6-12 months, then consider further follow-up at 18-24 months * high risk patients: initial follow-up CT at 6-12 months and then at 18-24 months if no change Solitary nodule size: >8 mm * either low or high risk patients - consider follow-up CT at 3 months, and/or CT-PET, and/or biopsy Multiple nodules size: <6 mm * Low risk patients: no routine follow-up * high risk patients: optional CT at 12 months Multiple nodules size: 6-8 mm * Low risk patients: follow-up at 3-6 months, then consider further follow-up at 18-24 months * high risk patients: follow-up at 3-6 months, then at 18-24 months if no change Multiple nodules size: >8 mm * Low risk patients: follow-up at 3-6 months, then consider further follow-up at 18-24 months * high risk patients: follow-up at 3-6 months, then at 18-24 months if no change Note: newly detected indeterminate nodule in persons 35 years of age or older. * Low risk patients: minimal or absent history of smoking and/or other known risk factors * high risk patients: history of smoking or of other known risk factors (e.g. first degree relative with lung cancer, or exposure to asbestos, radon, uranium) * if a nodule up to 8 mm is partly solid or is ground glass further follow-up is required after 24 months to exclude possible slow growing adenocarcinoma ([place]ILL) SUBSOLID NODULES Solitary pure ground-glass nodule * nodule size <6 mm - no CT follow-up required * nodule size >=6 mm - follow-up CT at 6-12 months, then every 2 years until 5 years Solitary part-solid nodule * nodule size <6 mm - no CT follow-up required * nodule size >=6 mm - follow-up CT at 3-6 months. If unchanged, and solid component remains <6 mm, then annual follow-up for 5 years Multiple subsolid nodules * nodule size <6 mm - follow-up CT at 3-6 months, consider further follow-up at 2 and 4 years if stable * nodule size >=6 mm - follow-up CT at 3-6 months, subsequent management based on the most suspicious nodule(s) ACT 112: Positive. There are findings on this exam that require communication between the performing entity and the patient following Patient Test Result Information Act ([place] Act 112) guidelines. Electronically signed by: Ty William M.D. 01/16/2024 6:02 PM Supervising Physician Co-Signing Physician Notes Care coordinated with Izabella Crenshaw PA-C. Agree with above note. Please refer to her notes for full details. Patient with hx of CAd, Breast cancer, copd, ckd stage 3, HTn recent dx of colon cancer s/p hemicolectomy 12/22/23 and currently on fluorouracil last received on 01/13/24 came with chest pain and found to have elevated troponin and st elevations. 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 Patient was transferred to ICU for close monitoring. Initially was doing fine but then patient suddenly became bradycardic, unresponsive and lost pulse. Code blue was called.CPR was initiated and when pads placed was in V fib and one shock was delivered.CPR resumed ,Epinephrine and amiodarone was given and patient was intubated.Son was called and notified and as son was in parking lot came to ICU. Cardiology was notified.Code was run per ACLS protocol as mentioned in critical care notes but unfortunately patient didn't recover and was pronounced at 2054 on January 16 2024.Possible cause chemo induced cardiomyopathy contemplated . Earlier CTA chest was negative for PE.Cardiology, Critical care and myself updated son of the events and unfortunate patient demise. Jake argueta MD.
--- NOTE | 2024-01-16 18:04 | CT Scan Report ---
CHEST CTA for PULMONARY ARTERIES CT DOSE: 430.9 mGy.cm HISTORY: Shortness of breath. TECHNIQUE: Multiaxial CT images of the chest were performed following the intravenous administration of contrast to evaluate the pulmonary arteries. 3D/Maximal intensity projection images were also obta ined. Sagittal and coronal reformations were also reviewed. A dose lowering technique was utilized a dhering to the principles of ALARA. COMPARISON STUDY: Chest CT 06/01/2022. FINDINGS: Normal caliber thoracic aorta with no evidence for dissection. There is mild calcified plaq ue within the thoracic aorta. The heart is mildly enlarged. No pericardial effusion. Trace bilateral pleural effusions. Severe coronary artery calcifications and mitral annulus calcifications are noted. No filling defects within the pulmonary arteries to suggest a pulmonary embolus. Normal thyroid glan d. Prior left mastectomy. Limited views the upper abdomen demonstrate a normal liver, spleen, and adr enal glands. There is a partially visualized abdominal aortic stent. There is a large hiatus hernia c ontaining the proximal stomach. This remains unchanged. No mediastinal or hilar lymphadenopathy. No s uspicious lytic or blastic osseous lesions. A right subclavian Port-A-Cath terminates in the SVC. No pneumothorax. The central airways are patent. Mild emphysema. Mild biapical pleural-parenchymal scarr ing. Patchy groundglass densities within the lower lobes posteriorly favor mild dependent changes. A low-grade pneumonitis would be difficult to exclude by imaging. There is a 7 mm subpleural nodule wit hin the right upper lobe on image 188. There is a 3 mm groundglass nodule within the right upper lobe on image 149. IMPRESSION: 1. No evidence for a pulmonary embolus. 2. Trace bilateral pleural effusions. 3. Patchy groundglass densities within the lower lobes posteriorly. These are nonspecific but favor d ependent change/atelectasis. A low-grade pneumonitis would be difficult to exclude by imaging. 4. Large hiatus hernia, unchanged. 5. Mild cardiomegaly. 6. Mild emphysema. 7. A 7 mm indeterminate pulmonary nodule within the right upper lobe. Please refer to below summary of Fleischner criteria recommendations for follow-up of incidental CT n odules (Tyra Rios, Guidelines for management of small pulmonary nodules detected on CT scans: A sta tement from the Fleischner Society, Radiology 237: [phone].) SOLID NODULES Solitary nodule size: <6 mm * Low risk patients: no follow-up needed * high risk patients: optional CT at 12 months Solitary nodule size: 6-8 mm * Low risk patients: follow-up at 6-12 months, then consider further follow-up at 18-24 months * high risk patients: initial follow-up CT at 6-12 months and then at 18-24 months if no change Solitary nodule size: >8 mm * either low or high risk patients - consider follow-up CT at 3 months, and/or CT-PET, and/or biopsy Multiple nodules size: <6 mm * Low risk patients: no routine follow-up * high risk patients: optional CT at 12 months Multiple nodules size: 6-8 mm * Low risk patients: follow-up at 3-6 months, then consider further follow-up at 18-24 months * high risk patients: follow-up at 3-6 months, then at 18-24 months if no change Multiple nodules size: >8 mm * Low risk patients: follow-up at 3-6 months, then consider further follow-up at 18-24 months * high risk patients: follow-up at 3-6 months, then at 18-24 months if no change Note: newly detected indeterminate nodule in persons 35 years of age or older. * Low risk patients: minimal or absent history of smoking and/or other known risk factors * high risk patients: history of smoking or of other known risk factors (e.g. first degree relative with lung cancer, or exposure to asbestos, radon, uranium) * if a nodule up to 8 mm is partly solid or is ground glass further follow-up is required after 24 m onths to exclude possible slow growing adenocarcinoma ([facility]) SUBSOLID NODULES Solitary pure ground-glass nodule * nodule size <6 mm - no CT follow-up required * nodule size >=6 mm - follow-up CT at 6-12 months, then every 2 years until 5 years Solitary part-solid nodule * nodule size <6 mm - no CT follow-up required * nodule size >=6 mm - follow-up CT at 3-6 months. If unchanged, and solid component remains <6 mm, then annual follow-up for 5 years Multiple subsolid nodules * nodule size <6 mm - follow-up CT at 3-6 months, consider further follow-up at 2 and 4 years if sta ble * nodule size >=6 mm - follow-up CT at 3-6 months, subsequent management based on the most suspiciou s nodule(s) ACT 112: Positive. There are findings on this exam that require communication between the performing entity and the patient following Patient Test Result Information Act ([place] Act 112) guidelines. Electronically signed by: Ty William M.D. 01/16/2024 6:02 PM
[2024-01-16] MEDS: ASPIRIN CHEW 324 MG ONE (18:23)
[2024-01-16] MEDS: NITROGLYCERIN SL 0.4 MG/TAB TAB ONE (18:25)
[2024-01-16] MEDS: ASPIRIN 81 MG CHEW PO STA (18:25)
[2024-01-16] MEDS: NITROGLYCERIN SL 0.4 MG/TAB TAB SL STA (18:35)
[2024-01-16] MEDS: HEPARIN (PORCINE) 1000 UNIT/ML 10 ML (CATH LAB USE ONLY) ONE (18:44)
[2024-01-16] MEDS ORDERED: HEPARIN SOD (PORCINE) 1000 UNIT/ML 10 ML VIAL IV ONE (18:53)
[2024-01-16] MEDS: NITROGLYCERIN/D5W 100MCG/ML 20ML SYR ONE (19:07)
[2024-01-16] MEDS: niCARdipine HCL INJ 2.5 MG/ML 10 ML AMP ONE (19:07)
[2024-01-16] MEDS: MIDAZOLAM HCL 1 MG/ML 2ML VIAL ONE (19:28)
[2024-01-16] MEDS: fentaNYL citrate PF 100 MCG/2 ML VIAL ONE (19:28)
[2024-01-16] MEDS: IODIXANOL (VISIPAQUE) 320 MG/ML 100ML IV ONE (19:29)
[2024-01-16] MEDS: HEPARIN SOD (PORCINE) 1000 UNIT/ML ONE (19:32)
[2024-01-16] MEDS ORDERED: NITROGLYCERIN SL 0.4 MG/TAB TAB SL PRN (20:17)
[2024-01-16] MEDS ORDERED: ACETAMINOPHEN 325 MG TAB PO PRN (20:17)
[2024-01-16] MEDS ORDERED: ONDANSETRON INJ 2 MG/ML 2 ML VIAL IV PRN (20:17)
--- NOTE | 2024-01-16 20:24 | Pre Anesthesia Assessment ---
Date of Service January 16, 2024 Pre Sedation Assessment Vital Signs Temp Pulse Pulse Resp BP BP Pulse Ox 01/16/24 20:09 36.6 C 78 25 H 178/82 H 01/16/24 18:45 83 20 96 01/16/24 18:33 83 23 92 01/16/24 18:30 124/89 01/16/24 18:24 138/88 01/16/24 18:21 81 22 138/88 97 01/16/24 18:15 78 21 96 01/16/24 18:09 78 20 96 01/16/24 18:00 125/89 01/16/24 17:42 126/82 01/16/24 17:24 76 21 95 01/16/24 17:21 77 21 96 01/16/24 17:12 76 20 95 01/16/24 17:06 74 20 96 01/16/24 16:33 72 19 94 01/16/24 16:30 130/79 01/16/24 16:21 77 18 95 01/16/24 16:12 74 25 H 93 01/16/24 16:00 73 19 126/76 94 01/16/24 15:50 74 01/16/24 15:35 73 24 122/73 94 01/16/24 14:52 36.2 C L 78 16 94/56 L 96 O2 Del Method 01/16/24 20:09 01/16/24 18:45 Room Air 01/16/24 18:33 Room Air 01/16/24 18:30 01/16/24 18:24 01/16/24 18:21 01/16/24 18:15 01/16/24 18:09 01/16/24 18:00 01/16/24 17:42 01/16/24 17:24 Room Air 01/16/24 17:21 Room Air 01/16/24 17:12 Room Air 01/16/24 17:06 Room Air 01/16/24 16:33 Room Air 01/16/24 16:30 01/16/24 16:21 Room Air 01/16/24 16:12 Room Air 01/16/24 16:00 Room Air 01/16/24 15:50 01/16/24 15:35 Room Air 01/16/24 14:52 Room Air Cardiovascular RRR, no murmur, no edema Respiratory normal respiratory effort, lungs clear to auscultation Pre-Sedation Airway Assessment Smoking Status: Never smoker Mallampati 2 ASA 4 Notes The planned sedation has been discussed with the patient. Informed Consent was obtained. I have identified the patient, determined the appropriateness of sedation and have assessed the patient immediately prior to the procedure. All medicine(s) and interventions are by my order.
--- NOTE | 2024-01-16 20:25 | Post Anesthesia Assessment ---
Date of Service January 16, 2024 Post Sedation Assessment Vital Signs Temp Pulse Pulse Resp BP BP Pulse Ox 01/16/24 20:09 36.6 C 78 25 H 178/82 H 01/16/24 18:45 83 20 96 01/16/24 18:33 83 23 92 01/16/24 18:30 124/89 01/16/24 18:24 138/88 01/16/24 18:21 81 22 138/88 97 01/16/24 18:15 78 21 96 01/16/24 18:09 78 20 96 01/16/24 18:00 125/89 01/16/24 17:42 126/82 01/16/24 17:24 76 21 95 01/16/24 17:21 77 21 96 01/16/24 17:12 76 20 95 01/16/24 17:06 74 20 96 01/16/24 16:33 72 19 94 01/16/24 16:30 130/79 01/16/24 16:21 77 18 95 01/16/24 16:12 74 25 H 93 01/16/24 16:00 73 19 126/76 94 01/16/24 15:50 74 01/16/24 15:35 73 24 122/73 94 01/16/24 14:52 36.2 C L 78 16 94/56 L 96 O2 Del Method 01/16/24 20:09 01/16/24 18:45 Room Air 01/16/24 18:33 Room Air 01/16/24 18:30 01/16/24 18:24 01/16/24 18:21 01/16/24 18:15 01/16/24 18:09 01/16/24 18:00 01/16/24 17:42 01/16/24 17:24 Room Air 01/16/24 17:21 Room Air 01/16/24 17:12 Room Air 01/16/24 17:06 Room Air 01/16/24 16:33 Room Air 01/16/24 16:30 01/16/24 16:21 Room Air 01/16/24 16:12 Room Air 01/16/24 16:00 Room Air 01/16/24 15:50 01/16/24 15:35 Room Air 01/16/24 14:52 Room Air Recovery Score Activity: Moves 4 extremities Respiration: Deep Breath/Cough Circulation: +/-20% PreAnes Value Consciousness: Fully Awake Oxygen Saturation: > 92% On Room Air Discharge Sedation Level of Care: Fast Track Phase II Post Sedation Plan On clinical assessment, the patient appears to have tolerated the sedation without complications. Patient is recovering as anticipated. Patient will continue to be monitored by nursing and may be discharged when sedation discharge criteria are met per below protocol. Upon Completions of procedure up to 15 minutes continue every 5 minute vital signs and the P.A.R. score; then discharge to a Phase I or Fast Track to Phase II per the following guidelines: * Discharge Patient to appropriate Phase II area if PAR is 8 or greater or r eturn to pre- procedure baseline. The post - procedure orders will be as directed. * If PAR score is less than 8 or not return to pre-procedure baseline then patient will follow Phase I monitoring till PAR is reached for Phase II. The Phase I may be done in procedure room or may call to secure a Phase I area. * If naloxone or flumazenil are used for reversal, hold in Phase I for continued monitoring from when last reversal dose was given for a minimum of 60 minutes or longer pending the nurse and/or physician discretion of patient condition before discharge to Phase II. Please call the Sedation Physician to re-evaluate and complete post-note for discharge to Phase II area. Do NOT discharge from procedure sedation or Phase 1 until post- sedation evaluation note is complete by procedure /sedation MD Sedation Discharge Instructions to be given to the patient at discharge to home. [facility] Procedure Codes (Charges) Indication for Procedure Indication for procedure: STEMI Sedation/Anesthesia Procedure 1: Sedation/Anesthesia: 94273 Mod Sedation by the same physician;Init15 Min Child Age 5 & Up (Initial 15 minutes, start time 190) Total Sedation Time (minutes): 31 Procedure 2: Sedation/Anesthesia: 46513 Mod Sedation by the same physician; Ea [id number] Minutes (Additional 16 minutes, end time 193) Total Sedation Time (minutes): 31
--- NOTE | 2024-01-16 20:38 | Cardiology Consultation ---
Date of Consultation January 16, 2024 Assessment & Plan (1) Elevated troponin: Unclear etiology. The patient does have chronic severe coronary artery disease including DRAFTER CIV[employer] ENGINEERING of the ramus and collaterals to that area. The area affected does correlate to the EKG findings of ST elevation. However does not appear to have any acute thrombotic lesions which would be targets for PCI. An echocardiogram would be very useful at this point. She could have any number of reasons for the elevated troponin, chest pain, and fluctuating EKG changes including Takotsubo cardiomyopathy, chemotherapy induced cardiomyopathy, acute hypertension causing demand ischemia and manifesting as ST elevations in this chronically occluded territory, or tachycardia doing the same. I did not note significant tachycardia with the ST elevations on the EKG that I observed. In any case, we will continue workup and treatment. She should remain on her usual aspirin and Plavix. She should also continue her TRAY inhibitor, statin, and beta-kristin. Because her chest discomfort responded with complete resolution to nitroglycerin I think this should continue and she should also take her long- acting nitrate. Additional recommendations pending results of echocardiogram. The primary cardiology team will see her in the morning. I note that on her prior admission she had elevated troponins but not as high as we see today. I also note she had a very elevated D-dimer in the past to about the same level as what she had today. (2) HTN (hypertension): Blood pressure was very elevated on arrival to the [facility]. She did respond to sedation and the radial cocktail of nicardipine plus nitroglycerin. Initiating her home regimen and then additional recommendations by the primary team tomorrow. (3) HLD (hyperlipidemia): Patient is high risk. High intensity statin therapy at home has been on Crestor 20 mg daily. Here we will start atorvastatin 40 mg daily. Primary cardiology team can decide if 80 mg may be a more appropriate dose for her. History of Present Illness Reason for Consultation: Chest pain EKG changes Attending Physician: Adeel Winchester MD, PhD History of Present Illness Send 83-year-old female with complex past cardiac and medical history. To briefly summarize her cardiac history, she had acute GA in 2001 and was treated with a drug-eluting stent to her LAD by Dr. Quinones at the [facility] in [facility]. She then had an elective PCI done to her RCA in 2002 with a second stent implantation. She was a long standing smoker and continued to smoke. She has been followed more recently by the [facility] cardiology group in [place]. In 2019 patient had a ruptured abdominal aortic aneurysm treated by [facility] performed by Dr. Cabrera. He has followed her in vascular surgery clinic since that time. What I can gather from her available records is that she had most recent echocardiogram demonstrating normal LV size with hyperdynamic function and EF greater than 70%. There was moderate LVH and grade 1 diastolic dysfunction. No significant valvular pathology although she did have severe mitral annular calcification and sclerotic aortic valve there were no significant aortic stenosis or aortic regurgitation, mitral stenosis or mitral regurgitation, and no more than trivial tricuspid regurgitation. Her noncardiac pertinent history includes recent diagnosis of colon cancer (October 2023) with lymph node metastases. On December 21 she underwent right hemicolectomy and was admitted until her discharge on the . During that hospitalization she had acute delirium, metabolic encephalopathy, acute respiratory failure requiring intubation, and suspicion of UTI. She was subsequently discharged. Patient returned to the hospital to undergo chemotherapy port insertion and then was started on outpatient chemotherapy (regimen unavailable). 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 For her current admission, she evidently developed chest pain on evening with associated shortness of breath and nausea. She came to the oncology office this morning and because of her symptoms they sent her to the emergency department. On arrival in the emergency department she had no symptoms. An EKG was obtained and showed T wave inversions in the lateral leads V3 through V6. Cardiac troponin was elevated. However the patient had no symptoms and the primary cardiology team was consulted. Because it was after hours they asked that I be notified of the patient's presence in the hospital given the elevated troponin just to "give you a heads up". I therefore spoke with the emergency medicine physician who relayed the details of the case at that time. I recommended heparin drip if her cell counts and particularly her platelets were okay. Shortly thereafter I was contacted for "acute ST elevation GA". On my arrival to the emergency department I went to see the patient and at that time she was not having any chest discomfort. The emergency department physician notified me that after speaking on the phone with me he went to see her in the room and she was having chest pain. He obtained a second EKG and that [address] elevations in leads V3 through V6. Therefore he activated the Packaging Engineer and asked me to come see her. As stated, she was not having any further chest pain as she responded positively to nitroglycerin. After a brief discussion with her decision was made to go to the cardiac catheterization suite so that we could evaluate her coronary arteries. She then underwent coronary angiography which revealed chronic total occlusion of what appeared to be a ramus vessel supplying a large part of the lateral myocardium. Prior stent in the LAD was patent although we did not visualize the RCA stent the RCA itself appeared patent. There was diffuse mild to moderate disease but there appeared to be no acute lesions and no staining of the myocardium to suggest that this was an ACS. We did not perform a left ventriculogram because of the patient's poor renal function and her total contrast load for the day. (A CT scan had been performed of her chest to rule out PE because she had a very elevated d-dimer). I noted on the coronary angiography her left ventricle did not appear to be moving very well particularly the apical segments which appeared akinetic. After completing the procedure and with no target lesions as a culprit the patient was admitted to the ICU. By that point she no longer had any ST elevations and no longer had chest pain. I requested an echocardiogram with the presumption that she had a Takotsubo cardiomyopathy or potential cardiomyopathy from recent chemotherapy. I also spoke with her son in the cardiac cath waiting area regarding findings on her catheterization and plan for further workup and management as below. Allergies Allergy/AdvReac Type Severity Reaction Status Date / Time adhesive tape Allergy Intermediate rash/itchy Verified 01/16/24 17:41 latex Allergy Intermediate rash/itchy Verified 01/16/24 17:41 Home Medications Medication Instructions Recorded Confirmed Type acetaminophen 325 mg tablet 650 mg PO Q6H PRN Pain 06/06/22 01/16/24 History (Tylenol) albuterol sulfate 90 mcg/actuation 2 puff inhalation Q4 PRN Shortness 06/06/22 01/16/24 History aerosol inhaler (Ventolin HFA) Of Breath Or Wheezing clopidogrel 75 mg tablet 75 mg PO QAM 06/06/22 01/16/24 History docusate sodium 100 mg capsule 100 mg PO HS 06/06/22 01/16/24 History enalapril maleate 10 mg tablet 20 mg PO QAM 06/06/22 01/16/24 History ezetimibe 10 mg tablet 10 mg PO QAM 06/06/22 01/16/24 History rzyoukeetvog-ologkqxe-argofm tablet 1 tab PO QAM 06/06/22 01/16/24 History nitroglycerin 0.4 mg sublingual 0.4 mg sublingual DIRECTED PRN 06/06/22 01/16/24 History tablet (Nitrostat) Chest Pain pantoprazole 20 mg tablet,delayed 20 mg PO DAILYBB 06/06/22 01/16/24 History release polyethylene glycol 3350 17 gram 17 g PO DAILY PRN Constipation 06/06/22 01/16/24 History oral powder packet (Miralax) rosuvastatin 20 mg tablet 20 mg PO QPM 06/06/22 01/16/24 History isosorbide mononitrate 30 mg 30 mg PO QAM 06/24/23 01/16/24 History tablet,extended release 24 hr duloxetine 60 mg capsule,delayed 60 mg PO QAM 12/12/23 01/16/24 History release sprinkle iron,carbonyl 65 mg-vitamin C 125 1 tab PO DAILY 12/12/23 01/16/24 History mg tablet,delayed release (Vitron-C) metoprolol tartrate 25 mg tablet 25 mg PO BID 12/12/23 01/16/24 History aspirin 81 mg tablet,delayed 81 mg PO DAILY 01/16/24 01/16/24 History release lidocaine-prilocaine 2.5 %-2.5 % 1 applic topical DIRECTED PRN 01/16/24 01/16/24 History topical cream ACCESSING PORT ondansetron HCl 8 mg tablet 8 mg PO Q8H PRN NAUSEA/VOMITING 01/16/24 01/16/24 History phenylephrine 0.25 %-cocoa butter 1 supp DE DIRECTED PRN 01/16/24 01/16/24 History 88.44 % rectal suppository Hemorrhoids prochlorperazine maleate 10 mg 10 mg PO Q6H PRN NAUSEA/VOMITING 01/16/24 01/16/24 History tablet Patient History Medical History Mitral valve annular calcification per 12/25/23 ECHO: Heavy focal calcification of posterior mitral valve annulus with mild restriction and posterior mitral valve leaflet mobility. No MS. Anemia chronic iron defic anemia (has received iron transfusions previously); pt also had acute blood loss anemia following R hemicolectomy 12/22/23 and was transfused 1 unit PRBCs 12/24/23 Hospitalization or health care facility admission within last 6 months [facility] 12/22/23-12/29/23: delirium, metabolic encephalopathy, acute resp failure requring intubation, s/p R hemicolectomy; pt with significant delirium postoperatively initially managed with benzo and antipsychotics, subsequent resp failure, tx to ICU where she was intubated for 24hours; delirium persisted after extubation and transition to RA (*pt's family noted hx of delirium after anesthesia previously) Colon cancer dx 10/2023, recent hemicolectomy with lymph node excision (pt to start chemotherapy in near future due to x2 lymph nodes coming back positive) Hx of myocardial infarction (05/31/02) History of postoperative delirium significant post op delirium following R hemicolectomy [facility] 12/22/23; pt tx to ICU and reintubated for 24 hours. patient was inpatient for 1 week after the surgery. pt doing well currently, but does state she is afraid to go back to sleep and has been staying with her son (significant delirium s/p R hemicolectomy under GA 12/22/23 (pt's family also notes hx of delirium s/p anesthesia events in the past) PVD (peripheral vascular disease) History of PVD with 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 shields, [facility] CAD (coronary artery disease) stent in LAD in 2001 and RCA in 2002, follows with [facility] cardiology Tobacco abuse hx Surgical History H/O right hemicolectomy 12/22/23: GA: MAC#3, ETT#7.5, Gr View 2 Hx of left mastectomy with lymph node excision History of esophagogastroduodenoscopy (EGD) Hx of colonoscopy Hx of local excision of skin lesion skin cancer Hx of cardiac cath 06/02/02, [facility], [facility] in [place], x1 stent 12/2002, "routine procedure that they knew would need to be done," [facility] in [place], x1 stent; f/u dr. brooks charly 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 stent graft 07/05/19, [facility], "thinks it had actually ruptured right when she got to the hospital"; excluder clips placed x6; has been monitored by dr. cabrera since this occurred. History of cataract removal with insertion of prosthetic lens right/left History of hysterectomy 1983 H/O heart artery stent 06/02/02, [facility], [facility] in [place], x1 stent (Cordis) 01/03/03, "routine procedure that they knew would need to be done," [facility] in [place], x1 stent (Cordis); f/u dr. brooks [facility] Family History Mother CHF (congestive heart failure) Father Emphysema of lung Sister Brain tumor Other No family history of adverse response to anesthesia Social History Smoking Status: Never smoker Tobacco Type: Cigarettes Second Hand Exposure: Yes (hx as child); Do You Dip or Chew Tobacco: No; Hx Alcohol Use: No Hx Substance Use: No Preferred Language: Filipino Communication Ability: Effective Ophthalmic Technologist Required: No Beliefs That Will Affect Care: None marital status: / Current Living Situation: Alone Current Living Situation Comment: lives at home alone current occupational status: retired Other Information That Helps Us Care for You: No Feels Safe at Home: Yes Safety Concerns: Feels Safe At This Time Assistive Devices: None Assistive Devices Comment: right chest goetz Review of Systems Review of Systems: Negative except as per HPI Physical Exam Constitutional: WD/WN, vitals as above (Elderly chronically ill-appearing female in no acute distress) Eyes: Extraocular muscles intact. The sclera are anicteric. She is pale. ENMT: Oral mucosa is pink moist and intact Neck: No JVD Respiratory: Clear to auscultation bilaterally. No wheezing, rhonchi, or rales. Diminished air movement. Cardiovascular: Regular rate and rhythm. S4 gallop. Soft systolic murmur. No edema. Musculoskeletal: no cyanosis or clubbing, extremities motor strength 5/5 Neurologic: Cognition is intact. Speech is fluent. No focal deficits. Psychiatric: A+Ox3, euthymic affect Results & Data Vital Signs (Past 12 Hours) Vital Signs Temp Pulse Pulse Resp BP BP Pulse Ox 01/16/24 20:09 36.6 C 78 25 H 178/82 H 01/16/24 18:45 83 20 96 01/16/24 18:33 83 23 92 01/16/24 18:30 124/89 01/16/24 18:24 138/88 01/16/24 18:21 81 22 138/88 97 01/16/24 18:15 78 21 96 01/16/24 18:09 78 20 96 01/16/24 18:00 125/89 01/16/24 17:42 126/82 01/16/24 17:24 76 21 95 01/16/24 17:21 77 21 96 01/16/24 17:12 76 20 95 01/16/24 17:06 74 20 96 01/16/24 16:33 72 19 94 01/16/24 16:30 130/79 01/16/24 16:21 77 18 95 01/16/24 16:12 74 25 H 93 01/16/24 16:00 73 19 126/76 94 01/16/24 15:50 74 01/16/24 15:35 73 24 122/73 94 01/16/24 14:52 36.2 C L 78 16 94/56 L 96 O2 Del Method 01/16/24 20:09 01/16/24 18:45 Room Air 01/16/24 18:33 Room Air 01/16/24 18:30 01/16/24 18:24 01/16/24 18:21 01/16/24 18:15 01/16/24 18:09 01/16/24 18:00 01/16/24 17:42 01/16/24 17:24 Room Air 01/16/24 17:21 Room Air 01/16/24 17:12 Room Air 01/16/24 17:06 Room Air 01/16/24 16:33 Room Air 01/16/24 16:30 01/16/24 16:21 Room Air 01/16/24 16:12 Room Air 01/16/24 16:00 Room Air 01/16/24 15:50 01/16/24 15:35 Room Air 01/16/24 14:52 Room Air PG Care Time/CCT Total # of Minutes Spent Total Time Spent with Patient: Total time spent is greater than 50% in coordination of care (as documented) at patient's floor/unit and/or counseling patient: Critical Care Time: Yes Total Critical Care Time: 70 A total of 70 minutes critical care time was spent in evaluation/examination of the patient, review of the EKGs, old echo reports, and all the old available recent and more remote medical records, discussion with the patient, her son, and the emergency medicine team as well as additional discussion with Packaging [facility] team and the hospitalist. This time also included the formulation and implementation of a plan of care and all associated documentation. This time is exclusive of the time spent for the procedure. Coding Level of Care Code 29887 CRITICAL CARE 1ST 30-74M Diagnoses Elevated troponin R79.89 HTN (hypertension) I10 HLD (hyperlipidemia) E78.5 Additional Codes Critical Care Time - Critical Care Time: Yes ([id number]) Time Spent (min) 70
--- OUTSIDE RECORDS SUMMARY | 2024-01-16 20:41 | External Medical Summary | Summary of Care ---
Author Name Unknown Organization [facility] Address [address] [place] [address] Phone [phone] Care Team Providers Care Diet Attendant Name Role Phone Jasson Denney MD Primary Care Provide r Reason for Visit * Reason Onset Date Comments Follow Up 01/15/2024 Encounter Details Date Type Department Care Team (Late st Contact Info) Description 01/15/2024 Telephone Hematology/Oncology [facility] [place] 200 [facility] [address] Abena Xiong CRNP [address] [place] [address] Follow Up Allergies Active Allergy Reactions Criticality Noted Date Comments Adhesive Tape 04/11/2006 Latex 06/06/2022 Other reaction(s): rash/itchy documented as of this encounter (statuses as of 01/15/2024) Medications Medication Sig Dispensed Refills Start Date End Date Status CENTRUM SILVER PO TABS one a day 0 08/11/2007 Active Polyethylene Glycol 3350 17 GM/SCOOP Oral Powder Take 17 g by mouth daily as needed for Constipation. Active VENTOLIN HFA 108 (90 Base) MCG/ACT [...] mouth every night at bedtime. 07/12/2019 Active Phenylephrine-[place] Butter 0.25-88.44 % Rectal Suppository Administer into [...] the morning. 90 Capsule 1 09/30/2023 Active Pantoprazole Sodium 20 MG Oral Tablet Delayed Release (Protonix) Take 1 Tablet by mouth in the morning. 30 minutes before the first meal of the day. Do not crush, split or chew the tablet. 90 Tablet 3 10/14/2023 Active Isosorbide Mononitrate ER 30 MG Oral Tablet Extended Release 24 Hour (Imdur)Indications: Coronary artery disease involving [place] coronary artery of [place] heart without angina pectoris TAKE 1 TABLET BY MOUTH EVERY DAY IN THE MORNING 90 Tablet 1 11/13/2023 Active Enalapril Maleate 10 MG Oral Tablet (Vasotec) TAKE 2 TABLETS BY MOUTH EVERY DAY 180 Tablet 1 12/11/2023 Active Ondansetron HCl 8 MG Oral Tablet (Zofran)Indications :Malignant neoplasm of cecum (HCC) Take 1 Tablet by mouth every 8 hours as needed for Nausea. 30 Tablet 3 01/01/2024 Active Prochlorperazine Maleate 10 MG Oral Tablet (Compazine)Indicati ons:Malignant neoplasm of cecum (HCC) Take 1 Tablet by mouth every 6 hours as needed for Nausea. 30 Tablet 3 01/01/2024 Active Lidocaine-Prilocain e 2.5-2.5 % External Cream (Emla)Indications:M alignant neoplasm of cecum (HCC) APPLY TO SKIN OVER MEDIPORT & COVER 1HR PRIOR TO ACCESSING. 30 g 1 01/01/2024 Active Metoprolol Tartrate 25 MG Oral Tablet (Lopressor) Take 1 Tablet by mouth in the morning and 1 Tablet before bedtime. 180 Tablet 3 01/05/2024 Active Aspirin 81 MG Oral Tablet Delayed Release Take 1 Tablet by mouth in the morning. 01/06/2024 Active Clopidogrel Bisulfate 75 MG Oral Tablet (pLAVix) Take 1 Tablet by mouth in the morning. Active documented as of this encounter (statuses as of 01/15/2024) Active Problems Problem Noted Date Diagnosed Date S/P right hemicolectomy 01/09/2024 Overlapping malignant neoplasm of colon 12/31/19 24 Iron deficiency anemia 08/12/2023 Encounter for antineoplastic chemotherapy 2022 Malignant neoplasm of left b reast in female, estrogen receptor positive 06/28/2022 Postherpetic neuralgia 06/28/2022 Hiatal hernia 08/07/2021 Schatzki's ring 08/07/2021 S/P angioplasty with stent 11/15/2020 Coronary artery disease invo lving [place] heart without angina pectoris 11/15/2020 Cardiac murmur [...] as of this encounter (statuses as of 01/15/2024) Resolved Problems Problem Noted Date Diagnosed Date Resolved Date Colonic mass 11/25/2023 01/09/2024 AAA (abdominal aortic aneurysm) 09/01/2019 04/25/2020 Overview: [...] as of this encounter (statuses as of 01/15/2024) Immunizations Name Administration Dates Next Due COVID-19 mRNA, LNP-s, No Pre serve, 2-Dose Series ([place]) 08/11/2020,07/21/2020 COVID-19, LNP-s, No Preserve , Dusty-sucrose, Ages 12+ (Pfizer) 02/05/2022,08/07/2021 COVID-19, MRNA-LNP, 23-24, P F, 30 MCG/0.3 mL, 12 YRS AND ABOVE, IM ([facility]) 05/13/2023 Covid-19, Mrna, Lnp-s, Pf, B ivalent, [...] Miscellaneous Notes * Telephone Encounter - Ty Alonso, RN - 01/15/2024 3:33 PM EDT Called patient s/p hydration + IV Zofran today. She states she is feeling better, her dizziness hassubsided and she has her appetite back. Reviewed that she can take a Compazine if she has nausea between now and 9PM tonight. Plan to follow up with her tomorrow for status check. documented in this encounter Plan of Treatment Upcoming Encounters Date Type Department Care Team (Late st Contact Info) Description 01/26/2024 10:00 AM EDT Laboratory Laboratory, [facility] 132 [facility] [place] [phone] [facility] 132 [facility] [place] [address] 01/27/2024 12:00 PM EDT Office Visit Hematology/Oncology [facility] [place] 200 [facility] [place] [phone] Abena Xiong CRNP [address] [place] [address] [place] [address] 01/27/2024 1:30 PM EDT Hem/Onc Treatment Hematology/Oncology Treatment, [place] 200 [facility] [place] [phone] Daria, Chair 11 Hem Onc [address] [place] [address] 02/02/2024 3:30 PM EDT Office Visit Nephrology [address] [place] [address] Valery Urena PA-C [address] [place] [address] 02/10/2024 1:00 PM EDT Office Visit Family Medicine [address] [place] [phone] Kahlil Mooney CRNP [address] [place] [address] [place] [address] 04/05/2024 1:20 PM EDT Office Visit Dermatology [address] [place] [address] Melanie Frank PA-C [address] [place] [address] [place] [address] 05/18/2024 2:30 PM EST Telemedicine Genetics [facility], [place] 1000 [facility] [place] [address] Brigitte Steve, [place] [address] [address] 07/15/2024 3:30 PM EST Office Visit Cardiology [address] [place] [address] Inge Garcia PA-C [address] [place] [address] 08/17/2024 1:40 PM EST Office Visit Family Medicine [address] [place] [phone] Jasson Denney MD [address] [place] [address] [place] [address] Scheduled Procedures Name Priority Associated Diagnoses Date/Ti me COLONOSCOPY FLEXIBLE PROXIMAL DIAGNOSTIC Recall Colon cancer (HCC) Health Maintenance Due Date Last Done Comments Alpha-1 Antitrypsin 1958 DTaP,Tdap,and Td Vaccines (1 - Tdap) 1959 Zoster Vaccines (1 of 2) 1990 *COPD SEVERITY VERIFIED BY PFT 01/02/2018 Depression Monitoring 08/07/2022 08/07/2021 COVID-19 Vaccine (2022- season) 2023 05/13/2023, 06/11/2022, 02/05/2022, Additional history exists Influenza Vaccine (FLU shot) (#1) 2024 03/20/2023, 04/04/2022, 03/19/2021, Additional history exists HbA1c 03/20/2024 03/20/2023, 1010/2021, 11/01/2020, Additional history exists GFR 07/14/2024 01/12/2024, 09/14, 07/17/2023, Additional history exists CKD PHOS USE SMARTSET 80887 09/29/202409/14, 09/01/2023, 07/25/2022, Additional history exists Albumin/Creatinine Ratio 09/30/202409/30/ 024, 06/30/2023, 07/25/2022, Additional history exists O2 ASSESSMENT COMPLETED IN PAST YEAR FOR COPD 11/24/2024 11/25/2023 CKD HGB USE SMARTSET 03303 01/11/202501/11, 01/12/2024, 12/01/2023, Additional history exists DXA Scan 05/31/2026 05/31/2019, [...] this encounter Medical Devices Implanted Type Area Wind Field Service Manager Device Identifier Shelf Expiration Date Model / Serial / Lot [place] Excluder Aaa Endoprothesis System-07/07/2019 Implanted:07/07/19 20 (Quantity not on file) Graft Description:Multiple implant s from system on same day [id number] Cordis Bx Velocity Cardiac Stent-06/02/2002 Implanted:06/02/20 02 (Quantity not on file) Stent CORDIS [place]EX[place] BX VELOCITY [id number] / / [id number] Cordis Bx Velocity Cardiac Stent-01/03/2003 Implanted:01/04/20 03 (Quantity not on file) Stent CORDIS [place] VELOCITY [id number] / / [id number] documented as of this encounter Advance Directives [...] patient or by statute hierarchy) Care Teams Diet Attendant Relationship Specialty Start Date End Date Jasson Denney MD [address] [place] [address] [place] [address] PCP - General Family Medicine 03/22/16 documented as of this encounter
--- OUTSIDE RECORDS SUMMARY | 2024-01-16 20:41 | External Medical Summary | Summary of Care ---
Author Name Unknown Organization [facility] Address [address] [place] [address] Phone [phone] Care Team Providers Care Jewelry Inspector Name Role Phone Jasson Denney MD Primary Care Provide r Reason for Visit * Reason Comments IV Therapy Hydration. * Episode Based Medications (Routine) - Authorized Specialty Diagnoses / Procedures Referred By Contac t Referred To Contact Diagnoses Overlapping malignant neoplasm of colon (HCC) Encounter for antineoplastic chemotherapy Malignant neoplasm of left breast in female, estrogen receptor positive, unspecified site of breast (HCC) Procedures HI LEUCOVORIN CALCIUM INJECTION HI PALONOSETRON HCL HI FLUOROURACIL INJECTION HI OXALIPLATIN Gay Lu MD [address] [place] [address] [place] [address] Anc Hem/Onc [address] [address] Referral ID Status Reason Start Date Expiration Date V isits Requested Visits Authorized [id number] Authorized 12/31/2023 05/16/[phone] Encounter Details Date Type Department Care Team (Latest Contact Info) Description 01/15/2024 12:00 PM EDT Hem/Onc Treatment Hematology/Oncolog y Treatment, [address] [phone] Daria, Chair 1 Hem Onc [address] [place] [address] Overlapping malignant neoplasm of colon (HCC)*; Encounter for antineoplastic chemotherapy; Malignant neoplasm of left breast in female, estrogen receptor positive, unspecified site of breast (HCC) Allergies Active Allergy Reactions Criticality Noted [...] mouth every night at bedtime. 07/12/2019 Active Phenylephrine-[place] Butter 0.25-88.44 % Rectal Suppository Administer [...] 24 Hour (Imdur)Indications: Coronary artery disease involving [place] coronary artery of [place] heart without angina pectoris TAKE 1 TABLET [...] 01/09/2024 Overlapping malignant neoplasm of colon 12/31/19 Iron deficiency anemia 08/12/2023 Encounter for antineoplastic chemotherapy 2022 Malignant neoplasm of left b reast in female, estrogen receptor positive 06/28/2022 Postherpetic neuralgia 06/28/2022 Hiatal hernia 08/07/2021 Schatzki's ring 08/07/2021 S/P angioplasty with stent 11/15/2020 Coronary artery disease invo lving [place] heart without angina pectoris 11/15/2020 Cardiac murmur [...] mRNA, LNP-s, No Pre serve, 2-Dose Series ([employer]) 08/11/2020,07/21/2020 COVID-19, LNP-s, No Preserve , Dusty-sucrose, Ages 12+ (Pfizer) 02/05/2022,08/07/2021 COVID-19, MRNA-LNP, 23-24, P F, 30 MCG/0.3 mL, 12 YRS AND ABOVE, IM ([facility]) 05/13/2023 Covid-19, Mrna, Lnp-s, Pf, B ivalent, 30 Mcg, IM, 12 yrs and above ([employer]) 06/11/2022 Pneumococcal Conjugate Vacc, 13 Valent (Prevnar) [...] Sign Reading Time Taken Comments Blood Pressure 105/57 01/15/2024 12:05 PM EDT Pulse 72 01/15/2024 12:05 PM EDT Temperature 36.4 C (97.5 F) 01/15/2024 12:05 PM E DT Respiratory Rate 18 01/15/2024 12:05 PM EDT Oxygen Saturation 93% 01/15/2024 12:05 PM EDT Inhaled Oxygen Concentration - - Weight - - Height - - Body Mass Index - - documented in this encounter Nursing Notes * Ana Byrnes RN - 01/15/2024 2:28 PM EDT Goals: Patient will remain free from injury. Possible barriers to meeting goals: Fall risk d/t ambulation with IV pole. Stability of the patient: Moderately unstable - medium risk of patient condition declining or worsening Summary regarding today's goals: Met: Patient remained free of injury. Patient tolerated infusion well. Discharged in stable condition. * Ana Byrnes RN - 01/15/2024 12:22 PM EDT Chair 12. Patient arrived for pump d/c and hydration. Patient states that she has been very dizzy, decreased appetite (has not been able to really eat or drink anything since day of treatment), and very tired. VAD flushed and positive blood return. Pump volume was 0ml, all medication was infused. Patient instructed on use of heat and massage functions where applicable. Patient shown how to operate the heat function of the chair and to alert nursing staff if the chair feels too warm. Patient instructed on the risk of potential hamilton while using the heat function. Safety and Risk for Injury Patient will remain free from injury. Ensure appropriate safety devices are available. Provide and maintain safe environment. documented in this encounter Plan of Treatment Upcoming Encounters Date Type Department Care Team (Late st Contact Info) Description 01/26/2024 10:00 AM EDT [facility] [phone] [facility] 132 [facility] [address] 01/27/2024 12:00 PM EDT Office Visit Hematology/Oncology [facility] 200 [facility] [place] [phone] Abena Xiong CRNP 400 [facility] [place] [address] 01/27/2024 1:30 PM EDT Hem/Onc Treatment Hematology[facility]Oncology Treatment, [place] 200 [facility] [phone] Daria, Chair 11 Hem Onc [address] [place] [address] 02/02/2024 3:30 PM EDT Office Visit Nephrology [address] [place] [address] Valery Urena PA-C 200 [facility] [address] 02/10/2024 1:00 PM EDT Office Visit Family Medicine [address] [place] [phone] Kahlil Mooney CRNP [address] [place] [address] [place] [address] 04/05/2024 1:20 PM EDT Office Visit Dermatology [address] [place] [address] Melanie Frank PA-C [address] [place] [address] [place] [address] 05/18/2024 2:30 PM EST Telemedicine Genetics [facility] [place] 1000 [facility] [place] [phone] Brigitte Steve, [place] 190 [facility] [address] [address] 07/15/2024 3:30 PM EST Office Visit Cardiology [address] [place] [address] Inge Garcia PA-C [address] [place] [address] 08/17/2024 1:40 PM EST Office Visit Family Medicine [address] [place] [phone] Jasson Denney MD [address] [place] [address] [place] [address] Scheduled Procedures Name Priority Associated Diagnoses Date/Ti [...] 03/19/2021, Additional history exists HbA1c 03/20/2024 03/20/2023, 10/0 10/2021, 11/01/2020, Additional history exists GFR 07/14/2024 01/12/2024, 09/14, 07/17/2023, Additional history exists CKD PHOS USE SMARTSET 98375 09/29/202409/14, 09/01/2023, 07/25/2022, Additional history exists Albumin/Creatinine Ratio 09/30/2024 024, 06/30/2023, 07/25/2022, Additional history exists O2 ASSESSMENT COMPLETED IN PAST YEAR FOR COPD 11/24/2024 11/25/2023 CKD HGB USE SMARTSET 42397 01/11/202501/11, 01/12/2024, 12/01/2023, Additional history exists DXA [...] this encounter Medical Devices Implanted Type Area Business System Manager Device Identifier Shelf Expiration Date Model / Serial / Lot [place] Excluder Aaa Endoprothesis System-07/07/2019 Implanted:07/07/19 20 (Quantity not on file) Graft Description:Multiple implant s from system on same day [id number] Cordis Bx Velocity Cardiac Stent-06/02/2002 Implanted:06/02/20 02 (Quantity not on file) Stent CORDIS [place]EX[place] BX VELOCITY [id number] / / [id number] Cordis Bx Velocity Cardiac Stent-01/03/2003 Implanted:01/04/20 03 (Quantity not on file) Stent CORDIS [place] VELOCITY [id number] / / [id number] documented as of this encounter Visit Diagnoses Diagnosis Overlapping malignant neoplasm of colon (HCC)- Primary Encounter for antineoplastic chemotherapy Malignant neoplasm of left breast in female, estrogen receptor positive, unspecified site of breast (HCC) documented in this encounter Administered Medications Active Administered Medications - up to 3 most recent administrations Medication Order MAR Action Action Date Dose Rate Site hEParin 100 UNIT/ML Lock Flush inj 500 Units 500 Units (5 mL), IV Lock, PRN Other, IV Flush, Starting on Radha 01/15/24 at 1230, Until Fri01/16/24 at 1229, For 24 hours, Do not flush if lock, PICC, or central line not in place; IV infusing or unable to flush. Given 01/15/2024 2:17 PM EDT 500 Units sodium chloride 0.9 % flush central line 10 mL 10 mL, IV Push, PRN Other, IV Flush, Starting on Radha 01/15/24 at 1230, Until Fri01/16/24 at 1229, For 24 hours, Do not flush if lock, PICC, or central line not in place; IV infusing or unable to flush. Given 01/15/2024 2:17 PM EDT 10 mL Inactive Administered Medications - up to 3 most recent administrations Medication Order MAR Action Action Date Dose Rate Site NSS infusion FOR HYDRATION Intravenous, at 500 mL/hr Administer over 2 Hours, ONCE PRN, 1 dose, Starting on Radha 01/15/24 at 1230, Until Radha 01/15/24 at 1417 Start Infusion 01/15/2024 12:20 PM EDT 1,000 mL 500 mL/hr ondansetron (Zofran) inj 8 mg 8 mg, IV Push, ONCE, On Radha 01/15/24 at 1315, For 1 dose Given 01/15/2024 12:41 PM EDT 8 mg documented in this encounter Advance Directives * [...] patient or by statute hierarchy) Care Teams Jewelry Inspector Relationship Specialty Start Date End Date Jasson Denney MD [address] [place] [address] [place] [phone] PCP - General Family Medicine 03/22/16 documented as of this encounter
--- OUTSIDE RECORDS SUMMARY | 2024-01-16 20:41 | External Medical Summary | Summary of Care ---
Author Name Unknown Organization [facility] Address [address] [facility] [address] Phone [phone] Care Team Providers Care Direct Support Professional Home Health Name Role Phone Jasson Denney MD Primary Care Provide r Reason for Visit * Reason Onset Date Comments Forms Request 01/13/2024 Encounter Details Date Type Department Care Team (Late st Contact Info) Description 01/13/2024 Telephone Hematology/Oncology [facility] 200 [facility] [place] [phone] Gay Lu MD 200 [place] [address] Forms Request Allergies Active Allergy Reactions Criticality Noted Date [...] mouth every night at bedtime. 07/12/2019 Active Phenylephrine-[place] Butter 0.25-88.44 % Rectal Suppository Administer into [...] 24 Hour (Imdur)Indications: Coronary artery disease involving [place] coronary artery [...] Tablet by mouth in the morning. Active Hospital, Clinic, or Other Facility Administered Medication Ordered Dose Route Frequency Start Date End Date Status Fluorouracil (5-Fu) 4,275 mg in NSS 138 mL infusion 4275 mg IV CONTINUOUS 01/12/2024 01/14/2024 Ended documented as of this encounter (statuses as [...] stent 11/15/2020 Coronary artery disease invo lving [place] heart without angina pectoris 11/15/2020 [...] mRNA, LNP-s, No Pre serve, 2-Dose Series ([place]) 08/11/2020,07/21/2020 COVID-19, LNP-s, No Preserve , Dusty-sucrose, Ages 12+ ([place]) 02/05/2022,08/07/2021 COVID-19, MRNA-LNP, 23-24, P F, 30 MCG/0.3 mL, 12 YRS AND ABOVE, IM ([facility]) 05/13/2023 Covid-19, Mrna, Lnp-s, Pf, B ivalent, 30 Mcg, IM, 12 yrs and above ([place]) 06/11/2022 Pneumococcal Conjugate Vacc, 13 Valent (Prevnar) [...] No 08/18/2023 Does the household have a [facility] hospit[facility] source of income? (Household - for ages [...] encounter Miscellaneous Notes * Telephone Encounter - Mitra Warner LPN - 01/15/2024 3:19 PM EDT Spoke with patient's son, Gus. Informed him the FMLA form is completed. He is requesting the form be mailed to his home address at: [address], [place] [address]. FMLA will be placed in outgoing mail once scanned into the chart. * Telephone Encounter - Mitra Warner LPN - 01/13/2024 12:49 PM EDT Form completed, awaiting MD signature. * Telephone Encounter - Leni Pal OSA - 01/13/2024 10:10 AM EDT Fmla paper need filled out by so son can help take care of her Forms placed in bin documented in this encounter Plan of Treatment Upcoming Encounters Date Type Department Care Team (Late st Contact Info) Description 01/26/2024 10:00 AM EDT Laboratory Laboratory, [facility] 132 [facility] [phone] [facility] 132 [facility] [place] [address] 01/27/2024 12:00 PM EDT Office Visit Hematology/Oncology [facility] [place] 200 [facility] [place] [phone] Abena Xiong CRNP 400 [facility] [place] [address] 01/27/2024 1:30 PM EDT Hem/Onc Treatment Hematology/Oncology Treatment, [place] 200 [facility] [place] [phone] Daria, Chair 11 Hem Onc [facility] 200 [facility] [place] [address] 02/02/2024 3:30 PM EDT Office Visit Nephrology [address] [place] [address] Valery Urena PA-C [address] [place] [address] 02/10/2024 1:00 PM EDT Office Visit Family [address] [place] [phone] Kahlil Mooney CRNP [address] [place] [address] [place] [address] 04/05/2024 1:20 PM EDT Office Visit Dermatology [address] [place] [address] Melanie Frank PA-C [address] [place] [address] [place] [address] 05/18/2024 2:30 PM EST Telemedicine Genetics [facility], [place] 1000 [facility] [place] [address] Brigitte Steve, [place] [address] [address] 07/15/2024 3:30 PM EST Office Visit Cardiology [address] [place] [address] Inge Garcia PA-C [address] [place] [address] 08/17/2024 1:40 PM EST Office Visit Family Medicine [address] [place] [phone] Jasson Denney MD [address] [place] [address] [place] [address] Scheduled Procedures Name Priority Associated Diagnoses Date/Ti [...] Additional history exists CKD PHOS USE SMARTSET 94546 09/29/202409/14, 09/01/2023, 07/25/2022, Additional history exists Albumin/Creatinine Ratio 09/30/202409/30/ 024, 06/30/2023, 07/25/2022, Additional history exists O2 ASSESSMENT COMPLETED IN PAST YEAR FOR COPD 11/24/2024 11/25/2023 CKD HGB USE SMARTSET 08333 01/11/202501/11, 01/12/2024, 12/01/2023, Additional history exists DXA [...] this encounter Medical Devices Implanted Type Area Hris Coordinator Device Identifier Shelf Expiration Date Model / Serial / Lot [place] Excluder Aaa Endoprothesis System-07/07/2019 Implanted:07/07/19 20 (Quantity not on file) Graft Description:Multiple implant s from system on same day [id number] Cordis Bx Velocity Cardiac Stent-06/02/2002 Implanted:06/02/20 02 (Quantity not on file) Stent CORDIS [place] BX VELOCITY [id number] / / [id number] Cordis Bx Velocity Cardiac Stent-01/03/2003 Implanted:01/04/20 03 (Quantity not on file) Stent CORDIS [place] VELOCITY [id number] / / [id number] documented as of this encounter Advance Directives [...] patient or by statute hierarchy) Care Teams Direct Support Professional Home Health Relationship Specialty Start Date End Date Jasson Denney MD [address] [place] [address] [place] [phone] PCP - General Family Medicine 03/22/16 documented as of this encounter
--- OUTSIDE RECORDS SUMMARY | 2024-01-16 20:42 | External Medical Summary | Summary of Care ---
Author Name Unknown Organization [facility] Address [address] [place] [address] Phone [phone] Care Team Providers Care Geographical Historian Name Role Phone Jasson Denney MD Primary Care Provide r Encounter Details Date Type Department Care Team (Late st Contact Info) Description 01/15/2024 Orders Only Hematology/Oncology, [address] [phone] Gay Lu MD [address] [place] [address] Allergies Active Allergy Reactions Criticality Noted Date [...] mouth every night at bedtime. 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 (Household - for ages [...] Description 01/26/2024 10:00 AM EDT Laboratory Laboratory, [facility] [address] [phone] Jose Forrester [address] [place] [address] 01/27/2024 12:00 PM EDT Office Visit Hematology/Oncology Edy Huff [place] [address] [place] [phone] Abena Xiong CRNP 400 [facility] [place] [address] 01/27/2024 1:30 PM EDT Hem/Onc Treatment Hematology/Oncology Treatment, [place] 200 [facility] [phone] Daria, Chair 11 Hem Onc [facility] 200 [facility] [place] [address] 02/02/2024 3:30 PM EDT Office Visit Nephrology [address] [place] [address] Valery Urena PA-C 200 [facility] [place] [address] 02/10/2024 1:00 PM EDT Office Visit Family Medicine [address] [phone] Kahlil Mooney CRNP [address] [place] [address] [place]ran [address] 04/05/2024 1:20 PM EDT Office Visit Dermatology [address] [place] [address] Melanie Frank PA-C [address] [place] [address] [place] [address] 05/18/2024 2:30 PM EST Telemedicine Genetics HemOnc, [facility] 1000 [facility] [place] [address] Brigitte Steve, [place] [address] [address] 07/15/2024 3:30 PM EST Office Visit Cardiology [address] [place] [address] Inge Garcia PA-C [address] [place] [address] 08/17/2024 1:40 PM EST Office Visit Family Medicine [address] [place] [phone] Jasson Denney MD [address] [place] [address] [place] [address] Scheduled Procedures Name Priority Associated Diagnoses Date/Ti [...] Additional history exists CKD PHOS USE SMARTSET 55203 09/29/202409/14, 09/01/2023, 07/25/2022, Additional history exists Albumin/Creatinine Ratio 09/30/202409/30/2 024, 06/30/2023, 07/25/2022, Additional history exists O2 ASSESSMENT COMPLETED IN PAST YEAR FOR COPD 11/24/2024 11/25/2023 CKD HGB USE SMARTSET 31991 01/11/202501/11, 01/12/2024, 12/01/2023, Additional history exists DXA [...] this encounter Medical Devices Implanted Type Area Trick Rodeo Rider Device Identifier Shelf Expiration Date Model / Serial / Lot Burket Excluder Aaa Endoprothesis System-07/07/2019 Implanted:07/07/19 20 (Quantity not on file) Graft Description:Multiple implant s from system on same day [id number] Cordis Bx Velocity Cardiac Stent-06/02/2002 Implanted:06/02/20 02 (Quantity not on file) Stent CORDIS LEXA BX VELOCITY [id number] / / [id number] Cordis Bx Velocity Cardiac Stent-01/03/2003 Implanted:01/04/20 03 (Quantity not on file) Stent CORDIS LEXA VELOCITY [id number] / / [id number] documented as of this encounter Advance Directives [...] patient or by statute hierarchy) Care Teams Geographical Historian Relationship Specialty Start Date End Date Jasson Denney MD [address] [place] [address] [place] [address] PCP - General Family Medicine 03/22/16 documented as of this encounter
--- OUTSIDE RECORDS SUMMARY | 2024-01-16 20:42 | External Medical Summary ---
Author Name Unknown Address Unknown Organization K01:[facility] [place] [address] [place] [address] Laboratory Report Ordering Provider Test Date Status MARIAN DAVIS 01/12/2024 09:54:28 Final Observation Date Value Abnormality Reference (Units) Status Hepatitis B virus surface Ab [Units/volume] in Serum or Plasma by Immunoassay 01/12/2024 09:54:28 4.7 (mIU/mL) Final Hepatitis B virus surface Ab [Presence] in Serum by Immunoassay 01/12/2024 09:54:28 Negative Final HEPATITIS B SURFACE ANTIBODY, INTERPRETATION 01/12/2024 09:54:28 NOT immune to Hepatitis B Virus Final POSITIVE: >=11.5 mIU/mL
INDETERMINATE: 8.5-<11.5 mIU/mL
NEGATIVE: <8.5 mIU/mL Performing Location [facility] [place] [address] [place] [address]
--- OUTSIDE RECORDS SUMMARY | 2024-01-16 20:42 | External Medical Summary | Summary of Care ---
Author Name Unknown Organization [facility] Address [address] [place] [address] Phone [phone] Care Team Providers Care Mine Car Mechanic Name Role Phone Jasson Denney MD Primary Care Provide r Reason for Visit * Reason Onset Date Comments Advice 01/15/2024 Encounter Details Date Type Department Care Team (Late st Contact Info) Description 01/15/2024 Telephone Hematology/Oncology [facility] [place] [address] [place] [facility] [place] [address] Services, Scheduling [address] [place] [address] Advice Allergies Active Allergy Reactions Criticality Noted [...] mouth every night at bedtime. 07/12/2019 Active Phenylephrine-[place] Butter 0.25-88.44 % Rectal Suppository Administer into [...] 24 Hour (Imdur)Indications: Coronary artery disease involving [place] coronary artery of [place] heart without angina pectoris TAKE 1 TABLET [...] stent 11/15/2020 Coronary artery disease invo lving [place] heart without angina pectoris 11/15/2020 Cardiac murmur [...] mRNA, LNP-s, No Pre serve, 2-Dose Series ([employer]) 08/11/2020,07/21/2020 COVID-19, LNP-s, No Preserve , Dusty-sucrose, Ages 12+ ([employer]) 02/05/2022,08/07/2021 COVID-19, MRNA-LNP, 23-24, P F, 30 [...] Telephone Encounter - Leni Salazar OSA - 01/15/2024 10:40 AM EDT Apt updated * Telephone Encounter - Ty Alonso RN - 01/15/2024 10:[address] Lu TT- give 2L hydration today and 8mg IV zofran. Dr. Lu- Please place orders Scheduling- please change patients appointment today from 15 min to 2 hours and add "hydration/zofran" to treatment note. Thank you. * Telephone Encounter - Ty Alonso RN - 01/15/2024 9:47 AM EDT Pt calling stating that she has severe fatigue, nausea with vomiting, and loose stools. States she took this last night before bed as she was having dry heaves. She states that most of the time she is having diarrhea. Advised she has not taken any immodium. Feeling overall very dizzy and weak. Pt coming today for pump disconnect. I advised her to take a Prochlorperazine now and try to eat something light like crackers/toast. Also advised patient to start Immodium, 1 tablet to see if this helps with diarrhea, advised she may take up to 4/day. TT sent to Dr. Lu informing him of this asking to place standing PRN order for hydration with pump disconnect days. Does he want any IV anti-emetics with pump disconnect? * Telephone Encounter - Dominique Magallanes OSA - 01/15/2024 9:40 AM EDT What is the reason for call? Dizziness, Nausea, vomiting, fatigue and loose stools What Clinic is the patient trying to reach? Hem/Onc Call was transferred to the office. documented in this encounter Plan of Treatment Upcoming Encounters Date Type Department Care Team (Late st Contact Info) Description 01/15/2024 12:00 PM EDT Hem/Onc Treatment Hematology/Oncology Treatment, [place] [address] [place] [address] Daria, Chair 1 Hem Onc [address] 200 [facility] [place] [address] 01/26/2024 10:00 AM EDT Laboratory Laboratory, [facility] 132 [facility] [place] [phone] Jose Forrester Joseph 132 [facility] [place] [address] 01/27/2024 12:00 PM EDT Office Visit Hematology/Oncology [facility] [place] 200 [facility] [place] [phone] Abena Xiong CRNP [address] [place] [address] 01/27/2024 1:30 PM EDT Hem/Onc Treatment Hematology/Oncology Treatment, [place] [facility] [phone] Daria, Chair 11 Hem Onc [address] [place] [address] 02/02/2024 3:30 PM EDT Office Visit Nephrology [address] [place] [address] Valery Urena PA-C 200 [facility] [place] [address] 02/10/2024 1:00 PM EDT Office Visit Family Medicine [address] [place] [phone] Kahlil Mooney CRNP [address] [place] [address] [place] [address] 04/05/2024 1:20 PM EDT Office Visit Dermatology [address] [place] [address] Melanie Frank PA-C [address] [place] [address] [place] [address] 05/18/2024 2:30 PM EST Telemedicine Genetics HemOn, [facility] 1000 [facility] [place] [address] Power Birgitte Gallegosleen, [place] [address] [place] [address] 07/15/2024 3:30 PM EST Office Visit Cardiology [address] [place] [address] Inge Garcia PA-C [address] [place] [address] 08/17/2024 1:40 PM EST Office Visit Family Medicine [address] [place] [phone] Jasson Denney MD [address] [place] [address] [place] [address] Scheduled Procedures Name Priority Associated Diagnoses Date/Ti [...] Additional history exists CKD PHOS USE SMARTSET 35866 09/29/202409/14, 09/01/2023, 07/25/2022, Additional history exists Albumin/Creatinine Ratio 09/30/2024 024, 06/30/2023, 07/25/2022, Additional history exists O2 ASSESSMENT COMPLETED IN PAST YEAR FOR COPD 11/24/2024 11/25/2023 CKD HGB USE SMARTSET 44578 01/11/202501/11, 01/12/2024, 12/01/2023, Additional history exists DXA [...] this encounter Medical Devices Implanted Type Area Escalator Operator Device Identifier Shelf Expiration Date Model / Serial / Lot [place] Excluder Aaa Endoprothesis System-07/07/2019 Implanted:07/07/19 20 (Quantity not on file) Graft Description:Multiple implant s from system on same day [id number] Cordis Bx Velocity Cardiac Stent-06/02/2002 Implanted:06/02/20 02 (Quantity not on file) Stent CORDIS LEXA BX VELOCITY [id number] / / [id number] Cordis Bx Velocity Cardiac Stent-01/03/2003 Implanted:01/04/20 03 (Quantity not on file) Stent CORDIS LEXA VELOCITY [id number] / / [id number] documented as of this encounter Advance Directives [...] patient or by statute hierarchy) Care Teams Mine Car Mechanic Relationship Specialty Start Date End Date Jasson Denney MD [address] [place] [address] [place] [address] PCP - General Family Medicine 03/22/16 documented as of this encounter
--- OUTSIDE RECORDS SUMMARY | 2024-01-16 20:42 | External Medical Summary | Summary of Care ---
Author Name Unknown Organization [facility] Address [address] [facility] [address] Phone [phone] Care Team Providers Care Amphibian Crewmember Name Role Phone Jasson Denney MD Primary Care Provide r Encounter Details Date Type Department Care Team (Late st Contact Info) Description 01/15/2024 Orders Only Hematology/Oncology [facility] [place] [address] [facility] [place] [phone] Gay Lu MD [address] [facility] [place] [address] Malignant neoplasm of colon, unspecified part of colon (HCC)* Allergies Active Allergy Reactions Criticality Noted Date [...] mouth every night at bedtime. 07/12/2019 Active Phenylephrine-[place] Butter 0.25-88.44 % Rectal Suppository Administer into [...] artery disease involving [place] coronary artery of [place] heart without angina pectoris TAKE 1 TABLET [...] stent 11/15/2020 Coronary artery disease invo lving [place] heart without angina pectoris 11/15/2020 Cardiac murmur [...] mRNA, LNP-s, No Pre serve, 2-Dose Series ([employer]) 08/11/2020,07/21/2020 COVID-19, LNP-s, No Preserve , Dusty-sucrose, [...] 12:00 PM EDT Hem/Onc Treatment Hematology/Oncology Treatment, [place] [address] [place] [address] Daria, Chair 1 Hem Onc [facility] [address] 01/26/2024 10:00 AM EDT Laboratory Laboratory, [facility] 132 [facility] [place]ARC[place] [phone] ForresterJose [facility] 132 [facility] [place]AR[place] [address] 01/27/2024 12:00 PM EDT Office Visit Hematology/Oncology [facility] [place] [address] [facility] [place] [phone] Abena Xiong CRNP 400 [facility] [place] [address] 01/27/2024 1:30 PM EDT Hem/Onc Treatment Hematology/Oncology Treatment, [place] 200 [facility] [phone] Daria, Chair 11 Hem Onc [address] [place] [address] 02/02/2024 3:30 PM EDT Office Visit Nephrology [address] [place] [address] Valery Urena PA-C [address] [facility] [place] [address] 02/10/2024 1:00 PM EDT Office Visit Family Medicine [address] [place] [phone] Kahlil Mooney CRNP [address] [place] [address] [place] [address] 04/05/2024 1:20 PM EDT Office Visit Dermatology [address] [place] [address] Melanie Frank PA-C [address] [place] [address] [place] [address] 05/18/2024 2:30 PM EST Telemedicine Genetics HemOnc, [facility] 1000 [facility] [place] [address] Power Brigitte Gallegosleen, [place] [address] [address] [address] 07/15/2024 3:30 PM EST Office Visit Cardiology [address] [place] [address] Igne Garcia PA-C [address] [place] [address] 08/17/2024 1:40 PM EST Office Visit Family Medicine [address] [place] [phone] Jasson Denney MD [address] [place] [address] [place] [address] Scheduled Procedures Name Priority Associated Diagnoses Date/Ti [...] 03/20/2023, 10/2021, 11/01/2020, Additional history exists GFR 07/14/2024 01/12/2024, 09/14, 07/17/2023, Additional history exists CKD PHOS USE SMARTSET 54619 09/29/202409/14, 09/01/2023, 07/25/2022, Additional history exists Albumin/Creatinine Ratio 09/30/2024 024, 06/30/2023, 07/25/2022, Additional history exists O2 ASSESSMENT COMPLETED IN PAST YEAR FOR COPD 11/24/2024 11/25/2023 CKD HGB USE SMARTSET 03085 01/11/202501/11, 01/12/2024, 12/01/2023, Additional history exists DXA [...] this encounter Medical Devices Implanted Type Area Emergency Crew Supervisor Device Identifier Shelf Expiration Date Model / Serial / Lot [place] Excluder Aaa Endoprothesis System-07/07/2019 Implanted:07/07/19 20 (Quantity not on file) Graft Description:Multiple implant s from system on same day [id number] Cordis Bx Velocity Cardiac Stent-06/02/2002 Implanted:06/02/20 02 (Quantity not on file) Stent CORDIS LEXA BX VELOCITY [id number] / / [id number] Cordis Bx Velocity Cardiac Stent-01/03/2003 Implanted:01/04/20 03 (Quantity not on file) Stent CORDIS LEXA VELOCITY [id number] / / [id number] documented as of this encounter Visit Diagnoses Diagnosis Malignant neoplasm of colon, unspecified part of colon (HCC)- Primary documented in this encounter Advance Directives * [...] patient or by statute hierarchy) Care Teams Amphibian Crewmember Relationship Specialty Start Date End Date Jasson Denney MD [address] [place] [address] [place] [address] PCP - General Family Medicine 03/22/16 documented as of this encounter
--- OUTSIDE RECORDS SUMMARY | 2024-01-16 20:42 | External Medical Summary ---
Author Name Unknown Address Unknown Organization K09:[facility] [place] [address] Laboratory Report Ordering Provider Test Date Status MARIAN DAVIS 01/12/2024 09:54:28 Final Observation Date Value Abnormality Reference (Units ) Status Magnesium 01/12/2024 09:54:28 1.7 1.5-2.6 (m g/dL) Final Performing Location [facility] [place] [address]
--- OUTSIDE RECORDS SUMMARY | 2024-01-16 20:42 | External Medical Summary | Summary of Care ---
Author Name Unknown Organization [facility] Address [address] [facility] [address] Phone [phone] Care Team Providers Care Engineering Program Manager Name Role Phone Jasson Denney MD Primary Care Provide r Encounter Details Date Type Department Care Team (Late st Contact Info) Description 01/15/2024 Orders Only Hematology/Oncology [facility] [place] 200 [facility] [place] [phone] Gay Lu MD 200 [facility] [place] [address] Allergies Active Allergy Reactions Criticality Noted Date [...] mouth every night at bedtime. 07/12/2019 Active Phenylephrine-[place] Butter 0.25-88.44 % Rectal Suppository Administer [...] mRNA, LNP-s, No Pre serve, 2-Dose Series ([employer]) 08/11/2020,07/21/2020 COVID-19, LNP-s, No Preserve , Dusty-sucrose, Ages 12+ ([employer]) 02/05/2022,08/07/2021 COVID-19, MRNA-LNP, 23-24, P F, 30 MCG/0.3 mL, 12 YRS AND ABOVE, IM ([employer]-Comirnaty) 05/13/2023 Covid-19, Mrna, Lnp-s, Pf, B ivalent, [...] No 08/18/2023 Does the household have a [facility] source of income? (Household - for ages [...] 12:00 PM EDT Hem/Onc Treatment Hematology/Oncology Treatment, [place] [address] [place] [address] Daria, Chair 1 Hem Onc [place] [address] [place] [address] 01/26/2024 10:00 AM EDT Laboratory Laboratory, [facility] [address] [place] [phone] Usama Jose Joseph [facility] [place] [address] 01/27/2024 12:00 PM EDT Office Visit Hematology/Oncology [facility] [place] 200 [facility] [place] [phone] Abena Xiong CRNP 400 [facility] [place] [address] 01/27/2024 1:30 PM EDT Hem/Onc Treatment Hematology/Oncology Treatment, [place] 200 [facility] [place] [phone] Daria, Chair 11 Hem Onc [facility] 200 [facility] [place] [address] 02/02/2024 3:30 PM EDT Office Visit Nephrology [address] [place] [address] Valery Urena PA-C 200 [facility] [place] [address] 02/10/2024 1:00 PM EDT Office Visit Family Medicine [address] [place] [phone] Kahlil Mooney CRNP [address] [place] [address] [place]ran [address] 04/05/2024 1:20 PM EDT Office Visit Dermatology [address] [place] [address] Melanie Frank PA-C [address] [place] [address] [place]ran [address] 05/18/2024 2:30 PM EST Telemedicine Genetics HemOn, [facility] 1000 [facility] [place] [address] SteveBrigitte, [place] [address] [address] 07/15/2024 3:30 PM EST Office Visit Cardiology [address] [place] [address] Inge Garcia PA-C [address] [place] [address] 08/17/2024 1:40 PM EST Office Visit Family Medicine [address] [place] [phone] Jasson Denney MD [address] [place] [address] [place] [address] Scheduled Procedures Name Priority Associated Diagnoses Date/Ti [...] Additional history exists CKD PHOS USE SMARTSET 06440 09/29/202409/14, 09/01/2023, 07/25/2022, Additional history exists Albumin/Creatinine Ratio 09/30/20242 024, 06/30/2023, 07/25/2022, Additional history exists O2 ASSESSMENT COMPLETED IN PAST YEAR FOR COPD 11/24/2024 11/25/2023 CKD HGB USE SMARTSET 63912 01/11/202501/11, 01/12/2024, 12/01/2023, Additional history exists DXA [...] this encounter Medical Devices Implanted Type Area Barrel Tester And Drainer Device Identifier Shelf Expiration Date Model / Serial / Lot [place] Excluder Aaa Endoprothesis System-07/07/2019 Implanted:07/07/19 20 (Quantity not on file) Graft Description:Multiple implant s from system on same day [id number] Cordis Bx Velocity Cardiac Stent-06/02/2002 Implanted:06/02/20 02 (Quantity not on file) Stent CORDIS LEXA BX VELOCITY [id number] / / [id number] Cordis Bx Velocity Cardiac Stent-01/03/2003 Implanted:01/04/20 03 (Quantity not on file) Stent CORDIS LEXA VELOCITY [id number] / / [id number] documented as of this encounter Advance Directives [...] patient or by statute hierarchy) Care Teams Engineering Program Manager Relationship Specialty Start Date End Date Jasson Denney MD [address] [place] [address] [place] Ramachandran [phone] PCP - General Family Medicine 03/22/16 documented as of this encounter
--- OUTSIDE RECORDS SUMMARY | 2024-01-16 20:42 | External Medical Summary ---
Author Name Unknown Address Unknown Organization K01:[facility] [address] [place] [address] Laboratory Report Ordering Provider Test Date Status MARIAN DAVIS 01/12/2024 09:54:28 Final Observation Date Value Abnormality Reference (Units ) Status Hep B surface Ag 01/12/2024 09:54:28 Negative Neg ative Final Performing Location [facility] [address] [place] [address]
--- OUTSIDE RECORDS SUMMARY | 2024-01-16 20:42 | External Medical Summary | Summary of Care ---
Author Name Unknown Organization [facility] Address [address] [facility] [address] Phone [phone] Care Team Providers Care Bag Mender Name Role Phone Jasson Denney MD Primary Care Provide r Reason for Visit * Reason Comments Outpatient Testing Encounter Details Date Type Department Care Team (Late st Contact Info) Description 01/12/2024 9:50 AM EDT Laboratory Laboratory [facility] [place] [address] [place] [phone] [place], Lab Scenery [address] [place] [address] Malignant neoplasm of cecum (HCC); Encounter for screening for other viral diseases Allergies Active Allergy Reactions Criticality Noted Date Comments Adhesive Tape 04/11/2006 Latex 06/06/2022 Other reaction(s): rash/itchy documented as of this encounter (statuses as of 01/12/2024) Medications Medication Sig Dispensed Refills Start Date [...] mouth every night at bedtime. 07/12/2019 Active Phenylephrine-[place]arter Butter 0.25-88.44 % Rectal Suppository Administer into [...] 24 Hour (Imdur)Indications: Coronary artery disease involving [place] coronary artery of [place] heart without angina pectoris TAKE 1 [...] as of this encounter (statuses as of 01/12/2024) Active Problems Problem Noted Date Diagnosed Date S/P right hemicolectomy 01/09/2024 Overlapping malignant neoplasm of colon 12/31/19 24 Iron deficiency anemia 08/12/2023 Encounter for antineoplastic chemotherapy 2022 Malignant neoplasm of left b reast in female, estrogen receptor positive 06/28/2022 Postherpetic neuralgia 06/28/2022 Hiatal hernia 08/07/2021 Schatzki's ring 08/07/2021 S/P angioplasty with stent 11/15/2020 Coronary artery disease invo lving [place] heart without angina pectoris 11/15/2020 Cardiac [...] as of this encounter (statuses as of 01/12/2024) Resolved Problems Problem Noted Date Diagnosed Date [...] as of this encounter (statuses as of 01/12/2024) Immunizations Name Administration Dates Next Due COVID-19 mRNA, LNP-s, No Pre serve, 2-Dose Series ([employer]) 08/11/2020,07/21/2020 COVID-19, LNP-s, No Preserve , Dusty-sucrose, Ages 12+ (Pfizer) 02/05/2022,08/07/2021 COVID-19, MRNA-LNP, 23-24, P F, 30 MCG/0.3 mL, 12 YRS AND ABOVE, IM ([facility] 05/13/2023 Covid-19, Mrna, Lnp-s, Pf, B [...] Care Team (Late st Contact Info) Description 01/12/2024 12:45 PM EDT Imaging Radiology [facility] [address] [facility], [place] [address] [facility] [place] [address] 01/13/2024 10:15 AM EDT Hem/Onc Treatment Hematology/Oncology Treatment, [place] [address] [place] [phone] Daria, Chair 5 Hem Onc Scenery [address] [place] [address] 02/10/2024 1:00 PM EDT Office Visit Family [address] [place] [phone] Kahlil Mooney CRNP [address] [place] [address] [place] [address] 04/05/2024 1:20 PM EDT Office Visit Dermatology [address] [place] [address] Melanie Frank PA-C [address] [place] [address] [place] [address] 05/18/2024 2:30 PM EST Telemedicine Genetics HemOnc, [facility] [address] [facility] [place] [address] Brigitte Steve, [place] [address] [address] 07/15/2024 3:30 PM EST Office Visit Cardiology [address] [place] [address] Inge Garcia PA-C [address] [place] [address] 07/23/2024 3:30 PM EST Office Visit Nephrology [address] [place] [address] Valery Urena PA-C [address] [place] [address] 08/17/2024 1:40 PM EST Office Visit Family Medicine [address] [place] [phone] Jasson Denney MD [address] [place] [address] [place] [address] Pending Results Name Type Priority Associated Diagnoses Date /Time CBC WITH WBC DIFFERENTIAL Lab STAT Malignant neoplasm of cecum (HCC) 01/12/2024 9:54 AM EDT COMPREHENSIVE METABOLIC PANEL Lab STAT Malignant neoplasm of cecum (HCC) 01/12/2024 9:54 AM EDT MAGNESIUM Lab STAT Malignant neoplasm of cecum (HCC) 01/12/2024 9:54 AM EDT HEPATITIS B SURFACE ANTIBODY Lab STAT Malignant neoplasm of cecum (HCC) 01/12/2024 9:54 AM EDT HEPATITIS B SURFACE ANTIGEN Lab STAT Malignant neoplasm of cecum (HCC) Encounter for screening for other viral diseases 01/12/2024 9:54 AM EDT HEPATITIS B CORE ANTIBODIES IGG AND IGM Lab STAT Malignant neoplasm of cecum (HCC) Encounter for screening for other viral diseases 01/12/2024 9:54 AM EDT CBC Lab STAT Malignant neoplasm of cecum (HCC) 01/12/2024 9:54 AM EDT DIFFERENTIAL, AUTOMATED Lab STAT Malignant neoplasm of cecum (HCC) 01/12/2024 9:54 AM EDT Scheduled Procedures Name Priority Associated [...] Additional history exists CKD PHOS USE SMARTSET 95276 09/29/202409/14, 09/01/2023, 07/25/2022, Additional history exists Albumin/Creatinine Ratio 09/30/2024 024, 06/30/2023, 07/25/2022, Additional history exists O2 ASSESSMENT COMPLETED IN PAST YEAR FOR COPD 11/24/2024 11/25/2023 CKD HGB USE SMARTSET 31597 11/30/202411/30, 12/01/2023, 10/13/2023, Additional history exists DXA [...] this encounter Medical Devices Implanted Type Area Rubber Flap Tuber Machine Operator Device Identifier Shelf Expiration Date Model / Serial / Lot Montara Excluder Aaa Endoprothesis System-07/07/2019 Implanted:07/07/19 20 (Quantity not on file) Graft Description:Multiple implant s from system on same day [id number] Cordis Bx Velocity Cardiac Stent-06/02/2002 Implanted:06/02/20 02 (Quantity not on file) Stent CORDIS LEXA BX VELOCITY [id number] / / [id number] Cordis Bx Velocity Cardiac Stent-01/03/2003 Implanted:01/04/20 03 (Quantity not on file) Stent CORDIS LEXA VELOCITY [id number] / / [id number] documented as of this encounter Visit Diagnoses Diagnosis Malignant neoplasm of cecum (HCC) Malignant neoplasm of cecum Encounter for screening for other viral diseases documented in this encounter Advance Directives * [...] patient or by statute hierarchy) Care Teams Bag Mender Relationship Specialty Start Date End Date Jasson Denney MD [address] [place] [address] [place] [phone] PCP - General Family Medicine 03/22/16 documented as of this encounter
--- OUTSIDE RECORDS SUMMARY | 2024-01-16 20:42 | External Medical Summary | Summary of Care ---
Author Name Unknown Organization [facility] Address [address] [place] [facility] [place] [address] Phone [phone] Care Team Providers Care Concrete Bucket Loader Name Role Phone Jasson Denney MD Primary Care Provide r Reason for Visit * Reason Comments Chemotherapy FOLFOX * Episode Based Medications (Routine) - Authorized Specialty Diagnoses / Procedures Referred By Contchristopher t Referred To Contact Diagnoses Overlapping malignant neoplasm of colon (HCC) Encounter for antineoplastic chemotherapy Malignant neoplasm of left breast in female, estrogen receptor positive, unspecified site of breast (HCC) Procedures LA LEUCOVORIN CALCIUM INJECTION LA PALONOSETRON HCL LA FLUOROURACIL INJECTION LA OXALIPLATIN Gay Lu MD [address] [place] [address] [place] [address] Anc Hem/Onc [address] [address] Referral ID Status Reason Start Date Expiration Date V isits Requested Visits Authorized [id number] Authorized 12/31/2023 05/16/[phone] Encounter Details Date Type Department Care Team (Latest Contact Info) Description 01/13/2024 10:15 AM EDT Hem/Onc Treatment Hematology/Oncolog y Treatment, [address] [phone] Daria Chair 5 Hem Onc [address] [place] [address] Overlapping malignant neoplasm of colon (HCC)*; Encounter for antineoplastic chemotherapy; Malignant neoplasm of left breast in female, estrogen receptor positive, unspecified site of breast (HCC) Allergies Active Allergy Reactions Criticality Noted Date Comments Adhesive Tape 04/11/2006 Latex 06/06/2022 Other reaction(s): rash/itchy documented as of this encounter (statuses as of 01/13/2024) Medications Medication Sig Dispensed Refills Start Date [...] mouth every night at bedtime. 07/12/2019 Active Phenylephrine-[place] Butter 0.25-88.44 % Rectal Suppository Administer into [...] 24 Hour (Imdur)Indications: Coronary artery disease involving [place] coronary artery of [place] heart without angina pectoris TAKE 1 TABLET [...] as of this encounter (statuses as of 01/13/2024) Active Problems Problem Noted Date Diagnosed Date S/P right hemicolectomy 01/09/2024 Overlapping malignant neoplasm of colon 12/31/19 Iron deficiency anemia 08/12/2023 Encounter for antineoplastic chemotherapy 2022 Malignant neoplasm of left b reast in female, estrogen receptor positive 06/28/2022 Postherpetic neuralgia 06/28/2022 Hiatal hernia 08/07/2021 Schatzki's ring 08/07/2021 S/P angioplasty with stent 11/15/2020 Coronary artery disease invo lving [place] heart without angina pectoris 11/15/2020 Cardiac murmur [...] as of this encounter (statuses as of 01/13/2024) Resolved Problems Problem Noted Date Diagnosed Date [...] as of this encounter (statuses as of 01/13/2024) Immunizations Name Administration Dates Next Due COVID-19 mRNA, LNP-s, No Pre serve, 2-Dose Series ([employer]) 08/11/2020,07/21/2020 COVID-19, LNP-s, No Preserve , Dusty-sucrose, Ages 12+ ([employer]) 02/05/2022,08/07/2021 COVID-19, MRNA-LNP, 23-24, P F, 30 MCG/0.3 mL, 12 YRS AND ABOVE, IM ([employer]) 05/13/2023 Covid-19, Mrna, Lnp-s, Pf, B ivalent, 30 Mcg, IM, 12 yrs and above ([employer]) 06/11/2022 Pneumococcal Conjugate Vacc, 13 Valent (Prevnar) [...] Sign Reading Time Taken Comments Blood Pressure 89/51 01/13/2024 11:21 AM EDT Pulse 59 01/13/2024 11:21 AM EDT Temperature 36.4 C (97.5 F) 01/13/2024 11:20 AM E DT Respiratory Rate 16 01/13/2024 11:20 AM EDT Oxygen Saturation 95% 01/13/2024 11:20 AM EDT Inhaled Oxygen Concentration - - Weight 66 kg (145 lb 6.4 oz) 01/13/2024 11:20 AM EDT Height - - Body Mass Index 22.77 11/25/2023 11:17 AM EDT documented in this encounter Nursing Notes * Vivi Roche RN - 01/13/2024 3:46 PM EDT Pt c/o mild nausea with 5 minutes left of infusion time remaining. Pt denied pain, SOB, and other symptoms. Reviewed symptoms with Dr. Lu. Pt stated she hadn't eaten much today, and attributed thenausea to needing to eat. Pt completed treatment without further issues. VAD flushed with positive blood return. 5FU IVP administered; CADD pump connected/unclamped to initiate 5FU home infusion. Reviewed home infusion contact info and use of antiemetics; pt and son verbalized understanding. Goals: Pt will remain free from injury. Possible barriers to meeting goals: ambulation with IV pole Stability of the patient: Moderately stable - low risk of patient condition declining or worsening Summary regarding today's goals: Met: Pt Pt remained free from injury during treatment today. Discharged in stable condition. * Vivi Roche RN - 01/13/2024 11:21 AM EDT CHAIR 2 Chemotherapy/Immunotherapy agents: FOLFOX (leucovorin, 5-FU, & Oxaliplatin) Consent for chemotherapy drug treatment complete, dated, and signed? yes, date - 12/31/23 Treatment lab parameters met? Yes Has treatment weight changed > than 10%? No Treatment preauthorized? Yes VITALS Filed Vitals: 01/13/24 1120 01/13/24 1121 BP: 91/53 89/51 Pulse: 60 59 Resp: 16 Temp: 36.4 C (97.5 F) SpO2: 95% Weight: 66 kg (145 lb 6.4 oz) Urine protein: N/A Patient education completed for treatment? Yes Blood transfusion consent signed and complete? NA Return appointment scheduled? Yes Patient had provider visit today? No - If no provider visit must complete Pretreatment Assessment PRE-TREATMENT ASSESSMENT: NEURO: fatigue:stable CV/RESP: denies symptoms GI/: denies symptoms OTHER: denies any additional symptoms PAIN: 0 VAD accessed; D5W infusing. Safety and Risk for Injury Patient will remain free from injury. Ensure appropriate safety devices are available. Provide and maintain safe environment. Functional Status: Functional status at today's visit: Restricted in physically strenuous activity but ambulatory and able to carry out work on a light orsedentary nature, e.g. light house work, office work The drug name, dose, infusion volume, rate and route of administration, expiration date and time, appearance and physical integrity of the drug and rate set on the pump and sequencing of drug administration (as applicable) were verified by me and second sign-in RN. Patient was assessed for symptoms or adverse side effects during treatment. Patient Education: Patient instructed on use of heat and massage functions where applicable. Patient shown how to operate the heat function of the chair and to alert nursing staff if the chair feels too warm. Patient instructed on the risk of potential hamilton while using the heat function. documented in this encounter Plan of Treatment Upcoming Encounters Date Type Department Care Team (Late st Contact Info) Description 01/15/2024 12:00 PM EDT Immunization/Injection Hematology[facility] [place] [facility] [phone] Daria, Chair 1 Hem Onc Scenery [address] [place] [address] 01/26/2024 10:00 AM EDT Laboratory [facility] [address] [facility] [phone] [facility] [address] [facility] [address] 01/27/2024 12:00 PM EDT Office Visit Hematology/Oncology [facility] [place] [address] [facility] [place] [phone] Abena Xiong CRNP [address] [place] [address] [place] [address] 01/27/2024 1:30 PM EDT Hem/Onc Treatment [address]ematology/[address], [address] [phone] Daria, Chair 11 Hem Onc Scenery [address] [facility] [place] [address] 02/10/2024 1:00 PM EDT Office Visit Family Medicine [address] [place] [phone] Kahlil Mooney CRNP [address] [place] [address] [place] [address] 04/05/2024 1:20 PM EDT Office Visit Dermatology [address] [place] [address] Melanie Frank PA-C [address] [place] [address] [place] [address] 05/18/2024 2:30 PM EST Telemedicine Genetics HemOn, [facility] [address] [facility] [place] [address] [place], [place] [address] [address] 07/15/2024 3:30 PM EST Office Visit Cardiology [address] [place] [address] Inge Garcia PA-C [address] [place] [address] 07/23/2024 3:30 PM EST Office Visit Nephrology [address] [place] [address] Valery Urena PA-C [address] [place] [address] 08/17/2024 1:40 PM EST Office Visit Family Medicine [address] [place] [phone] Jasson Denney MD [address] [place] [address] [place] [address] Scheduled Procedures Name Priority Associated Diagnoses Date/Ti me COLONOSCOPY FLEXIBLE PROXIMAL DIAGNOSTIC Recall Colon cancer (HCC) Health Maintenance Due Date Last Done Comments Alpha-1 Antitrypsin 1958 DTaP,Tdap,and Td Vaccines (1 - Tdap) 1959 Zoster Vaccines (1 of 2) 1959 *COPD SEVERITY VERIFIED BY PFT 01/02/2018 Depression Monitoring 08/07/2022 08/07/2021 COVID-19 Vaccine (2022- season) 2023 05/13/2023, 06/11/2022, 02/05/2022, Additional history exists Influenza Vaccine (FLU shot) (#1) 2024 03/20/2023, 04/04/2022, 03/19/2021, Additional history exists HbA1c 03/20/2024 03/20/2023, 10/2021, 11/01/2020, Additional history exists GFR 07/14/2024 01/12/2024, 09/14, 07/17/2023, Additional history exists CKD PHOS USE SMARTSET 28700 09/29/202409/14, 09/01/2023, 07/25/2022, Additional history exists Albumin/Creatinine Ratio 09/30/2024 024, 06/30/2023, 07/25/2022, Additional history exists O2 ASSESSMENT COMPLETED IN PAST YEAR FOR COPD 11/24/2024 11/25/2023 CKD HGB USE SMARTSET 64466 01/11/202501/11, 01/12/2024, 12/01/2023, Additional history exists DXA [...] this encounter Medical Devices Implanted Type Area Audiovisual Production Specialist Device Identifier Shelf Expiration Date Model / Serial / Lot Magnolia Excluder Aaa Endoprothesis System-07/07/2019 Implanted:07/07/19 20 (Quantity not on file) Graft Description:Multiple implant s from system on same day [id number] Cordis Bx Velocity Cardiac Stent-06/02/2002 Implanted:06/02/20 02 (Quantity not on file) Stent CORDIS LEXA BX VELOCITY [id number] / / [id number] Cordis Bx Velocity Cardiac Stent-01/03/2003 Implanted:01/04/20 03 (Quantity not on file) Stent CORDIS LEXA VELOCITY [id number] / / [id number] documented as of this encounter Visit Diagnoses Diagnosis Overlapping malignant neoplasm of colon (HCC)- Primary Encounter for antineoplastic chemotherapy Malignant neoplasm of left breast in female, estrogen receptor positive, unspecified site of breast (HCC) documented in this encounter Administered Medications Active Administered Medications - up to 3 most recent administrations Medication Order MAR Action Action Date Dose Rate Site D5W IV solution Intravenous, at 50 mL/hr, PRN, Starting on Fri01/13/24 at 0830, Until Discontinued Start Infusion 01/13/2024 11:06 AM EDT 50 mL/hr diphenhydrAMINE (Benadryl) inj 50 mg 50 mg, IV Push, ONCE PRN Other, Hypersensitivity Reaction, Starting on Fri01/13/24 at 1105, Until Fri01/14/24 at 1104, For 24 hours EPINEPHrine 1 MG/ML inj 0.3 mg 0.3 mg, Intramuscular, ONCE PRN Other, Hypersensitivity Reaction or Anaphylaxis, Starting on Fri01/13/24 at 1105, Until Fri01/14/24 at 1104, For 24 hours hEParin 100 UNIT/ML Lock Flush inj 500 Units 500 Units (5 mL), IV Lock, PRN Other, IV Flush, Starting on Fri01/13/24 at 1105, Until Fri01/14/24 at 1104, For 24 hours, Do not flush if lock, PICC, or central line not in place; IV infusing or unable to flush. Hydrocortisone Sod Suc (PF) (Solu-Cortef) inj 100 mg 100 mg, IV Push, ONCE PRN Other, Hypersensitivity Reaction, Starting on Fri01/13/24 at 1105, Until Fri01/14/24 at 1104, For 24 hours LORAzepam (Ativan) tab 0.5 mg 0.5 mg, Oral, ONCE PRN Anxiety, Nausea, Starting on Fri01/13/24 at 0830, Until Discontinued oxygen GAS Inhalation, OXYGEN, First dose on Fri01/13/24 at 1145, Until Discontinued, Device/Managed by: Low Flow Device, [...] Push, PRN Other, IV Flush, Starting on Fri01/13/24 at 1105, Until Fri01/14/24 at 1104, For 24 hours, Do not flush if lock, PICC, or central line not in place; IV infusing or unable to flush. Given 01/13/2024 1:52 PM EDT 10 mL Inactive Administered Medications - up to 3 most recent administrations Medication Order MAR Action Action Date Dose Rate Site dexAMETHasone (Decadron) tab 12 mg 12 mg, Oral, ONCE, On Fri01/13/24 at 1145, For 1 dose Given 01/13/2024 11:14 AM EDT 12 mg Fluorouracil (5-Fu) 4,275 mg for Home Infusion 4,275 mg (rounded from 4,272 mg = 2,400 mg/m2 1.78 m2 Treatment Plan BSA from Recorded weight), Intravenous, Administer over 46 Hours, Home Infusion Pharmacy to specify base solution and volume., ONCE, 1 dose, On Fri01/13/24 at 1315 Start Infusion 01/13/2024 1:57 PM EDT 4,275 mg 3 mL/hr Fluorouracil (5-Fu) inj 700 mg 700 mg (rounded from 712 mg = 400 mg/m2 1.78 m2 Treatment Plan BSA from Recorded weight), IV Push, ONCE, 1 dose, On Fri01/13/24 at 1300 Given 01/13/2024 1:53 PM EDT 700 mg leucovorin calcium 700 mg in D5W 250 mL INFUSION 700 mg (rounded from 712 mg = 400 mg/m2 1.78 m2 Treatment Plan BSA from Recorded weight), IV Piggyback, ONCE, 1 dose, On Fri01/13/24 at 1145, Administer over 120 Minutes, Before 5-FU Start Infusion 01/13/2024 11:38 AM EDT 700 mg 127.5 mL/hr Oxaliplatin (Eloxatin) 150 mg in D5W 500 mL infusion 150 mg (rounded from 151.3 mg = 85 mg/m2 1.78 m2 Treatment Plan BSA from Recorded weight), IV Piggyback, ONCE, 1 dose, On Fri01/13/24 at 1145, Administer over 120 Minutes, Flush with D5W only! Start Infusion 01/13/2024 11:41 AM EDT 150 mg 255 mL/hr Palonosetron (Aloxi) inj SOLN 0.25 mg 0.25 mg, IV Push, ONCE, On Fri01/13/24 at 1145, For 1 dose, Restricted per [facility] antiemetic guidelines Given 01/13/2024 11:14 AM EDT 0.25 mg documented in this encounter Advance Directives [...] patient or by statute hierarchy) Care Teams Concrete Bucket Loader Relationship Specialty Start Date End Date Jasson Denney MD [address] [place] [address] [place] [phone] PCP - General Family Medicine 03/22/16 documented as of this encounter
--- OUTSIDE RECORDS SUMMARY | 2024-01-16 20:42 | External Medical Summary ---
Author Name Unknown Address Unknown Organization K01:[facility] - [address] [place] [address] Laboratory Report Ordering Provider Test Date Status MARIAN DAVIS 01/12/2024 09:54:28 Final Observation Date Value Abnormality Reference (Units ) Status Hepatitis B virus core Ab [Presence] in Serum 01/12/2024 09:54:28 Negative Negative Final Performing Location [facility] - [address] [place] [address]
--- OUTSIDE RECORDS SUMMARY | 2024-01-16 20:42 | External Medical Summary | Summary of Care ---
Author Name Unknown Organization [facility] [address] [facility] [address] Phone [phone] Care Team Providers Care Solar Resource Assessor Name Role Phone Jasson Denney MD Primary Care Provide r Reason for Visit * Reason Onset Date Comments Forms Request 01/13/2024 Encounter Details Date Type Department Care Team (Late st Contact Info) Description 01/13/2024 Telephone Hematology/Oncology [facility] 200 [facility] [place] [phone] Gay Lu MD 200 [place] [address] Forms Request Allergies Active Allergy Reactions Criticality [...] mouth every night at bedtime. 07/12/2019 Active Phenylephrine-[place] Butter 0.25-88.44 % Rectal Suppository Administer [...] 24 Hour (Imdur)Indications: Coronary artery disease involving [place]ona coronary artery of [...] infusion 4275 mg IV CONTINUOUS 01/12/2024 01/14/2024 Active documented as of this encounter (statuses [...] stent 11/15/2020 Coronary artery disease invo lving ramona heart without angina pectoris 11/15/2020 Cardiac [...] mRNA, LNP-s, No Pre serve, 2-Dose Series (Ovuline) 08/11/2020,07/21/2020 COVID-19, LNP-s, No Preserve , Dusty-sucrose, Ages 12+ (Ovuline) 02/05/2022,08/07/2021 COVID-19, MRNA-LNP, 23-24, P F, 30 MCG/0.3 mL, 12 YRS AND ABOVE, IM ([facility]) 05/13/2023 Covid-19, Mrna, Lnp-s, Pf, B ivalent, 30 Mcg, IM, 12 yrs and above (Ovuline) 06/11/2022 Pneumococcal Conjugate Vacc, 13 Valent (Prevnar) [...] No 08/18/2023 Does the household have a [facility] source of income? (Household - for [...] Care Team (Late st Contact Info) Description 02/10/2024 1:00 PM EDT Office Visit Family Medicine [address] [place] [phone] Kahlil Mooney CRNP [address] [place] [address] [place] [address] 04/05/2024 1:20 PM EDT Office Visit Dermatology [address] [place] [address] Melanie Frank PA-C [address] [place] [address] [place] [address] 05/18/2024 2:30 PM EST Telemedicine Genetics [facility] [place] 1000 [facility] [place] [address] Brigitte Steve, [place] [address] [place] [address] 07/15/2024 3:30 PM EST Office Visit Cardiology [address] [place] [address] Inge Garcia PA-C [address] [place] [address] 07/23/2024 3:30 PM EST Office Visit Nephrology [address] [place] [address] Valery Urena PA-C [address] [place] [address] 08/17/2024 1:40 PM EST Office Visit Family Medicine [address] [place] [phone] Jasson Denney MD [address] [place] [address] [place] [address] Scheduled Procedures Name Priority Associated Diagnoses Date/Ti [...] Additional history exists CKD PHOS USE SMARTSET 95990 09/29/202409/14, 09/01/2023, 07/25/2022, Additional history exists Albumin/Creatinine Ratio 09/30/20242 024, 06/30/2023, 07/25/2022, Additional history exists O2 ASSESSMENT COMPLETED IN PAST YEAR FOR COPD 11/24/2024 11/25/2023 CKD HGB USE SMARTSET 99939 01/11/202501/11, 01/12/2024, 12/01/2023, Additional history exists DXA [...] this encounter Medical Devices Implanted Type Area Bilingual Trainer Device Identifier Shelf Expiration Date Model / Serial / Lot [place] Excluder Aaa Endoprothesis System-07/07/2019 Implanted:07/07/19 20 (Quantity not on file) Graft Description:Multiple implant s from system on same day [id number] Cordis Bx Velocity Cardiac Stent-06/02/2002 Implanted:06/02/20 02 (Quantity not on file) Stent CORDIS LEXA BX VELOCITY [id number] / / [id number] Cordis Bx Velocity Cardiac Stent-01/03/2003 Implanted:01/04/20 03 (Quantity not on file) Stent CORDIS LEXA VELOCITY [id number] / / [id number] documented as of this encounter Advance Directives [...] patient or by statute hierarchy) Care Teams Solar Resource Assessor Relationship Specialty Start Date End Date Jasson Denney MD [address] [place] [address] [place] [address] PCP - General Family Medicine 03/22/16 documented as of this encounter
--- OUTSIDE RECORDS SUMMARY | 2024-01-16 20:42 | External Medical Summary ---
Author Name Unknown Address Unknown Organization [facility] [place] [address] Laboratory Report Ordering Provider Test Date Status MARIAN DAVIS 01/12/2024 09:54:28 Final Observation Date Value Abnormality Reference (Units ) Status BUN 01/12/2024 09:54:28 18 6-20 (mg/dL) Final Creatinine 01/12/2024 09:54:28 1.3 Above high normal 0.5-1.0 (mg/dL) Final Glomerular filtration rate/1.73 sq M.predicted [Volume Rate/Area] in Serum, Plasma or Blood by Creatinine-based formula (CKD-EPI) 01/12/2024 09:54:28 42 Below low normal >=60 (mL/min) Final eGFR is calculated based on the CKD-EPI 2020 equation. Sodium 01/12/2024 09:54:28 141 135-146 (m mol/L) Final Potassium 01/12/2024 09:54:28 4.5 3.5-5.1 (m mol/L) Final Cl 01/12/2024 09:54:28 107 98-107 (mm ol/L) Final CO2 01/12/2024 09:54:28 23 22-32 (mmo l/L) Final Anion gap 01/12/2024 09:54:28 11 7-15 (mmol /L) Final Glucose 01/12/2024 09:54:28 108 70-120 (mg /dL) Final Albumin 01/12/2024 09:54:28 3.7 Below low normal 3.8 -5.0 (g/dL) Final AST (Aspartate aminotransferase) 01/12/2024 09:54:28 14 10-35 (U/L) Fin al Alk Phos 01/12/2024 09:54:28 81 35-130 (U/ L) Final Bilirubin, Total 01/12/2024 09:54:28 0.3 <=1 .2 (mg/dL) Final Calcium 01/12/2024 09:54:28 9.7 8.4-10.2 ( mg/dL) Final Protein 01/12/2024 09:54:28 6.5 6.0-8.3 (g /dL) Final ALT (Alanine aminotransferase) 01/12/2024 09:54:28 9 Below low normal 10-35 (U/L) Final Performing Location [facility] [address] [place] [address]
--- OUTSIDE RECORDS SUMMARY | 2024-01-16 20:42 | External Medical Summary ---
Author Name Unknown Address Unknown Organization [facility] [place] [address] Laboratory Report Ordering Provider Test Date Status MARIAN DAVIS 01/12/2024 09:54:28 Final Observation Date Value Abnormality Reference (Units ) Status SYNC LEUKOCYTES IN BLOOD BY AUTOMATED COUNT 01/12/2024 09:54:28 6.10 4.00-10.80 (K/uL) Final Segs 01/12/2024 09:54:28 69.5 40.0-75.0 (%) Final Lymphs % 01/12/2024 09:54:28 13.9 Below low normal 18.0-42.0 (%) Final Monos 01/12/2024 09:54:28 9.2 1.0-11.0 (%) Final Eosinophils 01/12/2024 09:54:28 6.7 Above high normal 0.0-6.0 (%) Final Basos 01/12/2024 09:54:28 0.7 0.0-2.0 (%) Final Absolute Segs 01/12/2024 09:54:28 4.24 1.80-7.70 (K/uL) Final Lymphs, absolute 01/12/2024 09:54:28 0.85 Below low normal 1.00-4.80 (K/ul) Final Monos, Abs 01/12/2024 09:54:28 0.56 0.00-1.10 (K/uL) Final Eos, Abs 01/12/2024 09:54:28 0.41 0.00-0.70 (K/uL) Final Basos, Abs 01/12/2024 09:54:28 0.04 0.00-0.20 (K/uL) Final Performing Location [facility] [place] [address]
--- OUTSIDE RECORDS SUMMARY | 2024-01-16 20:42 | External Medical Summary | Summary of Care ---
Author Name Unknown Organization [facility] Address [address] [place] [address] Phone [phone] Care Team Providers Care Case Sealer Name Role Phone Jasson Denney MD Primary Care Provide r Encounter Details Date Type Department Care Team (Late st Contact Info) Description 01/12/2024 Orders Only [facility] RX [address] [place] [address] Gay Lu MD [address] [place] [address] Allergies Active Allergy Reactions Criticality Noted Date [...] mouth every night at bedtime. 07/12/2019 Active Phenylephrine-[place] Butter 0.25-88.44 % Rectal Suppository Administer into [...] 24 Hour (Imdur)Indications: Coronary artery disease involving [place] coronary artery of [place] heart without angina pectoris TAKE 1 TABLET [...] stent 11/15/2020 Coronary artery disease invo lving [place] heart without angina pectoris 11/15/2020 Cardiac murmur [...] LNP-s, No Pre serve, 2-Dose Series ([place]) 08/11/2020,07/21/2020 COVID-19, LNP-s, No Preserve , Dusty-sucrose, Ages 12+ ([place]) 02/05/2022,08/07/2021 COVID-19, MRNA-LNP, 23-24, P F, 30 MCG/0.3 mL, 12 YRS AND ABOVE, IM ([facility]) 05/13/2023 Covid-19, Mrna, Lnp-s, Pf, B ivalent, 30 Mcg, IM, 12 yrs and above ([place]) 06/11/2022 Pneumococcal Conjugate Vacc, 13 Valent (Prevnar) [...] AM EDT Hem/Onc Treatment Hematology/Oncolog y Treatment, [place] [address] [place] [phone] Daria, Chair 5 Hem Onc Sc[facility] [address] [place] [address] Overlapping malignant neoplasm of colon (HCC)*; Encounter for antineoplastic chemotherapy; Malignant neoplasm of left breast in female, estrogen receptor positive, unspecified site of breast (HCC) 02/10/2024 1:00 PM EDT Office Visit Family Medicine [address] [place] [phone] Kahlil Mooney CRNP [address] [place] [address] [place] [address] 04/05/2024 1:20 PM EDT Office Visit Dermatology [address] [place] [address] Melanie Frank PA-C [address] [place] [address] [place] [address] 05/18/2024 2:30 PM EST Telemedicine Genetics [facility], [place] 1000 [facility] [place] [phone] Brigitte Steve, [place] [address] [address] 07/15/2024 3:30 PM EST Office Visit Cardiology [address] [place] [address] Inge Garcia PA-C [address] [place] [address] 07/23/2024 3:30 PM EST Office Visit Nephrology [address] [place] [address] Valery Urena PA-C 200 [facility] [address] 08/17/2024 1:40 PM EST Office Visit Family Medicine [address] [place] [phone] Jasson Denney MD [address] [place] [address] [place] [address] Scheduled Procedures Name Priority [...] Additional history exists CKD PHOS USE SMARTSET 94978 09/29/202409/14, 09/01/2023, 07/25/2022, Additional history exists Albumin/Creatinine Ratio 09/30/202409/30/ 024, 06/30/2023, 07/25/2022, Additional history exists O2 ASSESSMENT COMPLETED IN PAST YEAR FOR COPD 11/24/2024 11/25/2023 CKD HGB USE SMARTSET 56807 01/11/202501/11, 01/12/2024, 12/01/2023, Additional history exists DXA [...] this encounter Medical Devices Implanted Type Area Co Supervisor Grounds And Landscape Device Identifier Shelf Expiration Date Model / Serial / Lot [place] Excluder Aaa Endoprothesis System-07/07/2019 Implanted:07/07/19 20 (Quantity not on file) Graft Description:Multiple implant s from system on same day [id number] Cordis Bx Velocity Cardiac Stent-06/02/2002 Implanted:06/02/20 02 (Quantity not on file) Stent CORDIS LEXA BX VELOCITY [id number] / / [id number] Cordis Bx Velocity Cardiac Stent-01/03/2003 Implanted:01/04/20 03 (Quantity not on file) Stent CORDIS LEXA VELOCITY [id number] / / [id number] documented as of this encounter Advance Directives [...] patient or by statute hierarchy) Care Teams Case Sealer Relationship Specialty Start Date End Date Jasson Denney MD [address] [place] [address] [place] [address] PCP - General Family Medicine 03/22/16 documented as of this encounter
--- OUTSIDE RECORDS SUMMARY | 2024-01-16 20:42 | External Medical Summary ---
Author Name Unknown Address Unknown Organization [facility] [place] [address] Laboratory Report Ordering Provider Test Date Status MARIAN DAVIS 01/12/2024 09:54:28 Final Observation Date Value Abnormality Reference (Units ) Status WBC, Total 01/12/2024 09:54:28 6.10 4.00-10.8 0 (K/uL) Final RBC 01/12/2024 09:54:28 3.38 3.85-5.15 (M/uL) Final Hemoglobin 01/12/2024 09:54:28 9.2 Below low normal 12 .0-15.3 (g/dL) Final HCT 01/12/2024 09:54:28 29.8 Below low normal 36. 0-45.2 (%) Final MCV 01/12/2024 09:54:28 88.2 81.5-97.5 (fL) Final MCH 01/12/2024 09:54:28 27.2 27.0-34.0 (pg) Final MCHC 01/12/2024 09:54:28 30.9 32.0-36.0 (g/dL) Final RDW 01/12/2024 09:54:28 18.3 11.5-15.5 (%) Final Platelets 01/12/2024 09:54:28 310 140-400 (K /uL) Final MPV 01/12/2024 09:54:28 9.0 6.6-11.1 ( fL) Final Performing Location [facility] [place] [address]
--- OUTSIDE RECORDS SUMMARY | 2024-01-16 20:42 | External Medical Summary ---
Author Name Unknown Address Unknown Organization [facility] [place] [address] Laboratory Report Ordering Provider Test Date Status MARIAN DAVIS 01/12/2024 09:54:28 Final Observation Date Value Abnormality Reference (Units ) Status Nucleated erythrocytes/100 leukocytes [Ratio] in Blood by Automated count 01/12/2024 09:54:28 Final Performing Location [facility] [place] [address]
--- OUTSIDE RECORDS SUMMARY | 2024-01-16 20:42 | External Medical Summary | Summary of Care ---
Author Name Unknown Organization [facility] Address [address] [facility] [address] Phone [phone] Care Team Providers Care Professor Of Economics Name Role Phone Jasson Denney MD Primary Care Provide r Reason for Visit * Reason Onset Date Comments Forms Request 01/13/2024 Encounter Details Date Type Department Care Team (Late st Contact Info) Description 01/13/2024 Telephone Hematology/Oncology [facility] 200 [facility] [place] [phone] Gay Lu MD 200 [place] [address] Forms Request Allergies Active Allergy Reactions Criticality [...] mouth every night at bedtime. 07/12/2019 Active Phenylephrine-[place] Butter 0.25-88.44 % Rectal Suppository Administer into [...] 24 Hour (Imdur)Indications: Coronary artery disease involving [place] coronary artery of [place] heart without angina pectoris TAKE 1 [...] stent 11/15/2020 Coronary artery disease invo lving [place] heart without angina pectoris 11/15/2020 Cardiac [...] mRNA, LNP-s, No Pre serve, 2-Dose Series (Zadego) 08/11/2020,07/21/2020 COVID-19, LNP-s, No Preserve , Dusty-sucrose, Ages 12+ ([facility]) 02/05/2022,08/07/2021 COVID-19, MRNA-LNP, 23-24, P F, 30 MCG/0.3 mL, 12 YRS AND ABOVE, IM ([facility] 05/13/2023 Covid-19, Mrna, Lnp-s, Pf, B ivalent, 30 Mcg, IM, 12 yrs and above ([facility]) 06/11/2022 Pneumococcal Conjugate Vacc, 13 Valent (Prevnar) [...] No 08/18/2023 Does the household have a [facility] source of income? (Household - for [...] Miscellaneous Notes * Telephone Encounter - Leni Pal OSA - 01/13/2024 10:10 AM EDT Fmla paper need filled out by so son can help take care of her Forms placed in bin documented in this encounter Plan of Treatment Upcoming Encounters Date Type Department Care Team (Late st Contact Info) Description 02/10/2024 1:00 PM EDT Office Visit Family Medicine [address] [place] [phone] Kahlil Mooney CRNP [address] [place] [address] [place] [address] 04/05/2024 1:20 PM EDT Office Visit Dermatology [address] [place] [address] Melanie Frank PA-C [address] [place] [address] [place] [address] 05/18/2024 2:30 PM EST Telemedicine Genetics [facility] [place] 1000 [facility] [place] [address] Brigitte Steve, [place] [address] [address] 07/15/2024 3:30 PM EST Office Visit Cardiology [address] [place] [address] Inge Garcia PA-C [address] [place] [address] 07/23/2024 3:30 PM EST Office Visit Nephrology [address] [place] [address] Valery Urena PA-C [address] [place] [address] 08/17/2024 1:40 PM EST Office Visit Family Medicine [address] [place] [phone] Jasson Denney MD [address] [place] [address] [place] [address] Scheduled Procedures Name Priority [...] 100 10/2021, 11/01/2020, Additional history exists GFR 07/14/2024 01/12/2024, 09/14, 07/17/2023, Additional history exists CKD PHOS USE SMARTSET 61977 09/29/202409/14, 09/01/2023, 07/25/2022, Additional history exists Albumin/Creatinine Ratio 09/30/202409/30/2 024, 06/30/2023, 07/25/2022, Additional history exists O2 ASSESSMENT COMPLETED IN PAST YEAR FOR COPD 11/24/2024 11/25/2023 CKD HGB USE SMARTSET 55591 01/11/202501/11, 01/12/2024, 12/01/2023, Additional history exists DXA [...] this encounter Medical Devices Implanted Type Area Wedger Machine Device Identifier Shelf Expiration Date Model / Serial / Lot [place] Excluder Aaa Endoprothesis System-07/07/2019 Implanted:07/07/19 20 (Quantity not on file) Graft Description:Multiple implant s from system on same day [id number] Cordis Bx Velocity Cardiac Stent-06/02/2002 Implanted:06/02/20 02 (Quantity not on file) Stent CORDIS LEXA BX VELOCITY [id number] / / [id number] Cordis Bx Velocity Cardiac Stent-01/03/2003 Implanted:01/04/20 03 (Quantity not on file) Stent CORDIS LEXA VELOCITY [id number] / / [id number] documented as of this encounter Advance Directives [...] patient or by statute hierarchy) Care Teams Professor Of Economics Relationship Specialty Start Date End Date Jasson Denney MD [address] [place] [address] [place] [address] PCP - General Family Medicine 03/22/16 documented as of this encounter
--- OUTSIDE RECORDS SUMMARY | 2024-01-16 20:43 | External Medical Summary | Summary of Care ---
Author Name Unknown Organization [facility] Address [address] [facility] [address] Phone [phone] Care Team Providers Care Film Sound Engineer Name Role Phone Jasson Denney MD Primary Care Provide r Reason for Visit * Reason Onset Date Comments Hospital Follow-Up Hospital Follow-Up 01/09/2024 Encounter Details Date Type Department Care Team (Late st Contact Info) Description 01/09/2024 2:20 PM EDT Office Visit Family Medicine [address] [phone] Jasson Denney MD [address] [place] [address] [place] [id number] Hospital discharge follow-up*; Overlapping malignant neoplasm of colon (HCC); S/P right hemicolectomy; HTN, goal below 130/80; Moderate episode of recurrent major depressive disorder (HCC); Chronic kidney disease, stage 3b (HCC); Prediabetes; COPD, mild ([facility]) Allergies Active Allergy Reactions Criticality Noted Date Comments Adhesive Tape 04/11/2006 Latex 06/06/2022 Other reaction(s): rash/itchy documented as of this encounter (statuses as of 01/09/2024) Medications Medication Sig Dispensed Refills Start Date [...] mouth every night at bedtime. 07/12/2019 Active Phenylephrine-Martinez oa Butter 0.25-88.44 % [...] 07/21/2023 Active Ezetimibe 10 MG Oral Tablet (Zetia)Indication [...] 24 Hour (Imdur)Indication s:Coronary artery disease involving cantwell coronary artery of cantwell heart without angina pectoris TAKE 1 TABLET BY MOUTH EVERY DAY IN THE MORNING 90 Tablet 1 11/13/2023 Active Enalapril Maleate 10 MG Oral Tablet (Vasotec) TAKE 2 TABLETS BY MOUTH EVERY DAY 180 Tablet 1 12/11/2023 Active Ondansetron HCl 8 MG Oral Tablet (Zofran)Indicatio ns:Malignant neoplasm of cecum (HCC) Take 1 Tablet by mouth every 8 hours as needed for Nausea. 30 Tablet 3 01/01/2024 Active Prochlorperazine Maleate 10 MG Oral Tablet (Compazine)Indica tions:Malignant neoplasm of cecum (HCC) Take 1 Tablet by mouth every 6 hours as needed for Nausea. 30 Tablet 3 01/01/2024 Active Lidocaine-Priloca ine 2.5-2.5 % External Cream (Emla)Indications :Malignant neoplasm of cecum (HCC) APPLY TO SKIN [...] Tablet by mouth in the morning. Active cyclobenzaprine (FLEXERIL) 10 MG TabletIndications :Spasm of back muscles Take 1 Tab by mouth 3 times a day as needed for Muscle spasms. 30 Tab 1 09/30/2017 4 Discontinue d(Medicatio n List Clean Up) Neomycin Sulfate 500 MG Oral Tablet (Neomycin Sulfate) Take 2 tabs at 4:00 p.m., 2 tabs at 5:00 p.m., and 2 tabs at 11:00 p.m. the day prior to surgery 6 Tablet 12/11/2023 4 Discontinue d(Medicatio n List Clean Up) metroNIDAZOLE 500 MG Oral Tablet (Flagyl) Take 2 tabs at 4:00 p.m., 2 tabs at 5:00 p.m., and 2 tabs at 11:00 p.m. the day prior to surgery 6 Tablet 12/11/2023 4 Discontinue d(Medicatio n List Clean Up) documented as of this encounter (statuses as of 01/09/2024) Active Problems Problem Noted Date Diagnosed Date S/P right hemicolectomy 01/09/2024 Overlapping malignant neoplasm of colon 12/31/19 24 Iron deficiency anemia 08/12/2023 Encounter for antineoplastic chemotherapy 2022 Malignant neoplasm of left b reast in female, estrogen receptor positive 06/28/2022 Postherpetic neuralgia 06/28/2022 Hiatal hernia 08/07/2021 Schatzki's ring 08/07/2021 S/P angioplasty with stent 11/15/2020 Coronary artery disease invo lving cantwell heart without angina pectoris 11/15/2020 Cardiac murmur [...] as of this encounter (statuses as of 01/09/2024) Resolved Problems Problem Noted Date Diagnosed Date [...] as of this encounter (statuses as of 01/09/2024) Immunizations Name Administration Dates Next Due COVID-19 mRNA, LNP-s, No Pre serve, 2-Dose Series (Yellow Pages) 08/11/2020,07/21/2020 COVID-19, LNP-s, No Preserve , Dusty-sucrose, Ages 12+ (Pfizer) 02/05/2022,08/07/2021 COVID-19, MRNA-LNP, 23-24, P F, 30 MCG/0.3 mL, 12 YRS AND ABOVE, IM (Ticket Evolution-Comirnaty) 05/13/2023 Covid-19, Mrna, Lnp-s, Pf, B ivalent, 30 Mcg, IM, 12 yrs and above (Yellow Pages) 06/11/2022 Pneumococcal Conjugate Vacc, 13 Valent (Prevnar) [...] 18 years and over) Not on file 03/04/202 4 Are you (or your family) stefan eless [...] Sign Reading Time Taken Comments Blood Pressure 99/53 01/09/2024 2:24 PM EDT Pulse 84 01/09/2024 2:24 PM EDT Temperature 36 C (96.8 F) 01/09/2024 2:24 PM EDT Respiratory Rate 16 01/09/2024 2:24 PM EDT Oxygen Saturation 92% 01/09/2024 2:24 PM EDT Inhaled Oxygen Concentration - - Weight 66.4 kg (146 lb 6 oz) 01/09/2024 2:24 PM EDT Height - - Body Mass Index 22.93 11/25/2023 11:17 AM EDT documented in this encounter Patient Instructions * Patient Instructions* Jasson Denney MD - 01/09/2024 2:33 PM EDT Taking Medicine Safely Medicine is given to help treat or prevent illness. But if you don't take it correctly, it might not help. It might even harm you. Your doctor or pharmacist can help you learn the right way to take your medicine. Listed below are some tips to help you take medicine safely. Safety Tips Have a routine for taking each medicine. Make it part of something you do each day, such as brushing your teeth or eating a meal. When you go to the hospital or your doctor's office, bring all your current medicines in their original boxes or bottles. If you can't do that, bring an up-to-date list of your medicines. Do not stop taking a prescription medicine unless your doctor tells you to. Doing so could make your condition worse. Do not share medicines. Let your doctor and pharmacist know of any allergies you have. Taking prescription medicines with alcohol, street drugs, herbs, supplements, or even some aoob-lao-jexnbik medicines can be harmful. Talk to your doctor or pharmacist before using any of these things while taking a prescription medicine. When filling your prescriptions, try using the same pharmacy for all your medicines. If not, let the pharmacist know what medicines you are already on. Keep medicines out of the reach of children and pets. Do not use medicine that has or that doesn't look or smell right. Get rid of it properly. To find out the right way to get rid of medicine: Call your [facility] or [facility]'s household trash and recycling service and ask if a drug take-back program is available in your community. Call your local pharmacy and ask the right way to get rid of the medicine. Go to http://www.fda.gov/ForConsumers/ConsumerUpdates/btk492362 to learn how to get rid of medicines safely. Using Generic Medicines Medicines have brand names and generic (chemical) names. When a medicine is first made, it is sold only under its brand name. Later, it can be made and sold as a generic. Generic medicines cost less than brand-name medicines and most work just as well. Most people can use the generic medicine instead of the brand-name medicine, unless their doctor says otherwise. 9333-6543 [facility], [address] [place] [address]. All rights reserved. This information is not intended as a substitute for professional medical care. Always follow your healthcare professional's instructions. Coping with Your Diagnosis of a Chronic Health Condition If you have a chronic health condition, you have a problem that may not go away over time. Heart disease, asthma, arthritis, and diabetes are just a few of the chronic conditions that exist. Right now, these conditions have no known cure. But you can take an active role in managing your health. Coping with Your Diagnosis If you've just learned about your health condition, you may be angry, depressed, or afraid. Or you might feel relieved just to know what's wrong. Even if you've known about your health problem for a while, adjusting to it can be hard. But learning about your condition can help you cope. Look for books at your local library. If you have access to a computer, check the Internet. Or contact a group that focuses on your specific problem. Accepting Change Change is hard for most people. Yet right now you may be facing many changes. What you eat or the way you work may change. Your moods, and even your symptoms, might vary from day to day. Although it isn't easy, learning to accept change can help you feel more in control. Taking Control Feeling you have control can make living with your condition easier. Discuss treatment options withyour health care provider. The more you know, the more active you can be in your care. Moving Forward You may wonder whether you will be able to do the things you've always done. That depends on your age, the condition you have, and your goals. To make the most of each day, try to build caring relationships, be active, and eat right. Also, do your best to keep a sense of humor. [facility], [address] [place] [address]. All rights reserved. This information is not intended as a substitute for professional medical care. Always follow your healthcare professional's instructions. Taking an Active Role in Your Medicines Take the time to learn about your medicine. For instance, why are you taking it? What does it do? Work with your doctor or other health care providers to get the answers you need. Talk to your pharmacist about how to take each medicine, and ask for a fact sheet on each one. Ask Questions About Your Medicine What is the name of the medicine? Why do I need to take it? When should I take it? How should I take it: with water? with food? on an empty stomach? How much do I take? What do I do if I miss a dose? What side effects could it cause and which ones should I call the doctor about? Are there any foods or medicines I should avoid while taking this medicine? Keeping track of your medications? Name of medicine: Taken for: Dose: Time(s) to take it: Take an Active Role Fill all your prescriptions at the same pharmacy. This keeps your medicine history in one place. Talk to the pharmacist. Make sure you understand how to take each medicine. Ask for a fact sheet about each one. Tell your doctor and pharmacist about all the prescription and edqy-dsp-oretvnw medicines you take.This includes vitamins and herbal remedies. Tell your doctor and pharmacist if you have any medical conditions or allergies to any medicine or food, or if you are or . Keep a list of all your medicines. Use the sample to the right as a guide for the type of information needed. 5396-8314 [facility], [address] [place] [address], [place] [address]. All rights reserved. This information is not intended as a substitute for professional medical care. Always follow your healthcare professional's instructions. documented in this encounter Progress Notes * Jasson Denney MD - 01/09/2024 2:33 PM EDT SUBJECTIVE: Afua Rosenbaum is a 83 year old female. Chief Complaint Patient presents with Hospital Follow-Up Hospital Follow-Up Recent Admission: Patient was recently admitted to [facility] 12/22/23. The date of discharge was 12/29/23. Discharge report received and reviewed. HPI: Brief Clinical History Ms. 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 Surgery was done by Dr. Pedro Peace without complications. She developed postoperative delirium and required re-intubation for 24 hours. Her delirium cleared after a few days of supportive care. She improved and resumed diet prior to discharge. No routine medications were changed. She has already seen surgery for her postoperative visit and met with Dr. Lu. Is going to start chemotherapy (FOLFOX) 01/13/24. Had her port put in yesterday by Dr. Peace. Held her aspirin and Plavix for port placement. She resumed aspirin but was wondering if she can resume the Plavix now or not. She believes she was told to hold it for the surgery. The port site was sore last night but feeling better now. Appetite is reduced but trying to eat. Bowels were loose at first but has had some constipation now. Started Miralax, which is helping. Is not having any surgical pain at this point and has not needed pain medications. Is having ongoing back pain, which is chronic. She saw pain medicine and is considering having injections done soon. The pain has been making it difficult to get her housework done but she has been doing in in short increments. Does not want home health or any caregivers. Her son helps her as well and takes her to appointments. Is checking her blood pressure and has never been as low as it is today. Yesterday was very tiring for her. Her port was done in the afternoon but she had not eaten all day and did not get home until5:30 so went all day without eating. She states she went to bed when she got home. She took all of her blood pressure medications today. Results for orders placed or performed in [...] Immature Granulocytes 0.04 0.00 - 0.20 K/uL Hemoglobin AIC Results: Lab Results Component Value Date/Time HEMOGLOBIN A1C - [facility] 6.1 (H) 03/20/2023 12:02 PM HEMOGLOBIN A1C - [facility] 6.0 (H) 03/20/2022 01:39 PM HEMOGLOBIN A1C - [facility] 6.1 (H) 11/01/2020 08:04 AM HEMOGLOBIN A1C - [facility] 5.9 (H) 05/02/2020 08:25 AM HEMOGLOBIN A1C - [facility] 5.9 (H) 11/09/2019 08:42 AM HEMOGLOBIN A1C - [facility] 5.9 (H) 05/12/2019 07:56 AM Patient Active Problem List Diagnosis Chronic ischemic [...] angioplasty with stent Coronary artery disease involving cantwell heart without angina pectoris Cardiac murmur Hiatal hernia Schatzki's ring Malignant neoplasm of left breast in female, estrogen receptor positive (HCC) Postherpetic neuralgia Encounter for antineoplastic chemotherapy Iron deficiency anemia Overlapping malignant neoplasm of colon (HCC) S/P right hemicolectomy Current Outpatient Medications Medication Sig Dispense Refill [...] Capsule by mouth every night at bedtime. Phenylephrine-Greene Butter 0.25-88.44 % Rectal Suppository Administer into the rectum as needed forHemorrhoids. Nitroglycerin 0.4 MG Sublingual Tablet Sublingual (Nitrostat) Place 1 Tablet under the tongue as needed. Rosuvastatin Calcium 20 MG Oral Tablet (Crestor) [...] mouth in the morning. 90 Capsule 1 Pantoprazole Sodium 20 MG [...] BY MOUTH EVERY DAY 180 Tablet 1 Ondansetron HCl 8 MG Oral Tablet (Zofran) Take 1 Tablet by mouth every 8 hours as needed for Nausea. 30 Tablet 3 Prochlorperazine Maleate 10 MG Oral Tablet (Compazine) Take 1 Tablet by mouth every 6 hours as needed for Nausea. 30 Tablet 3 Lidocaine-Prilocaine 2.5-2.5 % External Cream (Emla) APPLY TO SKIN OVER MEDIPORT & COVER 1HR PRIOR TO ACCESSING. 30 g 1 Metoprolol Tartrate 25 MG Oral Tablet (Lopressor) Take 1 Tablet by mouth in the morning and 1 Tablet before bedtime. 180 Tablet 3 Aspirin 81 MG Oral Tablet Delayed Release Take 1 Tablet by mouth in the morning. Clopidogrel Bisulfate 75 MG Oral Tablet (pLAVix) Take 1 Tablet by mouth in the morning. No current facility-administered medications for this visit. Current and discharge medications have been reconciled. Review of patient's allergies indicates: Allergen Reactions Adhesive Tape Latex Other reaction(s): rash/itchy OBJECTIVE: BP 99/53 | Pulse 84 | Temp 36 C (96.8 F) (Tympanic) | Resp 16 | Wt 66.4 kg (146 lb 6 oz) | MoA122% | BMI 22.93 kg/m | BSA 1.77 m Review Of Systems: Skin: pt denies, new or changing moles, pigmentation change, rash, scaling, itching, bruising, lumps or bumps, hair changes, nail changes Eyes: negative Ears/Nose/Throat: pt denies:, deafness, tinnitus, frequent URI's, sinus trouble Respiratory: pt denies:, cough, dyspnea on exertion, and +mild COPD Cardiovascular: pt denies:, palpitations, tachycardia, irregular heart beat, chest pain, exertionalchest pain or pressure, paroxysmal nocturnal dyspnea, and lower extremity edema Gastrointestinal: pt. denies:, dysphagia, nausea, blood in stool or black stools, +as per HPI Genitourinary: pt denies:, nocturia, dysuria, and frequency Musculoskeletal: +back pain Neurologic: pt denies:, headaches, syncope, and seizures Psychiatric: + depression Hematologic/Lymphatic/Immunologic: pt denies:, recurrent infections, immunodeficiency, and +anemia and cancer Endocrine: pt denies:, thyroid disorder, cold intolerance, heat intolerance, diabetes, and +prediabetes PHYSICAL EXAM: General: alert, no distress, well nourished, well developed Head: Normocephalic, No masses, lesions, [...] adenopathy, no bruits Heart: regular rate & rhythm and no gallops Lungs: chest symmetric with normal AP diameter, no chest deformities noted, no chest wall tenderness, lungs clear to auscultation, decreased breath sounds Abdomen: abdomen soft, non-tender, normal bowel sounds, no masses or organomegaly, and +well healedincisions of umbilical and LUQ areas Extremities: no edema, no clubbing, no cyanosis Neuro Exam: alert & oriented x 3 with fluent speech, no focal motor/sensory deficits, gait normal ASSESSMENT: Hospital discharge follow-up (Primary) - DISCH MED RECON CUR MED LIS Overlapping malignant neoplasm of colon (HCC)--s/p right hemicolectomy. Healing well from surgery. Starting chemotherapy next week. S/P right hemicolectomy HTN, goal below 130/80--BP low. Hold enalapril for BP <110/60. Moderate episode of recurrent major depressive disorder (HCC)--feeling somewhat depressed about having cancer again and having to do more chemotherapy (had chemo last year for breast cancer). Continue Cymbalta 60 mg daily. Declines dose change. Discussed seeing counselor but declines at this time. Chronic kidney disease, stage 3b (HCC)--stable Prediabetes--stable. Has been losing weight with recent illness. Encouraged her not to worry about a special diet at this time. COPD, mild (HCC)--stable. Was re-intubated after her surgery for 24 hours but breathing is improvedand baseline now. Follow Up: Return as scheduled. PLAN: Continue present medication(s): Patient education: Hold enalapril for BP <110/60. Suspect low as she has not eaten or drank wellthe last 2 days due to having port placed. She will check BP tomorrow before taking her medications. Encouraged her to eat anything that sounds good to her and stay hydrated. She is having labs next week before starting chemotherapy so will not check any today. Follow up as scheduled. I spent a total of 40-54 minutes (exact time 42 mins) minutes on the date of service in preparation, delivery, and documentation of the care provided to Afua Rosenbaum excluding any time spent in performance of separately billed services. Jasson Denney MD documented in this encounter Nursing Notes * Tiarra Agrawal LPN - 01/09/2024 2:14 PM EDT [facility] follow up Is to be on plavix but has to wait until Friday to see if she needs to continue it. Had port put in yesterday documented in this encounter Plan of Treatment Upcoming Encounters Date Type Department Care Team (Late st Contact Info) Description 01/12/2024 9:50 AM EDT Laboratory Laboratory Scenery [place] [address] [place] [phone] [place], Lab Scen[address] [facility] [place] [id number] 01/12/2024 12:45 PM EDT Imaging Radiology [address] [facility] [place] [address] 01/13/2024 10:15 AM EDT Hem/Onc Treatment Hematology/Oncology Treatment, [place] [address] [facility] [phone] [place], Chair [address] Hem Onc Sc[address] [place] [address] 02/10/2024 1:00 PM EDT Office Visit Family Medicine [address] [place] [phone] Kahlil Mooney CRNP [address] [place] [address] [place] [address] 04/05/2024 1:20 PM EDT Office Visit Dermatology [address] [place] [address] Melanie Frank PA-C [address] [place] [address] [place] [address] 05/18/2024 2:30 PM EST Telemedicine Genetics HemOnc, [facility] [address] [facility] [place] [address] Brigitte Steve, [place] [address] [address] 07/15/2024 3:30 PM EST Office Visit Cardiology [address] [place] [address] Inge Garcia PA-C [address] [place] [address] 07/23/2024 3:30 PM EST Office Visit Nephrology [address] [place] [address] Valery Urena PA-C [address] [place] [address] 08/17/2024 1:40 PM EST Office Visit Family Medicine [address] [place] [phone] Jasson Denney MD [address] [place] [address] [place] [address] Scheduled Procedures Name Priority Associated Diagnoses Date/Ti [...] 11/01/2020, Additional history exists GFR 03/31/2024 09/30/2023, 0206/2023, 06/30/2023, Additional history exists CKD PHOS USE SMARTSET 51275 09/29/202409/14, 09/01/2023, 07/25/2022, Additional history exists Albumin/Creatinine Ratio 09/30/202409/30/2 024, 06/30/2023, 07/25/2022, Additional history exists O2 ASSESSMENT COMPLETED IN PAST YEAR FOR COPD 11/24/2024 11/25/2023 CKD HGB USE SMARTSET 30537 11/30/202411/30, 12/01/2023, 10/13/2023, Additional history exists DXA [...] this encounter Medical Devices Implanted Type Area Filling Station Equipment Mechanic Device Identifier Shelf Expiration Date Model / Serial / Lot [place] Excluder Aaa Endoprothesis System-07/07/2019 Implanted:07/07/19 20 (Quantity not on file) Graft Description:Multiple implant s from system on same day [id number] Cordis Bx Velocity Cardiac Stent-06/02/2002 Implanted:06/02/20 02 (Quantity not on file) Stent CORDIS LEXA BX VELOCITY [id number] / / [id number] Cordis Bx Velocity Cardiac Stent-01/03/2003 Implanted:01/04/20 03 (Quantity not on file) Stent CORDIS LEXA VELOCITY [id number] / / [id number] documented as of this encounter Visit Diagnoses Diagnosis Hospital discharge follow-up- Primary Other follow-up examination Overlapping malignant neoplasm of colon (HCC) S/P right hemicolectomy Other postprocedural status HTN, goal below 130/80 Unspecified essential hypertension Moderate episode of recurrent major depressive disorder (HCC) Chronic kidney disease, stage 3b (HCC) Prediabetes Other abnormal glucose COPD, mild (HCC) Chronic airway obstruction, not elsewhere classified documented in this encounter Advance Directives * [...] patient or by statute hierarchy) Care Teams Film Sound Engineer Relationship Specialty Start Date End Date Jasson Denney MD [address] [place] [address] [place] [id number] PCP - General Family Medicine 03/22/16 documented as of this encounter"
[2024-01-16] MEDS ORDERED: ATROPINE SULFATE 0.1 MG/ML 10ML SYR IV ONE (20:49)
--- NOTE | 2024-01-16 20:51 | Emergency Department Note ---
ED Visit Note Responded to room 106 in the ICU for CODE BLUE. CPR ACLS in progress by ICU staff as well as hospitalist team. Patient being bagged and ventilated upon arrival. Some suctioning of the oropharynx due to secretions was performed. Patient was intubated without need for sedation or paralysis by DOREEN Melgar with video laryngoscopy without difficulty in the first attempt under my supervision. CPR was continued and ACLS services by the code/ICU team. Bilateral breath sounds notable. No obvious complications. .
--- NOTE | 2024-01-16 20:52 | Cardiac Catheterization ---
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 Cardiac Status Clinical evaluation leading to the procedure CAD Presenation: STEMI Anginal Classification: CCS IV Heart Failure: No Cardiogenic Shock within 24 Hours: No Cardiac Arrest within 24 Hours: No Imaging Studies Past 6 Months: No Coronary Anatomy Dominant: Right Left Main (% Stenosis): Normal LAD (% Stenosis): Proximal (30 to 40% diffuse with calcium) and Mid (Prior stent patent, plus calcification, up to 50 to 60% stenosis) D1 (% Stenosis): Normal D2 (% Stenosis): Ostial (Diffuse severe) Circumflex (% Stenosis): Normal OM1 (% Stenosis): Normal RCA (% Stenosis): Proximal (Less than 20%) and Mid (20 to 30% with calcium) R PDA (% Stenosis): Normal R PL1 (% Stenosis): Normal Ramus (% Stenosis): Ostial (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, distally fills late via left to left collateralization) Diagnostic Physicians Name: Adeel Winchester MD, PhD Closure Device Percutaneous Entry Location: Radial and femoral Closure Device: Angio-Seal and Radial Band Recommendations: Medical Therapy and/or Counseling Cardiac Cath Procedure Full Procedure Date January 16, 2024 Pre-Procedure Diagnosis Pre-Procedure Diagnosis: STEMI AUC Score AUC Score: 09 Post-Procedure Diagnosis Post-Procedure Diagnosis: Severe CAD Procedure(s) Performed Procedure(s) Performed: Coronary Angiography and Ultrasound Guided Vascular Access Desk Sergeant Adeel Winchester MD, PhD Estimated Blood Loss Estimated Blood Loss: 10 cc Medication(s) Medication(s): Fentanyl, Heparin, Lidocaine 1%, Nicardipine, Nitroglycerin and Versed Summary of Findings Brief description: Patient was brought to the cardiac catheterization suite where she was shaved and prepped in a sterile fashion. Sedated using IV Versed and fentanyl. Soft tissues of the right wrist were anesthetized using 2 mL of 1% Xylocaine. The right radial artery was accessed with a modified Seldinger technique and a 6 Jordanian radial artery glide sheath was placed. We attempted to advance diagnostic catheter but the guidewire had significant difficulty advancing to the innominate artery. Under fluoroscopic evaluation patient was seen to have multiple vascular loops. Therefore we abandoned further attempts from the radial artery approach. Soft tissues of the right groin were anesthetized using 10 mL of 1% Xylocaine. Using ultrasound for guidance (image saved), the right femoral artery was accessed with a micropuncture kit. The micropuncture sheath was then exchanged over an 0.035 J-tip wire for a 6 Jordanian femoral artery sheath. All catheters were advanced and exchanged at that point over a J-tip wire. Of note, patient had extensive aortobifem grafting which made it very difficult to advance equipment. Left coronary angiography was performed in orthogonal views with a 5 Jordanian JL 4 diagnostic catheter. Right coronary angiography was performed in orthogonal views with a 5 Jordanian JR4 diagnostic catheter. Left ventriculogram was not performed secondary to poor renal function. Diagnostic catheters were removed. Right femoral artery angiography was performed to evaluate for closure. Findings were favorable, therefore, the femoral artery sheath was exchanged for a 6 Jordanian Angio-Seal closure device. This was deployed in the recommended fashion. We obtained immediate hemostasis. Then, the radial artery sheath was removed and hemostasis was obtained using the TR band. Patient remained hemodynamically stable. She had no chest pain. She was therefore admitted to the ICU for further workup and management. This ended the case. Coronary angiography findings: MEW-jbbgj-xxjvamk vessel which branches into the LAD, ramus, and circumflex. It has mild luminal irregularities. LAD-this is large caliber and transapical. Proximal segment with diffuse calcification and 30 to 40% stenosis. The mid segment has a previously placed stent and calcification. It appears to be up to 50 to 60% narrowed. The distal vessel has diffuse mild less than 20-30% disease. There is a large branching first diagonal with mild scattered plaques. There is a small caliber severely diseased D2. Ramus-this is 100% occluded just after its ostium. It appears to take off more from the diagonal than the circumflex in most views. It fills late distally via left to left collateralization Circumflex-this is small and nondominant. Essentially consists of an OM1. There is no significant disease. IOR-qvpaz-nrbitsz and dominant vessel. Proximally there is diffuse mild calcification and less than 20% stenosis. Mid segment with 20 to 30% stenosis. Distally there is mild luminal irregularities. She has a large multi branching posterolateral with mild luminal irregularities in the medium to large caliber PDA which is tortuous and has mild luminal irregularities. Note: There is no staining in the left system to suggest acute thrombosis. No culprit lesion for intermittent ST elevations and chest pain. Summary: 1. Patient has diffuse mild to moderate coronary disease with significant calcification. She has a chronic total occlusion of the ramus branch. No culprit lesion consistent with acute MN. 2. Noted poor ventricular wall motion particularly near the apex. Recommend echocardiogram be obtained for possible Takotsubo cardiomyopathy. 3. Continue guideline directed medical therapy for secondary prevention of coronary disease including aspirin 81 mg daily, Plavix 75 mg daily, metoprolol tartrate 25 mg p.o. twice daily, isosorbide mononitrate 30 mg for anginal relief, and enalapril 20 mg daily. Will need to optimize her electrolytes and renal function. May utilize short acting nitrates for any recurrent angina and it is imperative that we maintain her blood pressure in normal levels. Hemodynamics Rest Ao:: 158/95 mmHg Final Ao: 142/97 mmHg LV: Not performed Recommendations Recommendations: Medical Therapy and/or Counseling Radiation Exposure (mGy) 825 mGy, fluoroscopy time 4.9 minutes Contrast (mls) 80 Anesthesia 1 mg Versed, 25 mcg fentanyl IV. Start time 1902, end time 1933 Procedural Complication(s) None Disposition ICU I attest to the content of the Intraoperative Record and any orders documented therein. Any exceptions are noted below. [facility] Procedure Codes Cardiac Catheterization Procedure 1: Cardiovascular Cath Procedures: 37532 Coronaries Therapeutic Services & Ancillary Procedure 2: Cardiovascular Tx and Anc Procedures: 44890 Ultrasonic Guidance Vascular Access Moderate Sedation Procedure 1: Sedation/Anesthesia: 07917 Mod Sedation by the same physician;Init15 Min Child Age 5 & Up (Initial 15 minutes, start time 1902) Procedure 2: Sedation/Anesthesia: 72947 Mod Sedation by the same physician; Ea [id number] Minutes (Additional 16 minutes, end time 1933) PG Care Time/CCT Total # of Minutes Spent Total Time Spent with Patient: Total time spent is greater than 50% in coordination of care (as documented) at patient's floor/unit and/or counseling patient:
[2024-01-16] MEDS ORDERED: ENALAPRIL MALEATE 10 MG TAB PO SCH (21:00)
[2024-01-16] MEDS ORDERED: ICU Protocol for HYPERglycemia SCH (21:00)
[2024-01-16] MEDS ORDERED: METOPROLOL TARTRATE 25 MG TAB PO SCH (21:00)
--- NOTE | 2024-01-16 21:23 | Communication Note ---
Date of Service: January 16, 2024 Cardiac Arrest - CODE BLUE NOTE CODE BLUE called secondary to bradycardia with lost of pulse- previous BPs were in the 160-180 range Arrived at bedside with CPR being initiated by nursing staff - HR 30s no spontaneous movements noted and no spont respirations. - Crash cart was obtained- pads were placed on the patient while CPR was being continued, and oxygen was being delivered via BVM. Once pads were on the patient, CPR was held with initial rythm wide and irregular - Vfib for which patient was then immediately shocked x1 with 200 joules. - Epinephrine was administered and CPR was immediately restarted - Patient was then prepared for intubation for next break in CPR See separate intubation note- - intubated x1 with caliometric change and equal breath sounds - Rythm remained bradycardic with PEA HR- 30s without a pulse- Patient then received epinephrine, Atropine - Continued CPR , re-verification of ETT with auscultation, NAHCO3, CACL, Epinephrine administered - Labs reviewed with no significant treatable abnormalities, cardiac cath was reported as clean with no acute blockage, CTA of chest on arrival was negative for PE, called pharmacy for possible F5U toxicity kit with cehmo history- not available - Ultrasound was used to evaluate for cardiac squeeze and eval for pericardial effusion, with no real significant wall motion/contraction noted and remained without pulse - Epinephrine drip was initiated and prepped patient for central venous access - patient received another dose at timed interval of epinephrine and HCO3 - Following 5th round of CPR and medications the decision at that time was made to halt resuscitation efforts as patient remained without pulse or signs of responding to therapies. Attending Physician Dr. Lopez was at bedside as well, no further therapies recommended and TOD was pronounced at 2054, Dr. Silva also present at time of termination of efforts with no other recommendations for therapeutics. Son was updated in person by Dr. Dejesus, myself, and Dr. Lopez- obvious and appropriate grieving response. See Cardiac Arrest Record for complete official times and therapies Jesus LAI ([facility]-) CC Time direct cardiac resuscitation 30 min
--- NOTE | 2024-01-16 21:39 | Procedure Note ---
Procedure Note Date of Service January 16, 2024 Note INTUBATION PROCEDURE NOTE: Proceduralist: Jesus Melgar ICU Attending: ARETHA Cardiac arrest: Emergent intubation for resuscitation patient FULL CODE Patient was evaluated and required intubation for Cardiac Arrest Sedative agent used: NONE Paralysis agent used: NONE The patient was prepared in the appropriate fashion. dentures were removed, patient was preoxygenated with BVM ventilation while CPR was in progress. The patient was easily ventilated using [id number]. At Appropriate time pause, A 7.5 Scottish endotracheal tube was placed under direct video-laryngoscopy at 24 the lip, with no resistance or trauma noted. The stylette was removed and balloon was inflated with 10mL of air. Appropriate Colorimetric change was appreciated. Bilateral breath sounds were heard without air sounds in the abdomen. Dr. Nguyen from [facility] for cardiac arrest response was present for the entire procedure. Patient tolerated the procedure well and there were no immediate complications. Jesus LAI (ACNP-BC) Coding CPT Codes Resuscitation - Resuscitation: 16376 Endotracheal Intubation, emergency ([id number]) [facility] Procedure Codes (Charges) Resuscitation Resuscitation: 26793 Endotracheal Intubation, emergency
--- OUTSIDE RECORDS SUMMARY | 2024-01-16 22:54 | External Medical Summary | Summary of Care ---
Author Name Unknown Organization [facility] Address [address] [facility] [place] [address] Phone [phone] Care Team Providers Care Tube Roller Name Role Phone Jasson Denney MD Primary Care Provide r Reason for Visit * Reason Onset Date Comments Follow Up 01/15/2024 Encounter Details Date Type Department Care Team (Late st Contact Info) Description 01/15/2024 Telephone Hematology/Oncology [facility] [place] [address] [facility] [phone] Abena Xiong CRNP [address] [place] [address] Follow Up Allergies Active Allergy Reactions Criticality Noted Date Comments Adhesive Tape 04/11/2006 Latex 06/06/2022 Other reaction(s): rash/itchy documented as of this encounter (statuses as of 01/16/2024) Medications Medication Sig Dispensed Refills Start Date [...] mouth every night at bedtime. 07/12/2019 Active Phenylephrine-[place] Butter 0.25-88.44 % Rectal Suppository Administer into [...] as of this encounter (statuses as of 01/16/2024) Active Problems Problem Noted Date Diagnosed Date [...] as of this encounter (statuses as of 01/16/2024) Resolved Problems Problem Noted Date Diagnosed Date [...] as of this encounter (statuses as of 01/16/2024) Immunizations Name Administration Dates Next Due COVID-19 mRNA, LNP-s, No Pre serve, 2-Dose Series (eFuneral) 08/11/2020,07/21/2020 COVID-19, LNP-s, No Preserve , Dusty-sucrose, Ages 12+ (Pfizer) 02/05/2022,08/07/2021 COVID-19, MRNA-LNP, 23-24, P F, 30 MCG/0.3 mL, 12 YRS AND ABOVE, IM [facility] 05/13/2023 Covid-19, Mrna, Lnp-s, Pf, B [...] Telephone Encounter - Ty Alonso RN - 01/16/2024 1:41 PM EDT Called patient and spoke with her son Gus. He states he spoke with his mom this morning who is complaining of dizziness, chest pain, and low blood pressure. Advised that she needs to be evaluatedin the ER. He verbalized understanding and stated he would take her to [facility]. Advise I would call [facility] to let them know. Called [facility], spoke with Elke, report given. * Telephone Encounter - Ty Alonso RN - 01/15/2024 3:33 PM EDT Called [...] Description 01/26/2024 10:00 AM EDT Laboratory Laboratory, [facility] [address] [facility] [place] [phone] [facility] [address] [facility] [place] [address] 01/27/2024 12:00 PM EDT Office Visit Hematology/Oncology [facility] [address] [place] [phone] Abena Xiong CRNP [address] [facility] [place] [address] 01/27/2024 1:30 PM EDT Hem/Onc Treatment Hematology/Oncology Treatment, [place] [address] [place] [phone] Daria, Chair [address] Hem Onc [address] [place] [address] 02/02/2024 3:30 PM EDT Office Visit Nephrology [address] [place] [address] Valery Urena PA-C [address] [facility] [place] [address] 02/10/2024 1:00 PM EDT Office Visit Family [address] [phone] Kahlil Mooney CRNP [address] [place] [address] [place] [address] 04/05/2024 1:20 PM EDT Office Visit Dermatology [address] [place] [address] Melanie Frank PA-C [address] [place] [address] [place] [address] 05/18/2024 2:30 PM EST Telemedicine [facility], [place] [address] [facility] [place] [address] Brigitte Leigh, [place] [address] [address] 07/15/2024 3:30 PM EST Office Visit Cardiology [address] [place] [address] Inge Garcia PA-C [address] [facility] [address] 08/17/2024 1:40 PM EST Office Visit Family [address] [phone] Jasson Denney MD [address] [place] [address] [place] [address] Scheduled Procedures Name Priority Associated Diagnoses Date/Ti [...] Additional history exists CKD PHOS USE SMARTSET 34066 09/29/202409/14, 09/01/2023, 07/25/2022, Additional history exists Albumin/Creatinine Ratio 09/30/2024 024, 06/30/2023, 07/25/2022, Additional history exists O2 ASSESSMENT COMPLETED IN PAST YEAR FOR COPD 11/24/2024 11/25/2023 CKD HGB USE SMARTSET 93838 01/11/202501/11, 01/12/2024, 12/01/2023, Additional history exists DXA [...] this encounter Medical Devices Implanted Type Area Lower In Supervisor Device Identifier Shelf Expiration Date Model / Serial / Lot Voca Excluder Aaa Endoprothesis System-07/07/2019 Implanted:07/07/19 20 (Quantity not on file) Graft Description:Multiple implant s from system on same day [id number] Cordis Bx Velocity Cardiac Stent-06/02/2002 Implanted:06/02/20 02 (Quantity not on file) Stent CORDIS LEXA BX VELOCITY [id number] / / [id number] Cordis Bx Velocity Cardiac Stent-01/03/2003 Implanted:01/04/20 03 (Quantity not on file) Stent CORDIS LEXA VELOCITY [id number] / / [id number] documented as of this encounter Advance Directives [...] patient or by statute hierarchy) Care Teams Tube Roller Relationship Specialty Start Date End Date Jasson Denney MD [address] [place] [address] [place] [phone] PCP - General Family Medicine 03/22/16 documented as of this encounter
--- NOTE | 2024-01-16 23:15 | Electrocardiogram Report ---
Test Reason : Blood Pressure : / mmHG Vent. Rate : 074 BPM Atrial Rate : 074 BPM P-R Int : 154 ms QRS Dur : 080 ms QT Int : 424 ms P-R-T Axes : 064 020 269 degrees QTc Int : 470 ms Normal sinus rhythm Possible Anterior infarct , age undetermined ST elevation, consider lateral injury pattern Abnormal ECG When compared with ECG of 27-DEC-2023 23:34, Premature ventricular complexes are no longer Present Borderline criteria for Anterior infarct are now Present ST elevation has replaced ST depression in Lateral leads T wave inversion now evident in Anterolateral leads Confirmed by Pablo Townsend ([id number]) on 01/16/2024 11:15:00 PM Referred By: Confirmed By:Pablo Townsend
--- NOTE | 2024-01-17 08:25 | Discharge Summary ---
Date of Service January 17, 2024 Admission HPI Per Admitting Provider Patient is 83 year old female with PMH HTN, dyslipidemia, COPD, CKD III, CAD s/p stent, prediabetes, history AAA repair, history left breast cancer s/p mastectomy, current colon cancer s/p hemicolectomy on 12/22/[address] Pedro Peace, currently receiving fluorouracil last received on 01/13/2024 presented to ER with c/o CP. History obtained from patient, patient's son and inpatient and outpatient chart review. Recent hospitalization [facility] 12/22/2023-12/29/2023, had presented for planned hemicolectomy for known colon cancer. Postoperatively patient developed significant delirium initially treated with benzodiazepines, antipsychotics and subsequently had hypercarbic respiratory failure, requiring ICU and intubation for approximately 24 hours. Was extubated and transition to room air however her delirium persisted. Benzos and antipsychotics were held and eventually patient's delirium slowly cleared and was discharged home with family assistance. Outpatient note reviewed and was at oncology clinic 01/15/2024 received NSS, Zofran as was having decreased appetite, dizziness, lightheadedness with standing and nausea and vomiting after receiving chemo on 01/13/24. Patient states went to bed last night while in bed had sudden onset of left chest pain with radiation to left shoulder with associated shortness of breath. Patient describes pain as aching and heaviness. She reports pain persisted the entire night into this morning around 8 or 9:00 AM. Initially reports thought may be indigestion and tried Pepcid without relief. Patient states was unable to sleep secondary to pain. Denies taking aspirin or nitro today. Denies palpitations, diaphoresis. Patient called oncology clinic today and reported had chest pain last night and was directed to present to ER today. States still lightheaded with walking today. Reports overall her nausea has improved and hasn't had further vomiting. Having "mushy" BMs since surgery and intermittently uses Imodium with stool firming up. Denies abdominal pain, melena, hematochezia, hematemesis. Denies fever/chills, diaphoresis, vision changes, neck pain, cough, sore throat, rhinorrhea, extremity weakness, extremity edema, rashes, urinary symptoms. Today Initially during ER presentation patient had denied any chest pain or shortness of breath. Initial EKG with diffuse T wave changes noted which is new from EKG on 12/27/2023 per my interpretation. During ER course patient complaining of some mild sternal chest discomfort and heartburn. New EKG obtained and ST elevation with anterior and lateral leads. Heart alert called. Per chart review: 12/25/2023 echo: EF greater than 70%, moderate concentric LVH, normal LV wall motion, grade 1 diastolic dysfunction, moderate aortic valve sclerosis without significant stenosis, heavy focal calcification posterior mitral valve annulus with mild restriction and posterior mitral valve leaflet mobility, no mitral stenosis, trace MR, trace TR 01/05/24: Per review of outpatient notes cardiology had recommended that patient could stop Plavix and continue aspirin 81 mg from cardiac standpoint. Patient states had held Plavix for surgeries and port placement. States that she resumed Plavix 01/10/24 and is not taking aspirin. Principal Diagnosis chest pain cardiomyopathy colon cancer Discharge Data Allergies Allergy/AdvReac Type Severity Reaction Status Date / Time adhesive tape Allergy Intermediate rash/itchy Verified 01/16/24 17:41 latex Allergy Intermediate rash/itchy Verified 01/16/24 17:41 Consultations 01/16/24 17:36 ED Decision to Admit Stat 01/16/24 20:21 Consult Cardiology Routine Procedures Performed Operation Date: 01/16/24 18:45 Actual Procedures p Cineradiography w/Routine Exam - Adeel Winchester MD, PhD p Cath, Coronaries ONLY (no LV) - Adeel Winchester MD, PhD Ordered Studies 01/16/24 17:09 CT angio chest PE protocol Stat 01/16/24 18:44 CL Cath Imgs for PACS use only Stat Hospital Course (1) Chest pain: Patient with hx of CAd, Breast cancer, copd, ckd stage 3, HTn recent dx of colon cancer s/p hemicolectomy 12/22/23 and currently on fluorouracil last received on 01/13/24 came with chest pain and found to have elevated troponin and st elevations. 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 Patient was transferred to ICU for close monitoring. Initially was doing fine but then patient suddenly became bradycardic, unresponsive and lost pulse. Code blue was called.CPR was initiated and when pads placed was in V fib and one s hock was delivered.CPR resumed ,Epinephrine and amiodarone was given and patient was intubated.Son was called and notified and as son was in parking lot came to ICU. Cardiology was notified.Code was run per ACLS protocol as mentioned in critical care notes but unfortunately patient didn't recover and was pronounced at 2054 on January 16 2024.Likely cause chemo induced cardiomyopathy contemplated . Earlier CTA chest was negative for PE.Cardiology, Critical care and myself updated son of the events and unfortunate patient demise. Total Time Total Time Spent Total Time Spent (In Minutes): 3ominutes Discharge Plan Discharge Items Patient Disposition: Other Date/Time: 01/16/24 20:55
[2024-01-17] MEDS ORDERED: ATORVASTATIN 40 MG TAB PO SCH (09:00)
[2024-01-17] MEDS ORDERED: CLOPIDOGREL BISULFATE 75 MG TAB PO SCH (09:00)
[2024-01-17] MEDS ORDERED: ASPIRIN 81 MG ECTAB PO SCH (09:00)
[2024-01-17] MEDS ORDERED: ISOSORBIDE MONO EXTENDED REL 30 MG TABCR PO SCH (09:00)
--- NOTE | 2024-01-18 07:07 | Electrocardiogram Report ---
Test Reason : Blood Pressure : / mmHG Vent. Rate : 077 BPM Atrial Rate : 077 BPM P-R Int : 164 ms QRS Dur : 080 ms QT Int : 406 ms P-R-T Axes : 067 035 -17 degrees QTc Int : 459 ms Normal sinus rhythm Anterior infarct (cited on or before 16-JAN-2024) Lateral injury pattern ACUTE NC / STEMI Abnormal ECG When compared with ECG of 16-JAN-2024 18:17, (unconfirmed) Serial changes of evolving Anterior infarct Present Confirmed by Neymar Greenfield ([id number]) on 01/18/2024 7:07:28 AM Referred By: REFERRED SELF Confirmed By:Evens Greenfield
--- NOTE | 2024-01-18 07:08 | Electrocardiogram Report ---
Test Reason : Blood Pressure : / mmHG Vent. Rate : 080 BPM Atrial Rate : 080 BPM P-R Int : 160 ms QRS Dur : 084 ms QT Int : 416 ms P-R-T Axes : 078 072 051 degrees QTc Int : 479 ms Normal sinus rhythm Anterior infarct (cited on or before 16-JAN-2024) Lateral injury pattern ACUTE SD / STEMI Abnormal ECG When compared with ECG of 16-JAN-2024 15:06, ST elevation now present in Anterior leads T wave inversion no longer evident in Inferior leads T wave inversion less evident in Anterior leads Confirmed by Neymar Greenfield ([id number]) on 01/18/2024 7:08:19 AM Referred By: REFERRED SELF Confirmed By:Evens Greenfield
== END 2024-01-16 22:15 | disposition expired | DRG 287 ==
LOC: ED 14:48 → OR 18:51 → 1E 18:52
PROC: CLB.CCO (2024-01-16 18:45)